=== PATIENT | male | born 1945 | race Caucasian/White ===

== ENCOUNTER → 2018-03-09 09:26 | Outpatient (CLI) | payer MEDICARE, SELFPAY ==
[2018-03-09 12:30] LABS: Anion Gap 6 (5-15); BUN 18 mg/dL (7-18); BUN/Creat Ratio 18.3 RATIO (10-20); Calcium,Total 8.8 mg/dL (8.5-10.1); Chloride 107 mmol/L (98-107); Cholesterol 166 mg/dL (200); Creatinine, Serum 0.98 mg/dL (0.70-1.30); EST Glomerular Filtration Rate 80 mL/min (>60); Est Glom Filt Rate - Afr Amer 96 mL/min (>60); Glucose 101 mg/dL (74-106); High Density Lipoprotein 43 mg/dL; PSA,Total - Annual Screen 1.15 ng/mL (0.00-4.00); Potassium 4.9 mmol/L (3.5-5.1); Sodium Level 141 mmol/L (136-145); Triglycerides 83 mg/dL; Very Low Density Lipoprotein 17 mg/dL (5-40)
== END ==
PROVIDERS: Family Provider Family Medicine; PCP Family Medicine; Visit Provider Family Medicine
DX: I10 Essential (primary) hypertension (principal); E78.00 Pure hypercholesterolemia, unspecified; Z12.5 Encounter for screening for malignant neoplasm of prostate
CPT/HCPCS: 36415; 80048; 80061; 84153; G0103

== ENCOUNTER → 2018-06-20 11:03 | Outpatient (CLI) | payer MEDICARE, SELFPAY ==
[2016-12-06 05:59] VITALS: BMI 25.0
--- NOTE | 2018-06-20 11:09 | RAD_ITS ---
STUDY: X-RAY - LEFT KNEE REASON FOR EXAM: Male, 72 years old. Osteoarthritis TECHNIQUE: 3 view(s) of the knee. COMPARISON: None. FINDINGS: Normal visualized distal femur. Normal visualized proximal tibia and fibula. Normal proximal tibiofibular articulation. There are mild degenerative changes with joint space narrowing of the medial knee compartment. Normal lateral femorotibial compartment. Normal patellofemoral articulation. The soft tissue structures are unremarkable. RAD/Knee 3 Views IMPRESSION: Mild degenerative changes with joint space narrowing of the medial knee compartment. Electronically Signed: Hong Deluca MD at 20:53 EST , Service support ,
--- NOTE | 2018-06-20 11:09 | RAD_ITS ---
STUDY: X-RAY - RIGHT KNEE REASON FOR EXAM: Male, 72 years old. Osteoarthritis TECHNIQUE: 3 view(s) of the knee. COMPARISON: None FINDINGS: Normal visualized distal femur. There is a well-defined 7 mm sclerotic focus of the medial aspect of the proximal tibial metaphysis most likely representing benign process such as bone island. Normal proximal tibiofibular articulation. There are minimal degenerative changes with joint space narrowing of the medial knee compartment. Normal lateral femorotibial compartment. Normal patellofemoral articulation. The soft tissue structures are unremarkable. RAD/Knee 3 Views IMPRESSION: Minimal degenerative changes with joint space narrowing of the medial knee compartment. Small sclerotic focus of the medial proximal tibial metaphysis most likely representing benign process such as bone island. Electronically Signed: Hong Deluca MD at 20:52 EST , Service support ,
== END ==
PROVIDERS: Family Provider Family Medicine; PCP Family Medicine; Referring Provider Family Medicine; Visit Provider Family Medicine
DX: M17.0 Bilateral primary osteoarthritis of knee (principal)
CPT/HCPCS: 73562

== ENCOUNTER → 2018-10-16 14:07 | Outpatient (CLI) | payer MEDICARE, SELFPAY ==
--- NOTE | 2018-10-16 14:10 | RAD_ITS ---
STUDY: X-RAY CHEST REASON FOR EXAM: Male, 73 years old. TECHNIQUE: 2 views COMPARISON: December 06, 2016. FINDINGS: The heart and mediastinum are within normal limits. There is mild tortuosity of the thoracic aorta. Both lung blank and costophrenic angles are clear. No pleural effusion or pneumothorax. The trachea is in the midline. The visualized bony structures are intact. The visualized upper abdomen is unremarkable RAD/Chest PA and Lateral IMPRESSION: Negative chest unchanged since 06 December 2016 Electronically Signed: Chance Mobley, at 16:23 EDT Tel , Service support ,
== END ==
PROVIDERS: Family Provider Family Medicine; PCP Family Medicine; Referring Provider Family Medicine; Visit Provider Family Medicine
DX: J15.9 Unspecified bacterial pneumonia (principal)
CPT/HCPCS: 71046

== ENCOUNTER 2019-05-13 00:20 | Emergency (ER) | payer MEDICARE, SELFPAY ==
[2019-05-13 00:21] VITALS: BP 201/96; PULSE 53; RESP 14; TEMP 36.6; O2SAT 97; BMI 25.9
[2019-05-13 00:25] VITALS: BP 183/89
--- NOTE | 2019-05-13 00:44 | ED.VIS.GI ---
History of Present Illness Chief Complaint: Flank Pain Informant: Patient - Abdominal Pain/Flank Pain Onset: Hours - 2 Context: Sudden Onset Timing: Continuous Quality: Aching Location: Left Flank Current Severity: Moderate Maximum Severity: Moderate Worsened by: Nothing Relieved by: Nothing - Nausea/Vomiting/Emesis GI Symptom: Nausea. Negative for: Vomiting - Diarrhea/Melena/Hematochezia GI Symptom: Negative for: Diarrhea, Melena, Hematochezia Associated Symptoms: Negative for: Dysuria, Frequency, Hematuria, Urgency Narrative: Sudden onset of pain in his left flank after he felt some mild discomfort in his suprapubic area that is now gone. The pain is been constant and not colicky. He has had multiple kidney stone procedures to remove them but is also passed others. He has tried nothing for the pain yet. He denies any syncope or presyncope or other symptoms such as fevers but he has had some nausea. Prior similar symptoms: Yes - Multiple prior kidney stones - Past Medical History (1) Hypertension Status: Chronic (2) Hyperlipidemia Status: Chronic (3) Kidney stones Status: Chronic Past Medical History - Allergies and Home Meds Allergies/Adverse Reactions: Allergies No Known Allergies Allergy (Verified 05/13/19 00:21) Primary Care Physician: Kiran Shaffer MD [STAFF PHYSICIAN] - 3-5 Days Marcel Santos MD [Primary Care Provider] - Surgical History: herniorrhaphy, - - Kidney stone removal Smoking Status: Never smoker Drugs: None Review of Systems General: Denies: Chills, Fever, Sweats Eyes: Denies: Visual changes - bilaterally, Diplopia ENT: Denies: Rhinorrhea, Sore throat Cardiovascular: Denies: Chest pain, Palpitations Respiratory: Denies: Dyspnea, Cough, Dyspnea on exertion Gastrointestinal: Reports: Abdominal pain - Resolved, Nausea. Denies: Vomiting, Diarrhea, Melena, Hematochezia Genitourinary: Denies: Dysuria, Hematuria, Frequency Musculoskeletal: Reports: Back pain. Denies: Extremity Pain Skin: Denies: Rash, Wounds Neurological: Denies: Headache, Weakness, Numbness Physical Exam Vital Signs/Narrative: Vital Signs Temp Pulse Resp BP Pulse Ox 05/13/19 00:25 183/89 H 05/13/19 00:21 97.9 F 53 L 14 201/96 H 97 Inital Vital Signs reviewed: Yes General: Well nourished, Well developed, No Acute Distress - Well-appearing Head: Normocephalic, Atraumatic Eyes: Perrl, EOMI ENT: Moist mucous membranes, No rhinorrhea Neck: Supple, Nontender Cardiovascular: Regular rate, Regular rhythm, No murmurs Respiratory: No distress, CTA bilaterally, Chest nontender Abdomen: Soft, Nontender, Nondistended, Normal bowel sounds. Negative for: Pulsatile mass Back: Nontender, Normal Inspection. Negative for: CVA tenderness Extremities: Nontender, No edema Skin: Normal color, No rash, No Trauma Neurological: Alert, Oriented x3, Cranial nerves II-XII grossly intact, Normal Strength, Normal Sensation, Normal Gait Psychological: Normal affect, Normal Mood Diagnostic/Tx/Re-eval Impressions Abdomen/Pelvis CT 05/13/19 01:04 IMPRESSION: Mild left hydronephrosis due to a 6.5 mm stone within the proximal left ureter, a few centimeters below the AP junction. Multiple bilateral intrarenal cysts as described above. Punctate stones within the left kidney. Questionable left-sided colitis, clinical correlation recommended. No acute appendicitis or bowel obstruction. Electronically Signed: Tana Tejada MD at 1:52 EST , Service support , 05/13/19 01:04 CT Abd [Abdomen/Pelvis without Cont] [CT] Stat Laboratory Results 05/13/19 00:30 Urine Color Yellow Urine Clarity Cloudy Urine pH 5.0 Ur Specific [place] 1.025 Urine Protein 30 H Urine Glucose (UA) Normal Urine Ketones Negative Urine Occult Blood 250 H Urine Nitrite Negative Urine Bilirubin Negative Urine Urobilinogen Normal Ur Leukocyte Esterase 25 H Urine RBC 25-50 SEEN Urine WBC 0-5 SEEN Ur Squamous Epith Cells 0 SEEN Urine Bacteria RARE Urine Mucus 0 SEEN - Medical Decision Making Urinalysis shows no acute infection. He has a 6.5 mm left proximal ureteral stone, which may or may not pass on its own. However, after only an injection of Toradol and some oral Zofran he is feeling much better and is comfortable driving himself home since his pain is well controlled. He will be given a prescription for Percocet, urine strainers to go, and advised to follow-up with his urologist after the weekend if he does not pass the stone. We discussed reasons to return, he is comfortable with that plan. Of note his blood pressure was 200 systolic upon arrival. After treating his pain it is down to 180. He is advised to take his blood pressure medication when he gets home and to follow-up for recheck. ED Disposition - Plan for ED Patient: Disposition: Home or Assisted Living Diagnosis: Ureteral colic, Urolithiasis Instructions: KIDNEY STONE w/ Colic Prescriptions: Oxycodone HCl/Acetaminophen [Percocet 5/325] 1 tab PO Q6H PRN PRN 3 Days #12 tab PRN Reason: Pain Prescription Printed Referrals: Marcel Santos MD [Primary Care Provider] - Kiran Shaffer MD [STAFF PHYSICIAN] - 3-5 Days
[2019-05-13] MEDS: Ondansetron ODT 4 MG Tablet 8 MG PO (00:59)
[2019-05-13] MEDS: Ketorolac 30 MG/ML Syringe IM (01:00)
--- NOTE | 2019-05-13 01:04 | CT_ITS ---
STUDY: CT ABDOMEN AND PELVIS WITHOUT CONTRAST REASON FOR EXAM: Male, 73 years old. LT FLANK PAIN SINCE 830PM -- HX:KIDNEY STONES WITH RETRIVAL,HLD,HTN,HERNIA REPAIR RADIATION DOSAGE (If Supplied By Facility): CTDIvol = ( 9.25 ) mGy, DLP = ( 443.59 ) mGycm TECHNIQUE: Transaxial images were obtained from the dome of the diaphragm to the symphysis pubis without oral contrast, and without intravenous contrast. Sagittal and coronal images were reconstructed. Individualized dose optimization techniques were used for this CT. COMPARISON: 12/06/16. FINDINGS: Mild posterior dependent atelectasis, remainder of the lung bases are clear. Heart is border line enlarged. There are 3 low-attenuation structures within the left liver lobe with Hounsfield units suggestive of cysts in largest measuring 4.6 x 2.6 cm, the largest being seen just below the hemidiaphragm. Slightly over distended gallbladder otherwise normal gallbladder and extrahepatic biliary system. Normal spleen. Normal pancreas. Normal bilateral adrenal glands. Multiple low-attenuation structures within the right kidney, largest seen within the middle pole and measuring 4.3 x 4.0 x 4.7 cm. No hydronephrosis or intrarenal stone. There are multiple left-sided intrarenal cysts, largest measuring 6.6 x 6.7 cm x 6.2 cm. There is mild left-sided hydronephrosis due to a proximal left ureteral stone measuring 6.5 mm and seen approximately 2.4 cm below the UP junction. There are 2 punctate intrarenal stones within the upper pole each measuring approximately 2.3 mm. There is mild hiatal hernia. Normal small intestine. Diffuse mild thickening of the wall throughout the transverse and descending colon suggestive of colitis. The appendix is visualized and appears normal. There is diffuse atherosclerotic calcification of the abdominal aorta, without a demonstrated aneurysm. Normal inferior vena cava. Normal retroperitoneum. Normal urinary bladder. Normal visualized prostate gland. There is a minimal right-sided fat-containing inguinal hernia versus small scrotal lipoma. There is mild anterolisthesis of L4 on L5 with no pars defect. There is spinal stenosis at this level. CT/Abdomen/Pelvis without Cont IMPRESSION: Mild left hydronephrosis due to a 6.5 mm stone within the proximal left ureter, a few centimeters below the AP junction. Multiple bilateral intrarenal cysts as described above. Punctate stones within the left kidney. Questionable left-sided colitis, clinical correlation recommended. No acute appendicitis or bowel obstruction. Electronically Signed: Tana Tejada MD at 1:52 EST , Service support ,
[2019-05-13 01:08] LABS: Mucous, Urine 0 SEEN /hpf (<or=2+); Squamous Epithelial Cells - UA 0 SEEN /hpf (0-5)
[2019-05-13 01:10] LABS: Color, Urine Yellow (Yellow); Glucose, Dipstick Normal (Normal); Ketone-Dipstick Negative (Negative); Leukocyte Esterase-Dipstick 25 /ul (Negative); Nitrite-Dipstick Negative (Negative); Occult Blood-Urine 250 /ul (Negative); Protein-Dipstick 30 mg/dl (Negative); Specific Gravity, Urine 1.025 (1.002-1.030); Urine Bilirubin Dipstick Negative (Negative); Urine Clarity Cloudy (Clear); Urine Urobilinogen Normal (Normal)
[2019-05-13 01:32] LABS: Bacteria RARE /hpf (None Seen); Red Blood Cells-Urine 25-50 SEEN /hpf (0-5); White Blood Cells 0-5 SEEN /hpf (0-5)
[2019-05-13 02:25] VITALS: BP 139/84; PULSE 49; RESP 16; O2SAT 95
== END 2019-05-13 02:30 | disposition home or self-care (01) ==
PROVIDERS: Emergency Provider Emergency Medicine; PCP Family Medicine
DX: N13.2 Hydronephrosis with renal and ureteral calculous obstruction (principal); I10 Essential (primary) hypertension; E78.5 Hyperlipidemia, unspecified; Z79.82 Long term (current) use of aspirin; Z79.899 Other long term (current) drug therapy; Z87.442 Personal history of urinary calculi
CPT/HCPCS: 74176; 81001; 96372; 99283

== ENCOUNTER 2019-05-25 11:09 | Day surgery (SDC) | payer MEDICARE, SELFPAY ==
--- NOTE | 2019-05-25 11:17 | RAD_ITS ---
STUDY: X-RAY - ABDOMEN/PELVIS REASON FOR EXAM: Male, 73 years old. PATIENT HAVING ESWL TODAY. LEFT SIDED KIDNEY STONE. TECHNIQUE: Single AP view of the abdomen / pelvis. COMPARISON: None. FINDINGS: Normal visualized lung bases. There is a moderate amount of colonic fecal material. The visualized liver, spleen and kidneys are grossly normal in size and morphology. There are calcified phleboliths in the pelvis. There is a 5 mm calcification in the left hemipelvis. This may represent the previously seen left ureteral calculus. There are diffuse degenerative changes of the visualized lumbar spine. RAD/Abdomen Single View IMPRESSION: Phleboliths are seen in the pelvis although there is a 5 mm calcification in the medial aspect of the left hemipelvis. This may represent a distal left ureteral calculus. Electronically Signed: Mo Mares, at 11:43 EST , Service support ,
[2019-05-25 11:42] VITALS: BP 162/85; PULSE 55; RESP 15; TEMP 36.7; O2SAT 100; BMI 26.4
[2019-05-25] MEDS: Lactated Ringers 1,000 ML 100 ML IV ×2 (11:50→13:55)
[2019-05-25] MEDS: Cefazolin 2 GM in 0.9% Normal Saline 100 ML IV (13:06)
--- NOTE | 2019-05-25 13:58 | OP.PCM_ITS ---
Report of Operation Date of Procedure: 05/25/19 Pre-Operative Diagnosis: Left ureteral calculi in the distal ureter Post-Operative Diagnosis: The same Surgery/Procedure Performed:: Cystoscopy, placement of left ureteral catheter, left extracorporeal shockwave lithotripsy, no stent. Description of Surgical Findings:: 73-year-old male with a stone in the distal left ureter on KUB, he has not passed a stone presents to the operating room today for treatment of the stone with shockwave lithotripsy.. 73-year-old male was taken back to the operating room after smooth induction of general anesthesia he was placed in dorsolithotomy position. The penis and testicles were prepped in usual sterile fashion. Went into the bladder with a 21 Romanian rigid cystourethroscope. The entire length the urethra is normal prostate was normal, once inside the bladder I cannulated the left ureteral orifice with a Glidewire and a Pollack catheter we could then see the wire and the Pollick catheter go past the stone in the distal ureter once we confirmed this this was the stone we then removed the Pollick catheter and then we treated the stone with shockwave lithotripsy a total of 3000 shockwaves were delivered to the stone at a rate of 90 and then we increase the rate in 120 power ranging from 5 to 9 kV at the end of the treatment cycle the stone it broken up really well. Patient anesthetic was reversed no stent was placed is taken back to PACU in good condition I can see him back in a few weeks with an x-ray. Type of Anesthesia:: General Drains: none - Admit VTE Documentation VTE Present on Admission: No VTE Mechan Device Prophylaxis: SCD's
--- NOTE | 2019-05-25 13:58 | PCM.DC.URO ---
Discharge Diet: Light diet - advance as tolerated Discharge Activity: Return to Normal Activity, May not drive while taking narcotic pain medications. Call your doctor if you observe: Fever of 101 or Higher Allergies/Adverse Reactions: Allergies No Known Allergies Allergy (Verified 05/25/19 11:32) Medications to take at Discharge Aspirin E.C. [Ecotrin] 81 mg PO DAILY@0800 01/22/14 Atenolol [Tenormin (beta arabella)] 50 mg PO DAILY 01/22/14 Atorvastatin Calcium [Lipitor] 10 mg PO QHS 01/22/14 Ciprofloxacin [Cipro] 500 mg PO BID #6 tab 05/25/19 Hydrocodone/Acetaminophen [[place] 5-325 Tablet] 1 each PO Q4H PRN PRN 5 Days #14 tablet 05/25/19 The following prescriptions were given: Ciprofloxacin [Cipro] 500 mg PO BID #6 tab Transmission Status: Pending to [facility] Hydrocodone/Acetaminophen [[place] 5-325 Tablet] 1 each PO Q4H PRN PRN 5 Days #14 tablet PRN Reason: pain] Transmission Status: Sent to [facility] Orders to be completed after discharge: Abdomen Single View [RAD] Time Frame: 05/25/19, Facility: [facility], Location: Radiology, [facility] Primary Care Physician: Marcel Santos MD [Primary Care Provider] - Test Results: Test results from this visit will be discussed in further detail at your follow-up appointment, if applicable. Please Follow Up With: Kiran Shaffer MD When: in 2 weeks, please call to make an appointment.
[2019-05-25 14:02] VITALS: BP 147/87; BP 163/85; PULSE 60; RESP 18; TEMP 36.2; O2SAT 97
[2019-05-25 14:15] VITALS: BP 152/88; BP 163/85; PULSE 55; RESP 16; O2SAT 96
[2019-05-25] MEDS: Ketorolac 15 MG/ML Vial IV (14:18)
[2019-05-25 14:30] VITALS: BP 150/96; BP 163/85; PULSE 58; RESP 16; TEMP 36; O2SAT 97
[2019-05-25 15:36] VITALS: BP 161/87; BP 163/85; PULSE 49; RESP 16; TEMP 35.9; O2SAT 97
== END 2019-05-25 15:45 | disposition home or self-care (01) ==
LOC: SDC 11:11 → AC 11:13
PROVIDERS: PCP Family Medicine; Referring Provider Urology; Visit Provider Urology
PROC: (CPT 50590; principal; 2019-05-25 13:20)
DX: N20.1 Calculus of ureter (principal); I10 Essential (primary) hypertension; E78.00 Pure hypercholesterolemia, unspecified; M19.90 Unspecified osteoarthritis, unspecified site; N40.1 Benign prostatic hyperplasia with lower urinary tract symptoms; Z79.82 Long term (current) use of aspirin; Z79.899 Other long term (current) drug therapy; Z87.891 Personal history of nicotine dependence
CPT/HCPCS: 00873; 50590; 74018; J7120; C1769; J2405

== ENCOUNTER 2019-06-01 09:07 | Emergency (ER) | payer MEDICARE, SELFPAY ==
[2019-06-01 09:09] VITALS: BP 162/87; PULSE 54; RESP 17; TEMP 36.4; O2SAT 98; BMI 26.5
--- NOTE | 2019-06-01 09:24 | EKG12_ITS ---
Test Reason : CP Blood Pressure : / mmHG Vent. Rate : 050 BPM Atrial Rate : 050 BPM P-R Int : 180 ms QRS Dur : 104 ms QT Int : 428 ms P-R-T Axes : 046 -52 -12 degrees QTc Int : 390 ms Sinus bradycardia Possible Left atrial enlargement Incomplete right bundle branch block Left anterior fascicular block Left ventricular hypertrophy Nonspecific ST abnormality Abnormal ECG Confirmed by ZULY DEL CASTILLO, BRENDA ([id number]), dictionary editor JP NIEVES ([id number]) on 06/04/2019 10:53:40 AM Referred By: JOANNA Confirmed By:OSCAR CARUSO MD
--- NOTE | 2019-06-01 09:24 | RAD_ITS ---
STUDY: X-RAY CHEST REASON FOR EXAM: Male, 73 years old. CP, SOB X 6 WKS, INTERMITTENT TECHNIQUE: Single AP portable view of the chest. COMPARISON: 10/16/2018 FINDINGS: EKG leads overlie the chest The lungs are clear and expanded. There is no demonstrated pleural abnormality. Normal size heart. Normal mediastinum and meka. Normal visualized pulmonary arteries. Normal visualized aortic arch and descending thoracic aorta. Normal visualized thoracic spine. Normal visualized ribs, clavicles, and shoulders. There is no demonstrated abnormality of the visualized soft tissue structures of the upper abdomen. RAD/Chest 1 View (Portable) IMPRESSION: Normal x-ray examination of the chest. Electronically Signed: Efra Ricketts MD at 9:49 EST , Service support ,
--- NOTE | 2019-06-01 09:25 | ED.DCSUM_ITS ---
History of Present Illness Chief Complaint: Chest Pain Informant: Patient Onset: Weeks Timing: Intermittent Current Severity: Mild Maximum Severity: Mild Narrative: Patient presents with chief complaint of chest pain and shortness of breath for the past several weeks. He reports mild shortness of breath at rest that gets worse with exertion. He has chronic chest tightness that does not seem to change with exertion. He has been seen by his primary care physician. A chest x-ray was unremarkable and an echocardiogram was normal. He is scheduled for a stress echo to be performed next week. He is then scheduled to follow-up with cardiology at the end of the month. Patient does report a history of hypertension, high cholesterol, and kidney stones. He denies risk factors for DVT or PE. On review of records patient did have an abnormal stress echo here in 2014. He states he followed up at the [facility] and had an dobutamine stress test that was normal. - Past Medical History (1) Hyperlipidemia Status: Chronic (2) Hypertension Status: Chronic (3) Kidney stones Status: Resolved Past Medical History - Allergies and Home Meds Allergies/Adverse Reactions: Allergies No Known Allergies Allergy (Verified 06/01/19 09:08) Primary Care Physician: Marcel Santos MD [Primary Care Provider] - Prior records reviewed: Yes Surgical History: herniorrhaphy, - - Kidney stone removal Smoking Status: Former smoker Review of Systems General: Denies: Chills, Fever Eyes: Denies: Visual changes - bilaterally ENT: Denies: Bilateral ear pain Cardiovascular: Reports: Chest pain Respiratory: Reports: Dyspnea. Denies: Cough Gastrointestinal: Denies: Abdominal pain, Nausea, Vomiting, Diarrhea Genitourinary: Denies: Dysuria Musculoskeletal: Denies: Swelling, Extremity Pain Skin: Denies: Rash Neurological: Denies: Headache, Parasthesia, Numbness Hematologic: Denies: Easy bruising, Easy bleeding Allergy: Denies: Uticaria Physical Exam Vital Signs/Narrative: Vital Signs Temp Pulse Resp BP Pulse Ox 06/01/19 09:09 97.6 F L 54 L 17 162/87 H 98 Inital Vital Signs reviewed: Yes General: Well nourished, Well developed Head: Normocephalic ENT: Moist mucous membranes Neck: Supple Cardiovascular: Bradycardia Respiratory: No distress, CTA bilaterally Abdomen: Soft, Nontender, Nondistended Extremities: Negative for: Edema, Calf Tenderness Skin: Normal color Neurological: Alert, Oriented x3 Psychological: Normal affect Diagnostic/Tx/Re-eval Impressions Chest X-Ray 06/01/19 09:24 IMPRESSION: Normal x-ray examination of the chest. Electronically Signed: Efra Ricketts MD at 9:49 EST , Service support , Chest CTA 06/01/19 10:14 IMPRESSION: No demonstrated PE, or thoracic aortic aneurysm or dissection Chronic interstitial changes with evidence of chronic bronchitis but no superimposed infiltrate or effusion Calcified coronary vessels Degenerative bony changes Hepatic cysts Electronically Signed: Efra Ricketts MD at 11:04 EST , Service support , 06/01/19 09:24 Chest 1 View (Portable) [RAD] Stat 06/01/19 10:14 CTA Chest W/WO Contrast [CT] Stat Laboratory Results 06/01/19 06/01/19 06/01/19 09:40 09:40 09:40 WBC 6.0 RBC 5.62 Hgb 17.4 H Hct 52.2 MCV 92.9 MCH 31.0 MCHC 33.3 RDW Std Deviation 40.6 RDW Coeff of [place] 11.9 Plt Count 294 MPV 9.2 Immature Gran % (Auto) 1.200 H Neut % (Auto) 65.2 Lymph % (Auto) 17.1 L [place] % (Auto) 13.2 H Eos % (Auto) 2.5 Baso % (Auto) 0.8 Absolute Neuts (auto) 3.9 Absolute Lymphs (auto) 1.03 Nucleated RBC % 0 D-Dimer Quant (PE/DVT) 0.76 H* Sodium 141 Potassium 4.5 Chloride 109 H Carbon Dioxide 29.0 Anion Gap 3 L BUN 25 H Creatinine 1.10 Estim Creat Clear Calc 56.75 Est GFR (MDRD) Af Amer 85 Est GFR (MDRD) Non-Af 70 BUN/Creatinine Ratio 22.7 H Glucose 114 H Calcium 9.3 Troponin I < 0.015 - EKG Initial EKG Interpretation: Sinus Bradycardia - Sinus bradycardia 50 bpm. Incomplete right bundle branch block noted. Prior: Unchanged - Medical Decision Making Patient received aspirin on arrival here. Test results are discussed with him. He does have evidence of significant coronary artery calcification on CAT scan. I recommended observation for stress test or heart cath. Because the patient's previous work-up is all been through [facility] and he is scheduled to see cardiology in [place] patient would prefer to be transferred to [facility] facility. I spoke with hospitalist at [place] and patient has been accepted in transfer. ED Disposition - Plan for ED Patient: Disposition: Acute Care Hospital - Other Diagnosis: Chest pain Referrals: Marcel Santos MD [Primary Care Provider] -
[2019-06-01] MEDS: Aspirin 81 MG TAB.CHEW 324 MG PO (09:34)
[2019-06-01 09:43] VITALS: O2SAT 98
[2019-06-01] MEDS: 0.9% Normal Saline 1,000 ML 150 ML IV (09:44)
[2019-06-01 09:51] LABS: Absolute Lymphocyte Count 1.03 X10^3/uL (0.83-4.51); Absolute Neutrophil Count 3.9 X10^3/uL (2.0-7.7); Basophil# 0.05 X10^3/uL; Basophil% 0.8 % (0-1); Eosinophil# 0.15 X10^3/uL; Eosinophils% 2.5 % (0-5); Hematocrit 52.2 % (40-54); Hemoglobin 17.4 g/dL (13.0-16.5); Lymphocyte # 1.03 X10^3/ul (4.0); Lymphocyte % 17.1 % (19-41); Mean Corp Hgb Conc 33.3 g/dL (32-36); Mean Corpuscular Volume 92.9 fL (80-94); Mean Platelet Vol. 9.2 fl (6.2-12.0); Monocyte% 13.2 % (0-10); NRBC Flagged by Analyzer 0 % (0-5); Neutrophil # 3.94 X10^3/uL (2.7-7.7); Neutrophil % 65.2 % (47-70); Platelet Count 294 K/mm3 (150-450); RBC Distribution Width CV 11.9 % (11.6-14.6); RBC Distribution Width SD 40.6 fl (35.1-43.9); Red Blood Count 5.62 M/mm3 (4.6-6.2)
[2019-06-01 10:03] LABS: Anion Gap 3 (5-15); BUN 25 mg/dL (7-18); BUN/Creat Ratio 22.7 RATIO (10-20); Calcium,Total 9.3 mg/dL (8.5-10.1); Chloride 109 mmol/L (98-107); EST Glomerular Filtration Rate 70 mL/min (>60); Est Glom Filt Rate - Afr Amer 85 mL/min (>60); Estimated Creatinine Clearance 56.75 ml/min; Glucose 114 mg/dL (74-106); Potassium 4.5 mmol/L (3.5-5.1); Sodium Level 141 mmol/L (136-145)
[2019-06-01 10:09] LABS: D-Dimer Quantitative (DVT/PE) 0.76 FEU/ug/m (0.27-0.49)
--- NOTE | 2019-06-01 10:14 | CT_ITS ---
STUDY: CTA CHEST REASON FOR EXAM: Male, 73 years old. CHEST PAIN X SEVERAL WEEKS RADIATION DOSAGE (If Supplied By Facility): CTDIvol = ( 15.77 ) mGy, DLP = ( 454.70 ) mGycm TECHNIQUE: The examination was performed with the intravenous administration of 100ML ISOVUE 370. Post-processing of the angiographic images was performed, with multiplanar reformation and 3D reconstruction. Individualized dose optimization techniques were used for this CT. COMPARISON: None. FINDINGS: Normal enhancement of the main pulmonary artery and right and left pulmonary arteries. Normal enhancement of the bilateral peripheral pulmonary arteries. There is no demonstrated pulmonary embolism. There is atherosclerotic calcification of the aortic arch with tortuosity. There is no demonstrated aortic dissection. Normal heart and pericardium. There are calcifications of the coronary arteries. Normal mediastinum. Normal hilar regions. There is peribronchial thickening. The lungs are well expanded. Chronic interstitial changes in both lung blank, no superimposed infiltrate or effusion Normal pleura. Normal chest wall structures. There are degenerative changes of thoracic spine. Limited cuts through the upper abdomen show multiple simple cysts within the liver and likely upper pole of the right kidney CT/CTA Chest W/WO Contrast IMPRESSION: No demonstrated PE, or thoracic aortic aneurysm or dissection Chronic interstitial changes with evidence of chronic bronchitis but no superimposed infiltrate or effusion Calcified coronary vessels Degenerative bony changes Hepatic cysts Electronically Signed: Efra Ricketts MD at 11:04 EST , Service support ,
[2019-06-01 11:19] VITALS: BP 153/91; PULSE 48; RESP 21; O2SAT 98
[2019-06-01 13:00] VITALS: BP 182/82; PULSE 50; RESP 14; O2SAT 99
[2019-06-01 13:11] VITALS: BP 182/82; PULSE 50; RESP 14; O2SAT 99
== END 2019-06-01 13:35 | disposition short-term general hospital (02) ==
PROVIDERS: Emergency Provider Emergency Medicine; PCP Family Medicine
DX: R07.9 Chest pain, unspecified (principal); I45.10 Unspecified right bundle-branch block; R00.1 Bradycardia, unspecified; I10 Essential (primary) hypertension; E78.5 Hyperlipidemia, unspecified; Z79.82 Long term (current) use of aspirin; Z79.899 Other long term (current) drug therapy; Z87.442 Personal history of urinary calculi; Z87.891 Personal history of nicotine dependence
CPT/HCPCS: 71045; 71275; 80048; 84484; 85025; 85379; 93005; 96360; 96361; 99285; J7030; Q9967

== ENCOUNTER → 2019-06-19 10:58 | Outpatient (CLI) | payer MEDICARE, SELFPAY ==
[2019-06-01 09:09] VITALS: BMI 26.5
--- NOTE | 2019-06-19 11:15 | RAD_ITS ---
STUDY: X-RAY - ABDOMEN/PELVIS REASON FOR EXAM: Male, 73 years old. URINARY CALCULUS TECHNIQUE: Single AP view of the abdomen / pelvis. COMPARISON: CT scan 05/13/2019, radiograph 05/25/2019. FINDINGS: Normal visualized lung bases. No definite renal or ureteral stones. Stable appearance of calcifications in the pelvis that are most likely phleboliths. There is an unremarkable bowel gas pattern. There is no demonstrated free abdominal air. The visualized liver, spleen and kidneys are grossly normal in size and morphology. Normal soft tissue structures. Normal visualized osseous structures. RAD/Abdomen Single View IMPRESSION: No definite renal or ureteral stones. Electronically Signed: Eren Shaw MD at 17:06 EST , Service support ,
== END ==
PROVIDERS: PCP Family Medicine; Referring Provider Urology; Visit Provider Urology
DX: N20.9 Urinary calculus, unspecified (principal)
CPT/HCPCS: 74018

== ENCOUNTER → 2019-06-21 16:07 | Outpatient (CLI) | payer MEDICARE, SELFPAY ==
[2019-06-01 09:09] VITALS: BMI 26.5
== END ==
PROVIDERS: PCP Family Medicine; Referring Provider Urology; Visit Provider Urology
DX: R30.0 Dysuria (principal)
CPT/HCPCS: 87077; 87086; 87088; 87186

== ENCOUNTER → 2019-07-05 09:57 | Outpatient (CLI) | payer MEDICARE, SELFPAY ==
--- NOTE | 2019-07-05 10:08 | CR.HP_ITS ---
CR - History & Physical - General Arrival date:: 07/05/19 Arrival time:: 10:00 Date of Referral:: 06/28/19 Date of CR Evaluation:: 07/05/19 Referring Physician: DR. MANJU LEWIS ([facility]) Primary Diagnosis: S/P CABG x 3 - History of Present Cardiac Event Onset Date: Enter Onset Date of cardiac illnesses in Comment field below Coronary Artery Bypass Graft:: Yes - 06/22/2019 Type of Symptoms:: Formerly exercised routinely at [facility], and hiking weekly noticed getting more shortness of breath during this activity and experienced very slight pain. CHest Xray adn echocardiogram were both negative, scheduled stress test, but before the stress test came to the emergency room had a Cardiac C/T and transfered to the [facility]. - Medications Home Medications: Ambulatory Orders Medication Instructions Recorded Aspirin E.C. [Ecotrin] 81 mg PO DAILY@0800 01/22/14 Atenolol [Tenormin (beta arabella)] 50 mg PO DAILY 01/22/14 Atorvastatin Calcium [Lipitor] 10 mg PO QHS 01/22/14 Acetaminophen [Tylenol Extra 500 - 1,000 mg PO Q6H PRN PRN 07/05/19 Strength] Amiodarone HCl [Cordarone] 200 mg PO DAILY 07/05/19 Ferrous Fumarate/Folic Acid 1 each PO 07/05/19 [Hemocyte-F Tablet] Furosemide [Lasix] 20 mg PO DAILY 07/05/19 Ondansetron HCl [Zofran] 4 mg PO PRN PRN 07/05/19 Potassium Chloride [Klor-Con M20] 20 meq PO 07/05/19 Sennosides/Docusate Sodium [Colace 1 each PO 07/05/19 2-in-1 Tablet] Tamsulosin HCl [Flomax] 0.4 mg PO 07/05/19 - Allergies Allergies/Adverse Reactions: Allergies No Known Allergies Allergy (Verified 06/01/19 09:08) - Sleep Disorder Evaluation Hx of Sleep Apnea: Yes Do you snore loudly (louder than talking or can be heard through closed doors)?: Yes - HARLEY on home CPAP. Advanced Directives - Advanced Directives Power of Leaf Stamper: Yes Living Will: Yes Advance Directives Information Provided: No Advance Directives on File: No DNR Order?:: No - MOLST See MOLST form: No Past Medical History - Past Medical Illness Medical History: Past Medical History (Last Updated 07/05/19 @ 10:27 by Bertram Gould, PEYTON, PEOPLE MANAGER, BS) Acne rosacea L71.9 Atherosclerotic heart disease of [place] coronary artery without angina pectoris I25.10 Dyslipidemia E78.5 Dyspnea on exertion R06.09 Former smoker, stopped smoking in distant past Z87.891 Kidney stones N20.0 HARLEY on CPAP G47.33, Z99.89 Hypertension I10 - Past Surgical History Surgical History: Past Surgical History (Last Updated 07/05/19 @ 10:27 by Bertram Gould, PEYTON, PEOPLE MANAGER, BS) H/O hernia repair Z98.890, Z87.19 H/O lithotripsy Z98.890 Hx of tonsillectomy Z90.89 Surgical History: herniorrhaphy, - - Kidney stone removal Social History - Smoking History Smoking Status: Former smoker Hx Tobacco Use: Yes Hx Smoking Exposure: No - Alcohol Use Alcohol Usage: No - Substance Abuse Hx Substance Use: No - Occupation Occupation (List type of work in comments):: Retired - Hobbies, Recreation, Social Activities Hobbies: Hiking, Walking, Exercise, Other - Part of a men's group support system. Attend [facility] meetings Recreational Activities: I am able to engage in most, but not all activities Social Environment - Status Marital Status: - Current Living Arrangements Living Environment:: Spouse - Children How many children do you have?: 3 - all adult children Do any of your children live nearby?: Yes - 1-in [place], 1-son in [facility], 1-son in [facility] - Safety Do you feel safe in your surroundings?: Yes - Assistance Do you need any assistance at home?: NONE Review of Systems - Review of Systems Hints: Right click = Denies ([place]ash). Left click = Reports ([place]) Review of Present Symptoms: Reports: Operative Discomfort - little tingling cessation in chest at incisional site., Wound Healing, Fatigue - still have so me, Appetite - Normal, Sleep - Normal. Denies: Shortness of Breath at Rest, Shortness of Breath with Exertion, Dizziness/Lightheadedness, Appetite - Special Diet, Sexual Changes - Pain Is Patient Pain Free?: Yes Pain Location: none Pain Level: 0/10 Risk Factor Assessment - Chief Complaint Chief Complaint: 73 [address]R OLD MALE OF DR. MANJU LEWIS WHOPRESENTST O CR TODAY FOLLOWING RECENT CABG. - Vital Signs Temperature: 98.5 F Respiratory Rate: 14 Pulse Ox: 96 Blood Pressure: 140/80 Nailbeds:: PINK - Pulse Pulse Rate: 75 Pulse Rhythm: Regular - Hypertension How long have you been treated?: 15 years if not a little more; same with the cholesterol Blood Pressure Sitting - Left Arm: 140/80 - Stress Stress: Recent, Home/Family - has a lot of health issues, and recent illness of myself compounded that concern - Diabetes Nutrition Referral for Diabetes: No - Obesity Height: 5 ft 7 in Weight:: 165 lb Weight in Pounds: 165.0 lbs Weight Source: Standing Scale Body Mass Index (BMI): 25.8 Nutritional Referral for Obesity: No - Physical Inactivity Physical Inactivity: Reg Exercise 30 min/day - 1.0 - 1.4 MILES DAILY 25-28 MINUTES. - Risk Stratification Risk Guidelines: Lowest Risk: Risk Factor for Smoking, Risk Factor for Dyslipidemia, Risk Factor for Diabetes, Risk Factor for Obesity, Risk Factor for Sedentary Lifestyle, Risk Factor for Depression, Highest Risk: Risk Factor for Hypertension - For Smoking Smoking Risk Guidelines: Smoking Low Risk: None or quit greater than 6 months ago. Smoking Moderate Risk: Smoker or quit 6 months or less ago. Smoking High Risk: Smoker - For Dyslipidemia Dyslipidemia Risk Guidelines: Low Risk: Moderate Risk: High Risk: 15-25% fat 25.1-29% fat >/= 30% fat. <7% sat fat 7-9% sat fat >9% sat fat. <150 mg chol 150-299 mg chol >/= 300 mg chol. LDL <100 LDL 100-129 LDL >/= 130. Chol/HDL ratio <5.0 Chol/HDL ratio 5.0-6.0 Chol/HDL ratio >6.0. Triglycerides <100 Triglycerides 100-149 Triglycerides >/= 150 - For Diabetes Mellitus Diabetes Risk Guidelines: Diabetes Low Risk: HgA1c <6.5% and/or FBG <120. Diabetes Moderate Risk: HgA1c 6.6-7.9% and/or FBG 120-180. Diabetes High Risk: HgA1c >/= 8% and/or FBG >180 - For Obesity/Overweight Obesity/Overweight Risk Guidelines: Obesity Low Risk: BMI <25.0. Obesity Moderate Risk: BMI 25-29.9. Obesity High Risk: BMI >/= 30.0 - For Hypertension Hypertension Risk Guidelines: Hypertension Low Risk: Systolic <120 and Diastolic <80. Hypertension Moderate Risk: Systolic 120-139 and Diastolic 80-89. Hypertension High Risk: Systolic >/= 140 and Diastolic >/= 90 - For Sedentary Lifestyle Sedentary Lifestyle Risk Guidelines: Sedentary Lifestyle Low Risk: >/= 1,500 kcal/week. Sedentary Lifestyle Moderate Risk: 700-1,499 kcal/week. Sedentary Lifestyle High Risk: < 700 kcal/week - For Depression Depression Risk Guidelines: Depression Low Risk: Not clinically depressed. Depression Moderate Risk: Mildly depressed. Depression High Risk: Clinically depressed Motivation - Motivation to Participate On a scale of 1 to 10, how prepared are you to commit to attending program?: 10 What do you see as barriers to successfully being able to complete the program?: none What do you see as the benefits of succesfully completing the program? In other words, what do you hope to get out of participating in the program?: getting back to my nromal life, resuming hiking exercise routinely Are there issues you are dealing with that will interfere with completing the program?: none Do you have a spouse or signficant other, family or friends who will help support you to complete the program?: yes
--- NOTE | 2019-07-05 10:09 | PCM.CR.ITP ---
Diagnosis - General Information Admitting Diagnosis: S/P CABG x 3. Personal Learning Style:: Audio/Visual, Written Barriers to Learning: Vision Impairment Stage of change r/t lifestyle modifications:: Action Gave educational material for:: Treating Heart Disease, Emotions & Heart Disease, Stress Management & Relaxation, Sleep Disorders & Heart Disease, How The Heart Works, What it means to have Heart Disease, How Coronary Artery Disease is Diagnosed, Heart Procedures, What Heart Medications Do, Risk Factors & Modifications, Living an Active Life, Nutrition - Education/Goals Individual Counseling: Initial Assessment: Abnormal Cholesterol Levels, High Blood Pressure Cardiac Rehabilitation Goals: 1. Maintain the individual as the primary focus of care. 2. To improve the patient's quality of life. 3. Identification of cardiac risk factors and provide cardiac risk factor management. 4. Enhance the psychosocial status of the patient. 5. Reconditioning enough to allow the patient to resume customary activities. 6. Control symptoms of cardiac disease Scale for measuring improvement of personal goals: Enter appropriate number in Comments. 2 = Unchanged. 3 = Slightly Better. 4 = Moderate Improvement. 5 = Met my Goal Exercise - Initial Assessment - Visit Date of Eval: 07/05/19 Session #:: 0 - INITIAL EVALUATION Mets: Pre-: >7 METS for 30 minutes by discharge - Physician Prescribed Exercise Modalities: Treadmill, Airdyne, NuStep Frequency: 3x/week for 12 weeks [36 sessions] Intensity: 60-80% of age predicted maximum heart rate reserve Current METSs:: 3.0 Target Heart Rate:: 96-125 EKG Type: SINUS BRADYCARDIA - Outcomes & Goals Goals:: Verbalizes understanding of THR, RPE & goal METS by session 6, Documents in home exercise log/reports 30 min aerobic 5 day/wk by DC, Demonstrates accurate pulse taking by DC - Intervention & Plan Exercise Program Goals: Instruct on personal THR & RPE, Instruct on MET level & personal MET goal, Show patient to take own pulse /validate performance until accurate, Instruct on home exercise - Physical Activity Home Exercise Physical Activity - Home Exercise: Safe Exercise, Warm-up, Self-monitoring, Cool-Down, Home Exercise > 30 min Daily, Sitting Time <3 hours/daily - Outcomes & Goals Outcomes/Goals: Demonstrates correct Warm-up/exercise Cool-Down (S3) if = 2.5 METs, Verbalizes symptoms of exercise intolerance by Session 3 (S3), Demonstrate safe equipment use (S3) & follows exercise prescrition (6) - Intervention & Plan Plan/Intervention: Instruct warm-up & cool-down if exercising at > 2 METs, Instruct on symptoms of exercise intolerance & actions to take, Assess intial functional capacity & safety risk Nutrition - Initial Assessment - Program Goals Nutrition Program Goals: LDL <100 optimal. 100 - 129 Near optimal. 130 - 159 Borderline High. 160 - 189 High. Total Cholesterol <200 desirable. 200 - 239 Borderline High. >/= 240 High. HDL < 40 Low >/=60 High. Triglycerides <150 desirable. <199 optimal. VlDL 5 - 40. HgbA1C <7%. BMI <25 Patient has diagnosis of Hyperlipidemia (ICD E78)?: Yes - Visit Date of Assessment:: 07/05/19 - Cholesterol/Lipids Triglycerides (mg/dL): 0 - NO LIPID PROFILE AVAILABLE Determine presence & major risk factors that modify LDL goal: Hypertension or hypertensive medication, Age men > 45 years; women >/= 55 years Outcomes/Goals: Pt IDs own risk factors & lifestyle modifications by Session 10, Verbalizes symptoms of angina & response by session 3., Pt independently manages Intervention/Plan: Instruct on personal lipid levels & lipid goals/NCEP guidelines, Instruct on cholesterol Referral to dietitian:: Yes - Diabetes (Other Core Measures) Diabetes Type: Not Applicable - Weight Mgt (Other Care) Not Applicable: Yes Height: 5 ft 7 in Weight:: 165 lb BMI: 25.8 Diagnosis Overweight/Obesity BMI> 30% ICD-10 E66: No Diagnosis High BMI/Morbid Obesity BMI> 35% ICD-10 Z68: No Intervention/Plan: Instruct on ideal BMI & set weight loss goal w/patient - Healthy Eating Habits Will attend diet classes:: Yes Outcomes/Goals:: Consume diet rich in vegs,fruits,whole grain/high fiber,fish,lean meat, Limit sat/trans fats,cholesterol & added salts & sugars Intervention/Plan:: Assess current eating habits - Education Gave educational materials for:: Healthy eating Medical - Initial Assessment - Visit Date of Eval: 07/05/19 - Medication Compliance Preventative Medication(s):: Aspirin, SUSAN inhibitor, Statin/lipid, Beta arabella H/O mental health issues: depression, anxiety, or addiction?: No Doesn?t believe in the benefits of treatment?: No Believes medications are unnecessary or harmful?: No Has a concern about medication side effects?: No Expresses concern over the cost of medications?: No Outcomes/Goals: Verbalizes medications,desired effect & common side effects @ DC, Pt self-reports following medication regimen, Keeps card in wallet w/medications listed by DC Interventions/plans: Instruct on medication effects & side effects, Review medication list w/patient every two weeks, Instruct importance of taking meds as ordered & assist problem solving - Tobacco Use Tobacco Use: Non-smoker - FORMER SMOKER - Hypertension Hypertension Diagnosis:: Hypertension ICD-10 I10 Resting Blood Pressure:: 140/80 [place] [employer] Hypertension Guidelines: [place] [employer] Hypertension Guidelines. Normal BP Less than 120/80. Elevated BP 120/80. Hypertension Stage 1: BP 130-139/80-89. Hypertesnion Stage 2: BP 140 or higher/90 or higher. Hypertension Crisis: BP higher than 180/120 Outcomes/Goals: Able to verbalize/achieve optimal blood pressure <130/80, Incorporates diet changes & exercise for blood pressure control by DC Interventions/plan: Instruct on optimal blood pressure, hypertension & medications, Instruct on effects of sodium, alcohol, stress, exercise &hypertension - Tobacco Cessation Referral Smoking Cessation Referral:: No Individual Education/Counseling:: No Education Schedule Given:: Yes Psychosocial - Initial Assess - VIsit Date of Eval: 07/05/19 Not Applicable: Yes History of previous Mental disease:: No - Target Goals Target Goals: Assess presence or absence of depression. Using a valid screening tool, maximizes coping skills. Positive support system - Psychosocial Test Tool Used:: [employer] QOL Cardiac, PHQ-9 Questionnaire phq-9 Severity: Severity. 1-4 Minimal Depression. 5-9 Mild Depression. 10-14 Moderate Depression. 15-19 Moderately Sever Depression. 20-27 Severe Depression. Rule: - Referral to Behavioral Health PS - Interventions: Yes Attend Stress Management Classes, No Referral to Behavioral Health if PHQ-9 score >9:, No Referral to [facility], No Referral to Physician if PHQ-9 if score is 5-9: - Outcomes/Goals: See list Psychosocial Outcomes/Goals:: ID's personal stressors & 2 strategies to manage stress by discharge - Intervention/Plan: See List Interventions/Plan:: Assess stressors,coping strategies & signs of derpression on admission, Instruct/assist pt to develop coping & personal stress Mgt strategies, Instruct patient to recognize signs & symptoms of depression, Instruct patient to recog Patient Health Questionnaire Initial Assessment 1. Little interest or pleasure in doing things: Not at all 2. Feeling down, depressed, or hopeless: Not at all 3. Trouble falling or staying asleep, or sleeping too much: More than half the days 4. Feeling tired or having little energy: Several days 5. Poor appetite or overeating: Not at all 6. Feeling bad about yourself -- or that you are a failure or have let yourself or your family down: Not at all 7. Trouble concentrating on things, such as reading the newspaper or watching television: Several days 8. Moving or speaking so slowly that other people could have noticed. Or the opposite - being so fidgety or restless that you have been moving around a lot more than usual: Not at all 9. Thoughts that you would be better off , or of hurting yourself in some way: Not at all How difficult have these problems made it for you to do your work, take care of things at home, or get along with other people?: Not difficult at all Total Score: 4 SPENSER-Q SV Test - Statements CAD is a disease of the arteries in the heart: False Examples of risk factors for heart disease: True Angina is chest pain or discomfort: True The benefits of resistance training include: True Eating more meat and dairy products: False Anti-platelet medications such as aspirin are important: True The only effective way to manage stress: False An exercise warm-up slowly increases heart rate: True Prepared, processed foods usually have high sodium: True Depression is common after a heart attack: True The statin medications lower cholesterol: True To control blood pressure, lower the amount of sodium: True If someone gets chest discomfort during walking: False Transfats are partially hydrogenated vegetable oils: True Sleep apnea that is not treated increases the risk: I Don't Know To control cholesterol, one should become a vegetarian: False Someone knows if he/she is exercising at the right level: True Diabetes cannot be prevented with exercise & health eating: False Stress is a large risk for heart attack: I Don't Know A diet that can help lower blood pressure is rich in: True - Total Score Total Correct Responses: 18 Self-Efficacy Initial Assessment We would like to know how confident you are in doing certain activities. Please select your confidence level for:: Select your confidence level for the following using the scale 1-10 where 1 is not at all confident and 10 is totally confident. Your score is the average of all 6 responses. Fatigue: How confident are you that you can keep the fatigue caused by your disease from interfering with the things you want to do? Select Number: 8 Physical Discomfort or Pain: How confident are you that you can keep the physical discomfort or pain of your disease from interfering with the things you want to do? Select Number: 10 Emotional Distress: How confident are you that you can keep the emotional distress caused by your disease from interfering with the things you want to do? Select Number: 10 Other Symptoms or Health Problems: How confident are you that you can keep other symptoms or health problems from interfering with the things you want to do? Select Number: 8 Different Tasks and Activities: How confident are you that you can do the different tasks and activities needed to manage your health condition so as to reduce your need to see a doctor? Select Number: 10 Medication: How confident are you that you can do things other than just taking medication to reduce how much your illness affects your everyday life? Select Number: 10 Total Score:: 9 Nutrition Survey - Nutrition Survey Instructions Scoring Instructions: Scoring is as follows: Yes = 1 points. No = 0 point. Patient score that is >/=12 is considered to be at potential nutritional risk and could benefit from a referral to a registered dietitian. - Nutrition Survey Initial Have you lost >10 lbs over the past 2 months without trying?: No Are you following a special diet at home for diabetes, low fat, or low salt?: No Are you interested in meeting with a dietitian for help understanding your diet?: Yes Do you eat less than 3 meals a day?: No Do you eat fatty meats (hein, sausage, ribs, etc), fried foods, desserts, large amounts of salad dressings, margarine, butter, or cheese most days?: No Do you have food allergies? [Enter types in comment field]: No Do you eat in restaurants more than 3 times a week?: No Do you season food with salt, seasoning salt, or garlic salt?: Yes Do you used canned, boxed, frozen meals, or soups, seasoning packets?: Yes Total Score:: 3
[2019-07-05 10:44] VITALS: BP 140/80; PULSE 75; RESP 14; TEMP 36.9; O2SAT 96; BMI 25.8
[2019-07-05 10:48] VITALS: BP 140/80; BMI 25.8
== END ==
PROVIDERS: PCP Family Medicine
DX: I25.10 Atherosclerotic heart disease of native coronary artery without angina pectoris (principal); I10 Essential (primary) hypertension; E78.5 Hyperlipidemia, unspecified; Z95.1 Presence of aortocoronary bypass graft

== ENCOUNTER 2019-07-23 11:30 | Outpatient (RCR) | payer MEDICARE, SELFPAY ==
[2019-07-05 10:44] VITALS: BMI 25.8
[2019-07-05 10:48] VITALS: BMI 25.8
== END 2019-07-24 23:59 ==
LOC: CR 11:30
PROVIDERS: PCP Family Medicine
DX: I25.10 Atherosclerotic heart disease of native coronary artery without angina pectoris (principal); I10 Essential (primary) hypertension; E78.5 Hyperlipidemia, unspecified; Z95.1 Presence of aortocoronary bypass graft
CPT/HCPCS: 93798

== ENCOUNTER 2019-07-25 09:41 | Outpatient (RCR) | payer MEDICARE, SELFPAY ==
[2019-07-05 10:44] VITALS: BMI 25.8
[2019-07-05 10:48] VITALS: BMI 25.8
--- NOTE | 2019-07-27 07:19 | PCM.CR.ITP ---
Exercise - Initial Assessment - Visit Date of Eval: 07/27/19 - With obvious neccessary interupption in the delivery of CR, the patient's program is on hold due to the coronovirus. The CR program has been closed for patient safety reasons.
== END 2019-08-23 23:59 ==
LOC: CR 09:41
PROVIDERS: PCP Family Medicine
DX: I25.10 Atherosclerotic heart disease of native coronary artery without angina pectoris (principal); I10 Essential (primary) hypertension; E78.5 Hyperlipidemia, unspecified; Z95.1 Presence of aortocoronary bypass graft
CPT/HCPCS: 93798

== ENCOUNTER 2019-09-21 11:30 | Outpatient (RCR) | payer MEDICARE, SELFPAY ==
[2019-07-05 10:44] VITALS: BMI 25.8
[2019-07-05 10:48] VITALS: BMI 25.8
--- NOTE | 2019-08-24 10:52 | PCM.CR.ITP ---
Diagnosis - General Information Admitting Diagnosis: S/P CABG X3 Personal Learning Style:: Audio/Visual, Demonstration, Group, Individual Preference, Written Stage of change r/t lifestyle modifications:: Action Gave educational material for:: Treating Heart Disease, Emotions & Heart Disease, Stress Management & Relaxation, Sleep Disorders & Heart Disease, How The Heart Works, What it means to have Heart Disease, How Coronary Artery Disease is Diagnosed, Heart Procedures, What Heart Medications Do, Risk Factors & Modifications, Living an Active Life, Nutrition - Education/Goals Cardiac Rehabilitation Goals: 1. Maintain the individual as the primary focus of care. 2. To improve the patient's quality of life. 3. Identification of cardiac risk factors and provide cardiac risk factor management. 4. Enhance the psychosocial status of the patient. 5. Reconditioning enough to allow the patient to resume customary activities. 6. Control symptoms of cardiac disease Scale for measuring improvement of personal goals: Enter appropriate number in Comments. 2 = Unchanged. 3 = Slightly Better. 4 = Moderate Improvement. 5 = Met my Goal - Diagnosis & Disease Process Outcomes/Goals: Pt IDs own risk factors & lifestyle modifications by Session 10, Verbalizes symptoms of angina & response by session 3., Pt independently manages, Other Additional Outcomes/Goals: Plan/Interventions: Assist Pt to ID & engage in lifestyle modification to reduce CVD risk, Instruct on individual risk factors, Review symptoms of angina & emergency actions, Review secondary diagnosis & identify educational needs., Other see comment 30 day Reassessments:: Progressing 30 day Reassessments:: Progressing 30 day Reassessments:: Progressing 30 day Reassessments:: Progressing - Safety Referral to Physical Therapy: No Referral to [facility] Case Management: No Fall Risk Assessed:: Yes Assistive Devices:: None Exercise - 30-day Assessment - Visit Date of Eval: 08/24/19 Session #:: 2 Comments:: Pt was on hold for COVID 19 precaution. Pt is now resuming rehab. - Physician Prescribed Exercise Modalities: Treadmill, Airdyne, NuStep Frequency: 3x/week for 12 weeks [36 sessions] Intensity: 60-80% of age predicted maximum heart rate reserve Current METSs:: 3 Target Heart Rate:: 96-125 Current RPE:: 11-13 Maximum Excercise HR:: 105 Resting Blood Pressure: 120/64 Maximum Exercise Blood Pressure: 180/82 EKG Type: SB - Outcomes & Goals Goals:: Verbalizes understanding of THR, RPE & goal METS by session 6, Documents in home exercise log/reports 30 min aerobic 5 day/wk by DC, Demonstrates accurate pulse taking by DC, Other additional outcome/goals: see below - Intervention & Plan Exercise Program Goals: Instruct on personal THR & RPE, Instruct on MET level & personal MET goal, Show patient to take own pulse /validate performance until accurate, Instruct on home exercise, Other additional plan/int - 30-day Reassessments 30 day Reassessments:: Progressing - Physical Activity Home Exercise Physical Activity - Home Exercise: Safe Exercise, Warm-up, Self-monitoring, Cool-Down, Home Exercise > 30 min Daily, Sitting Time <3 hours/daily - Outcomes & Goals Outcomes/Goals: Demonstrates correct Warm-up/exercise Cool-Down (S3) if = 2.5 METs, Verbalizes symptoms of exercise intolerance by Session 3 (S3), Demonstrate safe equipment use (S3) & follows exercise prescrition (6), Other: See below - Intervention & Plan Plan/Intervention: Instruct warm-up & cool-down if exercising at > 2 METs, Instruct on symptoms of exercise intolerance & actions to take, Instruct & monitor on saf, Assess intial functional capacity & safety risk, Other See below - 30-day Reassessments 30 day Reassessments:: Progressing Nutrition - 30-Day Assessment - Program Goals Nutrition Program Goals: LDL <100 optimal. 100 - 129 Near optimal. 130 - 159 Borderline High. 160 - 189 High. Total Cholesterol <200 desirable. 200 - 239 Borderline High. >/= 240 High. HDL < 40 Low >/=60 High. Triglycerides <150 desirable. <199 optimal. VlDL 5 - 40. HgbA1C <7%. BMI <25 Patient has diagnosis of Hyperlipidemia (ICD E78)?: Yes - Visit Date of Assessment:: 08/24/19 Session #:: 2 - Cholesterol/Lipids Outcomes/Goals: Pt IDs own risk factors & lifestyle modifications by Session 10, Verbalizes symptoms of angina & response by session 3., Pt independently manages, Other Additional Outcomes/Goals: Intervention/Plan: Advocate for lipid panel cholesterol medication if applicable, Instruct on personal lipid levels & lipid goals/NCEP guidelines, Instruct on cholesterol, Other additional plan/int Referral to dietitian:: Yes 30-day Reassessments:: Progressing - Weight Mgt (Other Care) Height: 5 ft 7 in Weight:: 74.843 kg BMI: 25.8 Outcomes/Goals: Pt sets, maintains & shows weight loss goal & trend during rehab, Other additional outcomes/goals Intervention/Plan: Instruct on ideal BMI & set weight loss goal w/patient, Assist pt to ID & incorporate diet changes for weight loss by S9, Refer to Structured Weight Loss program as appropriate, Encourage goal of using 250-300dcal per session for weight loss, Other additional plan/interventions 30 day Reassessments:: Progressing - Healthy Eating Habits Will attend diet classes:: Yes Outcomes/Goals:: Consume diet rich in vegs,fruits,whole grain/high fiber,fish,lean meat, Limit sat/trans fats,cholesterol & added salts & sugars, Other additional outcome/goals: Intervention/Plan:: Assess current eating habits, Other Additional plan/interventions 30-day Reassessments:: Progressing - Education Gave educational materials for:: Signs & symptoms of hypoglycemia, Signs & symptoms of hyperglycemia, Relate diabetes to coronary artery disease, Healthy eating Medical- 30-Day Assessment - Visit Date of Eval: 08/24/19 Session #:: 2 - Medication Compliance Preventative Medication(s):: Aspirin, SUSAN inhibitor, Statin/lipid, Beta arabella H/O mental health issues: depression, anxiety, or addiction?: No Doesn?t believe in the benefits of treatment?: No Believes medications are unnecessary or harmful?: No Has a concern about medication side effects?: No Expresses concern over the cost of medications?: No Outcomes/Goals: Verbalizes medications,desired effect & common side effects @ DC, Pt self-reports following medication regimen, Keeps card in wallet w/medications listed by DC, Other additional outcome/goals: Interventions/plans: Instruct on medication effects & side effects, Review medication list w/patient every two weeks, Instruct importance of taking meds as ordered & assist problem solving, Other additional 30-day Reassessments:: Progressing - Tobacco Use Tobacco Use: Non-smoker - Hypertension Hypertension Diagnosis:: Hypertension ICD-10 I10 Resting Blood Pressure:: 120/64 [place] [employer] Hypertension Guidelines: [place] [employer] Hypertension Guidelines. Normal BP Less than 120/80. Elevated BP 120/80. Hypertension Stage 1: BP 130-139/80-89. Hypertesnion Stage 2: BP 140 or higher/90 or higher. Hypertension Crisis: BP higher than 180/120 Peak Exercise Blood Pressure:: 180/82 Outcomes/Goals: Able to verbalize/achieve optimal blood pressure <130/80, Incorporates diet changes & exercise for blood pressure control by DC, Other additional outcomes/goals Interventions/plan: Instruct on optimal blood pressure, hypertension & medications, Instruct on effects of sodium, alcohol, stress, exercise &hypertension, Other additional plan/interventions 30 day Reassessments:: Progressing - Tobacco Cessation Referral Smoking Cessation Referral:: No Individual Education/Counseling:: No Education Schedule Given:: Yes Psychosocial - 30-Day Assess - VIsit Date of Eval: 08/24/19 Session #:: 2 History of previous Mental disease:: No - Target Goals Target Goals: Assess presence or absence of depression. Using a valid screening tool, maximizes coping skills. Positive support system - Psychosocial Test Tool Used:: [employer] QOL Cardiac, PHQ-9 Questionnaire phq-9 Severity: Severity. 1-4 Minimal Depression. 5-9 Mild Depression. 10-14 Moderate Depression. 15-19 Moderately Sever Depression. 20-27 Severe Depression. Rule: - Referral to Behavioral Health PS - Interventions: Yes Attend Stress Management Classes, No Referral to Behavioral Health if PHQ-9 score >9:, No Referral to [facility], No Referral to Physician if PHQ-9 if score is 5-9: - Outcomes/Goals: See list Psychosocial Outcomes/Goals:: ID's personal stressors & 2 strategies to manage stress by discharge, Other Additional outcome/goals: - Intervention/Plan: See List Interventions/Plan:: Assess stressors,coping strategies & signs of derpression on admission, Instruct/assist pt to develop coping & personal stress Mgt strategies, Refer to Behavioral Health if appropriate, Refer to Physician if appropriate, Instruct patient to recognize signs & symptoms of depression, Instruct patient to recog, Other additional plan/intervention - 30-day Reassessments: 30 day Reassessments:: Progressing Patient Health Questionnaire 30-Day Re-eval Assessment 1. Little interest or pleasure in doing things: Not at all 2. Feeling down, depressed, or hopeless: More than half the days 3. Trouble falling or staying asleep, or sleeping too much: Several days 4. Feeling tired or having little energy: Not at all 5. Poor appetite or overeating: Several days 6. Feeling bad about yourself -- or that you are a failure or have let yourself or your family down: Not at all 7. Trouble concentrating on things, such as reading the newspaper or watching television: Several days 8. Moving or speaking so slowly that other people could have noticed. Or the opposite - being so fidgety or restless that you have been moving around a lot more than usual: Not at all 9. Thoughts that you would be better off , or of hurting yourself in some way: Not at all How difficult have these problems made it for you to do your work, take care of things at home, or get along with other people?: Not difficult at all Total Score: 5 Self-Efficacy 30-Day Re-eval Assessment We would like to know how confident you are in doing certain activities. Please select your confidence level for:: Select your confidence level for the following using the scale 1-10 where 1 is not at all confident and 10 is totally confident. Your score is the average of all 6 responses. Fatigue: How confident are you that you can keep the fatigue caused by your disease from interfering with the things you want to do? Select Number: 8 Physical Discomfort or Pain: How confident are you that you can keep the physical discomfort or pain of your disease from interfering with the things you want to do? Select Number: 10 Emotional Distress: How confident are you that you can keep the emotional distress caused by your disease from interfering with the things you want to do? Select Number: 10 Other Symptoms or Health Problems: How confident are you that you can keep other symptoms or health problems from interfering with the things you want to do? Select Number: 8 Different Tasks and Activities: How confident are you that you can do the different tasks and activities needed to manage your health condition so as to reduce your need to see a doctor? Select Number: 10 Medication: How confident are you that you can do things other than just taking medication to reduce how much your illness affects your everyday life? Select Number: 10 Total Score:: 9
[2019-08-24 11:01] VITALS: BP 120/64; BP 180/82; BMI 25.8
--- NOTE | 2019-09-11 09:48 | PCM.CR.ITP ---
Exercise - 30-day Assessment - Visit Date of Eval: 09/11/19 Session #:: 9 Comments:: Suspension of Cardiac Rehab services resulted from 07/26/2019 through 08/27/2019 as a result of Covid-19 closure of the program under the [facility] [place] [facility]. - Physician Prescribed Exercise Modalities: Treadmill, Rower, Airdyne, NuStep Frequency: 3x/week for 12 weeks [36 sessions] Intensity: 60-80% of age predicted maximum heart rate reserve Current METSs:: 5 Target Heart Rate:: 96-125 Current RPE:: 12 Maximum Excercise HR:: 96 Resting Blood Pressure: 124/68 Maximum Exercise Blood Pressure: 166/72 - Outcomes & Goals Goals:: Verbalizes understanding of THR, RPE & goal METS by session 6, Documents in home exercise log/reports 30 min aerobic 5 day/wk by DC, Demonstrates accurate pulse taking by DC - Intervention & Plan Exercise Program Goals: Instruct on personal THR & RPE, Instruct on MET level & personal MET goal, Show patient to take own pulse /validate performance until accurate, Instruct on home exercise - 30-day Reassessments 30 day Reassessments:: Progressing - Physical Activity Home Exercise Physical Activity - Home Exercise: Safe Exercise, Warm-up, Self-monitoring, Cool-Down, Home Exercise > 30 min Daily, Sitting Time <3 hours/daily - Outcomes & Goals Outcomes/Goals: Demonstrates correct Warm-up/exercise Cool-Down (S3) if = 2.5 METs, Verbalizes symptoms of exercise intolerance by Session 3 (S3), Demonstrate safe equipment use (S3) & follows exercise prescrition (6) - Intervention & Plan Plan/Intervention: Instruct warm-up & cool-down if exercising at > 2 METs, Instruct on symptoms of exercise intolerance & actions to take, Instruct & monitor on saf, Assess intial functional capacity & safety risk - 30-day Reassessments 30 day Reassessments:: Progressing Nutrition - 30-Day Assessment - Program Goals Nutrition Program Goals: LDL <100 optimal. 100 - 129 Near optimal. 130 - 159 Borderline High. 160 - 189 High. Total Cholesterol <200 desirable. 200 - 239 Borderline High. >/= 240 High. HDL < 40 Low >/=60 High. Triglycerides <150 desirable. <199 optimal. VlDL 5 - 40. HgbA1C <7%. BMI <25 Patient has diagnosis of Hyperlipidemia (ICD E78)?: Yes - Visit Date of Assessment:: 09/11/19 Session #:: 9 - Cholesterol/Lipids Determine presence & major risk factors that modify LDL goal: Hypertension or hypertensive medication, Age men > 45 years; women >/= 55 years Outcomes/Goals: Pt IDs own risk factors & lifestyle modifications by Session 10, Verbalizes symptoms of angina & response by session 3., Pt independently manages Intervention/Plan: Instruct on personal lipid levels & lipid goals/NCEP guidelines, Instruct on cholesterol Referral to dietitian:: Yes 30-day Reassessments:: Progressing - Diabetes (Other Core Measures) Diabetes Type: Not Applicable - Weight Mgt (Other Care) Not Applicable: Yes Height: 5 ft 7 in Weight:: 169 lb BMI: 26.4 Diagnosis Overweight/Obesity BMI> 30% ICD-10 E66: No Diagnosis High BMI/Morbid Obesity BMI> 35% ICD-10 Z68: No Outcomes/Goals: Pt sets, maintains & shows weight loss goal & trend during rehab Intervention/Plan: Instruct on ideal BMI & set weight loss goal w/patient 30 day Reassessments:: Progressing - Healthy Eating Habits Will attend diet classes:: Yes Outcomes/Goals:: Consume diet rich in vegs,fruits,whole grain/high fiber,fish,lean meat, Limit sat/trans fats,cholesterol & added salts & sugars Intervention/Plan:: Assess current eating habits 30-day Reassessments:: Progressing - Education Gave educational materials for:: Healthy eating Medical- 30-Day Assessment - Visit Date of Eval: 09/11/19 Session #:: 9 - Medication Compliance Preventative Medication(s):: Aspirin, SUSAN inhibitor, Statin/lipid, Beta arabella H/O mental health issues: depression, anxiety, or addiction?: No Doesn?t believe in the benefits of treatment?: No Believes medications are unnecessary or harmful?: No Has a concern about medication side effects?: No Expresses concern over the cost of medications?: No Outcomes/Goals: Verbalizes medications,desired effect & common side effects @ DC, Pt self-reports following medication regimen, Keeps card in wallet w/medications listed by DC Interventions/plans: Instruct on medication effects & side effects, Review medication list w/patient every two weeks, Instruct importance of taking meds as ordered & assist problem solving 30-day Reassessments:: Progressing - Tobacco Use Tobacco Use: Non-smoker - Hypertension Hypertension Diagnosis:: Hypertension ICD-10 I10 Resting Blood Pressure:: 124/68 [place] [employer] Hypertension Guidelines: [place] [employer] Hypertension Guidelines. Normal BP Less than 120/80. Elevated BP 120/80. Hypertension Stage 1: BP 130-139/80-89. Hypertesnion Stage 2: BP 140 or higher/90 or higher. Hypertension Crisis: BP higher than 180/120 Peak Exercise Blood Pressure:: 166/72 Outcomes/Goals: Able to verbalize/achieve optimal blood pressure <130/80, Incorporates diet changes & exercise for blood pressure control by DC Interventions/plan: Instruct on optimal blood pressure, hypertension & medications, Instruct on effects of sodium, alcohol, stress, exercise &hypertension 30 day Reassessments:: Progressing - Tobacco Cessation Referral Smoking Cessation Referral:: No Individual Education/Counseling:: No Education Schedule Given:: Yes Psychosocial - 30-Day Assess - VIsit Date of Eval: 09/11/19 Session #:: 9 Not Applicable: Yes History of previous Mental disease:: No - Target Goals Target Goals: Assess presence or absence of depression. Using a valid screening tool, maximizes coping skills. Positive support system - Psychosocial Test Tool Used:: [employer] QOL Cardiac, PHQ-9 Questionnaire phq-9 Severity: Severity. 1-4 Minimal Depression. 5-9 Mild Depression. 10-14 Moderate Depression. 15-19 Moderately Sever Depression. 20-27 Severe Depression. Rule: - Referral to Behavioral Health PS - Interventions: Yes Attend Stress Management Classes, No Referral to Behavioral Health if PHQ-9 score >9:, No Referral to [facility], No Referral to Physician if PHQ-9 if score is 5-9: - Outcomes/Goals: See list Psychosocial Outcomes/Goals:: ID's personal stressors & 2 strategies to manage stress by discharge - Intervention/Plan: See List Interventions/Plan:: Assess stressors,coping strategies & signs of derpression on admission, Instruct/assist pt to develop coping & personal stress Mgt strategies, Instruct patient to recognize signs & symptoms of depression, Instruct patient to recog - 30-day Reassessments: 30 day Reassessments:: Progressing Patient Health Questionnaire 30-Day Re-eval Assessment 1. Little interest or pleasure in doing things: Not at all 2. Feeling down, depressed, or hopeless: Not at all 3. Trouble falling or staying asleep, or sleeping too much: Several days 4. Feeling tired or having little energy: Not at all 5. Poor appetite or overeating: Not at all 6. Feeling bad about yourself -- or that you are a failure or have let yourself or your family down: Not at all 7. Trouble concentrating on things, such as reading the newspaper or watching television: Not at all 8. Moving or speaking so slowly that other people could have noticed. Or the opposite - being so fidgety or restless that you have been moving around a lot more than usual: Not at all 9. Thoughts that you would be better off , or of hurting yourself in some way: Not at all How difficult have these problems made it for you to do your work, take care of things at home, or get along with other people?: Not difficult at all Total Score: 1 Self-Efficacy 30-Day Re-eval Assessment We would like to know how confident you are in doing certain activities. Please select your confidence level for:: Select your confidence level for the following using the scale 1-10 where 1 is not at all confident and 10 is totally confident. Your score is the average of all 6 responses. Fatigue: How confident are you that you can keep the fatigue caused by your disease from interfering with the things you want to do? Select Number: 9 Physical Discomfort or Pain: How confident are you that you can keep the physical discomfort or pain of your disease from interfering with the things you want to do? Select Number: 10 Emotional Distress: How confident are you that you can keep the emotional distress caused by your disease from interfering with the things you want to do? Select Number: 10 Other Symptoms or Health Problems: How confident are you that you can keep other symptoms or health problems from interfering with the things you want to do? Select Number: 8 Different Tasks and Activities: How confident are you that you can do the different tasks and activities needed to manage your health condition so as to reduce your need to see a doctor? Select Number: 10 Medication: How confident are you that you can do things other than just taking medication to reduce how much your illness affects your everyday life? Select Number: 10 Total Score:: 9
[2019-09-11 10:08] VITALS: BP 124/68; BP 166/72; BMI 26.4
== END 2019-09-23 23:59 ==
LOC: CR 11:30
PROVIDERS: PCP Family Medicine
DX: I25.10 Atherosclerotic heart disease of native coronary artery without angina pectoris (principal); I10 Essential (primary) hypertension; E78.5 Hyperlipidemia, unspecified; Z95.1 Presence of aortocoronary bypass graft
CPT/HCPCS: 93798

== ENCOUNTER 2019-10-22 11:30 | Outpatient (RCR) | payer MEDICARE, SELFPAY ==
[2019-07-05 10:44] VITALS: BMI 25.8
[2019-09-11 10:08] VITALS: BMI 26.4
[2019-09-24 00:28] VITALS: BP 124/68; BP 166/72
--- NOTE | 2019-10-08 14:16 | PCM.CR.ITP ---
Exercise - 90-day Assessment - Visit Date of Eval: 10/08/19 Session #:: 20 Comments:: Suspension of Cardiac Rehab services resulted from 07/26/2019 through 08/27/2019 as a result of Covid-19 closure of the program under the Dept of [facility] and [place] Gov. [employer]inda's orders. - Physician Prescribed Exercise Modalities: Treadmill, Rower, Airdyne, NuStep Frequency: 3x/week for 12 weeks [36 sessions] Intensity: 60-80% of age predicted maximum heart rate reserve Current METSs:: 6.0 Target Heart Rate:: 96-125 Current RPE:: 14-15 Maximum Excercise HR:: 100 Resting Blood Pressure: 112/70 Maximum Exercise Blood Pressure: 180/82 EKG Type: SINUS BRADYCARDIA TO SINUS RHYTHM WITH A RARE PAC and PVC. - Outcomes & Goals Goals:: Verbalizes understanding of THR, RPE & goal METS by session 6, Documents in home exercise log/reports 30 min aerobic 5 day/wk by DC, Demonstrates accurate pulse taking by DC - Intervention & Plan Exercise Program Goals: Instruct on personal THR & RPE, Instruct on MET level & personal MET goal, Show patient to take own pulse /validate performance until accurate, Instruct on home exercise - 30-day Reassessments 30 day Reassessments:: Progressing - Physical Activity Home Exercise Physical Activity - Home Exercise: Safe Exercise, Warm-up, Self-monitoring, Cool-Down, Home Exercise > 30 min Daily, Sitting Time <3 hours/daily - Outcomes & Goals Outcomes/Goals: Demonstrates correct Warm-up/exercise Cool-Down (S3) if = 2.5 METs, Verbalizes symptoms of exercise intolerance by Session 3 (S3), Demonstrate safe equipment use (S3) & follows exercise prescrition (6) - Intervention & Plan Plan/Intervention: Instruct warm-up & cool-down if exercising at > 2 METs, Instruct on symptoms of exercise intolerance & actions to take, Instruct & monitor on saf, Assess intial functional capacity & safety risk - 30-day Reassessments 30 day Reassessments:: Progressing Nutrition - 90-Day Assessment - Program Goals Nutrition Program Goals: LDL <100 optimal. 100 - 129 Near optimal. 130 - 159 Borderline High. 160 - 189 High. Total Cholesterol <200 desirable. 200 - 239 Borderline High. >/= 240 High. HDL < 40 Low >/=60 High. Triglycerides <150 desirable. <199 optimal. VlDL 5 - 40. HgbA1C <7%. BMI <25 Patient has diagnosis of Hyperlipidemia (ICD E78)?: Yes - Visit Date of Assessment:: 10/08/19 Session #:: 20 - Cholesterol/Lipids Determine presence & major risk factors that modify LDL goal: Hypertension or hypertensive medication, Family history of premature CHD in Male < 55 years: female <65 yearsFa, Age men > 45 years; women >/= 55 years Outcomes/Goals: Pt IDs own risk factors & lifestyle modifications by Session 10, Verbalizes symptoms of angina & response by session 3., Pt independently manages Intervention/Plan: Instruct on personal lipid levels & lipid goals/NCEP guidelines, Instruct on cholesterol Referral to dietitian:: Yes - MEDICAL NUTRITION THERAPY 30-day Reassessments:: Progressing - Diabetes (Other Core Measures) Diabetes Type: Not Applicable - Weight Mgt (Other Care) Not Applicable: Yes Height: 5 ft 7 in Weight:: 168 lb BMI: 26.3 Diagnosis Overweight/Obesity BMI> 30% ICD-10 E66: No Diagnosis High BMI/Morbid Obesity BMI> 35% ICD-10 Z68: No Outcomes/Goals: Pt sets, maintains & shows weight loss goal & trend during rehab Intervention/Plan: Instruct on ideal BMI & set weight loss goal w/patient 30 day Reassessments:: Progressing - Healthy Eating Habits Will attend diet classes:: Yes Outcomes/Goals:: Consume diet rich in vegs,fruits,whole grain/high fiber,fish,lean meat, Limit sat/trans fats,cholesterol & added salts & sugars Intervention/Plan:: Assess current eating habits 30-day Reassessments:: Progressing - Education Gave educational materials for:: Healthy eating Medical- 90-Day Assessment - Visit Date of Eval: 10/08/19 Session #:: 20 - Medication Compliance Preventative Medication(s):: Aspirin, SUSAN inhibitor, Statin/lipid, Beta arabella H/O mental health issues: depression, anxiety, or addiction?: No Doesn?t believe in the benefits of treatment?: No Believes medications are unnecessary or harmful?: No Has a concern about medication side effects?: No Outcomes/Goals: Verbalizes medications,desired effect & common side effects @ DC, Pt self-reports following medication regimen, Keeps card in wallet w/medications listed by DC Interventions/plans: Instruct on medication effects & side effects, Review medication list w/patient every two weeks, Instruct importance of taking meds as ordered & assist problem solving 30-day Reassessments:: Progressing - Tobacco Use Tobacco Use: Non-smoker - Hypertension Hypertension Diagnosis:: Hypertension ICD-10 I10 Resting Blood Pressure:: 112/70 [place] [employer] Hypertension Guidelines: [place] [employer] Hypertension Guidelines. Normal BP Less than 120/80. Elevated BP 120/80. Hypertension Stage 1: BP 130-139/80-89. Hypertesnion Stage 2: BP 140 or higher/90 or higher. Hypertension Crisis: BP higher than 180/120 Peak Exercise Blood Pressure:: 180/82 Outcomes/Goals: Able to verbalize/achieve optimal blood pressure <130/80, Incorporates diet changes & exercise for blood pressure control by DC Interventions/plan: Instruct on optimal blood pressure, hypertension & medications, Instruct on effects of sodium, alcohol, stress, exercise &hypertension 30 day Reassessments:: Progressing - Tobacco Cessation Referral Smoking Cessation Referral:: No Individual Education/Counseling:: No Education Schedule Given:: Yes Psychosocial - 60-Day Assess - VIsit Date of Eval: 10/08/19 Session #:: 20 Not Applicable: Yes History of previous Mental disease:: No - Target Goals Target Goals: Assess presence or absence of depression. Using a valid screening tool, maximizes coping skills. Positive support system - Psychosocial Test Tool Used:: Devin [employer] QOL Cardiac, PHQ-9 Questionnaire phq-9 Severity: Severity. 1-4 Minimal Depression. 5-9 Mild Depression. 10-14 Moderate Depression. 15-19 Moderately Sever Depression. 20-27 Severe Depression. Rule: - Referral to Behavioral Health PS - Interventions: Yes Attend Stress Management Classes, No Referral to Behavioral Health if PHQ-9 score >9:, No Referral to [facility] [place] [facility], No Referral to Physician if PHQ-9 if score is 5-9: - Outcomes/Goals: See list Psychosocial Outcomes/Goals:: ID's personal stressors & 2 strategies to manage stress by discharge - Intervention/Plan: See List Interventions/Plan:: Assess stressors,coping strategies & signs of derpression on admission, Instruct/assist pt to develop coping & personal stress Mgt strategies, Instruct patient to recognize signs & symptoms of depression, Instruct patient to recog - 30-day Reassessments: 30 day Reassessments:: Progressing Patient Health Questionnaire 90-Day Re-eval Assessment 1. Little interest or pleasure in doing things: Not at all 2. Feeling down, depressed, or hopeless: Not at all 3. Trouble falling or staying asleep, or sleeping too much: Not at all 4. Feeling tired or having little energy: Not at all 5. Poor appetite or overeating: Not at all 6. Feeling bad about yourself -- or that you are a failure or have let yourself or your family down: Not at all 7. Trouble concentrating on things, such as reading the newspaper or watching television: Not at all 8. Moving or speaking so slowly that other people could have noticed. Or the opposite - being so fidgety or restless that you have been moving around a lot more than usual: Not at all 9. Thoughts that you would be better off , or of hurting yourself in some way: Not at all Total Score: 0 Self-Efficacy 90-Day Re-eval Assessment We would like to know how confident you are in doing certain activities. Please select your confidence level for:: Select your confidence level for the following using the scale 1-10 where 1 is not at all confident and 10 is totally confident. Your score is the average of all 6 responses. Fatigue: How confident are you that you can keep the fatigue caused by your disease from interfering with the things you want to do? Select Number: 10 Physical Discomfort or Pain: How confident are you that you can keep the physical discomfort or pain of your disease from interfering with the things you want to do? Select Number: 10 Emotional Distress: How confident are you that you can keep the emotional distress caused by your disease from interfering with the things you want to do? Select Number: 10 Other Symptoms or Health Problems: How confident are you that you can keep other symptoms or health problems from interfering with the things you want to do? Select Number: 10 Different Tasks and Activities: How confident are you that you can do the different tasks and activities needed to manage your health condition so as to reduce your need to see a doctor? Select Number: 10 Medication: How confident are you that you can do things other than just taking medication to reduce how much your illness affects your everyday life? Select Number: 10 Total Score:: 10
[2019-10-08 14:22] VITALS: BP 112/70; BP 180/82; BMI 26.3
== END 2019-10-23 23:59 ==
LOC: CR 11:30
PROVIDERS: PCP Family Medicine
DX: I25.10 Atherosclerotic heart disease of native coronary artery without angina pectoris (principal); I10 Essential (primary) hypertension; E78.5 Hyperlipidemia, unspecified; Z95.1 Presence of aortocoronary bypass graft
CPT/HCPCS: 93798

== ENCOUNTER → 2019-11-05 14:57 | Outpatient (CLI) | payer MEDICARE, SELFPAY ==
[2019-07-05 10:44] VITALS: BMI 25.8
[2019-10-08 14:22] VITALS: BMI 26.3
[2019-11-05 15:51] LABS: PSA,Total - Annual Screen 2.45 ng/mL (0.00-4.00)
== END ==
PROVIDERS: PCP Family Medicine; Referring Provider Urology; Visit Provider Urology
DX: Z12.5 Encounter for screening for malignant neoplasm of prostate (principal)
CPT/HCPCS: 36415; 84153; G0103

== ENCOUNTER 2019-11-16 11:30 | Outpatient (RCR) | payer MEDICARE, SELFPAY ==
[2019-07-05 10:44] VITALS: BMI 25.8
[2019-10-08 14:22] VITALS: BMI 26.3
[2019-10-24 00:27] VITALS: BP 112/70; BP 180/82
--- NOTE | 2019-11-08 06:37 | CR.ITP_ITS ---
Exercise - 90-day Assessment - Visit Date of Eval: 11/08/19 Session #:: 32 - Physician Prescribed Exercise Modalities: Treadmill, Airdyne, NuStep Frequency: 3x/week for 12 weeks [36 sessions] Intensity: 60-80% of age predicted maximum heart rate reserve Current METSs:: 6 Target Heart Rate:: 96-125 Current RPE:: 13-15 Maximum Excercise HR:: 107 Resting Blood Pressure: 122/70 Maximum Exercise Blood Pressure: 158/82 EKG Type: sinus rhythm to sinus tachycardia with rare PACs. - Outcomes & Goals Goals:: Verbalizes understanding of THR, RPE & goal METS by session 6, Documents in home exercise log/reports 30 min aerobic 5 day/wk by DC, Demonstrates accurate pulse taking by DC - Intervention & Plan Exercise Program Goals: Instruct on personal THR & RPE, Instruct on MET level & personal MET goal, Show patient to take own pulse /validate performance until accurate, Instruct on home exercise - 30-day Reassessments 30 day Reassessments:: Met - Physical Activity Home Exercise Physical Activity - Home Exercise: Safe Exercise, Warm-up, Self-monitoring, Cool-Down, Home Exercise > 30 min Daily, Sitting Time <3 hours/daily - Outcomes & Goals Outcomes/Goals: Demonstrates correct Warm-up/exercise Cool-Down (S3) if = 2.5 METs, Verbalizes symptoms of exercise intolerance by Session 3 (S3), Demonstrate safe equipment use (S3) & follows exercise prescrition (6) - Intervention & Plan Plan/Intervention: Instruct warm-up & cool-down if exercising at > 2 METs, Instruct on symptoms of exercise intolerance & actions to take, Instruct & monitor on saf, Assess intial functional capacity & safety risk - 30-day Reassessments 30 day Reassessments:: Met Nutrition - 90-Day Assessment - Program Goals Nutrition Program Goals: LDL <100 optimal. 100 - 129 Near optimal. 130 - 159 Borderline High. 160 - 189 High. Total Cholesterol <200 desirable. 200 - 239 Borderline High. >/= 240 High. HDL < 40 Low >/=60 High. Triglycerides <150 desirable. <199 optimal. VlDL 5 - 40. HgbA1C <7%. BMI <25 Patient has diagnosis of Hyperlipidemia (ICD E78)?: Yes - Visit Date of Assessment:: 11/08/19 Session #:: 32 - Cholesterol/Lipids Determine presence & major risk factors that modify LDL goal: Hypertension or hypertensive medication, Age men > 45 years; women >/= 55 years Outcomes/Goals: Pt IDs own risk factors & lifestyle modifications by Session 10, Verbalizes symptoms of angina & response by session 3., Pt independently manages Intervention/Plan: Instruct on personal lipid levels & lipid goals/NCEP guidelines, Instruct on cholesterol Referral to dietitian:: No 30-day Reassessments:: Met - Diabetes (Other Core Measures) Diabetes Type: Not Applicable - Weight Mgt (Other Care) Not Applicable: Yes Height: 5 ft 7 in Weight:: 166 lb BMI: 25.9 Diagnosis Overweight/Obesity BMI> 30% ICD-10 E66: No Diagnosis High BMI/Morbid Obesity BMI> 35% ICD-10 Z68: No Outcomes/Goals: Pt sets, maintains & shows weight loss goal & trend during rehab Intervention/Plan: Instruct on ideal BMI & set weight loss goal w/patient 30 day Reassessments:: Met - Healthy Eating Habits Will attend diet classes:: Yes Outcomes/Goals:: Consume diet rich in vegs,fruits,whole grain/high fiber,fish,lean meat, Limit sat/trans fats,cholesterol & added salts & sugars Intervention/Plan:: Assess current eating habits 30-day Reassessments:: Met - Education Gave educational materials for:: Healthy eating Medical- 90-Day Assessment - Visit Date of Eval: 11/08/19 - Medication Compliance Preventative Medication(s):: Aspirin, SUSAN inhibitor, Statin/lipid, Beta arabella H/O mental health issues: depression, anxiety, or addiction?: No Doesn?t believe in the benefits of treatment?: No Believes medications are unnecessary or harmful?: No Has a concern about medication side effects?: No Expresses concern over the cost of medications?: No Outcomes/Goals: Verbalizes medications,desired effect & common side effects @ DC, Pt self-reports following medication regimen, Keeps card in wallet w/medications listed by DC Interventions/plans: Instruct on medication effects & side effects, Review medication list w/patient every two weeks, Instruct importance of taking meds as ordered & assist problem solving 30-day Reassessments:: Met - Tobacco Use Tobacco Use: Non-smoker - Hypertension Resting Blood Pressure:: 122/70 [place] [employer] Hypertension Guidelines: [place] [employer] Hypertension Guidelines. Normal BP Less than 120/80. Elevated BP 120/80. Hypertension Stage 1: BP 130-139/80-89. Hypertesnion Stage 2: BP 140 or higher/90 or higher. Hypertension Crisis: BP higher than 180/120 Peak Exercise Blood Pressure:: 158/82 Outcomes/Goals: Able to verbalize/achieve optimal blood pressure <130/80, Incorporates diet changes & exercise for blood pressure control by DC Interventions/plan: Instruct on optimal blood pressure, hypertension & medications, Instruct on effects of sodium, alcohol, stress, exercise &hypertension 30 day Reassessments:: Progressing - Tobacco Cessation Referral Smoking Cessation Referral:: No Individual Education/Counseling:: No Education Schedule Given:: Yes Psychosocial - 90-Day Assess - VIsit Date of Eval: 11/08/19 Session #:: 32 Not Applicable: Yes - Target Goals Target Goals: Assess presence or absence of depression. Using a valid screening tool, maximizes coping skills. Positive support system - Psychosocial Test Tool Used:: [facility] QOL Cardiac, PHQ-9 Questionnaire phq-9 Severity: Severity. 1-4 Minimal Depression. 5-9 Mild Depression. 10-14 Moderate Depression. 15-19 Moderately Sever Depression. 20-27 Severe Depression. Rule: - Referral to Behavioral Health PS - Interventions: Yes Attend Stress Management Classes, No Referral to Behavioral Health if PHQ-9 score >9:, No Referral to [facility], No Referral to Physician if PHQ-9 if score is 5-9: - Outcomes/Goals: See list Psychosocial Outcomes/Goals:: ID's personal stressors & 2 strategies to manage stress by discharge - Intervention/Plan: See List Interventions/Plan:: Assess stressors,coping strategies & signs of derpression on admission, Instruct/assist pt to develop coping & personal stress Mgt strategies, Instruct patient to recognize signs & symptoms of depression, Instruct patient to recog - 30-day Reassessments: 30 day Reassessments:: Met Patient Health Questionnaire 90-Day Re-eval Assessment 1. Little interest or pleasure in doing things: Not at all 2. Feeling down, depressed, or hopeless: Not at all 3. Trouble falling or staying asleep, or sleeping too much: Not at all 4. Feeling tired or having little energy: Not at all 5. Poor appetite or overeating: Not at all 6. Feeling bad about yourself -- or that you are a failure or have let yourself or your family down: Not at all 7. Trouble concentrating on things, such as reading the newspaper or watching television: Not at all 8. Moving or speaking so slowly that other people could have noticed. Or the opposite - being so fidgety or restless that you have been moving around a lot more than usual: Not at all 9. Thoughts that you would be better off , or of hurting yourself in some way: Not at all Total Score: 0 Self-Efficacy 90-Day Re-eval Assessment We would like to know how confident you are in doing certain activities. Please select your confidence level for:: Select your confidence level for the following using the scale 1-10 where 1 is not at all confident and 10 is totally confident. Your score is the average of all 6 responses. Fatigue: How confident are you that you can keep the fatigue caused by your disease from interfering with the things you want to do? Select Number: 10 Physical Discomfort or Pain: How confident are you that you can keep the physical discomfort or pain of your disease from interfering with the things you want to do? Select Number: 10 Emotional Distress: How confident are you that you can keep the emotional distress caused by your disease from interfering with the things you want to do? Select Number: 10 Other Symptoms or Health Problems: How confident are you that you can keep other symptoms or health problems from interfering with the things you want to do? Select Number: 10 Different Tasks and Activities: How confident are you that you can do the different tasks and activities needed to manage your health condition so as to reduce your need to see a doctor? Select Number: 10 Medication: How confident are you that you can do things other than just taking medication to reduce how much your illness affects your everyday life? Select Number: 10 Total Score:: 10
[2019-11-08 06:42] VITALS: BP 122/70; BP 158/82; BMI 25.9
== END 2019-11-23 23:59 ==
LOC: CR 11:30
PROVIDERS: PCP Family Medicine
DX: I25.10 Atherosclerotic heart disease of native coronary artery without angina pectoris (principal); I10 Essential (primary) hypertension; E78.5 Hyperlipidemia, unspecified; Z95.1 Presence of aortocoronary bypass graft
CPT/HCPCS: 93798

== ENCOUNTER → 2019-11-26 | Outpatient (CLI) | payer MEDICARE, SELFPAY ==
[2019-07-05 10:44] VITALS: BMI 25.8
[2019-11-08 06:42] VITALS: BMI 25.9
== END | disposition home or self-care (01) ==
LOC: LABSPEC 11:29
PROVIDERS: PCP Family Medicine; Referring Provider Family Medicine; Visit Provider Family Medicine
DX: Z03.818 Encounter for observation for suspected exposure to other biological agents ruled out (principal)
CPT/HCPCS: 87635; 94799; U0003

== ENCOUNTER 2019-11-27 08:56 | Observation (INO) | payer MEDICARE, SELFPAY ==
[2019-07-05 10:44] VITALS: BMI 25.8
[2019-11-08 06:42] VITALS: BMI 25.9
[2019-11-27] VITALS (10 sets, daily range): BP systolic 148–172; BP diastolic 89–100; PULSE 54–62; RESP 14–19; TEMP 36.4–36.9; O2SAT 96–98; BMI 25.2; BMI 25.3
--- NOTE | 2019-11-27 09:11 | EKG12_ITS ---
Test Reason : CP Blood Pressure : / mmHG Vent. Rate : 060 BPM Atrial Rate : 060 BPM P-R Int : 178 ms QRS Dur : 118 ms QT Int : 404 ms P-R-T Axes : 046 -62 044 degrees QTc Int : 404 ms Normal sinus rhythm Left axis deviation Left ventricular hypertrophy with QRS widening Poor R wave progression Abnormal ECG Confirmed by LINDA DEL CASTILLO, VIANEY ([id number]), sound editor JP NIEVES ([id number] on 12/03/2019 1:31:03 PM Referred By: ERIC Confirmed By:VIANEY MCKEON MD
--- NOTE | 2019-11-27 09:23 | EKG12_ITS ---
Test Reason : CP ADMISSION Blood Pressure : / mmHG Vent. Rate : 052 BPM Atrial Rate : 052 BPM P-R Int : 180 ms QRS Dur : 116 ms QT Int : 426 ms P-R-T Axes : 065 -64 064 degrees QTc Int : 396 ms Sinus bradycardia Left axis deviation Left ventricular hypertrophy with QRS widening Abnormal ECG When compared with ECG of 01-JUN-2019 09:16, T wave inversion no longer evident in Inferior leads Confirmed by ESPERANZA DEL CASTILLO, GABRIELA ([id number]), film and video editor JP NIEVES ([id number]) on 11/29/2019 3:54:50 PM Referred By: VASU Confirmed By:GABRIELA MATA MD
[2019-11-27 09:32] LABS: Absolute Lymphocyte Count 1.25 X10^3/uL (0.83-4.51); Absolute Neutrophil Count 3.5 X10^3/uL (2.0-7.7); Basophil# 0.04 X10^3/uL; Basophil% 0.7 % (0-1); Eosinophil# 0.15 X10^3/uL; Eosinophils% 2.6 % (0-5); Hematocrit 53.8 % (40-54); Hemoglobin 17.7 g/dL (13.0-16.5); Lymphocyte # 1.25 X10^3/ul (4.0); Lymphocyte % 21.7 % (19-41); Mean Corp Hgb Conc 32.9 g/dL (32-36); Mean Corpuscular Hgb 30.3 pg (27.0-32.0); Mean Platelet Vol. 9.6 fl (6.2-12.0); Monocyte# 0.75 X10^3/uL; NRBC Flagged by Analyzer 0 % (0-5); Neutrophil # 3.53 X10^3/uL (2.7-7.7); Neutrophil % 61.3 % (47-70); Platelet Count 307 K/mm3 (150-450); RBC Distribution Width CV 12.5 % (11.6-14.6); RBC Distribution Width SD 42.1 fl (35.1-43.9); Red Blood Count 5.85 M/mm3 (4.6-6.2); White Blood Count 5.8 K/mm3 (4.4-11.0)
--- NOTE | 2019-11-27 09:32 | ED.DCSUM_ITS ---
- ER Visit Summary Date of Service: 11/27/19 Chief Complaint: [Chest pain] History of Present Illness: The patient is a 74 M [presents to the emergency department with an episode of chest pain that started this morning as he was waking up. Patient noted discomfort in the left side of his chest that he desc ribed as a tightness. Patient also felt like maybe his heart was racing. Patient feels short of breath with it. He denies any nausea or vomiting. He states the discomfort seemed to radiate to his left shoulder and arm as well as to his back. 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 Patient does describe some increased shortness of breath with activity recently. Patient also states that over last 5 days has had a runny nose as well as sinus congestion, sore throat, and minimal cough that is nonproductive. Patient denies any fevers. He denies any exposures to individuals with COVID-19. He denies recent travel. Patient states that he did take 2 baby aspirin this morning and refused any more aspirin from the squad. Currently his chest pains resolved. Patient states that the discomfort does remind him of the discomfort he had prior to requiring CABG. Patient has history of hypertension and high cholesterol as well.] Physical Examination: [HEENT-PERRLA, EOMI. Cranial nerves II through XII grossly intact. TMs clear. Mucous membranes moist. No adenopathy. Cardiovascular-regular rate and rhythm without murmur or ectopy Lungs-clear to auscultation, chest wall stable without crepitus or subcu emphysema Abdomen-normoactive bowel sounds, soft, nontender, no rebound or rigidity, no peritoneal signs. Extremities-intact ?4, normal range of motion, normal pulses, atraumatic] Test Results: [EKG obtained on arrival shows sinus rhythm with a ventricular rate of 60 bpm with LVH.] CBC with differential obtained was unremarkable. Chemistries unremarkable. Troponin less than 0.015. Chest x-ray showed nothing acute. COVID-19 test ordered and pending. Emergency Department Course and Treatment: [Case was discussed with patient's hearing screen coordinator who recommended admission for further evaluation of suspected unstable angina.] Treatment Plan: [Admit] Disposition: [Admit] Impression: [Chest pain-rule out acute coronary syndrome] This note was generated with [employer] dictation software. It may contain incorrect words, spelling, and punctuation that were not noted in review of the chart prior to signing ED Disposition - Plan for ED Patient: Referrals: Marcel Santos MD [Primary Care Provider] -
--- NOTE | 2019-11-27 09:40 | RAD_ITS ---
STUDY: X-RAY CHEST REASON FOR EXAM: Male, 74 years old. LEFT CHEST PRESSURE THIS AM. RESOLVED SINCE ARRIVAL, COVID TEST YESTERDAY WITH SORE THROAT, FATIGUE, SOB WITH EXERTION -- CABG X3 TECHNIQUE: Single AP portable view of the chest. COMPARISON: Comparison is made with prior study dated 06/01/2019. FINDINGS: EKG electrodes are seen. The lungs are clear and expanded. There is no demonstrated pleural abnormality. Sternal cerclage wires and vascular clips are present from a prior sternotomy and coronary artery bypass graft procedure (CABG). Normal mediastinum and meka. Normal visualized pulmonary arteries. There is atherosclerotic calcification of the aortic arch with tortuosity. Normal visualized thoracic spine. Stable deformity of the proximal shaft of the right humerus. There is no demonstrated abnormality of the visualized soft tissue structures of the upper abdomen. RAD/Chest 1 View (Portable) IMPRESSION: No acute abnormality is seen. Electronically Signed: Mo Mares, at 10:15 EDT , Service support ,
[2019-11-27 09:48] LABS: Anion Gap 2 (5-15); BUN 20 mg/dL (7-18); BUN/Creat Ratio 18.3 RATIO (10-20); Calcium,Total 9.2 mg/dL (8.5-10.1); Chloride 108 mmol/L (98-107); Creatinine, Serum 1.09 mg/dL (0.70-1.30); EST Glomerular Filtration Rate 70 mL/min (>60); Est Glom Filt Rate - Afr Amer 85 mL/min (>60); Estimated Creatinine Clearance 58.39 ml/min; Glucose 131 mg/dL (74-106); Potassium 3.9 mmol/L (3.5-5.1); Sodium Level 140 mmol/L (136-145)
[2019-11-27] MEDS: 0.9% Normal Saline 1,000 ML 150 ML IV (10:07)
--- NOTE | 2019-11-27 11:18 | NURSING ---
CALLING DR DERIK TODD FOR DR REYES [phone]
--- NOTE | 2019-11-27 11:24 | NURSING ---
DR TODD'S PAGER [phone]
--- NOTE | 2019-11-27 11:36 | NURSING ---
DR LEONE FOR DR REYES
--- NOTE | 2019-11-27 11:42 | NURSING ---
PCU OBS JACKSON LEONE
--- NOTE | 2019-11-27 13:24 | PCM.HP.STD ---
<Estella Mccall - Last Filed: 11/27/19 14:07> Problem List (1) Hypertension Status: Chronic (2) Hyperlipidemia Status: Chronic (3) Kidney stones Status: Resolved (4) BPH (benign prostatic hyperplasia) Status: Chronic (5) CAD (coronary artery disease) Status: Chronic History of Present Illness Date of Admission: 11/27/19 Chief Complaint: Chest pain. The patient is a 74 year old M who presents to the emergency room due to chest pain. Patient states last Tuesday he developed a runny nose and sore throat. He denies cough, fever, chills. Patient states he had a virtual visit due to concern for COVID. He was tested 11/26/2019 and results pending however test repeated in ER which was negative. He reports mild shortness of breath, denies increased shortness of breath with exertion. This morning he woke up with chest tightness on the left side of his chest with associated palpitations and increased shortness of breath. Patient recently completed cardiac rehab and states he had no symptoms during rehab. He underwent CABG May 2019 at [facility]. Patient states his symptoms this morning were similar to prior to CABG. He has a past medical history of CAD with CABG at [facility] May 2019, hypertension, hyperlipidemia, BPH, history of kidney stones. Past Medical History Past Medical History (Chronic Problems): Chronic Problems (Last Updated 07/05/19 @ 10:27 by Bertram Gould CRT, CAMERA SYSTEMS ENGINEER, BS) Hypertension (Chronic) Hyperlipidemia (Chronic) BPH (benign prostatic hyperplasia) (Chronic) CAD (coronary artery disease) (Chronic) Medical History: Medical History (Last Updated 07/05/19 @ 10:27 by Bertram Gould CRT, CAMERA SYSTEMS ENGINEER, BS) Acne rosacea L71.9 Atherosclerotic heart disease of redding coronary artery without angina pectoris I25.10 Dyslipidemia E78.5 Dyspnea on exertion R06.09 Former smoker, stopped smoking in distant past Z87.891 Kidney stones N20.0 HARLEY on CPAP G47.33, Z99.89 Hypertension I10 Allergies No Known Allergies Allergy (Verified 06/01/19 09:08) Home Medications: Ambulatory Orders Medication Instructions Recorded Aspirin E.C. [Ecotrin] 162 mg PO DAILY@0800 01/22/14 Atorvastatin Calcium [Lipitor] 40 mg PO QHS 01/22/14 Acetaminophen [Tylenol Extra 500 - 1,000 mg PO Q6H PRN PRN 07/05/19 Strength] Sennosides/Docusate Sodium [Colace 2 ea PO BID 07/05/19 2-in-1 Tablet] Tamsulosin HCl [Flomax] 0.4 mg PO BID 07/05/19 Cholecalciferol (Vitamin D3) 2,000 unit PO DAILY 11/27/19 [Vitamin D3] Cimetidine [Tagamet Hb] 200 mg PO DAILY 11/27/19 Metoprolol Tartrate 11/27/19 Surgical History: Surgical History (Last Updated 07/05/19 @ 10:27 by Bertram Gould, FUR CUTTER, CAMERA SYSTEMS ENGINEER, BS) H/O hernia repair Z98.890, Z87.19 H/O lithotripsy Z98.890 Hx of tonsillectomy Z90.89 Surgical History: herniorrhaphy, tonsillectomy, - - Kidney stone removal, cystoscopy. CABG. Psychiatric History: No pertinent psych hx Lives: Spouse/ Significant Other Smoking Status: Former smoker - Quit in 1970s Alcohol: Occasional Drugs: None - *Family History Maternal History Items: Cancer, - - Kidney stones Paternal History Items: Hypertension Review of Systems Constitutional: Denies: Chills, Fever, Weight Change HEENT: Reports: Nasal Congestion, Sore Throat. Denies: Head Aches, Sinus Congestion, Sinus Drainage Cardiovascular: Reports: Chest Pain, Palpitations. Denies: Edema, Light Headedness, Syncope Respiratory: Reports: Shortness of breath upon exertion. Denies: Cough Gastrointestinal: Denies: Abdominal Pain, Nausea, Vomiting Genitourinary: Denies: Dysuria Musculoskeletal: Denies: Joint Pain, Joint Tenderness Skin: Denies: Rash, Wounds Neurological: Denies: Numbness, Tingling, Focal weakness Psychiatric: Denies: Anxiety, Depression, Homicidal Ideations, Suicidal Ideations Hematologic/ Lymphatic: Denies: Easy Bruising, Easy Bleeding VTE Information - Inpt Only VTE Present on Admission: No VTE Mechan Device Prophylaxis: None VTE Pharm Prophylaxis ordered?: Yes - Physical Exam Vitals/I&O's: Vital Signs Temp Pulse Resp BP Pulse Ox 97.6 F L 57 L 16 172/100 H 98 11/27/19 08:57 11/27/19 12:00 11/27/19 12:00 11/27/19 12:00 11/27/19 12:00 Oxygen Delivery Method Room Air Weight: 166 lb Body Mass Index (BMI) 25.2 General: Alert, Oriented x3, Cooperative HEENT: Atraumatic, PERRLA, EOMI, Normocephalic Neck: Supple, No JVD, Negative Carotid Bruits Lungs: Clear to auscultation, Normal air movement Cardiovascular: Regular rate, No murmurs Abdomen: Bowel Sounds Present, Soft, Non Tender, Non-Distended Extremities: No clubbing, No cyanosis, No edema, Capillary Refill Less than 3 Seconds Skin: No rashes, No breakdown Musculoskeletal: No Tenderness to Palpation of Joints or Extremities Neurological: Cranial nerves II-XII grossly intact, Neuro grossly intact Psych/Mental Status: Normal Affect, Appropriate Laboratory Results 11/27/19 09:00: WBC 5.8, RBC 5.85, Hgb 17.7 H, Hct 53.8, MCV 92.0, MCH 30.3, MCHC 32.9, RDW Std Deviation 42.1, RDW Coeff of [place] 12.5, Plt Count 307, MPV 9.6, Immature Gran % (Auto) 0.700, Neut % (Auto) 61.3, Lymph % (Auto) 21.7, Concho % (Auto) 13.0 H, Eos % (Auto) 2.6, Baso % (Auto) 0.7, Absolute Neuts (auto) 3.5, Absolute Lymphs (auto) 1.25, Nucleated RBC % 0 11/27/19 09:00: Sodium 140, Potassium 3.9, Chloride 108 H, Carbon Dioxide 30.0, Anion Gap 2 L, BUN 20 H, Creatinine 1.09, Estim Creat Clear Calc 58.39, Est GFR (MDRD) Af Amer 85, Est GFR (MDRD) Non-Af 70, BUN/Creatinine Ratio 18.3, Glucose 131 H, Calcium 9.2, Troponin I < 0.015 11/27/19 09:30: COVID-19 (MARYSOL) Not Detected Current Medications Sodium Chloride () 1,000 mls @ 150 mls/hr IV .[id number] NALDO Last Admin: 11/27/19 10:07 Dose: 150 mls/hr Documented by: Assessment/Plan All Active Problems (Last Updated 07/05/19 @ 10:27 by Bertram Gould CRT, CAMERA SYSTEMS ENGINEER, BS) Kidney stones (Resolved) 1. Chest pain-EKG without evidence of acute ischemia. Initial troponin negative. Trend enzymes. Plan for stress test in a.m. 2. CAD with history of CABG-CABG May 2019 at [facility]. Continue aspirin, statin, beta-arabella. 3. Hypertension-elevated on admission. Continue home metoprolol regimen. PRN hydralazine for systolic blood pressure greater than 160. 4. Hyperlipidemia-continue statin. 5. BPH-continue Flomax. DVT prophylaxis-Lovenox subcu This patient was seen by ANALI Mclain under the supervision of Dr. Garay. <Tony Garay F - Last Filed: 11/27/19 16:07> History of Present Illness The patient is a 74 year old M [] Past Medical History Medical History: Medical History (Last Updated 07/05/19 @ 10:27 by Bertram Gould CRT, CAMERA SYSTEMS ENGINEER, BS) Acne rosacea L71.9 Atherosclerotic heart disease of redding coronary artery without angina pectoris I25.10 Dyslipidemia E78.5 Dyspnea on exertion R06.09 Former smoker, stopped smoking in distant past Z87.891 Kidney stones N20.0 HARLEY on CPAP G47.33, Z99.89 Hypertension I10 Allergies No Known Allergies Allergy (Verified 06/01/19 09:08) Surgical History: Surgical History (Last Updated 07/05/19 @ 10:27 by Bertram Gould CRT, CAMERA SYSTEMS ENGINEER, BS) H/O hernia repair Z98.890, Z87.19 H/O lithotripsy Z98.890 Hx of tonsillectomy Z90.89 - Physical Exam Vitals/I&O's: Vital Signs Temp Pulse Resp BP Pulse Ox 98.4 F 62 16 166/100 H 98 11/27/19 14:09 11/27/19 15:23 11/27/19 14:09 11/27/19 14:09 11/27/19 14:09 Oxygen Delivery Method Room Air Weight: 162 lb Body Mass Index (BMI) 25.3 Intake and Output for Last 24 Hours 11/25/19 11/26/19 11/27/19 23:59 23:59 23:59 Intake Total 640 / 640 Balance 640 / 640 Laboratory Results 11/27/19 09:00: WBC 5.8, RBC 5.85, Hgb 17.7 H, Hct 53.8, MCV 92.0, MCH 30.3, MCHC 32.9, RDW Std Deviation 42.1, RDW Coeff of [place] 12.5, Plt Count 307, MPV 9.6, Immature Gran % (Auto) 0.700, Neut % (Auto) 61.3, Lymph % (Auto) 21.7, Concho % (Auto) 13.0 H, Eos % (Auto) 2.6, Baso % (Auto) 0.7, Absolute Neuts (auto) 3.5, Absolute Lymphs (auto) 1.25, Nucleated RBC % 0 11/27/19 09:00: Sodium 140, Potassium 3.9, Chloride 108 H, Carbon Dioxide 30.0, Anion Gap 2 L, BUN 20 H, Creatinine 1.09, Estim Creat Clear Calc 58.39, Est GFR (MDRD) Af Amer 85, Est GFR (MDRD) Non-Af 70, BUN/Creatinine Ratio 18.3, Glucose 131 H, Calcium 9.2, Troponin I < 0.015 11/27/19 09:30: COVID-19 (MRAYSOL) Not Detected 11/27/19 14:12: Troponin I < 0.015 Current Medications Acetaminophen (Tylenol) 650 mg PO Q6H PRN PRN PRN Reason: Pain Score 1-10/Temp > 100.7 F Enoxaparin Sodium (Lovenox) 40 mg SC DAILY NALDO Sodium Chloride () 250 mls @ 15 mls/hr IV .[id number] PRN PRN Reason: Saline Flush Sodium Chloride () 250 mls @ 15 mls/hr IV .[id number] PRN PRN Reason: Additional IVPB Infusion Nitroglycerin (Nitrostat) 0.4 mg SUBLINGUAL Q5M PRN PRN Reason: CARDIAC/CHEST PAIN Ondansetron HCl (Zofran) 4 mg IV Q8H PRN PRN PRN Reason: NAUSEA/VOMITING Sodium Chloride () 10 - 40 ml IV UD PRN PRN Reason: SALINE FLUSH Addendum: Dr. Garay I personally examined the patient and reviewed the chart. I agree with the above. 74-year-old male with a history of CAD status post CABG a couple of months ago presents with chest pain. He says it started this morning at rest but resolved on the way here to the hospital. His initial troponin was unremarkable and his EKG was also normal. 2 troponins are normal. Will obtain a stress test in the morning and if that is normal he can be discharged tomorrow. Of note he was having some runny nose and sore throat, COVID test here in the ER was negative. OBSV E&M: [id number] Initial observation care L2
[2019-11-27] MEDS: Senna/Docusate Sodium 1 Tablet 2 TABLET PO (18:53)
[2019-11-27] MEDS: Tamsulosin HCl 0.4 MG Capsule PO (18:53)
[2019-11-27] MEDS: Metoprolol Tartrate 25 MG Tablet PO (18:53)
[2019-11-27] MEDS: Acetaminophen 325 MG Tablet 650 MG PO (20:05)
[2019-11-27] MEDS: Atorvastatin Calcium 40 MG Tablet PO (22:05)
[2019-11-28 02:00] VITALS: BP 130/64; PULSE 54; RESP 17; TEMP 36.6; O2SAT 96
[2019-11-28 04:35] VITALS: PULSE 76
[2019-11-28 05:35] VITALS: BP 124/73; PULSE 57; RESP 17; TEMP 36.4; O2SAT 97
[2019-11-28] MEDS: Aspirin E.C. 81 MG Tablet 162 MG PO (05:37)
[2019-11-28] MEDS: 0.9% Saline Lock 10 ML Syringe IV (05:37)
[2019-11-28 06:37] LABS: Anion Gap 5 (5-15); BUN 22 mg/dL (7-18); Calcium,Total 8.3 mg/dL (8.5-10.1); Chloride 110 mmol/L (98-107); Creatinine, Serum 0.92 mg/dL (0.70-1.30); EST Glomerular Filtration Rate 86 mL/min (>60); Est Glom Filt Rate - Afr Amer 104 mL/min (>60); Estimated Creatinine Clearance 66.86 ml/min; Glucose 97 mg/dL (74-106); Sodium Level 142 mmol/L (136-145)
[2019-11-28 06:48] VITALS: PULSE 60
[2019-11-28] MEDS: Tamsulosin HCl 0.4 MG Capsule PO (10:55)
[2019-11-28] MEDS: Famotidine 20 MG Tablet PO (10:55)
[2019-11-28 10:56] VITALS: PULSE 66
[2019-11-28] MEDS: Senna/Docusate Sodium 1 Tablet 2 TABLET PO (10:56)
[2019-11-28] MEDS: Metoprolol Tartrate 25 MG Tablet PO (10:56)
[2019-11-28 12:05] VITALS: BP 124/77; PULSE 62; RESP 16; TEMP 36.6; O2SAT 95
[2019-11-28] MEDS: Acetaminophen 325 MG Tablet 650 MG PO (12:10)
--- NOTE | 2019-11-28 12:45 | CASEMGMT ---
RN STONE NOTE: To room to talk w/pt and review LANGLEY form. Pt resting in bed, awake/alert/oriented. LANGLEY form reviewed, questions answered, and form signed by pt. Pt denies having any further questions. Copy of form made/placed on chart and original given to pt. Pt made aware to ask for RN CM if any further questions arise. He voices understanding. Evelia SPRAGUE RN CM
--- NOTE | 2019-11-28 13:30 | STRESSREP ---
Stress Test Report Date: 11/28/2019 Procedure: Pharmacologic stress nuclear imaging study Indications: Chest pain Consent: Per the patient Procedure: The patient underwent pharmacologic (Regadenoson) evaluation with a peak heart rate of 80 beats per minute (54 %predicted maximal heart rate) and a peak blood pressure of 120/82 mmHg. The baseline ECG demonstrated normal sinus rhythm. EKG during lexiscan infusion revealed no significant ischemic changes. EKG post infusion revealed no significant ischemic changes [There were no cardiac dysrhythmias pretest, during pharmacologic infusion, or recovery]. [There was no complaint of chest discomfort during pharmacologic infusion or recovery]. The examination was discontinued secondary to completion of protocol. Impression: 1. Lexiscan stress test test is negative for Lexiscan infusion induced EKG changes of ischemia. 2. Lexiscan stress test test is negative for Lexiscan infusion induced chest pain. 3. Results of the nuclear portion of the test is as below Myocardial perfusion imaging study: Technique: The patient was injected with 11.8 millicuries of technetium 99m Cardiolite and subsequently rest SPECT Cardiolite nuclear imaging was obtained in the horizontal long, vertical long, and short axis views. The patient underwent pharmacologic (Regadenoson) evaluation. Please see above for details. The patient was injected with 33.1 millicuries of technetium 99m Cardiolite and subsequently stress SPECT Cardiolite nuclear imaging was obtained in the horizontal long, vertical long, and short axis views. A gated Cardiolite study at peak stress was obtained. Interpretation: Rest and stress SPECT Cardiolite nuclear imaging status post realignment, normalization, and attenuation correction demonstrate mildly decreased radioisotope uptake in the inferior wall on both the rest and stress images prior to attenuation correction. After attenuation correction there are no significant fixed or reversible defects suggestive of ischemia or infarction. This is suggestive of diaphragmatic attenuation artifact. Gated images reveal no significant regional wall motion abnormalities. The reported LVEF is 65%. Impression: 1. There is no evidence of significant ischemia or infarction. 2. Estimated ejection fraction is 65%. This note was generated with [employer] software. It may contain incorrect words, spelling, and punctuation that were not noted in checking the note before signing.
--- NOTE | 2019-11-28 13:41 | PCM.DC ---
- Discharge Diagnoses Current Active Problems: Current Active and Chronic Problems (Last Updated 07/05/19 @ 10:27 by Bertram Gould, HOME THERAPY TEACHER, INTERFACE CONTROL OFFICER, BS) BPH (benign prostatic hyperplasia) (Chronic) CAD (coronary artery disease) (Chronic) You will use the following diet at home:: Cardiac Discharge Activity: Return to Normal Activity Call your doctor if you observe: Shortness of breath, Dizziness, Fainting spells, Chest pain Allergies/Adverse Reactions: Allergies No Known Allergies Allergy (Verified 06/01/19 09:08) Medications to take at Discharge Aspirin E.C. [Ecotrin] 162 mg PO DAILY@0800 01/22/14 Atorvastatin Calcium [Lipitor] 40 mg PO QHS 01/22/14 Acetaminophen [Tylenol] 500 - 1,000 mg PO Q6H PRN PRN 07/05/19 Sennosides/Docusate Sodium [Colace 2-in-1 Tablet] 1 ea PO BID 07/05/19 Tamsulosin HCl [Flomax] 0.4 mg PO BID 07/05/19 Cholecalciferol (Vitamin D3) [Vitamin D3] 2,000 unit PO DAILY 11/27/19 Cimetidine [Tagamet Hb] 200 mg PO DAILY 11/27/19 Metoprolol Tartrate 25 mg PO BID 11/27/19 Primary Care Physician: Marcel Santos MD [Primary Care Provider] - Please follow up with your Primary Care Physician in: 1 Week Test Results: Test results from this visit will be discussed in further detail at your follow-up appointment, if applicable. Please Follow Up With: Primary Cardiology When: 1 week Proposed Discharge Date: 11/28/19
--- NOTE | 2019-11-28 13:42 | PCM.DC.SUM ---
<Estella cMcall - Last Filed: 11/28/19 13:45> Discharge Date and Diagnosis Date of Admission: 11/27/19 Date of Discharge: 11/28/19 - Primary Discharge Diagnosis Acute Problems: 1. Chest pain, ACS ruled out 2. CAD with history of CABG 3. Hypertension 4. Hyperlipidemia 5. BPH - Secondary Discharge Diagnosis Chronic Problems: Chronic Problems (Last Updated 07/05/19 @ 10:27 by Bertram Gould, GREETER GUEST SERVICES, COUNTER SUPPLY WORKER, BS) Hypertension (Chronic) Hyperlipidemia (Chronic) BPH (benign prostatic hyperplasia) (Chronic) CAD (coronary artery disease) (Chronic) Hospital Course and Treatment Imaging Results: Diagnostic Data Chest X-Ray 11/27/19 09:40 IMPRESSION: No acute abnormality is seen. Electronically Signed: Mo Suzan, at 10:15 EDT , Service support , Operations: None Procedures: Stress test Summary of Care Provided: The patient is a 74 year old M admitted 11/27/2019 due to chest pain. 1. Chest pain, ACS ruled out-EKG without evidence of acute ischemia. Troponin negative. Patient underwent nuclear stress test which was negative for ischemia. Estimated ejection fraction 65%. Follow-up with PCP in 1 week. Follow-up with primary urology physician assistant in 1 to 2 weeks. 2. CAD with history of CABG-CABG May 2019 at [facility]. Continue aspirin, statin, beta-francesca. 3. Hypertension-Continue home metoprolol regimen. 4. Hyperlipidemia-continue statin. 5. BPH-continue Flomax. General: Alert, Oriented x3, Cooperative HEENT: Atraumatic, PERRLA, EOMI, Normocephalic Neck: Supple, No JVD, Negative Carotid Bruits Lungs: Clear to auscultation, Normal air movement Cardiovascular: Regular rate, No murmurs Abdomen: Bowel Sounds Present, Soft, Non Tender, Non-Distended Extremities: No clubbing, No cyanosis, No edema, Capillary Refill Less than 3 Seconds Skin: No rashes, No breakdown Musculoskeletal: No Tenderness to Palpation of Joints or Extremities Neurological: Cranial nerves II-XII grossly intact, Neuro grossly intact Psych/Mental Status: Normal Affect, Appropriate Patient seen and examined prior to discharge. Physical assessment as noted above. Patient is stable for discharge with follow up recommendations as noted above. This patient was seen by ANALI Mclain under the supervision of Dr. Garay. - Physical Exam Vitals/I&O's: Vital Signs Temp Pulse Resp BP Pulse Ox 97.8 F 62 16 124/77 H 95 11/28/19 12:05 11/28/19 12:05 11/28/19 12:05 11/28/19 12:05 11/28/19 12:05 Oxygen Delivery Method Room Air Weight: 162 lb Body Mass Index (BMI) 25.3 Intake and Output for Last 24 Hours 11/26/19 11/27/19 11/28/19 23:59 23:59 23:59 Intake Total 990 / 1310 710 / 710 Balance 990 / 1310 710 / 710 Laboratory Results 11/27/19 14:12: Troponin I < 0.015 11/27/19 17:18: Troponin I < 0.015 11/28/19 05:45: Sodium 142, Potassium 4.0, Chloride 110 H, Carbon Dioxide 27.0, Anion Gap 5, BUN 22 H, Creatinine 0.92, Estim Creat Clear Calc 66.86, Est GFR (MDRD) Af Amer 104, Est GFR (MDRD) Non-Af 86, BUN/Creatinine Ratio 24.0 H, Glucose 97, Calcium 8.3 L Current Medications Acetaminophen (Tylenol) 650 mg PO Q6H PRN PRN PRN Reason: Pain Score 1-10/Temp > 100.7 F Last Admin: 11/28/19 12:10 Dose: 650 mg Documented by: Aspirin (Ecotrin) 162 mg PO DAILY@0800 [facility] Last Admin: 11/28/19 05:37 Dose: 162 mg Documented by: Atorvastatin Calcium (Lipitor) 40 mg PO QHS [facility] Last Admin: 11/27/19 22:05 Dose: 40 mg Documented by: Enoxaparin Sodium (Lovenox) 40 mg SC DAILY [facility] Famotidine (Pepcid) 20 mg PO DAILY [facility] Last Admin: 11/28/19 10:55 Dose: 20 mg Documented by: Sodium Chloride () 250 mls @ 15 mls/hr IV .[id number] PRN PRN Reason: Saline Flush Sodium Chloride () 250 mls @ 15 mls/hr IV .[id number] PRN PRN Reason: Additional IVPB Infusion Metoprolol Tartrate (Lopressor (Beta Francesca)) 25 mg PO BID [facility] Last Admin: 11/28/19 10:56 Dose: 25 mg Documented by: Nitroglycerin (Nitrostat) 0.4 mg SUBLINGUAL Q5M PRN PRN Reason: CARDIAC/CHEST PAIN Ondansetron HCl (Zofran) 4 mg IV Q8H PRN PRN PRN Reason: NAUSEA/VOMITING Senna/Docusate Sodium (Senokot-S, Stephanie-Colace) 2 tablet PO BID [facility] Last Admin: 11/28/19 10:56 Dose: 1 tablet Documented by: Sodium Chloride () 10 - 40 ml IV UD PRN PRN Reason: SALINE FLUSH Last Admin: 11/28/19 05:37 Dose: 10 ml Documented by: Tamsulosin HCl (Flomax) 0.4 mg PO BID@0830,1730 [facility] Last Admin: 11/28/19 10:55 Dose: 0.4 mg Documented by: Discharge Diet: Low fat/ Low Cholesterol Discharge Activity: Return to Normal Activity Call your doctor if you observe: Shortness of breath, Dizziness, Fainting spells, Chest pain Home Medications: Medications to take at Discharge Aspirin E.C. [Ecotrin] 162 mg PO DAILY@0800 01/22/14 Atorvastatin Calcium [Lipitor] 40 mg PO QHS 01/22/14 Acetaminophen [Tylenol] 500 - 1,000 mg PO Q6H PRN PRN 07/05/19 Sennosides/Docusate Sodium [Colace 2-in-1 Tablet] 1 ea PO BID 07/05/19 Tamsulosin HCl [Flomax] 0.4 mg PO BID 07/05/19 Cholecalciferol (Vitamin D3) [Vitamin D3] 2,000 unit PO DAILY 11/27/19 Cimetidine [Tagamet Hb] 200 mg PO DAILY 11/27/19 Metoprolol Tartrate 25 mg PO BID 11/27/19 Primary Care Physician: Marcel Santos MD [Primary Care Provider] - Please follow up with your Primary Care Physician in: 1 Week Please Follow Up With: Primary Cardiology When: 1 week Disposition: Home Minutes spent on discharge:: 35 Patient Condition:: Stable Medical Necessity - Tobacco Use Smoking Status: Former smoker Meaningful Use Info Meaningful Use Diagnoses (Choose all that apply): None applicable <Tony Garay - Last Filed: 11/28/19 15:10> Discharge Date and Diagnosis - Secondary Discharge Diagnosis Chronic Problems: Chronic Problems (Last Updated 07/05/19 @ 10:27 by Bertram Gould, GREETER GUEST SERVICES, COUNTER SUPPLY WORKER, BS) Hypertension (Chronic) Hyperlipidemia (Chronic) BPH (benign prostatic hyperplasia) (Chronic) CAD (coronary artery disease) (Chronic) Hospital Course and Treatment Summary of Care Provided: The patient is a 74 year old M [] - Physical Exam Vitals/I&O's: Vital Signs Temp Pulse Resp BP Pulse Ox 97.8 F 62 16 124/77 H 95 11/28/19 12:05 11/28/19 12:05 11/28/19 12:05 11/28/19 12:05 11/28/19 12:05 Oxygen Delivery Method Room Air Weight: 162 lb Body Mass Index (BMI) 25.3 Intake and Output for Last 24 Hours 11/26/19 11/27/19 11/28/19 23:59 23:59 23:59 Intake Total 990 / 1310 710 / 710 Balance 990 / 1310 710 / 710 Laboratory Results 11/27/19 17:18: Troponin I < 0.015 11/28/19 05:45: Sodium 142, Potassium 4.0, Chloride 110 H, Carbon Dioxide 27.0, Anion Gap 5, BUN 22 H, Creatinine 0.92, Estim Creat Clear Calc 66.86, Est GFR (MDRD) Af Amer 104, Est GFR (MDRD) Non-Af 86, BUN/Creatinine Ratio 24.0 H, Glucose 97, Calcium 8.3 L Addendum: Dr. Garay I personally examined the patient and reviewed the chart. I agree with the above. 74-year-old male with a history of CAD status post CABG a couple of months ago presents with chest pain. He says it started this morning at rest but resolved on the way here to the hospital. His initial troponin was unremarkable and his EKG was also normal. 2 troponins are normal. Will obtain a stress test in the morning and if that is normal he can be discharged tomorrow. Of note he was having some runny nose and sore throat, COVID test here in the ER was negative. 11/28/2019: Stress test today was negative and he remained chest pain-free. He will need to follow-up with his primary urology physician assistant in 1 to 2 weeks but otherwise he is clear for discharge today. OBSV E&M: [id number] Observation care discharge
--- NOTE | 2019-11-28 14:08 | PHA.DC.MR ---
Pharmacy Service has performed discharge medication reconciliation for this patient. The patient's discharge medication list was reviewed for discrepancies and discrepancies were resolved. Home Medications Aspirin E.C. [Ecotrin] 162 mg PO DAILY@0800 01/22/14 Atorvastatin Calcium [Lipitor] 40 mg PO QHS 01/22/14 Acetaminophen [Tylenol] 500 - 1,000 mg PO Q6H PRN PRN 07/05/19 Sennosides/Docusate Sodium [Colace 2-in-1 Tablet] 1 ea PO BID 07/05/19 Tamsulosin HCl [Flomax] 0.4 mg PO BID 07/05/19 Cholecalciferol (Vitamin D3) [Vitamin D3] 2,000 unit PO DAILY 11/27/19 Cimetidine [Tagamet Hb] 200 mg PO DAILY 11/27/19 Metoprolol Tartrate 25 mg PO BID 11/27/19
== END 2019-11-28 13:42 | disposition home or self-care (01) ==
LOC: ED 11:20 → PCU 11:50
PROVIDERS: Admitting Provider Family Medicine; Emergency Provider Emergency Medicine; PCP Family Medicine; Visit Provider Family Medicine
DX: R07.89 Other chest pain (principal); R06.02 Shortness of breath; I10 Essential (primary) hypertension; E78.00 Pure hypercholesterolemia, unspecified; I25.10 Atherosclerotic heart disease of native coronary artery without angina pectoris; E78.5 Hyperlipidemia, unspecified; N40.0 Benign prostatic hyperplasia without lower urinary tract symptoms; L71.9 Rosacea, unspecified; G47.33 Obstructive sleep apnea (adult) (pediatric); Z79.899 Other long term (current) drug therapy; Z79.82 Long term (current) use of aspirin; Z95.1 Presence of aortocoronary bypass graft; Z87.891 Personal history of nicotine dependence
CPT/HCPCS: 36415; 71045; 78452; 80048; 84484; 85025; 87635; 93005; 93017; 96360; 96361; 99218; 99284; 99406; A9500; J7030; A4216; G0378; J2785; U0003

== ENCOUNTER 2020-03-08 17:48 | Emergency (ER) | payer MEDICARE, SELFPAY ==
[2019-11-08 06:42] VITALS: BMI 25.9
[2019-11-27 13:46] VITALS: BMI 25.3
[2020-03-08 17:49] VITALS: BP 163/90; PULSE 74; RESP 23; TEMP 36.9; O2SAT 98; BMI 26.4
--- NOTE | 2020-03-08 18:04 | RAD_ITS ---
STUDY: X-RAY CHEST REASON FOR EXAM: Male, 74 years old. CHEST PAIN THAT STARTED LATE MORNING THIS AM. PAIN RADIATES TO LEFT SHOULDER -- HX MA, CABG TECHNIQUE: Frontal view of the chest COMPARISON: 27 November 2019 FINDINGS: There are sternotomy wires. There is minor atelectasis.. There is an ill-defined right midlung zone opacity. There is no demonstrated pleural abnormality. Normal size heart. Normal mediastinum and meka. Normal visualized pulmonary arteries. Normal visualized aortic arch and descending thoracic aorta. Normal visualized thoracic spine. Normal visualized ribs, clavicles, and shoulders. There is no demonstrated abnormality of the visualized soft tissue structures of the upper abdomen. RAD/Chest 1 View (Portable) IMPRESSION: Minimal right midlung zone opacity, possibly early pneumonia versus atelectasis. Recommend short-term follow-up. Electronically Signed: Barbie Bolden, at 18:50 EST Tel , Service support ,
--- NOTE | 2020-03-08 18:07 | EKG12_ITS ---
Test Reason : CP Blood Pressure : / mmHG Vent. Rate : 067 BPM Atrial Rate : 067 BPM P-R Int : 176 ms QRS Dur : 120 ms QT Int : 398 ms P-R-T Axes : 048 -66 047 degrees QTc Int : 420 ms Normal sinus rhythm Left axis deviation Non-specific intra-ventricular conduction delay Poor R wave progression Abnormal ECG Confirmed by LINDA DEL CASTILLO, VIANEY ([id number]), order editor SERGO BURTON ([id number]) on 03/11/2020 12:48:38 PM Referred By: ABDULKADIR/CARMEN Confirmed By:VIANEY MCKEON MD
--- NOTE | 2020-03-08 18:07 | ED.VIS.CHEST ---
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 Not Worsened By: Exertion - Walked a mile with no worsening of pain, Movement of Arm, Movement of Torso, Eating, Palpation, Breathing Relieved By: Nothing - Tried Tums and nitroglycerin, no effect on his discomfort Associated Symptoms: Negative for: Nausea, Vomiting, Diaphoresis, Dyspnea, Cough, Fever, Lightheadedness, Acid Reflux, Palpitations Narrative: Patient had a bypass earlier this year about 11 months ago, and had chest pain in November for which she was admitted and had a negative nuclear stress test. Since around 7 hours prior to arrival he has had sharp nonpleuritic nonexertional left-sided discomfort. No associated symptoms. No recent illness. No leg swelling or pain. No orthopnea or dyspnea with exertion. He otherwise is feeling well. - Past Medical History (1) BPH (benign prostatic hyperplasia) Status: Chronic (2) CAD (coronary artery disease) Status: Chronic (3) Hyperlipidemia Status: Chronic (4) Hypertension Status: Chronic Past Medical History - Allergies and Home Meds Allergies/Adverse Reactions: Allergies No Known Allergies Allergy (Verified 03/08/20 17:48) Primary Care Physician: Marcel Santos MD [Primary Care Provider] - Surgical History: herniorrhaphy, tonsillectomy, - - Kidney stone removal, cystoscopy. CABG. Smoking Status: Former smoker - Family History Paternal Family History: Reports: Hypertension Maternal Family History: Reports: Cancer, - - Kidney stones Review of Systems General: Denies: Chills, Fever, Sweats Eyes: Denies: Visual changes - bilaterally, Diplopia ENT: Denies: Bilateral ear pain, Rhinorrhea, Sore throat Cardiovascular: Reports: Chest pain. Denies: Palpitations Respiratory: Denies: Dyspnea, Cough, Dyspnea on exertion Gastrointestinal: Denies: Abdominal pain, Nausea, Vomiting, Diarrhea, Melena, Hematochezia Genitourinary: Denies: Dysuria, Hematuria, Frequency Musculoskeletal: Denies: Myalgias, Neck pain, Back pain, Swelling, Extremity Pain Skin: Denies: Rash, Wounds Neurological: Denies: Headache, Weakness, Numbness Physical Exam Vital Signs/Narrative: Vital Signs Temp Pulse Resp BP Pulse Ox 03/08/20 17:49 98.5 F 74 23 H 163/90 H 98 Inital Vital Signs reviewed: Yes General: Well nourished, Well developed, No Acute Distress - Well-appearing, conversive in full sentences Head: Normocephalic, Atraumatic Eyes: Perrl, EOMI ENT: Moist mucous membranes, No rhinorrhea Neck: Supple, Nontender Cardiovascular: Regular rate, Regular rhythm, No murmurs, Normal S1, Normal S2. Negative for: Tachycardia Respiratory: No distress, CTA bilaterally, Chest nontender Abdomen: Soft, Nontender, Nondistended, Normal bowel sounds Back: Nontender, Normal Inspection Extremities: Nontender, No edema. Negative for: Calf Tenderness Skin: Normal color, No rash, No Trauma Neurological: Alert, Oriented x3, Cranial nerves II-XII grossly intact, Normal Strength, Normal Sensation, Normal Gait Psychological: Normal affect, Normal Mood Diagnostic/Tx/Re-eval Impressions Chest X-Ray 03/08/20 18:04 IMPRESSION: Minimal right midlung zone opacity, possibly early pneumonia versus atelectasis. Recommend short-term follow-up. Electronically Signed: Barbie Maureenshawn, at 18:50 EST Tel , Service support , 03/08/20 18:04 Chest 1 View (Portable) [RAD] Stat Laboratory Results 03/08/20 03/08/20 17:50 17:50 WBC 9.0 RBC 5.54 Hgb 16.7 H Hct 52.4 MCV 94.6 H MCH 30.1 MCHC 31.9 L RDW Std Deviation 41.6 RDW Coeff of [place] 11.9 Plt Count 296 MPV 9.4 Immature Gran % (Auto) 0.200 Neut % (Auto) 73.9 H Lymph % (Auto) 11.7 L [place] % (Auto) 12.1 H Eos % (Auto) 1.7 Baso % (Auto) 0.4 Absolute Neuts (auto) 6.6 Absolute Lymphs (auto) 1.05 Nucleated RBC % 0 Sodium 141 Potassium 4.1 Chloride 109 H Carbon Dioxide 31.0 Anion Gap 1 L BUN 21 H Creatinine 0.93 Estim Creat Clear Calc 66.14 Est GFR (MDRD) Af Amer 102 Est GFR (MDRD) Non-Af 84 BUN/Creatinine Ratio 22.5 H Glucose 123 H Calcium 8.9 Troponin I < 0.015 - Rhythm Strip Rhythm Strip: Sinus Rhythm Rate: 67 Ectopy: None - EKG Initial EKG Interpretation: Sinus Rhythm, No Acute Injury Pattern, LAFB Prior: Unchanged Treatment: GI Cocktail - improved RIAN Risk: Age >/= 65, H/O CAD, ASA within 7 days Score: 3 - Medical Decision Making Patient's work-up is negative with a negative EKG and troponin, with 7 hours of continuous discomfort. I do not think this is angina, furthermore his symptoms are atypical, so I think it is safe for him to be discharged home to follow-up. He sees Dr. Delong with [facility], for cardiology. Patient is comfortable with this overall plan, we discussed reasons to return. Of note, his chest x-ray showed atelectasis in the right middle lobe versus pneumonia. Do not think he has pneumonia, his symptoms are nonpleuritic, he has no cough, fevers, malaise, or any other systemic symptoms. If he develops any of these, he is advised to return to the ER. ED Disposition - Plan for ED Patient: Disposition: Home or Assisted Living Diagnosis: Atypical chest pain Instructions: ED Chest Pain Atypical Unkn Cause Referrals: Marcel Santos MD [Primary Care Provider] - 3-5 Days if not improving (and/or Dr. Delong)
[2020-03-08 18:15] LABS: Absolute Lymphocyte Count 1.05 X10^3/uL (0.83-4.51); Absolute Neutrophil Count 6.6 X10^3/uL (2.0-7.7); Basophil# 0.04 X10^3/uL; Basophil% 0.4 % (0-1); Eosinophil# 0.15 X10^3/uL; Eosinophils% 1.7 % (0-5); Hematocrit 52.4 % (40-54); Hemoglobin 16.7 g/dL (13.0-16.5); Lymphocyte # 1.05 X10^3/ul (4.0); Lymphocyte % 11.7 % (19-41); Mean Corp Hgb Conc 31.9 g/dL (32-36); Mean Corpuscular Hgb 30.1 pg (27.0-32.0); Mean Corpuscular Volume 94.6 fL (80-94); Mean Platelet Vol. 9.4 fl (6.2-12.0); Monocyte# 1.09 X10^3/uL; Monocyte% 12.1 % (0-10); NRBC Flagged by Analyzer 0 % (0-5); Neutrophil # 6.64 X10^3/uL (2.7-7.7); Neutrophil % 73.9 % (47-70); Platelet Count 296 K/mm3 (150-450); RBC Distribution Width CV 11.9 % (11.6-14.6); RBC Distribution Width SD 41.6 fl (35.1-43.9); Red Blood Count 5.54 M/mm3 (4.6-6.2)
[2020-03-08] MEDS: Mag Hydrox/Al Hydrox/Simeth 30 ML UDC PO (18:16)
[2020-03-08 18:33] LABS: Anion Gap 1 (5-15); BUN 21 mg/dL (7-18); BUN/Creat Ratio 22.5 RATIO (10-20); Calcium,Total 8.9 mg/dL (8.5-10.1); Chloride 109 mmol/L (98-107); Creatinine, Serum 0.93 mg/dL (0.70-1.30); EST Glomerular Filtration Rate 84 mL/min (>60); Est Glom Filt Rate - Afr Amer 102 mL/min (>60); Estimated Creatinine Clearance 66.14 ml/min; Glucose 123 mg/dL (74-106); Potassium 4.1 mmol/L (3.5-5.1); Sodium Level 141 mmol/L (136-145)
[2020-03-08 18:56] VITALS: BP 131/86; PULSE 68; RESP 20; O2SAT 96
--- NOTE | 2020-03-08 18:59 | ED.RN ---
pt states chest discomfort 06/04 since GI cockktail
[2020-03-08 19:14] VITALS: BP 153/93; PULSE 65; RESP 17
--- OUTSIDE RECORDS SUMMARY | 2020-04-16 05:20 | XMS RPT_ITS | CCD ---
:1945 External Reference #:[id number] Author Organization [facility] Care Team Providers Name Role Phone Bella Santos Primary Care Provider Medications Medication Name Sig Date Prescriber Location Acetaminophen acetaminophen 06-11-2019 Roberto Moseley) [facility] (TYLENOL) 500 mg Samples (90431) tablet Take 2 tablets by mouth every 6 hours. 0 06/11/2019 Active Comment: Take 2 tablets by mouth ever y 6 hours. Aspirin aspirin, enteric coated 06-11-2019 Roberto Moseley) [facility] (ASPIRIN, ENTERIC Samples (78296) COATED) 81 mg EC tablet Take 2 tablets by mouth once daily. 0 06/11/2019 Active Comment: Take 2 tablets by mouth once daily. atorvastatin atorvastatin (LIPITOR) 06-25-2019 Manju Patton [facility] 40 mg tablet Take 1 Beto (03252) tablet by mouth daily at bedtime. 90 tablet 3 06/25/2019 Active Comment: Take 1 tablet by mouth daily at bedtime. Cimetidine cimetidine (TAGAMET) 400 12-06-[address] [facility] mg tablet Take 400 mg by Provider (44 195) mouth once daily. 0 12/06/2019 Discontinued (Changing Therapy/Dosage Form) Comment: Take 400 mg by mouth once da melo. Loratadine loratadine (CLARITIN) 12-06-[address] [facility] 10 mg tablet Take 1 (18727) tablet by mouth once daily. 0 12/06/2019 Active Comment: Take 1 tablet by mouth once daily. Metoprolol metoprolol tartrate, 06-25-2019 Manju Patton [facility] short acting, Beto (25567) (LOPRESSOR) 25 mg tablet Take 1 tablet by mouth every 12 hours. 180 tablet 3 06/25/2019 Active Comment: Take 1 tablet by mouth every 12 hours. Omeprazole omeprazole (PRILOSEC) 20 03-03-[address] [facility] mg capsule Indications: (441 95) Chronic sore throat Take 1 capsule by mouth daily before breakfast. 1/2 hr before meal. 30 capsule 2 03/03/2020 Active omeprazole (PRILOSEC) 20 mg 12-06-2019 Calderon Soto [facility] (57953) capsule Indications: Chronic sore throat , Gastroesophageal reflux disease, esophagitis presence not specified Take 1 capsule by mouth daily before breakfast. 1/2 hr before meal. 30 capsule 2 12/06/2019 Active Comment: Take 1 capsule by mouth bridgette y before breakfast. 1/2 hr before meal. sennosides/docusate sodium sennosides/docusate sodium [facility] Provider [facility] (COLACE 2-IN-1 ORAL) (COLACE 2-IN-1 ORAL) Take (21073) by mouth. 0 Active sennosides/docusate sodium (COLACE 2-IN-1 [facility] (95848) ORAL) Take by mouth. 0 Active sennosides/docusate sodium (COLACE 2-IN-1 [facility] (60456) ORAL) Take by mouth. 0 Active sennosides/docusate sodium (COLACE 2-IN-1 [facility] (97097) ORAL) Take by mouth. 0 Active sennosides/docusate sodium (COLACE 2-IN-1 [facility] (60082) ORAL) Take by mouth. 0 Active sennosides/docusate sodium (COLACE 2-IN-1 [facility] (90405) ORAL) Take by mouth. 0 Active sennosides/docusate sodium (COLACE 2-IN-1 [facility] (14840) ORAL) Take by mouth. 0 Active sennosides/docusate sodium (COLACE 2-IN-1 [facility] (36862) ORAL) Take by mouth. 0 Active sennosides/docusate sodium (COLACE 2-IN-1 [facility] (79911) ORAL) Take by mouth. 0 Active sennosides/docusate sodium (COLACE 2-IN-1 [facility] (66336) ORAL) Take by mouth. 0 Active sennosides/docusate sodium (COLACE 2-IN-1 [facility] (02312) ORAL) Take by mouth. 0 Active sennosides/docusate sodium (COLACE 2-IN-1 [facility] (49360) ORAL) Take by mouth. 0 Active sennosides/docusate sodium (COLACE 2-IN-1 [facility] (36370) ORAL) Take by mouth. 0 Active Comment: Take by mouth. Sulfacetamide / Sulfur sulfacetamide 01-15-2019 Magen ([facility]) [facility] sodium-sulfur 9.8-4.8 Mukul (89198 ) % lotn Indications: Rosacea Apply thin film to affected area 1 times daily. 0 01/15/2019 Active Comment: Apply thin film to affected area 1 times daily. tamsulosin tamsulosin ER (FLOMAX) 12-06-[address] [facility] 0.4 mg Take 1 capsule (84135 ) by mouth twice daily. Dr. Shaffer. 0 12/06/2019 Active tamsulosin ER (FLOMAX) 06-11-2019 - Roberto Mora (Pa-C) [facility] 0.4 mg TAKE 1 CAPSULE BY 12-06-2019 Samples (21399) MOUTH ONCE DAILY. 30 capsule 0 06/11/2019 12/06/2019 Discontinued Comment: Take 1 capsule by mouth twic e daily. Dr. Shaffer. TAKE 1 CAPSULE BY MOUTH ONCE DAILY. traMADol traMADol (ULTRAM) 50 06-11-2019 - Roberto Mora (Pa-C) [facility] [place] mg tablet Indications: 12-06-2019 Samples Roberto (4 1454) Coronary artery B (Pa-C) Samples disease involving nez perce coronary artery of nez perce heart without angina pectoris TAKE 1 TABLET BY MOUTH EVERY 6 HOURS NEEDED FOR PAIN FOR UP TO 7 DAYS. 28 tablet 0 06/11/2019 12/06/2019 Discontinued Comment: TAKE 1 TABLET BY MOUTH EVERY 6 HOURS NEEDED FOR PAIN FOR UP TO 7 DAYS. Problems Active Problems Category Problem Name Status Date Location Coronary atherosclerosis History of coronary Active 0 - [facility] and other heart disease artery bypass grafting (64720) Disorders of lipid Dyslipidemia Active [facility] metabolism (59079) Esophageal disorders Gastroesophageal reflux Active [facility] disease (10134) Essential hypertension Hypertensive disorder Active [facility] (62409) Nonspecific chest pain Pain of intercostal space Active 12-16 - [facility] (37221) Other aftercare Post-discharge follow-up Active [facility] (23202) Other inflammatory Rosacea Active [facility] condition of skin (76119) Other lower respiratory Dyspnea on exertion Active [facility] disease (45574) Other lower respiratory Dyspnea Active [facility] disease (43534) Other nutritional; Disorder of carbohydrate Active 06-22-2019 - [facility] endocrine; and metabolic metabolism (44 195) disorders Other upper respiratory Posterior rhinorrhea Active [facility] infections (82361) Pleurisy; pneumothorax; Atelectasis Active [facility] pulmonary collapse (46750) Residual codes; Obstructive sleep apnea Active [facility] unclassified syndrome (04838) Screening and history of Ex-smoker Active [facility] [place] mental health and (22920) substance abuse codes Unclassified Patient encounter status Active [facility] [place] (64307) Past or Other Problems Category Problem Name Status Date Location Other screening for Pulmonary function Completed 12-27-2014 - [facility] suspected conditions studies abnormal (44 195) (not mental disorders or infectious disease) Other upper Sore throat - Completed 12-06-2019 - [facility] ic respiratory disease chronic (18718) Results Result Name Value Range Unit Interpretation Flag Date Location progress on 2020-03 PROGRESS HNO ID: [id number] Normal 04-03-2020 Nataliia [facility] Service: Radiology ( 72476) Author Type: Clinical Mill Attendant Type: Progress Notes Filed: 04/03/2020 2:06 PM Note Text: RADIOLOGY SERVICE PROGRESS NOTE SERVICE DATE: 04/03/2020 SERVICE TIME: 1:57 PM PATIENT IDENTITY VERIFICATION COMPLETED USING TWO (2) STANDA RD IDENTIFIERS: Name and Date of confirmed by patient arun bally and Name and Date of confirmed by identification band FALL SCREENING: Has the patient had 2 falls in the last year or 1 fall with injury or currently using an Ambulatory Assistive Devic e (Walker, Cane, Wheelchair, Crutches, etc.)? No PATIENT GENDER DATA: .male ALLERGIES: Reviewed and unchanged MEDICATIONS REVIEWED: Not applicable PATIENT RELEVANT IMPLANT DATA REVIEWED: Not Applicable CREATININE: Creatinine Date Value Ref Range Status 10/19/2019 0.91 0.73 - 1.22 mg/dL Final 06/09/2019 0.91 0.70 - 1.40 mg/dL Final 06/07/2019 0.78 0.70 - 1.40 mg/dL Final eGFR-All Other Races Date Value Ref Range Status 10/19/2019 >60 . Final Comment: eGFR (Estimated GFR) Units of measure: mL/min/1.73 meters sq uared eGFR is derived from the reexpressed MDRD Study equation usi ng the following parameters: serum creatinine, age, gender and race. The crea tinine assay has been calibrated to be traceable to IDMS. An eGFR <60 mL/min/1.73m2 for >3 months is consistent with c hronic kidney disease. Refer to KDOQI guidelines for clinical interpretati on. In patients with unstable renal function, e.g. those with ac tetlin kidney injury, the eGFR may not accurately reflect actual GFR. eGFR- Date Value Ref Range Status 10/19/2019 >60 Final P.O.C.T. RESULTS: N/A April 03, [address] PERFORMED: No IV SITE: Ambulatory: A peripheral IV was started in the [facility] antecubital site with a Angio cath: 22 gauge. POST EXAM PIV STATUS: Discontinued PROCEDURE TYPE: NM Stress: 12.7mCi Tk51q-Zvtfder was adminis tered IV for Rest Imaging at 12:45 by MARCY Rothman 31.6 mCi Nk14z-Ytr view was administered IV for Stress Imaging at 13:45 by Brittany RothmanT. PATIENT DISCHARGED TO: Ambulatory patient, left [facility] area. A Diagnostic radioactive procedure has taken place, with no further precautions necessary other than routine body substance prec autions. More information regarding radiation safety can be found using is link: [email or web address] SIGNATURE: Holli Sanchez [facility] PATIENT NAME: Jocelyn Loaiza DATE: April 03, 2020 TIME: 1:57 PM PAGER/CONTACT #: nm cardiac perf stress/exercise on 2020-04-03 NM CARDIAC PERF * * *Final Report* * * Normal 1 06-04-2019 [place] STRESS/EXERCISE DATE OF EXAM: Apr 03 2020 3:02PM [facility] MDN 0004 - NM CARDIAC PERF STRESS/EXERCISE / [id number] ([id number]) PROCEDURE REASON: I25.119-Coronary artery disease involving nez perce coronary artery of nez perce heart * * * * Physician Interpretation * * * * PATIENT: Name: MR. JOCELYN LOAIZA Age: 74 years Gender: M CONCLUSIONS: 1. SPECT Perfusion Study: Normal. 2. There is no scintigraphic evidence for inducible ischemia . 3. No evidence of scarred myocardium. 4. Left ventricle is normal in size. The left ventricle syst olic function is normal. 5. Right ventricle is normal in size. 6. This is a low risk scan. 1 LVEF % 60 Prior Study Comparison Prior nuclear cardiology exam was per formed on 01/28/15. Nuclear Med Report:1-Day Vs-72d-Oeymusslltq Exercise Stress Gated SPECT: Myocardial perfusion imaging was performed at rest 30 to 60 minutes following the IV injection of Tc-99m tetrofosmin. One minute prior to peak exercise, the patient was injected IV with Tc-99m tetro fosmin. Gated post stress tomographic imaging was performed 10 to 20 minut es later. See administered doses below. [facility] Date of service: 04/03/2020 1:09:22 PM Indication: CP - ECG interpretable AND able to exercise with interm/high pre-test probability Interpreting physician: Hank Owen DO Previous Cardiovascular Interventions: CABG (05/2019 x3) Height: 172.72 cm BSA: 1.91 m? Weight: 75.75 kg BMI: 25.4 kg/m? Imaging Protocol Limitation Reason G.I. uptake. Exam Type: Rest Stress Radiopharm: Tc-99m Tetrofosmin Tc-99m Tetrofosmin Dosage(mCi): 12.7 31.6 Atten Correction: not performed not performed Stress Agent: Treadmill Resting Blood Press: 142/80 mmHg Image Quality The overall study imaging quality was deemed to be good. The following technical issues were noted: G.I. uptake. FINDINGS: Left Ventricle Wall Motion: 1 - All segments are normal. 1 1 LVEF: 60 % LEFT VENTRICLE The left ventricle is normal in size. Left ventricular systo lic function is normal. Right Ventricle The right ventricle is normal in size. Stress Test Findings: There is no scintigraphic evidence for inducible ischemia. T here is no evidence of scarring. 20 at 4:08:42 PM Final Stress ECG Report: [facility] Date of service: 04/03/2020 1:09:22 PM Ordering physician: BELLA SANTOS Specialist: Stephy Herrera Or Director: Pamela Farah Stress ECG interpreting physician: Hank Owen DO PATIENT: Name: MR. JOCELYN LOAIZA Age: 74 years Gender: M Height: 172.72 cm BSA: 1.91 m? Weight: 75.75 kg BMI: 25.4 kg/m? STRESS ECG CONCLUSION: Conclusion: Normal STRESS ECG SUMMARY: The patient's resting heart rate was 68 bpm and blood pressu re was 142/80 mmHg. The patient exercised according to the Rizwan protocol. Total exercise time was 9 minutes and 30 seconds. The maximum hear t rate was 130 bpm, which is 89% predicted for age. METs achieved was 8 .7. The double product achieved was 79228. Peak heart rate was 130 b pm and peak blood pressure was 190/82 mmHg. STRESS ECG FINDINGS: Indications: CP - ECG interpretable AND able to exercise wit h low probability Diagnosis: Hyperlipidemia, Hypertension, Coronary Artery Dis ease and Sleep Apnea Medications: Betablocker, Statins and Alpha blockers Medications: ASA Resting ECG: Normal Sinus Rhythm Exercise Protocol: Rizwan Stress Test: +----+ +--------+ +---+---+---+---+----+ Step Speed (MPH) Grade(%) Time (min) HR SYS CLAUDIA RPE METS +----+ +--------+ +---+---+---+---+----+ 1 1.7 10.0 3.0 99 160 80 13 4.2 +----+ +--------+ +---+---+---+---+----+ 2 2.5 12.0 6.0 114 170 82 13 6.1 +----+ +--------+ +---+---+---+---+----+ 3 3.4 14.0 9.0 123 190 82 14 8.3 +----+ +--------+ +---+---+---+---+----+ +-----+ +--------+ +---+---+---+---+----+ Speed (MPH) Grade(%) Time (min) HR SYS CLAUDIA RPE METS +-----+ +--------+ +---+---+---+---+----+ Final 4.2 16.0 9.50 130 190 82 15 8.7 +-----+ +--------+ +---+---+---+---+----+ Recovery: +----+ +---+---+---+ Step Time (min) HR SYS CLAUDIA +----+ +---+---+---+ 1 1.0 110 150 76 +----+ +---+---+---+ 2 3.0 80 124 85 +----+ +---+---+---+ 3 5.0 82 124 76 +----+ +---+---+---+ Resting HR: 68 bpm Peak HR: 130 bpm (89% MPHR) Resting BP: 142 / 80 mmHg Peak BP: 190 / 82 mmHg Total Exercise Time: 9 minutes 30 seconds METS achieved: 8.7 Chronotropic response index (CRI): 1.10 Heart rate recovery (HRR): 20 bpm Rate Pressure Product (RPP): 76429 Toribio Treadmill Score: 9.2 Reason for test termination: End of Protocol. Symptoms during test: No symptoms. Heart rate response: Adequate heart rate response, Normal CR I (>0.8 Not on B Arabella) and Normal HRR (>12 or >[address]/EC) Functional Capacity: Good functional capacity Blood pressure response: Normal BP response ST segment and T wave changes: No ST changes Toribio Treadmill Score: Normal Toribio Treadmill Score (>=5) Arrhythmias: Unifocal PVCs and PACs Final Stress Protection Engineer Report: [facility] Date of service: 04/03/2020 1:09:22 PM Supervising physician: Hank Owen DO PATIENT: Name: MR. JOCELYN LOAIZA Age: 74 years Gender: M The supervising physician was present during the stress proc edure. 20 at 4:08:46 PM Final Anthropometrist: JONO Transcribe Date/Time: Apr 03 2020 1:09P Dictated by : HANK OWEN DO This examination was interpreted and the report reviewed and electronically signed by: HANK OWEN DO on Apr 03 2020 4:08PM EST [id number] No panel information on 2020-04-03 [facility] ([id number]) cnpn on 2020-04-02 CNPN Telephone ([facility]ME) Normal 04-02-2020 [facility] JOCELYN LOAIZA ([id number]) 1945 M () Date Time Provider Department 04/02/20 STEPHY HERRERA (RN) [facility] During your visit today, we recorded the following informati on about you: Stephy Herrera RN, RN 04/02/2020 1:16 PM Signed Spoke with patient regarding reminder for stress test tomorr ow and given instructions. Allergies As of Date: 04/02/2020 (No Known Allergies) Date Reviewed: 12/17/2019 Reviewed by: Theron Delong - Fully Assessed Reason for Visit: Reminder Call [[id number]] Prescriptions as of 04/02/2020 Sig: OMEPRAZOLE 20 MG CAPSULE,BENNY* Take 1 capsule by mouth daily * TAMSULOSIN 0.4 MG CAPSULE Take 1 capsule by mouth twice* LORATADINE 10 MG TABLET Take 1 tablet by mouth once d* ATORVASTATIN 40 MG TABLET Take 1 tablet by mouth daily * METOPROLOL TARTRATE 25 MG TAB* Take 1 tablet by mouth every * COLACE 2-IN-1 ORAL Take by mouth. ACETAMINOPHEN 500 MG TABLET Take 2 tablets by mouth every* ASPIRIN 81 MG TABLET,DELAYED * Take 2 tablets by mouth once * X AMIODARONE 200 MG TABLET Take 1 tablet by mouth once d* Patient not taking: Reported on 07/18/2019 X FUROSEMIDE 20 MG TABLET Take 1 tablet by mouth once d* SULFACETAMIDE SODIUM 9.8 %-HARRIS* Apply thin film to affected a * Problem List As Of Date 04/02/2020 Noted Resolved Dyspnea on exertion [R06.00] Dyslipidemia [E78.5] More... HTN (hypertension) [I10] More... Former smoker, stopped smoking in distant past * HARLEY on CPAP [G47.33, Z99.89] More... Abnormal PFTs (pulmonary function tests) [R94.2]12/27/2014 Rosacea [L71.9] Chest pain [R07.9] 06/01/2019 06/02/2019 More... Chest pain [R07.9] 06/05/2019 06/11/2019 CAD (coronary artery disease) [I25.10] 06/05/2019 S/P CABG x 3 [Z95.1] 06/22/2019 Glucose intolerance [E74.39] 06/22/2019 Chronic sore throat [J31.2] 12/06/2019 More... Intercostal pain [R07.82] 12/17/2019 Encounter Status:Closed by STEPHY HERRERA on 04/02/20 preop/preproc covid on 2020-03-31 COVID 19 Result Negative for Negative for Normal 03-31-20 [facility] HEEL REDUCER COVID19 (SARS COVID19 (SARS Cl [place] (81811) CoV2) by PCR. CoV2) by PCR. Comment: Result Comment: This test wa s developed and its performance characteristics determined by [facility]'s [facility]iran[facility] [place]. This test has been authorized by FDA under an Emergency Us e Authorization (EUA). This test has been validated in accordance with the FDA's Guidance Document Policy for Diagnostics Testing in Laboratories Certified to Perform High Complexity Testing under CLIA prior to Emergency use Authorization for Coronavir us Disease 2019 during the Public Health Emergency issued on June 23, 2019. Performed By: #### POCOVD ## ##[facility] [id number] [place], [place] [phone] COVID 19 Source HEEL REDUCER UPPER RESPIRATORY TRACT Normal 03-31-2020 [facility] (08869) Comment: Performed By: #### POCOVD ## ##[facility] [id number] [place], [place] [phone] cnpn on 2020-03-13 CNPN Telephone (FAMPWS) Normal 03-13-2020 [facility] JOCELYN LOAIZA ([id number]) 1945 [facility] Date Time Provider Department () 03/13/20 [facility] During your visit today, we recorded the following informati on about you: Bella Santos MD 03/13/2020 1:29 PM Signed Please notify patient that Dr Delong recommended that we do a nuclear stress test; order has shawn placed for this MD Mary Xiao Ma 03/13/2020 3:08 PM Signed Patient was notified and and given number to schedule covid test/stress Mary Payne Ma Allergies As of Date: 03/13/2020 (No Known Allergies) Date Reviewed: 12/17/2019 Reviewed by: Theron Delong - Fully Assessed Reason for Visit: Orders [681] Primary Visit Diagnosis:Pre-procedure lab exam [Z01.812] Other Visit Diagnosis:Coronary artery disease involving jared ve coronary artery of nez perce heart with angina pectoris (HCC) [I25.119] Order(s):NM CARDIAC PERF STRESS/EXERCISE [344777 7] Order #: [id number] FUTURE PRE-PROCEDURE AND PRE-OPERATIVE COVID [SQPOCOVD] Order #: [id number] FUTURE Prescriptions as of 03/13/2020 Sig: OMEPRAZOLE 20 MG CAPSULE,BENNY* Take 1 capsule by mouth daily * TAMSULOSIN 0.4 MG CAPSULE Take 1 capsule by mouth twice* LORATADINE 10 MG TABLET Take 1 tablet by mouth once d* ATORVASTATIN 40 MG TABLET Take 1 tablet by mouth daily * METOPROLOL TARTRATE 25 MG TAB* Take 1 tablet by mouth every * COLACE 2-IN-1 ORAL Take by mouth. ACETAMINOPHEN 500 MG TABLET Take 2 tablets by mouth every* ASPIRIN 81 MG TABLET,DELAYED * Take 2 tablets by mouth once * X AMIODARONE 200 MG TABLET Take 1 tablet by mouth once d* Patient not taking: Reported on 07/18/2019 X FUROSEMIDE 20 MG TABLET Take 1 tablet by mouth once d* SULFACETAMIDE SODIUM 9.8 %-HARRIS* Apply thin film to affected a * Problem List As Of Date 03/13/2020 Noted Resolved Dyspnea on exertion [R06.00] Dyslipidemia [E78.5] More... HTN (hypertension) [I10] More... Former smoker, stopped smoking in distant past * HARLEY on CPAP [G47.33, Z99.89] More... Abnormal PFTs (pulmonary function tests) [R94.2]12/27/2014 Rosacea [L71.9] Chest pain [R07.9] 06/01/2019 06/02/2019 More... Chest pain [R07.9] 06/05/2019 06/11/2019 CAD (coronary artery disease) [I25.10] 06/05/2019 S/P CABG x 3 [Z95.1] 06/22/2019 Glucose intolerance [E74.39] 06/22/2019 Chronic sore throat [J31.2] 12/06/2019 More... Intercostal pain [R07.82] 12/17/2019 Encounter Status:Closed by MARY PAYNE MA on 0 xr chest 2v frontal/lat on 2020-03-12 XR CHEST 2V * * *Final Report* * * Normal 03-12 [facility] FRONTAL/LAT DATE OF EXAM: Mar 12 2020 2:31PM Young WOX 5291 - XR CHEST 2V FRONTAL/LAT / (74577) PROCEDURE REASON: multiple diagnoses * * * * Physician Interpretation * * * * EXAMINATION: CHEST RADIOGRAPH (2 VIEW FRONTAL and LATERAL) CLINICAL HISTORY: Chest pain. Atelectasis MQ: [id number]_6 EXAM DATE/TIME: 03/12/2020 2:31 PM COMPARISON: Chest x-ray dated 07/03/2019 RESULT: Lines, tubes, and devices: None. Lungs and pleura: No consolidation. No lung mass. No pleural effusion. No pneumothorax. Cardiomediastinal silhouette: Stable cardiomediastinal silho uette with postsurgical changes from median sternotomy and with mildly tortuous aorta. Bones and soft tissues: Unremarkable. IMPRESSION: No acute radiographic abnormality. Anthropometrist: PSCB Transcribe Date/Time: Mar 12 2020 2:57P Dictated by : ROSA MARIA GAMEZ MD This examination was interpreted and the report reviewed and electronically signed by: ROSA MARIA GAMEZ MD on Mar 12 2020 3:01PM EST [id number] progress on 2020-02 PROGRESS HNO ID: [id number] Normal 03-12-2020 [facility] Author: Bryon Garcia (Rt) Young ([id number]) Service: ? Author Type: Mill Attendant Type: Progress Notes Filed: 03/12/2020 2:32 PM Note Text: Radiology Service Progress Note PATIENT NAME: Jocelyn Loaiza DATE OF SERVICE: March 12, 2020 TIME: 2:24 PM PATIENT IDENTITY VERIFICATION COMPLETED USING TWO (2) IDENTI FIERS: Name and Date of confirmed by patient verbally. FALL SCREENING: Has the patient had 2 falls in the last year or 1 fall with injury or currently using an Ambulatory Assistive Devic e (Walker, Cane, Wheelchair, Crutches, etc.)? No PATIENT GENDER DATA: Male PATIENT RELEVANT IMPLANT DATA REVIEWED: Not Applicable RADIOLOGY DEPARTMENT: General X-ray: Exam(s) Completed: Ches t X-Ray PERIPHERAL IV DATA: Not applicable SIGNED BY: RT Jose March 12, 2020 2:24 PM PROGRESS HNO ID: [id number] Normal 03-12-2020 [facility] Author: Bella Santos [place] ([id number]) Service: ? Author Type: Physician Type: Progress Notes Filed: 03/12/2020 6:59 PM Note Text: Chief Complaint Patient presents with: ED Follow-up HPI Jocelyn Loaiza is a 74 year old male who presents here toda y for [facility] ER f/u. Pt was in the [facility] ER on 03/08/2020 with c/o chest pains. He stated it seemed to be located on left side with radiation to left tom ulder and nowhere else. Continuous, sharp, at rest. Was not worsened w ith exertion. He tried Tums, nitro, with no effect on discomfort . No nausea/vomiting, diaphoresis, dyspnea, cough, fever, lighthe adedness, acid reflux, or palpitations. Pt did have bypass surgery done abo ut 11 months ago. He presented to ER in November for chest pain, which he w as admitted and had a negative nuclear stress test. ER visit on 0 pt had CXR done, which showed minimal right mid lung zone opacity, poss ibly early pneumonia versus atelectasis. ER doc did not feel he had pne umonia, his sx were non pleuritic, no cough, fever, malaise or other sys temic sx. Had lab work done, EKG. His work up while in ER was negative. ER doc felt this was not angina, that his sx were atypical. He was disch arged home. He follows with Cardio, Dr. Delong in [facility]. Pt reports today that he is confused and a little scared sin ce his ER visit. He will have days where he feels perfectly fine. Some days, such as today where he feels a little sob. Last night while laying i n bed he was having pain. When exercising at [facility] he generally wi ll get his heart elevated to 95-100. But when working out the other day his heart was working a little harder in the 120-130's, which is unusual f or him. He also was told that he had an abnormality on his chest x-ray and this is also concerning to him. Pt states today that his chest pain feels like when it did in May, despite normal work up in the [facility]. Rosacea - Uses lotion for rosacea and he is uncertain if thi s lotion may be causing this or not. He's not sure, but just wanted to no te this. Mini-cog not completed due to limited time with pt for an ER f/u. Past medical history, appointments, medications, allergies r yisel. Previous Medical History PAST MEDICAL HISTORY Diagnosis Date - Dyslipidemia - Dyspnea on exertion - Former smoker, stopped smoking in distant past - HTN (hypertension) - Kidney stones - HARLEY on CPAP - Rosacea Previous Surgical History PAST SURGICAL HISTORY Procedure Laterality Date - COLONOSCOP W/ OR W/O [facility] SPEC 02/15/2019 Colonoscopy - COLONOSCOPY 2006 - HERNIA REPAIR HX childhood and 2007 x3 - PAST SURGICAL HISTORY OF lithotripsy, multiple - PAST SURGICAL HISTORY OF laser prostate - TONSILLECTOMY HX Family History FAMILY HISTORY Problem Relation Age of Onset - other (No CAD) Father - Cancer Mother , lung - Cancer Brother thyroid Patient Allergies ALLERGIES No Known Allergies Current Medications Current Outpatient Medications on File Prior to Visit Medication Sig - omeprazole (PRILOSEC) 20 mg capsule Take 1 capsule by mout h daily before breakfast. 1/2 hr before meal. - tamsulosin ER (FLOMAX) 0.4 mg Take 1 capsule by mouth twic e daily. Dr. Shaffer. - loratadine (CLARITIN) 10 mg tablet Take 1 tablet by mouth once daily. - atorvastatin (LIPITOR) 40 mg tablet Take 1 tablet by mouth daily at bedtime. - metoprolol tartrate, short acting, (LOPRESSOR) 25 mg table t Take 1 tablet by mouth every 12 hours. - sennosides/docusate sodium (COLACE 2-IN-1 ORAL) Take by [facility]. - acetaminophen (TYLENOL) 500 mg tablet Take 2 tablets by [facility] every 6 hours. - aspirin, enteric coated (ASPIRIN, ENTERIC COATED) 81 mg EC tablet Take 2 tablets by mouth once daily. - [DISCONTINUED] amiodarone (PACERONE) 200 mg tablet Take 1 tablet by mouth once daily. (Patient not taking: Reported on 07/18/2019 ) - [DISCONTINUED] furosemide (LASIX) 20 mg tablet Take 1 tabl et by mouth once daily. - sulfacetamide sodium-sulfur 9.8-4.8 % lotn Apply thin film to affected area 1 times daily. No current facility-administered medications on file prior t o visit. Social History Social History Tobacco Use - Smoking status: Former Smoker Packs/day: 1.00 Years: 7.00 Pack years: 7.00 Types: Cigarettes Quit date: 12/27/1976 Years since quittin.2 - Smokeless tobacco: Never Used - Tobacco comment: on and off Substance Use Topics - Alcohol use: Yes Frequency: 2-3 times a week Drinks per session: 1 or 2 Binge frequency: Never Comment: occasional - Drug use: No EXAM: BP 162/90 (BP Site: Left Arm, BP Position: Sitting, BP Cuff Size: Regular Adult) Pulse 64 Resp 16 Wt 75.8 kg (167 lb) BMI 25.7 7 kg/m? General Appearance: Well appearing, alert, in no acute distr ess, well-hydrated, well nourished.. Lungs: Lungs clear to auscultation. No wheezing, rhonchi, ra les. Pt notes some sharper pain, 1/10 with deep inhalation in on exam. Heart: RRR without murmur, gallop, or rubs. No ectopy. Health Maintenance List ABDOMINAL AORTIC ANEURYSM SCREENING due on 1945 HEPATITIS C SCREENING due on 1964 BP CONTROLLED (<130/80) due on 1964 SHINGRIX VACCINE(1 of 2) due on 1996 ADVANCE DIRECTIVE DISCUSSION due on 09/08/2011 INFLUENZA(1) due on 12/25/2019 LDL CHOLESTEROL due on 10/18/2020 ANNUAL PCP TEAM CHRONIC DISEASE VISIT due on 12/05/2020 DIABETES SCREEN due on 10/18/2022 COLONOSCOPY due on 02/16/2024 LIPID SCREEN due on 10/18/2024 DTAP,TDAP,TD(2 - Td) due on 02/07/2027 PNEUMOVAX AGE 65 AND OVER WITH 5YR LOOKBACK Completed MENINGOCOCCAL CONJUGATE Completed Data reviewed [facility] ER reports from 03/08/2020 ASSESSMENT/PLAN: 1. Hospital discharge follow-up - ICD9: V67.59, ICD10: Z09 ( primary diagnosis) - Complete chest XR today. 2. Musculoskeletal chest pain - ICD9: 786.59, ICD10: R07.89 - See below 3. Chest pain, unspecified type - ICD9: 786.50, ICD10: R07.9 - Unclear etiology, await chest XR. If normal see Dr. Delong 4. Atelectasis - ICD9: 518.0, ICD10: J98.11 - Chest XR 5. SOB (shortness of breath) - ICD9: 786.05, ICD10: R06.02 - Chest XR today; if normal will send chart to Cardiology to get their input 6. S/P CABG x 3 - ICD9: V45.81, ICD10: Z95.1 - See Cardio No restrictions at this time. Complete Chest XR today. Send note to Dr. Delong I agree with the Chief Complaint, ROS, and Past Histories in dependently gathered by the clinical computer support analyst and the remaining scr ibed note accurately describes my personal service to the patient. Bella Santos MD The documentation for this note was completed by Jocelyn ernst MA acting as scribe for Bella Santos MD. March 12, 2020 2:13 PM. Jocelyn Walker MA cnpn on 2020-03-12 CNPN Telephone (FAMPWS) Normal 03-12-2020 [facility] JOCELYN LOAIZA ([id number]) 1945 [facility] Date Time Provider Department ([id number]) 03/12/20 BELLA SANTOS During your visit today, we recorded the following informati on about you: Bella Santos MD 03/12/2020 5:14 PM Signed Please notify patient that his CXR is no rmal today, so I do not think there is anything in the lungs causing his issues I will forward his chart to Dr Delong to get his input MD Kenzie Xiao Ma 03/12/2020 5:52 PM Signed Pt notified and voiced understanding. Kenzie Prasad Ma Allergies As of Date: 03/12/2020 (No Known Allergies) Date Reviewed: 12/17/2019 Reviewed by: Theron Dleong - Fully Assessed Reason for Visit: Results [95] Prescriptions as of 03/12/2020 Sig: OMEPRAZOLE 20 MG CAPSULE,BENNY* Take 1 capsule by mouth daily * TAMSULOSIN 0.4 MG CAPSULE Take 1 capsule by mouth twice* LORATADINE 10 MG TABLET Take 1 tablet by mouth once d* ATORVASTATIN 40 MG TABLET Take 1 tablet by mouth daily * METOPROLOL TARTRATE 25 MG TAB* Take 1 tablet by mouth every * COLACE 2-IN-1 ORAL Take by mouth. ACETAMINOPHEN 500 MG TABLET Take 2 tablets by mouth every* ASPIRIN 81 MG TABLET,DELAYED * Take 2 tablets by mouth once * X AMIODARONE 200 MG TABLET Take 1 tablet by mouth once d* Patient not taking: Reported on 07/18/2019 X FUROSEMIDE 20 MG TABLET Take 1 tablet by mouth once d* SULFACETAMIDE SODIUM 9.8 %-HARRIS* Apply thin film to affected a * Problem List As Of Date 03/12/2020 Noted Resolved Dyspnea on exertion [R06.00] Dyslipidemia [E78.5] More... HTN (hypertension) [I10] More... Former smoker, stopped smoking in distant past * HARLEY on CPAP [G47.33, Z99.89] More... Abnormal PFTs (pulmonary function tests) [R94.2]12/27/2014 Rosacea [L71.9] Chest pain [R07.9] 06/01/2019 06/02/2019 More... Chest pain [R07.9] 06/05/2019 06/11/2019 CAD (coronary artery disease) [I25.10] 06/05/2019 S/P CABG x 3 [Z95.1] 06/22/2019 Glucose intolerance [E74.39] 06/22/2019 Chronic sore throat [J31.2] 12/06/2019 More... Intercostal pain [R07.82] 12/17/2019 Encounter Status:Closed by KENZIE PRASAD MA on 03/12/20 cnov on 2020-03-12 CNOV Office Visit (FAMPWS) Normal 03-12-[address] [place] [address] JOCELYN Arias ([id number]) 1945 [facility] Date Time Provider Department ([id number]) 03/12/20 1:40 PM BELLA SANTOS During your visit today, we recorded the following informati on about you: Pulse Respiration Blood pressure Weight 64/minute 16/minute 162/90 75.8 kg Bella Santos MD 03/12/2020 6:59 PM Signed Chief Complaint Patient presents with: ED Follow-up HPI Jocelyn Loaiza is a 74 year old male who presen ts here today for [facility] ER f/u. Pt was in the [facility] ER on 03/08/2020 with c/o chest pain s. He stated it seemed to be located on left side with radiation to left shou lder and nowhere else. Continuous, sharp, at rest. Was not worsened with exertion. He tried Tums, nitro, with no effect on discomfort. No nausea/vomiting, diaphoresis, dyspnea, cough, fever, lightheadedness, acid reflux, or palpitations. Pt did have bypass surgery done about 11 months ago. He presented to ER in November for chest pain, which he was admitted and had a negative n uclear stress test. ER visit on 05/08/2019 pt had CXR done, which showed minim al right mid lung zone opacity, possibly early pneumonia versus atelectasis. ER doc did not feel he had pneumonia, his sx were non pleuritic, no cough, fever, malaise or other systemic sx. Had lab work done, EKG. His work up while in ER was negative. ER doc felt this was not angina, that his sx wer e atypical. He was discharged home. He follows with Cardio, Dr. Delong in [facility]. Pt reports today that he is confused and a little scared since his ER visit. He will have days where he feel s perfectly fine. Some days, such as today where he feels a little sob. Last night while laying in bed he was having pain. When exercising at [facility] he generally will get his heart elevated to 95-100. But when working out the [facility] er day his heart was working a little harder in the 120-130's, which is unusual for him. He also was told that h e had an abnormality on his chest x-ray and this is also concer josephine to him. Pt states today that his chest pain feels like when it did in [facility], despite normal work up in the hospital. Rosacea - Uses lotion for rosacea and he is uncertain if t his lotion may be causing this or not. He's not sure, but just wanted to note this. Mini-cog not completed due to limited time with pt for an ER f/u. Past medical history, appointments, medications, allergies r eviewed. Previous Medical History PAST MEDICAL HISTORY Diagnosis Date - Dyslipidemia - Dyspnea on exertion - Former smoker, stopped smoking in distant past - HTN (hypertension) - Kidney stones - HARLEY on CPAP - Rosacea Previous Surgical History PAST SURGICAL HISTORY Procedure Laterality Date - COLONOSCOP W/ OR W/O [facility] SPEC 02/15/2019 Colonoscopy - COLONOSCOPY 2006 - HERNIA REPAIR HX childhood and 2007 x3 - PAST SURGICAL HISTORY OF lithotripsy, multiple - PAST SURGICAL HISTORY OF laser prostate - TONSILLECTOMY HX Family History FAMILY HISTORY Problem Relation Age of Onset - other (No CAD) Father - Cancer Mother , lung - Cancer Brother thyroid Patient Allergies ALLERGIES No Known Allergies Current Medications Current Outpatient Medications on File Prior to Visit Medication Sig - omeprazole (PRILOSEC) 20 mg capsule Take 1 capsule by mout h daily before breakfast. 1/2 hr before meal. - tamsulosin ER (FLOMAX) 0.4 mg Take 1 capsule by mouth twic e daily. Dr. Shaffer. - loratadine (CLARITIN) 10 mg tablet Take 1 tablet by mouth once daily. - atorvastatin (LIPITOR) 40 mg tablet Ta ke 1 tablet by mouth daily at bedtime. - metoprolol tartrate, short acting, (LO PRESSOR) 25 mg tablet Take 1 tablet by mouth every 12 hours. - sennosides/docusate sodium (COLACE 2-IN-1 ORAL) Take by [facility]. - acetaminophen (TYLENOL) 500 mg tablet Take 2 tablets by mouth every 6 hours. - aspirin, enteric coated (ASPIRIN, ENTERIC COATED) 81 mg EC tablet Take 2 tablets by mouth once daily. - [DISCONTINUED] amiodarone (PACERONE) 200 mg tablet Take 1 tablet by mouth once daily. (Patient not taking: Reported on 07/18/2019 ) - [DISCONTINUED] furosemide (LASIX) 20 mg tablet Take 1 tablet by mouth once daily. - sulfacetamide sodium-sulfu r 9.8-4.8 % lotn Apply thin film to affected area 1 times daily. No current facility-administered medications on file prior t o visit. Social History Social History Tobacco Use - Smoking status: Former Smoker Packs/day: 1.00 Years: 7.00 Pack years: 7.00 Types: Cigarettes Quit date: 12/27/1976 Years since quittin.2 - Smokeless tobacco: Never Used - Tobacco comment: on and off Substance Use Topics - Alcohol use: Yes Frequency: 2-3 times a week Drinks per session: 1 or 2 Binge frequency: Never Comment: occasional - Drug use: No EXAM: BP 162/90 (BP Site: Left Arm, BP Position: Sitting, BP Cuff Size: Regular Adult) Pulse 64 Resp 16 Wt 75.8 kg (167 lb) BMI 25.7 7 kg/m? General Appearance: Well thomas earing, alert, in no acute distress, well-hydrated, well nourished.. Lungs: Lungs clear to auscultation. No w heezing, rhonchi, rales. Pt notes some sharper pain, 1/10 with deep inhalation in on exam. Heart: RRR without murmur, gallop, or rubs. No ectopy. Health Maintenance List ABDOMINAL AORTIC ANEURYSM SCREENING due on 1945 HEPATITIS C SCREENING due on 1964 BP CONTROLLED (<130/80) due on 1964 SHINGRIX VACCINE(1 of 2) due on 1996 ADVANCE DIRECTIVE DISCUSSION due on 09/08/2011 INFLUENZA(1) due on 12/25/2019 LDL CHOLESTEROL due on 10/18/2020 ANNUAL PCP TEAM CHRONIC DISEASE VISIT due on 12/05/2020 DIABETES SCREEN due on 10/18/2022 COLONOSCOPY due on 02/16/2024 LIPID SCREEN due on 10/18/2024 DTAP,TDAP,TD(2 - Td) due on 02/07/2027 PNEUMOVAX AGE 65 AND OVER WITH 5YR LOOKBACK Completed MENINGOCOCCAL CONJUGATE Completed Data reviewed [facility] ER reports from 03/08/2020 ASSESSMENT/PLAN: 1. Hospital discharge follow-up - ICD9: V67.59, ICD10: Z09 (primary diagnosis) - Complete chest XR today. 2. Musculoskeletal chest pain - ICD9: 786.59, ICD10: R07.89 - See below 3. Chest pain, unspecified type - ICD9: 786.50, ICD10: R07.9 - Unclear etiology, await chest XR. If normal see Dr. Delong 4. Atelectasis - ICD9: 518.0, ICD10: J98.11 - Chest XR 5. SOB (shortness of breath) - ICD9: 786.05, ICD10: R06.02 - Chest XR today; if normal will send chart to Cardiol ogy to get their input 6. S/P CABG x 3 - ICD9: V45.81, ICD10: Z95.1 - See Cardio No restrictions at this time. Complete Chest XR today. Send note to Dr. Delong I agree with the Chief Complaint, ROS, and Past Histories in dependently gathered by the clinical computer support analyst and the remaining scr ibed note accurately describes my personal service to the patient. Bella Santos MD The documentation for this note was completed by Jocelyn ernst MA acting as scribe for Bella Santos MD. March 12, 2020 2:13 PM. Jocelyn Walker MA Referring Provider: SELF [200] Allergies As of Date: 03/12/2020 (No Known Allergies) Date Reviewed: 12/17/2019 Reviewed by: Theron Delong - Fully Assessed Reason for Visit: ED Follow-up [821] Primary Visit Diagnosis:Hospital discharge follow-up [Z09] Other Visit Diagnoses:Musculoskeletal chest pain [R07.89] Chest pain, unspecified type [R07.9] Atelectasis [J98.11] SOB (shortness of breath) [R06.02] S/P CABG x 3 [Z95.1] Order(s):XR CHEST 2V FRONTAL/LAT [[id number]] Order #: [id number] FUTURE Prescriptions as of 03/12/2020 Sig: OMEPRAZOLE 20 MG CAPSULE,BENNY* Take 1 capsule by mouth daily * TAMSULOSIN 0.4 MG CAPSULE Take 1 capsule by mouth twice* ATORVASTATIN 40 MG TABLET Take 1 tablet by mouth daily * METOPROLOL TARTRATE 25 MG TAB* Take 1 tablet by mouth every * COLACE 2-IN-1 ORAL Take by mouth. ACETAMINOPHEN 500 MG TABLET Take 2 tablets by mouth every* ASPIRIN 81 MG TABLET,DELAYED * Take 2 tablets by mouth once * SULFACETAMIDE SODIUM 9.8 %-HARRIS* Apply thin film to affected a * LORATADINE 10 MG TABLET Take 1 tablet by mouth once d* X AMIODARONE 200 MG TABLET Take 1 tablet by mouth once d* Patient not taking: Reported on 07/18/2019 X FUROSEMIDE 20 MG TABLET Take 1 tablet by mouth once d* Problem List As Of Date 03/12/2020 Noted Resolved Dyspnea on exertion [R06.00] Dyslipidemia [E78.5] More... HTN (hypertension) [I10] More... Former smoker, stopped smoking in distant past * HARLEY on CPAP [G47.33, Z99.89] More... Abnormal PFTs (pulmonary function tests) [R94.2]12/27/2014 Rosacea [L71.9] Chest pain [R07.9] 06/01/2019 06/02/2019 More... Chest pain [R07.9] 06/05/2019 06/11/2019 CAD (coronary artery disease) [I25.10] 06/05/2019 S/P CABG x 3 [Z95.1] 06/22/2019 Glucose intolerance [E74.39] 06/22/2019 Chronic sore throat [J31.2] 12/06/2019 More... Intercostal pain [R07.82] 12/17/2019 Encounter Status:Closed by BELLA SANTOS MD on 03/12/20 No panel information on 2020-03-12 [facility] ([id number]) obsolete on 2020-02 OBSOLETE Refill (INTMWS) Normal 03-03-2020 [facility] JOCELYN LOAIZA ([id number]) 1945 [facility] Date Time Provider Department ([id number]) 03/03/20 CALDERON OLSEN INTMWS During your visit today, we recorded the following informati on about you: Shana Watson LPN 03/03/2020 12:18 PM Signed Patient has been identified by name and date of : Yes Patient phones for refill(s): Pending Prescriptions Disp Refills OMEPRAZOLE 20 MG CAPSULE,DELAYED RELEASE 30 capsule 2 Sig: Take 1 capsule by mouth daily before breakfast. 1/2 hr before meal. EVENS: No Date of last office visit in primary care: 12/06/2019 6 month follow-up: 04/29/2020 Last 2 Encounter Wt Readings: Date: Wt: 12/17/2019 75.3 kg (166 lb) 12/06/2019 73.5 kg (162 lb) Previous labs/tests for medication: Not applicable Please advise. Thank you. Shana Shelton APRN.EMA 03/03/2020 12:23 PM Signed The following approved medic ation requests have been transmitted electronically. Pending Prescriptions Disp Refills OMEPRAZOLE 20 MG CAPSULE,DELAYED RELEASE 30 capsule 2 Sig: Take 1 capsule by mouth daily before breakfast. 1/2 hr before meal. EVENS: No Magen Shelton APRN.CNP Allergies As of Date: 03/03/2020 (No Known Allergies) Date Reviewed: 12/17/2019 Reviewed by: Theron Delong - Fully Assessed Reason for Visit: Refill Request [94] Visit Diagnosis:Chronic sore throat [J31.2] Order(s):omeprazole (PRILOSEC) 20 mg capsuleTake 1 capsule b y mouth daily before breakfast. 1/2 hr before meal.Disp: 30 capsuleRfl: 2 Prescriptions as of 03/03/2020 Sig: OMEPRAZOLE 20 MG CAPSULE,BENNY* Take 1 capsule by mouth daily * TAMSULOSIN 0.4 MG CAPSULE Take 1 capsule by mouth twice* LORATADINE 10 MG TABLET Take 1 tablet by mouth once d* ATORVASTATIN 40 MG TABLET Take 1 tablet by mouth daily * METOPROLOL TARTRATE 25 MG TAB* Take 1 tablet by mouth every * COLACE 2-IN-1 ORAL Take by mouth. ACETAMINOPHEN 500 MG TABLET Take 2 tablets by mouth every* ASPIRIN 81 MG TABLET,DELAYED * Take 2 tablets by mouth once * X AMIODARONE 200 MG TABLET Take 1 tablet by mouth once d* Patient not taking: Reported on 07/18/2019 X FUROSEMIDE 20 MG TABLET Take 1 tablet by mouth once d* SULFACETAMIDE SODIUM 9.8 %-HARRIS* Apply thin film to affected a * Problem List As Of Date 03/03/2020 Noted Resolved Dyspnea on exertion [R06.00] Dyslipidemia [E78.5] More... HTN (hypertension) [I10] More... Former smoker, stopped smoking in distant past * HARLEY on CPAP [G47.33, Z99.89] More... Abnormal PFTs (pulmonary function tests) [R94.2]12/27/2014 Rosacea [L71.9] Chest pain [R07.9] 06/01/2019 06/02/2019 More... Chest pain [R07.9] 06/05/2019 06/11/2019 CAD (coronary artery disease) [I25.10] 06/05/2019 S/P CABG x 3 [Z95.1] 06/22/2019 Glucose intolerance [E74.39] 06/22/2019 Chronic sore throat [J31.2] 12/06/2019 More... Intercostal pain [R07.82] 12/17/2019 Prescriptions ordered this encounter Disp Refills Start End OMEPRAZOLE 20 MG CAPSULE,DELAYED REL* 30 c* 2 03/03/2020 Route: ORAL Sig: Take 1 capsule by mouth daily before breakfast. 1/2 hr before meal. Medications Discontinued During This Encounter Prescriptions - omeprazole (PRILOSEC) 20 mg capsule (Discontinued) Take 1 capsule by mouth daily before breakfast. 1/2 hr befor e meal. Encounter Status:Closed by MAGEN SHELTON CNP on 03/03/20 progress on 2019-11 PROGRESS HNO ID: [id number] Normal 12-17-2019 [facility] Author: Theron Delong Young ([id number]) Service: ? Author Type: Physician Type: Progress Notes Filed: 12/17/2019 4:41 PM Note Text: Theron Delong MD Interventional Cardiology [facility] [place] [id number] [place], [place] [address] [phone] Chief Complaint Patient presents with: Established Patient HISTORY OF PRESENT ILLNESS: Mr. Loaiza is a 74 year old male seen for follow-up status post hospital admission with a [facility] patient had prior histor y of coronary artery disease With bypass surgery consisted of a MOHR to the LAD vein arvind t to the circumflex and a vein graft to the right coronary artery Underwent nuclear stress test with no evidence of ischemia w ith normal left ventricular function Has no further symptoms No angina Cardiac Risk Factors age (male over 45, female over 55), hyperlipidemia, hyperten alexia, family history of CAD PAST MEDICAL HISTORY Diagnosis Date - Dyslipidemia - Dyspnea on exertion - Former smoker, stopped smoking in distant past - HTN (hypertension) - Kidney stones - HARLEY on CPAP - Rosacea PAST SURGICAL HISTORY Procedure Laterality Date - COLONOSCOP W/ OR W/O [facility] SPEC 02/15/2019 Colonoscopy - COLONOSCOPY 2006 - HERNIA REPAIR HX childhood and 2007 x3 - PAST SURGICAL HISTORY OF lithotripsy, multiple - PAST SURGICAL HISTORY OF laser prostate - TONSILLECTOMY HX FAMILY HISTORY Problem Relation Age of Onset - other (No CAD) Father - Cancer Mother , lung - Cancer Brother thyroid Social History Tobacco Use - Smoking status: Former Smoker Packs/day: 1.00 Years: 7.00 Pack years: 7.00 Types: Cigarettes Quit date: 12/27/1976 Years since quittin.0 - Smokeless tobacco: Never Used - Tobacco comment: on and off Substance Use Topics - Alcohol use: Yes Frequency: 2-3 times a week Drinks per session: 1 or 2 Binge frequency: Never Comment: occasional - Drug use: No ALLERGIES No Known Allergies Medications: Current Outpatient Medications Medication Sig Dispense Refill - tamsulosin ER (FLOMAX) 0.4 mg Take 1 capsule by mouth twic e daily. Dr. Shaffer. - loratadine (CLARITIN) 10 mg tablet Take 1 tablet by mouth once daily. - omeprazole (PRILOSEC) 20 mg capsule Take 1 capsule by mout h daily before breakfast. 1/2 hr before meal. 30 capsule 2 - atorvastatin (LIPITOR) 40 mg tablet Take 1 tablet by mouth daily at bedtime. 90 tablet 3 - metoprolol tartrate, short acting, (LOPRESSOR) 25 mg table t Take 1 tablet by mouth every 12 hours. 180 tablet 3 - sennosides/docusate sodium (COLACE 2-IN-1 ORAL) Take by mo uth. - acetaminophen (TYLENOL) 500 mg tablet Take 2 tablets by mo ut every 6 hours. - aspirin, enteric coated (ASPIRIN, ENTERIC COATED) 81 mg EC tablet Take 2 tablets by mouth once daily. - sulfacetamide sodium-sulfur 9.8-4.8 % lotn Apply thin film to affected area 1 times daily. No current facility-administered medications for this visit. Review of Systems Constitutional: Negative for chills, diaphoresis, fever, mal aise/fatigue and weight loss. HENT: Negative for congestion, ear discharge, ear pain, hear ing loss, nosebleeds, sinus pain, sore throat and tinnitus. Eyes: Negative for blurred vision, double vision, photophobi a, pain, discharge and redness. Respiratory: Negative for cough, hemoptysis, sputum producti on, shortness of breath, wheezing and stridor. Cardiovascular: Negative for chest pain, palpitations, ortho pnea, claudication, leg swelling and PND. Gastrointestinal: Negative for abdominal pain, blood in stoo l, constipation, diarrhea, heartburn, melena, nausea and vomiti ng. Genitourinary: Negative for dysuria, flank pain, frequency, hematuria and urgency. Musculoskeletal: Negative for back pain, falls, joint pain, myalgias and neck pain. Skin: Negative for itching and rash. Neurological: Negative for dizziness, tingling, tremors, sen tyson change, speech change, focal weakness, seizures, loss of consciousne ss, weakness and headaches. Endo/Heme/Allergies: Negative for environmental allergies an d polydipsia. Does not bruise/bleed easily. Psychiatric/Behavioral: Negative for depression, hallucinati ons, memory loss, substance abuse and suicidal ideas. The patient is not nervous/anxious and does not have insomnia. Physical Examination: Vitals:BP 138/80 Pulse 64 Ht 5' 7.5 (1.72m) Wt 166 lb (75.3kg) BMI 25.60 kg/(m2). BP w/Orthostatic Vitals Date and Time Orthostatic BP Orthostatic Pulse BP Pulse BP P osition BP Site BP Cuff Size 12/17/19 1550 -- -- 138/80 64 Sitting Right Arm Regular Adul t Last 2 Encounter Wt Readings: Date: Wt: 12/17/2019 75.3 kg (166 lb) 12/06/2019 73.5 kg (162 lb) Physical Exam Constitutional: He is oriented to person, place, and time an d well-developed, well-nourished, and in no distress. No distr ess. HENT: Head: Normocephalic and atraumatic. Right Ear: External ear normal. Left Ear: External ear normal. Nose: Nose normal. Mouth/Throat: Oropharynx is clear and moist. Eyes: Pupils are equal, round, and reactive to light. Conjun ctivae and EOM are normal. Right eye exhibits no discharge. Left eye exhibi ts no discharge. Neck: Normal range of motion. Neck supple. No JVD present. N o tracheal deviation present. No thyromegaly present. Cardiovascular: Normal rate, regular rhythm, S1 normal, S2 n ormal, normal heart sounds and intact distal pulses. Exam reveals no barnes p, no S3, no S4 and no friction rub. No murmur heard. Pulmonary/Chest: Effort normal and breath sounds normal. No stridor. No respiratory distress. He has no wheezes. He has no rales. He exhibits no tenderness. Abdominal: He exhibits no distension and no mass. There is n o abdominal tenderness. There is no rebound and no guarding. Musculoskeletal: Normal range of motion. General: No tenderness, deformity or edema. Lymphadenopathy: He has no cervical adenopathy. Neurological: He is alert and oriented to person, place, and time. Skin: Skin is warm and dry. No rash noted. He is not diaphor etic. No erythema. No pallor. Psychiatric: Mood, memory, affect and judgment normal. Pertinent Labs: CBC: Hemoglobin (g/dL) Date Value 06/09/2019 11.8 Hematocrit (%) Date Value 06/09/2019 36.3 WBC (k/uL) Date Value 06/09/2019 8.69 Platelet Count (k/uL) Date Value 06/09/2019 162 BMP: Glucose (mg/dL) Date Value 10/19/2019 96 Potassium (mmol/L) Date Value 10/19/2019 4.6 Sodium (mmol/L) Date Value 10/19/2019 139 Chloride (mmol/L) Date Value 10/19/2019 102 CO2 (mmol/L) Date Value 10/19/2019 25 Creatinine (mg/dL) Date Value 10/19/2019 0.91 BUN (mg/dL) Date Value 10/19/2019 17 Anion Gap (mmol/L) Date Value 10/19/2019 12 Calcium (mg/dL) Date Value 10/19/2019 9.3 INR: Lipid Profile: Cholesterol, Total Date Value Ref Range Status 10/19/2019 151 <200 mg/dL Final Comment: <200 mg/dL, Desirable 200-239 mg/dL, Borderline high >239 mg/dL, High HDL Cholesterol Date Value Ref Range Status 10/19/2019 39 (L) >39 mg/dL Final Comment: 40-59 mg/dL, Acceptable >59 mg/dL, High: Negative risk factor for coronary heart dis ease <40 mg/dL, Low: Positive risk factor for coronary heart dise ase LDL Cholesterol Date Value Ref Range Status 10/19/2019 93 <100 mg/dL Final Comment: <100 mg/dL, Optimal 100-129 mg/dL, Near optimal/above optimal 130-159 mg/dL, Borderline high 160-189 mg/dL, High >189 mg/dL, Very high Secondary prevention optimal LDL Cholesterol levels are fco mmended to be < 70 mg/dL Triglyceride Date Value Ref Range Status 10/19/2019 97 <150 mg/dL Final Comment: <150 mg/dL, Normal 150-199 mg/dL, Borderline high 200-499 mg/dL, High >499 mg/dL, Very high Hemoglobin A1C: No results found for: HGBA1C TSH: No results found for: TSHREFL Prior Cardiac Testing Stress test Assessment and Plan: 74 years old with prior history of coronary artery disease a nd bypass surgery with recent negative nuclear stress test doing well from the cardiac point we will continue same cardiac medical therapy Follow up in 6 months Follow up plannin months follow up Electronically signed by Theron Delong MD on December 16, 4:27 PM The above note was partially created using a dictation recog [employer] software. A reasonable attempt has been made to correct any errors. cnov on 2019-12-17 CNOV Office Visit (CARDWS) Normal 12-17-19 Young JOCELYN Arias ([id number]) 1945 [facility] Date Time Provider Department ([id number]) 12/17/19 4:00 PM THERON DELONG During your visit today, we recorded the following informati on about you: Pulse Blood pressure Weight Height 64/minute 138/80 75.3 kg 1.715 m Theron Delong MD 12/17/2019 4:41 PM Signed Theron Delong MD Interventional Cardiology [facility] [address], [place] [address] [id number] Chief Complaint Patient presents with: Established Patient HISTORY OF PRESENT ILLNESS: Mr. Loaiza is a 74 year old male seen for follow-up status post hospital admission with a [facility] - [place] patient had prior histor y of coronary artery disease With bypass surgery consiste d of a MOHR to the LAD vein graft to the circumflex and a vein graft to the right coronary artery Underwent nuclear stress test with no evidence of ischemia with normal left ventricular function Has no further symptoms No angina Cardiac Risk Factors age (male over 45, female over 55), hyperlipidemia, hyperten alexia, family history of CAD PAST MEDICAL HISTORY Diagnosis Date - Dyslipidemia - Dyspnea on exertion - Former smoker, stopped smoking in distant past - HTN (hypertension) - Kidney stones - HARLEY on CPAP - Rosacea PAST SURGICAL HISTORY Procedure Laterality Date - COLONOSCOP W/ OR W/O [facility] SPEC 02/15/2019 Colonoscopy - COLONOSCOPY 2006 - HERNIA REPAIR HX childhood and 2007 x3 - PAST SURGICAL HISTORY OF lithotripsy, multiple - PAST SURGICAL HISTORY OF laser prostate - TONSILLECTOMY HX FAMILY HISTORY Problem Relation Age of Onset - other (No CAD) Father - Cancer Mother , lung - Cancer Brother thyroid Social History Tobacco Use - Smoking status: Former Smoker Packs/day: 1.00 Years: 7.00 Pack years: 7.00 Types: Cigarettes Quit date: 12/27/1976 Years since quittin.0 - Smokeless tobacco: Never Used - Tobacco comment: on and off Substance Use Topics - Alcohol use: Yes Frequency: 2-3 times a week Drinks per session: 1 or 2 Binge frequency: Never Comment: occasional - Drug use: No ALLERGIES No Known Allergies Medications: Current Outpatient Medications Medication Sig Dispense Refill - tamsulosin ER (FLOMAX) 0.4 mg Take 1 capsule by mouth twic e daily. Dr. Shaffer. - loratadine (CLARITIN) 10 mg tablet Take 1 tablet by mouth once daily. - omeprazole (PRILOSEC) 20 mg capsule Take 1 capsule by mout h daily before breakfast. 1/2 hr before meal. 30 capsule 2 - atorvastatin (LIPITOR) 40 mg tablet Ta ke 1 tablet by mouth daily at bedtime. 90 tablet 3 - metoprolol tartrate, short acting, (LO PRESSOR) 25 mg tablet Take 1 tablet by mouth every 12 hours. 180 tablet 3 - sennosides/docusate sodium (COLACE 2-IN-1 ORAL) Take by mo [facility]. - acetaminophen (TYLENOL) 500 mg tablet Take 2 tablets by mouth every 6 hours. - aspirin, enteric coated (ASPIRIN, ENTERIC COATED) 81 mg EC tablet Take 2 tablets by mouth once daily. - sulfacetamide sodium-sulfu r 9.8-4.8 % lotn Apply thin film to affected area 1 times daily. No current facility-administered medications for this visit. Review of Systems Constitutional: Negative for chills, diaphoresis, feve r, malaise/fatigue and weight loss. HENT: Negative for congestion, ear discharge, ear pain, hear ing loss, nosebleeds, sinus pain, sore throat and tinnitus. Eyes: Negative for blurred vision, doubl e vision, photophobia, pain, discharge and redness. Respiratory: Negative for cough, hemoptysis, sputum pr oduction, shortness of breath, wheezing and stridor. Cardiovascular: Negative for chest pain, palpitations, orthopnea, claudication, leg swelling and PND. Gastrointestinal: Negative for abdominal pain, blood i n stool, constipation, diarrhea, heartburn, melena, nausea and vomiting. Genitourinary: Negative for dysuria, flank pain, frequency, hematuria and urgency. Musculoskeletal: Negative for back pain, falls, joint pain, myalgias and neck pain. Skin: Negative for itching and rash. Neurological: Negative for d izziness, tingling, tremors, sensory change, speech change, focal weakness, seizures, loss of consciousness, wea kness and headaches. Endo/Heme/Allergies: Negative for enviro nmental allergies and polydipsia. Does not bruise/bleed easily. Psychiatric/Behavioral: Negative for depression, hallucinations, memory loss, substance abuse and suicidal ideas. The patient is not nervous/anxious and does not have insomnia. Physical Examination: Vitals:BP 138/80 Pulse 64 Ht 5' 7.5 (1.72m) Wt 166 lb (75.3kg) BMI 25.60 kg/(m2). BP w/Orthostatic Vitals Date and Time Orthostatic BP Orthostatic Pulse BP Pulse BP Position BP Site BP Cuff Size 12/17/19 1550 -- -- 138/80 64 Sitting Right Arm Regular Adul t Last 2 Encounter Wt Readings: Date: Wt: 12/17/2019 75.3 kg (166 lb) 12/06/2019 73.5 kg (162 lb) Physical Exam Constitutional: He is oriented to person, place, and time and well-developed, well-nourished, and in no distress. No distress. HENT: Head: Normocephalic and atraumatic. Right Ear: External ear normal. Left Ear: External ear normal. Nose: Nose normal. Mouth/Throat: Oropharynx is clear and moist. Eyes: Pupils are equal, round, and react neal to light. Conjunctivae and EOM are normal. Right eye exhibits no discharge. Left eye exhibits n o discharge. Neck: Normal range of motion. Neck supple. No JVD present. N o tracheal deviation present. No thyromegaly present. Cardiovascular: Normal rate, regular rhythm, S1 normal, S2 normal, normal heart sounds and intact distal pulses. Exam reveals no barnes p, no S3, no S4 and no friction rub. No murmur heard. Pulmonary/Chest: Effort normal and breath sounds normal. No stridor. No respiratory distress. He has no wheezes. He has no rales. He exhibits no tenderness. Abdominal: He exhibits no distension and no mass. There is n o abdominal tenderness. There is no rebound and no guarding. Musculoskeletal: Normal range of motion. General: No tenderness, deformity or edema. Lymphadenopathy: He has no cervical adenopathy. Neurological: He is alert and oriented to person, place, and time. Skin: Skin is warm and dry. No rash note d. He is not diaphoretic. No erythema. No pallor. Psychiatric: Mood, memory, affect and judgment normal. Pertinent Labs: CBC: Hemoglobin (g/dL) Date Value 06/09/2019 11.8 Hematocrit (%) Date Value 06/09/2019 36.3 WBC (k/uL) Date Value 06/09/2019 8.69 Platelet Count (k/uL) Date Value 06/09/2019 162 BMP: Glucose (mg/dL) Date Value 10/19/2019 96 Potassium (mmol/L) Date Value 10/19/2019 4.6 Sodium (mmol/L) Date Value 10/19/2019 139 Chloride (mmol/L) Date Value 10/19/2019 102 CO2 (mmol/L) Date Value 10/19/2019 25 Creatinine (mg/dL) Date Value 10/19/2019 0.91 BUN (mg/dL) Date Value 10/19/2019 17 Anion Gap (mmol/L) Date Value 10/19/2019 12 Calcium (mg/dL) Date Value 10/19/2019 9.3 INR: Lipid Profile: Cholesterol, Total Date Value Ref Range Status 10/19/2019 151 <200 mg/dL Final Comment: <200 mg/dL, Desirable 200-239 mg/dL, Borderline high >239 mg/dL, High HDL Cholesterol Date Value Ref Range Status 10/19/2019 39 (L) >39 mg/dL Final Comment: 40-59 mg/dL, Acceptable >59 mg/dL, High: Negative risk factor for coronary heart dis ease <40 mg/dL, Low: Positive risk factor for coronary heart dise ase LDL Cholesterol Date Value Ref Range Status 10/19/2019 93 <100 mg/dL Final Comment: <100 mg/dL, Optimal 100-129 mg/dL, Near optimal/above optimal 130-159 mg/dL, Borderline high 160-189 mg/dL, High >189 mg/dL, Very high Secondary prevention optimal LDL Cholest bubba levels are recommended to be < 70 mg/dL Triglyceride Date Value Ref Range Status 10/19/2019 97 <150 mg/dL Final Comment: <150 mg/dL, Normal 150-199 mg/dL, Borderline high 200-499 mg/dL, High >499 mg/dL, Very high Hemoglobin A1C: No results found for: HGBA1C TSH: No results found for: TSHREFL Prior Cardiac Testing Stress test Assessment and Plan: 74 years old with prior history of coronary briseyda ry disease and bypass surgery with recent negative nuclear stress test doing w ell from the cardiac point we will continue same cardiac medical therapy Follow up in 6 months Follow up plannin months follow up Electronically signed by Theron Delong MD on December 16, 4:27 PM The above note was partially created usi ng a dictation recognition software. A reasonable attempt has been made to correct any errors. Referring Provider: BELLA SANTOS [[id number]] Allergies As of Date: 12/17/2019 (No Known Allergies) Date Reviewed: 12/17/2019 Reviewed by: Theron Delong - Fully Assessed Reason for Visit: Established Patient [175] Primary Visit Diagnosis:Intercostal pain [R07.82] Prescriptions as of 12/17/2019 Sig: TAMSULOSIN 0.4 MG CAPSULE Take 1 capsule by mouth twice* LORATADINE 10 MG TABLET Take 1 tablet by mouth once d* OMEPRAZOLE 20 MG CAPSULE,BENNY* Take 1 capsule by mouth daily * ATORVASTATIN 40 MG TABLET Take 1 tablet by mouth daily * METOPROLOL TARTRATE 25 MG TAB* Take 1 tablet by mouth every * COLACE 2-IN-1 ORAL Take by mouth. ACETAMINOPHEN 500 MG TABLET Take 2 tablets by mouth every* ASPIRIN 81 MG TABLET,DELAYED * Take 2 tablets by mouth once * SULFACETAMIDE SODIUM 9.8 %-HARRIS* Apply thin film to affected a * X AMIODARONE 200 MG TABLET Take 1 tablet by mouth once d* Patient not taking: Reported on 07/18/2019 X FUROSEMIDE 20 MG TABLET Take 1 tablet by mouth once d* Problem List As Of Date 12/17/2019 Noted Resolved Dyspnea on exertion [R06.00] Dyslipidemia [E78.5] More... HTN (hypertension) [I10] More... Former smoker, stopped smoking in distant past * HARLEY on CPAP [G47.33, Z99.89] More... Abnormal PFTs (pulmonary function tests) [R94.2]12/27/2014 Rosacea [L71.9] Chest pain [R07.9] 06/01/2019 06/02/2019 More... Chest pain [R07.9] 06/05/2019 06/11/2019 CAD (coronary artery disease) [I25.10] 06/05/2019 S/P CABG x 3 [Z95.1] 06/22/2019 Glucose intolerance [E74.39] 06/22/2019 Chronic sore throat [J31.2] 12/06/2019 More... Intercostal pain [R07.82] 12/17/2019 Disposition: Return in about 6 months (around 06/18/2020). Follow-up and Disposition History Recorded Letter Text Encounter Status:Closed by THERON DELONG MD on 12/17/19 progress on 2019-11 PROGRESS HNO ID: [id number] Normal 12-06-2019 [facility] Author: Calderon Olsen Young ([id number]) Service: ? Author Type: Physician Type: Progress Notes Filed: 12/07/2019 2:11 PM Note Text: This note was created using Xamplifiedriter. Subjective Jocelyn Loaiza is a 74 year old male was here for hospital follow up. PCP Bella Santos MD He was admitted 11/26-11/27 for chest pain, ACS ruled out. He un derwent a stress test which was negative. His medications were not tania nged. He had known coronary artery disease. He had no further chest pains . Covid test was negative. He had cardiology follow up December 16. Part of his ongoing symptoms were chronic sore throat. He wa s referred to ENT Dr. Johnson, who felt he had GERD or allergies. He was pr escribed cimetidine which helped temporarily, then loratadine. Review of Systems Constitutional: Negative. HENT: Positive for postnasal drip and sore throat. Negative for rhinorrhea, sinus pressure, sneezing, trouble swallowing and voice change. Respiratory: Negative. Cardiovascular: Negative. Gastrointestinal: Negative. ACTIVE PROBLEM LIST Dyspnea On Exertion Dyslipidemia Htn (Hypertension) Former Smoker, Stopped Smoking in Distant Past Harley On Cpap Abnormal Pfts (Pulmonary Function Tests) Rosacea Cad (Coronary Artery Disease) S/P Cabg X 3 Glucose Intolerance Current Outpatient Medications Medication Sig - tamsulosin ER (FLOMAX) 0.4 mg Take 1 capsule by mouth tw e daily. Dr. Shaffer. - cimetidine (TAGAMET) 400 mg tablet Take 400 mg by mouth on ce daily. - atorvastatin (LIPITOR) 40 mg tablet Take 1 tablet by mouth daily at bedtime. - metoprolol tartrate, short acting, (LOPRESSOR) 25 mg table t Take 1 tablet by mouth every 12 hours. - sennosides/docusate sodium (COLACE 2-IN-1 ORAL) Take by mo [facility]. - acetaminophen (TYLENOL) 500 mg tablet Take 2 tablets by mo [facility] every 6 hours. - aspirin, enteric coated (ASPIRIN, ENTERIC COATED) 81 mg EC tablet Take 2 tablets by mouth once daily. - sulfacetamide sodium-sulfur 9.8-4.8 % lotn Apply thin film to affected area 1 times daily. - loratadine (CLARITIN) 10 mg tablet Take 1 tablet by mouth once daily. No current facility-administered medications for this visit. Objective BP 150/90 Pulse 68 Temp 36.2 ?C (97.1 ?F) Resp 16 Wt 73.5 kg (162 lb) SpO2 96% BMI 25.37 kg/m? Physical Exam Constitutional: General: He is not in acute distress. Appearance: He is not ill-appearing. HENT: Nose: No congestion or rhinorrhea. Mouth/Throat: Pharynx: Posterior oropharyngeal erythema present. No oropha ryngeal exudate. Comments: Postnasal drainage noted. Neck: Musculoskeletal: No muscular tenderness. Cardiovascular: Rate and Rhythm: Normal rate and regular rhythm. Pulmonary: Breath sounds: No wheezing or rales. Abdominal: Tenderness: There is no abdominal tenderness. Lymphadenopathy: Cervical: No cervical adenopathy. Neurological: Mental Status: He is alert. Hospital discharge summary reviewed. ENT consult reviewed. Assessment and Plan 1. Gastroesophageal reflux disease, esophagitis presence not specified - ICD9: 530.81, ICD10: K21.9 (primary diagnosis) - Discontinue TAGAMET. - OMEPRAZOLE 20 MG CAPSULE,DELAYED RELEASE 2. Chronic sore throat - ICD9: 472.1, ICD10: J31.2 Return to ENT if not better. - OMEPRAZOLE 20 MG CAPSULE,DELAYED RELEASE 3. Postnasal drip - ICD9: 784.91, ICD10: R09.82 Continue LORATADINE. 4. Coronary artery disease involving nez perce coronary artery of nez perce heart without angina pectoris - ICD9: 414.01, ICD10: I25.10 Stable. 5. Essential hypertension - ICD9: 401.9, ICD10: I10 - suboptimal control - Continue current medication(s) - Follow up with cardiology and PCP. MD cynthia Godinezov on 2019-12-06 CNOV Office Visit (INTMWS) Normal 12-05- 20 Young JOCELYN Arias ([id number]) 1945 [facility] Date Time Provider Department ([id number]) 12/06/19 5:20 PM CALDERON OLSEN INTSTU During your visit today, we recorded the following informati on about you: Temperature Pulse Respiration Blood pressure 97.1 degrees 68/minute 16/minute 150/90 Weight 73.5 kg Calderon Olsen MD 12/07/2019 2:11 PM Signed This note was created using Xamplifiedriter. Subjective Jocelyn Loaiza is a 74 year old male was here for hospital follow up. PCP Bella Santos MD He was admitted 11/26-11/27 for chest pain, ACS ruled out. He underwent a stress test which was negative. His medications were not changed. Ajith schuster had known coronary artery disease. He had no further chest pains. Covi d test was negative. He had cardiology follow up December 16. Part of his ongoing symptoms were chronic sore t hroat. He was referred to ENT Dr. Johnson, who felt he had GERD or allergies. He was pres cribed cimetidine which helped temporarily, then loratadine. Review of Systems Constitutional: Negative. HENT: Positive for postnasal drip and sore throat. Negativ e for rhinorrhea, sinus pressure, sneezing, trouble swallowing and voice wilson e. Respiratory: Negative. Cardiovascular: Negative. Gastrointestinal: Negative. ACTIVE PROBLEM LIST Dyspnea On Exertion Dyslipidemia Htn (Hypertension) Former Smoker, Stopped Smoking in Distant Past Harley On Cpap Abnormal Pfts (Pulmonary Function Tests) Rosacea Cad (Coronary Artery Disease) S/P Cabg X 3 Glucose Intolerance Current Outpatient Medications Medication Sig - tamsulosin ER (FLOMAX) 0.4 mg Take 1 capsule by mouth twic e daily. Dr. Shaffer. - cimetidine (TAGAMET) 400 mg tablet Take 400 mg by mouth on ce daily. - atorvastatin (LIPITOR) 40 mg tablet Ta ke 1 tablet by mouth daily at bedtime. - metoprolol tartrate, short acting, (LO PRESSOR) 25 mg tablet Take 1 tablet by mouth every 12 hours. - sennosides/docusate sodium (COLACE 2-IN-1 ORAL) Take by [facility]. - acetaminophen (TYLENOL) 500 mg tablet Take 2 tablets by mouth every 6 hours. - aspirin, enteric coated (ASPIRIN, ENTERIC COATED) 81 mg EC tablet Take 2 tablets by mouth once daily. - sulfacetamide sodium-sulfu r 9.8-4.8 % lotn Apply thin film to affected area 1 times daily. - loratadine (CLARITIN) 10 mg tablet Take 1 tablet by mouth once daily. No current facility-administered medications for this visit. Objective BP 150/90 Pulse 68 Temp 36.2 ?C (97.1 ?F) Resp 16 Wt 73.5 kg (162 lb) SpO2 96% BMI 25.37 kg/m? Physical Exam Constitutional: General: He is not in acute distress. Appearance: He is not ill-appearing. HENT: Nose: No congestion or rhinorrhea. Mouth/Throat: Pharynx: Posterior oropharyngeal erythema present. No oropharyngeal exudate. Comments: Postnasal drainage noted. Neck: Musculoskeletal: No muscular tenderness. Cardiovascular: Rate and Rhythm: Normal rate and regular rhythm. Pulmonary: Breath sounds: No wheezing or rales. Abdominal: Tenderness: There is no abdominal tenderness. Lymphadenopathy: Cervical: No cervical adenopathy. Neurological: Mental Status: He is alert. Hospital discharge summary reviewed. ENT consult reviewed. Assessment and Plan 1. Gastroesophageal reflux disease, esop hagitis presence not specified - ICD9: 530.81, ICD10: K21.9 (primary diagnosis) - Discontinue TAGAMET. - OMEPRAZOLE 20 MG CAPSULE,DELAYED RELEASE 2. Chronic sore throat - ICD9: 472.1, ICD10: J31.2 Return to ENT if not better. - OMEPRAZOLE 20 MG CAPSULE,DELAYED RELEASE 3. Postnasal drip - ICD9: 784.91, ICD10: R09.82 Continue LORATADINE. 4. Coronary artery disease involving nez perce coronary arter y of nez perce heart without angina pectoris - ICD9: 414.01, ICD10: I25.10 Stable. 5. Essential hypertension - ICD9: 401.9, ICD10: I10 - suboptimal control - Continue current medication(s) - Follow up with cardiology and PCP. MD Calderon Godinez MD 12/06/2019 5:[address] JOHNSON IF THROAT PAIN DOES NOT IMPROVE ON OMEPRAZOLE . STOP TAGAMET. Referring Provider: SELF [[id number]] Allergies As of Date: 12/06/2019 (No Known Allergies) Date Reviewed: 12/06/2019 Reviewed by: Lily Sarabia LPN - Fully Assessed Reason for Visit: Hospital F/U [57] Primary Visit Diagnosis:Gastroesophageal reflux disease, esophagitis presence not specified [K21.9] Other Visit Diagnoses:Chronic sore throat [J31.2] Postnasal drip [R09.82] Coronary artery disease involving nez perce coronary artery of nez perce heart without angina pectoris [I25.10] Essential hypertension [I10] Order(s):omeprazole (PRILOSEC) 20 mg capsuleTake 1 capsule b y mouth daily before breakfast. 1/2 hr before meal.Disp: 30 capsuleRfl: 2 Prescriptions as of 12/06/2019 Sig: TAMSULOSIN 0.4 MG CAPSULE Take 1 capsule by mouth twice* ATORVASTATIN 40 MG TABLET Take 1 tablet by mouth daily * METOPROLOL TARTRATE 25 MG TAB* Take 1 tablet by mouth every * COLACE 2-IN-1 ORAL Take by mouth. ACETAMINOPHEN 500 MG TABLET Take 2 tablets by mouth every* ASPIRIN 81 MG TABLET,DELAYED * Take 2 tablets by mouth once * SULFACETAMIDE SODIUM 9.8 %-HARRIS* Apply thin film to affected a * LORATADINE 10 MG TABLET Take 1 tablet by mouth once d* OMEPRAZOLE 20 MG CAPSULE,BENNY* Take 1 capsule by mouth daily * X AMIODARONE 200 MG TABLET Take 1 tablet by mouth once d* Patient not taking: Reported on 07/18/2019 X FUROSEMIDE 20 MG TABLET Take 1 tablet by mouth once d* Problem List As Of Date 12/06/2019 Noted Resolved Dyspnea on exertion [R06.00] Dyslipidemia [E78.5] More... HTN (hypertension) [I10] More... Former smoker, stopped smoking in distant past * HARLEY on CPAP [G47.33, Z99.89] More... Abnormal PFTs (pulmonary function tests) [R94.2]12/27/2014 Rosacea [L71.9] Chest pain [R07.9] 06/01/2019 06/02/2019 More... Chest pain [R07.9] 06/05/2019 06/11/2019 CAD (coronary artery disease) [I25.10] 06/05/2019 S/P CABG x 3 [Z95.1] 06/22/2019 Glucose intolerance [E74.39] 06/22/2019 Chronic sore throat [J31.2] 12/06/2019 More... Other instructions from your clinician: SEE DR. JOHNSON IF THROAT PAIN DOES NOT IMPROVE ON OMEPRAZOLE . STOP TAGAMET. Prescriptions ordered this encounter Disp Refills Start End OMEPRAZOLE 20 MG CAPSULE,DELAYED REL* 30 c* 2 12/06/2019 Route: ORAL Sig: Take 1 capsule by mouth daily before breakfast. 1/2 hr before meal. Medications Discontinued During This Encounter Prescriptions - tamsulosin ER (FLOMAX) 0.4 mg (Discontinued) Take 0.4 mg by mouth twice daily. - traMADol (ULTRAM) 50 mg tablet (Discontinued) TAKE 1 TABLET BY MOUTH EVERY 6 HOURS NEEDED FOR PAIN FOR UP TO 7 DAYS. - cimetidine (TAGAMET) 400 mg tablet (Discontinued) Take 400 mg by mouth once daily. Disposition: Return if symptoms worsen or fail to improve. Follow-up and Disposition History Recorded Encounter Status:Closed by CALDERON OLSEN MD on 12/07/19 cnpn on 2019-11-30 [facility] Normal 11-30-2019 [facility] JOCELYN LOAIZA ([id number]) 1945 [facility] Date Time Provider Department ([id number]) 11/30/19 BELLA SANTOS FAMBASHIR During your visit today, we recorded the following informati on about you: Diana Beltre MA, MA 11/30/2019 11:04 AM Signed Received ppw for hospital follow up from [facility], for chest pain Patient is seeing cardiology , Called and left message for patient to call back to see if he has a appointment with cardiology does not need a TCM due to s eeing them per Joe Shelton CNP. TYLER Alejandra RN 11/30/2019 4:58 PM Signed Pt called, verified by name and birthdate. Pt states he wants to follow up with cardiology and then will fol low up with PCP if needed. Pt transferred to PSR to schedule cardiology apt Valeri Vides RN Allergies As of Date: 11/30/2019 (No Known Allergies) Date Reviewed: 10/24/2019 Reviewed by: Jocelyn Walker MA - Fully Assessed Reason for Visit: Hospital F/U [57] Prescriptions as of 11/30/2019 Sig: CIMETIDINE 400 MG TABLET Take 400 mg by mouth once kathryn* ATORVASTATIN 40 MG TABLET Take 1 tablet by mouth daily * METOPROLOL TARTRATE 25 MG TAB* Take 1 tablet by mouth every * COLACE 2-IN-1 ORAL Take by mouth. ACETAMINOPHEN 500 MG TABLET Take 2 tablets by mouth every* TAMSULOSIN 0.4 MG CAPSULE Take 1 capsule by mouth once * Patient taking differently: Take 0.4 mg by mouth twice da* ASPIRIN 81 MG TABLET,DELAYED * Take 2 tablets by mouth once * SULFACETAMIDE SODIUM 9.8 %-HARRIS* Apply thin film to affected a * Problem List As Of Date 11/30/2019 Noted Resolved Dyspnea on exertion [R06.00] Dyslipidemia [E78.5] More... HTN (hypertension) [I10] More... Former smoker, stopped smoking in distant past * HARLEY on CPAP [G47.33, Z99.89] More... Abnormal PFTs (pulmonary function tests) [R94.2]12/27/2014 Rosacea [L71.9] Chest pain [R07.9] 06/01/2019 06/02/2019 More... Chest pain [R07.9] 06/05/2019 06/11/2019 CAD (coronary artery disease) [I25.10] 06/05/2019 S/P CABG x 3 [Z95.1] 06/22/2019 Glucose intolerance [E74.39] 06/22/2019 Encounter Status:Closed by VALERI VIDES RN on 11/30/19 cnpn on 2019-11-26 [facility] Normal 11-26-2019 [facility] JOC[facility] LOAIZA ([id number]) 1945 [facility] Date Time Provider Department ([id number]) 11/26/19 BELLA SANTOS During your visit today, we recorded the following informati on about you: Xander Ruiz 11/26/2019 9:13 AM Signed Patient called stating per VV over weekend, he was instructe d to get Covid test. Looks like the provider meant to order the test, but w as not done. TC to the Covid referral line at [phone] an d was instructed to reach out to the provider that patient had VV with. Unable to locate [facility] [place]. Please advise and call patient. Once order entered, patient can call [phone] or [phone] to schedule (per referral line rep). Bella Santos MD 11/26/2019 9:35 AM Signed Would he prefer to get tested in [place]? I can send order to [facility] if he does. MD Kenzie Xiao Ma 11/26/2019 9:46 AM Signed Pt notified that covid test order has been faxed to [facility]. Pt given numbers to call to set up appt for test. ? Kenzie Prasad Ma ? Allergies As of Date: 11/26/2019 (No Known Allergies) Date Reviewed: 10/24/2019 Reviewed by: Jocelyn Walker MA - Fully Assessed Reason for Visit: Covid order [Other] Prescriptions as of 11/26/2019 Sig: CIMETIDINE 400 MG TABLET Take 400 mg by mouth once kathryn* ATORVASTATIN 40 MG TABLET Take 1 tablet by mouth daily * METOPROLOL TARTRATE 25 MG TAB* Take 1 tablet by mouth every * COLACE 2-IN-1 ORAL Take by mouth. ACETAMINOPHEN 500 MG TABLET Take 2 tablets by mouth every* TAMSULOSIN 0.4 MG CAPSULE Take 1 capsule by mouth once * Patient taking differently: Take 0.4 mg by mouth twice da* ASPIRIN 81 MG TABLET,DELAYED * Take 2 tablets by mouth once * SULFACETAMIDE SODIUM 9.8 %-HARRIS* Apply thin film to affected a * Problem List As Of Date 11/26/2019 Noted Resolved Dyspnea on exertion [R06.00] Dyslipidemia [E78.5] More... HTN (hypertension) [I10] More... Former smoker, stopped smoking in distant past * HALREY on CPAP [G47.33, Z99.89] More... Abnormal PFTs (pulmonary function tests) [R94.2]12/27/2014 Rosacea [L71.9] Chest pain [R07.9] 06/01/2019 06/02/2019 More... Chest pain [R07.9] 06/05/2019 06/11/2019 CAD (coronary artery disease) [I25.10] 06/05/2019 S/P CABG x 3 [Z95.1] 06/22/2019 Glucose intolerance [E74.39] 06/22/2019 Encounter Status:Closed by KENZIE PRASAD MA on 11/26/19 [facility] Normal 11-26-2019 [facility] JOCELYN LOAIZA ([id number]) 1945 [facility] Date Time Provider Department ([id number]) 11/26/19 [facility] During your visit today, we recorded the following informati on about you: Kenzie Prasad Ma 11/26/2019 9:56 AM Signed Requesting lab results, specifically asking about kidney res ults. Kenzie Prasad Ma 11/26/2019 9:57 AM Signed Disregard note, this was for pt . Kenzie Prasad Ma Allergies As of Date: 11/26/2019 (No Known Allergies) Date Reviewed: 10/24/2019 Reviewed by: Jocelyn Walker MA - Fully Assessed Reason for Visit: Results [95] Prescriptions as of 11/26/2019 Sig: CIMETIDINE 400 MG TABLET Take 400 mg by mouth once kathryn* ATORVASTATIN 40 MG TABLET Take 1 tablet by mouth daily * METOPROLOL TARTRATE 25 MG TAB* Take 1 tablet by mouth every * COLACE 2-IN-1 ORAL Take by mouth. ACETAMINOPHEN 500 MG TABLET Take 2 tablets by mouth every* TAMSULOSIN 0.4 MG CAPSULE Take 1 capsule by mouth once * Patient taking differently: Take 0.4 mg by mouth twice da* ASPIRIN 81 MG TABLET,DELAYED * Take 2 tablets by mouth once * SULFACETAMIDE SODIUM 9.8 %-HARRIS* Apply thin film to affected a * Problem List As Of Date 11/26/2019 Noted Resolved Dyspnea on exertion [R06.00] Dyslipidemia [E78.5] More... HTN (hypertension) [I10] More... Former smoker, stopped smoking in distant past * HARLEY on CPAP [G47.33, Z99.89] More... Abnormal PFTs (pulmonary function tests) [R94.2]12/27/2014 Rosacea [L71.9] Chest pain [R07.9] 06/01/2019 06/02/2019 More... Chest pain [R07.9] 06/05/2019 06/11/2019 CAD (coronary artery disease) [I25.10] 06/05/2019 S/P CABG x 3 [Z95.1] 06/22/2019 Glucose intolerance [E74.39] 06/22/2019 Encounter Status:Closed by KENZIE PRASAD MA on 11/26/19 progress on 2019-11 PROGRESS HNO ID: [id number] Normal 11-25-2019 [facility] Author: Marcio Neri Young ([id number]) Service: ? Author Type: Physician Type: Progress Notes Filed: 11/25/2019 10:57 AM Note Text: null ( ) Visit Summary for JOCELYN LOAIZA - Gender: Male - Date of : [id number] Date: [id number] - Duration: 13 minutes Patient: JOCELYN LOAIZA Provider: [facility] Patient Contact Information Address [address] [place] [id number] [phone] Visit Topics Covid-19 symptoms: other [Added By: Self - 2019-11-25] Triage Questions Do you have a cough, shortness of breath, difficulty breathi ng, fever, chills, headache, sore throat, muscles aches, acute change i n smell or taste?Answer [sore throat, fatigue, shortness of breath] Hav e you been in contact with anyone confirmed with COVID 19 or suspected of having COVID 19 within the past 14 days?Answer [not that I'm aware of] Do you have any of the following: weak immune system, asthma or chronic lung disease, kidney problems and on dialysis, active cancer, diabetes or heart disease or high blood pressure, HIV or organ transplant? Answer [cor onary artery disease] Do you have any vulnerable family members in the me (, , weak immune system, lung disease, active cancer, e lderly)?Answer [yes] Are you currently working in a healthcare facility? An swer [no] What is the address where you are currently located? This is impo rtant in case of a medical emergency.Answer [[address] [place] [address]] Please enter a number I can contact you in the event we are disconnected. Answer [[phone]] Please list the reason for your visit today Answer [See above] Conversation Transcripts [Notification] You are connected with Gilda Sood Physician.[Notification] JOCELYN LOAIZA is located in [place]. [Notification] JOCELYN LOAIZA has shared health history... Diagnosis Other viral infections of unspecified site Value: B34.8 Code: ICD-10-CM Encounter for screening for other viral diseases Value: Z11. 59 Code: ICD-10-CM Procedures Value: 86273 Code: CPT-4 OFFICE/OUTPATIENT VISIT EST Medications Prescribed cimetidine Frequency : atorvastatin Frequency : metoprolol tartrate Frequency : Flomax Frequency : tamsulosin Frequency : docusate sodium Frequency : Aspirin Low Strength Frequency : Provider Notes Mode of Communication: Computer. Patients information [facility] ed. History: Patient is 74 yo M presenting for a sore throat, mild shortn ess of breath, fatigue, runny nose, nasal congestion. He denies fever, whee zing, diarrhea, body aches, cough, tobacco use, exposure to Covid 19. Patient is retired. Patient does admit to going grocery shopping, [place], he wears his mask, and practices social distancing. Symptoms started 2 days ago. Patient lives with his . currently has no symptoms. Past Medical History: CAD s/p bypass 05/2019, HTN, HLDMedications: Reviewe d Allergies:None Exam: Per patients assisted examGeneral: Appe ars comfortable, in no acute distress. Eyes: normal conjunctiva Nose: No dischargeSinuses: None tenderNeck: No enlarged lymph nodes. Respiratory: Normal respirations, no audible wheezing present. OtherAsses sment: Acute viral illness, Screening viral illness. Diagnosis codePlan: Order placed, patient made aware that the order does not guarantee the madhavi t would be carried out 100 %, i explained that different testing sites still have set guidelines. Symptoms likely viral, hold off on antibiotics a t this time. Patient appears stable, in no acute distress. Symptomatic me asures, and below home care encouraged. Counseled extensively on worseni ng signs of Covid 19, advised to go straight to the ED if present. Benjamin nt was in agreement with plan, and verbalized understanding. Home care : Acetaminophen as needed for pain or fever May also use Neti pot, nasal saline or throat lozenges as needed, adequate fluid hydratio n, tea with honey, vicks to chest, humidifier use. Referral or follow up : As needed for worsening or if no improvement If you received a prescri ption at this visit and you have a question or problem please call [phone] for prescription assistance Please print a copy of this note and send it to your regular doctor, or take it to your next visit so it may be included in your medical record Please see your primary care provider on an annual basis or more frequently if directed The yuko shannon voiced understanding and agreement with plan. Electronically signed by: [facility]( ) progress on 2019-10 PROGRESS HNO ID: [id number] Normal 10-24-2019 [facility] Author: Bella Santos Young ([id number]) Service: ? Author Type: Physician Type: Progress Notes Filed: 10/25/2019 11:11 AM Note Text: Chief Complaint Patient presents with: F/U 3 Month HPI Jocelyn Loaiza is a 74 year old male who presents here toda y for a 3 mo f/u. HTN - Denies checking BP at home but having BP checked at [facility] rehab 3 times per week. Reports that BP is doing good. Currently deb ing Lopressor 25 mg 1 tab po every 12 hours. Reports that Cardiac Rehab is going well, thinks he has one more month. Recently established his care to Dr. Delong at [facility] for his cardiac care. Really liked him. Lipids - Taking Lipitor 40 mg once daily. Active with exerci sing such as hiking and going to cardiac rehab 3 x per week. Could improv e his diet, likes to snack. Thinking about seeing a bakery sales clerk/nutrition to help with ideas. He needs to check his insurance. Dr. Delong suggested he start taking Vitamin B6 to help with his HDL. Reports rash in groin for a while area he'd like to have loo ked at. Nothing really tried other then a solution of vinegar that Maribell Dumont has tried. Reports that its less itch then it was before. Lipoma on his left arm he'd like to have looked at. Past medical history, appointments, medications, allergies r eviewed. Previous Medical History PAST MEDICAL HISTORY Diagnosis Date - Dyslipidemia - Dyspnea on exertion - Former smoker, stopped smoking in distant past - HTN (hypertension) - Kidney stones - HARLYE on CPAP - Rosacea Previous Surgical History PAST SURGICAL HISTORY Procedure Laterality Date - COLONOSCOP W/ OR W/O [facility] SPEC 02/15/2019 Colonoscopy - COLONOSCOPY 2006 - HERNIA REPAIR HX childhood and 2007 x3 - PAST SURGICAL HISTORY OF lithotripsy, multiple - PAST SURGICAL HISTORY OF laser prostate - TONSILLECTOMY HX Family History FAMILY HISTORY Problem Relation Age of Onset - other (No CAD) Father - Cancer Mother , lung - Cancer Brother thyroid Patient Allergies ALLERGIES No Known Allergies Current Medications Current Outpatient Medications on File Prior to Visit Medication Sig - cimetidine (TAGAMET) 400 mg tablet Take 400 mg by mouth on ce daily. - atorvastatin (LIPITOR) 40 mg tablet Take 1 tablet by mouth daily at bedtime. - metoprolol tartrate, short acting, (LOPRESSOR) 25 mg table t Take 1 tablet by mouth every 12 hours. - sennosides/docusate sodium (COLACE 2-IN-1 ORAL) Take by [facility]. - acetaminophen (TYLENOL) 500 mg tablet Take 2 tablets by [facility] every 6 hours. - tamsulosin ER (FLOMAX) 0.4 mg cap Take 1 capsule by mouth once daily. (Patient taking differently: Take 0.4 mg by mouth twice bridgette y. ) - aspirin, enteric coated (ASPIRIN, ENTERIC COATED) 81 mg EC tablet Take 2 tablets by mouth once daily. - sulfacetamide sodium-sulfur 9.8-4.8 % lotn Apply thin film to affected area 1 times daily. No current facility-administered medications on file prior t o visit. Social History Social History Tobacco Use - Smoking status: Former Smoker Packs/day: 1.00 Years: 7.00 Pack years: 7.00 Types: Cigarettes Last attempt to quit: 12/27/1976 Years since quittin.8 - Smokeless tobacco: Never Used - Tobacco comment: on and off Substance Use Topics - Alcohol use: Yes Frequency: 2-3 times a week Drinks per session: 1 or 2 Binge frequency: Never Comment: occasional - Drug use: No EXAM: BP 130/82 (BP Site: Left Arm, BP Position: Sitting, BP Cuff Size: Regular Adult) Pulse 64 Resp 16 Wt 74.8 kg (165 lb) BMI 25.8 4 kg/m? General Appearance: Well appearing, alert, in no acute distr ess, well-hydrated, well nourished. Skin: rash located in groin, mildly erythematous, circular. Lungs: Lungs clear to auscultation. No wheezing, rhonchi, ra les.. Heart: RRR without murmur, gallop, or rubs. No ectopy. Extremities: Lipoma located on proximal anterior left upper extremity, soft, moveable Health Maintenance List HEPATITIS C SCREENING due on 1963 BP CONTROLLED (<130/80) due on 1964 SHINGRIX VACCINE(1 of 2) due on 1996 ADVANCE DIRECTIVE DISCUSSION due on 09/08/2011 INFLUENZA(1) due on 12/25/2019 ANNUAL PCP TEAM CHRONIC DISEASE VISIT due on 07/23/2020 LDL CHOLESTEROL due on 10/18/2020 DIABETES SCREEN due on 10/18/2022 COLORECTAL CANCER SCREENING,SEE MODIFIER due on 02/16/2024 LIPID SCREEN due on 10/18/2024 DTAP,TDAP,TD(2 - Td) due on 02/07/2027 PNEUMOVAX AGE 65 AND OVER WITH 5YR LOOKBACK Completed Data reviewed Appointment on 10/19/2019 Component Date Value - Protein, Total 10/19/2019 6.2* - Albumin 10/19/2019 4.1 - Calcium 10/19/2019 9.3 - Bilirubin, Total 10/19/2019 0.4 - Alkaline Phosphatase 10/19/2019 58 - AST 10/19/2019 24 - Glucose 10/19/2019 96 - BUN 10/19/2019 17 - Creatinine 10/19/2019 0.91 - Sodium 10/19/2019 139 - Potassium 10/19/2019 4.6 - Chloride 10/19/2019 102 - CO2 10/19/2019 25 - Anion Gap 10/19/2019 12 - ALT 10/19/2019 15 - eGFR- 10/19/2019 >60 - eGFR-All Other Races 10/19/2019 >60 - Cholesterol, Total 10/19/2019 151 - Triglyceride 10/19/2019 97 - HDL Cholesterol 10/19/2019 39* - LDL Cholesterol 10/19/2019 93 - Non HDL Cholesterol 10/19/2019 112 - Fasting Time 10/19/2019 12 - VLDL Cholesterol 10/19/2019 19 - TC:HDL Ratio 10/19/2019 3.87 - LDL:HDL Ratio 10/19/2019 2.38 - Vitamin D 25 Hydroxy 10/19/2019 25.7* 6 mo f/u. ASSESSMENT/PLAN: 1. Essential hypertension - ICD9: 401.9, ICD10: I10 (primary diagnosis) - good control - Continue current medication(s) - Recommended regular aerobic exercise. - Recommend home blood pressure monitoring, to bring results in on next visit - Goal of BP <140/90 - COMP METABOLIC PANEL 2. Dyslipidemia - ICD9: 272.4, ICD10: E78.5 - good control - Continue current medication. - LIPID PANEL BASIC 3. S/P CABG x 3 - ICD9: V45.81, ICD10: Z95.1 Continue current medications. Continue rehab/exericsing 4. Lipoma of left upper extremity - ICD9: 214.8, ICD10: D17. 22 Monitor; reassurance 5. Jock itch - ICD9: 110.3, ICD10: B35.6 OTC antifungal cream Follow up in 6 months I agree with the Chief Complaint, ROS, and Past Histories in dependently gathered by the clinical computer support analyst and the remaining scr ibed note accurately describes my personal service to the patient. Bella Santos MD The documentation for this note was completed by Jocelyn ernst MA acting as scribe for Bella Santos MD. October 24, 2019 1:23 PM. Jocelyn Walker MA cnov on 2019-10-24 CNOV Office Visit (FAMPWS) Normal 10-24-19 20 [facility] JOCELYN LOAIZA ([id number]) 1945 [place] Date Time Provider Department ([id number]) 10/24/19 1:20 PM [facility] During your visit today, we recorded the following informati on about you: Pulse Respiration Blood pressure Weight 64/minute 16/minute 130/82 74.8 kg Bella Santos MD 10/25/2019 11:11 AM Signed Chief Complaint Patient presents with: F/U 3 Month HPI Jocelyn Loaiza is a 74 year old male who presen ts here today for a 3 mo f/u. HTN - Denies checking BP at home but having BP checked at cardiac rehab 3 times per week. Reports that BP is doing good. Currently taking Lopressor 25 mg 1 tab po every 12 hours. Reports that Card iac Rehab is going well, thinks he has one more month. Recently established his care to Dr. Delong at [facility] for his cardiac care. Really liked him. Lipids - Taking Lipitor 40 m g once daily. Active with exercising such as hiking and going to cardiac rehab 3 x per week. Could improve his d iet, likes to snack. Thinking about seeing a bakery sales clerk/nutrition to help with ideas. He needs to check his insurance. Dr. Delong suggested he start taking Vitamin B6 to help with his HDL. Reports rash in groin for a while area he'd like to have l ooked at. Nothing really tried other then a so lution of vinegar that Dr. Dumont has tried. Reports that its less itch then it was before. Lipoma on his left arm he'd like to have looked at. Past medical history, appointments, medications, allergies r eviewed. Previous Medical History PAST MEDICAL HISTORY Diagnosis Date - Dyslipidemia - Dyspnea on exertion - Former smoker, stopped smoking in distant past - HTN (hypertension) - Kidney stones - HARLEY on CPAP - Rosacea Previous Surgical History PAST SURGICAL HISTORY Procedure Laterality Date - COLONOSCOP W/ OR W/O [facility] SPEC 02/15/2019 Colonoscopy - COLONOSCOPY 2006 - HERNIA REPAIR HX childhood and 2007 x3 - PAST SURGICAL HISTORY OF lithotripsy, multiple - PAST SURGICAL HISTORY OF laser prostate - TONSILLECTOMY HX Family History FAMILY HISTORY Problem Relation Age of Onset - other (No CAD) Father - Cancer Mother , lung - Cancer Brother thyroid Patient Allergies ALLERGIES No Known Allergies Current Medications Current Outpatient Medications on File Prior to Visit Medication Sig - cimetidine (TAGAMET) 400 mg tablet Take 400 mg by mouth on ce daily. - atorvastatin (LIPITOR) 40 mg tablet Ta ke 1 tablet by mouth daily at bedtime. - metoprolol tartrate, short acting, (LO PRESSOR) 25 mg tablet Take 1 tablet by mouth every 12 hours. - sennosides/docusate sodium (COLACE 2-IN-1 ORAL) Take by [facility]. - acetaminophen (TYLENOL) 500 mg tablet Take 2 tablets by mouth every 6 hours. - tamsulosin ER (FLOMAX) 0.4 mg cap Take 1 capsule by mouth once daily. (Patient taking differently: Take 0.4 mg by mouth twice bridgette y. ) - aspirin, enteric coated (ASPIRIN, ENTERIC COATED) 81 mg EC tablet Take 2 tablets by mouth once daily. - sulfacetamide sodium-sulfu r 9.8-4.8 % lotn Apply thin film to affected area 1 times daily. No current facility-administered medications on file prior t o visit. Social History Social History Tobacco Use - Smoking status: Former Smoker Packs/day: 1.00 Years: 7.00 Pack years: 7.00 Types: Cigarettes Last attempt to quit: 12/27/1976 Years since quittin.8 - Smokeless tobacco: Never Used - Tobacco comment: on and off Substance Use Topics - Alcohol use: Yes Frequency: 2-3 times a week Drinks per session: 1 or 2 Binge frequency: Never Comment: occasional - Drug use: No EXAM: BP 130/82 (BP Site: Left Arm, BP Position: Sitting, BP Cuff Size: Regular Adult) Pulse 64 Resp 16 Wt 74.8 kg (165 lb) BMI 25.8 4 kg/m? General Appearance: Well thomas earing, alert, in no acute distress, well-hydrated, well nourished. Skin: rash located in groin, mildly erythematous, circular. Lungs: Lungs clear to auscultation. No wheezing, rhonchi, ra les.. Heart: RRR without murmur, gallop, or rubs. No ectopy. Extremities: Lipoma located on proximal anterior left upper extremity, soft, moveable Health Maintenance List HEPATITIS C SCREENING due on 1963 BP CONTROLLED (<130/80) due on 1964 SHINGRIX VACCINE(1 of 2) due on 1996 ADVANCE DIRECTIVE DISCUSSION due on 09/08/2011 INFLUENZA(1) due on 12/25/2019 ANNUAL PCP TEAM CHRONIC DISEASE VISIT due on 07/23/2020 LDL CHOLESTEROL due on 10/18/2020 DIABETES SCREEN due on 10/18/2022 COLORECTAL CANCER SCREENING,SEE MODIFIER due on 02/16/2024 LIPID SCREEN due on 10/18/2024 DTAP,TDAP,TD(2 - Td) due on 02/07/2027 PNEUMOVAX AGE 65 AND OVER WITH 5YR LOOKBACK Completed Data reviewed Appointment on 10/19/2019 Component Date Value - Protein, Total 10/19/2019 6.2* - Albumin 10/19/2019 4.1 - Calcium 10/19/2019 9.3 - Bilirubin, Total 10/19/2019 0.4 - Alkaline Phosphatase 10/19/2019 58 - AST 10/19/2019 24 - Glucose 10/19/2019 96 - BUN 10/19/2019 17 - Creatinine 10/19/2019 0.91 - Sodium 10/19/2019 139 - Potassium 10/19/2019 4.6 - Chloride 10/19/2019 102 - CO2 10/19/2019 25 - Anion Gap 10/19/2019 12 - ALT 10/19/2019 15 - eGFR- 10/19/2019 >60 - eGFR-All Other Races 10/19/2019 >60 - Cholesterol, Total 10/19/2019 151 - Triglyceride 10/19/2019 97 - HDL Cholesterol 10/19/2019 39* - LDL Cholesterol 10/19/2019 93 - Non HDL Cholesterol 10/19/2019 112 - Fasting Time 10/19/2019 12 - VLDL Cholesterol 10/19/2019 19 - TC:HDL Ratio 10/19/2019 3.87 - LDL:HDL Ratio 10/19/2019 2.38 - Vitamin D 25 Hydroxy 10/19/2019 25.7* 6 mo f/u. ASSESSMENT/PLAN: 1. Essential hypertension - ICD9: 401.9, ICD10: I10 (primary diagnosis) - good control - Continue current medication(s) - Recommended regular aerobic exercise. - Recommend home blood pressure monitoring, to b ring results in on next visit - Goal of BP <140/90 - COMP METABOLIC PANEL 2. Dyslipidemia - ICD9: 272.4, ICD10: E78.5 - good control - Continue current medication. - LIPID PANEL BASIC 3. S/P CABG x 3 - ICD9: V45.81, ICD10: Z95.1 Continue current medications. Continue rehab/exericsing 4. Lipoma of left upper extremity - ICD9: 214.8, ICD10: D17. 22 Monitor; reassurance 5. Jock itch - ICD9: 110.3, ICD10: B35.6 OTC antifungal cream Follow up in 6 months I agree with the Chief Complaint, ROS, and Past Histories in dependently gathered by the clinical computer support analyst and the remaining scr ibed note accurately describes my personal service to the patient. Bella Santos MD The documentation for this note was completed by Jocelyn ernst MA acting as scribe for Bella Santos MD. October 24, 2019 1:23 PM. Jocelyn Walker MA 10/24/2019 1:40 PM Signed For rash purchase Lotrisone cream over the counter. Referring Provider: SELF [[id number]] Allergies As of Date: 10/24/2019 (No Known Allergies) Date Reviewed: 10/24/2019 Reviewed by: Jocelyn Walker MA - Fully Assessed Reason for Visit: F/U 3 Month [443] Primary Visit Diagnosis:Essential hypertension [I10] Other Visit Diagnoses:Dyslipidemia [E78.5] S/P CABG x 3 [Z95.1] Lipoma of left upper extremity [D17.22] Jock itch [B35.6] Order(s):COMP METABOLIC PANEL [SQCMP] Order #: [id number] KAILA ALEX LIPID PANEL BASIC [SQLIPB] Order #: [id number] FUTURE Prescriptions as of 10/24/2019 Sig: CIMETIDINE 400 MG TABLET Take 400 mg by mouth once kathryn* ATORVASTATIN 40 MG TABLET Take 1 tablet by mouth daily * METOPROLOL TARTRATE 25 MG TAB* Take 1 tablet by mouth every * COLACE 2-IN-1 ORAL Take by mouth. ACETAMINOPHEN 500 MG TABLET Take 2 tablets by mouth every* TAMSULOSIN 0.4 MG CAPSULE Take 1 capsule by mouth once * Patient taking differently: Take 0.4 mg by mouth twice da* ASPIRIN 81 MG TABLET,DELAYED * Take 2 tablets by mouth once * SULFACETAMIDE SODIUM 9.8 %-HARRIS* Apply thin film to affected a * Problem List As Of Date 10/24/2019 Noted Resolved Dyspnea on exertion [R06.00] Dyslipidemia [E78.5] More... HTN (hypertension) [I10] More... Former smoker, stopped smoking in distant past * HARLEY on CPAP [G47.33, Z99.89] More... Abnormal PFTs (pulmonary function tests) [R94.2]12/27/2014 Rosacea [L71.9] Chest pain [R07.9] 06/01/2019 06/02/2019 More... Chest pain [R07.9] 06/05/2019 06/11/2019 CAD (coronary artery disease) [I25.10] 06/05/2019 S/P CABG x 3 [Z95.1] 06/22/2019 Glucose intolerance [E74.39] 06/22/2019 Other instructions from your clinician: For rash purchase Lotrisone cream over the counter. Encounter Status:Closed by BELLA SANTOS MD on 10/25/19 progress on 2019-09 PROGRESS HNO ID: [id number] Normal 10-22-2019 [facility] Author: Theron Carver ([id number]) Service: ? Author Type: Physician Type: Progress Notes Filed: 10/22/2019 10:34 AM Note Text: Theron Delong MD Interventional Cardiology [facility] [address] Chief Complaint Patient presents with: Establish Care: transfer care HISTORY OF PRESENT ILLNESS: Mr. 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 patient had three-vessel bypass surgery MOHR to the LAD vein graft to th e circumflex and vein graft to the right coronary artery he's been doing well since surgery denying any shortness of breath or anginaon her symp toms of congestive heart failure On appropriate medications Lipid profile is optimal excepts HDL is low Patient hemodynamically blood pressure heart rate within nor mal range He doesn't feel that his heart is pounding when he started e xercising its recovered very quickly no palpitation Cardiac Risk Factors age (male over 45, female over 55), hyperlipidemia, history of smoking, hypertension, family history of CAD PAST MEDICAL HISTORY Diagnosis Date - Dyslipidemia - Dyspnea on exertion - Former smoker, stopped smoking in distant past - HTN (hypertension) - Kidney stones - HARLEY on CPAP - Rosacea PAST SURGICAL HISTORY Procedure Laterality Date - COLONOSCOP W/ OR W/O [facility] SPEC 02/15/2019 Colonoscopy - COLONOSCOPY 2006 - HERNIA REPAIR HX childhood and 2007 x3 - PAST SURGICAL HISTORY OF lithotripsy, multiple - PAST SURGICAL HISTORY OF laser prostate - TONSILLECTOMY HX FAMILY HISTORY Problem Relation Age of Onset - other (No CAD) Father - Cancer Mother , lung - Cancer Brother thyroid Social History Tobacco Use - Smoking status: Former Smoker Packs/day: 1.00 Years: 7.00 Pack years: 7.00 Types: Cigarettes Last attempt to quit: 12/27/1976 Years since quittin.8 - Smokeless tobacco: Never Used - Tobacco comment: on and off Substance Use Topics - Alcohol use: Yes Frequency: 2-4 times a month Drinks per session: 1 or 2 Binge frequency: Never Comment: occasional - Drug use: No ALLERGIES No Known Allergies Medications: Current Outpatient Medications Medication Sig Dispense Refill - cimetidine (TAGAMET) 400 mg tablet Take 400 mg by mouth on ce daily. - atorvastatin (LIPITOR) 40 mg tablet Take 1 tablet by mouth daily at bedtime. 90 tablet 3 - metoprolol tartrate, short acting, (LOPRESSOR) 25 mg table t Take 1 tablet by mouth every 12 hours. 180 tablet 3 - sennosides/docusate sodium (COLACE 2-IN-1 ORAL) Take by [facility]. - acetaminophen (TYLENOL) 500 mg tablet Take 2 tablets by [facility] every 6 hours. - tamsulosin ER (FLOMAX) 0.4 mg cap Take 1 capsule by mouth once daily. (Patient taking differently: Take 0.4 mg by mouth twice bridgette y. ) 30 capsule 0 - aspirin, enteric coated (ASPIRIN, ENTERIC COATED) 81 mg EC tablet Take 2 tablets by mouth once daily. - sulfacetamide sodium-sulfur 9.8-4.8 % lotn Apply thin film to affected area 1 times daily. No current facility-administered medications for this visit. Review of Systems Constitutional: Negative for chills, diaphoresis, fever, mal aise/fatigue and weight loss. HENT: Negative for congestion, ear discharge, ear pain, hear ing loss, nosebleeds, sinus pain, sore throat and tinnitus. Eyes: Negative for blurred vision, double vision, photophobi a, pain, discharge and redness. Respiratory: Negative for cough, hemoptysis, sputum producti on, shortness of breath, wheezing and stridor. Cardiovascular: Negative for chest pain, palpitations, ortho pnea, claudication, leg swelling and PND. Gastrointestinal: Negative for abdominal pain, blood in stoo l, constipation, diarrhea, heartburn, melena, nausea and vomiti ng. Genitourinary: Negative for dysuria, flank pain, frequency, hematuria and urgency. Musculoskeletal: Negative for back pain, falls, joint pain, myalgias and neck pain. Skin: Negative for itching and rash. Neurological: Negative for dizziness, tingling, tremors, sen tyson change, speech change, focal weakness, seizures, loss of consciousne ss, weakness and headaches. Endo/Heme/Allergies: Negative for environmental allergies an d polydipsia. Does not bruise/bleed easily. Psychiatric/Behavioral: Negative for depression, hallucinati ons, memory loss, substance abuse and suicidal ideas. The patient is not nervous/anxious and does not have insomnia. Physical Examination: Vitals:BP 130/70 Pulse 60 Resp 16 Wt 167 lb (75.8kg) BP w/Orthostatic Vitals Date and Time Orthostatic BP Orthostatic Pulse BP Pulse BP P osition BP Site BP Cuff Size 10/22/19929 -- -- 130/70 60 -- -- -- Peak Flow Date and Time PF Resp 10/22/19929 -- 16 Last 2 Encounter Wt Readings: Date: Wt: 10/22/2019 75.8 kg (167 lb) 07/18/2019 73.9 kg (163 lb) Physical Exam Constitutional: He is oriented to person, place, and time an d well-developed, well-nourished, and in no distress. No distr ess. HENT: Head: Normocephalic and atraumatic. Right Ear: External ear normal. Left Ear: External ear normal. Nose: Nose normal. Mouth/Throat: Oropharynx is clear and moist. Eyes: Pupils are equal, round, and reactive to light. Conjun ctivae and EOM are normal. Right eye exhibits no discharge. Left eye exhibi ts no discharge. Neck: Normal range of motion. Neck supple. No JVD present. N o tracheal deviation present. No thyromegaly present. Cardiovascular: Normal rate, regular rhythm, S1 normal, S2 n ormal, normal heart sounds and intact distal pulses. Exam reveals no barnes p, no S3, no S4 and no friction rub. No murmur heard. Pulmonary/Chest: Effort normal and breath sounds normal. No stridor. No respiratory distress. He has no wheezes. He has no rales. He exhibits no tenderness. Musculoskeletal: Normal range of motion. General: No tenderness, deformity or edema. Lymphadenopathy: He has no cervical adenopathy. Neurological: He is alert and oriented to person, place, and time. Skin: Skin is warm and dry. He is not diaphoretic. Psychiatric: Mood, memory, affect and judgment normal. Pertinent Labs: CBC: Hemoglobin (g/dL) Date Value 06/09/2019 11.8 Hematocrit (%) Date Value 06/09/2019 36.3 WBC (k/uL) Date Value 06/09/2019 8.69 Platelet Count (k/uL) Date Value 06/09/2019 162 BMP: Glucose (mg/dL) Date Value 10/19/2019 96 Potassium (mmol/L) Date Value 10/19/2019 4.6 Sodium (mmol/L) Date Value 10/19/2019 139 Chloride (mmol/L) Date Value 10/19/2019 102 CO2 (mmol/L) Date Value 10/19/2019 25 Creatinine (mg/dL) Date Value 10/19/2019 0.91 BUN (mg/dL) Date Value 10/19/2019 17 Anion Gap (mmol/L) Date Value 10/19/2019 12 Calcium (mg/dL) Date Value 10/19/2019 9.3 INR: Lipid Profile: Cholesterol, Total Date Value Ref Range Status 10/19/2019 151 <200 mg/dL Final Comment: <200 mg/dL, Desirable 200-239 mg/dL, Borderline high >239 mg/dL, High HDL Cholesterol Date Value Ref Range Status 10/19/2019 39 (L) >39 mg/dL Final Comment: 40-59 mg/dL, Acceptable >59 mg/dL, High: Negative risk factor for coronary heart dis ease <40 mg/dL, Low: Positive risk factor for coronary heart dise ase LDL Cholesterol Date Value Ref Range Status 10/19/2019 93 <100 mg/dL Final Comment: <100 mg/dL, Optimal 100-129 mg/dL, Near optimal/above optimal 130-159 mg/dL, Borderline high 160-189 mg/dL, High >189 mg/dL, Very high Secondary prevention optimal LDL Cholesterol levels are fco mmended to be < 70 mg/dL Triglyceride Date Value Ref Range Status 10/19/2019 97 <150 mg/dL Final Comment: <150 mg/dL, Normal 150-199 mg/dL, Borderline high 200-499 mg/dL, High >499 mg/dL, Very high Hemoglobin A1C: No results found for: HGBA1C TSH: No results found for: TSHREFL Assessment and Plan: 74 years old gentleman severe two-vessel query artery diseas e status post bypass surgery intervention thousand 20 on appropriate medic ation I discussed with him the advantage of Susan inhibitors in edwige tion to his current medicine risk and benefits alternative side effects was discussed extensively Recommending vitamin B6 2 g to elevate his HDL in addition t o exercise Yearly follow-up If he continued having fluttering in his heart which should actually perform at 2 weeks desirable patch monitor to rule out parox ysmal atrial fibrillation Follow up planning: Yearly follow up Electronically signed by Theron Delong MD on October 22, 2019 , 10:30 AM The above note was partially created using a dictation recog nition software. A reasonable attempt has been made to correct any errors. cnpn on 2019-10-22 CNPN Telephone (CARDWS) Normal 10-22-2019 [facility] JOCELYN LOAIZA ([id number]) 1945 M [place] Date Time Provider Department ([id number]) 10/22/19 THERON DELONG During your visit today, we recorded the following informati on about you: Peyton Carmichael Ma 10/22/2019 10:52 AM Signed Health and Wellness form partially completed. Given to Dr. Delong to complete and sign. Once signed, form to be faxed to [facility], [facility] [place] at [phone]. Peyton Carmichael Ma 10/22/2019 12:42 PM Signed Forms signed and faxed as requested. Peyton Carmichael Ma Allergies As of Date: 10/22/2019 (No Known Allergies) Date Reviewed: 10/22/2019 Reviewed by: Theron Delong - Fully Assessed Reason for Visit: Forms [913] Prescriptions as of 10/22/2019 Sig: CIMETIDINE 400 MG TABLET Take 400 mg by mouth once kathryn* ATORVASTATIN 40 MG TABLET Take 1 tablet by mouth daily * METOPROLOL TARTRATE 25 MG TAB* Take 1 tablet by mouth every * COLACE 2-IN-1 ORAL Take by mouth. ACETAMINOPHEN 500 MG TABLET Take 2 tablets by mouth every* TAMSULOSIN 0.4 MG CAPSULE Take 1 capsule by mouth once * Patient taking differently: Take 0.4 mg by mouth twice da* ASPIRIN 81 MG TABLET,DELAYED * Take 2 tablets by mouth once * SULFACETAMIDE SODIUM 9.8 %-AHRRIS* Apply thin film to affected a * Problem List As Of Date 10/22/2019 Noted Resolved Dyspnea on exertion [R06.00] Dyslipidemia [E78.5] More... HTN (hypertension) [I10] More... Former smoker, stopped smoking in distant past * HARLEY on CPAP [G47.33, Z99.89] More... Abnormal PFTs (pulmonary function tests) [R94.2]12/27/2014 Rosacea [L71.9] Chest pain [R07.9] 06/01/2019 06/02/2019 More... Chest pain [R07.9] 06/05/2019 06/11/2019 CAD (coronary artery disease) [I25.10] 06/05/2019 S/P CABG x 3 [Z95.1] 06/22/2019 Glucose intolerance [E74.39] 06/22/2019 Encounter Status:Closed by PEYTON CARMICHAEL MA on 10/22/19 cnov on 2019-10-22 CNOV Office Visit (ATTILA) Normal 10-22-[address] [place] [address] [facility] JOCELYN LOAIZA ([id number]) 1945 [facility] Date Time Provider Department ([id number]) 10/22/19 9:30 AM THERON DELONG During your visit today, we recorded the following informati on about you: Pulse Respiration Blood pressure Weight 60/minute 16/minute 130/70 75.8 kg Theron Delong MD 10/22/2019 10:34 AM Signed Theron Delong MD Interventional Cardiology [facility] [address] Chief Complaint Patient presents with: Establish Care: transfer care HISTORY OF PRESENT ILLNESS: Mr. 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 patient had three-vessel bypass surgery MOHR to the LAD vein graft to the circumflex and vein graft to the right coronary artery he's been doing well since surgery denying any shortness of breath or anginaon her sympto ms of congestive heart failure On appropriate medications Lipid profile is optimal excepts HDL is low Patient hemodynamically blood pressure heart rate within nor mal range He doesn't feel that his heart is pounding when he started e xercising its recovered very quickly no palpitation Cardiac Risk Factors age (male over 45, female over 55), hyperlipidemia, history of smoking, hypertension, family history of CAD PAST MEDICAL HISTORY Diagnosis Date - Dyslipidemia - Dyspnea on exertion - Former smoker, stopped smoking in distant past - HTN (hypertension) - Kidney stones - HARLEY on CPAP - Rosacea PAST SURGICAL HISTORY Procedure Laterality Date - COLONOSCOP W/ OR W/O [facility] SPEC 02/15/2019 Colonoscopy - COLONOSCOPY 2006 - HERNIA REPAIR HX childhood and 2007 x3 - PAST SURGICAL HISTORY OF lithotripsy, multiple - PAST SURGICAL HISTORY OF laser prostate - TONSILLECTOMY HX FAMILY HISTORY Problem Relation Age of Onset - other (No CAD) Father - Cancer Mother , lung - Cancer Brother thyroid Social History Tobacco Use - Smoking status: Former Smoker Packs/day: 1.00 Years: 7.00 Pack years: 7.00 Types: Cigarettes Last attempt to quit: 12/27/1976 Years since quittin.8 - Smokeless tobacco: Never Used - Tobacco comment: on and off Substance Use Topics - Alcohol use: Yes Frequency: 2-4 times a month Drinks per session: 1 or 2 Binge frequency: Never Comment: occasional - Drug use: No ALLERGIES No Known Allergies Medications: Current Outpatient Medications Medication Sig Dispense Refill - cimetidine (TAGAMET) 400 mg tablet Take 400 mg by mouth on ce daily. - atorvastatin (LIPITOR) 40 mg tablet Ta ke 1 tablet by mouth daily at bedtime. 90 tablet 3 - metoprolol tartrate, short acting, (LO PRESSOR) 25 mg tablet Take 1 tablet by mouth every 12 hours. 180 tablet 3 - sennosides/docusate sodium (COLACE 2-IN-1 ORAL) Take by [facility]. - acetaminophen (TYLENOL) 500 mg tablet Take 2 tablets by mouth every 6 hours. - tamsulosin ER (FLOMAX) 0.4 mg cap Take 1 capsule by mouth once daily. (Patient taking differently: Take 0.4 mg by mouth twice bridgette y. ) 30 capsule 0 - aspirin, enteric coated (ASPIRIN, ENTERIC COATED) 81 mg EC tablet Take 2 tablets by mouth once daily. - sulfacetamide sodium-sulfu r 9.8-4.8 % lotn Apply thin film to affected area 1 times daily. No current facility-administered medications for this visit. Review of Systems Constitutional: Negative for chills, diaphoresis, feve r, malaise/fatigue and weight loss. HENT: Negative for congestion, ear discharge, ear pain, hear ing loss, nosebleeds, sinus pain, sore throat and tinnitus. Eyes: Negative for blurred vision, doubl e vision, photophobia, pain, discharge and redness. Respiratory: Negative for cough, hemoptysis, sputum pr oduction, shortness of breath, wheezing and stridor. Cardiovascular: Negative for chest pain, palpitations, orthopnea, claudication, leg swelling and PND. Gastrointestinal: Negative for abdominal pain, blood i n stool, constipation, diarrhea, heartburn, melena, nausea and vomiting. Genitourinary: Negative for dysuria, flank pain, frequency, hematuria and urgency. Musculoskeletal: Negative for back pain, falls, joint pain, myalgias and neck pain. Skin: Negative for itching and rash. Neurological: Negative for d izziness, tingling, tremors, sensory change, speech change, focal weakness, seizures, loss of consciousness, wea kness and headaches. Endo/Heme/Allergies: Negative for enviro nmental allergies and polydipsia. Does not bruise/bleed easily. Psychiatric/Behavioral: Negative for depression, hallucinations, memory loss, substance abuse and suicidal ideas. The patient is not nervous/anxious and does not have insomnia. Physical Examination: Vitals:BP 130/70 Pulse 60 Resp 16 Wt 167 lb (75.8kg) BP w/Orthostatic Vitals Date and Time Orthostatic BP Orthostatic Pulse BP Pulse BP Position BP Site BP Cuff Size 10/22/19929 -- -- 130/70 60 -- -- -- Peak Flow Date and Time PF Resp 10/22/19929 -- 16 Last 2 Encounter Wt Readings: Date: Wt: 10/22/2019 75.8 kg (167 lb) 07/18/2019 73.9 kg (163 lb) Physical Exam Constitutional: He is oriented to person, place, and time and well-developed, well-nourished, and in no distress. No distress. HENT: Head: Normocephalic and atraumatic. Right Ear: External ear normal. Left Ear: External ear normal. Nose: Nose normal. Mouth/Throat: Oropharynx is clear and moist. Eyes: Pupils are equal, round, and react neal to light. Conjunctivae and EOM are normal. Right eye exhibits no discharge. Left eye exhibits n o discharge. Neck: Normal range of motion. Neck supple. No JVD present. N o tracheal deviation present. No thyromegaly present. Cardiovascular: Normal rate, regular rhythm, S1 normal, S2 normal, normal heart sounds and intact distal pulses. Exam reveals no barnes p, no S3, no S4 and no friction rub. No murmur heard. Pulmonary/Chest: Effort normal and breath sounds normal. No stridor. No respiratory distress. He has no wheezes. He has no rales. He exhibits no tenderness. Musculoskeletal: Normal range of motion. General: No tenderness, deformity or edema. Lymphadenopathy: He has no cervical adenopathy. Neurological: He is alert and oriented to person, place, and time. Skin: Skin is warm and dry. He is not diaphoretic. Psychiatric: Mood, memory, affect and judgment normal. Pertinent Labs: CBC: Hemoglobin (g/dL) Date Value 06/09/2019 11.8 Hematocrit (%) Date Value 06/09/2019 36.3 WBC (k/uL) Date Value 06/09/2019 8.69 Platelet Count (k/uL) Date Value 06/09/2019 162 BMP: Glucose (mg/dL) Date Value 10/19/2019 96 Potassium (mmol/L) Date Value 10/19/2019 4.6 Sodium (mmol/L) Date Value 10/19/2019 139 Chloride (mmol/L) Date Value 10/19/2019 102 CO2 (mmol/L) Date Value 10/19/2019 25 Creatinine (mg/dL) Date Value 10/19/2019 0.91 BUN (mg/dL) Date Value 10/19/2019 17 Anion Gap (mmol/L) Date Value 10/19/2019 12 Calcium (mg/dL) Date Value 10/19/2019 9.3 INR: Lipid Profile: Cholesterol, Total Date Value Ref Range Status 10/19/2019 151 <200 mg/dL Final Comment: <200 mg/dL, Desirable 200-239 mg/dL, Borderline high >239 mg/dL, High HDL Cholesterol Date Value Ref Range Status 10/19/2019 39 (L) >39 mg/dL Final Comment: 40-59 mg/dL, Acceptable >59 mg/dL, High: Negative risk factor for coronary heart dis ease <40 mg/dL, Low: Positive risk factor for coronary heart dise ase LDL Cholesterol Date Value Ref Range Status 10/19/2019 93 <100 mg/dL Final Comment: <100 mg/dL, Optimal 100-129 mg/dL, Near optimal/above optimal 130-159 mg/dL, Borderline high 160-189 mg/dL, High >189 mg/dL, Very high Secondary prevention optimal LDL Cholest bubba levels are recommended to be < 70 mg/dL Triglyceride Date Value Ref Range Status 10/19/2019 97 <150 mg/dL Final Comment: <150 mg/dL, Normal 150-199 mg/dL, Borderline high 200-499 mg/dL, High >499 mg/dL, Very high Hemoglobin A1C: No results found for: HGBA1C TSH: No results found for: TSHREFL Assessment and Plan: 74 years old gentleman severe two-vessel query artery diseas e status post bypass surgery intervention thousand 20 on appropriate medic ation I discussed with him the adv antage of Susan inhibitors in addition to his current medicine risk and benefits alternative side effe cts was discussed extensively Recommending vitamin B6 2 g to elevate his HDL in addition t o exercise Yearly follow-up If he continued having flutt ering in his heart which should actually perform at 2 weeks desirable patch monitor to rule out paroxysmal atria l fibrillation Follow up planning: Yearly follow up Electronically signed by Theron Delong MD on October 22, 2019 , 10:30 AM The above note was partially created usi [employer] a dictation recognition software. A reasonable attempt has been made to correct any errors. Referring Provider: BELLA SANTOS [[id number]] Allergies As of Date: 10/22/2019 (No Known Allergies) Date Reviewed: 10/22/2019 Reviewed by: Theron Delong - Fully Assessed Reason for Visit: Establish Care [42] Cmt: transfer care Visit Diagnosis:Coronary artery disease involving coronary b ypass graft of nez perce heart without angina pectoris [I25.810] Prescriptions as of 10/22/2019 Sig: CIMETIDINE 400 MG TABLET Take 400 mg by mouth once kathryn* ATORVASTATIN 40 MG TABLET Take 1 tablet by mouth daily * METOPROLOL TARTRATE 25 MG TAB* Take 1 tablet by mouth every * COLACE 2-IN-1 ORAL Take by mouth. ACETAMINOPHEN 500 MG TABLET Take 2 tablets by mouth every* TAMSULOSIN 0.4 MG CAPSULE Take 1 capsule by mouth once * Patient taking differently: Take 0.4 mg by mouth twice da* ASPIRIN 81 MG TABLET,DELAYED * Take 2 tablets by mouth once * SULFACETAMIDE SODIUM 9.8 %-HARRIS* Apply thin film to affected a * Problem List As Of Date 10/22/2019 Noted Resolved Dyspnea on exertion [R06.00] Dyslipidemia [E78.5] More... HTN (hypertension) [I10] More... Former smoker, stopped smoking in distant past * HARLEY on CPAP [G47.33, Z99.89] More... Abnormal PFTs (pulmonary function tests) [R94.2]12/27/2014 Rosacea [L71.9] Chest pain [R07.9] 06/01/2019 06/02/2019 More... Chest pain [R07.9] 06/05/2019 06/11/2019 CAD (coronary artery disease) [I25.10] 06/05/2019 S/P CABG x 3 [Z95.1] 06/22/2019 Glucose intolerance [E74.39] 06/22/2019 Disposition: Return in about 1 year (around 10/21/2020). Follow-up and Disposition History Recorded Letter Text Encounter Status:Closed by THERON DELONG MD on 10/22/19 vitamin d 25 hydroxy on 2019-10-19 Vitamin D 25 Hydroxy 25.7 31.0-80.0 ng/mL Low 0 [facility] ([id number]) Comment: Result Comment: Classificati on of 25 OH Vitamin D status: Insufficiency/Moderate Defic iency: < or = 30 ng/mL Sufficiency/Optimal Levels: 31 to 80 ng/mL Toxicity: > 100 ng/mL Test performed by chemilumin escent immunoassay. Performed By: #### CMP, LIPB , VITD ####[facility] [id number] [place] [address] [phone] lipid panel, basic on 2019-10-19 Cholesterol [Mass/Vol] 151 <200 mg/dL Normal 020 [facility] ([id number]) Comment: Result Comment: <200 mg/dL, Desirable 200-239 mg/dL, Borderline hi gh >239 mg/dL, High Performed By: #### CMP, LIPB , VITD ####[place] [address] [phone] Cholesterol in HDL [Mass/Vol] 39 >39 mg/dL Low 10-19-2019 [facility] ([id number]) Comment: Result Comment: 40-59 mg/dL, Acceptable >59 mg/dL, High: Negative ri sk factor for coronary heart disease <40 mg/dL, Low: Positive ris k factor for coronary heart disease Performed By: #### CMP, LIPB , VITD ####[place] [address] [phone] Cholesterol in LDL 93 <100 mg/dL Normal 10-19-2019 [facility] [Mass/Vol] [place] ([id number]) Comment: Result Comment: <100 mg/dL, Optimal 100-129 mg/dL, Near optimal/ above optimal 130-159 mg/dL, Borderline hi gh 160-189 mg/dL, High >189 mg/dL, Very high Secondary prevention optimal LDL Cholesterol levels are recommended to be < 70 mg/dL Performed By: #### CMP, LIPB , VITD ####[place] [address] [phone] Fasting Time 12 hrs Normal 10-19-2019 [facility] ([id number]) Comment: Performed By: #### CMP, LIPB , VITD ####[place] [address] [phone] LDL:HDL Ratio 2.38 <2.54 Normal 10-19-2019 [facility] ([id number]) Comment: Result Comment: Reference: 1. National Cholesterol Educ ation Program ATP III Guideline At-A-Glance Quick Desk Reference: National Heart, Lung, and Blood [place]. National Institutes of Health. 2001: NIH Publication No. 01-3305. 2. An International Atherosc lerosis Society position paper: global recommendations for the management of dyslipidemia: executive summary, Atherosclerosis. 2014: 232(2):410-413. Performed By: #### CMP, LIPB , VITD ####[place] [address] [phone] Non HDL Cholesterol 112 <130 mg/dL Normal 10-19-2019 [facility] (11821) Comment: Result Comment: <130 mg/dL, Optimal 130-159 mg/dL, Near optimal/ above optimal 160-189 mg/dL, Borderline hi gh 190-219 mg/dL, High >219 mg/dL, Very high Secondary prevention optimal non HDL Cholesterol levels are recommended to be < 100 mg/dL Performed By: #### CMP, LIPB , VITD ####[address] [place] [address] [phone] TC:HDL Ratio 3.87 <5.10 Normal 10-19-2019 [facility] (78030) Comment: Performed By: #### CMP, LIPB , VITD ####[address] [place] [address] [phone] Triglyceride [Mass/Vol] 97 <150 mg/dL Normal 2019 [facility] (82122) Comment: Result Comment: <150 mg/dL, Normal 150-199 mg/dL, Borderline hi gh 200-499 mg/dL, High >499 mg/dL, Very high Performed By: #### CMP, LIPB , VITD ####[address] [place] [address] [phone] VLDL Cholesterol 19 <30 mg/dL Normal 10-19-2019 [facility] (32951) Comment: Performed By: #### CMP, LIPB , VITD ####[address] [place] [address] [phone] comp metabolic panel on 2019-10-19 Albumin [Mass/Vol] 4.1 3.9-4.9 g/dL Normal 10-19-2019 [facility] (66756) Comment: Performed By: #### CMP, LIPB , VITD ####[place] [address] [address] [place] [address] ALP [Catalytic activity/Vol] 58 38-113 U/L Normal 0 10-19-2019 [facility] (82508) Comment: Performed By: #### CMP, LIPB , VITD ####[place] [address] [address] [place] [address] ALT [Catalytic activity/Vol] 15 10-54 U/L Normal 0 10-19-2019 [facility] (33150) Comment: Performed By: #### CMP, LIPB , VITD ####[place] [address] [address] [place] [address] Anion gap [Moles/Vol] 12 9-18 mmol/L Normal 10-19-19 [facility] (26702) Comment: Performed By: #### CMP, LIPB , VITD ####[place] [address] [address] [address] AST [Catalytic activity/Vol] 24 14-40 U/L Normal 0 10-19-2019 [facility] (34570) Comment: Performed By: #### CMP, LIPB , VITD ####[place] [address] [address] [address] Bilirubin [Mass/Vol] 0.4 0.2-1.3 mg/dL Normal 0 [facility] (95633) Comment: Performed By: #### CMP, LIPB , VITD ####[place] [address] [address] [place] [address] Calcium [Mass/Vol] 9.3 8.5-10.2 mg/dL Normal 10-19-2019 [facility] (53973) Comment: Performed By: #### CMP, LIPB , VITD ####[place] [address] [address] [place] [address] [phone] Chloride [Moles/Vol] 102 97-105 mmol/L Normal 0 [facility] (24930) Comment: Performed By: #### CMP, LIPB , VITD ####[facility] [address] [place] [address] [phone] CO2 [Moles/Vol] 25 22-30 mmol/L Normal 10-19-2019 [facility] (60357) Comment: Performed By: #### CMP, LIPB , VITD ####[facility] [place] [address] Creatinine [Mass/Vol] 0.91 0.73-1.22 mg/dL Normal 10-19-19 20 [facility] (07977) Comment: Performed By: #### CMP, LIPB , VITD ####[place] [address] [address] [address] [phone] eGFR- Amer. >60 Normal 10-19-2019 [facility] (48345) Comment: Performed By: #### CMP, LIPB , VITD ####[place] [address] [address] [place] [address] [phone] GFR/1.73 sq M predicted >60 mL/min/{1.73_m2} Normal 10-19-2019 [facility] among non-blacks [facility] (35881) (S/P/Bld) [Vol rate/Area] Comment: Result Comment: eGFR (Estima ernie GFR) Units of measure: mL/min/1.73 meters squared eGFR is derived from the ree xpressed MDRD Study equation using the following parameters: serum creatinine, age, gender and race. The creatinine assay has been calibrated to be traceable to IDMS. An eGFR <60 mL/min/1.73m2 fo r >3 months is consistent with chronic kidney disease. Refer to KDOQI guidelines for clinical interpretation. In patients with unstable re nal function, e.g. those with acute kidney injury, the eGFR may not accurately reflect actual GFR. Performed By: #### CMP, LIPB , VITD ####[facility] [address] [place] [address] Glucose [Mass/Vol] 96 74-99 mg/dL Normal 10-19-2019 [facility] (21179) Comment: Result Comment: The [place] Diabetes Association (ADA) provides guidance for cutoff values for fasting glucose and random glucose. The ADA defines fasting as no caloric intake for at least 8 hours. Fas ting plasma glucose results between 100 to 125 mg/dL indicate increased risk for diabetes (prediabetes). Fasting plasma glucose resul ts greater than or equal to 126 mg/dL meet the criteria for diagnosis of diabetes. In the absence of unequivocal hyperglycemia, results should be confirmed by repeat testing. In a patient with classic s ymptoms of hyperglycemia or hyperglycemic crisis, random plasma glucose results greater than or equal to 200 mg/dL meet the criteria for diagnosis of diabetes. Reference: Standards of [facility] Care in Diabetes 2016, [place] Diabetes Association. Diabetes Care. 2016.39(Suppl 1). Performed By: #### CMP, LIPB , VITD ####[facility] [address] [place] [address] [phone] Potassium [Moles/Vol] 4.6 3.7-5.1 mmol/L Normal 10-19-19 [facility] (87595) Comment: Performed By: #### CMP, LIPB , VITD ####[facility] [address] [place] [address] [phone] Protein [Mass/Vol] 6.2 6.3-8.0 g/dL Low 10-19-2019 [facility] (24884) Comment: Performed By: #### CMP, LIPB , VITD ####[facility] [address] [address] Sodium [Moles/Vol] 139 136-144 mmol/L Normal 10-19-2019 [facility] (20934) Comment: Performed By: #### CMP, LIPB , VITD ####[facility] [address] [place] [address] [phone] Urea nitrogen [Mass/Vol] 17 9-24 mg/dL Normal 10-18 [facility] (46073) Comment: Performed By: #### CMP, LIPB , VITD ####[facility] [address] [place] [address] [phone] cnpn on 2019-10-18 CNPN Telephone (FAMPWS) Normal 10-18-2019 [facility] JOSSEJOCELYN ([id number]) 1945 M [place] Date Time Provider Department ([id number]) 10/18/19 [facility] your visit today, we recorded the following informati on about you: Bouchra Thompson RN 10/18/2019 9:20 AM Signed Patient has newer diagnosis of CAD and is inquir ing where his Vitamin D level is at? Is coming to lab tomorrow to have other labs drawn and asking PCP to order Vitamin D also. No need to call patient If lab ordered today. Thank you, Bouchra Thompson, TIMOTHY Shelton APRN.SUPERVISOR GRADING 10/18/2019 9:26 AM Signed Lab order for vitamin D filed. Magen Shelton APRN.EMA Walker MA 10/18/2019 9:43 AM Signed Lab ordered, no need to call pt. Jocelyn Walker MA Allergies As of Date: 10/18/2019 (No Known Allergies) Date Reviewed: 08/21/2019 Reviewed by: Manju Lewis DO - Fully Assessed Reason for Visit: Additional Labs [1657] Primary Visit Diagnosis:Essential hypertension [I10] Other Visit Diagnosis:Coronary artery disease involving jared ve coronary artery of nez perce heart without angina pectoris [I25.10] Order(s):VITAMIN D 25 HYDROXY [SQVITD] Order #: [id number] F UTURE Prescriptions as of 10/18/2019 Sig: ATORVASTATIN 40 MG TABLET Take 1 tablet by mouth daily * METOPROLOL TARTRATE 25 MG TAB* Take 1 tablet by mouth every * COLACE 2-IN-1 ORAL Take by mouth. ACETAMINOPHEN 500 MG TABLET Take 2 tablets by mouth every* TAMSULOSIN 0.4 MG CAPSULE Take 1 capsule by mouth once * Patient taking differently: Take 0.4 mg by mouth twice da* ASPIRIN 81 MG TABLET,DELAYED * Take 2 tablets by mouth once * SULFACETAMIDE SODIUM 9.8 %-HARRIS* Apply thin film to affected a * Problem List As Of Date 10/18/2019 Noted Resolved Dyspnea on exertion [R06.00] Dyslipidemia [E78.5] More... HTN (hypertension) [I10] More... Former smoker, stopped smoking in distant past * HARLEY on CPAP [G47.33, Z99.89] More... Abnormal PFTs (pulmonary function tests) [R94.2]12/27/2014 Rosacea [L71.9] Chest pain [R07.9] 06/01/2019 06/02/2019 More... Chest pain [R07.9] 06/05/2019 06/11/2019 CAD (coronary artery disease) [I25.10] 06/05/2019 S/P CABG x 3 [Z95.1] 06/22/2019 Glucose intolerance [E74.39] 06/22/2019 Encounter Status:Closed by JOCELYN WALKER MA on 10/18/19 progress on 2019-07 PROGRESS HNO ID: [id number] Normal 08-21-2019 [facility] Author: Manju Lewis, [place] ([id number]) Service: ? Author Type: Physician Type: Progress Notes Filed: 08/21/2019 2:36 PM Note Text: [facility] PHONE VISIT DATE August 21, 2019 PRIMARY CARE PHYSICIAN: Bella Santos MD [address] [place] [address] HISTORY OF PRESENT ILLNESS: Mr. Loaiza is a 73 year old male. The patient consented to phone follow-up. He was seen for a total of 15 minutes of inclusiv e time with out other apparent persons present. The patient returns for follow-up study history of coronary disease status post coronary bypas s grafting ?3 as well as hypertension and hyperlipidemia. He [facility] but only had 2 sessions due to the [place] outbreak. He has been ambulating at home with hiking. He denies chest discomfort, dyspnea, orthopnea, paroxysmal nocturnal dyspnea, palpitatio ns, near-syncope or syncope. PLAN AND RECOMMENDATIONS: The patient remained stable without symptoms that would sugg est angina or cardiac decompensation. He states he has had some difficulty with gastroesophageal reflux that he will begin treatment for. If the symptoms continue despite adequate treatment, he may need further ronnie luation for underlying ischemia/anginal equivalent. His blood pressures and cholesterol have been favorable. We have made no additions o r changes. Dietary and lifestyle modification were reemphasized to faci litate risk factor reduction. We will look forward to reevaluating him i n 6 months time. Review of Systems Constitutional: Negative for activity change, appetite wilson e, fatigue and unexpected weight change. HENT: Negative for ear pain and trouble swallowing. Eyes: Negative for pain and visual disturbance. Respiratory: Negative for chest tightness and shortness of b reath. Cardiovascular: Negative for chest pain, palpitations and le g swelling. Gastrointestinal: Negative for abdominal pain and blood in s tool. Endocrine: Negative for cold intolerance and heat intoleranc e. Genitourinary: Negative for dysuria, hematuria and scrotal s welling. Musculoskeletal: Negative for arthralgias and myalgias. Skin: Negative for pallor and rash. Allergic/Immunologic: Negative for immunocompromised state. Neurological: Negative for dizziness, syncope and light-head edness. Hematological: Negative for adenopathy. Does not bruise/blee d easily. Psychiatric/Behavioral: Negative for sleep disturbance. The patient is not nervous/anxious. PAST MEDICAL HISTORY Diagnosis Date - Dyslipidemia - Dyspnea on exertion - Former smoker, stopped smoking in distant past - HTN (hypertension) - Kidney stones - HARLEY on CPAP - Rosacea PAST SURGICAL HISTORY Procedure Laterality Date - COLONOSCOP W/ OR W/O [facility] SPEC 02/15/2019 Colonoscopy - COLONOSCOPY 2006 - HERNIA REPAIR HX childhood and 2007 x3 - PAST SURGICAL HISTORY OF lithotripsy, multiple - PAST SURGICAL HISTORY OF laser prostate - TONSILLECTOMY HX Social History Tobacco Use - Smoking status: Former Smoker Packs/day: 1.00 Years: 7.00 Pack years: 7.00 Types: Cigarettes Last attempt to quit: 12/27/1976 Years since quittin.6 - Smokeless tobacco: Never Used - Tobacco comment: on and off Substance Use Topics - Alcohol use: Yes Frequency: 2-4 times a month Drinks per session: 1 or 2 Binge frequency: Never Comment: occasional - Drug use: No FAMILY HISTORY Problem Relation Age of Onset - other (No CAD) Father - Cancer Mother , lung - Cancer Brother thyroid ALLERGIES No Known Allergies CURRENT MEDICATIONS: atorvastatin (LIPITOR) 40 mg tablet Take 1 tablet by mouth d aily at bedtime. metoprolol tartrate, short acting, (LOPRESSOR) 25 mg tablet Take 1 tablet by mouth every 12 hours. sennosides/docusate sodium (COLACE 2-IN-1 ORAL) Take by mout h. acetaminophen (TYLENOL) 500 mg tablet Take 2 tablets by mout h every 6 hours. tamsulosin ER (FLOMAX) 0.4 mg cap Take 1 capsule by mouth on ce daily. aspirin, enteric coated (ASPIRIN, ENTERIC COATED) 81 mg EC t ablet Take 2 tablets by mouth once daily. sulfacetamide sodium-sulfur 9.8-4.8 % lotn Apply thin film t o affected area 1 times daily. Manju Lewis DO, FACC, FACOI Clinical and Preventive Cardiology Department of Medicine and Division of Cardiology, [facility] Staff Purchasing Administrative Assistant, Jorje Samano Department o f Cardiovascular Medicine/Heart and Vascular [place], [facility] and clinic Clinical assistant federal public defender Profressor of Medicine, [facility] of [facility] ? [facility] Please note: This note has been produced using speech [employer] software and may contain errors related to that system including gram kasron, punctuation, spelling, words, gender and phrases that may be inappropriate. progress on 2019-06 PROGRESS HNO ID: [id number] Normal 07-24-2019 [facility] Author: Bella Santos [place] ([id number]) Service: ? Author Type: Physician Type: Progress Notes Filed: 07/24/2019 8:41 AM Note Text: This Team Access Model visit is a virtual encounter. It requ ired patient-provider interaction for the medical decision making as documented below. Chief Complaint Patient presents with: F/U 6 Month: HTN HPI This Team Access Model visit is a virtual encounter. It requ ired patient-provider interaction for the medical decision making as documented below. Patient was offered a virtual/telemedicine appointment in eu of an office visit due to recommendations to reduce patient exposu re to COVID-19. Patient is aware of limitations of performing the visit without a face to face visit in the office setting and agrees. Pt reports that overall he's doing well, has recovered from surgery. Notes some complications dealing with a UTI after surgery, this wa s taken care and he's doing well. Follows with Dr. Shaffer. HTN - Monitors BP at home, last BP was 116/60s. Now BP is be ing monitored at cardiac rehab. Currently taking Lopressor 25 mg 1 tab po every 12 hours. Lipids - Taking Lipitor 40 mg once daily. Active with exerci sing such as hiking. Notes he could work on his his snacking. Does note a sore throat and sniffles, relates this to allerg ies. Reports pain all the time and needing to use Tylenol to help ease hi s pain. Pt went to [facility] on on 06/01/2019 due to chest pain and di scharged on 06/02/2019 due to not being able to perform heart cath. He was cleared for d/c and was then re-admitted into [facility] from 06/05/2019- for CAD requiring CABG x 3, noting this was uneventful. He start ed cardiac rehab yesterday. Getting out hiking on his own for 45-55 min utes on his own. He's avoiding [place] at this present time. Following w carlos enrique [facility] and . Past medical history, appointments, medications, allergies klever morillo. Previous Medical History PAST MEDICAL HISTORY Diagnosis Date - Dyslipidemia - Dyspnea on exertion - Former smoker, stopped smoking in distant past - HTN (hypertension) - Kidney stones - HARLEY on CPAP - Rosacea Previous Surgical History PAST SURGICAL HISTORY Procedure Laterality Date - COLONOSCOP W/ OR W/O [facility] SPEC 02/15/2019 Colonoscopy - COLONOSCOPY 2006 - HERNIA REPAIR HX childhood and 2007 x3 - PAST SURGICAL HISTORY OF lithotripsy, multiple - PAST SURGICAL HISTORY OF laser prostate - TONSILLECTOMY HX Family History FAMILY HISTORY Problem Relation Age of Onset - other (No CAD) Father - Cancer Mother , lung - Cancer Brother thyroid Patient Allergies ALLERGIES No Known Allergies Current Medications Current Outpatient Medications on File Prior to Visit Medication Sig - atorvastatin (LIPITOR) 40 mg tablet Take 1 tablet by mouth daily at bedtime. - metoprolol tartrate, short acting, (LOPRESSOR) 25 mg table t Take 1 tablet by mouth every 12 hours. - sennosides/docusate sodium (COLACE 2-IN-1 ORAL) Take by [facility]. - acetaminophen (TYLENOL) 500 mg tablet Take 2 tablets by [facility] every 6 hours. - tamsulosin ER (FLOMAX) 0.4 mg cap Take 1 capsule by mouth once daily. (Patient taking differently: Take 0.4 mg by mouth twice bridgette y. ) - aspirin, enteric coated (ASPIRIN, ENTERIC COATED) 81 mg EC tablet Take 2 tablets by mouth once daily. - sulfacetamide sodium-sulfur 9.8-4.8 % lotn Apply thin film to affected area 1 times daily. - magnesium oxide (MAG-OX) 400 mg (241.3 mg magnesium) table t Take 1 tablet by mouth twice daily. - MULTIVITAMIN-FERROUS FUMARATE-FOLIC ACID 18 MG-400 MCG TAB LET Take 1 tablet by mouth once daily. - potassium chloride ER (K-DUR, KLOR-CON) 20 mEq tablet Take 1 tablet by mouth once daily. - furosemide (LASIX) 20 mg tablet Take 1 tablet by mouth onc e daily. - ondansetron (ZOFRAN) 4 mg tablet Take 1 tablet by mouth ev giovanni 8 hours as needed for Nausea/Vomiting. (Patient not taking: Reported on 07/18/2019 ) No current facility-administered medications on file prior t o visit. Social History Social History Tobacco Use - Smoking status: Former Smoker Packs/day: 1.00 Years: 7.00 Pack years: 7.00 Types: Cigarettes Last attempt to quit: 12/27/1976 Years since quittin.6 - Smokeless tobacco: Never Used - Tobacco comment: on and off Substance Use Topics - Alcohol use: Yes Frequency: 2-4 times a month Drinks per session: 1 or 2 Binge frequency: Never Comment: occasional - Drug use: No EXAM: There were no vitals taken for this visit. Health Maintenance List BP CONTROLLED (<130/80) due on 1964 HEPATITIS C SCREENING due on 1990 SHINGRIX VACCINE(1 of 2) due on 1996 ADVANCE DIRECTIVE DISCUSSION due on 09/08/2011 ANNUAL PCP TEAM CHRONIC DISEASE VISIT due on 04/27/2020 LDL CHOLESTEROL due on 06/02/2020 DIABETES SCREEN due on 06/09/2022 COLORECTAL CANCER SCREENING,SEE MODIFIER due on 02/16/2024 LIPID SCREEN due on 06/02/2024 DTAP,TDAP,TD(2 - Td) due on 02/07/2027 ADULT PREVNAR-13 Completed PNEUMOVAX AGE 65 AND OVER WITH 5YR LOOKBACK Completed INFLUENZA Completed Data reviewed Epic ASSESSMENT/PLAN: 1. Essential hypertension - ICD9: 401.9, ICD10: I10 (primary diagnosis) - good control - cont checking at home and at cardiac rehab. Update office if any changes. - check labs in 3 mo - COMP METABOLIC PANEL 2. Dyslipidemia - ICD9: 272.4, ICD10: E78.5 - Check in 3 mo - LIPID PANEL BASIC 3. PND (post-nasal drip) - ICD9: 784.91, ICD10: R09.82 - allergy related 4. Sore throat - ICD9: 462, ICD10: J02.9 - Consult [facility] - Due to chronic soreness 5. S/P CABG x 3 - ICD9: V45.81, ICD10: Z95.1 - Stable doing well, continue cardiac rehab. 6. CAD Stable Follow with Cardiology Continue Cardiac Rehab 3 mo f/u with labs I agree with the Chief Complaint, ROS, and Past Histories in dependently gathered by the clinical computer support analyst and the remaining scr ibed note accurately describes my personal service to the patient. Bella Santos MD The documentation for this note was completed by Jocelyn ernst MA acting as scribe for Bella Santos MD. July 24, 2019 8:31 AM. Jocelyn Walker MA tsh on 2019-07-20 TSH Qn 1.810 0.270-4.200 uU/mL Normal 07-20-2019 [facility] ([id number]) Comment: Performed By: #### TSH ####[facility] [address] [place], [place] [phone] progress on 2019-06 PROGRESS HNO ID: [id number] Normal 07-19-2019 [facility] Author: Christiano Tapia ([id number]) Service: ? Author Type: Physician Type: Progress Notes Filed: 07/19/2019 7:07 PM Note Text: see dictated note Christiano Tapia MD cnpn on 2019-07-19 CNPN Telephone (FAMPWS) Normal 07-19-2019 [facility] STONEY LOAIZAEY ([id number]) 1945 [facility] Date Time Provider Department ([id number]) 07/19/19 BELLA SANTOS FAMPWS During your visit today, we recorded the following informati on about you: Michelle Pacehcokatherine JIMÉNEZ 07/19/2019 9:12 AM Signed Patient is to start cardiac rehab on Tuesday at [facility]. He has sore throat. No other symptoms. He states that PCP meggan reyna said it was just allergies. He was supposed to start cardiac rehab 2 weeks ago and he had sore throat at that time and was told to stay home by [facility]. He is just wor ried that he will be turned away again Tuesday . He is wanting to know if PCP brittany an provide him with a letter stating he is not sick , that it is just aller gies. Please return call to patient. Thanks Jocelyn Walker MA 07/19/2019 10:11 AM Signed Please review message below. Jocelyn Santos MD 07/19/2019 11:30 AM Signed Letter done MD Jocelyn Xiao MA 07/19/2019 11:43 AM Signed Called pt who is aware letter is complet ed due to mychart notification. States he can print this at home. If he has problems he will upda te office to come bead picker. Jocelyn Walker MA Allergies As of Date: 07/19/2019 (No Known Allergies) Date Reviewed: 07/18/2019 Reviewed by: Yue Morfin (Rn) TIMOTHY Yanez - Fully Assessed Reason for Visit: cardiac rehab [Other] Prescriptions as of 07/19/2019 Sig: ATORVASTATIN 40 MG TABLET Take 1 tablet by mouth daily * METOPROLOL TARTRATE 25 MG TAB* Take 1 tablet by mouth every * COLACE 2-IN-1 ORAL Take by mouth. ACETAMINOPHEN 500 MG TABLET Take 2 tablets by mouth every* TAMSULOSIN 0.4 MG CAPSULE Take 1 capsule by mouth once * Patient taking differently: Take 0.4 mg by mouth twice da* MAGNESIUM OXIDE 400 MG (241.3* Take 1 tablet by mouth twice * MULTIVITAMIN-FERROUS FUMARATE* Take 1 tablet by mouth once d * ASPIRIN 81 MG TABLET,DELAYED * Take 2 tablets by mouth once * POTASSIUM CHLORIDE ER 20 MEQ * Take 1 tablet by mouth once d * FUROSEMIDE 20 MG TABLET Take 1 tablet by mouth once d* ONDANSETRON HCL 4 MG TABLET Take 1 tablet by mouth every * Patient not taking: Reported on 07/18/2019 SULFACETAMIDE SODIUM 9.8 %-HARRIS* Apply thin film to affected a * Problem List As Of Date 07/19/2019 Noted Resolved Dyspnea on exertion [R06.09] Dyslipidemia [E78.5] More... HTN (hypertension) [I10] More... Former smoker, stopped smoking in distant past * HARLEY on CPAP [G47.33, Z99.89] More... Abnormal PFTs (pulmonary function tests) [R94.2]12/27/2014 Rosacea [L71.9] Chest pain [R07.9] 06/01/2019 06/02/2019 More... Chest pain [R07.9] 06/05/2019 06/11/2019 CAD (coronary artery disease) [I25.10] 06/05/2019 S/P CABG x 3 [Z95.1] 06/22/2019 Glucose intolerance [E74.39] 06/22/2019 Letter Text Encounter Status:Closed by JOCELYN WALKER MA on 07/19/19 progress on 2019-06 PROGRESS HNO ID: [id number] Normal 07-18-2019 [facility] Author: Christiano Carver ([id number]) Service: Electrophysiology Author Type: Physician Type: Progress Notes Filed: 07/19/2019 8:41 AM Note Text: [facility] NOTE DEPARTMENT OF CARDIOLOGY DENZEL NAME: JOCELYN LOAIZA CLINIC NO.: [id number] DATE OF SERVICE: 07/18/2019 Jocelyn Loaiza is a 73-year-old male who I saw in consultat ion at [facility] at the time of his open heart surg giovanni. He had 3-vessel CABG with Dr. Nj Turner and we saw him for post op atrial fibrillation. He had no history of this before. He was treat ed with amiodarone infusion, followed by oral amiodarone, and now is being seen by phone monitor visit to determine what to be done with the amiodarone. PAST MEDICAL HISTORY: See Epic notes. Dyslipidemia, CABG x3, coronary atherosclerosis, hypertension, obstructive sleep apnea, on C PAP, kidney stones, ex-smoker. MEDICATIONS: See Epic notes. Tylenol p.r.n., amiodarone 200 mg daily - has been discontinued, aspirin 160 mg daily, Lipitor 40 mg a t bedtime, Lasix 20 mg daily, Mag-Ox 400 mg twice daily, metoprolol tar trate 25 mg twice daily, multivitamins, potassium chloride 20 mEq daily, Colace as needed, and Flomax 0.4 mg twice daily. ALLERGIES: See Epic notes. No known allergies. PHYSICAL EXAMINATION: Not performed. It was a phone monitori ng visit. He is 5 feet 7 inches, 163 pounds. Blood pressure today was 144/83. Generally, it has been in the 120-130 over 80 range. Pulse i s 54. IMPRESSIONS: 1. Status post coronary artery bypass graft x3 in May 27. 2. Paroxysmal atrial fibrillation, resolved with amiodarone. 3. Hypertension, controlled. 4. Hyperlipidemia, treated. 5. Obstructive sleep apnea on CPAP. 6. Ex-smoker. The patient will continue on his Lopressor 25 mg twice daily. We will discont inue his amiodarone. He is going to start cardiac rehab next week and they will be able to watch his blood pressure and heart rate while exe rcising. He has a followup with Dr. Manju Lewis, louver door assembler at [facility], and he will make further decisions if he requires an y antiarrhythmic if atrial fib recurs. We will be happy to see him back in consultation if Dr. Lewis needs further opinion regarding th is plan. This was all done by telephone conversation with the patient at cell number [phone]. Follow up with cardiac EP at [facility] Gurinder garcia DICTATED BY: Christiano Tapia M.D. Brittany/Pennie JOB# [id number] cc: Archie Griffith D.O. cnptoutreach on CNPTOUTREACH Patient Outreach (FAMPST) Normal 0 07-10-2019 [facility] JOCELYN LOAIZA ([id number]) 1945 [facility] Date Time Provider Department ([id number]) 07/10/19 [facility] During your visit today, we recorded the following informati on about you: Allergies As of Date: 07/10/2019 (No Known Allergies) Date Reviewed: 07/04/2019 Reviewed by: Sari Abraham - Fully Assessed Visit Diagnosis:Medication management [Z79.899] Order(s):TSH BLD [SQTSH] Order #: [id number] FUTURE Prescriptions as of 07/10/2019 Sig: ATORVASTATIN 40 MG TABLET Take 1 tablet by mouth daily * METOPROLOL TARTRATE 25 MG TAB* Take 1 tablet by mouth every * COLACE 2-IN-1 ORAL Take by mouth. ACETAMINOPHEN 500 MG TABLET Take 2 tablets by mouth every* TAMSULOSIN 0.4 MG CAPSULE Take 1 capsule by mouth once * Patient taking differently: Take 0.4 mg by mouth twice da* ASPIRIN 81 MG TABLET,DELAYED * Take 2 tablets by mouth once * X AMIODARONE 200 MG TABLET Take 1 tablet by mouth once d* Patient not taking: Reported on 07/18/2019 X MAGNESIUM OXIDE 400 MG (241.3* Take 1 tablet by mouth twic e * X MULTIVITAMIN-FERROUS FUMARATE* Take 1 tablet by mouth once d* X POTASSIUM CHLORIDE ER 20 MEQ * Take 1 tablet by mouth once d* X FUROSEMIDE 20 MG TABLET Take 1 tablet by mouth once d* X ONDANSETRON HCL 4 MG TABLET Take 1 tablet by mouth every * Patient not taking: Reported on 07/18/2019 SULFACETAMIDE SODIUM 9.8 %-HARRIS* Apply thin film to affected a * Problem List As Of Date 07/10/2019 Noted Resolved Dyspnea on exertion [R06.09] Dyslipidemia [E78.5] More... HTN (hypertension) [I10] More... Former smoker, stopped smoking in distant past * HARLEY on CPAP [G47.33, Z99.89] More... Abnormal PFTs (pulmonary function tests) [R94.2]12/27/2014 Rosacea [L71.9] Chest pain [R07.9] 06/01/2019 06/02/2019 More... Chest pain [R07.9] 06/05/2019 06/11/2019 CAD (coronary artery disease) [I25.10] 06/05/2019 S/P CABG x 3 [Z95.1] 06/22/2019 Glucose intolerance [E74.39] 06/22/2019 Encounter Status:Closed by [employer], [employer] on 07/25/19 progress on 2019-06 PROGRESS HNO ID: [id number] Normal 07-04-2019 [facility] Author: Feliberto Escalante) Deniz Carver ([id number]) Service: ? Author Type: Physician Or Director Type: Progress Notes Filed: 07/04/2019 2:07 PM Note Text: This is a 73 year old male who presents to the clinic for 3 week post op visit s/p CABG x 3 on 06/06/19 Patient denies any complaints at this time Pt denies SOB, CP, Pain, Nausea, Vomiting and fever and chil ls Appetite good BM regular Sleeps well at night in bed Ambulating well at least 1 mile a day BP 144/72 Pulse (!) 58 Temp 36.3 ?C (97.4 ?F) Ht 170.2 cm (5' 7) Wt 76.4 kg (168 lb 6.4 oz) SpO2 97% BMI 26.38 kg/m? O2 stats on RA Pulse regular Sternum stable Incision well healed Heart RRR Lungs CTA, b/l at b/l base Abd + BS normoactive Exr: warm and no edema Bilateral SVG sites well healed CXR Pa and Lat good aeration bilat No b/l pleural effusion n oted No Bilateral atelecatasis noted. No Bilateral pneumothorax. A/P 1. Patient doing well s/p OHS 2. Discussed with patient medications: discontinue lasix, kd ur and magox 3. Discussed with patient pain meds may continue tylenol 4. Activity Discussed with patient to increase and continue ambulation at least bid. 5. Diet Pt encourage to increase p.o. Pt to start on Heart H ealthy diet. 6. Wound: No issues. 7. F/u with Purchasing Administrative Assistant 8. F/u with PCP 9. F/u prn 10. Patient advised to f/u with Dr. Tapia in regards to ami odarone Feliberto Guaman PA-C cnov on 2019-07-04 CNOV Office Visit (CTHORM) Normal 07-04-[address] [place] [address] [facility] JOCELYN LOAIZA ([id number]) 1945 [facility] Date Time Provider Department ([id number]) 07/04/19 1:40 PM FELIBERTO GUAMAN (ROBERTO CARLOS) CTHORM During your visit today, we recorded the following informati on about you: Temperature Pulse Blood pressure Weight 97.4 degrees 58/minute 144/72 76.4 kg Height 1.702 m Feliberto Guaman PA-C 07/04/2019 2:07 PM Signed This is a 73 year old male who presents to the clinic for 3 week post op visit s/p CABG x 3 on 06/06/19 Patient denies any complaints at this time Pt denies SOB, CP, Pain, Nausea, Vomiting and fever and chil ls Appetite good BM regular Sleeps well at night in bed Ambulating well at least 1 mile a day BP 144/72 Pulse (!) 58 Temp 36.3 ?C (97.4 ?F) Ht 170.2 cm (5' 7) Wt 76.4 kg (168 lb 6.4 oz) SpO2 97% BMI 26.38 kg/m ? O2 stats on RA Pulse regular Sternum stable Incision well healed Heart RRR Lungs CTA, b/l at b/l base Abd + BS normoactive Exr: warm and no edema Bilateral SVG sites well healed CXR Pa and Lat good aeration bilat No b/l pleural effusion n oted No Bilateral atelecatasis noted. No Bilateral pneumothorax. A/P 1. Patient doing well s/p OHS 2. Discussed with patient medications: discontinue lasix, kd ur and magox 3. Discussed with patient pain meds may continue tylenol 4. Activity Discussed with patient to increase and continue ambulation at least bid. 5. Diet Pt encourage to increase p.o. Pt to start on Heart H ealthy diet. 6. Wound: No issues. 7. F/u with Purchasing Administrative Assistant 8. F/u with PCP 9. F/u prn 10. Patient advised to f/u with Dr. Tapia in regards to ami odarone Feliberto Guaman PA-C Referring Provider: Rich DOUGHERTY [[id number]] Allergies As of Date: 07/04/2019 (No Known Allergies) Date Reviewed: 07/04/2019 Reviewed by: Sari Abraham - Fully Assessed Reason for Visit: Post Op [174] Cmt: 3 weeks Primary Visit Diagnosis:S/P CABG (coronary artery bypass gra ft) [Z95.1] Prescriptions as of 07/04/2019 Sig: ATORVASTATIN 40 MG TABLET Take 1 tablet by mouth daily * METOPROLOL TARTRATE 25 MG TAB* Take 1 tablet by mouth every * COLACE 2-IN-1 ORAL Take by mouth. ACETAMINOPHEN 500 MG TABLET Take 2 tablets by mouth every* AMIODARONE 200 MG TABLET Take 1 tablet by mouth once d* TAMSULOSIN 0.4 MG CAPSULE Take 1 capsule by mouth once * Patient taking differently: Take 0.4 mg by mouth twice da* ASPIRIN 81 MG TABLET,DELAYED * Take 2 tablets by mouth once * ONDANSETRON HCL 4 MG TABLET Take 1 tablet by mouth every * SULFACETAMIDE SODIUM 9.8 %-HARRIS* Apply thin film to affected a * MAGNESIUM OXIDE 400 MG (241.3* Take 1 tablet by mouth twice * MULTIVITAMIN-FERROUS FUMARATE* Take 1 tablet by mouth once d * POTASSIUM CHLORIDE ER 20 MEQ * Take 1 tablet by mouth once d * FUROSEMIDE 20 MG TABLET Take 1 tablet by mouth once d* Problem List As Of Date 07/04/2019 Noted Resolved Dyspnea on exertion [R06.09] Dyslipidemia [E78.5] More... HTN (hypertension) [I10] More... Former smoker, stopped smoking in distant past * HARLEY on CPAP [G47.33, Z99.89] More... Abnormal PFTs (pulmonary function tests) [R94.2]12/27/2014 Rosacea [L71.9] Chest pain [R07.9] 06/01/2019 06/02/2019 More... Chest pain [R07.9] 06/05/2019 06/11/2019 CAD (coronary artery disease) [I25.10] 06/05/2019 S/P CABG x 3 [Z95.1] 06/22/2019 Glucose intolerance [E74.39] 06/22/2019 Encounter Status:Closed by FELIBERTO GUAMAN on 07/04/19 xr chest 2v frontal/lat on 2019-07-03 XR CHEST 2V * * *Final Report* * * Normal 07-02 [facility] FRONTAL/LAT DATE OF EXAM: Jul 03 2019 11:27AM [facility] WRX [id number] - XR CHEST 2V FRONTAL/LAT / ([id number]) PROCEDURE REASON: multiple diagnoses * * * * Physician Interpretation * * * * EXAMINATION: CHEST RADIOGRAPH (2 VIEW FRONTAL and LATERAL) CLINICAL HISTORY: Coronary artery disease involving nez perce c oronary artery of nez perce heart without angina pectoris S/P CABG x 3 MQ: XC2_6 EXAM DATE/TIME: 07/03/2019 11:27 AM COMPARISON: Chest x-ray on 06/10/2019 RESULT: Lines, tubes, and devices: None. Lungs and pleura: No consolidation. No lung mass. No pleural effusion. No pneumothorax. Cardiomediastinal silhouette: The cardiac silhouette is with in normal limits, with tortuosity of the thoracic aorta. Bones and soft tissues: Status post median sternotomy. IMPRESSION: No acute radiographic abnormality. Anthropometrist: VIK Transcribe Date/Time: Jul 03 2019 11:53A Dictated by : NILAY LOPEZ MD This examination was interpreted and the report reviewed and electronically signed by: NILAY LOPEZ MD on Jul 03 2019 11:53AM EST [id number] progress on 2019-06 PROGRESS HNO ID: [id number] Normal 07-03-2019 [facility] Author: Alexandra (Rt) Cortez [facility] ([id number]) Service: ? Author Type: Mill Attendant Type: Progress Notes Filed: 07/03/2019 11:28 AM Note Text: Radiology Service Progress Note PATIENT NAME: Jocelyn Loaiza DATE OF SERVICE: July 03, 2019 TIME: 11:12 AM PATIENT IDENTITY VERIFICATION COMPLETED USING TWO (2) IDENTI FIERS: Name and Date of confirmed by patient verbally. PATIENT GENDER DATA: Male PATIENT RELEVANT IMPLANT DATA REVIEWED: Not Applicable RADIOLOGY DEPARTMENT: General X-ray: Exam(s) Completed: Ches t X-Ray PERIPHERAL IV DATA: Not applicable SIGNED BY: RT Sohan July 03, 2019 11:12 AM obsolete on 2019-06 OBSOLETE Refill (RICCO) Normal 06-25-2019 [facility] JOCELYN LOAIZA ([id number]) 1945 [facility] Time Provider Department () 06/25/19 MANJU LEWIS During your visit today, we recorded the following informati on about you: Allergies As of Date: 06/25/2019 (No Known Allergies) Date Reviewed: 06/22/2019 Reviewed by: DO Lela Caal Fully Assessed Reason for Visit: Refill Request [94] Order(s):atorvastatin (LIPITOR) 40 mg tabletTake 1 tablet by mouth daily at bedtime.Disp: 90 tabletRfl: 3 metoprolol tartrate, short acting, (LOPRESSOR) 25 mg tabletT kim 1 tablet by mouth every 12 hours.Disp: 180 tabletRfl: 3 Prescriptions as of 06/25/2019 Sig: ATORVASTATIN 40 MG TABLET Take 1 tablet by mouth daily * METOPROLOL TARTRATE 25 MG TAB* Take 1 tablet by mouth every * COLACE 2-IN-1 ORAL Take by mouth. ACETAMINOPHEN 500 MG TABLET Take 2 tablets by mouth every* AMIODARONE 200 MG TABLET Take 1 tablet by mouth once d* TAMSULOSIN 0.4 MG CAPSULE Take 1 capsule by mouth once * MAGNESIUM OXIDE 400 MG (241.3* Take 1 tablet by mouth twice * MULTIVITAMIN-FERROUS FUMARATE* Take 1 tablet by mouth once d * ASPIRIN 81 MG TABLET,DELAYED * Take 2 tablets by mouth once * POTASSIUM CHLORIDE ER 20 MEQ * Take 1 tablet by mouth once d * FUROSEMIDE 20 MG TABLET Take 1 tablet by mouth once d* ONDANSETRON HCL 4 MG TABLET Take 1 tablet by mouth every * SULFACETAMIDE SODIUM 9.8 %-HARRIS* Apply thin film to affected a * Problem List As Of Date 06/25/2019 Noted Resolved Dyspnea on exertion [R06.09] Dyslipidemia [E78.5] More... HTN (hypertension) [I10] More... Former smoker, stopped smoking in distant past * HARLEY on CPAP [G47.33, Z99.89] More... Abnormal PFTs (pulmonary function tests) [R94.2]12/27/2014 Rosacea [L71.9] Chest pain [R07.9] 06/01/2019 06/02/2019 More... Chest pain [R07.9] 06/05/2019 06/11/2019 CAD (coronary artery disease) [I25.10] 06/05/2019 S/P CABG x 3 [Z95.1] 06/22/2019 Glucose intolerance [E74.39] 06/22/2019 Prescriptions ordered this encounter Disp Refills Start End ATORVASTATIN 40 MG TABLET 90 t* 3 06/25/2019 Route: ORAL Sig: Take 1 tablet by mouth daily at bedtime. METOPROLOL TARTRATE 25 MG TABLET 180 * 3 06/25/2019 Route: ORAL Sig: Take 1 tablet by mouth every 12 hours. Medications Discontinued During This Encounter atorvastatin (LIPITOR) 40 mg tablet 30 t* 1 06/11/2019 06/25/19 20 Route: ORAL Sig: Take 1 tablet by mouth daily at bedtime. Disc: Reason for discontinue is not on file. metoprolol tartrate, short acting, (* 60 t* 1 06/11/20192019 Route: ORAL Sig: Take 1 tablet by mouth every 12 hours. Disc: Reason for discontinue is not on file. Encounter Status:Closed by MANJU LEWIS on 06/25/19 progress on 2019-05 PROGRESS HNO ID: [id number] Normal 06-22-2019 [facility] Author: Manju Lewis, DO [facility] ([id number]) Service: ? Author Type: Physician Type: Progress Notes Filed: 06/22/2019 4:54 PM Note Text: [facility] SECTION OF REGIONAL CARDIOLOGY [facility] OUTPATIENT VISIT DATE June 22, 2019 PRIMARY CARE PHYSICIAN: Bella Santos MD [address] [place] [address] HISTORY OF PRESENT ILLNESS: Mr. Loaiza is a 73 year old male. The patient returns for [facility]-up secondary recent diagnosis of coronary disease status post c oronary artery bypass grafting ?3. The anatomy of his bypasses is unknown. He however was known to have a 99% LAD and occluded collateralized left circumflex and RCA. He had preserved left ventricular systolic function . Symptoms of dyspnea were starting to occur leading to the diagnosis. He had postoperative atrial fibrillation for which he is on amiodar one for several weeks. He has additional history of hypertension and hyperlipidemia. He denies chest discomfort, dyspnea, orthopn ea, paroxysmal nocturnal dyspnea, obligations, near-syncope or s yncope. There is some discomfort in the area of his saphenous vein harvest site of the left thigh. It does not appear infected. PLAN AND RECOMMENDATIONS: The patient appears stable without symptoms of angina or car diac decompensation. We have asked him to place warm compresses o n his left file a couple times a day. He is due to be enrolled in cardi ac rehabilitation in the next few weeks which [place]. We will look forward to reevaluating him in 2 months t wen. At that time we would recommend drawing a lipid profile after recove ry. We would recommend stopping his amiodarone per electrophysiology fco mmendeds in the next 2-4 weeks. He is doing extremely well and is exerci sing walking up to a mile a day currently. Generalized dietary and lifest yle modification were emphasized to facilitate risk factor reduc tion. We have made no additions or changes to his medical regimen. Vitals: BP 140/80 (BP Site: Right Arm, BP Position: Sitting, BP Cuff Size: Regular Adult) Pulse 75 Ht 170.2 cm (5' 7.01) Wt 74.8 kg (165 lb 0.1 oz) SpO2 96% BMI 25.84 kg/m? Physical Exam Vitals signs and nursing note reviewed. Constitutional: General: He is not in acute distress. Appearance: He is well-developed. He is not diaphoretic. HENT: Head: Normocephalic and atraumatic. Right Ear: External ear normal. Left Ear: External ear normal. Nose: Nose normal. Eyes: General: No scleral icterus. Right eye: No discharge. Left eye: No discharge. Pupils: Pupils are equal, round, and reactive to light. Neck: Musculoskeletal: Neck supple. Thyroid: No thyromegaly. Vascular: No JVD. Cardiovascular: Rate and Rhythm: Normal rate and regular rhythm. Heart sounds: No murmur. No friction rub. No gallop. Pulmonary: Effort: Pulmonary effort is normal. No respiratory distress. Breath sounds: Normal breath sounds. No wheezing or rales. Abdominal: General: Bowel sounds are normal. Palpations: Abdomen is soft. Musculoskeletal: Normal range of motion. Skin: General: Skin is warm and dry. Coloration: Skin is not pale. Neurological: Mental Status: He is alert and oriented to person, place, an d time. Cranial Nerves: No cranial nerve deficit. Psychiatric: Mood and Affect: Mood is not anxious or depressed. Behavior: Behavior normal. Thought Content: Thought content normal. Judgment: Judgment normal. Review of Systems Constitutional: Negative for activity change, appetite wilson e, fatigue and unexpected weight change. HENT: Negative for ear pain and trouble swallowing. Eyes: Negative for pain and visual disturbance. Respiratory: Negative for chest tightness and shortness of b reath. Cardiovascular: Negative for chest pain, palpitations and le g swelling. Gastrointestinal: Negative for abdominal pain and blood in s tool. Endocrine: Negative for cold intolerance and heat intoleranc e. Genitourinary: Negative for dysuria, hematuria and scrotal s welling. Musculoskeletal: Negative for arthralgias and myalgias. Skin: Negative for pallor and rash. Allergic/Immunologic: Negative for immunocompromised state. Neurological: Negative for dizziness, syncope and light-head edness. Hematological: Negative for adenopathy. Does not bruise/blee d easily. Psychiatric/Behavioral: Negative for sleep disturbance. The patient is not nervous/anxious. PAST MEDICAL HISTORY Diagnosis Date - Dyslipidemia - Dyspnea on exertion - Former smoker, stopped smoking in distant past - HTN (hypertension) - Kidney stones - HARLEY on CPAP - Rosacea PAST SURGICAL HISTORY Procedure Laterality Date - COLONOSCOP W/ OR W/O [facility] SPEC 02/15/2019 Colonoscopy - COLONOSCOPY 2006 - HERNIA REPAIR HX childhood and 2007 x3 - PAST SURGICAL HISTORY OF lithotripsy, multiple - PAST SURGICAL HISTORY OF laser prostate - TONSILLECTOMY HX Social History Tobacco Use - Smoking status: Former Smoker Packs/day: 1.00 Years: 7.00 Pack years: 7.00 Types: Cigarettes Last attempt to quit: 12/27/1976 Years since quittin.5 - Smokeless tobacco: Never Used - Tobacco comment: on and off Substance Use Topics - Alcohol use: Yes Frequency: 2-4 times a month Drinks per session: 1 or 2 Binge frequency: Never Comment: occasional - Drug use: No FAMILY HISTORY Problem Relation Age of Onset - other (No CAD) Father - Cancer Mother , lung - Cancer Brother thyroid ALLERGIES No Known Allergies CURRENT MEDICATIONS: sennosides/docusate sodium (COLACE 2-IN-1 ORAL) Take by mout h. acetaminophen (TYLENOL) 500 mg tablet Take 2 tablets by mout h every 6 hours. amiodarone (PACERONE) 200 mg tablet Take 1 tablet by mouth o nce daily. atorvastatin (LIPITOR) 40 mg tablet Take 1 tablet by mouth d aily at bedtime. tamsulosin ER (FLOMAX) 0.4 mg cap Take 1 capsule by mouth on ce daily. metoprolol tartrate, short acting, (LOPRESSOR) 25 mg tablet Take 1 tablet by mouth every 12 hours. magnesium oxide (MAG-OX) 400 mg (241.3 mg magnesium) tablet Take 1 tablet by mouth twice daily. MULTIVITAMIN-FERROUS FUMARATE-FOLIC ACID 18 MG-400 MCG TABLE T Take 1 tablet by mouth once daily. aspirin, enteric coated (ASPIRIN, ENTERIC COATED) 81 mg EC t ablet Take 2 tablets by mouth once daily. potassium chloride ER (K-DUR, KLOR-CON) 20 mEq tablet Take 1 tablet by mouth once daily. furosemide (LASIX) 20 mg tablet Take 1 tablet by mouth once daily. ondansetron (ZOFRAN) 4 mg tablet Take 1 tablet by mouth ever y 8 hours as needed for Nausea/Vomiting. sulfacetamide sodium-sulfur 9.8-4.8 % lotn Apply thin film t o affected area 1 times daily. Manju Lewis DO, FACC, FACOI Clinical and Preventive Cardiology Department of Medicine and Division of Cardiology, [facility] [place] Staff Purchasing Administrative Assistant, Jorje Samano Department o f Cardiovascular Medicine/Heart and Vascular [place], [facility] Clinical assistant federal public defender Profressor of Medicine, [facility] ? [facility] Please note: This note has been produced using [employer] software and may contain errors related to that system including gram karson, punctuation, spelling, words, gender and phrases that may be inappropriate. cnov on 2019-06-22 CNOV Office Visit (RICCO) Normal 06-22-19 [address] [facility] JOCELYN LOAIZA ([id number]) 1945 M [facility] Date Time Provider Department ([id number]) 06/22/19 1:40 PM AMNJU LEWIS During your visit today, we recorded the following informati on about you: Pulse Blood pressure Weight Height 75/minute 140/80 74.8 kg 1.702 m Jacqueline Yasmin 06/22/2019 1:52 PM Signed Patient presents with: New Cardiac Patient: open heart surgery on 06/06/19 Manju Lewis DO, DO 06/22/2019 4:54 PM Signed [facility] SECTION OF [facility] OUTPATIENT VISIT DATE June 22, 2019 PRIMARY CARE PHYSICIAN: Bella Santos MD [address] [place] [address] HISTORY OF PRESENT ILLNESS: Mr. Loaiza is a 73 year old male. The patient returns for f [facility]ow-up secondary recent diagnosis of coronary disease status post c oronary artery bypass grafting ?3. The anatomy of his bypasses is unknown. He however was known to have a 99% LAD and occluded collateralized le ft circumflex and RCA. He had preserved left ventricular systolic funct ion. Symptoms of dyspnea were starting to occur leading to the diagnosis. He had postopera tive atrial fibrillation for which he is on amiodarone for several weeks . He has additional history of hypertension and hyperlipidemia. He de nies chest discomfort, dyspnea, orthopnea, paroxysmal nocturnal dyspnea , obligations, near-syncope or syncope. There is some d iscomfort in the area of his saphenous vein harvest site of the left thigh. It does not appear infe cted. PLAN AND RECOMMENDATIONS: The patient appears stable without symptoms of angina or car diac decompensation. We have asked him to place warm compresses on his left file a couple times a day. He is due to be enrolled in cardiac rehabilitation in the next few weeks which [place]. W rich will look forward to reevaluating him in 2 months time. At that time we would recommend drawing a lipid profile after recovery. We would recommend s topping his amiodarone per electrophysiology recommendeds in the next 2- 4 weeks. He is doing extremely well and is exercising walking up to a mile a day currently. Generalized dietary and lifestyle modification were em phasized to facilitate risk factor reduction. We have made no additions or changes to his medical regimen. Vitals: BP 140/80 (BP Site: Right Arm, BP Position: Sitting, BP Cuff Size: Regular Adult) Pulse 75 Ht 170.2 cm (5' 7.01) Wt 74 .8 kg (165 lb 0.1 oz) SpO2 96% BMI 25.84 kg/m? Physical Exam Vitals signs and nursing note reviewed. Constitutional: General: He is not in acute distress. Appearance: He is well-developed. He is not diaphoretic. HENT: Head: Normocephalic and atraumatic. Right Ear: External ear normal. Left Ear: External ear normal. Nose: Nose normal. Eyes: General: No scleral icterus. Right eye: No discharge. Left eye: No discharge. Pupils: Pupils are equal, round, and reactive to light. Neck: Musculoskeletal: Neck supple. Thyroid: No thyromegaly. Vascular: No JVD. Cardiovascular: Rate and Rhythm: Normal rate and regular rhythm. Heart sounds: No murmur. No friction rub. No gallop. Pulmonary: Effort: Pulmonary effort is normal. No respiratory distress. Breath sounds: Normal breath sounds. No wheezing or rales. Abdominal: General: Bowel sounds are normal. Palpations: Abdomen is soft. Musculoskeletal: Normal range of motion. Skin: General: Skin is warm and dry. Coloration: Skin is not pale. Neurological: Mental Status: He is alert and oriented to person, place, an d time. Cranial Nerves: No cranial nerve deficit. Psychiatric: Mood and Affect: Mood is not anxious or depressed. Behavior: Behavior normal. Thought Content: Thought content normal. Judgment: Judgment normal. Review of Systems Constitutional: Negative for activity change, appetite wilson e, fatigue and unexpected weight change. HENT: Negative for ear pain and trouble swallowing. Eyes: Negative for pain and visual disturbance. Respiratory: Negative for chest tightness and shortness of b reath. Cardiovascular: Negative for chest pain, palpitations and le g swelling. Gastrointestinal: Negative for abdominal pain and blood in s tool. Endocrine: Negative for cold intolerance and heat intoleranc e. Genitourinary: Negative for dysuria, hematuria and scrotal s welling. Musculoskeletal: Negative for arthralgias and myalgias. Skin: Negative for pallor and rash. Allergic/Immunologic: Negative for immunocompromised state. Neurological: Negative for dizziness, syncope and light-head edness. Hematological: Negative for adenopathy. Does not bruise/blee d easily. Psychiatric/Behavioral: Negative for sleep disturbance. The patient is not nervous/anxious. PAST MEDICAL HISTORY Diagnosis Date - Dyslipidemia - Dyspnea on exertion - Former smoker, stopped smoking in distant past - HTN (hypertension) - Kidney stones - HARLEY on CPAP - Rosacea PAST SURGICAL HISTORY Procedure Laterality Date - COLONOSCOP W/ OR W/O [facility] SPEC 02/15/2019 Colonoscopy - COLONOSCOPY 2006 - HERNIA REPAIR HX childhood and 2007 x3 - PAST SURGICAL HISTORY OF lithotripsy, multiple - PAST SURGICAL HISTORY OF laser prostate - TONSILLECTOMY HX Social History Tobacco Use - Smoking status: Former Smoker Packs/day: 1.00 Years: 7.00 Pack years: 7.00 Types: Cigarettes Last attempt to quit: 12/27/1976 Years since quittin.5 - Smokeless tobacco: Never Used - Tobacco comment: on and off Substance Use Topics - Alcohol use: Yes Frequency: 2-4 times a month Drinks per session: 1 or 2 Binge frequency: Never Comment: occasional - Drug use: No FAMILY HISTORY Problem Relation Age of Onset - other (No CAD) Father - Cancer Mother , lung - Cancer Brother thyroid ALLERGIES No Known Allergies CURRENT MEDICATIONS: sennosides/docusate sodium (COLACE 2-IN-1 ORAL) Take by mout h. acetaminophen (TYLENOL) 500 mg tablet Take 2 tablets b y mouth every 6 hours. amiodarone (PACERONE) 200 mg tablet Take 1 tablet by mouth o nce daily. atorvastatin (LIPITOR) 40 mg tablet Take 1 tablet by m outh daily at bedtime. tamsulosin ER (FLOMAX) 0.4 mg cap Take 1 capsule by mouth on ce daily. metoprolol tartrate, short acting, (LOPRESSOR) 25 mg t ablet Take 1 tablet by mouth every 12 hours. magnesium oxide (MAG-OX) 400 mg (241.3 mg magnesium) t ablet Take 1 tablet by mouth twice daily. MULTIVITAMIN-FERROUS FUMARATE-FOLIC ACID 18 MG-400 MCG TABLET Take 1 tablet by mouth once daily. aspirin, enteric coated (ASPIRIN, ENTERIC COATED) 81 mg EC t ablet Take 2 tablets by mouth once daily. potassium chloride ER (K-DUR, KLOR-CON) 20 mEq tablet Take 1 tablet by mouth once daily. furosemide (LASIX) 20 mg tablet Take 1 tablet by mouth once daily. ondansetron (ZOFRAN) 4 mg ta blet Take 1 tablet by mouth every 8 hours as needed for Nausea/Vomiting. sulfacetamide sodium-sulfur 9.8-4.8 % lotn Apply thin film to affected area 1 times daily. Manju Lewis DO, FACC, FACOI Clinical and Preventive Cardiology Department of Medicine and Division of Cardiology, [facility], [place] Staff Purchasing Administrative Assistant, Niranjan and Sari Samano Depart ment of Cardiovascular Medicine/Heart and Vascular [place], [facility] Clinical assistant federal public defender Profressor of Medicine, [facility] ? [facility] Please note: This note has been produced using speech recognition software and may contain errors related to that system including angel, punctuation, spelling, words, gender and phrases that may be inappropriat e. Referring Provider: MAGEN SHELTON ([facility]) [[id number]] Allergies As of Date: 06/22/2019 (No Known Allergies) Date Reviewed: 06/22/2019 Reviewed by: Manju Lewis DO - Fully Assessed Reason for Visit: New Cardiac Patient [[id number]] Cmt: open heart surgery on 0 Primary Visit Diagnosis:Coronary artery disease involving na tive coronary artery of nez perce heart without angina pectoris [I25.10] Other Visit Diagnoses:Essential hypertension [I10] Dyslipidemia [E78.5] S/P CABG x 3 [Z95.1] Order(s):CONSULT TO CARDIOLOGY [9004] Order #: [id number] : 1 CARDIAC REHAB II OUT ([place], [place]) [[id number]] Order #: [id number] Qty: 1 Prescriptions as of 06/22/2019 Sig: COLACE 2-IN-1 ORAL Take by mouth. ACETAMINOPHEN 500 MG TABLET Take 2 tablets by mouth every* AMIODARONE 200 MG TABLET Take 1 tablet by mouth once d* ATORVASTATIN 40 MG TABLET Take 1 tablet by mouth daily * TAMSULOSIN 0.4 MG CAPSULE Take 1 capsule by mouth once * METOPROLOL TARTRATE 25 MG TAB* Take 1 tablet by mouth every * MAGNESIUM OXIDE 400 MG (241.3* Take 1 tablet by mouth twice * MULTIVITAMIN-FERROUS FUMARATE* Take 1 tablet by mouth once d * ASPIRIN 81 MG TABLET,DELAYED * Take 2 tablets by mouth once * POTASSIUM CHLORIDE ER 20 MEQ * Take 1 tablet by mouth once d * FUROSEMIDE 20 MG TABLET Take 1 tablet by mouth once d* ONDANSETRON HCL 4 MG TABLET Take 1 tablet by mouth every * SULFACETAMIDE SODIUM 9.8 %-HARRIS* Apply thin film to affected a * Problem List As Of Date 06/22/2019 Noted Resolved Dyspnea on exertion [R06.09] Dyslipidemia [E78.5] More... HTN (hypertension) [I10] More... Former smoker, stopped smoking in distant past * HARLEY on CPAP [G47.33, Z99.89] More... Abnormal PFTs (pulmonary function tests) [R94.2]12/27/2014 Rosacea [L71.9] Chest pain [R07.9] 06/01/2019 06/02/2019 More... Chest pain [R07.9] 06/05/2019 06/11/2019 CAD (coronary artery disease) [I25.10] 06/05/2019 S/P CABG x 3 [Z95.1] 06/22/2019 Glucose intolerance [E74.39] 06/22/2019 Visit Notes: >> Jacqueline Hoffman Shell Jun 22, 2019 1:52 PM Status: Signed Patient presents with: New Cardiac Patient: open heart surgery on 06/06/19 Disposition: Return in about 2 months (around 08/21/2019), or if symptoms worsen or fail to improve, for Follow-up. Follow-up and Disposition History Recorded Letter Text Encounter Status:Closed by MANJU LEWIS on 06/22/19 progress on 2019-05 PROGRESS HNO ID: [id number] Normal 06-18-2019 [facility] Author: Kishore (Solange) Nawaf Young ([id number]) Service: ? Author Type: Physician Or Director Type: Progress Notes Filed: 06/19/2019 7:22 PM Note Text: This is a 73 year old male who presents to the clinic for 1 week follow up visit s/p CABG x 3 on 06/06/2019. Minimal sternal pain, L LE pain 3-5/10. Sleeping for 3-4 abbe rs at a time. No respiratory issues, using IS 4-5 times a day, taking walk s outside. Appetite returned to normal, moving bowels and urinating wit hout issue. Pt denies fever, chills, nausea, vomiting, chest pain, SOB, calf redness/pain/swelling, body aches. BP 130/66 (BP Site: Right Arm, BP Position: Sitting, BP Cuff Size: Regular Adult) Pulse (!) 59 Ht 170.2 cm (5' 7) Wt 74.6 kg (16 4 lb 6.4 oz) SpO2 97% BMI 25.75 kg/m? O2 stats on RA Pulse regula r General: Alert and oriented x 3, in no acute distress Sternum: Stable. Incision c/d/i and healing well, no sign of infection or dehiscence. Cardiovascular: RRR w/ systolic ejection murmur. No rub or g allop. Trace L LE pitting edema, No R LE edema Lungs: Bibasilar rales. No rhonchi, or wheeze. Abd: +BS, normoactive. Extremities: Warm, good capillary refill. L LE SVG incision sites c/d/i and healing well, no sign of infection or dehiscence. A/P 1. Discussed with patient medications: continue as prescribe d 2. Discussed with patient pain medications: continue prn 3. Wound: No issues 4. Discussed with patient to continue and increase ambulatio n 5. Pt encourage to increase PO intake and to begin heart hea lthy diet 6. F/u in 2 weeks w/ 2V CXR Kishore Foote PA-C cnov on 2019-06-18 CN[facility] Office Visit (CTHORM) Normal 06-18-[address] [place] [address] [facility] JOCELYN LOAIZA ([id number]) 1945 [facility] Date Time Provider Department ([id number]) 06/18/19 1:00 PM KISHORE FOOTE) CTHORM During your visit today, we recorded the following informati on about you: Pulse Blood pressure Weight Height 59/minute 130/66 74.6 kg 1.702 m Kishore Foote PA-C 06/19/2019 7:22 PM Signed This is a 73 year old male who presents to the clinic for 1 week follow up visit s/p CABG x 3 on 06/06/2019. Minimal sternal pain, L LE pain 3-5/10. Sleeping for 3 -4 hours at a time. No respiratory issues, using IS 4-5 times a day, taking w alks outside. Appetite returned to normal, moving bowels and urinating without issu e. Pt denies fever, chills, nausea, vomiting, chest pain, SOB, calf redness/pain/swelling, body aches. BP 130/66 (BP Site: Right Arm, BP Position: Sitting, BP Cuff Size: Regular Adult) Pulse (!) 59 Ht 170.2 cm (5' 7) Wt 74.6 kg (16 4 lb 6.4 oz) SpO2 97% BMI 25.75 kg/m? O2 stats on RA Pulse regular General: Alert and oriented x 3, in no acute distress Sternum: Stable. Incision c/d/i and healing well, no sign of infection or dehiscence. Cardiovascular: RRR w/ systolic ejection murmur. No rub or gallop. Trace L LE pitting edema, No R LE edema Lungs: Bibasilar rales. No rhonchi, or wheeze. Abd: +BS, normoactive. Extremities: Warm, good capillary refill. L LE SVG incisio n sites c/d/i and healing well, no sign of infection or dehiscence. A/P 1. Discussed with patient medications: continue as prescribe d 2. Discussed with patient pain medications: continue prn 3. Wound: No issues 4. Discussed with patient to continue and increase ambulatio n 5. Pt encourage to increase PO intake and to begin heart hea lthy diet 6. F/u in 2 weeks w/ 2V CXR Kishore Foote PA-C Referring Provider: Rich DOUGHERTY [[id number]] Allergies As of Date: 06/18/2019 (No Known Allergies) Date Reviewed: 06/18/2019 Reviewed by: Holli Herrera Ma - Fully Assessed Reason for Visit: Post-Op Visit [1236] Primary Visit Diagnosis:S/P CABG (coronary artery bypass gra ft) [Z95.1] Prescriptions as of 06/18/2019 Sig: ACETAMINOPHEN 500 MG TABLET Take 2 tablets by mouth every* AMIODARONE 200 MG TABLET Take 1 tablet by mouth once d* ATORVASTATIN 40 MG TABLET Take 1 tablet by mouth daily * TAMSULOSIN 0.4 MG CAPSULE Take 1 capsule by mouth once * METOPROLOL TARTRATE 25 MG TAB* Take 1 tablet by mouth every * MAGNESIUM OXIDE 400 MG (241.3* Take 1 tablet by mouth twice * MULTIVITAMIN-FERROUS FUMARATE* Take 1 tablet by mouth once d * TRAMADOL 50 MG TABLET Take 1 tablet by mouth every * ASPIRIN 81 MG TABLET,DELAYED * Take 2 tablets by mouth once * POTASSIUM CHLORIDE ER 20 MEQ * Take 1 tablet by mouth once d * FUROSEMIDE 20 MG TABLET Take 1 tablet by mouth once d* ONDANSETRON HCL 4 MG TABLET Take 1 tablet by mouth every * SULFACETAMIDE SODIUM 9.8 %-HARRIS* Apply thin film to affected a * Problem List As Of Date 06/18/2019 Noted Resolved Dyspnea on exertion [R06.09] Dyslipidemia [E78.5] More... HTN (hypertension) [I10] More... Former smoker, stopped smoking in distant past * HARLEY on CPAP [G47.33, Z99.89] More... Abnormal PFTs (pulmonary function tests) [R94.2]12/27/2014 Rosacea [L71.9] Chest pain [R07.9] 06/01/2019 06/02/2019 More... Chest pain [R07.9] 06/05/2019 06/11/2019 CAD (coronary artery disease) [I25.10] 06/05/2019 Encounter Status:Closed by IKSHORE FOOTE on 06/19/19 progress on 2019-05 PROGRESS HNO ID: [id number] Normal 06-13-2019 [facility] Author: Bella Santos ([id number]) Service: ? Author Type: Physician Type: Progress Notes Filed: 06/13/2019 2:19 PM Note Text: Noted Bella Santos MD progress on 2019-05 PROGRESS HNO ID: [id number] Normal 06-12-2019 [facility] Author: Angel Burt [facility] ([id number]) Service: ? Author Type: ? Type: Progress Notes Filed: 06/13/2019 2:19 PM Note Text: TRANSITION CARE MANAGEMENT (TCM) INITIAL CONTACT Second Operator Outreach Provider Action/FYI: -HH nurse just left after visiting the pt and states he was doing very well. -Pain is 3-4/10 at graft site and he is using Tylenol/Tramad ol as needed -Only voiced concern is he feels his new meds made he fatigu ed today. Stating he nodded off at breakfast after taking meds. But vo iced how he is aware he is recovering and his body may take time to adju st -All specialty follow up appts made, waiting circulation assistant from PT AND OT Initial contact with patient post discharge, spoke to uyko [place] Patient identified by name and . TRANSITION CARE MANAGEMENT INITIAL OUTREACH DOCUMENTATION: Date of Outreach: 06/12/2019 06/04/2019 Outreach Attempt 1: Contact Made Contact Not Made Date of Discharge 06/11/2019 06/02/2019 Some recent data might be hidden SUMMARY: -Pt discharged from [facility] on 06/11/2019. -Admitted for: CAD/Coronary artery bypass grafting Do you have a hospital follow up appointment with your PCP? Appointment on with . No. Assist patient with follow-up appointment within 1-14 ca lendar days from discharge date. If patient prefers not to schedule foll ow-up appointment at this time, notify PCP. acetaminophen (TYLENOL) 1,000 mg Take 1,000 mg by mouth every 6 hours. ? ? amiodarone (PACERONE) 200 mg Take 200 mg by mouth once daily. ? Qty: 30 tablet Refills: 1 ? tamsulosin ER (FLOMAX) 0.4 mg Take 0.4 mg by mouth once daily. ? Qty: 30 capsule Refills: 0 ? metoprolol tartrate (short acting) (LOPRESSOR) 25 mg Take 25 mg by mouth every 12 hours. ? Qty: 60 tablet Refills: 1 ? magnesium oxide (MAG-OX) 400 mg Take 400 mg by mouth twice daily. ? ? multivitamin-ferrous fumarate-folic acid (CENTRUM) 1 tablet Take 1 tablet by mouth once daily. ? ? traMADol (ULTRAM) 50 mg Take 50 mg by mouth every 6 hours as needed for Pain. Qty: 28 tablet Refills: 0 Associated Diagnoses:Coronary artery disease involving nativ e coronary artery of nez perce heart without angina pectoris ? potassium chloride ER (K-DUR, KLOR-CON) 20 mEq Take 20 mEq by mouth once daily. ? Qty: 20 tablet Refills: 0 ? furosemide (LASIX) 20 mg Take 20 mg by mouth once daily. ? Qty: 20 tablet Refills: 0 ? ondansetron (ZOFRAN) 4 mg Take 4 mg by mouth every 8 hours as needed for Nausea/Vomiti ng. MEDICATIONS: Many patients have questions or concerns about their medicat ions once they are home. Were you prescribed any new medications? Yes If yes, what are those medications? -acetaminophen (TYLENOL) 1,000 mg Take 1,000 mg by mouth every 6 hours. ? ?-amiodarone (PACERONE) 200 mg Take 200 mg by mouth once daily. ? ?-tamsulosin ER (FLOMAX) 0.4 mg Take 0.4 mg by mouth once daily. ? ?-metoprolol tartrate (short acting) (LOPRESSOR) 25 mg Take 25 mg by mouth every 12 hours. ? -magnesium oxide (MAG-OX) 400 mg Take 400 mg by mouth twice daily. ? ? -multivitamin-ferrous fumarate-folic acid (CENTRUM) 1 tablet Take 1 tablet by mouth once daily. ? -?traMADol (ULTRAM) 50 mg Take 50 mg by mouth every 6 hours as needed for Pain. ? -potassium chloride ER (K-DUR, KLOR-CON) 20 mEq Take 20 mEq by mouth once daily. ? -furosemide (LASIX) 20 mg Take 20 mg by mouth once daily. ? -ondansetron (ZOFRAN) 4 mg Take 4 mg by mouth every 8 hours as needed for Nausea/Vomiti ng. Were you told to hold any medications? No Were any of your medications discontinued? Yes, Definity (per d/c summary) Do you have any questions about getting or taking your medic ations? No Your discharge instructions/After visit Summary (AVS) are im portant in guiding you through the recovery process. Is there anything I might help you understand? No Do you have all the necessary equipment and supplies at home ? Yes Medical records from recent hospitalization: [facility] ematoutreach on CNPTOUTREACH Patient Outreach (FAMPWS) Normal 0 06-12-2019 [facility] JOCELYN LOAIZA ([id number]) 1945 M [place] Date Time Provider Department ([id number]) 06/12/19 ANGEL BURT (JESSY) FAMPWS During your visit today, we recorded the following informati on about you: Angel Burt JESSY 06/13/2019 2:19 PM Signed TRANSITION CARE MANAGEMENT (TCM) INITIAL CONTACT Second Operator Outreach Provider Action/FYI: -HH nurse just left after visiting the pt and states ajith schuster was doing very well. -Pain is 3-4/10 at graft site and he is using Tylenol/Tramad ol as needed -Only voiced concern is he feels his new meds ma de he fatigued today. Stating he nodded off at breakfast after taking meds. But voiced how he is aware he is recovering and his body may take time to adjust -All specialty follow up appts made, waiting circulation assistant from PT AND OT Initial contact with patient post discharge, spoke to yuko [place] Patient identified by name and . TRANSITION CARE MANAGEMENT INITIAL OUTREACH DOCUMENTATION: Date of Outreach: 06/12/2019 06/04/2019 Outreach Attempt 1: Contact Made Contact Not Made Date of Discharge 06/11/2019 06/02/2019 Some recent data might be hidden SUMMARY: -Pt discharged from [facility] on 06/11/2019. -Admitted for: CAD/Coronary artery bypass grafting Do you have a hospital follow up appointment with your PCP? Appointment on with . No. Assist patient with follow-up appointment within 1 -14 calendar days from discharge date. If patient prefers not to schedule follow- up appointment at this time, notify PCP. acetaminophen (TYLENOL) 1,000 mg Take 1,000 mg by mouth every 6 hours. ? ? amiodarone (PACERONE) 200 mg Take 200 mg by mouth once daily. ? Qty: 30 tablet Refills: 1 ? tamsulosin ER (FLOMAX) 0.4 mg Take 0.4 mg by mouth once daily. ? Qty: 30 capsule Refills: 0 ? metoprolol tartrate (short acting) (LOPRESSOR) 25 mg Take 25 mg by mouth every 12 hours. ? Qty: 60 tablet Refills: 1 ? magnesium oxide (MAG-OX) 400 mg Take 400 mg by mouth twice daily. ? ? multivitamin-ferrous fumarate-folic acid (CENTRUM) 1 tablet Take 1 tablet by mouth once daily. ? ? traMADol (ULTRAM) 50 mg Take 50 mg by mouth every 6 hours as needed for Pain. Qty: 28 tablet Refills: 0 Associated Diagnoses:Coronary artery disease inv olving nez perce coronary artery of nez perce heart without angina pectoris ? potassium chloride ER (K-DUR, KLOR-CON) 20 mEq Take 20 mEq by mouth once daily. ? Qty: 20 tablet Refills: 0 ? furosemide (LASIX) 20 mg Take 20 mg by mouth once daily. ? Qty: 20 tablet Refills: 0 ? ondansetron (ZOFRAN) 4 mg Take 4 mg by mouth every 8 hours as needed for Nausea/Vomiti ng. MEDICATIONS: Many patients have questions or concerns about their medications once they are home. Were you prescribed any new medications? Yes If yes, what are those medications? -acetaminophen (TYLENOL) 1,000 mg Take 1,000 mg by mouth every 6 hours. ? ?-amiodarone (PACERONE) 200 mg Take 200 mg by mouth once daily. ? ?-tamsulosin ER (FLOMAX) 0.4 mg Take 0.4 mg by mouth once daily. ? ?-metoprolol tartrate (short acting) (LOPRESSOR) 25 mg Take 25 mg by mouth every 12 hours. ? -magnesium oxide (MAG-OX) 400 mg Take 400 mg by mouth twice daily. ? ? -multivitamin-ferrous fumarate-folic acid (CENTRUM) 1 tablet Take 1 tablet by mouth once daily. ? -?traMADol (ULTRAM) 50 mg Take 50 mg by mouth every 6 hours as needed for Pain. ? -potassium chloride ER (K-DUR, KLOR-CON) 20 mEq Take 20 mEq by mouth once daily. ? -furosemide (LASIX) 20 mg Take 20 mg by mouth once daily. ? -ondansetron (ZOFRAN) 4 mg Take 4 mg by mouth every 8 hours as needed for Nausea/Vomiti ng. Were you told to hold any medications? No Were any of your medications discontinued? Yes, Definity (per d/c summary) Do you have any questions about getting or taking your medic ations? No Your discharge instructions/After visit Summary (AVS) are important in guiding you through the recovery pro cess. Is there anything I might help you understand? No Do you have all the necessary equipment and supplies at home ? Yes Medical records from recent hospitalization: [facility] Bella Santos MD 06/13/2019 2:19 PM Signed Noted Bella Santos MD Allergies As of Date: 06/12/2019 (No Known Allergies) Date Reviewed: 06/11/2019 Reviewed by: Keya (Rn) TIMOTHY Mcmillan - Fully Assessed Reason for Visit: Transition Of Care [4074] Cmt: dc 06/11/2019 [facility] Prescriptions as of 06/12/2019 Sig: ACETAMINOPHEN 500 MG TABLET Take 2 tablets by mouth every* AMIODARONE 200 MG TABLET Take 1 tablet by mouth once d* ATORVASTATIN 40 MG TABLET Take 1 tablet by mouth daily * TAMSULOSIN 0.4 MG CAPSULE Take 1 capsule by mouth once * METOPROLOL TARTRATE 25 MG TAB* Take 1 tablet by mouth every * MAGNESIUM OXIDE 400 MG (241.3* Take 1 tablet by mouth twice * MULTIVITAMIN-FERROUS FUMARATE* Take 1 tablet by mouth once d * TRAMADOL 50 MG TABLET Take 1 tablet by mouth every * ASPIRIN 81 MG TABLET,DELAYED * Take 2 tablets by mouth once * POTASSIUM CHLORIDE ER 20 MEQ * Take 1 tablet by mouth once d * FUROSEMIDE 20 MG TABLET Take 1 tablet by mouth once d* ONDANSETRON HCL 4 MG TABLET Take 1 tablet by mouth every * SULFACETAMIDE SODIUM 9.8 %-HARRIS* Apply thin film to affected a * Problem List As Of Date 06/12/2019 Noted Resolved Dyspnea on exertion [R06.09] Dyslipidemia [E78.5] More... HTN (hypertension) [I10] More... Former smoker, stopped smoking in distant past * HARLEY on CPAP [G47.33, Z99.89] More... Abnormal PFTs (pulmonary function tests) [R94.2]12/27/2014 Rosacea [L71.9] Chest pain [R07.9] 06/01/2019 06/02/2019 More... Chest pain [R07.9] 06/05/2019 06/11/2019 CAD (coronary artery disease) [I25.10] 06/05/2019 Encounter Status:Closed by BELLA SANTOS MD on 06/13/19 progress on 2019-05 PROGRESS HNO ID: [id number] Normal 06-11-2019 [facility] Author: Fadia Bangura ([id number]) Service: Electrophysiology Author Type: Physician Type: Progress Notes Filed: 06/11/2019 3:36 PM Note Text: PROGRESS NOTE EP SERVICE SERVICE DATE: 06/11/2019 SERVICE TIME: 3:32 PM Subjective INTERIM HISTORY: feels ok CARDIAC STATUS: in SR Objective PHYSICAL EXAM: Body mass index is 26.94 kg/m?. O2 Therapy: Room Air No data recorded Patient Vitals for the past 24 hrs: BP Temp Temp src Pulse Resp SpO2 Weight 06/11/19 1507 133/72 37 ?C (98.6 ?F) Temporal 65 18 95 % ? 06/11/19 1209 131/67 36.8 ?C (98.2 ?F) Temporal 60 17 96 % ? 06/11/19 0743 129/72 36.7 ?C (98 ?F) Oral 64 18 96 % ? 06/11/19 0552 ? 78 kg (172 lb) 06/11/19 0327 102/53 36.5 ?C (97.7 ?F) Temporal 62 16 95 % ? 06/10/19 2336 129/73 36.6 ?C (97.9 ?F) Temporal 64 19 95 % ? 06/10/19 2334 ? ? ? 68 18 94 % ? 06/10/19 1922 136/70 36.9 ?C (98.4 ?F) Temporal 75 18 96 % ? 06/10/19 1622 117/68 36.7 ?C (98.1 ?F) Oral 70 18 96 % ? Pleasant, comfortable, not in acute distress. Awake, alert, oriented times 3. Moves all extremities. SKIN: No rash or lumps. HEENT: Normocephalic, face symmetrical. NECK: Supple, no JVD, LUNGS: Clear to auscultation bilaterally. CARDIAC: S1 and S2, no S3 or S4, no additional heart sounds or murmurs. ABDOMEN: Soft, nontender, EXTREMITIES: No edema. MEDICATIONS: Current Facility-Administered Medications Medication Dose Route Frequency - dextrose 40 % 15 g 15 g ORAL PRN Or - glucagon 1 mg injection (GLUCAGEN) 1 mg INTRAMUSCULAR PRN Or - dextrose 50% in water 25 mL syringe 12.5 g INTRAVENOUS PRN - albuterol 2.5 mg /3 mL (0.083 %) 2.5 mg (PROVENTIL) 2.5 mg INHALATION q 2 H PRN - aspirin 162 mg chewable tab(s) 162 mg ORAL/FEEDING TUBE DA MELO - ondansetron (PF) 4 mg injection (ZOFRAN) 4 mg INTRAVENOUS q 6 H PRN - heparin 5,000 Units injection 5,000 Units SUBCUTANEOUS q 1 2 H - atorvastatin 80 mg tab(s) (LIPITOR) 80 mg ORAL AT BEDTIME - pantoprazole DR 40 mg tab(s) (PROTONIX) 40 mg ORAL DAILY ( 6 AM) - docusate sodium 100 mg cap(s) (COLACE) 100 mg ORAL BID - aluminum-magnesium hydroxide-simethicone 200-200-20 mg/5 m L 30 mL (MAALOX,MYLANTA,MAG-AL PLUS) 30 mL ORAL q 4 H PRN - magnesium hydroxide 400 mg/5 mL 30-60 mL (MOM) 30-60 mL OR AL q 8 H PRN - magnesium oxide 400 mg tab(s) (MAG-OX) 400 mg ORAL BID - multivitamin-ferrous fumarate-folic acid 1 tablet (CENTRUM ) 1 tablet ORAL DAILY - insulin lispro injection (rapid acting) (HumaLOG) SUBCUTAN EOUS w MEALS - insulin lispro injection (rapid acting) (HumaLOG) SUBCUTAN EOUS AT BEDTIME - acetaminophen 1,000 mg tab(s) (TYLENOL) 1,000 mg ORAL q 6 H - tamsulosin ER 0.4 mg cap(s) (FLOMAX) 0.4 mg ORAL DAILY - metoprolol tartrate (short acting) 25 mg tab(s) (LOPRESSOR ) 25 mg ORAL q 12 H - montelukast 10 mg tab(s) (SINGULAIR) 10 mg ORAL AT BEDTIME - traMADol 50 mg tab(s) (ULTRAM) 50 mg ORAL q 6 H PRN - furosemide 20 mg injection (LASIX) 20 mg INTRAVENOUS DAILY - potassium chloride ER 20 mEq tab(s) (K-DUR, KLOR-CON) 20 m Eq ORAL DAILY - amiodarone 200 mg tab(s) (PACERONE) 200 mg ORAL DAILY DATA: Diagnostic tests reviewed for today's visit: Most recent labs and imaging results. Past 72 Hour Labs: Recent Labs 06/09/19 0634 WBC 8.69 RBC 3.83* HB 11.8* HCT 36.3* MCV 94.8 MCH 30.8 MCHC 32.5 RDWCV 12.9 PLT 162 MPV 10.3 NEUTP 71.7 LYMPHP 12.9 MONOP 12.4 EODINP 2.8 BASOP 0.2 ABSNEUT 6.23 ABSMONO 1.08* ABSEOSIN 0.24 ABSBASO <0.03 GLUC 121* BUN 21 CREAT 0.91 NA 138 K 4.0 CHLOR 101 CO2 27 CA 8.5 MG 2.0 Last Lab Drawn: Triglyceride 144 06/02/2019 HDL Cholesterol 32 06/02/2019 LDL Cholesterol 92 06/02/2019 Cholesterol, Total 153 06/02/2019 Assessment/Plan 1- postop A Fib, the pt was started on Amiodarone he is maintaining SR I told the pt that my recommendation is to stop amiodarone a fter 6-8 weeks and if he has A fib in the future , other options are prefer red 2- I discussed with the pt the risk of stroke that is associ ated with potential recurrences of A Fib, which can still happen his CHADS-VASc score is 3 I would prefer anticoagulation at least for the first few we eks because of the possible A Fib recurrences , the pt understands he would prefer to hold off anticoagulation 3- CAD post CABG Medication and Non-Pharmacologic VTE Prophylaxis/Anticoagula nts Anticoagulant AND Antiplatelet Medications (From admission, onward) Start Dose Route Frequency Ordered Stop 06/11/19 0000 aspirin, enteric coated (ASPIRIN, ENTERIC COAT ED) 81 mg EC tablet 162 mg ORAL DAILY 06/11/19 1204 -- 06/07/19 0900 heparin 5,000 Units injection (Surgical Risk C ategories ) 5,000 Units SUBCUTANEOUS EVERY 12 HOURS 06/06/19 1453 -- 06/06/19 1500 aspirin 162 mg chewable tab(s) 162 mg PO/FT DAILY 06/06/19 1453 -- @LP PLINK([id number])@ VTE Prophylaxis: VTE prophylaxis appropriate SIGNATURE: Fadia Bangura MD PATIENT NAME: Jocelyn Loaiza DATE: June 11, 2019 TIME: 3:32 PM PAGER/CONTACT #: plan of care on PLAN OF CARE HNO ID: [id number] Normal 06-11-19 [facility] Author: Myrna Gonzales (Sat Tutor) ([id number]) Service: Pharmacy Author Type: Mill Attendant Type: Plan of Care Filed: 06/18/2019 10:45 AM Note Text: TECHNOLOGY LAB TEACHER BEDSIDE DELIVERY SURVEY 1. Patient to use [facility] Bedside Delivery - YES Insurance Information as follows: 2. Insurance card on file - YES 3. Credit card for payment - N/A PLAN OF CARE HNO ID: [id number] [place] 06-11-[address] [place] [address] Author: Myrna Gonzales (FetchDog) ([id number]) Service: Pharmacy Author Type: Mill Attendant Type: Plan of Care Filed: 06/18/2019 10:45 AM Note Text: Pharmacy Discharge Medication Service: This patient has elected to receive their discharge prescrip tions through the [facility] Bedside Prescription Delivery program. The prescriptions are currently being processed. A follow-up not e will be entered once the prescriptions have been filled and delivere d to the patient. Please contact me with any questions or updates to the patient's discharge medications. Myrna Gonzales (FetchDog) DCT Contact Info: [id number] PLAN OF CARE HNO ID: [id number] [place] 06-11-[address] [place] [address] Author: Myrna Gonzales (FetchDog) ([id number]) Service: Pharmacy Author Type: Mill Attendant Type: Plan of Care Filed: 06/18/2019 10:46 AM Note Text: PHARMACY BEDSIDE DELIVERY SERVICE Patient Name: Jocelyn Loaiza The marked outpatient medications were filled and delivered Medication List START taking these medications acetaminophen 500 mg tablet Commonly known as: TYLENOL Take 2 tablets by mouth every 6 hours. amiodarone 200 mg tablet Commonly known as: PACERONE Take 1 tablet by mouth once daily. furosemide 20 mg tablet Commonly known as: LASIX Take 1 tablet by mouth once daily. magnesium oxide 400 mg (241.3 mg magnesium) tablet Commonly known as: MAG-OX Take 1 tablet by mouth twice daily. metoprolol tartrate (short acting) 25 mg tablet Commonly known as: LOPRESSOR Take 1 tablet by mouth every 12 hours. multivitamin-ferrous fumarate-folic acid Commonly known as: CENTRUM Take 1 tablet by mouth once daily. ondansetron 4 mg tablet Commonly known as: ZOFRAN Take 1 tablet by mouth every 8 hours as needed for Nausea/Vo miting. potassium chloride ER 20 mEq tablet Commonly known as: K-DUR, KLOR-CON Take 1 tablet by mouth once daily. tamsulosin ER 0.4 mg Cap Commonly known as: FLOMAX Take 1 capsule by mouth once daily. traMADol 50 mg tablet Commonly known as: ULTRAM Take 1 tablet by mouth every 6 hours as needed for Pain for up to 7 days. CHANGE how you take these medications aspirin, enteric coated 81 mg EC tablet Commonly known as: ASPIRIN, ENTERIC COATED Take 2 tablets by mouth once daily. What changed: how much to take atorvastatin 40 mg tablet Commonly known as: LIPITOR Take 1 tablet by mouth daily at bedtime. What changed: ? medication strength ? how much to take ? when to take this CONTINUE taking these medications sulfacetamide sodium-sulfur 9.8-4.8 % Lotn Apply thin film to affected area 1 times daily. You might also be taking other medications not listed above. If you have questions about any of your other medications, talk to the neisha hogan who prescribed them or your Primary Care Provider. STOP taking these medications atenolol 50 mg tablet Commonly known as: TENORMIN nitroglycerin sublingual 0.4 mg SL tablet Commonly known as: NITROSTAT perflutren lipid microspheres 1.1 mg/mL injection (to be pro vided with echo procedure) Commonly known as: CHANEL Gonzales (Sat Tutor) PAGER: [phone] June 11, 2019 10:45 AM nursing prog on NURSING PROG HNO ID: [id number] [place] 06-11-[address] [place] [address] Author: Keya (Rn) TIMOTHY Mcmillan ([id number]) Service: Nursing Author Type: Registered Nurse Type: Nursing Progress Note Filed: 06/11/2019 5:40 PM Note Text: Discharge instructions reviewed with pt and post cardiothora sic discharge instructions reviewed with pt. IV removed. Telemetry removed . Pt had prescriptions filled here at [facility] and had them in hand a t time of discharge.Discharged to home with belongings with family mem bers. case managem on CASE MANAGEM HNO ID: [id number] [place] 06-11-[address] [place] [address] Author: Mirta Newman (Rn)_ TIMOTHY Humphrey ([id number]) Service: Case Management Author Type: Registered Nurse Type: Care Mgt Progress Note Filed: 06/11/2019 2:28 PM Note Text: CARE MANAGEMENT DISCHARGE NOTE SERVICE DATE: 06/11/2019 SERVICE TIME: 2:25pm LOS: 6 days Admission Date: 06/05/2019 DISCHARGE ARRANGEMENT (list agency and phone number) Discharge Arrangement: Home Mcfp Care: PT;Nursing;OT Provider Name: [facility] HANDOFF COMMUNICATION: Handoff to: Primary Care Physician Primary Care Physician Name/Phone: Dr. Bella Burroughs [phone] TRANSPORTATION ARRANGEMENTS: Transportation Arrangements: Car Discharge Information Row Name Admission (Current) from 06/05/[address] [facility] Start of Care 06/13/19 Needs Prior to Discharge: Ready for Discharge IMM Follow Up Copy Given: Yes Copy given to:: Patient Method: In Person Patient is medically cleared for discharge today, referral t o [facility] updated, clinical nurse is aware of disc harge plans for today, family to transport. SIGNATURE: Mirta Humphrey RN PATIENT NAME: Jocelyn Loaiza DATE: June 11, 2019 TIME: 2:26 PM PAGER/CONTACT #: [phone] CASE MANAGEM HNO ID: [id number] [place] 06-11-[address] [place] [address] Author: Albertina COATES ([id number]) Service: Care Management Author Type: ? Type: Care Mgt Progress Note Filed: 06/11/2019 1:46 PM Note Text: CARE MANAGEMENT PROGRESS NOTE SERVICE DATE: 06/11/2019 SERVICE TIME: 11:32am LOS: 6 days IMM Follow Up Copy Given: Yes Copy given to:: Patient Method: In Person SIGNATURE: Albertina COATES PATIENT NAME: Jocelyn Loaiza DATE: June 11, 2019 TIME: 1:45 PM PAGER/CONTACT #: [phone] xr chest 2v frontal/lat on 2019-06-10 XR CHEST 2V * * *Final Report* * * Normal 06-10 [facility] FRONTAL/LAT DATE OF EXAM: Jun 10 2019 8:23AM Hospital FVX [id number] - XR CHEST 2V FRONTAL/LAT / ([id number]) PROCEDURE REASON: Post-operative / post-procedure assessment , asymptomatic * * * * Physician Interpretation * * * * EXAMINATION: CHEST RADIOGRAPH (2 VIEW FRONTAL and LATERAL) CLINICAL HISTORY: Post-operative / post-procedure assessment , asymptomatic MQ: XC2_5 Comparison: 06/09/2019 RESULT: Lines, tubes, and devices: None. Lungs and pleura: There are persistent small bilateral pleur al effusions. There are mild infiltrates/atelectatic changes in both lung bases. Cardiomediastinal silhouette: The patient is status post med fito sternotomy. There is mild cardiomegaly Other: None. IMPRESSION: Postoperative changes of small bilateral pleural effusions a nd atelectatic changes in both lung bases remains stable with p ersistent cardiomegaly. Anthropometrist: VIK Transcribe Date/Time: Jun 10 2019 8:29A Dictated by : ANITA MIKE MD This examination was interpreted and the report reviewed and electronically signed by: ANITA MIKE MD on Jun 10 2019 8:31AM EST [id number] progress on 2019-05 PROGRESS HNO ID: [id number] Normal 06-10-2019 [facility] Author: Feliberto Guaman (Pa) ([id number]) Service: Thoracic Surgery Author Type: Physician Or Director Type: Progress Notes Filed: 06/10/2019 10:37 AM Note Text: Cardiac Surgery PROGRESS NOTE EVALUATION DATE: 06/10/2019 EVALUATION TIME: 10:32 AM PRIMARY SERVICE: Cardiac Surgery Subjective INTERVAL HPI: 73 year old male POD #4 s/p CABG x 3 Patient recovering well. He is eating well, +flatus, no BM b ut feels the urge. He ambulated around pod yesterday and is using IS fr equently. He did not sleep well last PM as he did not have home CPAP. Danial alejo brought CPAP for him today. Pain is well controlled with current reg imen. Urinating well. Remains in NSR. He denies fever, chills,chest pain, sob, n/v, body aches, or calf tenderness ? PERTINENT ROS: As above MEDICATIONS: Current Facility-Administered Medications Medication Dose Route Frequency - dextrose 40 % 15 g 15 g ORAL PRN Or - glucagon 1 mg injection (GLUCAGEN) 1 mg INTRAMUSCULAR PRN Or - dextrose 50% in water 25 mL syringe 12.5 g INTRAVENOUS PRN - albuterol 2.5 mg /3 mL (0.083 %) 2.5 mg (PROVENTIL) 2.5 mg INHALATION q 2 H PRN - aspirin 162 mg chewable tab(s) 162 mg ORAL/FEEDING TUBE DA MELO - ondansetron (PF) 4 mg injection (ZOFRAN) 4 mg INTRAVENOUS q 6 H PRN - oxyCODONE IR 5-10 mg tab(s) (ROXICODONE) 5-10 mg ORAL q 4 H PRN - heparin 5,000 Units injection 5,000 Units SUBCUTANEOUS q 1 2 H - atorvastatin 80 mg tab(s) (LIPITOR) 80 mg ORAL AT BEDTIME - pantoprazole DR 40 mg tab(s) (PROTONIX) 40 mg ORAL DAILY ( 6 AM) - docusate sodium 100 mg cap(s) (COLACE) 100 mg ORAL BID - aluminum-magnesium hydroxide-simethicone 200-200-20 mg/5 m L 30 mL (MAALOX,MYLANTA,MAG-AL PLUS) 30 mL ORAL q 4 H PRN - magnesium hydroxide 400 mg/5 mL 30-60 mL (MOM) 30-60 mL OR AL q 8 H PRN - magnesium oxide 400 mg tab(s) (MAG-OX) 400 mg ORAL BID - multivitamin-ferrous fumarate-folic acid 1 tablet (CENTRUM ) 1 tablet ORAL DAILY - insulin lispro injection (rapid acting) (HumaLOG) SUBCUTAN EOUS w MEALS - insulin lispro injection (rapid acting) (HumaLOG) SUBCUTAN EOUS AT BEDTIME - acetaminophen 1,000 mg tab(s) (TYLENOL) 1,000 mg ORAL q 6 H - tamsulosin ER 0.4 mg cap(s) (FLOMAX) 0.4 mg ORAL DAILY - metoprolol tartrate (short acting) 25 mg tab(s) (LOPRESSOR ) 25 mg ORAL q 12 H - amiodarone 200 mg tab(s) (PACERONE) 200 mg ORAL BID - montelukast 10 mg tab(s) (SINGULAIR) 10 mg ORAL AT BEDTIME Objective PHYSICAL EXAM: BP 127/67 Pulse 72 Temp 36.7 ?C (98 ?F) ( Oral) Resp 18 Ht 170.2 cm (5' 7) Wt 79 kg (174 lb 3.2 oz) S pO2 95% BMI 27.28 kg/m? General: alert, in no acute distress Skin: warm and dry Heart: RRR Lungs: CTA b/l Abdomen: +bs, soft, non-tender Extremities: trace b/l lower extremity edema, SVG site cdi Sternum: stable, incision is covered with aquacell dressing DATA: WBC (k/uL) Date Value 06/09/2019 8.69 RBC (m/uL) Date Value 06/09/2019 3.83 (L) Hemoglobin (g/dL) Date Value 06/09/2019 11.8 (L) Hematocrit (%) Date Value 06/09/2019 36.3 (L) MCV (fL) Date Value 06/09/2019 94.8 MCH (pG) Date Value 06/09/2019 30.8 MCHC (g/dL) Date Value 06/09/2019 32.5 RDW-CV (%) Date Value 06/09/2019 12.9 Platelet Count (k/uL) Date Value 06/09/2019 162 MPV (fL) Date Value 06/09/2019 10.3 Glucose (mg/dL) Date Value 06/09/2019 121 (H) BUN (mg/dL) Date Value 06/09/2019 21 Creatinine (mg/dL) Date Value 06/09/2019 0.91 Sodium (mmol/L) Date Value 06/09/2019 138 Potassium (mmol/L) Date Value 06/09/2019 4.0 Chloride (mmol/L) Date Value 06/09/2019 101 CO2 (mmol/L) Date Value 06/09/2019 27 Protein, Total (g/dL) Date Value 02/27/2019 7.4 Albumin (g/dL) Date Value 02/27/2019 4.2 Calcium (mg/dL) Date Value 06/09/2019 8.5 Alkaline Phosphatase (U/L) Date Value 02/27/2019 52 Bilirubin, Total (mg/dL) Date Value 02/27/2019 0.3 AST (U/L) Date Value 02/27/2019 24 ALT (U/L) Date Value 02/27/2019 20 URINALYSIS pH, Arterial Date Value Ref Range Status 06/06/2019 7.353 7.350 - 7.450 pH units Final Specific [place], Ur Date Value Ref Range Status 06/05/2019 >1.030 (H) 1.005 - 1.030 Corrected Comment: Corrected on 06/05 AT 1845: Previously reported as 1.045 Glucose, Urine Date Value Ref Range Status 06/05/2019 Negative Negative mg/dL Final Bilirubin, Urine Date Value Ref Range Status 06/05/2019 Negative Negative Final Ketones, Urine Date Value Ref Range Status 06/05/2019 Negative Negative Final Hemoglobin/Blood,Ur Date Value Ref Range Status 06/05/2019 Negative Negative Final Protein, Urine Date Value Ref Range Status 06/05/2019 30 (A) Negative mg/dL Final WBC, Urine Date Value Ref Range Status 06/05/2019 Rare (A) Negative /HPF Final Assessment/Plan 73 year old male POD #4 s/p CABG x 3 ?-continue lopressor, statin, asa, and mag-ox ?-continue to increase ambulation, IS use, deep b reathing, and PO intake ? Atrial fibrillation: -amiodarone 200 mg PO bid -in NSR and rate controlled HARLEY: -home CPAP ? Hypertension: stable ? Urinary retention: resolved ?-flomax started ?-stable ? Pulmonary atelectasis: ?-continue IS and deep breathing ?-discontinue lasix ? Acute post -op hyperglycemia: ?-stable on sliding scale ? Acute post-op pain: ?-continue current PO regimen ? DVT ppx: ?-SQ heparin, compression stockings, and asa ? GI ppx: ?-protonix ? ? D/C planning home with HHC likely tomorrow SIGNATURE: Feliberto Gauman PA-C PATIENT NAME: Jocelyn ernst DATE: June 10, 2019 TIME: 10:32 AM nursing prog on NURSING HNO ID: [id number] Normal 06-10-2019 [facility] Author: Cally Harper (Rn) TIMOTHY [facility] Service: ? ([id number]) Author Type: Registered Nurse Type: Nursing Progress Note Filed: 06/10/2019 6:47 PM Note Text: Nursing Progress Note Patient Name: Jocelyn Loaiza Patient Location: [id number] Daily Note:1012 Paged PA. Gave suppository this am, pt gregory restrepo is in the restroom and states, I feel like it is right there, I just can't pass anything and it is uncomfortable. Pt did have a small bm, b ut still states he feels there is more. Encouraging pt to walk. Order ed prune juice. Safety maintained, call light within reach, will cont inue to assess. 1036 Spoke to PA. Will order another suppository if pt needs it later today. Pt continues to walk. Tele and safety maintained. Liam l continue to assess. 1044 Pt walked up to nurses station and states, I can't pee either. Will bladder scan. Safety maintained. 1055 Bladder scanned 443ml. Pt states, I am uncomfortable. Paged PA. Will continue to assess. 1108 PA d/c oxy and ordered tramadol. Ordered a suppository, and will bladder scan again, if over 500mls will straight cath. Will continue to assess. Safety maintained. 1142 Gave milk of mag, prune juice and cherelle alexa. Will cont inue to assess. 1228 Pt is currently sleeping with his cpap on. Will continu e to assess. 1322 Pt had large BM and voided 400ml. Pt is currently in ch air. Denies any pain. Tele and safety maintained, call light within reac h, will continue to assess. [address] floor. Currently resting in bed. Tele SR, VSS. Tele and safety maintained, call light within reach. This note was completed by: Cally Garland RN consult prog on CONSULT PROG HNO ID: [id number] Normal 06-10-19 [facility] Author: Christiano Tapia ([id number]) Service: Electrophysiology Author Type: Physician Type: Consult Progress Note Filed: 06/10/2019 1:54 PM Note Text: 73 y/o male s/p CABG with post op AF now in nsr after AMIODA KARL started. from cardiac standpoint doing well but some issues with teresa l function and nausea. some issues with bladder function but better now no change of Rx. DR BANGURA will follow in AM DR CHRISTIANO TAPIA MD allied health on 14-06-15 [facility] HNO ID: [id number] Normal 020 [facility] Author: José Antonio (Rt) Bryon Rosales ([id number]) Service: Radiology Author Type: Mill Attendant Type: [facility] Filed: 06/10/2019 8:25 AM Note Text: Radiology Service Progress Note PATIENT NAME: Jocelyn Loaiza DATE OF SERVICE: June 10, 2019 TIME: 8:25 AM PATIENT IDENTITY VERIFICATION COMPLETED USING TWO (2) IDENTI FIERS: Name and Date of confirmed by patient verbally. PATIENT GENDER DATA: Male PATIENT RELEVANT IMPLANT DATA REVIEWED: Not Applicable RADIOLOGY DEPARTMENT: General X-ray: Exam(s) Completed: Ches t X-Ray PERIPHERAL IV DATA: Not applicable SIGNED BY: José Antonio Franks June 10, 2019 8:25 AM xr chest 1v frontal port on 2019-06-09 XR CHEST 1V * * *Final Report* * * Normal 06-09 [facility] FRONTAL PORT DATE OF EXAM: Jun 09 2019 10:10AM [facility] ([id number]) FVX 5376 - XR CHEST 1V FRONTAL PORT / PROCEDURE REASON: Post-operative / post-procedure assessment , asymptomatic * * * * Physician Interpretation * * * * EXAMINATION: CHEST RADIOGRAPH (PORTABLE SINGLE VIEW AP) Exam Date/Time: 06/09/2019 10:10 AM CLINICAL HISTORY: Post-operative / post-procedure assessment , asymptomatic MQ: XCPR_5 Comparison: 06/07/2019 RESULT: Lines, tubes, and devices: The previously seen [place]-Gracie cat heter has been removed. Lungs and pleura: There is persistent hypoinflation of the l ungs with improvement of the infiltrates/atelectatic changes involving both lung bases. There are small bilateral pleural effusions. Cardiomediastinal silhouette: There is persistent cardiomega ly. The patient is status post median sternotomy. Other: None. IMPRESSION: Satisfactory postoperative exam. Anthropometrist: VIK Transcribe Date/Time: Jun 09 2019 10:12A Dictated by : ANITA MIKE MD This examination was interpreted and the report reviewed and electronically signed by: ANITA MIKE MD on Jun 09 2019 10:13AM EST [id number] progress on 2019-05 PROGRESS HNO ID: [id number] Normal 06-09-2019 [facility] Author: Feliberto Guaman (Pa) ([id number]) Service: Thoracic Surgery Author Type: Physician Or Director Type: Progress Notes Filed: 06/09/2019 9:30 AM Note Text: Cardiac Surgery PROGRESS NOTE EVALUATION DATE: 06/09/2019 EVALUATION TIME: 9:23 AM PRIMARY SERVICE: Cardiac Surgery Subjective INTERVAL HPI: 73 year old male POD #3 s/p CABG x 3 Patient had an episode of atrial fibrillation last evening, but denies experiencing palpitations or other symptoms. His appetite co ntinues to improve, +flatus, no BM yet. He ambulated 3 times yesterday around pod and once this AM. He is using IS multiple times per hour. Pain i s well controlled with current PO regimen. He slept well last PM. He denies fever, chills,chest pain, sob, n/v, body aches, or calf tenderness PERTINENT ROS: As above MEDICATIONS: Current Facility-Administered Medications Medication Dose Route Frequency - dextrose 40 % 15 g 15 g ORAL PRN Or - glucagon 1 mg injection (GLUCAGEN) 1 mg INTRAMUSCULAR PRN Or - dextrose 50% in water 25 mL syringe 12.5 g INTRAVENOUS PRN - albuterol 2.5 mg /3 mL (0.083 %) 2.5 mg (PROVENTIL) 2.5 mg INHALATION q 2 H PRN - aspirin 162 mg chewable tab(s) 162 mg ORAL/FEEDING TUBE DA MELO - ondansetron (PF) 4 mg injection (ZOFRAN) 4 mg INTRAVENOUS q 6 H PRN - oxyCODONE IR 5-10 mg tab(s) (ROXICODONE) 5-10 mg ORAL q 4 H PRN - heparin 5,000 Units injection 5,000 Units SUBCUTANEOUS q 1 2 H - atorvastatin 80 mg tab(s) (LIPITOR) 80 mg ORAL AT BEDTIME - pantoprazole DR 40 mg tab(s) (PROTONIX) 40 mg ORAL DAILY ( 6 AM) - docusate sodium 100 mg cap(s) (COLACE) 100 mg ORAL BID - aluminum-magnesium hydroxide-simethicone 200-200-20 mg/5 m L 30 mL (MAALOX,MYLANTA,MAG-AL PLUS) 30 mL ORAL q 4 H PRN - magnesium hydroxide 400 mg/5 mL 30-60 mL (MOM) 30-60 mL OR AL q 8 H PRN - bisacodyl 10 mg suppository (DULCOLAX) 10 mg RECTAL PRN - magnesium oxide 400 mg tab(s) (MAG-OX) 400 mg ORAL BID - multivitamin-ferrous fumarate-folic acid 1 tablet (CENTRUM ) 1 tablet ORAL DAILY - insulin lispro injection (rapid acting) (HumaLOG) SUBCUTAN EOUS w MEALS - insulin lispro injection (rapid acting) (HumaLOG) SUBCUTAN EOUS AT BEDTIME - acetaminophen 1,000 mg tab(s) (TYLENOL) 1,000 mg ORAL q 6 H - tamsulosin ER 0.4 mg cap(s) (FLOMAX) 0.4 mg ORAL DAILY - metoprolol tartrate (short acting) 25 mg tab(s) (LOPRESSOR ) 25 mg ORAL q 12 H - magnesium sulfate in water 2 g in sterile water 50 ml 2 g INTRAVENOUS ONCE - amiodarone 200 mg tab(s) (PACERONE) 200 mg ORAL BID Objective PHYSICAL EXAM: BP 93/58 Pulse 76 Temp 36.7 ?C (98 ?F) (T emporal) Resp 18 Ht 170.2 cm (5' 7) Wt 80.2 kg (176 lb 11.2 oz) SpO2 95% BMI 27.68 kg/m? General: alert, in no acute distress Skin: warm and dry Heart: RRR Lungs: CTA b/l Abdomen: +bs, soft, non-tender Extremities: trace b/l lower extremity edema, SVG site cdi Sternum: stable, incision is covered with aquacell dressing ? DATA: WBC (k/uL) Date Value 06/09/2019 8.69 RBC (m/uL) Date Value 06/09/2019 3.83 (L) Hemoglobin (g/dL) Date Value 06/09/2019 11.8 (L) Hematocrit (%) Date Value 06/09/2019 36.3 (L) MCV (fL) Date Value 06/09/2019 94.8 MCH (pG) Date Value 06/09/2019 30.8 MCHC (g/dL) Date Value 06/09/2019 32.5 RDW-CV (%) Date Value 06/09/2019 12.9 Platelet Count (k/uL) Date Value 06/09/2019 162 MPV (fL) Date Value 06/09/2019 10.3 Glucose (mg/dL) Date Value 06/09/2019 121 (H) BUN (mg/dL) Date Value 06/09/2019 21 Creatinine (mg/dL) Date Value 06/09/2019 0.91 Sodium (mmol/L) Date Value 06/09/2019 138 Potassium (mmol/L) Date Value 06/09/2019 4.0 Chloride (mmol/L) Date Value 06/09/2019 101 CO2 (mmol/L) Date Value 06/09/2019 27 Protein, Total (g/dL) Date Value 02/27/2019 7.4 Albumin (g/dL) Date Value 02/27/2019 4.2 Calcium (mg/dL) Date Value 06/09/2019 8.5 Alkaline Phosphatase (U/L) Date Value 02/27/2019 52 Bilirubin, Total (mg/dL) Date Value 02/27/2019 0.3 AST (U/L) Date Value 02/27/2019 24 ALT (U/L) Date Value 02/27/2019 20 URINALYSIS pH, Arterial Date Value Ref Range Status 06/06/2019 7.353 7.350 - 7.450 pH units Final Specific [place], Ur Date Value Ref Range Status 06/05/2019 >1.030 (H) 1.005 - 1.030 Corrected Comment: Corrected on 06/05 AT 1845: Previously reported as 1.045 Glucose, Urine Date Value Ref Range Status 06/05/2019 Negative Negative mg/dL Final Bilirubin, Urine Date Value Ref Range Status 06/05/2019 Negative Negative Final Ketones, Urine Date Value Ref Range Status 06/05/2019 Negative Negative Final Hemoglobin/Blood,Ur Date Value Ref Range Status 06/05/2019 Negative Negative Final Protein, Urine Date Value Ref Range Status 06/05/2019 30 (A) Negative mg/dL Final WBC, Urine Date Value Ref Range Status 06/05/2019 Rare (A) Negative /HPF Final Assessment/Plan 73 year old male POD #3 s/p CABG x 3 -continue lopressor, statin, asa, and mag-ox -continue to increase ambulation, IS use, deep breathing, an d PO intake Atrial fibrillation: -amiodarone 200 mg PO bid -in NSR and rate controlled ? Hypertension: stable ? Urinary retention: resolved -flomax started -stable ? Pulmonary atelectasis: -continue IS and deep breathing -discontinue lasix ? Acute post -op hyperglycemia: -stable on sliding scale ? Acute post-op pain: -continue current PO regimen -chest tubes removed today ? DVT ppx: -SQ heparin, compression stockings, and asa ? GI ppx: -protonix D/C planning home with [facility] likely tomorrow vs Tuesday Procedure Note: EPW removal x2 atrial -betadine swabs applied to skin and suture surrounding wires -suture removed securing wires -x2 atrial EPWs removed without issue, no resistance -VSS per protocol Procedure Note: Chest tube removal x2 -betadine swabs applied to skin and suture surrounding chest tubes --suture removed securing tubes -2 chest tubes removed without issue or complication -CXR pending SIGNATURE: Feliberto Guaman PA-C PATIENT NAME: Jocelyn ernst DATE: June 09, 2019 TIME: 9:23 AM nursing prog on NURSING HNO ID: [id number] Normal 06-09-2019 [facility] Author: Cally Harper (Rn) [facility] Service: ? ([id number]) Author Type: Registered Nurse Type: Nursing Progress Note Filed: 06/09/2019 6:05 PM Note Text: Nursing Progress Note Patient Name: Jocelyn Loaiza [facility] Daily Note:0930 ROBERTO CARLOS removed chest tubes and wires at 0924. Co ntinuing to monitor vital signs. Pt c/o left shoulder pain after removal , declined any pian medication, will re assess in [address] essing dry and intact.Chest xray ordered. pt walked the pod early this am a nd did well. Pt has not yet had a bm but states I feel like it will be s oon. Will continue to assess. Tele is SR. Tele and safety maintained, call light within reach, will continue to assess. 1001 Xray at bedside. Pt states pain has subsided. VSS. tele and safety maintained, call light within reach. Will continue to assess . 1039 Pt remains on bedrest. Removed O2, pulse ox 94% on RA. Dr Turner and PA rounded. Pt states he is passing flatus, will continue to as sess. Pt states he is expecting company around 1130 today. Tele remai ns SR. Tele and safety maintained, call light within reach, will continu e to assess. 1301 Pt up in chair, vss. Tele is SR. Pt denies any pain. Pt has visitors. Tele and safety maintained, call light within reach, will co ntinue to assess. 1759 Pt up walked the pod with walker and stand by assist, o n RA. Pt did well. Pt c/o nose feeling stuffy paged ROBERTO CARLOS see new orders. Also gave Milk of Mag. Pt has not yet had BM. Pt c/o his butt feeling sore , sitting in chair. Redness noted, chair cushion ordered. Tele remains SR , VSS. This note was completed by: Cally Garland RN NURSING HNO ID: [id number] Normal 06-09-2019 [facility] Author: Tasha KarimiRn) [facility] Service: Nursing ([id number]) Author Type: Registered Nurse Type: Nursing Progress Note Filed: 06/09/2019 12:12 AM Note Text: Nursing Progress Note Patient Name: Jocelyn Loaiza [id number] Daily Note: 2331: mahamed Escalante). Pt converted into SNR. Currently on amino gtt 1mg. 2340: paged returned. Feliberto ordered to stop the amino gtt. A nd to restart amiodarone 200 mg PO BID. And to discontinued 12.5 mg metopr olol BID. This note was completed by: Tasha [facility] RN magnesium on 06-09 Magnesium [Mass/Vol] 2.0 1.7-2.6 mg/dL Normal 0 [facility] ([id number]) Comment: Performed By: #### CBC, PT, PTTAC #### [facility] [address] [place] [address] ecg complete on ECG COMPLETE NAME : JOCELYN LOAIZA Normal 05-26 [facility] PID : [id number] ([phone]) : 1945 Gender : Male Race : ORD : [id number] Procedure Date : Jun 09 2019 08:40:36 Edit Date : Jun 16 2019 19:33:31 Diagnosis:Sinus rhythm Left anterior fascicular block Probable left ventricular hypertrophy Diffuse ST elevation, consider pericarditis Abnormal ECG Confirmed by YESSICA MCLAIN MD ([id number]) on 06/16/2019 7:3 3:27 PM Ventricular Rate : 71 BPM Atrial Rate : 71 BPM P-R Interval : 157 ms QRS Duration : 108 ms Q-T Interval : 425 ms QTC Calculation(Bazett) : 462 ms P Sobieski : 24 degrees R Sobieski : -56 degrees T Sobieski : 41 degrees Test Reason : Post-OP Location : 400 : FVEKG PK2B Overread By : YESSICA MCLAIN MD Edited By : YESSICA MCLAIN MD Referred By : , Acquired by : HUGO MORENO consult on CONSULT HNO ID: [id number] Normal 06-09-2019 [facility] Author: Christiano Tapia ([id number]) Service: Electrophysiology Author Type: Physician Type: Consults Filed: 06/09/2019 1:29 PM Note Text: [facility]ARDI[facility]ULAR [facility]ICINE CONSULT NOTE Jocelyn Loaiza [id number] PRIMARY SERVICE: Internal Medicine CONSULTING SERVICE: Cardiovascular Medicine: General Consult s DATE OF ADMISSION: 06/05/2019 DATE OF CONSULT: 06/09/2019 REASON FOR CONSULT: New onset atrial fibrillation HISTORY OF PRESENT ILLNESS Jocelyn Loaiza is a 73 year old male, known to Dr. Browne in 2015 when he had an abnormal stress test treated medically as a nuclea r stress test came back normal. Recent dyspnea on exertion and a cath perf ormed by Dr. Dougherty revealed 3 vessel disease now s/p CABG x 3. EP is cons ulted for post op atrial fibrillation. Never had h/o Afib. HR 154 bpm last evening. Started on a Amiodarone drip and now on PO Amiodarone remain ing in SR. H/O HTN, HPL, HARLEY on CPAP, former smoker. ASSESSMENT AND RECOMMENDATIONS 1. Post op atrial fibrillation new onset: converted after st arting Amiodarone drip: - currently on Amiodarone 200mg BID - keep K > 4.0 and Mag >2.0 (on K and Mag supplements) - Chads vasc score: 3 (age, HTN, vasc dz) - inra op Echo: EF 55% 2. CAD, s/p CABG x 3 Dr. Tapia to see patient. Irene Alexander, DNP, EXPANDED DUTY DENTAL ASSISTANT.[facility]- Pager [phone] 06/09/2019 11:49 AM PAST MEDICAL HISTORY PAST MEDICAL HISTORY Diagnosis Date - Dyslipidemia - Dyspnea on exertion - Former smoker, stopped smoking in distant past - HTN (hypertension) - Kidney stones - HARLEY on CPAP - Rosacea PAST SURGICAL HISTORY Procedure Laterality Date - COLONOSCOP W/ OR W/O [facility] SPEC 02/15/2019 Colonoscopy - COLONOSCOPY 2006 - HERNIA REPAIR HX childhood and 2007 x3 - PAST SURGICAL HISTORY OF lithotripsy, multiple - PAST SURGICAL HISTORY OF laser prostate - TONSILLECTOMY HX FAMILY HISTORY FAMILY HISTORY Problem Relation Age of Onset - other (No CAD) Father - Cancer Mother , lung - Cancer Brother thyroid SOCIAL HISTORY Social History Tobacco Use - Smoking status: Former Smoker Packs/day: 1.00 Years: 7.00 Pack years: 7.00 Types: Cigarettes Last attempt to quit: 12/27/1976 Years since quittin.4 - Smokeless tobacco: Never Used - Tobacco comment: on and off Substance Use Topics - Alcohol use: Yes Frequency: 2-4 times a month Drinks per session: 1 or 2 Binge frequency: Never Comment: occasional - Drug use: No HOME MEDICATIONS atenolol (TENORMIN) 50 mg tablet Take 1 tablet by mouth once daily. aspirin, enteric coated (ASPIRIN, ENTERIC COATED) 81 mg EC t ablet Take 81 mg by mouth once daily. atorvastatin (LIPITOR) 10 mg tablet Take 10 mg by mouth once daily. nitroglycerin sublingual (NITROSTAT) 0.4 mg SL tablet Dissol ve 1 tablet under the tongue as needed for Chest Pain. If no pain relief call 911. perflutren lipid microspheres (DEFINITY) 1.1 mg/mL injection (to be provided with echo procedure) Inject 1.3 mL intravenously as directed. Administration Instructions: If no IV access, insert saline lock prior to administering contrast. Discontinue saline lock post exam. I f patient has central line or IVAD, may access for administration accordin g to line specific nursing protocol. Once exam is complete, flush line and de-access per line specific nursing protocol. Diluted IV Bolus: Dilute 1.3 ml of Definity with 8.7 ml of preservative-free saline. perflutren lipid microspheres (DEFINITY) 1.1 mg/mL injection (to be provided with echo procedure) Inject 1.3 mL intravenously as directed. Administration Instructions: If no IV access, insert saline lock prior to administering contrast. Discontinue saline lock post exam. I f patient has central line or IVAD, may access for administration accordin g to line specific nursing protocol. Once exam is complete, flush line and de-access per line specific nursing protocol. Diluted IV Bolus: Dilute 1.3 ml of Definity with 8.7 ml of preservative-free saline. sulfacetamide sodium-sulfur 9.8-4.8 % lotn Apply thin film t o affected area 1 times daily. INPATIENT MEDICATIONS Current Facility-Administered Medications Medication Dose Route Frequency - dextrose 40 % 15 g 15 g ORAL PRN Or - glucagon 1 mg injection (GLUCAGEN) 1 mg INTRAMUSCULAR PRN Or - dextrose 50% in water 25 mL syringe 12.5 g INTRAVENOUS PRN - albuterol 2.5 mg /3 mL (0.083 %) 2.5 mg (PROVENTIL) 2.5 mg INHALATION q 2 H PRN - aspirin 162 mg chewable tab(s) 162 mg ORAL/FEEDING TUBE DA MELO - ondansetron (PF) 4 mg injection (ZOFRAN) 4 mg INTRAVENOUS q 6 H PRN - oxyCODONE IR 5-10 mg tab(s) (ROXICODONE) 5-10 mg ORAL q 4 H PRN - heparin 5,000 Units injection 5,000 Units SUBCUTANEOUS q 1 2 H - atorvastatin 80 mg tab(s) (LIPITOR) 80 mg ORAL AT BEDTIME - pantoprazole DR 40 mg tab(s) (PROTONIX) 40 mg ORAL DAILY ( 6 AM) - docusate sodium 100 mg cap(s) (COLACE) 100 mg ORAL BID - aluminum-magnesium hydroxide-simethicone 200-200-20 mg/5 m L 30 mL (MAALOX,MYLANTA,MAG-AL PLUS) 30 mL ORAL q 4 H PRN - magnesium hydroxide 400 mg/5 mL 30-60 mL (MOM) 30-60 mL OR AL q 8 H PRN - bisacodyl 10 mg suppository (DULCOLAX) 10 mg RECTAL PRN - magnesium oxide 400 mg tab(s) (MAG-OX) 400 mg ORAL BID - multivitamin-ferrous fumarate-folic acid 1 tablet (CENTRUM ) 1 tablet ORAL DAILY - insulin lispro injection (rapid acting) (HumaLOG) SUBCUTAN EOUS w MEALS - insulin lispro injection (rapid acting) (HumaLOG) SUBCUTAN EOUS AT BEDTIME - acetaminophen 1,000 mg tab(s) (TYLENOL) 1,000 mg ORAL q 6 H - tamsulosin ER 0.4 mg cap(s) (FLOMAX) 0.4 mg ORAL DAILY - metoprolol tartrate (short acting) 25 mg tab(s) (LOPRESSOR ) 25 mg ORAL q 12 H - magnesium sulfate in water 2 g in sterile water 50 ml 2 g INTRAVENOUS ONCE - amiodarone 200 mg tab(s) (PACERONE) 200 mg ORAL BID ALLERGIES ALLERGIES No Known Allergies COMPLETE REVIEW OF SYSTEMS See HPI PHYSICAL EXAM BP 105/69 Pulse 71 Temp 36.9 ?C (98.4 ?F) (Temporal) R marisa 16 Ht 170.2 cm (5' 7) Wt 80.2 kg (176 lb 11.2 oz) SpO2 95% BMI 27.68 kg/m? General Appearance: No distress HEENT: PERRLA Lungs: + rales post bases Heart: Regular rate AND rhythm Abdomen: Soft, Round, Non-tender and Bowel sounds present Skin: Warm and Dry Musculoskeletal: 1+ bilateral LE edema Neurologic/Psychiatric: Oriented to time, place AND person DATA Laboratory: Recent Labs 06/09/19 0634 06/07/19 0440 06/06/19 1930 WBC 8.69 10.49 16.02* HB 11.8* 12.8* 13.8 HCT 36.3* 38.0* 41.3 PLT 162 190 210 Recent Labs 06/09/19 0634 06/07/19 0440 06/06/19 1930 NA 138 141 140 K 4.0 4.2 4.5 CO2 27 22* 21* BUN 21 14 12 CREAT 0.91 0.78 0.74 GLUC 121* 151* 164* MG 2.0 2.0 1.7 Recent Labs 06/06/19 1455 APTT 30.3 INR 1.3 Cholesterol, Total (mg/dL) Date Value 06/02/2019 153 HDL Cholesterol (mg/dL) Date Value 06/02/2019 32 LDL Cholesterol (mg/dL) Date Value 06/02/2019 92 Triglyceride (mg/dL) Date Value 06/02/2019 144 Hemoglobin A1C (%) Date Value 06/02/2019 5.2 73 y/o male s/p CABG with post op AF now in nsr after iv AMI ODARONE followed by po AMIODARONE. no change of Rx. DR CHRISTIANO TAPIA MD cbc and differential on 2019-06-09 Abs Baso <0.03 <0.11 Normal 06-09-2019 [facility] ([id number]) Comment: Performed By: #### CBC, PT, PTTAC #### [place] [address] Abs Merrick 1.08 <0.87 k/uL High 06-09-2019 [facility] ([id number]) Comment: Performed By: #### CBC, PT, PTTAC #### [place] [address] Abs Neut 6.23 1.45-7.50 k/uL Normal 06-09-2019 [facility] ([id number]) Comment: Performed By: #### CBC, PT, PTTAC #### [place] [address] Basophils/100 WBC (Bld) 0.2 % Normal 2019 [facility] (75790) Comment: Performed By: #### CBC, PT, PTTAC #### [place] [id number] DTYPE Auto Diff Normal 06-09-2019 [facility] (04624) Comment: Performed By: #### CBC, PT, PTTAC #### [address] Eosinophils (Bld) [#/Vol] 0.24 <0.46 k/uL Normal 05-26 [facility] ([id number]) Comment: Performed By: #### CBC, PT, PTTAC #### [place] [id number] Eosinophils/100 WBC (Bld) 2.8 % Normal 05-26 [facility] (70207) Comment: Performed By: #### CBC, PT, PTTAC #### [place] [id number] Erythrocyte distribution 12.9 11.5-15.0 % Normal 06-09 [facility] width (RBC) [Ratio] (33341) Comment: Performed By: #### CBC, PT, PTTAC #### [place] [id number] Hematocrit (Bld) [Volume 36.3 39.0-51.0 % Low 06-09 [facility] ([id number]) fraction] Comment: Performed By: #### CBC, PT, PTTAC #### [place] [id number] Hemoglobin (Bld) 11.8 13.0-17.0 g/dL Low 06-09-2019 [facility] [Mass/Vol] (84252) Comment: Performed By: #### CBC, PT, PTTAC #### [place] [id number] Lymphocytes (Bld) [#/Vol] 1.12 1.00-4.00 k/uL Normal 05-26 [facility] (63282) Comment: Performed By: #### CBC, PT, PTTAC #### [place] [address] Lymphocytes/100 WBC (Bld) 12.9 % Normal 05-26 [facility] (94424) Comment: Performed By: #### CBC, PT, PTTAC #### [place] [address] MCH (RBC) [Entitic mass] 30.8 26.0-34.0 pG Normal 06-09 [facility] ([id number]) Comment: Performed By: #### CBC, PT, PTTAC #### [place] [address] MCHC (RBC) [Mass/Vol] 32.5 30.5-36.0 g/dL Normal 06-09-19 [facility] (65331) Comment: Performed By: #### CBC, PT, PTTAC #### [place] [address] MCV (RBC) [Entitic vol] 94.8 80.0-100.0 fL Normal 06-09 [facility] (83154) Comment: Performed By: #### CBC, PT, PTTAC #### [address] [address] Monocytes/100 WBC (Bld) 12.4 % Normal 2019 [facility] (03368) Comment: Performed By: #### CBC, PT, PTTAC #### [place] [address] Neutrophils/100 WBC (Bld) 71.7 % Normal 05-26 [facility] (82310) Comment: Performed By: #### CBC, PT, PTTAC #### [address] [address] Platelet mean volume 10.3 9.0-12.7 fL Normal [facility] (31645) (Bld) [Entitic vol] Comment: Performed By: #### CBC, PT, PTTAC #### [place] [address] Platelets (Bld) [#/Vol] 162 150-400 k/uL Normal 2019 [facility] (78894) Comment: Performed By: #### CBC, PT, PTTAC #### [place] [address] RBC (Bld) [#/Vol] 3.83 4.20-6.00 m/uL Low 06-09-2019 [facility] (58762) Comment: Performed By: #### CBC, PT, PTTAC #### [place] [phone] WBC (Bld) [#/Vol] 8.69 3.70-11.00 k/uL Normal 06-09-2019 [facility] (40705) Comment: Performed By: #### CBC, PT, PTTAC #### [place] [address] basic metabolic panl on 2019-06-09 Anion gap [Moles/Vol] 10 9-18 mmol/L Normal 06-09-19 [facility] (03642) Comment: Performed By: #### CBC, PT, PTTAC #### [place] [address] Calcium [Mass/Vol] 8.5 8.5-10.5 mg/dL Normal 06-09-2019 [facility] (79395) Comment: Performed By: #### CBC, PT, PTTAC #### [place] [address] Chloride [Moles/Vol] 101 98-110 mmol/L Normal 0 [facility] (10411) Comment: Result Comment: Reviewed Performed By: #### CBC, PT, PTTAC #### [place] [address] CO2 [Moles/Vol] 27 23-32 mmol/L Normal 06-09-2019 [facility] (37735) Comment: Performed By: #### CBC, PT, PTTAC #### [place] [address] Creatinine [Mass/Vol] 0.91 0.70-1.40 mg/dL Normal 06-09-19 [facility] (65356) Comment: Performed By: #### CBC, PT, PTTAC #### [place] [address] eGFR- Amer. >60 >60 Normal 06-09-2019 [facility] (71425) Comment: Performed By: #### CBC, PT, PTTAC #### [place] [address] GFR/1.73 sq M >60 >60 mL/min/{1.73_m2} Normal 0 [facility] predicted among (000 00) non-blacks MDRD (S/P/Bld) [Vol rate/Area] Comment: Performed By: #### CBC, PT, PTTAC #### [place] [address] Glucose [Mass/Vol] 121 65-100 mg/dL High 06-09-2019 [facility] (62482) Comment: Performed By: #### CBC, PT, PTTAC #### [place] [address] Potassium [Moles/Vol] 4.0 3.5-5.0 mmol/L Normal 06-09-19 [facility] (86831) Comment: Performed By: #### CBC, PT, PTTAC #### [place] [address] Sodium [Moles/Vol] 138 135-146 mmol/L Normal 06-09-2019 [facility] (97600) Comment: Performed By: #### CBC, PT, PTTAC #### [place] [address] Urea nitrogen [Mass/Vol] 21 10-25 mg/dL Normal 06-09 [facility] (03785) Comment: Performed By: #### CBC, PT, PTTAC #### [facility] [address] [place] [id number] allied health on 14-06-14 [facility] HNO ID: [id number] Normal 020 [facility] Author: Holli KarimiRtBryon Francis ([id number]) Service: Radiology Author Type: Mill Attendant Type: Allied Health Filed: 06/09/2019 10:11 AM Note Text: Radiology Service Progress Note PATIENT NAME: Jocelyn Loaiza DATE OF SERVICE: June 09, 2019 TIME: 10:11 AM PATIENT IDENTITY VERIFICATION COMPLETED USING TWO (2) IDENTI FIERS: Name and Date of confirmed by patient verbally. PATIENT GENDER DATA: Male PATIENT RELEVANT IMPLANT DATA REVIEWED: Not Applicable RADIOLOGY DEPARTMENT: General X-ray: Exam(s) Completed: Ches t X-Ray PERIPHERAL IV DATA: Not applicable SIGNED BY: RT Antolin June 09, 2019 10:11 AM therapy nt on 06-08 THERAPY HNO ID: [id number] Normal 06-08-2019 [facility]: [facility] Therapy () Author Type: Milk Receiver Type: Therapy (PT/OT/Speech/Resp) Filed: 06/08/2019 2:51 PM Note Text: Attestation signed by Francisco J Post) Jesus Manuel at 06/08/2019 4:08 PM I reviewed and agree with the assessment as documented above . SIGNATURE: Francisco J Ken PT DATE: June 08, 2019 TIME: 4:08 PM Physical Therapy Treatment SERVICE DATE: 06/08/2019 SERVICE TIME: 1310 to 1335 ROOM: [place] [address] S/P CABG x 3 Recommended Discharge Disposition: Home PT Anticipated Discharge Needs: Physical Assist at Home;Equipme nt Physical Assist at Home for: Cleaning;Laundry;Transportation ;Shopping Recommended Discharge Equipment: (pt has own WW) PT Recommendations to Nursing: Ambulate with device;In halls ;With assist of 1 person Device: Wheeled Walker PT 6 Clicks Score: 19 Precautions/Activity Restrictions: Bed/Chair Alarm;Cardiac;F all Risk;Lines/Tubes/Drains;Sternal Precaution/Activity Restriction Comments: chest tube intact Isolation Type: None ASSESSMENT : Chest tube intact; pt would benefit from continued skilled t herapy for increased strengthening, transfer skills, progression of amb ulation, endurance and balance. . Patient Disposition at Start of Session: OOB in Chair;Call Abby ell in Reach;Chair Alarm Patient Disposition at End of Session: OOB in Chair;Call Bel l in Reach;Chair Alarm;Nursing Personnel Present Tolerated Full Session Physical Therapy Problem List: Decreased Strength;Decreased Activity Tolerance;Functional Mobility Impairment;Balance Impaired Patient /Caregiver Goals: Go Home Goals for Plan of Care: Able to perform HEP with: Independent Transfer supine to/from sit with: Independent Transfer sit to/from stand with: Independent Ambulate with: Independent Distance: 500 Device: No Device Ambulate up and down steps with: Supervision Number of steps: 7 Device: Rail Progress Toward Goals: Progressing as expected Rehab Potential: Good PLAN: Treatment Frequency (times per week): 3(and PRN visit) Current admission Treatment Interventions: Strengthening;Functional Mobility Training;Balance Training Plan of Care developed with: Patient TREATMENT INTERVENTIONS: Therapy Diagnosis: Reduced mobility-other Interventions Provided: Therapeutic Exercise (22902);Gait Tr сергей (53049) Therapeutic Exercise (70737) Treatment Minutes: 10 1 unit Skilled Intervention(s): Instruction in therapeutic exercise for increased circulation and strength of B LE Verbal and tactile cuing provided for pace and performance; pt performed slowly for maximum benefit Education in performing seated ex 2-3 x daily as indicated Gait Training (63211) Treatment Minutes: 15 1 unit Skilled Intervention(s): Instruction in sit to stand techniq ue with proper hand placement and body positioning at edge of bed/chair, In struction in stand to sit technique with LE's touching chair/bed and reac samy back for surface, Instruction in sequencing, gait pattern, Instructio n in correction of gait deviations and Instruction in use of equi pment, cues for sequence and pattern. Cueing for upright posture and pur sed lip breathing. Instructed pt to increase use of IS. Total Timed Code Treatment Minutes: 25 Total Treatment Time (minutes): 25 SUBJECTIVE: Current Hospital Course: Chart reviewed and no significant m edical updates relevant to therapy were noted Reason for Physical Therapy Consult : Pt had chest pain and is s/p CABG x 3. Relevant Past Medical History: HTN, HLD Patient Report: I 'd glad I can walk that far, it felt goo d Home Environment Patient Lives With: Spouse Assistance Available: PRN Entry To Home: Stairs;With Rail Number Of Stairs Into Home: 7 Number Of Stairs To Bed/Bath: 7; half bath first floor Stairs to Bed/Bath with: Unilateral Rail Tub/Shower Type: Tub shower Laundry: Basement Equipment Owned: Cane;Wheeled Walker;Shower Chair;Test Operator(st air lift, may also have sock aide at home ) Prior Functional Level: Within Functional Limits Prior Functional Level Comments: Per pt, Ind ADLs, IADLs, dr [place], amb Ind. OBJECTIVE: CURRENT FUNCTIONAL STATUS: Current Functional Mobility Assist Level Additional Informat ion Rolling Supine to Sit Sit to Supine Minimal Assistance Scooting Sit to Stand Minimal Assistance Stand to Sit Contact Guard Assistance Bed to Chair Toilet/Commode Gait Stand By Assistance Gait Device: Wheeled Walker Gait Distance (feet): 200 ft Stairs Curb Step Car Transfer General Gait Deviations: Alice decreased;Step length decre ased;Flexed trunk posture(02 sat decreased to 88%, pt placed back on 2 L 02 ) Balance: Static Standing;Dynamic Standing Static Standing Balance: Fair Able to stand unsupported with out UE support and without LOB for 1 - 2 min Dynamic Standing Balance: Fair Stand independently unsupport ed, weight shift, and reach ipsilaterally, LOB when crossing midline -HLM: 7: Walk 25 feet or more Please see discipline specific clinical documentation flowsh eet for complete details for this therapy evaluation/treatment. SIGNATURE: Melodie Anand PTA PATIENT NAME: Jocelyn viveros DATE: June 08, 2019 TIME: 2:48 PM THERAPY HNO ID: [id number] Normal 06-08-2019 [facility] Author: Esperanza (Ot/L) [facility] Service: Occupational Therapy ([id number]) Author Type: Occupational Therapist Type: Therapy (PT/OT/Speech/Resp) Filed: 06/08/2019 1:19 PM Note Text: Occupational Therapy Treatment SERVICE DATE: 06/08/2019 SERVICE TIME: 1217 to 1256 ROOM: [place] [address] Recommended Discharge Disposition: Home OT Anticipated Discharge Needs: Physical Assist at Home;Equipme nt Physical Assist at Home for: Cleaning;Laundry;Transportation ;Shopping Recommended Discharge Equipment: Test Operator;Long Handled Sponge OT Recommendations to Nursing: ADL?s in chair;To Bathroom fo r ADL?s /and or Toileting;OOB for meals;Transfer to Chair;With assist of 1 person Equipment: Wheeled Walker;Commode-Bedside(BSC over toilet fo r increased surface height ) OT 6 Clicks Score: 17 Precautions/Activity Restrictions: Fall Risk;Lines/Tubes/Drains;Cardiac;Sternal Precaution/Activity Restriction Comments: mobilize Isolation Type: None ASSESSMENT: Patient demonstrates progress with sternal precaution recall AND understanding as well as LE dressing and bathing skills this session; however, continues to present with deficits in activity tole estefany, functional mobility AND self care. As these deficits i mpact independence and safety with ADLs AND functional task completion, pt requires continued skilled OT intervention to address these deficits in order t o progress self care skills. Pt would benefit from Home OT services at discharge to aid in return to PLOF. Patient Disposition at Start of Session: Other: See Comment( ambulating with SLIPMAN back into room ) Patient Disposition at End of Session: OOB in Chair;Call Bel l in Reach;Nursing Personnel Present Tolerated Full Session Occupational Therapy Problem List: Safety Deficits;Impaired Self Care;Decreased Activity Tolerance;Functional Mobility Impair ment Patient /Caregiver Goals: Go Home Goals for Plan of Care: Grooming with: Supervision Upper Body Bathing with: Supervision Upper Body Dressing with: Supervision Lower Body Bathing with: Supervision Lower Body Dressing with: Supervision Toilet Hygiene with: Supervision Chair Transfer with: Supervision Toilet Transfer with: Supervision Tolerate (minutes of functional activity): 30 Functional Activity with: Supervision Progress Toward Goals: Progressing as expected Rehab Potential: Excellent PLAN: Treatment Frequency (times per week): 2(+1 prn visit) Current admission Treatment Interventions: Education;Self Care / Home Manageme nt;Energy Conservation Training;Functional Mobility Training Plan of Care developed with: Patient TREATMENT INTERVENTIONS: Therapy Diagnosis: Reduced mobility-other;Decreased activiti es of daily living (ADL) Interventions Provided: Self Mcfp Management (17780) Self Mcfp Management (80994) Treatment Minutes: 39 3 units Skilled Intervention(s): Cues provided for return to chair using FWW for balance duri ng brief functional mobility task in preparation to participate in AD ls seated in chair. CGA for balance and vcs for safe hand use/positioning with stand to sit with CGA to control descent safely. Pt educated on importance of adhering to sternal precautions for safe healing and how sternal precautions impact ADLs with emphasi s on benefits of wearing loose fitting clothing, having assist for Ernie hos e, use of adapted methods and/or AE to prevent deep trunk flexion and sitting to perform for energy conservation for sternal and cardiac prec aution adherence. Pt voiced and demonstrated good understanding dur ing ADL performance. Education and demo provided re: safe UE dressing methods wit h emphasis on benefits of wearing loose, button front clothing as well as method for adjusting clothing around back/shoulders without utilizing i ncreased IR for precaution adherence. Pt voiced good understanding. Education provided re: use of energy conservation strategies for improved safety, Ind AND adherence to cardiac precautions with emphas is on benefits of pacing, taking breaks, sitting to perform tasks, use of s hower chair, PLB technique AND use of long handled sponge. Pt voiced good understanding and reported he has shower chair to use at home. Pt demonstr ated good understanding of PLB method with min vcs for carry over. Provided instruction, cuing and facilitation for lower body dressing with emphasis on benefits of using figure 4 method, adapted figur e 4 with LE supported on bed d/t reduced ROM on LLE graft harvest site a nd/or use of AE for improved Ind, EC and to prevent deep front bending fo r p[recaution adherence. Pt able to don/doff R sock using figure 4 method with Sup and increased time for EC. Pt unable to perform figure 4 with LL E d/t reduced ROM and soreness at LLE graft harvest site. After education and demo, pt able to doff L sock with mail caller with Min A for AE placement and SBA to complete. SBA to don L sock with sock aide. Issued handouts of PLB method, energy conservation, AE and m odified ADL techniques for improved carry over at home. Total Timed Code Treatment Minutes: 39 Total Treatment Time (minutes): 39 SUBJECTIVE: Current Hospital Course: Chart reviewed and no significant m edical updates relevant to therapy were noted Reason for Occupational Therapy Consult: s/p CABG x 3 Relevant Past Medical History: HTN, HLD Patient Report: Pt AND SLIPMAN just returning from ambulating ar ound the unit upon OT's arrival with both reporting pt tolerated this acti vity well. Pt required CGA with FWW t/o task on unit. Home Environment Patient Lives With: Spouse Assistance Available: PRN Entry To Home: Stairs;With Rail Number Of Stairs Into Home: 7 Number Of Stairs To Bed/Bath: 7; half bath first floor Stairs to Bed/Bath with: Unilateral Rail Tub/Shower Type: Tub shower Laundry: Basement Equipment Owned: Cane;Wheeled Walker;Shower Chair;Test Operator(st air lift, may also have sock aide at home ) Prior Functional Level: Within Functional Limits Prior Functional Level Comments: Per pt, Ind ADLs, IADLs, dr [place], amb Ind. OBJECTIVE: Cognition/Communication Deficits Responsiveness: Alert Follows Commands: 3-step Commands CURRENT FUNCTIONAL STATUS: Current Activities of Daily Living Assist Level Feeding Modified Independent Grooming Supervision Bathing Upper Body Stand By Assistance Bathing Lower Body Minimal Assistance Dressing Upper Body Moderate Assistance Dressing Lower Body Minimal Assistance Toileting Total Assistance Instrumental Activities of Daily Living Assist Level Meal/Beverage Prep Light Cleaning Laundry Medication Management with Strategies Functional Mobility Assist Level Rolling Supine to Sit Sit to Supine Scooting Supervision Sit to Stand Minimal Assistance Stand to Sit Contact Guard Assistance Bed to Chair Contact Guard Assistance Toilet/Commode Functional Mobility Contact Guard Assistance Wheeled Walker Functional Mobility Comments: in room to chair, steady, no L OB Balance: Static Sitting;Dynamic Sitting;Static Standing;Hamida hugo Standing Static Sitting Balance: Normal Able to maintain balance agai nst maximal resistance Dynamic Sitting Balance: Good Able to sit unsupported AND we ight shift across midline moderately Static Standing Balance: Fair- Requires Min A or UE support in order to stand without LOB Dynamic Standing Balance: Poor+(CGA) Able to stand with Min A and reach ipsilaterally, unable to weight shift(CGA) Activity Tolerance: Sitting Activity Sitting Activity: in chair/ADLs Sitting Activity Tolerance (in minutes): 20 Please see discipline specific clinical documentation [facility] for complete details for this therapy evaluation/treatment. SIGNATURE: Esperanza Tucker OT/L PATIENT NAME: Jocelyn Loaiza DATE: June 08, 2019 TIME: 1:06 PM THERAPY HNO ID: [id number] Normal 06-08-2019 [facility]: [facility] Service: Physical Therapy ([id number]) Author Type: Milk Receiver Type: Therapy (PT/OT/Speech/Resp) Filed: 06/08/2019 10:52 AM Note Text: Attestation signed by Sharee Puri at 06/08/2019 12:31 PM I reviewed and agree with the documentation corresponding to this therapy visit. SIGNATURE: Sharee Puri PT DATE: June 08, 2019 TIME: 12:31 PM PHYSICAL THERAPY MISSED VISIT SERVICE DATE: 06/08/2019 SERVICE TIME: 1000 to 1000 ROOM: [place] [address] Attempted Treatment. Patient not seen due to (pt returning t o bed; requested p.m. session). SIGNATURE: Melodie Anand [facility] PATIENT NAME: Jocelyn Hollins jackeline DATE: June 08, 2019 TIME: 10:52 AM pt ed on 2019-06-08 PT ED HNO ID: [id number] Normal 06-08-2019 [facility] Author: Krystin Peterson [place] ([id number]) Service: Cardiac Rehab Author Type: Registered Nurse Type: Patient Education Filed: 06/08/2019 2:09 PM Note Text: CARDIAC REHABILITATION PATIENT EDUCATION PROGRESS NOTE Name: Jocelyn Loaiza Date of Service: 06/08/2019 Time of Service: 2:07 PM ASSESSMENT: Risk Factors Identified: Gender Hyperlipidemia Hypertension Smoker: # of packs per day: 1. Total Years of Smokin. Reformed Smoker: Year Quit: n/a. RECOMMENDATIONS: Patient interested in Phase II Outpatient Cardiac Rehab: Yes . Facility Preferred: [facility] DIAGNOSIS: Open Heart Surgery: CABG Open Heart Surgery Teaching Points: -Basic Anatomy and Disease Process -Personal Modifiable Risk Factor Identification -Activity/Physical Exercise Recommendations -When patient should call provider -Outpatient Cardiac Rehabilitation READINESS TO LEARN: Cognitive Ability: Alert and Oriented Motivation to Learn: Interested Family Support: None - Unavailable/disinterested Instruction Provided To: Patient Patient Learns Best By: Individual Instruction, Written Inst ruction - Hand-outs and Verbal Instruction Factors Affecting Learning: None Physical Limitations Affecting Learning: None LEARNING RESPONSE: Method Of Instruction: Individual instruction Patient/Family Response: Verbalizes understanding of: all re commendations Follow-up Plan: No further educational needs identified at t his time. Instructional Aids Used: Anatomical Model/Drawing Cardiac Rehabilitation Brochure Educational Binder [facility] Cardiac Rehab Programs Outpatient Diet/Nutrition Class Invitation Signature: Krystin peterson RN Pager: harjit Date: June 08, 2019 Time: 2:07 PM progress on 2019-05 PROGRESS HNO ID: [id number] Normal 06-08-2019 [facility] Author: Feliberto Guaman (Pa) ([id number]) Service: Thoracic Surgery Author Type: Physician Or Director Type: Progress Notes Filed: 06/08/2019 11:12 AM Note Text: Cardiac Surgery PROGRESS NOTE EVALUATION DATE: 06/08/2019 EVALUATION TIME: 11:01 AM PRIMARY SERVICE: Cardiac Surgery Subjective INTERVAL HPI: 73 year old male POD #2 s/p CABG x 3 Patient underwent CABG x 3 on 04/05/2020. The procedure went well and was without complications. He was transported to the ICU for pos t-op care. No significant events while in the ICU and he was deemed approp riate for transfer to [facility] on POD #1. Patient reports feeling much better today compared to yester day. Pain is well controlled with current PO regimen. He ambulated twice yesterday after transfer. He is eating well, passing flatus, no BM yet . He slept well last PM. He is urinating on his own but he reports some difficulty. He is using IS multiple times an hour. He denies fever, chills,chest pain, sob, n/v, body aches, or calf tenderness PERTINENT ROS: As above MEDICATIONS: Current Facility-Administered Medications Medication Dose Route Frequency - dextrose 40 % 15 g 15 g ORAL PRN Or - glucagon 1 mg injection (GLUCAGEN) 1 mg INTRAMUSCULAR PRN Or - dextrose 50% in water 25 mL syringe 12.5 g INTRAVENOUS PRN - albuterol 2.5 mg /3 mL (0.083 %) 2.5 mg (PROVENTIL) 2.5 mg INHALATION q 2 H PRN - aspirin 162 mg chewable tab(s) 162 mg ORAL/FEEDING TUBE DA MELO - ondansetron (PF) 4 mg injection (ZOFRAN) 4 mg INTRAVENOUS q 6 H PRN - oxyCODONE IR 5-10 mg tab(s) (ROXICODONE) 5-10 mg ORAL q 4 H PRN - heparin 5,000 Units injection 5,000 Units SUBCUTANEOUS q 1 2 H - atorvastatin 80 mg tab(s) (LIPITOR) 80 mg ORAL AT BEDTIME - pantoprazole DR 40 mg tab(s) (PROTONIX) 40 mg ORAL DAILY ( 6 AM) - metoprolol tartrate (short acting) 12.5 mg tab(s) (LOPRESS OR) 12.5 mg ORAL q 12 H - docusate sodium 100 mg cap(s) (COLACE) 100 mg ORAL BID - aluminum-magnesium hydroxide-simethicone 200-200-20 mg/5 m L 30 mL (MAALOX,MYLANTA,MAG-AL PLUS) 30 mL ORAL q 4 H PRN - [START ON 06/09/2019] magnesium hydroxide 400 mg/5 mL 30-60 mL (MOM) 30-60 mL ORAL q 8 H PRN - [START ON 06/09/2019] bisacodyl 10 mg suppository (DULCOLAX ) 10 mg RECTAL PRN - magnesium oxide 400 mg tab(s) (MAG-OX) 400 mg ORAL BID - potassium chloride ER 20 mEq tab(s) (K-DUR, KLOR-CON) 20 m Eq ORAL DAILY - multivitamin-ferrous fumarate-folic acid 1 tablet (CENTRUM ) 1 tablet ORAL DAILY - furosemide 20 mg tab(s) (LASIX) 20 mg ORAL DAILY - insulin lispro injection (rapid acting) (HumaLOG) SUBCUTAN EOUS w MEALS - insulin lispro injection (rapid acting) (HumaLOG) SUBCUTAN EOUS AT BEDTIME - acetaminophen 1,000 mg tab(s) (TYLENOL) 1,000 mg ORAL q 6 H - tamsulosin ER 0.4 mg cap(s) (FLOMAX) 0.4 mg ORAL DAILY Objective PHYSICAL EXAM: BP 108/62 Pulse 75 Temp 36.4 ?C (97.6 ?F) (Temporal) Resp 19 Ht 170.2 cm (5' 7) Wt 79.8 kg (176 lb) SpO2 93% BMI 27.57 kg/m? General: alert, in no acute distress Skin: warm and dry Heart: RRR Lungs: CTA b/l Abdomen: +bs, soft, non-tender Extremities: trace - 1+ b/l lower extremity edema, SVG site cdi Sternum: stable, incision is covered with aquacell dressing DATA: WBC (k/uL) Date Value 06/07/2019 10.49 RBC (m/uL) Date Value 06/07/2019 4.16 (L) Hemoglobin (g/dL) Date Value 06/07/2019 12.8 (L) Hematocrit (%) Date Value 06/07/2019 38.0 (L) MCV (fL) Date Value 06/07/2019 91.3 MCH (pG) Date Value 06/07/2019 30.8 MCHC (g/dL) Date Value 06/07/2019 33.7 RDW-CV (%) Date Value 06/07/2019 12.7 Platelet Count (k/uL) Date Value 06/07/2019 190 MPV (fL) Date Value 06/07/2019 9.8 Glucose (mg/dL) Date Value 06/07/2019 151 (H) BUN (mg/dL) Date Value 06/07/2019 14 Creatinine (mg/dL) Date Value 06/07/2019 0.78 Sodium (mmol/L) Date Value 06/07/2019 141 Potassium (mmol/L) Date Value 06/07/2019 4.2 Chloride (mmol/L) Date Value 06/07/2019 108 CO2 (mmol/L) Date Value 06/07/2019 22 (L) Protein, Total (g/dL) Date Value 02/27/2019 7.4 Albumin (g/dL) Date Value 02/27/2019 4.2 Calcium (mg/dL) Date Value 06/07/2019 8.1 (L) Alkaline Phosphatase (U/L) Date Value 02/27/2019 52 Bilirubin, Total (mg/dL) Date Value 02/27/2019 0.3 AST (U/L) Date Value 02/27/2019 24 ALT (U/L) Date Value 02/27/2019 20 URINALYSIS pH, Arterial Date Value Ref Range Status 06/06/2019 7.353 7.350 - 7.450 pH units Final Specific [place], Ur Date Value Ref Range Status 06/05/2019 >1.030 (H) 1.005 - 1.030 Corrected Comment: Corrected on 06/05 AT 1845: Previously reported as 1.045 Glucose, Urine Date Value Ref Range Status 06/05/2019 Negative Negative mg/dL Final Bilirubin, Urine Date Value Ref Range Status 06/05/2019 Negative Negative Final Ketones, Urine Date Value Ref Range Status 06/05/2019 Negative Negative Final Hemoglobin/Blood,Ur Date Value Ref Range Status 06/05/2019 Negative Negative Final Protein, Urine Date Value Ref Range Status 06/05/2019 30 (A) Negative mg/dL Final WBC, Urine Date Value Ref Range Status 06/05/2019 Rare (A) Negative /HPF Final Assessment/Plan 73 year old male POD #2 s/p CABG x 3 -continue lopressor, statin, asa, and mag-ox -continue to increase ambulation, IS use, deep breathing, an d PO intake Hypertension: stable Urinary retention: -flomax started -stable Pulmonary atelectasis: -continue IS and deep breathing -lasix 20 mg PO daily Acute post -op hyperglycemia: -stable on sliding scale Acute post-op pain: -continue current PO regimen -chest tubes will likely be removed tomorrow DVT ppx: -SQ heparin, compression stockings, and asa GI ppx: -protonix SIGNATURE: Feliberto Guaman PA-C PATIENT NAME: Jocelyn ernst DATE: June 08, 2019 TIME: 11:01 AM nursing prog on NURSING HNO ID: [id number] Normal 06-08-2019 [facility] Author: Teresa (Rn) [facility] Service: ? ([id number]) Author Type: Registered Nurse Type: Nursing Progress Note Filed: 06/08/2019 7:58 PM Note Text: Nursing Progress Note Patient Name: Jocelyn Loaiza Patient Location: [address] Daily Note:09:30 Patient alert/oriented times three. VSS. Te le shows SR. Lungs clear, diminished bases. O 2 sat 98% 2 liters nc. No d istress noted. Midsternal dressing dry/intact. Abd soft nontender. + bs. Chest tube intact. Drains seroussang drainage. Feliberto AZEVEDO aware of f requency urine minimal output on nights. No pedal edema noted 2+ peda l pulses. Teds on. Patient up in chair. 10:00Patient resting quietly in bed. Flomax started. Call li ght within reach. 12:30 Patient ambulated up hallway with PCNA. Gait steady no distress noted.O 2 sat 100% ra. Assessment unchanged. 12:45 OT into assess patient. Assessment unchanged. Voids pe r urinal. 13:00 Patient ambulated with Cardiac rehab. Up in chair. Ass essment unchanged Call light within reach.. 16:25 Patient medicated for incisional pain. Patient assiste d back to bed. Voids yellow urine per urinal. No distress noted. Call light within reach. 17:08 Patient went into afib 113. Feliberto Acrobatic Rigger notified. STAT Ek g . BP 118/64. Patient denies any palpitations or dinariness. Order s given @ this time. Feliberto HEEL REDUCER on uint updated on condition. Tele shows afib 120 17:30 Mag bolus infusing. Ekg completed. 18:35 Dr Dougherty notified afib 120-130' after mag bolus and p. o. Amio and 12.5 p.o. lopressor given earlier. Orders given to give amio darone bolus followed by Amiodarone gtt. Dr Bangura consult placed BP 118/ 74. Patient asymptomatic. Patient resting quietly in bed @ this time.This note was completed by: Teresa Goodwin RN ecg complete on ECG COMPLETE NAME : JOCELYN LOAIZA Normal 05-26 [facility] PID : [id number] ([phone]) : 1945 Gender : Male Race : ORD : [id number] Procedure Date : Jun 08 2019 17:49:32 Edit Date : Jun 17 2019 15:41:01 Diagnosis:Atrial fibrillation with rapid ventricular respons e Left anterior fascicular block Probable left ventricular hypertrophy Minimal ST elevation diffuse leads Borderline prolonged QT interval Abnormal ECG Confirmed by YESSICA MCLAIN MD ([id number]) on 06/17/2019 3:4 1:00 PM Ventricular Rate : 126 BPM Atrial Rate : 175 BPM P-R Interval : 158 ms QRS Duration : 107 ms Q-T Interval : 333 ms QTC Calculation(Bazett) : 483 ms R Sobieski : -65 degrees T Sobieski : 69 degrees Test Reason : Arrhythmia Location : [address] Overread By : YESSICA MCLAIN MD Edited By : YESSICA MCLAIN MD Referred By : , Acquired by : JES SOLORIO case managem on CASE MANAGEM HNO ID: [id number] Normal 06-08-19 [facility] Author: Mirta Newman (Rn)_ [facility] Humphrey ([id number]) Service: Case Management Author Type: Registered Nurse Type: Care Mgt Progress Note Filed: 06/08/2019 9:51 AM Note Text: CARE MANAGEMENT PROGRESS NOTE SERVICE DATE: 06/08/2019 SERVICE TIME: 9:45am LOS: 3 days Needs Prior to Discharge: Home Care Order;To Be Determined Patient transferred to [facility], this TCC met with patient to giuliana maciel discharge planning and home health care choices, in which, neisha main chose, [facility], as well as, [facility]., re ferrals sent, TCC will continue to follow for dc planning as indicated. Addendum: Lead [facility] has accepted, patient updated. SIGNATURE: Mirta Humphrey RN PATIENT NAME: Jocelyn Loaiza DATE: June 08, 2019 TIME: 9:47 AM PAGER/CONTACT #: [phone] xr chest 1v frontal port on 2019-06-07 XR CHEST 1V * * *Final Report* * * Normal 06-07 [facility] FRONTAL PORT DATE OF EXAM: Jun 07 2019 6:58AM Hospital ([id number]) FVX [id number] - XR CHEST 1V FRONTAL PORT / PROCEDURE REASON: Post-operative / post-procedure assessment , asymptomatic * * * * Physician Interpretation * * * * EXAMINATION: CHEST RADIOGRAPH (PORTABLE SINGLE VIEW AP) Exam Date/Time: 06/07/2019 6:58 AM CLINICAL HISTORY: Post-operative / post-procedure assessment , asymptomatic MQ: [id number]_5 Comparison: Chest x-ray 06/06/2019 RESULT: Lines, tubes, and devices: Right-sided Richland-Gracie catheter. T ip appears to be in the inferior right pulmonary artery. Left-sided rossana st tube. Mediastinal drain. Sternotomy wires. Lungs and pleura: No pneumothorax. Hazy opacities in the ezequiel g bases bilaterally, right greater left. No large pleural effusions. Cardiomediastinal silhouette: Cardiomegaly. Other: . IMPRESSION: 1. Right-sided Richland-Gracie catheter. Tip appears to be in the inferior right pulmonary artery. 2. Hazy atelectasis/infiltrates in lung bases bilaterally, r ight greater than left. Anthropometrist: PSCB Transcribe Date/Time: Jun 07 2019 7:07A Dictated by : GT WATSON MD This examination was interpreted and the report reviewed and electronically signed by: GT WATSON MD on Jun 07 2019 7:09AM EST [id number] therapy nt on 06-07 THERAPY NT HNO ID: [id number] Normal 06-07-2019 [facility] Author: Yumiko (Pt) [facility] Service: Physical Therapy ([id number]) Author Type: Physical Therapist Type: Therapy (PT/OT/Speech/Resp) Filed: 06/07/2019 2:38 PM Note Text: Physical Therapy Evaluation SERVICE DATE: 06/07/2019 SERVICE TIME: 1400 to 1423 ROOM: [place] [address] Recommended Discharge Disposition: Home PT Anticipated Discharge Needs: Physical Assist at Home;Equipme nt Physical Assist at Home for: Cleaning;Laundry;Transportation ;Shopping PT Recommendations to Nursing: Ambulate with device;In halls ;With assist of 1 person Device: Wheeled Walker PT 6 Clicks Score: 18 Precautions/Activity Restrictions: Fall Risk;Lines/Tubes/Drains;Cardiac;Sternal Precaution/Activity Restriction Comments: mobilize Isolation Type: None ASSESSMENT : Patient's impairments as related to Physical Therapy include decreased strength, impaired balance and trunk control, and impaired s afety with functional mobility. Pt required close monitoring of vital s igns with activity due to potential fluctuations with activity. Pt req uires skilled PT services to address functional mobility progression and d osing, and balance training for safety to decrease risk of falls in ord er to improve safety and independence with functional mobility. Patient would benefit from home PT to progress strength, end urance, and safe functional mobility. Patient has adequate support and s ocial structure for reasonably safe discharge home at [facility] Patient Disposition at Start of Session: OOB in Chair Patient Disposition at End of Session: Supine in Bed;Call Be ll in Reach Tolerated Full Session Physical Therapy Problem List: Decreased Strength;Decreased Activity Tolerance;Functional Mobility Impairment;Balance Impaired Patient /Caregiver Goals: Go Home Goals for Plan of Care: Able to perform HEP with: Independent Transfer supine to/from sit with: Independent Transfer sit to/from stand with: Independent Ambulate with: Independent Distance: 500 Device: No Device Ambulate up and down steps with: Supervision Number of steps: 7 Device: Rail Progress Toward Goals: Progressing as expected Rehab Potential: Good PLAN: Treatment Frequency (times per week): 3(and PRN visit) Current admission Treatment Interventions: Strengthening;Functional Mobility Training;Balance Training Plan of Care developed with: Patient TREATMENT INTERVENTIONS: Therapy Diagnosis: Reduced mobility-other Interventions Provided: Evaluation;Gait Training (40260) $ Evaluation-Moderate (44492) Billed Units: 1 unit Gait Training (08622) Treatment Minutes: 8 1 unit Skilled Intervention(s): Instruction in sit to stand techniq ue with proper hand placement and body positioning at edge of bed/chair, In struction in stand to sit technique with LE's touching chair/bed and reac samy back for surface, Instruction in sequencing, gait pattern, Instructio n in correction of gait deviations, Instruction in use of equipme nt, cues for sequence and pattern and Vital signs were monitored by PT. P t was on room air at beginning of PT session. With amb, O2 saturation decr eased to 86% with a questionable historian. Pt returned to bed and 2 L of O2 was applied. O2 saturation improved to 94%. RN aware. Education on role of PT, PT POC, and benefits of out of bed activity. Total Timed Code Treatment Minutes: 8 Total Treatment Time (minutes): 23 SUBJECTIVE: Current Hospital Course: Chart reviewed; see below Reason for Physical Therapy Consult : Pt had chest pain and is s/p CABG x 3. Relevant Past Medical History: HTN, HLD Patient Report: I would like to go back to bed. Home Environment Patient Lives With: Spouse Assistance Available: PRN Entry To Home: Stairs;With Rail Number Of Stairs Into Home: 7 Number Of Stairs To Bed/Bath: 7; half bath first floor Stairs to Bed/Bath with: Unilateral Rail Tub/Shower Type: Tub shower Laundry: Basement Equipment Owned: Cane;Wheeled Walker;Shower Chair(Chair lift both sets of stairs) Prior Functional Level: Within Functional Limits Prior Functional Level Comments: Per pt, Ind ADLs, IADLs, dr salinas, amb Ind. OBJECTIVE: CURRENT FUNCTIONAL STATUS: Current Functional Mobility Assist Level Additional Informat ion Rolling Supine to Sit Sit to Supine Minimal Assistance Scooting Sit to Stand Contact Guard Assistance Stand to Sit Contact Guard Assistance Bed to Chair Toilet/Commode Gait Contact Guard Assistance Gait Device: Wheeled Walker Gait Distance (feet): 100 Stairs Curb Step Car Transfer General Gait Deviations: Wide base of support;Step length decreased;Alice decreased(O2 sat 86% on RA. 2 L of O2 appl ied after amb.) Balance: Static Standing;Dynamic Standing Static Standing Balance: Fair Able to stand unsupported with out UE support and without LOB for 1 - 2 min Dynamic Standing Balance: Fair Stand independently unsupport ed, weight shift, and reach ipsilaterally, LOB when crossing midline -HLM: 7: Walk 25 feet or more Please see discipline specific clinical documentation [facility] for complete details for this therapy evaluation/treatment. SIGNATURE: Yumiko Dailey PT PATIENT NAME: Jocelyn Loaiza DATE: June 07, 2019 TIME: 2:36 PM THERAPY NT HNO ID: [id number] Normal 06-07-2019 [place] Author: Crystal ([facility] Service: Occupational Therapy ([id number]) Author Type: Occupational Therapist Type: Therapy (PT/OT/Speech/Resp) Filed: 06/07/2019 8:57 AM Note Text: Occupational Therapy Evaluation SERVICE DATE: 06/07/2019 SERVICE TIME: 0745 to 0808 ROOM: [place] [address] Recommended Discharge Disposition: Home OT Anticipated Discharge Needs: Physical Assist at Home;Equipme nt Physical Assist at Home for: Cleaning;Laundry;Transportation ;Shopping Recommended Discharge Equipment: To Be Determined OT Recommendations to Nursing: ADL?s in chair;With assist of 1 person OT 6 Clicks Score: 15 Precautions/Activity Restrictions: Fall Risk;Lines/Tubes/Drains;Cardiac;Sternal Precaution/Activity Restriction Comments: mobilize Isolation Type: None ASSESSMENT: Pt presents with impaired self care task performance, decrea sed functional mobility, decreased strength/endurance, decreased safety. Patient would benefit from skilled OT services to increase a ctivity tolerance, independence and safety with ADL performance, ins truction of energy conservation techniques, provide cognitive strategies , increase safety, and improve balance during functional mobility tasks . Patient may benefit from Home Occupational Therapy to contin ue to progress functional mobility and ADL skills. Patient has adequate sup port and social structure for reasonably safe [facility]. Patient requires continued monitoring of vital signs due to potential fluctuations with activity, functional mobility, and ADL's. Therapy will instruct/educate the patient regarding safe dosing of activi ty. Patient Disposition at Start of Session: OOB in Chair;Call B ell in Reach;Chair Alarm Patient Disposition at End of Session: Supine in Bed;Call Be ll in Reach;Nursing Personnel Present Tolerated Full Session Occupational Therapy Problem List: Safety Deficits;Impaired Self Care;Decreased Activity Tolerance;Functional Mobility Impair ment Patient /Caregiver Goals: Go Home Goals for Plan of Care: Grooming with: Supervision Upper Body Bathing with: Supervision Upper Body Dressing with: Supervision Lower Body Bathing with: Supervision Lower Body Dressing with: Supervision Toilet Hygiene with: Supervision Chair Transfer with: Supervision Toilet Transfer with: Supervision Tolerate (minutes of functional activity): 30 Functional Activity with: Supervision Rehab Potential: Good PLAN: Treatment Frequency (times per week): 2(+1 prn visit) Current admission Treatment Interventions: Education;Self Care / Home Manageme nt;Energy Conservation Training;Functional Mobility Training Plan of Care developed with: Patient TREATMENT INTERVENTIONS: Therapy Diagnosis: Reduced mobility-other;Decreased activiti es of daily living (ADL) Interventions Provided: Evaluation;Self Mcfp Management (38430) $ Evaluation-Moderate (24296) Billed Units: 1 unit Self Mcfp Management (98091) Treatment Minutes: 8 1 unit Skilled Intervention(s): Education in sternal precautions re lating to ADLs and IADLs with patient verbalizing understanding. Pt re quires min verbal cues to maintain during session and would benefit fro m further review and reinforcement. Min cues required for log roll faustina hnique with max assist required to return to bed. OT provides pt with broderick ndout reviewing sternal precautions and log roll technique to main tain precautions during bed mobility. Pt verbalizes understanding . Vitals monitored and remaining stable throughout session. Pt positioned for comfort with needs in reach. ] Total Timed Code Treatment Minutes: 8 Total Treatment Time (minutes): 23 SUBJECTIVE: Current Hospital Course: Chart reviewed; see below Reason for Occupational Therapy Consult: s/p CABG x 3 Relevant Past Medical History: HTN, HLD Patient Report: Oh, I will have to sit in the back seat. Home Environment Patient Lives With: Spouse Assistance Available: PRN Entry To Home: Stairs;With Rail Number Of Stairs Into Home: 7 Number Of Stairs To Bed/Bath: 7; half bath first floor Stairs to Bed/Bath with: Unilateral Rail Tub/Shower Type: Tub shower Laundry: Basement Equipment Owned: Cane;Wheeled Walker;Shower Chair(Chair lift both sets of stairs) Prior Functional Level: Within Functional Limits Prior Functional Level Comments: Per pt, Ind ADLs, IADLs, dr salinas, amb Ind. OBJECTIVE: Cognition/Communication Deficits Responsiveness: Alert Follows Commands: 3-step Commands CURRENT FUNCTIONAL STATUS: Current Activities of Daily Living Assist Level Feeding Modified Independent Grooming Stand By Assistance Bathing Upper Body Stand By Assistance Bathing Lower Body Maximal Assistance Dressing Upper Body Moderate Assistance Dressing Lower Body Maximal Assistance Toileting Total Assistance Instrumental Activities of Daily Living Assist Level Meal/Beverage Prep Light Cleaning Laundry Medication Management with Strategies Functional Mobility Assist Level Rolling Supine to Sit Sit to Supine Scooting Sit to Stand Minimal Assistance Stand to Sit Minimal Assistance Bed to Chair Minimal Assistance Toilet/Commode Functional Mobility Minimal Assistance Hand Held Assist Please see discipline specific clinical documentation [facility] for complete details for this therapy evaluation/treatment. SIGNATURE: Crystal Mello OTR/L PATIENT NAME: Jocelyn ernst DATE: June 07, 2019 TIME: 8:55 AM progress on 2019-05 PROGRESS HNO ID: [id number] Normal 06-07-2019 [place] [facility] Service: Critical Care ([id number]) Author Type: Anesthesiologist Type: Progress Notes Filed: 06/07/2019 5:29 PM Note Text: SURGICAL INTENSIVE CARE UNIT PROGRESS NOTE Jocelyn Loaiza [id number] Admit Date: 06/05/2019 11:22 AM Combat 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 Medina Surgeon: Dr Turner Operation: CABGx3 ? REASON FOR ICU ADMISSION: Postoperative monitoring and resus citation ? Assessment AND Plan: Jocelyn Loaiza is a 73 year old male with a h/o HARLEY on CPAP , HTN, HLD, who was admitted for CABGx3. Patient initially had symptoms of chest pain and SOB and was found to have CAD on CT scan and was advised to have a heart cath performed which was done at [facility]. 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 He was ad mitted on 06/06 for CABGx3. He was sent to the SICU for monitoring. ? Neurological Assessment: Awake and alert Plan: - DC fentanyl - Oxycodone PRN ? Cardiovascular Assessment: S/p CABGx3 Plan: - Maintain MAPs >75 - Aspirin - Atorvastatin - Off pressors ? Hematological Assessment: No signs of active bleeding Plan: - No indication for transfusion at this time ? Pulmonary Assessment: No issues Plan: - Encourage IS while awake - Bronchopulmonary hygiene when awake ? Gastrointestinal Assessment: No issues Plan: - Continue diet - Zofran as needed - Protonix daily ? Renal / Fluids / Electrolytes Assessment: No issues Plan: - IVF: LR at 75cc/hr - Maintain K>4, Mg>2 - Continue bailey catheter for accurate monitoring in a criti ileana ill patient ? Infectious Diseases Assessment: No signs of active infection Plan: - No abx ? Endocrine Assessment: No history of diabetes Plan: - DC insulin gtt ? Musculoskeletal Assessment: No issues Plan: - OOB as tolerated - PT/OT, progressive mobility ? Prophylaxis - DVT prophylaxis: SCDs, SQH - GI prophylaxis: Protonix - Frequent turns ? Lines / Drains / Vascular Access - PIV - NGT - Arterial line in L radial artery - RIJ - Bailey - Chest tube ? Disposition and Activity - Transfer to [facility] ? Care discussed with Attending Dr. Medina at 11:00 on 06/07/2019 = SUBJECTIVE No complaints, pain controlled, no N/V, ambulating, mentatin g well. MAJOR ISSUES: None VITAL SIGNS Temp: 37.8 ?C (100 ?F) Pulse: 80 BP: 115/60 MAP Non Invasive (Mean Arterial Pressure): 77 CVP: 4 Resp: 2 5 SpO2: 93 % Not applicable FLUID BALANCE: Intake/Output Summary (Last 24 hours) at 06/07/2019 0757 Last data filed at 06/07/2019 0719 Gross per 24 hour Intake 2991.1 ml Output 3614 ml Net -622.9 ml Current Weight: Weight: 76 kg (167 lb 9.6 oz) Admission [facility] ht: Weight: 76 kg (167 lb 9.6 oz) RESPIRATORY Mechanical Ventilation: No. Supplemental Oxygen: No Recent Labs 06/06/19 1427 06/06/19 1336 PH 7.353 7.342* PO2 237* 297* PCO2 42.5 44.2 BE -2 -2 HCO3 23.6 24.0 PHYSICAL EXAM GENERAL: No distress NEURO: CN II-XII grossly normal PULMONARY: No evidence of increased WOB CARDIAC: HDS ABDOMINAL: soft MEDICATIONS: Current Facility-Administered Medications Medication Dose Route Frequency - acetaminophen 650 mg tab(s) (TYLENOL) 650 mg ORAL q 4 H FL N - pantoprazole DR 40 mg tab(s) (PROTONIX) 40 mg ORAL DAILY ( 6 AM) - lactated ringers infusion 75 mL/hr INTRAVENOUS CONTINUOUS - insulin regular human 100 Units in NaCl 0.9% 100 mL iv inf usion - NOMOGRAM 0-20 Units/hr INTRAVENOUS CONTINUOUS - insulin lispro injection (rapid acting) (HumaLOG) SUBCUTAN EOUS TID w MEALS - dextrose 40 % 15 g 15 g ORAL PRN Or - glucagon 1 mg injection (GLUCAGEN) 1 mg INTRAMUSCULAR PRN Or - dextrose 50% in water 25 mL syringe 12.5 g INTRAVENOUS PRN - albuterol 2.5 mg /3 mL (0.083 %) 2.5 mg (PROVENTIL) 2.5 mg INHALATION q 2 H PRN - EPINEPHrine iv infusion 4 mg in D5W 250 mL 0.5-10 mcg/min INTRAVENOUS PRN(NO DISPENSE) - nitroglycerin 50 mg in D5W 250 mL 5-200 mcg/min INTRAVENOU S PRN(NO DISPENSE) - NORepinephrine 16 mg in D5W 250 mL (LEVOPHED) 0.6-20 mcg/m in INTRAVENOUS PRN(NO DISPENSE) - aspirin 162 mg chewable tab(s) 162 mg ORAL/FEEDING TUBE DA MELO - ondansetron (PF) 4 mg injection (ZOFRAN) 4 mg INTRAVENOUS q 6 H PRN - potassium chloride iv piggyback 20 mEq/100 mL 20 mEq INTRA VENOUS PRN(NO DISPENSE) - potassium chloride iv piggyback 20 mEq/100 mL 20 mEq INTRA VENOUS PRN(NO DISPENSE) - potassium chloride iv piggyback 20 mEq/100 mL 20 mEq INTRA VENOUS PRN(NO DISPENSE) - magnesium sulfate in water 2 g in sterile water 50 ml 2 g INTRAVENOUS PRN(NO DISPENSE) - oxyCODONE IR 5-10 mg tab(s) (ROXICODONE) 5-10 mg ORAL q 4 H PRN - fentaNYL 50 mcg/mL 25 mcg injection (SUBLIMAZE) 25 mcg INT RAVENOUS q 15 MIN PRN - heparin 5,000 Units injection 5,000 Units SUBCUTANEOUS q 1 2 H - mupirocin 2 % 0.5 g ointment (BACTROBAN) 0.5 g NASAL BID Diagnostic tests reviewed for today's visit: Most recent labs PATIENT CHECKLIST ? Deep vein thrombosis prophylaxis administered? Yes. ? Stress ulcer prophylaxis? Yes. ? HOB elevated 45 degrees? Yes. ? Central line or arterial line present? Yes. Able to D/C: Y es ? Pain addressed? Yes. ? Plan reviewed with assigned RN? Yes. ? Nutrition: Enteral- Yes. TPN- No. PO- Yes. ? Family updated within last 24 hours? No. ? Discharge needs assessed? No. Allen Velazquez MD General Surgery, PGY-2 Pager: [phone] (Gen Surg Pager) June 07, 2019 7:57 AM [facility] STAFF PHYSICIAN NOTE OF PERSONAL INVOLVEMENT IN CARE I have reviewed the progress note obtained and documented by the resident and I personally participated in the olivares components. I have discussed the case and management of the patient's care. The following [facility] ments revise or confirm relevant olivares components of their note. IMPRESSION/PLAN: Patient seen, examined and discussed with resident. Doing well POD 1 s/p CABG x 3. Pain well controlled, off pre ssors, oxygenating well on NC, tolerating diet, glycemic control, O OB to chair, DVT/GI ppx. OK to transfer to [facility]. CARE COORDINATION: Level II. SIGNATURE: Claudio Medina DO PAGER: [phone] DATE of SERVICE: June 07, 2019 TIME of SERVICE: 5:28 PM nursing prog on NURSING HNO ID: [id number] Normal 06-07-2019 [place] PROG Author: Haleigh (Rn) TIMOTHY Bautista [facility] Service: Nursing (00 000) Author Type: Registered Nurse Type: Nursing Progress Note Filed: 06/07/2019 6:44 PM Note Text: Nursing Progress Note Patient Name: Jocelyn Loaiza Patient [facility]/ Daily Note: 0: pt arrived from SICU, Alert and oriented x3, lungs jose ar diminished on 2L NC, NSR on tele. 500cc nacl bolus infusing. midsternal dressing intact, CT connected to suction, serosang output. Bed alarm on and functioning. Call light within reach This note was completed by: Haleigh Bautista RN NURSING HNO ID: [id number] Normal 06-07-2019 [place] Author: Brendan KarimiRn) TIMOTHY [facility] Service: Nursing (00 000) Author Type: Registered Nurse Type: Nursing Progress Note Filed: 06/07/2019 11:48 AM Note Text: Nursing Progress Note Patient Name: Jocelyn Loaiza [facility] Daily Note: 0700 Bedside report received from previous shift RN. 0800 Assessment completed and charted. VSS. Neuro intact. No vasoactive medications. SR. Dr. Turner at bedside and updated Pt. On plan of care. See flowsheets. 1200 Reassessment completed and charted. This note was completed by: Brendan López RN NURSING HNO ID: [id number] Normal 06-07-2019 [place] Author: Kenzie (Rn) TIMOTHY [facility] Service: ? ([id number]) Author Type: Registered Nurse Type: Nursing Progress Note Filed: 06/07/2019 6:53 AM Note Text: Nursing Progress Note Patient Name: Jocelyn Loaiza [facility] Daily Note: 0130: Received report from TIMOTHY Mena. 0200: Patient assessed, see flowsheet. Dr. Della GALLEGOS rounding on patient. 0230: Gave 500 LR Bolus and 2g Magnesium IV. 0400: Patient reassessed, see flowsheet. 0650: Dr. Velazquez reviewed EKG. 0700: Report given to TIMOTHY Cardona. This note was completed by: Kenzie Haque RN magnesium on 06-07 Magnesium [Mass/Vol] 2.0 1.7-2.6 mg/dL Normal 0 [facility] ([id number]) Comment: Performed By: #### JUNIE, BRIAN, MG1 ####[facility] [place], [place] [id number] [phone] ecg complete on ECG COMPLETE NAME : JOCELYN LOAIZA Normal 05-26 [facility] PID : [id number] ([phone]) : 1945 Gender : Male Race : ORD : [id number] Procedure Date : Jun 07 2019 06:19:23 Edit Date : Jun 07 2019 07:51:06 Diagnosis:Atrial-paced rhythm Left anterior fascicular block Borderline ST elevation, anterior leads Abnormal ECG Confirmed by RENITA FARIAS M.D. ([id number]) on 06/07/2019 7:51 :06 AM Ventricular Rate : 80 BPM Atrial Rate : 80 BPM P-R Interval : 116 ms QRS Duration : 103 ms Q-T Interval : 356 ms QTC Calculation(Bazett) : 411 ms R Sobieski : -56 degrees T Sobieski : 66 degrees Test Reason : POST OP Location : 400 : [email or web address] Overread By : RENITA FARIAS M.D. Edited By : RENITA FARIAS M.D. Referred By : , Acquired by : , cbc on 2019-06-07 Erythrocyte distribution 12.7 11.5-15.0 % Normal 06-07 [facility] width (RBC) [Ratio] (70612) Comment: Performed By: #### BRIAN ZAMAN, MG1 ####[place] [id number] [place], [place] [id number] [phone] Hematocrit (Bld) [Volume 38.0 39.0-51.0 % Low 06-07 [facility] (27422) fraction] Comment: Performed By: #### JUNIE, BMP, MG1 ####[facility] [place], [place] [id number] [phone] Hemoglobin (Bld) 12.8 13.0-17.0 g/dL Low 06-07-2019 [facility] [Mass/Vol] (06434) Comment: Performed By: #### CBC, BMP, MG1 ####[address] [id number] [phone] MCH (RBC) [Entitic mass] 30.8 26.0-34.0 pG Normal 06-07 [facility] (50111) Comment: Performed By: #### CBC, BMP, MG1 ####[address] [id number] [phone] MCHC (RBC) [Mass/Vol] 33.7 30.5-36.0 g/dL Normal 06-07-[address] [place] [address] (23055) Comment: Performed By: #### CBC, BMP, MG1 ####[address] [id number] MCV (RBC) [Entitic vol] 91.3 80.0-100.0 fL Normal 06-07 [facility] (97575) Comment: Performed By: #### CBC, BMP, MG1 ####[address] [id number] [phone] Platelet mean volume (Bld) 9.8 9.0-12.7 fL Normal [facility] (74861) [Entitic vol] Comment: Performed By: #### CBC, BMP, MG1 ####[address] [id number] [phone] Platelets (Bld) [#/Vol] 190 150-400 k/uL Normal 2019 [facility] (05425) Comment: Performed By: #### CBC, BMP, MG1 ####[address] [id number] [phone] RBC (Bld) [#/Vol] 4.16 4.20-6.00 m/uL Low 06-07-2019 [facility] (14151) Comment: Performed By: #### CBC, BMP, MG1 ####[address] [id number] [phone] WBC (Bld) [#/Vol] 10.49 3.70-11.00 k/uL Normal 06-07-2019 [facility] (07824) Comment: Performed By: #### CBC, BMP, MG1 ####[facility] [place], [place] [id number] [phone] case mgt init asses on 2019-06-07 CASE MGT INIT HNO ID: [id number] Normal 020 [facility] ASS Author: Sammie (Rn) TIMOTHY Monzon ([id number]) Service: Care Management Author Type: Registered Nurse Type: Care Mgt Initial Assessment Filed: 06/07/2019 12:33 PM Note Text: CARE MANAGEMENT: ASSESSMENT AND DISCHARGE PLAN SERVICE DATE: June 07, 2019 SERVICE TIME: 12:31 PM PRIMARY CARE PHYSICIAN: Bella Santos MD ADMISSION STATUS: Inpatient Needs Prior to Discharge: OT/PT Evaluation;Home Care Order;F acility or Agency Choices MEDICAL: [employer] MEDICARE 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 Last discharge within 30 days: Yes Is this a planned readmission?: Yes Advance Directive: Current Advance Directive: Health Care Power of Soil Biology Teacher;Melina ing Will In Chart: No Printed Forms Proofreader Attempted to Assist with AD Completion: Yes Action: Education Provided;Other: See Comment(states will ta ke copy to next MD appointment) Health LiteracyHow often do you need to have someone help yo u when you read instructions, pamphlets, or other written material from your doctor or pharmacy? : 1 - Never How confident are you filling out medical forms by yourself? : 1 - Extremely If Patient scores > 3 on either question, the following inte rventions were put into place:: Patient did not score > 3 on either questio n. Baseline Mental Status Prior to this Illness what was the patient's Baseline Mental Status?: Alert AND Oriented Prior to this illness, has anyone described the patient havi ng any of the following behaviors?: Not Applicable Relationship of the informant to the patient:: Spouse Name of Informant: : Misti Functional Status: Independent Does Patient Currently Receive Any Community Services or Beth e Care?: None Equipment Prior to Admission: Other: See Comment(CPAP) SOCIAL: Living Arrangements: Home Financial Resources: RetiredPrimary Contact: Extended Emerge ncy Contact Information Primary Emergency Contact: Misti Loaiza Address: [address] [place] [id number] Relation: Spouse Supportive Patient Contact:: Yes Contact Resources: Family Family Name/Phone: spouse Social Needs Food insecurity Worry: Never true Inability: Never true Resources Needed: No Social Needs Financial resource strain: Not hard at all Social Needs Transportation needs Medical: No Non-medical: No Caregiver AssessmentCaregiver is ready, willing and able to meet the patient's needs as recommended by the inter-professional tea m:: Yes Does the patient have an acute stroke diagnosis, or has the patient had a stroke during this admission?: No Family Name/Phone: spouse Patient's perception of need for this admission: I had hea rt surgery Medication Adherance I am convinced of the importance of my prescription medicati on: 0 - Agree Completely I worry that my prescription medication will do more harm th an good to me : 0 - Disagree Completely I feel financially burdened by my zkj-da-wetoov expenses for my prescription medication:: 0 - Disagree Completely Risk Score: 0 Patient is categorized as: Low risk < 2 Are you interested in bedside delivery of your medications? Yes Is Patient Psychosocially Complex?: No ASSESSMENT AND PLAN: Medical Needs: Medical Needs: Wound Care - active or potential Psychosocial Needs: Psychosocial Needs: None FREEDOM OF CHOICE EXPLAINED: [place] of Choice Given: Yes Level of Care Discussed: Home Care Financial Disclosure Provided: Yes Financial Disclosure Comments: patient Provider List: Home Care Provider list within the patient's requested geographic area shared with the patient/family: Yes within: Other: See Comment(exact match) of zip code: [address] Quality and resource use metrics shared with the patient chantal t are relevant to the patient's goals of care and treatment preferences:: Y es Metrics: Potentially Preventable 30-day Post Discharge Readm ission Rates POTENTIAL TRANSITION PLANS Home Care;Home OT/PT TCC met with patient at bedside, explained role of CM. Alexander nt lives at home with spouse, he states she will be able to assist minim ally during his recovery due to her own health issues but his daughter a nd friends will be available to assist as needed and he will have trans port home. SIGNATURE: Sammie Monzon RN,BSN PATIENT NAME: Jocelyn ernst DATE: June 07, 2019 TIME: 12:31 PM PAGER/CONTACT #: [phone] basic metabolic panl on 2019-06-07 Anion gap [Moles/Vol] 11 9-18 mmol/L Normal 06-07-19 20 [facility] (66077) Comment: Performed By: #### CBC, BMP, MG1 ####[place] [id number] [phone] Calcium [Mass/Vol] 8.1 8.5-10.5 mg/dL Low 06-07-2019 [facility] (73211) Comment: Performed By: #### CBC, BMP, MG1 ####[place] [id number] [phone] Chloride [Moles/Vol] 108 98-110 mmol/L Normal 0 [facility] (40320) Comment: Performed By: #### CBC, BMP, MG1 ####[address] [id number] [phone] CO2 [Moles/Vol] 22 23-32 mmol/L Low 06-07-2019 [facility] (49697) Comment: Performed By: #### CBC, BMP, MG1 ####[address] [id number] [phone] Creatinine [Mass/Vol] 0.78 0.70-1.40 mg/dL Normal 06-07-19 20 [facility] (89570) Comment: Performed By: #### CBC, BMP, MG1 ####[address] [phone] eGFR- Amer. >60 >60 Normal 06-07-2019 [facility] (85497) Comment: Performed By: #### CBC, BMP, MG1 ####[address] [id number] [phone] GFR/1.73 sq M >60 >60 mL/min/{1.73_m2} Normal 0 [facility] predicted among (000 00) non-blacks MDRD (S/P/Bld) [Vol rate/Area] Comment: Performed By: #### CBC, BMP, MG1 ####[address] [id number] [phone] Glucose [Mass/Vol] 151 65-100 mg/dL High 06-07-2019 [facility] (34990) Comment: Performed By: #### CBC, BMP, MG1 ####[address] [id number] [phone] Potassium [Moles/Vol] 4.2 3.5-5.0 mmol/L Normal 06-07-19 [facility] (76904) Comment: Performed By: #### CBC, BMP, MG1 ####[address] [phone] [phone] Sodium [Moles/Vol] 141 135-146 mmol/L Normal 06-07-2019 [facility] (49128) Comment: Performed By: #### CBC, BMP, MG1 ####[address] [address] [id number] [phone] Urea nitrogen [Mass/Vol] 14 10-25 mg/dL Normal 06-07 [facility] ([id number]) Comment: Performed By: #### CBC, BMP, MG1 ####[address] [phone] allied health on 14-06-12 [facility] HNO ID: [id number] Normal 020 [facility] Author: Cherelle (Rt) Bryon Stokes ([id number]) Service: Radiology Author Type: Mill Attendant Type: Allied Health Filed: 06/07/2019 6:58 AM Note Text: Radiology Service Progress Note PATIENT NAME: Jocelyn Loaiza DATE OF SERVICE: June 07, 2019 TIME: 6:58 AM PATIENT IDENTITY VERIFICATION COMPLETED USING TWO (2) IDENTI FIERS: Name and Date of confirmed by patient verbally and Name and Date of confirmed by identification band. PATIENT GENDER DATA: Female. status: : No status: N/A PATIENT RELEVANT IMPLANT DATA REVIEWED: Not Applicable RADIOLOGY DEPARTMENT: General X-ray: Exam(s) Completed: Ches t X-Ray PERIPHERAL IV DATA: Not applicable SIGNED BY: BRYON Forbes June 07, 2019 6:58 AM xr chest 1v frontal port on 2019-06-06 XR CHEST 1V * * *Final Report* * * Normal 06-06 [facility] FRONTAL PORT DATE OF EXAM: Jun 06 2019 3:09PM Hospital ([id number]) FVX [id number] - XR CHEST 1V FRONTAL PORT / PROCEDURE REASON: Post-operative / post-procedure assessment , asymptomatic * * * * Physician Interpretation * * * * EXAMINATION: CHEST RADIOGRAPH (PORTABLE SINGLE VIEW AP) Exam Date/Time: 06/06/2019 3:09 PM CLINICAL HISTORY: Post-operative / post-procedure assessment , asymptomatic MQ: XCPR_5 Comparison: 04/27/2019 RESULT: Lines, tubes, and devices: There is an endotracheal tube, NG tube and a Richland-Gracie catheter with the Richland-Gracie catheter tip in the ri ght descending pulmonary artery. Postoperative large bore chest tubes are present overlying the mediastinum and the periphery of the l eft lung base. Lungs and pleura: There are post operative left basilar atel ectasis otherwise no infiltrate or effusion is seen. Cardiomediastinal silhouette: Stable cardiomediastinal silho uette. Other: . IMPRESSION: Postoperative changes without evidence of an acute cardiopul monary process Anthropometrist: PSCB Transcribe Date/Time: Jun 06 2019 3:23P Dictated by : PEPE FOWLER MD This examination was interpreted and the report reviewed and electronically signed by: PEPE FOWLER MD on Jun 06 2019 3:25PM EST [id number] therapy nt on 06-06 THERAPY NT HNO ID: [id number] Normal 06-06-2019 [facility] Author: Dafne Sutton RRT ([id number]) Service: Respiratory Therapy Author Type: Registered Resp Therapist Type: Therapy (PT/OT/Speech/Resp) Filed: 06/06/2019 4:18 PM Note Text: RESPIRATORY THERAPY PROGRESS NOTE SERVICE DATE: 06/06/2019 SERVICE TIME: 1553 Patient extubated at 1553 to 1L NC per physician order, foll owing successful CPAP/PSV Trial. SpO2 95-95% (appropriate per RT O 2 Protocol), phonation appropriate at time of extubation. No significant events or complications noted. Will continue to monitor the patient an d intervene as needed. SIGNATURE: Dafne Sutton, ONLINE USER EXPERIENCE STRATEGIST PATIENT NAME: Jocelyn Hollins DATE: June 06, 2019 TIME: 4:16 PM PAGER/CONTACT #: Harjit ptt,anticoag therapy on 2019-06-06 aPTT Coag (Bld) [Time] 49.8 23.0-32.4 sec High 020 [facility] ([id number]) Comment: Result Comment: Unfractionat ed Heparin Therapeutic Ranges: Standard Heparin Nomogram: 5 3 to 78 seconds (anti-Xa level of 0.3 to 0.7 U/ml) Low Dose/ACS Nomogram: 49 to 67 seconds (anti-Xa level of 0.2 to 0.5 U/ml) Stroke Treatment Nomogram: 4 9 to 67 seconds (anti-Xa level of 0.2 to 0.5 U/ml) Note: The APTT therapeutic r raza has been determined for the current lot of laboratory APTT reagent in use throughout the [facility]. Performed By: #### PTTAC ### #[facility] [place], [place] [phone] protime on PT Coag (PPP) [Time] 1.3 0.9-1.3 s Normal 0 [facility] ([id number]) Comment: Result Comment: Vitamin K An tagonist (VKA) Therapeutic Range: INR 2 to 3 (Target INR of 2.5) Note: For patients treated w ith VKA drugs, such as warfarin, the [place] [employer] 2012 Guideline recommends a therapeutic INR range of 2 to 3 (target INR of 2.5). This recommendation includes high-risk patients with antiphospholipid syndrome with previous arterial or venous thromboembolism, current-generation mechanical or bioprosthetic aortic heart valve replacement. Note: Patients with electrical and instrument mechanic al aortic valve replacement and additional risk factors for thromboembolic events (atrial fibrillation, previous thromboembolism, LV dysfunction, hypercoagulable conditions) or an older generation mecha nical AVR (i.e., ball in-Cage) or any mechanical MVR should have a INR therapeutic range of 2.5 to 3.5 (target INR of 3). Christelle CHAPA, et al. Chest 2012 , 141:7S-47S Ellen STARR, et al. [facility] 20 , 70: 252-289 Performed By: #### CBC, PT, PTT, BMP, MG1 ####[facility] [place], [place] [phone] PT Coag (PPP) [Time] 13.9 9.7-13.0 sec High 0 [facility] ([id number]) Comment: Performed By: #### CBC, PT, PTT, BMP, MG1 ####[place] [id number] [place], [place] [id number] [phone] operative no on OPERATIVE NO HNO ID: [id number] Normal 06-06-19 20 [facility] Author: Nj Turner ([id number]) Service: Cardiac Surgery Author Type: Physician Type: Operative Report Filed: 06/08/2019 10:01 AM Note Text: [facility] - Operative Report JOCELYN LOAIZA : 1945 AGE: 73. SEX: M PATIENT TYPE: I HOSP SVC: CARD LOCATION: [facility] ATTENDING PHYSICIAN: Nj Turner M.D. CSN NUMBER: [id number] DATE OF SURGERY/PROCEDURE: 06/06/2019 INCISION/PROCEDURE START TIME: 9:21 AM INCISION CLOSE/PROCEDURE END TIME: 2:22 PM PREOPERATIVE DIAGNOSIS: Coronary artery disease. POSTOPERATIVE DIAGNOSIS: Coronary artery disease. SURGEON: Nj Turner M.D. MITOCHONDRIAL DISORDERS COUNSELOR: Feliberto Guaman and Liliya Capone. SURGERY/PROCEDURE: Coronary artery bypass grafting x2 with l eft internal mammary artery to the left anterior descending, saphenous ve nous bypasses to the first obtuse marginal and the posterior descending ar nat. ANESTHESIA: General ANESTHESIOLOGIST: Dr. Bebo Barboza. PERFUSION: Effie Fitzpatrick. HISTORY: This 73-year-old patient was admitted to [facility] yesterday with unstable angina and underwent coronary angiog chantelle that showed severe triple-vessel coronary artery disease for whic h he was advised to undergo urgent coronary artery bypass grafting. T he risks and benefits of this were discussed with him and he consented to proceed with surgery. DESCRIPTION OF PROCEDURE: The patient was prepped and draped in the usual fashion after orotracheal intubation and after right-sided i nternal jugular Richland-Gracie catheter, and a left-sided radial arterial line had been placed. An intraoperative MARK was done that showed he h ad good LV function and no valvular abnormality. After prepping and kizzy ping, a standard sternotomy was performed. His left internal thoraci c artery was dissected as a pedicle conduit and greater saphenous vein wa s obtained from his left leg through endoscopic dissection. Both were e xcellent conduits. He was heparinized. The pericardial sac was opened and ascending aortic and 2 stage right atrial cannulation was ca rried out, and he was put on cardiopulmonary bypass once his ACT became adequate. Aortic cross-clamping was done with a soft padded clamp and cold bl ood cardioplegia was given through the aortic root to bring abou t cardiac standstill. The completely occluded posterior descending artery was grafted first. This vessel was about 1 .5 to 1.75 mm and was grafted to saphenous vein with 7-0 running Prolene s uture. The first obtuse marginal branch was grafted second. This was a large vessel measuring over 2 mm and was grafted to saphenous vein with 7 -0 running Prolene suture. The left internal thoracic artery was prepar ed and anastomosed to the LAD in the middle 3rd, LAD was at least 2 -2.5 mm. This anastomosis was done with 7-0 running Prolene suture. T he 2 venous proximal anastomoses were done on the crossclamp using 6-0 r unning Prolene suture and the cross-clamp was removed. He started spontaneo us myocardial contractions and was weaned off cardiopulmonary bypass uneve ntfully on no inotropic support and atrial pacing. The sternum was closed with interrupted steel wires after one mediastinal and one left p leural chest tube had been placed. The subcutaneous tissue and skin were closed in layers. At the e nd of the procedure, he was atrially paced at a rate of 80. He had a b lood pressure 120/70 and PA pressures of 35/10, and a cardiac ind ex of 3. He made excellent urine output throughout. No blood products we re used and I was present throughout the procedure. Nj Turnre M.D. IG:[id number] /[id number] nursing prog on 202 NURSING HNO ID: [id number] Normal 06-06-2019 [facility] Author: Trina (Rn) [facility] Service: Nursing ( 000) Author Type: Registered Nurse Type: Nursing Progress Note Filed: 06/07/2019 12:27 AM Note Text: Nursing Progress Note Patient Name: Jocelyn Loaiza [facility] [place] [address]: 1450: patient up from OR - SICU team at bedside 1455: bear hugger placed on patient for temp of 34.1 C 1500: patient assessed, see flowsheet 1505: patient given 1 L LR bolus per Dr. Medina 1530: propofol turned off per Dr. Medina, patient awake, follow ing commands 1539: RT at bedside beginning CPAP 1540: patient complaining of pain, PRN fent given 1548: Dr. Medina at bedside to assess readiness for extubation 1553: patient extubated, on 1 L NC 1640: Dr. Medina made aware that pt is jaylen down to the 50's w ith the pacer set at a rate of 40. Per Dr. Medina, ok to turn rate up to 80 1650: patient passed swallow eval 1999: patient assessed, see flowsheet 2130: RT at bedside placing patient on home CPAP 2145: patient stating he feels as though his CPAP is making him take too large of breaths that hurt his incision, SBP 180 at this anabel e - blood pressure and pain stabilized once CPAP was removed, mariam ruiz patient on NC for the evening 0000: patient reassessed, see flowsheet This note was completed by: Trina Madrigal RN NURSING HNO ID: [id number] [place] 06-06-2019 [employer] Author: Wendy KarimiRn) [facility] Service: Nursing (00 [phone]) Author Type: Registered Nurse Type: Nursing Progress Note Filed: 06/06/2019 7:13 AM Note Text: PATIENT EDUCATION TOPIC: PROCEDURE / SURGERY: Pre-op Teachin g: Protocols PATIENT NAME: Jocelyn Loaiza PATIENT LOCATION: [facility] OR POOL/[facility] OR POOL READINESS TO LEARN COGNITIVE ABILITY: Alert and oriented MOTIVATION TO LEARN: Interested FAMILY SUPPORT: Unable to assess - Family not present INSTRUCTION PROVIDED TO: Patient PATIENT LEARNS BEST BY: Individual Instruction FACTORS AFFECTING LEARNING: None PHYSICAL LIMITATIONS AFFECTING LEARNING: None LEARNING RESPONSE DIAGNOSIS: ADULT well PATIENT/FAMILY RESPONSE: Verbalizes understanding of: PRE-OP ERATIVE INSTRUCTIONS-Correct action to take to follow pre-operative instructions METHOD OF INSTRUCTION: Individual instruction FOLLOW-UP PLAN: Patient instructed to call with any further issues INSTRUCTIONAL AIDS USED: NA SUPPLEMENTAL MATERIAL PROVIDED TO PATIENT: None REFERRAL (RECOMMENDATION): None Electronically Signed By: Wendy Rizo RN NURSING HNO ID: [id number] [place] 06-06-2019 [place] Author: Fernanda Way (Rn) TIMOTHY Guzman [facility] Service: ? ([id number]) Author Type: Registered Nurse Type: Nursing Progress Note Filed: 06/06/2019 6:47 AM Note Text: Nursing Progress Note Patient Name: Jocelyn Loaiza Patient Location: [id number] Daily Note: Assumed care of pt at [id number]: Pt alert and rest ing in bed. Pt denies cp or pressure. Right radial dressing dry and intact, no bleeding or hematoma noted. IVF and IV heparin infusing as ordered wi thout any issues. Pt SB in the 40's on telemetry. Pt NPO after midnigh t. Pt denies any needs at this time. Call light in reach, safety maintain ed. Will continue to monitor. 0130- pt resting, no complaints offered. Safety maintained. Will monitor. 0300- pt resting, labs drawn, pt Heparin no change for last ptt, drip continued at 900 units/hr. Will monitor. 0530- pt up to BR, freshened up for morning. 0615- cardiac rehab up on floor to complete pt's walk test, pt tolerated without any issues. Report called to Gabriela in Or for pt's harris rgery this AM. Safety maintained. Pt left unit in bed with family and all h is belongings. This note was completed by: Fernanda Guzman RN magnesium on 06-06 Magnesium [Mass/Vol] 1.7 1.7-2.6 mg/dL Normal 0 [facility] ([id number]) Comment: Performed By: #### CBCDIF, B MP, MG1 ####[address] [id number] [phone] Magnesium [Mass/Vol] 2.1 1.7-2.6 mg/dL Normal 0 [facility] ([id number]) Comment: Performed By: #### CBC, PT, PTT, BMP, MG1 ####[address] [id number] [phone] history physical on 2019-06-06 HISTORY HNO ID: [id number] Normal 06-06-2019 [facility] Author: Claudio Storey [facility] Service: Critical Care ([id number]) Author Type: Anesthesiologist Type: HANDP Filed: 06/06/2019 6:27 PM Note Text: Surgical Intensive Care Unit History and Physical Jocelyn Loaiza [id number] Admit Date: 06/05/2019 11:22 AM Combat 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 Medina Surgeon: Dr Turner Operation: CABGx3 REASON FOR ICU ADMISSION: Postoperative monitoring and resus citation Assessment AND Plan: Jocelyn Loaiza is a 73 year old male with a h/o HARLEY on CPAP , HTN, HLD, who was admitted for CABGx3. Patient initially had symptoms of chest pain and SOB and was found to have CAD on CT scan and was advised to have a heart cath performed which was done at [facility]. 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 He was ad mitted on 06/06 for CABGx3. He was sent to the SICU for monitoring. Neurological Assessment: Arrived sedated and paralyzed from OR to SICU Plan: - Reverse paralysis - Wean to extubate - Wean off propofol - Oxycodone PRN - Fentanyl PRN Cardiovascular Assessment: S/p CABGx3 Plan: - Maintain MAPs >75 - Aspirin - Atorvastatin - Levo gtt to keep MAP goals - Continue Pacer Hematological Assessment: No signs of active bleeding Plan: - No indication for transfusion at this time Pulmonary Assessment: On VENT Plan: - Plan to wean off vent - Encourage IS while awake - Bronchopulmonary hygiene when awake Gastrointestinal Assessment: No issues Plan: - NPO - Zofran as needed - Protonix daily Renal / Fluids / Electrolytes Assessment: No issues Plan: - IVF: LR at 75cc/hr - Maintain K>4, Mg>2 - Continue bailey catheter for accurate monitoring in a criti ileana ill patient Infectious Diseases Assessment: No signs of active infection Plan: - Continue Ancef for 24 hours Endocrine Assessment: No history of diabetes Plan: - On insulin gtt, held given low BG levels Musculoskeletal Assessment: No issues Plan: - OOB as tolerated - PT/OT, progressive mobility Prophylaxis - DVT prophylaxis: SCDs, SQH - GI prophylaxis: Protonix - Frequent turns Lines / Drains / Vascular Access - PIV - NGT - Arterial line in L radial artery - RIJ - Bailey - Chest tube Disposition and Activity - Remains critically ill, and at high risk of rapid decompen sation - Continue care in SICU Care discussed with Attending Dr. Medina at 16:00 on 06/06/2019 ====== History: Jocelyn Loaiza is a 73 year old male with a h/o OS A on CPAP, HTN, HLD, who was admitted for CABGx3. Patient initially had symptoms of chest pain and SOB and was found to have CAD on CT scan and was advised to have a heart cath performed which was done at [facility]. O n heart cath, patient was found to have stenosis of multiple coronaries. Ajith schuster was admitted on 06/06 for CABGx3. He was sent to the SICU for monitoring. PAST MEDICAL HISTORY PAST MEDICAL HISTORY Diagnosis Date - Dyslipidemia - Dyspnea on exertion - Former smoker, stopped smoking in distant past - HTN (hypertension) - Kidney stones - HARLEY on CPAP - Rosacea PAST SURGICAL HISTORY PAST SURGICAL HISTORY Procedure Laterality Date - COLONOSCOP W/ OR W/O [facility] SPEC 02/15/2019 Colonoscopy - COLONOSCOPY 2006 - HERNIA REPAIR HX childhood and 2007 x3 - PAST SURGICAL HISTORY OF lithotripsy, multiple - PAST SURGICAL HISTORY OF laser prostate - TONSILLECTOMY HX FAMILY HISTORY FAMILY HISTORY Problem Relation Age of Onset - other (No CAD) Father - Cancer Mother , lung - Cancer Brother thyroid SOCIAL HISTORY Social History Tobacco Use - Smoking status: Former Smoker Packs/day: 1.00 Years: 7.00 Pack years: 7.00 Types: Cigarettes Last attempt to quit: 12/27/1976 Years since quittin.4 - Smokeless tobacco: Never Used - Tobacco comment: on and off Substance Use Topics - Alcohol use: Yes Frequency: 2-4 times a month Drinks per session: 1 or 2 Binge frequency: Never Comment: occasional - Drug use: No PRIOR TO ADMISSION MEDICATIONS @PTAMED@ ALLERGIES ALLERGIES No Known Allergies Current Weight: Weight: 76 kg (167 lb 9.6 oz) Admission [place] ht: Weight: 76 kg (167 lb 9.6 oz) OBJECTIVE: VITAL SIGNS Temp: (!) 35 ?C (95 ?F) Pulse: 80 BP: 172/90 MAP Non Invasive (Mean Arterial Pressure): 105 CVP: 3 Resp: 13 SpO2: 98 % Pulmonary Artery Mean: 16 RESPIRATORY Mechanical Ventilation: Recent Labs 06/06/19 1427 06/06/19 1336 PH 7.353 7.342* PO2 237* 297* PCO2 42.5 44.2 BE -2 -2 HCO3 23.6 24.0 PHYSICAL EXAM GENERAL: Sedated NEURO: Sedated PULMONARY: On VENT CARDIAC: HDS, ongoing monitoring shows ABDOMINAL: soft, EXTREMITIES: LLE SUSAN wrapped Medications Current Facility-Administered Medications Medication Dose Route Frequency - lactated ringers infusion 75 mL/hr INTRAVENOUS CONTINUOUS - insulin regular human iv bolus 0.5-7 Units 0.5-7 Units INT RAVENOUS ONCE - insulin regular human 100 Units in NaCl 0.9% 100 mL iv inf usion - NOMOGRAM 0-20 Units/hr INTRAVENOUS CONTINUOUS - insulin lispro injection (rapid acting) (HumaLOG) SUBCUTAN EOUS TID w MEALS - dextrose 40 % 15 g 15 g ORAL PRN Or - glucagon 1 mg injection (GLUCAGEN) 1 mg INTRAMUSCULAR PRN Or - dextrose 50% in water 25 mL syringe 12.5 g INTRAVENOUS PRN - albuterol 2.5 mg /3 mL (0.083 %) 2.5 mg (PROVENTIL) 2.5 mg INHALATION q 2 H PRN - EPINEPHrine iv infusion 4 mg in D5W 250 mL 0.5-10 mcg/min INTRAVENOUS PRN(NO DISPENSE) - nitroglycerin 50 mg in D5W 250 mL 5-200 mcg/min INTRAVENOU S PRN(NO DISPENSE) - NORepinephrine 16 mg in D5W 250 mL (LEVOPHED) 0.6-20 mcg/m in INTRAVENOUS PRN(NO DISPENSE) - aspirin 162 mg chewable tab(s) 162 mg ORAL/FEEDING TUBE DA MELO - ceFAZolin iv piggyback 1 g in D5W (iso-osmotic) 50 mL (ANC EF) 1 g INTRAVENOUS q 8 H - ondansetron (PF) 4 mg injection (ZOFRAN) 4 mg INTRAVENOUS q 6 H PRN - potassium chloride iv piggyback 20 mEq/100 mL 20 mEq INTRA VENOUS PRN(NO DISPENSE) - potassium chloride iv piggyback 20 mEq/100 mL 20 mEq INTRA VENOUS PRN(NO DISPENSE) - potassium chloride iv piggyback 20 mEq/100 mL 20 mEq INTRA VENOUS PRN(NO DISPENSE) - magnesium sulfate in water 2 g in sterile water 50 ml 2 g INTRAVENOUS PRN(NO DISPENSE) - oxyCODONE IR 5-10 mg tab(s) (ROXICODONE) 5-10 mg ORAL q 4 H PRN - fentaNYL 50 mcg/mL 25 mcg injection (SUBLIMAZE) 25 mcg INT RAVENOUS q 15 MIN PRN - mupirocin 2 % 0.5 g ointment (BACTROBAN) 0.5 g NASAL BID Patient Lines Assessed A-Line: Site: Left radial, Day #: 0 RECENT LABS Recent Labs 02/12/20 1455 06/06/19 0604 06/06/19 0203 06/05/19 1634 06/05/19 1518 MG -- -- -- 1.8 -- CA -- -- -- 9.5 -- NA -- -- -- 139 -- K -- -- -- 4.2 -- CHLOR -- -- -- 105 -- CO2 -- -- -- 24 -- BUN -- -- -- 19 -- CREAT -- -- -- 0.77 -- GLUC -- -- -- 112* -- WBC 15.85* 7.86 -- -- 7.10 RBC 4.30 5.34 -- -- 5.30 HB 13.1 16.6 -- -- 16.6 HCT 39.4 49.1 -- -- 49.5 PLT 166 281 -- -- 304 INR -- -- -- -- 1.1 APTT -- -- 49.8* -- 36.8* DATA: Diagnostic tests reviewed for today's visit: Most recent labs PATIENT CHECKLIST ? Are restraints necessary? No ? Deep vein thrombosis prophylaxis administered? Yes. ? Central line present on admission to SICU? No ? Stress ulcer prophylaxis? Yes. ? HOB elevated 45 degrees? Yes. ? On sedation? Yes. Able to reduce: Yes ? Pain addressed? Yes. ? Plan reviewed with assigned RN? Yes. ? Nutrition: Enteral- No. TPN- No. PO- No. ? Family updated? No. Allen Velazquez MD General Surgery, PGY-2 Pager: [phone] (Gen Surg Pager) June 06, 2019 3:20 PM [facility] STAFF PHYSICIAN NOTE OF PERSONAL INVOLVEMENT IN CARE I have reviewed the progress note obtained and documented by the resident and I personally participated in the olivares components. I have discussed the case and management of the patient's care. The following [facility] ments revise or confirm relevant olivares components of their note. IMPRESSION/PLAN: Patient seen, examined and discussed with resident. S/P CABG x 3, arrived to ICU intubated. Sedation weaned, pat ient extubated. Hemodynamic monitoring and support as needed, adv ance diet as tolerated, pain control, glycemic control, DVT/GI PPX. Otherwise, as annotated above. CARE COORDINATION: Critical Care: I personally spent 36 gaetano madhavi of critical care time involved in the care of this patient. SIGNATURE: Claudio Medina DO PAGER: [phone] DATE of SERVICE: June 06, 2019 TIME of SERVICE: 6:26 PM confirm blood type on 2019-06-06 ABO/RH(D) O POSITIVE Normal 06-06-2019 [facility] ([id number]) Comment: Performed By: #### CONABO ## ##[place] [phone] cbc on 2019-06-06 Erythrocyte distribution 12.5 11.5-15.0 % Normal 06-06 [facility] width (RBC) [Ratio] ([id number]) Comment: Performed By: #### CBC, PT, PTT, BMP, MG1 ####[place] [id number] [phone] Hematocrit (Bld) [Volume 39.4 39.0-51.0 % Normal 06-06 [facility] fraction] ([id number]) Comment: Performed By: #### CBC, PT, PTT, BMP, MG1 ####[place] [id number] [phone] Hemoglobin (Bld) 13.1 13.0-17.0 g/dL Normal 06-06-2019 [facility] [Mass/Vol] ([id number]) Comment: Performed By: #### CBC, PT, PTT, BMP, MG1 ####[place] [id number] [phone] MCH (RBC) [Entitic mass] 30.5 26.0-34.0 pG Normal 06-06 [facility] ([id number]) Comment: Performed By: #### CBC, PT, PTT, BMP, MG1 ####[place] [phone] MCHC (RBC) [Mass/Vol] 33.2 30.5-36.0 g/dL Normal 06-06-[address] [place] [address] ([id number]) Comment: Performed By: #### CBC, PT, PTT, BMP, MG1 ####[address] [phone] MCV (RBC) [Entitic vol] 91.6 80.0-100.0 fL Normal 06-06 [facility] ([id number]) Comment: Performed By: #### CBC, PT, PTT, BMP, MG1 ####[address] [id number] [phone] Platelet mean volume (Bld) 9.4 9.0-12.7 fL Normal [facility] ([id number]) [Entitic vol] Comment: Performed By: #### CBC, PT, PTT, BMP, MG1 ####[place] [phone] Platelets (Bld) [#/Vol] 166 150-400 k/uL Normal 2019 [facility] ([id number]) Comment: Performed By: #### CBC, PT, PTT, BMP, MG1 ####[place] [phone] RBC (Bld) [#/Vol] 4.30 4.20-6.00 m/uL Normal 06-06-2019 [facility] ([id number]) Comment: Performed By: #### CBC, PT, PTT, BMP, MG1 ####[address] [phone] WBC (Bld) [#/Vol] 15.85 3.70-11.00 k/uL High 06-06-2019 [facility] ([id number]) Comment: Performed By: #### CBC, PT, PTT, BMP, MG1 ####[place] [phone] Erythrocyte distribution 12.6 11.5-15.0 % Normal 06-06 [facility] width (RBC) [Ratio] ([id number]) Comment: Performed By: #### CBC ####[place] [phone] Hematocrit (Bld) [Volume 49.1 39.0-51.0 % Normal 06-06 [facility] fraction] ([id number]) Comment: Performed By: #### CBC ####[place] [phone] Hemoglobin (Bld) 16.6 13.0-17.0 g/dL Normal 06-06-2019 [facility] [Mass/Vol] ([id number]) Comment: Performed By: #### CBC ####[place] [phone] MCH (RBC) [Entitic mass] 31.1 26.0-34.0 pG Normal 06-06 [facility] (64882) Comment: Performed By: #### CBC ####[place] [phone] MCHC (RBC) [Mass/Vol] 33.8 30.5-36.0 g/dL Normal 06-06-19 20 [facility] ([id number]) Comment: Performed By: #### CBC ####F [place] [phone] MCV (RBC) [Entitic vol] 91.9 80.0-100.0 fL Normal 06-06 [facility] (99217) Comment: Performed By: #### CBC ####F [address] [phone] Platelet mean volume 10.0 9.0-12.7 fL Normal 0 [facility] (15077) (Bld) [Entitic vol] Comment: Performed By: #### CBC ####F [address] [phone] Platelets (Bld) [#/Vol] 281 150-400 k/uL Normal 2019 [facility] (65138) Comment: Performed By: #### CBC ####F [address] [phone] RBC (Bld) [#/Vol] 5.34 4.20-6.00 m/uL Normal 06-06-2019 [facility] (16963) Comment: Performed By: #### CBC ####F [place] [phone] WBC (Bld) [#/Vol] 7.86 3.70-11.00 k/uL Normal 06-06-2019 [facility] (53892) Comment: Performed By: #### CBC ####F [place] [phone] cbc and differential on 2019-06-06 Abs Baso <0.03 <0.11 Normal 06-06-2019 [facility] (28711) Comment: Performed By: #### CBCDIF, B MP, MG1 ####[place] [phone] Abs Merrick 1.03 <0.87 k/uL High 06-06-2019 [facility] (55874) Comment: Performed By: #### CBCDIF, B MP, MG1 ####[place] [phone] Abs Neut 13.90 1.45-7.50 k/uL High 06-06-2019 [facility] (96072) Comment: Performed By: #### CBCDIF, B MP, MG1 ####[place] [phone] Basophils/100 WBC (Bld) 0.1 % Normal 2019 [facility] (59735) Comment: Performed By: #### CBCDIF, B MP, MG1 ####[place] [phone] DTYPE Auto Diff Normal 06-06-2019 [facility] (01893) Comment: Performed By: #### CBCDIF, B MP, MG1 ####[place] [phone] Eosinophils (Bld) [#/Vol] <0.03 <0.46 10*3/uL Normal 05-26 [facility] (91813) Comment: Performed By: #### CBCDIF, B MP, MG1 ####[place] [phone] Eosinophils/100 WBC (Bld) 0.1 % Normal 05-26 [facility] (50886) Comment: Performed By: #### CBCDIF, B MP, MG1 ####[place] [phone] Erythrocyte distribution 12.3 11.5-15.0 % Normal 06-06 [facility] width (RBC) [Ratio] (09909) Comment: Performed By: #### CBCDIF, B MP, MG1 ####[place] [phone] Hematocrit (Bld) [Volume 41.3 39.0-51.0 % Normal 06-06 [facility] fraction] (79596) Comment: Performed By: #### CBCDIF, B MP, MG1 ####[place] [phone] Hemoglobin (Bld) 13.8 13.0-17.0 g/dL Normal 06-06-2019 [facility] [Mass/Vol] (10893) Comment: Performed By: #### CBCDIF, B MP, MG1 ####[place] [phone] Lymphocytes (Bld) [#/Vol] 1.06 1.00-4.00 k/uL Normal 05-26 [facility] (24571) Comment: Performed By: #### CBCDIF, B MP, MG1 ####[place] [phone] Lymphocytes/100 WBC (Bld) 6.6 % Normal 05-26 [facility] (69507) Comment: Performed By: #### CBCDIF, B MP, MG1 ####[place] [phone] MCH (RBC) [Entitic mass] 30.9 26.0-34.0 pG Normal 06-06 [facility] (77844) Comment: Performed By: #### CBCDIF, B MP, MG1 ####[place] [phone] MCHC (RBC) [Mass/Vol] 33.4 30.5-36.0 g/dL Normal 06-06-19 [facility] (34895) Comment: Performed By: #### CBCDIF, B MP, MG1 ####[place] [phone] MCV (RBC) [Entitic vol] 92.6 80.0-100.0 fL Normal 06-06 [facility] (66444) Comment: Performed By: #### CBCDIF, B MP, MG1 ####[place] [phone] Monocytes/100 WBC (Bld) 6.4 % Normal 2019 [facility] (34100) Comment: Performed By: #### CBCDIF, B MP, MG1 ####[place] [phone] Neutrophils/100 WBC (Bld) 86.8 % Normal 05-26 [facility] (66439) Comment: Performed By: #### CBCDIF, B MP, MG1 ####[place] [phone] Platelet mean volume (Bld) 9.8 9.0-12.7 fL Normal [facility] (52170) [Entitic vol] Comment: Performed By: #### CBCDIF, B MP, MG1 ####[place] [phone] Platelets (Bld) [#/Vol] 210 150-400 k/uL Normal 2019 [facility] (99189) Comment: Performed By: #### CBCDIF, B MP, MG1 ####[address] [phone] RBC (Bld) [#/Vol] 4.46 4.20-6.00 m/uL Normal 06-06-2019 [facility] (92514) Comment: Performed By: #### CBCDIF, B MP, MG1 ####[address] [phone] WBC (Bld) [#/Vol] 16.02 3.70-11.00 k/uL High 06-06-2019 [facility] (16994) Comment: Performed By: #### CBCDIF, B MP, MG1 ####[address] [phone] basic metabolic panl on 2019-06-06 Anion gap [Moles/Vol] 10 9-18 mmol/L Normal 06-06-19 20 [facility] (66346) Comment: Performed By: #### CBCDIF, B MP, MG1 ####[address] [phone] Calcium [Mass/Vol] 7.9 8.5-10.5 mg/dL Low 06-06-2019 [facility] (40400) Comment: Performed By: #### CBCDIF, B MP, MG1 ####[address] [phone] Chloride [Moles/Vol] 109 98-110 mmol/L Normal 0 [facility] (39770) Comment: Performed By: #### CBCDIF, B MP, MG1 ####[address] [phone] CO2 [Moles/Vol] 21 23-32 mmol/L Low 06-06-2019 [facility] (67860) Comment: Performed By: #### CBCDIF, B MP, MG1 ####[address] [phone] Creatinine [Mass/Vol] 0.74 0.70-1.40 mg/dL Normal 06-06-19 20 [facility] (84075) Comment: Performed By: #### CBCDIF, B MP, MG1 ####[place] [phone] eGFR- Amer. >60 >60 Normal 06-06-2019 [facility] (05027) Comment: Performed By: #### CBCDIF, B MP, MG1 ####[place] [phone] GFR/1.73 sq M >60 >60 mL/min/{1.73_m2} Normal 0 [facility] predicted among (000 00) non-blacks MDRD (S/P/Bld) [Vol rate/Area] Comment: Performed By: #### CBCDIF, B MP, MG1 ####[place] [phone] [phone] Glucose [Mass/Vol] 164 65-100 mg/dL High 06-06-2019 [facility] (84171) Comment: Performed By: #### CBCDIF, B MP, MG1 ####[place] [phone] [phone] Potassium [Moles/Vol] 4.5 3.5-5.0 mmol/L Normal 06-06-19 [facility] (22868) Comment: Performed By: #### CBCDIF, B MP, MG1 ####[place] [phone] Sodium [Moles/Vol] 140 135-146 mmol/L Normal 06-06-2019 [facility] (49583) Comment: Performed By: #### CBCDIF, B MP, MG1 ####[place] [phone] Urea nitrogen [Mass/Vol] 12 10-25 mg/dL Normal 06-06 [facility] (96699) Comment: Performed By: #### CBCDIF, B MP, MG1 ####[place] [phone] Anion gap [Moles/Vol] 9 9-18 mmol/L Normal 06-06-19 20 [facility] (16837) Comment: Performed By: #### CBC, PT, PTT, BMP, MG1 ####[place] [phone] Calcium [Mass/Vol] 7.5 8.5-10.5 mg/dL Low 06-06-2019 [facility] (06283) Comment: Result Comment: Reviewed Performed By: #### CBC, PT, PTT, BMP, MG1 ####[place] [phone] Chloride [Moles/Vol] 110 98-110 mmol/L Normal 0 [facility] (79243) Comment: Performed By: #### CBC, PT, PTT, BMP, MG1 ####[place] [phone] CO2 [Moles/Vol] 22 23-32 mmol/L Low 06-06-2019 [facility] (76453) Comment: Performed By: #### CBC, PT, PTT, BMP, MG1 ####[place] [phone] Creatinine [Mass/Vol] 0.71 0.70-1.40 mg/dL Normal 06-06-19 20 [facility] (68058) Comment: Performed By: #### CBC, PT, PTT, BMP, MG1 ####[place] [phone] eGFR- Amer. >60 >60 Normal 06-06-2019 [facility] (85150) Comment: Performed By: #### CBC, PT, PTT, BMP, MG1 ####[place] [phone] GFR/1.73 sq M >60 >60 mL/min/{1.73_m2} Normal 0 [facility] predicted among (000 00) non-blacks MDRD (S/P/Bld) [Vol rate/Area] Comment: Performed By: #### CBC, PT, PTT, BMP, MG1 ####[address] [phone] Glucose [Mass/Vol] 110 65-100 mg/dL High 06-06-2019 [facility] (81932) Comment: Performed By: #### CBC, PT, PTT, BMP, MG1 ####[address] [phone] Potassium [Moles/Vol] 4.6 3.5-5.0 mmol/L Normal 06-06-19 [facility] (22371) Comment: Performed By: #### CBC, PT, PTT, BMP, MG1 ####[address] [phone] Sodium [Moles/Vol] 141 135-146 mmol/L Normal 06-06-2019 [facility] (18810) Comment: Performed By: #### CBC, PT, PTT, BMP, MG1 ####[address] [phone] Urea nitrogen [Mass/Vol] 12 10-25 mg/dL Normal 06-06 [facility] (71520) Comment: Performed By: #### CBC, PT, PTT, BMP, MG1 ####[address] [phone] aptt on 2019-06-06 aPTT Coag (Bld) [Time] 30.3 23.0-32.4 sec Normal 020 [facility] (10947) Comment: Result Comment: Unfractionat ed Heparin Therapeutic Ranges: Standard Heparin Nomogram: 5 3 to 78 seconds (anti-Xa level of 0.3 to 0.7 U/ml) Low Dose/ACS Nomogram: 49 to 67 seconds (anti-Xa level of 0.2 to 0.5 U/ml) Stroke Treatment Nomogram: 4 9 to 67 seconds (anti-Xa level of 0.2 to 0.5 U/ml) Note: The APTT therapeutic r raza has been determined for the current lot of laboratory APTT reagent in use throughout the [facility]. Performed By: #### CBC, PT, PTT, BMP, MG1 ####[facility] [place], [place] [phone] anes pre-op on 2019 ANES PRE-OP HNO ID: [id number] Normal 0 [facility] Author: Bebo Barboza ([id number]) Service: ? Author Type: Anesthesiologist Type: Anesthesia Preprocedure Evaluation Filed: 06/06/2019 7:40 AM Note Text: ANESTHESIOLOGY DAY OF SURGERY NOTE : 1945 Procedure(s) (LRB): BYPASS GRAFT ARTERY CORONARY ON-PUMP SINGLE CORONARY ARTERIA L GRAFT (N/A) Surgeon(s): Nj Turner Estimated body mass index is 26.25 kg/m? as calculated from the following: Height as of this encounter: 170.2 cm (5' 7). Weight as of this encounter: 76 kg (167 lb 9.6 oz). Most recent hematocrit and potassium results: Hematocrit 49.1 06/06/2019 Potassium 4.2 06/05/2019 Relevant Problems ANESTHESIA (+) HARLEY on CPAP CARDIO (+) CAD (coronary artery disease) (+) Dyspnea on exertion (+) HTN (hypertension) PULMONARY (+) Dyspnea on exertion (+) HARLEY on CPAP I - PHYSICAL EVALUATION AIRWAY Patient intubated: No. Mallampati: III. TM distance: >3 FB. Neck ROM: full. Mouth opening: adequate. DENTAL Dental findings: teeth intact. Additional comments: Chipped left upper. II - ANESTHESIA PLAN ASA Score: 4 Anesthetic plan: general. Monitoring plan: MARK, Invasive hemodynamic monitoring and St andard ASA. Postoperative analgesic plan: parenteral or oral opioids and multimodal analgesia. Anesthetic Risks, Benefits, Alternatives, Personnel Discusse d. Consent obtained from: patient. Patient / Surrogate agrees to blood products: yes NPO Status: adequate. Significant changes in the patient condition since the Histo ry and Physical, not otherwise documented in primary service progre ss note: no. Potential Anesthesia issues that may suggest increased risk of complications or contractions to planned procedure: potentia l difficult intubation. I have interviewed and examined the patient. I have reviewed the medical record and/or the pre-anesthesia evaluation, pertinent labs, and test results. This contains updated information obtained within 48 hours o f Surgery/Procedure. SIGNATURE: Bebo Barboza MD PATIENT NAME: Jocelyn guerin DATE: June 06, 2019 TIME: 7:39 AM CSN: [id number] allied [facility] on 14-06-11 [facility] HNO ID: [id number] Normal [address] [place] [address] Author: Bryon Tompkins (Rt) ([id number]) Service: Radiology Author Type: Mill Attendant Type: [facility] Filed: 06/06/2019 3:23 PM Note Text: Radiology Service Progress Note PATIENT NAME: Jocelyn Loaiza DATE OF SERVICE: June 06, 2019 TIME: 3:23 PM PATIENT IDENTITY VERIFICATION COMPLETED USING TWO (2) IDENTI FIERS: Name and Date of confirmed by identification band and Name and Date of obtained from a relative, guardian or prior caregiver. . PATIENT GENDER DATA: Male PATIENT RELEVANT IMPLANT DATA REVIEWED: Not Applicable RADIOLOGY DEPARTMENT: General X-ray: Exam(s) Completed: Ches t X-Ray PERIPHERAL IV DATA: Not applicable SIGNED BY: RT Turner June 06, 2019 3:23 PM [facility] HNO ID: [id number] Normal [address] [place] [address] Author: Zee Price (Mgr) ([id number]) Service: Cardiac Rehab Author Type: Educator Type: [facility] Filed: 06/06/2019 6:46 AM Note Text: CARDIAC REHABILITATION PATIENT 5 METER WALK TEST NOTE Name: Jocelyn Loaiza Date of Service: 06/06/2019 Time of Service: 06/06/2019 ASSESSMENT: 5 Meter Walk Test 5 Meter Walk Test Completed: Yes Trial 1 # of Seconds: 7.23 Trial 1 Assistive Device: IV Pole Trial 2 # of Seconds: 7.36 Trial 2 Assistive Device: IV Pole Trial 3 # of Seconds: 7.18 Trial 3 Assistive Device: IV Pole Signature: Trent Dunn Ed Pager: [phone] Date: June 06, 2019 Time: 6:45 AM urinalysis on 06-05 Bacteria LM.HPF Rare Negative Critically abnormal 05-26 [facility] (Urine sed) (71302) [#/Area] Comment: Performed By: #### UA ####[place] [phone] Bilirubin, Urine Negative Negative Normal 06-05-2019 [facility] (28637) Comment: Performed By: #### UA ####[place] [phone] Clarity (U) Clear Clear Normal 06-05-2019 [facility] (79913) Comment: Performed By: #### UA ####[phone] Color (U) Yellow Yellow Normal 06-05-2019 [facility] (56998) Comment: Performed By: #### UA ####[phone] Comments SEE COMMENT Normal 06-05-2019 [facility] (26556) Comment: Result Comment: Microscopic Examination Performed Performed By: #### UA ####[place] [phone] Glucose Ql (U) Negative Negative Normal 06-05-2019 [facility] (56199) Comment: Performed By: #### UA ####[phone] Hemoglobin/Blood,Ur Negative Negative Normal 06-05-2019 [facility] (25348) Comment: Performed By: #### UA ####[phone] Ketones Ql (U) Negative Negative Normal 06-05-2019 [facility] (91895) Comment: Performed By: #### UA ####[phone] Leukest Negative Negative Normal 06-05-2019 [facility] (10705) Comment: Performed By: #### UA ####[place] [phone] Nitrite Ql (U) Negative Negative Normal 06-05-2019 [facility] (45040) Comment: Performed By: #### UA ####[place] [phone] pH (Bld) 7.0 5.0-8.0 Normal 06-05-2019 [facility] (79592) Comment: Performed By: #### UA ####[place] [phone] Protein (U) 30 Negative mg/dL Critically abnormal 06-05-19 20 [facility] [Mass/Vol] (73684) Comment: Performed By: #### UA ####[place] [phone] RBC (U) [#/Vol] 5-10 Negative Critically abnormal 05-26 [facility] (64089) Comment: Performed By: #### UA ####[place] [phone] Specific [place], Ur >1.030 1.005-1.030 High 020 [facility] (16192) Comment: Result Comment: Corrected on 06/05 AT 1845: Previously reported as 1.045 Performed By: #### UA ####[place] [phone] Urobilinogen Qn (U) <2.0 <2.0 Normal 06-05-2019 [facility] (95495) Comment: Performed By: #### UA ####[place] [phone] WBC (Bld) [#/Vol] Rare Negative Critically abnormal [facility] (02814) Comment: Performed By: #### UA ####[place] [phone] type and screen on 2019-06-05 ABO/RH(D) O POSITIVE Normal 06-05-2019 [facility] (77400) Comment: Performed By: #### TSCR #### [place] [phone] staph aureus pcr on 2019-06-05 MRSA PCR Negative for MRSA by PCR. Normal 05-26 [facility] (12236) Comment: Performed By: #### SAPCR ### [address] [phone] d [facility] [phone] S aureus Spec Source Nasal Normal 0 [facility] (39252) Comment: Performed By: #### SAPCR ### [address] [phone] d [facility] [phone] Staph aureus PCR Negative for Normal 06-05-2019 [facility] Staphylococcus aureus by ([id number]) PCR. Comment: Performed By: #### SAPCR ### [address] [phone] [address] [place] [phone] ptt,anticoag therapy on 2019-06-05 aPTT Coag (Bld) [Time] 36.8 23.0-32.4 sec High 020 [facility] (45577) Comment: Result Comment: Unfractionat ed Heparin Therapeutic Ranges: Standard Heparin Nomogram: 5 3 to 78 seconds (anti-Xa level of 0.3 to 0.7 U/ml) Low Dose/ACS Nomogram: 49 to 67 seconds (anti-Xa level of 0.2 to 0.5 U/ml) Stroke Treatment Nomogram: 4 9 to 67 seconds (anti-Xa level of 0.2 to 0.5 U/ml) Note: The APTT therapeutic r raza has been determined for the current lot of laboratory APTT reagent in use throughout the [facility]. Performed By: #### CBC, PT, PTTAC #### [address] [address] protime on PT Coag (PPP) [Time] 1.1 0.9-1.3 s Normal 0 [facility] (07414) Comment: Result Comment: Vitamin K An tagonist (VKA) Therapeutic Range: INR 2 to 3 (Target INR of 2.5) Note: For patients treated w ith VKA drugs, such as warfarin, the [place] [employer] 2012 Guideline recommends a therapeutic INR range of 2 to 3 (target INR of 2.5). This recommendation includes high-risk patients with antiphospholipid syndrome with previous arterial or venous thromboembolism, current-generation mechanical or bioprosthetic aortic heart valve replacement. Note: Patients with electrical and instrument mechanic al aortic valve replacement and additional risk factors for thromboembolic events (atrial fibrillation, previous thromboembolism, LV dysfunction, hypercoagulable conditions) or an older generation mecha nical AVR (i.e., ball in-Cage) or any mechanical MVR should have a INR therapeutic range of 2.5 to 3.5 (target INR of 3). Christelle GH, et al. Chest 2012 , 141:7S-47S Ellen RA et al. [facility] 20 , 70: 252-289 Performed By: #### CBC, PT, PTTAC #### [place] [address] PT Coag (PPP) [Time] 11.8 9.7-13.0 sec Normal 0 [facility] (08438) Comment: Performed By: #### CBC, PT, PTTAC #### [place] [address] prealbumin on 06-05 Prealbumin [Mass/Vol] 32 17-36 mg/dL Normal 06-05-19 20 [facility] (61772) Comment: Performed By: #### BMP, MG1 ####[place] [phone] [phone]#### PREALB ####[facility] [address] [place], [place] [phone] operative no on OPERATIVE NO HNO ID: [id number] Normal 06-05-19 20 [facility] Author: Rich Dougherty ([id number]) Service: Cardiovascular Disease Author Type: Physician Type: Operative Report Filed: 06/05/2019 2:20 PM Note Text: ELECTRICAL PROJECT ENGINEER PROCEDURE REPORT SERVICE DATE: 06/05/2019 SERVICE TIME: REUSE TECHNICIAN: Rich Dougherty MD ATTENDING: Rich Dougherty PRIMARY CARE PHYSICIAN: Bella Santos MD REFERRING PROVIDER: [facility] STUDY OF HEALTH and AGING SCALE:2=Well CARDIOVASCULAR INSTABILITY:No PRE-PROCEDURE DIAGNOSIS: 1. Angina, Unstable POST PROCEDURE DIAGNOSIS: 1. 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 Normal carotid arteries PROCEDURE: 1. Left Heart Catheterization 2. LV Gram 3. bilatrela selevtive carotid angiogram MODERATE SEDATION: Moderate Sedation provided by Cardiology Nursing Staff. Moderate sedation consisting of continuous ECG, pulse oximet ry and cardiopulmonary monitoring was performed by the Cardiology N rosario, overseen by supervising physician, for an intra-service time of 1 hr. 0 min. Sedative Medications: Drug: Versed Dose: 1 mg Route: IV Drug: Fentanyl Dose: 50 mcg Route: IV PRIORITY AT TIME OF PROCEDURE: Elective SITE OF ENTRY: Radial:Right Radial CONTRAST: Low Osmolar Omnipaqe (iohexol) Injection 350mgI/ml : 85 mL LEFT HEART CATHETERIZATION AND FINDINGS: The patient was taken to the cardiac production laborer where the entr y site was prepped and draped in a sterile manner. Under local anesthes ic with 2% Lidocaine, the vessel was cannulated with micropuncture tech nique using an arterial needle and Ultrasound was used to visualize and sabra de the entry into the vessal and a 5F sheath was introduced. Selective injections were made in the left and right coronar y arteries and various right, left and oblique views were obtained. The aor tic valve was crossed and hemodynamic measurements were recorded. LV Angio gram was performed. ADDITIONAL PROCEDURES bilateral carotid angiogram 1- Right carotid: Common: normal Internal: normal External: normal HAZEL: normal MCA: normal 2- Left carotid: Common: normal Internal: normal External: normal HAZEL: normal MCA: normal Arch: CORONARY ANGIOGRAPHY: LEFT MAIN TRUNK: No Stenosis LEFT ANTERIOR DESCENDIN% Stenosis Location: Proximal, M id, Diffuse, Calcified DIAGONAL #1: 60% Stenosis Location: Proximal LEFT CIRCUMFLEX: Chronic Total Occlusion Location: Proximal CO-DOMINANT: YES POSTERIOR DESCENDING: Not Visualized RIGHT CORONARY: Chronic Total Occlusion Location: Proximal COLLATERAL CIRCULATION: From LAD to RCA and LCX LV GRAM: LVEF: Normal ( 55% or Greater) WALL MOTION: Normal MITRAL VALVE REGURGITATION: Not Assessed HEMODYNAMICS: LVEDP: 10 LV - AORTA: No Gradient The sheath was removed and hemostatsis was established using manual pressure using wrist band. There was no bleeding at the end of the procedure. The pt was returned to the recovery room in a sta ble condition. ESTIMATED BLOOD LOSS: Less Than Minimal Unless Noted Here. COMPLICATIONS: None SPECIMENS: No specimens obtained unless noted here. CONDITION: Stable RECOMMENDATIONS: Follow protocol of post-op orders. CABG. SIGNATURE: Rich Dougherty MD PATIENT NAME: Jocelyn Loaiza DATE: June 05, 2019 TIME: 2:15 PM nursing prog on NURSING HNO ID: [id number] Normal 06-05-2019 [facility] Author: Trish KarimiRn) [facility] Service: ? ([id number]) Author Type: Registered Nurse Type: Nursing Progress Note Filed: 06/05/2019 8:43 PM Note Text: Nursing Progress Note Patient Name: Jocelyn Loaiza Patient Location: [id number] {shift note Hibiclens bath completed,Heparin infusion stared as ordered. This note was completed by: Trish Min RN NURSING HNO ID: [id number] Normal 06-05-2019 [employer] [facility] PRO Author: Trish KarimiRn) [facility] Service: ? ([id number]) Author Type: Registered Nurse Type: Nursing Progress Note Filed: 06/05/2019 5:18 PM Note Text: Nursing Progress Note Patient Name: Jocelyn Loaiza Patient Location: [id number] {shift note Pt taking dinner well,see NPR.No c/o offerred.R radial site WNL.Call light in reach.Family at bedside. This note was completed by: Trish Min RN NURSING HNO ID: [id number] [place] 06-05-2019 [place] Author: Keya KarimiRn) [facility] Service: Nursing () Author Type: Registered Nurse Type: Nursing Progress Note Filed: 06/05/2019 3:15 PM Note Text: Nursing Progress Note Patient Name: Jocelyn Loaiza Patient Location: [id number] Pt ordering meal. Denies pain. Call pinto ion reach. Report g sage to TIMOTHY Chambers This note was completed by: Keya Gant RN NURSING HNO ID: [id number] [place] 06-05-2019 [place] Author: Keya KarimiRn) [facility] Service: Nursing () Author Type: Registered Nurse Type: Nursing Progress Note Filed: 06/05/2019 3:12 PM Note Text: Admission/Transfer Note PATIENT NAME: Jocelyn Loaiza 1445: Patient admitted from production laborer via bed in stable condi tion. SB noted on bedside monitor. Rt radial TR band in place with reported 100c air, site WNL, radial pulse palpable. See NPR. Call pinto in reach . Actions taken: Patient oriented to room, call light function and prescribed activities. The patient has been instructed on th e plan of care. Report rec'd from TIMOTHY De La Garza. Patient belongings with roberto carlos leach. Pt's daughter at bedside. This note was completed by: Keya Gant RN NURSING HNO ID: [id number] Normal 06-05-2019 [place] [facility] Author: Anne Marie (Rn) TIMOTHY Davila [facility] Service: Nursing ([id number] [phone]) Author Type: Registered Nurse Type: Nursing Progress Note Filed: 06/05/2019 11:59 AM Note Text: [id number] Pre-op completed. IV inserted; current labs on chart. E KG and prep done. Family to bedside. magnesium on 06-05 Magnesium [Mass/Vol] 1.8 1.7-2.6 mg/dL Normal 0 [facility] ([id number]) Comment: Performed By: #### BMP, MG1 ####[facility] [place], [place] [id number] [phone]#### PREALB ####[facility] [address] [place], [place] [phone] history physical on 2019-06-05 HISTORY PHYSICAL HNO ID: [id number] Normal 05-26 [facility] Author: Robina Ashford ([id number]) Service: Cardiovascular Disease Author Type: Physician Or Director Type: HANDP Filed: 06/05/2019 12:31 PM Note Text: UPDATED HANDP PRE-CARDIAC CATHETERIZATION SERVICE DATE: 06/05/2019 SERVICE TIME: 12:28 PM PHYSICAL EXAM MUST BE COMPLETED ON ADMISSION The History and Physical (completed in the past 30 days) has been reviewed and the patient has been examined. The contents accurately r eflect the patient's condition with the following additions or revision s since the HANDP was completed. Examination indicates that patient having unspecified chest pain and his louver door assembler advised to have cardiac cath. Planned Procedure: Left Heart Cath Primary Indication for Procedure: unspecified chest pain High Risk Features: History of Prior CABG: No History of Prior PCI: No Cardiomyopathy: No Anti-ischemic Meds in Past 2 Weeks: Beta blockers and Other anti-ischemic drug therapy Ejection Fraction: None Risk Appropriateness: Angina Class in Past 2 Weeks: Class III - Marked limitation of ordinary physical activity Cardiogenic Shock: NoHeart Failure: None Stress Test Performed: None EKG Assessment: Normal Family History of Premature CAD: None Evaluation for Preop Clearance:no HISTORY OF BLEEDING: No This HANDP can be found in the Electronic Medical Record [facility] ed . SIGNATURE: Robina Ashford PA-C PATIENT NAME: Jocelyn ernst DATE: June 05, 2019 TIME: 12:28 PM PAGER: ecg complete on ECG COMPLETE NAME : JOCELYN LOAIZA 05-26 [facility] PID : [id number] ([phone]) : 1945 Gender : Male Race : ORD : [id number] Procedure Date : Jun 05 2019 11:43:50 Edit Date : Jun 06 2019 09:54:49 Diagnosis:Sinus rhythm Atrial premature complex Probable left atrial enlargement Left anterior fascicular block Abnormal R-wave progression, early transition Left ventricular hypertrophy Abnormal ECG Confirmed by RENITA FARIAS M.D. ([id number]) on 06/06/2019 9:54 :48 AM Ventricular Rate : 52 BPM Atrial Rate : 52 BPM P-R Interval : 170 ms QRS Duration : 100 ms Q-T Interval : 454 ms QTC Calculation(Bazett) : 423 ms P Sobieski : 66 degrees R Sobieski : -49 degrees T Sobieski : 10 degrees Test Reason : Pre OP Location : 400 : FVEKG 26 Overread By : RENITA FARIAS M.D. Edited By : RENITA FARIAS M.D. Referred By : , Acquired by : TEJA, consult on CONSULT HNO ID: [id number] Normal 06-05-2019 [facility] Author: Nj Turner ([id number]) Service: Cardiac Surgery Author Type: Physician Type: Consults Filed: 06/05/2019 5:07 PM Note Text: Cardiac Surgery CONSULT SERVICE DATE: 06/05/2019 SERVICE TIME: 3:01 PM I have reviewed the documentation obtained and documented by the Physician Or Director and have reviewed and updated the problem list as appropriate. I have personally performed a face to face assessment of the patient and have personally participated in the olivares components. I spent 50% of the time counseling and discussing operative options The patient needs cabgx3 and the surgery will be scheduled f or tomorrow. I spent 25 minutes with the patient. REASON FOR CONSULT: CAD REQUESTING PHYSICIAN: Dr. Dougherty PRIMARY CARE PHYSICIAN: Bella Santos MD Subjective CC: SOB Mr. Loaiza is a 73 year old male with pmhx of HTN, HLD,and HARLEY on CPAP who presented to [facility] complaining of worsening dy spnea on exertion over the last several weeks. He ius very active exe rcising regularly, hiking, and lifting weights. Since symptoms start ed he has not been able to participate in his exercise routine. He denies chest pain, radiation of pain, palpitations, n/v, or diaphoresis. Patien t had CT of the chest which did not show any evidence of PE but did show significant coronary artery calcification. Troponin was negative and no EKG changes were evident. Cardiology was consulted and recommended an el ective coronary angiogram that was done today that revealed multive ssel CAD for which cardiac surgery was consulted. CATH: ADDITIONAL PROCEDURES bilateral carotid angiogram ? 1- Right carotid: Common: normal Internal: normal External: normal HAZEL: normal MCA: normal ? 2- Left carotid: Common: normal Internal: normal External: normal HAZEL: normal MCA: normal Arch: ? CORONARY ANGIOGRAPHY: LEFT MAIN TRUNK: No Stenosis ? LEFT ANTERIOR DESCENDIN% Stenosis Location: Proximal, M id, Diffuse, Calcified ? DIAGONAL #1: 60% Stenosis Location: Proximal ? ? LEFT CIRCUMFLEX: Chronic Total Occlusion Location: Proximal CO-DOMINANT: YES POSTERIOR DESCENDING: Not Visualized ? RIGHT CORONARY: Chronic Total Occlusion Location: Proximal ? ? COLLATERAL CIRCULATION: From LAD to RCA and LCX ? LV GRAM: LVEF: Normal ( 55% or Greater) WALL MOTION: Normal MITRAL VALVE REGURGITATION: Not Assessed ? Patient denies problems with anesthesia in the past, PE, DVT , COPD, asthma, bleeding or clotting disorders, seizures, strokes, v ein stripping, gastric ulcers, dysphagia, thyroid or renal disease, DM, or AC use. He is a former 1ppd smoker - quit in 1976 and smoked for 7 y ears He drinks etoh 2-4 times per month He denies a family history of CAD PAST MEDICAL HISTORY Diagnosis Date - Dyslipidemia - Dyspnea on exertion - Former smoker, stopped smoking in distant past - HTN (hypertension) - Kidney stones - HARLEY on CPAP - Rosacea PAST SURGICAL HISTORY Procedure Laterality Date - COLONOSCOP W/ OR W/O [facility] SPEC 02/15/2019 Colonoscopy - COLONOSCOPY 2006 - HERNIA REPAIR HX childhood and 2007 x3 - PAST SURGICAL HISTORY OF lithotripsy, multiple - PAST SURGICAL HISTORY OF laser prostate - TONSILLECTOMY HX FAMILY HISTORY Problem Relation Age of Onset - other (No CAD) Father - Cancer Mother , lung - Cancer Brother thyroid Social History Tobacco Use - Smoking status: Former Smoker Packs/day: 1.00 Years: 7.00 Pack years: 7.00 Types: Cigarettes Last attempt to quit: 12/27/1976 Years since quittin.4 - Smokeless tobacco: Never Used - Tobacco comment: on and off Substance Use Topics - Alcohol use: Yes Frequency: 2-4 times a month Drinks per session: 1 or 2 Binge frequency: Never Comment: occasional - Drug use: No atenolol (TENORMIN) 50 mg tablet, Take 1 tablet by mouth onc e daily., Disp: 90 tablet, Rfl: 2, 06/05/2019 at 0630 aspirin, enteric coated (ASPIRIN, ENTERIC COATED) 81 mg EC t ablet, Take 81 mg by mouth once daily., Disp: , Rfl: , 06/04/2019 at Unknown time atorvastatin (LIPITOR) 10 mg tablet, Take 10 mg by mouth onc e daily., Disp: , Rfl: , 06/04/2019 at Unknown time nitroglycerin sublingual (NITROSTAT) 0.4 mg SL tablet, Disso lve 1 tablet under the tongue as needed for Chest Pain. If no pain relief call 911., Disp: 1 Bottle of 25, Rfl: 0, Unknown at prn perflutren lipid microspheres (DEFINITY) 1.1 mg/mL injection (to be provided with echo procedure), Inject 1.3 mL intravenously a s directed. Administration Instructions: If no IV access, insert saline lock prior to administering contrast. Discontinue saline lock post exam. I f patient has central line or IVAD, may access for administration accordin g to line specific nursing protocol. Once exam is complete, flush line and de-access per line specific nursing protocol. Diluted IV Bolus: Dilute 1.3 ml of Definity with 8.7 ml of preservative-free saline., Disp: 1.3 mL, Rfl: 0, Unknown at Unknown time perflutren lipid microspheres (DEFINITY) 1.1 mg/mL injection (to be provided with echo procedure), Inject 1.3 mL intravenously a s directed. Administration Instructions: If no IV access, insert saline lock prior to administering contrast. Discontinue saline lock post exam. I f patient has central line or IVAD, may access for administration accordin g to line specific nursing protocol. Once exam is complete, flush line and de-access per line specific nursing protocol. Diluted IV Bolus: Dilute 1.3 ml of Definity with 8.7 ml of preservative-free saline., Disp: 1.3 mL, Rfl: 0, Unknown at Unknown time sulfacetamide sodium-sulfur 9.8-4.8 % lotn, Apply thin film to affected area 1 times daily., Disp: , Rfl: , Unknown at prn Current Facility-Administered Medications Medication Dose Route Frequency - NaCl 0.9% 75 mL 75 mL INTRAVENOUS CONTINUOUS - perflutren lipid microspheres 1.1 mg/mL 1.3 mL injection ( DEFINITY) 1.3 mL INTRAVENOUS DIRECTED PRN - heparin iv infusion (LOW DOSE ACS/NOMOGRAM) 25,000 units i n NaCl 0.45% 250 mL PREMIX 0-3,000 Units/hr INTRAVENOUS CONTINUOUS And - heparin RATE CHANGE bolus 1,000-4,000 Units for subtherape utic aptt results 1,000-4,000 Units INTRAVENOUS PRN - heparin nomogram INITIAL BOLUS - LOW DOSE/ACS 4,000 Units INTRAVENOUS ONCE (heparin bolus) ALLERGIES No Known Allergies COMPLETE REVIEW OF SYSTEMS: GENERAL: No weight loss, malaise or fevers RESPIRATORY: Shortness of breath CARDIOVASCULAR: Shortness of breath, See HPI GI: No nausea, vomiting, or diarrhea : No history of dysuria, frequency or incontinence MUSCULOSKELETAL: Negative for joint pain or swelling, back p ain or muscle pain SKIN: Negative for lesions, rash, and itching HEMATOLOGY/LYMPHOLOGY: Negative for prolonged bleeding, brui sing easily or swollen nodes ENDOCRINE: Negative for cold or heat intolerance, polyuria, polydipsia and goiter NEURO: No history of headaches, syncope, paralysis, seizures or tremors Objective PHYSICAL EXAM: GENERAL: Alert, no distress, cooperative SKIN: Skin color, texture, turgor normal. No rashes or lesio ns. NECK: Supple LUNGS: Lungs clear to auscultation, Good diaphragmatic excur alexia CARDIAC: Normal S1 and S2; no rubs, murmurs, or gallops ABDOMEN: Abdomen soft, non-tender, BS normal, No masses or o rganomegaly EXTREMITIES: Extremities normal, no deformities, edema, club marion or skin discoloration. Good capillary refill., No ulcers NEURO: Negative findings: speech normal, mental status intac t PULSES: 2+ radial Patient Vitals for the past 24 hrs: BP Temp Temp src Pulse Resp SpO2 Height Weight 06/05/19 1445 ? 36.6 ?C (97.9 ?F) Oral ? 06/05/19 1443 144/81 ? ? (!) 54 17 98 % ? ? 06/05/19 1152 ? 10 95 % ? ? 06/05/19 1135 156/99 36.2 ?C (97.2 ?F) Tympanic (!) 56 ? ? 1 70.2 cm (5' 7) 76 kg (167 lb 9.6 oz) Body mass index is 26.25 kg/m?. Diagnostic tests reviewed for today's visit: Most recent labs and imaging results. ECHO: MEASUREMENTS: ?Value ?Indexed ? ?Evi l Max aortic dimension ? ? 4.1 cm ?Ao < 3.8 Left atrium diameter ? ? 3.7 cm (M-Mode) Left atrial volume ? ? ? 64 ml (4ch A-L) ? ?33 ml/m? ? Ru <= 34 LV ID (diastole) ? 4.4 cm (2D) ?2.31 cm/m? LV ID (systole) ?3.3 cm (2D) ?1.74 cm/m? IVS, leaflet tips ?1.1 cm (2D) Posterior wall thickness 1.0 cm (2D) Left ventricular mass ? ?164 g (2D) ? 86 g/m? LV stroke volume ? 63 ml (2D biplane) LV end diastolic volume ?95 ml (2D biplane) 49.6 ml/m? 34<=E DVi<75 LV end systolic volume ? 32 ml (2D biplane) 16.8 ml/m? Ejection Fraction ?66 % (2D biplane) ? EF > 52 ? FINDINGS: ? LEFT VENTRICLE The left ventricle is normal in size. Left ventricular systolic function is normal. Grade I left ventricular diastolic dysfunction. Mitral annular lateral E/e': 7.4. Mitral annular septal E/e' : 11.9. Wall Motion: All scored segments are normal. ? ? RIGHT VENTRICLE The right ventricle is normal in size. Right ventricular systolic function is normal. RV systolic t issue Doppler velocity ?is 14.0 cm/s. Tricuspid annular displacement is 2.8 cm. Estimated right ventricular systolic pressure is not reporte d due to an insufficient tricuspid regurgitation signal. Estimated right atrial pressure is 8 mmHg based on IVC assessment. ? LEFT ATRIUM The left atrial cavity is normal in size. ? RIGHT ATRIUM The right atrial cavity is normal in size. Inferior Vena Cava: The inferior vena cava appears normal measuring 1.1 cm. The vessel decreases less than 50 percent with inspiration. MITRAL VALVE The mitral valve leaflets are structurally normal. There is trace (trace - 1+) mitral valve regurgitation. The pressure half time is 72 mse c. The peak mitral E/A ?ratio is 0.76. The average mitral E/e' ratio is 9.6. The mi tral flow deceleration ?time is 248 msec. ? TRICUSPID VALVE The tricuspid valve leaflets are structurally normal. There is trace tricuspid valve regurgitation. ? AORTIC VALVE The aortic valve cusps are structurally normal. There is tra ce aortic valve regurgitation. Tricuspid aortic valve. The peak gradient is 6 mmHg (peak velocity = 126.9 cm/s). ? PULMONIC VALVE The pulmonic valve cusps are structurally normal. There is t race pulmonic valve regurgitation. ? AORTA The visualized aorta is dilated. Measurements - Sinus: 4.0 cm. Sinotubular junction 3.4 cm. M id ascending aorta 4.1 ?cm. Distal ascending aorta 3.8 cm. PULMONARY ARTERIES The pulmonary arteries are unseen or not interrogated. ? PERICARDIUM There is no pericardial effusion. There is an epicardial fat pad. ? CONCLUSIONS: - Exam indication: ZAMORANO - The left ventricle is normal in size. Left ventricular sys tolic function is normal. EF = 66 ? 5% (2D biplane) Grade I left ventricular d iastolic dysfunction. - The right ventricle is normal in size. Right ventricular s ystolic function is normal. - There are no significant valvular abnormalities. - The visualized aorta is dilated with a maximal dimension o f 4.1 cm. - There are no significant valvular abnormalities. - The patient has not had a prior CC echocardiographic exam for comparison. Impression/Recommendations 73 year old male with newly discovered multivessel CAD - sta ble -pre-op education performed with patient and family -pre-op work up initiated -discussed with Dr. Turner, CABG tomorrow SIGNATURE: Feliberto Guaman PA-C PATIENT NAME: Jocelyn ernst DATE: June 05, 2019 TIME: 3:00 PM PAGER/CONTACT #: cbc on 2019-06-05 Erythrocyte distribution 12.3 11.5-15.0 % Normal 06-05 [facility] width (RBC) [Ratio] ([id number]) Comment: Performed By: #### CBC, PT, PTTAC #### [place] [phone] Hematocrit (Bld) [Volume 49.5 39.0-51.0 % Normal 06-05 [facility] fraction] ([id number]) Comment: Performed By: #### CBC, PT, PTTAC #### [place] [phone] Hemoglobin (Bld) 16.6 13.0-17.0 g/dL Normal 06-05-2019 [facility] [Mass/Vol] (33830) Comment: Performed By: #### CBC, PT, PTTAC #### [phone] MCH (RBC) [Entitic mass] 31.3 26.0-34.0 pG Normal 06-05 [facility] ([id number]) Comment: Performed By: #### CBC, PT, PTTAC #### [place] [phone] MCHC (RBC) [Mass/Vol] 33.5 30.5-36.0 g/dL Normal 06-05-[address] [place] [address] (08771) Comment: Performed By: #### CBC, PT, PTTAC #### [place] [phone] MCV (RBC) [Entitic vol] 93.4 80.0-100.0 fL Normal 06-05 [facility] (84240) Comment: Performed By: #### CBC, PT, PTTAC #### [place] [address] Platelet mean volume 10.0 9.0-12.7 fL Normal 0 [facility] (72515) (Bld) [Entitic vol] Comment: Performed By: #### CBC, PT, PTTAC #### [place] [address] Platelets (Bld) [#/Vol] 304 150-400 k/uL Normal 2019 [facility] (30556) Comment: Performed By: #### CBC, PT, PTTAC #### [place] [address] RBC (Bld) [#/Vol] 5.30 4.20-6.00 m/uL Normal 06-05-2019 [facility] (03112) Comment: Performed By: #### CBC, PT, PTTAC #### [place] [phone] WBC (Bld) [#/Vol] 7.10 3.70-11.00 k/uL Normal 06-05-2019 [facility] (29466) Comment: Performed By: #### CBC, PT, PTTAC #### [place] [address] basic metabolic panl on 2019-06-05 Anion gap [Moles/Vol] 10 9-18 mmol/L Normal 06-05-19 20 [facility] (79750) Comment: Performed By: #### BMP, MG1 ####[place] [phone]#### PREALB ####[facility] [address] [place], [place] [phone] Calcium [Mass/Vol] 9.5 8.5-10.5 mg/dL Normal 06-05-2019 [facility] ([id number]) Comment: Performed By: #### BMP, MG1 ####[place] [phone]#### PREALB ####[place] [address] [address] [place] [phone] Chloride [Moles/Vol] 105 98-110 mmol/L Normal 0 [facility] (90330) Comment: Performed By: #### BMP, MG1 ####[phone]#### PREALB ####[place] [address] [address] [place] [phone] CO2 [Moles/Vol] 24 23-32 mmol/L Normal 06-05-2019 [facility] (92912) Comment: Performed By: #### BRIAN, MG1 ####[phone]#### PREALB ####[place] [address] [address] [place] [phone] Creatinine [Mass/Vol] 0.77 0.70-1.40 mg/dL Normal 06-05-19 20 [facility] (13281) Comment: Performed By: #### BRIAN, MG1 ####[phone]#### PREALB ####[place] [address] [address] [place] [phone] eGFR- Amer. >60 >60 Normal 06-05-2019 [facility] ([id number]) Comment: Performed By: #### BMP, MG1 ####[place] [phone] [phone]#### PREALB ####[place] [address] [address] [place] [phone] GFR/1.73 sq M >60 >60 mL/min/{1.73_m2} Normal 0 [facility] predicted among (000 00) non-blacks MDRD (S/P/Bld) [Vol rate/Area] Comment: Performed By: #### BMP, MG1 ####[place] [phone]#### PREALB ####[place] [address] [address] [place] [phone] Glucose [Mass/Vol] 112 65-100 mg/dL High 06-05-2019 [facility] ([id number]) Comment: Performed By: #### BMP, MG1 ####[place] [phone]#### PREALB ####[place] [address] [address] [place] [phone] Potassium [Moles/Vol] 4.2 3.5-5.0 mmol/L Normal 06-05-19 [facility] (21277) Comment: Performed By: #### BMP, MG1 ####[place] [phone]#### PREALB ####[place] [address] [address] [place] [phone] Sodium [Moles/Vol] 139 135-146 mmol/L Normal 06-05-2019 [facility] (70231) Comment: Performed By: #### BMP, MG1 ####[place] [phone]#### PREALB ####[place] [address] [address] [place] [phone] Urea nitrogen [Mass/Vol] 19 10-25 mg/dL Normal 06-05 [facility] (42510) Comment: Performed By: #### BMP, MG1 ####[place] [phone]#### PREALB ####[place] [address] [address] [place] [phone] arterial blood gas (for west use only) on 2019-06-05 Base Excess 1 mmol/L Normal 06-05-2019 [facility] (09563) Comment: Result Comment: -3 to 3 Performed By: #### ABGR #### [address] [phone] CO2 [Moles/Vol] 25 22.0-28.0 mmol/L Normal 06-05-2019 [facility] (02969) Comment: Performed By: #### ABGR #### [address] [phone] Device Room Air Normal 06-05-2019 [facility] (22778) Comment: Performed By: #### ABGR #### [address] [phone] Drawsite Right Brachial Normal 06-05-2019 [facility] (87278) Comment: Performed By: #### ABGR #### [place] [phone] HCO3 (Bld) [Moles/Vol] 24 22-26 mmol/L Normal 020 [facility] (11120) Comment: Performed By: #### ABGR #### [address] [phone] O2 Administered 21.0 Normal 06-05-2019 [facility] (58691) Comment: Performed By: #### ABGR #### [address] [phone] Oxygen (Bld) [Partial 97 90-98 % Normal 06-05-19 [facility] (18326) pressure] Comment: Performed By: #### ABGR #### [address] [phone] Oxygen (Bld) [Partial 93 80-100 mm Hg Normal 06-05-19 20 [facility] (35061) pressure] Comment: Performed By: #### ABGR #### [address] [phone] pCO2 36 35-48 mm Hg Normal 06-05-2019 [facility] (02185) Comment: Performed By: #### ABGR #### [facility] [place], [place] [phone] pH (Bld) 7.44 7.35-7.45 [pH] Normal 06-05-2019 [facility] (50628) Comment: Performed By: #### ABGR #### [facility] [place], [place] [phone] progress on 2019-05 PROGRESS HNO ID: [id number] Normal 06-04-2019 [facility] Author: Jenn Antoine RN ([id number]) Service: ? Author Type: ? Type: Progress Notes Filed: 06/05/2019 2:53 PM Note Text: Patient returned call. TCM questions answered. Patient is sc heduled for heart cath tomorrow @ [facility] and will call back for ap pointment after that. He states they did not prescribe any new medicat ions but in review of [facility] discharge note, patient was prescribed NTG SL. PROGRESS HNO ID: [id number] Normal 06-04-2019 [facility] Author: Angel Burt LPN ([id number]) Service: ? Author Type: ? Type: Progress Notes Filed: 06/05/2019 2:53 PM Note Text: Left message for pt to call office. Triage- if pt returns call, please f2 through questions in T CM note started below and make appt for pt to see PCP/HEEL REDUCER care team. Jemima Burt LPN PROGRESS HNO ID: [id number] Normal 06-04-2019 [facility] Author: Jenn Antoine RN ([id number]) Service: ? Author Type: ? Type: Progress Notes Filed: 06/05/2019 2:53 PM Note Text: TRANSITION CARE MANAGEMENT (TCM) INITIAL CONTACT Second Operator Outreach Provider Action/FYI: Patient scheduled for heart cath on 06/05/19. Patient says ajith e will make TCM appointment after that. Initial contact with patient post discharge, spoke to yuko shannon 06/04/19 @ 04:20 PM. Patient identified by name and . TRANSITION CARE MANAGEMENT INITIAL OUTREACH DOCUMENTATION: No flowsheet data found. SUMMARY: -Pt discharged from [facility] on 06/02/2019. -Admitted for: Chest pain, SOB Do you have a hospital follow up appointment with your PCP? Appointment on with No appointment made. Patient states he is having a heart cat h tomorrow @ [facility] and will call to schedule after that. MEDICATIONS: Many patients have questions or concerns about their medicat ions once they are home. Were you prescribed any new medications? No Were you told to hold any medications? No Were any of your medications discontinued? No Do you have any questions about getting or taking your medic ations? No Your discharge instructions/After visit Summary (AVS) are im portant in guiding you through the recovery process. Is there anything I might help you understand? No Do you have all the necessary equipment and supplies at home ? Ye Medical records from recent hospitalization: [facility] hosp on 2019-06-04 HOSP Patient:Jocelyn Loaiza Normal 2019 [facility] ) Height:5' 7(1.702 m) Weight:167 lb 9.6 oz (76.023 kg) Outpatient Medications as of 06/06/19: nitroglycerin sublingual (NITROSTAT) 0.4 mg SL tablet perflutren lipid microspheres (DEFINITY) 1.1 mg/mL inj ection (to be provided with echo procedure) perflutren lipid microspheres (DEFINITY) 1.1 mg/mL inj ection (to be provided with echo procedure) atenolol (TENORMIN) 50 mg tablet sulfacetamide sodium-sulfur 9.8-4.8 % lotn aspirin, enteric coated (ASPIRIN, ENTERIC COATED) 81 mg EC t ablet atorvastatin (LIPITOR) 10 mg tablet Admission/Clinic Administered Medications as of 06/06/19: NaCl 0.9% 75 mL perflutren lipid microspheres 1.1 mg/mL 1.3 mL injection (DE FINITY) heparin iv infusion (LOW DOSE ACS/NOMOGRAM) 25,0 00 units in NaCl 0.45% 250 mL PREMIX heparin RATE CHANGE bolus 1,000-4,000 Units for subtherape utic aptt results atorvastatin 10 mg tab(s) (LIPITOR) atenolol 50 mg tab(s) (TENORMIN) aspirin, enteric coated 81 mg tab(s) nitroglycerin sublingual 0.4 mg tab(s) (NITROQUICK) mupirocin 2 % 0.5 g ointment (BACTROBAN) Problem List: Dyspnea on exertion [R06.09] Dyslipidemia [E78.5] HTN (hypertension) [I10] Former smoker, stopped smoking in distant past [Z87.891] HARLEY on CPAP [G47.33, Z99.89] Abnormal PFTs (pulmonary function tests) [R94.2] Rosacea [L71.9] Chest pain [R07.9] CAD (coronary artery disease) [I25.10] Allergies: No Known Allergies Date Verified:06/06/19 Lab Values Lab Value Units Date High Low POTA* 4.2 mmol/L 06/05/2019 5.0 3.5 CLAY* 49.1 % 06/06/2019 51.0 39.0 Progress Notes ([facility]): Jenn Antoine RN 06/05/2019 2:53 PM Signed TRANSITION CARE MANAGEMENT (TCM) INITIAL CONTACT Second Operator Outreach Provider Action/FYI: Patient scheduled for heart cath on 06/05/19. Patient says he will make TCM appointment after that. Initial contact with patient post discha ximena, spoke to patient 06/04/19 @ 04:20 PM. Patient identified by name and . TRANSITION CARE MANAGEMENT INITIAL OUTREACH DOCUMENTATION: No flowsheet data found. SUMMARY: -Pt discharged from [facility] on 06/02/2019. -Admitted for: Chest pain, SOB Do you have a hospital follow up appointment with your PCP? Appointment on with No appointment made. Patient states he is having a hea rt cath tomorrow @ [facility] and will call to schedule after that. MEDICATIONS: Many patients have questions or concerns about their medications once they are home. Were you prescribed any new medications? No Were you told to hold any medications? No Were any of your medications discontinued? No Do you have any questions about getting or taking your medic ations? No Your discharge instructions/After visit Summary (AVS) are important in guiding you through the recovery pro cess. Is there anything I might help you understand? No Do you have all the necessary equipment and supplies at home ? Ye Medical records from recent hospitalization: [facility] Previous Version Angel Burt LPN 06/05/2019 2:53 PM Signed Left message for pt to call office. Triage- if pt returns call, please f2 through questions in TCM note started below and make appt for pt to see PCP/HEEL REDUCER care team. JESSY Garcia RN 06/05/2019 2:53 PM Signed Patient returned call. TCM questions answered. Neisha main is scheduled for heart cath tomorrow @ [facility] and will ca ll back for appointment after that. He states they did not prescribe any new medications but in rev iew of [facility] discharge note, patient was prescribed NTG SL. Progress Notes ([facility]): Estella Ragland Pss 05/16/2019 1:35 PM Signed Contacted patient to schedule with Cardiology at [facility] as requested and they were booking out into June. I scheduled him in [facility] at the end of May but he is having a procedure done with Dr Pro ritter to break up kidney stones on 05/25 and wanted to know if he should see Car diology sooner. Please advise and call patient at [phone]. Thank you Estella Ragland Pss Bella Santos MD 05/16/2019 3:13 PM Signed I think he is OK to go ahead and get the procedure done with Dr Shaffer, and see the Purchasing Administrative Assistant after that. MD Kimi Xiao Cma 05/16/2019 3:22 PM Signed TC to patient. Advised of below message and he verbalized un derstanding. Kimi Gold Cma cnptoutreach on CNPTOUTREACH Patient Outreach ([facility]) Normal 0 06-04-2019 [facility] JOCELYN LOAIZA ([id number]) 1945 [facility] Date Time Provider Department ([id number]) 06/04/19 ANGEL BURT (JESSY) [facility]WS During your visit today, we recorded the following informati on about you: Jenn Antoine RN 06/05/2019 2:53 PM Signed TRANSITION CARE MANAGEMENT (TCM) INITIAL CONTACT Second Operator Outreach Provider Action/FYI: Patient scheduled for heart cath on 06/05/19. Patient says he will make TCM appointment after that. Initial contact with patient post dischissa bueno, spoke to patient 06/04/19 @ 04:20 PM. Patient identified by name and . TRANSITION CARE MANAGEMENT INITIAL OUTREACH DOCUMENTATION: No flowsheet data found. SUMMARY: -Pt discharged from [facility] on 06/02/2019. -Admitted for: Chest pain, SOB Do you have a hospital follow up appointment with your PCP? Appointment on with No appointment made. Patient states he is having a hea rt cath tomorrow @ [facility] and will call to schedule after that. MEDICATIONS: Many patients have questions or concerns about their medications once they are home. Were you prescribed any new medications? No Were you told to hold any medications? No Were any of your medications discontinued? No Do you have any questions about getting or taking your medic ations? No Your discharge instructions/After visit Summary (AVS) are important in guiding you through the recovery pro cess. Is there anything I might help you understand? No Do you have all the necessary equipment and supplies at home ? Ye Medical records from recent hospitalization: [facility] Angel Burt LPN 06/05/2019 2:53 PM Signed Left message for pt to call office. Triage- if pt returns call, please f2 through questions in TCM note started below and make appt for pt to see PCP/HEEL REDUCER care team. JESSY Garcia RN 06/05/2019 2:53 PM Signed Patient returned call. TCM questions answered. Neisha main is scheduled for heart cath tomorrow @ [facility] and will call back for appoin tment after that. He states they did not prescribe any new medications b ut in review of [facility] discharge note, patient was prescribed NTG SL. Allergies As of Date: 06/04/2019 (No Known Allergies) Date Reviewed: 06/02/2019 Reviewed by: Bia KarimiRn) TIMOTHY Rehman - Fully Assessed Reason for Visit: Transition Of Care [3912] Cmt: DC 06/02/2019 [facility] Prescriptions as of 06/04/2019 Sig: NITROGLYCERIN 0.4 MG SUBLINGU* Dissolve 1 tablet under the t * PERFLUTREN LIPID MICROSPHERES* Inject 1.3 mL intravenously a * PERFLUTREN LIPID MICROSPHERES* Inject 1.3 mL intravenously a * ATENOLOL 50 MG TABLET Take 1 tablet by mouth once d* SULFACETAMIDE SODIUM 9.8 %-HARRIS* Apply thin film to affected a * ASPIRIN 81 MG TABLET,DELAYED * Take 81 mg by mouth once bridgette * ATORVASTATIN 10 MG TABLET Take 10 mg by mouth once bridgette* Problem List As Of Date 06/04/2019 Noted Resolved Dyspnea on exertion [R06.09] Dyslipidemia [E78.5] More... HTN (hypertension) [I10] More... Former smoker, stopped smoking in distant past * HARLEY on CPAP [G47.33, Z99.89] More... Abnormal PFTs (pulmonary function tests) [R94.2]12/27/2014 Rosacea [L71.9] Chest pain [R07.9] 06/01/2019 06/02/2019 More... Encounter Status:Closed by BELLA SANTOS MD on 06/05/19 troponin t on 06-02 Troponin T.cardiac <0.010 0.000-0.029 ug/L Normal 0 [facility] [Mass/Vol] ([id number]) Comment: Performed By: #### MARY KATE ####M [facility] [address] [place] [address] Troponin T.cardiac <0.010 0.000-0.029 ug/L Normal 0 [facility] [Mass/Vol] ([id number]) Comment: Performed By: #### MARY KATE ####M [facility] [address] [place] [address] nursing prog on NURSING PROG HNO ID: [id number] Normal 06-02-19 20 [facility] ([id number]) Author: Bia (Rn) TIMOTHY Rehman Service: ? Author Type: Registered Nurse Type: Nursing Progress Note Filed: 06/02/2019 12:01 PM Note Text: Nursing Progress Note Topic of Note: Daily Note Jocelyn Josse [id number]: Assumed care of patient. Patient currently denies any chest pain or shortness of breath on room air. Patient remains stable a nd unchanged on telemetry; SB. Troponin negative to date. Patient awaitin g Cardiology consult. 929: No change in patient's assessment. Telemetry continues ; SB with no changes. Dr. Kay on unit. No reported chest pain or shortnes s of breath. 1115: Patient received discharge order. This note was completed by: Bia Rehman RN magnesium on 06-02 Magnesium [Mass/Vol] 1.9 1.7-2.3 mg/dL Normal 0 [facility] ([id number]) Comment: Performed By: #### BMP, MG1, CBC ####[facility] [address] [place] [address] 0 lipid panel, basic on 2019-06-02 Cholesterol [Mass/Vol] 153 <200 mg/dL Normal 020 [facility] ([id number]) Comment: Performed By: #### HBA1C ### #[facility] [address] [phone]#### LIPB ####[facility] [address] [place], [place] [address]t on [place] [address] Cholesterol in HDL [Mass/Vol] 32 >39 mg/dL Low 06-02-2019 [facility] ([id number]) Comment: Performed By: #### HBA1C ### #[facility] [address] [place] [address]- [phone]#### LIPB ####[facility] [address] [facility] on [place] [address] Cholesterol in LDL [Mass/Vol] 92 <100 mg/dL Normal 06-02-2019 [facility] ([id number]) Comment: Performed By: #### HBA1C ### #[facility] [address] [phone]#### LIPB ####[facility] [address] [facility] [address] [place] [address] Fasting Time Unknown Normal 06-02-2019 [facility] ([id number]) Comment: Performed By: #### HBA1C ### #[facility] [address] [phone]#### LIPB ####[facility] [address] [facility] on [phone] LDL:HDL Ratio 2.88 <2.54 High 06-02-2019 [facility] ([id number]) Comment: Result Comment: Reference: 1. National Cholesterol Educ ation Program ATP III Guideline At-A-Glance Quick Desk Reference: National Heart, Lung, and Blood [place]. National Institutes of Health. 2001: NIH Publication No. 01-3305. 2. An International Atherosc lerosis Society position paper: global recommendations for the management of dyslipidemia: executive summary, Atherosclerosis. 2014: 232(2):410-413. Performed By: #### HBA1C ### #[facility] [address] [phone]#### LIPB ####[facility] [address] on [phone] Non HDL Cholesterol 121 <130 mg/dL Normal 06-02-2019 [facility] (39487) Comment: Performed By: #### HBA1C ### #[facility] [address]CB[address] [place] [phone]#### LIPB ####[facility] [address] [phone] TC:HDL Ratio 4.78 <5.10 Normal 06-02-2019 [facility] (70087) Comment: Performed By: #### HBA1C ### #[facility] [address] [phone]#### LIPB ####[facility] [address] [phone] Triglyceride [Mass/Vol] 144 <150 mg/dL Normal 2019 [facility] ([id number]) Comment: Performed By: #### HBA1C ### #[facility] [address] [place] [phone]#### LIPB ####[facility] [address] on [phone] VLDL Cholesterol 29 <30 mg/dL Normal 06-02-2019 [facility] (66063) Comment: Performed By: #### HBA1C ### [address] [phone]#### LIPB ####[address] on [phone] hemoglobin a1c on HbA1c (Bld) [Mass fraction] 5.2 4.3-5.6 % Normal [facility] (04866) Comment: Result Comment: [place] Claudia betes Association guidelines indicate that patients with HgbA1c in the range 5.7-6.4% are at increased risk for development of diabetes, and intervention by lifestyle modification may be beneficial. HgbA1c greater o r equal to 6.5% is considered diagnostic of diabetes. Performed By: #### HBA1C ### [address] [phone]#### LIPB ####[address] on [phone] HbA1c (Bld) [Mass fraction] 103 mg/dL Normal [facility] (70040) Comment: Result Comment: eAG: (Estima ernie average glucose) is a calculated value from HgbA1c and is hvac sales representative of the average blood glucose level in the last 2-3 month period. Performed By: #### HBA1C ### [address] [phone]#### LIPB ####[address] on [phone] consult on CONSULT HNO ID: [id number] Normal 06-02-2019 [facility] Author: Jerome Neumann ([id number]) Service: Cardiovascular Disease Author Type: Physician Type: Consults Filed: 06/02/2019 12:53 PM Note Text: CONSULT: CARDIOLOGY SERVICE PATIENT NAME: Jocelyn Loaiza DATE of SERVICE: 06/02/2019 TIME of SERVICE: 12:51 PM REASON FOR CONSULT: Dyspnea REQUESTING PHYSICIAN: PRIMARY CARE PHYSICIAN: Bella Santos MD Mr. Loaiza is a 73 year old male with history of HTN and HL D has been having exertional dyspnea for the past few days. His work up including ecg and enzymes were negative and he denies chest pain or jaw pa in or left shoulder pain. He had a negative stress test four years ago and he is supposed to get another stress test next week. No prior NH,C VA,CHF.COPD or thyroid problems. Never had cardiac cath. CT chest showed no PE but extensive calcification of coronaries. He is fairly active a nd does exercise three to four times a week.He had a normal echo. ASSESSMENT AND PLAN: New onset exertional dyspnea : Ruled out for NH Extensive calcification of coronaries Hypertension Hyperlipidemia Asymptomatic sinus bradycardia Would plan for left heart cath next week Explained about the procedure and he agrees to get it done a [facility] [place] to discharge him home from cardiac point of view Continue current medications including his beta arabella PAST MEDICAL HISTORY: PAST MEDICAL HISTORY Diagnosis Date - Dyslipidemia - Dyspnea on exertion - Former smoker, stopped smoking in distant past - HTN (hypertension) - Kidney stones - HARLEY on CPAP - Rosacea PAST SURGICAL HISTORY: PAST SURGICAL HISTORY Procedure Laterality Date - COLONOSCOP W/ OR W/O [facility] SPEC 02/15/2019 Colonoscopy - COLONOSCOPY 2006 - HERNIA REPAIR HX childhood and 2007 x3 - PAST SURGICAL HISTORY OF lithotripsy, multiple - PAST SURGICAL HISTORY OF laser prostate - TONSILLECTOMY HX FAMILY HISTORY: FAMILY HISTORY Problem Relation Age of Onset - other (No CAD) Father - Cancer Mother , lung - Cancer Brother thyroid SOCIAL HISTORY: Social History Tobacco Use - Smoking status: Former Smoker Packs/day: 1.00 Years: 7.00 Pack years: 7.00 Types: Cigarettes Last attempt to quit: 12/27/1976 Years since quittin.4 - Smokeless tobacco: Never Used - Tobacco comment: on and off Substance Use Topics - Alcohol use: Yes Frequency: 2-4 times a month Drinks per session: 1 or 2 Binge frequency: Never Comment: occasional - Drug use: No MEDICATIONS: Prior to Admission Medications: atenolol (TENORMIN) 50 mg tablet, Take 1 tablet by mouth onc e daily., Disp: 90 tablet, Rfl: 2, 06/01/2019 at 0800 sulfacetamide sodium-sulfur 9.8-4.8 % lotn, Apply thin film to affected area 1 times daily., Disp: , Rfl: , Taking aspirin, enteric coated (ASPIRIN, ENTERIC COATED) 81 mg EC t ablet, Take 81 mg by mouth once daily., Disp: , Rfl: , 06/01/2019 at Unknown time atorvastatin (LIPITOR) 10 mg tablet, Take 10 mg by mouth onc e daily., Disp: , Rfl: , 05/31/2019 at 2100 perflutren lipid microspheres (DEFINITY) 1.1 mg/mL injection (to be provided with echo procedure), Inject 1.3 mL intravenously a s directed. Administration Instructions: If no IV access, insert saline lock prior to administering contrast. Discontinue saline lock post exam. I f patient has central line or IVAD, may access for administration accordin g to line specific nursing protocol. Once exam is complete, flush line and de-access per line specific nursing protocol. Diluted IV Bolus: Dilute 1.3 ml of Definity with 8.7 ml of preservative-free saline., Disp: 1.3 mL, Rfl: 0 perflutren lipid microspheres (DEFINITY) 1.1 mg/mL injection (to be provided with echo procedure), Inject 1.3 mL intravenously a s directed. Administration Instructions: If no IV access, insert saline lock prior to administering contrast. Discontinue saline lock post exam. I f patient has central line or IVAD, may access for administration accordin g to line specific nursing protocol. Once exam is complete, flush line and de-access per line specific nursing protocol. Diluted IV Bolus: Dilute 1.3 ml of Definity with 8.7 ml of preservative-free saline., Disp: 1.3 mL, Rfl: 0 Current Facility-Administered Medications Medication Dose Route Frequency - atorvastatin 10 mg tab(s) (LIPITOR) 10 mg ORAL AT BEDTIME - atenolol 50 mg tab(s) (TENORMIN) 50 mg ORAL DAILY - aspirin, enteric coated 81 mg tab(s) 81 mg ORAL DAILY ALLERGIES: ALLERGIES No Known Allergies COMPLETE REVIEW OF SYSTEMS: GENERAL: No weight loss, malaise or fevers HEENT: Negative for frequent or significant headaches, No ch anges in hearing or vision, no nose bleeds or other nasal problems NECK: Negative for lumps, goiter, pain and significant neck swelling RESPIRATORY: Exertional dyspnea relieved by rest CARDIOVASCULAR: Negative for chest pain, leg swelling, hyper tension, CHF or palpitations GI: No nausea, vomiting, or diarrhea : No history of dysuria, frequency or incontinence MUSCULOSKELETAL: Negative for joint pain or swelling, back p ain or muscle pain SKIN: Negative for lesions, rash, and itching PSYCH: Negative for sleep disturbance, mood disorder and rec ent psychosocial stressors. HEMATOLOGY/LYMPHOLOGY Negative for prolonged bleeding, bruis ing easily or swollen nodes ENDOCRINE: Negative for cold or heat intolerance, polyuria, polydipsia and goiter NEURO: No history of headaches, syncope, paralysis, seizures or tremors All other reviewed and negative other than HPI. PHYSICAL EXAM: Patient Vitals for the past 24 hrs: BP Temp Temp src Pulse Resp SpO2 Height Weight 06/02/19 0759 154/76 36.9 ?C (98.4 ?F) Oral (!) 53 18 96 % ? ? Body mass index is 26.55 kg/m?. GENERAL: Alert, no distress, cooperative SKIN: Skin color, texture, turgor normal. No rashes or lesio ns. HEAD/SINUSES: No significant findings EYES: PERRLA, EOMI EARS: External ears normal, canals clear NOSE: Nares normal. Septum midline. OROPHARYNX: Lips, mucosa, and tongue normal. Teeth and gums normal. Oropharynx normal. NECK: No jugulovenous distention, No carotid bruits, Carotid pulse normal contour, Supple LUNGS: Lungs clear to auscultation, Good diaphragmatic excur alexia CARDIAC: Normal S1 and S2; no rubs, murmurs, or gallops ABDOMEN: Abdomen soft, non-tender, BS normal, No masses or o rganomegaly EXTREMITIES: Extremities normal, no deformities, edema, club marion or skin discoloration. Good capillary refill., No ulcers NEURO: Gait normal. Reflexes normal and symmetric. Sensation grossly intact, Cranial nerves II-XII intact PULSES: 2+ radial, 2+ carotid DATA: Radiology: Laboratory: Reviewed Other: SIGNATURE: Jerome Neumann MD CELL TEXT : [phone] DATE: June 02, 2019 TIME: 12:45 PM cnco on 2019-06-02 CNCO Letter Text Normal 06-02-2019 [facility] ([id number]) cbc on 2019-06-02 Erythrocyte distribution 12.6 11.5-15.0 % Normal 06-02 [facility] (62924) width (RBC) [Ratio] Comment: Performed By: #### BMP, MG1, CBC ####[facility] [address] [place] [address] 0 Hematocrit (Bld) [Volume 48.5 39.0-51.0 % Normal 06-02 [facility] (28897) fraction] Comment: Performed By: #### BRIAN MG1, CBC ####[facility] [address] [place] [address] 0 Hemoglobin (Bld) 16.1 13.0-17.0 g/dL Normal 06-02-2019 [facility] [Mass/Vol] (04957) Comment: Performed By: #### BRIAN MG1, CBC ####[place] [address] 0 MCH (RBC) [Entitic mass] 30.5 26.0-34.0 pG Normal 06-02 [facility] (85167) Comment: Performed By: #### BRIAN MG1, CBC ####[place] [address] 0 MCHC (RBC) [Mass/Vol] 33.2 30.5-36.0 g/dL Normal 06-02-[address] [place] [address] ([address]70) Comment: Performed By: #### BRIAN MG1, CBC ####[place] [address] 0 MCV (RBC) [Entitic vol] 91.9 80.0-100.0 fL Normal 06-02 [facility] (36215) Comment: Performed By: #### BRIAN MG1, CBC ####[place] [address] 0 Platelet mean volume (Bld) 9.9 9.0-12.7 fL Normal [facility] (23309) [Entitic vol] Comment: Performed By: #### BRIAN MG1, CBC ####[place] [address] 0 Platelets (Bld) [#/Vol] 288 150-400 k/uL Normal 2019 [facility] (91756) Comment: Performed By: #### BRIAN MG1, CBC ####[facility] [address] [place] [address] 0 RBC (Bld) [#/Vol] 5.28 4.20-6.00 m/uL Normal 06-02-2019 M [facility] (17565) Comment: Performed By: #### BMP, MG1, CBC ####[facility] [phone] WBC (Bld) [#/Vol] 7.97 3.70-11.00 k/uL Normal 06-02-2019 [facility] (96433) Comment: Performed By: #### BMP, MG1, CBC ####[facility] [phone] case mgt init asses on 2019-06-02 CASE MGT INIT HNO ID: [id number] Normal 020 [facility] Author: Gail (Rn) TIMOTHY Reynolds ([id number]) Service: Nursing Author Type: Registered Nurse Type: Care Mgt Initial Assessment Filed: 06/02/2019 12:11 PM Note Text: CARE MANAGEMENT: ASSESSMENT AND DISCHARGE PLAN SERVICE DATE: June 02, 2019 SERVICE TIME: 12:09 PM PRIMARY CARE PHYSICIAN: Bella Santos MD, confirmed ADMISSION STATUS: Observation Needs Prior to Discharge: None;Ready for Discharge 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 Last discharge within 30 days: No Advance Directive: Current Advance Directive: None Printed Forms Proofreader Attempted to Assist with AD Completion: Yes Action: Patient Unwilling Health LiteracyHow often do you need to have someone help yo u when you read instructions, pamphlets, or other written material from your doctor or pharmacy? : 1 - Never How confident are you filling out medical forms by yourself? : 1 - Extremely If Patient scores > 3 on either question, the following inte rventions were put into place:: Patient did not score > 3 on either questio n. Prior to Admission: Baseline Mental Status: Alert AND Oriented Prior to this illness, has anyone described the patient havi ng any of the following behaviors? Not Applicable Relationship of the information to the patient:: Self Functional Status: Independent Does Patient Currently Receive Any Community Services or [facility] e Care?: None Equipment Prior to Admission: None SOCIAL: Living Arrangements: Home Financial Resources: RetiredPrimary Contact: Extended Emerge ncy Contact Information Primary Emergency Contact: Misti Loaiza Address: [address] [place] [id number] Relation: Spouse Supportive Patient Contact:: Yes Contact Resources: Family Social Needs Food insecurity Worry: Never true Inability: Never true Resources Needed: No Social Needs Financial resource strain: Not hard at all Social Needs Transportation needs Medical: No Non-medical: No Caregiver AssessmentCaregiver is ready, willing and able to meet the patient's needs as recommended by the inter-professional tea m:: No Caregiver needed Does the patient have an acute stroke diagnosis, or has the patient had a stroke during this admission?: No Family Name/Phone: Misti Loaiza, Patient's perception of need for this admission: Here for wo rkup for chest pain Medication Adherance I am convinced of the importance of my prescription medicati on: 0 - Agree Completely I worry that my prescription medication will do more harm th an good to me : 0 - Diagree Completely I feel financially burdened by my aeq-xv-grodvc expenses for my prescription medication:: 0 - Diagree Completely Risk Score: 0 Patient is categorized as: Low risk < 2 Are you interested in bedside delivery of your medications? No Is Patient Psychosocially Complex?: No ASSESSMENT AND PLAN: Medical Needs: Medical Needs: Two or more chronic diseases Psychosocial Needs: Psychosocial Needs: None FREEDOM OF CHOICE EXPLAINED: [place] of Choice Given: No Reason Not Given: No placements necessary POTENTIAL TRANSITION PLANS Home EMR reviewed. Patient assigned obs bed for chest pain. CM me t with patient at bedside. 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 Anti cipate no skilled needs at DC. CM assigned will follow. SIGNATURE: Gail Reynolds RN PATIENT NAME: Jocelyn Loaiza DATE: June 02, 2019 TIME: 12:09 PM PAGER/CONTACT #: [phone] case managem on CASE MANAGEM HNO ID: [id number] Normal 06-02-19 89 [place] [address] Author: Gail Layton) TIMOTHY Reynolds ([id number]) Service: Nursing Author Type: Registered Nurse Type: Care Mgt Progress Note Filed: 06/02/2019 12:13 PM Note Text: CARE MANAGEMENT DISCHARGE NOTE SERVICE DATE: June 02, 2019 SERVICE TIME: 12:12 PM LOS: 0 days Admission Date: 06/01/2019 DISCHARGE ARRANGEMENT (list agency and phone number) Discharge Arrangement: Home CAREGIVER ASSESSMENT: Caregiver is ready, willing and able to meet the patient's n eeds as recommended by the inter-professional team:: No Caregiver ne eded Does the patient have an acute stroke diagnosis, or has the patient had a stroke during this admission?: No Family Name/Phone: Misti Loaiza, Patient's transition needs and plan for meeting these needs: DC home with self care. HANDOFF COMMUNICATION: Handoff to: Primary Care Physician Primary Care Physician Name/Phone: Bella Santos MD, [phone] Summary of care sent to PCP. TRANSPORTATION ARRANGEMENTS: Transportation Arrangements: Car ADDITIONAL CONTACT RESOURCES: N/A Needs Prior to Discharge: None;Ready for Discharge DC order received for home with no skilled needs. CM met wit h patient at bedside and he is agreeable to DC plan. Daughter to transpor t. Patient will arrange own follow up appt. SIGNATURE: Gail Reynolds RN PATIENT NAME: Jocelyn Loaiza DATE: June 02, 2019 TIME: 12:12 PM PAGER/CONTACT #: [phone] basic metabolic panl on 2019-06-02 Anion gap [Moles/Vol] 16 9-18 mmol/L Normal 06-02-19 20 [facility] ([id number]) Comment: Performed By: #### BRIAN, MG1, CBC ####[facility] [address] [place] [phone] 0 Calcium [Mass/Vol] 9.2 8.5-10.2 mg/dL Normal 06-02-2019 [facility] ([id number]) Comment: Performed By: #### BRIAN MG1, CBC ####[facility] [address] [place] [phone] 0 Chloride [Moles/Vol] 106 97-105 mmol/L High 0 [facility] (54042) Comment: Performed By: #### BRIAN, MG1, CBC ####[facility] [address] [place] [address] 0 CO2 [Moles/Vol] 21 22-30 mmol/L Low 06-02-2019 [facility] ([id number]) Comment: Performed By: #### BRIAN MG1, CBC ####[facility] [address] [place] [address] 0 Creatinine [Mass/Vol] 0.87 0.73-1.22 mg/dL Normal 06-02-19 20 [facility] ([id number]) Comment: Performed By: #### BRIAN MG1, CBC ####[facility] [address] [place] [address] 0 eGFR- Amer. >60 Normal 06-02-2019 [facility] ([id number]) Comment: Performed By: #### BRIAN MG1, CBC ####[facility] [address] [place] [address] 0 GFR/1.73 sq M predicted >60 mL/min/{1.73_m2} Normal 06-02-2019 [facility] among non-blacks MDRD ([id number]) (S/P/Bld) [Vol rate/Area] Comment: Result Comment: eGFR (Estima ernie GFR) Units of measure: mL/min/1.73 meters squared eGFR is derived from the ree xpressed MDRD Study equation using the following parameters: serum creatinine, age, gender and race. The creatinine assay has been calibrated to be traceable to IDMS. An eGFR <60 mL/min/1.73m2 fo r >3 months is consistent with chronic kidney disease. Refer to KDOQI guidelines for clinical interpretation. In patients with unstable re nal function, e.g. those with acute kidney injury, the eGFR may not accurately reflect actual GFR. Performed By: #### BRIAN, MG1, CBC ####[facility] [address] [place] [address] 0 Glucose [Mass/Vol] 97 74-99 mg/dL Normal 06-02-2019 [facility] ([id number]) Comment: Result Comment: The [place] Diabetes [employer] (ADA) provides guidance for cutoff values for fasting glucose and random glucose. The ADA defines fasting as no caloric intake for at least 8 hours. Fas ting plasma glucose results between 100 to 125 mg/dL indicate increased risk for diabetes (prediabetes). Fasting plasma glucose resul ts greater than or equal to 126 mg/dL meet the criteria for diagnosis of diabetes. In the absence of unequivocal hyperglycemia, results should be confirmed by repeat testing. In a patient with classic s ymptoms of hyperglycemia or hyperglycemic crisis, random plasma glucose results greater than or equal to 200 mg/dL meet the criteria for diagnosis of diabetes. Reference: Standards of [facility] Care in Diabetes 2016, [place] [employer]. Diabetes Care. 2016.39(Suppl 1). Performed By: #### BRIAN MG1, CBC ####[facility] [address] [place] [address] 0 Potassium [Moles/Vol] 4.2 3.7-5.1 mmol/L Normal 06-02-19 [facility] ([id number]) Comment: Performed By: #### BRIAN MG1, CBC ####[facility] [address] [place] [address] 0 Sodium [Moles/Vol] 143 136-144 mmol/L Normal 06-02-2019 [facility] ([id number]) Comment: Performed By: #### BMP, MG1, CBC ####[facility] [address] [place] [address] 0 Urea nitrogen [Mass/Vol] 23 9-24 mg/dL Normal 06-02 [facility] ([id number]) Comment: Performed By: #### BMP, MG1, CBC ####[facility] [address] [place] [address] 0 troponin t on 06-01 Troponin T.cardiac <0.010 0.000-0.029 ug/L Normal 0 [facility] [Mass/Vol] ([id number]) Comment: Performed By: #### MARY KATE ####M [facility] [address] [place], [place] [id number] nursing prog on NURSING HNO ID: [id number] Normal 06-01-2019 [facility] Author: Racheal (Rn) TIMOTHY [facility] Service: Nursing (00 000) Author Type: Registered Nurse Type: Nursing Progress Note Filed: 06/02/2019 6:12 AM Note Text: Nursing Progress Note Patient Name: Jocelyn Loaiza Patient Location: [place] [address]/[id number]- Daily Note: 194 lying in semi fowlers position in bed awake watching TV . Denies needs. SB on tele, HR 55. Bed in low position, call light wi thin reach, safety maintained. 2035 lying in semi fowlers position in bed awake watching TV . Denies chest pain. A,Ox3. Lungs clear in all lobes on auscultation. HR re gular, s1 and s2 noted. SB on tele, HR 55. BSPx4 quadrants, abdomen soft, flat, non-tender. Bed in low position, call light within reach, sa fety maintained. 2300 lying supine in bed sleeping. SB on tele, HR 51. Bipap on. Bed in low position, call light within reach, safety maintained. 0100 lying supine in bed sleeping. SB on tele, HR 50. Bipap on. Bed in low position, call light within reach, safety maintained. 0300 lying in supine in bed sleeping. SB on tele, HR 46. Bip ap on. Bed in low position, call light within reach, safety maintained. 0525 lying in supine in bed sleeping. SB on tele, HR 48. Bip ap on. Bed in low position, call light within reach, safety maintained. This note was completed by: Racheal Nolasco RN NURSING [facility] ID: [id number] Normal 06-01-2019 [facility] Author: Patty (Rn) TIMOTHY [facility] Service: Nursing (00 000) Author Type: Registered Nurse Type: Nursing Progress Note Filed: 06/01/2019 6:26 PM Note Text: Nursing Progress Note Patient Name: Jocelyn Loaiza [place] [facility] [id number] Daily Note:1432 - pt admitted to the OBS unit in stable cond ition. Admission and assessment completed and charted; see epic. Pt currently denies CP, pressure and/or dyspnea at this time; will contin ue to monitor. Pt oriented to unit, call light and safety; verbalizes under standing. Call light within reach; safety maintained. 1630 - pt resting in bed; denies CP, pressure and/or dyspnea ; SB on tele, sat's maintained on RA; will continue to monitor. Safety keith ntained. 1830 - pt resting in bed; denies CP, pressure and/or dyspnea ; SB on tele, sat's maintained on RA; will continue to monitor. Safety keith ntained. This note was completed by: Patty Paz RN magnesium on 06-01 Magnesium [Mass/Vol] 1.8 1.7-2.3 mg/dL Normal 0 [facility] ([id number]) Comment: Performed By: #### MG1, CBC, BMP ####[facility] [address] [place] [phone] 0 history physical on 2019-06-01 HISTORY HNO ID: [id number] Normal 06-01-2019 [facility] Service: Hospital Medicine ([id number]) Author Type: Nurse Practitioner Type: HANDP Filed: 06/01/2019 9:03 PM Note Text: Attestation signed by Hank Hidalgo at 06/02/2019 4:17 P M Discussed with provider below and I agree with their h istory exam assessment and plan. Hank Hidalgo MD SERVICE DATE: 06/01/2019 SERVICE TIME: 8:51 PM HOSPITAL MEDICINE HISTORY AND PHYSICAL PCP: Bella Santos MD NIGHT AND WEEKEND COVERAGE: Nights: Please contact pager [phone]. SUBJECTIVE Chief Complaint: Chest pain and shortness of breath HPI: 73 year old gentleman with PMHx significant for HTN, HLD and HARLEY who presented to [facility] for evaluation of in termittent chest pain and shortness of breath over the last 6 weeks. Savanah winston symptoms are worse with exertion and has recently been limiting his regul ar exercise routine which includes hiking, weight lifting and cardio. Re st seems to help his symptoms. He reports he was evaluated by his PCP guerda r the same complaint a few weeks back. He had a chest x-ray and echocar diogram completed which were reportedly normal. 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 Of note, his last stress echo was complet ed in 2014 when he had very similar symptoms. It was abnormal but later followed up with a chemical stress which was negative. He was also evalu ated by pulmonology at the time. PFTs were completed an a cause of h is shortness of breath and chest pain was not determined. This morning savanah winston symptoms felt much worse than usual prompting his ED visit. On exam, he is symptom free. He remained hemodynamically stable in the ED. EKG showed sin us bradycardia, without ST changes. CXR negative. Lab work incl uding Troponin I were unremarkable. A CT Chest was pursued and negative for PE but did show chronic interstitial bronchitis with no superimposed in filtration or effusion and calcified coronary vessels. He was given ASA an d transferred to [facility] for rule out. PAST MEDICAL HISTORY Diagnosis Date - Dyslipidemia - Dyspnea on exertion - Former smoker, stopped smoking in distant past - HTN (hypertension) - Kidney stones - HARLEY on CPAP - Rosacea PAST SURGICAL HISTORY Procedure Laterality Date - COLONOSCOP W/ OR W/O [facility] SPEC 02/15/2019 Colonoscopy - COLONOSCOPY 2006 - HERNIA REPAIR HX childhood and 2007 x3 - PAST SURGICAL HISTORY OF lithotripsy, multiple - PAST SURGICAL HISTORY OF laser prostate - TONSILLECTOMY HX FAMILY HISTORY Problem Relation Age of Onset - other (No CAD) Father - Cancer Mother , lung - Cancer Brother thyroid Social History Tobacco Use - Smoking status: Former Smoker Packs/day: 1.00 Years: 7.00 Pack years: 7.00 Types: Cigarettes Last attempt to quit: 12/27/1976 Years since quittin.4 - Smokeless tobacco: Never Used - Tobacco comment: on and off Substance Use Topics - Alcohol use: Yes Frequency: 2-4 times a month Drinks per session: 1 or 2 Binge frequency: Never Comment: occasional - Drug use: No Medications: Reviewed Allergies: ALLERGIES No Known Allergies Review of Systems: GENERAL: No weight loss, malaise or fevers HEENT: Negative for frequent or significant headaches, No ch anges in hearing or vision, no nose bleeds or other nasal problems NECK: Negative for lumps, goiter, pain and significant neck swelling RESPIRATORY: Shortness of breath CARDIOVASCULAR: Chest pain GI: No nausea, vomiting, or diarrhea : No history of dysuria, frequency or incontinence MUSCULOSKELETAL: Negative for joint pain or swelling, back p ain or muscle pain SKIN: Negative for lesions, rash, and itching PSYCH: Negative for sleep disturbance, mood disorder and rec ent psychosocial stressors HEMATOLOGY/LYMPHOLOGY: Negative for prolonged bleeding, brui sing easily or swollen nodes ENDOCRINE: Negative for cold or heat intolerance, polyuria, polydipsia and goiter NEURO: No history of headaches, syncope, paralysis, seizures or tremors OBJECTIVE: PHYSICAL EXAM BP 167/77 Pulse 49 Temp (Src) 98.1 (Oral) Resp 18 Ht 5' 7 (1.70m) Wt 169 lb 8.5 oz (76.9kg) SpO2 99% BMI 26.55 kg/(m2). O2 Therapy: Room Air Physical Exam Performed: GENERAL: Alert, no distress, cooperative SKIN: Skin color, texture, turgor normal. No rashes or lesio ns. HEAD/SINUSES: No significant findings BACK: Back symmetric, Normal curvature LUNGS: Lungs clear to auscultation, Good diaphragmatic excur alexia CARDIAC: RRR; no rubs, murmurs, or gallops ABDOMEN: Abdomen soft, non-tender, BS normal, No masses or o rganomegaly EXTREMITIES: Extremities normal, no deformities, edema, club marion or skin discoloration. Good capillary refill. NEURO: Grossly normal cognition, motor function, and cranial nerves III-XII PULSES: 2+ radial Lines, Drains, and Airways Line Peripheral 06/01/19 1505 Admission to Hospital Short Left An tecubital 20 Gauge less than 1 day Reviewed lines and needs to be continued: REASONS: Telemetry Diagnostic tests reviewed: Most recent labs and imaging resu lts Assessment AND Plan Active Hospital Problems as of 06/01/2019 Noted - Resolved Chest pain 06/01/2019 - Present Current Assessment AND Plan Concerning 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 AND SOB x6 weeks [employer] CT chest shows calcified coronary vessels Echo 05/07/19 w/ EF 66%, grade I diastolic dysfunction Cycle Troponin x3 with EKGs PRN for ACS rule out Check lipid panel and A1c for risk stratification Maintain continuous telemetry monitoring Cards consult as obtain to obtain stress test over weekend HTN (hypertension) Unknown - Present Current Assessment AND Plan Elevated on admission, resume Atenolol and reassess Dyslipidemia Unknown - Present Current Assessment AND Plan Update lipid panel, continue statin HARLEY on CPAP Unknown - Present Current Assessment AND Plan OK to use home CPAP Medication and Non-Pharmacologic VTE Prophylaxis/Anticoagula nts Anticoagulant AND Antiplatelet Medications (From admission, onward) Start Dose Route Frequency Ordered Stop 06/02/19 0900 aspirin, enteric coated 81 mg tab(s) 81 mg ORAL DAILY 06/01/19 1641 -- 06/01/19 1645 vte non-pharmacologic prophylaxis - none indic ated (wy,oh) VTE Prophylaxis: VTE prophylaxis appropriate Disposition: Home when medically stable Plan of care discussed with: Patient, RN and attending SIGNATURE: Leila Riddle APRN.CNP PATIENT NAME: Jocelyn Loaiza DATE: June 01, 2019 TIME: 8:51 PM PAGER/CONTACT #: [phone] cbc on 2019-06-01 Erythrocyte distribution 12.4 11.5-15.0 % Normal 06-01 [facility] (85801) width (RBC) [Ratio] Comment: Performed By: #### MG1, CBC, BMP ####[facility] [address] [place], [place] [phone] 0 Hematocrit (Bld) [Volume 48.8 39.0-51.0 % Normal 06-01 [facility] (44227) fraction] Comment: Performed By: #### MG1, CBC, BMP ####[place] [address] 0 Hemoglobin (Bld) 16.3 13.0-17.0 g/dL Normal 06-01-2019 [facility] [Mass/Vol] (56083) Comment: Performed By: #### MG1, CBC, BMP ####[place] [address] 0 MCH (RBC) [Entitic mass] 30.4 26.0-34.0 pG Normal 06-01 [facility] (37326) Comment: Performed By: #### MG1, CBC, BMP ####[place] [address] 0 MCHC (RBC) [Mass/Vol] 33.4 30.5-36.0 g/dL Normal 06-01-[address] [place] [address] ([address]) Comment: Performed By: #### MG1, CBC, BMP ####[place] [address] 0 MCV (RBC) [Entitic vol] 91.0 80.0-100.0 fL Normal 06-01 [facility] (76924) Comment: Performed By: #### MG1, CBC, BMP ####[place] [address] 0 Platelet mean volume (Bld) 9.5 9.0-12.7 fL Normal [facility] (91770) [Entitic vol] Comment: Performed By: #### MG1, CBC, BMP ####[place] [address] 0 Platelets (Bld) [#/Vol] 275 150-400 k/uL Normal 2019 [facility] ([id number]) Comment: Performed By: #### MG1, CBC, BMP ####[place] [address] 0 RBC (Bld) [#/Vol] 5.36 4.20-6.00 m/uL Normal 06-01-2019 [facility] (64855) Comment: Performed By: #### MG1, CBC, BMP ####[facility] [address] [place] [address] 0 WBC (Bld) [#/Vol] 7.13 3.70-11.00 k/uL Normal 06-01-2019 [facility] (25503) Comment: Performed By: #### MG1, CBC, BMP ####[facility] [address] [place] [address] 0 basic metabolic panl on 2019-06-01 Anion gap [Moles/Vol] 14 9-18 mmol/L Normal 06-01-19 [facility] (78956) Comment: Performed By: #### MG1, CBC, BMP ####[facility] [address] [place] [address] 0 Calcium [Mass/Vol] 8.7 8.5-10.2 mg/dL Normal 06-01-2019 [facility] (24203) Comment: Performed By: #### MG1, CBC, BMP ####[place] [address] 0 Chloride [Moles/Vol] 104 97-105 mmol/L Normal 0 [facility] (35707) Comment: Performed By: #### MG1, CBC, BMP ####[facility] [address] [place] [address] 0 CO2 [Moles/Vol] 24 22-30 mmol/L Normal 06-01-2019 [facility] (76525) Comment: Performed By: #### MG1, CBC, BMP ####[facility] [address] [place] [address] 0 Creatinine [Mass/Vol] 0.81 0.73-1.22 mg/dL Normal 06-01-19 [facility] (22305) Comment: Performed By: #### MG1, CBC, BMP ####[facility] [address] [place] [address] 0 eGFR- Amer. >60 Normal 06-01-2019 [facility] (14983) Comment: Performed By: #### MG1, CBC, BMP ####[facility] [address] [place] [address] 0 GFR/1.73 sq M predicted >60 mL/min/{1.73_m2} Normal 06-01-2019 [facility] among non-blacks MDRD (40522) (S/P/Bld) [Vol rate/Area] Comment: Result Comment: eGFR (Estima ernie GFR) Units of measure: mL/min/1.73 meters squared eGFR is derived from the ree xpressed MDRD Study equation using the following parameters: serum creatinine, age, gender and race. The creatinine assay has been calibrated to be traceable to IDMS. An eGFR <60 mL/min/1.73m2 fo r >3 months is consistent with chronic kidney disease. Refer to KDOQI guidelines for clinical interpretation. In patients with unstable re nal function, e.g. those with acute kidney injury, the eGFR may not accurately reflect actual GFR. Performed By: #### MG1, CBC, BMP ####[facility] [phone] Glucose [Mass/Vol] 117 74-99 mg/dL High 06-01-2019 [facility] (21790) Comment: Result Comment: The [place] Diabetes Association (ADA) provides guidance for cutoff values for fasting glucose and random glucose. The ADA defines fasting as no caloric intake for at least 8 hours. Fas ting plasma glucose results between 100 to 125 mg/dL indicate increased risk for diabetes (prediabetes). Fasting plasma glucose resul ts greater than or equal to 126 mg/dL meet the criteria for diagnosis of diabetes. In the absence of unequivocal hyperglycemia, results should be confirmed by repeat testing. In a patient with classic s ymptoms of hyperglycemia or hyperglycemic crisis, random plasma glucose results greater than or equal to 200 mg/dL meet the criteria for diagnosis of diabetes. Reference: Standards of [facility] Care in Diabetes 2016, [place] [employer]. Diabetes Care. 2016.39(Suppl 1). Performed By: #### MG1, CBC, BMP ####[facility] [address] [place] [phone] 0 Potassium [Moles/Vol] 4.1 3.7-5.1 mmol/L Normal 06-01-19 [facility] (40442) Comment: Performed By: #### MG1, CBC, BMP ####[facility] [address] [place] [phone] 0 Sodium [Moles/Vol] 142 136-144 mmol/L Normal 06-01-2019 [facility] (16672) Comment: Performed By: #### MG1, CBC, BMP ####[facility] [phone] 0 Urea nitrogen [Mass/Vol] 19 9-24 mg/dL Normal 06-01 [facility] (79608) Comment: Performed By: #### MG1, CBC, BMP ####[facility] [address] [place] [phone] 0 xr chest 2v frontal/lat on 2019-04-27 XR CHEST 2V * * *Final Report* * * Normal 04-27 [facility] FRONTAL/LAT DATE OF EXAM: Apr 27 2019 2:13PM Young WOX 5291 - XR CHEST 2V FRONTAL/LAT / (69015) PROCEDURE REASON: ZAMORANO (dyspnea on exertion) * * * * Physician Interpretation * * * * EXAMINATION: CHEST RADIOGRAPH (2 VIEW FRONTAL and LATERAL) CLINICAL HISTORY: ZAMORANO (dyspnea on exertion) MQ: XC2_5 Comparison: 01/28/2015 RESULT: Lines, tubes, and devices: None. Lungs and pleura: No focal consolidation, pleural effusion o r pneumothorax. Cardiomediastinal silhouette: Stable Other: No acute osseous abnormality. IMPRESSION: No acute radiographic abnormality. Anthropometrist: VIK Transcribe Date/Time: Apr 27 2019 2:21P Dictated by : MARY BOTELLO MD This examination was interpreted and the report reviewed and electronically signed by: MARY BOTELLO MD on Apr 27 2019 2:23PM EST [id number] progress on 2019-04 PROGRESS HNO ID: [id number] Normal 04-27-2019 [facility] Author: Bryon Hay (Rt) Carver ([id number]) Service: ? Author Type: Mill Attendant Type: Progress Notes Filed: 04/27/2019 2:15 PM Note Text: Radiology Service Progress Note PATIENT NAME: Jocelyn Loaiza DATE OF SERVICE: April 27, 2019 TIME: 2:15 PM PATIENT IDENTITY VERIFICATION COMPLETED USING TWO (2) IDENTI FIERS: Name and Date of confirmed by patient verbally. PATIENT GENDER DATA: Male PATIENT RELEVANT IMPLANT DATA REVIEWED: Not Applicable RADIOLOGY DEPARTMENT: General X-ray: Exam(s) Completed: Ches t X-Ray PERIPHERAL IV DATA: Not applicable SIGNED BY: RT Satnam April 27, 2019 2:15 PM PROGRESS HNO ID: [id number] Normal 04-27-2019 [facility] Author: Bryon Hay (Rt) Young ([id number]) Service: ? Author Type: Mill Attendant Type: Progress Notes Filed: 04/27/2019 2:15 PM Note Text: Radiology Service Progress Note PATIENT NAME: Jocelyn Loaiza DATE OF SERVICE: April 27, 2019 TIME: 2:07 PM PATIENT IDENTITY VERIFICATION COMPLETED USING TWO (2) IDENTI FIERS: Name and Date of confirmed by patient verbally. PATIENT GENDER DATA: Female. status: : No status: NO. PATIENT RELEVANT IMPLANT DATA REVIEWED: Not Applicable RADIOLOGY DEPARTMENT: General X-ray: Exam(s) Completed: Ches t X-Ray PERIPHERAL IV DATA: Not applicable SIGNED BY: RT Satnam April 27, 2019 2:07 PM PROGRESS HNO ID: [id number] Normal 04-27-2019 [facility] Author: Magen Carver ([id number]) Service: ? Author Type: Nurse Practitioner Type: Progress Notes Filed: 04/27/2019 2:10 PM Note Text: Chief Complaint Patient presents with: Sore Throat: stuffy no cough , no fever chills , week and broderick lf HPI Jocelyn Loaiza is a 73 year old male who presents here toda for Above Complaints. ENT: Patient complains of sinus pressure. Duration: 1.5 weeks. Fever: No. Headache: No. Sore throat: Yes. Ear pain: No. Nasal drainage: Yes. Cough: No. Shortness of breath: Yes. With exertion. Chest pain: No. Occasional Lightheadedness: Yes Nausea: No. Vomiting: No. Diarrhea: No. Previous treatment: Tylenol occasionally. Nasacort. Had a mild abnormal NM stress testing in 2014. Had an evalua tion by pulmonary, could not get a definitive diagnosis. Past medical history, appointments, medications, allergies r eviewed. Previous Medical History PAST MEDICAL HISTORY Diagnosis Date - Dyslipidemia - Dyspnea on exertion - Former smoker, stopped smoking in distant past - HTN (hypertension) - Kidney stones - HARLEY on CPAP - Rosacea Previous Surgical History PAST SURGICAL HISTORY Procedure Laterality Date - COLONOSCOP W/ OR W/O [facility] SPEC 02/15/2019 Colonoscopy - COLONOSCOPY 2006 - HERNIA REPAIR HX childhood and 2007 x3 - PAST SURGICAL HISTORY OF lithotripsy, multiple - PAST SURGICAL HISTORY OF laser prostate - TONSILLECTOMY HX Family History FAMILY HISTORY Problem Relation Age of Onset - other (No CAD) Father - Cancer Mother , lung - Cancer Brother thyroid Patient Allergies ALLERGIES No Known Allergies Current Medications Current Outpatient Medications on File Prior to Visit Medication Sig - atenolol (TENORMIN) 50 mg tablet Take 1 tablet by mouth on ce daily. - sulfacetamide sodium-sulfur 9.8-4.8 % lotn Apply thin film to affected area 1 times daily. - aspirin, enteric coated (ASPIRIN, ENTERIC COATED) 81 mg EC tablet Take 81 mg by mouth once daily. - atorvastatin (LIPITOR) 10 mg tablet Take 10 mg by mouth on ce daily. No current facility-administered medications on file prior t o visit. Social History Social History Tobacco Use - Smoking status: Former Smoker Packs/day: 1.00 Years: 7.00 Pack years: 7.00 Types: Cigarettes Last attempt to quit: 12/27/1976 Years since quittin.3 - Smokeless tobacco: Never Used - Tobacco comment: on and off Substance Use Topics - Alcohol use: Yes Frequency: 2-4 times a month Drinks per session: 1 or 2 Binge frequency: Never Comment: occasional - Drug use: No REVIEW OF SYSTEMS: as above ? Reviewed relevant PMHx, PSHx, Social Hx, current medications and allergies. EXAM: BP 118/78 Pulse (!) 54 Temp 36.5 ?C (97.7 ?F) Resp 16 Wt 78 kg (172 lb) SpO2 99% BMI 26.94 kg/m? General Appearance: Well appearing, alert, in no acute distr ess, well-hydrated, well nourished.. Head: Normocephalic, no masses, lesions, tenderness or abnor malities. Eyes: Anicteric sclera. Pupils are equally round and reactiv e to light. Extraocular movements are intact. . Ears: External ears normal, canals clear. Nose/Sinuses: Negative except for mucosa swollen, pale, and boggy. Oropharynx: Lips, mucosa, and tongue normal, teeth and gums normal, oropharynx normal. Neck: Supple, no adenopathy; thyroid symmetric, normal siz. Lungs: lungs clear to auscultation. No wheezing, rhonchi, ra les shortness of breath: Upon exertion. Heart: RRR without murmur, gallop, or rubs. No ectopy. Extremities: No deformities, edema. Health Maintenance List HEPATITIS C SCREENING due on 1990 ANNUAL PCP TEAM CHRONIC DISEASE VISIT due on 01/16/2020 BP CONTROLLED (<130/80) due on 01/18/2020 DIABETES SCREEN due on 02/27/2022 COLORECTAL CANCER SCREENING,SEE MODIFIER due on 02/16/2024 LIPID SCREEN due on 02/28/2024 DTAP,TDAP,TD(2 - Td) due on 02/07/2027 ADULT PREVNAR-13 Completed PNEUMOVAX AGE 65 AND OVER WITH 5YR LOOKBACK Completed INFLUENZA Completed ASSESSMENT/PLAN: 1. ZAMORANO (dyspnea on exertion) - ICD9: 786.09, ICD10: R06.09 ( primary diagnosis) - Patient presentation does not appear to be related to pneu monia like diagnosis. No fever or productive cough. Get chest x-ray. Roberto Carlos leach has a history of a questionable stress testing in 2015 with simila r symptoms. Pulmonary performed PFTs, could not get definitive diagnosis . Consider referral back to pulmonary if chest x-ray is normal. - XR CHEST 2V FRONTAL/LAT 2. PND (post-nasal drip) - ICD9: 784.91, ICD10: R09.82 - Can take nasocort daily. Magen Shelton APRN.SUPERVISOR GRADING cnov on 2019-04-27 CNOV Office Visit (FAMPWS) Normal 04-27-19 Young JOCELYN Arias ([id number]) 1945 [facility] Date Time Provider Department ([id number]) 04/27/19 1:40 PM MAGEN SHELTON (EMA) ABNER During your visit today, we recorded the following informati on about you: Temperature Pulse Respiration Blood pressure 97.7 degrees 54/minute 16/minute 118/78 Weight 78 kg Magen Shelton APRN.CNP 04/27/2019 2:10 PM Signed Chief Complaint Patient presents with: Sore Throat: stuffy no cough , no fever chills , week and broderick lf HPI Jocelyn Loaiza is a 73 year old male who presents here toda y for Above Complaints. ENT: Patient complains of sinus pressure. Duration: 1.5 weeks. Fever: No. Headache: No. Sore throat: Yes. Ear pain: No. Nasal drainage: Yes. Cough: No. Shortness of breath: Yes. With exertion. Chest pain: No. Occasional Lightheadedness: Yes Nausea: No. Vomiting: No. Diarrhea: No. Previous treatment: Tylenol occasionally. Nasacort. Had a mild abnormal NM stress testing in 2014. Had an evaluation by pulmonary, could not get a definitive diagnosis. Past medical history, appointments, medications, allergies r eviewed. Previous Medical History PAST MEDICAL HISTORY Diagnosis Date - Dyslipidemia - Dyspnea on exertion - Former smoker, stopped smoking in distant past - HTN (hypertension) - Kidney stones - HARLEY on CPAP - Rosacea Previous Surgical History PAST SURGICAL HISTORY Procedure Laterality Date - COLONOSCOP W/ OR W/O [facility] SPEC 02/15/2019 Colonoscopy - COLONOSCOPY 2006 - HERNIA REPAIR HX childhood and 2007 x3 - PAST SURGICAL HISTORY OF lithotripsy, multiple - PAST SURGICAL HISTORY OF laser prostate - TONSILLECTOMY HX Family History FAMILY HISTORY Problem Relation Age of Onset - other (No CAD) Father - Cancer Mother , lung - Cancer Brother thyroid Patient Allergies ALLERGIES No Known Allergies Current Medications Current Outpatient Medications on File Prior to Visit Medication Sig - atenolol (TENORMIN) 50 mg tablet Take 1 tablet by mouth on ce daily. - sulfacetamide sodium-sulfu r 9.8-4.8 % lotn Apply thin film to affected area 1 times daily. - aspirin, enteric coated (ASPIRIN, ENTE SEGUN COATED) 81 mg EC tablet Take 81 mg by mouth once daily. - atorvastatin (LIPITOR) 10 mg tablet Take 10 mg by mouth on ce daily. No current facility-administered medications on file prior t o visit. Social History Social History Tobacco Use - Smoking status: Former Smoker Packs/day: 1.00 Years: 7.00 Pack years: 7.00 Types: Cigarettes Last attempt to quit: 12/27/1976 Years since quittin.3 - Smokeless tobacco: Never Used - Tobacco comment: on and off Substance Use Topics - Alcohol use: Yes Frequency: 2-4 times a month Drinks per session: 1 or 2 Binge frequency: Never Comment: occasional - Drug use: No REVIEW OF SYSTEMS: as above ? Reviewed relevant PMHx, PSHx, Social Hx, current medicatio ns and allergies. EXAM: BP 118/78 Pulse (!) 54 Temp 36.5 ?C (97.7 ?F) Resp 1 6 Wt 78 kg (172 lb) SpO2 99% BMI 26.94 kg/m? General Appearance: Well thomas earing, alert, in no acute distress, well-hydrated, well nourished.. Head: Normocephalic, no masses, lesions, tenderness or abnor malities. Eyes: Anicteric sclera. Pupils are equally round and reactiv e to light. Extraocular movements are intact. . Ears: External ears normal, canals clear. Nose/Sinuses: Negative except for mucosa swollen, pale, and boggy. Oropharynx: Lips, mucosa, and tongue nor mal, teeth and gums normal, oropharynx normal. Neck: Supple, no adenopathy; thyroid symmetric, normal siz. Lungs: lungs clear to auscultation. No wheezing, rhonc hi, rales shortness of breath: Upon exertion. Heart: RRR without murmur, gallop, or rubs. No ectopy. Extremities: No deformities, edema. Health Maintenance List HEPATITIS C SCREENING due on 1990 ANNUAL PCP TEAM CHRONIC DISEASE VISIT due on 01/16/2020 BP CONTROLLED (<130/80) due on 01/18/2020 DIABETES SCREEN due on 02/27/2022 COLORECTAL CANCER SCREENING,SEE MODIFIER due on 02/16/2024 LIPID SCREEN due on 02/28/2024 DTAP,TDAP,TD(2 - Td) due on 02/07/2027 ADULT PREVNAR-13 Completed PNEUMOVAX AGE 65 AND OVER WITH 5YR LOOKBACK Completed INFLUENZA Completed ASSESSMENT/PLAN: 1. ZAMORANO (dyspnea on exertion) - ICD9: 786 .09, ICD10: R06.09 (primary diagnosis) - Patient presentation does not appear to be related to pneu monia like diagnosis. No fever or productive cough. Get chest x-ray. Roberto Carlos leach has a history of a questionable stress testing in 2014 with simila r symptoms. Pulmonary performed PFTs, could not get definitive diagnosis . Consider referral back to pulmonary if chest x-ray is normal. - XR CHEST 2V FRONTAL/LAT 2. PND (post-nasal drip) - ICD9: 784.91, ICD10: R09.82 - Can take nasocort daily. Magen Shelton APRN.EMA Referring Provider: SELF [[id number]] Allergies As of Date: 04/27/2019 (No Known Allergies) Date Reviewed: 04/27/2019 Reviewed by: Diana Collier) TYLER Beltre - Fully Assessed Reason for Visit: Sore Throat [200] Cmt: stuffy no cough , no fever chills , w [place] and half Reason For Visit History Recorded Primary Visit Diagnosis:ZAMORANO (dyspnea on exertion) [R06.09] Other Visit Diagnosis:PND (post-nasal drip) [R09.82] Order(s):XR CHEST 2V FRONTAL/LAT [[id number]] Order #: [id number] FUTURE Prescriptions as of 04/27/2019 Sig: ATENOLOL 50 MG TABLET Take 1 tablet by mouth once d* SULFACETAMIDE SODIUM 9.8 %-HARRIS* Apply thin film to affected a * ASPIRIN 81 MG TABLET,DELAYED * Take 81 mg by mouth once bridgette * ATORVASTATIN 10 MG TABLET Take 10 mg by mouth once bridgette* Problem List As Of Date 04/27/2019 Noted Resolved Dyspnea on exertion [R06.09] Dyslipidemia [E78.5] HTN (hypertension) [I10] Former smoker, stopped smoking in distant past * HARLEY on CPAP [G47.33, Z99.89] Abnormal PFTs (pulmonary function tests) [R94.2]12/27/2014 Rosacea [L71.9] Disposition: Return if symptoms worsen or fail to improve. Follow-up and Disposition History Recorded Encounter Status:Closed by MAGEN SHELTON CNP on 04/27/19 Vital Signs Vital Sign Description Value / Unit Date Location The following section is limited to 5 en tries per type and includes entries from the following time range: 20191206 - 20191124 3. Body Temperature 97.11 [degF] 12-06-2019 [facility] ([id number]) Body weight 75.75 kg 03-12-2020 [facility] (21472) Body weight 75.3 kg 12-17-2019 [facility] (60486) Body weight 73.48 kg 12-06-2019 [facility] (41657) BP Diastolic 90 mm[Hg] 03-12-2020 [facility] (63863) BP Diastolic 80 mm[Hg] 12-17-2019 [facility] (84092) BP Diastolic 90 mm[Hg] 12-06-2019 [facility] (88763) BP Systolic 162 mm[Hg] 03-12-2020 [facility] (56450) BP Systolic 138 mm[Hg] 12-17-2019 [facility] (38805) BP Systolic 150 mm[Hg] 12-06-2019 [facility] (02038) Height 171.5 cm 12-17-2019 [facility] (18258) Pulse (Heart Rate) 64 /min 03-12-2020 [facility] (32290) Pulse (Heart Rate) 64 /min 12-17-2019 [facility] (43134) Pulse (Heart Rate) 68 /min 12-06-2019 [facility] (50592) Pulse Oximetry 96 % 12-06-2019 [facility] (25226) Respiratory Rate 16 /min 03-12-2020 [facility] (54935) Respiratory Rate 16 /min 12-06-2019 [facility] (46846) Encounters Date Type Reason Provider Location 04-07-2020 - Patient encounter External Provider [facility] 04-07-2020 procedure 03-18-2020 - Patient encounter External Provider [facility] 03-18-2020 procedure 03-17-2020 - Patient encounter External Provider [facility] 03-17-2020 procedure 03-12-2020 - Patient encounter Post-discharge Bella Santos [facility] 03-12-2020 procedure follow-up Lead Comment: Hospital discharge follow-up (Primary Dx); Musculoskeletal chest pain; Chest pain, unspecified type ; Atelectasis; SOB (shortness of breath); S/P CABG x 3 03-05-2020 - Patient encounter [facility] 03-05-2020 procedure External Provider Lead Comment: RE: Medication Question (Not Renewal) 12-17-2019 - Patient encounter Pain of intercostal Khaled [facility] 12-17-2019 procedure space [facility] Comment: Intercostal pain (Primary Dx ) 12-06-2019 - Patient encounter Sore throat - [facility] 12-06-2019 procedure chronic [facility] [place] [facility] Comment: Gastroesophageal reflux dise ase, esophagitis presence not specified (Primary Dx); Chronic sore throat; Postnasal drip; Coronary artery disease invo lving nez perce coronary artery of nez perce heart without angina pectoris; Essential hypertension 04-07-2020 Results Only External Provider External-N [facility] 03-18-2020 Results Only External Provider External-N [facility] 03-17-2020 Results Only External Provider External-N [facility] 03-05-2020 - 03-05-2020 Results Only External Provider External-NonCCF 04-03-2020 - 04-03-2020 Subsequent hospital Stress Lab [facility] visit by physician Hosp Comment: 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 y Medicine 03-13-2020 encounter status Lead Comment: Orders Procedures Procedure Name Date Provider Location EXTERNAL IMAGING 04-07-2020 External Provider [facility] ([id number]) Myocardial spect multiple 04-03-2020 - Bella Santos [facility] studies 04-03-2020 ([id number]) EXTERNAL IMAGING 03-18-2020 [facility] ([id number]) EXTERNAL LAB 03-17-2020 [facility] ([id number]) EXTERNAL CARDIOLOGY 03-05-[address] [facility] ([id number]) EXTERNAL LAB 03-05-[address] [facility] ([id number]) Antibody screen 06-05-2019 [facility] ([id number]) Comment: Performed By: #### TSCR #### [facility] [place], [place] [phone] Colonoscopy 02-15-2019 - 02-15-2019 [facility] (36477) Plan of Treatment Plan Description Date Location DTAP,TDAP,TD (2 - Td) DTAP,TDAP,TD (2 - Td) 02-07-2027 - [facility] 02-07-2027 ([id number]) LIPID SCREEN LIPID SCREEN 10-18-2024 - [facility] 10-18-2024 ([id number]) COLONOSCOPY COLONOSCOPY 02-16-2024 - [facility] 02-16-2024 ([id number]) COLONOSCOPY no information 02-16-2024 - [facility] 02-16-2024 ([id number]) COLORECTAL CANCER COLORECTAL CANCER 02-16-2024 [facility] in SCREENING,SEE MODIFIER SCREENING,SEE MODIFIER ([id number] [phone]) DIABETES SCREEN DIABETES SCREEN 10-18-2022 - [facility] 10-18-2022 ([id number]) ANNUAL PCP TEAM CHRONIC ANNUAL PCP TEAM CHRONIC 03-12-2021 - [facility] DISEASE VISIT DISEASE VISIT 03-12-2021 ([id number]) ANNUAL PCP TEAM CHRONIC ANNUAL PCP TEAM CHRONIC 12-05-2020 - [facility] DISEASE VISIT DISEASE VISIT 12-05-2020 ([id number]) LDL CHOLESTEROL LDL CHOLESTEROL 10-18-2020 - [facility] 10-18-2020 ([id number]) INFLUENZA (#1) INFLUENZA (#1) 2019 - [facility] 12-25-2019 ([id number]) ADVANCE DIRECTIVE ADVANCE DIRECTIVE 09-08-2011 [facility] in DISCUSSION DISCUSSION 09-08-2011 ([id number]) COLOGUARD (FIT-DNA) no information 1996 - [facility] inic 1996 ([id number]) SHINGRIX VACCINE (1 of SHINGRIX VACCINE (1 of 1996 - [facility] 2) 2) 1996 (72992) BP CONTROLLED (<130/80) BP CONTROLLED (<130/80) 1964 - [facility] 1964 (20781) HEPATITIS C SCREENING HEPATITIS C SCREENING 1964 - [facility] 1964 ([id number]) ABDOMINAL AORTIC ABDOMINAL AORTIC 1945 - [facility] ic ANEURYSM SCREENING ANEURYSM SCREENING 1945 ([id number]) NM CARDIAC PERF NM CARDIAC PERF 04-12-2021 [facility] STRESS/EXERCISE STRESS/EXERCISE ([id number]) Radiology Routine 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) 1 Occurrences starting 03/13/2020 until 04/12/2021 Comment: 1 Occurrences starting 03/13 until 04/12/2021 PRE-PROCEDURE & PRE-PROCEDURE & 03-13-2021 [facility] PRE-OPERATIVE COVID PRE-OPERATIVE COVID ([id number]) Microbiology Routine Pre-procedure lab exam 1 Occurrences starting 03/13/2020 until 03/13/2021 Comment: 1 Occurrences starting 03/13 until 03/13/[address] [facility] ([id number]) Immunizations Vaccine Notes Status Date Location Pneumococcal-13 Vac pneumococcal conjugate (completed) 01-27-2016 - [facility] Conjugate vaccine, 13 valent 01-27-2016 ([id number]) Pneumovax pneumococcal (completed) 02-01-2017 - [facility] c polysaccharide vaccine, 02-01-2017 (441 95) 23 valent Tdap (Age 7+) tetanus toxoid, reduced (completed) 02-07-2017 - [facility] diphtheria toxoid, and 02-07-2017 (4419 5) acellular pertussis vaccine, adsorbed Payers Payer Name Policy Number Location [employer] MED[employer]ARE [id number] [facility] ([id number] 195) The following information is from the original human readable contentNo Payer Records FoundNo Payer Records FoundNo Payer Records FoundNo Payer Records FoundNo Payer Records Found Social History Type Social History Date Location Description History of tobacco use Current smoker 12-27-1976 [facility] (80238) History SDOH Social 3 04-23-2019 - [facility] inic [facility] Phone 10-23-2019 ([id number]) History of tobacco use Cigarette Smoker 12-27-1976 [facility] (23836) Cigarettes smoked 03-12-2020 - [facility] ic current (pack per day) - 03-12-2020 (65758) Reported Tobacco use and exposure Never used 03-12-2020 - [facility] 03-12-2020 (69378) Alcohol intake Current drinker of 03-12-2020 - [facility] alcohol (finding) 03-12-2020 ([id number]) History SDOH Alcohol 4 10-23-2019 - [facility] Frequency 10-23-2019 ([id number]) History SDOH Alcohol Std 1 04-23-2019 - [facility] Drinks 04-23-2019 (49545) Tobacco smoking status Former smoker 03-12-2020 - [facility] NHIS 03-12-2020 ([id number]) History SDOH Social 2 04-23-2019 - [facility] Get Together 10-23-2019 (53887) History SDOH Physical 6 10-23-2019 - [facility] Activity DPW 10-23-2019 (21755) History SDOH Physical 5 04-23-2019 - [facility] Activity MPS 10-23-2019 (93686) History SDOH Education 19 04-23-2019 - [facility] 04-23-2019 ([id number]) Sex Assigned At Not on file 1945 - [facility] 1945 (72808) Exposure to SARS-CoV-[address] [facility] (event) (20017) Exposure to SARS-CoV-2 Unable to assess [facility] (event) (32017) The following information is from the original human readable contentNo Social History Records FoundNo Social History Records FoundNo Social History Records FoundNo Social History Records FoundNo Social History Records Found Medical Equipment Equipment Code Equipment Original Equipment Procedure Code Dates (if provided) Text (if provided) Identifier (if (if provided) provided) [place] Thk1.65mm [id number] 06-06-2019 Rectangle Ptfe 4.5x6mm Cardi[facility] - [id number] Reason for Referral Status Reason Specialty Diagnoses / Referred By Referred To Procedures Contact Contact Pending PCP Requested MOLECULAR & Diagnoses 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) Darrius Santos & Review Referral FUNCTIONAL Procedures NM CARDIAC PERF STRESS/EXERCISE MYOCARDIAL IMAGING, MULTIPLE Bella D [facility] [address] [facility] [address] [place], [place] Phone: [phone] Phone: Status Reason Specialty Diagnoses / Referred By Referred To Procedures Contact Contact Authorized PCP Requested MOLECULAR & Diagnoses 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) Darrius Santos & Referral FUNCTIONAL Procedures NM CARDIAC PERF STRESS/EXERCISE MYOCARDIAL IMAGING, MULTIPLE Bella D [facility] [address] [place] [id number] [place] [address] Phone: [phone] Phone: History of Past Illness Problem Noted Date Resolved Date Chest pain 06/05/2019 06/11/2019 Chest pain 06/01/2019 06/02/2019 Last Assessment & Plan: Concerning 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 & SOB x6 weeks [employer] CT chest shows calcified coronary vessel s Echo 05/07/19 w/ EF 66%, grade I diastoli c dysfunction Cycle Troponin x3 with EKGs PRN for ACS rule out Check lipid panel and A1c for risk strat ification Maintain continuous telemetry monitoring Cards consult as obtain to obtain stress test over weekend Problem Noted Date Resolved Date Chest pain 06/05/2019 06/11/2019 Chest pain 06/01/2019 06/02/2019 Last Assessment & Plan: Concerning 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 & SOB x6 weeks [employer] LO[employer] CT chest shows calcified coronary vessel s Echo 05/07/19 w/ EF 66%, grade I diastoli c dysfunction Cycle Troponin x3 with EKGs PRN for ACS rule out Check lipid panel and A1c for risk strat ification Maintain continuous telemetry monitoring Cards consult as obtain to obtain stress test over weekend Problem Noted Date Resolved Date Chest pain 06/05/2019 06/11/2019 Chest pain 06/01/2019 06/02/2019 Last Assessment & Plan: Concerning 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 & SOB x6 weeks [employer] CT chest shows calcified coronary vessel s Echo 05/07/19 w/ EF 66%, grade I diastoli c dysfunction Cycle Troponin x3 with EKGs PRN for ACS rule out Check lipid panel and A1c for risk strat ification Maintain continuous telemetry monitoring Cards consult as obtain to obtain stress test over weekend Problem Noted Date Resolved Date Chest pain 06/05/2019 06/11/2019 Chest pain 06/01/2019 06/02/2019 Last Assessment & Plan: Concerning 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 & SOB x6 weeks [employer] LO[employer] CT chest shows calcified coronary vessel s Echo 05/07/19 w/ EF 66%, grade I diastoli c dysfunction Cycle Troponin x3 with EKGs PRN for ACS rule out Check lipid panel and A1c for risk strat ification Maintain continuous telemetry monitoring Cards consult as obtain to obtain stress test over weekend Problem Noted Date Resolved Date Chest pain 06/05/2019 06/11/2019 Chest pain 06/01/2019 06/02/2019 Last Assessment & Plan: Concerning 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 & SOB x6 weeks [employer] LO[employer] CT chest shows calcified coronary vessel s Echo 05/07/19 w/ EF 66%, grade I diastoli c dysfunction Cycle Troponin x3 with EKGs PRN for ACS rule out Check lipid panel and A1c for risk strat ification Maintain continuous telemetry monitoring Cards consult as obtain to obtain stress test over weekend Problem Noted Date Resolved Date Chest pain 06/05/2019 06/11/2019 Chest pain 06/01/2019 06/02/2019 Last Assessment & Plan: Concerning 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 & SOB x6 weeks [employer] LO[employer] CT chest shows calcified coronary vessel s Echo 05/07/19 w/ EF 66%, grade I diastoli c dysfunction Cycle Troponin x3 with EKGs PRN for ACS rule out Check lipid panel and A1c for risk strat ification Maintain continuous telemetry monitoring Cards consult as obtain to obtain stress test over weekend Problem Noted Date Resolved Date Chest pain 06/05/2019 06/11/2019 Chest pain 06/01/2019 06/02/2019 Last Assessment & Plan: Concerning 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 & SOB x6 weeks [employer] LO[employer] CT chest shows calcified coronary vessel s Echo 05/07/19 w/ EF 66%, grade I diastoli c dysfunction Cycle Troponin x3 with EKGs PRN for ACS rule out Check lipid panel and A1c for risk strat ification Maintain continuous telemetry monitoring Cards consult as obtain to obtain stress test over weekend Assessments Diagnosis Pre-procedure lab exam - Primary Pre-procedural laboratory examination 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) Diagnosis Intercostal pain - Primary Other chest pain Diagnosis Hospital discharge follow-up - Primary Other follow-up examination Musculoskeletal chest pain Other chest pain Chest pain, unspecified type Atelectasis Pulmonary collapse SOB (shortness of breath) Shortness of breath S/P CABG x 3 Postsurgical aortocoronary bypass status Diagnosis Gastroesophageal reflux disease, esophag itis presence not specified - Primary Chronic sore throat Chronic pharyngitis Postnasal drip Coronary artery disease involving nez perce coronary artery of nez perce heart without angina pectoris Essential hypertension Unspecified essential hypertension Diagnosis 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) Advance Directives Documents on File Type Date Recorded Patient Executive Sales Manager Explanati on Advance Directive(s) 02/02/2019 2:43 PM Advance Directive(s) 02/15/2019 7:32 AM Advance Directive(s) 06/02/2019 9:26 AM Advance Directive(s) 06/05/2019 11:20 AM Documents on File Type Date Recorded Patient Executive Sales Manager Explanati on Advance Directive(s) 02/02/2019 2:43 PM Advance Directive(s) 02/15/2019 7:32 AM Advance Directive(s) 06/02/2019 9:26 AM Advance Directive(s) 06/05/2019 11:20 AM Documents on File Type Date Recorded Patient Executive Sales Manager Explanati on Advance Directive(s) 06/05/2019 11:20 AM Advance Directive(s) 06/02/2019 9:26 AM Advance Directive(s) 02/15/2019 7:32 AM Advance Directive(s) 02/02/2019 2:43 PM Documents on File Type Date Recorded Patient Executive Sales Manager Explanati on Advance Directive(s) 06/05/2019 11:20 AM Advance Directive(s) 06/02/2019 9:26 AM Advance Directive(s) 02/15/2019 7:32 AM Advance Directive(s) 02/02/2019 2:43 PM Summary Purpose Family History No Family History Records FoundNo Family History Records FoundNo Family History Records Found History of Present Illness Theron Delong - 12/17/2019 4:27 PM EDT Theron Delong MD Interventional Cardiology [facility] [address], [place] [address] [phone] Chief Complaint Patient presents with: Established Patient HISTORY OF PRESENT ILLNESS: Mr. Loaiza is a 74 year old male seen for follow-up status post hospital admission with a [facility] patient had prior history of coronary artery disease With bypass surgery consisted of a MOHR to the LAD vein graft to the circumflex and a vein graft to the right coronary artery Underwent nuclear stress test with no evidence of ischemia with normal left ventricular function Has no further symptoms No angina Cardiac Risk Factors age (male over 45, female over 55), hyperlipidemia, hypertension, family history of CAD PAST MEDICAL HISTORY Diagnosis Date ? Dyslipidemia ? Dyspnea on exertion ? Former smoker, stopped smoking in distant past ? HTN (hypertension) ? Kidney stones ? HARLEY on CPAP ? Rosacea PAST SURGICAL HISTORY Procedure Laterality Date ? COLONOSCOP W/ OR W/O [facility] SPEC 02/15/2019 Colonoscopy ? COLONOSCOPY 2006 ? HERNIA REPAIR HX childhood and 2007 x3 ? PAST SURGICAL HISTORY OF lithotripsy, multiple ? PAST SURGICAL HISTORY OF laser prostate ? TONSILLECTOMY HX FAMILY HISTORY Problem Relation Age of Onset ? other (No CAD) Father ? Cancer Mother , lung ? Cancer Brother thyroid Social History Tobacco Use ? Smoking status: Former Smoker Packs/day: 1.00 Years: 7.00 Pack years: 7.00 Types: Cigarettes Quit date: 12/27/1976 Years since quittin.0 ? Smokeless tobacco: Never Used ? Tobacco comment: on and off Substance Use Topics ? Alcohol use: Yes Frequency: 2-3 times a week Drinks per session: 1 or 2 Binge frequency: Never Comment: occasional ? Drug use: No ALLERGIES No Known Allergies Medications: Current Outpatient Medications Medication Sig Dispense Refill ? tamsulosin ER (FLOMAX) 0.4 mg Take 1 capsule by mouth twice daily. Dr. Shaffer. ? loratadine (CLARITIN) 10 mg tablet Take 1 tablet by mouth once daily. ? omeprazole (PRILOSEC) 20 mg capsule Take 1 capsule by mouth daily before breakfast. 1/2 hr before meal. 30 capsule 2 ? atorvastatin (LIPITOR) 40 mg tablet Take 1 tablet by mouth daily at bedtime. 90 tablet 3 ? metoprolol tartrate, short acting, (LOPRESSOR) 25 mg tablet Take 1 tablet by mouth every 12 hours.180 tablet 3 ? sennosides/docusate sodium (COLACE 2-IN-1 ORAL) Take by mouth. ? acetaminophen (TYLENOL) 500 mg tablet Take 2 tablets by mouth every 6 hours. ? aspirin, enteric coated (ASPIRIN, ENTERIC COATED) 81 mg EC tablet Take 2 tablets by mouth once daily. ? sulfacetamide sodium-sulfur 9.8-4.8 % lotn Apply thin film to affected area 1 times daily. No current facility-administered medications for this visit. Review of Systems Constitutional: Negative for chills, diaphoresis, fever, malaise/fatigue and weight loss. HENT: Negative for congestion, ear discharge, ear pain, hearing loss, nosebleeds, sinus pain, sore throat and tinnitus. Eyes: Negative for blurred vision, double vision, photophobia, pain, discharge and redness. Respiratory: Negative for cough, hemoptysis, sputum production, shortness of breath, wheezing and stridor. Cardiovascular: Negative for chest pain, palpitations, orthopnea, claudication, leg swelling and PND. Gastrointestinal: Negative for abdominal pain, blood in stool, constipation, diarrhea, heartburn, melena, nausea and vomiting. Genitourinary: Negative for dysuria, flank pain, frequency, hematuria and urgency. Musculoskeletal: Negative for back pain, falls, joint pain, myalgias and neck pain. Skin: Negative for itching and rash. Neurological: Negative for dizziness, tingling, tremors, sensory change, speech change, focal weakness, seizures, loss of consciousness, weakness and headaches. Endo/Heme/Allergies: Negative for environmental allergies and polydipsia. Does not bruise/bleed easily. Psychiatric/Behavioral: Negative for depression, hallucinations, memory loss, substance abuse and suicidal ideas. The patient is not nervous/anxious and does not have insomnia. Physical Examination: Vitals:BP 138/80 Pulse 64 Ht 5' 7.5 (1.72m) Wt 166 lb (75.3kg) BMI 25.60 kg/(m^2). BP w/Orthostatic Vitals Date and Time Orthostatic BP Orthostatic Pulse BP Pulse BP Position BP Site BP Cuff Size 12/17/19 1550 -- -- 138/80 64 Sitting Right Arm Regular Adult Last 2 Encounter Wt Readings: Date: Wt: 12/17/2019 75.3 kg (166 lb) 12/06/2019 73.5 kg (162 lb) Physical Exam Constitutional: He is oriented to person, place, and time and well-developed, well-nourished, and inno distress. No distress. HENT: Head: Normocephalic and atraumatic. Right Ear: External ear normal. Left Ear: External ear normal. Nose: Nose normal. Mouth/Throat: Oropharynx is clear and moist. Eyes: Pupils are equal, round, and reactive to light. Conjunctivae and EOM are normal. Right eye exhibits no discharge. Left eye exhibits no discharge. Neck: Normal range of motion. Neck supple. No JVD present. No tracheal deviation present. No thyromegaly present. Cardiovascular: Normal rate, regular rhythm, S1 normal, S2 normal, normal heart sounds and intact distal pulses. Exam reveals no gallop, no S3, no S4 and no friction rub. No murmur heard. Pulmonary/Chest: Effort normal and breath sounds normal. No stridor. No respiratory distress. He hasno wheezes. He has no rales. He exhibits no tenderness. Abdominal: He exhibits no distension and no mass. There is no abdominal tenderness. There is no rebound and no guarding. Musculoskeletal: Normal range of motion. General: No tenderness, deformity or edema. Lymphadenopathy: He has no cervical adenopathy. Neurological: He is alert and oriented to person, place, and time. Skin: Skin is warm and dry. No rash noted. He is not diaphoretic. No erythema. No pallor. Psychiatric: Mood, memory, affect and judgment normal. Pertinent Labs: CBC: Hemoglobin (g/dL) Date Value 06/09/2019 11.8 Hematocrit (%) Date Value 06/09/2019 36.3 WBC (k/uL) Date Value 06/09/2019 8.69 Platelet Count (k/uL) Date Value 06/09/2019 162 BMP: Glucose (mg/dL) Date Value 10/19/2019 96 Potassium (mmol/L) Date Value 10/19/2019 4.6 Sodium (mmol/L) Date Value 10/19/2019 139 Chloride (mmol/L) Date Value 10/19/2019 102 CO2 (mmol/L) Date Value 10/19/2019 25 Creatinine (mg/dL) Date Value 10/19/2019 0.91 BUN (mg/dL) Date Value 10/19/2019 17 Anion Gap (mmol/L) Date Value 10/19/2019 12 Calcium (mg/dL) Date Value 10/19/2019 9.3 INR: Lipid Profile: Cholesterol, Total Date Value Ref Range Status 10/19/2019 151 <200 mg/dL Final Comment: <200 mg/dL, Desirable 200-239 mg/dL, Borderline high >239 mg/dL, High HDL Cholesterol Date Value Ref Range Status 10/19/2019 39 (L) >39 mg/dL Final Comment: 40-59 mg/dL, Acceptable >59 mg/dL, High: Negative risk factor for coronary heart disease <40 mg/dL, Low: Positive risk factor for coronary heart disease LDL Cholesterol Date Value Ref Range Status 10/19/2019 93 <100 mg/dL Final Comment: <100 mg/dL, Optimal 100-129 mg/dL, Near optimal/above optimal 130-159 mg/dL, Borderline high 160-189 mg/dL, High >189 mg/dL, Very high Secondary prevention optimal LDL Cholesterol levels are recommended to be < 70 mg/dL Triglyceride Date Value Ref Range Status 10/19/2019 97 <150 mg/dL Final Comment: <150 mg/dL, Normal 150-199 mg/dL, Borderline high 200-499 mg/dL, High >499 mg/dL, Very high Hemoglobin A1C: No results found for: HGBA1C TSH: No results found for: TSHREFL Prior Cardiac Testing Stress test Assessment and Plan: 74 years old with prior history of coronary artery disease and bypass surgery with recent negative nuclear stress test doing well from the cardiac point we will continue same cardiac medical therapy Follow up in 6 months Follow up plannin months follow up Electronically signed by Theron Delong MD on December 17, 2019, 4:27 PM The above note was partially created using a dictation recognition software. A reasonable attempt has been made to correct any errors. documented in this encounter Bella Santos - 03/12/2020 1:40 PM EST Chief Complaint Patient presents with: ED Follow-up HPI Jocelyn Loaiza is a 74 year old male who presents here today for [facility] ER f/u. Pt was in the [facility] ER on 03/08/2020 with c/o chest pains. He stated it seemed to be located on left side with radiation to left shoulder and nowhere else. Continuous, sharp, at rest. Was not worsened with exertion. He tried Tums, nitro, with no effect on discomfort. No nausea/vomiting, diaphoresis, dyspnea, cough, fever, lightheadedness, acid reflux, or palpitations. Pt did have bypass surgery done about 11 months ago. He presented to ER in November for chest pain, which he was admitted and had a negative nuclear stress test. ER visit on 05/08/2019 pt had CXR done, which showed minimal right mid lung zone opacity, possibly early pneumonia versus atelectasis. ER doc did not feel he had pneumonia, his sx were non pleuritic, no cough, fever, malaise or other systemic sx. Had lab work done, EKG. His workup while in ER was negative. ER doc felt this was not angina, that his sx were atypical. He was discharged home. He follows with Cardio, Dr. Delong in [facility]. Pt reports today that he is confused and a little scared since his ER visit. He will have days wherehe feels perfectly fine. Some days, such as today where he feels a little sob. Last night while laying in bed he was having pain. When exercising at [facility] he generally will get his heart elevated to 95-100. But when working out the other day his heart was working a little harder in the 120-130's, which is unusual for him. He also was told that he had an abnormality on his chest x-ray and this is also concerning to him. Pt states today that his chest pain feels like when it did in May, despite normal work up in the hospital. Rosacea - Uses lotion for rosacea and he is uncertain if this lotion may be causing this or not. He's not sure, but just wanted to note this. Mini-cog not completed due to limited time with pt for an ER f/u. Past medical history, appointments, medications, allergies reviewed. Previous Medical History PAST MEDICAL HISTORY Diagnosis Date ? Dyslipidemia ? Dyspnea on exertion ? Former smoker, stopped smoking in distant past ? HTN (hypertension) ? Kidney stones ? HARLEY on CPAP ? Rosacea Previous Surgical History PAST SURGICAL HISTORY Procedure Laterality Date ? COLONOSCOP W/ OR W/O [facility] SPEC 02/15/2019 Colonoscopy ? COLONOSCOPY 2006 ? HERNIA REPAIR HX childhood and 2007 x3 ? PAST SURGICAL HISTORY OF lithotripsy, multiple ? PAST SURGICAL HISTORY OF laser prostate ? TONSILLECTOMY HX Family History FAMILY HISTORY Problem Relation Age of Onset ? other (No CAD) Father ? Cancer Mother , lung ? Cancer Brother thyroid Patient Allergies ALLERGIES No Known Allergies Current Medications Current Outpatient Medications on File Prior to Visit Medication Sig ? omeprazole (PRILOSEC) 20 mg capsule Take 1 capsule by mouth daily before breakfast. 1/2 hr before meal. ? tamsulosin ER (FLOMAX) 0.4 mg Take 1 capsule by mouth twice daily. Dr. Shaffer. ? loratadine (CLARITIN) 10 mg tablet Take 1 tablet by mouth once daily. ? atorvastatin (LIPITOR) 40 mg tablet Take 1 tablet by mouth daily at bedtime. ? metoprolol tartrate, short acting, (LOPRESSOR) 25 mg tablet Take 1 tablet by mouth every 12 hours. ? sennosides/docusate sodium (COLACE 2-IN-1 ORAL) Take by mouth. ? acetaminophen (TYLENOL) 500 mg tablet Take 2 tablets by mouth every 6 hours. ? aspirin, enteric coated (ASPIRIN, ENTERIC COATED) 81 mg EC tablet Take 2 tablets by mouth once daily. ? [DISCONTINUED] amiodarone (PACERONE) 200 mg tablet Take 1 tablet by mouth once daily. (Patient nottaking: Reported on 07/18/2019 ) ? [DISCONTINUED] furosemide (LASIX) 20 mg tablet Take 1 tablet by mouth once daily. ? sulfacetamide sodium-sulfur 9.8-4.8 % lotn Apply thin film to affected area 1 times daily. No current facility-administered medications on file prior to visit. Social History Social History Tobacco Use ? Smoking status: Former Smoker Packs/day: 1.00 Years: 7.00 Pack years: 7.00 Types: Cigarettes Quit date: 12/27/1976 Years since quittin.2 ? Smokeless tobacco: Never Used ? Tobacco comment: on and off Substance Use Topics ? Alcohol use: Yes Frequency: 2-3 times a week Drinks per session: 1 or 2 Binge frequency: Never Comment: occasional ? Drug use: No EXAM: BP 162/90 (BP Site: Left Arm, BP Position: Sitting, BP Cuff Size: Regular Adult) Pulse 64 Resp 16 Wt 75.8 kg (167 lb) BMI 25.77 kg/m? General Appearance: Well appearing, alert, in no acute distress, well-hydrated, well nourished.. Lungs: Lungs clear to auscultation. No wheezing, rhonchi, rales. Pt notes some sharper pain, 1/10 with deep inhalation in on exam. Heart: RRR without murmur, gallop, or rubs. No ectopy. Health Maintenance List ABDOMINAL AORTIC ANEURYSM SCREENING due on 1946 HEPATITIS C SCREENING due on 1964 BP CONTROLLED (<130/80) due on 1964 SHINGRIX VACCINE(1 of 2) due on 1996 ADVANCE DIRECTIVE DISCUSSION due on 09/08/2011 INFLUENZA(1) due on 12/25/2019 LDL CHOLESTEROL due on 10/18/2020 ANNUAL PCP TEAM CHRONIC DISEASE VISIT due on 12/05/2020 DIABETES SCREEN due on 10/18/2022 COLONOSCOPY due on 02/16/2024 LIPID SCREEN due on 10/18/2024 DTAP,TDAP,TD(2 - Td) due on 02/07/2027 PNEUMOVAX AGE 65 AND OVER WITH 5YR LOOKBACK Completed MENINGOCOCCAL CONJUGATE Completed Data reviewed [facility] ER reports from 03/08/2020 ASSESSMENT/PLAN: 1. Hospital discharge follow-up - ICD9: V67.59, ICD10: Z09 (primary diagnosis) - Complete chest XR today. 2. Musculoskeletal chest pain - ICD9: 786.59, ICD10: R07.89 - See below 3. Chest pain, unspecified type - ICD9: 786.50, ICD10: R07.9 - Unclear etiology, await chest XR. If normal see Dr. Delong 4. Atelectasis - ICD9: 518.0, ICD10: J98.11 - Chest XR 5. SOB (shortness of breath) - ICD9: 786.05, ICD10: R06.02 - Chest XR today; if normal will send chart to Cardiology to get their input 6. S/P CABG x 3 - ICD9: V45.81, ICD10: Z95.1 - See Cardio No restrictions at this time. Complete Chest XR today. Send note to Dr. Delong I agree with the Chief Complaint, ROS, and Past Histories independently gathered by the clinical computer support analyst and the remaining scribed note accurately describes my personal service to the patient. Bella Santos MD The documentation for this note was completed by Jocelyn Walker MA acting as scribe for Bella Santos MD. March 12, 2020 2:13 PM. Jocelyn Walker MA documented in this encounterCalderon Olsen - 12/06/2019 5:38 PM EDT This note was created using NoteWriter. Subjective Jocelyn Loaiza is a 74 year old male was here for hospital follow up. PCP Bella Santos MD He was admitted 11/26-11/27 for chest pain, ACS ruled out. He underwent a stress test which was negative. His medications were not changed. He had known coronary artery disease. He had no further chest pains. Covid test was negative. He had cardiology follow up December 16. Part of his ongoing symptoms were chronic sore throat. He was referred to ENT Dr. Johnson, who felt he had GERD or allergies. He was prescribed cimetidine which helped temporarily, then loratadine. Review of Systems Constitutional: Negative. HENT: Positive for postnasal drip and sore throat. Negative for rhinorrhea, sinus pressure, sneezing, trouble swallowing and voice change. Respiratory: Negative. Cardiovascular: Negative. Gastrointestinal: Negative. ACTIVE PROBLEM LIST Dyspnea On Exertion Dyslipidemia Htn (Hypertension) Former Smoker, Stopped Smoking in Distant Past Harley On Cpap Abnormal Pfts (Pulmonary Function Tests) Rosacea Cad (Coronary Artery Disease) S/P Cabg X 3 Glucose Intolerance Current Outpatient Medications Medication Sig ? tamsulosin ER (FLOMAX) 0.4 mg Take 1 capsule by mouth twice daily. Dr. Shaffer. ? cimetidine (TAGAMET) 400 mg tablet Take 400 mg by mouth once daily. ? atorvastatin (LIPITOR) 40 mg tablet Take 1 tablet by mouth daily at bedtime. ? metoprolol tartrate, short acting, (LOPRESSOR) 25 mg tablet Take 1 tablet by mouth every 12 hours. ? sennosides/docusate sodium (COLACE 2-IN-1 ORAL) Take by mouth. ? acetaminophen (TYLENOL) 500 mg tablet Take 2 tablets by mouth every 6 hours. ? aspirin, enteric coated (ASPIRIN, ENTERIC COATED) 81 mg EC tablet Take 2 tablets by mouth once daily. ? sulfacetamide sodium-sulfur 9.8-4.8 % lotn Apply thin film to affected area 1 times daily. ? loratadine (CLARITIN) 10 mg tablet Take 1 tablet by mouth once daily. No current facility-administered medications for this visit. Objective BP 150/90 Pulse 68 Temp 36.2 ?C (97.1 ?F) Resp 16 Wt 73.5 kg (162 lb) SpO2 96% BMI 25.37kg/m? Physical Exam Constitutional: General: He is not in acute distress. Appearance: He is not ill-appearing. HENT: Nose: No congestion or rhinorrhea. Mouth/Throat: Pharynx: Posterior oropharyngeal erythema present. No oropharyngeal exudate. Comments: Postnasal drainage noted. Neck: Musculoskeletal: No muscular tenderness. Cardiovascular: Rate and Rhythm: Normal rate and regular rhythm. Pulmonary: Breath sounds: No wheezing or rales. Abdominal: Tenderness: There is no abdominal tenderness. Lymphadenopathy: Cervical: No cervical adenopathy. Neurological: Mental Status: He is alert. Hospital discharge summary reviewed. ENT consult reviewed. Assessment and Plan 1. Gastroesophageal reflux disease, esophagitis presence not specified - ICD9: 530.81, ICD10: K21.9 (primary diagnosis) - Discontinue TAGAMET. - OMEPRAZOLE 20 MG CAPSULE,DELAYED RELEASE 2. Chronic sore throat - ICD9: 472.1, ICD10: J31.2 Return to ENT if not better. - OMEPRAZOLE 20 MG CAPSULE,DELAYED RELEASE 3. Postnasal drip - ICD9: 784.91, ICD10: R09.82 Continue LORATADINE. 4. Coronary artery disease involving nez perce coronary artery of nez perce heart without angina pectoris - ICD9: 414.01, ICD10: I25.10 Stable. 5. Essential hypertension - ICD9: 401.9, ICD10: I10 - suboptimal control - Continue current medication(s) - Follow up with cardiology and PCP. Calderon Olsen MD [facility] ([facility] [place] - 04/03/2020 12:45 PM EST RADIOLOGY SERVICE PROGRESS NOTE SERVICE DATE: 04/03/2020 SERVICE TIME: 1:57 PM PATIENT IDENTITY VERIFICATION COMPLETED USING TWO (2) STANDARD IDENTIFIERS: Name and Date of confirmed by patient verbally and Name and Date of confirmed by identification band FALL SCREENING: Has the patient had 2 falls in the last year or 1 fall with injury or currently using an Ambulatory Assistive Device (Walker, Cane, Wheelchair, Crutches, etc.)? No PATIENT GENDER DATA: .male ALLERGIES: Reviewed and unchanged MEDICATIONS REVIEWED: Not applicable PATIENT RELEVANT IMPLANT DATA REVIEWED: Not Applicable CREATININE: Creatinine Date Value Ref Range Status 10/19/2019 0.91 0.73 - 1.22 mg/dL Final 06/09/2019 0.91 0.70 - 1.40 mg/dL Final 06/07/2019 0.78 0.70 - 1.40 mg/dL Final eGFR-All Other Races Date Value Ref Range Status 10/19/2019 >60 . Final Comment: eGFR (Estimated GFR) Units of measure: mL/min/1.73 meters squared eGFR is derived from the reexpressed MDRD Study equation using the following parameters: serum creatinine, age, gender and race. The creatinine assay has been calibrated to be traceable to IDMS. An eGFR <60 mL/min/1.73m2 for >3 months is consistent with chronic kidney disease. Refer to KDOQI guidelines for clinical interpretation. In patients with unstable renal function, e.g. those with acute kidney injury, the eGFR may not accurately reflect actual GFR. eGFR- Date Value Ref Range Status 10/19/2019 >60 Final P.O.C.T. RESULTS: N/A April 03, [address] PERFORMED: No IV SITE: Ambulatory: A peripheral IV was started in the Right antecubital site with a Angio cath: 22gauge. POST EXAM PIV STATUS: Discontinued PROCEDURE TYPE: NM Stress: 12.7mCi [id number] was administered IV for Rest Imaging at 12:45 by MARCY Rothman 31.6 mCi [id number] was administered IV for Stress Imaging at 13:45 by MARCY Rothman. PATIENT DISCHARGED TO: Ambulatory patient, left NM department area. A Diagnostic radioactive procedure has taken place, with no further precautions necessary other thanroutine body substance precautions. More information regarding radiation safety can be found using this link: [email or web address] SIGNATURE: MARCY Rothman PATIENT NAME: Jocelyn Loaiza DATE: April 03, 2020 TIME: 1:57 PM PAGER/CONTACT #: documented in this encounter Instructions Patient InstructionsKingsleyCalderon jordan - 12/06/2019 5:[address] JOHNSON IF THROAT PAIN DOES NOT IMPROVE ON OMEPRAZOLE. STOP TAGAMET. documented in this encounter Additional Source Comments FOR RECORDS PERTAINING TO PATIENTS WHO ARE OR HAVE BEEN ENROLLED IN A CHEMICAL DEPENDENCY/SUBSTANCE ABUSE PROGRAM, SOME INFORMATION MAY BE OMITTED. This clinical summary was aggregated from multiple sources. Caution should be exercised in using it in the provision of clinical care. This summary normalizes information from multiple sources, and as a consequence, information in this document may materially changethe coding, format and clinical context of patient data. In addition, data may be omittedin some cases. CLINICAL DECISIONS SHOULD BE BASED ON THE PRIMARY CLINICAL RECORDS. [facility] provides no warranty or guarantee of the accuracy or completeness of information in this document. UNRECOGNIZED CONTENT PROVIDED BELOW FOR UNRECOGNIZED SECTION Source Comments In the event this information is protected by the Federal Confidentiality of Alcohol and Drug Abuse Patient Records regulations: The Federal rules restrict any use of the information to criminally investigate or prosecute any alcohol or drug abuse patient.[facility] the event this information is protected by the Federal Confidentiality of Alcohol and Drug Abuse Patient Records regulations: The Federal rules restrict any use of the information to criminally investigate or prosecute any alcohol or drug abuse patient.[facility] the event this information is protected by the Federal Confidentiality of Alcohol and Drug Abuse Patient Records regulations: The Federal rules restrict any use of the information to criminally investigate or prosecute any alcohol or drug abuse patient.[facility] Hospital[facility] the event this information is protected by the Federal Confidentiality of Alcohol and Drug Abuse Patient Records regulations: The Federal rules restrict any use of the information to criminally investigate or prosecute any alcohol or drug abuse patient.[facility] Hospital[facility] the event this information is protected by the Federal Confidentiality of Alcohol and Drug Abuse Patient Records regulations: The Federal rules restrict any use of the information to criminally investigate or prosecute any alcohol or drug abuse patient.[facility] Hospital[facility] the event this information is protected by the Federal Confidentiality of Alcohol and Drug Abuse Patient Records regulations: The Federal rules restrict any use of the information to criminally investigate or prosecute any alcohol or drug abuse patient.[facility] Hospital[facility] the event this information is protected by the Federal Confidentiality of Alcohol and Drug Abuse Patient Records regulations: The Federal rules restrict any use of the information to criminally investigate or prosecute any alcohol or drug abuse patient.[facility] HospitalIn the event this information is protected by the Federal Confidentiality of Alcohol and Drug Abuse Patient Records regulations: The Federal rules restrict any use of the information to criminally investigate or prosecute any alcohol or drug abuse patient.[facility] HospitalIn the event this information is protected by the Federal Confidentiality of Alcohol and Drug Abuse Patient Records regulations: The Federal rules restrict any use of the information to criminally investigate or prosecute any alcohol or drug abuse patient.[facility] HospitalIn the event this information is protected by the Federal Confidentiality of Alcohol and Drug Abuse Patient Records regulations: The Federal rules restrict any use of the information to criminally investigate or prosecute any alcohol or drug abuse patient.[facility] HospitalIn the event this information is protected by the Federal Confidentiality of Alcohol and Drug Abuse Patient Records regulations: The Federal rules restrict any use of the information to criminally investigate or prosecute any alcohol or drug abuse patient.[facility] HospitalIn the event this information is protected by the Federal Confidentiality of Alcohol and Drug Abuse Patient Records regulations: The Federal rules restrict any use of the information to criminally investigate or prosecute any alcohol or drug abuse patient.[facility] HospitalIn the event this information is protected by the Federal Confidentiality of Alcohol and Drug Abuse Patient Records regulations: The Federal rules restrict any use of the information to criminally investigate or prosecute any alcohol or drug abuse patient.[facility] HospitalIn the event this information is protected by the Federal Confidentiality of Alcohol and Drug Abuse Patient Records regulations: The Federal rules restrict any use of the information to criminally investigate or prosecute any alcohol or drug abuse patient.[facility] UNRECOGNIZED CONTENT PROVIDED BELOW FOR UNRECOGNIZED SECTION Reason for Visit Reason Comments Orders Reason Comments Established Patient Reason Comments ED Follow-up Reason Comments Hospital F/U Status Reason Specialty Diagnoses / Referred By Referred To Procedures Contact Contact Authorized PCP Requested MOLECULAR & Diagnoses 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) Darrius Santos & Referral FUNCTIONAL Procedures NM CARDIAC PERF STRESS/EXERCISE MYOCARDIAL IMAGING, MULTIPLE Bella Reyna Functional IMAGING [address] [place], [place] [id number] [place] [address] Phone: [phone] Phone: UNRECOGNIZED CONTENT PROVIDED BELOW FOR UNRECOGNIZED SECTION Miscellaneous Notes Telephone Encounter - Mary Payne Ma - 03/13/2020 3:06 PM ESTPatient was notified and and given number to schedule covid test/stress Mary Payne Ma Telephone Encounter - Bella Santos - 03/13/2020 1:25 PM ESTPlease notify patient that Dr Delong recommended that we do a nuclear stress test; order has shawn placed for this Bella Santos MD documented in this encounterTelephone Encounter - Jocelyn Walker MA - 03/05/2020 8:58 AM EST Notified pt that it has been submitted to [facility] on 03/03 #30 w/2 refills. Jocelyn Walker MA documented in this encounterTelephone Encounter - Mary Payne Ma - 03/13/2020 3:06 PM ESTPatient was notified and and given number to schedule covid test/stress Mary Payne Ma Telephone Encounter - Bella Santos - 03/13/2020 1:25 PM ESTPlease notify patient that Dr Delong recommended that we do a nuclear stress test; order has shawn placed for this Bella Santos MD documented in this encounter UNRECOGNIZED CONTENT PROVIDED BELOW FOR UNRECOGNIZED SECTION No Status Records FoundNo Status Records FoundNo Status Records Found UNRECOGNIZED CONTENT PROVIDED BELOW FOR UNRECOGNIZED SECTION INFORMATION SOURCE DATE CREATED AUTHOR AUTHOR'S ORGANIZATIO N 06/18/2019 [facility] DATE CREATED AUTHOR AUTHOR'S ORGANIZATIO N 04/01/2020 [facility] DATE CREATED AUTHOR AUTHOR'S ORGANIZATIO N 04/03/2020 [facility]
--- OUTSIDE RECORDS SUMMARY | 2020-04-16 05:21 | XMS RPT_ITS | CCD ---
:1945 External Reference #:[id number] Author Organization [facility] Care Team Providers Name Role Phone Belal Santos Primary Care Provider Medications Medication Name Sig Date Prescriber Location Acetaminophen acetaminophen 06-11-2019 Roberto Moseley) [facility] (TYLENOL) 500 mg Samples (34214) tablet Take 2 tablets by mouth every 6 hours. 0 06/11/2019 Active Comment: Take 2 tablets by mouth ever y 6 hours. Aspirin aspirin, enteric coated 06-11-2019 Roberto Moseley) [facility] (ASPIRIN, ENTERIC Samples (00272) COATED) 81 mg EC tablet Take 2 tablets by mouth once daily. 0 06/11/2019 Active Comment: Take 2 tablets by mouth once daily. atorvastatin atorvastatin (LIPITOR) 06-25-2019 Manju [facility] 40 mg tablet Take 1 Beto (34790) tablet by mouth daily at bedtime. 90 tablet 3 06/25/2019 Active Comment: Take 1 tablet by mouth daily at bedtime. Cimetidine cimetidine (TAGAMET) 400 12-06-2019 [facility] Provider [facility] mg tablet Take 400 mg by Provider (44 195) mouth once daily. 0 12/06/2019 Discontinued (Changing Therapy/Dosage Form) Comment: Take 400 mg by mouth once da melo. Loratadine loratadine (CLARITIN) 12-06-2019 Calderon Olsen [facility] 10 mg tablet Take 1 (05128) tablet by mouth once daily. 0 12/06/2019 Active Comment: Take 1 tablet by mouth once daily. Metoprolol metoprolol tartrate, 06-25-2019 Manju Patton [facility] short acting, Beto (65206) (LOPRESSOR) 25 mg tablet Take 1 tablet by mouth every 12 hours. 180 tablet 3 06/25/2019 Active Comment: Take 1 tablet by mouth every 12 hours. Omeprazole omeprazole (PRILOSEC) 20 03-03-2020 Magen harper [facility] mg capsule Indications: (441 95) Chronic sore throat Take 1 capsule by mouth daily before breakfast. 1/2 hr before meal. 30 capsule 2 03/03/2020 Active omeprazole (PRILOSEC) 20 mg 12-06-2019 Calderon Soto [facility] (83711) capsule Indications: Chronic sore throat , Gastroesophageal reflux disease, esophagitis presence not specified Take 1 capsule by mouth daily before breakfast. 1/2 hr before meal. 30 capsule 2 12/06/2019 Active Comment: Take 1 capsule by mouth bridgette y before breakfast. 1/2 hr before meal. sennosides/docusate sodium sennosides/docusate sodium [facility] Provider [facility] (COLACE 2-IN-1 ORAL) (COLACE 2-IN-1 ORAL) Take (46783) by mouth. 0 Active sennosides/docusate sodium (COLACE 2-IN-1 [facility] Pr [facility] (44106) ORAL) Take by mouth. 0 Active sennosides/docusate sodium (COLACE 2-IN-1 [facility] Pr [facility] (01075) ORAL) Take by mouth. 0 Active sennosides/docusate sodium (COLACE 2-IN-1 [facility] Pr [facility] (26173) ORAL) Take by mouth. 0 Active sennosides/docusate sodium (COLACE 2-IN-1 [facility] Pr [facility] (94549) ORAL) Take by mouth. 0 Active sennosides/docusate sodium (COLACE 2-IN-1 [facility] Pr [facility] (26207) ORAL) Take by mouth. 0 Active sennosides/docusate sodium (COLACE 2-IN-1 [facility] Pr [facility] (15665) ORAL) Take by mouth. 0 Active sennosides/docusate sodium (COLACE 2-IN-1 [facility] Pr [facility] (18597) ORAL) Take by mouth. 0 Active sennosides/docusate sodium (COLACE 2-IN-1 [facility] Pr [facility] (18609) ORAL) Take by mouth. 0 Active sennosides/docusate sodium (COLACE 2-IN-1 [facility] Pr [facility] (48983) ORAL) Take by mouth. 0 Active sennosides/docusate sodium (COLACE 2-IN-1 [facility] Pr [facility] (52730) ORAL) Take by mouth. 0 Active sennosides/docusate sodium (COLACE 2-IN-1 [facility] Pr [facility] (58920) ORAL) Take by mouth. 0 Active sennosides/docusate sodium (COLACE 2-IN-1 [facility] Pr [facility] (51023) ORAL) Take by mouth. 0 Active Comment: Take by mouth. Sulfacetamide / Sulfur sulfacetamide 01-15-2019 Magen ([facility]) [facility] sodium-sulfur 9.8-4.8 Mukul (97980 ) % lotn Indications: Rosacea Apply thin film to affected area 1 times daily. 0 01/15/2019 Active Comment: Apply thin film to affected area 1 times daily. tamsulosin tamsulosin ER (FLOMAX) 12-06-2019 Calderon Olsen [facility] 0.4 mg Take 1 capsule (53675 ) by mouth twice daily. Dr. Shaffer. 0 12/06/2019 Active tamsulosin ER (FLOMAX) 06-11-2019 - Roberto Mora (Pa-C) [facility] 0.4 mg TAKE 1 CAPSULE BY 12-06-2019 Samples (47082) MOUTH ONCE DAILY. 30 capsule 0 06/11/2019 12/06/2019 Discontinued Comment: Take 1 capsule by mouth twic e daily. Dr. Shaffer. TAKE 1 CAPSULE BY MOUTH ONCE DAILY. traMADol traMADol (ULTRAM) 50 06-11-2019 - Roberto Mora (Pa-C) [facility] mg tablet Indications: 12-06-2019 Samples Roberto (4 1308) Coronary artery B (Pa-C) Samples disease involving ekuk coronary artery of ekuk heart without angina pectoris TAKE 1 TABLET BY MOUTH EVERY 6 HOURS NEEDED FOR PAIN FOR UP TO 7 DAYS. 28 tablet 0 06/11/2019 12/06/2019 Discontinued Comment: TAKE 1 TABLET BY MOUTH EVERY 6 HOURS NEEDED FOR PAIN FOR UP TO 7 DAYS. Problems Active Problems Category Problem Name Status Date Location Coronary atherosclerosis History of coronary Active 0 - [facility] and other heart disease artery bypass grafting (77618) Disorders of lipid Dyslipidemia Active [facility] metabolism (99465) Esophageal disorders Gastroesophageal reflux Active [facility] disease (20845) Essential hypertension Hypertensive disorder Active [facility] (44784) Nonspecific chest pain Pain of intercostal space Active 12-16 - [facility] (58301) Other aftercare Post-discharge follow-up Active [facility] (08227) Other inflammatory Rosacea Active [facility] condition of skin (24798) Other lower respiratory Dyspnea on exertion Active [facility] disease (69468) Other lower respiratory Dyspnea Active [facility] disease (48850) Other nutritional; Disorder of carbohydrate Active 06-22-2019 - [facility] endocrine; and metabolic metabolism (44 195) disorders Other upper respiratory Posterior rhinorrhea Active [facility] infections (83758) Pleurisy; pneumothorax; Atelectasis Active [facility] pulmonary collapse (54484) Residual codes; Obstructive sleep apnea Active [facility] unclassified syndrome (43105) Screening and history of Ex-smoker Active [facility] mental health and (74172) substance abuse codes Unclassified Patient encounter status Active [facility] (95251) Past or Other Problems Category Problem Name Status Date Location Other screening for Pulmonary function Completed [facility] suspected conditions studies abnormal (44 195) (not mental disorders or infectious disease) Other upper Sore throat - Completed 12-06-2019 - [facility] ic respiratory disease chronic (86249) Results Result Name Value Range Unit Interpretation Flag Date Location progress on 2020-03 PROGRESS HNO ID: [id number] Normal 04-03-2020 Nataliia [facility] Service: Radiology ( 08139) Author Type: Clinical Death Surveys Coder Type: Progress Notes Filed: 04/03/2020 2:06 PM [...] unstable renal function, e.g. those with ac asa'carsarmiut kidney injury, the eGFR may not accurately reflect actual GFR. eGFR- Date Value Ref Range Status 10/19/2019 >60 Final P.O.C.T. RESULTS: N/A April 03, [address] PERFORMED: No IV SITE: Ambulatory: A peripheral IV was started in the [facility] antecubital site with a Angio cath: 22 gauge. POST EXAM PIV STATUS: Discontinued PROCEDURE TYPE: NM Stress: 12.7mCi Jz20t-Aolddag was adminis tered IV for Rest Imaging at 12:45 by MARCY Rothman 31.6 mCi Ok43v-Gyh view was administered IV for Stress Imaging at 13:45 by Brittany RothmanT. PATIENT DISCHARGED TO: Ambulatory patient, left [facility] area. A Diagnostic radioactive procedure has taken place, with no further precautions necessary other than routine body substance prec autions. More information regarding radiation safety can be found using is link: [email or web address] SIGNATURE: Holli Sanchez [facility] PATIENT NAME: Jocelyn Loaiza DATE: April 03, 2020 TIME: 1:57 PM PAGER/CONTACT #: nm cardiac perf stress/exercise on 2020-04-03 NM CARDIAC PERF * * *Final Report* * * Normal 1 06-04-2019 [place] STRESS/EXERCISE DATE OF EXAM: Apr 03 2020 3:02PM [facility] MDN 0004 - NM CARDIAC PERF STRESS/EXERCISE / [id number] (71823) PROCEDURE REASON: I25.119-Coronary artery disease involving ekuk coronary artery of ekuk heart * * * * Physician Interpretation [...] per formed on 01/28/15. Nuclear Med Report:1-Day Kv-83u-Kvanuvymipc Exercise Stress Gated SPECT: Myocardial perfusion imaging was performed at rest 30 to 60 minutes following the IV injection of Tc-99m tetrofosmin. One minute prior to peak exercise, the patient was injected IV with Tc-99m tetro fosmin. Gated post stress tomographic imaging was performed 10 to 20 minut es later. See administered doses below. [facility] Date of service: 04/03/2020 1:09:22 PM [...] 4:08:42 PM Final Stress ECG Report: [facility] Date of service: 04/03/2020 1:09:22 PM Ordering physician: BELLA SANTOS Specialist: Stephy Herrera Dough Raiser: Pamela Farah Stress ECG interpreting physician: Hank [...] 8 .7. The double product achieved was 839[address]. Peak heart rate was 130 b pm [...] (HRR): 20 bpm Rate Pressure Product (RPP): 84869 Toribio Treadmill Score: 9.2 Reason for test [...] Arrhythmias: Unifocal PVCs and PACs Final Stress Supervisor Felling Bucking Report: [facility] Date of service: 04/03/2020 1:09:22 PM Supervising physician: Hank Owen DO PATIENT: Name: MR. JOCELYN LOAIZA Age: 74 years Gender: M The supervising physician was present during the stress proc edure. 20 at 4:08:46 PM Final Emergency Department: JONO Transcribe Date/Time: Apr 03 2020 1:09P Dictated by : HANK OWEN DO This examination was interpreted and the report reviewed and electronically signed by: HANK OWEN DO on Apr 03 2020 4:08PM EST [id number] No panel information on 2020-04-03 [facility] (22155) cnpn on 2020-04-02 CNPN Telephone (CDLBME) Normal 04-02-2020 [facility] JOCELYN LOAIZA ([id number]) 1945 M () Date Time Provider Department [...] Result Negative for Negative for Normal 03-31-20 [facility] SCREENER AND BLENDER COVID19 (SARS COVID19 (SARS Cl [place] (30803) CoV2) by PCR. CoV2) by PCR. Comment: Result Comment: This test wa s developed and its performance characteristics determined by [facility]'s [facility] [place]. This test has been authorized by FDA [...] 23, 2019. Performed By: #### POCOVD ## ##[facility] [address] [place], [place] [phone] COVID 19 Source SCREENER AND BLENDER UPPER RESPIRATORY TRACT Normal 03-31-2020 [facility] (69707) Comment: Performed By: #### POCOVD ## ##[facility] [id number] [place], [place] [phone] cnpn on 2020-03-13 CNPN Telephone (FAMPWS) Normal 03-13-2020 [place] [facility] JOCELYN LOAIZA ([id number]) 1945 [facility] Date Time Provider Department () 03/13/20 [facility]LLA SANTOS [facility] During your visit today, we recorded the [...] disease involving jared ve coronary artery of ekuk heart with angina pectoris (HCC) [I25.119] Order(s):NM CARDIAC PERF STRESS/EXERCISE [547615 7] Order #: [id number] FUTURE PRE-PROCEDURE AND PRE-OPERATIVE COVID [SQPOCOVD] Order #: [id number] FUTURE Prescriptions as of 03/13/2020 Sig: OMEPRAZOLE [...] * *Final Report* * * Normal 03-12 [facility] FRONTAL/LAT DATE OF EXAM: Mar 12 2020 2:31PM [place] WOX 5291 - XR CHEST 2V FRONTAL/LAT / (93904) PROCEDURE REASON: multiple diagnoses * * * [...] tissues: Unremarkable. IMPRESSION: No acute radiographic abnormality. Emergency Department: [facility] Transcribe Date/Time: Mar 12 2020 2:57P Dictated by : ROSA MARIA GAMEZ MD This examination was interpreted and the report reviewed and electronically signed by: ROSA MARIA GAMEZ MD on Mar 12 2020 3:01PM EST [id number] progress on 2020-02 PROGRESS HNO ID: [id number] Normal 03-12-2020 [facility] Author: Bryon Garcia (Rt) [place] ([id number]) Service: ? Author Type: Death Surveys Coder Type: Progress Notes Filed: 03/12/2020 2:32 PM [...] 12, 2020 2:24 PM PROGRESS HNO ID: [id number] Normal 03-12-2020 [facility] Author: Bella Santos [place] ([id number]) Service: ? Author Type: Physician Type: Progress Notes Filed: 03/12/2020 6:59 PM Note Text: Chief Complaint Patient presents with: ED Follow-up HPI Jocelyn Loaiza is a 74 year old male who presents here toda y for [facility] ER f/u. Pt was in the [facility] ER on 03/08/2020 with c/o chest pains. [...] Laterality Date - COLONOSCOP W/ OR W/O [facility] SPEC 02/15/2019 Colonoscopy - COLONOSCOPY 2006 - [...] sennosides/docusate sodium (COLACE 2-IN-1 ORAL) Take by [facility]. - acetaminophen (TYLENOL) 500 mg tablet Take 2 tablets by [facility] every 6 hours. - aspirin, enteric coated [...] LOOKBACK Completed MENINGOCOCCAL CONJUGATE Completed Data reviewed [facility] ER reports from 03/08/2020 ASSESSMENT/PLAN: 1. Hospital [...] Histories in dependently gathered by the clinical sales support administrator and the remaining scr ibed note accurately describes my personal service to the patient. Bella Santos MD The documentation for this note was completed by Jocelyn ernst MA acting as scribe for Bella Santos MD. March 12, 2020 2:13 PM. Jocelyn Walker MA cnpn on 2020-03-12 CNPN Telephone (FAMPWS) Normal 03-12-2020 [place] [facility] JOCELYN LOAIZA ([id number]) 1945 [facility] Date Time Provider Department ([id number]) 03/12/20 BELLA SANTOS During your visit today, [...] Delong - Fully Assessed Reason for Visit: Results [...] 2020-03-12 CNOV Office Visit (FAMPWS) Normal 03-12-[address] [place] [address] JOCELYN Arias ([id number]) 1945 [facility] Date Time Provider Department (30853) 03/12/20 1:40 PM BELLA SANTOS During your visit today, we recorded the following informati on about you: Pulse Respiration Blood pressure Weight 64/minute 16/minute 162/90 75.8 kg Bella Santos MD 03/12/2020 6:59 PM Signed Chief Complaint Patient presents with: ED Follow-up HPI Jocelyn Loaiza is a 74 year old male who presen ts here today for [facility] ER f/u. Pt was in the [facility] ER on 03/08/2020 with c/o chest pain [...] 95-100. But when working out the [facility] er day his heart was working a little harder in the 120-130's, which is unusual for him. He also was told that h e had an abnormality on his chest x-ray and this is also concer josephine to him. Pt states today that his chest pain feels like when it did in [facility], despite normal work up in the hospital. [...] Laterality Date - COLONOSCOP W/ OR W/O [facility] SPEC 02/15/2019 Colonoscopy - COLONOSCOPY 2006 - [...] sennosides/docusate sodium (COLACE 2-IN-1 ORAL) Take by [facility]. - acetaminophen (TYLENOL) 500 mg tablet Take [...] LOOKBACK Completed MENINGOCOCCAL CONJUGATE Completed Data reviewed [facility] ER reports from 03/08/2020 ASSESSMENT/PLAN: 1. Hospital [...] Histories in dependently gathered by the clinical sales support administrator and the remaining scr ibed note accurately [...] x 3 [Z95.1] Order(s):XR CHEST 2V FRONTAL/LAT [[id number]] Order #: [id number] FUTURE Prescriptions as of 03/12/2020 Sig: [...] on 03/12/20 No panel information on 2020-03-12 [facility] (37306) obsolete on 2020-02 OBSOLETE Refill (INTMWS) Normal 03-03-2020 [facility] JOCELYN LOAIZA ([id number]) 1945 [facility] Date Time Provider Department (44780) 03/03/20 CALDERON OLSEN IN[facility] During your visit [...] 03/03/20 progress on 2019-11 PROGRESS HNO ID: [id number] Normal 12-17-2019 [facility] Author: Theron Delong [place] ([id number]) Service: ? Author Type: Physician Type: Progress Notes Filed: 12/17/2019 4:41 PM Note Text: Theron Delong MD Interventional Cardiology [facility] [place] [address] [place], [place] [address] [phone] Chief Complaint Patient presents with: Established Patient HISTORY OF PRESENT ILLNESS: Mr. Loaiza is a 74 year old male seen for follow-up status post hospital admission with a [facility] patient had prior histor y of [...] Laterality Date - COLONOSCOP W/ OR W/O [facility] SPEC 02/15/2019 Colonoscopy - COLONOSCOPY 2006 - [...] was partially created using a dictation recog Mosso software. A reasonable attempt has been made to correct any errors. cnov on 2019-12-17 CNOV Office Visit (CARDWS) Normal 12-17-19 [place] JOCELYN Arias ([id number]) 1945 [facility] Date Time Provider Department ([id number]) 12/17/19 4:00 PM THERON DELONG During your visit today, we recorded the following informati on about you: Pulse Blood pressure Weight Height 64/minute 138/80 75.3 kg 1.715 m Theron Delong MD 12/17/2019 4:41 PM Signed Theron Delong MD Interventional Cardiology [facility] [place] [address] [place], [place] [address] [phone] Chief Complaint Patient presents with: Established Patient HISTORY OF PRESENT ILLNESS: Mr. Loaiza is a 74 year old male seen for follow-up status post hospital [place] [facility] [place] had prior histor y of coronary [...] Laterality Date - COLONOSCOP W/ OR W/O [facility] SPEC 02/15/2019 Colonoscopy - COLONOSCOPY 2006 - [...] sodium (COLACE 2-IN-1 ORAL) Take by [facility]. - acetaminophen (TYLENOL) 500 [...] correct any errors. Referring Provider: BELLA SANTOS [[id number]] Allergies As of Date: 12/17/2019 (No Known [...] 12/17/19 progress on 2019-11 PROGRESS HNO ID: [id number] Normal 12-06-2019 [facility] Author: Cadleron Olsen [place] ([id number]) Service: ? Author Type: Physician Type: Progress Notes Filed: 12/07/2019 2:11 PM Note Text: This note was created using Capevoriter. Subjective Jocelyn Loaiza is a 74 year [...] sodium (COLACE 2-IN-1 ORAL) Take by [facility]. - acetaminophen (TYLENOL) 500 mg tablet Take 2 tablets by [facility] every 6 hours. - [...] Continue LORATADINE. 4. 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 5. Essential hypertension - ICD9: 401.9, ICD10: I10 - suboptimal control - Continue current medication(s) - Follow up with cardiology and PCP. MD cynthia Godinezov on 2019-12-06 CNOV Office Visit (INTMWS) Normal 12-05- 20 [place] JOCELYN Arias ([id number]) 1945 M [place] Date Time Provider Department (99037) 12/06/19 5:20 PM ACLDERON OLSEN INTSTU During your visit today, we recorded the following informati on about you: Temperature Pulse Respiration Blood pressure 97.1 degrees 68/minute 16/minute 150/90 Weight 73.5 kg Calderon Olsen MD 12/07/2019 2:11 PM Signed This note was created using Capevoriter. Subjective Jocelyn Loaiza is a 74 year [...] sennosides/docusate sodium (COLACE 2-IN-1 ORAL) Take by [facility]. - acetaminophen (TYLENOL) 500 mg tablet Take [...] Continue LORATADINE. 4. 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 angina pectoris [I25.10] Essential hypertension [...] OLSEN MD on 12/07/19 cnpn on 2019-11-30 [facility]FAMNeishaWS[facility] Normal 11-30-2019 [place] [facility] JOCELYN LOAIZA ([id number]) 1945 [facility] Date Time Provider Department (75607) 11/30/19 BELLA SANTOS FAMBASHIR During your visit today, we recorded the following informati on about you: Diana Beltre MA, MA 11/30/2019 11:04 AM Signed Received ppw for hospital follow up from [facility], for chest pain Patient is seeing cardiology [...] on 11/30/19 cnpn on 2019-11-26 [facility] Normal 11-26-2019 [place] JOCELYN LOAIZA ([id number]) 1945 M [place] Date Time Provider Department (67126) 11/26/19 BELLA SANTOS During your visit today, we recorded the following informati on about you: Xander Ruiz 11/26/2019 9:13 AM Signed Patient called stating per VV over weekend, he was instructe d to get Covid test. Looks like the provider meant to order the test, but w as not done. TC to the Covid referral line at [phone] an d was instructed to reach out to the provider that patient had VV with. Unable to locate [place]. Please advise and call patient. Once order entered, patient can call or [phone] to schedule (per referral line rep). Bella Santos MD 11/26/2019 9:35 AM Signed Would he prefer to get tested in [place]? I can send order to [facility] if he does. MD Kenzie Xiao Ma 11/26/2019 9:46 AM Signed Pt notified that covid test order has been faxed to [facility]. Pt given numbers to call to set [...] Status:Closed by KENZIE PRASAD MA on 11/26/19 [facility] (FAMPWS) Normal 11-26-2019 [place] [facility] JOCELYN LOAIZA ([id number]) 1945 [facility] Date Time Provider Department ([id number]) 11/26/19 BELLA SANTOS [facility] During your visit today, we recorded the [...] by mouth once * SULFACETAMIDE SODIUM 9.8 %-HARRSI* Apply thin film to affected a * [...] 11/26/19 progress on 2019-11 PROGRESS HNO ID: [id number] Normal 11-25-2019 [facility] Author: Marcio Neri [place] ([id number]) Service: ? Author Type: Physician Type: Progress Notes Filed: 11/25/2019 10:57 AM Note Text: null ( ) Visit Summary for JOCELYN LOAIZA - Gender: Male - Date of : [id number] Date: [id number] - Duration: 13 minutes Patient: JOCELYN LOAIZA Provider: [facility] Patient Contact Information Address [address] [place] [address] [phone] Visit Topics Covid-19 symptoms: other [Added By: [...] in case of a medical emergency.Answer [[address] [facility] [place] [address]] Please enter a number I can contact you in the event we are disconnected. Answer [[phone]] Please list the reason for your visit today Answer [See above] Conversation Transcripts [Notification] You are connected with Gilda Sood Physician.[Notification] JOCELYN LOAIZA is located in [place]. [Notification] JOCELYN LOAIZA has shared health history... Diagnosis Other viral infections of unspecified site Value: B34.8 Code: ICD-10-CM Encounter for screening for other viral diseases Value: Z11. 59 Code: ICD-10-CM Procedures Value: 13618 Code: CPT-4 OFFICE/OUTPATIENT VISIT EST Medications Prescribed cimetidine Frequency : atorvastatin Frequency : metoprolol tartrate Frequency : Flomax Frequency : tamsulosin Frequency : docusate sodium Frequency : Aspirin Low Strength Frequency : Provider Notes Mode of Communication: Computer. Patients information [facility] ed. History: Patient is 74 yo [...] have a question or problem please call for prescription assistance Please print a copy [...] ) progress on 2019-10 PROGRESS HNO ID: [id number] Normal 10-24-2019 [facility] Author: Bella [place] ([id number]) Service: ? Author Type: Physician Type: Progress Notes Filed: 10/25/2019 11:11 AM Note Text: Chief Complaint Patient presents with: F/U 3 Month HPI Jocelyn Loaiza is a 74 year old male who presents here toda y for a 3 mo f/u. HTN - Denies checking BP at home but having BP checked at [facility] 3 times per week. Reports that BP is doing good. Currently deb ing Lopressor 25 mg 1 tab po every 12 hours. Reports that Cardiac Rehab is going well, thinks he has one more month. Recently established his care to Dr. Delong at [facility] for his cardiac care. Really liked him. Lipids - Taking Lipitor 40 mg once daily. Active with exerci sing such as hiking and going to cardiac rehab 3 x per week. Could improv e his diet, likes to snack. Thinking about seeing a aircraft cleaning supervisor/nutrition to help with ideas. He needs to [...] Laterality Date - COLONOSCOP W/ OR W/O [facility] SPEC 02/15/2019 Colonoscopy - COLONOSCOPY 2006 - [...] sennosides/docusate sodium (COLACE 2-IN-1 ORAL) Take by [facility]. - acetaminophen (TYLENOL) 500 mg tablet Take 2 tablets by [facility] every 6 hours. - tamsulosin ER (FLOMAX) [...] Histories in dependently gathered by the clinical sales support administrator and the remaining scr ibed note accurately describes my personal service to the patient. Bella Santos MD The documentation for this note was completed by Jocelyn ernst MA acting as scribe for Bella Santos MD. October 24, 2019 1:23 PM. Jocelyn Walker MA cnov on 2019-10-24 CNOV Office Visit (FAMPWS) Normal 10-24-19 20 [place] [facility] JOCELYN LOAIZA ([id number]) 1945 M [place] Date Time Provider Department ([id number]) 10/24/19 1:20 PM BELLA SANTOS [facility] During your visit today, we recorded the [...] established his care to Dr. Delong at [facility] for his cardiac care. Really liked him. Lipids - Taking Lipitor 40 m g once daily. Active with exercising such as hiking and going to cardiac rehab 3 x per week. Could improve his d iet, likes to snack. Thinking about seeing a aircraft cleaning supervisor/nutrition to help with ideas. He needs to [...] Laterality Date - COLONOSCOP W/ OR W/O [facility] SPEC 02/15/2019 Colonoscopy - COLONOSCOPY 2006 - [...] sennosides/docusate sodium (COLACE 2-IN-1 ORAL) Take by [facility]. - acetaminophen (TYLENOL) 500 mg tablet Take [...] Histories in dependently gathered by the clinical sales support administrator and the remaining scr ibed note accurately [...] [B35.6] Order(s):COMP METABOLIC PANEL [SQCMP] Order #: [id number] KAILA ALEX LIPID PANEL BASIC [SQLIPB] Order #: [id number] FUTURE Prescriptions as of 10/24/2019 Sig: CIMETIDINE [...] 10/25/19 progress on 2019-09 PROGRESS HNO ID: [id number] Normal 10-22-2019 [facility] Author: Theron Carver ([id number]) Service: ? Author Type: Physician Type: Progress Notes Filed: 10/22/2019 10:34 AM Note Text: Theron Delong MD Interventional Cardiology [facility] [address] [place] Chief Complaint Patient presents with: Establish Care: [...] Laterality Date - COLONOSCOP W/ OR W/O [facility] SPEC 02/15/2019 Colonoscopy - COLONOSCOPY 2006 - [...] sennosides/docusate sodium (COLACE 2-IN-1 ORAL) Take by [facility]. - acetaminophen (TYLENOL) 500 mg tablet Take 2 tablets by [facility] every 6 hours. - tamsulosin ER (FLOMAX) [...] on 2019-10-22 CNPN Telephone (CARDWS) Normal 10-22-2019 [place] [facility] JOCELYN LOAIZA ([id number]) 1945 [place] Date Time Provider Department ([id number]) 10/22/19 THERON DELONG During your visit today, we recorded the following informati on about you: Peyton Carmichael Ma 10/22/2019 10:52 AM Signed Health and Wellness form partially completed. Given to Dr. Delong to complete and sign. Once signed, form to be faxed to [facility] Health and Wellness, AT [place] at [phone]. Peyton Carmichael Ma 10/22/2019 12:42 PM Signed [...] 2019-10-22 CNOV Office Visit (ATTILA) Normal 10-22-[address] [place] [address] [facility] JOCELYN LOAIZA ([id number]) 1945 [facility] Date Time Provider Department ([id number]) 10/22/19 9:30 AM THERON DELONG During your [...] Laterality Date - COLONOSCOP W/ OR W/O [facility] SPEC 02/15/2019 Colonoscopy - COLONOSCOPY 2006 - [...] sennosides/docusate sodium (COLACE 2-IN-1 ORAL) Take by [facility]. - acetaminophen (TYLENOL) 500 mg tablet Take [...] The above note was partially created usi [employer] a dictation recognition software. A reasonable attempt has been made to correct any errors. Referring Provider: BELLA SANTOS [[id number]] Allergies As of Date: 10/22/2019 (No Known Allergies) Date Reviewed: 10/22/2019 Reviewed by: Theron Delong - Fully Assessed Reason for Visit: Establish Care [42] Cmt: transfer care Visit Diagnosis:Coronary artery disease involving coronary b ypass graft of ekuk heart without angina pectoris [I25.810] Prescriptions as [...] 25 Hydroxy 25.7 31.0-80.0 ng/mL Low 0 [facility] (13038) Comment: Result Comment: Classificati on of 25 [place] Vitamin D status: Insufficiency/Moderate Defic iency: < or = 30 ng/mL Sufficiency/Optimal Levels: 31 to 80 ng/mL Toxicity: > 100 ng/mL Test performed by chemilumin escent immunoassay. Performed By: #### CMP, LIPB , VITD ####[facility] [address] [place] [address] [phone] lipid panel, basic on 2019-10-19 Cholesterol [Mass/Vol] 151 <200 mg/dL Normal 020 [facility] (42238) Comment: Result Comment: <200 mg/dL, Desirable 200-239 mg/dL, Borderline hi gh >239 mg/dL, High Performed By: #### CMP, LIPB , VITD ####[place] [address] [phone] Cholesterol in HDL [Mass/Vol] 39 >39 mg/dL Low 10-19-2019 [facility] (73744) Comment: Result Comment: 40-59 mg/dL, Acceptable >59 mg/dL, High: Negative ri sk factor for coronary heart disease <40 mg/dL, Low: Positive ris k factor for coronary heart disease Performed By: #### CMP, LIPB , VITD ####[place] [address] [phone] Cholesterol in LDL 93 <100 mg/dL Normal 10-19-2019 [facility] [Mass/Vol] [place] ([address]) Comment: Result Comment: <100 mg/dL, Optimal 100-129 mg/dL, Near optimal/ above optimal 130-159 mg/dL, Borderline hi gh 160-189 mg/dL, High >189 mg/dL, Very high Secondary prevention optimal LDL Cholesterol levels are recommended to be < 70 mg/dL Performed By: #### CMP, LIPB , VITD ####[place] [address] [phone] Fasting Time 12 hrs Normal 10-19-2019 [facility] (38738) Comment: Performed By: #### CMP, LIPB , VITD ####[place] [address] [phone] LDL:HDL Ratio 2.38 <2.54 Normal 10-19-2019 [facility] (05691) Comment: Result Comment: Reference: 1. National Cholesterol Educ ation Program ATP III Guideline At-A-Glance Quick Desk Reference: National Heart, Lung, and Blood Forest. National Institutes of Health. 2001: NIH Publication No. 01-3305. 2. An International Atherosc lerosis Society position paper: global recommendations for the management of dyslipidemia: executive summary, Atherosclerosis. 2014: 232(2):410-413. Performed By: #### CMP, LIPB , VITD ####[place] [address] [phone] Non HDL Cholesterol 112 <130 mg/dL Normal 10-19-2019 [facility] (88033) Comment: Result Comment: <130 mg/dL, Optimal 130-159 mg/dL, Near optimal/ above optimal 160-189 mg/dL, Borderline hi gh 190-219 mg/dL, High >219 mg/dL, Very high Secondary prevention optimal non HDL Cholesterol levels are recommended to be < 100 mg/dL Performed By: #### CMP, LIPB , VITD ####[address] [place] [address] [phone] TC:HDL Ratio 3.87 <5.10 Normal 10-19-2019 [facility] (78405) Comment: Performed By: #### CMP, LIPB , VITD ####[address] [place] [address] [phone] Triglyceride [Mass/Vol] 97 <150 mg/dL Normal 2019 [facility] (95990) Comment: Result Comment: <150 mg/dL, Normal 150-199 mg/dL, Borderline hi gh 200-499 mg/dL, High >499 mg/dL, Very high Performed By: #### CMP, LIPB , VITD ####[address] [place] [address] [phone] VLDL Cholesterol 19 <30 mg/dL Normal 10-19-2019 [facility] (00662) Comment: Performed By: #### CMP, LIPB , VITD ####[address] [place] [address] [phone] comp metabolic panel on 2019-10-19 Albumin [Mass/Vol] 4.1 3.9-4.9 g/dL Normal 10-19-2019 [facility] (20455) Comment: Performed By: #### CMP, LIPB , VITD ####[place] [address] [address] [place] [address] ALP [Catalytic activity/Vol] 58 38-113 U/L Normal 0 10-19-2019 [facility] (59305) Comment: Performed By: #### CMP, LIPB , VITD ####[place] [address] [address] [place] [place] [address] ALT [Catalytic activity/Vol] 15 10-54 U/L Normal 0 10-19-2019 [facility] (86443) Comment: Performed By: #### CMP, LIPB , VITD ####[place] [address] [address] [place] [place] [address] Anion gap [Moles/Vol] 12 9-18 mmol/L Normal 10-19-19 [facility] (92274) Comment: Performed By: #### CMP, LIPB , VITD ####[place] [address] [address] [place] [place] [address] AST [Catalytic activity/Vol] 24 14-40 U/L Normal 0 10-19-2019 [facility] (43973) Comment: Performed By: #### CMP, LIPB , VITD ####[place] [address] [address] [place] [place] [address] Bilirubin [Mass/Vol] 0.4 0.2-1.3 mg/dL Normal 0 [facility] (10993) Comment: Performed By: #### CMP, LIPB , VITD ####[place] [address] [address] [place] [address] Calcium [Mass/Vol] 9.3 8.5-10.2 mg/dL Normal 10-19-2019 [facility] (59208) Comment: Performed By: #### CMP, LIPB , VITD ####[place] [address] [address] [place] [address] [phone] Chloride [Moles/Vol] 102 97-105 mmol/L Normal 0 [facility] (01420) Comment: Performed By: #### CMP, LIPB , VITD ####[facility] [address] [place] [address] [phone] CO2 [Moles/Vol] 25 22-30 mmol/L Normal 10-19-2019 [facility] (29979) Comment: Performed By: #### CMP, LIPB , VITD ####[facility] [place] [address] Creatinine [Mass/Vol] 0.91 0.73-1.22 mg/dL Normal 10-19-19 20 [facility] (09915) Comment: Performed By: #### CMP, LIPB , VITD ####[place] [address] [address] [place] [place] [address] [phone] eGFR- Amer. >60 Normal 10-19-2019 [facility] (54206) Comment: Performed By: #### CMP, LIPB , VITD ####[place] [address] [address] [place] [address] [phone] GFR/1.73 sq M predicted >60 mL/min/{1.73_m2} Normal 10-19-2019 [facility] among non-blacks [facility] (41090) (S/P/Bld) [Vol rate/Area] Comment: Result Comment: eGFR [...] Performed By: #### CMP, LIPB , VITD ####[facility] [address] [place] [address] Glucose [Mass/Vol] 96 74-99 mg/dL Normal 10-19-2019 [facility] (55552) Comment: Result Comment: The [place] Diabetes Association (ADA) provides guidance for cutoff [...] for diagnosis of diabetes. Reference: Standards of [facility] Care in Diabetes 2016, [place] Diabetes Association. Diabetes Care. 2016.39(Suppl 1). Performed By: #### CMP, LIPB , VITD ####[facility] [address] [place] [address] [phone] Potassium [Moles/Vol] 4.6 3.7-5.1 mmol/L Normal 10-19-19 [facility] (03118) Comment: Performed By: #### CMP, LIPB , VITD ####[facility] [address] [place] [address] [phone] Protein [Mass/Vol] 6.2 6.3-8.0 g/dL Low 10-19-2019 [facility] (86594) Comment: Performed By: #### CMP, LIPB , VITD ####[facility] [address] [place] [address] Sodium [Moles/Vol] 139 136-144 mmol/L Normal 10-19-2019 [facility] (41783) Comment: Performed By: #### CMP, LIPB , VITD ####[facility] [address] [place] [address] [phone] Urea nitrogen [Mass/Vol] 17 9-24 mg/dL Normal 10-18 [facility] (02151) Comment: Performed By: #### CMP, LIPB , VITD ####[facility] [address] [place] [address] [phone] cnpn on 2019-10-18 CNPN Telephone (FAMPWS) Normal 10-18-2019 [place] [facility] JOSSEJOCELYN ([id number]) 1945 [place] Date Time Provider Department ([id number]) 10/18/19 BELLA SANTOS [facility] During your visit today, we recorded the [...] today. Thank you, Bouchra Thompson, TIMOTHY Shelton APRN.ELECTRIC METER REPAIRER 10/18/2019 9:26 AM Signed Lab order for [...] disease involving jared ve coronary artery of ekuk heart without angina pectoris [I25.10] Order(s):VITAMIN D 25 HYDROXY [SQVITD] Order #: [id number] F UTURE Prescriptions as of 10/18/2019 Sig: [...] 10/18/19 progress on 2019-07 PROGRESS HNO ID: [id number] Normal 08-21-2019 [facility] Author: Manju Lewis, [place] ([id number]) Service: ? Author Type: Physician Type: Progress Notes Filed: 08/21/2019 2:36 PM Note Text: [facility] SECTION [facility] PHONE VISIT DATE August 21, 2019 PRIMARY CARE PHYSICIAN: Bella Santos MD [address] [place] [address] HISTORY OF PRESENT ILLNESS: Mr. Loaiza is [...] Laterality Date - COLONOSCOP W/ OR W/O [facility] SPEC 02/15/2019 Colonoscopy - COLONOSCOPY 2006 - [...] Department of Medicine and Division of Cardiology, [facility] Staff Extruding Department Supervisor, Jorje Samano Department o f Cardiovascular Medicine/Heart and Vascular Forest, [facility] and clinic Clinical assistant director of public works Profressor of Medicine, [facility] ? [facility] Please note: This note has been produced using speech [employer] software and may contain errors related to that system including gram karson, punctuation, spelling, words, gender and phrases that may be inappropriate. progress on 2019-06 PROGRESS HNO ID: [id number] Normal 07-24-2019 [facility] Author: Bella Santos [place] ([id number]) Service: ? Author Type: Physician Type: Progress [...] ease hi s pain. Pt went to [place] [facility] on on 06/01/2019 due to chest pain and di scharged on 06/02/2019 due to not being able to perform heart cath. He was cleared for d/c and was then re-admitted into [facility] from 06/05/2019- for CAD requiring CABG x [...] Laterality Date - COLONOSCOP W/ OR W/O [facility] SPEC 02/15/2019 Colonoscopy - COLONOSCOPY 2006 - [...] sennosides/docusate sodium (COLACE 2-IN-1 ORAL) Take by [facility]. - acetaminophen (TYLENOL) 500 mg tablet Take 2 tablets by [facility] every 6 hours. - tamsulosin ER (FLOMAX) [...] Histories in dependently gathered by the clinical sales support administrator and the remaining scr ibed note accurately describes my personal service to the patient. Bella Santos MD The documentation for this note was completed by Jocelyn ernst MA acting as scribe for Bella Santos MD. July 24, 2019 8:31 AM. Jocelyn Walker MA tsh on 2019-07-20 TSH Qn 1.810 0.270-4.200 uU/mL Normal 07-20-2019 [facility] (98380) Comment: Performed By: #### TSH ####[facility] [address] [place], [place] [phone] progress on 2019-06 PROGRESS HNO ID: [id number] Normal 07-19-2019 [facility] Author: Christiano Tapia ([id number]) Service: ? Author Type: Physician Type: Progress Notes Filed: 07/19/2019 7:07 PM Note Text: see dictated note Christiano Tapia MD cnpn on 2019-07-19 CNPN Telephone (FAMPWS) Normal 07-19-2019 [place] [facility] STONEY LOAIZAEY ([id number]) 1945 [facility] Date Time Provider Department ([id number]) 07/19/19 BELLA SANTOS FAMPWS During your visit today, we recorded the following informati on about you: Michelle Pachecokatherine JIMÉNEZ 07/19/2019 9:12 AM Signed Patient is to start cardiac rehab on Tuesday at [facility]. He has sore throat. No other symptoms. He states that PCP meggan reyna said it was just allergies. He was supposed to start cardiac rehab 2 weeks ago and he had sore throat at that time and was told to stay home by [facility]. 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 Jocelyn Walker MA Allergies As of [...] 07/19/19 progress on 2019-06 PROGRESS HNO ID: [id number] Normal 07-18-2019 [facility] Author: Christiano Carver ([id number]) Service: Electrophysiology Author Type: Physician Type: Progress Notes Filed: 07/19/2019 8:41 AM Note Text: [facility] NOTE DEPARTMENT OF CARDIOLOGY DENZEL NAME: JOCELYN LOAIZA CLINIC NO.: [id number] DATE OF SERVICE: 07/18/2019 Jocelyn Loaiza is a 73-year-old male who I saw in consultat ion at [facility] at the time of his open heart [...] has a followup with Dr. Manju Lewis, medical manager at [facility], and he will make further decisions if he requires an y antiarrhythmic if atrial fib recurs. We will be happy to see him back in consultation if Dr. Lewis needs further opinion regarding th is plan. This was all done by telephone conversation with the patient at cell number [phone]. Follow up with cardiac EP at [facility] Gurinder garcia DICTATED BY: Christiano Tapia M.D. Brittany/Pennie JOB# [id number] cc: Archie Griffith D.O. cnptoutreach on CNPTOUTREACH Patient Outreach (FAMPST) Normal 0 07-10-2019 [place] [facility] JOCELYN LOAIZA ([id number]) 1945 [facility] Date Time Provider Department ([id number]) 07/10/19 [facility] During your visit today, we recorded the following informati on about you: Allergies As of Date: 07/10/2019 (No Known Allergies) Date Reviewed: 07/04/2019 Reviewed by: Sari Abraham - Fully Assessed Visit Diagnosis:Medication management [Z79.899] Order(s):TSH BLD [SQTSH] Order #: [id number] FUTURE Prescriptions as of 07/10/2019 Sig: ATORVASTATIN [...] Glucose intolerance [E74.39] 06/22/2019 Encounter Status:Closed by [employer], SousaCampUSER on 07/25/19 progress on 2019-06 PROGRESS HNO ID: [id number] Normal 07-04-2019 [facility] Author: Feliberto Escalante) Deniz Carver ([id number]) Service: ? Author Type: Physician Dough Raiser Type: Progress Notes Filed: 07/04/2019 2:07 PM [...] 6. Wound: No issues. 7. F/u with Extruding Department Supervisor 8. F/u with PCP 9. F/u prn 10. Patient advised to f/u with Dr. Tapia in regards to ami odarone Feliberto Guaman PA-C cnov on 2019-07-04 CNOV Office Visit (CTHORM) Normal 07-04-[address] [place] [address] [facility] JOCELYN LOAIZA ([id number]) 1945 [place] Date Time Provider Department ([id number]) 07/04/19 1:40 PM FELIBERTO GUAMAN (ROBERTO CARLOS) [...] 6. Wound: No issues. 7. F/u with Extruding Department Supervisor 8. F/u with PCP 9. F/u prn 10. Patient advised to f/u with Dr. Tapia in regards to ami odarone Feliberto Guaman PA-C Referring Provider: Rich DOUGHERTY [[id number]] Allergies As of Date: 07/04/2019 (No Known [...] * *Final Report* * * Normal 07-02 [facility] FRONTAL/LAT DATE OF EXAM: Jul 03 2019 11:27AM [place] WRX 5291 - XR CHEST 2V FRONTAL/LAT / ([id number]) PROCEDURE REASON: multiple diagnoses * * * * Physician Interpretation * * * * EXAMINATION: CHEST RADIOGRAPH (2 VIEW FRONTAL and LATERAL) CLINICAL HISTORY: Coronary artery disease involving ekuk c oronary artery of ekuk heart without angina pectoris S/P CABG x [...] median sternotomy. IMPRESSION: No acute radiographic abnormality. Emergency Department: VIK Transcribe Date/Time: Jul 03 2019 11:53A Dictated by : NILAY LOPEZ MD This examination was interpreted and the report reviewed and electronically signed by: NILAY LOPEZ MD on Jul 03 2019 11:53AM EST [id number] progress on 2019-06 PROGRESS HNO ID: [id number] Normal 07-03-2019 [facility] Author: Alexandra (Rt) Cortez [facility] ([id number]) Service: ? Author Type: Death Surveys Coder Type: Progress Notes Filed: 07/03/2019 11:28 AM [...] on 2019-06 OBSOLETE Refill (RICCO) Normal 06-25-2019 [facility] JOCELYN LOAIZA ([id number]) 1945 [facility] Time Provider Department () 06/25/19 MANJU LEWIS [...] 06/25/19 progress on 2019-05 PROGRESS HNO ID: [id number] Normal 06-22-2019 [facility] Author: Manju Lewis, DO [place] ([id number]) Service: ? Author Type: Physician Type: Progress Notes Filed: 06/22/2019 4:54 PM Note Text: [facility] SECTION OF REGIONAL CARDIOLOGY [facility] OUTPATIENT VISIT DATE June 22, 2019 PRIMARY CARE PHYSICIAN: Bella Santos MD [address] [place] [address] HISTORY OF PRESENT ILLNESS: Mr. Loaiza is a 73 year old male. The patient returns for [facility] secondary recent diagnosis of coronary disease status [...] which she wishes to do in the [place] area. We will look forward to reevaluating [...] Laterality Date - COLONOSCOP W/ OR W/O [facility] SPEC 02/15/2019 Colonoscopy - COLONOSCOPY 2006 - [...] Department of Medicine and Division of Cardiology, [facility] Staff Extruding Department Supervisor, Jorje Samano Department o f Cardiovascular Medicine/Heart and Vascular Forest, [facility] and [facility] Clinical assistant director of public works Profressor of Medicine, [facility] ? [facility] Please note: This note has been produced using [employer] software and may contain errors related to that system including gram karson, punctuation, spelling, words, gender and phrases that may be inappropriate. cnov on 2019-06-22 CNOV Office Visit (RICCO) Normal 06-22-19 20 [place] [facility] JOCELYN LOAIZA ([id number]) 1945 [place] Date Time Provider Department ([id number]) 06/22/19 1:40 PM MANJU LEWIS During your visit today, we recorded the following informati on about you: Pulse Blood pressure Weight Height 75/minute 140/80 74.8 kg 1.702 m Jacqueline Yasmin 06/22/2019 1:52 PM Signed Patient presents with: New Cardiac Patient: open heart surgery on 06/06/19 Manju Lewis DO, DO 06/22/2019 4:54 PM Signed [facility] SECTION [facility]OLOGY [facility] OUTPATIENT VISIT DATE June 22, 2019 PRIMARY CARE PHYSICIAN: Bella Santos MD [address] [place] [address] HISTORY OF PRESENT ILLNESS: Mr. Loaiza is [...] which she wishes to do in the [place] area. W rich will look forward to [...] Laterality Date - COLONOSCOP W/ OR W/O [facility] SPEC 02/15/2019 Colonoscopy - COLONOSCOPY 2006 - [...] Department of Medicine and Division of Cardiology, [facility] Staff Extruding Department Supervisor, Niranjan and Sari Samano Depart ment of Cardiovascular Medicine/Heart and Vascular Forest, [facility] Clinical assistant director of public works Profressor of Medicine, [facility] ? [facility] Please note: This note has been produced using speech recognition software and may contain errors related to that system including angel, punctuation, spelling, words, gender and phrases that may be inappropriat e. Referring Provider: MAGEN SHELTON ([facility]) [[id number]] Allergies As of Date: 06/22/2019 (No Known Allergies) Date Reviewed: 06/22/2019 Reviewed by: Manju Lewis DO - Fully Assessed Reason for Visit: New Cardiac Patient [3879] Cmt: open heart surgery on 0 Primary Visit Diagnosis:Coronary artery disease involving na tive coronary artery of ekuk heart without angina pectoris [I25.10] Other Visit Diagnoses:Essential hypertension [I10] Dyslipidemia [E78.5] S/P CABG x 3 [Z95.1] Order(s):CONSULT TO CARDIOLOGY [9004] Order #: [id number] : 1 CARDIAC REHAB II OUT ([place], [place]) [[id number]] Order #: [id number] Qty: 1 Prescriptions as of 06/22/2019 Sig: [...] 06/22/19 progress on 2019-05 PROGRESS HNO ID: [id number] Normal 06-18-2019 [facility] Author: Kishore (Solange) Nawaf [place] ([id number]) Service: ? Author Type: Physician Dough Raiser Type: Progress Notes Filed: 06/19/2019 7:22 PM [...] 2019-06-18 CNOV Office Visit (CTHORM) Normal 06-18-[address] [place] [address] [facility] JOCELYN LOAIZA ([id number]) 1945 [facility] Date Time Provider Department ([id number]) 06/18/19 1:00 PM KISHORE FOOTE) CTHORM During [...] Kishore Foote PA-C Referring Provider: Rich DOUGHERTY [[id number]] Allergies As of Date: 06/18/2019 (No Known [...] artery disease) [I25.10] 06/05/2019 Encounter Status:Closed by KISHORE FOOTE on 06/19/19 progress on 2019-05 PROGRESS HNO ID: [id number] Normal 06-13-2019 [facility] Author: Bella Santos ([id number]) Service: ? Author Type: Physician Type: Progress Notes Filed: 06/13/2019 2:19 PM Note Text: Noted Bella Santos MD progress on 2019-05 PROGRESS HNO ID: [id number] Normal 06-12-2019 [facility] Author: Angel Burt [facility] ([id number]) Service: ? Author Type: ? Type: Progress Notes Filed: 06/13/2019 2:19 PM Note Text: TRANSITION CARE MANAGEMENT (TCM) INITIAL CONTACT Director Speech Language Outreach Provider Action/FYI: -HH nurse just left [...] -All specialty follow up appts made, waiting central communications specialist from PT AND OT Initial contact with patient post discharge, spoke to yuko [place] Patient identified by name and . TRANSITION CARE MANAGEMENT INITIAL OUTREACH DOCUMENTATION: Date of Outreach: 06/12/2019 06/04/2019 Outreach Attempt 1: Contact Made Contact Not Made Date of Discharge 06/11/2019 06/02/2019 Some recent data might be hidden SUMMARY: -Pt discharged from [facility] on 06/11/2019. -Admitted for: CAD/Coronary artery bypass [...] disease involving nativ e coronary artery of ekuk heart without angina pectoris ? potassium chloride [...] ? Yes Medical records from recent hospitalization: [facility] ematoutreach on CNPTOUTREACH Patient Outreach (FAMPWS) Normal 0 06-12-2019 [place] [facility] JOCELYN LOAIZA ([id number]) 1945 M [place] Date Time Provider Department ([id number]) 06/12/19 ANGEL BURT (JESSY) FAMPWS During your visit today, we recorded the following informati on about you: Angel Burt JESSY 06/13/2019 2:19 PM Signed TRANSITION CARE MANAGEMENT (TCM) INITIAL CONTACT Director Speech Language Outreach Provider Action/FYI: -HH nurse just left [...] -All specialty follow up appts made, waiting central communications specialist from PT AND OT Initial contact with patient post discharge, spoke to yuko [place] Patient identified by name and . TRANSITION CARE MANAGEMENT INITIAL OUTREACH DOCUMENTATION: Date of Outreach: 06/12/2019 06/04/2019 Outreach Attempt 1: Contact Made Contact Not Made Date of Discharge 06/11/2019 06/02/2019 Some recent data might be hidden SUMMARY: -Pt discharged from [facility] on 06/11/2019. -Admitted for: CAD/Coronary artery bypass [...] 0 Associated Diagnoses:Coronary artery disease inv olving ekuk coronary artery of ekuk heart without angina pectoris ? potassium chloride [...] ? Yes Medical records from recent hospitalization: [facility] Bella Santos MD 06/13/2019 2:19 PM Signed Noted Bella Santos MD Allergies As of Date: 06/12/2019 (No Known Allergies) Date Reviewed: 06/11/2019 Reviewed by: Keya (Rn) TIMOTHY Mcmillan - Fully Assessed Reason for Visit: Transition Of Care [4074] Cmt: dc 06/11/2019 [facility] Prescriptions as of 06/12/2019 Sig: ACETAMINOPHEN 500 [...] 06/13/19 progress on 2019-05 PROGRESS HNO ID: [id number] Normal 06-11-2019 [facility] Author: Fadia Bangura ([id number]) Service: Electrophysiology Author Type: Physician Type: Progress [...] mg PO/FT DAILY 06/06/19 1453 -- @LP PLINK([id number],1)@ VTE Prophylaxis: VTE prophylaxis appropriate SIGNATURE: Fadia Bangura MD PATIENT NAME: Jocelyn Loaiza DATE: June 11, 2019 TIME: 3:32 PM PAGER/CONTACT #: plan of care on PLAN OF CARE HNO ID: [id number] Normal 06-11-19 [facility] Author: Myrna Gonzales (Press Feeder) ([id number]) Service: Pharmacy Author Type: Death Surveys Coder Type: Plan of Care Filed: 06/18/2019 10:45 AM Note Text: FACILITIES MAINTENANCE ASSISTANT BEDSIDE DELIVERY SURVEY 1. Patient to use [facility] Bedside Delivery - YES Insurance Information as follows: 2. Insurance card on file - YES 3. Credit card for payment - N/A PLAN OF CARE HNO ID: [id number] [place] 06-11-[address] [place] [address] Author: Myrna Gonzales (Foodzai) ([id number]) Service: Pharmacy Author Type: Death Surveys Coder Type: Plan of Care Filed: 06/18/2019 10:45 AM Note Text: Pharmacy Discharge Medication Service: This patient has elected to receive their discharge prescrip tions through the [facility] Bedside Prescription Delivery program. The prescriptions are currently being processed. A follow-up not e will be entered once the prescriptions have been filled and delivere d to the patient. Please contact me with any questions or updates to the patient's discharge medications. Myrna Gonzales (Foodzai) DCT Contact Info: [id number] PLAN OF CARE HNO ID: [id number] [place] 06-11-[address] [place] [address] Author: Myrna Gonzales (Foodzai) ([id number]) Service: Pharmacy Author Type: Death Surveys Coder Type: Plan of Care Filed: 06/18/2019 10:46 [...] echo procedure) Commonly known as: CHANEL Gonzales (Press Feeder) PAGER: [phone] June 11, 2019 10:45 AM nursing prog on NURSING PROG HNO ID: [id number] [place] 06-11-[address] [place] [address] Author: Keya (Rn) TIMOTHY Mcmillan ([id number]) Service: Nursing Author Type: Registered Nurse Type: Nursing Progress Note Filed: 06/11/2019 5:40 PM Note Text: Discharge instructions reviewed with pt and post cardiothora sic discharge instructions reviewed with pt. IV removed. Telemetry removed . Pt had prescriptions filled here at [facility] and had them in hand a t time of discharge.Discharged to home with belongings with family mem bers. case managem on CASE MANAGEM HNO ID: [id number] [place] 06-11-[address] [place] [address] Author: Mirta Newman (Rn)_ TIMOTHY Humphrey ([id number]) Service: Case Management Author Type: Registered Nurse Type: Care Mgt Progress Note Filed: 06/11/2019 2:28 PM Note Text: CARE MANAGEMENT DISCHARGE NOTE SERVICE DATE: 06/11/2019 SERVICE TIME: 2:25pm LOS: 6 days Admission Date: 06/05/2019 DISCHARGE ARRANGEMENT (list agency and phone number) Discharge Arrangement: Home Long-Term Care: PT;Nursing;OT Provider Name: [facility] HANDOFF COMMUNICATION: Handoff to: Primary Care Physician Primary Care Physician Name/Phone: Dr. Bella Burroughs [phone] TRANSPORTATION ARRANGEMENTS: Transportation Arrangements: Car Discharge Information Row Name Admission (Current) from 06/05/[address] [facility] Care Agency [facility] Start of Care 06/13/19 Needs Prior to Discharge: Ready for Discharge IMM Follow Up Copy Given: Yes Copy given to:: Patient Method: In Person Patient is medically cleared for discharge today, referral t o [facility] updated, clinical nurse is aware of disc harge plans for today, family to transport. SIGNATURE: Mirta Humphrey RN PATIENT NAME: Jocelyn Loaiza DATE: June 11, 2019 TIME: 2:26 PM PAGER/CONTACT #: [phone] CASE MANAGEM HNO ID: [id number] Normal 06-11-[address] [place] [address] Author: Albertina COATES ([id number]) Service: Care Management Author Type: ? Type: Care Mgt Progress Note Filed: 06/11/2019 1:46 PM Note Text: CARE MANAGEMENT PROGRESS NOTE SERVICE DATE: 06/11/2019 SERVICE TIME: 11:32am LOS: 6 days IMM Follow Up Copy Given: Yes Copy given to:: Patient Method: In Person SIGNATURE: Albertina COATES PATIENT NAME: Jocelyn Loaiza DATE: June 11, 2019 TIME: 1:45 PM PAGER/CONTACT #: [phone] xr chest 2v frontal/lat on 2019-06-10 XR CHEST 2V * * *Final Report* * * Normal 06-10 [facility] FRONTAL/LAT DATE OF EXAM: Jun 10 2019 8:23AM Hospital FVX 5291 - XR CHEST 2V FRONTAL/LAT / ([id number]) PROCEDURE REASON: Post-operative / post-procedure assessment , [...] bases remains stable with p ersistent cardiomegaly. Emergency Department: [facility] Transcribe Date/Time: Jun 10 2019 8:29A Dictated by : ANITA MIKE MD This examination was interpreted and the report reviewed and electronically signed by: ANITA MIKE MD on Jun 10 2019 8:31AM EST [id number] progress on 2019-05 PROGRESS HNO ID: [id number] Normal 06-10-2019 [facility] Author: Feliberto Guaman (Pa) ([id number]) Service: Thoracic Surgery Author Type: Physician Dough Raiser Type: Progress Notes Filed: 06/10/2019 10:37 AM [...] 7.350 - 7.450 pH units Final Specific [place], Ur Date Value Ref Range Status 06/05/2019 [...] home with HHC likely tomorrow SIGNATURE: Feliberto Guaman PA-C PATIENT NAME: Jocelyn ernst DATE: June 10, 2019 TIME: 10:32 AM nursing prog on NURSING HNO ID: [id number] Normal 06-10-2019 [facility] PROG Author: Cally Harper (Rn) TIMOTHY [facility] Service: ? ([id number]) Author Type: Registered Nurse Type: Nursing Progress Note Filed: 06/10/2019 6:47 PM Note Text: Nursing Progress Note Patient Name: Jocelyn Loaiza Patient Location: [address]16/FV-[id number] Daily Note:1012 Paged PA. Gave suppository this [...] consult prog on CONSULT PROG HNO ID: [id number] Normal 06-10-19 [facility] Author: Christiano Tapia ([id number]) Service: Electrophysiology Author Type: Physician Type: Consult [...] health on 14-06-15 [facility] HNO ID: [id number] Normal 020 [facility] Author: José Antonio (Rt) Bryon Rosales ([id number]) Service: Radiology Author Type: Death Surveys Coder Type: Allied Health Filed: 06/10/2019 8:25 AM [...] * *Final Report* * * Normal 06-09 [facility] FRONTAL PORT DATE OF EXAM: Jun 09 2019 10:10AM [facility] ([id number]) FVX 5376 - XR CHEST 1V FRONTAL PORT / PROCEDURE REASON: Post-operative / post-procedure assessment , asymptomatic * * * * Physician Interpretation * * * * EXAMINATION: CHEST RADIOGRAPH (PORTABLE SINGLE VIEW AP) Exam Date/Time: 06/09/2019 10:10 AM CLINICAL HISTORY: Post-operative / post-procedure assessment , asymptomatic MQ: XCPR_5 Comparison: 06/07/2019 RESULT: Lines, tubes, and devices: The previously seen Tignall-Gracie cat heter has been removed. Lungs and pleura: There is persistent hypoinflation of the l ungs with improvement of the infiltrates/atelectatic changes involving both lung bases. There are small bilateral pleural effusions. Cardiomediastinal silhouette: There is persistent cardiomega ly. The patient is status post median sternotomy. Other: None. IMPRESSION: Satisfactory postoperative exam. Emergency Department: [facility] Transcribe Date/Time: Jun 09 2019 10:12A Dictated by : ANITA MIKE MD This examination was interpreted and the report reviewed and electronically signed by: ANITA MIKE MD on Jun 09 2019 10:13AM EST [id number] progress on 2019-05 PROGRESS HNO ID: [id number] Normal 06-09-2019 [facility] Author: Feliberto Guaman (Pa) ([id number]) Service: Thoracic Surgery Author Type: Physician Dough Raiser Type: Progress Notes Filed: 06/09/2019 9:30 AM [...] 7.350 - 7.450 pH units Final Specific [place], Ur Date Value Ref Range Status 06/05/2019 [...] GI ppx: -protonix D/C planning home with [facility] likely tomorrow vs Tuesday Procedure Note: [...] AM nursing prog on NURSING HNO ID: [id number] Normal 06-09-2019 [facility] PROG Author: Cally Harper (Rn) TIMOTHY [facility] Service: ? ([id number]) Author Type: Registered Nurse Type: Nursing Progress Note Filed: 06/09/2019 6:05 PM Note Text: Nursing Progress Note Patient Name: Jocelyn Loaiza [facility]/ Daily Note:0930 ROBERTO CARLOS removed chest tubes [...] by: Cally [facility] RN NURSING HNO ID: [id number] Normal 06-09-2019 [facility] Author: Tasha KarimiRn) TIMOTHY [facility] Service: Nursing ([id number]) Author Type: Registered Nurse Type: Nursing Progress Note Filed: 06/09/2019 12:12 AM Note Text: Nursing Progress Note Patient Name: [facility]iza [facility] Daily Note: 2331: mahamed Escalante). Pt converted into SNR. Currently on amino gtt 1mg. 2340: paged returned. Feliberto ordered to stop the amino gtt. A nd to restart amiodarone 200 mg PO BID. And to discontinued 12.5 mg metopr olol BID. This note was completed by: Tasha [facility] RN magnesium on 06-09 Magnesium [Mass/Vol] 2.0 1.7-2.6 mg/dL Normal 0 [facility] (02152) Comment: Performed By: #### CBC, PT, PTTAC #### [facility] [address] [place] [address] ecg complete on ECG COMPLETE NAME : JOCELYN LOAIZA Normal 05-26 [facility] PID : [id number] (0000 0) : 1945 Gender : Male Race : ORD : [id number] Procedure Date : Jun 09 2019 08:40:36 Edit Date : Jun 16 2019 19:33:31 Diagnosis:Sinus rhythm Left anterior fascicular block Probable left ventricular hypertrophy Diffuse ST elevation, consider pericarditis Abnormal ECG Confirmed by YESSICA MCLAIN MD ([id number]) on 06/16/2019 7:3 3:27 PM Ventricular Rate : 71 BPM Atrial Rate : 71 BPM P-R Interval : 157 ms QRS Duration : 108 ms Q-T Interval : 425 ms QTC Calculation(Bazett) : 462 ms P [place] : 24 degrees R [place] : -56 degrees T [place] : 41 degrees Test Reason : Post-OP Location : 400 : FVEKG PK2B Overread By : YESSICA MCLAIN MD Edited By : YESSICA MCLAIN MD Referred By : , Acquired by : HUGO MORENO consult on CONSULT HNO ID: [id number] Normal 06-09-2019 [facility] Author: Christiano Tapia ([id number]) Service: Electrophysiology Author Type: Physician Type: Consults Filed: 06/09/2019 1:29 PM Note Text: [facility]ARDIOVASCULAR [facility]ICINE CONSULT NOTE Jocelyn Loaiza [id number] PRIMARY SERVICE: Internal Medicine CONSULTING SERVICE: Cardiovascular [...] Tapia to see patient. Irene Alexander, DNP, TRACTOR CRANE OPERATOR.[facility]- Pager [phone] 06/09/2019 11:49 AM PAST MEDICAL HISTORY PAST MEDICAL HISTORY Diagnosis Date - Dyslipidemia - Dyspnea on exertion - Former smoker, stopped smoking in distant past - HTN (hypertension) - Kidney stones - HARLEY on CPAP - Rosacea PAST SURGICAL HISTORY Procedure Laterality Date - COLONOSCOP W/ OR W/O [facility] SPEC 02/15/2019 Colonoscopy - COLONOSCOPY 2006 - [...] 2019-06-09 Abs Baso <0.03 <0.11 Normal 06-09-2019 [facility] (25038) Comment: Performed By: #### CBC, PT, PTTAC #### [place] [address] Abs [place] 1.08 <0.87 k/uL High 06-09-2019 [facility] (53380) Comment: Performed By: #### CBC, PT, PTTAC #### [place] [address] Abs Neut 6.23 1.45-7.50 k/uL Normal 06-09-2019 [facility] (27965) Comment: Performed By: #### CBC, PT, PTTAC #### [place] [address] Basophils/100 WBC (Bld) 0.2 % Normal 2019 [facility] (18853) Comment: Performed By: #### CBC, PT, PTTAC #### [place] [address] DTYPE Auto Diff Normal 06-09-2019 [facility] (68025) Comment: Performed By: #### CBC, PT, PTTAC #### [address] Eosinophils (Bld) [#/Vol] 0.24 <0.46 k/uL Normal 05-26 [facility] (14513) Comment: Performed By: #### CBC, PT, PTTAC #### [place] [address] Eosinophils/100 WBC (Bld) 2.8 % Normal 05-26 [facility] (91097) Comment: Performed By: #### CBC, PT, PTTAC #### [place] [address] Erythrocyte distribution 12.9 11.5-15.0 % Normal 06-09 [facility] width (RBC) [Ratio] (32406) Comment: Performed By: #### CBC, PT, PTTAC #### [place] [address] Hematocrit (Bld) [Volume 36.3 39.0-51.0 % Low 06-09 [facility] (57859) fraction] Comment: Performed By: #### CBC, PT, PTTAC #### [place] [address] Hemoglobin (Bld) 11.8 13.0-17.0 g/dL Low 06-09-2019 [facility] [Mass/Vol] (05323) Comment: Performed By: #### CBC, PT, PTTAC #### [place] [address] Lymphocytes (Bld) [#/Vol] 1.12 1.00-4.00 k/uL Normal 05-26 [facility] (10042) Comment: Performed By: #### CBC, PT, PTTAC #### [place] [address] Lymphocytes/100 WBC (Bld) 12.9 % Normal 05-26 [facility] (65900) Comment: Performed By: #### CBC, PT, PTTAC #### [place] [address] MCH (RBC) [Entitic mass] 30.8 26.0-34.0 pG Normal 06-09 [facility] (49935) Comment: Performed By: #### CBC, PT, PTTAC #### [place] [address] MCHC (RBC) [Mass/Vol] 32.5 30.5-36.0 g/dL Normal 06-09-19 [facility] (18284) Comment: Performed By: #### CBC, PT, PTTAC #### [place] [address] MCV (RBC) [Entitic vol] 94.8 80.0-100.0 fL Normal 06-09 [facility] (72985) Comment: Performed By: #### CBC, PT, PTTAC #### [address] [address] Monocytes/100 WBC (Bld) 12.4 % Normal 2019 [facility] (20094) Comment: Performed By: #### CBC, PT, PTTAC #### [place] [address] Neutrophils/100 WBC (Bld) 71.7 % Normal 05-26 [facility] (54605) Comment: Performed By: #### CBC, PT, PTTAC #### [address] [address] Platelet mean volume 10.3 9.0-12.7 fL Normal [facility] (51760) (Bld) [Entitic vol] Comment: Performed By: #### CBC, PT, PTTAC #### [place] [address] Platelets (Bld) [#/Vol] 162 150-400 k/uL Normal 2019 [facility] (49747) Comment: Performed By: #### CBC, PT, PTTAC #### [place] [address] RBC (Bld) [#/Vol] 3.83 4.20-6.00 m/uL Low 06-09-2019 [facility] (37625) Comment: Performed By: #### CBC, PT, PTTAC #### [place] [phone] WBC (Bld) [#/Vol] 8.69 3.70-11.00 k/uL Normal 06-09-2019 [facility] (33778) Comment: Performed By: #### CBC, PT, PTTAC #### [place] [address] basic metabolic panl on 2019-06-09 Anion gap [Moles/Vol] 10 9-18 mmol/L Normal 06-09-19 [facility] (62646) Comment: Performed By: #### CBC, PT, PTTAC #### [place] [address] Calcium [Mass/Vol] 8.5 8.5-10.5 mg/dL Normal 06-09-2019 [facility] (32960) Comment: Performed By: #### CBC, PT, PTTAC #### [place] [address] Chloride [Moles/Vol] 101 98-110 mmol/L Normal 0 [facility] (39423) Comment: Result Comment: Reviewed Performed By: #### CBC, PT, PTTAC #### [place] [address] CO2 [Moles/Vol] 27 23-32 mmol/L Normal 06-09-2019 [facility] (86369) Comment: Performed By: #### CBC, PT, PTTAC #### [place] [address] Creatinine [Mass/Vol] 0.91 0.70-1.40 mg/dL Normal 06-09-19 [facility] (21511) Comment: Performed By: #### CBC, PT, PTTAC #### [place] [address] eGFR- Amer. >60 >60 Normal 06-09-2019 [facility] (24504) Comment: Performed By: #### CBC, PT, PTTAC #### [place] [address] GFR/1.73 sq M >60 >60 mL/min/{1.73_m2} Normal 0 [facility] predicted among (000 00) non-blacks MDRD (S/P/Bld) [Vol rate/Area] Comment: Performed By: #### CBC, PT, PTTAC #### [place] [address] Glucose [Mass/Vol] 121 65-100 mg/dL High 06-09-2019 [facility] (77139) Comment: Performed By: #### CBC, PT, PTTAC #### [place] [address] Potassium [Moles/Vol] 4.0 3.5-5.0 mmol/L Normal 06-09-19 [facility] (68858) Comment: Performed By: #### CBC, PT, PTTAC #### [place] [address] Sodium [Moles/Vol] 138 135-146 mmol/L Normal 06-09-2019 [facility] (69065) Comment: Performed By: #### CBC, PT, PTTAC #### [place] [address] Urea nitrogen [Mass/Vol] 21 10-25 mg/dL Normal 06-09 [facility] (73684) Comment: Performed By: #### CBC, PT, PTTAC #### [facility] [address] [place] [id number] allied health on 14-06-14 [facility] HNO ID: [id number] Normal 020 [facility] Author: Holli KarimiRtBryon Francis ([id number]) Service: Radiology Author Type: Death Surveys Coder Type: Allied Health Filed: 06/09/2019 10:11 AM [...] therapy nt on 06-08 THERAPY HNO ID: [id number] Normal 06-08-2019 [facility] NT [facility] Service: Physical Therapy () Author Type: Stoper Type: Therapy (PT/OT/Speech/Resp) Filed: 06/08/2019 2:51 PM Note Text: Attestation signed by Francisco J Post) Jesus Manuel at 06/08/2019 4:08 PM I reviewed and agree with the assessment as documented above . SIGNATURE: Francisco J Ken PT DATE: June 08, 2019 TIME: 4:08 PM Physical Therapy Treatment SERVICE DATE: 06/08/2019 SERVICE TIME: 1310 to 1335 ROOM: [place] [address] S/P CABG x 3 Recommended Discharge Disposition: [...] Diagnosis: Reduced mobility-other Interventions Provided: Therapeutic Exercise (13099);Gait Tr сергей (21569) Therapeutic Exercise (93576) Treatment Minutes: 10 1 unit Skilled Intervention(s): Instruction in therapeutic exercise for increased circulation and strength of B LE Verbal and tactile cuing provided for pace and performance; pt performed slowly for maximum benefit Education in performing seated ex 2-3 x daily as indicated Gait Training (96890) Treatment Minutes: 15 1 unit Skilled Intervention(s): [...] shower Laundry: Basement Equipment Owned: Cane;Wheeled Walker;Shower Chair;Oil Laboratory Analyst(st air lift, may also have sock aide [...] 2019 TIME: 2:48 PM THERAPY HNO ID: [id number] Normal 06-08-2019 [facility] Author: Esperanza (Ot/L) [facility] Service: Occupational Therapy ([id number]) Author Type: Occupational Therapist Type: Therapy (PT/OT/Speech/Resp) Filed: 06/08/2019 1:19 PM Note Text: Occupational Therapy Treatment SERVICE DATE: 06/08/2019 SERVICE TIME: 1217 to 1256 ROOM: [place] [address] Recommended Discharge Disposition: Home OT Anticipated Discharge Needs: Physical Assist at Home;Equipme nt Physical Assist at Home for: Cleaning;Laundry;Transportation ;Shopping Recommended Discharge Equipment: Oil Laboratory Analyst;Long Handled Sponge OT Recommendations to Nursing: ADL?s [...] of Session: Other: See Comment( ambulating with TOP INSTALLER back into room ) Patient Disposition at [...] of daily living (ADL) Interventions Provided: Self Long-Term Management (04919) Self Long-Term Management (43465) Treatment Minutes: 39 3 units Skilled Intervention(s): [...] pt able to doff L sock with med dir with Min A for AE placement and [...] History: HTN, HLD Patient Report: Pt AND TOP INSTALLER just returning from ambulating ar ound the [...] shower Laundry: Basement Equipment Owned: Cane;Wheeled Walker;Shower Chair;Oil Laboratory Analyst(st air lift, may also have sock aide [...] 20 Please see discipline specific clinical documentation [facility] for complete details for this therapy evaluation/treatment. SIGNATURE: Esperanza Tucker OT/L PATIENT NAME: Jocelyn Loaiza DATE: June 08, 2019 TIME: 1:06 PM THERAPY HNO ID: [id number] Normal 06-08-2019 [facility] Service: Physical Therapy ([id number]) Author Type: Stoper Type: Therapy (PT/OT/Speech/Resp) Filed: 06/08/2019 10:52 AM Note Text: Attestation signed by Sharee Puri at 06/08/2019 12:31 PM I reviewed and agree with the documentation corresponding to this therapy visit. SIGNATURE: Sharee Puri PT DATE: June 08, 2019 TIME: 12:31 PM PHYSICAL THERAPY MISSED VISIT SERVICE DATE: 06/08/2019 SERVICE TIME: 1000 to 1000 ROOM: [place] [address] Attempted Treatment. Patient not seen due to (pt returning t o bed; requested p.m. session). SIGNATURE: Melodie Anand [facility] PATIENT NAME: Jocelyn Hollins jackeline DATE: June 08, 2019 TIME: 10:52 AM pt ed on 2019-06-08 PT ED HNO ID: [id number] Normal 06-08-2019 [facility] Author: Krystin Peterson RN ([id number]) Service: Cardiac Rehab Author Type: Registered Nurse [...] Outpatient Cardiac Rehab: Yes . Facility Preferred: [facility] DIAGNOSIS: Open Heart Surgery: CABG Open Heart [...] PM progress on 2019-05 PROGRESS HNO ID: [id number] Normal 06-08-2019 [facility] Author: Feliberto Guaman (Pa) ([id number]) Service: Thoracic Surgery Author Type: Physician Dough Raiser Type: Progress Notes Filed: 06/08/2019 11:12 AM [...] was deemed approp riate for transfer to [facility] on POD #1. Patient reports feeling much [...] 7.350 - 7.450 pH units Final Specific [place], Ur Date Value Ref Range Status 06/05/2019 [...] AM nursing prog on NURSING HNO ID: [id number] Normal 06-08-2019 [place] [facility] Author: Tereas (Rn) [facility]OT[facility] Service: ? ([id number]) Author Type: Registered Nurse Type: Nursing Progress Note Filed: 06/08/2019 7:58 PM Note Text: Nursing Progress Note Patient Name: Jocelyn Loaiza [address] Location: [address] Daily Note:09:30 Patient alert/oriented times three. [...] 17:08 Patient went into afib 113. Feliberto Brim Stretching Machine Operator notified. STAT Ek g . BP 118/64. Patient denies any palpitations or dinariness. Order s given @ this time. Feliberto SCREENER AND BLENDER on uint updated on condition. Tele shows [...] COMPLETE NAME : JOCELYN LOAIZA Normal 05-26 [facility] PID : [id number] (0000 0) : 1945 Gender : Male Race : ORD : [id number] Procedure Date : Jun 08 2019 17:49:32 Edit Date : Jun 17 2019 15:41:01 Diagnosis:Atrial fibrillation with rapid ventricular respons e Left anterior fascicular block Probable left ventricular hypertrophy Minimal ST elevation diffuse leads Borderline prolonged QT interval Abnormal ECG Confirmed by YESSICA MCLAIN MD ([id number]) on 06/17/2019 3:4 1:00 PM Ventricular Rate : 126 BPM Atrial Rate : 175 BPM P-R Interval : 158 ms QRS Duration : 107 ms Q-T Interval : 333 ms QTC Calculation(Bazett) : 483 ms R [place] : -65 degrees T [place] : 69 degrees Test Reason : Arrhythmia Location : [address] : [address] Overread By : YESSICA MCLAIN MD Edited By : YESSICA MCLAIN MD Referred By : , Acquired by : JES SOLORIO case managem on CASE MANAGEM HNO ID: [id number] Normal 06-08-19 [facility] Author: Mirta Newman (Rn)_ TIMOTHY Humphrey ([id number]) Service: Case Management Author Type: Registered Nurse Type: Care Mgt Progress Note Filed: 06/08/2019 9:51 AM Note Text: CARE MANAGEMENT PROGRESS NOTE SERVICE DATE: 06/08/2019 SERVICE TIME: 9:45am LOS: 3 days Needs Prior to Discharge: Home Care Order;To Be Determined Patient transferred to [facility], this TCC met with patient to giuliana maciel discharge planning and home health care choices, in which, neisha main chose, #1 [facility], as well as, [facility]., re ferrals sent, TCC will continue to follow for dc planning as indicated. Addendum: [facility] has accepted, patient updated. SIGNATURE: Mirta Humphrey RN PATIENT NAME: Jocelyn Loaiza DATE: June 08, 2019 TIME: 9:47 AM PAGER/CONTACT #: [phone] xr chest 1v frontal port on 2019-06-07 XR CHEST 1V * * *Final Report* * * Normal 06-07 [facility] FRONTAL PORT DATE OF EXAM: Jun 07 2019 6:58AM Hospital ([id number]) FVX 5376 - XR CHEST 1V FRONTAL PORT / PROCEDURE REASON: Post-operative / post-procedure assessment , asymptomatic * * * * Physician Interpretation * * * * EXAMINATION: CHEST RADIOGRAPH (PORTABLE SINGLE VIEW AP) Exam Date/Time: 06/07/2019 6:58 AM CLINICAL HISTORY: Post-operative / post-procedure assessment , asymptomatic MQ: XCPR_5 Comparison: Chest x-ray 06/06/2019 RESULT: Lines, tubes, and devices: Right-sided Tignall-Gracie catheter. T ip appears to be in the inferior right pulmonary artery. Left-sided rossana st tube. Mediastinal drain. Sternotomy wires. Lungs and pleura: No pneumothorax. Hazy opacities in the ezequiel g bases bilaterally, right greater left. No large pleural effusions. Cardiomediastinal silhouette: Cardiomegaly. Other: . IMPRESSION: 1. Right-sided Tignall-Gracie catheter. Tip appears to be in the inferior right pulmonary artery. 2. Hazy atelectasis/infiltrates in lung bases bilaterally, r ight greater than left. Emergency Department: [facility] Transcribe Date/Time: Jun 07 2019 7:07A Dictated by : GT WATSON MD This examination was interpreted and the report reviewed and electronically signed by: GT WATSON MD on Jun 07 2019 7:09AM EST [id number] therapy nt on 06-07 THERAPY NT HNO ID: [id number] Normal 06-07-2019 [place] Author: Yumiko (Pt) [facility] Service: Physical Therapy ([id number]) Author Type: Physical Therapist Type: Therapy (PT/OT/Speech/Resp) Filed: 06/07/2019 2:38 PM Note Text: Physical Therapy Evaluation SERVICE DATE: 06/07/2019 SERVICE TIME: 1400 to 1423 ROOM: [place] [address] Recommended Discharge Disposition: Home PT Anticipated Discharge [...] structure for reasonably safe discharge home at [facility] Patient Disposition at Start of Session: OOB [...] Diagnosis: Reduced mobility-other Interventions Provided: Evaluation;Gait Training (71120) $ Evaluation-Moderate (60724) Billed Units: 1 unit Gait Training (05450) Treatment Minutes: 8 1 unit Skilled Intervention(s): [...] more Please see discipline specific clinical documentation [facility] for complete details for this therapy evaluation/treatment. SIGNATURE: Yumiko Dailey PT PATIENT NAME: Jocelyn Loaiza DATE: June 07, 2019 TIME: 2:36 PM THERAPY NT HNO ID: [id number] Normal 06-07-2019 [place] Author: Cyrstal (Ot) [facility] Service: Occupational Therapy ([id number]) Author Type: Occupational Therapist Type: Therapy (PT/OT/Speech/Resp) Filed: 06/07/2019 8:57 AM Note Text: Occupational Therapy Evaluation SERVICE DATE: 06/07/2019 SERVICE TIME: 0745 to 0808 ROOM: [place] [address] Recommended Discharge Disposition: Home OT Anticipated Discharge [...] structure for reasonably safe discharge home at [facility]. Patient requires continued monitoring of vital signs [...] of daily living (ADL) Interventions Provided: Evaluation;Self Long-Term Management (42573) $ Evaluation-Moderate (02183) Billed Units: 1 unit Self Long-Term Management (07233) Treatment Minutes: 8 1 unit Skilled Intervention(s): [...] Assist Please see discipline specific clinical documentation [facility] for complete details for this therapy evaluation/treatment. SIGNATURE: Crystal Mello OTR/L PATIENT NAME: Jocelyn ernst DATE: June 07, 2019 TIME: 8:55 AM progress on 2019-05 PROGRESS HNO ID: [id number] Normal 06-07-2019 [place] Author: Cl[facility] Service: Critical Care ([id number]) Author Type: Anesthesiologist Type: Progress Notes Filed: 06/07/2019 5:29 PM Note Text: SURGICAL INTENSIVE CARE UNIT PROGRESS NOTE Jocelyn Loaiza [id number] Admit Date: 06/05/2019 11:22 AM Neckties Painter: Dr. Medina Surgeon: Dr Turner Operation: CABGx3 [...] heart cath performed which was done at [facility]. On heart cath, patient was found [...] ? Disposition and Activity - Transfer to [facility] ? Care discussed with Attending Dr. Medina [...] 76 kg (167 lb 9.6 oz) Admission [facility] ht: Weight: 76 kg (167 lb [...] (TYLENOL) 650 mg ORAL q 4 H ME N - pantoprazole DR 40 mg tab(s) [...] Allen Velazquez MD General Surgery, PGY-2 Pager: [phone] (Gen Surg Pager) June 07, 2019 7:57 AM [facility] STAFF PHYSICIAN NOTE OF PERSONAL INVOLVEMENT IN CARE I have reviewed the progress note obtained and documented by the resident and I personally participated in the olivares components. I have discussed the case and management of the patient's care. The following [facility] ments revise or confirm relevant olivares components of their note. IMPRESSION/PLAN: Patient seen, examined and discussed with resident. Doing well POD 1 s/p CABG x 3. Pain well controlled, off pre ssors, oxygenating well on NC, tolerating diet, glycemic control, O OB to chair, DVT/GI ppx. OK to transfer to [facility]. CARE COORDINATION: Level II. SIGNATURE: Claudio Medina DO PAGER: [phone] DATE of SERVICE: June 07, 2019 TIME of SERVICE: 5:28 PM nursing prog on NURSING HNO ID: [id number] Normal 06-07-2019 [place] [facility] Author: Haleigh (Rn) TIMOTHY Bautista [facility] Service: Nursing (00 000) Author Type: Registered Nurse Type: Nursing Progress Note Filed: 06/07/2019 6:44 PM Note Text: Nursing Progress Note Patient Name: Jocelyn Loaiza Patient [facility]/ Daily Note: 0: pt arrived from SICU, Alert and oriented x3, lungs jose ar diminished on 2L NC, NSR on tele. 500cc nacl bolus infusing. midsternal dressing intact, CT connected to suction, serosang output. Bed alarm on and functioning. Call light within reach This note was completed by: Haleigh Bautista RN NURSING HNO ID: [id number] Normal 06-07-2019 [facility] Author: Brendan KarimiRn) TIMOTHY [facility] Service: Nursing (00 000) Author Type: Registered Nurse Type: Nursing Progress Note Filed: 06/07/2019 11:48 AM Note Text: Nursing Progress Note Patient Name: Jocelyn Loaiza [facility] Note: 0700 Bedside report received from previous shift RN. 0800 Assessment completed and charted. VSS. Neuro intact. No vasoactive medications. SR. Dr. Turner at bedside and updated Pt. On plan of care. See flowsheets. 1200 Reassessment completed and charted. This note was completed by: Brendan López RN NURSING HNO ID: [id number] Normal 06-07-2019 [facility] Author: Kenzie (Rn) TIMOTHY [facility] Service: ? ([id number]) Author Type: Registered Nurse Type: Nursing Progress Note Filed: 06/07/2019 6:53 AM Note Text: Nursing Progress Note Patient Name: Jocelyn Loaiza [facility] Daily Note: 0130: Received report from TIMOTHY Mena. 0200: Patient assessed, see flowsheet. Dr. Della GALLEGOS rounding on patient. 0230: Gave 500 LR Bolus and 2g Magnesium IV. 0400: Patient reassessed, see flowsheet. 0650: Dr. Velazquez reviewed EKG. 0700: Report given to TIMOTHY Cardona. This note was completed by: Kenzie Haque RN magnesium on 06-07 Magnesium [Mass/Vol] 2.0 1.7-2.6 mg/dL Normal 0 [facility] (47081) Comment: Performed By: #### JUNIE, BRIAN, MG1 ####[facility] [place], [place] [id number] [phone] ecg complete on ECG COMPLETE NAME : JOCELYN LOAIZA Normal 05-26 [facility] PID : [id number] (0000 0) : 1945 Gender : Male Race : ORD : [id number] Procedure Date : Jun 07 2019 06:19:23 [...] ms QTC Calculation(Bazett) : 411 ms R [place] : -56 degrees T [place] : 66 degrees Test Reason : POST OP [facility] : [id number] Overread By : RENITA FARIAS M.D. Edited By : RENITA FARIAS M.D. Referred By : , Acquired by : , cbc on 2019-06-07 Erythrocyte distribution 12.7 11.5-15.0 % Normal 06-07 [facility] width (RBC) [Ratio] (41543) Comment: Performed By: #### BRIAN ZAMAN, MG1 ####[place] [id number] [place], [place] [id number] [phone] Hematocrit (Bld) [Volume 38.0 39.0-51.0 % Low 06-07 [facility] (67459) fraction] Comment: Performed By: #### JUNIE, BMP, MG1 ####[facility] [place], [place] [id number] [phone] Hemoglobin (Bld) 12.8 13.0-17.0 g/dL Low 06-07-2019 [facility] [Mass/Vol] (74350) Comment: Performed By: #### CBC, BMP, MG1 ####[address] [id number] [phone] MCH (RBC) [Entitic mass] 30.8 26.0-34.0 pG Normal 06-07 [facility] (01452) Comment: Performed By: #### CBC, BMP, MG1 ####[address] [id number] [phone] MCHC (RBC) [Mass/Vol] 33.7 30.5-36.0 g/dL Normal 06-07-[address] [place] [address] (58526) Comment: Performed By: #### CBC, BMP, MG1 ####[address] [id number] MCV (RBC) [Entitic vol] 91.3 80.0-100.0 fL Normal 06-07 [facility] (21769) Comment: Performed By: #### CBC, BMP, MG1 ####[address] [id number] [phone] Platelet mean volume (Bld) 9.8 9.0-12.7 fL Normal [facility] (99082) [Entitic vol] Comment: Performed By: #### CBC, BMP, MG1 ####[address] [id number] [phone] Platelets (Bld) [#/Vol] 190 150-400 k/uL Normal 2019 [facility] (00501) Comment: Performed By: #### CBC, BMP, MG1 ####[address] [id number] [phone] RBC (Bld) [#/Vol] 4.16 4.20-6.00 m/uL Low 06-07-2019 [facility] (21662) Comment: Performed By: #### CBC, BMP, MG1 ####[address] [id number] [phone] WBC (Bld) [#/Vol] 10.49 3.70-11.00 k/uL Normal 06-07-2019 [facility] (83086) Comment: Performed By: #### CBC, BMP, MG1 ####[facility] [place], [place] [phone] [phone] case mgt init asses on 2019-06-07 CASE MGT INIT HNO ID: [id number] Normal 020 [facility] ASS Author: Sammie (Rn) TIMOTHY [facility]zon ([id number]) Service: Care Management Author Type: Registered Nurse Type: Care Mgt Initial Assessment Filed: 06/07/2019 12:33 PM Note Text: CARE MANAGEMENT: ASSESSMENT AND DISCHARGE PLAN SERVICE DATE: June 07, 2019 SERVICE TIME: 12:31 PM PRIMARY CARE PHYSICIAN: Bella Sanots MD ADMISSION STATUS: Inpatient Needs Prior to Discharge: OT/PT Evaluation;Home Care Order;F acility or Agency Choices MEDICAL: [employer] 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 Last discharge within 30 days: Yes Is this a planned readmission?: Yes Advance Directive: Current Advance Directive: Health Care Power of Cistern Room Working Supervisor;Melina ing Will In Chart: No Adventure Guide Attempted to Assist with AD Completion: Yes [...] Information Primary Emergency Contact: Misti Loaiza Address: [address] [place] [address] Relation: Spouse Supportive Patient Contact:: Yes Contact [...] Completely I feel financially burdened by my jit-fs-vfvfnn expenses for my prescription medication:: 0 - Disagree Completely Risk Score: 0 Patient is categorized as: Low risk < 2 Are you interested in bedside delivery of your medications? Yes Is Patient Psychosocially Complex?: No ASSESSMENT AND PLAN: Medical Needs: Medical Needs: Wound Care - active or potential Psychosocial Needs: Psychosocial Needs: None FREEDOM OF CHOICE EXPLAINED: [place] of Choice Given: Yes Level of Care Discussed: Home Care Financial Disclosure Provided: Yes Financial Disclosure Comments: patient Provider List: Home Care Provider list within the patient's requested geographic area shared with the patient/family: Yes within: Other: See Comment(exact match) of zip code: [address] Quality and resource use metrics shared with [...] 07, 2019 TIME: 12:31 PM PAGER/CONTACT #: [phone] basic metabolic panl on 2019-06-07 Anion gap [Moles/Vol] 11 9-18 mmol/L Normal 06-07-19 20 [facility] (84912) Comment: Performed By: #### CBC, BMP, MG1 ####[place] [id number] [phone] Calcium [Mass/Vol] 8.1 8.5-10.5 mg/dL Low 06-07-2019 [facility] (20688) Comment: Performed By: #### CBC, BMP, MG1 ####[place] [id number] [phone] Chloride [Moles/Vol] 108 98-110 mmol/L Normal 0 [facility] (31170) Comment: Performed By: #### CBC, BMP, MG1 ####[address] [id number] [phone] CO2 [Moles/Vol] 22 23-32 mmol/L Low 06-07-2019 [facility] (57526) Comment: Performed By: #### CBC, BMP, MG1 ####[address] [id number] [phone] Creatinine [Mass/Vol] 0.78 0.70-1.40 mg/dL Normal 06-07-19 20 [facility] (28232) Comment: Performed By: #### CBC, BMP, MG1 ####[address] [id number] [phone] eGFR- Amer. >60 >60 Normal 06-07-2019 [facility] (50599) Comment: Performed By: #### CBC, BMP, MG1 ####[address] [id number] [phone] GFR/1.73 sq M >60 >60 mL/min/{1.73_m2} Normal 0 [facility] predicted among (000 00) non-blacks MDRD (S/P/Bld) [Vol rate/Area] Comment: Performed By: #### CBC, BMP, MG1 ####[address] [id number] [phone] Glucose [Mass/Vol] 151 65-100 mg/dL High 06-07-2019 [facility] (88427) Comment: Performed By: #### CBC, BMP, MG1 ####[address] [id number] [phone] Potassium [Moles/Vol] 4.2 3.5-5.0 mmol/L Normal 06-07-19 [facility] (47386) Comment: Performed By: #### CBC, BMP, MG1 ####[address] [id number] [phone] Sodium [Moles/Vol] 141 135-146 mmol/L Normal 06-07-2019 [facility] (80506) Comment: Performed By: #### CBC, BMP, MG1 ####[address] [phone] [phone] Urea nitrogen [Mass/Vol] 14 10-25 mg/dL Normal 06-07 [facility] (43453) Comment: Performed By: #### CBC, BMP, MG1 ####[address] [id number] [phone] allied health on 14-06-12 [facility] HNO ID: [id number] Normal 020 [facility] Author: Cherelle (Rt) Bryon Stokes ([id number]) Service: Radiology Author Type: Death Surveys Coder Type: [facility] Filed: 06/07/2019 6:58 AM [...] * *Final Report* * * Normal 06-06 [facility] FRONTAL PORT DATE OF EXAM: Jun 06 2019 3:09PM Hospital ([id number]) FVX 5376 - XR CHEST 1V FRONTAL [...] an endotracheal tube, NG tube and a Tignall-Gracie catheter with the Tignall-Gracie catheter tip in the ri ght descending [...] evidence of an acute cardiopul monary process Emergency Department: [facility] Transcribe Date/Time: Jun 06 2019 3:23P Dictated by : PEPE FOWLER MD This examination was interpreted and the report reviewed and electronically signed by: PEPE FOWLER MD on Jun 06 2019 3:25PM EST [id number] therapy nt on 06-06 THERAPY NT HNO ID: [id number] Normal 06-06-2019 [facility] Author: Dafne Sutton RRT ([id number]) Service: Respiratory Therapy Author Type: Registered Resp [...] d intervene as needed. SIGNATURE: Dafne Sutton, TRAVEL TRAILER COMPONENTS ASSEMBLER PATIENT NAME: Jocelyn Hollins DATE: June 06, 2019 TIME: 4:16 PM PAGER/CONTACT #: [phone] ptt,anticoag therapy on 2019-06-06 aPTT Coag (Bld) [Time] 49.8 23.0-32.4 sec High 020 [facility] (73202) Comment: Result Comment: Unfractionat ed Heparin Therapeutic [...] laboratory APTT reagent in use throughout the [facility]. Performed By: #### PTTAC ### #[facility] [place], [place] [phone] protime on PT Coag (PPP) [Time] 1.3 0.9-1.3 s Normal 0 [facility] (81926) Comment: Result Comment: Vitamin K An tagonist (VKA) Therapeutic Range: INR 2 to 3 (Target INR of 2.5) Note: For patients treated w ith VKA drugs, such as warfarin, the [place] [employer] 2012 Guideline recommends a therapeutic INR range of 2 to 3 (target INR of 2.5). This recommendation includes high-risk patients with antiphospholipid syndrome with previous arterial or venous thromboembolism, current-generation mechanical or bioprosthetic aortic heart valve replacement. Note: Patients with bridge mechanic al aortic valve replacement and additional risk factors for thromboembolic events (atrial fibrillation, previous thromboembolism, LV dysfunction, hypercoagulable conditions) or an older generation mecha nical AVR (i.e., ball in-Cage) or any mechanical MVR should have a INR therapeutic range of 2.5 to 3.5 (target INR of 3). Christelle CHAPA, et al. Chest 2012 , 141:7S-47S Ellen STARR, et al. [facility] 20 , 70: 252-289 Performed By: #### CBC, PT, PTT, BMP, MG1 ####[facility] [place], [place] [phone] PT Coag (PPP) [Time] 13.9 9.7-13.0 sec High 0 [facility] (59792) Comment: Performed By: #### CBC, PT, PTT, BMP, MG1 ####[place] [address] [place], [place] [phone] [phone] operative no on OPERATIVE NO HNO ID: [id number] Normal 06-06-19 20 [facility] Author: Nj Turner ([id number]) Service: Cardiac Surgery Author Type: Physician Type: Operative Report Filed: 06/08/2019 10:01 AM Note Text: [facility] - Operative Report JOCELYN LOAIZA : 1945 AGE: 73. SEX: M PATIENT TYPE: I HOSP SVC: CARD LOCATION: [facility] ATTENDING PHYSICIAN: Nj Turner M.D. CSN NUMBER: [id number] DATE OF SURGERY/PROCEDURE: 06/06/2019 INCISION/PROCEDURE START TIME: 9:21 AM INCISION CLOSE/PROCEDURE END TIME: 2:22 PM PREOPERATIVE DIAGNOSIS: Coronary artery disease. POSTOPERATIVE DIAGNOSIS: Coronary artery disease. SURGEON: Nj Turner M.D. SHEET METAL SHOP HELPER: Feliberto uGaman and Liliya Capone. SURGERY/PROCEDURE: Coronary artery bypass grafting x2 with l eft internal mammary artery to the left anterior descending, saphenous ve nous bypasses to the first obtuse marginal and the posterior descending ar nat. ANESTHESIA: General ANESTHESIOLOGIST: Dr. Bebo Barboza. PERFUSION: Effie Fitzpatrick. HISTORY: This 73-year-old patient was admitted to [facility] yesterday with unstable angina and underwent coronary [...] intubation and after right-sided i nternal jugular Tignall-Gracie catheter, and a left-sided radial arterial line [...] I was present throughout the procedure. Nj Turner M.D. [id number] nursing prog on 202 NURSING HNO ID: [id number] Normal 06-06-2019 [facility] Author: Trina (Rn) [facility]OTHY [facility] Service: Nursing ( 000) Author Type: Registered Nurse Type: Nursing Progress Note Filed: 06/07/2019 12:27 AM Note Text: Nursing Progress Note Patient Name: Jocelyn Loaiza [facility] [place] [address] 1450: patient up from OR [...] by: Trina Madrigal RN NURSING HNO ID: [id number] [place] 06-06-2019 [facility] Author: Wendy KarimiRn) TIMOTHY [facility] Service: [...] By: Wendy Rizo RN NURSING HNO ID: [id number] [place] 06-06-2019 [facility] Author: Fernanda Way (Rn) TIMOTHY Guzman [facility] Service: ? ([id number]) Author Type: Registered Nurse Type: Nursing Progress Note Filed: 06/06/2019 6:47 AM Note Text: Nursing Progress Note Patient Name: Jocelyn Loaiza Patient Location: [id number] Daily Note: Assumed care of pt at 4ff5252: Pt alert and rest ing in bed. [...] Magnesium [Mass/Vol] 1.7 1.7-2.6 mg/dL Normal 0 [facility] (25470) Comment: Performed By: #### CBCDIF, B MP, MG1 ####[address] [phone] Magnesium [Mass/Vol] 2.1 1.7-2.6 mg/dL Normal 0 [facility] (61660) Comment: Performed By: #### CBC, PT, PTT, BMP, MG1 ####[address] [phone] [phone] history physical on 2019-06-06 HISTORY HNO ID: [id number] Normal 06-06-2019 [place] PHYSICAL Author: Claudio Storey [facility] Service: Critical Care ([id number]) Author Type: Anesthesiologist Type: HANDP Filed: 06/06/2019 6:27 PM Note Text: Surgical Intensive Care Unit History and Physical Jocelyn Loaiza [id number] Admit Date: 06/05/2019 11:22 AM Neckties Painter: Dr. Medina Surgeon: Dr Turner Operation: CABGx3 [...] heart cath performed which was done at [facility]. On heart cath, patient was found [...] heart cath performed which was done at [facility]. O n heart cath, patient was [...] Laterality Date - COLONOSCOP W/ OR W/O [facility] SPEC 02/15/2019 Colonoscopy - COLONOSCOPY 2006 - [...] Allen Velazquez MD General Surgery, PGY-2 Pager: [phone] (Gen Surg Pager) June 06, 2019 3:20 PM [facility] STAFF PHYSICIAN NOTE OF PERSONAL INVOLVEMENT IN CARE I have reviewed the progress note obtained and documented by the resident and I personally participated in the olivares components. I have discussed the case and management of the patient's care. The following [facility] ments revise or confirm relevant olivares components [...] this patient. SIGNATURE: Claudio Medina DO PAGER: [phone] DATE of SERVICE: June 06, 2019 TIME of SERVICE: 6:26 PM confirm blood type on 2019-06-06 ABO/RH(D) O POSITIVE Normal 06-06-2019 [facility] (74369) Comment: Performed By: #### CONABO ## ##[place] [phone] cbc on 2019-06-06 Erythrocyte distribution 12.5 11.5-15.0 % Normal 06-06 [facility] width (RBC) [Ratio] (17951) Comment: Performed By: #### CBC, PT, PTT, BMP, MG1 ####[place] [phone] [phone] Hematocrit (Bld) [Volume 39.4 39.0-51.0 % Normal 06-06 [facility] fraction] (60547) Comment: Performed By: #### CBC, PT, PTT, BMP, MG1 ####[place] [id number] [phone] Hemoglobin (Bld) 13.1 13.0-17.0 g/dL Normal 06-06-2019 [facility] [Mass/Vol] (41551) Comment: Performed By: #### CBC, PT, PTT, BMP, MG1 ####[place] 7456816 [phone] MCH (RBC) [Entitic mass] 30.5 26.0-34.0 pG Normal 06-06 [facility] (14809) Comment: Performed By: #### CBC, PT, PTT, BMP, MG1 ####[place] [place] [phone] MCHC (RBC) [Mass/Vol] 33.2 30.5-36.0 g/dL Normal 06-06-[address] [place] [address] (32200) Comment: Performed By: #### CBC, PT, PTT, BMP, MG1 ####[address] [phone] MCV (RBC) [Entitic vol] 91.6 80.0-100.0 fL Normal 06-06 [facility] (98297) Comment: Performed By: #### CBC, PT, PTT, BMP, MG1 ####[address] [phone] Platelet mean volume (Bld) 9.4 9.0-12.7 fL Normal [facility] (21577) [Entitic vol] Comment: Performed By: #### CBC, PT, PTT, BMP, MG1 ####[place] [phone] Platelets (Bld) [#/Vol] 166 150-400 k/uL Normal 2019 [facility] (88944) Comment: Performed By: #### CBC, PT, PTT, BMP, MG1 ####[place] [phone] RBC (Bld) [#/Vol] 4.30 4.20-6.00 m/uL Normal 06-06-2019 [facility] (42843) Comment: Performed By: #### CBC, PT, PTT, BMP, MG1 ####[address] [phone] WBC (Bld) [#/Vol] 15.85 3.70-11.00 k/uL High 06-06-2019 [facility] (56344) Comment: Performed By: #### CBC, PT, PTT, BMP, MG1 ####[place] [phone] Erythrocyte distribution 12.6 11.5-15.0 % Normal 06-06 [facility] width (RBC) [Ratio] (08246) Comment: Performed By: #### CBC ####F [place] [phone] Hematocrit (Bld) [Volume 49.1 39.0-51.0 % Normal 06-06 [facility] fraction] (88454) Comment: Performed By: #### CBC ####F [place] [phone] Hemoglobin (Bld) 16.6 13.0-17.0 g/dL Normal 06-06-2019 [facility] [Mass/Vol] (90851) Comment: Performed By: #### CBC ####F [place] [phone] MCH (RBC) [Entitic mass] 31.1 26.0-34.0 pG Normal 06-06 [facility] (99577) Comment: Performed By: #### CBC ####F [place] [phone] MCHC (RBC) [Mass/Vol] 33.8 30.5-36.0 g/dL Normal 06-06-19 20 [facility] (29668) Comment: Performed By: #### CBC ####F [place] [phone] MCV (RBC) [Entitic vol] 91.9 80.0-100.0 fL Normal 06-06 [facility] (66621) Comment: Performed By: #### CBC ####F [address] [phone] Platelet mean volume 10.0 9.0-12.7 fL Normal 0 [facility] (85539) (Bld) [Entitic vol] Comment: Performed By: #### CBC ####F [address] [phone] Platelets (Bld) [#/Vol] 281 150-400 k/uL Normal 2019 [facility] (63505) Comment: Performed By: #### CBC ####F [address] [phone] RBC (Bld) [#/Vol] 5.34 4.20-6.00 m/uL Normal 06-06-2019 [facility] (23045) Comment: Performed By: #### CBC ####F [place] [phone] WBC (Bld) [#/Vol] 7.86 3.70-11.00 k/uL Normal 06-06-2019 [facility] (13363) Comment: Performed By: #### CBC ####F [place] [phone] cbc and differential on 2019-06-06 Abs Baso <0.03 <0.11 Normal 06-06-2019 [facility] (07370) Comment: Performed By: #### CBCDIF, B MP, MG1 ####[place] [phone] Abs [place] 1.03 <0.87 k/uL High 06-06-2019 [facility] (94064) Comment: Performed By: #### CBCDIF, B MP, MG1 ####[place] [phone] Abs Neut 13.90 1.45-7.50 k/uL High 06-06-2019 [facility] (10625) Comment: Performed By: #### CBCDIF, B MP, MG1 ####[place] [phone] Basophils/100 WBC (Bld) 0.1 % Normal 2019 [facility] (21028) Comment: Performed By: #### CBCDIF, B MP, MG1 ####[place] [phone] DTYPE Auto Diff Normal 06-06-2019 [facility] (99992) Comment: Performed By: #### CBCDIF, B MP, MG1 ####[place] [phone] Eosinophils (Bld) [#/Vol] <0.03 <0.46 10*3/uL Normal 05-26 [facility] (67564) Comment: Performed By: #### CBCDIF, B MP, MG1 ####[place] [phone] Eosinophils/100 WBC (Bld) 0.1 % Normal 05-26 [facility] (66090) Comment: Performed By: #### CBCDIF, B MP, MG1 ####[place] [phone] [phone] Erythrocyte distribution 12.3 11.5-15.0 % Normal 06-06 [facility] width (RBC) [Ratio] (86671) Comment: Performed By: #### CBCDIF, B MP, MG1 ####[place] [phone] [phone] Hematocrit (Bld) [Volume 41.3 39.0-51.0 % Normal 06-06 [facility] fraction] (80953) Comment: Performed By: #### CBCDIF, B MP, MG1 ####[place] [address] [phone] Hemoglobin (Bld) 13.8 13.0-17.0 g/dL Normal 06-06-2019 [facility] [Mass/Vol] (74383) Comment: Performed By: #### CBCDIF, B MP, MG1 ####[place] [phone] Lymphocytes (Bld) [#/Vol] 1.06 1.00-4.00 k/uL Normal 05-26 [facility] (61298) Comment: Performed By: #### CBCDIF, B MP, MG1 ####[place] [phone] Lymphocytes/100 WBC (Bld) 6.6 % Normal 05-26 [facility] (48817) Comment: Performed By: #### CBCDIF, B MP, MG1 ####[place] [phone] MCH (RBC) [Entitic mass] 30.9 26.0-34.0 pG Normal 06-06 [facility] (74448) Comment: Performed By: #### CBCDIF, B MP, MG1 ####[place] [phone] MCHC (RBC) [Mass/Vol] 33.4 30.5-36.0 g/dL Normal 06-06-19 [facility] (72575) Comment: Performed By: #### CBCDIF, B MP, MG1 ####[place] [phone] MCV (RBC) [Entitic vol] 92.6 80.0-100.0 fL Normal 06-06 [facility] (30992) Comment: Performed By: #### CBCDIF, B MP, MG1 ####[place] [phone] Monocytes/100 WBC (Bld) 6.4 % Normal 2019 [facility] (98723) Comment: Performed By: #### CBCDIF, B MP, MG1 ####[place] [phone] Neutrophils/100 WBC (Bld) 86.8 % Normal 05-26 [facility] (00725) Comment: Performed By: #### CBCDIF, B MP, MG1 ####[place] [phone] Platelet mean volume (Bld) 9.8 9.0-12.7 fL Normal [facility] (04916) [Entitic vol] Comment: Performed By: #### CBCDIF, B MP, MG1 ####[place] [phone] Platelets (Bld) [#/Vol] 210 150-400 k/uL Normal 2019 [facility] (49554) Comment: Performed By: #### CBCDIF, B MP, MG1 ####[address] [phone] RBC (Bld) [#/Vol] 4.46 4.20-6.00 m/uL Normal 06-06-2019 [facility] (84604) Comment: Performed By: #### CBCDIF, B MP, MG1 ####[address] [phone] WBC (Bld) [#/Vol] 16.02 3.70-11.00 k/uL High 06-06-2019 [facility] (63328) Comment: Performed By: #### CBCDIF, B MP, MG1 ####[address] [phone] basic metabolic panl on 2019-06-06 Anion gap [Moles/Vol] 10 9-18 mmol/L Normal 06-06-19 20 [facility] (07936) Comment: Performed By: #### CBCDIF, B MP, MG1 ####[address] [phone] Calcium [Mass/Vol] 7.9 8.5-10.5 mg/dL Low 06-06-2019 [facility] (62092) Comment: Performed By: #### CBCDIF, B MP, MG1 ####[address] [phone] Chloride [Moles/Vol] 109 98-110 mmol/L Normal 0 [facility] (51337) Comment: Performed By: #### CBCDIF, B MP, MG1 ####[address] [phone] CO2 [Moles/Vol] 21 23-32 mmol/L Low 06-06-2019 [facility] (63667) Comment: Performed By: #### CBCDIF, B MP, MG1 ####[address] [phone] Creatinine [Mass/Vol] 0.74 0.70-1.40 mg/dL Normal 06-06-19 20 [facility] (20461) Comment: Performed By: #### CBCDIF, B MP, MG1 ####[place] [phone] [phone] eGFR- Amer. >60 >60 Normal 06-06-2019 [facility] (37637) Comment: Performed By: #### CBCDIF, B MP, MG1 ####[place] [phone] [phone] GFR/1.73 sq M >60 >60 mL/min/{1.73_m2} Normal 0 [facility] predicted among (000 00) non-blacks MDRD (S/P/Bld) [Vol rate/Area] Comment: Performed By: #### CBCDIF, B MP, MG1 ####[place] [phone] Glucose [Mass/Vol] 164 65-100 mg/dL High 06-06-2019 [facility] (70327) Comment: Performed By: #### CBCDIF, B MP, MG1 ####[place] [phone] [phone] Potassium [Moles/Vol] 4.5 3.5-5.0 mmol/L Normal 06-06-19 [facility] (13150) Comment: Performed By: #### CBCDIF, B MP, MG1 ####[place] [phone] Sodium [Moles/Vol] 140 135-146 mmol/L Normal 06-06-2019 [facility] (27660) Comment: Performed By: #### CBCDIF, B MP, MG1 ####[place] [phone] Urea nitrogen [Mass/Vol] 12 10-25 mg/dL Normal 06-06 [facility] (03152) Comment: Performed By: #### CBCDIF, B MP, MG1 ####[place] [phone] Anion gap [Moles/Vol] 9 9-18 mmol/L Normal 06-06-19 20 [facility] (32692) Comment: Performed By: #### CBC, PT, PTT, BMP, MG1 ####[place] [phone] Calcium [Mass/Vol] 7.5 8.5-10.5 mg/dL Low 06-06-2019 [facility] (04749) Comment: Result Comment: Reviewed Performed By: #### CBC, PT, PTT, BMP, MG1 ####[place] [phone] Chloride [Moles/Vol] 110 98-110 mmol/L Normal 0 [facility] (25597) Comment: Performed By: #### CBC, PT, PTT, BMP, MG1 ####[place] [phone] CO2 [Moles/Vol] 22 23-32 mmol/L Low 06-06-2019 [facility] (64204) Comment: Performed By: #### CBC, PT, PTT, BMP, MG1 ####[place] [phone] Creatinine [Mass/Vol] 0.71 0.70-1.40 mg/dL Normal 06-06-19 20 [facility] (81581) Comment: Performed By: #### CBC, PT, PTT, BMP, MG1 ####[place] [phone] eGFR- Amer. >60 >60 Normal 06-06-2019 [facility] (08965) Comment: Performed By: #### CBC, PT, PTT, BMP, MG1 ####[place] [phone] GFR/1.73 sq M >60 >60 mL/min/{1.73_m2} Normal 0 [facility] predicted among (000 00) non-blacks MDRD (S/P/Bld) [Vol rate/Area] Comment: Performed By: #### CBC, PT, PTT, BMP, MG1 ####[address] [phone] Glucose [Mass/Vol] 110 65-100 mg/dL High 06-06-2019 [facility] (06089) Comment: Performed By: #### CBC, PT, PTT, BMP, MG1 ####[address] [phone] Potassium [Moles/Vol] 4.6 3.5-5.0 mmol/L Normal 06-06-19 [facility] (13369) Comment: Performed By: #### CBC, PT, PTT, BMP, MG1 ####[address] [phone] Sodium [Moles/Vol] 141 135-146 mmol/L Normal 06-06-2019 [facility] (54822) Comment: Performed By: #### CBC, PT, PTT, BMP, MG1 ####[address] [phone] Urea nitrogen [Mass/Vol] 12 10-25 mg/dL Normal 06-06 [facility] (14559) Comment: Performed By: #### CBC, PT, PTT, BMP, MG1 ####[address] [phone] aptt on 2019-06-06 aPTT Coag (Bld) [Time] 30.3 23.0-32.4 sec Normal 020 [facility] (17101) Comment: Result Comment: Unfractionat ed Heparin Therapeutic [...] laboratory APTT reagent in use throughout the [facility]. Performed By: #### CBC, PT, PTT, BMP, MG1 ####[facility] [place], [place] [phone] anes pre-op on 2019 ANES PRE-OP HNO ID: [id number] Normal 0 [facility] Author: Bebo Barboza ([id number]) Service: ? Author Type: Anesthesiologist Type: Anesthesia [...] June 06, 2019 TIME: 7:39 AM CSN: [id number] allied health on 14-06-11 [facility] HNO ID: [id number] Normal [address] [place] [address] Author: Bryon Tompkins (Rt) ([id number]) Service: Radiology Author Type: Death Surveys Coder Type: Allied Health Filed: 06/06/2019 3:23 PM [...] RT Turner June 06, 2019 3:23 PM [facility] HNO ID: [id number] Normal [address] [place] [address] Author: Zee Price (Mgr) ([id number]) Service: Cardiac Rehab Author Type: Educator Type: [facility] Filed: 06/06/2019 6:46 AM Note Text: [...] IV Pole Signature: Trent Dunn Ed Pager: [phone] Date: June 06, 2019 Time: 6:45 AM urinalysis on 06-05 Bacteria LM.HPF Rare Negative Critically abnormal 05-26 [facility] (Urine sed) (02578) [#/Area] Comment: Performed By: #### UA ####[place] [phone] Bilirubin, Urine Negative Negative Normal 06-05-2019 [facility] (57895) Comment: Performed By: #### UA ####[place] [phone] Clarity (U) Clear Clear Normal 06-05-2019 [facility] (45543) Comment: Performed By: #### UA ####[phone] Color (U) Yellow Yellow Normal 06-05-2019 [facility] (54270) Comment: Performed By: #### UA ####[phone] Comments SEE COMMENT Normal 06-05-2019 [facility] (59570) Comment: Result Comment: Microscopic Examination Performed Performed By: #### UA ####[place] [phone] Glucose Ql (U) Negative Negative Normal 06-05-2019 [facility] (99490) Comment: Performed By: #### UA ####[phone] Hemoglobin/Blood,Ur Negative Negative Normal 06-05-2019 [facility] (43282) Comment: Performed By: #### UA ####[phone] Ketones Ql (U) Negative Negative Normal 06-05-2019 [facility] (61236) Comment: Performed By: #### UA ####[phone] Leukest Negative Negative Normal 06-05-2019 [facility] (28094) Comment: Performed By: #### UA ####[place] [phone] Nitrite Ql (U) Negative Negative Normal 06-05-2019 [facility] (25367) Comment: Performed By: #### UA ####[place] [phone] pH (Bld) 7.0 5.0-8.0 Normal 06-05-2019 [facility] (23240) Comment: Performed By: #### UA ####[place] [phone] Protein (U) 30 Negative mg/dL Critically abnormal 06-05-19 20 [facility] [Mass/Vol] (28133) Comment: Performed By: #### UA ####[place] [phone] RBC (U) [#/Vol] 5-10 Negative Critically abnormal 05-26 [facility] (59765) Comment: Performed By: #### UA ####[place] [phone] Specific [place], Ur >1.030 1.005-1.030 High 020 [facility] (15474) Comment: Result Comment: Corrected on 06/05 AT 1845: Previously reported as 1.045 Performed By: #### UA ####[place] [phone] Urobilinogen Qn (U) <2.0 <2.0 Normal 06-05-2019 [facility] (33407) Comment: Performed By: #### UA ####[place] [phone] WBC (Bld) [#/Vol] Rare Negative Critically abnormal [facility] (10716) Comment: Performed By: #### UA ####[place] [phone] type and screen on 2019-06-05 ABO/RH(D) O POSITIVE Normal 06-05-2019 [facility] (82579) Comment: Performed By: #### TSCR #### [place] [phone] staph aureus pcr on 2019-06-05 MRSA PCR Negative for MRSA by PCR. Normal 05-26 [facility] (27475) Comment: Performed By: #### SAPCR ### [address] [phone] d [facility] [address] [place] [phone] S aureus Spec Source Nasal Normal 0 [facility] (66641) Comment: Performed By: #### SAPCR ### [address] [phone] d [facility] [address]cb[address] [place] [phone] Staph aureus PCR Negative for Normal 06-05-2019 [facility] Staphylococcus aureus by (68045) PCR. Comment: Performed By: #### SAPCR ### [address] [phone] d [facility] [address] [place] [phone] ptt,anticoag therapy on 2019-06-05 aPTT Coag (Bld) [Time] 36.8 23.0-32.4 sec High 020 [facility] (51417) Comment: Result Comment: Unfractionat ed Heparin Therapeutic [...] laboratory APTT reagent in use throughout the [facility]. Performed By: #### CBC, PT, PTTAC #### [address] [address] protime on PT Coag (PPP) [Time] 1.1 0.9-1.3 s Normal 0 [facility] (11339) Comment: Result Comment: Vitamin K An tagonist (VKA) Therapeutic Range: INR 2 to 3 (Target INR of 2.5) Note: For patients treated w ith VKA drugs, such as warfarin, the [place] [employer] 2012 Guideline recommends a therapeutic INR range of 2 to 3 (target INR of 2.5). This recommendation includes high-risk patients with antiphospholipid syndrome with previous arterial or venous thromboembolism, current-generation mechanical or bioprosthetic aortic heart valve replacement. Note: Patients with bridge mechanic al aortic valve replacement and additional risk factors for thromboembolic events (atrial fibrillation, previous thromboembolism, LV dysfunction, hypercoagulable conditions) or an older generation mecha nical AVR (i.e., ball in-Cage) or any mechanical MVR should have a INR therapeutic range of 2.5 to 3.5 (target INR of 3). Christelle GH, et al. Chest 2012 , 141:7S-47S Ellen RA et al. [facility] 20 , 70: 252-289 Performed By: #### CBC, PT, PTTAC #### [place] [address] PT Coag (PPP) [Time] 11.8 9.7-13.0 sec Normal 0 [facility] (46926) Comment: Performed By: #### CBC, PT, PTTAC #### [place] [address] prealbumin on 06-05 Prealbumin [Mass/Vol] 32 17-36 mg/dL Normal 06-05-19 20 [facility] (85689) Comment: Performed By: #### BMP, MG1 ####[place] [address] [phone]#### PREALB ####[facility] [address] [place], [place] [phone] operative no on OPERATIVE NO HNO ID: [id number] Normal 06-05-19 20 [facility] Author: Rich Dougherty ([id number]) Service: Cardiovascular Disease Author Type: Physician Type: Operative Report Filed: 06/05/2019 2:20 PM Note Text: MARKET REPORTER PROCEDURE REPORT SERVICE DATE: 06/05/2019 SERVICE TIME: SUPERVISOR PRINTING AND STAMPING: Rich Dougherty MD ATTENDING: Rich Dougherty PRIMARY CARE PHYSICIAN: Bella Santos MD REFERRING PROVIDER: BERMUDIAN STUDY OF HEALTH and AGING SCALE:2=Well CARDIOVASCULAR INSTABILITY:No PRE-PROCEDURE DIAGNOSIS: 1. Angina, Unstable POST PROCEDURE DIAGNOSIS: 1. [place] Coronary Artery Disease in the LAD (Severe), RCA ( DRILLER AND BROACHER) and LCX (DRILLER AND BROACHER) 2. Normal carotid arteries PROCEDURE: 1. Left [...] The patient was taken to the cardiac geoscience laboratory technician where the entr y site was prepped [...] PM nursing prog on NURSING HNO ID: [id number] Normal 06-05-2019 [employer] [employer] Author: Trish KarimiRn) [facility] Service: ? ([id number]) Author Type: Registered Nurse Type: Nursing Progress Note Filed: 06/05/2019 8:43 PM Note Text: Nursing Progress Note Patient Name: Jocelyn Loaiza Patient Location: [id number]-JFCM-1H428-0 {shift note Hibiclens bath completed,Heparin infusion stared as ordered. This note was completed by: Trish Min RN NURSING HNO ID: [id number] Normal 06-05-2019 [employer] Author: Trish KarimiRn) [facility] Service: ? ([id number]) Author Type: Registered Nurse Type: Nursing Progress Note Filed: 06/05/2019 5:18 PM Note Text: Nursing Progress Note Patient Name: Jocelyn Loaiza Patient Location: [id number]-NSLK-2Z664-0 {shift note Pt taking dinner well,see NPR.No c/o offerred.R radial site WNL.Call light in reach.Family at bedside. This note was completed by: Trish Min RN NURSING HNO ID: [id number] [place] 06-05-2019 [employer] Author: Keya KarimiRn) [facility] Service: Nursing () Author Type: Registered Nurse Type: Nursing Progress Note Filed: 06/05/2019 3:15 PM Note Text: Nursing Progress Note Patient Name: Jocelyn Loaiza Patient Location: [id number]-[id number]-[id number] Pt ordering meal. Denies pain. Call pinto ion reach. Report g sage to TIMOTHY Chambers This note was completed by: Keya Gant RN NURSING HNO ID: [id number] [place] 06-05-2019 [employer] Author: Keya KarimiRn) [facility] Service: Nursing () Author Type: Registered Nurse Type: Nursing Progress Note Filed: 06/05/2019 3:12 PM Note Text: Admission/Transfer Note PATIENT NAME: Jocelyn Loaiza 1445: Patient admitted from geoscience laboratory technician via bed in stable condi tion. SB [...] by: Keya Gant RN NURSING HNO ID: [id number] Normal 06-05-2019 [place] PROG Author: Anne Marie (Rn) TIMOT[facility]ila [facility] Service: Nursing (00 000) Author Type: Registered Nurse Type: Nursing Progress Note Filed: 06/05/2019 11:59 AM Note Text: 1158 Pre-op completed. IV inserted; current labs on chart. E KG and prep done. Family to bedside. magnesium on 06-05 Magnesium [Mass/Vol] 1.8 1.7-2.6 mg/dL Normal 0 [facility] (52001) Comment: Performed By: #### BMP, MG1 ####[facility] [place], [place] [phone]#### PREALB ####[facility] [address] [place], [place] [phone] history physical on 2019-06-05 HISTORY PHYSICAL HNO ID: [id number] Normal 05-26 [facility] Author: Robina Ashford ([id number]) Service: Cardiovascular Disease Author Type: Physician Dough Raiser Type: HANDP Filed: 06/05/2019 12:31 PM Note [...] patient having unspecified chest pain and his medical manager advised to have cardiac cath. Planned Procedure: [...] be found in the Electronic Medical Record [facility] . SIGNATURE: Robina Ashford PA-C PATIENT NAME: Jocelyn ernst DATE: June 05, 2019 TIME: 12:28 PM PAGER: ecg complete on ECG COMPLETE NAME : JOCELYN LOAIZA 05-26 [facility] PID : [id number] (0000 0) : 1945 Gender : Male Race : ORD : [id number] Procedure Date : Jun 05 2019 11:43:50 [...] ms QTC Calculation(Bazett) : 423 ms P [place] : 66 degrees R [place] : -49 degrees T [place] : 10 degrees Test Reason : Pre OP Location : 400 : FVEKG 26 Overread By : RENITA FARIAS M.D. Edited By : RENITA FARIAS M.D. Referred By : , Acquired by : TEJA, consult on CONSULT HNO ID: [id number] Normal 06-05-2019 [facility] Author: Nj Turner ([id number]) Service: Cardiac Surgery Author Type: Physician Type: Consults Filed: 06/05/2019 5:07 PM Note Text: Cardiac Surgery CONSULT SERVICE DATE: 06/05/2019 SERVICE TIME: 3:01 PM I have reviewed the documentation obtained and documented by the Physician Dough Raiser and have reviewed and updated the problem [...] HARLEY on CPAP who presented to [facility] complaining of worsening dy spnea on [...] Laterality Date - COLONOSCOP W/ OR W/O [facility] SPEC 02/15/2019 Colonoscopy - COLONOSCOPY 2006 - [...] Erythrocyte distribution 12.3 11.5-15.0 % Normal 06-05 [facility] width (RBC) [Ratio] (43823) Comment: Performed By: #### CBC, PT, PTTAC #### [place] [phone] Hematocrit (Bld) [Volume 49.5 39.0-51.0 % Normal 06-05 [facility] fraction] (39261) Comment: Performed By: #### CBC, PT, PTTAC #### [place] [phone] Hemoglobin (Bld) 16.6 13.0-17.0 g/dL Normal 06-05-2019 [facility] [Mass/Vol] (13752) Comment: Performed By: #### CBC, PT, PTTAC #### [phone] MCH (RBC) [Entitic mass] 31.3 26.0-34.0 pG Normal 06-05 [facility] (51715) Comment: Performed By: #### CBC, PT, PTTAC #### [place] [phone] MCHC (RBC) [Mass/Vol] 33.5 30.5-36.0 g/dL Normal 06-05-[address] [place] [address] (07651) Comment: Performed By: #### CBC, PT, PTTAC #### [place] [phone] MCV (RBC) [Entitic vol] 93.4 80.0-100.0 fL Normal 06-05 [facility] (40429) Comment: Performed By: #### CBC, PT, PTTAC #### [place] [address] Platelet mean volume 10.0 9.0-12.7 fL Normal 0 [facility] (44349) (Bld) [Entitic vol] Comment: Performed By: #### CBC, PT, PTTAC #### [place] [address] Platelets (Bld) [#/Vol] 304 150-400 k/uL Normal 2019 [facility] (10889) Comment: Performed By: #### CBC, PT, PTTAC #### [place] [address] RBC (Bld) [#/Vol] 5.30 4.20-6.00 m/uL Normal 06-05-2019 F [facility] (17941) Comment: Performed By: #### CBC, PT, PTTAC #### [place] [phone] WBC (Bld) [#/Vol] 7.10 3.70-11.00 k/uL Normal 06-05-2019 [facility] (85635) Comment: Performed By: #### CBC, PT, PTTAC #### [place] [address] basic metabolic panl on 2019-06-05 Anion gap [Moles/Vol] 10 9-18 mmol/L Normal 06-05-19 20 [facility] (91505) Comment: Performed By: #### BMP, MG1 ####[place] [phone]#### PREALB ####[facility] [address] [place], [place] [phone] Calcium [Mass/Vol] 9.5 8.5-10.5 mg/dL Normal 06-05-2019 [facility] (54658) Comment: Performed By: #### BMP, MG1 ####[place] [phone]#### PREALB ####[place] [address] [place] [address] [place] [phone] Chloride [Moles/Vol] 105 98-110 mmol/L Normal 0 [facility] (05003) Comment: Performed By: #### BMP, MG1 ####[phone]#### PREALB ####[place] [address] [address] [place] [phone] CO2 [Moles/Vol] 24 23-32 mmol/L Normal 06-05-2019 [facility] (95757) Comment: Performed By: #### BRIAN, MG1 ####[phone]#### PREALB ####[place] [address] [address] [place] [phone] Creatinine [Mass/Vol] 0.77 0.70-1.40 mg/dL Normal 06-05-19 20 [facility] ([id number]) Comment: Performed By: #### BRIAN, MG1 ####[phone]#### PREALB ####[place] [address] [address] [place] [phone] eGFR- Amer. >60 >60 Normal 06-05-2019 [facility] ([id number]) Comment: Performed By: #### BMP, MG1 ####[place] [phone]#### PREALB ####[place] [phone] [address] [place] [phone] GFR/1.73 sq M >60 >60 mL/min/{1.73_m2} Normal 0 [facility] predicted among (000 00) non-blacks MDRD (S/P/Bld) [Vol rate/Area] Comment: Performed By: #### BMP, MG1 ####[place] [phone]#### PREALB ####[place] [address] [place] [phone] Glucose [Mass/Vol] 112 65-100 mg/dL High 06-05-2019 [facility] (18325) Comment: Performed By: #### BMP, MG1 ####[place] 420789-88[address]#### PREALB ####[place] [address] [place] [phone] Potassium [Moles/Vol] 4.2 3.5-5.0 mmol/L Normal 06-05-19 [facility] (69002) Comment: Performed By: #### BMP, MG1 ####[place] 420780-9862#### PREALB ####[place] [address] [place] [phone] Sodium [Moles/Vol] 139 135-146 mmol/L Normal 06-05-2019 [facility] (72791) Comment: Performed By: #### BMP, MG1 ####[place] [phone]#### PREALB ####[place] [address] [place] [phone] Urea nitrogen [Mass/Vol] 19 10-25 mg/dL Normal 06-05 [facility] (81067) Comment: Performed By: #### BMP, MG1 ####[place] [phone]#### PREALB ####[place] [address] [place] [phone] arterial blood gas (for west use only) on 2019-06-05 Base Excess 1 mmol/L Normal 06-05-2019 [facility] (48212) Comment: Result Comment: -3 to 3 Performed By: #### ABGR #### [address] [phone] CO2 [Moles/Vol] 25 22.0-28.0 mmol/L Normal 06-05-2019 [facility] (67720) Comment: Performed By: #### ABGR #### [address] [phone] Device Room Air Normal 06-05-2019 [facility] (93134) Comment: Performed By: #### ABGR #### [address] [phone] Drawsite Right Brachial Normal 06-05-2019 [facility] (34544) Comment: Performed By: #### ABGR #### [place] [phone] HCO3 (Bld) [Moles/Vol] 24 22-26 mmol/L Normal 020 [facility] (09220) Comment: Performed By: #### ABGR #### [address] [phone] O2 Administered 21.0 Normal 06-05-2019 [facility] (02895) Comment: Performed By: #### ABGR #### [address] [phone] Oxygen (Bld) [Partial 97 90-98 % Normal 06-05-19 [facility] (60256) pressure] Comment: Performed By: #### ABGR #### [address] [phone] Oxygen (Bld) [Partial 93 80-100 mm Hg Normal 06-05-19 20 [facility] (08646) pressure] Comment: Performed By: #### ABGR #### [address] [phone] pCO2 36 35-48 mm Hg Normal 06-05-2019 [facility] (55299) Comment: Performed By: #### ABGR #### [facility] [place], [place] [phone] pH (Bld) 7.44 7.35-7.45 [pH] Normal 06-05-2019 [facility] (38796) Comment: Performed By: #### ABGR #### [facility] [place], [place] [phone] progress on 2019-05 PROGRESS HNO ID: [id number] Normal 06-04-2019 [facility] Author: Jenn Antoine RN ([id number]) Service: ? Author Type: ? Type: Progress Notes Filed: 06/05/2019 2:53 PM Note Text: Patient returned call. TCM questions answered. Patient is sc heduled for heart cath tomorrow @ [facility] and will call back for ap pointment after that. He states they did not prescribe any new medicat ions but in review of [place] discharge note, patient was prescribed NTG SL. PROGRESS HNO ID: [id number] Normal 06-04-2019 [facility] Author: Angel Burt LPN ([id number]) Service: ? Author Type: ? Type: Progress Notes Filed: 06/05/2019 2:53 PM Note Text: Left message for pt to call office. Triage- if pt returns call, please f2 through questions in T CM note started below and make appt for pt to see PCP/SCREENER AND BLENDER care team. Jemima Burt LPN PROGRESS HNO ID: [id number] Normal 06-04-2019 [facility] Author: Jenn Antoine RN ([id number]) Service: ? Author Type: ? Type: Progress Notes Filed: 06/05/2019 2:53 PM Note Text: TRANSITION CARE MANAGEMENT (TCM) INITIAL CONTACT Director Speech Language Outreach Provider Action/FYI: Patient scheduled for heart cath on 06/05/19. Patient says ajith e will make TCM appointment after that. Initial contact with patient post discharge, spoke to yuko shannon 06/04/19 @ 04:20 PM. Patient identified by name and . TRANSITION CARE MANAGEMENT INITIAL OUTREACH DOCUMENTATION: No flowsheet data found. SUMMARY: -Pt discharged from [place] on 06/02/2019. -Admitted for: Chest pain, SOB Do you have a hospital follow up appointment with your PCP? Appointment on with No appointment made. Patient states he is having a heart cat h tomorrow @ [facility] and will call to schedule after [...] Ye Medical records from recent hospitalization: [facility] hosp on 2019-06-04 HOSP Patient:Jocelyn Loaiza Normal 2019 [facility] ) Height:5' 7(1.702 m) Weight:167 lb [...] 49.1 % 06/06/2019 51.0 39.0 Progress Notes ([facility]): Jenn Antoine RN 06/05/2019 2:53 PM Signed TRANSITION CARE MANAGEMENT (TCM) INITIAL CONTACT Director Speech Language Outreach Provider Action/FYI: Patient scheduled for heart cath on 06/05/19. Patient says he will make TCM appointment after that. Initial contact with patient post discha ximena, spoke to patient 06/04/19 @ 04:20 PM. Patient identified by name and . TRANSITION CARE MANAGEMENT INITIAL OUTREACH DOCUMENTATION: No flowsheet data found. SUMMARY: -Pt discharged from [facility] on 06/02/2019. -Admitted for: Chest pain, SOB Do you have a hospital follow up appointment with your PCP? Appointment on with No appointment made. Patient states he is having a hea rt cath tomorrow @ [facility] and will call to schedule after [...] Ye Medical records from recent hospitalization: [facility] Previous Version Angel Burt LPN 06/05/2019 2:53 PM Signed Left message for pt to call office. Triage- if pt returns call, please f2 through questions in TCM note started below and make appt for pt to see PCP/SCREENER AND BLENDER care team. JESSY Garcia RN 06/05/2019 2:53 PM Signed Patient returned call. TCM questions answered. Neisha main is scheduled for heart cath tomorrow @ [facility] and will ca ll back for appointment after that. He states they did not prescribe any new medications but in rev iew of [facility] discharge note, patient was prescribed NTG SL. Progress Notes ([facility]): Estella Ragland Pss 05/16/2019 1:35 PM Signed Contacted patient to schedule with Cardiology at [facility] as requested and they were booking out into June. I scheduled him in [place] at the end of May but he is having a procedure done with Dr Pro ritter to break up kidney stones on 05/25 and wanted to know if he should see Car diology sooner. Please advise and call patient at [phone]. Thank you Estella Ragland Pss Bella Santos MD 05/16/2019 3:13 PM Signed I think he is OK to go ahead and get the procedure done with Dr Shaffer, and see the Extruding Department Supervisor after that. MD Kimi Xiao Cma 05/16/2019 3:22 PM Signed TC to patient. Advised of below message and he verbalized un derstanding. Kimi Gold Cma cnptoutreach on CNPTOUTREACH Patient Outreach (FAMPWS) Normal 0 06-04-2019 [facility] JOCELYN LOAIZA ([id number]) 1945 [facility] Date Time Provider Department ([id number]) 06/04/19 ANGEL BURT (JESSY) FAMPWS During your visit today, we recorded the following informati on about you: Jenn Antoine RN 06/05/2019 2:53 PM Signed TRANSITION CARE MANAGEMENT (TCM) INITIAL CONTACT Director Speech Language Outreach Provider Action/FYI: Patient scheduled for heart cath on 06/05/19. Patient says he will make TCM appointment after that. Initial contact with patient post dischissa bueno, spoke to patient 06/04/19 @ 04:20 PM. Patient identified by name and . TRANSITION CARE MANAGEMENT INITIAL OUTREACH DOCUMENTATION: No flowsheet data found. SUMMARY: -Pt discharged from [facility] on 06/02/2019. -Admitted for: Chest pain, SOB Do you have a hospital follow up appointment with your PCP? Appointment on with No appointment made. Patient states he is having a hea rt cath tomorrow @ [facility] and will call to schedule after [...] Ye Medical records from recent hospitalization: [facility] Angel Burt LPN 06/05/2019 2:53 PM Signed Left message for pt to call office. Triage- if pt returns call, please f2 through questions in TCM note started below and make appt for pt to see PCP/SCREENER AND BLENDER care team. JESSY Garcia RN 06/05/2019 2:53 PM Signed Patient returned call. TCM questions answered. Neisha main is scheduled for heart cath tomorrow @ [facility] and will call back for appoin tment after that. He states they did not prescribe any new medications b ut in review of [place] discharge note, patient was prescribed NTG SL. Allergies As of Date: 06/04/2019 (No Known Allergies) Date Reviewed: 06/02/2019 Reviewed by: Bia KarimiRn) TIMOTHY Rehman - Fully Assessed Reason for Visit: Transition Of Care [2318] Cmt: DC 06/02/2019 [facility] Prescriptions as of 06/04/2019 Sig: NITROGLYCERIN 0.4 [...] T.cardiac <0.010 0.000-0.029 ug/L Normal [address] [facility] [Mass/Vol] (95809) Comment: Performed By: #### MARY KATE ####[facility] [address] [place] [address] Troponin T.cardiac <0.010 0.000-0.029 ug/L Normal [address] [facility] [Mass/Vol] (98664) Comment: Performed By: #### MARY KATE ####[facility] [address] [place] [address] nursing prog on NURSING PROG HNO ID: [id number] Normal 06-02-[address] [facility] (01376) Author: Bia (Rn) TIMOTHY Rehman Service: ? Author Type: Registered Nurse Type: Nursing Progress Note Filed: 06/02/2019 12:01 PM Note Text: Nursing Progress Note Topic of Note: Daily Note Jocelyn Josse [id number]: Assumed care of patient. Patient currently denies [...] [Mass/Vol] 1.9 1.7-2.3 mg/dL Normal [address] [facility] (92848) Comment: Performed By: #### BMP, MG1, CBC ####[facility] Gqegjw[address]zu[address]66 [place] [address] 0 lipid panel, basic on 2019-06-02 Cholesterol [Mass/Vol] 153 <200 mg/dL Normal [address] [facility] (01594) Comment: Performed By: #### HBA1C ### #[facility] Dhqnbfdcnktz[address] [place] [phone]#### LIPB ####[facility] Vik[address] [place], [place] [address]t on [place] [address] Cholesterol in HDL [Mass/Vol] 32 >39 mg/dL Low 06-02-[address] [facility] (73617) Comment: Performed By: #### HBA1C ### #[facility] Fowzhjvmkyrl[address] Ave[place] [phone]#### LIPB ####[facility] Aqmamvogsc1923 [facility] [place] [address] Cholesterol in LDL [Mass/Vol] 92 <100 mg/dL Normal 06-02-[address] [facility] (43844) Comment: Performed By: #### HBA1C ### #[facility] Utxeevblnvlt3571 [address] [place] [phone]#### LIPB ####[facility] Yrmtrswyrm2202 [facility] on [place] [address] Fasting Time Unknown Normal 06-02-[address] [facility] (41650) Comment: Performed By: #### HBA1C ### #[facility] Jllanxdfswnq9526 [address] [phone]#### LIPB ####[facility] Bvtzwslkix2252 [facility] [phone] LDL:HDL Ratio 2.88 <2.54 High 06-02-2019 [facility] (86377) Comment: Result Comment: Reference: 1. National Cholesterol Educ ation Program ATP III Guideline At-A-Glance Quick Desk Reference: National Heart, Lung, and Blood Forest. National Institutes of Health. 2001: NIH Publication No. 01-3305. 2. An International Atherosc lerosis Society position paper: global recommendations for the management of dyslipidemia: executive summary, Atherosclerosis. 2014: 232(2):410-413. Performed By: #### HBA1C ### #[facility] [address]pwcql[address]qexmp[address] [phone]#### LIPB ####[facility] Afoiucywzs[address] [place] [phone] Non HDL Cholesterol 121 <130 mg/dL Normal 06-02-[address] [facility] (16665) Comment: Performed By: #### HBA1C ### #[facility] Znknsmkdxmhf7075 [address] AveCDaisy [place] [phone]#### LIPB ####[facility] [address]kbwrpfr[address] [place] [phone] TC:HDL Ratio 4.78 <5.10 Normal 06-02-[address] [facility] (22747) Comment: Performed By: #### HBA1C ### #[facility] [address]gqxqaqzzrmj[address] [phone]#### LIPB ####[facility] [address]rm[address] [place] [phone] Triglyceride [Mass/Vol] 144 <150 mg/dL Normal [address] [facility] (64628) Comment: Performed By: #### HBA1C ### #[facility] Blewkzszlkdn8322 [place] Ave[place] [address]- [phone]#### LIPB ####[facility] Umdhlctsdb[address] [place] [phone] VLDL Cholesterol 29 <30 mg/dL Normal 06-02-2019 [facility] (69399) Comment: Performed By: #### HBA1C ### [address] [phone]#### LIPB ####[address] on [phone] hemoglobin a1c on HbA1c (Bld) [Mass fraction] 5.2 4.3-5.6 % Normal [facility] (54059) Comment: Result Comment: [place] Claudia betes Association guidelines indicate that patients with HgbA1c in the range 5.7-6.4% are at increased risk for development of diabetes, and intervention by lifestyle modification may be beneficial. HgbA1c greater o r equal to 6.5% is considered diagnostic of diabetes. Performed By: #### HBA1C ### [address] [phone]#### LIPB ####[address] on [phone] HbA1c (Bld) [Mass fraction] 103 mg/dL Normal [facility] (27235) Comment: Result Comment: eAG: (Estima ernie average glucose) is a calculated value from HgbA1c and is appeals representative of the average blood glucose level in the last 2-3 month period. Performed By: #### HBA1C ### [address] [phone]#### LIPB ####[address] on [phone] consult on CONSULT HNO ID: [id number] Normal 06-02-[address] [facility] Author: Jerome Neumann ([id number]) Service: Cardiovascular Disease Author Type: Physician Type: [...] another stress test next week. No prior NC,C VA,CHF.COPD or thyroid problems. Never had cardiac cath. CT chest showed no PE but extensive calcification of coronaries. He is fairly active a nd does exercise three to four times a week.He had a normal echo. ASSESSMENT AND PLAN: New onset exertional dyspnea : Ruled out for NC Extensive calcification of coronaries Hypertension Hyperlipidemia Asymptomatic sinus bradycardia Would plan for left heart cath next week Explained about the procedure and he agrees to get it done a [facility] OK to discharge him home from cardiac [...] Laterality Date - COLONOSCOP W/ OR W/O [facility] SPEC 02/15/2019 Colonoscopy - COLONOSCOPY 2006 - [...] SIGNATURE: Jerome Neumann MD CELL TEXT : [phone] DATE: June 02, 2019 TIME: 12:45 PM cnco on 2019-06-02 CNCO Letter Text Normal 06-02-[address] [facility] (44950) cbc on 2019-06-02 Erythrocyte distribution 12.6 11.5-15.0 % Normal 06-[address] [facility] (15114) width (RBC) [Ratio] Comment: Performed By: #### BMP, MG1, CBC ####[facility] [address] [place] [address] 0 Hematocrit (Bld) [Volume 48.5 39.0-51.0 % Normal 06-[address] [facility] (91022) fraction] Comment: Performed By: #### BRIAN MG1, CBC ####[facility] [address] [place] [address] 0 Hemoglobin (Bld) 16.1 13.0-17.0 g/dL Normal 06-02-2019 [facility] [Mass/Vol] (99865) Comment: Performed By: #### BRIAN MG1, CBC ####[place] [address] 0 MCH (RBC) [Entitic mass] 30.5 26.0-34.0 pG Normal 06-[address] [facility] (59889) Comment: Performed By: #### BRIAN MG1, CBC ####[place] [address] 0 MCHC (RBC) [Mass/Vol] 33.2 30.5-36.0 g/dL Normal 06-02-[address] [place] [address] (03628) Comment: Performed By: #### BRIAN MG1, CBC ####[place] [address] 0 MCV (RBC) [Entitic vol] 91.9 80.0-100.0 fL Normal 06-[address] [facility] (00574) Comment: Performed By: #### BRIAN MG1, CBC ####[place] [address] 0 Platelet mean volume (Bld) 9.9 9.0-12.7 fL Normal [facility] (98664) [Entitic vol] Comment: Performed By: #### BRIAN MG1, CBC ####[place] [address] 0 Platelets (Bld) [#/Vol] 288 150-400 k/uL Normal [address] [facility] (76841) Comment: Performed By: #### BRIAN MG1, CBC ####[facility] [address] [place] [address] 0 RBC (Bld) [#/Vol] 5.28 4.20-6.00 m/uL Normal 06-02-2019 [facility] (16966) Comment: Performed By: #### BMP, MG1, CBC ####[facility] Gcmwppsgys7823 [phone] WBC (Bld) [#/Vol] 7.97 3.70-11.00 k/uL Normal 06-02-[address] [facility] (46771) Comment: Performed By: #### BMP, MG1, CBC ####[facility] Czjcuiiosm4601 [phone] case mgt init asses on 2019-06-02 CASE MGT INIT HNO ID: [id number] Normal 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 Last discharge within 30 days: No Advance Directive: Current Advance Directive: None Adventure Guide Attempted to Assist with AD Completion: Yes [...] Patient Currently Receive Any Community Services or [facility] e Care?: None Equipment Prior to Admission: None SOCIAL: Living Arrangements: Home Financial Resources: RetiredPrimary Contact: Extended Emerge ncy Contact Information Primary Emergency Contact: Misti Loaiza Address: [address] [place] [address] Relation: Spouse Supportive Patient Contact:: Yes Contact [...] Completely I feel financially burdened by my msu-pr-nalarf expenses for my prescription medication:: 0 - Diagree Completely Risk Score: 0 Patient is categorized as: Low risk < 2 Are you interested in bedside delivery of your medications? No Is Patient Psychosocially Complex?: No ASSESSMENT AND PLAN: Medical Needs: Medical Needs: Two or more chronic diseases Psychosocial Needs: Psychosocial Needs: None FREEDOM OF CHOICE EXPLAINED: [place] of Choice Given: No Reason Not Given: No placements necessary POTENTIAL TRANSITION PLANS Home EMR reviewed. Patient assigned obs bed for chest pain. CM me t with patient at bedside. 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 Anti cipate no skilled needs at DC. CM assigned will follow. SIGNATURE: Gail Reynolds RN PATIENT NAME: Jocelyn Loaiza DATE: June 02, 2019 TIME: 12:09 PM PAGER/CONTACT #: [phone] case managem on CASE MANAGEM HNO ID: [id number] Normal 06-02-[address] [place] [address] Author: Gail Layton) TIMOTHY Reynolds ([id number]) Service: Nursing Author Type: Registered Nurse Type: [...] Primary Care Physician Name/Phone: Bella Santos MD, Summary of care sent to PCP. TRANSPORTATION [...] 02, 2019 TIME: 12:12 PM PAGER/CONTACT #: [phone] basic metabolic panl on 2019-06-02 Anion gap [Moles/Vol] 16 9-18 mmol/L Normal 06-02-[address] [facility] (68888) Comment: Performed By: #### BRIAN, MG1, CBC ####[facility] [address]xtd5339 [place] [phone] 0 Calcium [Mass/Vol] 9.2 8.5-10.2 mg/dL Normal 06-02-[address] [facility] (76496) Comment: Performed By: #### BRIAN MG1, CBC ####[facility] [address]wvyanuyqw1609 [place] [phone] 0 Chloride [Moles/Vol] 106 97-105 mmol/L High [address] [facility] (75352) Comment: Performed By: #### BRIAN, MG1, CBC ####[facility] [address]gzbabhvjm7022 [place] [address] 0 CO2 [Moles/Vol] 21 22-30 mmol/L Low 06-02-2019 [facility] (66833) Comment: Performed By: #### BRIAN MG1, CBC ####[facility] Amaypcorel6555 [place] [address] 0 Creatinine [Mass/Vol] 0.87 0.73-1.22 mg/dL Normal 06-02-[address] [facility] (71751) Comment: Performed By: #### BRIAN MG1, CBC ####[facility] Apskpqlzgg2673 [place] [address] 0 eGFR- Amer. >60 Normal 06-02-[address] [facility] (99289) Comment: Performed By: #### BRIAN MG1, CBC ####[facility] Ojczwyhlbx5613 [place] [address] 0 GFR/1.73 sq M predicted >60 mL/min/{1.73_m2} Normal 06-02-[address] [facility] among non-blacks MDRD (84378) (S/P/Bld) [Vol rate/Area] Comment: Result Comment: eGFR [...] Performed By: #### BRIAN, MG1, CBC ####[facility] [address]fdhatk6391 [place] [address] 0 Glucose [Mass/Vol] 97 74-99 mg/dL Normal 06-02-[address] [facility] (47482) Comment: Result Comment: The [place] Diabetes Association (ADA) provides guidance for cutoff [...] for diagnosis of diabetes. Reference: Standards of [facility] Care in Diabetes 2016, [place] Diabetes Association. Diabetes Care. 2016.39(Suppl 1). Performed By: #### BRIAN MG1, CBC ####[facility] Lbnerynedz6932 [place] [address] 0 Potassium [Moles/Vol] 4.2 3.7-5.1 mmol/L Normal 06-02-[address] [facility] (68893) Comment: Performed By: #### BRIAN MG1, CBC ####[facility] [address] [place] [address] 0 Sodium [Moles/Vol] 143 136-144 mmol/L Normal 06-02-[address] [facility] (22835) Comment: Performed By: #### BMP, MG1, CBC ####[facility] [address] [place] [address] 0 Urea nitrogen [Mass/Vol] 23 9-24 mg/dL Normal 06-[address] [facility] (95077) Comment: Performed By: #### BMP, MG1, CBC ####[facility] [address] [place] [address] 0 troponin t on 06-01 Troponin T.cardiac <0.010 0.000-0.029 ug/L Normal [address] [facility] [Mass/Vol] (99988) Comment: Performed By: #### MARY KATE ####[facility] V[address] [place], [place] [phone] nursing prog on NURSING HNO ID: [id number] Normal 06-01-2019 [facility] PROG Author: Racheal (Rn) TIMOTHY [facility] Service: Nursing (00 000) Author Type: Registered Nurse Type: Nursing Progress Note Filed: 06/02/2019 6:12 AM Note Text: Nursing Progress Note Patient Name: Jocelyn Loaiza Patient Location: [place] [address]/[id number]- Daily Note: 194 lying in semi fowlers [...] was completed by: Racheal Nolasco RN NURSING [facility] ID: [id number] Normal 06-01-2019 [facility] Author: Patty (Rn) TIMOTHY [facility] Service: Nursing (00 000) Author Type: Registered Nurse Type: Nursing Progress Note Filed: 06/01/2019 6:26 PM Note Text: Nursing Progress Note Patient Name: Jocelyn Loaiza Patient Location: [facility]/[id number]- Daily Note:1432 - pt admitted to the [...] [Mass/Vol] 1.8 1.7-2.3 mg/dL Normal [address] [facility] (74281) Comment: Performed By: #### MG1, CBC, BMP ####[facility] [address]ufagxksx1477 [place] [phone] 0 history physical on 2019-06-01 HISTORY HNO ID: [id number] Normal 06-01-2019 [place] [facility]: [facility] Service[facility] ([id number]) Author Type: Nurse Practitioner Type: HANDP Filed: [...] AND WEEKEND COVERAGE: Nights: Please contact pager [phone]. SUBJECTIVE Chief Complaint: Chest pain and shortness of breath HPI: 73 year old gentleman with PMHx significant for HTN, HLD and HARLEY who presented to [facility] for evaluation of in termittent chest pain [...] is scheduled to s ee his primary medical manager at the end of the month and [...] was given ASA an d transferred to [place] for rule out. 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 (04873) width (RBC) [Ratio] Comment: Performed By: #### MG1, CBC, BMP ####[facility] [address] [place], [place] [phone] 0 Hematocrit (Bld) [Volume 48.8 39.0-51.0 % Normal 06-[address] [facility] (18762) fraction] Comment: Performed By: #### MG1, CBC, BMP ####[place] [address] 0 Hemoglobin (Bld) 16.3 13.0-17.0 g/dL Normal 06-01-2019 [facility] [Mass/Vol] (47157) Comment: Performed By: #### MG1, CBC, BMP ####[place] [address] 0 MCH (RBC) [Entitic mass] 30.4 26.0-34.0 pG Normal 06-[address] [facility] (86109) Comment: Performed By: #### MG1, CBC, BMP ####[place] [address] 0 MCHC (RBC) [Mass/Vol] 33.4 30.5-36.0 g/dL Normal 06-01-[address] [place] [address] (19926) Comment: Performed By: #### MG1, CBC, BMP ####[place] [address] 0 MCV (RBC) [Entitic vol] 91.0 80.0-100.0 fL Normal 06-[address] [facility] (68819) Comment: Performed By: #### MG1, CBC, BMP ####[place] [address] 0 Platelet mean volume (Bld) 9.5 9.0-12.7 fL Normal [facility] (18484) [Entitic vol] Comment: Performed By: #### MG1, CBC, BMP ####[place] [address] 0 Platelets (Bld) [#/Vol] 275 150-400 k/uL Normal [address] [facility] (71609) Comment: Performed By: #### MG1, CBC, BMP ####[place] [address] 0 RBC (Bld) [#/Vol] 5.36 4.20-6.00 m/uL Normal 06-01-2019 [facility] (11145) Comment: Performed By: #### MG1, CBC, BMP ####[facility] [address] [place] [address] 0 WBC (Bld) [#/Vol] 7.13 3.70-11.00 k/uL Normal 06-01-[address] [facility] (23275) Comment: Performed By: #### MG1, CBC, BMP ####[facility] [address] [place] [address] 0 basic metabolic panl on 2019-06-01 Anion gap [Moles/Vol] 14 9-18 mmol/L Normal 06-01-[address] [facility] (16044) Comment: Performed By: #### MG1, CBC, BMP ####[facility] [address] [place] [address] 0 Calcium [Mass/Vol] 8.7 8.5-10.2 mg/dL Normal 06-01-[address] [facility] (66594) Comment: Performed By: #### MG1, CBC, BMP ####[place] [address] 0 Chloride [Moles/Vol] 104 97-105 mmol/L Normal [address] [facility] (26363) Comment: Performed By: #### MG1, CBC, BMP ####[facility] [address] [place] [address] 0 CO2 [Moles/Vol] 24 22-30 mmol/L Normal 06-01-2019 [facility] (69048) Comment: Performed By: #### MG1, CBC, BMP ####[facility] [address] [place] [address] 0 Creatinine [Mass/Vol] 0.81 0.73-1.22 mg/dL Normal 06-01-[address] [facility] (27133) Comment: Performed By: #### MG1, CBC, BMP ####[facility] [address] [place] [address] 0 eGFR- Amer. >60 Normal 06-01-[address] [facility] (52052) Comment: Performed By: #### MG1, CBC, BMP ####[facility] [address] [place] [address] 0 GFR/1.73 sq M predicted >60 mL/min/{1.73_m2} Normal 06-01-[address] [facility] among non-blacks MDRD (88581) (S/P/Bld) [Vol rate/Area] Comment: Result Comment: eGFR [...] Performed By: #### MG1, CBC, BMP ####[facility] E[phone] 0 Glucose [Mass/Vol] 117 74-99 mg/dL High 06-01-[address] [facility] (04743) Comment: Result Comment: The [place] Diabetes Association (ADA) provides guidance for cutoff [...] for diagnosis of diabetes. Reference: Standards of [facility] Care in Diabetes 2016, [place] Diabetes Association. Diabetes Care. 2016.39(Suppl 1). Performed By: #### MG1, CBC, BMP ####[facility] [address] [place] [phone] 0 Potassium [Moles/Vol] 4.1 3.7-5.1 mmol/L Normal 06-01-[address] [facility] (54232) Comment: Performed By: #### MG1, CBC, BMP ####[facility] [address] [place] [phone] 0 Sodium [Moles/Vol] 142 136-144 mmol/L Normal 06-01-[address] [facility] (05326) Comment: Performed By: #### MG1, CBC, BMP ####[facility] K[address]hwvet6380 [phone] Urea nitrogen [Mass/Vol] 19 9-24 mg/dL Normal 06-[address] [facility] (64412) Comment: Performed By: #### MG1, CBC, BMP ####[facility] [address] [place] [phone] 0 xr chest 2v frontal/lat on 2019-04-27 XR CHEST 2V * * *Final Report* * * Normal 04-27 [facility] FRONTAL/LAT DATE OF EXAM: Apr 27 2019 2:13PM [place] WOX 5291 - XR CHEST 2V FRONTAL/LAT / (92309) PROCEDURE REASON: ZAMORANO (dyspnea on exertion) * [...] osseous abnormality. IMPRESSION: No acute radiographic abnormality. Emergency Department: [facility] Transcribe Date/Time: Apr 27 2019 2:21P Dictated by : MARY BOTELLO MD This examination was interpreted and the report reviewed and electronically signed by: MARY BOTELLO MD on Apr 27 2019 2:23PM EST [id number] progress on 2019-04 PROGRESS HNO ID: [id number] Normal 04-27-2019 [facility] Author: Bryon Hay (Rt) [facility] ([id number]) Service: ? Author Type: Death Surveys Coder Type: Progress Notes Filed: 04/27/2019 2:15 PM [...] 27, 2019 2:15 PM PROGRESS HNO ID: [id number] Normal 04-27-2019 [facility] Author: Bryon Hay (Rt) [place] ([id number]) Service: ? Author Type: Death Surveys Coder Type: Progress Notes Filed: 04/27/2019 2:15 PM [...] 27, 2019 2:07 PM PROGRESS HNO ID: [id number] Normal 04-27-2019 [facility] Author: Magen [facility] ([id number]) Service: ? Author Type: Nurse Practitioner Type: [...] Laterality Date - COLONOSCOP W/ OR W/O [facility] SPEC 02/15/2019 Colonoscopy - COLONOSCOPY 2006 - [...] - Can take nasocort daily. Magen Shelton APRN.ELECTRIC METER REPAIRER cnov on 2019-04-27 [facility] Office Visit (FAMPWS) Normal 04-27-19 [place] JOCELYN Arias ([id number]) 1945 [facility] Date Time Provider Department (66529) 04/27/19 1:40 PM MAGEN SHELTON (EMA) ABNER [...] Laterality Date - COLONOSCOP W/ OR W/O [facility] SPEC 02/15/2019 Colonoscopy - COLONOSCOPY 2006 - [...] cough , no fever chills , w morongo and half Reason For Visit History Recorded Primary Visit Diagnosis:ZAMORANO (dyspnea on exertion) [R06.09] Other Visit Diagnosis:PND (post-nasal drip) [R09.82] Order(s):XR CHEST 2V FRONTAL/LAT [6080590] Order #: [id number] FUTURE Prescriptions as of 04/27/2019 Sig: [...] Temperature 97.11 [degF] 12-06-2019 [facility] (03810) Body weight 75.75 kg 03-12-2020 [facility] (99230) Body weight 75.3 kg 12-17-2019 [facility] (54386) Body weight 73.48 kg 12-06-2019 [facility] (44583) BP Diastolic 90 mm[Hg] 03-12-2020 [facility] (77249) BP Diastolic 80 mm[Hg] 12-17-2019 [facility] (84755) BP Diastolic 90 mm[Hg] 12-06-2019 [facility] (13886) BP Systolic 162 mm[Hg] 03-12-2020 [facility] (20422) BP Systolic 138 mm[Hg] 12-17-2019 [facility] (06116) BP Systolic 150 mm[Hg] 12-06-2019 [facility] (90063) Height 171.5 cm 12-17-2019 [facility] (04536) Pulse (Heart Rate) 64 /min 03-12-2020 [facility] (51019) Pulse (Heart Rate) 64 /min 12-17-2019 [facility] (66519) Pulse (Heart Rate) 68 /min 12-06-2019 [place] [facility] (46812) Pulse Oximetry 96 % 12-06-2019 [facility] (79160) Respiratory Rate 16 /min 03-12-2020 [facility] (33019) Respiratory Rate 16 /min 12-06-2019 [facility] (60778) Encounters Date Type Reason Provider Location 04-07-2020 - Patient encounter External Provider [facility] 04-07-2020 procedure 03-18-2020 - Patient encounter External Provider [facility] 03-18-2020 procedure 03-17-2020 - Patient encounter External Provider [facility] 03-17-2020 procedure 03-12-2020 - Patient encounter Post-discharge Bella Santos [facility] 03-12-2020 procedure follow-up [place] Comment: Hospital discharge follow-up (Primary Dx); Musculoskeletal chest pain; Chest pain, unspecified type ; Atelectasis; SOB (shortness of breath); S/P CABG x 3 03-05-2020 - Patient encounter [facility] 03-05-2020 procedure External Provider [place] Comment: RE: Medication Question (Not Renewal) 12-17-2019 [...] Postnasal drip; Coronary artery disease invo lving ekuk coronary artery of ekuk heart without angina pectoris; Essential hypertension 04-07-2020 Results Only External Provider External-N [facility] 03-18-2020 Results Only External Provider External-N on[facility] 03-17-2020 Results Only External Provider External-N on[facility] 03-05-2020 - 03-05-2020 Results Only External Provider External-NonCCF 04-03-2020 - 04-03-2020 Subsequent hospital Stress Lab [facility] visit by physician [facility]osp Comment: 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 (HCC) [ I25.119] 04-03-2020 - 04-03-2020 Subsequent hospital Stress Lab 1 [facility] visit by physician [facility]osp Comment: 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 (HCC) [ I25.119] 04-03-2020 - Subsequent Coronary [facility] Molecular 04-03-2020 hospital visit by atherosclerosis [facility] Imagin g physician Comment: 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 (HCC) [ I25.119] 03-13-2020 - Telephone Patient encounter Bella Santos [facility] y Medicine 03-13-2020 encounter status [place] Comment: Orders Procedures Procedure Name Date Provider Location EXTERNAL IMAGING 04-07-2020 External Provider [facility] lluvia (99325) Myocardial spect multiple 04-03-2020 - Bella Santos [facility] studies 04-03-2020 (41756) EXTERNAL IMAGING 03-18-2020 External Provider [place] [facility] (76813) EXTERNAL LAB 03-17-2020 External Provider [place] [facility] (68158) EXTERNAL CARDIOLOGY 03-05-2020 External Provider [facility] (55630) EXTERNAL LAB 03-05-2020 External Provider [facility] (17307) Antibody screen 06-05-2019 [facility] (94280) Comment: Performed By: #### TSCR #### [facility] [place], [place] [phone] Colonoscopy 02-15-2019 - 02-15-[address] [facility] (70569) Plan of Treatment Plan Description Date Location DTAP,TDAP,TD (2 - Td) DTAP,TDAP,TD (2 - Td) 02-07-2027 - [facility] 02-07-2027 (50142) LIPID SCREEN LIPID SCREEN 10-18-2024 - [facility] 10-18-2024 (09941) COLONOSCOPY COLONOSCOPY 02-16-2024 - [facility] 02-16-2024 (44558) COLONOSCOPY no information 02-16-2024 - [facility] 02-16-2024 (54322) COLORECTAL CANCER COLORECTAL CANCER 02-16-2024 [facility] in SCREENING,SEE MODIFIER SCREENING,SEE MODIFIER (0 [phone]) DIABETES SCREEN DIABETES SCREEN 10-18-2022 - [facility] 10-18-2022 (59093) ANNUAL PCP TEAM CHRONIC ANNUAL PCP TEAM CHRONIC 03-12-2021 - [facility] DISEASE VISIT DISEASE VISIT 03-12-2021 (53590) ANNUAL PCP TEAM CHRONIC ANNUAL PCP TEAM CHRONIC 12-05-2020 - [facility] DISEASE VISIT DISEASE VISIT 12-05-2020 (85570) LDL CHOLESTEROL LDL CHOLESTEROL 10-18-2020 - [facility] 10-18-2020 (94230) INFLUENZA (#1) INFLUENZA (#1) 2019 - [facility] 12-25-2019 (98008) ADVANCE DIRECTIVE ADVANCE DIRECTIVE 09-08-2011 [facility] in DISCUSSION DISCUSSION 09-08-2011 (83035) COLOGUARD (FIT-DNA) no information 1996 - [facility] inic 1996 (49548) SHINGRIX VACCINE (1 of SHINGRIX VACCINE (1 of 1996 - [facility] 2) 2) 1996 (33628) BP CONTROLLED (<130/80) BP CONTROLLED (<130/80) 1964 - [facility] 1964 (99352) HEPATITIS C SCREENING HEPATITIS C SCREENING 1964 - [facility] 1964 (83746) ABDOMINAL AORTIC ABDOMINAL AORTIC 1946 - [facility] ic ANEURYSM SCREENING ANEURYSM SCREENING 1945 (78776) NM CARDIAC PERF NM CARDIAC PERF 04-12-2021 [facility] STRESS/EXERCISE STRESS/EXERCISE (53610) Radiology Routine 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) 1 Occurrences starting 03/13/2020 until 04/12/2021 Comment: 1 Occurrences starting 03/13 until 04/12/2021 PRE-PROCEDURE & PRE-PROCEDURE & 03-13-2021 [facility] PRE-OPERATIVE COVID PRE-OPERATIVE COVID (53797) Microbiology Routine Pre-procedure lab exam 1 Occurrences starting 03/13/2020 until 03/13/2021 Comment: 1 Occurrences starting 03/13 until 03/13/2021 no information [facility] (52805) Immunizations Vaccine Notes Status Date Location Pneumococcal-13 Vac pneumococcal conjugate (completed) 01-27-2016 - [facility] Conjugate vaccine, 13 valent 01-27-2016 (42174) Pneumovax pneumococcal (completed) 02-01-2017 - [facility] c polysaccharide vaccine, 02-01-2017 (441 95) 23 valent Tdap (Age 7+) tetanus toxoid, reduced (completed) 02-07-2017 - [facility] diphtheria toxoid, and 02-07-2017 (4419 5) acellular pertussis vaccine, adsorbed Payers Payer Name Policy Number Location [employer] MEDICARE [id number] [facility] (44 195) The following information is from the original human readable contentNo Payer Records FoundNo Payer Records FoundNo Payer Records FoundNo Payer Records FoundNo Payer Records Found Social History Type Social History Date Location Description History of tobacco use Current smoker 12-27-1976 [facility] (01613) History SDOH Social 3 04-23-2019 - [facility] inic Connections Phone 10-23-2019 (63410) History of tobacco use Cigarette Smoker 12-27-[address] [facility] (91471) Cigarettes smoked 03-12-2020 - [facility] ic current (pack per day) - 03-12-2020 (76968) Reported Tobacco use and exposure Never used 03-12-2020 - [facility] 03-12-2020 (89623) Alcohol intake Current drinker of 03-12-2020 - [place] [facility] alcohol (finding) 03-12-2020 (64037) History SDOH Alcohol 4 10-23-2019 - [place] [facility] Frequency 10-23-2019 (89548) History SDOH Alcohol Std 1 04-23-2019 - [facility] Drinks 04-23-2019 (06101) Tobacco smoking status Former smoker 03-12-2020 - [facility] NHIS 03-12-2020 (22830) History SDOH Social 2 04-23-2019 - [facility] inic Connections Get Together 10-23-2019 (18919) History SDOH Physical 6 10-23-2019 - [facility] Activity DPW 10-23-2019 (55004) History SDOH Physical 5 04-23-2019 - [facility] Activity MPS 10-23-2019 (88343) History SDOH Education 19 04-23-2019 - [facility] 04-23-2019 (13727) Sex Assigned At Not on file 1945 - [facility] 1945 (55212) Exposure to SARS-CoV-2 Not sure [facility] (event) (01211) Exposure to SARS-CoV-2 Unable to assess [facility] (event) (59644) The following information is from the original human readable contentNo Social History Records FoundNo Social History Records FoundNo Social History Records FoundNo Social History Records FoundNo Social History Records Found Medical Equipment Equipment Code Equipment Original Equipment Procedure Code Dates (if provided) Text (if provided) Identifier (if (if provided) provided) [place] [id number] [id number] 06-06-2019 Rectangle Ptfe 4.5x6mm Cardiovascular [place] - [id number] Reason for Referral Status Reason Specialty Diagnoses / Referred By Referred To Procedures Contact Contact Pending PCP Requested MOLECULAR & Diagnoses 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) Darrius Santos & Review Referral FUNCTIONAL Procedures NM CARDIAC PERF STRESS/EXERCISE MYOCARDIAL IMAGING, MULTIPLE Bella D Functional IMAGING [address] [facility] [address] [place], [place] Phone: [phone] Phone: Status Reason Specialty Diagnoses / Referred By Referred To Procedures Contact Contact Authorized PCP Requested MOLECULAR & Diagnoses 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) Darrius Santos & Referral FUNCTIONAL Procedures NM CARDIAC PERF STRESS/EXERCISE MYOCARDIAL IMAGING, MULTIPLE Bella D Functional IMAGING [address] [place], [place] [id number] [place] [address] Phone: [phone] Phone: History of Past Illness Problem Noted Date Resolved Date Chest pain 06/05/2019 06/11/2019 Chest pain 06/01/2019 06/02/2019 Last Assessment & Plan: Concerning 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 & SOB x6 weeks 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 CT chest shows calcified coronary vessel s [...] Concerning 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 & SOB x6 weeks 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 CT chest shows calcified coronary vessel s [...] Concerning 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 & SOB x6 weeks 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 CT chest shows calcified coronary vessel s [...] Concerning 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 & SOB x6 weeks 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 CT chest shows calcified coronary vessel s [...] Concerning 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 & SOB x6 weeks 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 CT chest shows calcified coronary vessel s [...] Concerning 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 & SOB x6 weeks 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 CT chest shows calcified coronary vessel s [...] Concerning 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 & SOB x6 weeks 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 CT chest shows calcified coronary vessel s [...] Pre-procedural laboratory examination 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) Diagnosis Intercostal [...] pharyngitis Postnasal drip Coronary artery disease involving ekuk coronary artery of ekuk heart without angina pectoris Essential hypertension Unspecified essential hypertension Diagnosis 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) Advance Directives Documents on File Type Date Recorded 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(s) 02/02/2019 2:43 PM Advance Directive(s) 02/15/2019 7:32 AM Advance Directive(s) 06/02/2019 9:26 AM Advance Directive(s) 06/05/2019 11:20 AM Documents on File Type Date Recorded 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(s) 02/02/2019 2:43 PM Advance Directive(s) 02/15/2019 7:32 AM Advance Directive(s) 06/02/2019 9:26 AM Advance Directive(s) 06/05/2019 11:20 AM Documents on File Type Date Recorded 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(s) 06/05/2019 11:20 AM Advance Directive(s) 06/02/2019 9:26 AM Advance Directive(s) 02/15/2019 7:32 AM Advance Directive(s) 02/02/2019 2:43 PM Documents on File Type Date Recorded 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 Loaiza is a 74 year old male seen for follow-up status post hospital admission with a [facility] patient had prior history of coronary artery [...] Laterality Date ? COLONOSCOP W/ OR W/O [facility] SPEC 02/15/2019 Colonoscopy ? COLONOSCOPY 2006 ? [...] old male who presents here today for [facility] f/u. Pt was in the [facility] ER on 03/08/2020 with c/o chest pains. [...] Laterality Date ? COLONOSCOP W/ OR W/O [facility] SPEC 02/15/2019 Colonoscopy ? COLONOSCOPY 2006 ? [...] LOOKBACK Completed MENINGOCOCCAL CONJUGATE Completed Data reviewed [facility] ER reports from 03/08/2020 ASSESSMENT/PLAN: 1. Hospital [...] Past Histories independently gathered by the clinical sales support administrator and the remaining scribed note accurately describes [...] Continue LORATADINE. 4. 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 5. Essential hypertension - ICD9: 401.9, ICD10: I10 - suboptimal control - Continue current medication(s) - Follow up with cardiology and PCP. Calderon Olsen MD documented in this [facility] ([facility] [place] - 04/03/2020 12:45 PM EST RADIOLOGY SERVICE [...] STATUS: Discontinued PROCEDURE TYPE: NM Stress: 12.7mCi [id number] was administered IV for Rest Imaging at 12:45 by MARCY Rothman 31.6 mCi [id number] was administered IV for Stress Imaging at [...] BE BASED ON THE PRIMARY CLINICAL RECORDS. [facility] provides no warranty or guarantee of the accuracy or completeness of information in this document. UNRECOGNIZED CONTENT PROVIDED BELOW FOR UNRECOGNIZED SECTION Source Comments In the event this information is protected by the Federal Confidentiality of Alcohol and Drug Abuse Patient Records regulations: The Federal rules restrict any use of the information to criminally investigate or prosecute any alcohol or drug abuse patient.[facility] the event this information is protected by the Federal Confidentiality of Alcohol and Drug Abuse Patient Records regulations: The Federal rules restrict any use of the information to criminally investigate or prosecute any alcohol or drug abuse patient.[facility] the event this information is protected by the Federal Confidentiality of Alcohol and Drug Abuse Patient Records regulations: The Federal rules restrict any use of the information to criminally investigate or prosecute any alcohol or drug abuse patient.[facility] the event this information is protected by the Federal Confidentiality of Alcohol and Drug Abuse Patient Records regulations: The Federal rules restrict any use of the information to criminally investigate or prosecute any alcohol or drug abuse patient.[facility] the event this information is protected by the Federal Confidentiality of Alcohol and Drug Abuse Patient Records regulations: The Federal rules restrict any use of the information to criminally investigate or prosecute any alcohol or drug abuse patient.[facility] the event this information is protected by the Federal Confidentiality of Alcohol and Drug Abuse Patient Records regulations: The Federal rules restrict any use of the information to criminally investigate or prosecute any alcohol or drug abuse patient.[facility] the event this information is protected by the Federal Confidentiality of Alcohol and Drug Abuse Patient Records regulations: The Federal rules restrict any use of the information to criminally investigate or prosecute any alcohol or drug abuse patient.[facility] the event this information is protected by the Federal Confidentiality of Alcohol and Drug Abuse Patient Records regulations: The Federal rules restrict any use of the information to criminally investigate or prosecute any alcohol or drug abuse patient.[facility] the event this information is protected by the Federal Confidentiality of Alcohol and Drug Abuse Patient Records regulations: The Federal rules restrict any use of the information to criminally investigate or prosecute any alcohol or drug abuse patient.[facility] the event this information is protected by the Federal Confidentiality of Alcohol and Drug Abuse Patient Records regulations: The Federal rules restrict any use of the information to criminally investigate or prosecute any alcohol or drug abuse patient.[facility]In the event this information is protected by the Federal Confidentiality of Alcohol and Drug Abuse Patient Records regulations: The Federal rules restrict any use of the information to criminally investigate or prosecute any alcohol or drug abuse patient.[facility]In the event this information is protected by the Federal Confidentiality of Alcohol and Drug Abuse Patient Records regulations: The Federal rules restrict any use of the information to criminally investigate or prosecute any alcohol or drug abuse patient.[facility] the event this information is protected by the Federal Confidentiality of Alcohol and Drug Abuse Patient Records regulations: The Federal rules restrict any use of the information to criminally investigate or prosecute any alcohol or drug abuse patient.[facility] HospitalIn the event this information is protected by the Federal Confidentiality of Alcohol and Drug Abuse Patient Records regulations: The Federal rules restrict any use of the information to criminally investigate or prosecute any alcohol or drug abuse patient.[facility] UNRECOGNIZED CONTENT PROVIDED BELOW FOR UNRECOGNIZED SECTION Reason for Visit Reason Comments Orders Reason Comments Established Patient Reason Comments ED Follow-up Reason Comments Hospital F/U Status Reason Specialty Diagnoses / Referred By Referred To Procedures Contact Contact Authorized PCP Requested MOLECULAR & Diagnoses 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) Darrius Santos & Referral FUNCTIONAL Procedures NM CARDIAC PERF STRESS/EXERCISE MYOCARDIAL IMAGING, MULTIPLE Bella Reyna Functional IMAGING [address] [place] [place] [id number] [place] [address] Phone: [phone] Phone: UNRECOGNIZED CONTENT PROVIDED BELOW [...] that it has been submitted to [facility] on 03/03 #30 w/2 refills. Jocelyn Walker MA documented in this encounterTelephone Encounter - Mary Panye Ma - 03/13/2020 3:06 PM ESTPatient was [...] DATE CREATED AUTHOR AUTHOR'S ORGANIZATIO N 06/18/2019 [facility] DATE CREATED AUTHOR AUTHOR'S ORGANIZATIO N 04/01/2020 [facility] DATE CREATED AUTHOR AUTHOR'S ORGANIZATIO N 04/03/[address] [facility]
== END 2020-03-08 19:30 | disposition home or self-care (01) ==
PROVIDERS: Emergency Provider Emergency Medicine; PCP Family Medicine
DX: R07.89 Other chest pain (principal); M25.512 Pain in left shoulder; I25.10 Atherosclerotic heart disease of native coronary artery without angina pectoris; I10 Essential (primary) hypertension; E78.5 Hyperlipidemia, unspecified; N40.0 Benign prostatic hyperplasia without lower urinary tract symptoms; Z79.82 Long term (current) use of aspirin; Z79.899 Other long term (current) drug therapy; Z87.891 Personal history of nicotine dependence; Z95.1 Presence of aortocoronary bypass graft
CPT/HCPCS: 71045; 80048; 84484; 85025; 93005; 99285; A4216

== ENCOUNTER 2021-09-17 15:49 | Emergency (ER) | payer MEDICARE, SELFPAY ==
[2019-11-08 06:42] VITALS: BMI 25.9
[2021-09-17 15:49] VITALS: BP 153/95; PULSE 64; RESP 18; TEMP 36.4; O2SAT 98; BMI 26.8
--- NOTE | 2021-09-17 16:30 | EKG12_ITS ---
Test Reason : SOB Blood Pressure : / mmHG Vent. Rate : 063 BPM Atrial Rate : 063 BPM P-R Int : 184 ms QRS Dur : 112 ms QT Int : 402 ms P-R-T Axes : 047 -65 054 degrees QTc Int : 411 ms Normal sinus rhythm Left axis deviation Abnormal ECG Confirmed by ESPERANZA DEL CASTILLO, GABRIELA ([id number]), make up editor PAYAM PERALES ([id number]) on 09/18/2021 10:20:52 AM Referred By: SOPHIE Confirmed By:GABRIELA MATA MD
--- NOTE | 2021-09-17 16:40 | RAD_ITS ---
STUDY: X-RAY CHEST REASON FOR EXAM: Male, 76 years old. chest pain TECHNIQUE: AP portable COMPARISON: 03/08/2020 FINDINGS: Mild chronic interstitial thickening in the right lower lobe. There is no demonstrated pleural abnormality. Postop change status post median sternotomy and CABG Normal size heart. Normal mediastinum and meka. Normal visualized pulmonary arteries. Tortuous mildly calcified aortic arch and descending thoracic aorta. Normal visualized thoracic spine. Normal visualized ribs, clavicles, and shoulders. There is no demonstrated abnormality of the visualized soft tissue structures of the upper abdomen. No significant change since prior exam RAD/Chest 1 View (Portable) IMPRESSION: ASHD. Mild chronic interstitial thickening in the right lower lobe No acute cardiopulmonary pathology Electronically Signed: Jay Arzate MD at 17:08 EDT ,
[2021-09-17 16:49] VITALS: BP 146/81; PULSE 76; RESP 16; O2SAT 96
[2021-09-17 16:56] LABS: Absolute Lymphocyte Count 1.09 X10^3/uL (0.83-4.51); Absolute Neutrophil Count 7.6 X10^3/uL (2.0-7.7); Basophil# 0.04 X10^3/uL; Basophil% 0.4 % (0-1); Eosinophil# 0.12 X10^3/uL; Eosinophils% 1.2 % (0-5); Hematocrit 48.8 % (40-54); Hemoglobin 16.5 g/dL (13.0-16.5); Lymphocyte # 1.09 X10^3/ul (0.83-4.51); Lymphocyte % 10.5 % (19-41); Mean Corp Hgb Conc 33.8 g/dL (32-36); Mean Corpuscular Volume 91.7 fL (80-94); Mean Platelet Vol. 9.2 fl (6.2-12.0); Monocyte# 1.48 X10^3/uL; Monocyte% 14.2 % (0-10); NRBC Flagged by Analyzer 0 % (0-5); Neutrophil # 7.61 X10^3/uL (2.7-7.7); Neutrophil % 73.2 % (47-70); Platelet Count 267 K/mm3 (150-450); RBC Distribution Width CV 12.1 % (11.6-14.6); RBC Distribution Width SD 40.8 fl (35.1-43.9); Red Blood Count 5.32 M/mm3 (4.6-6.2); White Blood Count 10.4 K/mm3 (4.4-11.0)
[2021-09-17 17:08] LABS: Anion Gap 5 (5-15); BUN 26 mg/dL (7-18); Calcium,Total 9.1 mg/dL (8.5-10.1); Chloride 107 mmol/L (98-107); EST Glomerular Filtration Rate 78 mL/min (>60); Est Glom Filt Rate - Afr Amer 94 mL/min (>60); Estimated Creatinine Clearance 59.67 ml/min; Glucose 104 mg/dL (74-106); Potassium 4.2 mmol/L (3.5-5.1); Sodium Level 140 mmol/L (136-145); Troponin-I HS (w/2H Reflex) 4 pg/mL (3.0-78.0)
[2021-09-17 18:00] VITALS: BP 155/83; PULSE 77; RESP 18; O2SAT 93
--- NOTE | 2021-09-17 18:20 | EKG12_ITS ---
Test Reason : REPEAT CP Blood Pressure : / mmHG Vent. Rate : 062 BPM Atrial Rate : 062 BPM P-R Int : 188 ms QRS Dur : 116 ms QT Int : 398 ms P-R-T Axes : 050 -68 059 degrees QTc Int : 403 ms Normal sinus rhythm Left axis deviation Left ventricular hypertrophy with QRS widening Abnormal ECG Confirmed by ESPERANZA DEL CASTILLO, GABRIELA ([id number]), news videotape editor PAYAM PERALES ([id number]) on 09/18/2021 10:20:36 AM Referred By: GRIS Confirmed By:GABRIELA MATA MD
[2021-09-17 18:49] LABS: Reflex Troponin-HS? (from REC) Y
--- NOTE | 2021-09-17 18:55 | EX.ED.DYSGE1 ---
HPI <ANALI Eduardo - Last Filed: 09/17/21 19:01> History of Present Illness Chief Complaint: Shortness of Breath Narrative Narrative: 76-year-old male with history of CAD, hypertension hyperlipidemia presents to the emergency department with 2 days of right-sided shoulder pain, sore throat. Patient has been changing his hypertension medications secondary to being having a sore throat. Patient states today he had no more sore throat however he does have pain to his right shoulder and right back. Patient did take Tylenol for this pain, states that this brought the pain from a 4 to a 2 on the pain scale. Patient states just because he has history of cardiac bypass 2 years ago, he would like to make sure this is not his heart. Patient states that intermittently he does have shortness of breath. Denies any recent trips, recent surgeries, history of blood clots in legs or lungs. [facility] <ANALI Eduardo - Last Filed: 09/17/21 19:01> [facility] Medical History (Updated 09/17/21 @ 19:01 by ANALI Eduardo) Acne rosacea Atherosclerotic heart disease of [place] coronary artery without angina pectoris Dyslipidemia Dyspnea on exertion Former smoker, stopped smoking in distant past Hypertension Kidney stones HARLEY on CPAP Home Medications aspirin 162 mg PO DAILY@0800 01/22/14 [History Last Taken 05/31/19] atorvastatin 40 mg PO QHS 01/22/14 [History Last Taken 05/31/19] acetaminophen 500 - 1,000 mg PO Q6H PRN PRN 07/05/19 [History Last Taken Unknown] sennosides-docusate sodium 1 ea PO BID 07/05/19 [History Last Taken Unknown] tamsulosin 0.4 mg PO BID 07/05/19 [History Last Taken Unknown] metoprolol tartrate 25 mg PO BID 11/27/19 [History Last Taken 11/27/19] omeprazole 20 mg PO DAILY 03/08/20 [History Last Taken Unknown] azelaic acid 1 applic TOPICAL BID 09/17/21 [History Last Taken Unknown] doxycycline hyclate 20 mg PO BID 09/17/21 [History Last Taken Unknown] losartan 50 mg PO DAILY 09/17/21 [History Last Taken Unknown] Allergy/AdvReac Type Severity Reaction Status Date / Time No Known Allergies Allergy Verified 09/17/21 15:55 Surgical History (Updated 09/17/21 @ 16:13 by Sonja Thakur) H/O hernia repair H/O lithotripsy Hx of tonsillectomy S/P triple vessel bypass Social History Smoking Status: Former smoker ROS <ANALI Eduardo - Last Filed: 09/17/21 19:01> ROS ED ROS Narrative Constitutional: Negative for fever, chills, weight loss, weakness Eyes: Negative for vision loss, vision change, double vision ENT: Negative for any sore throat, ear pain, congestion Cardiovascular: Negative for any chest pain, tightness, palpitations Respiratory: Negative for any cough, sputum production, hemoptysis, dyspnea on exertion, orthopnea. Positive intermittent dyspnea Gastrointestinal: Negative for any abdominal pain, nausea, vomiting, diarrhea, constipation, blood in stool, blood in vomit : Negative for any urinary frequency, dysuria, retention, blood in urine Muscle skeletal: Negative for any muscle joint pain, stiffness, myalgias, arthralgias, neck pain, back pain. Positive right-sided shoulder pain, right-sided back pain Neurological: Negative for any headache, syncope, numbness or tingling, dizziness Skin: Negative for any rashes, lumps, itching, abrasions, lacerations Psychiatric: Negative for any depression, anxiety, stress, suicidal ideation, homicidal ideation Hematologic: Negative for any easy bruising, excessive bruising, easy bleeding Allergies: Negative for any eczema, hives, rash EXAM <ANALI Eduardo - Last Filed: 09/17/21 19:01> Physical Exam Narrative Exam Narrative: Vital signs reviewed. HEET: Head normocephalic atraumatic, TMs clear bilaterally. Posterior pharynx is clear, moist mucous membranes. Nares clear bilaterally. Neck: Supple with no lymphadenopathy or tenderness. No signs of meningismus, negative jolt sign. Cardiac: Regular rate and rhythm no murmurs gallops or rubs, equal peripheral pulses bilaterally. Respiratory: Lungs clear to auscultation bilaterally. No chest tenderness. Abdomen: Soft, nontender, nondistended. No abdominal bruit or pulsatile masses. No hepatosplenomegaly Extremities: No peripheral edema, no signs of gross trauma or deformity. Active full range of motion of all extremities. Neuro: Cranial nerves II through XII intact, no focal neurological deficits. Skin: Clean dry and intact with no rash, purpura, petechiae, vesicles or pustules. Backs/flank: No CVA tenderness, no midline spinal tenderness, no deformity. Psych: Normal mood and affect. No SI, HI or acute psychosis. Const Vital Signs: 09/17/21 15:49 09/17/21 16:26 09/17/21 16:49 Temperature 97.6 F L Temperature Source Temporal Pulse Rate 64 76 Respiratory Rate 18 16 Blood Pressure 153/95 H 146/81 H Blood Pressure Mean 114 102 Pulse Ox 98 96 Oxygen Delivery Method Room Air Room Air Room Air 09/17/21 18:00 09/17/21 19:13 Temperature Temperature Source Pulse Rate 77 73 Respiratory Rate 18 17 Blood Pressure 155/83 H 150/90 H Blood Pressure Mean 107 Pulse Ox 93 95 Oxygen Delivery Method Room Air <Dr. Ezequiel Blas DO - Last Filed: 09/17/21 19:17> Physical Exam Const Vital Signs: 09/17/21 15:49 09/17/21 16:26 09/17/21 16:49 Temperature 97.6 F L Temperature Source Temporal Pulse Rate 64 76 Respiratory Rate 18 16 Blood Pressure 153/95 H 146/81 H Blood Pressure Mean 114 102 Pulse Ox 98 96 Oxygen Delivery Method Room Air Room Air Room Air 09/17/21 18:00 09/17/21 19:13 Temperature Temperature Source Pulse Rate 77 73 Respiratory Rate 18 17 Blood Pressure 155/83 H 150/90 H Blood Pressure Mean 107 Pulse Ox 93 95 Oxygen Delivery Method Room Air [facility] <ANALI Eduardo - Last Filed: 09/17/21 19:01> [facility] Narrative Medical decision making narrative: Patient appears well, patient appears nontoxic, vital signs are stable. Patient presents to the emergency department with complaints of 2 days of right shoulder pain, right back pain, and was concerned because he had intermittent chest tightness, shortness of breath and came to the emergency department. Patient had a full cardiac work-up, patient CBC, chemistries were grossly unremarkable. Patient is high sensitivity troponin was negative. Patient EKG showed normal sinus rhythm, and the patient was stable here. I do not believe the patient is having any acute cardiopulmonary pathology, patient EKG, chest x-ray, troponins were negative. Chest x-ray is read by the ER physician. The pain is relieved with Tylenol, patient struck to continue this. 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 Instructed return for any worsening symptoms. No indication of any ACS, ME. Lab Data Labs: Laboratory Results - last 24 hr 09/17/21 09/17/21 16:35 16:35 WBC 10.4 RBC 5.32 Hgb 16.5 Hct 48.8 MCV 91.7 MCH 31.0 MCHC 33.8 RDW Std Deviation 40.8 RDW Coeff of [place] 12.1 Plt Count 267 MPV 9.2 Immature Gran % (Auto) 0.500 Neut % (Auto) 73.2 H Lymph % (Auto) 10.5 L [place] % (Auto) 14.2 H Eos % (Auto) 1.2 Baso % (Auto) 0.4 Absolute Neuts (auto) 7.6 Absolute Lymphs (auto) 1.09 Nucleated RBC % 0 Sodium 140 Potassium 4.2 Chloride 107 Carbon Dioxide 28.0 Anion Gap 5 BUN 26 H Creatinine 1.00 Estim Creat Clear Calc 59.67 Est GFR (MDRD) Af Amer 94 Est GFR (MDRD) Non-Af 78 BUN/Creatinine Ratio 26.0 H Glucose 104 Calcium 9.1 Troponin I High Sens 4 Radiography Diagnostic Testing: Clinical Impression(s) from Imaging Studies Chest X-Ray 09/17/21 16:40 IMPRESSION: ASHD. Mild chronic interstitial thickening in the right lower lobe No acute cardiopulmonary pathology Electronically Signed: Jay Arzate MD at 17:08 EDT Reading Location ID and State: [facility] / [place] , Service support , EKG Normal sinus rhythm: Attestation: I personally reviewed and interpreted this EKG as follows: Comments: Normal sinus rhythm, rate of 63 bpm, CT interval 184 ms, QRS duration 12 ms, no acute ST elevation, no acute infarct noted. <Dr. Ezequiel Blas, DO - Last Filed: 09/17/21 19:17> [facility] MDM Narrative Medical decision making narrative: This patient was seen with a PA/HAT BLOCK MAKER Individually assessed they patient including history and physical. I have reviewed everything on the chart that is available and agree with the documentation provided by the PA/HAT BLOCK MAKER including discussion about the assessment, treatment plan, discussion, and return precautions. This is a 76-year-old male presenting with right-sided shoulder and chest pain. He does state at times he short of breath. Took Tylenol prior to arrival and his pain improved significantly. CBC and BMP are unremarkable. High-sensitivity troponin after 2 days is only 4. I do not believe to repeat. His heart rate is 64, respiration rate 18, O2 sat 98% and I have a low clinical suspicion for PE. EKG is sinus rhythm without signs of ischemia or dysrhythmia my interpretation. Chest x-ray my interpretation is no acute cardiopulmonary process and the radiologist agree. At this point I feel the patient is stable for discharge home. Return precautions discussed. Impression: 1. Right shoulder pain 2. Chest pain?noncardiac 3. Shortness of breath Lab Data Attestation: I reviewed the patient's lab results. Labs: Laboratory Results - last 24 hr 09/17/21 09/17/21 16:35 16:35 WBC 10.4 RBC 5.32 Hgb 16.5 Hct 48.8 MCV 91.7 MCH 31.0 MCHC 33.8 RDW Std Deviation 40.8 RDW Coeff of [place] 12.1 Plt Count 267 MPV 9.2 Immature Gran % (Auto) 0.500 Neut % (Auto) 73.2 H Lymph % (Auto) 10.5 L [place] % (Auto) 14.2 H Eos % (Auto) 1.2 Baso % (Auto) 0.4 Absolute Neuts (auto) 7.6 Absolute Lymphs (auto) 1.09 Nucleated RBC % 0 Sodium 140 Potassium 4.2 Chloride 107 Carbon Dioxide 28.0 Anion Gap 5 BUN 26 H Creatinine 1.00 Estim Creat Clear Calc 59.67 Est GFR (MDRD) Af Amer 94 Est GFR (MDRD) Non-Af 78 BUN/Creatinine Ratio 26.0 H Glucose 104 Calcium 9.1 Troponin I High Sens 4 Radiography Diagnostic Testing: Clinical Impression(s) from Imaging Studies Chest X-Ray 09/17/21 16:40 IMPRESSION: ASHD. Mild chronic interstitial thickening in the right lower lobe No acute cardiopulmonary pathology Electronically Signed: Jay Arzate MD at 17:08 EDT , Discharge Plan Triage Chief Complaint: Shortness of Breath ED Midlevel Provider: Allen Gould ED Provider: Ezequiel Blas Dx/Rx/DC Orders Clinical Impression: Acute chest wall pain Instructions: ED Chest Pain, Noncardiac, ED Chest Pain, Uncertain Cause Prescriptions: No Action atorvastatin 10 MG tablet 40 mg PO QHS RF: 0 aspirin 81 MG tablet 162 mg PO DAILY@0800 RF: 0 sennosides-docusate sodium 1 EACH tablet 1 ea PO BID RF: 0 acetaminophen 500 MG tablet 500 - 1,000 mg PO Q6H PRN PRN (Reason: Pain Or Fever) RF: 0 tamsulosin 0.4 MG capsule 0.4 mg PO BID RF: 0 metoprolol tartrate 25 MG tablet 25 mg PO BID RF: 0 omeprazole 20 MG capsule 20 mg PO DAILY RF: 0 losartan 50 mg tablet 50 mg PO DAILY RF: 0 doxycycline hyclate 20 mg tablet 20 mg PO BID RF: 0 azelaic acid 15 % gel 1 applic TOPICAL BID RF: 0 Primary Care Provider: Marcel Santos Referrals: Marcel Santos MD [Primary Care Provider] - Activity Restrictions/Additional Instructions: Please continue to take Tylenol, return for any worsening chest pain, shortness of breath. Print Language: Burkinan Disposition Disposition: Home, Self Care Discharge Date/Time: 09/17/21 19:17
[2021-09-17 19:13] VITALS: BP 150/90; PULSE 73; RESP 17; O2SAT 95
== END 2021-09-17 19:17 | disposition home or self-care (01) ==
PROVIDERS: Nurse Practitioner; Emergency Provider Student in an Organized Health Care Education/Training Program; PCP Family Medicine; Visit Provider Student in an Organized Health Care Education/Training Program
DX: R07.89 Other chest pain (principal); M25.511 Pain in right shoulder; R06.02 Shortness of breath; I25.10 Atherosclerotic heart disease of native coronary artery without angina pectoris; J02.9 Acute pharyngitis, unspecified; I10 Essential (primary) hypertension; E78.5 Hyperlipidemia, unspecified; M54.9 Dorsalgia, unspecified; G47.33 Obstructive sleep apnea (adult) (pediatric); Z79.82 Long term (current) use of aspirin; Z79.899 Other long term (current) drug therapy; Z87.891 Personal history of nicotine dependence; Z95.1 Presence of aortocoronary bypass graft
CPT/HCPCS: 71045; 80048; 84484; 85025; 93005; 99284; A4216

== ENCOUNTER 2022-06-15 21:40 | Emergency (ER) | payer MEDICARE, SELFPAY ==
[2019-11-08 06:42] VITALS: BMI 25.9
[2022-06-15 21:40] VITALS: BP 173/83; PULSE 62; RESP 16; TEMP 36.6; O2SAT 98
--- NOTE | 2022-06-15 21:58 | ED.VIS.LOWEX ---
HPI History of Present Illness Chief Complaint: Lower Extremity Injury Narrative Narrative: 76-year-old male past medical history of osteoarthritis of the knee, states he was diagnosed with this by his orthopedic surgeon, Dr. Gallo Toro, few weeks ago. He has been doing physical therapy, but tonight, when he was straightening up around the house, he twisted his right knee, and fell onto the loveseat. He did not hit his head or lose consciousness, but his knee twisted and he felt a pop. He now has diffuse right knee pain and pain with standing and walking/movement of his right knee. He denies other injury. No hitting of his head or loss of consciousness. He was brought here by a friend because he is having more pain diffusely throughout his right knee. [facility] Medical History Acne rosacea Atherosclerotic heart disease of [place] coronary artery without angina pectoris Dyslipidemia Dyspnea on exertion Former smoker, stopped smoking in distant past Hypertension Kidney stones HARLEY on CPAP Home Medications aspirin 81 mg tablet,delayed release 162 mg PO DAILY@0800 heart health 01/22/14 [History Last Taken 05/31/19] atorvastatin 10 mg tablet 40 mg PO QHS cholesterol 01/22/14 [History Last Taken 05/31/19] acetaminophen 500 mg tablet 500 - 1,000 mg PO Q6H PRN PRN Pain Or Fever 07/05/19 [History Last Taken Unknown] sennosides 8.6 mg-docusate sodium 50 mg tablet 1 ea PO BID bowel care 07/05/19 [History Last Taken Unknown] tamsulosin 0.4 mg capsule 0.4 mg PO BID prostate 07/05/19 [History Last Taken Unknown] metoprolol tartrate 25 mg tablet 25 mg PO BID heart 11/27/19 [History Last Taken 11/27/19] omeprazole 20 mg capsule,delayed release 20 mg PO DAILY 03/08/20 [History Last Taken Unknown] azelaic acid 15 % topical gel 1 applic topical BID 09/17/21 [History Last Taken Unknown] doxycycline hyclate 20 mg tablet 20 mg PO BID 09/17/21 [History Last Taken Unknown] losartan 50 mg tablet 50 mg PO DAILY 09/17/21 [History Last Taken Unknown] oxycodone 5 mg tablet 5 mg PO Q6H PRN pain 3 days #12 tabs 06/15/22 [Rx Last Taken Unknown] Allergy/AdvReac Type Severity Reaction Status Date / Time No Known Allergies Allergy Verified 06/15/22 21:42 Surgical History H/O hernia repair H/O lithotripsy Hx of tonsillectomy S/P triple vessel bypass Social History Smoking Status: Former smoker ROS ROS ED ROS Narrative Constitutional: No fever, no chills. HEENT: No sore throat. No neck pain. No loss of vision. No rhinorrhea. Cardiovascular: No chest pain. No palpitations. No pedal edema. Respiratory: No cough, no shortness of breath. Abdominal: No abdominal pain. No nausea. No vomiting. Genitourinary: No dysuria. No hematuria. Musculoskeletal: No myalgias. Right knee pain worse with movement, and after twisting. Neurologic: No headaches. No dizziness. No lightheadedness. Skin: No rash. No change in color. Psychiatric: No depression. No anxiety. EXAM Physical Exam Narrative Exam Narrative: Afebrile. Vital signs noted. HEENT: Normocephalic. Atraumatic. PERRL, EOMI. Neck soft and supple. No point tenderness or step off. Cardiovascular: Regular rate and rhythm. No murmurs, rubs, or gallops appreciated. Respiratory: No tachypnea. Lungs clear to auscultation bilaterally. Gastrointestinal: Abdomen soft, nontender, with normoactive bowel sounds. No rebound or guarding. Neurological: Awake. Alert. Nonfocal, nonlateralizing. Skin: No rash. Normal color. No pallor. Musculoskeletal: No pedal edema. Diffuse tenderness to palpation right knee along the medial and lateral meniscal lines and over collateral ligaments. No overt swelling. Flexion and extension mechanism intact. Able to lift leg off bed partially. Neurovascularly intact distally with palpable dorsalis pedis pulse. EHL intact on right as tested. Const Vital Signs: 06/15/22 21:40 Temperature 97.8 F Temperature Source Temporal Pulse Rate 62 Respiratory Rate 16 Blood Pressure 173/83 H Blood Pressure Mean 113 Pulse Ox 98 Oxygen Delivery Method Room Air MDM MDM MDM Narrative Medical decision making narrative: I do feel that the patient probably has more of a knee sprain versus internal derangement/possible meniscal tear. X-rays were obtained of the right knee and 4 views and interpreted by myself. My interpretation shows no evidence of fracture, but there is a suprapatellar joint effusion. I reviewed the radiology report which confirms my interpretation. He will be placed in a knee immobilizer and given crutches. He will continue acetaminophen as needed for pain. Additionally, he required oxycodone here in the emergency department and a prescription written to take as needed over the next 3 days. He states he only takes them and already takes extra strength Tylenol hence I wrote him for straight oxycodone. He was told of the risk of nausea, vomiting, drowsiness, constipation, and addiction and acknowledges an understanding. He will follow-up with orthopedics, Dr. Gallo Toro in 7 to 10 days. I feel he can be discharged safely home with follow-up. Return instructions to the emergency department were reviewed. Disposition is discharged home in stable condition. Radiography Diagnostic Testing: Clinical Impression(s) from Imaging Studies Knee X-Ray 06/15/22 22:10 IMPRESSION: 1. No acute or healing fracture or malalignment. 2. Small to moderate suprapatellar joint effusion. Electronically Signed: Antwan Andrews MD at 22:28 EST , Discharge Plan Triage Chief Complaint: Lower Extremity Injury ED Provider: Domingo Peña Dx/Rx/DC Orders Clinical Impression: Right knee sprain, Internal derangement of knee Instructions: Opioid Use Risks, ED Meniscal Injury Knee Poss, ED Knee Sprain Prescriptions: New oxycodone 5 mg tablet 5 mg PO Q6H PRN (Reason: pain) 3 Days Qty: 12 0RF No Action atorvastatin 10 MG tablet 40 mg PO QHS aspirin 81 MG tablet 162 mg PO DAILY@0800 sennosides-docusate sodium 1 EACH tablet 1 ea PO BID acetaminophen 500 MG tablet 500 - 1,000 mg PO Q6H PRN PRN (Reason: Pain Or Fever) tamsulosin 0.4 MG capsule 0.4 mg PO BID metoprolol tartrate 25 MG tablet 25 mg PO BID omeprazole 20 MG capsule 20 mg PO DAILY losartan 50 mg tablet 50 mg PO DAILY Label Comments: Take 1 tablet by mouth once daily. doxycycline hyclate 20 mg tablet 20 mg PO BID azelaic acid 15 % gel 1 applic TOPICAL BID Rx Instructions: apply to face Primary Care Provider: Marcel Santos Referrals: Marcel Santos MD [Primary Care Provider] - Gallo Toro MD [Med Staff - Active Staff] - 1 Week if not improving Disposition Disposition: Home, Self Care
--- NOTE | 2022-06-15 22:10 | RAD_ITS ---
EXAM: XR RIGHT KNEE, 3 VIEWS CLINICAL INDICATION: pain, trauma TECHNIQUE: Three views of the right knee. This report was created using [employer] report generation technology. COMPARISON: None. FINDINGS: BONES/JOINTS: Small to moderate suprapatellar joint effusion. Small bone identified at the medial metaphysis of the proximal tibia. No acute or healing fracture or malalignment. No unusual lytic or sclerotic lesions of bone. SOFT TISSUES: Unremarkable. No soft tissue swelling or gas. No radiopaque foreign body. VASCULATURE: Peripheral vascular calcifications are seen posteriorly. RAD/Knee 4 or More Views IMPRESSION: 1. No acute or healing fracture or malalignment. 2. Small to moderate suprapatellar joint effusion. Electronically Signed: Antwan Andrews MD at 22:28 EST ,
[2022-06-15] MEDS: oxyCODONE 5 MG Tablet PO (22:57)
== END 2022-06-15 23:34 | disposition home or self-care (01) ==
PROVIDERS: Emergency Provider Emergency Medicine; PCP Family Medicine; Visit Provider Emergency Medicine
DX: S83.91XA Sprain of unspecified site of right knee, initial encounter (principal); I25.10 Atherosclerotic heart disease of native coronary artery without angina pectoris; E78.5 Hyperlipidemia, unspecified; I10 Essential (primary) hypertension; M25.461 Effusion, right knee; Z87.891 Personal history of nicotine dependence; M23.90 Unspecified internal derangement of unspecified knee; X50.1XXA Overexertion from prolonged static or awkward postures, initial encounter
CPT/HCPCS: 73564; 99283

== ENCOUNTER 2022-07-06 08:30 | Outpatient (RCR) | payer MEDICARE, SELFPAY ==
[2019-11-08 06:42] VITALS: BMI 25.9
--- NOTE | 2022-06-04 12:58 | HP.PTEVAL_ITS ---
Patient's Visit Information LEONOR COYLE is a 76 year old M referred to Physical Therapy by Dr. Gallo Toro MD with a diagnosis of R knee pain, R knee OA. Date of Evaluation: 06/04/22 Physical Therapist: Jaswinder Pan DPT - Visit Plan Frequency: 2x /Week Duration: 4 Weeks Plan: Start with knee extension mobs (PA grade III/IV) progressing towards end range extension. Add in glute medius, quad strengthening both for home and gym exercises. Work in minimal pain ranges. - Subjective Pt. is here today for his initial evaluation with diagnosis of R knee pain and OA. Pt. reports having pain for. Pt. reports minimal pain when he is moving, but his worst pain with at rest, especially with driving. Pt. is still doing his gym routines with decent tolerance. He was having some issues on the stepper/elliptical machine, but has been able to do it since without issues. No N/T noted. Pt. reports pain at medial and lateral knee. He reports not having much pain during exercises, but it is later in the day that he feels it. - Pain R knee Pain Intensity (Out of 10): 1 Pain Intensity Range: 0, 5 - Objective POSTURE: Pt. has slight off loading of RLE, but not much, slight genu varum. Pt. has otherwise pretty good posture in stance. PALPATION: Pt. has some mild tenderness and medial and lateral joint line. Slight tenderness at lateral popliteal fossa. NEURO: normal sensation to light and sharp, normal DTR of BLEs. ROM: Pt. has decent ROM in both knees, slight loss of TKE actively in RLE (AROM 0-3-129deg), PROM 0-0-131deg with mild pain at end range extension (medially). MMT: Pt. has good strength throughout BLEs., He does have a 10# difference in knee extension and 90deg compared to L side, 5# difference in full knee extension. Symmetrical B knee flexion but did have mild increase in symptoms with R knee flexion. Hip: B hip abd 4/5. flexion 5/5, ext 5-/5. GAIT: pt. ambulates with slight lack of TKE during stance phase, slight increase in genu varum on the R side during stance phase. Rest of gait pattern normal. Stairs: fairly normal pattern without increase in symptoms. - Special Tests R Knee [place] - ACL: Negative R Knee Valgus - MCL: Negative R Knee Varus - LCL: Negative R Knee Patellar Apprehension - PFS: Negative R Knee Patellar Grind - PFS: Negative - Balance/Special Test Scores Lower Extremity Functional Score: 40 - Goals Goal 1:: LTG: Pt. to be I with HEP for home and gym. Goal Time Frame: 4-6 Weeks Goal 2:: STG: Pt. to be have full knee extension on R knee with out increase in symptoms. Goal Time Frame: 2-4 Weeks Goal 3:: LTG: pt. to have increased RLE strength to 5/5 throughout knee and hip. Goal Time Frame: 4-6 Weeks Goal 4:: LTG: Pt. to complete all gym exercises without increase in symptoms. Goal Time Frame: 4-6 Weeks Goal 5:: LTG: pt. to be able to hike without increase in R knee pain. Goal Time Frame: 4-6 Weeks - Rehabilitation Potential Physical Therapy Diagnosis: Pt. has signs and symptoms consistent with R knee OA resulting in R medial and lateral knee pain, medial worse than lateral. Pt. has slight loss in end range extension on R side as well as some mild quad and glute medius weakness. Pt. would benefit from PT to address the listed limitations progressing back to all gym and recreational activities without limitations. Rehabilitation Potential: Good - Anticipated Interventions Patient/Client Instruction: Educate patient on: Condition, Plan of Care, Risk Factors, Benefits of Fitness Program For the Purpose of:: To foster healthy habits, To improve decision making, To facilitate caregiver knowledge, To improve self management, To prevent re- injury, To improve ability to perform tasks related to life management Therapeutic Exercise to Include: Strength training, Power training, Endurance training, Postural training, Flexibilty training, Gait and locomotor training, Passive ROM, Active ROM For the Purpose of:: To decrease pain, To increase ROM, To improve nutrient delivery to tissue, To increase oxygenation perfusion, To improve muscle performance and motor function, To improve ability to perform ADL's, To increase tolerance to activity/condition/position, To improve performance and independence with ADL's Manual Therapy Techniques to Include: Mobilization For the Purpose of:: To decrease pain, To increase ROM, To improve nutrient delivery to tissue Thank you for the opportunity to evaluate your patient. For Medicare and Medicare HMO plans, please review the plan of care and approve it. It will need to be FAXED BACK to us at [phone] for Medicare purposes. For Medicare only, by signing this I certify the plan of care. Please let me know if there are questions or concerns regarding this plan of care. Physician Signature: Date:
--- NOTE | 2022-07-06 09:23 | HP.PTREVAL_ITS ---
Dr. Gallo Toro MD, It has been my pleasure to treat LEONOR COYLE over the last 4 visits for R knee pain, R knee OA. Please see the progress note below for an update on the physical therapy plan of care! Subjective: Pt. reports ~2 weeks ago falling while he was doing his laundry. During the this time he felt a pop in his knee when he twisted his R knee. pt. reports 2/10 pain coming in today. Pt. did have an MRI showing a complex medial meniscus tear. He has been off it for a little bit now, but has been feeling a little bit better over the past few days. Objective/Function: ROM: R knee: 0-4-125deg. slight pain limiting end ranges of motion. Normal hip ROM, slight tightness in B HS. MMT: LLE: ankle 5/5 throughout; knee: ext 47.9#, flexion 35.2#. hip: 5-/5 throughout. RLE: ankle 5/5 throughout; knee: ext 31.1#, flexion 23.3#. hip: 5-/5 throughout. gait: pt. has slight increase in symptoms to 2/10 in R medial knee with walking. Slight early off loading during end of stance phase on R side. STAIRS: reciprocal pattern, slight early off during R stance phase with descending. Pt. is overall doing a bit better than a few weeks ago. I talked to him about not over doing it with his hiking, but easing into activities. I gave him some hip strengthening exercises and HS stretching. He does lack TKE on R side, he is to work on this as well. He wants to get back to hiking. He reports hiking [employer]. I want him to stay on the paved trails for now, and slowly ease into trail hiking. Pt. consents. He had been doing the stair stepper at the gym, I suggested mid range biking or more of a standard elliptical, but only if not painful. Pt. consents. Plan Plan: Pt. desires to trial the exercises given to hip today independently and check in with PT in 2-3 weeks if needed. I want him easing into his activities with hiking. pt. consents. Balance/Gait/Functional tests - Balance/Special Test Scores Lower Extremity Functional Score: 40 Goals Goal 1:: LTG: Pt. to be I with HEP for home and gym. Goal Time Frame: 4-6 Weeks Goal Progress: Progressing Goal 2:: STG: Pt. to be have full knee extension on R knee with out increase in symptoms. Goal Time Frame: 2-4 Weeks Goal Progress: Progressing Goal 3:: LTG: pt. to have increased RLE strength to 5/5 throughout knee and hip. Goal Time Frame: 4-6 Weeks Goal Progress: Progressing Goal 4:: LTG: Pt. to complete all gym exercises without increase in symptoms. Goal Time Frame: 4-6 Weeks Goal Progress: Progressing Goal 5:: LTG: pt. to be able to hike without increase in R knee pain. Goal Time Frame: 4-6 Weeks Goal Progress: Progressing Anticipated Interventions Patient/Client Instruction: Educate patient on: Condition, Plan of Care, Risk Factors, Benefits of Fitness Program For the Purpose of:: To foster healthy habits, To improve decision making, To facilitate caregiver knowledge, To improve self management, To prevent re- injury, To improve ability to perform tasks related to life management Therapeutic Exercise to Include: Strength training, Power training, Endurance training, Postural training, Flexibilty training, Gait and locomotor training, Passive ROM, Active ROM For the Purpose of:: To decrease pain, To increase ROM, To improve nutrient delivery to tissue, To increase oxygenation perfusion, To improve muscle performance and motor function, To improve ability to perform ADL's, To increase tolerance to activity/condition/position, To improve performance and independence with ADL's Manual Therapy Techniques to Include: Mobilization For the Purpose of:: To decrease pain, To increase ROM, To improve nutrient delivery to tissue Please do not hesitate to contact me at [phone] by phone or if you have questions or concerns regarding this new plan of care! Sincerely, Jaswinder Pan DPT
--- NOTE | 2022-09-27 10:46 | HP.PTDCSUM_ITS ---
"It has been my pleasure to treat LEONOR COYLE referred by Dr. Gallo Toro MD, with the diagnosis of R knee pain, R knee OA for a total of 4 visit(s). Discharge Date: Please see the following information for a summary of their discharge status. Subjective: Pt. reports ~2 weeks ago falling while he was doing his laundry. During the this time he felt a pop in his knee when he twisted his R knee. pt. reports 2/10 pain coming in today. Pt. did have an MRI showing a complex medial meniscus tear. He has been off it for a little bit now, but has been feeling a little bit better over the past few days. R knee Pain Intensity (Out of 10): 2 Objective/Function: ROM: R knee: 0-4-125deg. slight pain limiting end ranges of motion. Normal hip ROM, slight tightness in B HS. MMT: LLE: ankle 5/5 throughout; knee: ext 47.9#, flexion 35.2#. hip: 5-/5 throughout. RLE: ankle 5/5 throughout; knee: ext 31.1#, flexion 23.3#. hip: 5-/5 throughout. gait: pt. has slight increase in symptoms to 2/10 in R medial knee with walking. Slight early off loading during end of stance phase on R side. STAIRS: reciprocal pattern, slight early off during R stance phase with descending. Pt. is overall doing a bit better than a few weeks ago. I talked to him about not over doing it with his hiking, but easing into activities. I gave him some hip strengthening exercises and HS stretching. He does lack TKE on R side, he is to work on this as well. He wants to get back to hiking. He reports hiking [employer]. I want him to stay on the paved trails for now, and slowly ease into trail hiking. Pt. consents. He had been doing the stair stepper at the gym, I suggested mid range biking or more of a standard elliptical, but only if not painful. Pt. consents. Goal 1:: LTG: Pt. to be I with HEP for home and gym. Goal Progress: Progressing Goal 2:: STG: Pt. to be have full knee extension on R knee with out increase in symptoms. Goal Progress: Progressing Goal 3:: LTG: pt. to have increased RLE strength to 5/5 throughout knee and hip. Goal Progress: Progressing Goal 4:: LTG: Pt. to complete all gym exercises without increase in symptoms. Goal Progress: Progressing Goal 5:: LTG: pt. to be able to hike without increase in R knee pain. Goal Progress: Progressing Plan: Pt. desires to trial the exercises given to hip today independently and check in with PT in 2-3 weeks if needed. I want him easing into his activities with hiking. pt. consents. If there are questions or concerns regarding this patient's physical therapy, please feel free to call me at [phone]. Thank you for the referral of this patient. Sincerely, GUERLINE SilvestreT Balance/Gait/Functional tests - Balance/Special Test Scores Lower Extremity Functional Score: 40"
== END 2022-07-06 19:00 | disposition home or self-care (01) ==
LOC: PT 08:30
PROVIDERS: PCP Family Medicine; Referring Provider Orthopaedic Surgery; Visit Provider Orthopaedic Surgery
DX: M17.11 Unilateral primary osteoarthritis, right knee (principal)
CPT/HCPCS: 97035; 97110; 97140; 97161; 97164

== ENCOUNTER 2022-09-27 09:30 | Outpatient (RCR) | payer MEDICARE, SELFPAY ==
[2019-11-08 06:42] VITALS: BMI 25.9
--- NOTE | 2022-09-27 10:41 | HP.PTEVAL_ITS ---
Patient's Visit Information LEONOR COYLE is a 77 year old M referred to Physical Therapy by Dr. Jay Mendiola DO with a diagnosis of lumbar spinal stenosis, spondylosis, and lumbar spondylolisthesis. Date of Evaluation: 09/27/22 Physical Therapist: Jaswinder Pan DPT - Visit Plan Frequency: 1x/Week Duration: 6 Weeks Plan: Start with neutral spine core stability progressing to dynamic stability. - Subjective Pt. is here today for his initial evaluation with diagnosis of lumbar spinal stenosis, spondylosis, and lumbar spondylolisthesis. Pt. reports having increased symptoms for years, but seems to be getting worse recently. No mech of injury. Pt. reports increased pain with getting up form seated and lying, also pain with lifting. He does work out frequently with some abdominal strengthening including bridging and [place] twists. Pt. reports no increased in symptoms. Pt. denies any radicular symptoms. - Pain Lumbar spine Pain Intensity (Out of 10): 1 Pain Intensity Range: 0, 2 - Objective POSTURE: Pt. has decent posture in stance. Pt. has slight anterior pelvic tilt, patient able to correct with VCing. PALPATION: Pt. has mild tenderness in lumbar spine, but not much. NEURO: pt. has normal sensation in BLEs. Pt. has 2+ bilateral achilles and patellar DTR. Pt. is able to rise on heels and toes without issues. ROM: LUMBAR SPINE: flexion min loss increase NW, ext min loss increase NW, SB min loss bilat mild increase NW, rotation min loss NE. Pt. generally stiff in all motions. Pt. has tight B HS and hip flexors. MMT: Pt. has good strength thoruhgout BLEs, mild weakness 4+/5 in B hip abd and core flexion and extension. GAIT: PT. has normal gait pattern. Decent arm swing, minimal guarding noted. - Special Tests L/S Slump test left side: Negative L/S Slump test right side: Negative L/S Left Straight Leg Raise: Negative L/S Right Straight Leg Raise: Negative Lumbar Standing: Flexion - Mechanical Response: No effect Lumbar Standing: Flexion - Symptoms During Testing: Increases Lumbar Standing: Flexion - Symptoms After Testing: No worse Lumbar Standing: Extension - Mechanical Response: No effect Lumbar Standing: Extension - Symptoms During Testing: Increases Lumbar Standing: Extension - Symptoms After Testing: No worse Lumbar Standing: Right Side Glides - Mechanical Response: No effect Lumbar Standing: Right Side [place] - Symptoms During Testing: Increases Lumbar Standing: Right Side [place] - Symptoms After Testing: No worse Lumbar Standing: Left Side [place] - Mechanical Response: No effect Lumbar Standing: Left Side [place] - Symptoms During Testing: Increases Lumbar Standing: Left Side [place] - Symptoms After Testing: No worse - Balance/Special Test Scores Oswestry Low Back Score: 1 - Goals Goal 1:: LTG: pt. to be I with HEP. Goal Time Frame: 4-6 Weeks Goal 2:: LTG: Pt. to be able to get up and down from supine/sitting positioning without increase in lumbar spine pain. Goal Time Frame: 4-6 Weeks Goal 3:: STG: Pt. to have reduce low back pain to 0/10 at rest. Goal Time Frame: 2-4 Weeks Goal 4:: LTG: Pt. to complete all recreational activities without increase in symptoms. Goal Time Frame: 4-6 Weeks Goal 5:: LTG: pt. to have increased core and hip strength by 1/2 grade. Goal Time Frame: 4-6 Weeks - Rehabilitation Potential Physical Therapy Diagnosis: Pt. has signs and symptoms consistent with lumbar spinal stenosis, spondylosis, and lumbar spondylolisthesis. Pt. has some limited ROM and some limited core strength. He would benefit from PT to address the above limitations, progressing back to all recreational activities without limitations. Rehabilitation Potential: Excellent - Anticipated Interventions Patient/Client Instruction: Educate patient on: Condition, Plan of Care, Risk Factors, Benefits of Fitness Program For the Purpose of:: To improve decision making, To facilitate caregiver knowledge, To improve self management, To prevent re-injury, To improve ability to perform tasks related to life management, To improve tolerance to ADL's Therapeutic Exercise to Include: Strength training, Power training, Postural training, Flexibilty training For the Purpose of:: To decrease pain, To increase ROM, To improve nutrient delivery to tissue, To improve muscle performance and motor function, To improve ability to perform ADL's, To improve health of tissue Thank you for the opportunity to evaluate your patient. For Medicare and Medicare HMO plans, please review the plan of care and approve it. It will need to be FAXED BACK to us at [phone] for Medicare purposes. For Medicare only, by signing this I certify the plan of care. Please let me know if there are questions or concerns regarding this plan of care. Physician Signature: Date:
== END 2022-09-27 19:00 | disposition home or self-care (01) ==
LOC: PT 09:30
PROVIDERS: PCP Family Medicine; Referring Provider Orthopaedic Surgery; Visit Provider Orthopaedic Surgery
DX: M48.061 Spinal stenosis, lumbar region without neurogenic claudication (principal); M47.816 Spondylosis without myelopathy or radiculopathy, lumbar region; M43.16 Spondylolisthesis, lumbar region
CPT/HCPCS: 97110; 97161

== ENCOUNTER 2023-04-23 09:18 | Emergency (ER) | payer MEDICARE, SELFPAY ==
[2019-11-08 06:42] VITALS: BMI 25.9
[2023-04-23 09:19] VITALS: BP 132/71; PULSE 76; RESP 16; TEMP 36.5; O2SAT 93; BMI 25.1
--- NOTE | 2023-04-23 09:58 | RAD_ITS ---
STUDY: X-RAY CHEST REASON FOR EXAM: Male, 77 years old. Palpitations TECHNIQUE: Frontal view of the chest COMPARISON: 09/17/2021 FINDINGS: The lungs are clear. There are no pleural effusions. There is no pneumothorax. The heart is stable in size. Again noted are sternotomy wires. The visualized osseous structures are within normal limits. RAD/Chest 1 View (Portable) IMPRESSION: No acute thoracic pathology. Electronically Signed: Ryan Tee MD at 10:58 EST ,
--- NOTE | 2023-04-23 09:59 | EX.ED.DYSGE1 ---
HPI History of Present Illness Chief Complaint: Palpitations Informant: patient Narrative Narrative: Presents by EMS from home for palpitations after contacting nursing triage through [facility]. He states 2 days ago noted transient palpitations. Yesterday had recurrent symptoms in the evening and has persisted mild lightheaded symptoms. He reports yesterday had a heart rate briefly in the 40s blood pressure was 150s. He states he rested and all came back to normal. He does take metoprolol 25 mg twice daily for blood pressure along with losartan. Reported this morning blood pressures in the 80s when he called nursing line and was told to come by EMS. No cough. No vomiting or diarrhea. No urinary symptoms. History of coronary disease three-vessel bypass in the past followed by Dr. Parikh. He takes 2 baby aspirin's. EMS EKG transmitted was rate controlled A-fib. He has no history of this. He denies stroke history of heart failure or diabetes. As noted he is on blood pressure medicines. Prior similar symptoms: No PFSH PFS Medical History Acne rosacea Atherosclerotic heart disease of [place] coronary artery without angina pectoris Dyslipidemia Dyspnea on exertion Former smoker, stopped smoking in distant past Hypertension Kidney stones HARLEY on CPAP Home Medications aspirin 81 mg tablet,delayed release 162 mg PO DAILY@0800 heart health 01/22/14 [History Last Taken 05/31/19] atorvastatin 10 mg tablet 40 mg PO QHS cholesterol 01/22/14 [History Last Taken 05/31/19] acetaminophen 500 mg tablet 500 - 1,000 mg PO Q6H PRN PRN Pain Or Fever 07/05/19 [History Last Taken Unknown] sennosides 8.6 mg-docusate sodium 50 mg tablet 1 ea PO BID bowel care 07/05/19 [History Last Taken Unknown] tamsulosin 0.4 mg capsule 0.4 mg PO BID prostate 07/05/19 [History Last Taken Unknown] metoprolol tartrate 25 mg tablet 25 mg PO BID heart 11/27/19 [History Last Taken 11/27/19] omeprazole 20 mg capsule,delayed release 20 mg PO DAILY 03/08/20 [History Last Taken Unknown] azelaic acid 15 % topical gel 1 applic topical BID 09/17/21 [History Last Taken Unknown] doxycycline hyclate 20 mg tablet 20 mg PO BID 09/17/21 [History Last Taken Unknown] losartan 50 mg tablet 50 mg PO DAILY 09/17/21 [History Last Taken Unknown] oxycodone 5 mg tablet 5 mg PO Q6H PRN pain 3 days #12 tabs 06/15/22 [Rx Last Taken Unknown] apixaban 5 mg tablet (Eliquis) 5 mg PO BID #60 tabs 04/23/23 [Rx Last Taken Unknown] Allergy/AdvReac Type Severity Reaction Status Date / Time No Known Allergies Allergy Verified 04/23/23 09:21 Surgical History H/O hernia repair H/O lithotripsy Hx of tonsillectomy S/P triple vessel bypass Social History Smoking Status: Former smoker ROS ROS ED Constitutional Constitutional ED: Denies chills, fever(s) or sweats Eyes Eyes: Denies change in vision ENT ENT ED: Denies dysphagia or sore throat Cardiovascular Cardiovascular: Reports palpitations; Denies chest pain, leg edema or racing heartbeat Respiratory/Chest Respiratory/Chest: Denies cough, dyspnea or dyspnea on exertion Gastrointestinal Gastrointestinal: Denies abdominal pain, diarrhea, nausea or vomiting Genitourinary Genitourinary ED: Denies dysuria, hematuria or urinary frequency Musculoskeletal Musculoskeletal: Denies back pain, extremity pain or neck pain Integumentary Denies rash or wounds Neurologic Neurologic: Denies headache(s), paresthesias or weakness EXAM Physical Exam Const Vital Signs: 04/23/23 09:19 04/23/23 09:27 04/23/23 11:34 Temperature 97.7 F L Temperature Source Temporal Pulse Rate 76 69 Respiratory Rate 16 18 Respiratory Effort Normal Non-Labored Blood Pressure 132/71 H 101/75 Blood Pressure Mean 91 83 Pulse Ox 93 98 Positive well nourished and well developed General Appearance ED: well developed and NAD HEENT Reports moist mucous membranes normocephalic and atraumatic Eyes PERRL, EOMs intact bilaterally and conjunctivae normal General Eye ED: Yes normal appearance of both eyes Neck no lymphadenopathy and supple General: Negative for tenderness Chest Wall Chest: Negative for tenderness Resp normal respiratory effort and normal air movement Effort and Inspection: symmetric chest movement; Negative for respiratory distress Cardio regular rate and no murmurs Rhythm: abnormal rhythm Peripheral Pulses: pulses 2+ throughout GI normal to inspection, nondistended, normoactive bowel sounds and non-tender Palpation: Negative for guarding or rebound tenderness present Back/Spine no CVA tenderness and no thoracic nor lumbar tenderness Extremity normal to inspection General Extremety ED: Negative for edema or tenderness General Extremity: Negative for edema Neuro oriented x3 and no sensory deficits noted Sensorium / Orientation: awake and alert Skin no rashes or lesions noted and no wounds MDM MDM MDM Narrative Medical decision making narrative: Interventions / MDM: Differential diagnosis: New onset atrial fibrillation, palpitations Diagnosis considered but do not suspect: N/A My EKG interpretation: Rate controlled A-fib at 77, no ST or T wave changes. Imaging independently reviewed and interpreted by myself: 1 view chest x-ray: No acute process External documents reviewed: N/A Test considered but not ordered:N/A ED course: Patient new onset A-fib rate controlled on metoprolol. Blood pressure stable on arrival. CHADS2 Vascor is a 4. Will check labs chest x-ray. 1130: Heart remains controlled however in A-fib on the monitor. Labs are all stable including thyroid and magnesium levels. Discussed with patient his risk for strokes and with his CHADS2 score. Discussed starting Eliquis however he states he would like to talk to his [employer] prescription clerk prior to starting. He understands the risks of having a stroke in the meantime. I did discuss if he decides to start to avoid NSAIDs and use Tylenol if needed at home for pain or fever symptoms in the future. He will monitor for bleeding issues denies any recent rectal bleeding. Prescription Eliquis was sent to his pharmacy if he decides to start this. Return precautions. All questions were answered. Re-evaluation: stable Disposition discussed with patient/family/significant other: Patient Case discussed with consulting clinician: N/A This note was generated with [employer] dictation software. It may contain incorrect words, spelling, and punctuation that were not noted in checking the note before signing. Lab Data Attestation: I reviewed the patient's lab results. Labs: Laboratory Results - last 24 hr 04/23/23 10:00 WBC 6.8 RBC 5.29 Hgb 16.5 Hct 51.2 MCV 96.8 H MCH 31.2 MCHC 32.2 RDW Std Deviation 42.1 RDW Coeff of [place] 11.8 Plt Count 309 MPV 9.4 Immature Gran % (Auto) 0.600 Neut % (Auto) 59.2 Lymph % (Auto) 21.9 Gregg % (Auto) 16.0 H Eos % (Auto) 1.6 Baso % (Auto) 0.7 Absolute Neuts (auto) 4.0 Absolute Lymphs (auto) 1.48 Nucleated RBC % 0 PT 13.8 INR 1.1 APTT 30.4 Sodium 141 Potassium 4.3 Chloride 108 H Carbon Dioxide 31.0 Anion Gap 2 L BUN 24 H Creatinine 1.09 Estim Creat Clear Calc 53.90 Est GFR (MDRD) Af Amer 84 Est GFR (MDRD) Non-Af 70 BUN/Creatinine Ratio 22.0 H Glucose 69 L Calcium 9.3 Magnesium 2.4 TSH 1.94 Radiography Diagnostic Testing: Clinical Impression(s) from Imaging Studies Chest X-Ray 04/23/23 09:58 IMPRESSION: No acute thoracic pathology. Electronically Signed: Ryan Tee MD at 10:58 EST , Discharge Plan Triage Chief Complaint: Palpitations ED Provider: Philipp Morales Dx/Rx/DC Orders Clinical Impression: Palpitations, New onset a-fib Instructions: AFib Dc Prescriptions: New Eliquis 5 mg tablet 5 mg PO BID Qty: 60 0RF No Action atorvastatin 10 MG tablet 40 mg PO QHS aspirin 81 MG tablet 162 mg PO DAILY@0800 sennosides-docusate sodium 1 EACH tablet 1 ea PO BID acetaminophen 500 MG tablet 500 - 1,000 mg PO Q6H PRN PRN (Reason: Pain Or Fever) tamsulosin 0.4 MG capsule 0.4 mg PO BID metoprolol tartrate 25 MG tablet 25 mg PO BID omeprazole 20 MG capsule 20 mg PO DAILY losartan 50 mg tablet 50 mg PO DAILY Patient Comments: Take 1 tablet by mouth once daily. doxycycline hyclate 20 mg tablet 20 mg PO BID azelaic acid 15 % gel 1 applic TOPICAL BID Rx Instructions: apply to face oxycodone 5 mg tablet 5 mg PO Q6H PRN (Reason: pain) 3 Days Qty: 12 0RF Primary Care Provider: Marcel Santos Referrals: Julio Cesar Mccarthy MD [Non-Staff] - 3-5 Days Marcel Santos MD [Primary Care Provider] - Activity Restrictions/Additional Instructions: You have new atrial fibrillation on EKG that is rate controlled. Your labs including thyroid and magnesium are normal. Your x-ray is negative. You are recommended to start anticoagulants to prevent stroke. Prescription for Eliquis is sent to your pharmacy. You are electing to discuss with your heart doctor prior to starting. You understand the risks of stroke. Call your [employer] prescription clerk office for discussion to start the medications. If you decide to start, avoid NSAIDs, can use Tylenol if needed for pain or fevers. Return if any worsening symptoms. Disposition Disposition: Home, Self Care
--- OUTSIDE RECORDS SUMMARY | 2023-04-23 10:07 | XMS RPT_ITS | CCD ---
Author Name Unknown Address [address] [place] [address] Organization [facility] Care Team Providers Care Test Developer Name Role Phone Bella Mead MD Primary Care Provider BELLA MEAD Attending Unavailable BELLA MEAD Primary Care Unavailable BELLA MEAD Referring Unavailable BELLA MEAD Primary Care Unavailable BELLA MEAD Referring Unavailable BELLA MEAD Primary Care Unavailable BELLA MEAD Referring Unavailable BELLA MEAD Attending Unavailable BELLA MEAD Primary Care Unavailable BELLA MEAD Primary Care Unavailable DRAKE MCCARTHY Attending Unavailable BELLA MEAD Primary Care Unavailable BELLA MEAD Attending Unavailable BELLA MEAD Primary Care Unavailable BELLA MEAD Referring Unavailable BELLA MEAD Attending Unavailable BELLA MEAD Primary Care Unavailable BELLA MEAD Primary Care Unavailable MARLY BETH Referring Unavailable MARLY BETH Attending Unavailable Medications Current Medications Medication Drug Class(es) Dates Sig (Normalized) Sig (Original) nirmatrelvir tablet 300 mg (150 mg x 2) and ritonavir tablet 100 mg in a dose pack (PAXLOVID) (1 source) Start: 10-22-2022 End: 10-27-2022 nirmatrelvir tablet 300 mg (150 mg x 2) and ritonavir tablet 100 mg in a dose pack (PAXLOVID) Indications: COVID Administer TWO pink nirmatrelvir 150 mg tablets and ONE white ritonavir 100 mg tablet for a total of three tablets twice daily. 30 tablet 0 10/22/2022 10/27/2022 Active Completed/Discontinued Medications Medication Drug Class(es) Dates Sig (Normalized) Sig (Original) acetaminophen 500 mg oral tablet (20 sources) Start: 06-11-2019 take 2 tablets by mouth every six hours acetaminophen (TYLENOL) 500 mg tablet Take 2 tablets by mouth every 6 hours. 0 06/11/2019 Active Problems Active Problems Problem Classification Problem Date Documented Date Episodic/Chronic Acquired foot deformities (1 source) Talipes planus; Translations: [Flat foot [pes planus] (acquired), right foot] Episodic Complication of device; implant or graft (20 sources) Arteriosclerosis of coronary artery bypass graft; Translations: [Atherosclerosis of coronary artery bypass graft(s) without angina pectoris] Onset: 06-05-2019 06-30-2020 Chronic Disorders of lipid metabolism (20 sources) Dyslipidemia; Translations: [Hyperlipidemia, unspecified] Onset: 08-31-2021 06-02-2019 Chronic Esophageal disorders (2 sources) Gastroesophageal reflux disease without esophagitis; Translations: [Gastro-esophageal reflux disease without esophagitis] Chronic Essential hypertension (20 sources) Essential hypertension; Translations: [Essential (primary) hypertension] Onset: 01-12-2021 01-12-2021 Chronic Hemorrhoids (1 source) Hemorrhoids; Translations: [Unspecified hemorrhoids] 11-09-2022 Episodic Other connective tissue disease (1 source) Pain of toe of left foot; Translations: [Pain in left toe(s)] Episodic Other connective tissue disease (1 source) Pain of toe of right foot; Translations: [Pain in right toe(s)] Episodic Other inflammatory condition of skin (20 sources) Rosacea; Translations: [Rosacea, unspecified] 01-15-2019 Chronic Other lower respiratory disease (20 sources) Dyspnea on exertion; Translations: [Dyspnea, unspecified] 12-27-2014 Episodic Other non-traumatic joint disorders (1 source) Pain in right knee; Translations: [Pain in joint, lower leg] Episodic Other nutritional; endocrine; and metabolic disorders (20 sources) Disorder of carbohydrate metabolism; Translations: [Other disorders of intestinal carbohydrate absorption] Onset: 06-22-2019 06-22-2019 Chronic Other upper respiratory disease (20 sources) Sore throat - chronic; Translations: [Chronic pharyngitis] Onset: 12-06-2019 12-06-2019 Chronic Residual codes; unclassified (20 sources) Obstructive sleep apnea syndrome; Translations: [Obstructive sleep apnea (adult) (pediatric)] 06-02-2019 Chronic Screening and history of mental health and substance abuse codes (20 sources) Ex-smoker; Translations: [Personal history of nicotine dependence] 12-27-2014 Episodic Viral infection (1 source) Disease caused by 2019-nCoV; Translations: [COVID-19] Episodic Past or Other Problems Problem Classification Problem Date Documented Da te Episodic/Chronic Cardiac dysrhythmias (3 sources) Tachycardia; Translations: [Tachycardia, unspecified] Onset: 04-15-2022 Episodic Diabetes mellitus without complication (4 sources) Increased glucose level; Translations: [Other abnormal glucose] Onset: 05-04-2022 Episodic Mycoses (3 sources) Onychomycosis; Translations: [Tinea unguium] Onset: 06-03-2022 Episodic Nonspecific chest pain (20 sources) Pain of intercostal space; Translations: [Intercostal pain] Onset: 12-17-2019 12-17-2019 Episodic Other screening for suspected conditions (not mental disorders or infectious disease) (20 sources) Pulmonary function studies abnormal; Translations: [Abnormal results of pulmonary function studies] Onset: 12-27-2014 12-27-2014 Episodic Results Test Name Value Interpretation Reference Range Facil ity Vital Signs Date Time Vital Sign Value Performing Clinician Faci lity 11-09-2022 09:30-0400 Body weight 68.4 kg Bella Mead MD Work Phone: [facility] 11-09-2022 09:30-0400 Diastolic blood pressure 78 mm[Hg] Bella Mead MD Work Phone: [facility] 11-09-2022 09:30-0400 Heart rate 56 /min Bella Mead MD Work Phone: [facility] 11-09-2022 09:30-0400 Respiratory rate 16 /min Bella Mead MD Work Phone: [facility] 11-09-2022 09:30-0400 Systolic blood pressure 124 mm[Hg] Bella Mead MD Work Phone: [facility] 05-06-2022 09:22-0500 Body weight 78.93 kg Bella Mead MD Work Phone: [facility] 05-06-2022 09:22-0500 Diastolic blood pressure 82 mm[Hg] Bella Mead MD Work Phone: [facility] 05-06-2022 09:22-0500 Heart rate 60 /min Bella Mead MD Work Phone: [facility] 05-06-2022 09:22-0500 Respiratory rate 16 /min Bella Mead MD Work Phone: [facility] 05-06-2022 09:22-0500 Systolic blood pressure 134 mm[Hg] Bella Mead MD Work Phone: [facility] 04-15-2022 10:50-0500 Body weight 80.11 kg Bella Mead MD Work Phone: [facility] 04-15-2022 10:50-0500 Diastolic blood pressure 78 mm[Hg] Bella Mead MD Work Phone: [facility] 04-15-2022 10:50-0500 Heart rate 82 /min Bella Meda MD Work Phone: [facility] 04-15-2022 10:50-0500 Respiratory rate 16 /min Bella Mead MD Work Phone: [facility] 04-15-2022 10:50-0500 Systolic blood pressure 118 mm[Hg] Bella Mead MD Work Phone: [facility] 03-15-2022 15:19-0500 Body weight 79.83 kg Drake Mccarthy MD Work Phone: [facility] 03-15-2022 15:19-0500 Diastolic blood pressure 80 mm[Hg] Drake Mccarthy MD Work Phone: [facility] 03-15-2022 15:19-0500 Heart rate 60 /min Drake Mccarthy MD Work Phone: [facility] 03-15-2022 15:19-0500 Systolic blood pressure 130 mm[Hg] Drake Mccarthy MD Work Phone: [facility] 11-03-2021 09:22-0400 Body weight 76.93 kg Bella Mead MD Work Phone: [facility] 11-03-2021 09:22-0400 Diastolic blood pressure 80 mm[Hg] Bella Mead MD Work Phone: [facility] 11-03-2021 09:22-0400 Heart rate 70 /min Bella Mead MD Work Phone: [facility] 11-03-2021 09:22-0400 Respiratory rate 16 /min Bella Mead MD Work Phone: [facility] 11-03-2021 09:22-0400 Systolic blood pressure 120 mm[Hg] Bella Mead MD Work Phone: [facility] 08-31-2021 10:02-0400 Body weight 78.93 kg Drake Mccarthy MD Work Phone: [facility] 08-31-2021 10:02-0400 Diastolic blood pressure 82 mm[Hg] Drake Mccarthy MD Work Phone: [facility] 08-31-2021 10:02-0400 Heart rate 56 /min Draek Mccarthy MD Work Phone: [facility] 08-31-2021 10:02-0400 SaO2% (BldA) [Mass fraction] 97 % Drake Mccarthy MD Work Phone: [facility] 08-31-2021 10:02-0400 Systolic blood pressure 164 mm[Hg] Drake Mccarthy MD Work Phone: [facility] Encounters Encounter Date Encounter Type Care Provider Facility Start: 04-11-2023 End: 04-11-2023 ambulatory BELLA MEAD Facility:[facility] Start: 11-09-2022 End: 11-09-2022 ambulatory BELLA MEAD Facility:[facility] Start: 11-09-2022 End: 11-09-2022 Patient encounter procedure Bella Mead MD Work Phone: [facility] Procedures Date Procedure Procedure Detail Performing Clinician Start: 04-15-2022 Ecg routine ecg w/le ast 12 lds i&r only [facility] Provider Start: 11-03-2021 Adult depression screening assessment Bella Mead MD Work Phone: Start: 10-30-2020 Adult depression screening assessment Theron Delong MD Work Phone: Start: 06-22-2019 History of coronary artery bypass grafting Hx of CABG Theron Delong MD Work Phone: Start: 06-05-2019 Antibody screen Plan of Treatment Date Care Activity Detail Author Start: 05-04-2027 LIPID SCREEN LIPID SCREEN [facility] Start: 02-07-2027 Urine microalbumin profile DTAP,TDAP,TD (2 - Td or Tdap) [facility] Start: 10-27-2026 LIPID SCREEN LIPID SCREEN [facility] Start: 05-05-2026 LIPID SCREEN LIPID SCREEN [facility] Start: 11-04-2025 DIABETES SCREEN DIABETES SCREEN [facility] Start: 05-04-2025 DIABETES SCREEN DIABETES SCREEN [facility] Start: 10-27-2024 DIABETES SCREEN DIABETES SCREEN [facility] Start: 05-05-2024 DIABETES SCREEN DIABETES SCREEN [facility] Start: 02-16-2024 Colonoscopy COLONOSCOPY [facility] Start: 02-16-2024 COLORECTAL CANCER SCREENING COLORECTAL CANCER SCREENING [facility] Start: 11-10-2023 ANNUAL PCP TEAM CHRONIC DISEASE VISIT ANNUAL PCP TEAM CHRONIC DISEASE VISIT [facility] Start: 11-10-2023 BP CONTROLLED (<130/80) BP CONTROLLED (<130/80) [facility] Start: 11-05-2023 Hepatitis B surface antibody level LDL CHOLESTEROL [facility] Start: 10-23-2023 ANNUAL PCP TEAM CHRONIC DISEASE VISIT ANNUAL PCP TEAM CHRONIC DISEASE VISIT [facility] Start: 05-12-2023 End: 07-12-2023 CBC W Auto Differential panel - Blood CBC + DIFF Lab Routine Essential hypertension 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 Hx of CABG Expected: 05/12/2023 (Approximate), Expires: 07/12/2023 [facility] Work Phone: Immunizations Immunization Date Immunization Notes Care Provider Fa cility 07-04-2020 COVID-19 vaccine, fu ll dose (MODERNA) Theron Delong MD Work Phone: [facility] 06-06-2020 COVID-19 vaccine, fu ll dose (MODERNA) Theron Delong MD Work Phone: [facility] 02-07-2017 tetanus toxoid, redu zev diphtheria toxoid, and acellular pertussis vaccine, adsorbed Theron Delong MD Work Phone: [facility] 02-01-2017 pneumococcal polysaccharide vaccine, 23 valent Theron Delong MD Work Phone: [facility] Work Phone: 01-27-2016 pneumococcal conjuga te vaccine, 13 valkatie Delong MD Work Phone: [facility] Work Phone: Payers Date Payer Category Payer Medicare A[employer] MEDICARE A ETNA MEDICARE PPO [id number] 2021-Present [phone] [address] [place] [address] PPO [id number] 2021 Medicare AET[employer] MEDICARE A ETNA MEDICARE PPO [id number] 2021-Present [phone] [address] [place] [address] PPO [id number] 2021 Medicare [id number] Social History Date Type Detail Facility Start: 03-15-2022 [facility] Work Phone: End: 12-27-1976 History of tobacco use Current smoker [facility] Work Phone: End: 12-27-1976 History of tobacco use Cigarette Smoker [facility] Work Phone: Start: 07-20-2021 End: 11-09-2022 Alcohol intake Current drinker of alcohol (finding) [facility] Start: 04-30-2021 End: 10-22-2022 History SDOH Alcohol Frequency 3 [facility] Start: 04-30-2021 End: 10-22-2022 History SDOH Alcohol Std Drinks 1 [facility] Start: 04-30-2021 End: 10-22-2022 History SDOH Social Connections Phone 2 [facility] Start: 04-30-2021 End: 10-22-2022 History SDOH Social Connections Get Together 4 [facility] Start: 04-30-2021 End: 10-22-2022 History SDOH Physical Activity DPW 5 [facility] Start: 04-30-2021 End: 10-22-2022 History SDOH Physical Activity MPS 9 [facility] Start: 04-23-2019 Education 19 [facility] Start: 1945 Sex Assigned At Not on file C [facility] Start: 08-09-2021 End: 03-15-2022 Exposure to SARS-CoV-2 (event) Not sure [facility] Start: 03-15-2022 End: 10-22-2022 Cigarettes smoked current (pack per day) - Reported 1 [facility] Start: 03-15-2022 Tobacco use and exposure Smoke less tobacco non-user [facility] Start: 03-15-2022 Tobacco [facility] Start: 10-22-2022 History SDOH Physica l Activity DPW 7 [facility] Start: 05-06-2022 End: 10-22-2022 Social connection and isolation panel [facility] Do you belong to any clubs or organizations such as adventism groups, unions, fraternal or athletic groups, or school groups? Yes [facility] Are you now , , , , never or living with a partner? [facility] How often to you hav e a drink containing alcohol? 2-4 times a month [facility] How many standard dr inks containing alcohol do you have on a typical day? 1 or 2 [facility] How often do you hav e 6 or more drinks on 1 occasion? Never [facility] How hard is it for y ou to pay for the very basics like food, housing, medical care, and heating Not hard at all [facility] Do you feel stress - tense, restless, nervous, or anxious, or unable to sleep at night because your mind is troubled all the time - these days [OSQ] To some extent [facility] (I/We) worried paulhari er (my/our) food would run out before (I/we) got money to buy more. Never true [facility] At any time in the p ast 12 months, were you homeless or living in skilled nursing [including now]? No [facility] Medical Equipment Procedure Code Equipment Code Equipment Original Text Equipment Identifier Dates Startex Thk1.65mm Rectangle Ptfe 4.5x6mm [facility] - [id number] Start: 06-06-2019 Clinical Notes 06-05-2019 to 04-11-2023 Bella Mead MD - 11/09/2022 9:20 AM EDTPatient InstructionsBella Mead MD - 10/22/2022 11:20 AM EDTMlennox Mead MD - 10/22/2022 11:20 AM EDTPatient Instructions Note Date & Type Note Facility 04-11-2023 Note HNO ID: [id number] Author: Drake Mccarthy MD Service: ? Author Type: Physician Type: Progress Notes Filed: 04/11/2023 3:03 PM Note Text: [facility]Y Cardiology ([facility]) [address] [address] OUTPATIENT VISIT DATE 04/11/2023 PRIMARY CARE PHYSICIAN: Bella Mead [address] [place] [address] HISTORY OF PRESENT ILLNESS: Mr. Loaiza is a 77 year old gentleman with a history of coronary artery disease prior coronary bypass grafting (May 2019), hypertension, and dyslipidemia who presents for routine follow-up. Since his last visit, he has been doing well. He has not had symptoms of chest pain or pressure. He still remains very active and exercises 3 to 4 days a week. He has not had symptoms concerning for CHF including PND, orthopnea, or lower extremity edema. He has not had symptoms of palpitations, lightheadedness, dizziness, or syncope. PAST MEDICAL HISTORY Diagnosis Date Dyslipidemia Dyspnea on exertion Former smoker, stopped smoking in distant past HTN (hypertension) Kidney stones HARLEY on CPAP Rosacea PAST SURGICAL HISTORY Procedure Laterality Date COLONOSCOPY 2005 COLONOSCOPY FLX DX W/COLLJ SPEC WHEN PFRMD 02/15/2019 Colonoscopy HERNIA REPAIR HX childhood and 2007 x3 PAST SURGICAL HISTORY OF lithotripsy, multiple PAST SURGICAL HISTORY OF laser prostate TONSILLECTOMY HX SOCIAL HISTORY Social History Tobacco Use Smoking status: Former Packs/day: 1.00 Years: 7.00 Additional pack years: 0.00 Total pack years: 7.00 Types: Cigarettes Quit date: 12/27/1976 Years since quittin.3 Smokeless tobacco: Never Tobacco comments: on and off Vaping Use Vaping Use: Never used Substance Use Topics Alcohol use: Yes Comment: occasional Drug use: No FAMILY HISTORY Problem Relation Age of Onset other (No CAD) Father Cancer Mother , lung Cancer Brother thyroid ALLERGIES: ALLERGIES No Known Allergies MEDICATIONS: losartan (COZAAR) 50 mg tablet Take 1 tablet by mouth once daily. hydrocortisone (ANUSOL-HC) 2.5 % rectal cream by RECTAL route twice daily. metoprolol tartrate, short acting, (LOPRESSOR) 50 mg tablet Take 1 tablet by mouth q 12 HR. rosuvastatin (CRESTOR) 40 mg tablet Take 1 tablet by mouth daily at bedtime. doxycycline 20 mg tablet Take 1 tablet by mouth twice daily. Cholecalciferol, Vitamin D3, 50 mcg (2,000 unit) cap Take by mouth. Azelaic Acid (FINACEA) 15 % gel Apply 1 application to affected area twice daily. Use a pea-sized amount for the face. omeprazole (PRILOSEC) 20 mg capsule Take 1 capsule by mouth daily before breakfast. 1/2 hr before meal. tamsulosin ER (FLOMAX) 0.4 mg Take 1 capsule by mouth twice daily. Dr. Shaffer. sennosides/docusate sodium (COLACE 2-IN-1 ORAL) Take by mouth. acetaminophen (TYLENOL) 500 mg tablet Take 2 tablets by mouth every 6 hours. aspirin, enteric coated (ASPIRIN, ENTERIC COATED) 81 mg EC tablet Take 2 tablets by mouth once daily. [DISCONTINUED] amiodarone (PACERONE) 200 mg tablet Take 1 tablet by mouth once daily. (Patient not taking: Reported on 07/18/2019 ) [DISCONTINUED] furosemide (LASIX) 20 mg tablet Take 1 tablet by mouth once daily. REVIEW OF SYSTEMS: Review of Systems Constitutional: Negative for chills, fever, malaise/fatigue and weight loss. HENT: Negative for hearing loss and sore throat. Eyes: Negative for blurred vision and double vision. Respiratory: Negative. Cardiovascular: Negative. Genitourinary: Negative for dysuria, frequency, hematuria and urgency. Musculoskeletal: Negative. Skin: Negative. Neurological: Negative for dizziness, seizures, loss of consciousness, weakness and headaches. Endo/Heme/Allergies: Negative for environmental allergies. Does not bruise/bleed easily. Psychiatric/Behavioral: Negative for depression. PHYSICAL EXAMINATION: BP 125/65 Pulse 59 Wt 155 lb (70.3kg) SpO2 97% General: Very pleasant gentleman sitting comfortable no apparent distress. He is alert and oriented x3 HEENT: Carotid upstrokes are brisk bilaterally without bruits no JVD appreciated. Pulmonary: Lungs are clear no rales, wheezes, rhonchi Cardiovascular: Normal S1, S2 with regular rate and rhythm. No murmurs, rubs, or gallops Extremities: Warm, well-perfused, no lower extremity edema. 2+ distal pulses CARDIOVASCULAR MEDICINE TESTING: Cardiac Catheterization [place] 06/05/2019: POST PROCEDURE DIAGNOSIS: [place] Coronary Artery Disease in the LAD (Severe) 99% proximal, RCA (RESEARCH NEUROPSYCHOLOGIST) and LCX (RESEARCH NEUROPSYCHOLOGIST) Normal carotid arteries Echocardiogram 06/05/2019 CONCLUSIONS: - Technically difficult exam due to suboptimal positioning and post cath. - Exam indication: Shortness of Breath - The left ventricle is normal in size. Left ventricular systoli (more content not included)... [facility] 11-09-2022 Note HNO ID: [id number] Author: Bella Mead MD Service: ? Author Type: Physician Type: Progress Notes Filed: 11/09/2022 11:46 AM Note Text: Chief Complaint Patient presents with: F/U 6 Month HPI Leonor Loaiza is a 77 year old male who presents here today for 6 month follow up. Pt seen for an acute virtual visit 10/22 due to Covid + home test. Pt received Paxlovid treatment. Pt at this time does feel better. Does note a sore throat today, but states it feels like the one he gets every summer as well as nasal congestion. Pt reports that he does get allergies. GI/Uro - Denies any stomach or bowel issues. Uses Stool Softener daily which helps keep BM's regular. Does have a hemorrhoid currently, minimal blood and itching. States it's external and popped out yesterday. Asking what he should use or do since he takes other medications. Following with Urology, Dr. Shaffer. Taking Flomax 0.4 mg BID. Family hx of thyroid cancer, leukemia, and prostate cancer. GERD: Stable without use of medication. Previously given Prilosec 20 mg. HTN AND Tachycardia: Taking Losartan 100 mg daily and Lopressor 50 mg BID. Checking BP at home, stating this has improved considerably. Average over the past month was 123/77, past 6 months 129/75. Denies any chest pain or sob. Reports intermittent episodes of lightheadedness. States this feels like a low blood sugar type symptom, will feel hungry when this occurs. Lipid/CAD/Glucose: Has lost 20 lbs since June, with a Program called [employer]. He's counting calories. The Program is nutritional based. Exercises by working out 3 days a week at they gym, some home exercises and hiking. Taking Crestor 40 mg daily, tolerating well. Pt follows with Cardio. HARLEY: Uses nightly Bipap, does well with this. Most days feels he's rested. Receives DME supplies through [employer]. Derm - Taking Doxycycline 20 mg bid and Gel for rosacea. Pt reports that lately he's been having increased irritability and feeling sad, noting its been the same over a period of time. Unsure if this is really depression or just everything going on with his and her ongoing health problems. Pt at this time would like to hold off on medication, but if it gets worse he will update office. Still going out and doing things such as hiking and exercising. HM - Has Adv Dir/Living Will. Discussed Shingrix vaccine, pt wants to check with insurance. Unable to receive Covid vaccine, recently Dx with Covid. Past medical history, appointments, medications, allergies reviewed. Previous Medical History PAST MEDICAL HISTORY Diagnosis Date Dyslipidemia Dyspnea on exertion Former smoker, stopped smoking in distant past HTN (hypertension) Kidney stones HARLEY on CPAP Rosacea Previous Surgical History PAST SURGICAL HISTORY Procedure Laterality Date COLONOSCOPY 2006 COLONOSCOPY FLX DX W/COLLJ SPEC WHEN PFRMD 02/15/2019 Colonoscopy HERNIA REPAIR HX childhood and 2007 x3 PAST SURGICAL HISTORY OF lithotripsy, multiple PAST SURGICAL HISTORY OF laser prostate TONSILLECTOMY HX Family History FAMILY HISTORY Problem Relation Age of Onset other (No CAD) Father Cancer Mother , lung Cancer Brother thyroid Patient Allergies ALLERGIES No Known Allergies Current Medications Current Outpatient Medications on File Prior to Visit Medication Sig metoprolol tartrate, short acting, (LOPRESSOR) 50 mg tablet Take 1 tablet by mouth q 12 HR. rosuvastatin (CRESTOR) 40 mg tablet Take 1 tablet by mouth daily at bedtime. losartan (COZAAR) 100 mg tablet Take 1 tablet by mouth once daily. doxycycline 20 mg tablet Take 1 tablet by mouth twice daily. Cholecalciferol, Vitamin D3, 50 mcg (2,000 unit) cap Take by mouth. Azelaic Acid (FINACEA) 15 % gel Apply 1 application to affected area twice daily. Use a pea-sized amount for the face. omeprazole (PRILOSEC) 20 mg capsule Take 1 capsule by mouth daily before breakfast. 1/2 hr before meal. tamsulosin ER (FLOMAX) 0.4 mg Take 1 capsule by mouth twice daily. Dr. Shaffer. sennosides/docusate sodium (COLACE 2-IN-1 ORAL) Take by mouth. acetaminophen (TYLENOL) 500 mg tablet Take 2 tablets by mouth every 6 hours. aspirin, enteric coated (ASPIRIN, ENTERIC COATED) 81 mg EC tablet Take 2 tablets by mouth once daily. [DISCONTINUED] amiodarone (PACERONE) 200 mg tablet Take 1 tablet by mouth once daily. (Patient not taking: Reported on 07/18/2019 ) [DISCONTINUED] furosemide (LASIX) 20 mg tablet Take 1 tablet by mouth once daily. No current facility-administered medications on file prior to visit. Social History Social History Tobacco Use Smoking status: Former Packs/day: 1.00 Years: 7.00 Total pack years: 7.00 Types: Cigarettes Quit date: 12/27/1976 Years since quittin.8 Smokeless tobacco: Never Tobacco comments: on and off Vaping Use Vaping Use: Never used Substance Use Topics Alcohol use: Yes (more content not included)... [facility] 11-09-2022 History of Present illness Narrative Chief Complaint Patient presents with: F/U 6 Month HPI Leonor Loaiza is a 77 year old male who presents here today for 6 month follow up. Pt seen for an acute virtual visit 10/22 due to Covid + home test. Pt received Paxlovid treatment. Pt at this time does feel better. Does note a sore throat today, but states it feels like the one he gets every summer as well as nasal congestion. Pt reports that he does get allergies. GI/Uro - Denies any stomach or bowel issues. Uses Stool Softener daily which helps keep BM's regular. Does have a hemorrhoid currently, minimal blood and itching. States it's external and popped out yesterday. Asking what he should use or do since he takes other medications. Following with Urology, Dr. Shaffer. Taking Flomax 0.4 mg BID. Family hx of thyroid cancer, leukemia, and prostate cancer. GERD: Stable without use of medication. Previously given Prilosec 20 mg. HTN & Tachycardia: Taking Losartan 100 mg daily and Lopressor 50 mg BID. Checking BP at home, stating this has improved considerably. Average over the past month was 123/77, past 6 months 129/75. Denies any chest pain or sob. Reports intermittent episodes of lightheadedness. States this feels like a low blood sugar type symptom, will feel hungry when this occurs. Lipid/CAD/Glucose: Has lost 20 lbs since June, with a Program called [employer]. He's counting calories. The Program is nutritional based. Exercises by working out 3 days a week at they gym, some home exercises and hiking. Taking Crestor 40 mg daily, tolerating well. Pt follows with Cardio. HARLEY: Uses nightly Bipap, does well with this. Most days feels he's rested. Receives DME supplies through [employer]. Derm - Taking Doxycycline 20 mg bid and Gel for rosacea. Pt reports that lately he's been having increased irritability and feeling sad, noting its been the same over a period of time. Unsure if this is really depression or just everything going on with his and her ongoing health problems. Pt at this time would like to hold off on medication, but if it gets worse he will update office. Still going out and doing things such as hiking and exercising. HM - Has Adv Dir/Living Will. Discussed Shingrix vaccine, pt wants to check with insurance. Unable to receive Covid vaccine, recently Dx with Covid. Past medical history, appointments, medications, allergies reviewed. Previous Medical History PAST MEDICAL HISTORY Diagnosis Date Dyslipidemia Dyspnea on exertion Former smoker, stopped smoking in distant past HTN (hypertension) Kidney stones HARLEY on CPAP Rosacea Previous Surgical History PAST SURGICAL HISTORY Procedure Laterality Date COLONOSCOPY 2006 COLONOSCOPY FLX DX W/COLLJ SPEC WHEN PFRMD 02/15/2019 Colonoscopy HERNIA REPAIR HX childhood and 2007 x3 PAST SURGICAL HISTORY OF lithotripsy, multiple PAST SURGICAL HISTORY OF laser prostate TONSILLECTOMY HX Family History FAMILY HISTORY Problem Relation Age of Onset other (No CAD) Father Cancer Mother , lung Cancer Brother thyroid Patient Allergies ALLERGIES No Known Allergies Current Medications Current Outpatient Medications on File Prior to Visit Medication Sig metoprolol tartrate, short acting, (LOPRESSOR) 50 mg tablet Take 1 tablet by mouth q 12 HR. rosuvastatin (CRESTOR) 40 mg tablet Take 1 tablet by mouth daily at bedtime. losartan (COZAAR) 100 mg tablet Take 1 tablet by mouth once daily. doxycycline 20 mg tablet Take 1 tablet by mouth twice daily. Cholecalciferol, Vitamin D3, 50 mcg (2,000 unit) cap Take by mouth. Azelaic Acid (FINACEA) 15 % gel Apply 1 application to affected area twice daily. Use a pea-sized amount for the face. omeprazole (PRILOSEC) 20 mg capsule Take 1 capsule by mouth daily before breakfast. 1/2 hr before meal. tamsulosin ER (FLOMAX) 0.4 mg Take 1 capsule by mouth twice daily. Dr. Shaffer. sennosides/docusate sodium (COLACE 2-IN-1 ORAL) Take by mouth. acetaminophen (TYLENOL) 500 mg tablet Take 2 tablets by mouth every 6 hours. aspirin, enteric coated (ASPIRIN, ENTERIC COATED) 81 mg EC tablet Take 2 tablets by mouth once daily. [DISCONTINUED] amiodarone (PACERONE) 200 mg tablet Take 1 tablet by mouth once daily. (Patient not taking: Reported on 07/18/2019 ) [DISCONTINUED] furosemide (LASIX) 20 mg tablet Take 1 tablet by mouth once daily. No current facility-administered medications on file prior to visit. Social History Social History Tobacco Use Smoking status: Former Packs/day: 1.00 Years: 7.00 Total pack years: 7.00 Types: Cigarettes Quit date: 12/27/1976 Years since quittin.8 Smokeless tobacco: Never Tobacco comments: on and off Vaping Use Vaping Use: Never used Substance Use Topics Alcohol use: Yes Comment: occasional Drug use: No EXAM: BP 124/78 (BP Site: Left Arm, BP Position: Sitting, BP Cuff Size: Regular Adult) Pulse (!) 56 Resp 16 Wt 68.4 kg (150 lb 12.8 oz) BMI 23.27 kg/m General Appearance: Well appearing, alert, in no acute distress, well-hydrated, well nourished.. Lungs: Lungs clear to auscultation. No wheezing, rhonchi, rales.. Heart: RRR without murmur, gallop, or rubs. No ectopy. Rectal: Deferred exam, pt discussed external hemorrhoid. Health Maintenance List BP CONTROLLED (<130/80) Never done SHINGRIX VACCINE(1 of 2) Never done COVID-19 VACCINE(5 - Moderna series) due on 01/24/2022 ADVANCE DIRECTIVE DISCUSSION Never done HEPATITIS C SCREENING due on 05/06/2023 INFLUENZA(1) due on 12/24/2022 LDL CHOLESTEROL due on 05/04/2023 ANNUAL PCP TEAM CHRONIC DISEASE VISIT due on 10/23/2023 DIABETES SCREEN due on 05/04/2025 DTAP,TDAP,TD(2 - Td or Tdap) due on 02/07/2027 DEPRESSION ASSESSMENT Completed PNEUMOCOCCAL: 65+ Completed COLORECTAL CANCER SCREENING Discontinued Data reviewed Appointment on 11/04/2022 Component Date Value Protein, Total 11/04/2022 6.6 Albumin 11/04/2022 4.3 Calcium, Total 11/04/2022 9.0 Bilirubin, Total 11/04/2022 0.4 Alkaline Phosphatase 11/04/2022 45 AST 11/04/2022 27 ALT 11/04/2022 26 Glucose 11/04/2022 93 BUN 11/04/2022 17 Creatinine 11/04/2022 0.95 Sodium 11/04/2022 139 Potassium 11/04/2022 4.1 Chloride 11/04/2022 105 CO2 11/04/2022 26 Anion Gap 11/04/2022 8 (L) Estimated Glomerular Stefan* 11/04/2022 83 Cholesterol, Total 11/04/2022 146 Triglyceride 11/04/2022 102 HDL Cholesterol 11/04/2022 41 Non HDL Cholesterol 11/04/2022 105 Fasting Time 11/04/2022 10 VLDL Cholesterol 11/04/2022 20 TC:HDL Ratio 11/04/2022 3.56 LDL Cholesterol 11/04/2022 85 LDL:HDL Ratio 11/04/2022 2.07 Hemoglobin A1C 11/04/2022 5.5 Estimated Average Glucose 11/04/2022 111 ASSESSMENT/PLAN: 1. Essential hypertension - ICD9: 401.9, ICD10: I10 (primary diagnosis) - Controlled - Continue current medications - If continuing to get lightheaded episodes, may cut back on medication. - Recommend home blood pressure monitoring, to bring results to next visit - Encouraged sodium restriction, DASH or Mediterranean diet - Recommend regular aerobic exercise 2. Other hyperlipidemia - ICD9: 272.4, ICD10: E78.49 - Stable on current regimen - Cont watching diet/exercise 3. Elevated glucose - ICD9: 790.29, ICD10: R73.09 - Stable w/out medication - Cont watching diet/exercise 4. 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 5. Hx of CABG - ICD9: V45.81, ICD10: Z95.1 - Stable - Continue current medication regimen. 6. GERD without esophagitis - ICD9: 530.81, ICD10: K21.9 - Stable without use of medication 7. HARLEY on CPAP - ICD9: 327.23, V46.8, ICD10: G47.33 - Stable with use of Bipap 8. Hemorrhoids, unspecified hemorrhoid type - ICD9: 455.6, ICD10: K64.9 - Rx for Anusol 6 mo f/u with labs. I agree with the Chief Complaint, ROS, and Past Histories independently gathered by the clinical senior support engineer and the remaining scribed note accurately describes my personal service to the patient. Medical Decision Making: Problems: Moderate: 2+ stable chronic illnesses Data: Unique test result(s) reviewed: 3+ Unique test(s) ordered: 3+ Risk: Moderate: Drug management Medical Decision Making Level: 4 - Moderate Bella Mead MD The documentation for this note was completed by Jocelyn Kee Ma acting as scribe for Bella Mead MD. November 09, 2022 9:32 AM. Jocelyn Kee Ma documented in this encounter [facility] 10-22-2022 Note HNO ID: [id number] Author: Bella Mead MD Service: ? Author Type: Physician Type: Progress Notes Filed: 10/22/2022 11:38 AM Note Text: Nirmatrelvir/Ritonavir (Paxlovid) Eligibility and Patient Discussion [facility] Formulary Restriction Criteria: Adult outpatients 18 years and older with ALL of the following: [x] Patient has symptoms for 5 days or less [x] Not requiring hospitalization at any time for management of COVID-19 [x] Not requiring supplemental oxygen or a change in baseline supplemental oxygen [x] Not utilized for pre-exposure or post-exposure prophylaxis for prevention of COVID-19 [x] Patient does not have severe renal impairment (eGFR < 30 mL/min) or severe hepatic impairment (Child-Reddy Class C) [x] Meeting at least one of the criteria for high risk of progression to severe COVID-19: [x] Age over 65 years [] Cancer [] Chronic kidney disease [] Chronic liver disease [] Chronic lung diseases, including cystic fibrosis [] Dementia or other neurological conditions [] Diabetes (type 1 or type 2) [] Disabilities, including Down syndrome and neurodevelopmental disorders [x] Heart conditions [] HIV infection [] Immunocompromised state [] Mental health conditions [] Medical related technological dependence (tracheostomy, gastrostomy, or positive pressure ventilation (not related to COVID) [] Overweight and obesity (BMI greater or equal to 25 for adults) [] Physical inactivity [] [] Sickle cell disease or thalassemia [] Smoking, current or former [] Solid organ or blood stem cell transplant [] Stroke or cerebrovascular disease [] Substance use disorders [] Tuberculosis [] People from racial and ethnic minority groups Criteria above are met: Yes Date of Symptom Onset: 10/19/22 Patient received COVID vaccine: Yes Drug-Drug interactions reviewed: Yes. Drug interactions were identified and the following actions were taken hold crestor and flomax. I have discussed the use of the investigational therapeutic, nirmatrelvir/ritonavir, for the treatment of mild to moderate COVID-19 and its use under Emergency Use Authorization with the patient. The patient was informed that nirmatrelvir/ritonavir is not an FDA approved drug and that it is authorized for use under this Emergency Use Authorization. The patient was also informed of the significant known benefits and potential risks of nirmatrelvir/ritonavir, and the extent to which such potential risks and benefits are unknown. The patient was informed that there is mandatory reporting of all medication errors and serious adverse events potentially related to nirmatrelvir/ritonavir treatment within 7 calendar days from the onset of the event and that events up to 28 days after completion of therapy need to be reported. The discussion included alternatives to receiving nirmatrelvir/ritonavir, including clinical trials, and potential the risks and benefits of those alternatives. The patient was provided electronically with the Fact Sheet for Patients, Parents and Caregivers . The patient was also instructed that in addition to the treatment with nirmatrelvir/ritonavir, he/she should continue to self-isolate and use infection control measures (e.g., wear mask, isolate, social distance, avoid sharing personal items, clean and disinfect high touch surfaces, and frequent handwashing) according to CDC guidelines. The patient stated understanding and gave verbal consent to proceeding with nirmatrelvir/ritonavir treatment. Bella Mead MD October 22, 2022 11:37 AM [facility] 10-22-2022 Note HNO ID: [id number] Author: Bella Mead MD Service: ? Author Type: Physician Type: Progress Notes Filed: 10/22/2022 11:43 AM Note Text: Chief Complaint Patient presents with: Covid Positive HPI:This Team Access Model visit is a virtual encounter. It required patient-provider interaction for the medical decision making as documented below.Patient was offered a virtual/telemedicine appointment in lieu of an office visit due to recommendations to reduce patient exposure to COVID-19. Patient is aware of limitations of performing the visit without a face to face visit in the office setting and agrees. I have communicated my name and active licensure. The patient's identity and physical location were verified at the time of this visit. Either the patient or their legal mill representative has been informed of the risks and benefits of -- and alternatives to -- treatment through a remote evaluation and consents to proceed with the evaluation remotely. Pt completing a virtual visit today due to positive home covid test on 10/21/22. Pt was out of town on 10/15/22-10/18/22 in [place] at his niece's wedding. He believes this is where he contracted this. Symptoms started on 10/19/22 in the afternoon. Pt currently has symptoms of stuffy runny nose, cough, body aches, skin feels very sensitive and low grade fever. Highest temp he's had is 99.1. He's taken Tylenol and Delsum for the cough. Pt wondering if he qualifies for Paxlovid. Past medical history, appointments, medications, allergies reviewed. Previous Medical History PAST MEDICAL HISTORY Diagnosis Date Dyslipidemia Dyspnea on exertion Former smoker, stopped smoking in distant past HTN (hypertension) Kidney stones HARLEY on CPAP Rosacea Previous Surgical History PAST SURGICAL HISTORY Procedure Laterality Date COLONOSCOPY 2005 COLONOSCOPY FLX DX W/COLLJ SPEC WHEN PFRMD 02/15/2019 Colonoscopy HERNIA REPAIR HX childhood and 2007 x3 PAST SURGICAL HISTORY OF lithotripsy, multiple PAST SURGICAL HISTORY OF laser prostate TONSILLECTOMY HX Family History FAMILY HISTORY Problem Relation Age of Onset other (No CAD) Father Cancer Mother , lung Cancer Brother thyroid Patient Allergies ALLERGIES No Known Allergies Current Medications Current Outpatient Medications on File Prior to Visit Medication Sig metoprolol tartrate, short acting, (LOPRESSOR) 50 mg tablet Take 1 tablet by mouth q 12 HR. rosuvastatin (CRESTOR) 40 mg tablet Take 1 tablet by mouth daily at bedtime. losartan (COZAAR) 100 mg tablet Take 1 tablet by mouth once daily. doxycycline 20 mg tablet Take 1 tablet by mouth twice daily. Cholecalciferol, Vitamin D3, 50 mcg (2,000 unit) cap Take by mouth. Azelaic Acid (FINACEA) 15 % gel Apply 1 application to affected area twice daily. Use a pea-sized amount for the face. omeprazole (PRILOSEC) 20 mg capsule Take 1 capsule by mouth daily before breakfast. 1/2 hr before meal. tamsulosin ER (FLOMAX) 0.4 mg Take 1 capsule by mouth twice daily. Dr. Shaffer. sennosides/docusate sodium (COLACE 2-IN-1 ORAL) Take by mouth. acetaminophen (TYLENOL) 500 mg tablet Take 2 tablets by mouth every 6 hours. aspirin, enteric coated (ASPIRIN, ENTERIC COATED) 81 mg EC tablet Take 2 tablets by mouth once daily. [DISCONTINUED] amiodarone (PACERONE) 200 mg tablet Take 1 tablet by mouth once daily. (Patient not taking: Reported on 07/18/2019 ) [DISCONTINUED] furosemide (LASIX) 20 mg tablet Take 1 tablet by mouth once daily. No current facility-administered medications on file prior to visit. Social History Social History Tobacco Use Smoking status: Former Packs/day: 1.00 Years: 7.00 Pack years: 7.00 Types: Cigarettes Quit date: 12/27/1976 Years since quittin.8 Smokeless tobacco: Never Tobacco comments: on and off Vaping Use Vaping Use: Never used Substance Use Topics Alcohol use: Yes Comment: occasional Drug use: No EXAM: There were no vitals taken for this visit. NAD, mild congestion Health Maintenance List BP CONTROLLED (<130/80) Never done SHINGRIX VACCINE(1 of 2) Never done COVID-19 VACCINE(5 - Booster for Moderna series) due on 01/24/2022 ADVANCE DIRECTIVE DISCUSSION Never done HEPATITIS C SCREENING due on 05/06/2023 INFLUENZA(Season Ended) due on 12/24/2022 LDL CHOLESTEROL due on 05/04/2023 ANNUAL PCP TEAM CHRONIC DISEASE VISIT due on 05/06/2023 DIABETES SCREEN due on 05/04/2025 DTAP,TDAP,TD(2 - Td or Tdap) due on 02/07/2027 DEPRESSION ASSESSMENT Completed PNEUMOCOCCAL: 65+ Completed Data reviewed None ASSESSMENT/PLAN: 1. COVID - ICD9: 079.89, ICD10: U07.1 Symptomatic treatment Use Paxlovid Call if questions Reviewed isolation guidelines - NIRMATRELVIR 300 MG (150 MG X2)-RITONAVIR 100 MG TABLET,DOSE PACK Follow up prn Bella Mead MD [facility] 10-22-2022 Instructions Bella Mead MD - 10/22/2022 11:23 AM EDT Images from the original note were not included. FACT SHEET FOR PATIENTS, PARENTS, AND CAREGIVERS EMERGENCY USE AUTHORIZATION (EUA) OF PAXLOVID FOR CORONAVIRUS DISEASE 2019 (COVID-19) You are being given this Fact Sheet because your healthcare provider believes it is necessary to provide you with PAXLOVID for the treatment of qgum-pb-jewhjwiv coronavirus disease (COVID-19) caused by the SARS-CoV-2 virus. This Fact Sheet contains information to help you understand the risks and benefits of taking the PAXLOVID you have received or may receive. The [place].S. Food and Drug Administration (FDA) has issued an Emergency Use Authorization (EUA) to make PAXLOVID available during the COVID-19 pandemic (for more details about an EUA please see What is an Emergency Use Authorization? at the end of this document). PAXLOVID is not an FDA-approved medicine in the [place]. Read this Fact Sheet for information about PAXLOVID. Talk to your healthcare provider about your options or if you have any questions. It is your choice to take PAXLOVID. What is COVID-19? COVID-19 is caused by a virus called a coronavirus. You can get COVID-19 through close contact with another person who has the virus. COVID-19 illnesses have ranged from very zarl-cy-vasugh, including illness resulting in . While information so far suggests that most COVID-19 illness is mild, serious illness can happen and may cause some of your other medical conditions to become worse. Older people and people of all ages with severe, long lasting (chronic) medical conditions like heart disease, lung disease, and diabetes, for example seem to be at higher risk of being hospitalized for COVID-19. What is PAXLOVID? PAXLOVID is an investigational medicine used to treat adults and children [12 years of age and older weighing at least 88 pounds (40 kg)] with a current diagnosis of bzfu-gl-xncpzmxu COVID-19 and who are at high risk for progression to severe COVID-19, including hospitalization or . PAXLOVID is investigational because it is still being studied. There is limited information about the safety and effectiveness of using PAXLOVID to treat people with uxss-re-mohilqnr COVID-19. The FDA has authorized the emergency use of PAXLOVID for the treatment of okqz-kg-hxtufoyv COVID-19 in adults and children [12 years of age and older weighing at least 88 pounds (40 kg)] with a current diagnosis of iaqi-jh-ssitmnww COVID-19 and who are at high risk for progression to severe COVID-19, including hospitalization or , under an EUA. 1 Revised: 10 July 2021 What should I tell my healthcare provider before I take PAXLOVID? Tell your healthcare provider if you: Have any allergies Have liver or kidney disease Are or plan to become Are a child Have any serious illnesses Some medicines may interact with PAXLOVID and may cause serious side effects. Tell your healthcare provider about all the merdicines you take, including prescription and vvhb-vqj-iytgjue medicines, vitamins, and herbal supplements. Your healthcare provider can tell you if it is safe to take PAXLOVID with other medicines. You can ask your healthcare provider or pharmacist for a list of medicines that interact with PAXLOVID Do not start taking a new medicine without telling your healthcare provider. Tell your healthcare provider if you are taking combined hormonal contraceptive. PAXLOVID may affect how your control pills work. Females who are able to become should use another effective alternative form of contraception or an additional barrier method of contraception. Talk to your healthcare provider if you have any questions about contraceptive methods that might be right for you. How do I take PAXLOVID? PAXLOVID consists of 2 medicines: nirmatrelvir tablets and ritonavir tablets. The 2 medicines are taken together 2 times each day for 5 days Nirmatrelvir is an oval, pink tablet. Ritonavir is a white or off-white tablet. PAXLOVID is available in 2 Dose Packs (see Figures A and B below). Your healthcare provider will prescribe the PAXLOVID Dose Pack that is right for you. If you have kidney disease, your healthcare provider may prescribe a lower dose (see Figure B). Talk to your healthcare provider to make sure you receive the correct Dose Pack. Do not remove your PAXLOVID tablets from the blister card before you are ready to take your dose. Take your first dose of PAXLOVID in the Morning or Evening, depending on when you order picker your prescription, or as recommended by your healthcare provider. Swallow the tablets whole. Do not chew, break, or crush the tablets. Take PAXLOVID with or without food. Do not stop taking PAXLOVID without talking to your healthcare provider, even if you feel better. If you miss a dose of PAXLOVID within 8 hours of the time it is usually taken, take it as soon as you remember. If you miss a dose by more than 8 hours, skip the missed dose and take the next dose at your regular time. Do not take 2 doses of PAXLOVID at the same time. If you take too much PAXLOVID, call your healthcare provider or go to the nearest hospital emergency room right away. If you are taking a ritonavir-or cobicistat-containing medicine to treat hepatitis C or Human Immunodeficiency Virus (HIV), you should continue to take your medicine as prescribed by your healthcare provider. Talk to your healthcare provider if you do not feel better or if you feel worse after 5 days. Who should generally not take PAXLOVID? Do not take PAXLOVID if: You are allergic to nirmatrelvir, ritonavir, or any of the ingredients in PAXLOVID You are taking any of the following medicines: alfuzosin flecainide primidone amiodarone filbanserin propafenone apalutamide ivabradine quinidine carbamazepine lomitapide ranolazine colchicine lovastatin ranolazine dihydroergotamine lumacaftor/ivacaftor rifampin dronedarone lurasidone Pepe s Wort (hypericum perforatium) eletriptan methylergonovine simvastatin eplerenone midazolam (oral) sildenafil (Revatio ) for pulmonary arterial hypertension ergotamine naloxegol silodosin finerenone phenobarbital triazolam flecainide phenytoin ubrogepant pimozide voclosporin Taking PAXLOVID with these medicines may cause serious or life-threatening side effects or affect how PAXLOVID works. These are not the only medicines that may cause serious side effects if taken with PAXLOVID. PAXLOVID may increase or decrease the levels of multiple other medicines. It is very important to tell your healthcare provider about all of the medicines you are taking because additional laboratory tests or changes in the dose of your other medicines may be necessary while you are taking PAXLOVID. Your healthcare provider may also tell you about specific symptoms to watch out for that may indicate that you need to stop or decrease the dose of some of your other medicines. What are the important possible side effects of PAXLOVID? Possible side effects of PAXLOVID are: Allergic Reactions. Allergic reactions, including severe allergic reactions (known as anaphylaxis ), can happen in people taking PAXLOVID, even after only 1 dose. Stop taking PAXLOVID and call your healthcare provider right away if you get any of the following symptoms of an allergic reaction: hives trouble swallowing or breathing swelling of the mouth, lips, or face throat tightness hoarseness skin rash Liver Problems. Tell your healthcare provider right away if you have any of these signs and symptoms of liver problems: loss of appetite, yellowing of your skin and the whites of eyes (jaundice), dark-colored urine, pale colored stools and itchy skin, stomach area (abdominal) pain. Resistance to HIV Medicines. If you have untreated HIV infection, PAXLOVID may lead to some HIV medicines not working as well in the future. Other possible side effects include: altered sense of taste diarrhea high blood pressure muscle aches abdominal pain nausea feeling generally unwell These are not all the possible side effects of PAXLOVID. Not many people have taken PAXLOVID. Serious and unexpected side effects may happen. PAXLOVID is still being studied, so it is possible that all of the risks are not known at this time. What other treatment choices are there? Veklury (remdesivir) is FDA-approved for the treatment of yhlg-ov-rxllsnxj COVID-19 in certain adults and children. Talk with your doctor to see if Veklury is appropriate for you. Like PAXLOVID, FDA may also allow for the emergency use of other medicines to treat people with COVID-19. Go to https://www.fda.gov/emergency-pre mqdlsuxud-thi-liitzfun/mcm-legal- bmoceqwdpx-szb-elazpa-framework/e jzoycrub-qay-goqwbrmikrupq for information on the emergency use of other medicines that are authorized by FDA to treat people with COVID-19. Your healthcare provider may talk with you about clinical trials for which you may be eligible. It is your choice to be treated or not to be treated with PAXLOVID. Should you decide not to receive it or for your child not to receive it, it will not change your standard medical care. What if I am or ? There is canoe builder treating women or mothers with PAXLOVID. For a mother and unborn baby, the benefit of taking PAXLOVID may be greater than the risk from the treatment. If you are , discuss your options and specific situation with your healthcare provider. It is recommended that you use effective barrier contraception or do not have sexual activity while taking PAXLOVID. If you are , discuss your options and specific situation with your healthcare provider. How do I report side effects or problems with the appearance or packaging of PAXLOVID? Contact your healthcare provider if you have any side effects that bother you or do not go away. Report side effects or problems with the appearance or packaging of PAXLOVID (see Figures A and B above for examples of PAXLOVID Dose Packs) to [employer] at www.fda.gov/medwatch or call 1-579-YJL0424 or you can report side effects to [employer] at the contact information provided below. Website Fax number Telephone number Volley How should I store PAXLOVID? Store PAXLOVID tablets at room temperature, between 68?F to 77?F (20?C to 25?C). How can I learn more about COVID-19? Ask your healthcare provider. Visit https://www.cdc.gov/COVID19 Contact your local or state public health department. What is an Emergency Use Authorization (EUA)? The [place] FDA has made PAXLOVID available under an emergency access mechanism called an Emergency Use Authorization (EUA). The EUA is supported by a Quarrying Manager of Health and Human Service (HHS) declaration that circumstances exist to justify the emergency use of drugs and biological products during the COVID-19 pandemic. PAXLOVID for the treatment of tkhg-bf-dlleniqf COVID-19 in adults and children [12 years of age and older weighing at least 88 pounds (40 kg)] who are at high risk for progression to severe COVID-19, including hospitalization or , has not undergone the same type of review as an FDA-approved product. In issuing an EUA under the COVID-19 public health emergency, the FDA has determined, among other things, that based on the total amount of scientific evidence available including data from adequate and well-controlled clinical trials, if available, it is reasonable to believe that the product may be effective for diagnosing, treating, or preventing COVID-19, or a serious or life-threatening disease or condition caused by COVID-19; that the known and potential benefits of the product, when used to diagnose, treat, or prevent such disease or condition, outweigh the known and potential risks of such product; and that there are no adequate, approved, and available alternatives. All of these criteria must be met to allow for the product to be used in the treatment of patients during the COVID-19 pandemic. The EUA for PAXLOVID is in effect for the duration of the COVID-19 declaration justifying emergency use of this product, unless terminated or revoked (after which the products may no longer be used under the EUA). Additional Information For general questions, visit the website or call the telephone number provided below. Website Telephone number [email or web address] (9-932-P80-PACK) You can also go to www.[employer] book or call for more information. [employer] Distributed by [employer] [place] [address] [id number] Revised: 05/2022 documented in this encounter [facility] 10-22-2022 History of Present illness Narrative Chief Complaint Patient presents with: Covid Positive HPI:This Team Access Model visit is a virtual encounter. It required patient-provider interaction for the medical decision making as documented below.Patient was offered a virtual/telemedicine appointment in lieu of an office visit due to recommendations to reduce patient exposure to COVID-19. Patient is aware of limitations of performing the visit without a face to face visit in the office setting and agrees. I have communicated my name and active licensure. The patient's identity and physical location were verified at the time of this visit. Either the patient or their legal mill representative has been informed of the risks and benefits of -- and alternatives to -- treatment through a remote evaluation and consents to proceed with the evaluation remotely. Pt completing a virtual visit today due to positive home covid test on 10/21/22. Pt was out of town on 10/15/22-10/18/22 in [place] at his niece's wedding. He believes this is where he contracted this. Symptoms started on 10/19/22 in the afternoon. Pt currently has symptoms of stuffy runny nose, cough, body aches, skin feels very sensitive and low grade fever. Highest temp he's had is 99.1. He's taken Tylenol and Delsum for the cough. Pt wondering if he qualifies for Paxlovid. Past medical history, appointments, medications, allergies reviewed. Previous Medical History PAST MEDICAL HISTORY Diagnosis Date Dyslipidemia Dyspnea on exertion Former smoker, stopped smoking in distant past HTN (hypertension) Kidney stones HARLEY on CPAP Rosacea Previous Surgical History PAST SURGICAL HISTORY Procedure Laterality Date COLONOSCOPY 2005 COLONOSCOPY FLX DX W/COLLJ SPEC WHEN PFRMD 02/15/2019 Colonoscopy HERNIA REPAIR HX childhood and 2007 x3 PAST SURGICAL HISTORY OF lithotripsy, multiple PAST SURGICAL HISTORY OF laser prostate TONSILLECTOMY HX Family History FAMILY HISTORY Problem Relation Age of Onset other (No CAD) Father Cancer Mother , lung Cancer Brother thyroid Patient Allergies ALLERGIES No Known Allergies Current Medications Current Outpatient Medications on File Prior to Visit Medication Sig metoprolol tartrate, short acting, (LOPRESSOR) 50 mg tablet Take 1 tablet by mouth q 12 HR. rosuvastatin (CRESTOR) 40 mg tablet Take 1 tablet by mouth daily at bedtime. losartan (COZAAR) 100 mg tablet Take 1 tablet by mouth once daily. doxycycline 20 mg tablet Take 1 tablet by mouth twice daily. Cholecalciferol, Vitamin D3, 50 mcg (2,000 unit) cap Take by mouth. Azelaic Acid (FINACEA) 15 % gel Apply 1 application to affected area twice daily. Use a pea-sized amount for the face. omeprazole (PRILOSEC) 20 mg capsule Take 1 capsule by mouth daily before breakfast. 1/2 hr before meal. tamsulosin ER (FLOMAX) 0.4 mg Take 1 capsule by mouth twice daily. Dr. Shaffer. sennosides/docusate sodium (COLACE 2-IN-1 ORAL) Take by mouth. acetaminophen (TYLENOL) 500 mg tablet Take 2 tablets by mouth every 6 hours. aspirin, enteric coated (ASPIRIN, ENTERIC COATED) 81 mg EC tablet Take 2 tablets by mouth once daily. [DISCONTINUED] amiodarone (PACERONE) 200 mg tablet Take 1 tablet by mouth once daily. (Patient not taking: Reported on 07/18/2019 ) [DISCONTINUED] furosemide (LASIX) 20 mg tablet Take 1 tablet by mouth once daily. No current facility-administered medications on file prior to visit. Social History Social History Tobacco Use Smoking status: Former Packs/day: 1.00 Years: 7.00 Pack years: 7.00 Types: Cigarettes Quit date: 12/27/1976 Years since quittin.8 Smokeless tobacco: Never Tobacco comments: on and off Vaping Use Vaping Use: Never used Substance Use Topics Alcohol use: Yes Comment: occasional Drug use: No EXAM: There were no vitals taken for this visit. NAD, mild congestion Health Maintenance List BP CONTROLLED (<130/80) Never done SHINGRIX VACCINE(1 of 2) Never done COVID-19 VACCINE(5 - Booster for Moderna series) due on 01/24/2022 ADVANCE DIRECTIVE DISCUSSION Never done HEPATITIS C SCREENING due on 05/06/2023 INFLUENZA(Season Ended) due on 12/24/2022 LDL CHOLESTEROL due on 05/04/2023 ANNUAL PCP TEAM CHRONIC DISEASE VISIT due on 05/06/2023 DIABETES SCREEN due on 05/04/2025 DTAP,TDAP,TD(2 - Td or Tdap) due on 02/07/2027 DEPRESSION ASSESSMENT Completed PNEUMOCOCCAL: 65+ Completed Data reviewed None ASSESSMENT/PLAN: 1. COVID - ICD9: 079.89, ICD10: U07.1 Symptomatic treatment Use Paxlovid Call if questions Reviewed isolation guidelines - NIRMATRELVIR 300 MG (150 MG X2)-RITONAVIR 100 MG TABLET,DOSE PACK Follow up prn Bella Mead MD Nirmatrelvir/Ritonavir (Paxlovid) Eligibility and Patient Discussion [facility] Formulary Restriction Criteria: Adult outpatients 18 years and older with ALL of the following: [x] Patient has symptoms for 5 days or less [x] Not requiring hospitalization at any time for management of COVID-19 [x] Not requiring supplemental oxygen or a change in baseline supplemental oxygen [x] Not utilized for pre-exposure or post-exposure prophylaxis for prevention of COVID-19 [x] Patient does not have severe renal impairment (eGFR < 30 mL/min) or severe hepatic impairment (Child-Reddy Class C) [x] Meeting at least one of the criteria for high risk of progression to severe COVID-19: [x] Age over 65 years [] Cancer [] Chronic kidney disease [] Chronic liver disease [] Chronic lung diseases, including cystic fibrosis [] Dementia or other neurological conditions [] Diabetes (type 1 or type 2) [] Disabilities, including Down syndrome and neurodevelopmental disorders [x] Heart conditions [] HIV infection [] Immunocompromised state [] Mental health conditions [] Medical related technological dependence (tracheostomy, gastrostomy, or positive pressure ventilation (not related to COVID) [] Overweight and obesity (BMI greater or equal to 25 for adults) [] Physical inactivity [] [] Sickle cell disease or thalassemia [] Smoking, current or former [] Solid organ or blood stem cell transplant [] Stroke or cerebrovascular disease [] Substance use disorders [] Tuberculosis [] People from racial and ethnic minority groups Criteria above are met: Yes Date of Symptom Onset: 10/19/22 Patient received COVID vaccine: Yes Drug-Drug interactions reviewed: Yes. Drug interactions were identified and the following actions were taken hold crestor and flomax. I have discussed the use of the investigational therapeutic, nirmatrelvir/ritonavir, for the treatment of mild to moderate COVID-19 and its use under Emergency Use Authorization with the patient. The patient was informed that nirmatrelvir/ritonavir is not an FDA approved drug and that it is authorized for use under this Emergency Use Authorization. The patient was also informed of the significant known benefits and potential risks of nirmatrelvir/ritonavir, and the extent to which such potential risks and benefits are unknown. The patient was informed that there is mandatory reporting of all medication errors and serious adverse events potentially related to nirmatrelvir/ritonavir treatment within 7 calendar days from the onset of the event and that events up to 28 days after completion of therapy need to be reported. The discussion included alternatives to receiving nirmatrelvir/ritonavir, including clinical trials, and potential the risks and benefits of those alternatives. The patient was provided electronically with the Fact Sheet for Patients, Parents and Caregivers . The patient was also instructed that in addition to the treatment with nirmatrelvir/ritonavir, he/she should continue to self-isolate and use infection control measures (e.g., wear mask, isolate, social distance, avoid sharing personal items, clean and disinfect high touch surfaces, and frequent handwashing) according to CDC guidelines. The patient stated understanding and gave verbal consent to proceeding with nirmatrelvir/ritonavir treatment. Bella Mead MD October 22, 2022 11:37 AM documented in this encounter [facility] 10-22-2022 Miscellaneous Notes Called home phone and spoke with pt who was agreeable to appt. Pt scheduled, reviewed chart. Jocelyn Kee Ma Call to pt received identifiable VM. LM on VM notifying pt we received his [employer] message and have offered a same day VV at 11:20 am with PCP, spot held. Pt made aware that [employer] message sent to him. Asked pt to call office and speak with FM Triage Nurse or respond back via Rerecipehart if this appt time works for him. Jocelyn Kee Ma Offered pt VV with PCP at 11:20 to discuss Paxlovid. Wait pt response. Jocelyn Kee Ma documented in this encounter [facility] 08-23-2022 Miscellaneous Notes The following approved medication requests have been transmitted electronically. Requested Prescriptions Pending Prescriptions Disp Refills metoprolol tartrate, short acting, (LOPRESSOR) 50 mg tablet 180 tablet 3 Sig: Take 1 tablet by mouth q 12 HR. Magen Gilman APRN.EMA Patient phones requesting refills as follows: Requested Prescriptions Pending Prescriptions Disp Refills metoprolol tartrate, short acting, (LOPRESSOR) 50 mg tablet 180 tablet 3 Sig: Take 1 tablet by mouth q 12 HR. MEGGAN-05/06/22 Labs-05/04/22 NOV-11/09/22 med filled 08/25/21 Please review and advise. Kimi Oscar LPN documented in this encounter [facility] 06-03-2022 Note HNO ID: [id number] Author: Ailin Gunn LPN Service: ? Author Type: LICENSED NURSE Type: Progress Notes Filed: 06/06/2022 12:19 PM Note Text: Per Dr. Beth, Leonor was provided with powerstep original inserts, size 11, and instructed/educated in its application, wear, and care. All questions were answered, and patient was able to demonstrate competence with the necessary skills to utilize the above equipment. Ailin Gunn LPN [facility] 06-03-2022 Note HNO ID: [id number] Author: Marly Beth Service: ? Author Type: Physician Type: Progress Notes Filed: 06/06/2022 12:19 PM Note Text: Initial Podiatric Office Visit: Chief Complaint: This 76 year old male who presents with chief complaint:painful toenails HPI Patient presents to clinic for evaluation of b/l feet. He has thick mycotic toenails that cause him pain with cutting. He is here to discuss options for the nails He also has arthrihtis of knee. He feels that his flatfoot makes his knee pain more severe. He wonders if there are treatment options for the flatfoot PAIN EVALUATION 05/31/2022 1700 Pain Level: 3 Pain Location: Toe Description: Burning Duration Amount of Time: 5 Duration Units: Minutes Frequency: Intermittent Intervention/Comfort measure: Reposition Comments: No pain now but that's what I need to talk about Hemoglobin A1C (%) Date Value 05/04/2022 5.6 05/05/2021 5.8 06/02/2019 5.2 PCP: Bella Mead MD PAST MEDICAL HISTORY Diagnosis Date Dyslipidemia Dyspnea on exertion Former smoker, stopped smoking in distant past HTN (hypertension) Kidney stones HARLEY on CPAP Rosacea Current Outpatient Medications Medication Sig rosuvastatin (CRESTOR) 40 mg tablet Take 1 tablet by mouth daily at bedtime. losartan (COZAAR) 100 mg tablet Take 1 tablet by mouth once daily. doxycycline 20 mg tablet Take 1 tablet by mouth twice daily. Cholecalciferol, Vitamin D3, 50 mcg (2,000 unit) cap Take by mouth. metoprolol tartrate, short acting, (LOPRESSOR) 50 mg tablet Take 1 tablet by mouth q 12 HR. Azelaic Acid (FINACEA) 15 % gel Apply 1 application to affected area twice daily. Use a pea-sized amount for the face. omeprazole (PRILOSEC) 20 mg capsule Take 1 capsule by mouth daily before breakfast. 1/2 hr before meal. sennosides/docusate sodium (COLACE 2-IN-1 ORAL) Take by mouth. acetaminophen (TYLENOL) 500 mg tablet Take 2 tablets by mouth every 6 hours. aspirin, enteric coated (ASPIRIN, ENTERIC COATED) 81 mg EC tablet Take 2 tablets by mouth once daily. tamsulosin ER (FLOMAX) 0.4 mg Take 1 capsule by mouth twice daily. Dr. Shaffer. No current facility-administered medications for this visit. ALLERGIES No Known Allergies PAST SURGICAL HISTORY Procedure Laterality Date COLONOSCOPY 2006 COLONOSCOPY FLX DX W/COLLJ SPEC WHEN PFRMD 02/15/2019 Colonoscopy HERNIA REPAIR HX childhood and 2006 x3 PAST SURGICAL HISTORY OF lithotripsy, multiple PAST SURGICAL HISTORY OF laser prostate TONSILLECTOMY HX FAMILY HISTORY Problem Relation Age of Onset other (No CAD) Father Cancer Mother , lung Cancer Brother thyroid Social History Tobacco Use Smoking status: Former Packs/day: 1.00 Years: 7.00 Pack years: 7.00 Types: Cigarettes Quit date: 12/27/1976 Years since quittin.4 Smokeless tobacco: Never Tobacco comments: on and off Vaping Use Vaping Use: Never used Substance Use Topics Alcohol use: Yes Comment: occasional Drug use: No REVIEW OF SYSTEMS GENERAL: Negative for Malaise, significant weight loss, fever RESPIRATORY: Negative for cough, wheezing and shortness of breath CARDIOVASCULAR: Negative for chest pain, leg swelling and palpitations GI: Negative for abdominal discomfort, blood in stools or black stools and change in bowel habits : Negative for dysuria, frequency and incontinence MUSCULOSKELETAL: Negative for joint pain or swelling, back pain, and muscle pain. SKIN: Negative for lesions, rash, and itching. HEMATOLOGY/LYMPHOLOGY Negative for prolonged bleeding, bruising easily, and swollen nodes. ENDOCRINE: Negative for cold or heat intolerance, polyuria, polydipsia and goiter. NEURO: negative Physical Exam: Constitutional: Pt is a well developed 76 year old male who is alert, oriented and cooperative Eyes: Following during examination. No redness or drainage. Respiratory: RR normal and nonlabored. Even breathing. No evidence of distress or shortness of breath. Psychology: Patient is engaged during conversation. Normal affect and mood. Does not appear depressed or anxious during encounter. Vascular: Dorsalis pedis and posterior tibial pulses palpable as b/l Capillary Fill time < 5 seconds to digits 1-5 b/l Skin temperature warm to war, proximal to distal b/l Hair growth present to digits Neurological: intact light touch/epicritic sensation b/l intact protective sensation no significant neurological deficits Dermatological: Nails 1-5 b/l appear thick, discolored, painful. Webspaces clean and dry 1-4 b/l. Skin appears well hydrated and supple. good color, texture, turgor. No open lesions present. No callosities present. Musculoskeletal/Orthopaedic: Patient has no pain to palpation of b/l feet Foot type is pronated structurally AJ ROM is full with knee extended and flexed 1st MPJ is full when loaded and no pain or crepitus are (more content not included)... [facility] 06-03-2022 Note HNO ID: [id number] Author: Ailin Gunn LPN Service: ? Author Type: LICENSED NURSE Type: Progress Notes Filed: 06/06/2022 12:19 PM Note Text: AMB ROOMING INTAKE FLOWSHEET DATA Pain Pain Level: 3 Pain Location: Toe Description: Burning Duration Amount of Time: 5 Duration Units: Minutes Frequency: Intermittent Intervention/Comfort measure: Reposition Comments: No pain now but that's what I need to talk about Patient presents with: Left Foot - New, Pain, Nail Fungus Right Foot - New, Pain, Nail Fungus Patient present to office complaining for nail fungus and flat feet. Patient states he has been having knee pain and was wondering if that could be related to him flat feet. Ailin Gunn LPN [facility] 06-03-2022 History of Present illness Narrative Per Dr. Beth, Leonor was provided with powerstep original inserts, size 11, and instructed/educated in its application, wear, and care. All questions were answered, and patient was able to demonstrate competence with the necessary skills to utilize the above equipment. Ailin Gunn LPN Images from the original note were not included. Initial Podiatric Office Visit: Chief Complaint: This 76 year old male who presents with chief complaint:painful toenails HPI Patient presents to clinic for evaluation of b/l feet. He has thick mycotic toenails that cause him pain with cutting. He is here to discuss options for the nails He also has arthrihtis of knee. He feels that his flatfoot makes his knee pain more severe. He wonders if there are treatment options for the flatfoot PAIN EVALUATION 05/31/2022 1700 Pain Level: 3 Pain Location: Toe Description: Burning Duration Amount of Time: 5 Duration Units: Minutes Frequency: Intermittent Intervention/Comfort measure: Reposition Comments: No pain now but that's what I need to talk about Hemoglobin A1C (%) Date Value 05/04/2022 5.6 05/05/2021 5.8 06/02/2019 5.2 PCP: Bella Mead MD PAST MEDICAL HISTORY Diagnosis Date Dyslipidemia Dyspnea on exertion Former smoker, stopped smoking in distant past HTN (hypertension) Kidney stones HARLEY on CPAP Rosacea Current Outpatient Medications Medication Sig rosuvastatin (CRESTOR) 40 mg tablet Take 1 tablet by mouth daily at bedtime. losartan (COZAAR) 100 mg tablet Take 1 tablet by mouth once daily. doxycycline 20 mg tablet Take 1 tablet by mouth twice daily. Cholecalciferol, Vitamin D3, 50 mcg (2,000 unit) cap Take by mouth. metoprolol tartrate, short acting, (LOPRESSOR) 50 mg tablet Take 1 tablet by mouth q 12 HR. Azelaic Acid (FINACEA) 15 % gel Apply 1 application to affected area twice daily. Use a pea-sized amount for the face. omeprazole (PRILOSEC) 20 mg capsule Take 1 capsule by mouth daily before breakfast. 1/2 hr before meal. sennosides/docusate sodium (COLACE 2-IN-1 ORAL) Take by mouth. acetaminophen (TYLENOL) 500 mg tablet Take 2 tablets by mouth every 6 hours. aspirin, enteric coated (ASPIRIN, ENTERIC COATED) 81 mg EC tablet Take 2 tablets by mouth once daily. tamsulosin ER (FLOMAX) 0.4 mg Take 1 capsule by mouth twice daily. Dr. Shaffer. No current facility-administered medications for this visit. ALLERGIES No Known Allergies PAST SURGICAL HISTORY Procedure Laterality Date COLONOSCOPY 2006 COLONOSCOPY FLX DX W/COLLJ SPEC WHEN PFRMD 02/15/2019 Colonoscopy HERNIA REPAIR HX childhood and 2007 x3 PAST SURGICAL HISTORY OF lithotripsy, multiple PAST SURGICAL HISTORY OF laser prostate TONSILLECTOMY HX FAMILY HISTORY Problem Relation Age of Onset other (No CAD) Father Cancer Mother , lung Cancer Brother thyroid Social History Tobacco Use Smoking status: Former Packs/day: 1.00 Years: 7.00 Pack years: 7.00 Types: Cigarettes Quit date: 12/27/1976 Years since quittin.4 Smokeless tobacco: Never Tobacco comments: on and off Vaping Use Vaping Use: Never used Substance Use Topics Alcohol use: Yes Comment: occasional Drug use: No REVIEW OF SYSTEMS GENERAL: Negative for Malaise, significant weight loss, fever RESPIRATORY: Negative for cough, wheezing and shortness of breath CARDIOVASCULAR: Negative for chest pain, leg swelling and palpitations GI: Negative for abdominal discomfort, blood in stools or black stools and change in bowel habits : Negative for dysuria, frequency and incontinence MUSCULOSKELETAL: Negative for joint pain or swelling, back pain, and muscle pain. SKIN: Negative for lesions, rash, and itching. HEMATOLOGY/LYMPHOLOGY Negative for prolonged bleeding, bruising easily, and swollen nodes. ENDOCRINE: Negative for cold or heat intolerance, polyuria, polydipsia and goiter. NEURO: negative Physical Exam: Constitutional: Pt is a well developed 76 year old male who is alert, oriented and cooperative Eyes: Following during examination. No redness or drainage. Respiratory: RR normal and nonlabored. Even breathing. No evidence of distress or shortness of breath. Psychology: Patient is engaged during conversation. Normal affect and mood. Does not appear depressed or anxious during encounter. Vascular: Dorsalis pedis and posterior tibial pulses palpable as b/l Capillary Fill time < 5 seconds to digits 1-5 b/l Skin temperature warm to war, proximal to distal b/l Hair growth present to digits Neurological: intact light touch/epicritic sensation b/l intact protective sensation no significant neurological deficits Dermatological: Nails 1-5 b/l appear thick, discolored, painful. Webspaces clean and dry 1-4 b/l. Skin appears well hydrated and supple. good color, texture, turgor. No open lesions present. No callosities present. Musculoskeletal/Orthopaedic: Patient has no pain to palpation of b/l feet Foot type is pronated structurally AJ ROM is full with knee extended and flexed 1st MPJ is full when loaded and no pain or crepitus are noted with ROM. MTJ, STJ are full and free of pain and crepitus. +5/5 muscle strength dorsiflexion, plantarflexion, inversion, eversion b/l Radiographs: n/a ASSESSMENT: (M79.675) Pain in toe of left foot (primary encounter diagnosis) (B35.1) Onychomycosis (M79.674) Pain in toe of right foot (M21.41, M21.42) Pes planus of both feet PLAN: 1. History and physical examination performed. 2. Discussed discoloration of toenails. Discussed etiology of dystrophic toenials not limited to fungus, mold vs trauma. Discussed topical medication vs oral medication vs removal. 3. Toenails 1-5 b/l debrided in length and thickness 4. Discussed flatfoot. This certainly can lead to pian in knees. Discussed ovr the counter inserts vs custom orthotics. Patient will try powerstep inserts. Marly Beth DPM Podiatry [address] [facility] [id number] Dept: [phone] Dept AMB ROOMING INTAKE FLOWSHEET DATA Pain Pain Level: 3 Pain Location: Toe Description: Burning Duration Amount of Time: 5 Duration Units: Minutes Frequency: Intermittent Intervention/Comfort measure: Reposition Comments: No pain now but that's what I need to talk about Patient presents with: Left Foot - New, Pain, Nail Fungus Right Foot - New, Pain, Nail Fungus Patient present to office complaining for nail fungus and flat feet. Patient states he has been having knee pain and was wondering if that could be related to him flat feet. Ailin Gunn LPN documented in this encounter [facility] 06-03-2022 Instructions Marly Beth - 06/03/2022 12:03 PM EST Powerstep Original Full length. Can purchase at [employer] here in [place], [employer] in [place] or [place]. Also can find in [place] in [facility]. Powersteps can also be purchased online, starting around $25.00 If you have a metatarsal or dancer pad for your feet apply the pad directly to the insole so you can interchange between your shoes. Find a shoe with a removable insole and take this out and replace with your powerstep insole. Always bring powersteps with you when shopping for shoes so that you can make sure that everything fits well together documented in this encounter [facility] 05-24-2022 Miscellaneous Notes Patient's request for medication is as follows: Requested Prescriptions Pending Prescriptions Disp Refills rosuvastatin (CRESTOR) 40 mg tablet 90 tablet 3 Sig: Take 1 tablet by mouth daily at bedtime. Last seen 03/15/2022. Follow up scheduled for 10/25/2022. Prescription(s) as above. Please process accordingly. Estella Garcia LPN documented in this encounter [facility] 05-17-2022 Miscellaneous Notes Pt sent [employer] message notifying him that Ortho referral has been placed. Notified pt to contact office to schedule an appt. Jocelyn Kee Ma I would suggest an Ortho consult; order filed Bella Mead MD See pt message. Pt seen on 05/06/22 with evaluation done. Jocelyn Kee Ma documented in this encounter [facility] 05-12-2022 Miscellaneous Notes Returned patient's call. He had received a phone call earlier to reschedule his appointment that was in May. Transferred patient to schedulers to reschedule appointment. Patient called. Verified name and date of . Patient returning call to [facility] and would like to get surgery scheduled. Mobile number is preferred contact number. Chela Gomez LPN documented in this encounter [facility] 05-06-2022 Note HNO ID: [id number] Author: Bella Mead MD Service: ? Author Type: Physician Type: Progress Notes Filed: 05/06/2022 5:52 PM Note Text: Chief Complaint Patient presents with: F/U 6 Month HPI Leonor Loaiza is a 76 year old male who presents here today for 6 month follow up. Family hx of thyroid cancer, leukemia, and prostate cancer. Notes ongoing stress in his life due to his and her medical issues. She's currently working with Hospice. She now has expressive aphasia. No bowel, Gi, or urinary issues. Does taking Flomax 0.4 mg twice daily. Sleeps 5-6 hours uninterrupted. Notes weaker stream at times. Follows with Dr. Shaffer. GERD: Sx controlled with Prilosec 20 mg daily. Tachycardia AND HTN: Taking Losartan 50 mg daily and Lopressor 50 mg BID. No chest pains, dizziness, or SOB. Denies any tachycardia symptoms since previous OV. Follows with Cardio, Dr. Mccarthy. Pt checking BP at home with BP average of 135/81 over the past month. BP ranging from 130-150's/70-90's. Pt concerned about his BP trending on the higher side. Lipid:/CAD/Glucose - Taking Crestor 40 mg daily, tolerating well. Tries to watch diet, mostly. Exercising at [place] [employer] 3 days a week and hiking. Takes Aspirin 81 mg daily. Pt is reporting burning type sensation in his toes with pressure applied or his sheets. Pt feels this is mainly in his left foot. Derm: Follows with Dermatology. Has been treated with short term Doxycycline in the past, but uses Metronidazole gel. HARLEY - Uses nightly Bipap. Feels this causes him sinus issues. When he goes to bed his sinuses are okay, but when he wakes up he's congested. Discussed using Flonase. Pt also noting that his right knee has continued to bother him. Even when driving or watching TV if bent the right way. At times his pain is a 5-6/10. Had a recent massage which has seemed to help it, but wanted to make mention of this today. HM - Declines Hep C. Declines Flu shot. Will get bivalent Moderna vaccine. Has Adv Dir/Living Will. Declines depression. Past medical history, appointments, medications, allergies reviewed. Previous Medical History PAST MEDICAL HISTORY Diagnosis Date Dyslipidemia Dyspnea on exertion Former smoker, stopped smoking in distant past HTN (hypertension) Kidney stones HARLEY on CPAP Rosacea Previous Surgical History PAST SURGICAL HISTORY Procedure Laterality Date COLONOSCOPY 2005 COLONOSCOPY FLX DX W/COLLJ SPEC WHEN PFRMD 02/15/2019 Colonoscopy HERNIA REPAIR HX childhood and 2007 x3 PAST SURGICAL HISTORY OF lithotripsy, multiple PAST SURGICAL HISTORY OF laser prostate TONSILLECTOMY HX Family History FAMILY HISTORY Problem Relation Age of Onset other (No CAD) Father Cancer Mother , lung Cancer Brother thyroid Patient Allergies ALLERGIES No Known Allergies Current Medications Current Outpatient Medications on File Prior to Visit Medication Sig doxycycline 20 mg tablet Take 1 tablet by mouth twice daily. Cholecalciferol, Vitamin D3, 50 mcg (2,000 unit) cap Take by mouth. rosuvastatin (CRESTOR) 40 mg tablet Take 1 tablet by mouth daily at bedtime. losartan (COZAAR) 50 mg tablet Take 1 tablet by mouth once daily. metoprolol tartrate, short acting, (LOPRESSOR) 50 mg tablet Take 1 tablet by mouth q 12 HR. Azelaic Acid (FINACEA) 15 % gel Apply 1 application to affected area twice daily. Use a pea-sized amount for the face. omeprazole (PRILOSEC) 20 mg capsule Take 1 capsule by mouth daily before breakfast. 1/2 hr before meal. tamsulosin ER (FLOMAX) 0.4 mg Take 1 capsule by mouth twice daily. Dr. Shaffer. sennosides/docusate sodium (COLACE 2-IN-1 ORAL) Take by mouth. acetaminophen (TYLENOL) 500 mg tablet Take 2 tablets by mouth every 6 hours. aspirin, enteric coated (ASPIRIN, ENTERIC COATED) 81 mg EC tablet Take 2 tablets by mouth once daily. [DISCONTINUED] amiodarone (PACERONE) 200 mg tablet Take 1 tablet by mouth once daily. (Patient not taking: Reported on 07/18/2019 ) [DISCONTINUED] furosemide (LASIX) 20 mg tablet Take 1 tablet by mouth once daily. No current facility-administered medications on file prior to visit. Social History Social History Tobacco Use Smoking status: Former Packs/day: 1.00 Years: 7.00 Pack years: 7.00 Types: Cigarettes Quit date: 12/27/1976 Years since quittin.3 Smokeless tobacco: Never Tobacco comments: on and off Vaping Use Vaping Use: Never used Substance Use Topics Alcohol use: Yes Comment: occasional Drug use: No EXAM: BP 134/82 (BP Site: Left Arm, BP Position: Sitting, BP Cuff Size: Regular Adult) Pulse 60 Resp 16 Wt 78.9 kg (174 lb) BMI 26.85 kg/m? General Appearance: Well appearing, alert, in no acute distress, well-hydrated, well nourished.. Lungs: Lungs clear to auscultation. No wheezing, rhonchi, rales.. Heart: RRR without murmur, gallop, or rubs. No ectopy. Extremities: (more content not included)... [facility] 05-06-2022 History of Present illness Narrative Chief Complaint Patient presents with: F/U 6 Month HPI Leonor Loaiza is a 76 year old male who presents here today for 6 month follow up. Family hx of thyroid cancer, leukemia, and prostate cancer. Notes ongoing stress in his life due to his and her medical issues. She's currently working with Hospice. She now has expressive aphasia. No bowel, Gi, or urinary issues. Does taking Flomax 0.4 mg twice daily. Sleeps 5-6 hours uninterrupted. Notes weaker stream at times. Follows with Dr. Shaffer. GERD: Sx controlled with Prilosec 20 mg daily. Tachycardia & HTN: Taking Losartan 50 mg daily and Lopressor 50 mg BID. No chest pains, dizziness, or SOB. Denies any tachycardia symptoms since previous OV. Follows with Cardio, Dr. Mccarthy. Pt checking BP at home with BP average of 135/81 over the past month. BP ranging from 130-150's/70-90's. Pt concerned about his BP trending on the higher side. Lipid:/CAD/Glucose - Taking Crestor 40 mg daily, tolerating well. Tries to watch diet, mostly. Exercising at [place] 3 days a week and hiking. Takes Aspirin 81 mg daily. Pt is reporting burning type sensation in his toes with pressure applied or his sheets. Pt feels this is mainly in his left foot. Derm: Follows with Dermatology. Has been treated with short term Doxycycline in the past, but uses Metronidazole gel. HARLEY - Uses nightly Bipap. Feels this causes him sinus issues. When he goes to bed his sinuses are okay, but when he wakes up he's congested. Discussed using Flonase. Pt also noting that his right knee has continued to bother him. Even when driving or watching TV if bent the right way. At times his pain is a 5-6/10. Had a recent massage which has seemed to help it, but wanted to make mention of this today. HM - Declines Hep C. Declines Flu shot. Will get bivalent Moderna vaccine. Has Adv Dir/Living Will. Declines depression. Past medical history, appointments, medications, allergies reviewed. Previous Medical History PAST MEDICAL HISTORY Diagnosis Date Dyslipidemia Dyspnea on exertion Former smoker, stopped smoking in distant past HTN (hypertension) Kidney stones HARLEY on CPAP Rosacea Previous Surgical History PAST SURGICAL HISTORY Procedure Laterality Date COLONOSCOPY 2006 COLONOSCOPY FLX DX W/COLLJ SPEC WHEN PFRMD 02/15/2019 Colonoscopy HERNIA REPAIR HX childhood and 2007 x3 PAST SURGICAL HISTORY OF lithotripsy, multiple PAST SURGICAL HISTORY OF laser prostate TONSILLECTOMY HX Family History FAMILY HISTORY Problem Relation Age of Onset other (No CAD) Father Cancer Mother , lung Cancer Brother thyroid Patient Allergies ALLERGIES No Known Allergies Current Medications Current Outpatient Medications on File Prior to Visit Medication Sig doxycycline 20 mg tablet Take 1 tablet by mouth twice daily. Cholecalciferol, Vitamin D3, 50 mcg (2,000 unit) cap Take by mouth. rosuvastatin (CRESTOR) 40 mg tablet Take 1 tablet by mouth daily at bedtime. losartan (COZAAR) 50 mg tablet Take 1 tablet by mouth once daily. metoprolol tartrate, short acting, (LOPRESSOR) 50 mg tablet Take 1 tablet by mouth q 12 HR. Azelaic Acid (FINACEA) 15 % gel Apply 1 application to affected area twice daily. Use a pea-sized amount for the face. omeprazole (PRILOSEC) 20 mg capsule Take 1 capsule by mouth daily before breakfast. 1/2 hr before meal. tamsulosin ER (FLOMAX) 0.4 mg Take 1 capsule by mouth twice daily. Dr. Shaffer. sennosides/docusate sodium (COLACE 2-IN-1 ORAL) Take by mouth. acetaminophen (TYLENOL) 500 mg tablet Take 2 tablets by mouth every 6 hours. aspirin, enteric coated (ASPIRIN, ENTERIC COATED) 81 mg EC tablet Take 2 tablets by mouth once daily. [DISCONTINUED] amiodarone (PACERONE) 200 mg tablet Take 1 tablet by mouth once daily. (Patient not taking: Reported on 07/18/2019 ) [DISCONTINUED] furosemide (LASIX) 20 mg tablet Take 1 tablet by mouth once daily. No current facility-administered medications on file prior to visit. Social History Social History Tobacco Use Smoking status: Former Packs/day: 1.00 Years: 7.00 Pack years: 7.00 Types: Cigarettes Quit date: 12/27/1976 Years since quittin.3 Smokeless tobacco: Never Tobacco comments: on and off Vaping Use Vaping Use: Never used Substance Use Topics Alcohol use: Yes Comment: occasional Drug use: No EXAM: BP 134/82 (BP Site: Left Arm, BP Position: Sitting, BP Cuff Size: Regular Adult) Pulse 60 Resp 16 Wt 78.9 kg (174 lb) BMI 26.85 kg/m General Appearance: Well appearing, alert, in no acute distress, well-hydrated, well nourished.. Lungs: Lungs clear to auscultation. No wheezing, rhonchi, rales.. Heart: RRR without murmur, gallop, or rubs. No ectopy. Extremities: Right knee examined, nothing felt on exam. Pt notes some tenderness to palpitate. Foot: Left foot examined. Toenail fungus on exam. Left hallux nail thickened. Health Maintenance List HEPATITIS C SCREENING Never done - Declined SHINGRIX VACCINE(1 of 2) Never done INFLUENZA(1) due on 12/24/2021 - Declined COVID-19 VACCINE(5 - Booster for Moderna series) due on 01/24/2022 ADVANCE DIRECTIVE DISCUSSION Never done - has Adv Dir, just not scanned in DEPRESSION ASSESSMENT Never done - Declines LDL CHOLESTEROL due on 10/27/2022 ANNUAL PCP TEAM CHRONIC DISEASE VISIT due on 04/15/2023 BP CONTROLLED (<130/80) due on 04/15/2023 COLORECTAL CANCER SCREENING due on 02/16/2024 DIABETES SCREEN due on 10/27/2024 LIPID SCREEN due on 10/27/2026 DTAP,TDAP,TD(2 - Td or Tdap) due on 02/07/2027 PNEUMOCOCCAL: 65+ Completed Data reviewed Appointment on 05/04/2022 Component Date Value Cholesterol, Total 05/04/2022 132 Triglyceride 05/04/2022 87 HDL Cholesterol 05/04/2022 40 Non HDL Cholesterol 05/04/2022 92 Fasting Time 05/04/2022 13 VLDL Cholesterol 05/04/2022 17 TC:HDL Ratio 05/04/2022 3.30 LDL Cholesterol 05/04/2022 75 LDL:HDL Ratio 05/04/2022 1.88 Protein, Total 05/04/2022 7.2 Albumin 05/04/2022 4.3 Calcium, Total 05/04/2022 9.1 Bilirubin, Total 05/04/2022 0.4 Alkaline Phosphatase 05/04/2022 58 AST 05/04/2022 28 ALT 05/04/2022 27 Glucose 05/04/2022 100 (A) BUN 05/04/2022 20 Creatinine 05/04/2022 0.98 Sodium 05/04/2022 140 Potassium 05/04/2022 4.7 Chloride 05/04/2022 106 (A) CO2 05/04/2022 24 Anion Gap 05/04/2022 10 Estimated Glomerular Stefan* 05/04/2022 80 Hemoglobin A1C 05/04/2022 5.6 Estimated Average Glucose 05/04/2022 114 WBC 05/04/2022 5.88 RBC 05/04/2022 5.57 Hemoglobin 05/04/2022 16.9 Hematocrit 05/04/2022 53.2 (A) MCV 05/04/2022 95.5 MCH 05/04/2022 30.3 MCHC 05/04/2022 31.8 RDW-CV 05/04/2022 12.4 Platelet Count 05/04/2022 335 MPV 05/04/2022 9.8 Absolute nRBC 05/04/2022 <0.01 ASSESSMENT/PLAN: 1. Essential hypertension - ICD9: 401.9, ICD10: I10 (primary diagnosis) - suboptimal control - Increase losartan(Cozaar) to 100 mg daily from 50 mg. - Recommended regular aerobic exercise. - Recommend home blood pressure monitoring, to bring results in on next visit - Goal of BP <130/80 2. Tachycardia - ICD9: 785.0, ICD10: R00.0 - Stable, no issues 3. 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 - ICD9: 414.05, ICD10: I25.810 - Cont f/u with Cardiology - Continue current medication regimen. 4. Other hyperlipidemia - ICD9: 272.4, ICD10: E78.49 - Stable, cont to monitor - Watch diet/exercise - Continue current medication regimen. 5. Elevated glucose - ICD9: 790.29, ICD10: R73.09 - Stable, continue to monitor - Watch diet and exercise 6. Hx of CABG - ICD9: V45.81, ICD10: Z95.1 - Continue current medication regimen. - Cont f/u with Cardio 7. GERD without esophagitis - ICD9: 530.81, ICD10: K21.9 - Continue current medication regimen. 8. HARLEY on CPAP - ICD9: 327.23, V46.8, ICD10: G47.33, Z99.89 - Cont use of CPAP 9. Onychomycosis - ICD9: 110.1, ICD10: B35.1 - Consult for pt to schedule. - CONSULT TO PODIATRY 6 mo f/u with labs. I agree with the Chief Complaint, ROS, and Past Histories independently gathered by the clinical senior support engineer and the remaining scribed note accurately describes my personal service to the patient. Medical Decision Making: Problems: Low: Acute, uncomplicated illness or injury Moderate: 2+ stable chronic illnesses Data: Unique test result(s) reviewed: 3+ Risk: Moderate: Drug management Medical Decision Making Level: 4 - Moderate Bella Mead MD The documentation for this note was completed by Jocelyn Kee Ma acting as scribe for Bella Mead MD. May 06, 2022 9:33 AM. Jocelyn Kee Ma documented in this encounter [facility] 04-15-2022 Note HNO ID: [id number] Author: Bella Mead MD Service: ? Author Type: Physician Type: Progress Notes Filed: 04/15/2022 11:46 AM Note Text: Chief Complaint Patient presents with: Palpitations: Increased heart rate HPI Leonor Loaiza is a 76 year old male who presents here today for a same day visit. Pt scheduled for a same day visit. Pt spoke with triage and reported increased heart rate in the 80's and 90's x 1 day. Pt's normal is 60 - 70's. Also states this monitor picked up irregularity. Feels like his HR is fast and is having palpitation. He denies any chest pain, discomfort, difficulty breathing, pain down left arm or neck pain. Symptoms started after having anxiety over doing a reading in [place] last night. He has felt more stressed recently also. Pt follows with Cardiology, Dr. Mccarthy and was last seen on 03/15/22. Most recent EKG on 03/15/22. Pt had cardiac testing in 2019, 2020 and EKG in 2021. Pt on current regimen of Losartan 50 mg once daily, Lopressor 50 mg 1 tab po bid. Past medical history, appointments, medications, allergies reviewed. Previous Medical History PAST MEDICAL HISTORY Diagnosis Date Dyslipidemia Dyspnea on exertion Former smoker, stopped smoking in distant past HTN (hypertension) Kidney stones HARLEY on CPAP Rosacea Previous Surgical History PAST SURGICAL HISTORY Procedure Laterality Date COLONOSCOPY 2006 COLONOSCOPY FLX DX W/COLLJ SPEC WHEN PFRMD 02/15/2019 Colonoscopy HERNIA REPAIR HX childhood and 2007 x3 PAST SURGICAL HISTORY OF lithotripsy, multiple PAST SURGICAL HISTORY OF laser prostate TONSILLECTOMY HX Family History FAMILY HISTORY Problem Relation Age of Onset other (No CAD) Father Cancer Mother , lung Cancer Brother thyroid Patient Allergies ALLERGIES No Known Allergies Current Medications Current Outpatient Medications on File Prior to Visit Medication Sig Cholecalciferol, Vitamin D3, 50 mcg (2,000 unit) cap Take by mouth. rosuvastatin (CRESTOR) 40 mg tablet Take 1 tablet by mouth daily at bedtime. losartan (COZAAR) 50 mg tablet Take 1 tablet by mouth once daily. metoprolol tartrate, short acting, (LOPRESSOR) 50 mg tablet Take 1 tablet by mouth q 12 HR. Azelaic Acid (FINACEA) 15 % gel Apply 1 application to affected area twice daily. Use a pea-sized amount for the face. omeprazole (PRILOSEC) 20 mg capsule Take 1 capsule by mouth daily before breakfast. 1/2 hr before meal. tamsulosin ER (FLOMAX) 0.4 mg Take 1 capsule by mouth twice daily. Dr. Shaffer. sennosides/docusate sodium (COLACE 2-IN-1 ORAL) Take by mouth. acetaminophen (TYLENOL) 500 mg tablet Take 2 tablets by mouth every 6 hours. aspirin, enteric coated (ASPIRIN, ENTERIC COATED) 81 mg EC tablet Take 2 tablets by mouth once daily. [DISCONTINUED] amiodarone (PACERONE) 200 mg tablet Take 1 tablet by mouth once daily. (Patient not taking: Reported on 07/18/2019 ) [DISCONTINUED] furosemide (LASIX) 20 mg tablet Take 1 tablet by mouth once daily. No current facility-administered medications on file prior to visit. Social History Social History Tobacco Use Smoking status: Former Packs/day: 1.00 Years: 7.00 Pack years: 7.00 Types: Cigarettes Quit date: 12/27/1976 Years since quittin.3 Smokeless tobacco: Never Tobacco comments: on and off Vaping Use Vaping Use: Never used Substance Use Topics Alcohol use: Yes Comment: occasional Drug use: No EXAM: BP 118/78 (BP Site: Right Arm, BP Position: Sitting, BP Cuff Size: Regular Adult) Pulse 82 Resp 16 Wt 80.1 kg (176 lb 9.6 oz) BMI 27.25 kg/m? General Appearance: Well appearing, alert, in no acute distress, well-hydrated, well nourished.. Lungs: Lungs clear to auscultation. No wheezing, rhonchi, rales.. Heart: RRR without murmur, gallop, or rubs. No ectopy. Health Maintenance List HEPATITIS C SCREENING Never done BP CONTROLLED (<130/80) Never done SHINGRIX VACCINE(1 of 2) Never done ADVANCE DIRECTIVE DISCUSSION Never done DEPRESSION ASSESSMENT Never done INFLUENZA(1) due on 12/24/2021 COVID-19 VACCINE(5 - Booster for Moderna series) due on 01/24/2022 LDL CHOLESTEROL due on 10/27/2022 ANNUAL PCP TEAM CHRONIC DISEASE VISIT due on 11/03/2022 COLORECTAL CANCER SCREENING due on 02/16/2024 DIABETES SCREEN due on 10/27/2024 LIPID SCREEN due on 10/27/2026 DTAP,TDAP,TD(2 - Td or Tdap) due on 02/07/2027 PNEUMOCOCCAL: 65+ Completed Data reviewed EKG: NSR; no acute changes; no changes from previous EKG ASSESSMENT/PLAN: 1. Tachycardia - ICD9: 785.0, ICD10: R00.0 (primary diagnosis) Related to anxiety; reassurance; monitor - ECG COMPLETE 2. Primary hypertension - ICD9: 401.9, ICD10: I10 Continue current medications. 3. Hx of CABG - ICD9: V45.81, ICD10: Z95.1 Follow up prn Medical Decision Making: Problems: Moderate: 1+ chronic illnesses with change Data: Unique test(s) ordered: 1 Ris (more content not included)... [facility] 04-15-2022 History of Present illness Narrative Chief Complaint Patient presents with: Palpitations: Increased heart rate HPI Leonor Loaiza is a 76 year old male who presents here today for a same day visit. Pt scheduled for a same day visit. Pt spoke with triage and reported increased heart rate in the 80's and 90's x 1 day. Pt's normal is 60 - 70's. Also states this monitor picked up irregularity. Feels like his HR is fast and is having palpitation. He denies any chest pain, discomfort, difficulty breathing, pain down left arm or neck pain. Symptoms started after having anxiety over doing a reading in [place] last night. He has felt more stressed recently also. Pt follows with Cardiology, Dr. Mccarthy and was last seen on 03/15/22. Most recent EKG on 03/15/22. Pt had cardiac testing in 2019, 2020 and EKG in 2021. Pt on current regimen of Losartan 50 mg once daily, Lopressor 50 mg 1 tab po bid. Past medical history, appointments, medications, allergies reviewed. Previous Medical History PAST MEDICAL HISTORY Diagnosis Date Dyslipidemia Dyspnea on exertion Former smoker, stopped smoking in distant past HTN (hypertension) Kidney stones HARLEY on CPAP Rosacea Previous Surgical History PAST SURGICAL HISTORY Procedure Laterality Date COLONOSCOPY 2005 COLONOSCOPY FLX DX W/COLLJ SPEC WHEN PFRMD 02/15/2019 Colonoscopy HERNIA REPAIR HX childhood and 2007 x3 PAST SURGICAL HISTORY OF lithotripsy, multiple PAST SURGICAL HISTORY OF laser prostate TONSILLECTOMY HX Family History FAMILY HISTORY Problem Relation Age of Onset other (No CAD) Father Cancer Mother , lung Cancer Brother thyroid Patient Allergies ALLERGIES No Known Allergies Current Medications Current Outpatient Medications on File Prior to Visit Medication Sig Cholecalciferol, Vitamin D3, 50 mcg (2,000 unit) cap Take by mouth. rosuvastatin (CRESTOR) 40 mg tablet Take 1 tablet by mouth daily at bedtime. losartan (COZAAR) 50 mg tablet Take 1 tablet by mouth once daily. metoprolol tartrate, short acting, (LOPRESSOR) 50 mg tablet Take 1 tablet by mouth q 12 HR. Azelaic Acid (FINACEA) 15 % gel Apply 1 application to affected area twice daily. Use a pea-sized amount for the face. omeprazole (PRILOSEC) 20 mg capsule Take 1 capsule by mouth daily before breakfast. 1/2 hr before meal. tamsulosin ER (FLOMAX) 0.4 mg Take 1 capsule by mouth twice daily. Dr. Shaffer. sennosides/docusate sodium (COLACE 2-IN-1 ORAL) Take by mouth. acetaminophen (TYLENOL) 500 mg tablet Take 2 tablets by mouth every 6 hours. aspirin, enteric coated (ASPIRIN, ENTERIC COATED) 81 mg EC tablet Take 2 tablets by mouth once daily. [DISCONTINUED] amiodarone (PACERONE) 200 mg tablet Take 1 tablet by mouth once daily. (Patient not taking: Reported on 07/18/2019 ) [DISCONTINUED] furosemide (LASIX) 20 mg tablet Take 1 tablet by mouth once daily. No current facility-administered medications on file prior to visit. Social History Social History Tobacco Use Smoking status: Former Packs/day: 1.00 Years: 7.00 Pack years: 7.00 Types: Cigarettes Quit date: 12/27/1976 Years since quittin.3 Smokeless tobacco: Never Tobacco comments: on and off Vaping Use Vaping Use: Never used Substance Use Topics Alcohol use: Yes Comment: occasional Drug use: No EXAM: BP 118/78 (BP Site: Right Arm, BP Position: Sitting, BP Cuff Size: Regular Adult) Pulse 82 Resp 16 Wt 80.1 kg (176 lb 9.6 oz) BMI 27.25 kg/m General Appearance: Well appearing, alert, in no acute distress, well-hydrated, well nourished.. Lungs: Lungs clear to auscultation. No wheezing, rhonchi, rales.. Heart: RRR without murmur, gallop, or rubs. No ectopy. Health Maintenance List HEPATITIS C SCREENING Never done BP CONTROLLED (<130/80) Never done SHINGRIX VACCINE(1 of 2) Never done ADVANCE DIRECTIVE DISCUSSION Never done DEPRESSION ASSESSMENT Never done INFLUENZA(1) due on 12/24/2021 COVID-19 VACCINE(5 - Booster for Moderna series) due on 01/24/2022 LDL CHOLESTEROL due on 10/27/2022 ANNUAL PCP TEAM CHRONIC DISEASE VISIT due on 11/03/2022 COLORECTAL CANCER SCREENING due on 02/16/2024 DIABETES SCREEN due on 10/27/2024 LIPID SCREEN due on 10/27/2026 DTAP,TDAP,TD(2 - Td or Tdap) due on 02/07/2027 PNEUMOCOCCAL: 65+ Completed Data reviewed EKG: NSR; no acute changes; no changes from previous EKG ASSESSMENT/PLAN: 1. Tachycardia - ICD9: 785.0, ICD10: R00.0 (primary diagnosis) Related to anxiety; reassurance; monitor - ECG COMPLETE 2. Primary hypertension - ICD9: 401.9, ICD10: I10 Continue current medications. 3. Hx of CABG - ICD9: V45.81, ICD10: Z95.1 Follow up prn Medical Decision Making: Problems: Moderate: 1+ chronic illnesses with change Data: Unique test(s) ordered: 1 Risk: Low: Low risk from testing/treatment Medical Decision Making Level: 3 - Low Bella Mead MD documented in this encounter [facility] 04-15-2022 Miscellaneous Notes OK for appt today Bella Mead MD Pt called in and reports a rapid heart rate 80's and 90's x 1 day. Normal for him is 60's to 70's. Pt denies chest pain, chest discomfort, difficulty breathing, pain down left arm, neck pain. Pt scheduled for apt today. Bouchra Cabrera LPN documented in this encounter [facility] 03-15-2022 History of Present illness Narrative Images from the original note were not included. [facility] SE[facility]IONAL CARDIOLOGY Cardiology ([facility] ) [address] [id number] OUTPATIENT VISIT DATE 03/15/2022 PRIMARY CARE PHYSICIAN: Bella Mead [address] [place] [address] HISTORY OF PRESENT ILLNESS: Mr. Loaiza is a 76 year old gentleman with a history of coronary artery disease prior coronary bypass grafting (May 2019), hypertension, and dyslipidemia who presents for routine follow-up. He has been under increased stress. His has been in the halfway for the past 1 year due to history of CVA symptom control diabetes. He continues to exercise 3 to 4 days a week. He walks on a treadmill and tries to maintain a heart rate between 100-120 bpm. He has not had symptoms of chest pain or pressure. He has not had symptoms concerning for CHF including PND, orthopnea, or lower extremity edema. He reports 1 episode of increased heart rates and palpitations. He was started on metoprolol. He has not had recurrent symptoms since starting beta-arabella therapy. PAST MEDICAL HISTORY Diagnosis Date Dyslipidemia Dyspnea on exertion Former smoker, stopped smoking in distant past HTN (hypertension) Kidney stones HARLEY on CPAP Rosacea PAST SURGICAL HISTORY Procedure Laterality Date COLONOSCOPY 2005 COLONOSCOPY FLX DX W/COLLJ SPEC WHEN PFRMD 02/15/2019 Colonoscopy HERNIA REPAIR HX childhood and 2007 x3 PAST SURGICAL HISTORY OF lithotripsy, multiple PAST SURGICAL HISTORY OF laser prostate TONSILLECTOMY HX SOCIAL HISTORY Social History Tobacco Use Smoking status: Former Packs/day: 1.00 Years: 7.00 Pack years: 7.00 Types: Cigarettes Quit date: 12/27/1976 Years since quittin.2 Smokeless tobacco: Never Tobacco comments: on and off Vaping Use Vaping Use: Never used Substance Use Topics Alcohol use: Yes Comment: occasional Drug use: No FAMILY HISTORY Problem Relation Age of Onset other (No CAD) Father Cancer Mother , lung Cancer Brother thyroid ALLERGIES: ALLERGIES No Known Allergies MEDICATIONS: Cholecalciferol, Vitamin D3, 50 mcg (2,000 unit) cap Take by mouth. rosuvastatin (CRESTOR) 40 mg tablet Take 1 tablet by mouth daily at bedtime. losartan (COZAAR) 50 mg tablet Take 1 tablet by mouth once daily. metoprolol tartrate, short acting, (LOPRESSOR) 50 mg tablet Take 1 tablet by mouth q 12 HR. Azelaic Acid (FINACEA) 15 % gel Apply 1 application to affected area twice daily. Use a pea-sized amount for the face. omeprazole (PRILOSEC) 20 mg capsule Take 1 capsule by mouth daily before breakfast. 1/2 hr before meal. tamsulosin ER (FLOMAX) 0.4 mg Take 1 capsule by mouth twice daily. Dr. Shaffer. sennosides/docusate sodium (COLACE 2-IN-1 ORAL) Take by mouth. acetaminophen (TYLENOL) 500 mg tablet Take 2 tablets by mouth every 6 hours. aspirin, enteric coated (ASPIRIN, ENTERIC COATED) 81 mg EC tablet Take 2 tablets by mouth once daily. [DISCONTINUED] amiodarone (PACERONE) 200 mg tablet Take 1 tablet by mouth once daily. (Patient not taking: Reported on 07/18/2019 ) [DISCONTINUED] furosemide (LASIX) 20 mg tablet Take 1 tablet by mouth once daily. REVIEW OF SYSTEMS: Review of Systems Constitutional: Negative for chills, fever, malaise/fatigue and weight loss. HENT: Negative for hearing loss and sore throat. Eyes: Negative for blurred vision and double vision. Respiratory: Negative. Cardiovascular: Negative. Genitourinary: Negative for dysuria, frequency, hematuria and urgency. Musculoskeletal: Negative. Skin: Negative. Neurological: Negative for dizziness, seizures, loss of consciousness, weakness and headaches. Endo/Heme/Allergies: Negative for environmental allergies. Does not bruise/bleed easily. Psychiatric/Behavioral: Negative for depression. PHYSICAL EXAMINATION: BP 130/80 Pulse 60 Wt 176 lb (79.8kg) General: Very pleasant gentleman sitting comfortable no apparent distress. He is alert and oriented x3 HEENT: Carotid upstrokes are brisk bilaterally without bruits no JVD appreciated. Pulmonary: Lungs are clear no rales, wheezes, rhonchi Cardiovascular: Normal S1, S2 with regular rate and rhythm. No murmurs, rubs, or gallops Extremities: Warm, well-perfused, no lower extremity edema. 2+ distal pulses CARDIOVASCULAR MEDICINE TESTING: Cardiac Catheterization [place] 06/05/2019: POST PROCEDURE DIAGNOSIS: [place] Coronary Artery Disease in the LAD (Severe) 99% proximal, RCA (RESEARCH NEUROPSYCHOLOGIST) and LCX (RESEARCH NEUROPSYCHOLOGIST) Normal carotid arteries Echocardiogram 06/05/2019 CONCLUSIONS: - Technically difficult exam due to suboptimal positioning and post cath. - Exam indication: Shortness of Breath - The left ventricle is normal in size. Left ventricular systolic function is normal. EF = 63 5% (2D biplane) - The right ventricle is normal in size. Right ventricular systolic function is normal. - The visualized aorta is dilated with a maximal dimension of 4.1 cm. - Exam was compared with the prior OUTSIDE echocardiographic exam performed on 05/2019 IMPRESSION: Mr. Loaiza is a 76 year old gentleman with a history of coronary artery disease prior coronary bypass grafting (MOHR-LAD, SVG-OM, SVG-PDA May 2019), hypertension, dyslipidemia who presents to the office for routine follow-up PLAN AND RECOMMENDATIONS: 1. Screening for ischemic heart disease - ICD9: V81.0, ICD10: Z13.6 (primary diagnosis) - ECG COMPLETE 2. 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 - ICD9: 414.05, ICD10: I25.810 Patient doing well without symptoms concerning for angina and good functional capacity. Continue current medical therapy and risk factor modification 3. Primary hypertension - ICD9: 401.9, ICD10: I10 Well-controlled on current regimen. 4. Other hyperlipidemia - ICD9: 272.4, ICD10: E78.49 Maintained on Crestor 40 mg daily. Blood work from October 2021 was reviewed. LDL cholesterol 68 mg/dL 5. HARLEY on CPAP - ICD9: 327.23, V46.8, ICD10: G47.33, Z99.89 6. Dyspnea on exertion - ICD9: 786.09, ICD10: R06.09 Drake Mccarthy MD documented in this encounter [facility] 11-09-2021 Miscellaneous Notes I sent the remaining balances on the 08/31/21 prescriptions to [facility]. Pt has an upcoming OV 03/15/22. Beulah Villagran RN documented in this encounter [facility] 11-03-2021 History of Present illness Narrative Chief Complaint Patient presents with: 6 Month Exam HPI Leonor Loaiza is a 76 year old male who presents here today for a 6 month follow up. He does have an advanced directive. He has had 3 Covid vaccine. Denies any stomach, bowel or urinary issues. Takes Senna prn. On current regimen of Flomax 0.4 mg bid. Follows with Urology, Dr. Shaffer at [facility]. Brother has prostate cancer, going through radiation therapy. Family hx of thyroid cancer, leukemia, and prostate cancer. GERD: doing well, has not been taking Prilosec 20 mg daily. Tinnitus: Both ears. HTN: Elevated BP with multiple messages in changing his regimen. Pt wrote into the office on 09/17/21 and called into the office with chest pain. Pt went to [facility] ED, no issues found with his heart. Notes sob at that time. Pt follows with Dr. Mccarthy in Cardio, seen on 08/31/21. Pt on current regimen of Losartan 50 mg once daily and Lopressor 50 mg 1 tab po bid. Pt has taken Lisinopril in the past but this was d/c by Cardio and Losartan was added due to worsening dry throat. The throat issues have improved with medication changes. He does check BP at home with average of 130/79. Stress: Denies feeling depressed or hopeless. He states he has been having a lot of stress or anxiety in his life at this time. He does not do any counseling but has a lot of support from his friends. He denies any panic attacks. He states he is managing it ok on his own. He states i'm living a lot in my head . Denies any SI/HI. He states his is still in [facility], unsure if she will be able to come home. States she is very inconsistent, she is doing therapy and he helps assist. She needs a lot of assistance ambulating. He is also in process of trying to down size and sell their home. He states those are his major stressors. Lipids/CAD: Tries to watch diet but admits he has not been very successful lately. He does exercise at [facility] 3 days per week and goes hiking. On current regimen of Crestor 40 mg once daily. Derm: Follows with Dermatology. Has been treated with short term Doxycycline in the past, but uses Metronidazole gel. Shoulder: left; no pain but feels and hears a crunching, popping noise when driving off and on x 1-2 months. Denies any pain with working out, using weights and exercise machines. Past medical history, appointments, medications, allergies reviewed. Previous Medical History PAST MEDICAL HISTORY Diagnosis Date Dyslipidemia Dyspnea on exertion Former smoker, stopped smoking in distant past HTN (hypertension) Kidney stones HARLEY on CPAP Rosacea Previous Surgical History PAST SURGICAL HISTORY Procedure Laterality Date COLONOSCOPY 2005 COLONOSCOPY FLX DX W/COLLJ SPEC WHEN PFRMD 02/15/2019 Colonoscopy HERNIA REPAIR HX childhood and 2007 x3 PAST SURGICAL HISTORY OF lithotripsy, multiple PAST SURGICAL HISTORY OF laser prostate TONSILLECTOMY HX Family History FAMILY HISTORY Problem Relation Age of Onset other (No CAD) Father Cancer Mother , lung Cancer Brother thyroid Patient Allergies ALLERGIES No Known Allergies Current Medications Current Outpatient Medications on File Prior to Visit Medication Sig losartan (COZAAR) 50 mg tablet Take 1 tablet by mouth once daily. rosuvastatin (CRESTOR) 40 mg tablet Take 1 tablet by mouth daily at bedtime. metoprolol tartrate, short acting, (LOPRESSOR) 50 mg tablet Take 1 tablet by mouth q 12 HR. Azelaic Acid (FINACEA) 15 % gel Apply 1 application to affected area twice daily. Use a pea-sized amount for the face. doxycycline (VIBRA-TABS) 100 mg tablet Take 1 tablet by mouth twice daily. (Patient taking differently: Take 20 mg by mouth twice daily. ) omeprazole (PRILOSEC) 20 mg capsule Take 1 capsule by mouth daily before breakfast. 1/2 hr before meal. tamsulosin ER (FLOMAX) 0.4 mg Take 1 capsule by mouth twice daily. Dr. Shaffer. sennosides/docusate sodium (COLACE 2-IN-1 ORAL) Take by mouth. acetaminophen (TYLENOL) 500 mg tablet Take 2 tablets by mouth every 6 hours. aspirin, enteric coated (ASPIRIN, ENTERIC COATED) 81 mg EC tablet Take 2 tablets by mouth once daily. [DISCONTINUED] amiodarone (PACERONE) 200 mg tablet Take 1 tablet by mouth once daily. (Patient not taking: Reported on 07/18/2019 ) [DISCONTINUED] furosemide (LASIX) 20 mg tablet Take 1 tablet by mouth once daily. No current facility-administered medications on file prior to visit. Social History Social History Tobacco Use Smoking status: Former Smoker Packs/day: 1.00 Years: 7.00 Pack years: 7.00 Types: Cigarettes Quit date: 12/27/1976 Years since quittin.8 Smokeless tobacco: Never Used Tobacco comment: on and off Vaping Use Vaping Use: Never used Substance Use Topics Alcohol use: Yes Comment: occasional Drug use: No EXAM: BP 120/80 Pulse 70 Resp 16 Wt 76.9 kg (169 lb 9.6 oz) BMI 26.17 kg/m General Appearance: Well appearing, alert, in no acute distress, well-hydrated, well nourished.. Lungs: Lungs clear to auscultation. No wheezing, rhonchi, rales.. Heart: RRR without murmur, gallop, or rubs. No ectopy. Extremities: randy shoulders, no pain on palpation, some decreased ROM Health Maintenance List BP CONTROLLED (<130/80) Never done SHINGRIX VACCINE(1 of 2) Never done ADVANCE DIRECTIVE DISCUSSION Never done COVID-19 VACCINE(4 - Booster for Moderna series) due on 06/26/2021 HEPATITIS C SCREENING due on 03/02/2022 DEPRESSION SCREENING due on 10/30/2021 INFLUENZA(Season Ended) due on 12/24/2021 LDL CHOLESTEROL due on 05/05/2022 ANNUAL PCP TEAM CHRONIC DISEASE VISIT due on 05/05/2022 COLORECTAL CANCER SCREENING due on 02/16/2024 DIABETES SCREEN due on 05/05/2024 LIPID SCREEN due on 05/05/2026 DTAP,TDAP,TD(2 - Td or Tdap) due on 02/07/2027 PNEUMOCOCCAL: 65+ Completed Data reviewed Results Only on 10/27/2021 Component Date Value ALT 10/27/2021 27 AST 10/27/2021 29 Glucose 10/27/2021 103 (A) BUN 10/27/2021 26 (A) Creatinine 10/27/2021 0.92 Sodium 10/27/2021 139 Potassium 10/27/2021 4.5 Chloride 10/27/2021 104 CO2 10/27/2021 24 Anion Gap 10/27/2021 11 Calcium, Total 10/27/2021 9.3 Estimated Glomerular Stefan* 10/27/2021 87 Cholesterol, Total 10/27/2021 130 Triglyceride 10/27/2021 88 HDL Cholesterol 10/27/2021 44 Non HDL Cholesterol 10/27/2021 86 Fasting Time 10/27/2021 12 VLDL Cholesterol 10/27/2021 18 TC:HDL Ratio 10/27/2021 2.95 LDL Cholesterol 10/27/2021 68 LDL:HDL Ratio 10/27/2021 1.55 PSA 10/27/2021 1.77 PSA, Percent Free 10/27/2021 31 ASSESSMENT/PLAN: 1. Primary hypertension - ICD9: 401.9, ICD10: I10 (primary diagnosis) - good control - Continue current medication(s) - Recommended regular aerobic exercise. - Recommend home blood pressure monitoring, to bring results in on next visit - Goal of BP <130/80 2. 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 - ICD9: 414.05, ICD10: I25.810 Continue current medications. Continue with Cardio 3. Other hyperlipidemia - ICD9: 272.4, ICD10: E78.49 Continue current medications. 4. Shoulder crepitation Monitor; symptomatic treatment Follow up in 6 months with fasting labs prior. I agree with the Chief Complaint, ROS, and Past Histories independently gathered by the clinical senior support engineer and the remaining scribed note accurately describes my personal service to the patient. Medical Decision Making: Problems: Moderate: 2+ stable chronic illnesses Data: Unique test result(s) reviewed: 3+ Unique test(s) ordered: 3+ Risk: Moderate: Drug management Medical Decision Making Level: 4 - Moderate Bella Mead MD The documentation for this note was completed by Kenzie Prasad Ma acting as scribe for Bella Mead MD. November 03, 2021 9:15 AM. Kenzie Prasad Ma documented in this encounter [facility] 09-17-2021 Miscellaneous Notes Noted and agree with advice given Bella Mead MD Patient call in for chest pain since yesterday morning. Patient's blood pressure also has been elevated. States that tylenol helps for a little bit but pain comes back. Nurse Triage assessment completed with protocol recommending for disposition of Go to ED now. Care advice reviewed with patient, patient stated understanding. Patient advised to seek evaluation in ED. Reason for Disposition [1] Chest pain lasts > 5 minutes AND [2] occurred in past 3 days (72 hours) (Exception: feels exactly the same as previously diagnosed heartburn and has accompanying sour taste in mouth) Answer Assessment - Initial Assessment Questions 1. LOCATION: Right shoulder, back and chest. 2. RADIATION: Radiates to back and right shoulder 3. ONSET: Yesterday morning. 4. PATTERN Constant; Shortness of breath with exertiion 5. DURATION: Constant pain 6. SEVERITY: Rates pain 4 out of 10. 7. CARDIAC RISK FACTORS: High blood pressure, high cholesterol, May 2019 triple by pass 8. PULMONARY RISK FACTORS: Denies 9. CAUSE: Unsure 10. OTHER SYMPTOMS: Some shortness of breath Protocols used: CHEST [id number] documented in this encounter [facility] 09-17-2021 Miscellaneous Notes See Nurse Triage note documented in this encounter [facility] 09-16-2021 Miscellaneous Notes Please see pt message and advise. Jocelyn Kee Ma documented in this encounter [facility] 08-31-2021 Instructions Drake Mccarthy MD - 08/31/2021 10:27 AM EDT We are changing the Lisinopril to Losartan 50 mg once per day We are changing the Lipitor to Crestor 40 mg once per day Repeat fasting blood work in 3-4 months documented in this encounter [facility] 08-31-2021 History of Present illness Narrative Images from the original note were not included. [facility] SECTION OF REGIONAL CARDIOLOGY Cardiology ([facility]) [address] [id number] OUTPATIENT VISIT DATE 08/31/2021 PRIMARY CARE PHYSICIAN: Bella Mead [address] [place] [address] HISTORY OF PRESENT ILLNESS: Mr. Loaiza is a 75 year old gentleman with a history of coronary artery disease prior coronary bypass grafting (May 2019), hypertension, and dyslipidemia who presents for routine follow-up. Since his last visit, he continues to do well. He exercises 3 to 4 days a week. He has had no decline in his functional capacity. He denies symptoms of chest pain or pressure either at rest or with exertion. He has been under increased stress. His had a stroke late last year and is currently going through rehabilitation. He has been taking his blood pressure at home and almost a daily basis. He had a record of his readings. During questioning, he admitted having increasing sore dry throat since starting lisinopril. He has had no symptoms concerning for CHF including PND, orthopnea, or lower extremity edema. Denies of any feelings of palpitations, lightheadedness, dizziness, or syncope PAST MEDICAL HISTORY Diagnosis Date Dyslipidemia Dyspnea on exertion Former smoker, stopped smoking in distant past HTN (hypertension) Kidney stones HARLEY on CPAP Rosacea PAST SURGICAL HISTORY Procedure Laterality Date COLONOSCOPY 2006 COLONOSCOPY FLX DX W/COLLJ SPEC WHEN PFRMD 02/15/2019 Colonoscopy HERNIA REPAIR HX childhood and 2007 x3 PAST SURGICAL HISTORY OF lithotripsy, multiple PAST SURGICAL HISTORY OF laser prostate TONSILLECTOMY HX SOCIAL HISTORY Social History Tobacco Use Smoking status: Former Smoker Packs/day: 1.00 Years: 7.00 Pack years: 7.00 Types: Cigarettes Quit date: 12/27/1976 Years since quittin.7 Smokeless tobacco: Never Used Tobacco comment: on and off Vaping Use Vaping Use: Never used Substance Use Topics Alcohol use: Yes Comment: occasional Drug use: No FAMILY HISTORY Problem Relation Age of Onset other (No CAD) Father Cancer Mother , lung Cancer Brother thyroid ALLERGIES: ALLERGIES No Known Allergies MEDICATIONS: metoprolol tartrate, short acting, (LOPRESSOR) 50 mg tablet Take 1 tablet by mouth q 12 HR. Azelaic Acid (FINACEA) 15 % gel Apply 1 application to affected area twice daily. Use a pea-sized amount for the face. doxycycline (VIBRA-TABS) 100 mg tablet Take 1 tablet by mouth twice daily. omeprazole (PRILOSEC) 20 mg capsule Take 1 capsule by mouth daily before breakfast. 1/2 hr before meal. tamsulosin ER (FLOMAX) 0.4 mg Take 1 capsule by mouth twice daily. Dr. Shaffer. sennosides/docusate sodium (COLACE 2-IN-1 ORAL) Take by mouth. acetaminophen (TYLENOL) 500 mg tablet Take 2 tablets by mouth every 6 hours. aspirin, enteric coated (ASPIRIN, ENTERIC COATED) 81 mg EC tablet Take 2 tablets by mouth once daily. losartan (COZAAR) 50 mg tablet Take 1 tablet by mouth once daily. rosuvastatin (CRESTOR) 40 mg tablet Take 1 tablet by mouth daily at bedtime. [DISCONTINUED] amiodarone (PACERONE) 200 mg tablet Take 1 tablet by mouth once daily. [DISCONTINUED] furosemide (LASIX) 20 mg tablet Take 1 tablet by mouth once daily. REVIEW OF SYSTEMS: Review of Systems Constitutional: Negative for chills, fever, malaise/fatigue and weight loss. HENT: Negative for hearing loss and sore throat. Eyes: Negative for blurred vision and double vision. Respiratory: Negative. Cardiovascular: Negative. Genitourinary: Negative for dysuria, frequency, hematuria and urgency. Musculoskeletal: Negative. Skin: Negative. Neurological: Negative for dizziness, seizures, loss of consciousness, weakness and headaches. Endo/Heme/Allergies: Negative for environmental allergies. Does not bruise/bleed easily. Psychiatric/Behavioral: Negative for depression. PHYSICAL EXAMINATION: BP 164/82 Pulse 56 Wt 174 lb (78.9kg) SpO2 97% General: Very pleasant gentleman sitting comfortable no apparent distress. He is alert and oriented x3 HEENT: Carotid upstrokes are brisk bilaterally without bruits no JVD appreciated. Pulmonary: Lungs are clear no rales, wheezes, rhonchi Cardiovascular: Normal S1, S2 with regular rate and rhythm. No murmurs, rubs, or gallops Extremities: Warm, well-perfused, no lower extremity edema. 2+ distal pulses CARDIOVASCULAR MEDICINE TESTING: Cardiac Catheterization [place] 06/05/2019: POST PROCEDURE DIAGNOSIS: 1. [place] Coronary Artery Disease in the LAD (Severe) 99% proximal, RCA (RESEARCH NEUROPSYCHOLOGIST) and LCX (RESEARCH NEUROPSYCHOLOGIST) 2. Normal carotid arteries Echocardiogram 06/05/2019 CONCLUSIONS: - Technically difficult exam due to suboptimal positioning and post cath. - Exam indication: Shortness of Breath - The left ventricle is normal in size. Left ventricular systolic function is normal. EF = 63 5% (2D biplane) - The right ventricle is normal in size. Right ventricular systolic function is normal. - The visualized aorta is dilated with a maximal dimension of 4.1 cm. - Exam was compared with the prior OUTSIDE echocardiographic exam performed on 05/2019 IMPRESSION: Mr. Loaiza is a 75 year old gentleman with a history of coronary artery disease prior coronary bypass grafting (MOHR-LAD, SVG-OM, SVG-PDA May 2019), hypertension, dyslipidemia who presents to the office for routine follow-up PLAN AND RECOMMENDATIONS: 1. 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 - ICD9: 414.05, ICD10: I25.810 (primary diagnosis) Patient doing well without symptoms concerning for angina. Continue current medical therapy and risk factor modification 2. Primary hypertension - ICD9: 401.9, ICD10: I10 Patient complaining of worsening dry throat since starting lisinopril. May be related to the SUSAN inhibitor. I have stopped lisinopril and started losartan 50 mg daily Home blood pressure readings demonstrate adequate control of his hypertension. - LOSARTAN 50 MG TABLET - BASIC METABOLIC PNL 3. Dyslipidemia - ICD9: 272.4, ICD10: E78.5 Most recent fasting lipid panel April 2021. LDL cholesterol 100 mg/dL. I stopped lisinopril and started Crestor 40 mg daily. Potential side effects were reviewed. Repeat fasting lipid panel in 3 to 4 months - ROSUVASTATIN 40 MG TABLET - ALT/SGPT - AST/SGOT BLD - LIPID PANEL BASIC 4. HARLEY on CPAP - ICD9: 327.23, V46.8, ICD10: G47.33, Z99.89 5. Dyspnea on exertion - ICD9: 786.09, ICD10: R06.00 Drake Mccarthy MD documented in this encounter [facility] 08-25-2021 Miscellaneous Notes See update from pt and refill request. Metoprolol 50 mg previous Rx came from Cardio. Jocelyn Kee Ma documented in this encounter [facility] 08-20-2021 Miscellaneous Notes Call to pt, pt states BP was elevated but under better control with maintenance from Bella Mead MD. Was wanting to f/u with however in regards to this. Able to schedule with 08/31/21 at 1000. Patient called and was upset that his appt with Dr. Delong had been canceled for August and September. He states he is having blood pressure concerns and does not want to wait until end of December to see Cheyanne Gonzalez. Please call patient and advise. 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 CT chest shows calcified coronary vessels Echo 05/07/19 w/ EF 66%, grade I diastolic dysfunction Cycle Troponin x3 with EKGs PRN for ACS rule out Check lipid panel and A1c for risk stratification Maintain continuous telemetry monitoring Cards consult as obtain to obtain stress test over weekend documented as of this encounter (statuses as of 08/25/2021) [facility] History of Past illness Narrative* Problem Noted Date Resolved Date Chest pain 06/05/2019 06/11/2019 Chest pain 06/01/2019 06/02/2019 Last Assessment & Plan: Concerning 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 & 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 CT chest shows calcified coronary vessels Echo 05/07/19 w/ EF 66%, grade I diastolic dysfunction Cycle Troponin x3 with EKGs PRN for ACS rule out Check lipid panel and A1c for risk stratification Maintain continuous telemetry monitoring Cards consult as obtain to obtain stress test over weekend documented as of this encounter (statuses as of 08/31/2021) [facility] History of Past illness Narrative* Problem Noted Date Resolved Date Chest pain 06/05/2019 06/11/2019 Chest pain 06/01/2019 06/02/2019 Last Assessment & Plan: Concerning 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 & 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 CT chest shows calcified coronary vessels Echo 05/07/19 w/ EF 66%, grade I diastolic dysfunction Cycle Troponin x3 with EKGs PRN for ACS rule out Check lipid panel and A1c for risk stratification Maintain continuous telemetry monitoring Cards consult as obtain to obtain stress test over weekend documented as of this encounter (statuses as of 09/17/2021) [facility] History of Past illness Narrative* Problem Noted Date Resolved Date Chest pain 06/05/2019 06/11/2019 Chest pain 06/01/2019 06/02/2019 Last Assessment & Plan: Concerning 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 & 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 CT chest shows calcified coronary vessels Echo 05/07/19 w/ EF 66%, grade I diastolic dysfunction Cycle Troponin x3 with EKGs PRN for ACS rule out Check lipid panel and A1c for risk stratification Maintain continuous telemetry monitoring Cards consult as obtain to obtain stress test over weekend documented as of this encounter (statuses as of 09/17/2021) [facility] History of Past illness Narrative* Problem Noted Date Resolved Date Chest pain 06/05/2019 06/11/2019 Chest pain 06/01/2019 06/02/2019 Last Assessment & Plan: Concerning 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 & 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 CT chest shows calcified coronary vessels Echo 05/07/19 w/ EF 66%, grade I diastolic dysfunction Cycle Troponin x3 with EKGs PRN for ACS rule out Check lipid panel and A1c for risk stratification Maintain continuous telemetry monitoring Cards consult as obtain to obtain stress test over weekend documented as of this encounter (statuses as of 11/03/2021) [facility] History of Past illness Narrative* Problem Noted Date Resolved Date Chest pain 06/05/2019 06/11/2019 Chest pain 06/01/2019 06/02/2019 Last Assessment & Plan: Concerning 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 & 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 CT chest shows calcified coronary vessels Echo 05/07/19 w/ EF 66%, grade I diastolic dysfunction Cycle Troponin x3 with EKGs PRN for ACS rule out Check lipid panel and A1c for risk stratification Maintain continuous telemetry monitoring Cards consult as obtain to obtain stress test over weekend documented as of this encounter (statuses as of 11/09/2021) [facility] History of Past illness Narrative* Problem Noted Date Resolved Date Chest pain 06/05/2019 06/11/2019 Chest pain 06/01/2019 06/02/2019 Last Assessment & Plan: Concerning 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 & 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 CT chest shows calcified coronary vessels Echo 05/07/19 w/ EF 66%, grade I diastolic dysfunction Cycle Troponin x3 with EKGs PRN for ACS rule out Check lipid panel and A1c for risk stratification Maintain continuous telemetry monitoring Cards consult as obtain to obtain stress test over weekend documented as of this encounter (statuses as of 03/15/2022) [facility] History of Past illness Narrative* Problem Noted Date Resolved Date Chest pain 06/05/2019 06/11/2019 Chest pain 06/01/2019 06/02/2019 Last Assessment & Plan: Concerning 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 & 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 CT chest shows calcified coronary vessels Echo 05/07/19 w/ EF 66%, grade I diastolic dysfunction Cycle Troponin x3 with EKGs PRN for ACS rule out Check lipid panel and A1c for risk stratification Maintain continuous telemetry monitoring Cards consult as obtain to obtain stress test over weekend documented as of this encounter (statuses as of 04/16/2022) [facility] History of Past illness Narrative* Problem Noted Date Resolved Date Chest pain 06/05/2019 06/11/2019 Chest pain 06/01/2019 06/02/2019 Last Assessment & Plan: Concerning 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 & 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 CT chest shows calcified coronary vessels Echo 05/07/19 w/ EF 66%, grade I diastolic dysfunction Cycle Troponin x3 with EKGs PRN for ACS rule out Check lipid panel and A1c for risk stratification Maintain continuous telemetry monitoring Cards consult as obtain to obtain stress test over weekend documented as of this encounter (statuses as of 04/16/2022) [facility] History of Past illness Narrative* Problem Noted Date Resolved Date Chest pain 06/05/2019 06/11/2019 Chest pain 06/01/2019 06/02/2019 Last Assessment & Plan: Concerning 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 & 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 CT chest shows calcified coronary vessels Echo 05/07/19 w/ EF 66%, grade I diastolic dysfunction Cycle Troponin x3 with EKGs PRN for ACS rule out Check lipid panel and A1c for risk stratification Maintain continuous telemetry monitoring Cards consult as obtain to obtain stress test over weekend documented as of this encounter (statuses as of 05/06/2022) [facility] History of Past illness Narrative* Problem Noted Date Resolved Date Chest pain 06/05/2019 06/11/2019 Chest pain 06/01/2019 06/02/2019 Last Assessment & Plan: Concerning 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 & 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 CT chest shows calcified coronary vessels Echo 05/07/19 w/ EF 66%, grade I diastolic dysfunction Cycle Troponin x3 with EKGs PRN for ACS rule out Check lipid panel and A1c for risk stratification Maintain continuous telemetry monitoring Cards consult as obtain to obtain stress test over weekend documented as of this encounter (statuses as of 05/19/2022) [facility] History of Past illness Narrative* Problem Noted Date Resolved Date Chest pain 06/05/2019 06/11/2019 Chest pain 06/01/2019 06/02/2019 Last Assessment & Plan: Concerning 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 & 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 CT chest shows calcified coronary vessels Echo 05/07/19 w/ EF 66%, grade I diastolic dysfunction Cycle Troponin x3 with EKGs PRN for ACS rule out Check lipid panel and A1c for risk stratification Maintain continuous telemetry monitoring Cards consult as obtain to obtain stress test over weekend documented as of this encounter (statuses as of 05/24/2022) [facility] History of Past illness Narrative* Problem Noted Date Resolved Date Chest pain 06/05/2019 06/11/2019 Chest pain 06/01/2019 06/02/2019 Last Assessment & Plan: Concerning 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 & 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 CT chest shows calcified coronary vessels Echo 05/07/19 w/ EF 66%, grade I diastolic dysfunction Cycle Troponin x3 with EKGs PRN for ACS rule out Check lipid panel and A1c for risk stratification Maintain continuous telemetry monitoring Cards consult as obtain to obtain stress test over weekend documented as of this encounter (statuses as of 06/02/2022) [facility] History of Past illness Narrative* Problem Noted Date Resolved Date Chest pain 06/05/2019 06/11/2019 Chest pain 06/01/2019 06/02/2019 Last Assessment & Plan: Concerning 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 & 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 CT chest shows calcified coronary vessels Echo 05/07/19 w/ EF 66%, grade I diastolic dysfunction Cycle Troponin x3 with EKGs PRN for ACS rule out Check lipid panel and A1c for risk stratification Maintain continuous telemetry monitoring Cards consult as obtain to obtain stress test over weekend documented as of this encounter (statuses as of 06/06/2022) [facility] History of Past illness Narrative* Problem Noted Date Resolved Date Chest pain 06/05/2019 06/11/2019 Chest pain 06/01/2019 06/02/2019 Last Assessment & Plan: Concerning 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 & 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 CT chest shows calcified coronary vessels Echo 05/07/19 w/ EF 66%, grade I diastolic dysfunction Cycle Troponin x3 with EKGs PRN for ACS rule out Check lipid panel and A1c for risk stratification Maintain continuous telemetry monitoring Cards consult as obtain to obtain stress test over weekend documented as of this encounter (statuses as of 08/23/2022) [facility] History of Past illness Narrative* Problem Noted Date Resolved Date Chest pain 06/05/2019 06/11/2019 Chest pain 06/01/2019 06/02/2019 Last Assessment & Plan: Concerning 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 & 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 CT chest shows calcified coronary vessels Echo 05/07/19 w/ EF 66%, grade I diastolic dysfunction Cycle Troponin x3 with EKGs PRN for ACS rule out Check lipid panel and A1c for risk stratification Maintain continuous telemetry monitoring Cards consult as obtain to obtain stress test over weekend documented as of this encounter (statuses as of 10/22/2022) [facility] History of Past illness Narrative* Problem Noted Date Resolved Date Chest pain 06/05/2019 06/11/2019 Chest pain 06/01/2019 06/02/2019 Last Assessment & Plan: Concerning 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 & 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 CT chest shows calcified coronary vessels Echo 05/07/19 w/ EF 66%, grade I diastolic dysfunction Cycle Troponin x3 with EKGs PRN for ACS rule out Check lipid panel and A1c for risk stratification Maintain continuous telemetry monitoring Cards consult as obtain to obtain stress test over weekend documented as of this encounter (statuses as of 10/22/2022) [facility] History of Past illness Narrative* Problem Noted Date Diagnosed Date Resolved Date Chest pain 06/05/2019 06/11/2019 Chest pain 06/01/2019 06/02/2019 Last Assessment & Plan: Concerning 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 & 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 CT chest shows calcified coronary vessels Echo 05/07/19 w/ EF 66%, grade I diastolic dysfunction Cycle Troponin x3 with EKGs PRN for ACS rule out Check lipid panel and A1c for risk stratification Maintain continuous telemetry monitoring Cards consult as obtain to obtain stress test over weekend documented as of this encounter (statuses as of 11/09/2022) [facility] 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- Primary Primary hypertension Unspecified essential hypertension Dyslipidemia Other and unspecified hyperlipidemia HARLEY on CPAP Obstructive sleep apnea (adult) (pediatric) Dyspnea on exertion Other dyspnea and respiratory abnormality [facility] Primary hypertension- Primary Unspecified essential hypertension 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 Other hyperlipidemia Elevated glucose Other abnormal glucose [facility] Diagnosis Dyslipidemia Other and unspecified hyperlipidemia Primary hypertension Unspecified essential hypertension [facility] Diagnosis Screening for ischemic heart disease- Primary 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 Primary hypertension Unspecified essential hypertension Other hyperlipidemia HARLEY on CPAP Obstructive sleep apnea (adult) (pediatric) Dyspnea on exertion Other dyspnea and respiratory abnormality [facility] Diagnosis Tachycardia- Primary Tachycardia, unspecified Primary hypertension Unspecified essential hypertension Hx of CABG Postsurgical aortocoronary bypass status [facility] Diagnosis Essential hypertension- Primary Unspecified essential hypertension Tachycardia Tachycardia, unspecified 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 Other hyperlipidemia Elevated glucose Other abnormal glucose Hx of CABG Postsurgical aortocoronary bypass status GERD without esophagitis Esophageal reflux HARLEY on CPAP Obstructive sleep apnea (adult) (pediatric) Onychomycosis Dermatophytosis of nail [facility] Diagnosis Right knee pain, unspecified chronicity- Primary [facility] Diagnosis Dyslipidemia Other and unspecified hyperlipidemia [facility] Diagnosis Pain in toe of left foot- Primary Pain in limb Onychomycosis Dermatophytosis of nail Pain in toe of right foot Pain in limb Pes planus of both feet [facility] COVID- Primary [facility] Diagnosis Essential hypertension- Primary Unspecified essential hypertension Other hyperlipidemia Elevated glucose Other abnormal glucose 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 GERD without esophagitis Esophageal reflux HARLEY on CPAP Obstructive sleep apnea (adult) (pediatric) Hemorrhoids, unspecified hemorrhoid type documented in this encounter [facility] for referral (narrative)* Outpatient Procedure (Routine) - Closed Specialty Diagnoses / Procedures Referred By [facility] Referred To Contact [facility] [place] Diagnoses Screening for ischemic heart disease Procedures ECG COMPLETE ECG ROUTINE ECG W/LEAST 12 LDS W/I&R Drake Mccarthy MD [address] [place] [address] [facility] [address] [address] Referral ID Status Reason Start Date Expiration Date V isits Requested Visits Authorized [id number] Closed Auto-Generate d Referral 03/10/2022 03/10/2023 1 1 [facility] for referral (narrative)* Outpatient Procedure (Routine) - Closed Specialty Diagnoses / Procedures Referred By [facility] Referred To Contact [facility] Diagnoses Tachycardia Procedures ECG COMPLETE ECG ROUTINE ECG W/LEAST 12 LDS W/I&R Bella Mead MD [address] [place] [id number] [address] Referral ID Status Reason Start Date Expiration Date V isits Requested Visits Authorized [id number] Closed Auto-Generate d Referral 04/15/2022 04/15/2023 1 1 [facility] Summary Purpose Family History No Family History Records FoundNo Family History Records FoundNo Family History Records Found Advance Directives No Advanced Directives Records FoundDocuments on File Type Date Recorded Patient Dip Filler Expl anation Advance Directive(s) 06/05/2019 11:20 AM Advance Directive(s) 06/02/2019 9:26 AM Advance Directive(s) 02/15/2019 7:32 AM Advance Directive(s) 02/02/2019 2:43 PM Hospital Course Note HNO ID: [id number] Author: Trent Granda Service: Cardiac Surgery Author Type: Physician Regional Business Development Manager Type: Discharge Summary Filed: 06/11/2019 12:11 PM Note Text: Attestation signed by Nj Turner at 06/11/2019 2:37 PM Attending Note I have personally performed a face to face assessment of the patient and have reviewed the ROBERTO CARLOS/VICENTE note. Signature: Nj Turner MD Date: 06/11/2019 Time: 2:37 PM DISCHARGE SUMMARY PATIENT NAME: Leonor Loaiza ADMISSION DATE: 06/05/2019 DISCHARGE DATE: 06/11/2019 Attending Physician: Nj Turner Code Status: Not on file Highest Readmission Risk Score: 12 The 30 day readmissions risk score is derived from an internally validated risk model which evaluates patient level characteristics, utilization history, medication orders and lab results up until the day of discharg (more content not included)... Note HNO ID: [id number] Author: Navjot Turner Service: Cardiac Surgery Author Type: Physician Type: Brief Op Note Filed: 06/06/2019 2:00 PM Note Text: BRIEF OPERATIVE / PROCEDURE NOTE LOG ID: [id number] SURGERY/PROCEDURE DATE: 06/06/2019 INCISION/PROCEDURE START TIME: 9:21 AM INCISION CLOSE/PROCEDURE END TIME: SURGEON(S)/PROCEDURALIST(S) AND FILING CLERK(S): Surgeon(s) and Role: * Nj Turner - Primary Physician Regional Business Development Manager: Feliberto Kuhn (Pa); Marly Mora ([place]) Jesus Alberto SURGERY/PROCEDURE(S): [id number] ANESTHESIA: General FINDINGS: none ESTIMATED BLOOD LOSS: 200mls SPECIMENS: None COMPLICATIONS: None PRE-OP/PRE-PROCEDURE DIAGNOSIS: cad POST-OP/POST-PROCEDURE DIAGNOSIS: cad SIGNATURE: Nj Turner MD PATIENT NAME: Leonor Loaiza DATE: June 06, 2019 TIME: 2:00 PM PAGER/CONTACT #: Note HNO ID: [id number] Author: Bethany Taylor) [place] Service: Hospital Medicine Author Type: Nurse Practitioner Type: Discharge Summary Filed: 06/02/2019 11:38 AM Note Text: Attestation signed by Carlos Hidalgo at 06/02/2019 4:17 PM Discussed with provider below and I agree with her discharge documentation. Carlos Hidalgo MD DISCHARGE SUMMARY PATIENT NAME: Leonor Loaiza Code Status: Not on file Highest Readmission Risk Score: 4 The 30 day readmissions risk score is derived from an internally validated risk model which evaluates patient level characteristics, utilization history, medication orders and lab results up until the day of discharge. Patients with a score of 40 or above are considered highest risk for readmission. Specific patient level drivers will be listed at the bottom of the summary. Admission Informat (more content not included)... Procedure Findings Note HNO ID: [id number] Author: Navjot Turner Service: Cardiac Surgery Author Type: Physician Type: Brief Op Note Filed: 06/06/2019 2:00 PM Note Text: BRIEF OPERATIVE / PROCEDURE NOTE LOG ID: [id number] SURGERY/PROCEDURE DATE: 06/06/2019 INCISION/PROCEDURE START TIME: 9:21 AM INCISION CLOSE/PROCEDURE END TIME: SURGEON(S)/PROCEDURALIST(S) AND FILING CLERK(S): Surgeon(s) and Role: * Nj Turenr - Primary Physician Regional Business Development Manager: Feliberto Moseley ([place])) Regan Moseley) Jesus Alberto SURGERY/PROCEDURE(S): [id number] ANESTHESIA: General FINDINGS: none ESTIMATED BLOOD LOSS: 200mls SPECIMENS: None COMPLICATIONS: None PRE-OP/PRE-PROCEDURE DIAGNOSIS: cad POST-OP/POST-PROCEDURE DIAGNOSIS: cad SIGNATURE: Nj Turner MD PATIENT NAME: Leonor Loaiza DATE: June 06, 2019 TIME: 2:00 PM PAGER/CONTACT #: Reason for Referral Specialty Diagnoses / Procedures Referred By Haily shannon Referred To Contact Podiatry Diagnoses 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 Onychomycosis Procedures CONSULT TO PODIATRY OFFICE/OUTPATIENT [facility] 60-74 MINUTES Bella Mead MD [address] [place] [address] Referral ID Status Reason Start Date Expiration Date Visits Requested Visits Authorized [id number] Pending Review PCP Requested Referral 05/06/2022 05/06/2023 1 1 Specialty Diagnoses / Procedures Referred By Haily t Referred To Contact Orthopedics Diagnoses Right knee pain, unspecified chronicity Procedures CONSULT TO ORTHOPAEDICS OFFICE/OUTPATIENT [facility] 60-[place] [address] [place] [id number] Referral ID Status Reason Start Date Expiration Date Visits Requested Visits Authorized [id number] Pending Review PCP Requested Referral 05/17/2022 05/17/2023 1 1 Additional Source Comments (unrecognized sect ion and content) No Status Records FoundNo Status Records FoundNo Status Records Found INFORMATION SOURCE (unrecogn ized section and content) DATE CREATED AUTHOR AUTHOR'S ALVERTO ATION 04/03/2020 [facility] DATE CREATED AUTHOR AUTHOR'S ORGANOSVALDO ATION 04/12/2023 [facility] Source Comments (unrecognize d section and content) In the event this informatio n is protected by the Federal Confidentiality of Alcohol and Drug Abuse Patient Records regulations: The Federal rules restrict any use of the information to criminally investigate or prosecute any alcohol or drug abuse patient.[facility] Center[facility] the event this information is protected by the Federal Confidentiality of Alcohol and Drug Abuse Patient Records regulations: The Federal rules restrict any use of the information to criminally investigate or prosecute any alcohol or drug abuse patient.[facility] CenterIn the event this information is protected by the Federal Confidentiality of Alcohol and Drug Abuse Patient Records regulations: The Federal rules restrict any use of the information to criminally investigate or prosecute any alcohol or drug abuse patient.[facility] CenterIn the event this information is protected by the Federal Confidentiality of Alcohol and Drug Abuse Patient Records regulations: The Federal rules restrict any use of the information to criminally investigate or prosecute any alcohol or drug abuse patient.[facility] CenterIn the event this information is protected by the Federal Confidentiality of Alcohol and Drug Abuse Patient Records regulations: The Federal rules restrict any use of the information to criminally investigate or prosecute any alcohol or drug abuse patient.[facility] CenterIn the event this information is protected by the Federal Confidentiality of Alcohol and Drug Abuse Patient Records regulations: The Federal rules restrict any use of the information to criminally investigate or prosecute any alcohol or drug abuse patient.[facility] CenterIn the event this information is protected by the Federal Confidentiality of Alcohol and Drug Abuse Patient Records regulations: The Federal rules restrict any use of the information to criminally investigate or prosecute any alcohol or drug abuse patient.[facility] CenterIn the event this information is protected by the Federal Confidentiality of Alcohol and Drug Abuse Patient Records regulations: The Federal rules restrict any use of the information to criminally investigate or prosecute any alcohol or drug abuse patient.[facility] CenterIn the event this information is protected by the Federal Confidentiality of Alcohol and Drug Abuse Patient Records regulations: The Federal rules restrict any use of the information to criminally investigate or prosecute any alcohol or drug abuse patient.[facility] CenterIn the event this information is protected by the Federal Confidentiality of Alcohol and Drug Abuse Patient Records regulations: The Federal rules restrict any use of the information to criminally investigate or prosecute any alcohol or drug abuse patient.[facility] CenterIn the event this information is protected by the Federal Confidentiality of Alcohol and Drug Abuse Patient Records regulations: The Federal rules restrict any use of the information to criminally investigate or prosecute any alcohol or drug abuse patient.[facility] CenterIn the event this information is protected by the Federal Confidentiality of Alcohol and Drug Abuse Patient Records regulations: The Federal rules restrict any use of the information to criminally investigate or prosecute any alcohol or drug abuse patient.[facility] CenterIn the event this information is protected by the Federal Confidentiality of Alcohol and Drug Abuse Patient Records regulations: The Federal rules restrict any use of the information to criminally investigate or prosecute any alcohol or drug abuse patient.[facility] CenterIn the event this information is protected by the Federal Confidentiality of Alcohol and Drug Abuse Patient Records regulations: The Federal rules restrict any use of the information to criminally investigate or prosecute any alcohol or drug abuse patient.[facility] CenterIn the event this information is protected by the Federal Confidentiality of Alcohol and Drug Abuse Patient Records regulations: The Federal rules restrict any use of the information to criminally investigate or prosecute any alcohol or drug abuse patient.[facility] CenterIn the event this information is protected by the Federal Confidentiality of Alcohol and Drug Abuse Patient Records regulations: The Federal rules restrict any use of the information to criminally investigate or prosecute any alcohol or drug abuse patient.[facility] CenterIn the event this information is protected by the Federal Confidentiality of Alcohol and Drug Abuse Patient Records regulations: The Federal rules restrict any use of the information to criminally investigate or prosecute any alcohol or drug abuse patient.[facility] CenterIn the event this information is protected by the Federal Confidentiality of Alcohol and Drug Abuse Patient Records regulations: The Federal rules restrict any use of the information to criminally investigate or prosecute any alcohol or drug abuse patient.[facility] CenterIn the event this information is protected by the Federal Confidentiality of Alcohol and Drug Abuse Patient Records regulations: The Federal rules restrict any use of the information to criminally investigate or prosecute any alcohol or drug abuse patient.[facility] CenterIn the event this information is protected by the Federal Confidentiality of Alcohol and Drug Abuse Patient Records regulations: The Federal rules restrict any use of the information to criminally investigate or prosecute any alcohol or drug abuse patient.[facility] Reason for Visit (unrecogniz ed section and content) Reason Comments Follow Up Hypertension Reason Comments Chest Pain Reason Comments 6 Month Exam Reason Comments Established Patient Follow-Up Reason Comments Future Appointment apt today Reason Comments Palpitations Increased heart rate Reason Comments F/U 6 Month Reason Onset Date Comments Refill Request 05/24/2022 Reason Comments New Pain Nail Fungus Specialty Diagnoses / Procedures Referred By Haily shannon Referred To Contact Podiatry Diagnoses 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 Onychomycosis Procedures CONSULT TO PODIATRY OFFICE/OUTPATIENT NEW [facility]IGH MDM 60-74 MINUTES Bella Mead MD [address] [place] [address] Referral ID Status Reason Start Date Expiration Date Visits Requested Visits Authorized [id number] Pending Review PCP Requested Referral 05/06/2022 05/06/2023 1 1 Reason Onset Date Comments Refill Request 08/23/2022 Reason Comments Covid Positive Reason Comments F/U 6 Month Care Teams (unrecognized sec tion and content) Test Developer Relationship Specialty Start Date End Date Bella Mead MD [address] [place] [address] PCP - General Family Practice 01/15/19 Test Developer Relationship Specialty Start Date End Date Bella Mead MD [address] [place] [address] PCP - General Family Practice 01/15/19 Test Developer Relationship Specialty Start Date End Date Bella Mead MD [address] [facility] [place] [address] PCP - General Family Practice 01/15/19 Test Developer Relationship Specialty Start Date End Date Bella Mead MD [address] [facility] [place] [address] PCP - General Family Practice 01/15/19 Test Developer Relationship Specialty Start Date End Date Bella Mead MD [address] [facility] [place] [address] PCP - General Family Practice 01/15/19 Test Developer Relationship Specialty Start Date End Date Bella Mead MD [address] [facility] [place] [address] PCP - General Family Practice 01/15/19 Test Developer Relationship Specialty Start Date End Date Bella Mead MD [address] [facility] [place] [address] PCP - General Family Medicine 01/15/19 Test Developer Relationship Specialty Start Date End Date Bella Mead MD [address] [facility] [place] [address] PCP - General Family Medicine 01/15/19 Test Developer Relationship Specialty Start Date End Date Bella Mead MD [address] [facility] [place] [address] PCP - General Family Medicine 01/15/19 Test Developer Relationship Specialty Start Date End Date Bella Mead MD [address] [facility] [place] [address] PCP - General Family Medicine 01/15/19 Test Developer Relationship Specialty Start Date End Date Bella Mead MD [address] [facility] [place] [address] PCP - General Family Medicine 01/15/19 Test Developer Relationship Specialty Start Date End Date Bella Mead MD [address] [facility] [place] [address] PCP - General Family Medicine 01/15/19 Test Developer Relationship Specialty Start Date End Date Bella Mead MD [address] [facility] [place] [address] PCP - General Family Medicine 01/15/19 Test Developer Relationship Specialty Start Date End Date Bella Mead MD [address] [facility] [place] [address] PCP - General Family Medicine 01/15/19 Test Developer Relationship Specialty Start Date End Date Bella Mead MD [address] [facility] [place] [address] PCP - General Family Medicine 01/15/19 Test Developer Relationship Specialty Start Date End Date Bella Mead MD [address] [facility] [place] [address] PCP - General Family Medicine 01/15/19 FOR RECORDS PERTAINING TO PATIENTS WHO ARE OR HAVE BEEN ENROLLED IN A CHEMICAL DEPENDENCY/SUBSTANCEABUSE PROGRAM, SOME INFORMATION MAY BE OMITTED. This clinical summary was aggregated from multiple sources. Caution should be exercised in using it in the provision of clinical care. This summary normalizes information from multiple sources, and as a consequence, information in this document may materially change the coding, format and clinical context of patient data. In addition, data may be omitted in some cases. CLINICAL DECISIONS SHOULD BE BASED ON THE PRIMARY CLINICAL RECORDS. [employer]. provides no warranty or guarantee of the accuracy or completeness of information in this document.
[2023-04-23 10:12] LABS: Absolute Lymphocyte Count 1.48 X10^3/uL (0.83-4.51); Basophil# 0.05 X10^3/uL; Basophil% 0.7 % (0-1); Eosinophil# 0.11 X10^3/uL; Eosinophils% 1.6 % (0-5); Hematocrit 51.2 % (40-54); Hemoglobin 16.5 g/dL (13.0-16.5); Lymphocyte # 1.48 X10^3/ul (0.83-4.51); Lymphocyte % 21.9 % (19-41); Mean Corp Hgb Conc 32.2 g/dL (32-36); Mean Corpuscular Hgb 31.2 pg (27.0-32.0); Mean Corpuscular Volume 96.8 fL (80-94); Mean Platelet Vol. 9.4 fl (6.2-12.0); Monocyte# 1.08 X10^3/uL; NRBC Flagged by Analyzer 0 % (0-5); Neutrophil # 3.99 X10^3/uL (2.7-7.7); Neutrophil % 59.2 % (47-70); Platelet Count 309 K/mm3 (150-450); RBC Distribution Width CV 11.8 % (11.6-14.6); RBC Distribution Width SD 42.1 fl (35.1-43.9); Red Blood Count 5.29 M/mm3 (4.6-6.2); White Blood Count 6.8 K/mm3 (4.4-11.0)
[2023-04-23 10:42] LABS: Anion Gap 2 (5-15); BUN 24 mg/dL (7-18); Calcium,Total 9.3 mg/dL (8.5-10.1); Chloride 108 mmol/L (98-107); Creatinine, Serum 1.09 mg/dL (0.70-1.30); EST Glomerular Filtration Rate 70 mL/min (>60); Est Glom Filt Rate - Afr Amer 84 mL/min (>60); Glucose 69 mg/dL (74-106); Magnesium 2.4 mg/dL (1.6-2.6); Potassium 4.3 mmol/L (3.5-5.1); Sodium Level 141 mmol/L (136-145); Thyroid Stim Hormone (TSH) 1.94 uIU/mL (0.358-3.74)
[2023-04-23 10:44] LABS: International Normalized Ratio 1.1; Prothrombin Time (Protime)PT. 13.8 SECONDS (11.7-14.9)
[2023-04-23 10:45] LABS: Partial Thromboplast Time 30.4 Seconds (24.1-36.2)
[2023-04-23 11:34] VITALS: BP 101/75; PULSE 69; RESP 18; O2SAT 98
== END 2023-04-23 11:39 | disposition home or self-care (01) ==
PROVIDERS: Emergency Provider Emergency Medicine; PCP Family Medicine; Visit Provider Emergency Medicine
DX: I48.91 Unspecified atrial fibrillation (principal); I25.10 Atherosclerotic heart disease of native coronary artery without angina pectoris; E78.5 Hyperlipidemia, unspecified; Z79.82 Long term (current) use of aspirin; Z79.01 Long term (current) use of anticoagulants; Z87.891 Personal history of nicotine dependence; Z95.1 Presence of aortocoronary bypass graft; I10 Essential (primary) hypertension
CPT/HCPCS: 71045; 80048; 83735; 84443; 85025; 85610; 85730; 93005; 99284; A4216

== ENCOUNTER 2023-05-05 10:32 | Observation (INO) | payer MEDICARE, SELFPAY ==
[2019-11-08 06:42] VITALS: BMI 25.9
[2023-05-05] VITALS (14 sets, daily range): BP systolic 127–177; BP diastolic 63–87; PULSE 48–70; RESP 13–21; TEMP 36–36.7; O2SAT 94–99; BMI 24.0; BMI 23.2
--- NOTE | 2023-05-05 11:06 | EKG12_ITS ---
Test Reason : CHEST PAIN Blood Pressure : / mmHG Vent. Rate : 047 BPM Atrial Rate : 047 BPM P-R Int : 176 ms QRS Dur : 122 ms QT Int : 440 ms P-R-T Axes : 078 -68 018 degrees QTc Int : 389 ms Sinus bradycardia Possible Left atrial enlargement Left anterior fascicular block Left ventricular hypertrophy with QRS widening ( R in aVL , Calderon product ) Nonspecific ST abnormality Abnormal ECG Confirmed by ESPERANZA DEL CASTILLO, GABRIELA ([id number]), writer editor SERGO BURTON ([id number]) on 05/06/2023 7:18:58 AM Referred By: Confirmed By:GABRIELA MATA MD
--- NOTE | 2023-05-05 11:06 | RAD_ITS ---
STUDY: X-RAY CHEST REASON FOR EXAM: Male, 77 years old. Chest pain TECHNIQUE: Single AP portable view of the chest. COMPARISON: Comparison is made with prior study April 23, 2023. FINDINGS: EKG electrodes are seen. Hyperinflation. There is no demonstrated pleural abnormality. Sternal cerclage wires and vascular clips are present from a prior sternotomy and coronary artery bypass graft procedure (CABG). Normal mediastinum and meka. Normal visualized pulmonary arteries. There is atherosclerotic calcification of the aortic arch with tortuosity. Normal visualized thoracic spine. Normal visualized ribs, clavicles, and shoulders. There is no demonstrated abnormality of the visualized soft tissue structures of the upper abdomen. RAD/Chest 1 View (Portable) IMPRESSION: Hyperinflation. The lungs are clear. Electronically Signed: Mo Mares MD at 12:07 [facility] ,
--- NOTE | 2023-05-05 11:07 | EDS_ITS ---
HPI History of Present Illness Chief Complaint: Chest Pain Detail of Chief Complaint: Tightness pressure with radiation to the left arm and shortness of breath Informant: patient Onset/Context/Timing Onset: Weeks (Episode occurred 1 week ago.) Activity at onset: sudden and exertion Timing: Intermittent and Lasts (He is depending on the amount of exertion) Quality: Positive for Pressure and Tightness Location: Substernal and Left Chest Current Severity: Mild Worsened By: Exertion; Not Worsened By Movement of Arm, Movement of Torso, Eating, Palpation, Breathing or Coughing Relieved By: Rest Associated Symptoms: Positive for Diaphoresis and Dyspnea; Negative for Nausea, Vomiting, Cough, Fever, Lightheadedness, Acid Reflux or Palpitations Narrative Narrative: Is a 77-year-old male with history of hypertension, 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 He is presently on Eliquis. He took 2 aspirin this morning. Patient presents because of a chest pressure tightness mid to left side of his chest with radiation to his left scapular area associated with shortness of peg th and diaphoresis. No episode is occurred at rest. Every episode is occurred with activity/exertion. Yesterday he was on the elliptical and developed pain after 15 minutes. He states normally is able to ride elliptical with 30 minutes without difficulty. He did become warm and flushed and may have been diaphoretic and did complain of increased shortness of breath. Today he presents after minimal activity with chest tightness/pressure with shortness of breath. Patient denies history of VTE. He denies leg pain, swelling or discoloration. Patient denies PND or orthopnea. Patient has no contradict indication to anticoagulation. Prior Similar Symptoms: No Recent Illness/Hospitalization: Yes (Atrial fibrillation) CVD Risk Factors: Positive for Hypertension, Hypercholesterolemia and Smoking (Quit 1976); Negative for Diabetes or Family History 1' </=55 PE Risk Factors: Negative for Recent Travel/Surgery, Recent Immobilization, Prior DVT or PE, Cancer or OCP + Smoking + >/=35 TAD Risk Factors: Positive for Hypertension; Negative for Marfan's Syndrome or Family History [facility] Medical History Acne rosacea Atherosclerotic heart disease of [place] coronary artery without angina pectoris Dyslipidemia Dyspnea on exertion Former smoker, stopped smoking in distant past Hypertension Kidney stones HARLEY on CPAP Home Medications aspirin 81 mg tablet,delayed release 162 mg PO DAILY@0800 heart health 01/22/14 [History Last Taken 05/31/19] atorvastatin 10 mg tablet 40 mg PO QHS cholesterol 01/22/14 [History Last Taken 05/31/19] acetaminophen 500 mg tablet 500 - 1,000 mg PO Q6H PRN PRN Pain Or Fever 07/05/19 [History Last Taken Unknown] sennosides 8.6 mg-docusate sodium 50 mg tablet 1 ea PO BID bowel care 07/05/19 [History Last Taken Unknown] tamsulosin 0.4 mg capsule 0.4 mg PO BID prostate 07/05/19 [History Last Taken Unknown] metoprolol tartrate 25 mg tablet 25 mg PO BID heart 11/27/19 [History Last Taken 11/27/19] omeprazole 20 mg capsule,delayed release 20 mg PO DAILY 03/08/20 [History Last Taken Unknown] azelaic acid 15 % topical gel 1 applic topical BID 09/17/21 [History Last Taken Unknown] doxycycline hyclate 20 mg tablet 20 mg PO BID 09/17/21 [History Last Taken Unknown] losartan 50 mg tablet 50 mg PO DAILY 09/17/21 [History Last Taken Unknown] oxycodone 5 mg tablet 5 mg PO Q6H PRN pain 3 days #12 tabs 06/15/22 [Rx Last Taken Unknown] apixaban 5 mg tablet (Eliquis) 5 mg PO BID #60 tabs 04/23/23 [Rx Last Taken Unknown] Allergy/AdvReac Type Severity Reaction Status Date / Time No Known Allergies Allergy Verified 05/05/23 10:33 Surgical History H/O hernia repair H/O lithotripsy Hx of tonsillectomy S/P triple vessel bypass Social History Smoking Status: Former smoker ROS ROS ED Constitutional Constitutional ED: Denies chills, fever(s), subjective or sweats Eyes Eyes: Reports none ENT ENT ED: Denies ear pain or rhinorrhea Cardiovascular Cardiovascular: Reports as per HPI; Denies orthopnea or paroxysmal nocturnal dyspnea Respiratory/Chest Respiratory/Chest: Reports dyspnea and dyspnea on exertion; Denies cough, orthopnea or paroxysmal nocturnal dyspnea Gastrointestinal Gastrointestinal: Denies abdominal pain, nausea or vomiting Genitourinary Genitourinary ED: Denies dysuria, hematuria or urinary frequency Musculoskeletal Musculoskeletal: Denies arthralgias, back pain or myalgias Integumentary Denies rash Neurologic Neurologic: Denies headache(s) or paresthesias Endocrine Endocrinology: Denies cold intolerance or heat intolerance Hematologic/Lymphatic Hematologic/Lymphatic: Denies easy bleeding or easy bruising EXAM Physical Exam Const Vital Signs: 05/05/23 10:34 05/05/23 11:28 05/05/23 11:28 Temperature 96.8 F L Temperature Source Temporal Pulse Rate 49 L 52 L Respiratory Rate 16 13 Respiratory Effort Blood Pressure 151/79 H Blood Pressure Mean 103 Pulse Ox 98 98 Oxygen Delivery Method Room Air Room Air Room Air 05/05/23 11:28 05/05/23 12:00 05/05/23 13:00 Temperature Temperature Source Pulse Rate 55 L 59 L Respiratory Rate 21 H 19 H Respiratory Effort Normal Blood Pressure 137/81 H 142/79 H Blood Pressure Mean 99 100 Pulse Ox 98 98 Oxygen Delivery Method Room Air Room Air 05/05/23 14:00 Temperature Temperature Source Pulse Rate 48 L Respiratory Rate 18 Respiratory Effort Blood Pressure 143/87 H Blood Pressure Mean 105 Pulse Ox 97 Oxygen Delivery Method Room Air Positive well nourished and well developed General Appearance ED: well developed and NAD HEENT Reports TM's clear and moist mucous membranes HEENT Narrative: Ears are normal. Nares patent. Posterior pharynx is normal. normocephalic and atraumatic Tympanic Membrane ED: Yes TM's clear Eyes PERRL and EOMs intact bilaterally General Eye ED: Negative for pale conjunctiva or scleral icterus Neck no lymphadenopathy, supple and no JVD Chest Wall inspection of chest normal and palpation of chest normal Resp normal respiratory effort and clear to auscultation bilaterally Cardio regular rate, regular rhythm, S1 normal heart sound, S2 normal heart sound and no murmurs Peripheral Pulses: pulses 2+ throughout GI normal to inspection, nondistended, normoactive bowel sounds, soft to palpation, non-tender and non-distended; Negative for hepatosplenomegaly Back/Spine no CVA tenderness Extremity normal to inspection Extremity Narrative: There is no asymmetry, swelling, discoloration, leg vein distention, palpable cords or tenderness along the distribution of the deep venous system. 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 Since patient is still experiencing chest pressure/tightness nitroglycerin was ordered. He took aspirin this morning x 2 as well as Eliquis. Is on the Eliquis because of the newly diagnosed atrial fibrillation. Chest x-ray was obtained to assess mediastinum and lung parenchyma. CBC to assess H&H. BMP to assess renal function. Troponin levels to determine if he had a cardiac ischemic event that was significant since he has had 10 intermittent episodes over the past week. History & Record Review Discussion w/independent historian: Patient Additional record(s) reviewed:: Prior outpatient record (Had a echo without contrast performed May [address] Jay Casillas. Patient had a transthoracic echo performed. The left ventricle was normal in size. Estimated ejection fraction is 55?5%. 2D plain grade 1 left ventricular diastolic dysfunction. Right ventricle is normal in ) Lab Data Attestation: I reviewed the patient's lab results. Lab results narrative: BC is normal. Basic metabolic panel is normal. First troponin is normal. Patient had an outpatient echo. Labs: Laboratory Results - last 24 hr 05/05/23 05/05/23 11:15 13:30 WBC 6.1 RBC 5.32 Hgb 16.0 Hct 50.3 MCV 94.5 H MCH 30.1 MCHC 31.8 L RDW Std Deviation 40.8 RDW Coeff of [place] 11.9 Plt Count 349 MPV 9.0 Immature Gran % (Auto) 0.700 Neut % (Auto) 67.0 Lymph % (Auto) 16.0 L [place] % (Auto) 13.5 H Eos % (Auto) 1.8 Baso % (Auto) 1.0 Absolute Neuts (auto) 4.1 Absolute Lymphs (auto) 0.98 Nucleated RBC % 0 Sodium 140 Potassium 4.5 Chloride 107 Carbon Dioxide 30.0 Anion Gap 3 L BUN 18 Creatinine 0.95 Estim Creat Clear Calc 61.85 Est GFR (MDRD) Af Amer 99 Est GFR (MDRD) Non-Af 82 BUN/Creatinine Ratio 19.0 Glucose 100 Calcium 9.5 Troponin I High Sens 8 9 Radiography Diagnostic Testing: Clinical Impression(s) from Imaging Studies Chest X-Ray 05/05/23 11:06 IMPRESSION: Hyperinflation. The lungs are clear. Electronically Signed: Mo Mares MD at 12:07 EST , Management Discussion w/another healthcare provider: Hospitalist and Brick Tester (To Dr. Archie Sanders regarding patient's history, presentation and concern for coronary disease, classic exertional angina. Agrees with admission to hospitalist and he will see in consultation.) Discharge Plan Triage Chief Complaint: Chest Pain ED Provider: Km Cosme Dx/Rx/DC Orders Clinical Impression: Exertional angina, Hypertension, CAD (coronary artery disease), Hyperlipidemia, Bradycardia Prescriptions: No Action atorvastatin 10 MG tablet 40 mg PO QHS aspirin 81 MG tablet 162 mg PO DAILY@0800 sennosides-docusate sodium 1 EACH tablet 1 ea PO BID acetaminophen 500 MG tablet 500 - 1,000 mg PO Q6H PRN PRN (Reason: Pain Or Fever) tamsulosin 0.4 MG capsule 0.4 mg PO BID metoprolol tartrate 25 MG tablet 25 mg PO BID omeprazole 20 MG capsule 20 mg PO DAILY losartan 50 mg tablet 50 mg PO DAILY Patient Comments: Take 1 tablet by mouth once daily. doxycycline hyclate 20 mg tablet 20 mg PO BID azelaic acid 15 % gel 1 applic TOPICAL BID Rx Instructions: apply to face oxycodone 5 mg tablet 5 mg PO Q6H PRN (Reason: pain) 3 Days Qty: 12 0RF Eliquis 5 mg tablet 5 mg PO BID Qty: 60 0RF Primary Care Provider: Marcel Santos Referrals: Marcel Santos MD [Primary Care Provider] - Disposition Disposition: Acute Care Hospital [facility]
[2023-05-05 11:38] LABS: Absolute Lymphocyte Count 0.98 X10^3/uL (0.83-4.51); Absolute Neutrophil Count 4.1 X10^3/uL (2.0-7.7); Basophil# 0.06 X10^3/uL; Eosinophil# 0.11 X10^3/uL; Eosinophils% 1.8 % (0-5); Hematocrit 50.3 % (40-54); Lymphocyte # 0.98 X10^3/ul (0.83-4.51); Mean Corp Hgb Conc 31.8 g/dL (32-36); Mean Corpuscular Hgb 30.1 pg (27.0-32.0); Mean Corpuscular Volume 94.5 fL (80-94); Monocyte# 0.83 X10^3/uL; Monocyte% 13.5 % (0-10); NRBC Flagged by Analyzer 0 % (0-5); Neutrophil # 4.11 X10^3/uL (2.7-7.7); Platelet Count 349 K/mm3 (150-450); RBC Distribution Width CV 11.9 % (11.6-14.6); RBC Distribution Width SD 40.8 fl (35.1-43.9); Red Blood Count 5.32 M/mm3 (4.6-6.2); White Blood Count 6.1 K/mm3 (4.4-11.0)
[2023-05-05 11:53] LABS: Anion Gap 3 (5-15); BUN 18 mg/dL (7-18); Calcium,Total 9.5 mg/dL (8.5-10.1); Chloride 107 mmol/L (98-107); Creatinine, Serum 0.95 mg/dL (0.70-1.30); EST Glomerular Filtration Rate 82 mL/min (>60); Est Glom Filt Rate - Afr Amer 99 mL/min (>60); Estimated Creatinine Clearance 61.85 ml/min; Glucose 100 mg/dL (74-106); Potassium 4.5 mmol/L (3.5-5.1); Sodium Level 140 mmol/L (136-145); Troponin-I HS (w/2H Reflex) 8 pg/mL (3.0-78.0)
[2023-05-05 13:24] LABS: Reflex Troponin-HS? (from REC) Y
[2023-05-05 13:56] LABS: Troponin-I HS 9 pg/mL (3.0-78.0)
--- NOTE | 2023-05-05 14:36 | HP.PCM.HOS_ITS ---
HPI - General General Date of Admission: 05/05/23 Date of Service: 05/05/23 Chief Complaint: Chest pain/tightness/dyspnea. HPI Narrative The patient is a 77 y/o M w/ PMHx: Anxiety and Depression, Rosacea, CAD s/p CABG x 3, HTN, HLD, Former tobacco use, Chronic bradycardia, BPH, HARLEY on CPAP, GERD who presents to the [facility] ED on 05/05/23 with history of chest tightness and pressure-like sensation with radiation to the left upper extremity with associated dyspnea with an episode occurring approximate 1 week prior coming on suddenly when he was exerting himself and unfortunately has been intermittent since then with primarily again left chest and substernal discomfort with also diaphoresis with history of recent admission 2 weeks prior secondary to new onset atrial fibrillation started on Eliquis at that time prompting eventual ED evaluation. Patient notes that yesterday he was on elliptical and the discomfort developed shortly after he started at approximately 10 to 15 minutes although normally he rides for 30 minutes and prior to this onset had not been an issue. Today however he had onset after minimal activity which was different prompting again evaluation. Patient in the ED does report that when he is been having his episodes his pain has been more aching in sensation and rated at 1-2 out of 10 in severity. He is currently chest pain-free in the ED seated. Workup in the ED included T96.8, heart initially 49 vacillating in the 50s and most recently 48, BP initially 151/79 with most recent repeat 143/87, respirator y rate 18, 97% room air, CBC with a WBC 6.1, hemoglobin 16, platelet 249 without marked shift, unremarkable BMP, troponin initial 8 with repeat delta 9, chest x- ray with hyperinflation with no acute cardiopulmonary findings, EKG with sinus rhythm with nonspecific changes with no acute evidence of ischemia. ED discussed case with Cardiology Dr. Sanders. From discussion with ED physician he had recent outpatient ECHO with noted preserved EF, trivial valvular disease, diastolic dysfunction. [facility] Medical History (Updated 05/05/23 @ 16:[address] Sammie Clarke MD) Acne rosacea Atherosclerotic heart disease of [place] coronary artery without angina pectoris BPH (benign prostatic hyperplasia) Bradycardia Former smoker, stopped smoking in distant past Hyperlipidemia Hypertension Kidney stones HARLEY on CPAP Home Medications aspirin 81 mg tablet,delayed release 162 mg PO DAILY@0800 [facility] 01/22/14 [History Last Taken 05/31/19] acetaminophen 500 mg tablet 500 - 1,000 mg PO Q6H PRN PRN Pain Or Fever 07/05/19 [History Last Taken Unknown] tamsulosin 0.4 mg capsule 0.4 mg PO BID prostate 07/05/19 [History Last Taken Unknown] doxycycline hyclate 20 mg tablet 20 mg PO BID 09/17/21 [History Last Taken Unknown] losartan 50 mg tablet 50 mg PO DAILY 09/17/21 [History Last Taken Unknown] oxycodone 5 mg tablet 5 mg PO Q6H PRN pain 3 days #12 tabs 06/15/22 [Rx Last Taken Unknown] apixaban 5 mg tablet (Eliquis) 5 mg PO BID #60 tabs 04/23/23 [Rx Last Taken Unknown] coQ10 (ubiquinol) 100 mg capsule (CoQmax Ubiquinol) 100 mg PO DAILY 05/05/23 [History Last Taken Unknown] docusate sodium 100 mg capsule (Col-Rite) 100 mg PO DAILY 05/05/23 [History Last Taken Unknown] glucosamine HCl 1,500 mg tablet 3,000 mg PO DAILY 05/05/23 [History Last Taken Unknown] ivermectin 1 %-metronidazole 1 %-niacinamide 4 % topical gel (Aveidaoxia) 1 ea topical DAILY 05/05/23 [History Last Taken Unknown] magnesium 200 mg tablet 400 mg PO DAILY 05/05/23 [History Last Taken Unknown] metoprolol tartrate 50 mg tablet (Lopressor) 50 mg PO BID 05/05/23 [History Last Taken Unknown] rosuvastatin 40 mg tablet (Crestor) 40 mg PO QHS 05/05/23 [History Last Taken Unknown] sertraline 50 mg tablet 50 mg PO DAILY 05/05/23 [History Last Taken Unknown] Allergy/AdvReac Type Severity Reaction Status Date / Time No Known Allergies Allergy Verified 05/05/23 10:33 Family History Father Hypertension Mother Cancer Kidney stones Surgical History H/O hernia repair H/O lithotripsy Hx of tonsillectomy S/P triple vessel bypass Social History household members: spouse Smoking Status: Former smoker how long ago did patient quit smoking: Quit in the 1970s. alcohol intake: current alcohol intake frequency: holidays/special occasions only substance use type: does not use ROS ROS Narrative Admission Review of Systems: CONSTITUTIONAL: No weight loss, fever, chills, + weakness or fatigue. HEENT: Eyes: No visual loss, blurred vision, double vision or yellow sclerae. Ears, Nose, Throat: No hearing loss, sneezing, congestion, runny nose or sore throat. SKIN: No rash or itching, lesions, wounds except + Hx rosacea. CARDIOVASCULAR: + Chest pain. No palpitations, edema, orthopnea, syncopal events. RESPIRATORY: + Shortness of breath. No cough or sputum, wheezing, hemoptysis. GASTROINTESTINAL: No anorexia, nausea, vomiting or diarrhea, abdominal pain, melena, BRBPR. GENITOURINARY: No dysuria, frequency, urgency or retention. NEUROLOGICAL: No headache, dizziness, syncope, paralysis, ataxia, numbness or tingling in the extremities, focal weakness, change in bowel or bladder control, seizure. MUSCULOSKELETAL: No muscle, back pain, joint pain or stiffness. HEMATOLOGIC: No anemia, bleeding or bruising. LYMPHATICS: No enlarged nodes. No history of splenectomy. PSYCHIATRIC: + History anxiety and depression. ENDOCRINOLOGIC: No reports of sweating, cold or heat intolerance. No polyuria or polydipsia. ALLERGIES: No history of asthma, hives, eczema or rhinitis. Vital Signs Vital Signs Vital Signs: 05/05/23 10:34 05/05/23 11:28 05/05/23 11:28 Temperature 96.8 F L Temperature Source Temporal Pulse Rate 49 L 52 L Respiratory Rate 16 13 Respiratory Effort Blood Pressure 151/79 H Blood Pressure Mean 103 Pulse Ox 98 98 Oxygen Delivery Method Room Air Room Air Room Air 05/05/23 11:28 05/05/23 12:00 05/05/23 13:00 Temperature Temperature Source Pulse Rate 55 L 59 L Respiratory Rate 21 H 19 H Respiratory Effort Normal Blood Pressure 137/81 H 142/79 H Blood Pressure Mean 99 100 Pulse Ox 98 98 Oxygen Delivery Method Room Air Room Air 05/05/23 14:00 Temperature Temperature Source Pulse Rate 48 L Respiratory Rate 18 Respiratory Effort Blood Pressure 143/87 H Blood Pressure Mean 105 Pulse Ox 97 Oxygen Delivery Method Room Air Weight Weight: 153 lb 9.6 oz Body Mass Index (BMI) 24.0 Physical Exam Narrative Physical Examination: General: Awake, alert, oriented x 3 and cooperative, seated upright in the ED bed in no apparent distress, denies any current chest discomfort or dyspnea. Skin: Normal color, normal turgor, no icterus, no cyanosis. HEENT: AT/NC, EOMI, PERRLA, mildly dry MM, no carotid bruits or JVD noted. Lungs: CTA bilaterally, moderate effort, mild decrease BL bases, no rales, ronchi or wheezing. Heart: Bradycardic with regular rhythm; no gallop, rub audible, no reproducible discomfort with palpation of the left chest. Abdomen: Soft, NTTP, ND, mildly hyperactive BS, no HSM. Extremities: No cyanosis, clubbing, or edema. Neurological: Patient awake, alert, oriented as noted, cognitive function intact; pupils equally reactive to light and accommodation, cranial nerves II- XII grossly normal, moving all 4 extremities, no focal deficits, strength mildly to moderately global decreased secondary to acute presentation complaints. Psychiatric: Affect appears fatigued otherwise normal, no acute evidence of depressive or anxiety feelings with underlying history. Results Lab / Micro Data 05/05/23 11:15 05/05/23 11:15 Labs: Laboratory Results - last 24 hr 05/05/23 11:15: WBC 6.1, RBC 5.32, Hgb 16.0, Hct 50.3, MCV 94.5 H, MCH 30.1, MCHC 31.8 L, RDW Std Deviation 40.8, RDW Coeff of [place] 11.9, Plt Count 349, MPV 9.0, Immature Gran % (Auto) 0.700, Neut % (Auto) 67.0, Lymph % (Auto) 16.0 L, [place] % (Auto) 13.5 H, Eos % (Auto) 1.8, Baso % (Auto) 1.0, Absolute Neuts (auto) 4.1, Absolute Lymphs (auto) 0.98, Nucleated RBC % 0, Sodium 140, Potassium 4.5, Chloride 107, Carbon Dioxide 30.0, Anion Gap 3 L, BUN 18, Creatinine 0.95, Estim Creat Clear Calc 61.85, Est GFR (MDRD) Af Amer 99, Est GFR (MDRD) Non-Af 82, BUN/Creatinine Ratio 19.0, Glucose 100, Calcium 9.5, Troponin I High Sens 8 05/05/23 13:30: Troponin I High Sens 9 Imagaing Radiology Impression Chest X-Ray 05/05/23 11:06 IMPRESSION: Hyperinflation. The lungs are clear. Electronically Signed: Mo Mares MD at 12:07 EST , Assessment & Plan Assessment/Plan (1) Exertional angina: PLAN: Plan The patient is a 77 y/o M w/ PMHx: Anxiety and Depression, Rosacea, CAD s/p CABG x 3, HTN, HLD, Former tobacco use, Chronic bradycardia, BPH, HARLEY on CPAP, GERD who presents to the [facility] ED on 05/05/23 with history of chest tightness and pressure-like sensation with radiation to the left upper extremity with associated dyspnea with an episode occurring approximate 1 week prior coming on suddenly when he was exerting himself and unfortunately has been intermittent since then with primarily again left chest and substernal discomfort with also diaphoresis with history of recent admission 2 weeks prior secondary to new onset atrial fibrillation started on Eliquis at that time prompting eventual ED evaluation. #1. Chest Pain/tightness, exertional dyspnea, anginal equivalent concern: EKG in ED EKG with sinus rhythm with nonspecific changes with no acute evidence of ischemia, CXR w/ hyperinflation with no acute cardiopulmonary findings otherwise, initial trop 8 with repeat delta 9. Will admit to PCU, place on a monitored bed to assure no acute myocardial infarction with serial cardiac enzymes and EKGs. FLP in AM. Magnesium level requested. Will continue cardiology consultation initiated in the ED. Will hold Eliquis at next dose due in case of intervention needs at that time may consider transition to Lovenox versus heparin drip pending cardiology input. ASA, NG, morphine. #2. PAF: Recent admission 2 weeks prior to current presentation for new onset atrial fibrillation, will continue patient home metoprolol, most recent dose of Eliquis this morning, will hold at next dose due pending cardiology evaluation in case of intervention needs and at that time certainly could consider transition to heparin drip versus therapeutic Lovenox. #3. CAD: Status post CABG x 3 05/2019, will continue aspirin, statin, metoprolol, losartan home regimen. #4. Hypertension: Continue home regimen including losartan, metoprolol with hold parameters as needed given bradycardia but currently baseline stable, PRN hydralazine. #5. Hyperlipidemia: Continue home statin regimen. AM FLP. #6. BPH: We will can patient on Flomax regimen. #7. GERD: We will continue patient on PPI. #8. Chronic rosacea: We will continue patient home low-dose doxycycline, uses azelaic acid application also. Follow-up with dermatology as previously arranged. #9. HARLEY: CPAP nightly. #10. Anxiety and depression: We will continue patient home sertraline regimen. #11. DVT prophylaxis: Patient with most recent Eliquis dosing this a.m., will hold pending cardiology evaluation and if appropriate transition to heparin drip versus Lovenox at next dose due. #12. CODE status: Patient REINALDO is his daughter Sammie and living will is currently in place. Discussed CODE status at length including difference between FULL code, DNR-CCA and DNR-CC status. Following discussions about the differences in these status, requested Full Code status. Advanced Care Planning Face to Face Time: 16 minutes. Charges/Coding Visit Charges Inpatient E&M: 83249 Init Hosp L3 Procedures Hospitalists Procedures: 14377 Advncd Care Plan 30 Min
--- NOTE | 2023-05-05 15:36 | NURSING ---
PCU OBS WHITE ANGINA EXERTIONAL CORNONARY DISEASE, BRADYCARDIA
--- NOTE | 2023-05-05 16:39 | EKG12_ITS ---
Test Reason : ADM EKG Blood Pressure : / mmHG Vent. Rate : 051 BPM Atrial Rate : 051 BPM P-R Int : 166 ms QRS Dur : 110 ms QT Int : 434 ms P-R-T Axes : 066 -64 026 degrees QTc Int : 400 ms Sinus bradycardia Possible Left atrial enlargement Left axis deviation Incomplete right bundle branch block Left ventricular hypertrophy ( R in aVL , Lund product ) Abnormal ECG Confirmed by ESPERANZA DEL CASTILLO, GABRIELA ([id number]), editorial specialist PAYAM PERALES ([id number]) on 05/06/2023 9:46:35 AM Referred By: KASIA Confirmed By:GABRIELA MATA MD
[2023-05-05 17:14] LABS: Magnesium 2.4 mg/dL (1.6-2.6)
--- OUTSIDE RECORDS SUMMARY | 2023-05-05 17:37 | XMS RPT_ITS | CCD ---
Author Name Unknown Address [address] [place] [address] Organization [facility] Care Team Providers Care Product Planner Name Role Phone Bella Mead MD Primary Care Provider BELLA MEAD Attending Unavailable BELLA MEAD Primary Care Unavailable BELLA MEAD Referring Unavailable BELLA MEAD Primary Care Unavailable BELLA MEAD Attending Unavailable BELLA MEAD Primary Care Unavailable MARLY BETH Attending Unavailable MARLY BETH Referring Unavailable BELLA MEAD Primary Care Unavailable BELLA MEAD Attending Unavailable BELLA MEAD Referring Unavailable BELLA MEAD Primary Care Unavailable BELLA MEAD Primary Care Unavailable BELLA MEAD Referring Unavailable DRAKE MCCARTHY Referring Unavailable BELLA MEAD Primary Care Unavailable BELLA MEAD Primary Care Unavailable BELLA MEAD Attending Unavailable BELLA MEAD Primary Care Unavailable DRAKE MCCARTHY Attending Unavailable BELLA MEAD Primary Care Unavailable Medications Current Medications Medication Drug Class(es) [...] foot [pes planus] (acquired), right foot] Episodic Cardiac dysrhythmias (1 source) Paroxysmal atrial fibrillation; Translations: [Paroxysmal atrial fibrillation (HCC)] Onset: 05-02-2023 Chronic Cardiac dysrhythmias (2 sources) Tachycardia; Translations: [Tachycardia, unspecified] Episodic Complication of device; implant or graft [...] Classification Problem Date Documented Da te Episodic/Chronic Diabetes mellitus without complication (4 sources) Increased glucose level; Translations: [Other abnormal glucose] Onset: 11-04-2022 Episodic Mycoses (3 sources) Onychomycosis; Translations: [Tinea [...] Date Time Vital Sign Value Performing Clinician Rianna burrows 11-09-2022 09:30-0400 Body weight 68.4 kg Bella Mead MD Work Phone: [facility] 11-09-2022 09:30-0400 Diastolic blood pressure 78 mm[Hg] Bella Mead MD Work Phone: [facility] 11-09-2022 09:30-0400 Heart rate 56 /min Bella Mead MD Work Phone: [facility] 11-09-2022 09:30-0400 Respiratory rate 16 /min Bella Mead MD Work Phone: [facility] 11-09-2022 09:30-0400 Systolic blood pressure 124 mm[Hg] Bella Mead MD Work Phone: [facility] 05-06-2022 09:22-0500 Body weight 78.93 kg Bella Mead MD Work Phone: [facility] 05-06-2022 09:22-0500 Diastolic blood pressure 82 mm[Hg] Bella Mead MD Work Phone: [facility] 05-06-2022 09:22-0500 Heart rate 60 /min Bella Mead MD Work Phone: [facility] 05-06-2022 09:22-0500 Respiratory rate 16 /min Bella Mead MD Work Phone: [facility] 05-06-2022 09:22-0500 Systolic blood pressure 134 mm[Hg] Bella Mead MD Work Phone: [facility] 04-15-2022 10:50-0500 Body weight 80.11 kg Bella Mead MD Work Phone: [facility] 04-15-2022 10:50-0500 Diastolic blood pressure 78 mm[Hg] Bella Mead MD Work Phone: [facility] 04-15-2022 10:50-0500 Heart rate 82 /min Bella Mead MD Work Phone: [facility] 04-15-2022 10:50-0500 Respiratory rate 16 /min Bella Mead MD Work Phone: [facility] 04-15-2022 10:50-0500 Systolic blood pressure 118 mm[Hg] Bella Mead MD Work Phone: [facility] 03-15-2022 15:19-0500 Body weight 79.83 kg Drake Mccarthy MD Work Phone: [facility] 03-15-2022 15:19-0500 Diastolic blood pressure 80 mm[Hg] Drake Mccarthy MD Work Phone: [facility] 03-15-2022 15:19-0500 Heart rate 60 /min Drake Mccarthy MD Work Phone: [facility] 03-15-2022 15:19-0500 Systolic blood pressure 130 mm[Hg] Drake Mccarthy MD Work Phone: [facility] 11-03-2021 09:22-0400 Body weight 76.93 kg Bella Mead MD Work Phone: [facility] 11-03-2021 09:22-0400 Diastolic blood pressure 80 mm[Hg] Bella Mead MD Work Phone: [facility] 11-03-2021 09:22-0400 Heart rate 70 /min Bella Mead MD Work Phone: [facility] 11-03-2021 09:22-0400 Respiratory rate 16 /min Bella Mead MD Work Phone: [facility] 11-03-2021 09:22-0400 Systolic blood pressure 120 mm[Hg] Bella Mead MD Work Phone: [facility] 08-31-2021 10:02-0400 Body weight 78.93 kg Drake Mccarthy MD Work Phone: [facility] 08-31-2021 10:02-0400 Diastolic blood pressure 82 mm[Hg] Drake Mccarthy MD Work Phone: [facility] 08-31-2021 10:02-0400 Heart rate 56 /min Drake Mccarthy MD Work Phone: [facility] 08-31-2021 10:02-0400 SaO2% (BldA) [Mass fraction] 97 % Drake Mccarthy MD Work Phone: [facility] 08-31-2021 10:02-0400 Systolic blood pressure 164 mm[Hg] Drake Mccarthy MD Work Phone: [facility] Encounters Encounter Date Encounter Type Care Provider Facility Start: 05-02-2023 End: 05-02-2023 ambulatory BELLA MEAD Facility:[facility] Start: 04-29-2023 End: 04-29-2023 ambulatory BELLA MEAD Facility:[facility] Start: 04-11-2023 End: 04-11-2023 ambulatory DRAKE MCCARTHY Facility:[facility] Start: 11-09-2022 End: 11-09-2022 ambulatory BELLA MEAD Facility:[facility] Start: 11-09-2022 End: 11-09-2022 Patient encounter procedure Bella Mead MD Work Phone: [facility] Procedures Date Procedure Procedure Detail Performing Clinician [...] Author Start: 05-04-2027 LIPID SCREEN LIPID SCREEN [facility] Start: 02-07-2027 Urine microalbumin profile DTAP,TDAP,TD (2 - Td or Tdap) [facility] Start: 10-27-2026 LIPID SCREEN LIPID SCREEN [facility] Start: 05-05-2026 LIPID SCREEN LIPID SCREEN [facility] Start: 11-04-2025 DIABETES SCREEN DIABETES SCREEN [facility] Start: 05-04-2025 DIABETES SCREEN DIABETES SCREEN [facility] Start: 10-27-2024 DIABETES SCREEN DIABETES SCREEN [facility] Start: 05-05-2024 DIABETES SCREEN DIABETES SCREEN [facility] Start: 02-16-2024 Colonoscopy COLONOSCOPY [facility] Start: 02-16-2024 COLORECTAL CANCER SCREENING COLORECTAL CANCER SCREENING [facility] Start: 11-10-2023 ANNUAL PCP TEAM CHRONIC DISEASE VISIT ANNUAL PCP TEAM CHRONIC DISEASE VISIT [facility] Start: 11-10-2023 BP CONTROLLED (<130/80) BP CONTROLLED (<130/80) 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 Expected: 05/12/2023 (Approximate), Expires: 07/12/2023 [facility] Work Phone: Immunizations Immunization Date Immunization Notes Care Provider Jimmie rodriguez 07-04-2020 COVID-19 vaccine, fu ll dose (MODERNA) Theron Delong MD Work Phone: [facility] 06-06-2020 COVID-19 vaccine, fu ll dose (MODERNA) Theron Delong MD Work Phone: [facility] 02-07-2017 tetanus toxoid, redu zev diphtheria toxoid, and acellular pertussis vaccine, adsorbed Theron Delong MD Work Phone: [facility] 02-01-2017 pneumococcal polysaccharide vaccine, 23 valent Theron Delong MD Work Phone: [facility] Work Phone: 01-27-2016 pneumococcal conjuga te vaccine, 13 valent Theron Delong MD Work Phone: [facility] Work Phone: Payers Date Payer Category Payer Medicare AETNA MEDICARE A ETNA MEDICARE PPO [id number] 2021-Present [phone] [address] [place] [address] PPO [id number] 2021 Medicare AETNA MEDICARE A ETNA MEDICARE PPO [id number] 2021-Present [phone] [address] [place] [address] [facility] [id number] 2021 Medicare [id number] Social History Date Type Detail Facility Start: 03-15-2022 Tobacco smoking stat [facility] Ex-smoker [facility] Work Phone: End: 12-27-1976 History of tobacco use Current smoker [facility] Work Phone: End: 12-27-1976 History of tobacco use Cigarette Smoker [facility] Work Phone: Start: 07-20-2021 End: 11-09-2022 Alcohol intake Current drinker of alcohol (finding) [facility] Start: 04-30-2021 End: 10-22-2022 History SDOH Alcohol Frequency 3 [facility] Start: 04-30-2021 End: 10-22-2022 History SDOH Alcohol Std Drinks 1 [facility] Start: 04-30-2021 End: 10-22-2022 History SDOH Social Connections Phone 2 [facility] Start: 04-30-2021 End: 10-22-2022 History SDOH Social Connections Get Together 4 [facility] Start: 04-30-2021 End: 10-22-2022 History SDOH Physical Activity DPW 5 [facility] Start: 04-30-2021 End: 10-22-2022 History SDOH Physical Activity MPS 9 [facility] Start: 04-23-2019 Education 19 [facility] Start: 1945 Sex Assigned At Not on file [facility] Start: 08-09-2021 End: 03-15-2022 Exposure to SARS-CoV-2 (event) Not sure [facility] Start: 03-15-2022 End: 10-22-2022 Cigarettes smoked current (pack per day) - Reported 1 [facility] Start: 03-15-2022 Tobacco use and exposure Smoke less tobacco non-user [facility] Start: 03-15-2022 Tobacco Comment on and off [facility] Start: 10-22-2022 History SDOH Physica l Activity DPW 7 [facility] Start: 05-06-2022 End: 10-22-2022 Social connection and isolation panel [facility] Do you belong to any clubs or organizations such as jehovah's witness groups, unions, fraternal or athletic groups, or school groups? Yes [facility] Are you now , , , , never or living with a partner? [facility] How often to you hav e a drink containing alcohol? 2-4 times a month [facility] How many standard dr inks containing alcohol do you have on a typical day? 1 or 2 [facility] How often do you hav e 6 or more drinks on 1 occasion? Never [facility] How hard is it for y ou to pay for the very basics like food, housing, medical care, and heating Not hard at all [facility] Do you feel stress - tense, restless, nervous, or anxious, or unable to sleep at night because your mind is troubled all the time - these days [OSQ] To some extent [facility] (I/We) worried wheth er (my/our) food would run out before (I/we) got money to buy more. Never true [facility] At any time in the p ast 12 months, were you homeless or living in custodial [including now]? No [facility] Medical Equipment Procedure Code Equipment Code Equipment Original Text Equipment Identifier Dates [place] Thk1.65mm Rectangle Ptfe 4.5x6mm [facility] [place] - [id number] Start: 06-06-2019 Clinical Notes 06-05-2019 to 05-02-2023 Bella Mead MD - 11/09/2022 9:20 AM EDTPatient InstructionsMark Maribell Mead MD - 10/22/2022 11:20 AM EDTMark Maribell Mead MD - 10/22/2022 11:20 AM EDTPatient Instructions Note Date & Type Note Facility 05-02-2023 Note HNO ID: [id number] Author: JACKSON WHITE RN Service: ? Author Type: Registered Nurse Type: Progress Notes Filed: 05/02/2023 10:17 Note Text: EKG complete. Jackson White RN [facility] 04-29-2023 Note HNO ID: [id number] Author: BELLA MEAD MD Service: ? Author Type: Physician Type: Progress Notes Filed: 04/29/2023 10:39 Note Text: Chief Complaint Patient presents with: ED Follow-up: [facility] [place]-new onset A-fib HPI Leonor Loaiza is a 77 year old male who presents here today for ER Follow Up. Does have an advanced directive. Declined Flu vaccine. Did get covid vaccine in Dec, that is updated. HM: Depression screening: admits to feeling down and depressed, does not feel helpless. Feels he needs to be treated now, has never been on medication before. No SI/HI. He feels this situation has increased the depression. Has a lot of stress with and his children at this time. Pt was at [facility] [place] ER on 04/23/23 for palpitations. He had an episode of palpitations in the past but it only lasted over night and resolved but this episodes was bothersome enough that it prompted him to go to ER for evaluation. Pt stated he was sitting watching TV and stood up and sx started. He was not doing any strenuous activity or exercise. Dx with new onset A-fib and started on Eliquis 5 mg BID. He stated he stopped taking Zetia due to reading that it is not recommended when on blood thinner and he felt that it caused the palpitations. Dr. Mccarthy wanted to try and control his cholesterol better. Follows with Cardio, Dr. Mccarthy, has follow up this month. He ordered EKG and Echo that pt is doing Tuesday. Pt has not noticed any further issues with palpitations or a-fib. No chest pains or dizziness. He does have some SOB but only with exertion which he has had for some time, but becoming worse. Checking BP at home, has been good as well as HR which has been good. Past medical history, appointments, medications, allergies reviewed. [...] on File Prior to Visit Medication Sig ezetimibe (ZETIA) 10 mg tablet Take 1 tablet by mouth once daily. losartan (COZAAR) 50 [...] Comment: occasional Drug use: No EXAM: BP 128/78 Pulse (!) 59 Resp 16 Wt 70 kg (154 lb 6.4 oz) BMI 23.83 kg/m? General Appearance: Well appearing, alert, in no acute distress, well-hydrated, well nourished.. Lungs: Lungs clear to auscultation. No wheezing, rhonchi, rales.. Heart: RRR without murmur, gallop, or rubs. No ectopy. Health Maintenance List Shingrix Vaccine(1 of 2) Never done RSV Vaccine(1 - 1-dose 60+ series) Never done Influenza Vaccine(1) due on 12/24/2022 Covid-19 Vaccine(2022- season) due on 03/11/2023 Advance Directive Discussion due on (more content not included)... [facility] 04-11-2023 Note HNO ID: [id number] Author: Drake Mccarthy MD Service: ? Author Type: Physician Type: Progress Notes Filed: 04/11/2023 3:03 PM Note Text: [facility] Cardiology ([place] ) [address] [facility] [id number] OUTPATIENT VISIT DATE 04/11/2023 PRIMARY CARE PHYSICIAN: Bella Mead [address] [place] [address] HISTORY OF PRESENT ILLNESS: Mr. 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 - Exam indication: Shortness of Breath - The left ventricle is normal in size. Left ventricular systoli (more content not included)... [facility] 11-09-2022 Note HNO ID: [id number] Author: Bella Mead MD Service: ? Author [...] lbs since June, with a Program called [employer]. He's counting calories. The Program is nutritional based. Exercises by working out 3 days a week at they gym, some home exercises and hiking. Taking Crestor 40 mg daily, tolerating well. Pt follows with Cardio. HARLEY: Uses nightly Bipap, does well with this. Most days feels he's rested. Receives DME supplies through [employer]. Derm - Taking Doxycycline 20 mg bid [...] Alcohol use: Yes (more content not included)... [facility] 11-09-2022 History of Present illness Narrative [...] lbs since June, with a Program called [employer]. He's counting calories. The Program is nutritional based. Exercises by working out 3 days a week at they gym, some home exercises and hiking. Taking Crestor 40 mg daily, tolerating well. Pt follows with Cardio. HARLEY: Uses nightly Bipap, does well with this. Most days feels he's rested. Receives DME supplies through [employer]. Derm - Taking Doxycycline 20 mg bid [...] to receive Covid vaccine, recently Dx with [employer]. Past medical history, appointments, medications, allergies reviewed. [...] Anion Gap 11/04/2022 8 (L) Estimated Glomerular Steafn* 11/04/2022 83 Cholesterol, Total 11/04/2022 146 Triglyceride [...] 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 - ICD9: 414.05, [...] Past Histories independently gathered by the clinical network support manager and the remaining scribed note accurately describes [...] Jocelyn Kee Ma documented in this encounter [facility] 10-22-2022 Note HNO ID: [id number] Author: Bella Mead MD Service: ? Author [...] visit. Either the patient or their legal sales and merchandising representative has been informed of the risks [...] PACK Follow up prn Bella Mead MD [facility] 10-22-2022 Note HNO ID: [id number] Author: Bella Mead MD Service: ? Author Type: Physician Type: Progress Notes Filed: 10/22/2022 11:38 AM Note Text: Nirmatrelvir/Ritonavir (Paxlovid) Eligibility and Patient Discussion [facility] Formulary Restriction Criteria: Adult outpatients [...] Mead MD October 22, 2022 11:37 AM [facility] 10-22-2022 Instructions Bella Mead MD - 10/22/2022 11:23 AM EDT Images from the original note were not included. FACT SHEET FOR PATIENTS, PARENTS, AND CAREGIVERS EMERGENCY USE AUTHORIZATION (EUA) OF PAXLOVID FOR CORONAVIRUS DISEASE 2019 (COVID-19) You are being given this Fact Sheet because your healthcare provider believes it is necessary to provide you with PAXLOVID for the treatment of iahr-jo-dafkpsdp coronavirus disease (COVID-19) caused by the SARS-CoV-2 [...] virus. COVID-19 illnesses have ranged from very hxtn-ja-ttvfyl, including illness resulting in . While information [...] (40 kg)] with a current diagnosis of ryvb-pk-njmwepus COVID-19 and who are at high risk for progression to severe COVID-19, including hospitalization or . PAXLOVID is investigational because it is still being studied. There is limited information about the safety and effectiveness of using PAXLOVID to treat people with ekdk-pp-lyqexrxc COVID-19. The FDA has authorized the emergency use of PAXLOVID for the treatment of agml-vn-ytncrflw COVID-19 in adults and children [12 years of age and older weighing at least 88 pounds (40 kg)] with a current diagnosis of obds-zu-peeqwwsn COVID-19 and who are at high risk [...] the merdicines you take, including prescription and lubz-qfo-matpvip medicines, vitamins, and herbal supplements. Your healthcare [...] Morning or Evening, depending on when you supervisor opening and picking your prescription, or as recommended by your [...] (remdesivir) is FDA-approved for the treatment of xeru-am-uaraulhm COVID-19 in certain adults and children. Talk with your doctor to see if Veklury is appropriate for you. Like PAXLOVID, FDA may also allow for the emergency use of other medicines to treat people with COVID-19. Go to https://www.fda.gov/emergency-pre fqczciweb-ecm-gopaghgf/mcm-legal- ljtphdrbdu-vpe-uibftt-framework/e tusyvwcq-uhc-plbhpeeytgnlx for information on the emergency use of [...] if I am or ? There is immunochemist treating women or mothers with PAXLOVID. For [...] for examples of PAXLOVID Dose Packs) to [employer] at www.fda.gov/medwatch or call 6-595-TPX5664 or you can report side effects to [facility]. at the contact information provided below. Website Fax number Telephone number [employer] How should I store PAXLOVID? Store PAXLOVID [...] (EUA). The EUA is supported by a Membership Administrator of Health and Human Service (HHS) declaration that circumstances exist to justify the emergency use of drugs and biological products during the COVID-19 pandemic. PAXLOVID for the treatment of ypug-bq-gnmijjrg COVID-19 in adults and children [12 years [...] telephone number provided below. Website Telephone number www.[employer] (2-129-T89-PACK) You can also go to www.[employer] or call for more information. Pfizer Distributed by [facility] [place] [address] [id number] Revised: 05/2022 documented in this encounter [facility] 10-22-2022 History of Present illness [...] visit. Either the patient or their legal sales and merchandising representative has been informed of the risks [...] MD Nirmatrelvir/Ritonavir (Paxlovid) Eligibility and Patient Discussion [facility] Formulary Restriction Criteria: Adult outpatients [...] 2022 11:37 AM documented in this encounter [facility] 10-22-2022 Miscellaneous Notes Called home phone and spoke with pt who was agreeable to appt. Pt scheduled, reviewed chart. Jocelyn Kee Ma Call to pt received identifiable VM. LM on VM notifying pt we received his [employer] message and have offered a same day VV at 11:20 am with PCP, spot held. Pt made aware that [employer] message sent to him. Asked pt to call office and speak with FM Triage Nurse or respond back via [employer] if this appt time works for him. Jocelyn Kee Ma Offered pt VV with PCP at 11:20 to discuss Paxlovid. Wait pt response. Jocelyn Kee Ma documented in this encounter [facility] 08-23-2022 Miscellaneous Notes The following approved medication requests have been transmitted electronically. Requested Prescriptions Pending Prescriptions Disp Refills metoprolol tartrate, short acting, (LOPRESSOR) 50 mg tablet 180 tablet 3 Sig: Take 1 tablet by mouth q 12 HR. Magen Gilman APRN.FILLER SHREDDER Patient phones requesting refills as follows: Requested Prescriptions Pending Prescriptions Disp Refills metoprolol tartrate, short acting, (LOPRESSOR) 50 mg tablet 180 tablet 3 Sig: Take 1 tablet by mouth q 12 HR. MEGGAN-05/06/22 Labs-05/04/22 NOV-11/09/22 med filled 08/25/21 Please review and advise. Kimi Oscar LPN documented in this encounter [facility] 06-03-2022 Note HNO ID: [id number] Author: Ailin Gunn LPN Service: ? Author Type: LICENSED NURSE Type: Progress Notes Filed: 06/06/2022 12:19 PM Note Text: Per Leonor Lundy was provided with Ripstonetep original inserts, size 11, and instructed/educated in its application, wear, and care. All questions were answered, and patient was able to demonstrate competence with the necessary skills to utilize the above equipment. Ailin Gunn LPN [facility] 06-03-2022 Note HNO ID: [id number] Author: Marly Beth Service: ? Author Type: [...] or crepitus are (more content not included)... [facility] 06-03-2022 Note HNO ID: [id number] Author: Ailin Gunn LPN Service: ? Author [...] to him flat feet. Ailin Gunn LPN [facility] 06-03-2022 History of Present illness Narrative Per Dr. Beth Leonor was provided with powerstep original inserts, [...] Beth DPM Podiatry [address] [facility] [address] Dept: [phone] Dept AMB ROOMING INTAKE FLOWSHEET DATA Pain [...] Ailin Gunn LPN documented in this encounter [facility] 06-03-2022 Instructions Marly Beth - 06/03/2022 12:03 PM EST Powerstep Original Full length. Can purchase at [employer] here in [place], [employer] in [place] or [place]. Also can find in [place] in [facility]. Powersteps can also be purchased online, starting [...] fits well together documented in this encounter [facility] 05-24-2022 Miscellaneous Notes Patient's request for medication is as follows: Requested Prescriptions Pending Prescriptions Disp Refills rosuvastatin (CRESTOR) 40 mg tablet 90 tablet 3 Sig: Take 1 tablet by mouth daily at bedtime. Last seen 03/15/2022. Follow up scheduled for 10/25/2022. Prescription(s) as above. Please process accordingly. Estella Garcia LPN documented in this encounter [facility] 05-17-2022 Miscellaneous Notes Pt sent [employer] message notifying him that Ortho referral has been placed. Notified pt to contact office to schedule an appt. Jocelyn Kee Ma I would suggest an Ortho consult; order filed Bella Mead MD See pt message. Pt seen on 05/06/22 with evaluation done. Jocelyn Kee Ma documented in this encounter [facility] 05-12-2022 Miscellaneous Notes Returned patient's call. He had received a phone call earlier to reschedule his appointment that was in May. Transferred patient to schedulers to reschedule appointment. Patient called. Verified name and date of . Patient returning call to [facility] and would like to get surgery scheduled. Mobile number is preferred contact number. Chela Gomez LPN documented in this encounter [facility] 05-06-2022 Note HNO ID: [id number] Author: Bella Mead MD Service: ? Author [...] No ectopy. Extremities: (more content not included)... [facility] 05-06-2022 History of Present illness Narrative [...] 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 - ICD9: 414.05, [...] Past Histories independently gathered by the clinical network support manager and the remaining scribed note accurately describes [...] Jocelyn Kee Ma documented in this encounter [facility] 04-15-2022 History of Present illness Narrative Chief Complaint Patient presents with: Palpitations: Increased heart rate JEN Loaiza is a 76 year old male [...] having anxiety over doing a reading in [place] last night. He has felt more stressed [...] Bella Mead MD documented in this encounter [facility] 04-15-2022 Miscellaneous Notes OK for appt today Bella Mead MD Pt called in and reports a rapid heart rate 80's and 90's x 1 day. Normal for him is 60's to 70's. Pt denies chest pain, chest discomfort, difficulty breathing, pain down left arm, neck pain. Pt scheduled for apt today. Bouchra Cabrera LPN documented in this encounter [facility] 03-15-2022 History of Present illness Narrative Images from the original note were not included. [facility] SE[facility]IOLOGY [facility]iology ([place] ) [address] [facility] [id number] OUTPATIENT VISIT DATE 03/15/2022 PRIMARY CARE PHYSICIAN: Bella Mead [address] [place] [address] HISTORY OF PRESENT ILLNESS: Mr. Loaiza is a 76 year old gentleman with a history of coronary artery disease prior coronary bypass grafting (May 2019), hypertension, and dyslipidemia who presents for routine follow-up. He has been under increased stress. 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 Pt has an upcoming OV 03/15/22. Beulah Villagran RN documented in this encounter [facility] 11-03-2021 History of Present illness [...] bid. Follows with Urology, Dr. Shaffer at [facility]. Brother has prostate cancer, going through radiation therapy. Family hx of thyroid cancer, leukemia, and prostate cancer. GERD: doing well, has not been taking Prilosec 20 mg daily. Tinnitus: Both ears. HTN: Elevated BP with multiple messages in changing his regimen. Pt wrote into the office on 09/17/21 and called into the office with chest pain. Pt went to [facility] ED, no issues found with his heart. [...] SI/HI. He states his is still in [employer] [facility], unsure if she will be able to [...] 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 - ICD9: 414.05, ICD10: I25.810 Continue current medications. Continue with Cardio 3. Other hyperlipidemia - ICD9: 272.4, ICD10: E78.49 Continue current medications. 4. Shoulder crepitation Monitor; symptomatic treatment Follow up in 6 months with fasting labs prior. I agree with the Chief Complaint, ROS, and Past Histories independently gathered by the clinical network support manager and the remaining scribed note accurately describes [...] Kenzie Prasad Ma documented in this encounter [facility] 09-17-2021 Miscellaneous Notes Noted and [...] Some shortness of breath Protocols used: CHEST [id number] documented in this encounter [facility] 09-17-2021 Miscellaneous Notes See Nurse Triage note documented in this encounter [facility] 09-16-2021 Miscellaneous Notes Please see pt message and advise. Jocelyn Kee Ma documented in this encounter [facility] 08-31-2021 Instructions Drake Mccarthy MD - 08/31/2021 10:27 AM EDT We are changing the Lisinopril to Losartan 50 mg once per day We are changing the Lipitor to Crestor 40 mg once per day Repeat fasting blood work in 3-4 months documented in this encounter [facility] 08-31-2021 History of Present illness Narrative Images from the original note were not included. [facility] SE[facility] REGIONAL CARDIOLOGY Cardiology ([address]) [address] [facility] [id number] OUTPATIENT VISIT DATE 08/31/2021 PRIMARY CARE PHYSICIAN: Bella Mead [address] [place] [address] HISTORY OF PRESENT ILLNESS: Mr. Loaiza is [...] distal pulses CARDIOVASCULAR MEDICINE TESTING: Cardiac Catheterization [place] 06/05/2019: POST PROCEDURE DIAGNOSIS: 1. 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 Normal carotid arteries Echocardiogram 06/05/2019 CONCLUSIONS: [...] 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 - ICD9: 414.05, [...] Drake Mccarthy MD documented in this encounter [facility] 08-25-2021 Miscellaneous Notes See update from pt and refill request. Metoprolol 50 mg previous Rx came from Cardio. Jocelyn Kee Ma documented in this encounter [facility] 08-20-2021 Miscellaneous Notes Call to pt, pt states BP was elevated but under better control with maintenance from Bella Mead MD. Was wanting to f/u with Dr.Sleik however in regards to this. Able to schedule with 08/31/21 at 1000. Patient called and was upset that his appt with Dr. Delong had been canceled for August and September. He states he is having blood pressure concerns and does not want to wait until end of December to see Cheyanne Gonzalez. Please call patient and advise. 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 CT chest shows calcified coronary vessels Echo 05/07/19 w/ EF 66%, grade I diastolic dysfunction Cycle Troponin x3 with EKGs PRN for ACS rule out Check lipid panel and A1c for risk stratification Maintain continuous telemetry monitoring Cards consult as obtain to obtain stress test over weekend documented as of this encounter (statuses as of 08/25/2021) [facility] History of Past illness Narrative* Problem Noted Date Resolved Date Chest pain 06/05/2019 06/11/2019 Chest pain 06/01/2019 06/02/2019 Last Assessment & Plan: Concerning 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 & SOB x6 weeks 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 CT chest shows calcified coronary vessels Echo 05/07/19 w/ EF 66%, grade I diastolic dysfunction Cycle Troponin x3 with EKGs PRN for ACS rule out Check lipid panel and A1c for risk stratification Maintain continuous telemetry monitoring Cards consult as obtain to obtain stress test over weekend documented as of this encounter (statuses as of 08/31/2021) [facility] History of Past illness Narrative* Problem Noted Date Resolved Date Chest pain 06/05/2019 06/11/2019 Chest pain 06/01/2019 06/02/2019 Last Assessment & Plan: Concerning 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 & SOB x6 weeks 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 SECURITY ARCHITECT CT chest shows calcified coronary vessels Echo 05/07/19 w/ EF 66%, grade I diastolic dysfunction Cycle Troponin x3 with EKGs PRN for ACS rule out Check lipid panel and A1c for risk stratification Maintain continuous telemetry monitoring Cards consult as obtain to obtain stress test over weekend documented as of this encounter (statuses as of 09/17/2021) [facility] History of Past illness Narrative* Problem Noted Date Resolved Date Chest pain 06/05/2019 06/11/2019 Chest pain 06/01/2019 06/02/2019 Last Assessment & Plan: Concerning 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 & SOB x6 weeks CLOUD SECURITY ARCHITECT CT chest shows calcified coronary vessels Echo 05/07/19 w/ EF 66%, grade I diastolic dysfunction Cycle Troponin x3 with EKGs PRN for ACS rule out Check lipid panel and A1c for risk stratification Maintain continuous telemetry monitoring Cards consult as obtain to obtain stress test over weekend documented as of this encounter (statuses as of 09/17/2021) [facility] History of Past illness Narrative* Problem Noted Date Resolved Date Chest pain 06/05/2019 06/11/2019 Chest pain 06/01/2019 06/02/2019 Last Assessment & Plan: Concerning 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 & SOB x6 weeks CLOUD SECURITY ARCHITECT CT chest shows calcified coronary vessels Echo 05/07/19 w/ EF 66%, grade I diastolic dysfunction Cycle Troponin x3 with EKGs PRN for ACS rule out Check lipid panel and A1c for risk stratification Maintain continuous telemetry monitoring Cards consult as obtain to obtain stress test over weekend documented as of this encounter (statuses as of 11/03/2021) [facility] History of Past illness Narrative* Problem Noted Date Resolved Date Chest pain 06/05/2019 06/11/2019 Chest pain 06/01/2019 06/02/2019 Last Assessment & Plan: Concerning 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 & SOB x6 weeks CLOUD SECURITY ARCHITECT CT chest shows calcified coronary vessels Echo 05/07/19 w/ EF 66%, grade I diastolic dysfunction Cycle Troponin x3 with EKGs PRN for ACS rule out Check lipid panel and A1c for risk stratification Maintain continuous telemetry monitoring Cards consult as obtain to obtain stress test over weekend documented as of this encounter (statuses as of 11/09/2021) [facility] History of Past illness Narrative* Problem Noted Date Resolved Date Chest pain 06/05/2019 06/11/2019 Chest pain 06/01/2019 06/02/2019 Last Assessment & Plan: Concerning 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 & SOB x6 weeks CLOUD SECURITY ARCHITECT CT chest shows calcified coronary vessels Echo 05/07/19 w/ EF 66%, grade I diastolic dysfunction Cycle Troponin x3 with EKGs PRN for ACS rule out Check lipid panel and A1c for risk stratification Maintain continuous telemetry monitoring Cards consult as obtain to obtain stress test over weekend documented as of this encounter (statuses as of 03/15/2022) [facility] of Past illness Narrative* Problem Noted Date Resolved Date Chest pain 06/05/2019 06/11/2019 Chest pain 06/01/2019 06/02/2019 Last Assessment & Plan: Concerning 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 & SOB x6 weeks CLOUD SECURITY ARCHITECT CT chest shows calcified coronary vessels Echo 05/07/19 w/ EF 66%, grade I diastolic dysfunction Cycle Troponin x3 with EKGs PRN for ACS rule out Check lipid panel and A1c for risk stratification Maintain continuous telemetry monitoring Cards consult as obtain to obtain stress test over weekend documented as of this encounter (statuses as of 04/16/2022) [facility] of Past illness Narrative* Problem Noted Date Resolved Date Chest pain 06/05/2019 06/11/2019 Chest pain 06/01/2019 06/02/2019 Last Assessment & Plan: Concerning 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 & SOB x6 weeks CLOUD SECURITY ARCHITECT CT chest shows calcified coronary vessels Echo 05/07/19 w/ EF 66%, grade I diastolic dysfunction Cycle Troponin x3 with EKGs PRN for ACS rule out Check lipid panel and A1c for risk stratification Maintain continuous telemetry monitoring Cards consult as obtain to obtain stress test over weekend documented as of this encounter (statuses as of 04/16/2022) [facility] of Past illness Narrative* Problem Noted Date Resolved Date Chest pain 06/05/2019 06/11/2019 Chest pain 06/01/2019 06/02/2019 Last Assessment & Plan: Concerning 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 & SOB x6 weeks CLOUD SECURITY ARCHITECT CT chest shows calcified coronary vessels Echo 05/07/19 w/ EF 66%, grade I diastolic dysfunction Cycle Troponin x3 with EKGs PRN for ACS rule out Check lipid panel and A1c for risk stratification Maintain continuous telemetry monitoring Cards consult as obtain to obtain stress test over weekend documented as of this encounter (statuses as of 05/06/2022) [facility] of Past illness Narrative* Problem Noted Date Resolved Date Chest pain 06/05/2019 06/11/2019 Chest pain 06/01/2019 06/02/2019 Last Assessment & Plan: Concerning 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 & SOB x6 weeks CLOUD SECURITY ARCHITECT CT chest shows calcified coronary vessels Echo 05/07/19 w/ EF 66%, grade I diastolic dysfunction Cycle Troponin x3 with EKGs PRN for ACS rule out Check lipid panel and A1c for risk stratification Maintain continuous telemetry monitoring Cards consult as obtain to obtain stress test over weekend documented as of this encounter (statuses as of 05/19/2022) [facility] of Past illness Narrative* Problem Noted Date Resolved Date Chest pain 06/05/2019 06/11/2019 Chest pain 06/01/2019 06/02/2019 Last Assessment & Plan: Concerning 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 & SOB x6 weeks CLOUD SECURITY ARCHITECT CT chest shows calcified coronary vessels Echo 05/07/19 w/ EF 66%, grade I diastolic dysfunction Cycle Troponin x3 with EKGs PRN for ACS rule out Check lipid panel and A1c for risk stratification Maintain continuous telemetry monitoring Cards consult as obtain to obtain stress test over weekend documented as of this encounter (statuses as of 05/24/2022) [facility] of Past illness Narrative* Problem Noted Date Resolved Date Chest pain 06/05/2019 06/11/2019 Chest pain 06/01/2019 06/02/2019 Last Assessment & Plan: Concerning 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 & SOB x6 weeks CLOUD SECURITY ARCHITECT CT chest shows calcified coronary vessels Echo 05/07/19 w/ EF 66%, grade I diastolic dysfunction Cycle Troponin x3 with EKGs PRN for ACS rule out Check lipid panel and A1c for risk stratification Maintain continuous telemetry monitoring Cards consult as obtain to obtain stress test over weekend documented as of this encounter (statuses as of 06/02/2022) [facility] of Past illness Narrative* Problem Noted Date Resolved Date Chest pain 06/05/2019 06/11/2019 Chest pain 06/01/2019 06/02/2019 Last Assessment & Plan: Concerning 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 & SOB x6 weeks CLOUD SECURITY ARCHITECT CT chest shows calcified coronary vessels Echo 05/07/19 w/ EF 66%, grade I diastolic dysfunction Cycle Troponin x3 with EKGs PRN for ACS rule out Check lipid panel and A1c for risk stratification Maintain continuous telemetry monitoring Cards consult as obtain to obtain stress test over weekend documented as of this encounter (statuses as of 06/06/2022) [facility] of Past illness Narrative* Problem Noted Date Resolved Date Chest pain 06/05/2019 06/11/2019 Chest pain 06/01/2019 06/02/2019 Last Assessment & Plan: Concerning 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 & SOB x6 weeks CLOUD SECURITY ARCHITECT CT chest shows calcified coronary vessels Echo 05/07/19 w/ EF 66%, grade I diastolic dysfunction Cycle Troponin x3 with EKGs PRN for ACS rule out Check lipid panel and A1c for risk stratification Maintain continuous telemetry monitoring Cards consult as obtain to obtain stress test over weekend documented as of this encounter (statuses as of 08/23/2022) [facility] of Past [facility] Narrative* Problem Noted Date Resolved Date Chest pain 06/05/2019 06/11/2019 Chest pain 06/01/2019 06/02/2019 Last Assessment & Plan: Concerning 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 & SOB x6 weeks CLOUD SECURITY ARCHITECT CT chest shows calcified coronary vessels Echo 05/07/19 w/ EF 66%, grade I diastolic dysfunction Cycle Troponin x3 with EKGs PRN for ACS rule out Check lipid panel and A1c for risk stratification Maintain continuous telemetry monitoring Cards consult as obtain to obtain stress test over weekend documented as of this encounter (statuses as of 10/22/2022) [facility] Narrative* Problem Noted Date Resolved Date Chest pain 06/05/2019 06/11/2019 Chest pain 06/01/2019 06/02/2019 Last Assessment & Plan: Concerning 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 & SOB x6 weeks CLOUD SECURITY ARCHITECT CT chest shows calcified coronary vessels Echo 05/07/19 w/ EF 66%, grade I diastolic dysfunction Cycle Troponin x3 with EKGs PRN for ACS rule out Check lipid panel and A1c for risk stratification Maintain continuous telemetry monitoring Cards consult as obtain to obtain stress test over weekend documented as of this encounter (statuses as of 10/22/2022) [facility] Narrative* Problem Noted Date Diagnosed Date Resolved Date Chest pain 06/05/2019 06/11/2019 Chest pain 06/01/2019 06/02/2019 Last Assessment & Plan: Concerning 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 & SOB x6 weeks CLOUD SECURITY ARCHITECT CT chest shows calcified coronary vessels Echo 05/07/19 w/ EF 66%, grade I diastolic dysfunction Cycle Troponin x3 with EKGs PRN for ACS rule out Check lipid panel and A1c for risk stratification Maintain continuous telemetry monitoring Cards consult as obtain to obtain stress test over weekend documented as of this encounter (statuses as of 11/09/2022) [facility] Coronary 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- Primary Primary hypertension Unspecified essential hypertension Dyslipidemia Other and unspecified hyperlipidemia HARLEY on CPAP Obstructive sleep apnea (adult) (pediatric) Dyspnea on exertion Other dyspnea and respiratory abnormality [facility] Primary hypertension- Primary Unspecified essential hypertension Coronary 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 Other hyperlipidemia Elevated glucose Other abnormal glucose [facility] Dyslipidemia Other and unspecified hyperlipidemia Primary hypertension Unspecified essential hypertension [facility] Diagnosis Screening for ischemic heart disease- Primary Coronary 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 Primary hypertension Unspecified essential hypertension Other hyperlipidemia HARLEY on CPAP Obstructive sleep apnea (adult) (pediatric) Dyspnea on exertion Other dyspnea and respiratory abnormality [facility] Diagnosis Tachycardia- Primary Tachycardia, unspecified Primary hypertension Unspecified essential hypertension Hx of CABG Postsurgical aortocoronary bypass status [facility] Diagnosis Essential hypertension- Primary Unspecified essential hypertension Tachycardia Tachycardia, unspecified Coronary 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 Other hyperlipidemia Elevated glucose Other abnormal glucose Hx of CABG Postsurgical aortocoronary bypass status GERD without esophagitis Esophageal reflux HARLEY on CPAP Obstructive sleep apnea (adult) (pediatric) Onychomycosis Dermatophytosis of nail [facility] Diagnosis Right knee pain, unspecified chronicity- Primary [facility] Diagnosis Dyslipidemia Other and unspecified hyperlipidemia [facility] Diagnosis Pain in toe of left foot- Primary Pain in limb Onychomycosis Dermatophytosis of nail Pain in toe of right foot Pain in limb Pes planus of both feet [facility] Diagnosis COVID- Primary [facility] Diagnosis Essential hypertension- Primary Unspecified essential hypertension Other hyperlipidemia Elevated glucose Other abnormal glucose Coronary 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 Hx of CABG Postsurgical aortocoronary bypass status GERD without esophagitis Esophageal reflux HARLEY on CPAP Obstructive sleep apnea (adult) (pediatric) Hemorrhoids, unspecified hemorrhoid type [facility] Outpatient Procedure (Routine) - Closed Specialty Diagnoses / Procedures Referred By Haily shannon Referred To Contact [facility] Diagnoses Screening for ischemic heart disease Procedures ECG COMPLETE ECG ROUTINE ECG W/LEAST 12 LDS W/I&R Drake Mccarthy MD [address] [place] [address] [facility] [address] [place] [address] Referral ID Status Reason Start Date Expiration Date V isits Requested Visits Authorized [id number] Closed Auto-Generate d Referral 03/10/2022 03/10/2023 [facility] Procedure (Routine) - Closed Specialty Diagnoses / Procedures Referred By Haily shannon [facility] Diagnoses Tachycardia Procedures ECG COMPLETE ECG ROUTINE ECG W/LEAST 12 LDS W/I&R Bella Mead MD [address] [place] [address] [facility] [address] [place] [address] Referral ID Status Reason Start Date Expiration Date V isits Requested Visits Authorized [id number] Closed Auto-Generate d Referral 04/15/2022 04/15/2023 1 1 [facility] Summary Purpose Family History No Family History Records FoundNo Family History Records FoundNo Family History Records Found Advance Directives No Advanced Directives Records FoundDocuments on File Type Date Recorded 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 Signature: Nj Turner MD Date: 06/11/2019 [...] (more content not included)... Note HNO ID: [id number] Author: Navjot Turner Service: Cardiac Surgery Author Type: Physician Type: Brief Op Note Filed: 06/06/2019 2:00 PM Note Text: BRIEF OPERATIVE / PROCEDURE NOTE LOG ID: [id number] SURGERY/PROCEDURE DATE: 06/06/2019 INCISION/PROCEDURE START TIME: 9:21 AM INCISION CLOSE/PROCEDURE END TIME: SURGEON(S)/PROCEDURALIST(S) AND SAT TUTOR(S): Surgeon(s) and Role: * Nj Turner - Primary Physician [employer]: Feliberto Guaman (Pa); Martínez Moseley) Regan Mora (Art-C) Jesus Alberto SURGERY/PROCEDURE(S): cabgx3 ANESTHESIA: General FINDINGS: none ESTIMATED BLOOD LOSS: 200mls SPECIMENS: None COMPLICATIONS: None PRE-OP/PRE-PROCEDURE DIAGNOSIS: cad POST-OP/POST-PROCEDURE DIAGNOSIS: cad SIGNATURE: Nj Turner MD PATIENT NAME: Leonor Loaiza DATE: June 06, 2019 TIME: 2:00 PM PAGER/CONTACT #: Note HNO ID: [id number] Author: Bethany Taylor) [place] Service: Hospital Medicine Author Type: Nurse Practitioner [...] not included)... Procedure Findings Note HNO ID: [id number] Author: Navjot Turner Service: Cardiac Surgery Author Type: Physician Type: Brief Op Note Filed: 06/06/2019 2:00 PM Note Text: BRIEF OPERATIVE / PROCEDURE NOTE LOG ID: [id number] SURGERY/PROCEDURE DATE: 06/06/2019 INCISION/PROCEDURE START TIME: 9:21 AM INCISION CLOSE/PROCEDURE END TIME: SURGEON(S)/PROCEDURALIST(S) AND SAT TUTOR(S): Surgeon(s) and Role: * Nj Turner - Primary Physician [employer]: Feliberto Soliz (Pa) (Solange) Regan Mora (Solange) Jesus Alberto SURGERY/PROCEDURE(S): cabgx3 ANESTHESIA: [...] 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 Onychomycosis Procedures CONSULT TO PODIATRY OFFICE/OUTPATIENT [facility] 60-74 MINUTES Bella Mead MD [address] [place] [address] Referral ID Status Reason Start Date Expiration Date Visits Requested Visits Authorized [id number] Pending Review PCP Requested Referral 05/06/2022 05/06/2023 1 1 Specialty Diagnoses / Procedures Referred By Haily shannon Referred To Contact Orthopedics Diagnoses Right knee pain, unspecified chronicity Procedures CONSULT TO ORTHOPAEDICS OFFICE/OUTPATIENT NEW HIGH MDM 60-74 MINUTES Bella Mead MD [address] [place] [address] Referral ID Status Reason Start Date Expiration Date Visits Requested Visits Authorized [id number] Pending Review PCP Requested Referral 05/17/2022 05/17/2023 1 1 Additional Source Comments (unrecognized sect ion and content) No Status Records FoundNo Status Records FoundNo Status Records Found INFORMATION SOURCE (unrecogn ized section and content) DATE CREATED AUTHOR AUTHOR'S ORGANIZ ATION 04/03/2020 [facility] DATE CREATED AUTHOR AUTHOR'S ORGANIZ ATION 05/02/2023 [facility] Source Comments (unrecognize d section and content) In the event this informatio n is protected by the Federal Confidentiality of Alcohol and Drug Abuse Patient Records regulations: The Federal rules restrict any use of the information to criminally investigate or prosecute any alcohol or drug abuse patient.[facility] the event this information is protected by the Federal Confidentiality of Alcohol and Drug Abuse Patient Records regulations: The Federal rules restrict any use of the information to criminally investigate or prosecute any alcohol or drug abuse patient.[facility] Center[facility] the event this information is protected by the Federal Confidentiality of Alcohol and Drug Abuse Patient Records regulations: The Federal rules restrict any use of the information to criminally investigate or prosecute any alcohol or drug abuse patient.[facility] CenterIn the event this information is protected by the Federal Confidentiality of Alcohol and Drug Abuse Patient Records regulations: The Federal rules restrict any use of the information to criminally investigate or prosecute any alcohol or drug abuse patient.[facility] CenterIn the event this information is protected by the Federal Confidentiality of Alcohol and Drug Abuse Patient Records regulations: The Federal rules restrict any use of the information to criminally investigate or prosecute any alcohol or drug abuse patient.[facility] CenterIn the event this information is protected by the Federal Confidentiality of Alcohol and Drug Abuse Patient Records regulations: The Federal rules restrict any use of the information to criminally investigate or prosecute any alcohol or drug abuse patient.[facility] CenterIn the event this information is protected by the Federal Confidentiality of Alcohol and Drug Abuse Patient Records regulations: The Federal rules restrict any use of the information to criminally investigate or prosecute any alcohol or drug abuse patient.[facility] CenterIn the event this information is protected by the Federal Confidentiality of Alcohol and Drug Abuse Patient Records regulations: The Federal rules restrict any use of the information to criminally investigate or prosecute any alcohol or drug abuse patient.[facility] CenterIn the event this information is protected by the Federal Confidentiality of Alcohol and Drug Abuse Patient Records regulations: The Federal rules restrict any use of the information to criminally investigate or prosecute any alcohol or drug abuse patient.[facility] CenterIn the event this information is protected by the Federal Confidentiality of Alcohol and Drug Abuse Patient Records regulations: The Federal rules restrict any use of the information to criminally investigate or prosecute any alcohol or drug abuse patient.[facility] CenterIn the event this information is protected by the Federal Confidentiality of Alcohol and Drug Abuse Patient Records regulations: The Federal rules restrict any use of the information to criminally investigate or prosecute any alcohol or drug abuse patient.[facility] CenterIn the event this information is protected by the Federal Confidentiality of Alcohol and Drug Abuse Patient Records regulations: The Federal rules restrict any use of the information to criminally investigate or prosecute any alcohol or drug abuse patient.[facility] CenterIn the event this information is protected by the Federal Confidentiality of Alcohol and Drug Abuse Patient Records regulations: The Federal rules restrict any use of the information to criminally investigate or prosecute any alcohol or drug abuse patient.[facility] CenterIn the event this information is protected by the Federal Confidentiality of Alcohol and Drug Abuse Patient Records regulations: The Federal rules restrict any use of the information to criminally investigate or prosecute any alcohol or drug abuse patient.[facility] CenterIn the event this information is protected by the Federal Confidentiality of Alcohol and Drug Abuse Patient Records regulations: The Federal rules restrict any use of the information to criminally investigate or prosecute any alcohol or drug abuse patient.[facility] CenterIn the event this information is protected by the Federal Confidentiality of Alcohol and Drug Abuse Patient Records regulations: The Federal rules restrict any use of the information to criminally investigate or prosecute any alcohol or drug abuse patient.[facility] CenterIn the event this information is protected by the Federal Confidentiality of Alcohol and Drug Abuse Patient Records regulations: The Federal rules restrict any use of the information to criminally investigate or prosecute any alcohol or drug abuse patient.[facility] CenterIn the event this information is protected by the Federal Confidentiality of Alcohol and Drug Abuse Patient Records regulations: The Federal rules restrict any use of the information to criminally investigate or prosecute any alcohol or drug abuse patient.[facility] CenterIn the event this information is protected by the Federal Confidentiality of Alcohol and Drug Abuse Patient Records regulations: The Federal rules restrict any use of the information to criminally investigate or prosecute any alcohol or drug abuse patient.[facility] CenterIn the event this information is protected by the Federal Confidentiality of Alcohol and Drug Abuse Patient Records regulations: The Federal rules restrict any use of the information to criminally investigate or prosecute any alcohol or drug abuse patient.[facility] Reason for Visit (unrecogniz ed [...] 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 Onychomycosis Procedures CONSULT TO PODIATRY OFFICE/OUTPATIENT NEW HIGH MDM 60-74 MINUTES Bella Mead MD [address] [place] [address] Referral ID Status Reason Start Date Expiration Date Visits Requested Visits Authorized [id number] Pending Review PCP Requested Referral 05/06/2022 05/06/2023 1 1 Reason Onset Date Comments Refill Request 08/23/2022 Reason Comments Covid Positive Reason Comments F/U 6 Month Care Teams (unrecognized sec tion and content) Product Planner Relationship Specialty Start Date End Date Bella Mead MD [address] [facility] [place] [address] PCP - General Family Practice 01/15/19 Product Planner Relationship Specialty Start Date End Date Bella Mead MD [address] [facility] [place] [address] PCP - General Family Practice 01/15/19 Product Planner Relationship Specialty [place] [address] [place] [address] [place] [address] PCP - General Family Practice 01/15/19 Product Planner Relationship Specialty Start Date End Date Bella Mead MD [address] [facility] [place] [address] PCP - General Family Practice 01/15/19 Product Planner Relationship Specialty Start Date End Date Bella Mead MD [address] [facility] [place] [address] PCP - General Family Practice 01/15/19 Product Planner Relationship Specialty Start Date End Date Bella Mead MD [address] [place] [address] PCP - General Family Practice 01/15/19 Product Planner Relationship Specialty Start Date End Date Bella Mead MD [facility] [facility] [place] [address] PCP - General Family Medicine 01/15/19 Product Planner Relationship Specialty Start Date End Date Bella Mead MD [address] [facility] [place] [address] PCP - General Family Medicine 01/15/19 Product Planner Relationship Specialty Start Date End Date Bella Mead MD [address] [facility] [place] [address] PCP - General Family Medicine 01/15/19 Product Planner Relationship Specialty Start Date End Date Bella Mead MD [address] [facility] [place] [address] PCP - General Family Medicine 01/15/19 Product Planner Relationship Specialty Start Date End Date Bella Mead MD [address] [facility] [place] [address] PCP - General Family Medicine 01/15/19 Product Planner Relationship Specialty Start Date End Date Bella Mead MD [address] [facility] [place] [address] PCP - General Family Medicine 01/15/19 Product Planner Relationship Specialty Start Date End Date Bella Mead MD [address] [facility] [place] [address] PCP - General Family Medicine 01/15/19 Product Planner Relationship Specialty Start Date End Date Bella Mead MD [address] [facility] [place] [address] PCP - General Family Medicine 01/15/19 Product Planner Relationship Specialty Start Date End Date Bella Mead MD [address] [facility] [place] [address] PCP - General Family Medicine 01/15/19 Product Planner Relationship Specialty Start Date End Date Bella Mead MD [address] [facility] [place] [address] PCP - General Family Medicine 01/15/19 FOR [...] BE BASED ON THE PRIMARY CLINICAL RECORDS. [facility] [employer] [facility]. provides no warranty or guarantee of the accuracy or completeness of information in this document.
--- OUTSIDE RECORDS SUMMARY | 2023-05-05 17:39 | XMS RPT_ITS | CCD ---
Author Name Unknown Address [address] [place] [address] Organization [facility] Care Team Providers Care Peritoneal Dialysis Registered Nurse Name Role Phone Bella Mead MD Primary [...] Mead MD Work Phone: [facility] 11-09-2022 09:30-0400 Diastolic blood pressure 78 mm[Hg] Bella Mead MD Work Phone: [facility] 11-09-2022 09:30-0400 Heart rate 56 /min Bella Mead MD Work Phone: [facility] 11-09-2022 09:30-0400 Respiratory rate 16 /min Bella Mead MD Work Phone: [facility] 11-09-2022 09:30-0400 Systolic blood pressure 124 mm[Hg] Bella Mead MD Work Phone: [facility] 05-06-2022 09:22-0500 Body weight 78.93 kg Bella Mead MD Work Phone: [facility] 05-06-2022 09:22-0500 Diastolic blood pressure 82 mm[Hg] Bella Mead MD Work Phone: [facility] 05-06-2022 09:22-0500 Heart rate 60 /min Bella Mead MD Work Phone: [facility] 05-06-2022 09:22-0500 Respiratory rate 16 /min Bella Mead MD Work Phone: [facility] 05-06-2022 09:22-0500 Systolic blood pressure 134 mm[Hg] Bella Mead MD Work Phone: [facility] 04-15-2022 10:50-0500 Body weight 80.11 kg Bella Mead MD Work Phone: [facility] 04-15-2022 10:50-0500 Diastolic blood pressure 78 mm[Hg] Bella Mead MD Work Phone: [facility] 04-15-2022 10:50-0500 Heart rate 82 /min Bella Mead MD Work Phone: [facility] 04-15-2022 10:50-0500 Respiratory rate 16 /min Bella Mead MD Work Phone: [facility] 04-15-2022 10:50-0500 Systolic blood pressure 118 mm[Hg] Bella Mead MD Work Phone: [facility] 03-15-2022 15:19-0500 Body weight 79.83 kg Drake Mccarthy MD Work Phone: [facility] 03-15-2022 15:19-0500 Diastolic blood pressure 80 mm[Hg] Drake Mccarthy MD Work Phone: [facility] 03-15-2022 15:19-0500 Heart rate 60 /min Drake Mccarthy MD Work Phone: [facility] 03-15-2022 15:19-0500 Systolic blood pressure 130 mm[Hg] Drake Mccarthy MD Work Phone: [facility] 11-03-2021 09:22-0400 Body weight 76.93 kg Bella Mead MD Work Phone: [facility] 11-03-2021 09:22-0400 Diastolic blood pressure 80 mm[Hg] Bella Mead MD Work Phone: [facility] 11-03-2021 09:22-0400 Heart rate 70 /min Bella Mead MD Work Phone: [facility] 11-03-2021 09:22-0400 Respiratory rate 16 /min Bella Mead MD Work Phone: [facility] 11-03-2021 09:22-0400 Systolic blood pressure 120 mm[Hg] Bella Mead MD Work Phone: [facility] 08-31-2021 10:02-0400 Body weight 78.93 kg Drake Mccarthy MD Work Phone: [facility] 08-31-2021 10:02-0400 Diastolic blood pressure 82 mm[Hg] Drake Mccarthy MD Work Phone: [facility] 08-31-2021 10:02-0400 Heart rate 56 /min Drake Mccarthy MD Work Phone: [facility] 08-31-2021 10:02-0400 SaO2% (BldA) [Mass fraction] 97 % Drake Mccarthy MD Work Phone: [facility] 08-31-2021 10:02-0400 Systolic blood pressure 164 mm[Hg] Drake Mccarthy MD Work Phone: [facility] Encounters Encounter Date Encounter Type Care Provider Facility Start: 05-02-2023 End: 05-02-2023 ambulatory BELLA MEAD Facility:[facility] Start: 04-29-2023 End: 04-29-2023 ambulatory BELLA MEAD Facility:[facility] Start: 04-11-2023 End: 04-11-2023 ambulatory DRAKE MCCARTHY Facility:[facility] Start: 11-09-2022 End: 11-09-2022 ambulatory BELLA MEAD Facility:[facility] Start: 11-09-2022 End: 11-09-2022 Patient encounter procedure Bella Mead MD Work Phone: [facility] [place] Procedures Date Procedure Procedure Detail Performing Clinician [...] LIPID SCREEN LIPID SCREEN [facility] Start: 02-07-2027 Urine microalbumin profile DTAP,TDAP,TD (2 - Td or Tdap) [facility] Start: 10-27-2026 LIPID SCREEN LIPID SCREEN [facility] Start: 05-05-2026 LIPID SCREEN LIPID SCREEN [facility] Start: 11-04-2025 DIABETES SCREEN DIABETES SCREEN [facility] Start: 05-04-2025 DIABETES SCREEN DIABETES SCREEN [facility] Start: 10-27-2024 DIABETES SCREEN DIABETES SCREEN [facility] Start: 05-05-2024 DIABETES SCREEN DIABETES SCREEN [facility] Start: 02-16-2024 Colonoscopy COLONOSCOPY [facility] Start: 02-16-2024 COLORECTAL CANCER SCREENING COLORECTAL CANCER SCREENING [facility] Start: 11-10-2023 ANNUAL PCP TEAM CHRONIC DISEASE VISIT ANNUAL PCP TEAM CHRONIC DISEASE VISIT [facility] Start: 11-10-2023 BP CONTROLLED (<130/80) BP CONTROLLED (<130/80) [facility] Start: 11-05-2023 Hepatitis B surface antibody level LDL CHOLESTEROL [facility] Start: 10-23-2023 ANNUAL PCP TEAM CHRONIC DISEASE VISIT ANNUAL PCP TEAM CHRONIC DISEASE VISIT [facility] Start: 05-12-2023 End: 07-12-2023 CBC W Auto Differential panel - Blood CBC + DIFF Lab Routine Essential hypertension Coronary artery disease involving coronary 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 Hx of CABG Expected: 05/12/2023 (Approximate), Expires: 07/12/2023 [facility] Work Phone: Immunizations Immunization Date Immunization Notes Care Provider Jimmie rodriguez 07-04-2020 COVID-19 vaccine, fu ll dose (MODERNA) Theron Delong MD Work Phone: [facility] 06-06-2020 COVID-19 vaccine, fu ll dose (MODERNA) Theron Delong MD Work Phone: [facility] 02-07-2017 tetanus toxoid, redu zev diphtheria toxoid, and acellular pertussis vaccine, adsorbed Theron Delong MD Work Phone: [facility] 02-01-2017 pneumococcal polysaccharide vaccine, 23 valent Theron Delong MD Work Phone: [facility] Work Phone: 01-27-2016 pneumococcal conjuga te vaccine, 13 valent Theron Delong MD Work Phone: [facility] Work Phone: Payers Date Payer Category Payer Medicare AETNA MEDICARE A ETNA MEDICARE PPO [id number] 2021-Present [phone] [address] [place] [address] PPO [id number] 2021 Medicare AETNA MEDICARE A ETNA MEDICARE PPO [id number] 2021-Present [phone] [address] [place] [address] [facility] [id number] 2021 Medicare [id number] Social History Date Type Detail Facility Start: 03-15-2022 Tobacco smoking stat [facility] Ex-smoker [facility] Work Phone: End: 12-27-1976 History of tobacco use Current smoker [facility] Work Phone: End: 12-27-1976 History of tobacco use Cigarette Smoker [facility] Work Phone: Start: 07-20-2021 End: 11-09-2022 Alcohol intake Current drinker of alcohol (finding) [facility] Start: 04-30-2021 End: 10-22-2022 History SDOH Alcohol Frequency 3 [facility] Start: 04-30-2021 End: 10-22-2022 History SDOH Alcohol Std Drinks 1 [facility] Start: 04-30-2021 End: 10-22-2022 History SDOH Social Connections Phone 2 [facility] Start: 04-30-2021 End: 10-22-2022 History SDOH Social Connections Get Together 4 [facility] Start: 04-30-2021 End: 10-22-2022 History SDOH Physical Activity DPW 5 [facility] Start: 04-30-2021 End: 10-22-2022 History SDOH Physical Activity MPS 9 [facility] Start: 04-23-2019 Education 19 [facility] Start: 1945 Sex Assigned At Not on file [facility] Start: 08-09-2021 End: 03-15-2022 Exposure to SARS-CoV-2 (event) Not sure [facility] Start: 03-15-2022 End: 10-22-2022 Cigarettes smoked current (pack per day) - Reported 1 [facility] Start: 03-15-2022 Tobacco use and exposure Smoke less tobacco non-user [facility] Start: 03-15-2022 Tobacco Comment on and off [facility] Start: 10-22-2022 History SDOH Physica l Activity DPW 7 [facility] Start: 05-06-2022 End: 10-22-2022 Social connection and isolation panel [facility] Do you belong to any clubs or organizations such as rastafarian groups, unions, fraternal or athletic groups, or school groups? Yes [facility] Are you now , , , , never or living with a partner? [facility] How often to you hav e a drink containing alcohol? 2-4 times a month [facility] How many standard dr inks containing alcohol do you have on a typical day? 1 or 2 [facility] How often do you hav e 6 or more drinks on 1 occasion? Never [facility] How hard is it for y ou to pay for the very basics like food, housing, medical care, and heating Not hard at all [facility] Do you feel stress - tense, restless, nervous, or anxious, or unable to sleep at night because your mind is troubled all the time - these days [OSQ] To some extent [facility] (I/We) worried wheth er (my/our) food would run out before (I/we) got money to buy more. Never true [facility] At any time in the p ast 12 months, were you homeless or living in retirement [including now]? No [facility] Medical Equipment Procedure Code Equipment Code Equipment Original Text Equipment Identifier Dates [place] Thk1.65mm Rectangle Ptfe 4.5x6mm Cardi[facility] [place] - [id number] Start: 06-06-2019 Clinical Notes 06-05-2019 to 05-02-2023 Bella Mead MD - 11/09/2022 9:20 AM EDTPatient InstructionsMark Maribell Mead MD - 10/22/2022 11:20 AM EDTMark Maribell Mead MD - 10/22/2022 11:20 AM EDTPatient Instructions Note Date & Type Note Facility 05-02-2023 Note HNO ID: [id number] Author: JACKSON WHITE RN Service: ? Author Type: Registered Nurse Type: Progress Notes Filed: 05/02/2023 10:17 Note Text: EKG complete. Jackson White RN [facility] 04-29-2023 Note HNO ID: [id number] Author: BELLA MEAD MD Service: ? Author Type: Physician Type: Progress Notes Filed: 04/29/2023 10:39 Note Text: Chief Complaint Patient presents with: ED Follow-up: [facility]-new onset A-fib HPI Leonor Loaiza is a [...] children at this time. Pt was at [facility] ER on 04/23/23 for palpitations. He had [...] Discussion due on (more content not included)... [facility] 04-11-2023 Note HNO ID: [id number] Author: Drake Mccarthy MD Service: ? Author Type: Physician Type: Progress Notes Filed: 04/11/2023 3:03 PM Note Text: [facility] SECTION OF REGIONAL CARDIOLOGY Cardiology ([place] ) [address] [facility] [id number] OUTPATIENT VISIT DATE 04/11/2023 PRIMARY CARE PHYSICIAN: Bella Mead [address] [place] [address] HISTORY OF PRESENT ILLNESS: Mr. Loaiza is [...] distal pulses CARDIOVASCULAR MEDICINE TESTING: Cardiac Catheterization [facility] 06/05/2019: POST PROCEDURE DIAGNOSIS: [place] Coronary Artery Disease in the LAD (Severe) 99% proximal, RCA (CLINICAL TRIALS MANAGER) and LCX (CLINICAL TRIALS MANAGER) Normal carotid arteries Echocardiogram 06/05/2019 CONCLUSIONS: - Technically difficult exam due to suboptimal positioning and post cath. - Exam indication: Shortness of Breath - The left ventricle is normal in size. Left ventricular systoli (more content not included)... [facility] 11-09-2022 Note HNO ID: [id number] Author: Bella Mead MD Service: ? Author [...] lbs since June, with a Program called [employer]. He's counting calories. The Program is nutritional based. Exercises by working out 3 days a week at they gym, some home exercises and hiking. Taking Crestor 40 mg daily, tolerating well. Pt follows with Cardio. [place]: Uses nightly Bipap, does well with this. Most days feels he's rested. Receives DME supplies through [employer]. Derm - Taking Doxycycline 20 mg bid [...] Alcohol use: Yes (more content not included)... [facility] 11-09-2022 History of Present illness Narrative [...] lbs since June, with a Program called [employer]. He's counting calories. The Program is nutritional based. Exercises by working out 3 days a week at they gym, some home exercises and hiking. Taking Crestor 40 mg daily, tolerating well. Pt follows with Cardio. HARLEY: Uses nightly Bip[employer], does well with this. Most days feels he's rested. Receives DME supplies through [employer]. Derm - Taking Doxycycline 20 mg bid [...] to receive Covid vaccine, recently Dx with [employer]. Past medical history, appointments, medications, allergies reviewed. [...] artery disease involving coronary 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 - ICD9: 414.05, [...] Past Histories independently gathered by the clinical health support specialist and the remaining scribed note accurately describes [...] documented in this encounter [facility] 10-22-2022 Note HNO ID: [id number] Author: Bella Mead MD Service: ? Author [...] visit. Either the patient or their legal apparel trimmings sales representative has been informed of the risks and benefits of -- and alternatives to -- treatment through a remote evaluation and consents to proceed with the evaluation remotely. Pt completing a virtual visit today due to positive home covid test on 10/21/22. Pt was out of town on 10/15/22-10/18/22 in [place] at his niece's wedding. He believes this [...] PACK Follow up prn Bella Mead MD [facility] 10-22-2022 Note HNO ID: [id number] Author: Bella Mead MD Service: ? Author Type: Physician Type: Progress Notes Filed: 10/22/2022 11:38 AM Note Text: Nirmatrelvir/Ritonavir (Paxlovid) Eligibility and Patient Discussion [facility] Formulary Restriction Criteria: Adult outpatients 18 years [...] Mead MD October 22, 2022 11:37 AM [facility] 10-22-2022 Instructions Bella Mead MD - 10/22/2022 11:23 AM EDT Images from the original note were not included. FACT SHEET FOR PATIENTS, PARENTS, AND CAREGIVERS EMERGENCY USE AUTHORIZATION (EUA) OF PAXLOVID FOR CORONAVIRUS DISEASE 2019 (COVID-19) You are being given this Fact Sheet because your healthcare provider believes it is necessary to provide you with PAXLOVID for the treatment of yrez-xe-iitvprub coronavirus disease (COVID-19) caused by the SARS-CoV-2 [...] virus. COVID-19 illnesses have ranged from very sala-ay-dkwbkc, including illness resulting in . While information [...] (40 kg)] with a current diagnosis of elci-as-ygxcaddu COVID-19 and who are at high risk for progression to severe COVID-19, including hospitalization or . PAXLOVID is investigational because it is still being studied. There is limited information about the safety and effectiveness of using PAXLOVID to treat people with crzd-ft-nigbgjum COVID-19. The FDA has authorized the emergency use of PAXLOVID for the treatment of cbij-dm-tzustkvh COVID-19 in adults and children [12 years of age and older weighing at least 88 pounds (40 kg)] with a current diagnosis of uxef-rr-aoeodxrf COVID-19 and who are at high risk [...] the merdicines you take, including prescription and vmqv-nft-xndbdvm medicines, vitamins, and herbal supplements. Your healthcare [...] Morning or Evening, depending on when you pick and shovel man your prescription, or as recommended by your [...] (remdesivir) is FDA-approved for the treatment of lzwf-ls-xzdjxamc COVID-19 in certain adults and children. Talk with your doctor to see if Veklury is appropriate for you. Like PAXLOVID, FDA may also allow for the emergency use of other medicines to treat people with COVID-19. Go to https://www.fda.gov/emergency-pre semuvjdez-qth-obwqiohr/mcm-legal- svotdbeyhi-ttc-tzqdwo-framework/e jwbhsidx-emw-moyadngdvxhwi for information on the emergency use of [...] if I am or ? There is casino cage manager treating women or mothers with PAXLOVID. For [...] for examples of PAXLOVID Dose Packs) to [employer] at www.fda.gov/medwatch or call 3-952-TBW6324 or you can report side effects to [facility]. at the contact information provided below. Website Fax number Telephone number [employer] How should I store PAXLOVID? Store PAXLOVID [...] (EUA). The EUA is supported by a Mechanical [employer] of Health and Human Service (HHS) declaration that circumstances exist to justify the emergency use of drugs and biological products during the COVID-19 pandemic. PAXLOVID for the treatment of tltu-la-cggkmjyn COVID-19 in adults and children [12 years [...] telephone number provided below. Website Telephone number www.[employer] (6-717-J56-PACK) You can also go to www.[employer] BATTERY or call for more information. Pfizer Distributed by [employer] Division of [facility] [place] [address] [id number] Revised: 05/2022 documented in this encounter [facility] 10-22-2022 History of Present illness Narrative Chief [...] visit. Either the patient or their legal apparel trimmings sales representative has been informed of the risks and benefits of -- and alternatives to -- treatment through a remote evaluation and consents to proceed with the evaluation remotely. Pt completing a virtual visit today due to positive home covid test on 10/21/22. Pt was out of town on 10/15/22-10/18/22 in [place] at his niece's wedding. He believes this [...] Eligibility and Patient Discussion [facility] Formulary Restriction Criteria: Adult outpatients 18 years [...] documented in this encounter [facility] 10-22-2022 Miscellaneous Notes Called home phone and spoke with pt who was agreeable to appt. Pt scheduled, reviewed chart. Jocelyn Kee Ma Call to pt received identifiable VM. LM on VM notifying pt we received his [employer] message and have offered a same day VV at 11:20 am with PCP, spot held. Pt made aware that [employer] message sent to him. Asked pt to call office and speak with FM Triage Nurse or respond back via [employer] if this appt time works for him. Jocelyn Kee Ma Offered pt VV with PCP at 11:20 to discuss Paxlovid. Wait pt response. Jocelyn Kee Ma documented in this encounter [facility] 08-23-2022 Miscellaneous Notes The following approved medication requests have been transmitted electronically. Requested Prescriptions Pending Prescriptions Disp Refills metoprolol tartrate, short acting, (LOPRESSOR) 50 mg tablet 180 tablet 3 Sig: Take 1 tablet by mouth q 12 HR. Magen Gilman APRN.SHIPPING RECEIVING MANAGER Patient phones requesting refills as follows: Requested Prescriptions Pending Prescriptions Disp Refills metoprolol tartrate, short acting, (LOPRESSOR) 50 mg tablet 180 tablet 3 Sig: Take 1 tablet by mouth q 12 HR. MEGGAN-05/06/22 Labs-05/04/22 NOV-11/09/22 med filled 08/25/21 Please review and advise. Kimi Oscar LPN documented in this encounter [facility] 06-03-2022 Note HNO ID: [id number] Author: Ailin Gunn LPN Service: ? Author Type: LICENSED NURSE Type: Progress Notes Filed: 06/06/2022 12:19 PM Note Text: Per Leonor Lundy was provided with HelloBookstep original inserts, size 11, and instructed/educated in its application, wear, and care. All questions were answered, and patient was able to demonstrate competence with the necessary skills to utilize the above equipment. Ailin Gunn LPN [facility] 06-03-2022 Note HNO ID: [id number] Author: Marly Beth Service: ? Author Type: [...] or crepitus are (more content not included)... [facility] 06-03-2022 Note HNO ID: [id number] Author: Ailin Gunn LPN Service: ? Author [...] to him flat feet. Ailin Gunn LPN [facility] 06-03-2022 History of Present illness Narrative [...] Beth DPM Podiatry [address] [facility] [address] Dept: [phone] Dept AMB ROOMING INTAKE FLOWSHEET DATA Pain [...] documented in this encounter [facility] 06-03-2022 Instructions Marly Beth - 06/03/2022 12:03 PM EST Powerstep Original Full length. Can purchase at [employer] here in [place], [employer] in [place] or [place]. Also can find in [place] in [facility]. Powersteps can also be purchased online, [...] documented in this encounter [facility] 05-24-2022 Miscellaneous Notes Patient's request for medication is as follows: Requested Prescriptions Pending Prescriptions Disp Refills rosuvastatin (CRESTOR) 40 mg tablet 90 tablet 3 Sig: Take 1 tablet by mouth daily at bedtime. Last seen 03/15/2022. Follow up scheduled for 10/25/2022. Prescription(s) as above. Please process accordingly. Estella Garcia LPN documented in this encounter [facility] 05-17-2022 Miscellaneous Notes Pt sent [employer] message notifying him that Ortho referral has been placed. Notified pt to contact office to schedule an appt. Jocelyn Kee Ma I would suggest an Ortho consult; order filed Bella Mead MD See pt message. Pt seen on 05/06/22 with evaluation done. Jocelyn Kee Ma documented in this encounter [facility] 05-12-2022 Miscellaneous Notes Returned patient's call. He had received a phone call earlier to reschedule his appointment that was in May. Transferred patient to schedulers to reschedule appointment. Patient called. Verified name and date of . Patient returning call to [facility] and would like to get surgery scheduled. Mobile number is preferred contact number. Chela Gomez LPN documented in this encounter [facility] 05-06-2022 Note HNO ID: [id number] Author: Bella Mead MD Service: ? Author [...] No ectopy. Extremities: (more content not included)... [facility] 05-06-2022 History of Present illness Narrative [...] artery disease involving coronary 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 - ICD9: 414.05, [...] Past Histories independently gathered by the clinical health support specialist and the remaining scribed note accurately describes [...] documented in this encounter [facility] 04-15-2022 History of Present illness Narrative Chief [...] having anxiety over doing a reading in [employer] last night. He has felt more stressed [...] documented in this encounter [facility] 04-15-2022 Miscellaneous Notes OK for appt today Bella Mead MD Pt called in and reports a rapid heart rate 80's and 90's x 1 day. Normal for him is 60's to 70's. Pt denies chest pain, chest discomfort, difficulty breathing, pain down left arm, neck pain. Pt scheduled for apt today. Bouchra Cabrera LPN documented in this encounter [facility] 03-15-2022 History of Present illness Narrative Images from the original note were not included. [facility] SECTION OF REGIONAL CARDIOLOGY Cardiology ([place] ) [address] [facility] [facility] [id number] OUTPATIENT VISIT DATE 03/15/2022 PRIMARY CARE PHYSICIAN: Bella Mead [address] [place] [address] HISTORY OF PRESENT ILLNESS: Mr. Loaiza is a 76 year old gentleman with a history of coronary artery disease prior coronary bypass grafting (May 2019), hypertension, and dyslipidemia who presents for routine follow-up. He has been under increased stress. His has been in the fdc for the past 1 year due to [...] distal pulses CARDIOVASCULAR MEDICINE TESTING: Cardiac Catheterization [facility] 06/05/2019: POST PROCEDURE DIAGNOSIS: [place] Coronary Artery Disease in the LAD (Severe) 99% proximal, RCA (CLINICAL TRIALS MANAGER) and LCX (CLINICAL TRIALS MANAGER) Normal carotid arteries Echocardiogram 06/05/2019 CONCLUSIONS: - [...] artery disease involving coronary 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 - ICD9: 414.05, [...] documented in this encounter [facility] 11-09-2021 Miscellaneous Notes I sent the remaining balances on the 08/31/21 prescriptions to [facility]. Pt has an upcoming OV 03/15/22. Beulah Villagran RN documented in this encounter [facility] 11-03-2021 History of Present illness Narrative Chief [...] bid. Follows with Urology, Dr. Shaffer at [facility]. Brother has prostate cancer, going through radiation therapy. Family hx of thyroid cancer, leukemia, and prostate cancer. GERD: doing well, has not been taking Prilosec 20 mg daily. Tinnitus: Both ears. HTN: Elevated BP with multiple messages in changing his regimen. Pt wrote into the office on 09/17/21 and called into the office with chest pain. Pt went to [facility] ED, no issues found with his [...] SI/HI. He states his is still in [facility], unsure if she will be able to [...] artery disease involving coronary 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 - ICD9: 414.05, ICD10: I25.810 Continue current medications. Continue with Cardio 3. Other hyperlipidemia - ICD9: 272.4, ICD10: E78.49 Continue current medications. 4. Shoulder crepitation Monitor; symptomatic treatment Follow up in 6 months with fasting labs prior. I agree with the Chief Complaint, ROS, and Past Histories independently gathered by the clinical health support specialist and the remaining scribed note accurately describes [...] documented in this encounter [facility] 09-17-2021 Miscellaneous Notes Noted and agree with [...] Some shortness of breath Protocols used: CHEST [id number] documented in this encounter [facility] 09-17-2021 Miscellaneous Notes See Nurse Triage note documented in this encounter [facility] 09-16-2021 Miscellaneous Notes Please see pt message and advise. Jocelyn Kee Ma documented in this encounter [facility] 08-31-2021 Instructions Drake Mccarthy MD - 08/31/2021 10:27 AM EDT We are changing the Lisinopril to Losartan 50 mg once per day We are changing the Lipitor to Crestor 40 mg once per day Repeat fasting blood work in 3-4 months documented in this encounter [facility] 08-31-2021 History of Present illness Narrative Images from the original note were not included. [facility] SECTION OF REGIONAL CARDIOLOGY Cardiology ([address]) [address] [facility] [id number] OUTPATIENT VISIT DATE 08/31/2021 PRIMARY CARE PHYSICIAN: Bella Mead [address] [place] [address] HISTORY OF PRESENT ILLNESS: Mr. Loaiza is [...] distal pulses CARDIOVASCULAR MEDICINE TESTING: Cardiac Catheterization [place] 06/05/2019: POST PROCEDURE DIAGNOSIS: 1. [place] Coronary Artery Disease in the LAD (Severe) 99% proximal, RCA (CLINICAL TRIALS MANAGER) and LCX (CLINICAL TRIALS MANAGER) 2. Normal carotid arteries Echocardiogram 06/05/2019 CONCLUSIONS: [...] artery disease involving coronary 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 - ICD9: 414.05, [...] documented in this encounter [facility] 08-25-2021 Miscellaneous Notes See update from pt and refill request. Metoprolol 50 mg previous Rx came from Cardio. 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 shows calcified coronary vessels Echo 05/07/19 w/ EF 66%, grade I diastolic dysfunction Cycle Troponin x3 with EKGs PRN for ACS rule out Check lipid panel and A1c for risk stratification Maintain continuous telemetry monitoring Cards consult as obtain to obtain stress test over weekend documented as of this encounter (statuses as of 08/25/2021) [facility] of Past [facility] Narrative* Problem Noted Date Resolved Date Chest pain 06/05/2019 06/11/2019 Chest pain 06/01/2019 06/02/2019 Last Assessment & Plan: 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 CT chest shows calcified coronary vessels Echo 05/07/19 w/ EF 66%, grade I diastolic dysfunction Cycle Troponin x3 with EKGs PRN for ACS rule out Check lipid panel and A1c for risk stratification Maintain continuous telemetry monitoring Cards consult as obtain to obtain stress test over weekend documented as of this encounter (statuses as of 08/31/2021) [facility] of Past [facility] Narrative* Problem Noted Date Resolved Date Chest pain 06/05/2019 06/11/2019 Chest pain 06/01/2019 06/02/2019 Last Assessment & Plan: 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 CT chest shows calcified coronary vessels Echo 05/07/19 w/ EF 66%, grade I diastolic dysfunction Cycle Troponin x3 with EKGs PRN for ACS rule out Check lipid panel and A1c for risk stratification Maintain continuous telemetry monitoring Cards consult as obtain to obtain stress test over weekend documented as of this encounter (statuses as of 09/17/2021) [facility] Narrative* Problem Noted Date Resolved Date Chest pain 06/05/2019 06/11/2019 Chest pain 06/01/2019 06/02/2019 Last Assessment & Plan: 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 CT chest shows calcified coronary vessels Echo 05/07/19 w/ EF 66%, grade I diastolic dysfunction Cycle Troponin x3 with EKGs PRN for ACS rule out Check lipid panel and A1c for risk stratification Maintain continuous telemetry monitoring Cards consult as obtain to obtain stress test over weekend documented as of this encounter (statuses as of 09/17/2021) [facility] Narrative* Problem Noted Date Resolved Date Chest pain 06/05/2019 06/11/2019 Chest pain 06/01/2019 06/02/2019 Last Assessment & Plan: 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 CT chest shows calcified coronary vessels Echo 05/07/19 w/ EF 66%, grade I diastolic dysfunction Cycle Troponin x3 with EKGs PRN for ACS rule out Check lipid panel and A1c for risk stratification Maintain continuous telemetry monitoring Cards consult as obtain to obtain stress test over weekend documented as of this encounter (statuses as of 11/03/2021) [facility] Narrative* Problem Noted Date Resolved Date Chest pain 06/05/2019 06/11/2019 Chest pain 06/01/2019 06/02/2019 Last Assessment & Plan: 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 CT chest shows calcified coronary vessels Echo 05/07/19 w/ EF 66%, grade I diastolic dysfunction Cycle Troponin x3 with EKGs PRN for ACS rule out Check lipid panel and A1c for risk stratification Maintain continuous telemetry monitoring Cards consult as obtain to obtain stress test over weekend documented as of this encounter (statuses as of 11/09/2021) [facility] of [facility] Narrative* Problem Noted Date Resolved Date Chest pain 06/05/2019 06/11/2019 Chest pain 06/01/2019 06/02/2019 Last Assessment & Plan: 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 CT chest shows calcified coronary vessels Echo 05/07/19 w/ EF 66%, grade I diastolic dysfunction Cycle Troponin x3 with EKGs PRN for ACS rule out Check lipid panel and A1c for risk stratification Maintain continuous telemetry monitoring Cards consult as obtain to obtain stress test over weekend documented as of this encounter (statuses as of 03/15/2022) [facility] of [facility] Narrative* Problem Noted Date Resolved Date Chest pain 06/05/2019 06/11/2019 Chest pain 06/01/2019 06/02/2019 Last Assessment & Plan: 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 CT chest shows calcified coronary vessels Echo 05/07/19 w/ EF 66%, grade I diastolic dysfunction Cycle Troponin x3 with EKGs PRN for ACS rule out Check lipid panel and A1c for risk stratification Maintain continuous telemetry monitoring Cards consult as obtain to obtain stress test over weekend documented as of this encounter (statuses as of 04/16/2022) [facility] Narrative* Problem Noted Date Resolved Date Chest pain 06/05/2019 06/11/2019 Chest pain 06/01/2019 06/02/2019 Last Assessment & Plan: 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 CT chest shows calcified coronary vessels Echo 05/07/19 w/ EF 66%, grade I diastolic dysfunction Cycle Troponin x3 with EKGs PRN for ACS rule out Check lipid panel and A1c for risk stratification Maintain continuous telemetry monitoring Cards consult as obtain to obtain stress test over weekend documented as of this encounter (statuses as of 04/16/2022) [facility] of Past [facility] Narrative* Problem Noted Date Resolved Date Chest pain 06/05/2019 06/11/2019 Chest pain 06/01/2019 06/02/2019 Last Assessment & Plan: 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 CT chest shows calcified coronary vessels Echo 05/07/19 w/ EF 66%, grade I diastolic dysfunction Cycle Troponin x3 with EKGs PRN for ACS rule out Check lipid panel and A1c for risk stratification Maintain continuous telemetry monitoring Cards consult as obtain to obtain stress test over weekend documented as of this encounter (statuses as of 05/06/2022) [facility] Narrative* Problem Noted Date Resolved Date Chest pain 06/05/2019 06/11/2019 Chest pain 06/01/2019 06/02/2019 Last Assessment & Plan: 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 CT chest shows calcified coronary vessels Echo 05/07/19 w/ EF 66%, grade I diastolic dysfunction Cycle Troponin x3 with EKGs PRN for ACS rule out Check lipid panel and A1c for risk stratification Maintain continuous telemetry monitoring Cards consult as obtain to obtain stress test over weekend documented as of this encounter (statuses as of 05/19/2022) [facility] Narrative* Problem Noted Date Resolved Date Chest pain 06/05/2019 06/11/2019 Chest pain 06/01/2019 06/02/2019 Last Assessment & Plan: 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 CT chest shows calcified coronary vessels Echo 05/07/19 w/ EF 66%, grade I diastolic dysfunction Cycle Troponin x3 with EKGs PRN for ACS rule out Check lipid panel and A1c for risk stratification Maintain continuous telemetry monitoring Cards consult as obtain to obtain stress test over weekend documented as of this encounter (statuses as of 05/24/2022) [facility] Narrative* Problem Noted Date Resolved Date Chest pain 06/05/2019 06/11/2019 Chest pain 06/01/2019 06/02/2019 Last Assessment & Plan: 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 CT chest shows calcified coronary vessels Echo 05/07/19 w/ EF 66%, grade I diastolic dysfunction Cycle Troponin x3 with EKGs PRN for ACS rule out Check lipid panel and A1c for risk stratification Maintain continuous telemetry monitoring Cards consult as obtain to obtain stress test over weekend documented as of this encounter (statuses as of 06/02/2022) [facility] Narrative* Problem Noted Date Resolved Date Chest pain 06/05/2019 06/11/2019 Chest pain 06/01/2019 06/02/2019 Last Assessment & Plan: 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 CT chest shows calcified coronary vessels Echo 05/07/19 w/ EF 66%, grade I diastolic dysfunction Cycle Troponin x3 with EKGs PRN for ACS rule out Check lipid panel and A1c for risk stratification Maintain continuous telemetry monitoring Cards consult as obtain to obtain stress test over weekend documented as of this encounter (statuses as of 06/06/2022) [facility] of [facility] Narrative* Problem Noted Date Resolved Date Chest pain 06/05/2019 06/11/2019 Chest pain 06/01/2019 06/02/2019 Last Assessment & Plan: 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 CT chest shows calcified coronary vessels Echo 05/07/19 w/ EF 66%, grade I diastolic dysfunction Cycle Troponin x3 with EKGs PRN for ACS rule out Check lipid panel and A1c for risk stratification Maintain continuous telemetry monitoring Cards consult as obtain to obtain stress test over weekend documented as of this encounter (statuses as of 08/23/2022) [facility] of [facility] Narrative* Problem Noted Date Resolved Date Chest pain 06/05/2019 06/11/2019 Chest pain 06/01/2019 06/02/2019 Last Assessment & Plan: 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 CT chest shows calcified coronary vessels Echo 05/07/19 w/ EF 66%, grade I diastolic dysfunction Cycle Troponin x3 with EKGs PRN for ACS rule out Check lipid panel and A1c for risk stratification Maintain continuous telemetry monitoring Cards consult as obtain to obtain stress test over weekend documented as of this encounter (statuses as of 10/22/2022) [facility] of Past [facility] Narrative* Problem Noted Date Resolved Date Chest pain 06/05/2019 06/11/2019 Chest pain 06/01/2019 06/02/2019 Last Assessment & Plan: 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 CT chest shows calcified coronary vessels Echo 05/07/19 w/ EF 66%, grade I diastolic dysfunction Cycle Troponin x3 with EKGs PRN for ACS rule out Check lipid panel and A1c for risk stratification Maintain continuous telemetry monitoring Cards consult as obtain to obtain stress test over weekend documented as of this encounter (statuses as of 10/22/2022) [facility] of Past [facility] Narrative* Problem Noted Date Diagnosed Date Resolved Date Chest pain 06/05/2019 06/11/2019 Chest pain 06/01/2019 06/02/2019 Last Assessment & Plan: 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 CT chest shows calcified coronary vessels Echo 05/07/19 w/ EF 66%, grade I diastolic dysfunction Cycle Troponin x3 with EKGs PRN for ACS rule out Check lipid panel and A1c for risk stratification Maintain continuous telemetry monitoring Cards consult as obtain to obtain stress test over weekend documented as of this encounter (statuses as of 11/09/2022) [facility] Coronary artery disease involving coronary 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- Primary Primary hypertension Unspecified essential hypertension Dyslipidemia Other and unspecified hyperlipidemia HARLEY on CPAP Obstructive sleep apnea (adult) (pediatric) Dyspnea on exertion Other dyspnea and respiratory abnormality [facility] Primary hypertension- Primary Unspecified essential hypertension Coronary artery disease involving coronary 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 Other hyperlipidemia Elevated glucose Other abnormal glucose [facility] Dyslipidemia Other and unspecified hyperlipidemia Primary hypertension Unspecified essential hypertension [facility] Screening for ischemic heart disease- Primary Coronary artery disease involving coronary 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 Primary hypertension Unspecified essential hypertension Other hyperlipidemia HARLEY on CPAP Obstructive sleep apnea (adult) (pediatric) Dyspnea on exertion Other dyspnea and respiratory abnormality [facility] Diagnosis Tachycardia- Primary Tachycardia, unspecified Primary hypertension Unspecified essential hypertension Hx of CABG Postsurgical aortocoronary bypass status [facility] Diagnosis Essential hypertension- Primary Unspecified essential hypertension Tachycardia Tachycardia, unspecified Coronary artery disease involving coronary 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 Other hyperlipidemia Elevated glucose Other abnormal glucose Hx of CABG Postsurgical aortocoronary bypass status GERD without esophagitis Esophageal reflux HARLEY on CPAP Obstructive sleep apnea (adult) (pediatric) Onychomycosis Dermatophytosis of nail [facility] Diagnosis Right knee pain, unspecified chronicity- Primary [facility] Diagnosis Dyslipidemia Other and unspecified hyperlipidemia [facility] Diagnosis Pain in toe of left foot- Primary Pain in limb Onychomycosis Dermatophytosis of nail Pain in toe of right foot Pain in limb Pes planus of both feet [facility] COVID- Primary [facility] Diagnosis Essential hypertension- Primary Unspecified essential hypertension Other hyperlipidemia Elevated glucose Other abnormal glucose Coronary artery disease involving coronary 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 Hx of CABG Postsurgical aortocoronary bypass status GERD without esophagitis Esophageal reflux HARLEY on CPAP Obstructive sleep apnea (adult) (pediatric) Hemorrhoids, unspecified hemorrhoid type [facility] Outpatient Procedure (Routine) - Closed Specialty Diagnoses / Procedures Referred By Haily shannon Referred To Contact [facility] Diagnoses Screening for ischemic heart disease Procedures ECG COMPLETE ECG ROUTINE ECG W/LEAST 12 LDS W/I&R Drake Mccarthy MD [address] [place] [address] [facility] [place] [address] [place] [address] Referral ID Status Reason Start Date Expiration Date V isits Requested Visits Authorized [id number] Closed Auto-Generate d Referral 03/10/2022 03/10/2023 1 1 [facility] Outpatient Procedure (Routine) - Closed Specialty Diagnoses / Procedures Referred By Haily shannon Referred To Contact [facility] Diagnoses Tachycardia Procedures ECG COMPLETE ECG ROUTINE ECG W/LEAST 12 LDS W/I&R Bella Mead MD [address] [place] [address] [facility] [place] [address] [place] [address] Referral ID Status Reason Start Date Expiration Date V isits Requested Visits Authorized [id number] Closed Auto-Generate d Referral 04/15/2022 04/15/2023 1 1 [facility] Summary Purpose Family History No Family History Records FoundNo Family History Records FoundNo Family History Records Found Advance Directives No Advanced Directives Records FoundDocuments on File Type Date Recorded 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 Note HNO ID: [id number] Author: Navjot Turner Service: Cardiac Surgery Author Type: Physician Type: Brief Op Note Filed: 06/06/2019 2:00 PM Note Text: BRIEF OPERATIVE / PROCEDURE NOTE LOG ID: [id number] SURGERY/PROCEDURE DATE: 06/06/2019 INCISION/PROCEDURE START TIME: 9:21 AM INCISION CLOSE/PROCEDURE END TIME: SURGEON(S)/PROCEDURALIST(S) AND AUDIO VISUAL DESIGN ENGINEER(S): Surgeon(s) and Role: * Nj Turner - Primary Physician Contact Lens Lathe Operator: Feliberto Guaman (Pa); Martínez Moseley) Regan Mora (Art-C) Jesus Alberto SURGERY/PROCEDURE(S): [id number] ANESTHESIA: General FINDINGS: none ESTIMATED BLOOD LOSS: 200mls SPECIMENS: None COMPLICATIONS: None PRE-OP/PRE-PROCEDURE DIAGNOSIS: cad POST-OP/POST-PROCEDURE DIAGNOSIS: cad SIGNATURE: Nj Turner MD PATIENT NAME: Leonor Loaiza DATE: June 06, 2019 TIME: 2:00 PM PAGER/CONTACT #: Note HNO ID: [id number] Author: Bethany Taylor) [place] Service: Hospital Medicine Author Type: Nurse Practitioner [...] not included)... Procedure Findings Note HNO ID: [id number] Author: Navjot Turner Service: Cardiac Surgery Author Type: Physician Type: Brief Op Note Filed: 06/06/2019 2:00 PM Note Text: BRIEF OPERATIVE / PROCEDURE NOTE LOG ID: [id number] SURGERY/PROCEDURE DATE: 06/06/2019 INCISION/PROCEDURE START TIME: 9:21 AM INCISION CLOSE/PROCEDURE END TIME: SURGEON(S)/PROCEDURALIST(S) AND AUDIO VISUAL DESIGN ENGINEER(S): Surgeon(s) and Role: * Nj Turner - Primary Physician Contact Lens Lathe Operator: Feliberto Soliz (Pa) ([place]) Regan Mora ([place]) [...] artery disease involving coronary 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 Onychomycosis Procedures CONSULT TO PODIATRY OFFICE/OUTPATIENT [facility] 60-74 MINUTES Bella Mead MD [address] [place] [address] Referral ID Status Reason Start Date Expiration Date Visits Requested Visits Authorized [id number] Pending Review PCP Requested Referral 05/06/2022 05/06/2023 1 1 Specialty Diagnoses / Procedures Referred By Haily shannon Referred To Contact Orthopedics Diagnoses Right knee pain, unspecified chronicity Procedures CONSULT TO ORTHOPAEDICS OFFICE/OUTPATIENT NEW HIGH MDM 60-74 MINUTES Bella Mead MD [address] [place] [address] Referral ID Status Reason Start Date Expiration Date Visits Requested Visits Authorized [id number] Pending Review PCP Requested Referral 05/17/2022 05/17/2023 1 1 Additional Source Comments (unrecognized sect ion and content) No Status Records FoundNo Status Records FoundNo Status Records Found INFORMATION SOURCE (unrecogn ized section and content) DATE CREATED AUTHOR AUTHOR'S ORGANIZ ATION 04/03/2020 [facility] DATE CREATED AUTHOR AUTHOR'S ORGANIZ ATION 05/02/2023 [facility] Source Comments (unrecognize d section and content) In the event this informatio n is protected by the Federal Confidentiality of Alcohol and Drug Abuse Patient Records regulations: The Federal rules restrict any use of the information to criminally investigate or prosecute any alcohol or drug abuse patient.[facility] event this information is protected by the Federal Confidentiality of Alcohol and Drug Abuse Patient Records regulations: The Federal rules restrict any use of the information to criminally investigate or prosecute any alcohol or drug abuse patient.[facility] the event this information is protected by the Federal Confidentiality of Alcohol and Drug Abuse Patient Records regulations: The Federal rules restrict any use of the information to criminally investigate or prosecute any alcohol or drug abuse patient.[facility] the event this information is protected by the Federal Confidentiality of Alcohol and Drug Abuse Patient Records regulations: The Federal rules restrict any use of the information to criminally investigate or prosecute any alcohol or drug abuse patient.[facility] the event this information is protected by the Federal Confidentiality of Alcohol and Drug Abuse Patient Records regulations: The Federal rules restrict any use of the information to criminally investigate or prosecute any alcohol or drug abuse patient.[facility] the event this information is protected by the Federal Confidentiality of Alcohol and Drug Abuse Patient Records regulations: The Federal rules restrict any use of the information to criminally investigate or prosecute any alcohol or drug abuse patient.[facility] the event this information is protected by the Federal Confidentiality of Alcohol and Drug Abuse Patient Records regulations: The Federal rules restrict any use of the information to criminally investigate or prosecute any alcohol or drug abuse patient.[facility] the event this information is protected by the Federal Confidentiality of Alcohol and Drug Abuse Patient Records regulations: The Federal rules restrict any use of the information to criminally investigate or prosecute any alcohol or drug abuse patient.[facility] the event this information is protected by the Federal Confidentiality of Alcohol and Drug Abuse Patient Records regulations: The Federal rules restrict any use of the information to criminally investigate or prosecute any alcohol or drug abuse patient.[facility] the event this information is protected by the Federal Confidentiality of Alcohol and Drug Abuse Patient Records regulations: The Federal rules restrict any use of the information to criminally investigate or prosecute any alcohol or drug abuse patient.[facility] SystemIn the event this information is protected by the Federal Confidentiality of Alcohol and Drug Abuse Patient Records regulations: The Federal rules restrict any use of the information to criminally investigate or prosecute any alcohol or drug abuse patient.[facility] SystemIn the event this information is protected by the Federal Confidentiality of Alcohol and Drug Abuse Patient Records regulations: The Federal rules restrict any use of the information to criminally investigate or prosecute any alcohol or drug abuse patient.[facility] SystemIn the event this information is protected by the Federal Confidentiality of Alcohol and Drug Abuse Patient Records regulations: The Federal rules restrict any use of the information to criminally investigate or prosecute any alcohol or drug abuse patient.[facility] SystemIn the event this information is protected by the Federal Confidentiality of Alcohol and Drug Abuse Patient Records regulations: The Federal rules restrict any use of the information to criminally investigate or prosecute any alcohol or drug abuse patient.[facility] SystemIn the event this information is protected by the Federal Confidentiality of Alcohol and Drug Abuse Patient Records regulations: The Federal rules restrict any use of the information to criminally investigate or prosecute any alcohol or drug abuse patient.[facility] SystemIn the event this information is protected by the Federal Confidentiality of Alcohol and Drug Abuse Patient Records regulations: The Federal rules restrict any use of the information to criminally investigate or prosecute any alcohol or drug abuse patient.[facility] SystemIn the event this information is protected by the Federal Confidentiality of Alcohol and Drug Abuse Patient Records regulations: The Federal rules restrict any use of the information to criminally investigate or prosecute any alcohol or drug abuse patient.[facility] SystemIn the event this information is protected by the Federal Confidentiality of Alcohol and Drug Abuse Patient Records regulations: The Federal rules restrict any use of the information to criminally investigate or prosecute any alcohol or drug abuse patient.[facility] SystemIn the event this information is protected by the Federal Confidentiality of Alcohol and Drug Abuse Patient Records regulations: The Federal rules restrict any use of the information to criminally investigate or prosecute any alcohol or drug abuse patient.[facility] SystemIn the event this information is protected by the Federal Confidentiality of Alcohol and Drug Abuse Patient Records regulations: The Federal rules restrict any use of the information to criminally investigate or prosecute any alcohol or drug abuse patient.[facility] Reason for Visit (unrecogniz ed section and [...] artery disease involving coronary 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 Onychomycosis Procedures CONSULT TO PODIATRY OFFICE/OUTPATIENT NEW HIGH MDM 60-74 MINUTES Bella Mead MD [address] [place] [address] Referral ID Status Reason Start Date Expiration Date Visits Requested Visits Authorized [id number] Pending Review PCP Requested Referral 05/06/2022 05/06/2023 1 1 Reason Onset Date Comments Refill Request 08/23/2022 Reason Comments Covid Positive Reason Comments F/U 6 Month Care Teams (unrecognized sec tion and content) Peritoneal Dialysis Registered Nurse Relationship Specialty Start Date End Date Bella Mead MD [address] [facility] [place] [address] PCP - General Family Practice 01/15/19 Peritoneal Dialysis Registered Nurse Relationship Specialty Start Date End Date Bella Mead MD [address] [facility] [place] [address] PCP - General Family Practice 01/15/19 Peritoneal Dialysis Registered Nurse Relationship Specialty [place] [address] [place] [address] [place] [address] PCP - General Family Practice 01/15/19 Peritoneal Dialysis Registered Nurse Relationship Specialty Start Date End Date Bella Mead MD [address] [facility] [place] [address] PCP - General Family Practice 01/15/19 Peritoneal Dialysis Registered Nurse Relationship Specialty Start Date End Date Bella Mead MD [address] [facility] [place] [address] PCP - General Family Practice 01/15/19 Peritoneal Dialysis Registered Nurse Relationship Specialty Start Date End Date Bella Mead MD [address] [facility] [place] [address] PCP - General Family Practice 01/15/19 Peritoneal Dialysis Registered Nurse Relationship Specialty Start Date End Date Bella Mead MD [facility] [facility] [place] [address] PCP - General Family Medicine 01/15/19 Peritoneal Dialysis Registered Nurse Relationship Specialty Start Date End Date Bella Mead MD [address] [facility] [place] [address] PCP - General Family Medicine 01/15/19 Peritoneal Dialysis Registered Nurse Relationship Specialty Start Date End Date Bella Mead MD [address] [facility] [place] [address] PCP - General Family Medicine 01/15/19 Peritoneal Dialysis Registered Nurse Relationship Specialty Start Date End Date Bella Mead MD [address] [facility] [place] [address] PCP - General Family Medicine 01/15/19 Peritoneal Dialysis Registered Nurse Relationship Specialty Start Date End Date Bella Mead MD [address] [facility] [place] [address] PCP - General Family Medicine 01/15/19 Peritoneal Dialysis Registered Nurse Relationship Specialty Start Date End Date Bella Mead MD [address] [facility] [place] [address] PCP - General Family Medicine 01/15/19 Peritoneal Dialysis Registered Nurse Relationship Specialty Start Date End Date Bella Mead MD [address] [facility] [place] [address] PCP - General Family Medicine 01/15/19 Peritoneal Dialysis Registered Nurse Relationship Specialty Start Date End Date Bella Mead MD [address] [facility] [place] [address] PCP - General Family Medicine 01/15/19 Peritoneal Dialysis Registered Nurse Relationship Specialty Start Date End Date Bella Mead MD [address] [facility] [place] [address] PCP - General Family Medicine 01/15/19 Peritoneal Dialysis Registered Nurse Relationship Specialty Start Date End Date Bella Mead MD [address] [facility] [place] [address] PCP - General Family Medicine 01/15/19 FOR [...] BE BASED ON THE PRIMARY CLINICAL RECORDS. [facility] [employer] [facility]. provides no warranty or guarantee of the accuracy or completeness of information in this document.
--- NOTE | 2023-05-05 19:15 | PCM.CONS.C ---
Assessment & Plan Assessment/Plan (1) Exertional angina: PLAN: He does have evidence of exertional angina. At this time his cardiac enzymes are normal and I would recommend that we pursue left heart catheterization. The risk benefits alternatives have been explained to him he understands and agrees to proceed. My understanding is that he had a recent echocardiogram. We will request these records. (2) CAD (coronary artery disease): PLAN: He does have coronary artery disease as noted above. He is status post coronary bypass surgery. Unfortunately we do not have indication with the bypass surgery vessels are. Will try and obtain this by a.m. (3) Hypertension: PLAN: He has a history of hypertension his blood pressure is under good control at this time we will continue current medication with the beta-arabella and the losartan. (4) Hyperlipidemia: PLAN: He does have a history of hyperlipidemia and will continue with high intensity statin. (5) Afib: PLAN: He does have a history of paroxysmal atrial fibrillation. His own history. He had been on Eliquis. This will be temporarily held until his procedure is undertaken. Thank you for allowing me to participate in the care of your patient. Please don't hesitate to call if any issues arise. HPI Consult Data Date of Consult: 05/06/23 HPI Narrative HPI Narrative: LEONOR COYLE, is a 77 M who presents to the emergency room with complaints of chest discomfort described as a heaviness occurring during exercise most recently during his using the elliptical. He says that this radiated to the left side of his chest. It went away with rest. He presented to the emergency room was evaluated cardiac enzymes were normal and EKG did not demonstrate any acute changes. His past medical history is significant for coronary bypass surgery 3 to 4 years ago at the [facility] system. He also says that he was recently diagnosed with atrial fibrillation and was placed on Eliquis. He follows up with the physicians at the [facility] and was scheduled to have a family physician appointment on Tuesday as well as a outbound sales specialist appointment in a few weeks. He prefers to stay here for disc current visit. He is currently pain-free and has been compliant with his medications. He denies any neck arm or jaw discomfort otherwise. [facility] Medical History (Updated 05/05/23 @ 19:[address] Archie Sanders MD) Acne rosacea Atherosclerotic heart disease of [place] coronary artery without angina pectoris BPH (benign prostatic hyperplasia) Bradycardia Former smoker, stopped smoking in distant past Hyperlipidemia Hypertension Kidney stones HARLEY on CPAP Home Medications aspirin 81 mg tablet,delayed release 162 mg PO DAILY@0800 [facility] 01/22/14 [History Last Taken 05/31/19] acetaminophen 500 mg tablet 500 - 1,000 mg PO Q6H PRN PRN Pain Or Fever 07/05/19 [History Last Taken Unknown] tamsulosin 0.4 mg capsule 0.4 mg PO BID prostate 07/05/19 [History Last Taken Unknown] doxycycline hyclate 20 mg tablet 20 mg PO BID 09/17/21 [History Last Taken Unknown] losartan 50 mg tablet 50 mg PO DAILY 09/17/21 [History Last Taken Unknown] oxycodone 5 mg tablet 5 mg PO Q6H PRN pain 3 days #12 tabs 06/15/22 [Rx Last Taken Unknown] apixaban 5 mg tablet (Eliquis) 5 mg PO BID #60 tabs 04/23/23 [Rx Last Taken Unknown] coQ10 (ubiquinol) 100 mg capsule (CoQmax Ubiquinol) 100 mg PO DAILY 05/05/23 [History Last Taken Unknown] docusate sodium 100 mg capsule (Col-Rite) 100 mg PO DAILY 05/05/23 [History Last Taken Unknown] glucosamine HCl 1,500 mg tablet 3,000 mg PO DAILY 05/05/23 [History Last Taken Unknown] ivermectin 1 %-metronidazole 1 %-niacinamide 4 % topical gel (Aveidaoxia) 1 ea topical DAILY 05/05/23 [History Last Taken Unknown] magnesium 200 mg tablet 400 mg PO DAILY 05/05/23 [History Last Taken Unknown] metoprolol tartrate 50 mg tablet (Lopressor) 50 mg PO BID 05/05/23 [History Last Taken Unknown] rosuvastatin 40 mg tablet (Crestor) 40 mg PO QHS 05/05/23 [History Last Taken Unknown] sertraline 50 mg tablet 50 mg PO DAILY 05/05/23 [History Last Taken Unknown] Allergy/AdvReac Type Severity Reaction Status Date / Time No Known Allergies Allergy Verified 05/05/23 10:33 Family History Father Hypertension Mother Cancer Kidney stones Surgical History H/O hernia repair H/O lithotripsy Hx of tonsillectomy S/P triple vessel bypass Social History household members: spouse Smoking Status: Former smoker how long ago did patient quit smoking: Quit in the 1970s. alcohol intake: current alcohol intake frequency: holidays/special occasions only substance use type: does not use ROS Constitutional Constitutional: Denies fever(s) or weight loss Eyes Eyes: Reports systems reviewed and no addt'l complaints, except as documented ENT HEENT: Reports systems reviewed and no addt'l complaints, except as documented Cardiovascular Cardiovascular: Reports chest pain at rest and chest pain with activity; Denies dyspnea at rest, dyspnea on exertion, edema, palpitations or paroxysmal nocturnal dyspnea Respiratory/Chest Respiratory/Chest: Denies dyspnea on exertion, productive cough, shortness of breath at rest or shortness of breath with exertion Gastrointestinal Gastrointestinal: Denies change in bowel habits, nausea, vomiting or weight changes Genitourinary Genitourinary: Denies difficulty urinating Musculoskeletal Musculoskeletal: Denies joint stiffness or muscle weakness Integumentary Integumentary: Denies lesions Neurologic Neurologic: Denies dizziness or syncope Psychiatric Psychiatric: Denies anxiety Endocrine Endocrinology: Denies excessive sweating or fatigue Hematologic/Lymphatic Hematologic/Lymphatic: Denies anemia Allergic/Immunologic Allergic/Immunologic: Denies seasonal rhinorrhea Physical Exam Const alert, oriented x3 and no apparent distress General Appearance: cooperative HEENT hearing grossly normal bilaterally Head and Scalp: atraumatic Eyes EOMs intact bilaterally Neck General: normal visual inspection Chest inspection of chest normal and palpation of chest normal Resp normal respiratory effort Auscultation: clear to auscultation bilaterally Cardio regular rate, regular rhythm, S1 normal heart sound and S2 normal heart sound Jugular Venous Distention: JVD GI normal to inspection, nondistended, normoactive bowel sounds Extremity normal capillary refill and no pedal edema Peripheral Pulses: Yes pulses 2+ throughout and femoral pulses present Skin no rashes or lesions noted Neuro oriented x3 and CN's II-XII intact bilaterally Psych Appearance: grossly normal and appropriate Risk Stratification Risk Stratification Applicable: Yes Age >/= 65: Yes >/= 3 CAD Risk Factors (HTN, HLD, DM, family hx of CAD, or current smoker): Yes Aspirin Use in the Past 7 Days: Yes Severe Angina (>/= episodes in 24 hours): Yes EKG ST Changes >/= 0.5mm: No Positive Cardiac Marker: No RIAN Risk Stratification Score: 4 RIAN % Risk: 20% Risk Objective Data Vital Signs: Vital Signs Temp Pulse Resp BP Pulse Ox O2 Del Method 96.8 F L 59 L 16 148/82 H 97 Room Air 05/05/23 10:34 05/05/23 19:00 05/05/23 19:00 05/05/23 19:00 05/05/23 19:00 05/05/23 19:00 Oxygen Delivery Method Room Air Weight: 153 lb 9.6 oz Body Mass Index (BMI) 24.0 Lab / Micro Data 05/06/23 05:20 05/06/23 05:20 Labs: Laboratory Results - last 24 hr 05/05/23 11:15: WBC 6.1, RBC 5.32, Hgb 16.0, Hct 50.3, MCV 94.5 H, MCH 30.1, MCHC 31.8 L, RDW Std Deviation 40.8, RDW Coeff of [place] 11.9, Plt Count 349, MPV 9.0, Immature Gran % (Auto) 0.700, Neut % (Auto) 67.0, Lymph % (Auto) 16.0 L, [place] % (Auto) 13.5 H, Eos % (Auto) 1.8, Baso % (Auto) 1.0, Absolute Neuts (auto) 4.1, Absolute Lymphs (auto) 0.98, Nucleated RBC % 0, Sodium 140, Potassium 4.5, Chloride 107, Carbon Dioxide 30.0, Anion Gap 3 L, BUN 18, Creatinine 0.95, Estim Creat Clear Calc 61.85, Est GFR (MDRD) Af Amer 99, Est GFR (MDRD) Non-Af 82, BUN/Creatinine Ratio 19.0, Glucose 100, Calcium 9.5, Troponin I High Sens 8 05/05/23 13:30: Magnesium 2.4, Troponin I High Sens 9 Cardiology Labs/Tests 05/05/23 11:15: WBC 6.1, RBC 5.32, Hgb 16.0, Hct 50.3, MCV 94.5 H, MCH 30.1, MCHC 31.8 L, Plt Count 349, MPV 9.0, Immature Gran % (Auto) 0.700, Neut % (Auto) 67.0, Lymph % (Auto) 16.0 L, [place] % (Auto) 13.5 H, Eos % (Auto) 1.8, Baso % (Auto) 1.0, Absolute Neuts (auto) 4.1, Nucleated RBC % 0, Sodium 140, Potassium 4.5, Chloride 107, Carbon Dioxide 30.0, Anion Gap 3 L, BUN 18, Creatinine 0.95, Est GFR (MDRD) Af Amer 99, Est GFR (MDRD) Non-Af 82, BUN/Creatinine Ratio 19.0, Glucose 100, Calcium 9.5 05/05/23 13:30: Magnesium 2.4 Rhythm: EKG: ECHO: Stress Test: Cardiac Cath: PCI: CT Surgery: Holter monitor: EPS: PPM: CXR: Chest CT Scan: Radiography Diagnostic Testing: Radiology Impression Chest X-Ray 05/05/23 11:06 IMPRESSION: Hyperinflation. The lungs are clear. Electronically Signed: Mo Mares MD at 12:07 EST ,
[2023-05-05] MEDS: Atorvastatin Calcium 80 MG Tablet PO (22:31)
[2023-05-05] MEDS: Tamsulosin HCl 0.4 MG Capsule 0.400000000000000022 MG PO (22:31)
[2023-05-05] MEDS: Metoprolol Tartrate 50 MG Tablet PO (22:31)
[2023-05-05] MEDS: 0.9% Normal Saline (1000mL) 1,000 ML 100 ML IV (22:37)
[2023-05-05 22:56] LABS: Troponin-I HS 9 pg/mL (3.0-78.0)
[2023-05-05] MEDS: CLARIFY ORDER 1 EACH NOTE (23:23)
[2023-05-06] VITALS (12 sets, daily range): BP systolic 112–144; BP diastolic 68–96; PULSE 49–69; RESP 14–18; TEMP 36.2–36.6; O2SAT 96–99; BMI 23.2
[2023-05-06 06:11] LABS: Absolute Neutrophil Count 4.5 X10^3/uL (2.0-7.7); Basophil# 0.05 X10^3/uL; Basophil% 0.7 % (0-1); Eosinophil# 0.17 X10^3/uL; Eosinophils% 2.5 % (0-5); Hematocrit 46.1 % (40-54); Hemoglobin 14.7 g/dL (13.0-16.5); Lymphocyte % 16.3 % (19-41); Mean Corp Hgb Conc 31.9 g/dL (32-36); Mean Corpuscular Hgb 30.1 pg (27.0-32.0); Mean Corpuscular Volume 94.3 fL (80-94); Mean Platelet Vol. 9.2 fl (6.2-12.0); Monocyte# 0.91 X10^3/uL; Monocyte% 13.5 % (0-10); NRBC Flagged by Analyzer 0 % (0-5); Neutrophil # 4.46 X10^3/uL (2.7-7.7); Neutrophil % 66.4 % (47-70); Platelet Count 338 K/mm3 (150-450); RBC Distribution Width SD 41.1 fl (35.1-43.9); Red Blood Count 4.89 M/mm3 (4.6-6.2); White Blood Count 6.7 K/mm3 (4.4-11.0)
[2023-05-06 06:51] LABS: ALB/GLOB Ratio 0.9 RATIO (0.9-2.4); AST(SGOT) 23 U/L (15-37); Alanine Aminotransfer ALT/SGPT 35 U/L (16-61); Albumin, Serum 3.1 g/dL (3.2-5.0); Alkaline Phosphatase 45 U/L (45-117); Anion Gap 4 (5-15); BUN 20 mg/dL (7-18); BUN/Creat Ratio 25.5 RATIO (10-20); Calcium,Total 8.6 mg/dL (8.5-10.1); Chloride 111 mmol/L (98-107); Cholesterol 101 mg/dL (200); Creatinine, Serum 0.78 mg/dL (0.70-1.30); EST Glomerular Filtration Rate 102 mL/min (>60); Est Glom Filt Rate - Afr Amer 123 mL/min (>60); Estimated Creatinine Clearance 73.44 ml/min; Globulin 3.3 g/dL (2.2-4.2); Glucose 104 mg/dL (74-106); High Density Lipoprotein 48 mg/dL; Potassium 4.3 mmol/L (3.5-5.1); Protein, Total 6.4 g/dL (6.4-8.2); Sodium Level 142 mmol/L (136-145); Triglycerides 66 mg/dL; Very Low Density Lipoprotein 13 mg/dL (5-40)
--- NOTE | 2023-05-06 09:37 | PN.HOSP_ITS ---
Reason for Visit Reason for Visit: Diagnoses Other forms of angina pectoris (05/05/23) Subjective Subjective Patient is a 77-year-old gentleman with past medical history seen for coronary artery disease with previous CABG who presented with chest pain. An assessment of unstable angina made admitted to monitored bed with consultation placed to c ardiology Objective Data Objective Data Vital Signs: Vital Signs Temp Pulse Resp BP Pulse Ox O2 Del Method 97.8 F 49 L 16 144/77 H 99 Room Air 05/06/23 07:40 05/06/23 07:40 05/06/23 07:40 05/06/23 07:40 05/06/23 07:40 05/06/23 07:40 Oxygen Delivery Method Room Air Weight: 67.3 kg Body Mass Index (BMI) 23.2 Intake & Output: Intake and Output for Last 24 Hours 05/04/23 05/05/23 05/06/23 23:59 23:59 23:59 Intake Total 1240 / 1240 Balance 1240 / 1240 Lab / Micro Data 05/06/23 05:20 05/06/23 05:20 Labs: Laboratory Results - last 24 hr 05/05/23 11:15: WBC 6.1, RBC 5.32, Hgb 16.0, Hct 50.3, MCV 94.5 H, MCH 30.1, MCHC 31.8 L, RDW Std Deviation 40.8, RDW Coeff of [place] 11.9, Plt Count 349, MPV 9.0, Immature Gran % (Auto) 0.700, Neut % (Auto) 67.0, Lymph % (Auto) 16.0 L, [place] % (Auto) 13.5 H, Eos % (Auto) 1.8, Baso % (Auto) 1.0, Absolute Neuts (auto) 4.1, Absolute Lymphs (auto) 0.98, Nucleated RBC % 0, Sodium 140, Potassium 4.5, Chloride 107, Carbon Dioxide 30.0, Anion Gap 3 L, BUN 18, Creatinine 0.95, Estim Creat Clear Calc 61.85, Est GFR (MDRD) Af Amer 99, Est GFR (MDRD) Non-Af 82, BUN/Creatinine Ratio 19.0, Glucose 100, Calcium 9.5, Troponin I High Sens 8 05/05/23 13:30: Magnesium 2.4, Troponin I High Sens 9 05/05/23 21:35: Troponin I High Sens 9 05/06/23 05:20: WBC 6.7, RBC 4.89, Hgb 14.7, Hct 46.1, MCV 94.3 H, MCH 30.1, MCHC 31.9 L, RDW Std Deviation 41.1, RDW Coeff of [place] 12.0, Plt Count 338, MPV 9.2, Immature Gran % (Auto) 0.600, Neut % (Auto) 66.4, Lymph % (Auto) 16.3 L, [place] % (Auto) 13.5 H, Eos % (Auto) 2.5, Baso % (Auto) 0.7, Absolute Neuts (auto) 4.5, Absolute Lymphs (auto) 1.10, Nucleated RBC % 0, Sodium 142, Potassium 4.3, Chloride 111 H, Carbon Dioxide 27.0, Anion Gap 4 L, BUN 20 H, Creatinine 0.78, Estim Creat Clear Calc 73.44, Est GFR (MDRD) Af Amer 123, Est GFR (MDRD) Non-Af 102, BUN/Creatinine Ratio 25.5 H, Glucose 104, Calcium 8.6, Total Bilirubin 0.30, AST 23, ALT 35, Alkaline Phosphatase 45, Total Protein 6.4, Albumin 3.1 L, Globulin 3.3, Albumin/Globulin Ratio 0.9, Triglycerides 66, Cholesterol 101, LDL Cholesterol 40, VLDL Cholesterol 13, HDL Cholesterol 48 Radiography Diagnostic Testing: Radiology Impression Chest X-Ray 05/05/23 11:06 IMPRESSION: Hyperinflation. The lungs are clear. Electronically Signed: Mo Mares MD at 12:07 EST , Physical Exam Narrative GENERAL: cooperative HEENT: Atraumatic; normocephalic EYES; Anicteric, Normal Conjunctiva NECK; supple, normal thyroid, RESPIRATORY: Diminished to auscultation CARDIOVASCULAR: Regular S1 S2, GI: soft, normoactive bowel sounds, : No Renal angle tenderness; EXTREMITIES: No edema, no clubbing, MUSCULOSKELETAL: no muscle wasting NEURO: Awake; no lateralizing signs. SKIN: No Rash PSYCH; Flat affect Assessment & Plan Assessment/Plan (1) Exertional angina: PLAN: Plan Patient is a 77-year-old gentleman with past medical history seen for coronary artery disease with previous CABG who presented with chest pain. An assessment of unstable angina made admitted to monitored bed with consultation placed to cardiology . Unstable angina ? In a patient with known significant coronary artery disease admitted to monitored bed treatment initiated per protocol consultation placed cardiology plans for patient to undergo diagnostic cardiac cath with intervention if warranted 2. Coronary artery disease ? With previous CABG patient is on guideline directed medical therapy 3. Paroxysmal atrial fibrillation ? Patient is on rate controlling agent with metoprolol on apixaban for systemic anticoagulation being held in anticipation of patient left heart cath 4. Rosacea ? Patient is on doxycycline plan is to hold during patient hospital stay 5. Hypertension - Blood pressure controlled, home medications continued with dose adjustment as needed 6. Dyslipidemia ? Patient is on rosuvastatin did contain 7. BPH with lower urinary obstructive symptoms - Patient treated with tamsulosin 8. GERD ? On PPI 9. Obstructive sleep apnea ? Patient is on CPAP at night 10. Depression with anxiety ? Patient is on sertraline 11. DVT prophylaxis ? Patient was on systemic anticoagulation with apixaban Charges/Coding Visit Charges Inpatient E&M: 16007 Subs Hosp L3
--- NOTE | 2023-05-06 10:09 | CASEMGMT ---
Insurance review for hospitals In-network with?[employer] M[employer] insurance if transfer is recommended is as follows:?[facility], [place], [facility], [facility], [facility], [facility] ([facility]), [facility], [facility], and . Asmita Sanabria, Discharge Planning Asst.
[2023-05-06] MEDS: Metoprolol Tartrate 50 MG Tablet PO (10:47)
[2023-05-06] MEDS: Tamsulosin HCl 0.4 MG Capsule 0.400000000000000022 MG PO (10:47)
[2023-05-06] MEDS: Docusate Sodium 100 MG Capsule PO (10:47)
[2023-05-06] MEDS: Aspirin E.C. 81 MG Tablet 162 MG PO (10:47)
[2023-05-06] MEDS: Losartan Potassium 50 MG Tablet PO (10:47)
[2023-05-06] MEDS: Sertraline 50 MG Tablet PO (10:48)
[2023-05-06] MEDS: Magnesium Chloride 64 MG Delay Rel.Tablet 128 MG PO (10:48)
[2023-05-06] MEDS: 0.9% Normal Saline (1000mL) 1,000 ML 15 ML IV (10:50)
--- NOTE | 2023-05-06 12:43 | NURSING ---
Report called to [place] in Oncology Specialist. 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
--- NOTE | 2023-05-06 14:20 | PN.CARD_ITS ---
Subjective Subjective Patient seen and evaluated. Underwent cardiac catheter patient today Objective Data Vital Signs: Vital Signs Temp Pulse Resp BP Pulse Ox O2 Del Method 97.2 F L 57 L 18 141/86 H 99 Room Air 05/06/23 10:45 05/06/23 10:47 05/06/23 10:45 05/06/23 10:45 05/06/23 10:45 05/06/23 10:45 Oxygen Delivery Method Room Air Weight: 148 lb 5.938 oz Body Mass Index (BMI) 23.2 Intake & Output: Intake and Output for Last 24 Hours 05/04/23 05/05/23 05/06/23 23:59 23:59 23:59 Intake Total 1300 / 1300 Balance 1300 / 1300 Lab / Micro Data 05/06/23 05:20 05/06/23 05:20 Labs: Laboratory Results - last 24 hr 05/05/23 13:30: Magnesium 2.4 05/05/23 21:35: Troponin I High Sens 9 05/06/23 05:20: WBC 6.7, RBC 4.89, Hgb 14.7, Hct 46.1, MCV 94.3 H, MCH 30.1, MCHC 31.9 L, RDW Std Deviation 41.1, RDW Coeff of [place] 12.0, Plt Count 338, MPV 9.2, Immature Gran % (Auto) 0.600, Neut % (Auto) 66.4, Lymph % (Auto) 16.3 L, [place] % (Auto) 13.5 H, Eos % (Auto) 2.5, Baso % (Auto) 0.7, Absolute Neuts (auto) 4.5, Absolute Lymphs (auto) 1.10, Nucleated RBC % 0, Sodium 142, Potassium 4.3, Chloride 111 H, Carbon Dioxide 27.0, Anion Gap 4 L, BUN 20 H, Creatinine 0.78, Estim Creat Clear Calc 73.44, Est GFR (MDRD) Af Amer 123, Est GFR (MDRD) Non-Af 102, BUN/Creatinine Ratio 25.5 H, Glucose 104, Calcium 8.6, Total Bilirubin 0.30, AST 23, ALT 35, Alkaline Phosphatase 45, Total Protein 6.4, Albumin 3.1 L, Globulin 3.3, Albumin/Globulin Ratio 0.9, Triglycerides 66, Cholesterol 101, LDL Cholesterol 40, VLDL Cholesterol 13, HDL Cholesterol 48 Cardiology Labs/Tests 05/05/23 13:30: Magnesium 2.4 05/06/23 05:20: WBC 6.7, RBC 4.89, Hgb 14.7, Hct 46.1, MCV 94.3 H, MCH 30.1, MCHC 31.9 L, Plt Count 338, MPV 9.2, Immature Gran % (Auto) 0.600, Neut % (Auto) 66.4, Lymph % (Auto) 16.3 L, [place] % (Auto) 13.5 H, Eos % (Auto) 2.5, Baso % (Auto) 0.7, Absolute Neuts (auto) 4.5, Nucleated RBC % 0, Sodium 142, Potassium 4.3, Chloride 111 H, Carbon Dioxide 27.0, Anion Gap 4 L, BUN 20 H, Creatinine 0.78, Est GFR (MDRD) Af Amer 123, Est GFR (MDRD) Non-Af 102, BUN/Creatinine Ratio 25.5 H, Glucose 104, Calcium 8.6, Total Bilirubin 0.30, Triglycerides 66, Cholesterol 101, LDL Cholesterol 40, VLDL Cholesterol 13, HDL Cholesterol 48 Rhythm: EKG: ECHO: Stress Test: Cardiac Cath: PCI: CT Surgery: Holter monitor: EPS: PPM: CXR: Chest CT Scan: Physical Exam Const alert, oriented x3 and no apparent distress General Appearance: cooperative HEENT hearing grossly normal bilaterally Head and Scalp: atraumatic Eyes EOMs intact bilaterally Neck General: normal visual inspection Chest inspection of chest normal and palpation of chest normal Resp normal respiratory effort Auscultation: clear to auscultation bilaterally Cardio regular rate, regular rhythm, S1 normal heart sound and S2 normal heart sound Jugular Venous Distention: JVD GI normal to inspection, nondistended, normoactive bowel sounds Extremity normal capillary refill and no pedal edema Peripheral Pulses: Yes pulses 2+ throughout and femoral pulses present Skin no rashes or lesions noted Neuro oriented x3 and CN's II-XII intact bilaterally Psych Appearance: grossly normal and appropriate Assessment & Plan Assessment/Plan (1) Exertional angina: PLAN: He does have evidence of exertional angina. His cardiac catheterization demonstrated normal left main coronary artery. Left anterior descending artery which is totally occluded. Left circumflex artery which is totally occluded. Right coronary artery which is occluded with normal collaterals. The saphenous vein graft to obtuse marginal branch is patent and feeds collaterals to the distal right coronary artery and the MOHR to the LAD is patent. His ejection fraction is preserved. I would recommend medical therapy. (2) CAD (coronary artery disease): PLAN: He does have coronary artery disease as noted above. He is status post coronary bypass surgery. See above results. (3) Hypertension: PLAN: He has a history of hypertension his blood pressure is under good control at this time we will continue current medication with the beta-arabella and the losartan. (4) Hyperlipidemia: PLAN: He does have a history of hyperlipidemia and will continue with high intensity statin. (5) Afib: PLAN: He does have a history of paroxysmal atrial fibrillation. His own his tory. He had been on Eliquis. This will be temporarily held until his procedure is undertaken. Thank you for allowing me to participate in the care of your patient. Please don't hesitate to call if any issues arise.
--- NOTE | 2023-05-06 14:48 | DS.PCM_ITS ---
Providers Date of Admission: 05/05/23 Date of Discharge: 05/06/23 Primary Care Physician: Dr. Marcel Santos MD Consultations 05/05/23 21:12 Consult: Cardiology Routine Consulting Provider: Archie Sanders Reason for Consult: Chest Pain EMERGENT Consult: No MD Notified: Yes Date Notified: 05/05/23 Time Notified: 16:35 Method of Notification: ED Physician Initiated Reason For Visit: CHEST PAIN Diagnosis Discharge Diagnosis (1) Exertional angina: Status: Acute Code(s): I20.89 - Other forms of angina pectoris (2) CAD (coronary artery disease): Status: Chronic Code(s): I25.10 - Atherosclerotic heart disease of [place] coronary artery without angina pectoris (3) Hypertension: Status: Chronic Code(s): I10 - Essential (primary) hypertension (4) Hyperlipidemia: Status: Acute Code(s): E78.5 - Hyperlipidemia, unspecified (5) Afib: Status: Acute Code(s): I48.91 - Unspecified atrial fibrillation Plan Patient is a 77-year-old gentleman with past medical history seen for coronary artery disease with previous CABG who presented with chest pain. An assessment of unstable angina made admitted to monitored bed with consultation placed to cardiology 1.. Unstable angina ? In a patient with known significant coronary artery disease admitted to monitored bed treatment initiated per protocol consultation placed cardiology plans for patient to undergo diagnostic cardiac cath with intervention if warranted - cardiac catheterization demonstrated normal left main coronary artery. Left anterior descending artery which is totally occluded. Left circumflex artery which is totally occluded. Right coronary artery which is occluded with normal collaterals. The saphenous vein graft to obtuse marginal branch is patent and feeds collaterals to the distal right coronary artery and the MOHR to the LAD is patent. His ejection fraction is preserved. Case was discussed with Dr. Sanders with cardiology recommended optimization of medical therapy with addition of Ranexa to patient's treatment regimen 2. Coronary artery disease ? With previous CABG patient is on guideline directed medical therapy 3. Paroxysmal atrial fibrillation ? Patient is on rate controlling agent with metoprolol on apixaban for systemic anticoagulation being held in anticipation of patient left heart cath 4. Rosacea ? Patient is on doxycycline plan is to hold during patient hospital stay 5. Hypertension - Blood pressure controlled, home medications continued with dose adjustment as needed 6. Dyslipidemia ? Patient is on rosuvastatin did contain 7. BPH with lower urinary obstructive symptoms - Patient treated with tamsulosin 8. GERD ? On PPI 9. Obstructive sleep apnea ? Patient is on CPAP at night 10. Depression with anxiety ? Patient is on sertraline 11. DVT prophylaxis ? Patient was on systemic anticoagulation with apixaban Medications at Discharge Home Medications aspirin 81 mg tablet,delayed release 162 mg PO DAILY@0800 [facility] 01/22/14 acetaminophen 500 mg tablet 500 - 1,000 mg PO Q6H PRN PRN Pain Or Fever 07/05/19 tamsulosin 0.4 mg capsule 0.4 mg PO BID prostate 07/05/19 doxycycline hyclate 20 mg tablet 20 mg PO BID 09/17/21 losartan 50 mg tablet 50 mg PO DAILY 09/17/21 oxycodone 5 mg tablet 5 mg PO Q6H PRN pain 3 days #12 tabs 06/15/22 apixaban 5 mg tablet (Eliquis) 5 mg PO BID #60 tabs 04/23/23 coQ10 (ubiquinol) 100 mg capsule (CoQmax Ubiquinol) 100 mg PO DAILY 05/05/23 docusate sodium 100 mg capsule (Col-Rite) 100 mg PO DAILY 05/05/23 glucosamine HCl 1,500 mg tablet 3,000 mg PO DAILY 05/05/23 ivermectin 1 %-metronidazole 1 %-niacinamide 4 % topical gel (Aveidaoxia) 1 ea topical DAILY 05/05/23 magnesium 200 mg tablet 400 mg PO DAILY 05/05/23 metoprolol tartrate 50 mg tablet (Lopressor) 50 mg PO BID 05/05/23 rosuvastatin 40 mg tablet (Crestor) 40 mg PO QHS 05/05/23 sertraline 50 mg tablet 50 mg PO DAILY 05/05/23 ranolazine 500 mg tablet,extended release,12 hr 500 mg PO BID 90 days #180 tabs 05/06/23 Hospital Course Summary of Care Provided Minutes Spent on Discharge: 35 Physical Exam Narrative GENERAL: cooperative HEENT: Atraumatic; normocephalic EYES; Anicteric, Normal Conjunctiva NECK; supple, normal thyroid, RESPIRATORY: Diminished to auscultation CARDIOVASCULAR: Regular S1 S2, GI: soft, normoactive bowel sounds, : No Renal angle tenderness; EXTREMITIES: No edema, no clubbing, MUSCULOSKELETAL: no muscle wasting NEURO: Awake; no lateralizing signs. SKIN: No Rash PSYCH; Flat affect Weight / BMI Weight Weight: 67.3 kg Body Mass Index (BMI) 23.2 ABG / Lab / Microbiology Data 05/06/23 05:20 05/06/23 05:20 Laboratory: Laboratory Results - last 24 hr 05/05/23 13:30: Magnesium 2.4 05/05/23 21:35: Troponin I High Sens 9 05/06/23 05:20: WBC 6.7, RBC 4.89, Hgb 14.7, Hct 46.1, MCV 94.3 H, MCH 30.1, MCHC 31.9 L, RDW Std Deviation 41.1, RDW Coeff of [place] 12.0, Plt Count 338, MPV 9.2, Immature Gran % (Auto) 0.600, Neut % (Auto) 66.4, Lymph % (Auto) 16.3 L, [place] % (Auto) 13.5 H, Eos % (Auto) 2.5, Baso % (Auto) 0.7, Absolute Neuts (auto) 4.5, Absolute Lymphs (auto) 1.10, Nucleated RBC % 0, Sodium 142, Potassium 4.3, Chloride 111 H, Carbon Dioxide 27.0, Anion Gap 4 L, BUN 20 H, Creatinine 0.78, Estim Creat Clear Calc 73.44, Est GFR (MDRD) Af Amer 123, Est GFR (MDRD) Non-Af 102, BUN/Creatinine Ratio 25.5 H, Glucose 104, Calcium 8.6, Total Bilirubin 0.30, AST 23, ALT 35, Alkaline Phosphatase 45, Total Protein 6.4, Albumin 3.1 L, Globulin 3.3, Albumin/Globulin Ratio 0.9, Triglycerides 66, Cholesterol 101, LDL Cholesterol 40, VLDL Cholesterol 13, HDL Cholesterol 48 D/C Instructions Discharge Diet: Low fat / Low cholesterol Discharge Activity: Return to Normal Activity Call your doctor if you observe: Fever of 101 or Higher, Shortness of breath, Fainting spells and Chest pain Meaningful Use Info Meaningful Use Diagnoses (Choose all that apply): None applicable Discharge Plan Admission Admit Date/Time: 05/05/23 15:12 Attending Provider: [facility] Primary Care Provider: Marcel Santos Consulting Providers: Archie Sanders; Sammie Clarke Discharge Orders/Prescriptions Prescriptions: New ranolazine 500 mg Tablet Extended Release 12 Hr 500 mg PO BID 90 Days Qty: 180 0RF Continued aspirin 81 MG tablet 162 mg PO DAILY@0800 acetaminophen 500 MG tablet 500 - 1,000 mg PO Q6H PRN PRN (Reason: Pain Or Fever) tamsulosin 0.4 MG capsule 0.4 mg PO BID losartan 50 mg tablet 50 mg PO DAILY Patient Comments: Take 1 tablet by mouth once daily. doxycycline hyclate 20 mg tablet 20 mg PO BID oxycodone 5 mg tablet 5 mg PO Q6H PRN (Reason: pain) 3 Days Qty: 12 0RF Eliquis 5 mg tablet 5 mg PO BID Qty: 60 0RF metoprolol tartrate [Lopressor] 50 mg tablet 50 mg PO BID Aveidaoxia 1-1-4 % gel 1 ea topical DAILY rosuvastatin [Crestor] 40 mg tablet 40 mg PO QHS docusate sodium [Col-Rite] 100 mg capsule 100 mg PO DAILY sertraline 50 mg tablet 50 mg PO DAILY Patient Comments: Take 1 tablet by mouth once daily. magnesium 200 mg tablet 400 mg PO DAILY glucosamine HCl 1,500 mg tablet 3,000 mg PO DAILY Rx Instructions: administer with a meal coQ10 (ubiquinol) [CoQmax Ubiquinol] 100 mg capsule 100 mg PO DAILY Referrals / Follow Up: Marcel Santos MD [Primary Care Provider] - Within 2 Weeks Disposition Disposition (needs filled in before D/C Order can be placed): Home, Self Care Charges/Coding Visit Charges Inpatient E&M: 13629 Disch Hosp >30min
--- NOTE | 2023-05-06 15:03 | PHA.DC.MC.R ---
Pharmacy [facility] has performed discharge medication reconciliation and counseling for this patient. The patient's discharge medication list was reviewed for discrepancies and discrepancies were resolved. The patient was counseled on the following discharge medications and changes in medications for homegoing were reviewed. The Reason for Use, instructions for use, and potential side effects were reviewed for all new medications. The patient's questions regarding all of their medications were answered. 1. Ranolazine 500 mg PO BID The patient was able to verbally demonstrate an understanding of their discharge medications. Medications at Discharge Home Medications aspirin 81 mg tablet,delayed release 162 mg PO DAILY@0800 [facility] 01/22/14 acetaminophen 500 mg tablet 500 - 1,000 mg PO Q6H PRN PRN Pain Or Fever 07/05/19 tamsulosin 0.4 mg capsule 0.4 mg PO BID prostate 07/05/19 doxycycline hyclate 20 mg tablet 20 mg PO BID infection 09/17/21 losartan 50 mg tablet 50 mg PO DAILY blood pressure 09/17/21 oxycodone 5 mg tablet 5 mg PO Q6H PRN pain 3 days #12 tabs 06/15/22 apixaban 5 mg tablet (Eliquis) 5 mg PO BID blood thinner #60 tabs 04/23/23 coQ10 (ubiquinol) 100 mg capsule (CoQmax Ubiquinol) 100 mg PO DAILY supplement 05/05/23 docusate sodium 100 mg capsule (Col-Rite) 100 mg PO DAILY stool softner 05/05/23 glucosamine HCl 1,500 mg tablet 3,000 mg PO DAILY supplement 05/05/23 ivermectin 1 %-metronidazole 1 %-niacinamide 4 % topical gel (Aveidaoxia) 1 ea topical DAILY 05/05/23 magnesium 200 mg tablet 400 mg PO DAILY supplement 05/05/23 metoprolol tartrate 50 mg tablet (Lopressor) 50 mg PO BID blood pressure 05/05/23 rosuvastatin 40 mg tablet (Crestor) 40 mg PO QHS cholesterol 05/05/23 sertraline 50 mg tablet 50 mg PO DAILY mental health 05/05/23 ranolazine 500 mg tablet,extended release,12 hr 500 mg PO BID 90 days #180 tabs 05/06/23
[2023-05-06] MEDS: Ranolazine 500 MG Tablet PO (15:14)
--- NOTE | 2023-05-06 16:13 | CASEMGMT ---
TIMOTHY RITTER NOTE: Pt being discharged home. Ranexa has been e-scribed to [facility] retail pharmacy. Call to the pharmacy for wheat check. Pt's cost is $30. TIMOTHY RITTER to room. Introduced self and role. Pt states the Ranexa is affordable. He states he lives alone in a 4-story home and denies difficulty w/the stairs. He states they do have 2 stair/chair lifts, if needed. He is but his has been a long-term resident at [facility] for the past 2 years. Pt states he is independent w/ADL's, IADL's, and manages his own medications. He denies having any discharge planning needs. His son will be taking him home today. Evelia SPRAGUE RN, CM
--- NOTE | 2023-05-06 18:04 | CL.D_ITS ---
Patient Name: LEONOR COYLE Study Date: 05/06/2023 Performing: Archie Sanders MD Ht: 67 inches 170.18 cm : 1945 Wt: 148.6 lbs 67.3 kg Age: 77 Gender: male BSA: 1.78 PROCEDURE(S) PERFORMED DC04-([id number])LHC/COR/CABG CLINICAL PROFILE AND INDICATIONS Indications: Worsening Angina Heart Failure: None Stress/Imaging Stress/Image Study Performed: No CAD Presentations: Stable angina. CONCLUSIONS Patent MOHR to the LAD and saphenous vein graft to obtuse marginal branch. Collateral filling of the right coronary artery. RECOMMENDATIONS Medical therapy. Some of the chest pain could be from the thoracic branches of the MOHR. DESCRIPTION OF PROCEDURE The patient arrived to the procedure lab. The risks and benefits of the procedure as well as a full description of our services here and current unavailability of surgical backup were fully explained to the patient and/or their significant other prior to the catheterization. The Timeout was completed, verifying the correct patient and procedure. The patient's procedural site was prepped and draped in the usual fashion. Local anesthetic was given subcutaneously to left radial region with Lidocaine 2%. Using a modified Seldinger technique, arterial access was obtained via the left radial artery, a 6Fr sheath was inserted. Left internal mammary artery graft to the LAD selective angiography was performed in multiple views using a 5 Fr. IM catheter. Left Coronary Artery selective angiography was performed in multiple views using a 5 Fr. JL4 catheter. Right Coronary Artery selective angiography was then performed in multiple views using a 5 Fr. 3DRC (Ru) catheter. Saphenous Vein graft to the OM 1 sequential to PDA selective angiography was performed in multiple views using a 5 Fr. 3DRC (Ru) catheter. Saphenous Vein graft to the OM 1 sequential graft to PDA selective angiography was performed in multiple views using a 5 Fr. AL 1 catheter. Saphenous Vein graft to the RCA selective angiography was performed in multiple views using a 5 Fr. MPA 2 catheter.The arterial sheath was pulled and a TR Band was applied for hemostasis w/ 10ml air CORONARY ANGIOGRAPHY DOMINANCE: Right Dominant LEFT HEART ASSESSMENT Left Ventricular Ejection Fraction: Not assessed Normal Left Ventricular systolic function LEFT MAIN: Mild calcification, Moderate luminal irregularities up to 50% LEFT ANTERIOR DESCENDING ARTERY: This vessel is noted to be totally occluded in the proximal to mid segment. CIRCUMFLEX ARTERY: Small first obtuse marginal branch is mild to moderately diseased. After this the left circumflex artery is totally occluded. RIGHT CORONARY ARTERY: Dominant but small right coronary artery which is totally occluded in the proximal segment with the distal segment filling via homocollaterals GRAFTS: MOHR graft to the Mid LAD This vessel is patent but there are numerous thoracic side branches of the MOHR which have not been clipped off Saphenous Vein graft to the 2nd OM This vessel is patent with the distal obtuse marginal branch filling and then the vessel retrogradely fills the distal circumflex artery and gives up a proximal collaterals to the right coronary artery as well as distal collaterals to the posterior descending artery. Saphenous Vein graft to the RPDA is totally occluded COMPLICATIONS No Complications PROCEDURE MEDICATIONS Fentanyl 50 mcg IV Versed 1 mg IV Oxygen: 2 L/min via nasal cannula Atropine 1mg/10ml 1 amp @ 05/06/2023 13:33:05 Heparin given IA 05/06/2023 13:27:08 Verapamil 2.5mg, Ntg 200mcgs, 2000 units of Heparin given IA 05/06/2023 13:27:08 IV Bolus: .9 NaCl 400ml total 05/06/2023 13:32:46 SUMMARY OF HEMODYNAMIC DATA Time AIR REST ECG 13:16:29 ECG 13:17:05 AO 66/40 (49) SA 13:32:03 AO 85/47 (58) 13:34:36 AO 108/62 (81) 13:49:15 AO 127/64 (94) 14:00:01 Signed By Archie Sanders MD On 05/06/2023 18:03:13 Archie Sanders MD
== END 2023-05-06 14:47 | disposition home or self-care (01) ==
LOC: ED 15:06 → PCU 17:32
PROVIDERS: Admitting Provider Family Medicine; Emergency Provider Emergency Medicine; PCP Family Medicine; Visit Provider Internal Medicine
DX: I25.118 Atherosclerotic heart disease of native coronary artery with other forms of angina pectoris (principal); I48.0 Paroxysmal atrial fibrillation; I10 Essential (primary) hypertension; N40.1 Benign prostatic hyperplasia with lower urinary tract symptoms; Z87.891 Personal history of nicotine dependence; Z79.82 Long term (current) use of aspirin; E78.00 Pure hypercholesterolemia, unspecified; F41.9 Anxiety disorder, unspecified; Z79.899 Other long term (current) drug therapy; G47.33 Obstructive sleep apnea (adult) (pediatric); Z79.01 Long term (current) use of anticoagulants; K21.9 Gastro-esophageal reflux disease without esophagitis; F32.A Depression, unspecified; L71.9 Rosacea, unspecified; N13.8 Other obstructive and reflux uropathy
CPT/HCPCS: 36415; 71045; 80048; 80053; 80061; 83735; 84484; 85025; 93005; 93455; 94668; 96360; 96361; 99152; 99153; 99221; 99285; C1894; J7030; Q9967; A4216; C1769; G0378

== ENCOUNTER 2023-06-02 16:29 | Emergency (ER) | payer MEDICARE, SELFPAY ==
[2019-11-08 06:42] VITALS: BMI 25.9
[2023-06-02 16:31] VITALS: BP 125/94; PULSE 88; RESP 16; TEMP 35.9; O2SAT 90; BMI 23.8
--- NOTE | 2023-06-02 16:48 | EDS_ITS ---
HPI History of Present Illness Chief Complaint: Palpitations Narrative Narrative: 77-year-old male presenting with palpitations, shortness of breath, lightheadedness. He states that he had cardiac cath by Dr. Salas for the last month and states he had some occlusions which did not require stenting. History of CABG. He is on Eliquis for history of A-fib. He is on metoprolol tartrate 50 mg p.o. twice daily initially however he was having some lightheadedness and palpitations so his primary care physician (Dr. Santos) decreased his medications to 25 mg p.o. twice daily and subsequently says he still had the same symptoms decreased to 12.5 mg p.o. twice daily which started yesterday. Patient has been on ranolazine which she states did help his chest discomfort after few days. 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 He called today but has not heard phone call back. Patient states he worked out today but thinks he might of worked out too hard. He did 30 minutes on the elliptical and ended about 40 minutes of weightlifting. He states he would typically work out almost this long but he took this time between sets he says. He denies any chest pain. He states he feels very tired. No fevers or chills. No cough. [facility] Medical History Acne rosacea Atherosclerotic heart disease of [place] coronary artery without angina pectoris BPH (benign prostatic hyperplasia) Bradycardia Former smoker, stopped smoking in distant past Hyperlipidemia Hypertension Kidney stones HARLEY on CPAP Home Medications aspirin 81 mg tablet,delayed release 162 mg PO DAILY@0800 [facility] 01/22/14 [History Last Taken 05/31/19] acetaminophen 500 mg tablet 500 - 1,000 mg PO Q6H PRN PRN Pain Or Fever 07/05/19 [History Last Taken Unknown] tamsulosin 0.4 mg capsule 0.4 mg PO BID prostate 07/05/19 [History Last Taken Unknown] doxycycline hyclate 20 mg tablet 20 mg PO BID infection 09/17/21 [History Last Taken Unknown] losartan 50 mg tablet 50 mg PO DAILY blood pressure 09/17/21 [History Last Taken Unknown] oxycodone 5 mg tablet 5 mg PO Q6H PRN pain 3 days #12 tabs 06/15/22 [Rx Last Taken Unknown] apixaban 5 mg tablet (Eliquis) 5 mg PO BID blood thinner #60 tabs 04/23/23 [Rx Last Taken Unknown] coQ10 (ubiquinol) 100 mg capsule (CoQmax Ubiquinol) 100 mg PO DAILY supplement 05/05/23 [History Last Taken Unknown] docusate sodium 100 mg capsule (Col-Rite) 100 mg PO DAILY stool softner 05/05/23 [History Last Taken Unknown] glucosamine HCl 1,500 mg tablet 3,000 mg PO DAILY supplement 05/05/23 [History Last Taken Unknown] ivermectin 1 %-metronidazole 1 %-niacinamide 4 % topical gel (Aveidaoxia) 1 ea topical DAILY 05/05/23 [History Last Taken Unknown] magnesium 200 mg tablet 400 mg PO DAILY supplement 05/05/23 [History Last Taken Unknown] metoprolol tartrate 50 mg tablet (Lopressor) 50 mg PO BID blood pressure 05/05/23 [History Last Taken Unknown] rosuvastatin 40 mg tablet (Crestor) 40 mg PO QHS cholesterol 05/05/23 [History Last Taken Unknown] sertraline 50 mg tablet 50 mg PO DAILY mental health 05/05/23 [History Last Taken Unknown] ranolazine 500 mg tablet,extended release,12 hr 500 mg PO BID 90 days #180 tabs 05/06/23 [Rx Last Taken Unknown] Allergy/AdvReac Type Severity Reaction Status Date / Time No Known Allergies Allergy Verified 06/02/23 16:30 Family History Father Hypertension Mother Cancer Kidney stones Surgical History H/O hernia repair H/O lithotripsy Hx of tonsillectomy S/P triple vessel bypass Social History household members: spouse Smoking Status: Former smoker how long ago did patient quit smoking: Quit in the 1970s. alcohol intake: current alcohol intake frequency: holidays/special occasions only substance use type: does not use ROS ROS ED ROS Narrative Lightheadedness Constitutional Constitutional ED: Denies chills, fever(s) or sweats Eyes Eyes: Denies blurry vision or change in vision ENT ENT ED: Denies ear pain or sore throat Cardiovascular Cardiovascular: Reports palpitations and racing heartbeat; Denies chest pain Respiratory/Chest Respiratory/Chest: Reports dyspnea; Denies cough or sputum Gastrointestinal Gastrointestinal: Denies abdominal pain, constipation, diarrhea, nausea or vomiting Genitourinary Genitourinary ED: Denies dysuria, hematuria or urinary frequency Musculoskeletal Musculoskeletal: Denies arthralgias, myalgias or neck pain Integumentary Denies abscess, Abrasions or rash Neurologic Neurologic: Denies headache(s), paresthesias or weakness Psychiatric Psychiatric: Denies anxiety, depression, suicidal ideation or suicidal thoughts Endocrine Endocrinology: Denies polydipsia or polyuria EXAM Physical Exam Const Vital Signs: 06/02/23 16:31 06/02/23 16:29 06/02/23 16:47 Temperature 96.7 F L Temperature Source Temporal Pulse Rate 88 Respiratory Rate 16 Respiratory Effort Normal Non-Labored Blood Pressure 125/94 H Blood Pressure Mean 104 Pulse Ox 90 Oxygen Delivery Method Room Air Room Air 06/02/23 18:29 06/02/23 19:00 Temperature Temperature Source Pulse Rate Respiratory Rate 18 18 Respiratory Effort Blood Pressure Blood Pressure Mean Pulse Ox Oxygen Delivery Method Positive well nourished General Appearance ED: NAD; Negative for pallor HEENT Reports moist mucous membranes Eyes PERRL and EOMs intact bilaterally Chest Wall inspection of chest normal Resp normal respiratory effort and clear to auscultation bilaterally Auscultation: Negative for rales, rhonchi or wheezes Cardio regular rate and regular rhythm GI normal to inspection, nondistended, normoactive bowel sounds Back/Spine no CVA tenderness Neuro oriented x3 and CN's II-XII intact bilaterally Sensorium / Orientation: alert Motor Exam: strength 5/5 throughout Psych mental status grossly normal Skin no rashes or lesions noted General Skin Exam: Negative for jaundice or pallor MDM MDM MDM Narrative Medical decision making narrative: 78-year-old male presenting with palpitations and generalized weakness. Differential includes ACS, pneumonia, A-fib, a flutter, dehydration, anemia, electrolyte abnormalities. Considered PE but patient is anticoagulated on Eliquis. CBC obtained to assess white blood cell count, hemoglobin, platelets and insulinoma limits. BMP to assess renal function, electrolytes is also within normal limits. High-sensitivity troponin is 6. EKG on my interpretation shows a normal sinus rhythm with a ventricular rate of 67 bpm without sign ischemic change. Chest x-ray my interpretation shows no acute process. Patient feeling well on examination. Repeat evaluation patient is heart rate is still in the 70s. He feels well and is well-appearing. Discussed his workup with him and I feel he stable for discharge home at this time. Impression: 1. Palpitations Lab Data Attestation: I reviewed the patient's lab results. Labs: Laboratory Results - last 24 hr 06/02/23 16:58 WBC 6.5 RBC 5.12 Hgb 15.6 Hct 47.4 MCV 92.6 MCH 30.5 MCHC 32.9 RDW Std Deviation 42.5 RDW Coeff of [place] 12.5 Plt Count 237 MPV 9.2 Immature Gran % (Auto) 0.500 Neut % (Auto) 62.9 Lymph % (Auto) 21.6 [place] % (Auto) 12.2 H Eos % (Auto) 2.0 Baso % (Auto) 0.8 Absolute Neuts (auto) 4.1 Absolute Lymphs (auto) 1.40 Nucleated RBC % 0 Sodium 139 Potassium 4.3 Chloride 106 Carbon Dioxide 27.0 Anion Gap 6 BUN 25 H Creatinine 1.00 Estim Creat Clear Calc 58.76 Est GFR (MDRD) Af Amer 93 Est GFR (MDRD) Non-Af 77 BUN/Creatinine Ratio 25.0 H Glucose 104 Calcium 9.0 Troponin I High Sens 6 B-Natriuretic Peptide 33.6 Radiography Diagnostic Testing: Clinical Impression(s) from Imaging Studies Chest X-Ray 06/02/23 16:58 IMPRESSION: No definite acute or significant abnormality seen. Electronically Signed: Eren Shaw MD at 17:11 EST , Discharge Plan Triage Chief Complaint: Palpitations ED Provider: Ezequiel Blas Dx/Rx/DC Orders Instructions: ED Palpitations Prescriptions: No Action aspirin 81 MG tablet 162 mg PO DAILY@0800 acetaminophen 500 MG tablet 500 - 1,000 mg PO Q6H PRN PRN (Reason: Pain Or Fever) tamsulosin 0.4 MG capsule 0.4 mg PO BID losartan 50 mg tablet 50 mg PO DAILY Patient Comments: Take 1 tablet by mouth once daily. doxycycline hyclate 20 mg tablet 20 mg PO BID oxycodone 5 mg tablet 5 mg PO Q6H PRN (Reason: pain) 3 Days Qty: 12 0RF Eliquis 5 mg tablet 5 mg PO BID Qty: 60 0RF metoprolol tartrate [Lopressor] 50 mg tablet 50 mg PO BID Aveidaoxia 1-1-4 % gel 1 ea topical DAILY rosuvastatin [Crestor] 40 mg tablet 40 mg PO QHS docusate sodium [Col-Rite] 100 mg capsule 100 mg PO DAILY sertraline 50 mg tablet 50 mg PO DAILY Patient Comments: Take 1 tablet by mouth once daily. magnesium 200 mg tablet 400 mg PO DAILY glucosamine HCl 1,500 mg tablet 3,000 mg PO DAILY Rx Instructions: administer with a meal coQ10 (ubiquinol) [CoQmax Ubiquinol] 100 mg capsule 100 mg PO DAILY ranolazine 500 mg Tablet Extended Release 12 Hr 500 mg PO BID 90 Days Qty: 180 0RF Primary Care Provider: Marcel Santos Referrals: Julio Cesar Mccarthy MD [Non-Staff] - As soon as possible Marcel Santos MD [Primary Care Provider] - Disposition Disposition: Home, Self Care
--- NOTE | 2023-06-02 16:58 | RAD_ITS ---
STUDY: X-RAY CHEST REASON FOR EXAM: Male, 77 years old. chest pain TECHNIQUE: Single AP portable view of the chest. COMPARISON: 05/05/2023 FINDINGS: The lungs are clear and expanded. There is no demonstrated pleural abnormality. Normal size heart. Previous CABG. Normal mediastinum and meka. Normal visualized pulmonary arteries. There is atherosclerotic tortuosity of the aortic arch and descending thoracic aorta. Normal visualized thoracic spine. Normal visualized ribs, clavicles, and shoulders. There is no demonstrated abnormality of the visualized soft tissue structures of the upper abdomen. RAD/Chest 1 View (Portable) IMPRESSION: No definite acute or significant abnormality seen. Electronically Signed: Eren Shaw MD at 17:11 EST ,
[2023-06-02 17:07] LABS: Absolute Neutrophil Count 4.1 X10^3/uL (2.0-7.7); Basophil# 0.05 X10^3/uL; Basophil% 0.8 % (0-1); Eosinophil# 0.13 X10^3/uL; Hematocrit 47.4 % (40-54); Hemoglobin 15.6 g/dL (13.0-16.5); Lymphocyte % 21.6 % (19-41); Mean Corp Hgb Conc 32.9 g/dL (32-36); Mean Corpuscular Hgb 30.5 pg (27.0-32.0); Mean Corpuscular Volume 92.6 fL (80-94); Mean Platelet Vol. 9.2 fl (6.2-12.0); Monocyte# 0.79 X10^3/uL; Monocyte% 12.2 % (0-10); NRBC Flagged by Analyzer 0 % (0-5); Neutrophil # 4.08 X10^3/uL (2.7-7.7); Neutrophil % 62.9 % (47-70); Platelet Count 237 K/mm3 (150-450); RBC Distribution Width CV 12.5 % (11.6-14.6); RBC Distribution Width SD 42.5 fl (35.1-43.9); Red Blood Count 5.12 M/mm3 (4.6-6.2); White Blood Count 6.5 K/mm3 (4.4-11.0)
[2023-06-02 17:21] LABS: BNP,B-Type NATRIURETIC PEPTIDE 33.6 pg/mL (0-100)
[2023-06-02 17:24] LABS: Anion Gap 6 (5-15); BUN 25 mg/dL (7-18); Chloride 106 mmol/L (98-107); EST Glomerular Filtration Rate 77 mL/min (>60); Est Glom Filt Rate - Afr Amer 93 mL/min (>60); Estimated Creatinine Clearance 58.76 ml/min; Glucose 104 mg/dL (74-106); Potassium 4.3 mmol/L (3.5-5.1); Sodium Level 139 mmol/L (136-145); Troponin-I HS 6 pg/mL (3.0-78.0)
[2023-06-02 18:29] VITALS: RESP 18
[2023-06-02 19:00] VITALS: RESP 18
[2023-06-02 19:44] VITALS: BP 149/90; PULSE 69; RESP 15; O2SAT 96
== END 2023-06-02 19:47 | disposition home or self-care (01) ==
PROVIDERS: Emergency Provider Student in an Organized Health Care Education/Training Program; PCP Family Medicine; Visit Provider Student in an Organized Health Care Education/Training Program
DX: R00.2 Palpitations (principal); I48.91 Unspecified atrial fibrillation; R53.1 Weakness; R06.02 Shortness of breath; Z79.01 Long term (current) use of anticoagulants; Z79.82 Long term (current) use of aspirin; Z79.899 Other long term (current) drug therapy; Z87.891 Personal history of nicotine dependence; Z95.1 Presence of aortocoronary bypass graft
CPT/HCPCS: 71045; 80048; 83880; 84484; 85025; 93005; 99284; A4216

== ENCOUNTER → 2024-01-19 | Outpatient (CLI) | payer MEDICARE, SELFPAY ==
[2019-11-08 06:42] VITALS: BMI 25.9
[2024-01-19 14:58] LABS: PSA,Total - Annual Screen 1.97 ng/mL (0.00-4.00)
== END | disposition home or self-care (01) ==
LOC: LAB 14:10
PROVIDERS: PCP Family Medicine; Referring Provider Urology; Visit Provider Urology
DX: Z12.5 Encounter for screening for malignant neoplasm of prostate (principal)
CPT/HCPCS: 36415; 84153; G0103

== ENCOUNTER 2024-03-21 20:15 | Observation (INO) | payer MEDICARE, SELFPAY ==
[2019-11-08 06:42] VITALS: BMI 25.9
[2024-03-21 20:16] VITALS: BP 165/83; PULSE 64; RESP 16; TEMP 36.8; O2SAT 97; BMI 26.2
[2024-03-21 20:43] VITALS: O2SAT 96
--- NOTE | 2024-03-21 20:43 | RAD_ITS ---
EXAM: XR CHEST, 2 VIEWS CLINICAL INDICATION: chest pain TECHNIQUE: Frontal and lateral views of the chest. COMPARISON: 06/02/2023 FINDINGS: LUNGS AND PLEURAL SPACES: Right lower lobe pulmonary opacity may be atelectasis, scarring, or pneumonia similar to the prior examination. No pneumothorax. No effusion. HEART: No significant abnormality. Cardiac silhouette not enlarged. MEDIASTINUM: Central airways and mediastinal contour are unremarkable. BONES/JOINTS: Median sternotomy. No acute fracture. SOFT TISSUES: No significant abnormality. VASCULATURE: Atherosclerosis. RAD/Chest PA and Lateral IMPRESSION: Right lower lobe pulmonary opacity may be atelectasis, scarring, or pneumonia similar to the prior examination. Electronically Signed: Daryn Gomez DO at 21:07 EST ,
[2024-03-21 20:50] LABS: Absolute Lymphocyte Count 1.49 X10^3/uL (0.83-4.51); Absolute Neutrophil Count 4.3 X10^3/uL (2.0-7.7); Basophil# 0.06 X10^3/uL; Basophil% 0.9 % (0-1); Eosinophils% 2.9 % (0-5); Hematocrit 50.6 % (40-54); Hemoglobin 17.3 g/dL (13.0-16.5); Lymphocyte # 1.49 X10^3/ul (0.83-4.51); Lymphocyte % 21.4 % (19-41); Mean Corp Hgb Conc 34.2 g/dL (32-36); Mean Corpuscular Hgb 31.6 pg (27.0-32.0); Mean Corpuscular Volume 92.3 fL (80-94); Mean Platelet Vol. 9.3 fl (6.2-12.0); Monocyte# 0.86 X10^3/uL; Monocyte% 12.4 % (0-10); NRBC Flagged by Analyzer 0 % (0-5); Neutrophil # 4.29 X10^3/uL (2.7-7.7); Neutrophil % 61.5 % (47-70); Platelet Count 274 K/mm3 (150-450); RBC Distribution Width CV 12.2 % (11.6-14.6); RBC Distribution Width SD 41.4 fl (35.1-43.9); Red Blood Count 5.48 M/mm3 (4.6-6.2)
--- NOTE | 2024-03-21 20:56 | EDS_ITS ---
HPI History of Present Illness Chief Complaint: Chest Pain Informant: patient and family Narrative Narrative: Waxing waning left-sided chest pain for 3 days. Intermittent pain into his shoulder. Exertional dyspnea. No cough. History of three-vessel CABG in 2019 followed by [facility] Dr. Parikh. He follows up every 6 months. He states he had a heart catheter a couple years ago no intervention he was placed on Ranexa. 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 He is on Eliquis for history of paroxysmal A-fib. He is on baby aspirin daily. Took his medications today. 3 days ago he is able to do the elliptical for 15 minutes no symptoms today he states with the elliptical he went 5 minutes before having to stop. Symptoms are worse with activities. Remote tobacco stopped in 1976. He reports similar symptoms with his NH in the past. Prior Similar Symptoms: Yes, With Prior NH and With Prior Angina CVD Risk Factors: Positive for Hypertension and Hypercholesterolemia; Negative for Diabetes or Smoking [facility] Medical History Bradycardia BPH (benign prostatic hyperplasia) Atherosclerotic heart disease of [place] coronary artery without angina pectoris Acne rosacea HARLEY on CPAP Kidney stones Hypertension Former smoker, stopped smoking in distant past Hyperlipidemia Home Medications ?Medication ?Instructions ?Recorded ?Last Taken ?Type aspirin 81 mg tablet,delayed 162 mg PO DAILY@0800 [facility] 01/22/14 05/31/19 History release acetaminophen 500 mg tablet 500 - 1,000 mg PO Q6H PRN PRN Pain 07/05/19 Unknown History Or Fever tamsulosin 0.4 mg capsule 0.4 mg PO BID prostate 07/05/19 Unknown History doxycycline hyclate 20 mg tablet 20 mg PO BID infection 09/17/21 Unknown History losartan 50 mg tablet 50 mg PO DAILY blood pressure 09/17/21 Unknown History apixaban 5 mg tablet (Eliquis) 5 mg PO BID blood thinner #60 tabs 04/23/23 Unknown Rx coQ10 (ubiquinol) 100 mg capsule 100 mg PO DAILY supplement 05/05/23 Unknown History (CoQmax Ubiquinol) docusate sodium 100 mg capsule 100 mg PO DAILY stool softner 05/05/23 Unknown History (Col-Rite) glucosamine HCl 1,500 mg tablet 3,000 mg PO DAILY supplement 05/05/23 Unknown History ivermectin 1 %-metronidazole 1 1 ea topical DAILY 05/05/23 Unknown History %-niacinamide 4 % topical gel (Aveidaoxia) magnesium 200 mg tablet 400 mg PO DAILY supplement 05/05/23 Unknown History metoprolol tartrate 50 mg tablet 12.5 mg PO BID blood pressure 05/05/23 Unknown History (Lopressor) rosuvastatin 40 mg tablet (Crestor) 40 mg PO QHS cholesterol 05/05/23 Unknown History ranolazine 500 mg tablet,extended 500 mg PO BID 90 days #180 tabs 05/06/23 Unknown Rx release,12 hr cholecalciferol (vitamin D3) 50 50 mcg PO DAILY 03/21/24 Unknown History mcg (2,000 unit) capsule (Vitamin D3) metoprolol tartrate 25 mg tablet 25 mg PO BID 03/21/24 Unknown History tumeric curcumin complex 03/21/24 Unknown History Allergy/AdvReac Type Severity Reaction Status Date / Time No Known Allergies Allergy Verified 03/21/24 20:17 Family History Father Hypertension Mother Cancer Kidney stones Surgical History S/P triple vessel bypass Hx of tonsillectomy H/O lithotripsy H/O hernia repair Social History household members: spouse Smoking Status: Former smoker how long ago did patient quit smoking: Quit in the 1970s. alcohol intake: current alcohol intake frequency: holidays/special occasions only substance use type: does not use ROS ROS ED Constitutional Constitutional ED: Denies chills, fever(s) or sweats Eyes Eyes: Denies change in vision ENT ENT ED: Denies dysphagia or sore throat Cardiovascular Cardiovascular: Reports chest pain; Denies leg edema, palpitations or racing heartbeat Respiratory/Chest Respiratory/Chest: Reports dyspnea; Denies cough or dyspnea on exertion Gastrointestinal Gastrointestinal: Denies abdominal pain, diarrhea, nausea or vomiting Genitourinary Genitourinary ED: Denies dysuria, hematuria or urinary frequency Musculoskeletal Musculoskeletal: Denies back pain, extremity pain or neck pain Integumentary Denies rash or wounds Neurologic Neurologic: Denies headache(s), paresthesias or weakness EXAM Physical Exam Const Vital Signs: 03/21/24 20:16 03/21/24 20:43 03/21/24 21:09 Temperature 98.2 F Temperature Source Oral Pulse Rate 64 65 Respiratory Rate 16 18 Blood Pressure 165/83 H 157/89 H Blood Pressure Mean 110 111 Pulse Ox 97 96 96 Oxygen Delivery Method Room Air Room Air Room Air 03/21/24 22:08 03/21/24 22:09 Temperature 98.2 F Temperature Source Pulse Rate 76 66 Respiratory Rate 18 18 Blood Pressure 151/89 H Blood Pressure Mean 109 Pulse Ox 97 97 Oxygen Delivery Method Room Air Positive well nourished and well developed General Appearance ED: well developed and NAD HEENT Reports moist mucous membranes normocephalic and atraumatic Eyes EOMs intact bilaterally and conjunctivae normal General Eye ED: Yes normal appearance of both eyes Neck no lymphadenopathy and supple General: Negative for tenderness Chest Wall Chest Narrative: Midline chest scar. Chest: Negative for tenderness Resp normal respiratory effort and normal air movement Resp Narrative: Symmetric breath sounds Effort and Inspection: symmetric chest movement; Negative for respiratory distress Cardio regular rate, regular rhythm and no murmurs Peripheral Pulses: pulses 2+ throughout GI normal to inspection, nondistended, normoactive bowel sounds and non-tender Palpation: Negative for guarding or rebound tenderness present Back/Spine no CVA tenderness and no thoracic nor lumbar tenderness Extremity normal to inspection General Extremety ED: Negative for edema or tenderness General Extremity: Negative for edema Neuro oriented x3 and no sensory deficits noted Sensorium / Orientation: awake and alert Skin no rashes or lesions noted and no wounds Heart Score History: Moderately Suspicious ECG: Normal Age: >/= 65 years Risk Factors: >/= 3 Risk Factors or History of CAD Score: 5 MDM MDM MDM Narrative Medical decision making narrative: Interventions / MDM: Differential diagnosis: Chest pain, history of coronary disease Diagnosis considered but do not suspect: Pulmonary embolus however chronic anticoagulation medications with compliance. No clinical pneumonia. Pneumothorax however chest x-ray negative. My EKG interpretation: Sinus rate of 63, no ST or T wave changes. Imaging independently reviewed and interpreted by myself: 2 view chest x-ray r ight lower lobe atelectasis. Possible infiltrate per radiology. External documents reviewed: Cardiac cath April 2023: Patent MOHR to LAD and saphenous graft to the obtuse. Collaterals right coronary. 50% proximal LAD lesion. Test considered but not ordered:N/A ED course: Patient with exertion no dyspnea with chest pain symptoms. History of coronary disease with three-vessel bypass. Reported had to stop with his exercise today due to symptoms. Will check EKG, cardiac workup. He is on chronic anticoagulation with compliance or for lower suspicion for PE. Chest x-ray questionable infiltrate atelectasis clinically no cough or concerns for infiltrate. Initial troponin was 8. Patient reports similar symptoms to his NH with exertional dyspnea. Review of records he had a cardiac cath April 2023. He reports he was only able to do 5 minutes of elliptical today before being symptomatic. I will discuss with hospitalist service for admission. I discussed with Dr. Hilton for admission. Re-evaluation: stable Disposition discussed with patient/family/significant other: Patient Case discussed with consulting clinician: Hospitalist This note was generated with [employer] dictation software. It may contain incorrect words, spelling, and punctuation that were not noted in checking the note before signing. Lab Data Attestation: I reviewed the patient's lab results. Labs: Laboratory Results - last 24 hr 03/21/24 20:28 WBC 7.0 RBC 5.48 Hgb 17.3 H Hct 50.6 MCV 92.3 MCH 31.6 MCHC 34.2 RDW Std Deviation 41.4 RDW Coeff of [place] 12.2 Plt Count 274 MPV 9.3 Immature Gran % (Auto) 0.900 Neut % (Auto) 61.5 Lymph % (Auto) 21.4 [place] % (Auto) 12.4 H Eos % (Auto) 2.9 Baso % (Auto) 0.9 Absolute Neuts (auto) 4.3 Absolute Lymphs (auto) 1.49 Nucleated RBC % 0 PT 13.9 INR 1.1 APTT 29.1 Sodium 140 Potassium 4.1 Chloride 106 Carbon Dioxide 28.0 Anion Gap 6 BUN 27 H Creatinine 0.97 Estim Creat Clear Calc 59.63 Est GFR (MDRD) Af Amer 96 Est GFR (MDRD) Non-Af 80 BUN/Creatinine Ratio 27.8 H Glucose 106 Calcium 9.1 Troponin I High Sens 8 Radiography Diagnostic Testing: Clinical Impression(s) from Imaging Studies Chest X-Ray 03/21/24 20:43 IMPRESSION: Right lower lobe pulmonary opacity may be atelectasis, scarring, or pneumonia similar to the prior examination. Electronically Signed: Daryn Gomez DO at 21:07 EST , Discharge Plan Triage Chief Complaint: Chest Pain ED Provider: Philipp Morales Dx/Rx/DC Orders Primary Care Provider: Marcel Santos
[2024-03-21 21:01] LABS: International Normalized Ratio 1.1; Prothrombin Time (Protime)PT. 13.9 SECONDS (11.7-14.9)
[2024-03-21 21:02] LABS: Partial Thromboplast Time 29.1 Seconds (24.1-36.2)
[2024-03-21] MEDS: Aspirin 81 MG TAB.CHEW 162 MG PO (21:08)
[2024-03-21 21:09] VITALS: BP 157/89; PULSE 65; RESP 18; O2SAT 96
[2024-03-21 21:09] LABS: Anion Gap 6 (5-15); BUN 27 mg/dL (7-18); BUN/Creat Ratio 27.8 RATIO (10-20); Calcium,Total 9.1 mg/dL (8.5-10.1); Chloride 106 mmol/L (98-107); Creatinine, Serum 0.97 mg/dL (0.70-1.30); EST Glomerular Filtration Rate 80 mL/min (>60); Est Glom Filt Rate - Afr Amer 96 mL/min (>60); Estimated Creatinine Clearance 59.63 ml/min; Glucose 106 mg/dL (74-106); Potassium 4.1 mmol/L (3.5-5.1); Sodium Level 140 mmol/L (136-145); Troponin-I HS (w/2H Reflex) 8 pg/mL (3.0-78.0)
--- NOTE | 2024-03-21 22:05 | PCM.HP.STD ---
HPI - General General Date of Admission: 03/21/24 Date of Service: 03/21/24 Chief Complaint: Chest pain HPI Narrative LEONOR COYLE, is a 78 M who presented to [facility] ED on 03/21/2024 with chest pain. Patient has history of CAD s/p CABG in 2019, follows with cardiology through the [facility]. Notably was admitted here in April 2023 with exertional chest pain. Left heart cath was done and showed patent CABG vessels with normal ejection fraction. Ranexa was added to his medication regimen at that time. He subsequently had worsened bradycardia with some degree of hypotension so Ranexa was discontinued by his [facility] outpatient receptionist and his Lopressor dose was lowered. Since then patient has been doing well. As recently as 2 days ago he use the elliptical for 15 minutes without any issues. However today when using elliptical he had exertional chest pain after only 5 minutes, so he came in for further evaluation. In the ED he was hypertensive to the 150s to 160s systolic but otherwise hemodynamically stable on room air. EKG showed normal sinus rhythm with known left axis deviation and LVH, no ischemic changes noted. Troponin trend 9 > 12. Labs were otherwise unremarkable. Given his presentation and history, hospitalist was contacted for admission. I saw the patient at bedside in the ED. Patient was sitting up comfortably in bed, conversing normally, in no acute distress. Denied any chest pain currently. Denied any shortness of breath. Patient did report having a sore throat for few days last week but no other significant infectious symptoms. He denies any lower extremity swelling. Has a remote smoking history, quit in the 70s. No other acute concerns at this time. Will be admitted for further management. [facility] Medical History Bradycardia BPH (benign prostatic hyperplasia) Atherosclerotic heart disease of ione coronary artery without angina pectoris Acne rosacea HARLEY on CPAP Kidney stones Hypertension Former smoker, stopped smoking in distant past Hyperlipidemia Home Medications ?Medication ?Instructions ?Recorded ?Last Taken ?Type aspirin 81 mg tablet,delayed 162 mg PO DAILY@0800 [facility] 01/22/14 03/22/24 History release acetaminophen 500 mg tablet 500 - 1,000 mg PO Q6H PRN PRN Pain 07/05/19 Unknown History Or Fever tamsulosin 0.4 mg capsule 0.4 mg PO BID prostate 07/05/19 03/22/24 History doxycycline hyclate 20 mg tablet 20 mg PO BID infection 09/17/21 03/22/24 History losartan 50 mg tablet 50 mg PO DAILY blood pressure 09/17/21 03/22/24 History apixaban 5 mg tablet (Eliquis) 5 mg PO BID blood thinner #60 tabs 04/23/23 03/22/24 Rx coQ10 (ubiquinol) 100 mg capsule 100 mg PO DAILY supplement 05/05/23 03/22/24 History (CoQmax Ubiquinol) docusate sodium 100 mg capsule 100 mg PO DAILY stool softner 05/05/23 03/22/24 History (Col-Rite) glucosamine HCl 1,500 mg tablet 3,000 mg PO DAILY supplement 05/05/23 03/22/24 History ivermectin 1 %-metronidazole 1 1 ea topical DAILY 05/05/23 03/22/24 History %-niacinamide 4 % topical gel (Aveidaoxia) magnesium 200 mg tablet 400 mg PO DAILY supplement 05/05/23 03/22/24 History metoprolol tartrate 50 mg tablet 12.5 mg PO BID blood pressure 05/05/23 Unknown History (Lopressor) rosuvastatin 40 mg tablet (Crestor) 40 mg PO QHS cholesterol 05/05/23 03/21/24 History ranolazine 500 mg tablet,extended 500 mg PO BID 90 days #180 tabs 05/06/23 03/22/24 Rx release,12 hr cholecalciferol (vitamin D3) 50 50 mcg PO DAILY 03/21/24 03/22/24 History mcg (2,000 unit) capsule (Vitamin D3) metoprolol tartrate 25 mg tablet 25 mg PO BID 03/21/24 03/22/24 History tumeric curcumin complex 03/21/24 Unknown History Allergy/AdvReac Type Severity Reaction Status Date / Time No Known Allergies Allergy Verified 03/21/24 20:17 Family History Father Hypertension Mother Cancer Kidney stones Surgical History S/P triple vessel bypass Hx of tonsillectomy H/O lithotripsy H/O hernia repair Social History household members: spouse Smoking Status: Former smoker how long ago did patient quit smoking: Quit in the 1970s. alcohol intake: current alcohol intake frequency: holidays/special occasions only substance use type: does not use ROS Constitutional Constitutional: Denies chills, fatigue, fever(s) or weakness Eyes Eyes: Denies change in vision Cardiovascular Cardiovascular: Denies chest pain or palpitations Respiratory/Chest Respiratory/Chest: Denies shortness of breath at rest Gastrointestinal Gastrointestinal: Denies abdominal pain Neurologic Neurologic: Denies dizziness or headache(s) Vital Signs Vital Signs Vital Signs: 03/21/24 20:16 03/21/24 20:43 03/21/24 21:09 Temperature 98.2 F Temperature Source Oral Pulse Rate 64 65 Respiratory Rate 16 18 Blood Pressure 165/83 H 157/89 H Blood Pressure Mean 110 111 Pulse Ox 97 96 96 Oxygen Delivery Method Room Air Room Air Room Air Weight Weight: 75.807 kg Body Mass Index (BMI) 26.2 Physical Exam Const alert, oriented x3, no apparent distress and average body habitus Constitutional Narrative: Pleasant elderly male, sitting up comfortably in bed, conversing normally, in no acute distress. General Appearance: cooperative and comfortable HEENT normocephalic, head/scalp atraumatic, hearing grossly normal bilaterally, nasal mucous membranes and turbinates normal and moist oral mucous membranes Eyes PERRL, EOMs intact bilaterally and conjunctivae normal Neck full ROM Chest inspection of chest normal Resp normal respiratory effort, normal air movement, no use of accessory muscles and clear to auscultation bilaterally Cardio regular rate, regular rhythm, no murmurs and peripheral pulses 2+ throughout GI normal to inspection, nondistended, normoactive bowel sounds, soft to palpation, non-tender and non-distended Back/Spine normal ROM Extremity normal to inspection, full ROM and no pedal edema Skin no rashes or lesions noted Psych mental status grossly normal Results Lab / Micro Data 03/21/24 20:28 03/21/24 20:28 Labs: Laboratory Results - last 24 hr 03/21/24 20:28: WBC 7.0, RBC 5.48, Hgb 17.3 H, Hct 50.6, MCV 92.3, MCH 31.6, MCHC 34.2, RDW Std Deviation 41.4, RDW Coeff of Namrata 12.2, Plt Count 274, MPV 9.3, Immature Gran % (Auto) 0.900, Neut % (Auto) 61.5, Lymph % (Auto) 21.4, [place] % (Auto) 12.4 H, Eos % (Auto) 2.9, Baso % (Auto) 0.9, Absolute Neuts (auto) 4.3, Absolute Lymphs (auto) 1.49, Nucleated RBC % 0, PT 13.9, INR 1.1, APTT 29.1, Sodium 140, Potassium 4.1, Chloride 106, Carbon Dioxide 28.0, Anion Gap 6, BUN 27 H, Creatinine 0.97, Estim Creat Clear Calc 59.63, Est GFR (MDRD) Af Amer 96, Est GFR (MDRD) Non-Af 80, BUN/Creatinine Ratio 27.8 H, Glucose 106, Calcium 9.1, Troponin I High Sens 8 Imaging Radiology Impression Chest X-Ray 03/21/24 20:43 IMPRESSION: Right lower lobe pulmonary opacity may be atelectasis, scarring, or pneumonia similar to the prior examination. Electronically Signed: Daryn Gomez, at 21:07 EST , Assessment & Plan Assessment/Plan (1) Chest pain: PLAN: Plan Patient is a 78-year-old male who presented [facility] ED on 03/21/2024 with chest pain. 1. Chest pain ? Admit under observation status to PCU. History of CAD s/p CABG x 3 in 2019. Last left heart cath in April 2023 showed patent CABG vessels, normal ejection fraction, no other concerning findings and plan was for medical therapy. EKG normal and troponins negative x 2 here. Mildly hypertensive but otherwise hemodynamically stable. Nuclear stress test ordered. Unfortunately per staff the stress test will be done until morning of 03/23 due to the holiday. Will keep n.p.o. at midnight on 03/23. Continue home aspirin, losartan, Lopressor and statin. Lipid panel, A1c and TSH ordered. 2. History of CAD s/p CABG, hypertension, hyperlipidemia ? History as noted above. Notably was started on Ranexa after cath in April but had worsened bradycardia with hypotension and resultant lightheadedness and dizziness with this so Ranexa was discontinued. Mildly hypertensive on admit. Continue home medications as noted above. 3. Paroxysmal A-fib ? In normal sinus rhythm on admit. Continue home Eliquis and Lopressor. 4. BPH with obstructive symptoms ? Continue home tamsulosin. DVT prophylaxis: Lovenox CODE STATUS: Full code, verified Expected disposition: Home, 1 to 2 days Total clinical time spent by myself addressing the patient's medical issues, reviewing all the data, and collaborating with patient's care team: 55 minutes. Charges/Coding Visit Charges Inpatient E&M: 83512 Init Hosp L2
[2024-03-21 22:08] VITALS: BP 151/89; PULSE 76; RESP 18; TEMP 36.8; O2SAT 97
[2024-03-21 22:09] VITALS: PULSE 66; RESP 18; O2SAT 97
[2024-03-21 22:47] LABS: Reflex Troponin-HS? (from REC) Y
[2024-03-21 23:01] LABS: Hemoglobin A1c 5.5 % (3.8-5.6)
[2024-03-21 23:29] LABS: Troponin-I HS 9 pg/mL (3.0-78.0)
[2024-03-21 23:32] VITALS: BMI 25.5
[2024-03-22] VITALS: BP 167/99; PULSE 66; RESP 18; TEMP 36.4; O2SAT 100
[2024-03-22 02:33] LABS: Troponin-I HS 12 pg/mL (3.0-78.0)
[2024-03-22 06:00] VITALS: BP 125/75; PULSE 58; RESP 16; TEMP 36.8; O2SAT 96
[2024-03-22 07:24] LABS: Hematocrit 46.9 % (40-54); Mean Corp Hgb Conc 34.1 g/dL (32-36); Mean Corpuscular Hgb 31.4 pg (27.0-32.0); Mean Corpuscular Volume 92.1 fL (80-94); Mean Platelet Vol. 9.3 fl (6.2-12.0); Platelet Count 248 K/mm3 (150-450); RBC Distribution Width CV 12.3 % (11.6-14.6); RBC Distribution Width SD 42.1 fl (35.1-43.9); Red Blood Count 5.09 M/mm3 (4.6-6.2); White Blood Count 6.8 K/mm3 (4.4-11.0)
[2024-03-22 07:47] LABS: Anion Gap 5 (5-15); BUN 25 mg/dL (7-18); BUN/Creat Ratio 28.6 RATIO (10-20); Calcium,Total 8.7 mg/dL (8.5-10.1); Chloride 111 mmol/L (98-107); Cholesterol 117 mg/dL (200); Creatinine, Serum 0.88 mg/dL (0.70-1.30); EST Glomerular Filtration Rate 90 mL/min (>60); Est Glom Filt Rate - Afr Amer 109 mL/min (>60); Estimated Creatinine Clearance 65.72 ml/min; Glucose 92 mg/dL (74-106); High Density Lipoprotein 46 mg/dL; Potassium 4.1 mmol/L (3.5-5.1); Sodium Level 139 mmol/L (136-145); Triglycerides 102 mg/dL; Very Low Density Lipoprotein 20 mg/dL (5-40)
[2024-03-22 08:31] VITALS: PULSE 63
[2024-03-22] MEDS: Tamsulosin HCl 0.4 MG Capsule PO (08:31)
[2024-03-22] MEDS: Aspirin E.C. 81 MG Tablet 162 MG PO (08:31)
[2024-03-22] MEDS: Docusate Sodium 100 MG Capsule PO (08:31)
[2024-03-22] MEDS: Metoprolol Tartrate 25 MG Tablet PO (08:31)
[2024-03-22] MEDS: APIXABAN 5 MG TABLET PO (08:32)
[2024-03-22] MEDS: Cholecalciferol (VIT D3) 25 MCG TABLET (1,000 UNITS) 50 MCG PO (08:33)
[2024-03-22] MEDS: Magnesium Chloride 64 MG Delay Rel.Tablet 128 MG PO (08:34)
[2024-03-22 12:00] VITALS: BP 153/80; PULSE 58; RESP 16; TEMP 36.5; O2SAT 97
[2024-03-22 13:00] VITALS: BP 138/84; PULSE 70; O2SAT 95
[2024-03-22 15:15] VITALS: BP 129/81; PULSE 65; RESP 16; TEMP 36.6; O2SAT 96
--- NOTE | 2024-03-22 15:19 | DCINST_ITS ---
Discharge Instructions Diet Discharge Diet: Low fat / Low cholesterol DC O2, CPAP, BIPAP needs Additional Home O2 Discharge instructions: No Dressing / Incision Discharge Activity: Return to Normal Activity Dressing / Incision Call your doctor if you observe: Fever of 101 or Higher, Shortness of breath, Dizziness, Fainting spells, Swelling in the ankles, Chest pain and Increased palpitations (irregular heartbeat) Follow Up Care Test Results: Test results from this visit will be discussed in further detail at your follow- up appointment, if applicable. Discharge Plan Admission Admit Date/Time: 03/21/24 22:08 Attending Provider: Tony Garay Primary Care Provider: Marcel Santos Consulting Providers: Darrell Hilton Discharge Orders/Prescriptions Prescriptions: Continued aspirin 81 MG tablet 162 mg PO DAILY@0800 acetaminophen 500 MG tablet 500 - 1,000 mg PO Q6H PRN PRN (Reason: Pain Or Fever) tamsulosin 0.4 MG capsule 0.4 mg PO BID losartan 50 mg tablet 50 mg PO DAILY Patient Comments: Take 1 tablet by mouth once daily. doxycycline hyclate 20 mg tablet 20 mg PO BID Eliquis 5 mg tablet 5 mg PO BID Qty: 60 0RF metoprolol tartrate [Lopressor] 50 mg tablet 12.5 mg PO BID Patient Comments: pt has been taking 25mg BID last few days [id number] [Aveidaoxia] 1-1-4 % gel 1 ea topical DAILY rosuvastatin [Crestor] 40 mg tablet 40 mg PO QHS docusate sodium [Col-Rite] 100 mg capsule 100 mg PO DAILY magnesium 200 mg tablet 400 mg PO DAILY glucosamine HCl 1,500 mg tablet 3,000 mg PO DAILY Rx Instructions: administer with a meal coQ10 (ubiquinol) [CoQmax Ubiquinol] 100 mg capsule 100 mg PO DAILY ranolazine 500 mg Tablet Extended Release 12 Hr 500 mg PO BID 90 Days Qty: 180 0RF cholecalciferol (vitamin D3) [Vitamin D3] 50 mcg (2,000 unit) capsule 50 mcg PO DAILY tumeric curcumin complex Patient Comments: 500mg daily metoprolol tartrate 25 mg tablet 25 mg PO BID Referrals / Follow Up: Marcel Santos MD [Primary Care Provider] - Within 1 Week Disposition Disposition (needs filled in before D/C Order can be placed): Home, Self Care
--- NOTE | 2024-03-22 15:24 | PCM.DC.SUM ---
Providers Date of Admission: 03/21/24 Primary Care Physician: Dr. Marcel Santos MD Reason For Visit: CHEST PAIN Diagnosis Discharge Diagnosis (1) Chest pain: Status: Inactive Code(s): R07.9 - Chest pain, unspecified Medications at Discharge Home Medications aspirin 81 mg tablet,delayed release 162 mg PO DAILY@0800 [facility] 01/22/14 acetaminophen 500 mg tablet 500 - 1,000 mg PO Q6H PRN PRN Pain Or Fever 07/05/19 tamsulosin 0.4 mg capsule 0.4 mg PO BID prostate 07/05/19 doxycycline hyclate 20 mg tablet 20 mg PO BID infection 09/17/21 losartan 50 mg tablet 50 mg PO DAILY blood pressure 09/17/21 apixaban 5 mg tablet (Eliquis) 5 mg PO BID blood thinner #60 tabs 04/23/23 coQ10 (ubiquinol) 100 mg capsule (CoQmax Ubiquinol) 100 mg PO DAILY supplement 05/05/23 docusate sodium 100 mg capsule (Col-Rite) 100 mg PO DAILY stool softner 05/05/23 glucosamine HCl 1,500 mg tablet 3,000 mg PO DAILY supplement 05/05/23 ivermectin 1 %-metronidazole 1 %-niacinamide 4 % topical gel (Aveidaoxia) 1 ea topical DAILY 05/05/23 magnesium 200 mg tablet 400 mg PO DAILY supplement 05/05/23 metoprolol tartrate 50 mg tablet (Lopressor) 12.5 mg PO BID blood pressure 05/05/23 rosuvastatin 40 mg tablet (Crestor) 40 mg PO QHS cholesterol 05/05/23 ranolazine 500 mg tablet,extended release,12 hr 500 mg PO BID heart 90 days #180 tabs 05/06/23 cholecalciferol (vitamin D3) 50 mcg (2,000 unit) capsule (Vitamin D3) 50 mcg PO DAILY vitamin 03/21/24 metoprolol tartrate 25 mg tablet 25 mg PO BID blood pressure 03/21/24 tumeric curcumin complex 03/21/24 Hospital Course Operations None Procedures None Summary of Care Provided Minutes Spent on Discharge: 33 Hospital Course: Per HPI: LEONOR COYLE, is a 78 M who presented to [facility] ED on 03/21/2024 with chest pain. Patient has history of CAD s/p CABG in 2019, follows with cardiology through the [facility]. Notably was admitted here in April 2023 with exertional chest pain. Left heart cath was done and showed patent CABG vessels with normal ejection fraction. Ranexa was added to his medication regimen at that time. 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 Since then patient has been doing well. As recently as 2 days ago he use the elliptical for 15 minutes without any issues. However today when using elliptical he had exertional chest pain after only 5 minutes, so he came in for further evaluation. In the ED he was hypertensive to the 150s to 160s systolic but otherwise hemodynamically stable on room air. EKG showed normal sinus rhythm with known left axis deviation and LVH, no ischemic changes noted. Troponin trend 9 > 12. Labs were otherwise unremarkable. Given his presentation and history, hospitalist was contacted for admission. I saw the patient at bedside in the ED. Patient was sitting up comfortably in bed, conversing normally, in no acute distress. Denied any chest pain currently. Denied any shortness of breath. Patient did report having a sore throat for few days last week but no other significant infectious symptoms. He denies any lower extremity swelling. Has a remote smoking history, quit in the 70s. No other acute concerns at this time. Will be admitted for further management. Hospital Course: 1. Chest pain rule out?78-year-old male presented to the hospital with exertional chest pain after only 5 minutes on an elliptical. He had used an elliptical prior to this for 15 minutes without any issues. He checked his blood pressure and it was elevated so he presented to the hospital. Today he states that he has no more chest pain and that he feels back to his normal. His troponin has been negative since admission and he had cardiac catheterization within the last year that was essentially unremarkable. He is on multiple medications as he has had a previous triple bypass in the past. I discussed with him that being is giving he would not be getting stress test today that he would have to wait until tomorrow versus going home and obtaining 1 as an outpatient since his symptoms had resolved. I discussed with him the risks and benefits of either issue and he expressed understanding of those risks and benefits and he elected to go home today and follow-up as an outpatient with his PCP. I did discuss with him that the stress test would happen sooner if he stayed in the hospital as it would happen tomorrow however he would like to go home as he is feeling better and his EKG was nonischemic and his troponins were normal. No medication changes were made. 2. Coronary artery disease status post CABG, essential hypertension, hyperlipidemia, paroxysmal A-fib all chronic medical conditions which complicate his care. His home medications were continued where appropriate Physical Exam Narrative General: Alert, Oriented x3, Cooperative, No apparent distress HEENT: Atraumatic, PERRLA, EOMI, Normocephalic Oral: Moist Mucosa Neck: Supple, No JVD Lungs: Clear to auscultation, Normal air movement, No rhonchi, No wheeze, No rales Cardiovascular: Regular rate, Regular Rhythm, Normal S1, Normal S2, No murmurs Abdomen: Soft, Non Tender, Non-Distended, No Hepato-splenomegaly Extremities: No edema, Capillary Refill Less than 3 Seconds Skin: No rashes, No breakdown Musculoskeletal: No Tenderness to Palpation of Joints or Extremities Neurological: No focal neurological deficits, Motor Exam 5/5 strength throughout, Sensory exam intact to light touch and pain Psych/Mental Status: Normal Affect, Appropriate Weight / BMI Weight Weight: 163 lb 2.273 oz Body Mass Index (BMI) 25.5 ABG / Lab / Microbiology Data 03/22/24 06:05 03/22/24 06:05 Laboratory: Laboratory Results - last 24 hr 03/21/24 20:28: WBC 7.0, RBC 5.48, Hgb 17.3 H, Hct 50.6, MCV 92.3, MCH 31.6, MCHC 34.2, RDW Std Deviation 41.4, RDW Coeff of [place]rata 12.2, Plt Count 274, MPV 9.3, Immature Gran % (Auto) 0.900, Neut % (Auto) 61.5, Lymph % (Auto) 21.4, Rhea % (Auto) 12.4 H, Eos % (Auto) 2.9, Baso % (Auto) 0.9, Absolute Neuts (auto) 4.3, Absolute Lymphs (auto) 1.49, Nucleated RBC % 0, PT 13.9, INR 1.1, APTT 29.1, Sodium 140, Potassium 4.1, Chloride 106, Carbon Dioxide 28.0, Anion Gap 6, BUN 27 H, Creatinine 0.97, Estim Creat Clear Calc 59.63, Est GFR (MDRD) Af Amer 96, Est GFR (MDRD) Non-Af 80, BUN/Creatinine Ratio 27.8 H, Glucose 106, Calcium 9.1, Troponin I High Sens 8 03/21/24 22:38: Hemoglobin A1c 5.5, Troponin I High Sens 9, TSH 2.950 03/22/24 02:08: Troponin I High Sens 12 03/22/24 06:05: WBC 6.8, RBC 5.09, Hgb 16.0, Hct 46.9, MCV 92.1, MCH 31.4, MCHC 34.1, RDW Std Deviation 42.1, RDW Coeff of [place] 12.3, Plt Count 248, MPV 9.3, Sodium 139, Potassium 4.1, Chloride 111 H, Carbon Dioxide 24.0, Anion Gap 5, BUN 25 H, Creatinine 0.88, Estim Creat Clear Calc 65.72, Est GFR (MDRD) Af Amer 109, Est GFR (MDRD) Non-Af 90, BUN/Creatinine Ratio 28.6 H, Glucose 92, Calcium 8.7, Triglycerides 102, Cholesterol 117, LDL Cholesterol 51, VLDL Cholesterol 20, HDL Cholesterol 46 Radiography Diagnostic Testing: Radiology Impression Chest X-Ray 03/21/24 20:43 IMPRESSION: Right lower lobe pulmonary opacity may be atelectasis, scarring, or pneumonia similar to the prior examination. Electronically Signed: Daryn Gomez, DO at 21:07 EST Reading Location ID and State: [facility] / [place] Tel , Service support , D/C Instructions Discharge Diet: Low fat / Low cholesterol Call your doctor if you observe: Fever of 101 or Higher, Shortness of breath, Dizziness, Fainting spells, Swelling in the ankles, Chest pain and Increased palpitations (irregular heartbeat) DC O2, CPAP, BIPAP Needs Additional Home O2 Discharge instructions: No DC home with Oxygen: No Meaningful Use Info Meaningful Use Meaningful Use Diagnoses (Choose all that apply): None applicable Ischemic Stroke Statin Dosing Therapy Reference: STATIN DOSE THERAPY REFERENCE: * Patients > 75 years receive moderate or high dose statin therapy. * Patients 75 years or YOUNGER should receive HIGH intensity statin dose unless contraindicated. You will be required to document reason for non-treatment if statin daily dose does not meet guidelines. HIGH DOSE STATIN THERAPY DAILY Atorvastatin > than or = to 40 mg Rosuvastatin > than or = to 20 mg Amlodipine + Atorvastatin > than or = to 2.5/40 mg Ezetimibe + Simvastatin 10/80 mg Simvastatin 80mg Discharge Plan Admission Admit Date/Time: 03/21/24 22:08 Attending Provider: Tony Garay Primary Care Provider: Marcel Santos Consulting Providers: Darrell Hilton Discharge Orders/Prescriptions Prescriptions: Continued aspirin 81 MG tablet 162 mg PO DAILY@0800 acetaminophen 500 MG tablet 500 - 1,000 mg PO Q6H PRN PRN (Reason: Pain Or Fever) tamsulosin 0.4 MG capsule 0.4 mg PO BID losartan 50 mg tablet 50 mg PO DAILY Patient Comments: Take 1 tablet by mouth once daily. doxycycline hyclate 20 mg tablet 20 mg PO BID Eliquis 5 mg tablet 5 mg PO BID Qty: 60 0RF metoprolol tartrate [Lopressor] 50 mg tablet 12.5 mg PO BID Patient Comments: pt has been taking 25mg BID last few days [id number]-[id number] [Aveidaoxia] 1-1-4 % gel 1 ea topical DAILY rosuvastatin [Crestor] 40 mg tablet 40 mg PO QHS docusate sodium [Col-Rite] 100 mg capsule 100 mg PO DAILY magnesium 200 mg tablet 400 mg PO DAILY glucosamine HCl 1,500 mg tablet 3,000 mg PO DAILY Rx Instructions: administer with a meal coQ10 (ubiquinol) [CoQmax Ubiquinol] 100 mg capsule 100 mg PO DAILY ranolazine 500 mg Tablet Extended Release 12 Hr 500 mg PO BID 90 Days Qty: 180 0RF cholecalciferol (vitamin D3) [Vitamin D3] 50 mcg (2,000 unit) capsule 50 mcg PO DAILY tumeric curcumin complex Patient Comments: 500mg daily metoprolol tartrate 25 mg tablet 25 mg PO BID Referrals / Follow Up: Marcel Santos MD [Primary Care Provider] - Within 1 Week Disposition Disposition (needs filled in before D/C Order can be placed): Home, Self Care Charges/Coding Visit Charges Inpatient E&M: 43596 Disch Hosp >30min
== END 2024-03-22 15:24 | disposition home or self-care (01) ==
LOC: ED 22:20 → PCU 23:13
PROVIDERS: Admitting Provider Hospitalist; Emergency Provider Emergency Medicine; PCP Family Medicine; Visit Provider Family Medicine
DX: R07.89 Other chest pain (principal); I48.0 Paroxysmal atrial fibrillation; Z79.01 Long term (current) use of anticoagulants; Z79.82 Long term (current) use of aspirin; I25.10 Atherosclerotic heart disease of native coronary artery without angina pectoris; I10 Essential (primary) hypertension; E78.00 Pure hypercholesterolemia, unspecified; Z87.891 Personal history of nicotine dependence; Z95.1 Presence of aortocoronary bypass graft; R06.09 Other forms of dyspnea; N40.0 Benign prostatic hyperplasia without lower urinary tract symptoms; G47.33 Obstructive sleep apnea (adult) (pediatric); Z79.899 Other long term (current) drug therapy
CPT/HCPCS: 36415; 71046; 80048; 80061; 83036; 84443; 84484; 85025; 85027; 85610; 85730; 93005; 99221; 99284; A4216; G0378

== ENCOUNTER → 2024-10-31 | Outpatient (CLI) | payer MEDICARE, SELFPAY ==
[2019-11-08 06:42] VITALS: BMI 25.9
--- NOTE | 2024-10-31 12:49 | CT_ITS ---
PROCEDURE: CT ABD/PELVIS W/WO CONTRAST 10/31/2024 REASON FOR EXAM: GROSS HEMATURIA TECHNIQUE: CT ABD/PELVIS W/WO CONTRAST Coronal and Sagittal reconstruction series were provided. CONTRAST: Isovue-300 VOLUME: 100 mL One or more dose reduction techniques were used (e.g., Automated exposure control, adjustment of the mA and/or kV according to patient size, use of iterative reconstruction technique. RADIATION DOSE SUMMARY: CTDlvol: 68.90 mGy DLP: 2050.29 mGycm COMPARISON: CT abdomen and pelvis without contrast, 05/13/2019. FINDINGS: Lung bases: The lung bases are clear. There are no pleural effusions. The heart size is normal. There is no pericardial effusion. There is calcific vascular disease of the thoracic aorta and coronary arteries. Liver: There is a 4.3 cm in diameter cyst in the left hepatic lobe. There are multiple smaller cysts in both hepatic lobes. Gallbladder: Normal. Spleen: Normal. There is a benign splenule inferior to the spleen. Pancreas: Normal. Adrenals: Normal. Kidneys: There are multiple cortical cysts on both kidneys the largest on the left measuring 9.5 cm in diameter in the largest on the right measuring 6.0 cm in diameter. There are 2 x 2 mm stones in an upper pole calyx of the left kidney, max HU 220. There is a 2 mm stone in an interpolar calyx of the left kidney. There is no ureterolithiasis or hydronephrosis. Bladder: Normal. Reproductive Organs: The prostate gland is normal in size. The seminal vesicles are normal. There is no free fluid in the pelvis. There is no pelvic or inguinal lymphadenopathy. There is a right inguinal hernia containing normal fat measuring 3.4 cm in diameter. Bowel: There is a small hiatal hernia. There is stool throughout the colon. Appendix: Normal. Lymph nodes: There is no significant mesenteric, retroperitoneal or pelvic lymphadenopathy. Vasculature: There is calcific vascular disease of the abdominal aorta. The inferior vena cava and portal venous system are normal. Peritoneum / Retroperitoneum: There are no abnormal intra or retroperitoneal masses or fluid collections. Bones: There is multilevel degenerative disc disease of the lumbar spine most severe at the L3-4 and L4-5 levels. There is mild levoscoliosis of the lumbar spine. CT/CT Abd/Pelvis W/WO Contrast IMPRESSION: 1. Left nephrolithiasis without obstruction. 2. The bladder appears unremarkable. 3. There is a small hiatal hernia. 4. Right inguinal hernia containing fat. 5. Other findings as noted. Reading Location: [id number]
== END | disposition home or self-care (01) ==
PROVIDERS: PCP Family Medicine; Referring Provider Urology; Visit Provider Urology
DX: R31.0 Gross hematuria (principal)
CPT/HCPCS: 74178; Q9967

== ENCOUNTER 2024-11-15 11:30 | Outpatient (RCR) | payer MEDICARE, SELFPAY ==
[2019-11-08 06:42] VITALS: BMI 25.9
--- NOTE | 2024-10-23 15:46 | HP.PTEVAL ---
Patient's Visit Information Visit Information Visit Information: LEONOR COYLE is a 79 year old M referred to Physical Therapy by Dr. Marcel Santos MD with a diagnosis of LOW BACK PAIN. Date of Evaluation: 10/22/24 Physical Therapist: Carolyn Vásquez PT, Cert MDT Visit Plan Frequency: 2x /Week Duration: 4-6 Weeks Plan: POSTURE CORRECTION/STRENGTHENING, INSTRUCTION IN APPROPRIATE BODY MECHANICS AND ACTIVITY MODIFICATIONS. DLS PROGRAM WITH NEUTRAL SPINE. ADELFO LE ROM, STRETCHING AND STRENGTHENING. HEP INSTRUCTION. 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 LIKES TO [employer]. Present symptoms: INTERMITTENT L LOW BACK PAIN AND L LE THIGH NUMBNESS AND TINGLING. DENIES R SIDE SX'S. Present since: ABOUT 2 - 3 MONTHS AGO Pain Scale: WORST 8/10, LEAST 0/10 Currently: 1-2/10 Is it getting better, worse or staying the same: STAYING THE SAME THE LAST WEEK OR SO Commenced as a result of: BENDING Symptoms at onset: PAIN IN L LOW BACK Worse: BENDING OVER WITH A TWIST, BENDING AND REACHING, NOT NECESSARILY LIFTING, USUALLY OK IF SQUAT. ACHY IN THE MORNING. Better: SOMETIMES STANDING UP AND BENDING OVER FORWARD, SOMETIMES BENDING BACKWARDS, SOMETIMES TAKING A FEW STEPS, TYLONOL. Disturbed sleep: MAYBE ONCE OR TWICE IN THE LAST SEVERAL MONTHS. ITS ACHY IN THE MORNING. Previous history/Previous treatment: TINGLING OFF AND ON IN L LEG FOR YEARS. NO PRIOR PROFESSIONAL BACK TREATMENTS. Treatment this episode: [facility]. Coughing/sneezing/straining: NEGATIVE FOR INCREASED PAIN. Gait: H/O KNEE PROBLEMS. REPORTS PT IN THE PAST AND THEY BUCKLE SOMETIMES. STATES IT CAN HAPPEN ON STEPS BUT HASN'T FOR A FEW MONTHS. Bowel or Bladder Dysfunction: NO. BUT STATES HE DID HAVE BLOOD IN HIS URINE LAST WEEK SO SAW THE UROLOGIST TODAY AND HE IS DOING A FULL WORK UP. Accidents: NO Unexplained weight loss: NO Imaging: X-RAYS AT [facility] THEN DR. SANTOS ORDERED MRI. 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 ROOT INVOLVEMENT (SUMMARIZED FROM INFO PROVIDED BY PATIENT). PMH/Recent major surgery: Afib Bradycardia BPH (benign prostatic hyperplasia) Atherosclerotic heart disease of [place] coronary artery without angina pectoris Acne rosacea HARLEY on CPAP Kidney stones Hypertension Former smoker, stopped smoking in distant past Hyperlipidemia S/P triple vessel bypass Hx of tonsillectomy H/O lithotripsy H/O hernia repair Objective Objective: Sitting/Standing Posture: R ILIAC CREST HIGHER THAN L. NO RELEVANT LATERAL LUMBAR SHIFT. VERY SLOUCHED IN SITTING. Other Observations: INDEP GAIT AND TRANSFERS. Sensory deficit: ADELFO LE LIGHT TOUCH SENSATION GROSSLY INTACT AND SYMMETRICAL ROM deficit: ADELFO HIP FLEXOR, HS AND CALF TIGHTNESS. Motor deficit: ADELFO LE'S GROSSLY 5/5 EXCEPT HIPS 4/5 Reflexes: UNABLE TO ELICIT ADELFO LE DTR'S. Lumbar mvmt loss: flex - MOD - NE ext - MOD - NE R SG - MOD - P L BACK ON RETURN - NW L SG - MOD - NE Core strength: FAIR Palpation: NO ACUTE TENDERNESS BUT INCREASED MUSCLE TONE ADELFO PARASPINALS TREATMENT: NEUROMUSCULAR REEDUCATION - RETRAINING OF MVMT AND POSTURE FOR SITTING, LYING AND STANDING ACTIVITIES. Balance/Special Test Scores Oswestry Low Back Score: 2 Goals Goal 1:: DECREASE C/O L LB AND L LE SX'S BY AT LEAST 75% Goal Time Frame: 4-6 Weeks Goal 2:: RESTORE PAINFREE LUMBAR ROM WITH ALL ADL'S Goal Time Frame: 4-6 Weeks Goal 3:: PATIENT WILL BE INDEP WITH APPROPRIATE CORE AND LE STRETCHING AND STRENGTHENING PROGRAM TO MINIMIZE RISK OF REOCCURRENCE. Goal Time Frame: 4-6 Weeks Rehabilitation Potential Physical Therapy Diagnosis: CORE AND LE STIFFNESS AND WEAKNESS Rehabilitation Potential: Good Anticipated Interventions Patient/Client Instruction: Educate patient on: Condition, Plan of Care and Risk Factors For the Purpose of:: To improve self management Therapeutic Exercise to Include: Strength training, Body mechanics, Postural training, Flexibilty training, Neuromotor development and Dynamic Lumbar Stabilization For the Purpose of:: To decrease pain, To improve nutrient delivery to tissue, To improve muscle performance and motor function, To increase tolerance to activity/condition/position, To improve ability of physical actions for home/community/work/leisure, To increase flexibility/ROM and To improve self management Text: Thank you for the opportunity to evaluate your patient. For Medicare and Medicare HMO plans, please review the plan of care and approve it. It will need to be FAXED BACK to us at [phone] for Medicare purposes. For Medicare only, by signing this I certify the plan of care. Please let me know if there are questions or concerns regarding this plan of care. Physician Signature: Date:
--- NOTE | 2024-11-15 12:48 | HP.PTDCSUM ---
Discharge Summary D/C summary: It has been my pleasure to treat LEONOR COYLE referred by Dr. Mracel Santos MD, with the diagnosis of LOW BACK PAIN for a total of 9 visit(s). Discharge Date: 11/15/24 Please see the following information for a summary of their discharge status. Subjective Subjective: I FEEL LIKE THE THERAPY IS HELPING. PATIENT REPORTS HIS PAIN IS VERY INTERMITTENT AND IF HE MOVES IT USUALLY WORKS IT OUT. HE REPORTS HE IS HAVING LESS EPISODES OF PAIN SINCE STARTING PT. FOLLOW UP PENDING WITH DR. SANTOS IN NOV 2024 AFTER RETURN FROM BEING OUT OF TOWN. PATIENT REPORTS HE IS GOING OUT OF TOWN FROM 11/27/24 TO 12/09/24 Pain Left Back: Pain Intensity (Out of 10): 0 Overall Improvement % Improvement: 50 Objective Objective/Function: PATIENT WAS SEEN TODAY FOR RE-ASSESSMENT OF PROGRESS TOWARD THE SET PT GOALS AND THE NEED FOR FURTHER PHYSICAL THERAPY VS READINESS FOR DISCHARGE. THIS PATIENT IS REPORTING LESS FREQUENT EPISODES OF PAIN BUT OSWESTRY SCORE IS WORSE AND L LOW BACK PAIN IS EASILY PRODUCE WITH TESTING TODAY AND REMAINS WORSE A RESULT. NO CHANGE IN LE TESTING OR NEW LE SIGNS. PHYSICAIN RE-ASSESSMENT IS RECOMMENDED. PATIENT AGREEABLE. UPON EXAM TODAY: Strength: Abdulaziz LE's grossly 5/5. Other: patient is able to walk on toes and walk on heels without UE assist. Dural Signs: Negative Abdulaziz LE's. Lumbar mvmt loss: flex - MIN MOD - NE ext - MOD - NE R SG - MOD - P L BACK ON RETURN - NW L SG - MOD TO ADRY - P L BACK - REMAINS WORSE A RESULT. EVENTUALLY ABOLISHED IN SITTING BEFORE DEPARTURE. REINFORCEMENT OF PRIOR INSTRUCTIONS GIVEN FOR HEALTHY BACK AND POSTURE HABITS. PATIENT DEMONSTRATES/COMMUNICATES A GOOD UNDERSTANDING. Goals Goal 1:: DECREASE C/O L LB AND L LE SX'S BY AT LEAST 75% Goal Progress: Questionable Goal 2:: RESTORE PAINFREE LUMBAR ROM WITH ALL ADL'S Goal Progress: Not Met Goal 3:: PATIENT WILL BE INDEP WITH APPROPRIATE CORE AND LE STRETCHING AND STRENGTHENING PROGRAM TO MINIMIZE RISK OF REOCCURRENCE. Goal Progress: Partially Met Plan Plan: D/C TO HOME INSTRUCTIONS GIVEN, EX PROGRAM AND FOLLOW UP WITH DR. SANTOS. PATIENT AGREEABLE. D/C Information d/c sentence: If there are questions or concerns regarding this patient's physical therapy, please feel free to call me at [phone]. Thank you for the referral of this patient. Sincerely, Carolyn Vásquez, PT, Cert MDT Balance/Gait/Functional tests Balance/Special Test Scores Oswestry Low Back Score: 5 Improvement % Improvement: 50
== END 2024-11-15 19:00 | disposition home or self-care (01) ==
LOC: PT 11:30
PROVIDERS: PCP Family Medicine; Referring Provider Family Medicine; Visit Provider Family Medicine
DX: M54.50 Low back pain, unspecified (principal)
CPT/HCPCS: 97110; 97112; 97162; 97530

== ENCOUNTER 2024-12-21 21:59 | Emergency (ER) | payer MEDICARE, SELFPAY ==
[2019-11-08 06:42] VITALS: BMI 25.9
[2024-12-21 22:00] VITALS: BP 196/86; PULSE 69; RESP 15; TEMP 36.3; O2SAT 96; BMI 27.1
[2024-12-21 22:13] LABS: Mucous, Urine 0 SEEN /hpf (<or=2+); Squamous Epithelial Cells - UA 0 SEEN /hpf (0-5)
[2024-12-21 22:18] LABS: Color, Urine Straw (Yellow); Glucose, Dipstick Normal (Normal); Ketone-Dipstick Negative (Negative); Leukocyte Esterase-Dipstick 25 /ul (Negative); Nitrite-Dipstick Negative (Negative); Occult Blood-Urine 25 /ul (Negative); Protein-Dipstick 30 mg/dl (Negative); Specific Gravity, Urine 1.010 (1.002-1.030); Urine Bilirubin Dipstick Negative (Negative)
[2024-12-21 23:18] LABS: Red Blood Cells-Urine 0-5 SEEN /hpf (0-5)
[2024-12-22] VITALS: BP 144/74; PULSE 66; RESP 18; O2SAT 99
--- NOTE | 2024-12-22 00:39 | EDS_ITS ---
HPI History of Present Illness Chief Complaint: Complaint Narrative Narrative: Chief complaint and HPI: Dysuria and urinary retention. 79-year-old male with past medical history of BPH, atrial fibrillation on Eliquis, HTN, HLD, urolithiasis presents for evaluation of dysuria urinary retention. Patient states he has known hematuria. States he followed up with Dr. Shaffer for the hematuria in which he had a CT abdomen pelvis performed and cystoscopy. States the cystoscopy was unremarkable. States his CT abdomen pelvis showed a left kidney stone but no urolithiasis. States since this morning he has been having dysuria and states that he feels that he is not able to fully urinate. States he is still urinating. He denies any fever, chills, dominique pain, nausea, vomiting, back pain. Denies any penile or testicular pain. Review of systems: See HPI Medications: As listed on the chart Allergies: As listed on the chart PFSH: Per chart Vital signs: As listed on the chart. Reviewed. Physical exam: Gen: A&O x3, NAD Head: Normocephalic, atraumatic Eyes: No sclera icterus, conjunctiva clear ENT: Moist mucous membranes Neck: Trachea midline, No JVD CV: RRR, no murmurs, no peripheral edema Resp: Lungs CTA BL, no w/r/c GI: Abd soft, not distended, non-tender, no r/r/g : No CVA tenderness. Circumcised penis. No penile tenderness or discharge. No penile or testicular swelling. Normal lie and position of the testicles. No testicular tenderness, masses, or skin changes. Cremasteric reflexes intact and equal bilaterally. No rashes. No palpable hernias. Musc: Full ROM, no deformity Skin: Warm, dry Neuro: Alert, oriented, grossly intact, sensation intact Psych: Cooperative, appropriate mood and affect [facility] Medical History Bradycardia BPH (benign prostatic hyperplasia) Atherosclerotic heart disease of [place] coronary artery without angina pectoris Acne rosacea HARLEY on CPAP Kidney stones Hypertension Former smoker, stopped smoking in distant past Hyperlipidemia Home Medications ?Medication ?Instructions ?Recorded ?Last Taken ?Type aspirin 81 mg tablet,delayed 162 mg PO DAILY@0800 hear t health 01/22/14 03/22/24 History release acetaminophen 500 mg tablet 500 - 1,000 mg PO Q6H PRN PRN Pain 07/05/19 Unknown History Or Fever tamsulosin 0.4 mg capsule 0.4 mg PO BID prostate 07/0403/22/24 History doxycycline hyclate 20 mg tablet 20 mg PO BID infectio n 09/17/21 03/22/24 History losartan 50 mg tablet 50 mg PO DAILY blood pressur e 09/17/21 03/22/24 History apixaban 5 mg tablet (Eliquis) 5 mg PO BID blood thinn er #60 tabs 04/23/23 03/22/24 Rx coQ10 (ubiquinol) 100 mg capsule 100 mg PO DAILY suppl ement 05/05/23 03/22/24 History (CoQmax Ubiquinol) docusate sodium 100 mg capsule 100 mg PO DAILY stool s oftner 05/05/23 03/22/24 History (Col-Rite) glucosamine HCl 1,500 mg tablet 3,000 mg PO DAILY supp lement 05/05/23 03/22/24 History ivermectin 1 %-metronidazole 1 1 ea topical DAILY 04/2503/22/24 History %-niacinamide 4 % topical gel (Aveidaoxia) magnesium 200 mg tablet 400 mg PO DAILY supplement 0 05/05/23 03/22/24 History metoprolol tartrate 50 mg tablet 12.5 mg PO BID blood pressure 05/05/23 Unknown History (Lopressor) rosuvastatin 40 mg tablet (Crestor) 40 mg PO QHS raymundo sterol 05/05/23 03/21/24 History ranolazine 500 mg tablet,extended 500 mg PO BID heart 90 days #180 05/06/23 03/22/24 Rx release,12 hr tabs cholecalciferol (vitamin D3) 50 50 mcg PO DAILY vitami n 03/21/24 03/22/24 History mcg (2,000 unit) capsule (Vitamin D3) metoprolol tartrate 25 mg tablet 25 mg PO BID blood pr essure 03/21/24 03/22/24 History tumeric curcumin complex 03/21/24 Unknown History Allergy/AdvReac Type Severity Reaction Status Date / Time No Known Allergies Allergy Verified 12/21/24 22:00 Family History Father Hypertension Mother Cancer Kidney stones Surgical History S/P triple vessel bypass Hx of tonsillectomy H/O lithotripsy H/O hernia repair Social History household members: spouse Smoking Status: Former smoker how long ago did patient quit smoking: Quit in the 1970s. alcohol intake: current alcohol intake frequency: holidays/special occasions o nly substance use type: does not use EXAM Physical Exam Const Vital Signs: 12/21/24 22:00 12/22/24 00:00 Temperature 97.4 F L Temperature Source Temporal Pulse Rate 69 66 Respiratory Rate 15 18 Blood Pressure 196/86 H 144/74 H Blood Pressure Mean 122 97 Pulse Ox 96 99 Oxygen Delivery Method Room Air Room Air MDM MDM MDM Narrative Medical decision making narrative: 79-year-old male with past medical history of BPH, atrial fibrillation on Eliquis, HTN, HLD, urolithiasis presents for evaluation of dysuria urinary retention. Patient states he has known hematuria. States he followed up with Dr. Shaffer for the hematuria in which he had a CT abdomen pelvis performed and cystoscopy. On chart review, I reviewed the CT abdomen pelvis that showed a left kidney stone but no urolithiasis. I was unable to find the cystoscopy results. Differential diagnosis includes but is not limited to UTI, urinary retention, hematuria. Low suspicion for urolithiasis given he denies any abdominal pain or back pain. Per triage protocol, UA was obtained. Patient is urinary tract infection. Urine culture sent. Will obtain basic labs and bladder scan to make sure that patient is not retaining or having any kidney dysfunction. Bladder scan 201. Patient not retaining urine. CBC without leukocytosis. BMP without THIERNO. Patient's symptoms are secondary to UTI. Given that he does have cystoscopy will cover him broadly with Levaquin. First dose given here. Follow-up with urology. He confirmed understand the plan. Patient stable to discharge home. Impression: 1. UTI 2. Hematuria with history of hematuria Lab Data Labs: Laboratory Results - last 24 hr 12/21/24 12/22/24 22:00 00:42 WBC 10.9 RBC 5.31 Hgb 16.7 H Hct 49.3 MCV 92.8 MCH 31.5 MCHC 33.9 RDW Std Deviation 42.0 RDW Coeff of [place] 12.2 Plt Count 225 MPV 9.2 Immature Gran % (Auto) 0.300 Neut % (Auto) 76.2 H Lymph % (Auto) 9.3 L [place] % (Auto) 12.6 H Eos % (Auto) 1.0 Baso % (Auto) 0.6 Absolute Neuts (auto) 8.3 H Absolute Lymphs (auto) 1.01 Nucleated RBC % 0 Sodium 138 Potassium 4.3 Chloride 102 Carbon Dioxide 25.5 Anion Gap 10 BUN 23 H Creatinine 0.95 Estim Creat Clear Calc 59.92 Est GFR (MDRD) Non-Af 82 BUN/Creatinine Ratio 23.8 H Glucose 99 Calcium 8.9 Urine Color Straw Urine Clarity Clear Urine pH 7.0 Ur Specific [place] 1.010 Urine Protein 30 H Urine Glucose (UA) Normal Urine Ketones Negative Urine Occult Blood 25 H Urine Nitrite Negative Urine Bilirubin Negative Urine Urobilinogen Normal Ur Leukocyte Esterase 25 H Urine RBC 0-5 SEEN Urine WBC 5-10 SEEN Ur Squamous Epith Cells 0 SEEN Amorphous Sediment 1+ Urine Bacteria 2+ Urine Mucus 0 SEEN Discharge Plan Triage Chief Complaint: Complaint ED Provider: Eitan Peraza Dx/Rx/DC Orders Prescriptions: No Action aspirin 81 MG tablet 162 mg PO DAILY@0800 acetaminophen 500 MG tablet 500 - 1,000 mg PO Q6H PRN PRN (Reason: Pain Or Fever) tamsulosin 0.4 MG capsule 0.4 mg PO BID losartan 50 mg tablet 50 mg PO DAILY Patient Comments: Take 1 tablet by mouth once daily. doxycycline hyclate 20 mg tablet 20 mg PO BID Eliquis 5 mg tablet 5 mg PO BID Qty: 60 0RF metoprolol tartrate [Lopressor] 50 mg tablet 12.5 mg PO BID Patient Comments: pt has been taking 25mg BID last few days [id number] [Aveidaoxia] 1-1-4 % gel 1 ea topical DAILY rosuvastatin [Crestor] 40 mg tablet 40 mg PO QHS docusate sodium [Col-Rite] 100 mg capsule 100 mg PO DAILY magnesium 200 mg tablet 400 mg PO DAILY glucosamine HCl 1,500 mg tablet 3,000 mg PO DAILY Rx Instructions: administer with a meal coQ10 (ubiquinol) [CoQmax Ubiquinol] 100 mg capsule 100 mg PO DAILY ranolazine 500 mg Tablet Extended Release 12 Hr 500 mg PO BID 90 Days Qty: 180 0RF cholecalciferol (vitamin D3) [Vitamin D3] 50 mcg (2,000 unit) capsule 50 mcg PO DAILY tumeric curcumin complex Patient Comments: 500mg daily metoprolol tartrate 25 mg tablet 25 mg PO BID Primary Care Provider: Marcel Santos Referrals: Marcel Santos MD [Primary Care Provider] - Print Language: [place]ian
[2024-12-22 00:49] LABS: Hematocrit 49.3 % (40-54); Hemoglobin 16.7 g/dL (13.0-16.5); Immature Granulocytes Count 0.030 X10^3/uL (0.0-0.0); Mean Corp Hgb Conc 33.9 g/dL (32-36); Mean Corpuscular Volume 92.8 fL (80-94); Mean Platelet Vol. 9.2 fl (6.2-12.0); NRBC Flagged by Analyzer 0 % (0-5); Platelet Count 225 K/mm3 (150-450); RBC Distribution Width CV 12.2 % (11.6-14.6); RBC Distribution Width SD 42.0 fl (35.1-43.9); Red Blood Count 5.31 M/mm3 (4.6-6.2); White Blood Count 10.9 K/mm3 (4.4-11.0)
[2024-12-22 01:20] LABS: Anion Gap 10 (5-15); BUN 23 mg/dL (4-19); BUN/Creat Ratio 23.8 RATIO (10-20); Calcium,Total 8.9 mg/dL (7.6-11.0); Carbon Dioxide 25.5 mmol/L (21.0-32.0); Chloride 102 mmol/L (98-108); Estimated Creatinine Clearance 59.92 ml/min (50-250); Glucose 99 mg/dL (70-99); Potassium 4.3 mmol/L (3.3-5.1)
--- OUTSIDE RECORDS SUMMARY | 2024-12-22 01:47 | XMS RPT_ITS | CCD ---
Author Organization [facility]ini[facility] Care Team Providers Care Offal Separator Name Role Phone Bella Santos MD Primary Care Provider Dr. Bella Santos Primary Care Provider Dr. Km Cosme Emergency Provider Dr. Sammie Clarke Attending Provider Dr. Sammie Clarke Admit Provider Dr. Sammie Clarke Other Provider Dr. Archie Sanders Attending Provider Dr. Archie Sanders Other Provider Dr. Drake House Other Provider Unavailable Dr. Drake House Attending Provider Unavailable Bella Santos MD Primary Care Provider Bella Santos MD Primary Care Provider Tannhof REAL ESTATE LOAN OFFICER.MUSEUM INFORMATICS SPECIALIST, Yazmin Unavailable Mukul REAL ESTATE LOAN OFFICER.MUSEUM INFORMATICS SPECIALIST, Magen Unavailable Tannhof REAL ESTATE LOAN OFFICER.MUSEUM INFORMATICS SPECIALIST, Yazmin Unavailable Unavail able Tannhof REAL ESTATE LOAN OFFICER.MUSEUM INFORMATICS SPECIALIST, Yazmin Unavailable Dr. Bella Santos MD Primary Care Provider Edmund DEL CASTILLO, Dr. Kiran Clark Attending Provider [phone] Edmund DEL CASTILLO, Dr. Kiran Clark Referring Provider Dr. Bella Santos MD Attending Provider Dr. Bella Santos MD Referring Provider Dr. Bella Santos MD Attending Provider Dr. Bella Santos MD Referring Provider [phone] Tony Garay Attending Unavailable Mostmaciel Darrell Consulting Unavailable Mosteller, Darrell Admitting Unavailable Elderbrock, Bella Primary Care Unavailable Tony Garay Consulting Unavailable ElderbrockBella Attending Unavailable Elderbrock, Bella Referring Unavailable Elderbrock, Bella Primary Care Unavailable Elderbrock, Bella Primary Care Unavailable EdmundKiran Attending Unavailable EdmundKiran Referring Unavailable Tony Garay Attending Unavailable Mostmaciel, Darrell Admitting Unavailable Mosteller, Darrell Consulting Unavailable Elderbrock, Bella Primary Care Unavailable Vinay Beavers Attending Unavailable Mostmaciel, Darrell Referring Unavailable Elderbrock, Bella Primary Care Unavailable Elderbrock, Bella Primary Care Unavailable EdmundKiran Attending Unavailable Edmund, Kiran Clark Referring Unavailable Darrell Hilton Attending Unavailable ELDERBROCK, BELLA D Referring Unavailable ELDERBROCK, BELLA D Primary Care Unavailable TESTRAKE, MARLY Attending Unavailable ELDERBROCK, BELLA D Referring Unavailable ELDERBROCK, BELLA D Primary Care Unavailable TESTRAKE, MARLY Attending Unavailable TESTRAKE, MARLY Referring Unavailable ELDERBROCK, BELLA D Primary Care Unavailable TESTRAKE, MARLY Attending Unavailable TESTRAKE, MARLY Referring Unavailable ELDERBROCK, BELLA D Primary Care Unavailable ELDERBROCK, BELLA D Referring Unavailable ELDERBROCK, BELLA D Primary Care Unavailable TESTRAKE, MARLY Attending Unavailable TESTRAKE MARLY Referring Unavailable ELDERBROCK, BELLA D Primary Care Unavailable ELDERBROCK, BELLA D Attending Unavailable ELDERBROCK, BELLA D Referring Unavailable ELDERBROCK, BELLA D Primary Care Unavailable TESTRAKEMARLY Attending Unavailable TESTRAKEMARLY Referring Unavailable ELDERBROCK, BELLA D Primary Care Unavailable ELDERBROCK, BELLA D Attending Unavailable ELDERBROCK, BELLA D Primary Care Unavailable TESTRAKE, MARLY Attending Unavailable TESTRAKE, MARLY Referring Unavailable ELDERBROCK, BELLA D Primary Care Unavailable ELDERBROCK, BELLA D Referring Unavailable ELDERBROCK, BELLA D Primary Care Unavailable ELDERBROCK, BELLA D Attending Unavailable ELDERBROCK, BELLA D Primary Care Unavailable DRAKE AGARWAL Attending Unavailable DRAKE AGARWAL Referring Unavailable ELDERBROCK, BELLA D Primary Care Unavailable ELDERBROCK, BELLA D Attending Unavailable ELDERBROCK, BELLA D Primary Care Unavailable DRAKE AGARWAL Attending Unavailable DRAKE AGARWAL Referring Unavailable BELLA SANTOS Primary Care Unavailable Medications Current Medications Medication Drug Class(es) Dates Sig (Normalized) Sig (Original) acetaminophen 500 mg oral tablet (20 sources) Start: 07-05-2019 take 500-1000 mg by mouth every six hours as needed for pain Acetaminophen 500 MG tablet Active 500 - 1000 mg PO EVERY 6 HOURS NEEDED as needed for Pain Or Fever July 05, 2019 12:00am Start: 06-11-2019 take 2 tablets by [facility] every six hours acetaminophen (TYLENOL) 500 mg tablet Take 2 tablets by mouth every 6 hours. 06/11/2019 Active Comment on above: Take 2 tablets by [facility] every 6 hours. amiodarone hydrochloride 200 mg oral tablet (1 source) Antiarrhythmic Start: 06-12-19 End: 05-07-19 take 1 tablet by mouth once daily amiodarone (PACERONE) 200 mg tablet Take 1 tablet by mouth once daily. 30 tablet 1 06/12/2019 05/07/2024 Discontinued apixaban 5 mg oral tablet (20 sources) Factor Xa Inhibitor Start: 04-23-20 End: 04-16-20 24 take 1 tablet by mouth twice daily ELIQUIS 5 mg tab(s) Indications: New onset a-fib (HCC) Take 1 tablet by mouth two times a day. 180 tablet 3 04/17/2024 Active Comment on above: Take 1 tablet by [facility] two times a day. aspirin 81 mg delayed release oral tablet (20 sources) Platelet Aggregation Inhibitor, Nonsteroidal Anti-inflammatory Drug Start: 01-23-20 14 take 2 tablets by mouth once daily aspirin, enteric coated (ASPIRIN, ENTERIC COATED) 81 mg EC tablet Take 2 tablets by mouth once daily. 06/11/2019 Active Start: 01-22-2014 take 162 mg by mouth once bridgette y Aspirin Active 162 MG PO DAILY@0800 January 21, 2014 11:00pm Comment on above: Take 2 tablets by [facility] once daily. cholecalciferol 0.05 mg oral capsule (20 sources) Vitamin D Start: 03-21-20 24 take 1 capsule by mouth once daily Cholecalciferol (Vitamin D3) (Vitamin D3) 50 mcg (2,000 unit) capsule Active 50 ug PO DAILY March 21, 2024 1:00am vitamin Start: 11-27-2019 End: 10-08-2024 take 1 capsule by mouth once daily Cholecalciferol, Vitamin D3, 50 mcg (2,000 unit) cap Indications: Nerve pain Take 1 capsule by mouth once daily. 90 capsule 3 10/09/2024 Active Comment on above: Take by mouth. docusate sodium 100 mg oral capsule (20 sources) Start: 05-05-2023 take 1 capsule by mouth once daily Docusate Sodium (Col-Rite) 100 mg capsule Active 100 mg PO DAILY May 05, 2023 1:00am stool softner Docusate Sodium 100 mg tab Take by mouth. Active Comment on above: Take by mouth. doxycycline hyclate 20 mg oral tablet (20 sources) Tetracycline-cla ss Drug Start: 09-17-2021 take 1 tablet by mouth twice daily doxycycline 20 mg tablet Take 1 tablet by mouth twice daily. 02/01/2022 Active Start: 05-28-2021 End: 11-24-2021 take 1 tablet by mouth twice daily doxycycline (VIBRA-TABS) 100 mg tablet Take 1 tablet by mouth twice daily. 180 tablet 1 05/28/2021 11/24/2021 Active Start: 03-02-2021 End: 03-12-2021 take 1 tablet by mouth twice daily doxycycline (VIBRA-TABS) 100 mg tablet Indications: Rosacea Take 1 tablet by mouth twice daily for 10 days. 20 tablet 03/02/2021 03/12/2021 Comment on above: Take 1 tablet by antonio th twice daily. glucosamine hydrochloride 1500 mg oral tablet (4 sources) Start: 05-05-2023 take 2 tablets by mouth once daily Glucosamine Hcl 1,500 mg tablet Active 3000 mg PO DAILY May 05, 2023 1:00am supplement administer with a meal Start: 05-05-2023 take 3000 mg by mout h once daily Glucosamine Hcl Active 3000 MG PO DAILY May 05, 2023 12:00am administer with a meal glucosamine HCl/chondroitin harris (GLUCOSAMINE-CHONDROITIN ORAL) (9 sources) take 1 tablet by mouth twice daily glucosamine HCl/chondroitin harris (GLUCOSAMINE-CHONDROITIN ORAL) Take 1 tablet by mouth two times a day. Active Atarmxzlwz-Oavwxqaratku-Iejk in (Aveidaoxia) 1-1-4 % gel (4 sources) Start: 024 Uxodtametg-Wwwvvmvejutm-Mdei in (Aveidaoxia) 1-1-4 % gel Active 1 NMA TOPICAL DAILY May 05, 2023 1:00am Start: 05-05-2023 Ivermectin-Met ronidazol-Niacin (Aveidaoxia) 1-1-4 % gel Active 1 EACH TOPICAL DAILY May 05, 2023 12:00am losartan potassium 50 mg oral tablet (20 sources) Angiotensin 2 Receptor Arabella Start: 05-06-2022 take 1 tablet by mouth once daily losartan (COZAAR) 100 mg tablet Indications: Essential hypertension Take 1 tablet by mouth once daily. 90 tablet 3 05/06/2022 Active Start: 08-31-2021 End: 10-11-2025 take 1 tablet by mouth once daily losartan (COZAAR) 50 mg tablet Indications: Essential hypertension Take 1 tablet by mouth once daily. 90 tablet 3 10/16/2024 10/11/2025 Active Comment on above: Take 1 tablet by antonio once daily. Magnesium (15 sources) Start: 05-05-2023 take 2 tablets by mouth once daily Magnesium 200 mg tablet Active 400 mg PO DAILY May 05, 2023 1:00am supplement Start: 05-05-2023 take 400 mg by mouth once daily Magnesium Active 400 MG PO DAILY May 05, 2023 12:00am End: 11-29-2023 take 400 mg by mouth once daily MAGNESIUM ORAL Take 400 mg by mouth once daily. 0 11/29/2023 Discontinued (Duplicate Entry) take 400 mg by mouth once daily MAGNESIUM ORAL Take 400 mg by mouth once daily. 0 Active Comment on above: Take 400 mg by mouth once daily. magnesium oxide 400 mg oral capsule (20 sources) Start: 08-16-2023 End: 10-08-2024 take 1 capsule by mouth once daily magnesium oxide 400 mg magnesium cap Indications: Nerve pain Take 1 capsule by mouth once daily. 90 capsule 3 10/09/2024 Active metoprolol tartrate 25 mg oral tablet (20 sources) beta-Adrenergic Arabella Start: 03-29-2024 End: 05-07-2025 take 1 tablet by mouth once daily metoprolol tartrate, short acting, (LOPRESSOR) 25 mg tablet Indications: 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 , Paroxysmal atrial fibrillation (HCC) Take 1 tablet by mouth once daily. 90 tablet 3 05/07/2024 05/09/2024 Discontinued Start: 03-21-2024 End: 10-28-2024 take 1 tablet by mouth twice daily metoprolol tartrate, short acting, (LOPRESSOR) 25 mg tablet Indications: 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 , Paroxysmal atrial fibrillation (HCC) Take 1 tablet by mouth two times a day. 180 tablet 3 10/29/2024 Active Start: 11-29-2023 End: 03-29-2024 take 0.5 tablet by mouth twice daily metoprolol tartrate, short acting, (LOPRESSOR) 25 mg tablet Indications: Paroxysmal atrial fibrillation (HCC) , 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 Take 0.5 tablets by mouth two times a day. 11/29/2023 03/29/2024 Discontinued Start: 05-09-2023 End: 11-29-2023 take 1 tablet by mouth twice daily metoprolol tartrate, short acting, (LOPRESSOR) 25 mg tablet Indications: 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 , Paroxysmal atrial fibrillation (HCC) Take 1 tablet by mouth two times a day. 180 tablet 3 05/09/2023 11/29/2023 Discontinued Start: 05-05-2023 Metoprolol Tar trate (Lopressor) 50 mg tablet Active 12.5 mg PO TWICE A DAY May 05, 2023 1:00am blood pressure Start: 05-05-2023 take 1 tablet by antonio th twice daily Metoprolol Tartrate (Lopressor) 50 mg tablet Active 50 MG PO TWICE A DAY May 05, 2023 12:00am Start: 08-25-2021 End: 08-23-2022 take 1 tablet by mouth every twelve hours metoprolol tartrate, short acting, (LOPRESSOR) 50 mg tablet Take 1 tablet by mouth q 12 HR. 180 tablet 3 08/23/2022 Active Start: 11-27-2019 End: 05-05-2023 take 1 tablet by mouth twice daily Metoprolol Tartrate 25 MG tablet Discontinued 25 mg PO TWICE A DAY November 27, 2019 12:00am May 05, 2023 3:53pm heart Start: 06-25-2019 End: 08-25-2021 metoprolol tartrate, short a cting, (LOPRESSOR) 25 mg tablet TAKE 1 TABLET EVERY 12 HOURS 180 tablet 3 06/30/2020 06/29/2021 Discontinued Comment on above: Take 1 tablet by antonio th q 12 HR. Take 1 tablet by antonio th two times a day. nirmatrelvir tablet 300 mg (150 mg x 2) and ritonavir tablet 100 mg in a dose pack (PAXLOVID) (1 source) Start: 3 End: 3 nirmatrelvir tablet 300 mg (150 mg x 2) and ritonavir tablet 100 mg in a dose pack (PAXLOVID) Indications: COVID Administer TWO pink nirmatrelvir 150 mg tablets and ONE white ritonavir 100 mg tablet for a total of three tablets twice daily. 30 tablet 0 10/22/2022 10/27/2022 Active Comment on above: Administer TWO pink nirmatrelvir 150 mg tablets and ONE white ritonavir 100 mg tablet for a total of three tablets twice daily. 12 hr ranolazine 500 mg extended release oral tablet (20 sources) Anti-anginal Start: 4 End: 5 take 1 tablet by mouth once daily ranolazine ER (RANEXA) 500 mg 12 hr tablet Take 1 tablet by mouth once daily. 03/29/2024 05/07/2024 Discontinued Start: 05-06-2023 End: 11-29-2023 take 1 tablet by mouth twice daily Ranolazine 500 mg Tablet Extended Release 12 Hr Active 500 mg PO TWICE A DAY 180 90 0 May 06, 2023 1:00am heart Comment on above: 500 mg two times a d ay. Take 1 tablet by antonio th two times a day. rosuvastatin calcium 40 mg oral tablet (20 sources) HMG-CoA Reductase Inhibitor Start: 2 End: 6 take 1 tablet by mouth once daily at bedtime rosuvastatin (CRESTOR) 40 mg tablet Indications: Dyslipidemia Take 1 tablet by mouth daily at bedtime. 90 tablet 3 08/20/2024 08/20/2025 Active Comment on above: Take 1 tablet by antonio th daily at bedtime. tamsulosin hydrochloride 0.4 mg oral capsule (20 sources) alpha-Adrenergic Arabella Start: 0 take 1 capsule by mouth twice daily tamsulosin ER (FLOMAX) 0.4 mg Take 1 capsule by mouth twice daily. Dr. Shaffer. 12/06/2019 Active Comment on above: Take 1 capsule by [facility] twice daily. Dr. Shaffer. tumeric curcumin complex (2 sources) Start: 4 tumeric curcumin complex Active March 21, 2024 1:00am Turmeric extract (20 sources) TURMERIC ORAL Ta ke by mouth once daily. Active TURMERIC ORAL Ta ke by mouth once daily. 0 Active Comment on above: Take by mouth once d aily. ubiquinol 100 mg oral capsule (4 sources) Start: 05-05-2023 take 1 capsule by mouth once daily Coq10 (Ubiquinol) (Coqmax Ubiquinol) 100 mg capsule Active 100 mg PO DAILY May 05, 2023 1:00am supplement Completed/Discontinued Medications Medication Drug Class(es) Dates Sig (Normalized) Sig (Original) acetaminophen 325 mg / HYDROcodone bitartrate 5 mg oral tablet (7 sources) Opioid Agonist Start: 05-25-2019 End: 05-30-2019 Hydrocodone-Acetami nophen 1 EACH tablet Discontinued 1 NMA PO EVERY 4 HOURS NEEDED as needed for pain] 14 5 0 May 25, 2019 May 29, 2019 1:00am May 30, 2019 1:08am Personal history of urinary calculi Start: 05-25-2019 End: 05-30-2019 Hydrocodone-Acetaminophen Di scontinued 1 EACH PO EVERY 4 HOURS NEEDED 14 5 May 25, 2019 May 30, 2019 12:08am acetaminophen 325 mg / oxyCODONE hydrochloride 5 mg oral tablet (7 sources) Opioid Agonist Start: 05-13-2019 End: 05-16-2019 Oxycodone-Acetaminophen 1 TABLET tablet Discontinued 1 {tbl} PO EVERY 6 HOURS NEEDED as needed for Pain 12 3 0 May 13, 2019 May 15, 2019 1:00am May 16, 2019 1:07am Calculus of kidney Calculus of kidney Start: 05-13-2019 End: 05-16-2019 take 1 tablet by mouth every six hours as needed Oxycodone-Acetaminophen Discontinued 1 TABLET PO EVERY 6 HOURS NEEDED 12 3 May 13, 2019 May 16, 2019 12:07am atorvastatin 40 mg oral tablet (13 sources) HMG-CoA Reductase Inhibitor Start: 06-25-2019 End: 08-31-2021 atorvastatin (LIPITOR) 40 mg tablet TAKE 1 TABLET DAILY AT BEDTIME 90 tablet 3 06/30/2020 07/27/2021 Discontinued Start: 01-22-2014 End: 05-05-2023 take 4 tablets by mouth at bedtime Atorvastatin 10 MG tablet Discontinued 40 mg PO AT BEDTIME January 22, 2014 12:00am May 05, 2023 4:00pm cholesterol Start: 01-22-2014 End: 05-05-2023 take 40 mg by mouth at bedtime Atorvastatin Discontinu ed 40 MG PO AT BEDTIME January 21, 2014 11:00pm May 05, 2023 3:00pm Comment on above: Take 1 tablet by antonio th daily at bedtime. azelaic acid 0.15 mg/mg topical gel (20 sources) Start: 09-17-2021 End: 05-05-2023 Azelaic Acid 15 % gel Discontinued 1 NMA TOPICAL TWICE A DAY September 17, 2021 12:00am May 05, 2023 4:00pm apply to face Start: 05-28-2021 End: 05-05-2023 Azelaic Acid Discontinued 1 APPLIC TOPICAL TWICE A DAY September 16, 2021 11:00pm May 05, 2023 3:00pm apply to face Comment on above: Apply 1 application to affected area twice daily. Use a pea-sized amount for the face. docusate sodium 50 mg / sennosides, residential 8.6 mg oral tablet (7 sources) Start: 07-05-2019 End: 05-05-2023 Sennosides-Docusate Sodium 1 EACH tablet Discontinued 1 NMA PO TWICE A DAY July 05, 2019 12:00am May 05, 2023 4:00pm bowel care Start: 07-05-2019 End: 05-05-2023 Sennosides-Docusate Sodium D iscontinued 1 EACH PO TWICE A DAY July 04, 2019 11:00pm May 05, 2023 3:00pm FLUoxetine 20 mg oral capsule (3 sources) Serotonin Reuptake Inhibitor Start: 08-16-2023 End: 11-29-2023 take 1 capsule by mouth once daily FLUoxetine (PROZAC) 20 mg capsule Indications: Anxiety and depression Take 1 capsule by mouth once daily. 30 capsule 5 08/16/2023 11/29/2023 Discontinued (Discontinued by Patient) hydrocortisone 25 mg/ml topical cream (10 sources) Corticosteroid Start: 11-09-2022 End: 08-16-2023 hydrocortisone (ANUSOL-HC) 2.5 % rectal cream by RECTAL route twice daily. 28 g 2 11/09/2022 08/16/2023 Discontinued Comment on above: by RECTAL route twic e daily. lisinopril 10 mg oral tablet (3 sources) Angiotensin Converting Enzyme Inhibitor Start: 08-03-2021 End: 01-30-2022 take 1 tablet by mouth once daily lisinopril (ZESTRIL, PRINIVIL) 10 mg tablet Take 1 tablet by mouth once daily. 30 tablet 5 08/03/2021 08/31/2021 Discontinued (Side Effects) Comment on above: Take 1 tablet by antonio once daily. loratadine 10 mg oral tablet (1 source) Start: 12-06-2019 End: 05-01-2020 take 1 tablet by mouth once daily loratadine (CLARITIN) 10 mg tablet Take 1 tablet by mouth once daily. 12/06/2019 05/01/2020 Discontinued meloxicam 15 mg oral tablet (1 source) Nonsteroidal Anti-inflammatory Drug Start: 11-04-2020 End: 01-06-2021 take 1 tablet by mouth once daily at mealtime meloxicam (MOBIC) 15 mg tablet Indications: Acute pain of right knee Take 1 tablet by mouth once daily. Take with food. 15 tablet 1 11/04/2020 01/06/2021 Discontinued metroNIDAZOLE 0.01 mg/mg topical gel (2 sources) Nitroimidazole Antimicrobial Start: 04-29-2020 End: 05-28-2021 metroNIDAZOLE 1 % gel Indications: Rosacea Apply 1 application to affected area once daily. Location: Face 60 g 1 04/29/2020 05/28/2021 Discontinued (Lack of Efficacy) omeprazole 20 mg delayed release oral capsule (20 sources) Proton Pump Inhibitor Start: 03-03-2020 End: 05-12-2023 take 1 capsule by mouth once daily Omeprazole 20 MG capsule Discontinued 20 mg PO DAILY March 08, 2020 1:00am May 05, 2023 4:01pm Comment on above: Take 1 capsule by [facility] daily before breakfast. 1/2 hr before meal. oxyCODONE hydrochloride 5 mg oral tablet (7 sources) Opioid Agonist Start: 06-15-2022 End: 03-21-2024 take 1 tablet by mouth every six hours as needed for pain Oxycodone 5 mg tablet Discontinued 5 mg PO EVERY 6 HOURS as needed for pain 12 3 0 June 15, 2022 March 21, 2024 11:07pm Sprain of right knee Internal derangement of knee Sprain of unspecified site of right knee, initial encounter Unspecified internal derangement of unspecified knee sennosides/docusate sodium (COLACE 2-IN-1 ORAL) (20 sources) End: 03-29-2024 sennosides/docusate sodium (COLACE 2-IN-1 ORAL) Take by mouth. 03/29/2024 Discontinued (Duplicate Entry) sennosides/docus ate sodium (COLACE 2-IN-1 ORAL) Take by mouth. Active sennosides/docus ate sodium (COLACE 2-IN-1 ORAL) Take by mouth. 0 Active Comment on above: Take by mouth. sertraline 50 mg oral tablet (13 sources) Serotonin Reuptake Inhibitor Start: End: take 3 tablets by mouth once daily sertraline (ZOLOFT) 50 mg tablet Indications: Depression, unspecified depression type Take 3 tablets by mouth once daily. 90 tablet 5 06/13/2023 08/16/2023 Discontinued Start: 05-17-2023 End: 06-13-2023 take 1 tablet by mouth once daily sertraline (ZOLOFT) 100 mg tablet Indications: Depression, unspecified depression type Take 1 tablet by mouth once daily. 30 tablet 5 05/17/2023 06/13/2023 Discontinued Start: 05-05-2023 End: 03-21-2024 take 1 tablet by mouth once daily Sertraline 50 mg tablet Discontinued 50 mg PO DAILY May 05, 2023 1:00am March 21, 2024 11:08pm mental health Comment on above: [facility] once daily. sulfacetamide sodium 98 mg/ml / sulfur 48 mg/ml topical lotion (1 source) Sulfonamide Antibacterial Start: 01-15-2019 End: 04-29-2020 sulfacetamide sodium-sulfur 9.8-4.8 % lotn Indications: Rosacea Apply thin film to affected area 1 times daily. 01/15/2019 04/29/2020 Discontinued Problems Active Problems Problem Classification Problem Date Documented Date Episodic/Chronic Acquired foot deformities (1 source) Talipes planus; Translations: [Flat foot [pes planus] (acquired), right foot] Episodic Anxiety disorders (3 sources) Mixed anxiety and depressive disorder; Translations: [Anxiety disorder, unspecified] 08-16-2023 Chronic Calculus of urinary tract (20 sources) Ureteric colic; Translations: [Unspecified renal colic] 05-14-2019 Episodic Cardiac dysrhythmias (20 sources) Atrial fibrillation; Translations: [Unspecified atrial fibrillation] Onset: 05-06-2023 04-23-2023 Chronic Cardiac dysrhythmias (12 sources) Tachycardia; Translations: [Tachycardia, unspecified] Episodic Complication of device; implant or graft (20 sources) Arteriosclerosis of coronary artery bypass graft; Translations: [Atherosclerosis of coronary artery bypass graft(s) without angina pectoris] Onset: 06-05-2019 06-30-2020 Chronic Conditions associated with dizziness or vertigo (1 source) Lightheadedness; Translations: [Dizziness and giddiness] 06-03-2023 Episodic Coronary atherosclerosis and other heart disease (15 sources) Coronary arteriosclerosis; Translations: [Atherosclerotic heart disease of [place] coronary artery without angina pectoris] 11-27-2019 Chronic Disorders of lipid metabolism (20 sources) Dyslipidemia; Translations: [Hyperlipidemia, unspecified] Onset: 06-02-2019 06-02-2019 Chronic Esophageal disorders (4 sources) Gastroesophageal reflux disease without esophagitis; Translations: [Gastro-esophageal reflux disease without esophagitis] Chronic Essential hypertension (20 sources) Essential hypertension; Translations: [Essential (primary) hypertension] Onset: 01-12-2021 01-12-2021 Chronic Genitourinary symptoms and ill-defined conditions (2 sources) Gross hematuria; Translations: [Pepe hematuria] Onset: 11-06-2024 12-13-2024 Episodic Hemorrhoids (1 source) Hemorrhoids; Translations: [Unspecified hemorrhoids] 11-09-2022 Episodic Hyperplasia of prostate (10 sources) Benign prostatic hyperplasia; Translations: [Benign prostatic hyperplasia without lower urinary tract symptoms] 11-27-2019 Chronic Immunizations and screening for infectious disease (1 source) Patient encounter status; Translations: [Encounter for immunization] 06-11-2024 Episodic Joint disorders and dislocations; trauma-related (7 sources) Derangement of knee; Translations: [Unspecified internal derangement of unspecified knee] 06-15-2022 Chronic Mood disorders (1 source) Depressive disorder; Translations: [Depression, unspecified depression type] 06-13-2023 Chronic Mycoses (2 sources) Onychomycosis; Translations: [Tinea unguium] Episodic Other aftercare (4 sources) Long-term current use of anticoagulant; Translations: [terminal makeup operator (current) use of anticoagulants] 05-05-2023 Episodic Other aftercare (2 sources) terminal makeup operator (current) use of anticoagulants; Translations: [Long-term (current) use of anticoagulants] 05-06-2023 Episodic Other aftercare (1 source) Post-discharge follow-up; Translations: [Encounter for follow-up examination after completed treatment for conditions other than malignant neoplasm] 03-29-2024 Episodic Other aftercare (1 source) Removal of sutures done; Translations: [Encounter for removal of sutures] 06-11-2024 Episodic Other congenital anomalies (1 source) Porokeratosis; Translations: [Other specified congenital malformations of skin] 09-04-2024 Chronic Other congenital anomalies (1 source) Other specified congenital malformations of skin; Translations: [Porokeratosis] Onset: 09-04-2024 Chronic Other connective tissue disease (1 source) Pain of toe of left foot; Translations: [Pain in left toe(s)] Episodic Other connective tissue disease (1 source) Pain of toe of right foot; Translations: [Pain in right toe(s)] Episodic Other connective tissue disease (3 sources) Neuralgia; Translations: [Neuralgia and neuritis, unspecified] 08-16-2023 Episodic Other inflammatory condition of skin (20 sources) Rosacea; Translations: [Rosacea, unspecified] 01-15-2019 Chronic Other lower respiratory disease (20 sources) Dyspnea on exertion; Translations: [Dyspnea, unspecified] 12-27-2014 Episodic Other nervous system disorders (1 source) Other chronic pain; Translations: [Chronic left-sided low back pain without sciatica] Onset: 10-18-2024 Chronic Other nervous system disorders (1 source) Paresthesia of lower extremity; Translations: [Anesthesia of skin] 10-15-2024 Episodic Other non-traumatic joint disorders (1 source) Pain in right knee; Translations: [Pain in joint, lower leg] Episodic Other non-traumatic joint disorders (1 source) Pain in left knee; Translations: [Pain in joint, lower leg] 03-02-2021 Episodic Other nutritional; endocrine; and metabolic disorders (20 sources) Disorder of carbohydrate metabolism; Translations: [Other disorders of intestinal carbohydrate absorption] Onset: 06-22-2019 06-22-2019 Chronic Other upper respiratory disease (20 sources) Sore throat - chronic; Translations: [Chronic pharyngitis] Onset: 12-06-2019 12-06-2019 Chronic Other upper respiratory disease (1 source) Congestion of nasal sinus; Translations: [Nasal congestion] 03-29-2024 Episodic Pleurisy; pneumothorax; pulmonary collapse (1 source) Atelectasis; Translations: [Atelectasis] 03-12-2020 Episodic Residual codes; unclassified (20 sources) Obstructive sleep apnea syndrome; Translations: [Obstructive sleep apnea (adult) (pediatric)] 06-02-2019 Chronic Residual codes; unclassified (1 source) Obstructive sleep apnea (adult) (pediatric); Translations: [HARLEY on CPAP] Onset: 06-02-2019 Chronic Residual codes; unclassified (1 source) Transition of care; Translations: [Other specified health status] 03-29-2024 Episodic Screening and history of mental health and substance abuse codes (20 sources) Ex-smoker; Translations: [Personal history of nicotine dependence] Onset: 12-13-2024 12-27-2014 Episodic Spondylosis; intervertebral disc disorders; other back problems (6 sources) Acute low back pain; Translations: [Acute left-sided low back pain without sciatica] 01-06-2021 Episodic Sprains and strains (7 sources) Sprain of knee; Translations: [Sprain of unspecified site of right knee, initial encounter] 06-15-2022 Episodic Unclassified (1 source) Chronic left-sided low back pain without sciatica; Translations: [Chronic left-sided low back pain without sciatica] Onset: 10-18-2024 Past or Other Problems Problem Classification Problem Date Documented Da te Episodic/Chronic Coronary atherosclerosis and other heart disease (1 source) Presence of aortocoronary bypass graft; Translations: [Hx of CABG] Onset: 01-12-2021 Episodic Diabetes mellitus without complication (8 sources) Increased glucose level; Translations: [Other abnormal glucose] Onset: 06-11-2024 Episodic Nonspecific chest pain (20 sources) Pain of intercostal space; Translations: [Intercostal pain] Onset: 06-01-2019 Resolved: 06-11-2019 12-17-2019 Episodic Other screening for suspected conditions (not mental disorders or infectious disease) (20 sources) Pulmonary function studies abnormal; Translations: [Abnormal results of pulmonary function studies] Onset: 12-27-2014 12-27-2014 Episodic Viral infection (10 sources) Disease caused by 2019-nCoV; Translations: [COVID-19] Onset: 06-19-2024 Episodic Results Test Name Value Interpretation Reference Range Facility [facility] 12-13-2024 CNOV Office Visit (FAMPWS ) JOCELYN LOAIZA ([id number]) 1945 M Date Time Provider Department 12/13/24 9:40 AM [facility] During your visit today, we recorded the following information about you: Pulse Respiration Blood pressure Weight 72/minute 16/minute 122/74 77.1 kg Kenzie Prasad MA 12/13/2024 9:46 AM Signed Providers taking Dr. Santos's Patients when he retires in Feb. Dr. Holli Bosch Please call in to establish care with one of the providers list above. Will be due for follow up in 6 Months. Bella Santos MD 12/13/2024 6:03 PM Signed Chief Complaint Patient presents with: 6 Month Exam HPI Recording using [employer] software for draft documentation of the visit was discussed with the patient/authorized personal financial representative; all questions welcomed and answered. Patient/authorized personal financial representative agreed to proceed Jocelyn Loaiza is a 79-year-old male with a history of HTN, CAD, hematuria, AFib, and degenerative disc disease, presenting for follow-up. BP has been well controlled. Hiking without cardiac symptoms. Jocelyn reports a single episode of hematuria, which has not recurred. A recent CT scan showed no abnormalities in the kidneys or prostate. He is under the care of Dr. Shaffer, who has recommended a cystoscopy as part of the standard protocol for hematuria evaluation. Jocleyn expresses reluctance to undergo the procedure, questioning its necessity given the absence of recurrent symptoms. He also reports ongoing issues with lumbar degenerative disc disease. He has been participating in physical therapy and using the [facility] thomas, which provides home exercises. He notes improvement in his back pain over the past week and continues to engage in gym activities. He denies needing any medication refills at this time. Recent lab results show an A1c of 5.6%, a cholesterol level of 131 mg/dL, and a normal CBC. Current medications include Crestor 40 mg for hypercholesterolemia, losartan 50 mg for hypertension, Eliquis for AFib, and Lopressor 25 mg BID. Past medical history, appointments, medications, allergies reviewed. [...] Medication Sig metoprolol tartrate, short acting, (LOPRESSOR) 25 mg tablet Take 1 tablet by mouth two times a day. losartan (COZAAR) 50 mg tablet Take 1 tablet by mouth once daily. magnesium oxide 400 mg magnesium cap Take 1 capsule by mouth once daily. Cholecalciferol, Vitamin D3, 50 mcg (2,000 unit) cap Take 1 capsule by mouth once daily. glucosamine HCl/chondroitin harris (GLUCOSAMINE-CHONDROIT IN ORAL) Take 1 tablet by mouth two times a day. rosuvastatin (CRESTOR) 40 mg tablet Take 1 tablet by mouth daily at bedtime. ELIQUIS 5 mg tab(s) Take 1 tablet by mouth two times a day. Docusate Sodium 100 mg tab Take by mouth. TURMERIC ORAL Take by mouth once daily. doxycycline 20 mg tablet Take 1 tablet by mouth twice daily. tamsulosin ER (FLOMAX) 0.4 mg Take 1 capsule by mouth twice daily. Dr. Shaffer. acetaminophen (TYLENOL) 500 mg tablet Take 2 tablets by mouth every 6 hours. aspirin, enteric coated (ASPIRIN, ENTERIC COATED) 81 mg EC tablet Take 2 tablets by mouth once daily. [DISCONTINUED] furosemide (LASIX) 20 mg tablet Take 1 tablet by mouth once daily. (Patient not taking: Reported on 10/15/2024) No current facility-administered medications on file prior to visit. Social History SOCIAL HISTORY[1] EXAM: BP 122/74 Pulse 72 Resp 16 Wt 77.1 kg (169 lb 15.6 oz) BMI 26.23 kg/m? General Appearance: Well appearing, alert, in no acute distress, well-hydrated, well nourished.. Lungs: Lungs clear to auscultation. No wheezing, rhonchi, rales.. Heart: RRR without murmur, gallop, or rubs. No ectopy. Health Maintenance List Shingrix Vaccine(1 of 2) Never done RSV Vaccine(1 - 1-dose 75+ series) Never done Advance Directive Discussion due on 04/25/2024 Medicare Advantage Annual Wellness Visit Never done Depression Screening due on 11/28/2024 Anxiety Screening due on 11/28/2024 Hepatitis C Screeni (more content not included)... Normal [facility] CBC W Auto Differential pane l (Bld)on 12-11-2024 Basophils (Bld) [#/Vol] 0.07 10*3/uL Normal <0.11 [facility] Comment on above: Order Comment: Speci men Type: BLOOD SPECIMEN Ordering Facility: [facility] Address: [address] [place], [place] [address] Performed By: #### 5 7021-8 #### [facility] CLIA [id number] [address] [place] [address] [place] Basophils/100 WBC (Bld) 1.2 % Normal [facility] Comment on above: Order Comment: Speci men Type: BLOOD SPECIMEN Ordering Facility: [facility] Address: [address] [place] [address] Performed By: #### 5 7021-8 #### [facility] CLIA [id number] [address] [place] [address] [place] Differential cell count method Nom (Bld) Auto Normal [facility] Comment on above: Order Comment: Speci men Type: BLOOD SPECIMEN Ordering Facility: [facility] Address: [address] [place] [address] Performed By: #### 5 7021-8 #### [facility] CLIA [id number] [address] [place] [address] [place] Eosinophils (Bld) [#/Vol] 0.19 10*3/uL Normal <0.46 [facility] Comment on above: Order Comment: Speci men Type: BLOOD SPECIMEN Ordering Facility: [facility] Address: [address] [place] [address] Performed By: #### 5 7021-8 #### [facility] CLIA [id number] [address] [place] [address] [place] Eosinophils/100 WBC (Bld) 3.2 % Normal [facility] Comment on above: Order Comment: Speci men Type: BLOOD SPECIMEN Ordering Facility: [facility] Address: [address] [place] [address] Performed By: #### 5 7021-8 #### [facility] CLIA [id number] [address] [place] [address] [place] Erythrocyte distribution width (RBC) [Ratio] 12.4 % Normal 11.5-15.0 [facility] Comment on above: Order Comment: Speci men Type: BLOOD SPECIMEN Ordering Facility: [facility] Address: [address] [place] [address] Performed By: #### 5 7021-8 #### [facility] CLIA [id number] [address] [place] [address] [place] Hematocrit (Bld) [Volume fraction] 50.8 % Normal 39.0-51.0 [facility] Comment on above: Order Comment: Speci men Type: BLOOD SPECIMEN Ordering Facility: [facility] Address: [address] [place] [address] Performed By: #### 5 7021-8 #### [facility] CLIA [id number] [address] [place] [address] [place] Hemoglobin (Bld) [Mass/Vol] 16.9 g/dL Normal 13.0-17.0 [facility] Comment on above: Order Comment: Speci men Type: BLOOD SPECIMEN Ordering Facility: [facility] Address: [address] [place] [address] Performed By: #### 5 7021-8 #### [facility] CLIA [id number] [address] [place] [address] [place] Immature granulocytes (Bld) [#/Vol] 10*3/uL Normal <0.10 [facility] Comment on above: Order Comment: Speci men Type: BLOOD SPECIMEN Ordering Facility: [facility] Address: [address] [place] [address] Performed By: #### 5 7021-8 #### [facility] CLIA [id number] [address] [place] [address] [place] Immature granulocytes/100 WBC (Bld) 0.3 % Normal [facility] Comment on above: Order Comment: Speci men Type: BLOOD SPECIMEN Ordering Facility: [facility] Address: [address] [place] [address] Performed By: #### 5 7021-8 #### [facility] CLIA [id number] [address] [place] [address] [place] Lymphocytes (Bld) [#/Vol] 1.67 10*3/uL Normal 1.00-4.00 [facility] Comment on above: Order Comment: Speci men Type: BLOOD SPECIMEN Ordering Facility: [facility] Address: [address] [place] [address] Performed By: #### 5 7021-8 #### [facility] CLIA [id number] [address] [place] [address] [place] Lymphocytes/100 WBC (Bld) 28.3 % Normal [facility] Comment on above: Order Comment: Speci men Type: BLOOD SPECIMEN Ordering Facility: [facility] Address: [address] [place] [address] Performed By: #### 5 7021-8 #### [facility] CLIA [id number] [address] [place] [address] [place] MCH (RBC) [Entitic mass] 31.2 pg Normal 26.0-34.0 [facility] Comment on above: Order Comment: Speci men Type: BLOOD SPECIMEN Ordering Facility: [facility] Address: [address] [place] [address] Performed By: #### 5 7021-8 #### [facility] CLIA [id number] [address] [place] [address] [place] MCHC (RBC) [Mass/Vol] 33.3 g/dL Normal 30.5-36.0 [facility] Comment on above: Order Comment: Speci men Type: BLOOD SPECIMEN Ordering Facility: [facility] Address: [address] [place] [address] Performed By: #### 5 7021-8 #### [facility] CLIA [id number] [address] [place] [address] [place] MCV (RBC) [Entitic vol] 93.9 fL Normal 80.0-100.0 [facility] Comment on above: Order Comment: Speci men Type: BLOOD SPECIMEN Ordering Facility: [facility] Address: [address] [place] [address] Performed By: #### 5 7021-8 #### [facility] CLIA [id number] [address] [place] [address] [place] Monocytes (Bld) [#/Vol] 0.78 10*3/uL Normal <0.87 [facility] Comment on above: Order Comment: Speci men Type: BLOOD SPECIMEN Ordering Facility: [facility] Address: [address] [place] [address] Performed By: #### 5 7021-8 #### [facility] CLIA [id number] [address] [place] [address] [place] Monocytes/100 WBC (Bld) 13.2 % Normal [facility] Comment on above: Order Comment: Speci men Type: BLOOD SPECIMEN Ordering Facility: [facility] Address: [address] [place] [address] Performed By: #### 5 7021-8 #### [facility] CLIA [id number] [address] [place] [address] [place] Neutrophils (Bld) [#/Vol] 3.17 10*3/uL Normal 1.45-7.50 [facility] Comment on above: Order Comment: Speci men Type: BLOOD SPECIMEN Ordering Facility: [facility] Address: [address] [place] [address] Performed By: #### 5 7021-8 #### [facility] CLIA [id number] [address] [place] [address] [place] Neutrophils/100 WBC (Bld) 53.8 % Normal [facility] Comment on above: Order Comment: Speci men Type: BLOOD SPECIMEN Ordering Facility: [facility] Address: [address] [place] [address] Performed By: #### 5 7021-8 #### [facility] CLIA [id number] [address] [place] [address] [place] Nucleated RBC (Bld) [#/Vol] 10*3/uL Normal <0.01 [facility] Comment on above: Order Comment: Speci men Type: BLOOD SPECIMEN Ordering Facility: [facility] Address: [address] [place] [address] Performed By: #### 5 7021-8 #### [facility] CLIA [id number] [address] [place] [address] [place] Nucleated RBC/100 WBC (Bld) [Ratio] 0.0 /100 WBC Normal [facility] Comment on above: Order Comment: Speci men Type: BLOOD SPECIMEN Ordering Facility: [facility] Address: [address] [place] [address] Performed By: #### 5 7021-8 #### [facility] CLIA [id number] [address] [place] [address] [place] Platelet mean volume (Bld) [Entitic vol] 9.7 fL Normal 9.0-12.7 [facility] Comment on above: Order Comment: Speci men Type: BLOOD SPECIMEN Ordering Facility: [facility] Address: [address] [place] [address] Performed By: #### 5 7021-8 #### [facility] CLIA [id number] [address] [place] [address] [place] Platelets (Bld) [#/Vol] 227 10*3/uL Normal 150-400 [facility] Comment on above: Order Comment: Speci men Type: BLOOD SPECIMEN Ordering Facility: [facility] Address: [address] [place] [address] Performed By: #### 5 7021-8 #### [facility] CLIA [id number] [address] [place] [address] [place] RBC (Bld) [#/Vol] 5.41 10*6/uL Normal 4.20-6.00 [facility] Comment on above: Order Comment: Speci men Type: BLOOD SPECIMEN Ordering Facility: [facility] Address: [address] [place] [address] Performed By: #### 5 7021-8 #### [facility] CLIA [id number] [address] [place] [address] [place] WBC (Bld) [#/Vol] 5.90 10*3/uL Normal 3.70-11.00 [facility] Comment on above: Order Comment: Speci men Type: BLOOD SPECIMEN Ordering Facility: [facility] Address: [address] [place] [address] Result Comment: Resu lts checked and verified.No clot detected. Performed By: #### 5 7021-8 #### [facility] CLIA [id number] [address] [place] [address] [place] Comprehensive metabolic 2000 panelon 12-11-2024 Albumin [Mass/Vol] 4.2 g/dL Normal 3.9-4.9 [facility] Comment on above: Order Comment: Speci men Type: BLOOD SPECIMEN Ordering Facility: [facility] Address: [address] [place] [address] Performed By: #### 2 4323-8, 13466-6 #### [facility] CLIA [id number] [address] [place] [address] [place] ALP [Catalytic activity/Vol] 49 U/L Normal 38-113 [facility] Comment on above: Order Comment: Speci men Type: BLOOD SPECIMEN Ordering Facility: [facility] Address: [address] [place] [address] Performed By: #### 2 4323-8, 13915-3 #### [facility] CLIA [id number] [address] [place] [address] [place] ALT [Catalytic activity/Vol] 17 U/L Normal 10-54 [facility] Comment on above: Order Comment: Speci men Type: BLOOD SPECIMEN Ordering Facility: [facility] Address: [address] [place] [address] Performed By: #### 2 4323-8, 28596-0 #### [facility] CLIA [id number] [address] [place] [address] [place] Anion gap [Moles/Vol] 11 mmol/L Normal 8-15 [facility] Comment on above: Order Comment: Speci men Type: BLOOD SPECIMEN Ordering Facility: [facility] Address: [address] [place] [address] Performed By: #### 2 4323-8, 60016-4 #### [facility] CLIA [id number] [address] [place] [address] [place] AST [Catalytic activity/Vol] 22 U/L Normal 14-40 [facility] Comment on above: Order Comment: Speci men Type: BLOOD SPECIMEN Ordering Facility: [facility] Address: [address] [place] [address] Performed By: #### 2 4323-8, 57055-3 #### [facility] CLIA [id number] [address] [place] [address] [place] Bilirubin [Mass/Vol] 0.5 mg/dL Normal 0.2-1.3 [facility] Comment on above: Order Comment: Speci men Type: BLOOD SPECIMEN Ordering Facility: [facility] Address: [address] [place] [address] Performed By: #### 2 4323-8, 69602-8 #### [facility] CLIA [id number] [address] [place] [address] [place] Calcium [Mass/Vol] 9.2 mg/dL Normal 8.5-10.2 [facility] Comment on above: Order Comment: Speci men Type: BLOOD SPECIMEN Ordering Facility: [facility] Address: [address] [place] [address] Performed By: #### 2 4323-8, 42590-4 #### [facility] CLIA [id number] [address] [place], [place] [address] [place] Chloride [Moles/Vol] 106 mmol/L Normal 98-107 [facility] Comment on above: Order Comment: Speci men Type: BLOOD SPECIMEN Ordering Facility: [facility] Address: [address] [place] [address] Performed By: #### 2 4323-8, 44076-6 #### [facility] CLIA [id number] [address] [place] [address] [place] CO2 [Moles/Vol] 24 mmol/L Normal 22-30 [facility] Comment on above: Order Comment: Speci men Type: BLOOD SPECIMEN Ordering Facility: [facility] Address: [address] [place] [address] Performed By: #### 2 4323-8, 56645-6 #### [facility] CLIA [id number] [address] [place] [address] [place] Creatinine [Mass/Vol] 0.89 mg/dL Normal 0.73-1.22 [facility] Comment on above: Order Comment: Speci men Type: BLOOD SPECIMEN Ordering Facility: [facility] Address: [address] [place] [address] Performed By: #### 2 4323-8, 77966-3 #### [facility] CLIA [id number] [address] [place] [address] [place] eGFRcr SerPlBld CKD-EPI 2020 88 mL/min/1.73m??? Normal >=60 [facility] Comment on above: Order Comment: Speci men Type: BLOOD SPECIMEN Ordering Facility: [facility] Address: [address] [place] [address] Result Comment: Sameera mated Glomerular Filtration Rate (eGFR) is calculated using the 2020 CKD-EPI creatinine equation. This equation utilizes serum creatinine, sex, and age as parameters. The creatinine assay has traceable calibration to isotope dilution-mass spectrometry. Refer to KDIGO guidelines for clinical interpretation. In patients with unstable renal function, e.g. those with acute kidney injury, the eGFR may not accurately reflect actual GFR. Performed By: #### 2 4323-8, 73907-0 #### [facility] CLIA [id number] [address] [address] [place] Glucose [Mass/Vol] 90 mg/dL Normal 74-99 [facility] Comment on above: Order Comment: Silverio austin Type: BLOOD SPECIMEN Ordering Facility: [facility] Address: [address] [place] [address] Result Comment: The [place] [employer] (ADA) provides guidance for cutoff values for fasting glucose and random glucose. The ADA defines fasting as no caloric intake for at least 8 hours. Fasting plasma glucose results between 100 to 125 mg/dL indicate increased risk for diabetes (prediabetes). Fasting plasma glucose results greater than or equal to 126 mg/dL meet the criteria for diagnosis of diabetes. In the absence of unequivocal hyperglycemia, results should be confirmed by repeat testing. In a patient with classic symptoms of hyperglycemia or hyperglycemic crisis, random plasma glucose results greater than or equal to 200 mg/dL meet the criteria for diagnosis of diabetes. Reference: Standards of Medical Care in Diabetes 2016, [place] [employer]. Diabetes Care. 2016.39(Suppl 1). Performed By: #### 2 4323-8, #### [facility] CLIA [id number] [address] [place], [place] [address] [place] Potassium [Moles/Vol] 4.5 mmol/L Normal 3.7-5.1 [facility] Comment on above: Order Comment: Silverio [place]in Type: BLOOD SPECIMEN Ordering Facility: [facility] Address: [address] [place] [address] Performed By: #### 2 4323-8, #### [facility] CLIA [id number] [address] [place] [address] [place] Protein [Mass/Vol] 6.9 g/dL Normal 6.3-8.0 [facility] Comment on above: Order Comment: Speci men Type: BLOOD SPECIMEN Ordering Facility: [facility] Address: [address] [place] [address] Performed By: #### 2 4323-8, 38592-8 #### [facility] CLIA [id number] [address] [place] [address] [place] Sodium [Moles/Vol] 141 mmol/L Normal 136-144 [facility] Comment on above: Order Comment: Speci men Type: BLOOD SPECIMEN Ordering Facility: [facility] Address: [address] [place] [address] Performed By: #### 2 4323-8, 91815-4 #### [facility] CLIA [id number] [address] [place] [address] [place] Urea nitrogen [Mass/Vol] 21 mg/dL Normal 9-24 [facility] Comment on above: Order Comment: Speci men Type: BLOOD SPECIMEN Ordering Facility: [facility] Address: [address] [place] [address] Performed By: #### 2 4323-8, 50231-5 #### [facility] CLIA [id number] [address] [place] [address] [place] HbA1c (Bld)on 12-11-2024 Average glucose Estimated from glycated hemoglobin (Bld) [Mass/Vol] 114 mg/dL Normal [facility] Comment on above: Order Comment: Speci men Type: BLOOD SPECIMENOrdering Facility: [facility] Address: [address] [place] [address] Result Comment: eAG: (Estimated average glucose) is a calculated value from HgbA1c and is personal financial representative of the average blood glucose level in the last 2-3 month period. Performed By: #### 5 5454-3 ####[facility] [id number] [place] [address] [place] HbA1c (Bld) [Mass fraction] 5.6 % Normal 4.3-5.6 [facility] Comment on above: Order Comment: Silverio austin Type: BLOOD SPECIMENOrdering Facility: [facility] Address: [address] [place] [address] Result Comment: Amer ican Diabetes Association guidelines indicate that patients with HgbA1c in the range 5.7-6.4% are at increased risk for development of diabetes, and intervention by lifestyle modification may be beneficial. HgbA1c greater or equal to 6.5% is considered diagnostic of diabetes. Performed By: #### 5 5454-3 ####[facility] [id number] [place] [address] [place] Lipid 1996 panelon 5 Cholesterol [Mass/Vol] 131 mg/dL Normal <200 [facility] Comment on above: Order Comment: Silverio austin Type: BLOOD SPECIMEN Ordering Facility: [facility] Address: [address] [place] [address] Result Comment: <200 mg/dL, Desirable 200-239 mg/dL, Borderline high >239 mg/dL, High Performed By: #### 2 4323-8, 57120-2 #### [facility] CLIA [id number] [address] [place] [address] [place] Cholesterol in HDL [Mass/Vol] 43 mg/dL Normal >39 [facility] Comment on above: Order Comment: Silverio austin Type: BLOOD SPECIMEN Ordering Facility: [facility] Address: [address] [place] [address] Result Comment: 40-5 9 mg/dL, Acceptable >59 mg/dL, High: Negative risk factor for coronary heart disease <40 mg/dL, Low: Positive risk factor for coronary heart disease Performed By: #### 2 4323-8, 32871-7 #### [facility] CLIA [id number] [address] [place] [address] OF [facility] Cholesterol in LDL [Mass/Vol] 73 mg/dL Normal <100 [facility] Comment on above: Order Comment: Silverio norman Type: BLOOD SPECIMEN Ordering Facility: [facility] Address: [address] [place] [address] Result Comment: <100 mg/dL, Optimal 100-129 mg/dL, Near optimal/above optimal 130-159 mg/dL, Borderline high 160-189 mg/dL, High >189 mg/dL, Very high Secondary prevention optimal LDL Cholesterol levels are recommended to be <70 mg/dL LDL cholesterol is calculated using the Aguirre-NIH equation. Performed By: #### 2 4323-8, 15984-5 #### [facility] CLIA [id number] [address] [place] [address] [place] Cholesterol in LDL/Cholesterol in HDL [Mass ratio] 1.70 {ratio} Normal <2.54 [facility] Comment on above: Order Comment: Silverio austin Type: BLOOD SPECIMEN Ordering Facility: [facility] Address: [address] [place] [address] Result Comment: Refe rence: 1. National Cholesterol Education Program ATP III Guideline At-A-Glance Quick Desk Reference: National Heart, Lung, and Blood [place]. National Institutes of Health. 2001: NIH Publication No. 01-3305. 2. An International Atherosclerosis Society position paper: global recommendations for the management of dyslipidemia: executive summary, Atherosclerosis. 2014: 232(2):410-413. Performed By: #### 2 4323-8, #### [facility] CLIA [id number] [address] [place] [address] [place] Cholesterol in VLDL [Mass/Vol] 12 mg/dL Normal <30 [facility] Comment on above: Order Comment: Silverio austin Type: BLOOD SPECIMEN Ordering Facility: [facility] Address: [address] [place] [address] Performed By: #### 2 4323-8, #### [facility] CLIA [id number] [address] [place] [address] [place] Cholesterol non HDL [Mass/Vol] 88 mg/dL Normal <130 [facility] Comment on above: Order Comment: Silverio men Type: BLOOD SPECIMEN Ordering Facility: [facility] Address: [address] [place] [address] Result Comment: <130 mg/dL, Optimal 130-159 mg/dL, Near optimal/above optimal 160-189 mg/dL, Borderline high 190-219 mg/dL, High >219 mg/dL, Very high Secondary prevention optimal non HDL Cholesterol levels are recommended to be <100 mg/dL Performed By: #### 2 4323-8, 62700-0 #### [facility] CLIA [id number] [address] [place] [address] [place] Cholesterol.total/Chol esterol in HDL [Mass ratio] 3.05 {ratio} Normal <5.10 [facility] Comment on above: Order Comment: Speci men Type: BLOOD SPECIMEN Ordering Facility: [facility] Address: [address] [place] [address] Performed By: #### 2 4323-8, 70530-2 #### [facility] CLIA [id number] [address] [place] [address] STATES OF [facility] FASTING TIME 12 hrs Normal [facility] Comment on above: Order Comment: Speci men Type: BLOOD SPECIMEN Ordering Facility: [facility] Address: [address] [place] [address] Performed By: #### 2 4323-8, 34332-3 #### [facility] CLIA [id number] [address] [place] [address] [place] Triglyceride [Mass/Vol] 77 mg/dL Normal <150 [facility] Comment on above: Order Comment: Speci men Type: BLOOD SPECIMEN Ordering Facility: [facility] Address: [address] [place] [address] Result Comment: <150 mg/dL, Normal 150-199 mg/dL, Borderline high 200-499 mg/dL, High >499 mg/dL, Very high Performed By: #### 2 4323-8, 90126-5 #### [facility] CLIA [id number] [address] [place] [address] [place] PT D/C Summary (1)on 025 PT D/C Summary (1) [facility] Physical Therapy [facility] [address] [place] [address] / REHABILITATION SERVICES DISCHARGE SUMMARY MR#: [id number] Acct: [id number] Name: JOCELYN LOAIZA Rep #: [id number] : 1945 79 From: Carolyn Vásquez PT, Cert. MDT Referring Dr.: Dr. Bella Santos MD Status: REG RCR Insurance: [employer] [facility] SELF PAY INSURANCE Discharge Summary D/C summary: It has been my pleasure to treat JOCELYN LOAIZA referred by Dr. Bella Santos MD, with the diagnosis of LOW BACK PAIN for a total of 9 visit(s). Discharge Date: 11/15/24 Please see the following information for a summary of their discharge status. Subjective Subjective: I FEEL LIKE THE THERAPY IS HELPING. PATIENT REPORTS HIS PAIN IS VERY INTERMITTENT AND IF HE MOVES IT USUALLY WORKS IT OUT. HE REPORTS HE IS HAVING LESS EPISODES OF PAIN SINCE STARTING PT. FOLLOW UP PENDING WITH DR. SANTOS IN NOV 2024 AFTER RETURN FROM BEING OUT OF TOWN. PATIENT REPORTS HE IS GOING OUT OF TOWN FROM 11/27/24 TO 12/09/24 Pain Left Back: Pain Intensity (Out of 10): 0 Overall Improvement % Improvement: 50 Objective Objective/Function: PATIENT WAS SEEN TODAY FOR RE-ASSESSMENT OF PROGRESS TOWARD THE SET PT GOALS AND THE NEED FOR FURTHER PHYSICAL THERAPY VS READINESS FOR DISCHARGE. THIS PATIENT IS REPORTING LESS FREQUENT EPISODES OF PAIN BUT OSWESTRY SCORE IS WORSE AND L LOW BACK PAIN IS EASILY PRODUCE WITH TESTING TODAY AND REMAINS WORSE A RESULT. NO CHANGE IN LE TESTING OR NEW LE SIGNS. PHYSICAIN RE- ASSESSMENT IS RECOMMENDED. PATIENT AGREEABLE. UPON EXAM TODAY: Strength: Abdulaziz LE's grossly 5/5. Other: patient is able to walk on toes and walk on heels without UE assist. Dural Signs: Negative Abdulaziz LE's. Lumbar mvmt loss: flex - MIN MOD - NE ext - MOD - NE R SG - MOD - P L BACK ON RETURN - NW L SG - MOD TO ADRY - P L BACK - REMAINS WORSE A RESULT. EVENTUALLY ABOLISHED IN SITTING BEFORE DEPARTURE. REINFORCEMENT OF PRIOR INSTRUCTIONS GIVEN FOR HEALTHY BACK AND POSTURE HABITS. PATIENT DEMONSTRATES/COMMUNICA LITO A GOOD UNDERSTANDING. Goals Goal 1:: DECREASE C/O L LB AND L LE SX'S BY AT LEAST 75% Goal Progress: Questionable Goal 2:: RESTORE PAINFREE LUMBAR ROM WITH ALL ADL'S Goal Progress: Not Met Goal 3:: PATIENT WILL BE INDEP WITH APPROPRIATE CORE AND LE STRETCHING AND STRENGTHENING PROGRAM TO MINIMIZE RISK OF REOCCURRENCE. Goal Progress: Partially Met Plan Plan: D/C TO HOME INSTRUCTIONS GIVEN, EX PROGRAM AND FOLLOW UP WITH DR. SANTOS. PATIENT AGREEABLE. D/C Information d/c sentence: If there are questions or concerns regarding this patient's physical therapy, please feel free to call me at [phone]. Thank you for the referral of this patient. Sincerely, Carolyn Vásquez, PT, Cert MDT Balance/Gait/Functiona l tests Balance/Special Test Scores Oswestry Low Back Score: 5 Improvement % Improvement: 50 11/15/24 1248 CC: Dr. Bella Santos MD JAIR Signed Normal [facility] CT Abd/Pelvis W/WO Contrasto n 10-31-2024 CT Abd/Pelvis W/WO Contrast [facility] Imaging Services [address] [place] [address] [id number] [address] Abd/Pelvis W/WO Contrast MR#: [id number] Acct: [id number] Name: JOCELYN LOAIZA Rep #: [id number] : 1945 M 79 From: Yeyo White MD PCP: Dr. Bella Santos MD Status: REG CLI Study: CT Abd/Pelvis W/WO Contrast Date of Exam: 01/17 Exam# [id number] Ordering Dr: Kiran Shaffer MD PROCEDURE: CT ABD/PELVIS W/WO CONTRAST 10/31/2024 REASON FOR EXAM: GROSS HEMATURIA TECHNIQUE: CT ABD/PELVIS W/WO CONTRAST Coronal and Sagittal reconstruction series were provided. CONTRAST: Isovue-300 VOLUME: 100 mL One or more dose reduction techniques were used (e.g., Automated exposure control, adjustment of the mA and/or kV according to patient size, use of iterative reconstruction technique. RADIATION DOSE SUMMARY: CTDlvol: 68.90 mGy DLP: 2050.29 mGycm COMPARISON: CT abdomen and pelvis without contrast, 05/13/2019. FINDINGS: Lung bases: The lung bases are clear. There are no pleural effusions. The heart size is normal. There is no pericardial effusion. There is calcific vascular disease of the thoracic aorta and coronary arteries. Liver: There is a 4.3 cm in diameter cyst in the left hepatic lobe. There are multiple smaller cysts in both hepatic lobes. Gallbladder: Normal. Spleen: Normal. There is a benign splenule inferior to the spleen. Pancreas: Normal. Adrenals: Normal. Kidneys: There are multiple cortical cysts on both kidneys the largest on the left measuring 9.5 cm in diameter in the largest on the right measuring 6.0 cm in diameter. There are 2 x 2 mm stones in an upper pole calyx of the left kidney, max HU 220. There is a 2 mm stone in an interpolar calyx of the left kidney. There is no ureterolithiasis or hydronephrosis. Bladder: Normal. Reproductive Organs: The prostate gland is normal in size. The seminal vesicles are normal. There is no free fluid in the pelvis. There is no pelvic or inguinal lymphadenopathy. There is a right inguinal hernia containing normal fat measuring 3.4 cm in diameter. Bowel: There is a small hiatal hernia. There is stool throughout the colon. Appendix: Normal. Lymph nodes: There is no significant mesenteric, retroperitoneal or pelvic lymphadenopathy. Vasculature: There is calcific vascular disease of the abdominal aorta. The inferior vena cava and portal venous system are normal. Peritoneum / Retroperitoneum: There are no abnormal intra or retroperitoneal masses or fluid collections. Bones: There is multilevel degenerative disc disease of the lumbar spine most severe at the L3-4 and L4-5 levels. There is mild levoscoliosis of the lumbar spine. CT/CT Abd/Pelvis W/WO Contrast IMPRESSION: 1. Left nephrolithiasis without obstruction. 2. The bladder appears unremarkable. 3. There is a small hiatal hernia. 4. Right inguinal hernia containing fat. 5. Other findings as noted. Reading Location: [id number] CC: Dr. Kiran Shaffer MD; Dr. 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 - Tell the wraparound facilitator you have tried in-office salicylic acid, Compound W, and the compounded cream without full resolution. other options discussed include scheduling a laser excision Marly Child 10/25/2024 1:04 PM Signed Subjective Jocelyn Loaiza is a 79-year-old male presenting for follow-up of a wart on the right foot. Wart on Right Foot: - Persistent wart on the plantar aspect of the right foot. - Previous treatments include topical salicylic acid, Compound W, and a prescribed wart cream. - Jocelyn believes the wart is improving but is uncertain. - Noticed a scab on the wart since the last visit. - Denies pain associated with the wart. - Has a dermatology appointment scheduled for December 11. Musculoskeletal: (-) right foot pain Skin: (+) right foot scab PAST MEDICAL HISTORY Diagnosis Date Dyslipidemia Dyspnea on exertion Former smoker, stopped smoking in distant past HTN (hypertension) Kidney stones HARLEY on CPAP Rosacea Current Outpatient Medications Medication Sig Dispense Refill losartan (COZAAR) 50 mg tablet Take 1 tablet by mouth once daily. 90 tablet 3 magnesium oxide 400 mg magnesium cap Take 1 capsule by mouth once daily. 90 capsule 3 Cholecalciferol, Vitamin D3, 50 mcg (2,000 unit) cap Take 1 capsule by mouth once daily. 90 capsule 3 glucosamine HCl/chondroitin harirs (GLUCOSAMINE-CHONDROIT IN ORAL) Take 1 tablet by mouth two times a day. rosuvastatin (CRESTOR) 40 mg tablet Take 1 tablet by mouth daily at bedtime. 90 tablet 3 metoprolol tartrate, short acting, (LOPRESSOR) 25 mg tablet Take 1 tablet by mouth two times a day. 180 tablet 3 ELIQUIS 5 mg tab(s) Take 1 tablet by mouth two times a day. 180 tablet 3 Docusate Sodium 100 mg tab Take by mouth. TURMERIC ORAL Take by mouth once daily. doxycycline 20 mg tablet Take 1 tablet by mouth twice daily. tamsulosin ER (FLOMAX) 0.4 mg Take 1 capsule by mouth twice daily. Dr. Shaffer. acetaminophen (TYLENOL) 500 mg tablet Take 2 tablets by mouth every 6 hours. aspirin, enteric coated (ASPIRIN, ENTERIC COATED) 81 mg EC tablet Take 2 tablets by mouth once daily. No current facility-administered medications for this visit. Family History Problem Relation Age of Onset other (No CAD) Father Cancer Mother , lung Cancer Brother thyroid Objective There were no vitals taken for this visit. - Cardiovascular: Dorsalis pedis and posterior tibial pulses palpable on the right foot; capillary refill time <5 seconds; skin temperature warm. - Skin: Hyperkeratotic lesion with diverging skin lines on the plantar aspect of the second metatarsal head, measuring approximately 5mm x 5mm. Assessment AND Plan 1. Plantar wart (B07.0) - Persistent hyperkeratotic lesion on the plantar aspect of the second metatarsal head, measuring approximately 5mm x 5mm, with diverging skin lines; consistent with a plantar wart. - Previous treatments include topical salicylic acid, Compound W, and a compounded wart cream; minimal improvement observed. - Discussed potential next steps: referral to dermatology for further evaluation and management, or considering laser excision. - Patient has a dermatology appointment scheduled for December 11; advised to continue current topical treatments until then. - Educated patient on the laser excision procedure, including the need for operating room setting, post-operative care with topical antibiotics, and expected healing time of approximately three weeks. - Patient understands and agrees with the plan to consult dermatology before considering surgical options. Recording using [employer]den[employer] software for draft documentation of the visit was discussed with the patient/authorized personal financial representative; all questions welcomed and answered. Patient/authorized personal financial representative agreed to proceed Marly Child DPM Referring Provider: [facility] CHILD [[id number]] Allergies As of Date: 10/25/2024 (No Known Allergies) Date Reviewed: 10/25/2024 Reviewed by: Ailin Gunn LPN - Fully Assessed Reason for Visit: Follow Up [171] Cmt: 1 month follow up wart right foot Primary Visit Diagnosis:Plantar wart [B07.0] Prescriptions as of 10/25/2024 - losartan (COZAAR) 50 mg tablet Take 1 tablet by mouth once daily. - magnesium oxide 400 (more content not included)... Normal [facility] Inital Evaluation (1) - PTon 10-23-2024 Inital Evaluation (1) - PT [facility] Physical Therapy [address] [place] [address] / REHABILITATION SERVICES INITIAL EVALUATION MR#: [id number] Acct: [id number] Name: JOCELYN LOAIZA Rep #: [id number] : 1945 79 From: Carolyn Vásquez PT, Cert. MDT Referring Dr.: Dr. Bella Santos MD Status: REG [facility] Insurance: [facility] SELF PAY INSURANCE Patient's Visit Information Visit Information Visit Information: JOCELYN LOAIZA is a 79 year old M referred to Physical Therapy by Dr. Bella Santos MD with a diagnosis of LOW BACK PAIN. Date of Evaluation: 10/22/24 Physical Therapist: Carolyn Vásquez PT, Cert MDT Visit Plan Frequency: 2x /Week Duration: 4-6 Weeks Plan: POSTURE CORRECTION/STRENGTHENI NG, INSTRUCTION IN APPROPRIATE BODY MECHANICS AND ACTIVITY MODIFICATIONS. DLS PROGRAM WITH NEUTRAL SPINE. ABDULAZIZ LE ROM, STRETCHING AND STRENGTHENING. HEP INSTRUCTION. 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 Present symptoms: INTERMITTENT L LOW BACK PAIN AND L LE THIGH NUMBNESS AND TINGLING. DENIES R SIDE SX'S. Present since: ABOUT 2 - 3 MONTHS AGO Pain Scale: WORST 8/10, LEAST 0/10 Currently: 1-2/10 Is it getting better, worse or staying the same: STAYING THE SAME THE LAST WEEK OR SO Commenced as a result of: BENDING Symptoms at onset: PAIN IN L LOW BACK Worse: BENDING OVER WITH A TWIST, BENDING AND REACHING, NOT NECESSARILY LIFTING, USUALLY OK IF SQUAT. ACHY IN THE MORNING. Better: SOMETIMES STANDING UP AND BENDING OVER FORWARD, SOMETIMES BENDING BACKWARDS, SOMETIMES TAKING A FEW STEPS, TYLONOL. Disturbed sleep: MAYBE ONCE OR TWICE IN THE LAST SEVERAL MONTHS. ITS ACHY IN THE MORNING. Previous history/Previous treatment: TINGLING OFF AND ON IN L LEG FOR YEARS. NO PRIOR PROFESSIONAL BACK TREATMENTS. Treatment this episode: CHIROPRACTIC. Coughing/sneezing/stra ining: NEGATIVE FOR INCREASED PAIN. Gait: H/O KNEE PROBLEMS. REPORTS PT IN THE PAST AND THEY BUCKLE SOMETIMES. STATES IT CAN HAPPEN ON STEPS BUT HASN'T FOR A FEW MONTHS. Bowel or Bladder Dysfunction: NO. BUT STATES HE DID HAVE BLOOD IN HIS URINE LAST WEEK SO SAW THE UROLOGIST TODAY AND HE IS DOING A FULL WORK UP. Accidents: NO Unexplained weight loss: NO Imaging: X-RAYS AT [facility] THEN DR. SANTOS ORDERED MRI. 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 ROOT INVOLVEMENT (SUMMARIZED FROM INFO PROVIDED BY PATIENT). PMH/Recent major surgery: Afib Bradycardia BPH (benign prostatic hyperplasia) Atherosclerotic heart disease of [place] coronary artery without angina pectoris Acne rosacea HARLEY on CPAP Kidney stones Hypertension Former smoker, stopped smoking in distant past Hyperlipidemia S/P triple vessel bypass Hx of tonsillectomy H/O lithotripsy H/O hernia repair Objective Objective: Sitting/Standing Posture: R ILIAC CREST HIGHER THAN L. NO RELEVANT LATERAL LUMBAR SHIFT. VERY SLOUCHED IN SITTING. Other Observations: INDEP GAIT AND TRANSFERS. Sensory deficit: ABDULAZIZ LE LIGHT TOUCH SENSATION GROSSLY INTACT AND SYMMETRICAL ROM deficit: ABDULAZIZ HIP FLEXOR, HS AND CALF TIGHTNESS. Motor deficit: ABDULAZIZ LE'S GROSSLY 5/5 EXCEPT HIPS 4/5 Reflexes: UNABLE TO ELICIT ABDULAZIZ LE DTR'S. Lumbar mvmt loss: flex - MOD - NE ext - MOD - NE R SG - MOD - P L BACK ON RETURN - NW L SG - MOD - NE Core strength: FAIR Palpation: NO ACUTE TENDERNESS BUT INCREASED MUSCLE TONE ABDULAZIZ PARASPINALS TREATMENT: NEUROMUSCULAR REEDUCATION - RETRAINING OF MVMT AND POSTURE FOR SITTING, LYING AND STANDING ACTIVITIES. Balance/Special Test Scores Oswestry Low Back Score: 2 Goals Goal 1:: DECREASE C/O L LB AND L LE SX'S BY AT LEAST 75% Goal Time Frame: 4-6 Weeks Goal 2:: RESTORE PAINFREE LUMBAR ROM WITH ALL ADL'S Goal Time Frame: 4-6 Weeks Goal 3:: PATIENT WILL BE INDEP WITH APPROPRIATE CORE AND LE STRETCHING AND STRENGTHENING PROGRAM TO MINIMIZE RISK OF REOCCURRENCE. Goal Time Frame: 4-6 Weeks Rehabilitation Potential Physical Therapy Diagnosis: CORE AND LE STIFFNESS AND WEAKNESS Rehabilitation Potential: Good Anticipated Interventions Patient/Client Instruction: Educate patient on: Condition, Plan of Care and Risk Factors For the Purpose of:: To improve self management Therapeutic Exercise to Include: Strength training, Body mechanics, Postural training, Flexibilty training, Neuromotor development and Dynamic Lumbar Stabilization For the Purpose of:: To decrease pain, To improve nutrient delivery to tissue, To improve muscle performance and motor function, To increase tolerance to activity/condition/pos ition, To improve ability of physical actions for home/community/work/le isure, To increase flexibility/ROM and To improve self management Text: Thank you for the opportunity to evaluate your (more content not included)... Normal [facility] MR Lumbar spine [facility] n 10-18-2024 IMPRESSION: Multilevel degenerative changes are present throughout the lumbar spine with lateral recess stenosis most pronounced bilaterally at L4-L5 resulting in crowding of the descending L5 nerve roots as well as mild to moderate central stenosis at this level. Degenerative foraminal stenosis is most pronounced and moderate to advanced on the right at L3-L4 as well as moderate on the left at L4-L5. Anatomic Lumbar Variant: None. L4-5 is considered the level of the iliac crest and assume there are 5 lumbar-type vertebrae. Mica Paster: VIK Transcribe Date/Time: Oct 18 2024 6:38P Dictated by : FREDDIE STANTON MD This examination was interpreted and the report reviewed and electronically signed by: FREDDIE STANTON MD on Oct 18 2024 6:54PM [facility] DIVISION OF RADIOLOGY * * *Final Report* * * DATE OF EXAM: Oct 18 2024 3:45PM [facility] 0303 - MRI LUMBAR SPINE WO IVCON / PROCEDURE REASON: multiple diagnoses * * * * Physician Interpretation * * * * EXAMINATION: MRI LUMBAR SPINE WO IVCON CLINICAL HISTORY: Chronic left-sided low back pain without sciatica Chronic left-sided low back pain without sciatica TECHNIQUE: Routine lumbosacral spine MRI protocol without gadolinium. MQ: [id number]_3 COMPARISON: Lumbar spine radiographs 01/06/2021, external facility lumbar spine radiographs 09/27/2024 RESULT: Counting reference: Lumbosacral junction. For the purposes of this report, L4-5 is considered the level of the iliac crest and assume there are 5 lumbar-type vertebrae. Anatomic variant: None. Localizer images: Numerous cystic lesions of various sizes are present in the kidneys bilaterally, incompletely characterized on this examination. Mild degenerative anterolisthesis of L3 on L4 and L4 on L5. Alignment: Mild dextrocurvature is present centered at L4 and levocurvature at L2-L3. Bone marrow signal/fracture: Mild scattered degenerative marrow signal changes surrounding the L3-L4 disc space. No evidence of prior fracture. Conus: The conus is within normal limits of signal intensity and morphology. Paraspinal soft tissues: Paraspinal soft tissues are within normal limits. Lower thoracic spine: Visualized lower thoracic canal and foramina are patent. L1-L2: Mild degenerative disc and facet disease with no substantial canal or foraminal stenosis. L2-L3: Mild degenerative disc and facet disease with no substantial canal or foraminal stenosis. L3-L4: Moderate to advanced degenerative disc disease eccentric to the right with small posterior broad-based disc bulge and posterior endplate osteophytic ridging as well as moderate bilateral degenerative facet disease and ligamentum flavum thickening resulting in mild narrowing of the lateral recesses, mild central stenosis, as well as mild left and moderate to advanced right foraminal stenosis. L4-L5: Moderate degenerative disc disease with small posterior broad-based disc bulge and tiny superimposed posterior central disc extrusion as well as moderate right and advanced left degenerative facet hypertrophy and ligamentum flavum thickening resulting in moderate left greater than right lateral recess stenosis with crowding of the bilateral descending L5 nerve roots, mild to moderate central stenosis, as well as moderate left and [id number] right foraminal stenosis. L5-S1: Mild degenerative disc disease as well as mild to moderate bilateral degenerative facet disease with no substantial canal or foraminal stenosis. Sacrum and iliac wings: Likely bone island in the left iliac bone. Degenerative changes are partially imaged in the bilateral sacroiliac joints. DIVISION OF RADIOLOGY Provider, Cristela Scott [facility] - 10/18/2024 * * *Final Report* * * DATE OF EXAM: Oct 18 2024 3:45PM [facility] 0303 - MRI LUMBAR SPINE WO IVCON / PROCEDURE REASON: multiple diagnoses * * * * Physician Interpretation * * * * EXAMINATION: MRI LUMBAR SPINE WO IVCON CLINICAL HISTORY: Chronic left-sided low back pain without sciatica Chronic left-sided low back pain without sciatica TECHNIQUE: Routine lumbosacral spine MRI protocol without gadolinium. MQ: [id number]_3 COMPARISON: Lumbar spine radiographs 01/06/2021, external facility lumbar spine radiographs 09/27/2024 RESULT: Counting reference: Lumbosacral junction. For the purposes of this report, L4-5 is considered the level of the iliac crest and assume there are 5 lumbar-type vertebrae. Anatomic variant: None. Localizer images: Numerous cystic lesions of various sizes are present in the kidneys bilaterally, incompletely characterized on this examination. Mild degenerative anterolisthesis of L3 on L4 and L4 on L5. Alignment: Mild dextrocurvature is present centered at L4 and levocurvature at L2-L3. Bone marrow signal/fracture: Mild scattered degenerative marrow signal changes surrounding the L3-L4 disc space. No evidence of prior fracture. Conus: The conus is within normal limits of signal intensity and morphology. Paraspinal soft tissues: Paraspinal soft tissues are within normal limits. Lower thoracic spine: Visualized lower thoracic canal and foramina are patent. L1-L2: Mild degenerative disc and facet disease with no substantial canal or foraminal stenosis. L2-L3: Mild degenerative disc and facet disease with no substantial canal or foraminal stenosis. L3-L4: Moderate to advanced degenerative disc disease eccentric to the right with small posterior broad-based disc bulge and posterior endplate osteophytic ridging as well as moderate bilateral degenerative facet disease and ligamentum flavum thickening resulting in mild narrowing of the lateral recesses, mild central stenosis, as well as mild left and moderate to advanced right foraminal stenosis. L4-L5: Moderate degenerative disc disease with small posterior broad-based disc bulge and tiny superimposed posterior central disc extrusion as well as moderate right and advanced left degenerative facet hypertrophy and ligamentum flavum thickening resulting in moderate left greater than right lateral recess stenosis with crowding of the bilateral descending L5 nerve roots, mild to moderate central stenosis, as well as moderate left and [id number]-vk-ttllnurp right foraminal stenosis. L5-S1: Mild degenerative disc disease as well as mild to moderate bilateral degenerative facet disease with no substantial canal or foraminal stenosis. Sacrum and iliac wings: Likely bone island in the left iliac bone. Degenerative changes are partially imaged in the bilateral sacroiliac joints. IMPRESSION IMPRESSION: Multilevel degenerative changes are present throughout the lumbar spine with lateral recess stenosis most pronounced bilaterally at L4-L5 resulting in crowding of the descending L5 nerve roots as well as mild to moderate central stenosis at this level. Degenerative foraminal stenosis is most pronounced and moderate to advanced on the right at L3-L4 as well as moderate on the left at L4-L5. Anatomic Lumbar Variant: None. L4-5 is considered the level of the iliac crest and assume there are 5 lumbar-type vertebrae. Mica Paster: [facility] Transcribe Date/Time: Oct 18 2024 6:38P Dictated by : FREDDIE STANTON MD This examination was interpreted and the report reviewed and electronically signed by: FREDDIE STANTON MD on Oct 18 2024 6:54PM EST [facility] Radiology Study observation (narrative) [facility] MR Lumbar spine WO contrastO rdered By: [facility] Provider on 10-18-2024 [facility] MRI LUMBAR SPINE WO IVCONon 10-18-2024 MRI LUMBAR SPINE WO IVCON * * *Final Report* * * DATE OF EXAM: Oct 18 2024 3:45PM [facility] 0303 - MRI LUMBAR SPINE WO IVCON / PROCEDURE REASON: multiple diagnoses * * * * Physician Interpretation * * * * EXAMINATION: MRI LUMBAR SPINE WO IVCON CLINICAL HISTORY: Chronic left-sided low back pain without sciatica Chronic left-sided low back pain without sciatica TECHNIQUE: Routine lumbosacral spine MRI protocol without gadolinium. MQ: [id number]_3 COMPARISON: Lumbar spine radiographs 01/06/2021, external facility lumbar spine radiographs 09/27/2024 RESULT: Counting reference: Lumbosacral junction. For the purposes of this report, L4-5 is considered the level of the iliac crest and assume there are 5 lumbar-type vertebrae. Anatomic variant: None. Localizer images: Numerous cystic lesions of various sizes are present in the kidneys bilaterally, incompletely characterized on this examination. Mild degenerative anterolisthesis of L3 on L4 and L4 on L5. Alignment: Mild dextrocurvature is present centered at L4 and levocurvature at L2-L3. Bone marrow signal/fracture: Mild scattered degenerative marrow signal changes surrounding the L3-L4 disc space. No evidence of prior fracture. Conus: The conus is within normal limits of signal intensity and morphology. Paraspinal soft tissues: Paraspinal soft tissues are within normal limits. Lower thoracic spine: Visualized lower thoracic canal and foramina are patent. L1-L2: Mild degenerative disc and facet disease with no substantial canal or foraminal stenosis. L2-L3: Mild degenerative disc and facet disease with no substantial canal or foraminal stenosis. L3-L4: Moderate to advanced degenerative disc disease eccentric to the right with small posterior broad-based disc bulge and posterior endplate osteophytic ridging as well as moderate bilateral degenerative facet disease and ligamentum flavum thickening resulting in mild narrowing of the lateral recesses, mild central stenosis, as well as mild left and moderate to advanced right foraminal stenosis. L4-L5: Moderate degenerative disc disease with small posterior broad-based disc bulge and tiny superimposed posterior central disc extrusion as well as moderate right and advanced left degenerative facet hypertrophy and ligamentum flavum thickening resulting in moderate left greater than right lateral recess stenosis with crowding of the bilateral descending L5 nerve roots, mild to moderate central stenosis, as well as moderate left and [id number]-fc-cwhpqysc right foraminal stenosis. L5-S1: Mild degenerative disc disease as well as mild to moderate bilateral degenerative facet disease with no substantial canal or foraminal stenosis. Sacrum and iliac wings: Likely bone island in the left iliac bone. Degenerative changes are partially imaged in the bilateral sacroiliac joints. IMPRESSION: Multilevel degenerative changes are present throughout the lumbar spine with lateral recess stenosis most pronounced bilaterally at L4-L5 resulting in crowding of the descending L5 nerve roots as well as mild to moderate central stenosis at this level. Degenerative foraminal stenosis is most pronounced and moderate to advanced on the right at L3-L4 as well as moderate on the left at L4-L5. Anatomic Lumbar Variant: None. L4-5 is considered the level of the iliac crest and assume there are 5 lumbar-type vertebrae. Mica Paster: [facility] Transcribe Date/Time: Oct 18 2024 6:38P Dictated by : FREDDIE STANTON MD This examination was interpreted and the report reviewed and electronically signed by: FREDDIE STANTON MD on Oct 18 2024 6:54PM EST [id number] Normal [facility] CNOVon 10-15-2024 CNOV Office Visit (FAMPWS ) JOCELYN LOAIZA ([id number]) 1945 M Date Time Provider Department 10/15/24 7:00 PM [facility] During your visit today, we recorded the following information about you: Pulse Respiration Blood pressure Weight 74/minute 16/minute 140/74 77.6 kg Bella Santos MD 10/15/2024 7:19 PM Signed Chief Complaint Patient presents with: Back Pain HPI Jocelyn Loaiza is a 79 year old male who presents here today for back pain. Pt has been following with Chiropractor for his lower back and had xray done showing disc deterioration. He brought in disc for provider to look at, this was sent to Radiology to have uploaded. Pt wants to get MRI done. If he bends over he gets sharp pains, most the time its just an ache. He states this has been ongoing x 1 month. No injury. Has used heat and ice. Back Pain: - Gradual onset of back pain, described as a dull ache, with episodes of sharp pain. - Pain intensity varies from 2/10 to 7-8/10, depending on movement. - Aggravated by bending or moving the wrong way; sharp pain is transient. - No specific event or trauma initiated the pain. - Nocturnal pain is absent, but Jocelyn reports morning soreness. - Pain localized to the left side of the spine and upper buttock. - No pain radiating down the legs, but Jocelyn reports tingling in the left leg. - No difficulty with ambulation. - Chiropractic treatments have provided Jocelyn some relief. - Using ice and Tylenol PRN for pain management. - Engaging in exercises and stretches, including foam rolling for the IT band and hips. - Interested in obtaining an MRI for further evaluation. Past medical history, appointments, medications, allergies reviewed. [...] on File Prior to Visit Medication Sig magnesium oxide 400 mg magnesium cap Take 1 capsule by mouth once daily. Cholecalciferol, Vitamin D3, 50 mcg (2,000 unit) cap Take 1 capsule by mouth once daily. glucosamine HCl/chondroitin harris (GLUCOSAMINE-CHONDROIT IN ORAL) Take 1 tablet by mouth two times a day. rosuvastatin (CRESTOR) 40 mg tablet Take 1 tablet by mouth daily at bedtime. metoprolol tartrate, short acting, (LOPRESSOR) 25 mg tablet Take 1 tablet by mouth two times a day. ELIQUIS 5 mg tab(s) Take 1 tablet by mouth two times a day. losartan (COZAAR) 50 mg tablet Take 1 tablet by mouth once daily. Docusate Sodium 100 mg tab Take by mouth. TURMERIC ORAL Take by mouth once daily. doxycycline 20 mg tablet Take 1 tablet by mouth twice daily. tamsulosin ER (FLOMAX) 0.4 mg Take 1 capsule by mouth twice daily. Dr. Shaffer. acetaminophen (TYLENOL) 500 mg tablet Take 2 tablets by mouth every 6 hours. aspirin, enteric coated (ASPIRIN, ENTERIC COATED) 81 mg EC tablet Take 2 tablets by mouth once daily. [DISCONTINUED] furosemide (LASIX) 20 mg tablet Take 1 tablet by mouth once daily. No current facility-administered medications on file prior to visit. Social History Social History Tobacco Use Smoking status: Former Current packs/day: 0.00 Average packs/day: 1 pack/day for 7.0 years (7.0 ttl pk-yrs) Types: Cigarettes Start date: 12/27/1969 Quit date: 12/27/1976 Years since quittin.8 Smokeless tobacco: Never Tobacco comments: on and off Vaping Use Vaping status: Never Used Substance Use Topics Alcohol use: Yes Comment: occasional Drug use: No EXAM: BP 140/74 Pulse 74 Resp 16 Wt 77.6 kg (171 lb 1.2 oz) SpO2 98% BMI 26.40 kg/m? General Appearance: Well appearing, alert, in no acute distress, well-hydrated, well nourished.. Back:indicates pain left lower lumbar area, fair ROM in all directions Health Maintenance List Shingrix Vaccine(1 of 2) Never done RSV Vaccine(1 - 1-dose 75+ series) Never done Advance Directive Discussion due on 04/25/2024 Medicare Advantage Annual Wellness Visit Never done Hepatitis C Screening due on 06/11/2025 Depression Screening due on 11/28/2024 Anxiety Screening due on 11/28/2024 Covid-19 Vaccine( season) due on 12/09/2024 Influenza Vaccine(Season Ended) due on 12/24/2024 (more content not included)... Normal [facility] CNOVon 10-04-2024 CNOV Office Visit (PODIWS ) JOCELYN LOAIZA ([id number]) 1945 M Date Time Provider Department 10/04/24 10:15 AM [facility] During your visit today, we recorded the following information about you: Keya Washington MA 10/04/2024 12:48 PM Signed Patient presents with: Right Foot - Follow Up: 1 month follow up wart right foot AMB ROOMING INTAKE FLOWSHEET DATA Patient denies any pain today. Feels the wart is about the same size after his treatment. Marly Child 10/04/2024 10:51 AM Signed - Leave today?s acid treatment on the wart for 10 hours before removing the dressing. - After 10 hours, resume applying the Floro-Wart compound twice daily as you have been doing. - Keep the wart covered with tape (duct tape or similar) between treatments to help the medicine stay in place. - Return for a follow-up in about 3 to 4 weeks to check on progress and decide if further treatment or removal is needed. Marly Child 10/04/2024 12:48 PM Signed Subjective Jocelyn Loaiza is a 79-year-old male presenting for follow-up of a plantar wart. Plantar Wart: - Wart located on the plantar aspect of the right foot, first noted on 08/14. - Initial size: 5 mm x 6 mm; measured 6 mm x 4 mm on 09/04. - Currently measures 5 mm x 4 mm. - Using Floro-Wart compound BID since 09/13; minimal improvement noted. - Covers wart with tape; reports occasional slippage. - Denies significant pain or discomfort, but notes rare discomfort when stepping on it the wrong way. - Concerns about potential impact of blood thinners on healing if excision is needed. Musculoskeletal: (-) pain PAST MEDICAL HISTORY Diagnosis Date Dyslipidemia Dyspnea on exertion Former smoker, stopped smoking in distant past HTN (hypertension) Kidney stones HARLEY on CPAP Rosacea Current Outpatient Medications Medication Sig Dispense Refill rosuvastatin (CRESTOR) 40 mg tablet Take 1 tablet by mouth daily at bedtime. 90 tablet 3 Cholecalciferol, Vitamin D3, 50 mcg (2,000 unit) cap Take 1 capsule by mouth once daily. 90 capsule 3 metoprolol tartrate, short acting, (LOPRESSOR) 25 mg tablet Take 1 tablet by mouth two times a day. 180 tablet 3 ELIQUIS 5 mg tab(s) Take 1 tablet by mouth two times a day. 180 tablet 3 losartan (COZAAR) 50 mg tablet Take 1 tablet by mouth once daily. 90 tablet 1 magnesium oxide 400 mg magnesium cap Take 1 capsule by mouth once daily. 90 capsule 3 Docusate Sodium 100 mg tab Take by mouth. TURMERIC ORAL Take by mouth once daily. doxycycline 20 mg tablet Take 1 tablet by mouth twice daily. tamsulosin ER (FLOMAX) 0.4 mg Take 1 capsule by mouth twice daily. Dr. Shaffer. acetaminophen (TYLENOL) 500 mg tablet Take 2 tablets by mouth every 6 hours. aspirin, enteric coated (ASPIRIN, ENTERIC COATED) 81 mg EC tablet Take 2 tablets by mouth once daily. glucosamine HCl/chondroitin harris (GLUCOSAMINE-CHONDROIT IN ORAL) Take 1 tablet by mouth two times a day. No current facility-administered medications for this visit. Family History Problem Relation Age of Onset other (No CAD) Father Cancer Mother , lung Cancer Brother thyroid Objective There were no vitals taken for this visit. - Cardiovascular: Dorsalis pedis and posterior tibial pulses palpable on the right foot; capillary refill time <5 seconds; skin temperature warm proximally to distally. - Skin: Hyperkeratotic lesion measuring 4mm x 5mm on the plantar aspect of the right foot with mild maceration noted. Assessment AND Plan 1. Plantar wart (B07.0) - Lesion on the plantar aspect of the right foot, measuring 5mm x 4mm today, with mild maceration noted. - Previous measurements were 6mm x 4mm in August and 5mm x 6mm in July. - Skin lines are beginning to return, indicating healing progress. - Filed down the lesion with 15 blade and applied topical acid during the visit. - Continue using Floro-Wart compound twice daily. - Discussed alternative treatment options, including laser excision, which would require approximately 3 weeks of offloading pressure post-procedure. Patient prefers to continue with conservative care for now. - Scheduled follow-up in 3-4 weeks to reassess progress. Recording using [employer] software for draft documentation of the visit was discussed with the patient/authorized personal financial representative; all questions welcomed and answered. Patient/authorized personal financial representative agreed to proceed Marly Cihld DPM Referring Provider: MARLY CHILD [[id number]] Allergies As of Date: 10/04/2024 (No Known Allergies) Date Reviewed: 10/04/2024 Reviewed by: Keya Washington MA - Fully Assessed Reason for Visit: Follow Up [171] Cmt: 1 month follow up wart right foot Primary Visit Diagnosis:Plantar wart [B07.0] Prescriptions as of 10/04/2024 - glucosamine HCl/chondroitin harris (GLUCOSAMINE-CHONDROIT IN ORAL) Take 1 tab (more content not included)... Normal [facility] CNOVon 09-04-2024 CNOV Office Visit (PODIWS ) JOCELYN LOAIZA ([id number]) 1945 M Date Time Provider Department 09/04/24 10:30 AM [facility] PODIWS During your visit today, we recorded the following information about you: Yumiko Donaldson, RN 09/05/2024 12:33 PM Signed Patient presents with: Right Foot - Established Patient, Follow Up, Wart Patient presents for follow up of right foot plantar wart. Patient is using compound W at home. Denies any pain. MEGGAN 08/14/24 Marly Child 09/04/2024 11:01 AM Signed You have been prescribed Floro wart gel (a compounded topical medication) which will be mailed to you. Apply the Floro wart gel once every day using a cotton swab directly on each wart. After application, place a light film of Vaseline around the wart and cover it with tape or a bandage. Continue using your Compound W treatment until you receive the new gel. The wart on your right foot was filed down and acid was applied today; the same treatment approach was used on two additional small callused lesions. Leave the gel on for 10 hours each day as instructed. Please return for a follow-up appointment in about one month to assess your progress. Marly Child 09/05/2024 12:33 PM Signed Subjective Jocelyn is a 78-year-old male presenting for follow-up of a plantar wart. Plantar Wart: - Wart on the plantar aspect of the second metatarsal, initially measured 5 mm x 6 mm on 08/14. - Currently using Compound W for treatment. - Denies pain associated with the wart. - Jocelyn is on anticoagulant therapy. Skin: (-) pain from right plantar lesion Objective There were no vitals taken for this visit. - Cardiovascular: Dorsalis pedis and posterior tibial pulses palpable on the right foot; capillary refill time <5 seconds. - Skin: - Right Foot: - Plantar aspect of the second metatarsal: Verruca measuring 6mm x 4mm with diverging skin lines. - Right heel and fifth metatarsal base: Porokeratotic lesions noted. 1. Plantar wart (B07.0) - Lesion on the plantar aspect of the second metatarsal measures 6mm x 4mm, similar to previous measurement on August 14. - Discussed treatment options including continued use of Compound W, referral to dermatology, or surgical removal via laser excision. - Prescribed Floro wart gel; apply daily with a cotton swab, cover surrounding area with Vaseline, and secure with a bandage. - Debrided the lesion with 15 blade and applied topical acid. - Follow-up in one month to assess progress. - if no improvement, could consider laser excision 2. Porokeratosis (Q82.8) - Identified porokeratotic lesions on the right heel and right fifth metatarsal base. - Debrided lesions with 15 blade and applied topical acid. - Advised continued use of Compound W until the prescribed Floro wart gel is received. Attestation Recording using [employer] software for draft documentation of the visit was discussed with the patient/authorized personal financial representative; all questions welcomed and answered. Patient/authorized personal financial representative agreed to proceed Marly Child DPM Referring Provider: MARLY CHILD [[id number]] Allergies As of Date: 09/04/2024 (No Known Allergies) Date Reviewed: 09/04/2024 Reviewed by: Yumiko Donaldson RN - Fully Assessed Reason for Visit: Established Patient [175] Follow Up [171] Wart [927] Primary Visit Diagnosis:Plantar wart [B07.0] Other Visit Diagnosis:Porokeratosi s [Q82.8] Prescriptions as of 09/05/2024 - rosuvastatin (CRESTOR) 40 mg tablet Take 1 tablet by mouth daily at bedtime. - Cholecalciferol, Vitamin D3, 50 mcg (2,000 unit) cap Take 1 capsule by mouth once daily. - metoprolol tartrate, short acting, (LOPRESSOR) 25 mg tablet Take 1 tablet by mouth two times a day. - ELIQUIS 5 mg tab(s) Take 1 tablet by mouth two times a day. - losartan (COZAAR) 50 mg tablet Take 1 tablet by mouth once daily. - magnesium oxide 400 mg magnesium cap Take 1 capsule by mouth once daily. - Docusate Sodium 100 mg tab Take by mouth. - TURMERIC ORAL Take by mouth once daily. - doxycycline 20 mg tablet Take 1 tablet by mouth twice daily. - tamsulosin ER (FLOMAX) 0.4 mg Take 1 capsule by mouth twice daily. Dr. Shaffer. - acetaminophen (TYLENOL) 500 mg tablet Take 2 tablets by mouth every 6 hours. - aspirin, enteric coated (ASPIRIN, ENTERIC COATED) 81 mg EC tablet Take 2 tablets by mouth once daily. - furosemide (LASIX) 20 mg tablet (Discontinued) Take 1 tablet by mouth once daily. Meds Comments as of 06/11/2024: PRN Nitro. Glucosamine Chondroitin 1103 mg bid and CoQ10 100 mg once daily. Ivermectin/Niacinimide 1%4% cream for rosacea Problem List As Of Date 09/04/2024 Noted Resolved Dyspnea on exertion [R06.09] Dyslipidemia [E78.5] Primary hypertension [I10] Former smoker, stopped smoking in distant past * HARLEY on CPAP [G47.33] Abnormal PFTs ( (more content not included)... Normal [facility] CNOVon 08-14-2024 CNOV Office Visit (PODIWS ) JOCELYN LOAIZA ([id number]) 1945 M Date Time Provider Department 08/14/24 10:30 AM [facility] PODIWS During your visit today, we recorded the following information about you: Ailin Gunn LPN 08/14/2024 12:08 PM Signed AMB ROOMING INTAKE FLOWSHEET DATA Patient presents with: Right Foot - Established Patient, Follow Up, Wart JESSY Nova Matthew 08/14/2024 12:08 PM Signed FOLLOW UP PODIATRIC OFFICE VISIT Chief Complaint: This 78 year old who presents for follow up:wart of right foot Patient presents to clinic for follow-up right foot Using compound w Does report some discomfort with increased pressure PAIN EVALUATION No data found in the last 1 encounters. Hemoglobin A1C Date Value Ref Range Status 06/11/2024 5.4 4.3 - 5.6 % Final Comment: [place] [employer] guidelines indicate that patients with HgbA1c in the range 5.7-6.4% are at increased risk for development of diabetes, and intervention by lifestyle modification may be beneficial. HgbA1c greater or equal to 6.5% is considered diagnostic of diabetes. PCP: Bella Santos MD PAST MEDICAL HISTORY Diagnosis Date Dyslipidemia Dyspnea on exertion Former smoker, stopped smoking in distant past HTN (hypertension) Kidney stones HARLEY on CPAP Rosacea Current Outpatient Medications Medication Sig Cholecalciferol, Vitamin D3, 50 mcg (2,000 unit) cap Take 1 capsule by mouth once daily. metoprolol tartrate, short acting, (LOPRESSOR) 25 mg tablet Take 1 tablet by mouth two times a day. ELIQUIS 5 mg tab(s) Take 1 tablet by mouth two times a day. losartan (COZAAR) 50 mg tablet Take 1 tablet by mouth once daily. rosuvastatin (CRESTOR) 40 mg tablet Take 1 tablet by mouth daily at bedtime. magnesium oxide 400 mg magnesium cap Take 1 capsule by mouth once daily. Docusate Sodium 100 mg tab Take by mouth. TURMERIC ORAL Take by mouth once daily. doxycycline 20 mg tablet Take 1 tablet by mouth twice daily. tamsulosin ER (FLOMAX) 0.4 mg Take 1 capsule by mouth twice daily. Dr. Shaffer. acetaminophen (TYLENOL) 500 mg tablet Take 2 tablets by mouth every 6 hours. aspirin, enteric coated (ASPIRIN, ENTERIC COATED) 81 mg EC tablet Take 2 tablets by mouth once daily. No current facility-administered medications for this visit. ALLERGIES No Known Allergies PAST SURGICAL HISTORY Procedure Laterality Date COLONOSCOPY 2006 COLONOSCOPY FLX DX W/COLLJ SPEC WHEN PFRMD 02/15/2019 Colonoscopy HERNIA REPAIR HX childhood and 2006 x3 PAST SURGICAL HISTORY OF lithotripsy, multiple PAST SURGICAL HISTORY OF laser prostate TONSILLECTOMY HX Physical Exam: OBJECTIVE: Constitutional: Pt is a well developed 78 year old male who is alert, oriented, cooperative and in no apparent distress. Eyes: Following during examination. No redness or drainage. Respiratory: RR normal and nonlabored. Even breathing. No evidence of distress. Psychology: Patient is engaged during conversation. Normal affect and mood. Does not appear depressed or anxious. NVSI unchanged from previous visit. Dermatological: 5 mm x 6 mm verruca to right foot Iatrogenic abrasion of right foot due to adhesive bandage Musculoskeletal/Orthop aedic: Patient has no pain to palpation of right foot ASSESSMENT: (B07.0) Plantar wart (primary encounter diagnosis) PLAN: Discussed wart of right foot Wart does show reduction in size compared to last visit. Discussed options not limited to continued compound w vs rx cream vs laser excision Patient has opted to continue with compound w. Wart was debrided today with 15 blade. Tca applied under occlusion Discussed iatragenic lesion. Advised against strong adhesive bandage Follow-up in 3 weeks KASANDRA Mcdonough Matthew 08/14/2024 11:19 AM Signed Trichloroacetic acid (TCA) has been applied to the plantar warts. Rinse off in 12 hours and keep clean and dry. May bathe and shower normally starting the day after treatment The area is expected to burn and blister in about 1-3 days, if painful soak in plain, cool water. If blistered, you may drain the blister with a clean, STERILIZED needle and apply OTC antibiotic ointment and band aid to area. Repeat 2-3 times daily as needed. Tylenol or Aleve as needed for pain, provided you have no allergies to either of these. Keep scheduled follow up appointment to have wart(s) re-evaluated and/or additional treatments. Referring Provider: MARLY CHILD [[id number]] Allergies As of Date: 08/14/2024 (No Known Allergies) Date Reviewed: 08/14/2024 Reviewed by: Ailin Gunn LPN - Fully Assessed Reason for Visit: Established Patient [175] Follow Up [171] Wart [927] Primary Visit Diagnosis:Plantar wart [B07.0] Prescriptions as of 08/14/2024 - Cholecalciferol, Vitamin D3, 50 mcg (2,000 unit) cap Take (more content not included)... Normal [facility] CNOVon 07-12-2024 CNOV Office Visit (PODIWS ) JOCELYN LOAIZA ([id number]) 1945 M Date Time Provider Department 07/12/24 11:30 AM [facility] During your visit today, we recorded the following information about you: Yumiko Donaldson, TIMOTHY 07/12/2024 11:48 AM Signed Patient presents with: Right Foot - Established Patient, Follow Up, Wart Left Foot - Established Patient, Itching Patient presents for 3 week follow up right foot plantar wart. States he has been using Compound W at home on it. Also states that he has had itching between his 3rd and 4th and 4th and 5th toes for the last few months, denies any rash or ulcers. MEGGAN 06/19/24 Marly Child 07/12/2024 11:48 AM Signed FOLLOW UP PODIATRIC OFFICE VISIT Chief Complaint: This 78 year old who presents for follow up:wart of right foot. Patient presents to clinic for follow-up wart of right foot. Has been applying compound w to the wart. Here for evaluation Denies any pain to his right foot. Does report some occasional discomfort with stepping. PAIN EVALUATION No data found in the last 1 encounters. Hemoglobin A1C Date Value Ref Range Status 06/11/2024 5.4 4.3 - 5.6 % Final Comment: [place] [employer] guidelines indicate that patients with HgbA1c in the range 5.7-6.4% are at increased risk for development of diabetes, and intervention by lifestyle modification may be beneficial. HgbA1c greater or equal to 6.5% is considered diagnostic of diabetes. PCP: Bella Santos MD PAST MEDICAL HISTORY Diagnosis Date Dyslipidemia Dyspnea on exertion Former smoker, stopped smoking in distant past HTN (hypertension) Kidney stones HARLEY on CPAP Rosacea Current Outpatient Medications Medication Sig Cholecalciferol, Vitamin D3, 50 mcg (2,000 unit) cap Take 1 capsule by mouth once daily. metoprolol tartrate, short acting, (LOPRESSOR) 25 mg tablet Take 1 tablet by mouth two times a day. ELIQUIS 5 mg tab(s) Take 1 tablet by mouth two times a day. losartan (COZAAR) 50 mg tablet Take 1 tablet by mouth once daily. rosuvastatin (CRESTOR) 40 mg tablet Take 1 tablet by mouth daily at bedtime. magnesium oxide 400 mg magnesium cap Take 1 capsule by mouth once daily. Docusate Sodium 100 mg tab Take by mouth. TURMERIC ORAL Take by mouth once daily. doxycycline 20 mg tablet Take 1 tablet by mouth twice daily. tamsulosin ER (FLOMAX) 0.4 mg Take 1 capsule by mouth twice daily. Dr. Shaffer. acetaminophen (TYLENOL) 500 mg tablet Take 2 tablets by mouth every 6 hours. aspirin, enteric coated (ASPIRIN, ENTERIC COATED) 81 mg EC tablet Take 2 tablets by mouth once daily. No current facility-administered medications for this visit. ALLERGIES No Known Allergies PAST SURGICAL HISTORY Procedure Laterality Date COLONOSCOPY 2005 COLONOSCOPY FLX DX W/COLLJ SPEC WHEN PFRMD 02/15/2019 Colonoscopy HERNIA REPAIR HX childhood and 2007 x3 PAST SURGICAL HISTORY OF lithotripsy, multiple PAST SURGICAL HISTORY OF laser prostate TONSILLECTOMY HX Physical Exam: OBJECTIVE: Constitutional: Pt is a well developed 78 year old male who is alert, oriented, cooperative and in no apparent distress. Eyes: Following during examination. No redness or drainage. Respiratory: RR normal and nonlabored. Even breathing. No evidence of distress. Psychology: Patient is engaged during conversation. Normal affect and mood. Does not appear depressed or anxious. NVSI unchanged from previous visit. Dermatological: 8 mm x 7 mm verruca to right foot No other open wounds noted Musculoskeletal/Orthop aedic: Patient has pain to palpation of right foot at site of wart ASSESSMENT: (B07.0) Plantar wart (primary encounter diagnosis) PLAN: 1. Patient elects to proceed with additional chemical treatment of verruca at this time. Aware of risks, benefits of treatment. 2. Hyperkeratosis overlying lesions was debrided with 15 blade. Treatment number 2 applied, using TCA . 3. We discussed home instructions. Continue with compound w 4. RTC: 4 weeks. If lesion fails to improve, could consider laser Patient was instructed to call immediately if questions, concerns, pain arise prior to next appt. Discussed complaint of itching. No open wounds. Recommend trying powder between toes KASANDRA Mcdonough Matthew 07/12/2024 11:37 AM Signed Trichloroacetic acid (TCA) has been applied to the plantar warts. Rinse off in 12 hours and keep clean and dry. May bathe and shower normally starting the day after treatment The area is expected to burn and blister in about 1-3 days, if painful soak in plain, cool water. If blistered, you may drain the blister with a clean, STERILIZED needle and apply OTC antibiotic ointment and band aid to area. Repeat 2-3 times daily as needed. Tylenol or Aleve as needed for pain, provided you have no allergies to either of these. (more content not included)... Normal [facility] CNOVon 06-19-2024 CNOV Office Visit (PODIWS ) JOCELYN LOAIZA ([id number]) 1945 M Date Time Provider Department 06/19/24 3:30 PM [facility] CHILD PODIWS During your visit today, we recorded the following information about you: Keya Washington MA 06/19/2024 3:58 PM Signed Patient presents with: Right Foot - New: Plantar wart AMB ROOMING INTAKE FLOWSHEET DATA Pain Pain Level: 2 Pain Location: Foot-Right Description: Sharp Duration Amount of Time: 1 Duration Units: Minutes Frequency: Intermittent Intervention/Comfort measure: Reposition, Positioning Comments: Pain is sharp, but momentary when I step down on the ball of my foot. Patient states he has had a wart on the ball of his foot for several months. He has tried OTC wart removals and did not work. Taking no med's for the pain.Mateusz Matthew 06/19/2024 3:58 PM Signed Consultation requested by Dr. Santos for an opinion regarding wart. My final recommendations will be communicated back to the requesting physician by way of shared Medical record or letter to requesting physician via US mail. Initial Podiatric Office Visit: Chief Complaint: This 78 year old male who presents with chief complaint:painful wart to right foot HPI Patient presents to clinic for evaluation of right foot Complains of wart to the right foot Has been present for a couple of months Hurts with pressure Tried over the counter medication but no improvement. PAIN EVALUATION 06/12/2024 1530 Pain Level: 2 Pain Location: Foot-Right Description: Sharp Duration Amount of Time: 1 Duration Units: Minutes Frequency: Intermittent Intervention/Comfort measure: Reposition;Positioning Comments: Pain is sharp, but momentary when I step down on the ball of my foot. Hemoglobin A1C (%) Date Value 06/11/2024 5.4 11/24/2023 5.2 05/05/2023 5.4 11/04/2022 5.5 05/04/2022 5.6 05/05/2021 5.8 06/02/2019 5.2 PCP: Bella Santos MD PAST MEDICAL HISTORY Diagnosis Date Dyslipidemia Dyspnea on exertion Former smoker, stopped smoking in distant past HTN (hypertension) Kidney stones HARLEY on CPAP Rosacea Current Outpatient Medications Medication Sig metoprolol tartrate, short acting, (LOPRESSOR) 25 mg tablet Take 1 tablet by mouth two times a day. ELIQUIS 5 mg tab(s) Take 1 tablet by mouth two times a day. losartan (COZAAR) 50 mg tablet Take 1 tablet by mouth once daily. rosuvastatin (CRESTOR) 40 mg tablet Take 1 tablet by mouth daily at bedtime. Cholecalciferol, Vitamin D3, 50 mcg (2,000 unit) cap Take 1 capsule by mouth once daily. magnesium oxide 400 mg magnesium cap Take 1 capsule by mouth once daily. Docusate Sodium 100 mg tab Take by mouth. TURMERIC ORAL Take by mouth once daily. doxycycline 20 mg tablet Take 1 tablet by mouth twice daily. tamsulosin ER (FLOMAX) 0.4 mg Take 1 capsule by mouth twice daily. Dr. Shaffer. acetaminophen (TYLENOL) 500 mg tablet Take 2 tablets by mouth every 6 hours. aspirin, enteric coated (ASPIRIN, ENTERIC COATED) 81 mg EC tablet Take 2 tablets by mouth once daily. No current facility-administered [...] Social History Tobacco Use Smoking status: Former Current packs/day: 0.00 Average packs/day: 1 pack/day for 7.0 years (7.0 ttl pk-yrs) Types: Cigarettes Start date: 12/27/1969 Quit date: 12/27/1976 Years since quittin.5 Smokeless tobacco: Never Tobacco comments: on and off Vaping Use Vaping status: Never Used Substance Use Topics Alcohol use: Yes Comment: [...] Exam: Constitutional: Pt is a well developed 78 year old male who is alert, oriented and cooperative Eyes: Following during examination. No re (more content not included)... Normal [facility] CBC W Auto Differential pane l (Bld)on 06-11-2024 Basophils (Bld) [#/Vol] 0.06 10*3/uL Normal <0.11 [facility] Comment on above: Order Comment: Speci men Type: BLOOD SPECIMENOrdering Facility: [facility] Address: [address] [place] [address] Performed By: #### 5 7021-8 ####[facility] LABCLIA [id number] [place] [address] [place] Basophils/100 WBC (Bld) 1.1 % Normal [facility] Comment on above: Order Comment: Speci men Type: BLOOD SPECIMENOrdering Facility: [facility] Address: [address] [place] [address] Performed By: #### 5 7021-8 ####[facility] LABCLIA [id number] [place] [address] [place] Differential cell count method Nom (Bld) Auto Normal [facility] Comment on above: Order Comment: Speci men Type: BLOOD SPECIMENOrdering Facility: [facility] Address: [address] [place] [address] Performed By: #### 5 7021-8 ####[facility] LABCLIA [id number] [place] [address] [place] Eosinophils (Bld) [#/Vol] 0.18 10*3/uL Normal <0.46 [facility] Comment on above: Order Comment: Speci men Type: BLOOD SPECIMENOrdering Facility: [facility] Address: [address] [place] [address] Performed By: #### 5 7021-8 ####[facility] LABCLIA [id number] [place] [address] [place] Eosinophils/100 WBC (Bld) 3.2 % Normal [facility] Comment on above: Order Comment: Speci men Type: BLOOD SPECIMENOrdering Facility: [facility] Address: [address] [place] [address] Performed By: #### 5 7021-8 ####[facility] LABCLIA [id number] [place] [address] [place] Erythrocyte distribution width (RBC) [Ratio] 12.1 % Normal 11.5-15.0 [facility] Comment on above: Order Comment: Speci men Type: BLOOD SPECIMENOrdering Facility: [facility] Address: [address] [place] [address] Performed By: #### 5 7021-8 ####[facility] LABCLIA [id number] [place] [address] [place] Hematocrit (Bld) [Volume fraction] 52.6 % High 39.0-51.0 [facility] Comment on above: Order Comment: Speci men Type: BLOOD SPECIMENOrdering Facility: [facility] Address: [address] [place] [address] Performed By: #### 5 7021-8 ####[facility] LABCLIA [id number] [place] [address] [place] Hemoglobin (Bld) [Mass/Vol] 17.1 g/dL High 13.0-17.0 [facility] Comment on above: Order Comment: Speci men Type: BLOOD SPECIMENOrdering Facility: [facility] Address: [address] [place] [address] Performed By: #### 5 7021-8 ####[facility] LABCLIA [id number] [place] [address] [place] Immature granulocytes (Bld) [#/Vol] 0.03 10*3/uL Normal <0.10 [facility] Comment on above: Order Comment: Speci men Type: BLOOD SPECIMENOrdering Facility: [facility] Address: [address] [place] [address] Performed By: #### 5 7021-8 ####[facility] LABCLIA [id number] [place] [address] [place] Immature granulocytes/100 WBC (Bld) 0.5 % Normal [facility] Comment on above: Order Comment: Speci men Type: BLOOD SPECIMENOrdering Facility: [facility] Address: [address] [place] [address] Performed By: #### 5 7021-8 ####[facility] LABCLIA [id number] [place] [address] [place] Lymphocytes (Bld) [#/Vol] 1.51 10*3/uL Normal 1.00-4.00 [facility] Comment on above: Order Comment: Speci men Type: BLOOD SPECIMENOrdering Facility: [facility] Address: [address] [place] [address] Performed By: #### 5 7021-8 ####[facility] LABCLIA [id number] [place] [address] [place] Lymphocytes/100 WBC (Bld) 27.1 % Normal [facility] Comment on above: Order Comment: Speci men Type: BLOOD SPECIMENOrdering Facility: [facility] Address: [address] [place] [address] Performed By: #### 5 7021-8 ####[facility] LABCLIA [id number] [place] [address] [place] MCH (RBC) [Entitic mass] 30.8 pg Normal 26.0-34.0 [facility] Comment on above: Order Comment: Speci men Type: BLOOD SPECIMENOrdering Facility: [facility] Address: [address] [place] [address] Performed By: #### 5 7021-8 ####[facility] LABIA [id number] [place] [address] [place] MCHC (RBC) [Mass/Vol] 32.5 g/dL Normal 30.5-36.0 [facility] Comment on above: Order Comment: Speci men Type: BLOOD SPECIMENOrdering Facility: [facility] Address: [address] [place] [address] Performed By: #### 5 7021-8 ####[facility] LABCLIA [id number] [place] [address] [place] MCV (RBC) [Entitic vol] 94.8 fL Normal 80.0-100.0 [facility] Comment on above: Order Comment: Speci men Type: BLOOD SPECIMENOrdering Facility: [facility] Address: [address] [place] [address] Performed By: #### 5 7021-8 ####[facility] LABCLIA [id number] [place] [address] [place] Monocytes (Bld) [#/Vol] 0.69 10*3/uL Normal <0.87 [facility] Comment on above: Order Comment: Speci men Type: BLOOD SPECIMENOrdering Facility: [facility] Address: [address] [place] [address] Performed By: #### 5 7021-8 ####[facility] LABCLIA [id number] [place] [address] [place] Monocytes/100 WBC (Bld) 12.4 % Normal [facility] Comment on above: Order Comment: Speci men Type: BLOOD SPECIMENOrdering Facility: [facility] Address: [address] [place] [address] Performed By: #### 5 7021-8 ####[facility] LABCLIA [id number] [place] [address] [place] Neutrophils (Bld) [#/Vol] 3.10 10*3/uL Normal 1.45-7.50 [facility] Comment on above: Order Comment: Speci men Type: BLOOD SPECIMENOrdering Facility: [facility] Address: [address] [place] [address] Performed By: #### 5 7021-8 ####[facility] LABCLIA [id number] [place] [address] [place] Neutrophils/100 WBC (Bld) 55.7 % Normal [facility] Comment on above: Order Comment: Speci men Type: BLOOD SPECIMENOrdering Facility: [facility] Address: [address] [place] [address] Performed By: #### 5 7021-8 ####[facility] LABCLIA [id number] [place] [address] [place] Nucleated RBC (Bld) [#/Vol] 10*3/uL Normal <0.01 [facility] Comment on above: Order Comment: Speci men Type: BLOOD SPECIMENOrdering Facility: [facility] Address: [address] [place] [address] Performed By: #### 5 7021-8 ####[facility] LABCLIA [id number] [place] [address] [place] Nucleated RBC/100 WBC (Bld) [Ratio] 0.0 /100 WBC Normal [facility] Comment on above: Order Comment: Speci men Type: BLOOD SPECIMENOrdering Facility: [facility] Address: [address] [place] [address] Performed By: #### 5 7021-8 ####[facility] LABCLIA [id number] [place] [address] [place] Platelet mean volume (Bld) [Entitic vol] 9.5 fL Normal 9.0-12.7 [facility] Comment on above: Order Comment: Speci men Type: BLOOD SPECIMENOrdering Facility: [facility] Address: [address] [place] [address] Performed By: #### 5 7021-8 ####[facility] LABCLIA [id number] [place] [address] [place] Platelets (Bld) [#/Vol] 268 10*3/uL Normal 150-400 [facility] Comment on above: Order Comment: Speci men Type: BLOOD SPECIMENOrdering Facility: [facility] Address: [address] [place] [address] Performed By: #### 5 7021-8 ####[facility] LABCLIA [id number] [place] [address] [place] RBC (Bld) [#/Vol] 5.55 10*6/uL Normal 4.20-6.00 [facility] Comment on above: Order Comment: Speci men Type: BLOOD SPECIMENOrdering Facility: [facility] Address: [address] [place] [address] Performed By: #### 5 7021-8 ####[facility] LABCLIA [id number] [place] [id number] [place] WBC (Bld) [#/Vol] 5.57 10*3/uL Normal 3.70-11.00 [facility] Comment on above: Order Comment: Speci men Type: BLOOD SPECIMENOrdering Facility: [facility] Address: [address] [place] [address] Performed By: #### 5 7021-8 ####[facility] LABCLIA [id number] [place] [id number] [place] CNOVon 06-11-2024 CNOV Office Visit (FAMPWS ) JOCELYN LOAIZA ([id number]) 1945 M Date Time Provider Department 06/11/24 6:40 PM [facility] your visit today, we recorded the following information about you: Pulse Respiration Blood pressure Weight 64/minute 16/minute 138/80 77.8 kg Bella Santos MD 06/11/2024 8:24 PM Signed Chief Complaint Patient presents with: F/U 6 Month HPI Jocelyn Loaiza is a 78 year old male who presents here today for his pre scheduled 6 month follow up and suture removal.. Pt tripped and fell while in [place] on 05/31, laceration above right eye, received 6 stitches and requesting removal today while in office. Denies any injury related to his fall. No LOC or concussion symptoms. Did not have CT done. No bowel, GI, or urinary issues. Has Anusol rectal cream prn and Docusate to use as needed. Taking Flomax 0.4 mg daily. Following with Urologist Dr. Shaffer. GERD sx have been controlled without medications. HTN AND A-fib: Checking BP at home, reports BP hasn't been the greatest this past week with readings of 150/80's. Notes over the weekend it was better. Denies any chest pains, dizziness, or SOB. Taking Losartan 50 mg daily and Lopressor 25 mg 1 pill BID. Follows with Cardio Dr. Agarwal. Taking Eliquis 5 mg 1 pill BID. Depression/LIANNA: Stable, no longer on any medications. Was on Prozac and Zoloft in past but didn't have much difference with medications. Doing some grief counseling with Hospice. Lipid: Hx of elevated glucose, but not on any medications at this time. Is taking Crestor 40 mg daily and ASA 81 mg daily. Tries to watch diet, reports he needs to do better with this. Exercising and enjoys hiking. Rosacea: Taking Doxycyline 20 mg 1 pill BID. Still has lesion on bottom of right foot; not improved with OTC treatment. HM - Declines Hep C screening. Has Adv Dir/Living Will. Agreeable to Covid vaccine. Past medical history, appointments, medications, allergies reviewed. [...] Medication Sig metoprolol tartrate, short acting, (LOPRESSOR) 25 mg tablet Take 1 tablet by mouth two times a day. ELIQUIS 5 mg tab(s) Take 1 tablet by mouth two times a day. losartan (COZAAR) 50 mg tablet Take 1 tablet by mouth once daily. rosuvastatin (CRESTOR) 40 mg tablet Take 1 tablet by mouth daily at bedtime. Cholecalciferol, Vitamin D3, 50 mcg (2,000 unit) cap Take 1 capsule by mouth once daily. magnesium oxide 400 mg magnesium cap Take 1 capsule by mouth once daily. Docusate Sodium 100 mg tab Take by mouth. TURMERIC ORAL Take by mouth once daily. doxycycline 20 mg tablet Take 1 tablet by mouth twice daily. tamsulosin ER (FLOMAX) 0.4 mg Take 1 capsule by mouth twice daily. Dr. Shaffer. acetaminophen (TYLENOL) 500 mg tablet Take 2 tablets by mouth every 6 hours. aspirin, enteric coated (ASPIRIN, ENTERIC COATED) 81 mg EC tablet Take 2 tablets by mouth once daily. [DISCONTINUED] furosemide (LASIX) 20 mg tablet Take 1 tablet by mouth once daily. No current facility-administered medications on file prior to visit. Social History Social History Tobacco Use Smoking status: Former Current packs/day: 0.00 Average packs/day: 1 pack/day for 7.0 years (7.0 ttl pk-yrs) Types: Cigarettes Start date: 12/27/1969 Quit date: 12/27/1976 Years since quittin.4 Smokeless tobacco: Never Tobacco comments: on and off Vaping Use Vaping status: Never Used Substance Use Topics Alcohol use: Yes Comment: occasional Drug use: No EXAM: BP 138/80 Pulse 64 Resp 16 Wt 77.8 kg (171 lb 8.3 oz) BMI 26.47 kg/m? General Appearance: Well appearing, alert, in no acute distress, well-hydrated, well nourished.. Skin: 6 sutures removed from right eyebrow without difficulty. Plantar wart at ball of right foot. Lungs: Lungs clear to auscultation. No wheezing, rhonchi, rales.. Heart: RRR without murmur, gallop, or rubs. No ectopy. Health Maintenance List Hepatitis C Screening Never done Covid-19 Vaccine( season) due on 12/25/2023 Advance Directive Discussion due on (more content not included)... Normal [facility] Comprehensive metabolic 2000 panelon 06-11-2024 Albumin [Mass/Vol] 4.4 g/dL Normal 3.9-4.9 [facility] Comment on above: Order Comment: Speci men Type: BLOOD SPECIMENOrdering Facility: [facility] Address: [address] [place] [address] Performed By: #### 2 4323-8 ####[facility] LABORATORYCLIA [id number] [place] [address] [place]#### 83692-6 ####[facility]ORATORYCLIA [id number] [place] [address] [place] [facility] LABCLIA [id number] [place] [address] [place] ALP [Catalytic activity/Vol] 57 U/L Normal 38-113 [facility] Comment on above: Order Comment: Speci men Type: BLOOD SPECIMENOrdering Facility: [facility] Address: [address] [place] [address] Performed By: #### 2 4323-8 ####[facility]ATORYCLIA [id number] [place] [address] [place]#### 80281-5 ####[facility]ATORYCLIA [id number] [address] STATES OF [facility] LABCLIA [id number] [place] [address] [place] ALT With P-5'-P [Catalytic activity/Vol] 29 U/L Normal 10-54 [facility] Comment on above: Order Comment: Speci men Type: BLOOD SPECIMENOrdering Facility: [facility] Address: [address] [place] [address] Performed By: #### 2 4323-8 ####[facility]ATORYCLIA [id number] [place] [address] [place]#### 02702-2 ####[facility]ORYCLIA [id number] [place] [address] [place] [facility]CL[facility] [id number] [place] [address] [place] Anion gap [Moles/Vol] 13 mmol/L Normal 8-15 [facility] Comment on above: Order Comment: Speci men Type: BLOOD SPECIMENOrdering Facility: [facility] Address: [address] [place] [address] Performed By: #### 2 4323-8 ####[facility]ATORYCLIA [id number] [place] [address] [place]#### 89896-7 ####[facility]ATORYCLIA [id number] [place] [address] [place] [facility] LABCLIA [id number] [address] [address] [place] AST With P-5'-P [Catalytic activity/Vol] 28 U/L Normal 14-40 [facility] Comment on above: Order Comment: Speci men Type: BLOOD SPECIMENOrdering Facility: [facility] Address: [address] [place] [address] Performed By: #### 2 4323-8 ####[facility]ATORYCLIA [id number] [place] [address] [place]#### 64699-6 ####[facility]ORYCLIA [id number] [place], [place] [address] [place] [address] STATES OF [facility] LABCLIA [id number] [place] [address] [place] Bilirubin [Mass/Vol] 0.5 mg/dL Normal 0.2-1.3 [facility] Comment on above: Order Comment: Speci men Type: BLOOD SPECIMENOrdering Facility: [facility] Address: [address] [place], [place] [address] Performed By: #### 2 4323-8 ####[facility]ATORYCLIA [id number] [place] [address] [place]#### 00012-6 ####[facility]ATORYCLIA [id number] [place] [address] [place] [facility] LABCLIA [id number] [place] [id number] [place] Calcium [Mass/Vol] 9.4 mg/dL Normal 8.5-10.2 [facility] Comment on above: Order Comment: Speci men Type: BLOOD SPECIMENOrdering Facility: [facility] Address: [address] [place] [id number] Performed By: #### 2 4323-8 ####[facility]ATORYCLIA [id number] [place] [address] [place]#### 37501-3 ####[facility]ORYCLIA [id number] [place] [address] [place] [facility] LABCLIA [id number] [place] [address] [place] Chloride [Moles/Vol] 103 mmol/L Normal 98-107 [facility] Comment on above: Order Comment: Speci men Type: BLOOD SPECIMENOrdering Facility: [facility] Address: [facility] [place] [address] Performed By: #### 2 4323-8 ####[facility]ATORYCLIA [id number] [place] [address] [place]#### 10506-6 ####[facility]ATORYCLIA [id number] [place], [place] [address] [place] [address] STATES OF [facility] LABCLIA [id number] [place] [address] [place] CO2 [Moles/Vol] 24 mmol/L Normal 22-30 [facility] Comment on above: Order Comment: Speci men Type: BLOOD SPECIMENOrdering Facility: [facility] Address: [address] [place] [address] Performed By: #### 2 4323-8 ####[facility]ATORYCLIA [id number] [place] [address] [place]#### 11889-8 ####[facility]ORYCLIA [id number] [place] [address] [place] [facility] LABCLIA [id number] [place] [address] [place] Creatinine [Mass/Vol] 0.94 mg/dL Normal 0.73-1.22 [facility] Comment on above: Order Comment: Speci men Type: BLOOD SPECIMENOrdering Facility: [facility] Address: [address] [place] [address] Performed By: #### 2 4323-8 ####[facility] LABORATORYCLIA [id number] [address] OF [place]#### 47444-1 ####[facility]ORATORYCLIA [id number] [address] LABCLIA [id number] [address] Creatinine and Glomerular filtration rate.predicted panel (S/P/Bld) 83 mL/min/1.73m??? Normal >=60 [facility] Comment on above: Order Comment: Silverio men Type: BLOOD SPECIMENOrdering Facility: [facility] Address: [address] [place] [address] Result Comment: Sameera mated Glomerular Filtration Rate (eGFR) is calculated using the 2020 CKD-EPI creatinine equation. This equation utilizes serum creatinine, sex, and age as parameters. The creatinine assay has traceable calibration to isotope dilution-mass spectrometry. Refer to KDIGO guidelines for clinical interpretation. In patients with unstable renal function, e.g. those with acute kidney injury, the eGFR may not accurately reflect actual GFR. Performed By: #### 2 4323-8 ####[facility]ORATORYCLIA [id number] [address] OF [place]#### 99044-6 ####[facility] LABORATORYCLIA [id number] [address] LABCLIA [id number] [place] [address] [place] Glucose [Mass/Vol] 91 mg/dL Normal 74-99 [facility] Comment on above: Order Comment: Silverio austin Type: BLOOD SPECIMENOrdering Facility: [facility] Address: [address] [place] [address] Result Comment: The [place] Diabetes Association (ADA) provides guidance for cutoff values for fasting glucose and random glucose. The ADA defines fasting as no caloric intake for at least 8 hours. Fasting plasma glucose results between 100 to 125 mg/dL indicate increased risk for diabetes (prediabetes). Fasting plasma glucose results greater than or equal to 126 mg/dL meet the criteria for diagnosis of diabetes. In the absence of unequivocal hyperglycemia, results should be confirmed by repeat testing. In a patient with classic symptoms of hyperglycemia or hyperglycemic crisis, random plasma glucose results greater than or equal to 200 mg/dL meet the criteria for diagnosis of diabetes. Reference: Standards of Medical Care in Diabetes 2016, [place] Diabetes Association. Diabetes Care. 2016.39(Suppl 1). Performed By: #### 2 4323-8 ####[facility]ATORYCLIA [id number] [place] [address] [place]#### 82231-1 ####[facility] LABORATORYCLIA [id number] [address] LABCLIA [id number] [place] [address] [place] Potassium [Moles/Vol] 5.6 mmol/L High 3.7-5.1 [facility] Comment on above: Order Comment: Speci men Type: BLOOD SPECIMENOrdering Facility: [facility] Address: [address] [place] [address] Performed By: #### 2 4323-8 ####[facility]ATORYCLIA [id number] [place] [address] [place]#### 90848-4 ####[facility]ORYCLIA [id number] [address] LABCLIA [id number] [place] [address] [place] Protein [Mass/Vol] 7.2 g/dL Normal 6.3-8.0 [facility] Comment on above: Order Comment: Speci men Type: BLOOD SPECIMENOrdering Facility: [facility] Address: [address] [place] [address] Performed By: #### 2 4323-8 ####[facility]ATORYCLIA [id number] [place] [address] [place]#### 13777-3 ####[facility]ATORYCLIA [id number] [place] [address] [place] [facility] LABCLIA [id number] [place] [address] [place] Sodium [Moles/Vol] 140 mmol/L Normal 136-144 [facility] Comment on above: Order Comment: Speci men Type: BLOOD SPECIMENOrdering Facility: [facility] Address: [address] [place] [address] Performed By: #### 2 4323-8 ####[facility]ATORYCLIA [id number] [place] [address] [place]#### 35115-3 ####[facility]ATORYCLIA [id number] [place], [place] [address] [place] [address] STATES OF [facility] LABCLIA [id number] [place] [address] [place] Urea nitrogen [Mass/Vol] 19 mg/dL Normal 9-24 [facility] Comment on above: Order Comment: Speci men Type: BLOOD SPECIMENOrdering Facility: [facility] Address: [address] [place] [address] Performed By: #### 2 4323-8 ####[facility]ATORYCLIA [id number] [place] [address] [place]#### 30371-2 ####[facility]ATORYCLIA [id number] [place], [place] [address] [place] [address] STATES OF [facility] LABCLIA [id number] [place] [address] [place] HbA1c (Bld)on 06-11-2024 Average glucose Estimated from glycated hemoglobin (Bld) [Mass/Vol] 108 mg/dL Normal [facility] Comment on above: Order Comment: Speci men Type: BLOOD SPECIMEN Ordering [facility]: [facility] Address: [address] [place] [address] Result Comment: eAG: (Estimated average glucose) is a calculated value from HgbA1c and is personal financial representative of the average blood glucose level in the last 2-3 month period. Performed By: #### 2 4323-8, 68733-1 #### [facility] CLIA [id number] [address] [place], [place] [address] [place] [address] [place] HbA1c (Bld) [Mass fraction] 5.4 % Normal 4.3-5.6 [facility] Comment on above: Order Comment: Speci men Type: BLOOD SPECIMEN [facility]ing [facility]: [facility] Address: [address] [place] [address] Result Comment: [place] Diabetes Association guidelines indicate that patients with HgbA1c in the range 5.7-6.4% are at increased risk for development of diabetes, and intervention by lifestyle modification may be beneficial. HgbA1c greater or equal to 6.5% is considered diagnostic of diabetes. Performed By: #### 2 4323-8, 22773-5 #### [facility] CLIA [id number] [address] [place] [address] [place] Lipid 1996 panelon 5 Cholesterol [Mass/Vol] 151 mg/dL Normal <200 [facility] Comment on above: Order Comment: Speci men Type: BLOOD SPECIMENOrdering Facility: [facility] Address: [address] [place] [address] Result Comment: <200 mg/dL, Desirable 200-239 mg/dL, Borderline high >239 mg/dL, High Performed By: #### 2 4323-8 ####[facility]ORATORYCLIA [id number] [place] [address] [place]#### 59005-3 ####[facility]ATORYCLIA [id number] [place] [address] [place] [facility] LABCLIA [id number] [place] [address] [place] Cholesterol in HDL [Mass/Vol] 43 mg/dL Normal >39 [facility] Comment on above: Order Comment: Speci men Type: BLOOD SPECIMENOrdering Facility: [facility] Address: [address] [place] [address] Result Comment: 40-5 9 mg/dL, Acceptable >59 mg/dL, High: Negative risk factor for coronary heart disease <40 mg/dL, Low: Positive risk factor for coronary heart disease Performed By: #### 2 4323-8 ####[facility]ATORYCLIA [id number] [address] [place]#### 63715-7 ####[facility]ORATORYCLIA [id number] [address] LABCLIA [id number] [address] STATES [facility] Cholesterol in LDL [Mass/Vol] 88 mg/dL Normal <100 [facility] Comment on above: Order Comment: Speci men Type: BLOOD SPECIMENOrdering Facility: [facility] Address: [address] [place] [address] Result Comment: <100 mg/dL, Optimal 100-129 mg/dL, Near optimal/above optimal 130-159 mg/dL, Borderline high 160-189 mg/dL, High >189 mg/dL, Very high Secondary prevention optimal LDL Cholesterol levels are recommended to be < 70 mg/dL Performed By: #### 2 4323-8 ####[facility]ATORYCLIA [id number] [address] [place]#### 82497-1 ####[facility]ORATORYCLIA [id number] [address] LABCLIA [id number] [address] [place] Cholesterol in LDL/Cholesterol in HDL [Mass ratio] 2.05 {ratio} Normal <2.54 [facility] Comment on above: Order Comment: Speci men Type: BLOOD SPECIMENOrdering Facility: [facility] Address: [address] [place] [address] Result Comment: Refe mervatce: 1. National Cholesterol Education Program ATP III Guideline At-A-Glance Quick Desk Reference: National Heart, Lung, and Blood [place]. National Institutes of Health. 2001: NIH Publication No. 01-3305. 2. An International Atherosclerosis Society position paper: global recommendations for the management of dyslipidemia: executive summary, Atherosclerosis. 2014: 232(2):410-413. Performed By: #### 2 4323-8 ####[facility]ATORYCLIA [id number] [address]#### 11044-6 ####[facility] LABORATORYCLIA [id number] [address] LABCLIA [id number] [address] [place] Cholesterol in VLDL [Mass/Vol] 20 mg/dL Normal <30 [facility] Comment on above: Order Comment: Speci men Type: BLOOD SPECIMENOrdering Facility: [facility] Address: [address] [place] [address] Performed By: #### 2 4323-8 ####[facility] LABORATORYCLIA [id number] [address]#### 85518-0 ####[facility]ATORYCLIA [id number] [address] LABCLIA [id number] [address] STATES [facility] Cholesterol non HDL [Mass/Vol] 108 mg/dL Normal <130 [facility] Comment on above: Order Comment: Speci men Type: BLOOD SPECIMENOrdering Facility: [facility] Address: [address] [place] [address] Result Comment: <130 mg/dL, Optimal 130-159 mg/dL, Near optimal/above optimal 160-189 mg/dL, Borderline high 190-219 mg/dL, High >219 mg/dL, Very high Secondary prevention optimal non HDL Cholesterol levels are recommended to be <100 mg/dL Performed By: #### 2 4323-8 ####[facility]ORATORYCLIA [id number] [place] [address] [place]#### 21807-5 ####[facility]ATORYCLIA [id number] [place] [address] [place] [facility] LABCLIA [id number] [place] [address] [place] Cholesterol.total/Chol esterol in HDL [Mass ratio] 3.51 {ratio} Normal <5.10 [facility] Comment on above: Order Comment: Speci men Type: BLOOD SPECIMENOrdering Facility: [facility] Address: [address] [place] [address] Performed By: #### 2 4323-8 ####[facility]ATORYCLIA [id number] [place] [address] [place]#### 35245-8 ####[facility]ORATORYCLIA [id number] [place] [address] [place] [facility] LABCLIA [id number] [place] [address] [place] FASTING TIME 12 hrs Normal [facility] Comment on above: Order Comment: Speci men Type: BLOOD SPECIMENOrdering Facility: [facility] Address: [address] [place] [address] Performed By: #### 2 4323-8 ####[facility]ATORYCLIA [id number] [place] [address] [place]#### 74841-1 ####[facility]ORYCLIA [id number] [place] [address] [place] [facility] LABCLIA [id number] [place] [address] [place] Triglyceride [Mass/Vol] 99 mg/dL Normal <150 [facility] Comment on above: Order Comment: Speci men Type: BLOOD SPECIMENOrdering Facility: [facility] Address: [address] [place] [address] Result Comment: <150 mg/dL, Normal 150-199 mg/dL, Borderline high 200-499 mg/dL, High >499 mg/dL, Very high Performed By: #### 2 4323-8 ####[facility]ORATORYCLIA [id number] [address] OF [facility]#### 40620-0 ####[facility]ORATORYCLIA [id number] [place] [id number] [facility] LABCLIA [id number] [place] [id number] [facility] CNOVon 05-07-2024 CNOV Office Visit (ATTILA ) JOCELYN LOAIZA ([id number]) 1945 M Date Time Provider Department 05/07/24 8:20 AM DRAKE AGARWAL During your visit today, we recorded the following information about you: Pulse Respiration Blood pressure Weight 66/minute 12/minute 122/62 77.1 kg Height 1.715 m Drake Agarwal MD 05/07/2024 8:41 AM Signed [facility] Cardiology ([address]) [address] [facility] [id number] OUTPATIENT VISIT DATE 05/07/2024 PRIMARY CARE PHYSICIAN: Bella Santos [address] [place] [address] HISTORY OF PRESENT ILLNESS: Mr. Loaiza is a 78 year old gentleman with a history of coronary artery disease prior coronary bypass grafting (May 2019), paroxysmal atrial fibrillation, hypertension, and dyslipidemia who presents for routine follow-up. Unfortunately, his in February. Stress and ended up in the emergency room the day before Thanksgiving. He ruled out for an acute coronary syndrome. They discussed possibly forming a stress test. Patient had declined. Since then, he has been doing well. He has occasional episodes of chest pain. Although, they are not reproducible with exertion. He hiked 2.3 miles yesterday and had no difficulties completing his hike. He denied chest pain, chest pressure, or shortness of breath. He has not had palpitations, lightheadedness, dizziness, or syncope. PAST MEDICAL [...] Social History Tobacco Use Smoking status: Former Current packs/day: 0.00 Average packs/day: 1 pack/day for 7.0 years (7.0 ttl pk-yrs) Types: Cigarettes Start date: 12/27/1969 Quit date: 12/27/1976 Years since quittin.3 Smokeless tobacco: Never Tobacco comments: on and off Vaping Use Vaping status: Never Used Substance Use Topics Alcohol use: Yes Comment: occasional Drug use: No FAMILY HISTORY Problem Relation Age of Onset other (No CAD) Father Cancer Mother , lung Cancer Brother thyroid ALLERGIES: ALLERGIES No Known Allergies MEDICATIONS: metoprolol tartrate, short acting, (LOPRESSOR) 25 mg tablet Take 1 tablet by mouth once daily. ELIQUIS 5 mg tab(s) Take 1 tablet by mouth two times a day. losartan (COZAAR) 50 mg tablet Take 1 tablet by mouth once daily. rosuvastatin (CRESTOR) 40 mg tablet Take 1 tablet by mouth daily at bedtime. ranolazine ER (RANEXA) 500 mg 12 hr tablet Take 1 tablet by mouth once daily. Cholecalciferol, Vitamin D3, 50 mcg (2,000 unit) cap Take 1 capsule by mouth once daily. magnesium oxide 400 mg magnesium cap Take 1 capsule by mouth once daily. Docusate Sodium 100 mg tab Take by mouth. TURMERIC ORAL Take by mouth once daily. doxycycline 20 mg tablet Take 1 tablet by mouth twice daily. tamsulosin ER (FLOMAX) 0.4 mg Take 1 capsule by mouth twice daily. Dr. Shaffer. acetaminophen (TYLENOL) 500 mg tablet Take 2 [...] for environmental allergies. Does not bruise/bleed easily. Psychiatric/Behavioral : Negative for depression. PHYSICAL EXAMINATION: BP 122/62 Pulse 66 Resp 12 Ht 5' 7.5 (1.72m) Wt 170 lb (77.1kg) SpO2 97% BMI 26.22 kg/(m2). General: Very pleasant gentleman sitting comfortable no apparent distress. He is alert and oriented x3 HEENT: Carotid upstrokes are brisk bilaterally without bruits no JVD appreciated. Pulmonary: Lungs are clear no rales, wheezes, rhonchi Cardiovascular: Normal S1, S2 with (more content not included)... Normal [facility] CNOVon 03-29-2024 CNOV Office Visit (FAMPWS ) JOCELYN LOAIZA ([id number]) 1945 M Date Time Provider Department 03/29/24 10:00 AM BELLA SANTOS FAMPWS During your visit today, we recorded the following information about you: Pulse Respiration Blood pressure Weight 60/minute 16/minute 132/80 75.3 kg Bella Santos MD 03/29/2024 10:38 AM Signed Transitional Care Management TCM Eligibility Documentation The following information was gathered during patient outreach 03/23/2024 Date of Outreach: Outreach Attempt 1: Contact Made Date of Discharge 03/22/2024 Provider Documentation Jocelyn Loaiza is a 78 year old male here today for a follow up from recent hospitalization. I have reviewed the patient's hospital course including discharge summary, discharge medications , and follow up needs with the patient and any family members present at today's visit. HPI Pt here today for a 7 day TCM. Pt admitted to [facility] on 03/21/24 for chest pains. Discharged home 03/22/24. He was not given any new medications, no medications were discontinued. Pt follows with Physiotherapist'S Assistant Dr. Agarwal whom he stated he has not followed up with regarding recent episode of chest pain, wanted to follow up with PCP first. Pt notes that the ED wanted to do a stress test, but didn't have anyone available the day he was admitted. Pt states since being d/c home he's had very minor angina pain, not like when he presented to the ED. Has been feeling better. Did do a hike over the weekend and worked out. May still be feeling a little short of breath during those times and some slight angina, but not terribly. Also notes that when he went to the ED his BP was very high. This week his BP has been averaging 139/82. Pt currently taking Losartan 50 mg once daily and Lopressor 25 mg once daily. Pt states that he started the Ranexa 500 mg once daily. States that Dr. Agarwal's and him have discussed if he started having the angina again to start this regimen. Pt also notes that his on 03/09/24, which he feels stress may of contributed to some of this. Unrelated issues today. Has a really stuffy nose for the past couple weeks. When he blows his nose, blood is coming out in the mucous. When nose gets real stuffy he uses saline nasal spray and Flonase. Below copied from [employer]: Chief Complaint: Chest Pain Informant: patient and family Narrative Narrative: Waxing waning left-sided chest pain for 3 days. Intermittent pain into his shoulder. Exertional dyspnea. No cough. History of three-vessel CABG in 2019 followed by [facility] Dr. Parikh. He follows up every 6 months. He states he had a heart catheter a couple years ago no intervention he was placed on Ranexa. He follow-up with his quality assurance director states due to blood pressure metoprolol was decreased and Ranexa was stopped a year ago. He is on Eliquis for history of paroxysmal A-fib. He is on baby aspirin daily. Took his medications today. 3 days ago he is able to do the elliptical for 15 minutes no symptoms today he states with the elliptical he went 5 minutes before having to stop. Symptoms are worse with activities. Remote tobacco stopped in 1976. He reports similar symptoms with his IN in the past. Medical decision making narrative: Interventions / MDM: Differential diagnosis: Chest pain, history of coronary disease Diagnosis considered but do not suspect: Pulmonary embolus however chronic anticoagulation medications with compliance. No clinical pneumonia. Pneumothorax however chest x-ray negative. My EKG interpretation: Sinus rate of 63, no ST or T wave changes. Imaging independently reviewed and interpreted by myself: 2 view chest x-ray right lower lobe atelectasis. Possible infiltrate per radiology. External documents reviewed: Cardiac cath April 2023: Patent MOHR to LAD and saphenous graft to the obtuse. Collaterals right coronary. 50% proximal LAD lesion. Test considered but not ordered:N/A ED course: Patient with exertion no dyspnea with chest pain symptoms. History of coronary disease with three-vessel bypass. Reported had to stop with his exercise today due to symptoms. Will check EKG, cardiac workup. He is on chronic anticoagulation with compliance or for lower suspicion for PE. Chest x-ray questionable infiltrate atelectasis clinically no cough or concerns for infiltrate. Initial troponin was 8. Patient reports similar symptoms to his IN with exertional dyspnea. Review of records he had a cardiac cath April 2023. He reports he was only able to do 5 minutes of elliptical today before being symptomatic. I will discuss with hospitalist service for admission. I discussed with Dr. Hilton for admission. Minutes Spent on Discharge: 33 Hospital Course: Per HPI: JOCELYN LOAIZA, is a 78 M who presented to [facility] ED on (more content not included)... Normal [facility] Basic Metabolic Profile (BMP )on 03-22-2024 BUN/CRE 28.6 RATIO High 10-20 [facility] Comment on above: Performed By: #### L 100.0500, L500.2500, L500.4100 ####[facility] [address] [place], [address] CA,Total 8.7 mg/dL Normal 8.5-10.1 [facility] Comment on above: Performed By: #### L 100.0500, L500.2500, L500.4100 ####[facility] [address] [place], [address] Chloride [Moles/Vol] 111 mmol/L High 98-107 [facility] Comment on above: Performed By: #### L 100.0500, L500.2500, L500.4100 ####[facility] [address] [place], [address] CO2 [Moles/Vol] 24.0 mmol/L Normal 21.0-32.0 [facility] Comment on above: Performed By: #### L 100.0500, L500.2500, L500.4100 ####[facility] [address] [place], [address] Creatinine [Mass/Vol] 0.88 mg/dL Normal 0.70-1.30 [facility] Comment on above: Result Comment: The validity of the calculated GFR GFRAA in patients over 70 years has not been determined. Clinical correlation is essential. Performed By: #### L 100.0500, L500.2500, L500.4100 ####[facility] [address] [place], [address] ECRCL 65.72 ml/min Normal [facility] Comment on above: Performed By: #### L 100.0500, L500.2500, L500.4100 ####[facility] [address] [place], [address] EST GFR - AA 109 mL/min Normal >60 [facility] Comment on above: Result Comment: Afri can Burmese GFR Calc Performed By: #### L 100.0500, L500.2500, L500.4100 ####[facility] [address] [place], [address] GAP 5 Normal 5-15 [facility] Comment on above: Performed By: #### L 100.0500, L500.2500, L500.4100 ####[facility] [address] [place], [address] GFR/1.73 sq M.predicted among non-blacks MDRD (S/P/Bld) [Vol rate/Area] 90 mL/min/{1.73_m2} Normal >60 [facility] Comment on above: Result Comment: Non- GFR Calc Performed By: #### L 100.0500, L500.2500, L500.4100 ####[facility] [address] [place], [address] Glucose [Mass/Vol] 92 mg/dL Normal 74-[address] [facility] Comment on above: Performed By: #### L 100.0500, L500.2500, L500.4100 ####[facility] [address] [place], [address] Potassium [Moles/Vol] 4.1 mmol/L Normal 3.5-5.1 [facility] Comment on above: Result Comment: Slig ht Hemolysis, Result may be falsely increased. Performed By: #### L 100.0500, L500.2500, L500.4100 ####[facility] [address] [place], [address] Sodium [Moles/Vol] 139 mmol/L Normal 136-[address] [facility] Comment on above: Performed By: #### L 100.0500, L500.2500, L500.4100 ####[facility] [address] [place], [address] Urea nitrogen [Mass/Vol] 25 mg/dL High 7-18 [facility] Comment on above: Performed By: #### L 100.0500, L500.2500, L500.4100 ####[facility] [address] [place], [address] CBC-Complete Blood Cnt No Di ffon 03-22-2024 Erythrocyte distribution width (RBC) [Ratio] 12.3 % Normal 11.6-14.6 [facility] Comment on above: Performed By: #### L 100.0500, L500.2500, L500.4100 #### [facility] [address] [place], [address] Hematocrit (Bld) [Volume fraction] 46.9 % Normal 40-54 [facility] Comment on above: Performed By: #### L 100.0500, L500.2500, L500.4100 #### [facility] [address] [place], [address] Hemoglobin (Bld) [Mass/Vol] 16.0 g/dL Normal 13.0-16.5 [facility] Comment on above: Performed By: #### L 100.0500, L500.2500, L500.4100 #### [facility] [address] [place], [address] MCH (RBC) [Entitic mass] 31.4 pg Normal 27.0-32.0 [facility] Comment on above: Performed By: #### L 100.0500, L500.2500, L500.4100 #### [facility] [address] [place], [address] MCHC (RBC) [Mass/Vol] 34.1 g/dL Normal 32-36 [facility] Comment on above: Performed By: #### L 100.0500, L500.2500, L500.4100 #### [facility] [address] [place], [address] MCV (RBC) [Entitic vol] 92.1 fL Normal 80-94 [facility] Comment on above: Performed By: #### L 100.0500, L500.2500, L500.4100 #### [facility] [address] [place], [address] Platelet mean volume (Bld) [Entitic vol] 9.3 fL Normal 6.2-12.0 [facility] Comment on above: Performed By: #### L 100.0500, L500.2500, L500.4100 #### [facility] [address] [place], [address] Platelets (Bld) [#/Vol] 248 10*3/uL Normal 150-450 [facility] Comment on above: Performed By: #### L 100.0500, L500.2500, L500.4100 #### [facility] [address] [place], [address] RBC (Bld) [#/Vol] 5.09 10*6/uL Normal 4.6-6.2 [facility] Comment on above: Performed By: #### L 100.0500, L500.2500, L500.4100 #### [facility] [address] [place], [address] RDW SD 42.1 fl Normal 35.1-43.9 [facility] Comment on above: Performed By: #### L 100.0500, L500.2500, L500.4100 #### [facility] [address] [place], [address] WBC (Bld) [#/Vol] 6.8 10*3/uL Normal 4.4-11.[address] [facility] Comment on above: Performed By: #### L 100.0500, L500.2500, L500.4100 #### [facility] [address] [place], [address] Discharge Instructionon 02-24 Discharge Instruction [facility] Medical Records Department [address] [place] [address] Instructions for Home/Discharge Instructions 03/22/24 1519 MR#: [id number] Acct: [id number] Name: JOCELYN LOAIZA Rep #: [id number] : 1945 78 From: Tony Garay MD PCP: Dr. Bella Santos MD Status:ADM PALOMO Discharge Instructions Diet Discharge Diet: Low fat / Low cholesterol DC O2, CPAP, BIPAP needs Additional Home O2 Discharge instructions: No Dressing / Incision Discharge Activity: Return to Normal Activity Dressing / Incision Call your doctor if you observe: Fever of 101 or Higher, Shortness of breath, Dizziness, Fainting spells, Swelling in the ankles, Chest pain and Increased palpitations (irregular heartbeat) Follow Up Care Test Results: Test results from this visit will be discussed in further detail at your follow-up appointment, if applicable. Discharge Plan Admission Admit Date/Time: 03/21/24 22:08 Attending Provider: Tony Garay Primary Care Provider: Bella Santos Consulting Providers: Darrell Hilton Discharge Orders/Prescriptions Prescriptions: Continued aspirin 81 MG tablet 162 mg PO DAILY@0800 acetaminophen 500 MG tablet 500 - 1,000 mg PO Q6H PRN PRN (Reason: Pain Or Fever) tamsulosin 0.4 MG capsule 0.4 mg PO BID losartan 50 mg tablet 50 mg PO DAILY Patient Comments: Take 1 tablet by mouth once daily. doxycycline hyclate 20 mg tablet 20 mg PO BID Eliquis 5 mg tablet 5 mg PO BID Qty: 60 0RF metoprolol tartrate [Lopressor] 50 mg tablet 12.5 mg PO BID Patient Comments: pt has been taking 25mg BID last few days ivermectin-metronidazo l-niacin [Aveidaoxia] 1-1-4 % gel 1 ea topical DAILY rosuvastatin [Crestor] 40 mg tablet 40 mg PO QHS docusate sodium [Col-Rite] 100 mg capsule 100 mg PO DAILY magnesium 200 mg tablet 400 mg PO DAILY glucosamine HCl 1,500 mg tablet 3,000 mg PO DAILY Rx Instructions: administer with a meal coQ10 (ubiquinol) [CoQmax Ubiquinol] 100 mg capsule 100 mg PO DAILY ranolazine 500 mg Tablet Extended Release 12 Hr 500 mg PO BID 90 Days Qty: 180 0RF cholecalciferol (vitamin D3) [Vitamin D3] 50 mcg (2,000 unit) capsule 50 mcg PO DAILY tumeric curcumin complex Patient Comments: 500mg daily metoprolol tartrate 25 mg tablet 25 mg PO BID Referrals / Follow Up: Bella Santos MD [Primary Care Provider] - Within 1 Week Disposition Disposition (needs filled in before D/C Order can be placed): Home, Self Care 03/22/24 1524 Tony Garay MD CC: Dr. Darrell Hilton, DO; Dr. Bella Santos MD Signed Normal [facility] L501.4020on 03-22-2024 TROPONIN-I HS 12 pg/mL Normal 3.0-78.0 [facility] Comment on above: Order Comment: 'TROP ' Serial specimen #1, #2 or #3: 3 Result Comment: Plea se Note: New Test Units and Gender Specific Reference Ranges. For more information see Policy Stat Procedure [place] High Sensitivity Troponin (TNIH) and attachments. Performed By: #### L 501.4020 #### [facility] [address] [facility] [place], [address] Lipid Profileon 03-22-2024 Cholesterol [Mass/Vol] 117 mg/dL Normal 200 [facility] Comment on above: Result Comment: <200 mg/dL Desirable 200-240 mg/dL Borderline >240 mg/dL High Risk Performed By: #### L 100.0500, L500.2500, L500.4100 ####[facility] [address] [place], [address] Cholesterol in HDL [Mass/Vol] 46 mg/dL Normal [facility] Comment on above: Result Comment: The drugs N-Acetylcysteine and Metamizole may falsely depress this assay. Reference Range HDL <40 mg/dL Low HDL Cholesterol HDL >or= 60 mg/dL High HDL Cholesterol Performed By: #### L 100.0500, L500.2500, L500.4100 ####[facility] [address] [place], [address] Cholesterol in LDL [Mass/Vol] 51 mg/dL Normal 0-130 [facility] Comment on above: Performed By: #### L 100.0500, L500.2500, L500.4100 ####[facility] [address] [place], [address] Cholesterol in VLDL [Mass/Vol] 20 mg/dL Normal 5-40 [facility] Comment on above: Performed By: #### L 100.0500, L500.2500, L500.4100 ####[facility] [address] [place], [address] Triglyceride [Mass/Vol] 102 mg/dL Normal [facility] Comment on above: Result Comment: The drugs N-Acetylcysteine and Metamizole may falsely depress this assay. Serum Triglycerides Reference Interval Normal <150 mg/dL Borderline high 150 - 199 mg/dL High 200 - 499 mg/dL Very High > or = 500 mg/dL Performed By: #### L 100.0500, L500.2500, L500.4100 ####[facility] [address] [place], [address] Basic Metabolic Profile (BMP )on 03-21-2024 BUN/CRE 27.8 RATIO High 10-20 [facility] Comment on above: Order Comment: 1Y Performed By: #### L 100.0100, L300.3900, L300.4310, L500.2500, L501.5425 ####[facility] [address] [place], [address] CA,Total 9.1 mg/dL Normal 8.5-10.1 [facility] Comment on above: Order Comment: 1Y Performed By: #### L 100.0100, L300.3900, L300.4310, L500.2500, L501.5425 ####[facility] [address] [place], [address] Chloride [Moles/Vol] 106 mmol/L Normal 98-107 [facility] Comment on above: Order Comment: 1Y Performed By: #### L 100.0100, L300.3900, L300.4310, L500.2500, L501.5425 ####[facility] [address] [place], [address] CO2 [Moles/Vol] 28.0 mmol/L Normal 21.0-32.0 [facility] Comment on above: Order Comment: 1Y Performed By: #### L 100.0100, L300.3900, L300.4310, L500.2500, L501.5425 ####[facility] [address] [place], [address] Creatinine [Mass/Vol] 0.97 mg/dL Normal 0.70-1.30 [facility] Comment on above: Order Comment: 1Y Result Comment: The validity of the calculated GFR GFRAA in patients over 70 years has not been determined. Clinical correlation is essential. Performed By: #### L 100.0100, L300.3900, L300.4310, L500.2500, L501.5425 ####[facility] [address] [place], [address] ECRCL 59.63 ml/min Normal [facility] Comment on above: Order Comment: 1Y Performed By: #### L 100.0100, L300.3900, L300.4310, L500.2500, L501.5425 ####[facility] [address] [place], [address] EST GFR - AA 96 mL/min Normal >60 [facility] Comment on above: Order Comment: 1Y Result Comment: Afri can Burmese GFR Calc Performed By: #### L 100.0100, L300.3900, L300.4310, L500.2500, L501.5425 ####[facility] [address] [place], [address] GAP 6 Normal 5-15 [facility] Comment on above: Order Comment: 1Y Performed By: #### L 100.0100, L300.3900, L300.4310, L500.2500, L501.5425 ####[facility] [address] [place], [address] GFR/1.73 sq M.predicted among non-blacks MDRD (S/P/Bld) [Vol rate/Area] 80 mL/min/{1.73_m2} Normal >60 [facility] Comment on above: Order Comment: 1Y Result Comment: Non- GFR Calc Performed By: #### L 100.0100, L300.3900, L300.4310, L500.2500, L501.5425 ####[facility] [address] [place], [address] Glucose [Mass/Vol] 106 mg/dL Normal 74-[address] [facility] Comment on above: Order Comment: 1Y Result Comment: Fast ing Glucose result from 100 to 125 mg/dL suggests IMPAIRED HOMEOSTASIS per A.D.A. criteria. Performed By: #### L 100.0100, L300.3900, L300.4310, L500.2500, L501.5425 ####[facility] [address] [place], [address] Potassium [Moles/Vol] 4.1 mmol/L Normal 3.5-5.1 [facility] Comment on above: Order Comment: 1Y Result Comment: Slig ht Hemolysis, Result may be falsely increased. Performed By: #### L 100.0100, L300.3900, L300.4310, L500.2500, L501.5425 ####[facility] [address] [place], [address] Sodium [Moles/Vol] 140 mmol/L Normal 136-[address] [facility] Comment on above: Order Comment: 1Y Performed By: #### L 100.0100, L300.3900, L300.4310, L500.2500, L501.5425 ####[facility] [address] [place], [address] Urea nitrogen [Mass/Vol] 27 mg/dL High 7-18 [facility] Comment on above: Order Comment: 1Y Performed By: #### L 100.0100, L300.3900, L300.4310, L500.2500, L501.5425 ####[facility] [address] [place], [address] CBC W/Diff, Automatedon 11-2 Absolute Lymph 1.49 X10 3/uL Normal 0.83-4.51 [facility] Comment on above: Performed By: #### L 100.0100, L300.3900, L300.4310, L500.2500, L501.5425 ####[facility] [address] [place], [address] Absolute Neut 4.3 X10 3/uL Normal 2.0-7.7 [facility] Comment on above: Performed By: #### L 100.0100, L300.3900, L300.4310, L500.2500, L501.5425 ####[facility] [address] [place], [address] Basophils/100 WBC (Bld) 0.9 % Normal 0-1 [facility] Comment on above: Performed By: #### L 100.0100, L300.3900, L300.4310, L500.2500, L501.5425 ####[facility] [address] [place], [address] Eosinophils/100 WBC (Bld) 2.9 % Normal 0-5 [facility] Comment on above: Performed By: #### L 100.0100, L300.3900, L300.4310, L500.2500, L501.5425 ####[facility] [address] [place], [address] Erythrocyte distribution width (RBC) [Ratio] 12.2 % Normal 11.6-14.6 [facility] Comment on above: Performed By: #### L 100.0100, L300.3900, L300.4310, L500.2500, L501.5425 ####[facility] [address] [place], [address] Hematocrit (Bld) [Volume fraction] 50.6 % Normal 40-54 [facility] Comment on above: Performed By: #### L 100.0100, L300.3900, L300.4310, L500.2500, L501.5425 ####[facility] [address] [place], [address] Hemoglobin (Bld) [Mass/Vol] 17.3 g/dL High 13.0-16.5 [facility] Comment on above: Performed By: #### L 100.0100, L300.3900, L300.4310, L500.2500, L501.5425 ####[facility] [address] [place], [address] IG% 0.900 Normal 0.0-0.9 [facility] Comment on above: Result Comment: IG% - Immature Granulocytes (promyelocytes, myelocytes and metamyelocytes) > 1% indicates that a LEFT SHIFT is Present. Performed By: #### L 100.0100, L300.3900, L300.4310, L500.2500, L501.5425 ####[facility] [address] [place], [address] Lymphocytes/100 WBC (Bld) 21.4 % Normal 19-41 [facility] Comment on above: Performed By: #### L 100.0100, L300.3900, L300.4310, L500.2500, L501.5425 ####[facility] [address] [place], [address] MCH (RBC) [Entitic mass] 31.6 pg Normal 27.0-32.0 [facility] Comment on above: Performed By: #### L 100.0100, L300.3900, L300.4310, L500.2500, L501.5425 ####[facility] [address] [place], [address] MCHC (RBC) [Mass/Vol] 34.2 g/dL Normal 32-36 [facility] Comment on above: Performed By: #### L 100.0100, L300.3900, L300.4310, L500.2500, L501.5425 ####[facility] [address] [place], [address] MCV (RBC) [Entitic vol] 92.3 fL Normal 80-94 [facility] Comment on above: Performed By: #### L 100.0100, L300.3900, L300.4310, L500.2500, L501.5425 ####[facility] [address] [place], [address] Monocytes/100 WBC (Bld) 12.4 % High 0-10 [facility] Comment on above: Performed By: #### L 100.0100, L300.3900, L300.4310, L500.2500, L501.5425 ####[facility] [address] [place], [address] Neutrophils/100 WBC (Bld) 61.5 % Normal 47-70 [facility] Comment on above: Performed By: #### L 100.0100, L300.3900, L300.4310, L500.2500, L501.5425 ####[facility] [address] [place], [address] Nucleated RBC (Bld) [#/Vol] 0 10*3/uL Normal 0-5 [facility] Comment on above: Performed By: #### L 100.0100, L300.3900, L300.4310, L500.2500, L501.5425 ####[facility] [address] [place], [address] Platelet mean volume (Bld) [Entitic vol] 9.3 fL Normal 6.2-12.0 [facility] Comment on above: Performed By: #### L 100.0100, L300.3900, L300.4310, L500.2500, L501.5425 ####[facility] [address] [place], [address] Platelets (Bld) [#/Vol] 274 10*3/uL Normal 150-450 [facility] Comment on above: Performed By: #### L 100.0100, L300.3900, L300.4310, L500.2500, L501.5425 ####[facility] [address] [place], [address] RBC (Bld) [#/Vol] 5.48 10*6/uL Normal 4.6-6.2 [facility] Comment on above: Performed By: #### L 100.0100, L300.3900, L300.4310, L500.2500, L501.5425 ####[facility] [address] [place], [address] RDW SD 41.4 fl Normal 35.1-43.9 [facility] Comment on above: Performed By: #### L 100.0100, L300.3900, L300.4310, L500.2500, L501.5425 ####[facility] [address] [place], [address] WBC (Bld) [#/Vol] 7.0 10*3/uL Normal 4.4-11.[address] [facility] Comment on above: Performed By: #### L 100.0100, L300.3900, L300.4310, L500.2500, L501.5425 ####[facility] [address] [place], [address] Chest PA and Lateralon 03-21 Chest PA and Lateral [facility] [facility] [address] [place] [address] Chest PA and Lateral MR#: [id number] Acct: [id number] Name: JOCELYN LOAIZA Rep #: [id number] : 1945 M 78 From: Daryn cesar DO PCP: Dr. Bella Santos MD Status: REG ER Study: Chest PA and Lateral Date of Exam: 03/21/24 Exam# [id number] Ordering Dr: Philipp Morales DO [id number] EXAM: XR CHEST, 2 VIEWS CLINICAL INDICATION: chest pain TECHNIQUE: Frontal and lateral views of the chest. COMPARISON: 06/02/2023 FINDINGS: LUNGS AND PLEURAL SPACES: Right lower lobe pulmonary opacity may be atelectasis, scarring, or pneumonia similar to the prior examination. No pneumothorax. No effusion. HEART: No significant abnormality. Cardiac silhouette not enlarged. MEDIASTINUM: Central airways and mediastinal contour are unremarkable. BONES/JOINTS: Median sternotomy. No acute fracture. SOFT TISSUES: No significant abnormality. VASCULATURE: Atherosclerosis. RAD/Chest PA and Lateral IMPRESSION: Right lower lobe pulmonary opacity may be atelectasis, scarring, or pneumonia similar to the prior examination. Electronically Signed: Daryn Gomez DO at 21:07 EST , CC: Dr. Bella Santos MD; Dr. Philipp Morales DO Mica Paster: Signed Normal [facility] Emergency Department Summary on 03-21-2024 Emergency Department Summary [facility] Medical Records Department [address] [place] [address] Emergency Department Summary 03/21/24 MR#: [id number] Acct: [id number] Name: JOCELYN LOAIZA Rep #: [id number] : 1945 78 From: Philipp Siddiqui PCP: Dr. Bella Santos MD Status:ADM PALOMO Location: [address] History of Present Illness Chief Complaint: Chest Pain Informant: patient and family Narrative Narrative: Waxing waning left-sided chest pain for 3 days. Intermittent pain into his shoulder. Exertional dyspnea. No cough. History of three-vessel CABG in 2019 followed by [facility] [address]. Parikh. He follows up every 6 months. He states he had a heart catheter a couple years ago no intervention he was placed on Ranexa. He follow-up with his quality assurance director states due to blood pressure metoprolol was decreased and Ranexa was stopped a year ago. He is on Eliquis for history of paroxysmal A-fib. He is on baby aspirin daily. Took his medications today. 3 days ago he is able to do the elliptical for 15 minutes no symptoms today he states with the elliptical he went 5 minutes before having to stop. Symptoms are worse with activities. Remote tobacco stopped in 1976. He reports similar symptoms with his IN in the past. Prior Similar Symptoms: Yes, With Prior IN and With Prior Angina CVD Risk Factors: Positive for Hypertension and Hypercholesterolemia; Negative for Diabetes or Smoking [facility] Medical History Bradycardia BPH (benign prostatic hyperplasia) Atherosclerotic heart disease of [place] coronary artery without angina pectoris Acne rosacea HARLEY on CPAP Kidney stones Hypertension Former smoker, stopped smoking in distant past Hyperlipidemia Home Medications ???Medication ???Instructions ???Recorded ???Last Taken ???Type aspirin 81 mg tablet,delayed 162 mg PO DAILY@0800 heart EntraTympanic 01/22/14 05/31/19 History release acetaminophen 500 mg tablet 500 - 1,000 mg PO Q6H PRN PRN Pain 07/05/19 Unknown History Or Fever tamsulosin 0.4 mg capsule 0.4 mg PO BID prostate 07/05/19 Unknown History doxycycline hyclate 20 mg tablet 20 mg PO BID infection 09/17/21 Unknown History losartan 50 mg tablet 50 mg PO DAILY blood pressure 09/17/21 Unknown History apixaban 5 mg tablet (Eliquis) 5 mg PO BID blood thinner #60 tabs 04/23/23 Unknown Rx coQ10 (ubiquinol) 100 mg capsule 100 mg PO DAILY supplement 05/05/23 Unknown History (CoQmax Ubiquinol) docusate sodium 100 mg capsule 100 mg PO DAILY stool softner 05/05/23 Unknown History (Col-Rite) glucosamine HCl 1,500 mg tablet 3,000 mg PO DAILY supplement 05/05/23 Unknown History ivermectin 1 %-metronidazole 1 1 ea topical DAILY 05/05/23 Unknown History %-niacinamide 4 % topical gel (Aveidaoxia) magnesium 200 mg tablet 400 mg PO DAILY supplement 05/05/23 Unknown History metoprolol tartrate 50 mg tablet 12.5 mg PO BID blood pressure 05/05/23 Unknown History (Lopressor) rosuvastatin 40 mg tablet (Crestor) 40 mg PO QHS cholesterol 05/05/23 Unknown History ranolazine 500 mg tablet,extended 500 mg PO BID 90 days #180 tabs 05/06/23 Unknown Rx release,12 hr cholecalciferol (vitamin D3) 50 50 mcg PO DAILY 03/21/24 Unknown History mcg (2,000 unit) capsule (Vitamin D3) metoprolol tartrate 25 mg tablet 25 mg PO BID 03/21/24 Unknown History tumeric curcumin complex 03/21/24 Unknown History Allergy/AdvReac Type Severity Reaction Status Date / Time No Known Allergies Allergy Verified 03/21/24 20:17 Family History Father Hypertension Mother Cancer Kidney stones Surgical History S/P triple vessel bypass Hx of tonsillectomy H/O lithotripsy H/O hernia repair Social History household members: spouse Smoking Status: Former smoker how long ago did patient quit smoking: Quit in the 1970s. alcohol intake: current alcohol intake frequency: holidays/special occasions only substance use type: does not use ROS ROS ED Constitutional Constitutional ED: Denies chills, fever(s) or sweats Eyes Eyes: Denies change in vision ENT ENT ED: Denies dysphagia or sore throat Cardiovascular Cardiovascular: Reports chest pain; Denies leg edema, palpitations or racing heartbeat Respiratory/Chest Respiratory/Chest: Reports dyspnea; Denies cough or dyspnea on exertion Gastrointestinal Gastrointestinal: Denies abdominal pain, diarrhea, nausea or vomiting Genitourinary Genitourinary ED: Denies dysuria, hematuria or urinary frequency Musculoskeletal Musculoskeletal: Denies back pain, extremity pain or neck pain Integumentary Denies rash or wounds Neurologic Neurologic: Denies headache(s), paresthesias or wea (more content not included)... Normal [facility] H AND P Exam - Hospitaliston 03-21-2024 H&P Exam - Hospitalist [facility] Medical Records Department [address] [place] [address] H P Exam - Hospitalist 03/21/245 MR#: [id number] Acct: [id number] Name: JOCELYN LOAIZA Rep #: [id number] : 1945 78 From: Darrell Hilton DO PCP: Dr. Bella Santos MD Status:ADM PALOMO Location: [place] [address] HPI - General General Date of Admission: 03/21/24 Date of Service: 03/21/24 Chief Complaint: Chest pain HPI Narrative JOCELYN LOAIZA, is a 78 M who presented to [facility] ED on 03/21/2024 with chest pain. Patient has history of CAD s/p CABG in 2019, follows with cardiology through the [facility]. Notably was admitted here in April 2023 with exertional chest pain. Left heart cath was done and showed patent CABG vessels with normal ejection fraction. Ranexa was added to his medication regimen at that time. He subsequently had worsened bradycardia with some degree of hypotension so Ranexa was discontinued by his [facility] quality assurance director and his Lopressor dose was lowered. Since then patient has been doing well. As recently as 2 days ago he use the elliptical for 15 minutes without any issues. However today when using elliptical he had exertional chest pain after only 5 minutes, so he came in for further evaluation. In the ED he was hypertensive to the 150s to 160s systolic but otherwise hemodynamically stable on room air. EKG showed normal sinus rhythm with known left axis deviation and LVH, no ischemic changes noted. Troponin trend 9 > 12. Labs were otherwise unremarkable. Given his presentation and history, hospitalist was contacted for admission. I saw the patient at bedside in the ED. Patient was sitting up comfortably in bed, conversing normally, in no acute distress. Denied any chest pain currently. Denied any shortness of breath. Patient did report having a sore throat for few days last week but no other significant infectious symptoms. He denies any lower extremity swelling. Has a remote smoking history, quit in the 70s. No other acute concerns at this time. Will be admitted for further management. [facility] Medical History Bradycardia BPH (benign prostatic hyperplasia) Atherosclerotic heart disease of [place] coronary artery without angina pectoris Acne rosacea HARLEY on CPAP Kidney stones Hypertension Former smoker, stopped smoking in distant past Hyperlipidemia Home Medications ???Medication ???Instructions ???Recorded ???Last Taken ???Type aspirin 81 mg tablet,delayed 162 mg PO DAILY@0800 [facility] 01/22/14 03/22/24 History release acetaminophen 500 mg tablet 500 - 1,000 mg PO Q6H PRN PRN Pain 07/05/19 Unknown History Or Fever tamsulosin 0.4 mg capsule 0.4 mg PO BID prostate 07/05/19 03/22/24 History doxycycline hyclate 20 mg tablet 20 mg PO BID infection 09/17/21 03/22/24 History losartan 50 mg tablet 50 mg PO DAILY blood pressure 09/17/21 03/22/24 History apixaban 5 mg tablet (Eliquis) 5 mg PO BID blood thinner #60 tabs 04/23/23 03/22/24 Rx coQ10 (ubiquinol) 100 mg capsule 100 mg PO DAILY supplement 05/05/23 03/22/24 History (CoQmax Ubiquinol) docusate sodium 100 mg capsule 100 mg PO DAILY stool softner 05/05/23 03/22/24 History (Col-Rite) glucosamine HCl 1,500 mg tablet 3,000 mg PO DAILY supplement 05/05/23 03/22/24 History ivermectin 1 %-metronidazole 1 1 ea topical DAILY 05/05/23 03/22/24 History %-niacinamide 4 % topical gel (Aveidaoxia) magnesium 200 mg tablet 400 mg PO DAILY supplement 05/05/23 03/22/24 History metoprolol tartrate 50 mg tablet 12.5 mg PO BID blood pressure 05/05/23 Unknown History (Lopressor) rosuvastatin 40 mg tablet (Crestor) 40 mg PO QHS cholesterol 05/05/23 03/21/24 History ranolazine 500 mg tablet,extended 500 mg PO BID 90 days #180 tabs 05/06/23 03/22/24 Rx release,12 hr cholecalciferol (vitamin D3) 50 50 mcg PO DAILY 03/21/24 03/22/24 History mcg (2,000 unit) capsule (Vitamin D3) metoprolol tartrate 25 mg tablet 25 mg PO BID 03/21/24 03/22/24 History tumeric curcumin complex 03/21/24 Unknown History Allergy/AdvReac Type Severity Reaction Status Date / Time No Known Allergies Allergy Verified 03/21/24 20:17 Family History Father Hypertension Mother Cancer Kidney stones Surgical History S/P triple vessel bypass Hx of tonsillectomy H/O lithotripsy H/O hernia repair Social History household members: spouse Smoking Status: Former smoker how long ago did patient quit smoking: Quit in the 1970s. alcohol intake: current alcohol intake frequency: holidays/special occasions only substance use type: does not use ROS Constitutional Constitutional: Denies (more content not included)... Normal [facility] Hemoglobin A1con 03-21-2024 HbA1c (Bld) [Mass fraction] 5.5 % Normal 3.8-5.6 [facility] Comment on above: Result Comment: Norm al < 5.7 % Prediabetic 5.7 - 6.4 % Diabetic >or= 6.5 % Please note range changes. Performed By: #### L 501.6373, L501.9998 ####[facility] [address] [place], [address] L501.4020on 03-21-2024 TROPONIN-I HS 9 pg/mL Normal 3.0-78.0 [facility] Comment on above: Result Comment: Plea se Note: New Test Units and Gender Specific Reference Ranges. For more information see Policy Stat Procedure [place] High Sensitivity Troponin (TNIH) and attachments. Performed By: #### L 501.4020 ####[facility] [address] [place], [address] L501.5425on 03-21-2024 TROPONIN-I HS 8 pg/mL Normal 3.0-78.0 [facility] Comment on above: Order Comment: 1Y Result Comment: Plea se Note: New Test Units and Gender Specific Reference Ranges. For more information see Policy Stat Procedure [place] High Sensitivity Troponin (TNIH) and attachments. Performed By: #### L 100.0100, L300.3900, L300.4310, L500.2500, L501.5425 ####[facility] [address] [place], [address] Partial Thromboplast Timeon 03-21-2024 aPTT Coag (Bld) [Time] 29.1 s Normal 24.1-36.2 [facility] Comment on above: Performed By: #### L 100.0100, L300.3900, L300.4310, L500.2500, L501.5425 ####[facility] [address] [place], [address] Prothrombin Time w/INRon INR Coag (PPP) [Relative time] 1.1 {INR} Normal [facility] Comment on above: Performed By: #### L 100.0100, L300.3900, L300.4310, L500.2500, L501.5425 ####[facility] [address] [place], [address] PT Coag (PPP) [Time] 13.9 s Normal 11.7-14.9 [facility] Comment on above: Performed By: #### L 100.0100, L300.3900, L300.4310, L500.2500, L501.5425 ####[facility] [address] [place], [address] Thyroid Stim Hormone (TSH)on 03-21-2024 TSH 2.950 uIU/mL Normal 0.358-3.740 [facility] Comment on above: Performed By: #### L 501.9520, L501.9985 ####[facility] [address] [place], [address] PSA,Total - Annual Screenon 01-19-2024 PSA,TOT SCREEN 1.97 ng/mL Normal 0.00-4.00 [facility] Comment on above: Result Comment: This test was performed using the TPSA assay method for the Ibotta chemistry system. Values obtained with different assay methods cannot be used interchangably. When changing PSA assays in the course of monitoring a patient, additional sequential testing should be carried out to confirm baseline values. Performed By: #### L 501.9910 ####[facility] [address] [place], [place], [id number] Absolute lymphocyte countOrd ered By: Ezequiel Blas on 06-02-2023 Lymphocytes Auto (Unsp spec) [#/Vol] 1.40 10*3/uL 0.83-4.51 [facility] Automated lymphocyte count a s percentage of total leukocytesOrdered By: Ezequiel Blas on 06-02-2023 Lymphocytes/100 WBC Auto (Unsp spec) 21.6 % 19-41 [facility] Basophil percentageOrdered B y: Ezequiel Blas on 06-02-2023 Basophils/100 WBC (Bld) 0.8 % 0-1 [facility] Chloride [Moles/Vol] 106 mmol/L 98-107 [facility] Eosinophils/100 WBC (Bld) 2.0 % 0-5 [facility] Glucose [Mass/Vol] 104 mg/dL 74-[address] [facility] Comment on above: Fasting Glucose resu lt from 100 to 125 mg/dL suggests IMPAIRED HOMEOSTASIS per A.D.A. criteria. Hemoglobin (Bld) [Mass/Vol] 15.6 g/dL 13.0-16.5 [facility] Monocytes/100 WBC (Bld) 12.2 % 0-10 [facility] Neutrophils (Bld) [#/Vol] 4.1 10*3/uL 2.0-7.7 [facility] Neutrophils/100 WBC (Bld) 62.9 % 47-70 [facility] Potassium [Moles/Vol] 4.3 mmol/L 3.5-5.1 [facility] Sodium [Moles/Vol] 139 mmol/L 136-[address] [facility] WBC (Bld) [#/Vol] 6.5 10*3/uL 4.4-11.[address] [facility] Determination of erythrocyte mean corpuscular volume (MCV)Ordered By: Ezequiel Blas on 06-02-2023 MCV (RBC) [Entitic vol] 92.6 fL 80-94 [facility] Erythrocyte distribution wid th ratioOrdered By: Ezequiel Blas on 06-02-2023 Erythrocyte distribution width (RBC) [Ratio] 12.5 % 11.6-14.6 [facility] Erythrocyte distribution wid th standard deviationOrdered By: Ezequiel Blas on 06-02-2023 Erythrocyte distribution width (RBC) [Entitic vol] 42.5 fL 35.1-43.9 [facility] Hematocrit Auto (Bld) [Volum e fraction]Ordered By: Ezequiel Blas on 06-02-2023 Hematocrit (Bld) [Volume fraction] 47.4 % 40-54 [facility] Immature granulocytes/100 WB C Auto (Bld)Ordered By: Ezequiel Blas on 06-02-2023 Immature granulocytes/100 WBC (Bld) 0.500 % 0.0-0.9 [facility] Comment on above: IG% - Immature Granu locytes (promyelocytes, myelocytes and metamyelocytes) > 1% indicates that a LEFT SHIFT is Present. Laboratory - Chemistry and C hemistry - challengeOrdered By: Ezequiel Blas on 06-02-2023 CO2 [Moles/Vol] 27.0 mmol/L 21.0-32.0 [facility] Natriuretic peptide B (Bld) [Mass/Vol] 33.6 pg/mL 0-100 [facility] Urea nitrogen/Creatinine [Mass ratio] 25.0 mg/mg 10-20 [facility] Laboratory - Hematology and Cell countsOrdered By: Ezequiel Blas on 06-02-2023 MCH (RBC) [Entitic mass] 30.5 pg 27.0-32.0 [facility] MCHC (RBC) [Mass/Vol] 32.9 g/dL 32-36 [facility] Nucleated RBC/100 WBC (Bld) [Ratio] 0 % 0-5 [facility] Platelet mean volume (Bld) [Entitic vol] 9.2 fL 6.2-12.0 [facility] Platelets (Bld) [#/Vol] 237 10*3/uL 150-450 [facility] No Panel InformationOrdered By: Ezequiel Blas on 06-02-2023 Estimated Creatinine Clearance Calc 58.76 ml/min [facility] Estimated GFR (MDRD) Amer 93 mL/min >60 [facility] Comment on above: GFR Calc Estimated GFR (MDRD) Non-Af Amer 77 mL/min >60 [facility] Comment on above: Non- GFR Calc Troponin I High Sensitivity 6 pg/mL 3.0-78.0 [facility] Comment on above: Please Note: New Lito t Units and Gender Specific Reference Ranges. For more information see Policy Stat Procedure [place] High Sensitivity Troponin (TNIH) and attachments. RBC Auto (Bld) [#/Vol]Ordere d By: Ezequiel Blas on 06-02-2023 RBC (Bld) [#/Vol] 5.12 10*6/uL 4.6-6.2 [facility] Serum or plasma calcium sherry urement (mass/volume)Ordered By: Ezequiel Blas on 06-02-2023 Calcium [Mass/Vol] 9.0 mg/dL 8.5-10.[address] [facility] Serum or plasma creatinine m easurement (mass/volume)Ordered By: Ezequiel Blas on 06-02-2023 Creatinine [Mass/Vol] 1.00 mg/dL 0.70-1.30 [facility] Comment on above: The validity of the calculated GFR & GFRAA in patients over 70 years has not been determined. Clinical correlation is essential. Serum or plasma urea nitroge n measurement (mass/volume)Ordered By: Ezequiel Blas on 06-02-2023 Urea nitrogen [Mass/Vol] 25 mg/dL 7-18 [facility] Thin prep Papanicolaou smear with manual screeningOrdered By: Ezequiel Blas on 06-02-2023 Thin prep Papanicolaou smear with manual screening 6 5-15 [facility] Absolute lymphocyte countOrd ered By: Sammie Tricia on 05-06-2023 Lymphocytes Auto (Unsp spec) [#/Vol] 1.10 10*3/uL 0.83-4.51 [facility] Basophil percentageOrdered B y: Sammie Tricia on 05-06-2023 Basophils/100 WBC (Bld) 0.7 % 0-1 [facility] Bilirubin [Mass/Vol] 0.30 mg/dL 0.20-1.00 [facility] Comment on above: For patients on eltr ombopag therapy, use of Dimension [place] TBIL is not recommended. Chloride [Moles/Vol] 111 mmol/L 98-107 [facility] Cholesterol [Mass/Vol] 101 mg/dL <200 [facility] Comment on above: <200 mg/dL Desirable 200-240 mg/dL Borderline >240 mg/dL High Risk Eosinophils/100 WBC (Bld) 2.5 % 0-5 [facility] Glucose [Mass/Vol] 104 mg/dL 74-[address] [facility] Comment on above: Fasting Glucose resu lt from 100 to 125 mg/dL suggests IMPAIRED HOMEOSTASIS per A.D.A. criteria. Neutrophils (Bld) [#/Vol] 4.5 10*3/uL 2.0-7.7 [facility] Neutrophils/100 WBC (Bld) 66.4 % 47-70 [facility] Potassium [Moles/Vol] 4.3 mmol/L 3.5-5.1 [facility] Protein [Mass/Vol] 6.4 g/dL 6.4-8.[address] [facility] Sodium [Moles/Vol] 142 mmol/L 136-[address] [facility] Triglyceride [Mass/Vol] 66 mg/dL <199 [facility] Comment on above: The drugs N-Acetylcy steine and Metamizole may falsely depress this assay.Serum Triglycerides Reference Interval Normal <150 mg/dL Borderline high 150 - 199 mg/dL High 200 - 499 mg/dL Very High > or = 500 mg/dL WBC (Bld) [#/Vol] 6.7 10*3/uL 4.4-11.[address] [facility] Blood erythrocytes count (nu mber/volume)Ordered By: Sammie Clarke on 05-06-2023 RBC (Bld) [#/Vol] 4.89 10*6/uL 4.6-6.2 [facility] Blood hemoglobin measurement (mass/volume)Ordered By: Sammie Clarke on 05-06-2023 Hemoglobin (Bld) [Mass/Vol] 14.7 g/dL 13.0-16.5 [facility] Blood lymphocytes/100 leukoc ytesOrdered By: Sammie Clarke on 05-06-2023 Lymphocytes/100 WBC (Bld) 16.3 % 19-41 [facility] Blood monocytes/100 leukocyt esOrdered By: [facility] Tricia on 05-06-2023 Monocytes/100 WBC (Bld) 13.5 % 0-10 [facility] Blood platelet mean volumeOr dered By: Sammie Tricia on 05-06-2023 Platelet mean volume (Bld) [Entitic vol] 9.2 fL 6.2-12.0 [facility] Determination of erythrocyte mean corpuscular volume (MCV)Ordered By: Sammie Clarke on 05-06-2023 MCV (RBC) [Entitic vol] 94.3 fL 80-94 [facility] Hematocrit Auto (Bld) [Volum e fraction]Ordered By: Sammie Tricia on 05-06-2023 Hematocrit (Bld) [Volume fraction] 46.1 % 40-54 [facility] Laboratory - Chemistry and C hemistry - challengeOrdered By: [facility] Tricia on 05-06-2023 ALP [Catalytic activity/Vol] 45 U/L 45-117 [facility] ALT [Catalytic activity/Vol] 35 U/L 16-61 [facility] CO2 [Moles/Vol] 27.0 mmol/L 21.0-32.0 [facility] Globulin (S) [Mass/Vol] 3.3 g/dL 2.2-4.2 [facility] Urea nitrogen/Creatinine [Mass ratio] 25.5 mg/mg 10-20 [facility] Laboratory - Hematology and Cell countsOrdered By: Sammie Clarke on 05-06-2023 Erythrocyte distribution width (RBC) [Entitic vol] 41.1 fL 35.1-43.9 [facility] Erythrocyte distribution width (RBC) [Ratio] 12.0 % 11.6-14.6 [facility] Immature granulocytes/100 WBC (Bld) 0.600 % 0.0-0.9 [facility] Comment on above: IG% - Immature Granu locytes (promyelocytes, myelocytes and metamyelocytes) > 1% indicates that a LEFT SHIFT is Present. MCH (RBC) [Entitic mass] 30.1 pg 27.0-32.0 [facility] Nucleated RBC/100 WBC (Bld) [Ratio] 0 % 0-5 [facility] MCHC Auto (RBC) [Mass/Vol]Or dered By: Sammie Clarke on 05-06-2023 MCHC (RBC) [Mass/Vol] 31.9 g/dL 32-36 [facility] No Panel InformationOrdered By: Sammie Clarke on 05-06-2023 Estimated Creatinine Clearance Calc 73.44 ml/min [facility] Estimated GFR (MDRD) Amer 123 mL/min >60 [facility] Comment on above: GFR Calc Estimated GFR (MDRD) Non-Af Amer 102 mL/min >60 [facility] Comment on above: Non- GFR Calc Platelets bldOrdered By: Lex Clarke on 05-06-2023 Platelets (Bld) [#/Vol] 338 10*3/uL 150-450 [facility] Serum or plasma albumin sherry urement (mass/volume)Ordered By: Sammie Clarke on 05-06-2023 Albumin [Mass/Vol] 3.1 g/dL 3.2-5.[address] [facility] Serum or plasma albumin/glob ulin mass ratioOrdered By: Sammie Clarke on 05-06-2023 Albumin/Globulin [Mass ratio] 0.9 {ratio} 0.9-2.4 [facility] Serum or plasma calcium sherry urement (mass/volume)Ordered By: Sammie Clarke on 05-06-2023 Calcium [Mass/Vol] 8.6 mg/dL 8.5-10.[address] [facility] Serum or plasma cholesterol in HDL measurement (mass/volume)Ordered By: Sammie Clarke on 05-06-2023 Cholesterol in HDL [Mass/Vol] 48 mg/dL >40 [facility] Comment on above: The drugs N-Acetylcy steine and Metamizole may falsely depress this assay. Reference Range HDL <40 mg/dL Low HDL Cholesterol HDL >or= 60 mg/dL High HDL Cholesterol Serum or plasma cholesterol in VLDL measurement (mass/volume)Ordered By: Sammie Clarke on 05-06-2023 Cholesterol in VLDL [Mass/Vol] 13 mg/dL 5-40 [facility] Serum or plasma creatinine m easurement (mass/volume)Ordered By: Sammie Clarke on 05-06-2023 Creatinine [Mass/Vol] 0.78 mg/dL 0.70-1.30 [facility] Comment on above: The validity of the calculated GFR & GFRAA in patients over 70 years has not been determined. Clinical correlation is essential. Serum or plasma low density lipoprotein (LDL) cholesterol measurement (mass/volume)Ordered By: Sammie Clarke on 05-06-2023 Cholesterol in LDL [Mass/Vol] 40 mg/dL 0-130 [facility] Serum or plasma urea nitroge n measurement (mass/volume)Ordered By: Sammie Clarke on 05-06-2023 Urea nitrogen [Mass/Vol] 20 mg/dL 7-18 [facility] Thin prep Papanicolaou smear with manual screeningOrdered By: [facility] Tricia on 05-06-2023 Thin prep Papanicolaou smear with manual screening 23 U/L 15-37 [facility] Thin prep Papanicolaou smear with manual screening 4 5-15 [facility] Laboratory - Chemistry and C hemistry - challengeOrdered By: Sammie Clarke on 05-05-2023 Magnesium [Mass/Vol] 2.4 mg/dL 1.6-2.6 [facility] No Panel InformationOrdered By: Sammie Tricia on 05-05-2023 Troponin I High Sensitivity 9 pg/mL 3.0-78.0 [facility] Comment on above: Please Note: New Lito t Units and Gender Specific Reference Ranges. For more information see Policy Stat Procedure [place] High Sensitivity Troponin (TNIH) and attachments. Absolute lymphocyte countOrd ered By: Philipp Morales on 04-23-2023 Lymphocytes Auto (Unsp spec) [#/Vol] 1.48 10*3/uL 0.83-4.51 [facility] Basophil percentageOrdered B y: Philipp Morales on 04-23-2023 Basophils/100 WBC (Bld) 0.7 % 0-1 [facility] Chloride [Moles/Vol] 108 mmol/L 98-107 [facility] Eosinophils/100 WBC (Bld) 1.6 % 0-5 [facility] Glucose [Mass/Vol] 69 mg/dL 74-[address] [facility] Neutrophils (Bld) [#/Vol] 4.0 10*3/uL 2.0-7.7 [facility] Neutrophils/100 WBC (Bld) 59.2 % 47-70 [facility] Potassium [Moles/Vol] 4.3 mmol/L 3.5-5.1 [facility] Sodium [Moles/Vol] 141 mmol/L 136-[address] [facility] WBC (Bld) [#/Vol] 6.8 10*3/uL 4.4-11.[address] [facility] Blood erythrocytes count (nu mber/volume)Ordered By: Philipp Morales on 04-23-2023 RBC (Bld) [#/Vol] 5.29 10*6/uL 4.6-6.2 [facility] Blood hemoglobin measurement (mass/volume)Ordered By: Philipp Morales on 04-23-2023 Hemoglobin (Bld) [Mass/Vol] 16.5 g/dL 13.0-16.5 [facility] Blood lymphocytes/100 leukoc ytesOrdered By: Philipp Morales on 04-23-2023 Lymphocytes/100 WBC (Bld) 21.9 % 19-41 [facility] Blood monocytes/100 leukocyt esOrdered By: Philipp Morales on 04-23-2023 Monocytes/100 WBC (Bld) 16.0 % 0-10 [facility] Blood platelet mean volumeOr dered By: Philipp Morales on 04-23-2023 Platelet mean volume (Bld) [Entitic vol] 9.4 fL 6.2-12.0 [facility] Determination of erythrocyte mean corpuscular volume (MCV)Ordered By: Philipp Morales on 04-23-2023 MCV (RBC) [Entitic vol] 96.8 fL 80-94 [facility] Hematocrit Auto (Bld) [Volum e fraction]Ordered By: Philipp Morales on 04-23-2023 Hematocrit (Bld) [Volume fraction] 51.2 % 40-54 [facility] INR in Blood by Coagulation assayOrdered By: Philipp Morales on 04-23-2023 INR Coag (Bld) [Relative time] 1.1 {INR} [facility] Laboratory - Chemistry and C hemistry - challengeOrdered By: Philipp Morales on 04-23-2023 CO2 [Moles/Vol] 31.0 mmol/L 21.0-32.0 [facility] Magnesium [Mass/Vol] 2.4 mg/dL 1.6-2.6 [facility] Urea nitrogen/Creatinine [Mass ratio] 22.0 mg/mg 10-20 [facility] Laboratory - CoagulationOrde red By: Philipp Morales on 04-23-2023 aPTT Coag (Bld) [Time] 30.4 s 24.1-36.2 [facility] PT Coag (PPP) [Time] 13.8 s 11.7-14.9 [facility] Laboratory - Hematology and Cell countsOrdered By: Philipp Morales on 04-23-2023 Erythrocyte distribution width (RBC) [Entitic vol] 42.1 fL 35.1-43.9 [facility] Erythrocyte distribution width (RBC) [Ratio] 11.8 % 11.6-14.6 [facility] Immature granulocytes/100 WBC (Bld) 0.600 % 0.0-0.9 [facility] Comment on above: IG% - Immature Granu locytes (promyelocytes, myelocytes and metamyelocytes) > 1% indicates that a LEFT SHIFT is Present. MCH (RBC) [Entitic mass] 31.2 pg 27.0-32.0 [facility] Nucleated RBC/100 WBC (Bld) [Ratio] 0 % 0-5 [facility] MCHC Auto (RBC) [Mass/Vol]Or dered By: Philipp Morales on 04-23-2023 MCHC (RBC) [Mass/Vol] 32.2 g/dL 32-36 [facility] No Panel InformationOrdered By: Philipp Morales on 04-23-2023 Estimated Creatinine Clearance Calc 53.90 ml/min [facility] Estimated GFR (MDRD) Amer 84 mL/min >60 [facility] Comment on above: GFR Calc Estimated GFR (MDRD) Non-Af Amer 70 mL/min >60 [facility] Comment on above: Non- GFR Calc Thyroid Stimulating Hormone (TSH) 1.94 uIU/mL 0.358-3.74 [facility] Platelets bldOrdered By: Keven peres Carmen on 04-23-2023 Platelets (Bld) [#/Vol] 309 10*3/uL 150-450 [facility] Serum or plasma calcium sherry urement (mass/volume)Ordered By: Philipp Morales on 04-23-2023 Calcium [Mass/Vol] 9.3 mg/dL 8.5-10.[address] [facility] Serum or plasma creatinine m easurement (mass/volume)Ordered By: Philipp Morales on 04-23-2023 Creatinine [Mass/Vol] 1.09 mg/dL 0.70-1.30 [facility] Comment on above: The validity of the calculated GFR & GFRAA in patients over 70 years has not been determined. Clinical correlation is essential. Serum or plasma urea nitroge n measurement (mass/volume)Ordered By: Philipp Morales on 04-23-2023 Urea nitrogen [Mass/Vol] 24 mg/dL 7-18 [facility] Thin prep Papanicolaou smear with manual screeningOrdered By: Philipp Morales on 04-23-2023 Thin prep Papanicolaou smear with manual screening 2 5-15 [facility] XR Knee - left 4 Viewson IMPRESSION: Small amount of left joint fluid. Degenerative changes as detailed in report. Mica Paster: PSCB Transcribe Date/Time: Mar 02 2021 1:57P Dictated by : THONG LUTHER MD This examination was interpreted and the report reviewed and electronically signed by: THONG LUTHER MD on Mar 02 2021 2:00PM [facility] DIVISION OF RADIOLOGY * * *Final Report* * * DATE OF EXAM: Mar 02 2021 1:38PM WOX 5202 - XR KNEE 4V AP/PA BOTH+LAT/JORGE LT / PROCEDURE REASON: Acute pain of left knee * * * * Physician Interpretation * * * * EXAMINATION: XR KNEE 4V AP/PA BOTH+LAT/JORGE LT HISTORY: Left knee pain for a few weeks where is would give out and then a week ago felt ok. not bothering him now. pain was lateral side of left knee. No injury. Acute pain of left knee. TECHNIQUE: XR KNEE 4V AP/PA BOTH+LAT/JORGE LT Laterality: LEFT Number of different views (projections): 4 M: XB_1 COMPARISON: There are no prior relevant examinations available for comparison within the [facility] Imaging Archives. RESULT: Standing frontal radiographs of the bilateral knees with bilateral PA flexion views, sunrise views and a lateral view of the left knee show no acute osseous or articular process. There is pancompartmental degenerative change present with periarticular osteophytosis and narrowing of the left lateral tibiofemoral joint compartment. There is mild intercondylar and patellar spurring with lateral subluxation of the left patella with narrowing of the lateral patellofemoral joint space. Mild subluxation is noted on the right. There is a small amount of left suprapatellar joint fluid. The soft tissues are unremarkable. DIVISION OF RADIOLOGY Provider, [facility] - 03/02/2021 * * *Final Report* * * DATE OF EXAM: Mar 02 2021 1:38PM WOX 5202 - XR KNEE 4V AP/PA BOTH+LAT/JORGE LT / PROCEDURE REASON: Acute pain of left knee * * * * Physician Interpretation * * * * EXAMINATION: XR KNEE 4V AP/PA BOTH+LAT/JORGE LT HISTORY: Left knee pain for a few weeks where is would give out and then a week ago felt ok. not bothering him now. pain was lateral side of left knee. No injury. Acute pain of left knee. TECHNIQUE: XR KNEE 4V AP/PA BOTH+LAT/JORGE LT Laterality: LEFT Number of different views (projections): 4 M: XB_1 COMPARISON: There are no prior relevant examinations available for comparison within the [facility]. RESULT: Standing frontal radiographs of the bilateral knees with bilateral PA flexion views, sunrise views and a lateral view of the left knee show no acute osseous or articular process. There is pancompartmental degenerative change present with periarticular osteophytosis and narrowing of the left lateral tibiofemoral joint compartment. There is mild intercondylar and patellar spurring with lateral subluxation of the left patella with narrowing of the lateral patellofemoral joint space. Mild subluxation is noted on the right. There is a small amount of left suprapatellar joint fluid. The soft tissues are unremarkable. IMPRESSION IMPRESSION: Small amount of left joint fluid. Degenerative changes as detailed in report. Mica Paster: PSCB Transcribe Date/Time: Mar 02 2021 1:57P Dictated by : THONG LUTHER MD This examination was interpreted and the report reviewed and electronically signed by: THONG LUTHER MD on Mar 02 2021 2:00PM EST [facility] Radiology Study observation (narrative) [facility] XR Knee - left 4 ViewsOrdere d By: [facility] Provider on 03-02-2021 [facility] XR Lumbar spine 3 Viewson IMPRESSION: Mild levoscoliosis with associated degenerative changes, as described. [facility] Transcribe Date/Time: Jan 06 2021 2:03P Dictated by : MAUREEN ELDER MD This examination was interpreted and the report reviewed and electronically signed by: MAUREEN ELDER MD on Jan 06 2021 2:04PM EST DIVISION OF RADIOLOGY * * *Final Report* * * DATE OF EXAM: Jan 06 2021 1:49PM WOX 5228 - XR LUMBAR 3V AP/LAT/L5-S1 / PROCEDURE REASON: Acute left-sided low back pain without sciatica * * * * Physician Interpretation * * * * History: Acute left-sided low back pain FINDINGS: AP, lateral, and cone-down lateral views of the lumbar spine have been obtained. AP view demonstrates slight leftward curvature of the lumbar spine. There is grade I anterolisthesis of L4 on L5 with associated narrowing of the interspace. To a lesser degree there is narrowing of the L3/4 interspace. Vertebral heights are maintained. There is facet joint arthropathy at the lower 3 lumbar levels. Atherosclerotic changes of the abdominal aorta are noted. DIVISION OF RADIOLOGY Provider, [facility] [place] - 01/06/2021 * * *Final Report* * * DATE OF EXAM: Jan 06 2021 1:49PM WOX 5228 - XR LUMBAR 3V AP/LAT/L5-S1 / PROCEDURE REASON: Acute left-sided low back pain without sciatica * * * * Physician Interpretation * * * * History: Acute left-sided low back pain FINDINGS: AP, lateral, and cone-down lateral views of the lumbar spine have been obtained. AP view demonstrates slight leftward curvature of the lumbar spine. There is grade I anterolisthesis of L4 on L5 with associated narrowing of the interspace. To a lesser degree there is narrowing of the L3/4 interspace. Vertebral heights are maintained. There is facet joint arthropathy at the lower 3 lumbar levels. Atherosclerotic changes of the abdominal aorta are noted. IMPRESSION IMPRESSION: Mild levoscoliosis with associated degenerative changes, as described. Mica Paster: VIK Transcribe Date/Time: Jan 06 2021 2:03P Dictated by : MAUREEN ELDER MD This examination was interpreted and the report reviewed and electronically signed by: MAUREEN ELDER MD on Jan 06 2021 2:04PM EST [facility] Radiology Study observation (narrative) [facility] XR Lumbar spine 3 ViewsOrder ed By: [facility] Provider on 01-06-2021 [facility] NM CARDIAC PERF STRESS/EXERC ISEon 04-03-2020 NM CARDIAC PERF STRESS/EXERCISE * * *Final Report* * * DATE OF EXAM: Apr 03 2020 3:02PM LIZETH 0004 - NM CARDIAC PERF STRESS/EXERCISE / PROCEDURE REASON: I25.119-Coronary artery disease involving tling[place] coronary artery of tling[place] heart * * * * Physician Interpretation * * * * PATIENT: Name: MR. JOCELYN LOAIZA Age: 74 years Gender: M CONCLUSIONS: 1. SPECT Perfusion Study: Normal. 2. There is no scintigraphic evidence for inducible ischemia. 3. No evidence of scarred myocardium. 4. Left ventricle is normal in size. The left ventricle systolic function is normal. 5. Right ventricle is normal in size. 6. This is a low risk scan. 1 LVEF % 60 Prior Study Comparison Prior nuclear cardiology exam was performed on 01/28/15. Nuclear Med Report:1-Day Hi-45a-Ureekfhojjs Exercise Stress Gated SPECT: Myocardial perfusion imaging was performed at rest 30 to 60 minutes following the IV injection of Tc-99m tetrofosmin. One minute prior to peak exercise, the patient was injected IV with Tc-99m tetrofosmin. Gated post stress tomographic imaging was performed 10 to 20 minutes later. See administered doses below. [facility] Date of service: 04/03/2020 1:09:22 PM [...] size. Left ventricular systolic function is normal. Right Ventricle The right ventricle is normal in size. Stress Test Findings: There is no scintigraphic evidence for inducible ischemia. There is no evidence of scarring. Final ------ Stress ECG Report: [facility] Date of service: 04/03/2020 1:09:22 PM Ordering physician: BELLA SANTOS Specialist: Stephy Herrera Retail Loan Originator: Pamela Farah Stress ECG interpreting physician: Hank Owen DO PATIENT: Name: MR. JOCELYN LOAIZA Age: 74 years Gender: M Height: 172.72 cm BSA: 1.91 m? Weight: 75.75 kg BMI: 25.4 kg/m? STRESS ECG CONCLUSION: Conclusion: Normal STRESS ECG SUMMARY: The patient's resting heart rate was 68 bpm and blood pressure was 142/80 mmHg. The patient exercised according to the Rizwan protocol. Total exercise time was 9 minutes and 30 seconds. The maximum heart rate was 130 bpm, which is 89% predicted for age. METs achieved was 8.7. The double product achieved was [address]. Peak heart rate was 130 bpm and peak blood pressure was 190/82 mmHg. STRESS ECG FINDINGS: Indications: CP - ECG interpretable AND able to exercise with low probability Diagnosis: Hyperlipidemia, Hypertension, Coronary Artery Disease and Sleep Apnea Medications: Betablocker, Statins and Alpha blockers Medications: ASA Resting ECG: Normal Sinus Rhythm Exercise Protocol: Rizwan Stress Test: +----+ +---- ----+ +---+-- -+---+---+----+ Step Speed (MPH) Grade(%) Time (min) HR SYS CLAUDIA RPE METS +----+ +---- ----+ +---+-- -+---+---+----+ 1 1.7 10.0 3.0 99 160 80 13 4.2 +----+ +---- ----+ +---+-- -+---+---+----+ 2 2.5 12.0 6.0 114 170 82 13 6.1 +----+ +---- ----+ +---+-- -+---+---+----+ 3 3.4 14.0 9.0 123 190 82 14 8.3 +----+ +---- ----+ +---+-- -+---+---+----+ +-----+ +--- -----+ +---+- --+---+---+----+ Speed (MPH) Grade(%) Time (min) HR SYS CLAUDIA RPE METS +-----+ +--- -----+ +---+- --+---+---+----+ Final 4.2 16.0 9.50 130 190 82 15 8.7 +-----+ +--- -----+ +---+- --+---+---+----+ Recovery: +----+ +---+- --+---+ Step Time (min) HR SYS CLAUDIA +----+ +---+- --+---+ 1 1.0 110 150 76 +----+ +---+- --+---+ 2 3.0 80 124 85 +----+ +---+- --+---+ 3 5.0 82 124 76 +----+ +---+- --+---+ Resting HR: 68 bpm Peak HR: 130 bpm (89% MPHR) Resting BP: 142 / 80 mmHg Peak BP: 190 / 82 mmHg Total Exercise Time: 9 minutes 30 seconds METS achieved: 8.7 Chronotropic response index (CRI): 1.10 Heart rate recovery (HRR): 20 bpm Rate Pressure Product (RPP): 88669 Toribio Treadmill Score: 9.2 Reason for test termination: End of Protocol. Symptoms during test: No symptoms. Heart rate response: Adequate heart rate response, Normal CRI (>0.8 Not on B Arabella) and Normal HRR (>12 or >[address]/EC) Functional Capacity: Good functional capacity Blood pressure response: Normal BP response ST segment and T wave changes: No ST changes Toribio Treadmill Score: Normal Toribio Treadmill Score (>=5) Arrhythmias: Unifocal PVCs and PACs Final ------ Stress Data Center Project Manager Report: [facility] Date of service: 04/03/2020 1:09:22 PM Supervising physician: Hank Owen DO PATIENT: Name: MR. JOCELYN LOAIZA Age: 74 years Gender: M The supervising physician was present during the stress procedure. Final Mica Paster: JONO Transcribe Date/Time: Apr 03 2020 1:09P Dictated by : HANK OWEN DO This examination was interpreted and the report reviewed and electronically signed by: HANK OWEN DO on Apr 03 2020 4:08PM EST [id number] Normal [facility] PROGRESSon 04-03-2020 PROGRESS HNO ID: [id number] Author: Holli KarimiLee'S Summit HospitalABHI Rocha Service: Radiology Author Type: Clinical Optimization Engineer Type: Progress Notes Filed: 04/03/2020 2:06 PM [...] Right antecubital site with a Angio cath: 22 gauge. POST EXAM PIV STATUS: Discontinued PROCEDURE TYPE: NM Stress: 12.7mCi [id number] was administered IV for Rest Imaging at 12:45 by MARCY Rothman 31.6 mCi [id number] was administered IV for Stress Imaging at 13:45 by MARCY Rothman. PATIENT DISCHARGED TO: Ambulatory patient, left CT department area. A Diagnostic radioactive procedure has taken place, with no further precautions necessary other than routine body substance precautions. More information regarding radiation safety can be found using this link: [email or web address] [email or web address] [email or web address] SIGNATURE: MARCY Rothman PATIENT NAME: Jocelyn Loaiza DATE: April 03, 2020 TIME: 1:57 PM [email or web address] JOCELYN LOAIZA ([id number]) 1945 M Date Time Provider Department 04/02/20 STEPHY HERRERA (RN) WILLIAM During your visit today, we recorded the following information about you: Stephy Herrera RN, RN 04/02/2020 1:16 PM Signed Spoke with patient regarding reminder for stress test tomorrow and given instructions. Allergies As of Date: 04/02/2020 (No Known Allergies) Date Reviewed: 12/17/2019 Reviewed by: Theron Delong - Fully Assessed Reason for Visit: Reminder Call [[id number]] Prescriptions as of 04/02/2020 Sig: OMEPRAZOLE 20 MG CAPSULE,BENNY* Take 1 capsule by mouth daily* TAMSULOSIN 0.4 MG CAPSULE Take 1 capsule [...] 9.8 %-HARRIS* Apply thin film to affected a* Problem List As Of Date 04/02/2020 Noted [...] Encounter Status:Closed by STEPHY HERRERA on 04/02/20 [facility] XR Chest PA and Lateralon IMPRESSION: No acute radiographic abnormality. Mica Paster: PSCB Transcribe Date/Time: Mar 12 2020 2:57P Dictated by : ROSA MARIA GAMEZ MD This examination was interpreted and the report reviewed and electronically signed by: ROSA MARIA GAMEZ MD on Mar 12 2020 3:01PM [facility] DIVISION OF RADIOLOGY * * *Final Report* * * DATE OF EXAM: Mar 12 2020 2:31PM WOX 5291 - XR CHEST 2V FRONTAL/LAT / PROCEDURE REASON: multiple diagnoses * * * * Physician Interpretation * * * * EXAMINATION: CHEST RADIOGRAPH (2 VIEW FRONTAL & LATERAL) CLINICAL HISTORY: Chest pain. Atelectasis MQ: XC2_6 EXAM DATE/TIME: 03/12/2020 2:31 PM COMPARISON: Chest x-ray dated 07/03/2019 RESULT: Lines, tubes, and devices: None. Lungs and pleura: No consolidation. No lung mass. No pleural effusion. No pneumothorax. Cardiomediastinal silhouette: Stable cardiomediastinal silhouette with postsurgical changes from median sternotomy and with mildly tortuous aorta. Bones and soft tissues: Unremarkable. DIVISION OF RADIOLOGY Provider, [facility] - 03/12/2020 * * *Final Report* * * DATE OF EXAM: Mar 12 2020 2:31PM WOX 5291 - XR CHEST 2V FRONTAL/LAT / PROCEDURE REASON: multiple diagnoses * * * * Physician Interpretation * * * * EXAMINATION: CHEST RADIOGRAPH (2 VIEW FRONTAL & LATERAL) CLINICAL HISTORY: Chest pain. Atelectasis MQ: XC2_6 EXAM DATE/TIME: 03/12/2020 2:31 PM COMPARISON: Chest x-ray dated 07/03/2019 RESULT: Lines, tubes, and devices: None. Lungs and pleura: No consolidation. No lung mass. No pleural effusion. No pneumothorax. Cardiomediastinal silhouette: Stable cardiomediastinal silhouette with postsurgical changes from median sternotomy and with mildly tortuous aorta. Bones and soft tissues: Unremarkable. IMPRESSION IMPRESSION: No acute radiographic abnormality. Mica Paster: PSCB Transcribe Date/Time: Mar 12 2020 2:57P Dictated by : ROSA MARIA GAMEZ MD This examination was interpreted and the report reviewed and electronically signed by: ROSA MARIA GAMEZ MD on Mar 12 2020 3:01PM EST [facility] Radiology Study observation (narrative) [facility] XR Chest PA and LateralOrder ed By: [facility] Provider on 03-12-2020 [facility] CASE MANAGEMon 06-11-2019 CASE MANAGEM HNO ID: [id number] Author: Mirta Newman (Rn)_ TIMOTHY Humphrey Service: Case Management Author Type: Registered Nurse Type: Care Mgt Progress Note Filed: 06/11/2019 2:28 PM Note Text: CARE MANAGEMENT DISCHARGE NOTE SERVICE DATE: 06/11/2019 SERVICE TIME: 2:25pm LOS: 6 days Admission Date: 06/05/2019 DISCHARGE ARRANGEMENT (list agency and phone number) Discharge Arrangement: Home Shelter Care: PT;Nursing;OT Provider Name: [facility] HANDOFF COMMUNICATION: Handoff to: Primary Care Physician Primary Care Physician Name/Phone: Dr. Bella Burroughs [phone] TRANSPORTATION ARRANGEMENTS: Transportation Arrangements: Car Discharge Information Row Name Admission (Current) from 06/05/[address] Home Health Care Agency [facility] Start of Care 06/13/19 Needs Prior to Discharge: Ready for Discharge IMM Follow Up Copy Given: Yes Copy given to:: Patient Method: In Person Patient is medically cleared for discharge today, referral to [facility] updated, clinical nurse is aware of discharge plans for today, family to transport. SIGNATURE: Mirta Humphrey RN PATIENT NAME: Jocelyn Loaiza DATE: June 11, 2019 TIME: 2:26 PM PAGER/CONTACT #: [phone] [facility] CASE MANAGEM HNO ID: [id number] Author: Albertina COATES Service: Care Management Author Type: ? Type: Care Mgt Progress Note Filed: 06/11/2019 1:46 PM Note Text: CARE MANAGEMENT PROGRESS NOTE SERVICE DATE: 06/11/2019 SERVICE TIME: 11:32am LOS: 6 days IMM Follow Up Copy Given: Yes Copy given to:: Patient Method: In Person SIGNATURE: Albertina COATES PATIENT NAME: Jocelyn Loaiza DATE: June 11, 2019 TIME: 1:45 PM PAGER/CONTACT #: [phone] [facility] NURSING PROGon 06-11-2019 NURSING PROG HNO ID: [id number] Author: Keya KarimiRn) TIMOTHY Mcmillan Service: Nursing Author Type: Registered Nurse Type: Nursing Progress Note Filed: 06/11/2019 5:40 PM Note Text: Discharge instructions reviewed with pt and post cardiothorasic discharge instructions reviewed with pt. IV removed. Telemetry removed. Pt had prescriptions filled here at [facility] and had them in hand at time of discharge.Discharged to home with belongings with family members. [facility] PLAN OF CAREon 06-11-2019 PLAN OF CARE HNO ID: [id number] Author: Myrna Gonzales ([employer]) Service: Pharmacy Author Type: Optimization Engineer Type: Plan of Care Filed: 06/18/2019 10:45 AM Note Text: Pharmacy Discharge Medication Service: This patient has elected to receive their discharge prescriptions through the [facility] Bedside Prescription Delivery program. The prescriptions are currently being processed. A follow-up note will be entered once the prescriptions have been filled and delivered to the patient. Please contact me with any questions or updates to the patient's discharge medications. 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 Patient to use [facility] Bedside Delivery - YES Insurance Information as follows: 2. Insurance card on file - YES 3. Credit card for payment - N/A [facility] PLAN OF CARE HNO ID: [id number] Author: Myrna Gonzales (Room Attendants) Service: Pharmacy Author Type: Optimization Engineer Type: Plan of Care Filed: 06/18/2019 10:46 [...] every 8 hours as needed for Nausea/Vomiting. potassium chloride ER 20 mEq tablet Commonly [...] of your other medications, talk to the person who prescribed them or your Primary Care Provider. STOP taking these medications atenolol 50 mg tablet Commonly known as: TENORMIN nitroglycerin sublingual 0.4 mg SL tablet Commonly known as: NITROSTAT perflutren lipid microspheres 1.1 mg/mL injection (to be provided with echo procedure) Commonly known as: CHANEL Gonzales (Allied Fiber) PAGER: [phone] June 11, 2019 10:45 AM Normal [facility] PROGRESSon 06-11-2019 PROGRESS HNO ID: [id number] Author: Fadia Bangura Service: Electrophysiology Author Type: Physician Type: Progress [...] mg chewable tab(s) 162 mg ORAL/FEEDING TUBE DAILY - ondansetron (PF) 4 mg injection (ZOFRAN) 4 mg INTRAVENOUS q 6 H PRN - heparin 5,000 Units injection 5,000 Units SUBCUTANEOUS q 12 H - atorvastatin 80 mg tab(s) (LIPITOR) 80 mg ORAL AT BEDTIME - pantoprazole DR 40 mg tab(s) (PROTONIX) 40 mg ORAL DAILY (6 AM) - docusate sodium 100 mg cap(s) (COLACE) 100 mg ORAL BID - aluminum-magnesium hydroxide-simethicone 200-200-20 mg/5 mL 30 mL (MAALOX,MYLANTA,MAG-AL PLUS) 30 mL ORAL q 4 H PRN - magnesium hydroxide 400 mg/5 mL 30-60 mL (MOM) 30-60 mL ORAL q 8 H PRN - magnesium oxide 400 mg tab(s) (MAG-OX) 400 mg ORAL BID - multivitamin-ferrous fumarate-folic acid 1 tablet (CENTRUM) 1 tablet ORAL DAILY - insulin lispro injection (rapid acting) (HumaLOG) SUBCUTANEOUS w MEALS - insulin lispro injection (rapid acting) (HumaLOG) SUBCUTANEOUS AT BEDTIME - acetaminophen 1,000 mg tab(s) (TYLENOL) 1,000 mg ORAL q 6 H - tamsulosin ER 0.4 mg cap(s) (FLOMAX) 0.4 mg ORAL DAILY - metoprolol tartrate (short acting) 25 mg tab(s) (LOPRESSOR) 25 mg ORAL q 12 H - montelukast 10 mg tab(s) (SINGULAIR) 10 mg ORAL AT BEDTIME - traMADol 50 mg tab(s) (ULTRAM) 50 mg ORAL q 6 H PRN - furosemide 20 mg injection (LASIX) 20 mg INTRAVENOUS DAILY - potassium chloride ER 20 mEq tab(s) (K-DUR, KLOR-CON) 20 mEq ORAL DAILY - amiodarone 200 mg tab(s) [...] that my recommendation is to stop amiodarone after 6-8 weeks and if he has A fib in the future , other options are preferred 2- I discussed with the pt the risk of stroke that is associated with potential recurrences of A Fib, which can still happen his CHADS-VASc score is 3 I would prefer anticoagulation at least for the first few weeks because of the possible A Fib recurrences , the pt understands he would prefer to hold off anticoagulation 3- CAD post CABG Medication and Non-Pharmacologic VTE Prophylaxis/Anticoagul ants Anticoagulant AND Antiplatelet Medications (From admission, onward) Start Dose Route Frequency Ordered Stop 06/11/19 0000 aspirin, enteric coated (ASPIRIN, ENTERIC COATED) 81 mg EC tablet 162 mg ORAL DAILY 06/11/19 1204 -- 06/07/19 0900 heparin 5,000 Units injection (Surgical Risk Categories ) 5,000 Units SUBCUTANEOUS EVERY 12 HOURS 06/06/19 1453 -- 06/06/19 1500 aspirin 162 mg chewable tab(s) 162 mg PO/FT DAILY 06/06/19 1453 -- @KYLIE CARDOZA([id number])@ VTE Prophylaxis: VTE prophylaxis appropriate SIGNATURE: Fadia Bangura MD PATIENT NAME: Jocelyn Loaiza DATE: June 11, 2019 TIME: 3:32 PM PAGER/CONTACT #: [facility] ALLIED HEALTHon 06-10-2019 ALLIED HEALTH HNO ID: [id number] Author: Bryon Johnson (Rt) Service: Radiology Author Type: Optimization Engineer Type: Allied Health Filed: 06/10/2019 8:25 AM Note Text: Radiology Service Progress Note PATIENT NAME: Jocelyn Loaiza DATE OF SERVICE: June 10, 2019 TIME: 8:25 AM PATIENT IDENTITY VERIFICATION COMPLETED USING TWO (2) IDENTIFIERS: Name and Date of confirmed by patient verbally. PATIENT GENDER DATA: Male PATIENT RELEVANT IMPLANT DATA REVIEWED: Not Applicable RADIOLOGY DEPARTMENT: General X-ray: Exam(s) Completed: Chest X-Ray PERIPHERAL IV DATA: Not applicable SIGNED BY: José Antonio Franks June 10, 2019 8:25 AM [facility] CONSULT PROGon 06-10-2019 CONSULT PROG HNO ID: [id number] Author: Christiano Tapia Service: Electrophysiology Author Type: Physician Type: Consult Progress Note Filed: 06/10/2019 1:54 PM Note Text: 73 y/o male s/p CABG with post op AF now in nsr after AMIODARONE started. from cardiac standpoint doing well but some issues with bowel function and nausea. some issues with bladder function but better now no change of Rx. DR BANGURA will follow in AM DR CHRISTIANO TAPIA MD [facility] NURSING PROGon 06-10-2019 NURSING PROG HNO ID: [id number] Author: Cally Harper (Rn) TIMOTHY Garland Service: ? Author Type: Registered Nurse Type: Nursing Progress Note Filed: 06/10/2019 6:47 PM Note Text: Nursing Progress Note Patient Name: Jocelyn Loaiza Patient Location: / __ Daily Note:1012 Paged PA. Gave suppository this am, pt currently is in the restroom and states, I feel like it is right there, I just can't pass anything and it is uncomfortable. Pt did have a small bm, but still states he feels there is more. Encouraging pt to walk. Ordered prune juice. Safety maintained, call light within reach, will continue to assess. 1036 Spoke to PA. Will order another suppository if pt needs it later today. Pt continues to walk. Tele and safety maintained. Will continue to assess. 1044 Pt walked up [...] mag, prune juice and cherelle alexa. Will continue to assess. 1228 Pt is currently sleeping with his cpap on. Will continue to assess. 1322 Pt had large BM and voided 400ml. Pt is currently in chair. Denies any pain. Tele and safety maintained, call light within reach, will continue to assess. 1844 Pt amb[address] floor. Currently resting in bed. Tele SR, VSS. Tele and safety maintained, call light within reach. This note was completed by: Cally Garland RN [facility] PROGRESSon 06-10-2019 PROGRESS HNO ID: [id number] Author: Feliberto Escalante) Deniz Service: Thoracic Surgery Author Type: Physician Retail Loan Originator Type: Progress Notes Filed: 06/10/2019 10:37 AM Note Text: Cardiac Surgery PROGRESS NOTE EVALUATION DATE: 06/10/2019 EVALUATION TIME: 10:32 AM PRIMARY SERVICE: Cardiac Surgery Subjective INTERVAL HPI: 73 year old male POD #4 s/p CABG x 3 Patient recovering well. He is eating well, +flatus, no BM but feels the urge. He ambulated around pod yesterday and is using IS frequently. He did not sleep well last PM as he did not have home CPAP. Family brought CPAP for him today. Pain is well controlled with current regimen. Urinating well. Remains in NSR. He denies [...] mg chewable tab(s) 162 mg ORAL/FEEDING TUBE DAILY - ondansetron (PF) 4 mg injection (ZOFRAN) 4 mg INTRAVENOUS q 6 H PRN - oxyCODONE IR 5-10 mg tab(s) (ROXICODONE) 5-10 mg ORAL q 4 H PRN - heparin 5,000 Units injection 5,000 Units SUBCUTANEOUS q 12 H - atorvastatin 80 mg tab(s) (LIPITOR) 80 mg ORAL AT BEDTIME - pantoprazole DR 40 mg tab(s) (PROTONIX) 40 mg ORAL DAILY (6 AM) - docusate sodium 100 mg cap(s) (COLACE) 100 mg ORAL BID - aluminum-magnesium hydroxide-simethicone 200-200-20 mg/5 mL 30 mL (MAALOX,MYLANTA,MAG-AL PLUS) 30 mL ORAL q 4 H PRN - magnesium hydroxide 400 mg/5 mL 30-60 mL (MOM) 30-60 mL ORAL q 8 H PRN - magnesium oxide 400 mg tab(s) (MAG-OX) 400 mg ORAL BID - multivitamin-ferrous fumarate-folic acid 1 tablet (CENTRUM) 1 tablet ORAL DAILY - insulin lispro injection (rapid acting) (HumaLOG) SUBCUTANEOUS w MEALS - insulin lispro injection (rapid acting) (HumaLOG) SUBCUTANEOUS AT BEDTIME - acetaminophen 1,000 mg tab(s) (TYLENOL) 1,000 mg ORAL q 6 H - tamsulosin ER 0.4 mg cap(s) (FLOMAX) 0.4 mg ORAL DAILY - metoprolol tartrate (short acting) 25 mg tab(s) (LOPRESSOR) 25 mg ORAL q 12 H - amiodarone 200 mg tab(s) (PACERONE) 200 mg ORAL BID - montelukast 10 mg tab(s) (SINGULAIR) 10 mg ORAL AT BEDTIME Objective PHYSICAL EXAM: BP 127/67 Pulse 72 Temp 36.7 ?C (98 ?F) (Oral) Resp 18 Ht 170.2 cm (5' 7) Wt 79 kg (174 lb 3.2 oz) SpO2 95% BMI 27.28 kg/m? General: alert, in [...] 7.350 - 7.450 pH units Final Specific [place], Ur Date Value Ref Range Status 06/05/2019 [...] ?-continue to increase ambulation, IS use, deep breathing, and PO intake ? Atrial fibrillation: -amiodarone 200 mg PO bid -in NSR and rate controlled HARLEY: -home CPAP ? Hypertension: stable ? Urinary retention: resolved ?-flomax started ?-stable ? Pulmonary atelectasis: ?-continue IS and deep breathing ?-discontin ue lasix ? Acute post -op hyperglycemia: ?-stable on sliding scale ? Acute post-op pain: ?-continue current PO regimen ? DVT ppx: ?-SQ heparin, compression stockings, and asa ? GI ppx: ?-protonix ? ? D/C planning home with [facility] likely tomorrow SIGNATURE: Feliberto Guaman PA-C PATIENT NAME: Jocelyn Loaiza DATE: June 10, 2019 TIME: 10:32 AM [facility] XR CHEST 2V FRONTAL/LATon XR CHEST 2V FRONTAL/LAT * * *Final Report* * * DATE OF EXAM: Jun 10 2019 8:23AM FVX [id number] - XR CHEST 2V FRONTAL/LAT / PROCEDURE REASON: Post-operative / post-procedure assessment, asymptomatic * * * * Physician Interpretation * * * * EXAMINATION: CHEST RADIOGRAPH (2 VIEW FRONTAL and LATERAL) CLINICAL HISTORY: Post-operative / post-procedure assessment, asymptomatic MQ: XC2_5 Comparison: 06/09/2019 RESULT: Lines, tubes, and devices: None. Lungs and pleura: There are persistent small bilateral pleural effusions. There are mild infiltrates/atelectati c changes in both lung bases. Cardiomediastinal silhouette: The patient is status post median sternotomy. There is mild cardiomegaly Other: None. IMPRESSION: Postoperative changes of small bilateral pleural effusions and atelectatic changes in both lung bases remains stable with persistent cardiomegaly. Mica Paster: PSCB Transcribe Date/Time: Jun 10 2019 8:29A Dictated by : ANITA MIKE MD This examination was interpreted and the report reviewed and electronically signed by: ANITA MIKE MD on Jun 10 2019 8:31AM EST [id number] [facility] ALLIED HEALTHon 06-09-2019 ALLIED HEALTH HNO ID: [id number] Author: Bryon Dangelo (Rt) Service: Radiology Author Type: Optimization Engineer Type: Allied Health Filed: 06/09/2019 10:11 AM Note Text: Radiology Service Progress Note PATIENT NAME: Jocelyn Loaiza DATE OF SERVICE: June 09, 2019 TIME: 10:11 AM PATIENT IDENTITY VERIFICATION COMPLETED USING TWO (2) IDENTIFIERS: Name and Date of confirmed by patient verbally. PATIENT GENDER DATA: Male PATIENT RELEVANT IMPLANT DATA REVIEWED: Not Applicable RADIOLOGY DEPARTMENT: General X-ray: Exam(s) Completed: Chest X-Ray PERIPHERAL IV DATA: Not applicable SIGNED BY: RT Antolin June 09, 2019 10:11 AM [facility] Basic Metabolic Panlon 06-09 Anion gap [Moles/Vol] 10 mmol/L Normal 9-18 [facility] Comment on above: Performed By: #### C BC, PT, PTTAC #### [place] [phone] Calcium [Mass/Vol] 8.5 mg/dL Normal 8.5-10.5 [facility] Comment on above: Performed By: #### C BC, PT, PTTAC #### [place] [address] Chloride [Moles/Vol] 101 mmol/L Normal 98-110 [facility] Comment on above: Result Comment: Revi ewed Performed By: #### C BC, PT, PTTAC #### [place] [id number] CO2 [Moles/Vol] 27 mmol/L Normal 23-32 [facility] Comment on above: Performed By: #### C BC, PT, PTTAC #### [address] Creatinine [Mass/Vol] 0.91 mg/dL Normal 0.70-1.40 [facility] Comment on above: Performed By: #### C BC, PT, PTTAC #### [place] [phone] eGFR- Amer. >60 Normal >60 [facility] Comment on above: Performed By: #### C BC, PT, PTTAC #### [place] [phone] GFR/1.73 sq M predicted among non-blacks MDRD (S/P/Bld) [Vol rate/Area] mL/min/{1.73_m2} Normal >60 [facility] Comment on above: Performed By: #### C BC, PT, PTTAC #### [place] [phone] Glucose [Mass/Vol] 121 mg/dL High 65-100 [facility] Comment on above: Performed By: #### C BC, PT, PTTAC #### [place] [phone] Potassium [Moles/Vol] 4.0 mmol/L Normal 3.5-5.0 [facility] Comment on above: Performed By: #### C BC, PT, PTTAC #### [place] [phone] Sodium [Moles/Vol] 138 mmol/L Normal 135-146 [facility] Comment on above: Performed By: #### C BC, PT, PTTAC #### [place] [phone] Urea nitrogen [Mass/Vol] 21 mg/dL Normal 10-25 [facility] Comment on above: Performed By: #### C BC, PT, PTTAC #### [place] [phone] CBC and Differentialon 06-09 Abs Baso <0.03 Normal <0.11 [facility] Comment on above: Performed By: #### C BC, PT, PTTAC #### [place] [phone] Abs Mccreary 1.08 k/uL High <0.87 [facility] Comment on above: Performed By: #### C BC, PT, PTTAC #### [place] [phone] Abs Neut 6.23 k/uL Normal 1.45-7.50 [facility] Comment on above: Performed By: #### C BC, PT, PTTAC #### [place] [phone] Basophils/100 WBC (Bld) 0.2 % Normal [facility] Comment on above: Performed By: #### C BC, PT, PTTAC #### [place] [phone] DTYPE Auto Diff Normal [facility] Comment on above: Performed By: #### C BC, PT, PTTAC #### [place] [address] Eosinophils (Bld) [#/Vol] 0.24 10*3/uL Normal <0.46 [facility] Comment on above: Performed By: #### C BC, PT, PTTAC #### [place] [address] Eosinophils/100 WBC (Bld) 2.8 % Normal [facility] Comment on above: Performed By: #### C BC, PT, PTTAC #### [place] [phone] Erythrocyte distribution width (RBC) [Ratio] 12.9 % Normal 11.5-15.0 [facility] Comment on above: Performed By: #### C BC, PT, PTTAC #### [place] [phone] Hematocrit (Bld) [Volume fraction] 36.3 % Low 39.0-51.0 [facility] Comment on above: Performed By: #### C BC, PT, PTTAC #### [place] [address] Hemoglobin (Bld) [Mass/Vol] 11.8 g/dL Low 13.0-17.0 [facility] Comment on above: Performed By: #### C BC, PT, PTTAC #### [place] [address] Lymphocytes (Bld) [#/Vol] 1.12 10*3/uL Normal 1.00-4.00 [facility] Comment on above: Performed By: #### C BC, PT, PTTAC #### [place] [address] Lymphocytes/100 WBC (Bld) 12.9 % Normal [facility] Comment on above: Performed By: #### C BC, PT, PTTAC #### [place] [address] MCH (RBC) [Entitic mass] 30.8 pG Normal 26.0-34.0 [facility] Comment on above: Performed By: #### C BC, PT, PTTAC #### [place] [phone] MCHC (RBC) [Mass/Vol] 32.5 g/dL Normal 30.5-36.0 [facility] Comment on above: Performed By: #### C BC, PT, PTTAC #### [place] [phone] MCV (RBC) [Entitic vol] 94.8 fL Normal 80.0-100.0 [facility] Comment on above: Performed By: #### C BC, PT, PTTAC #### [place] [phone] Monocytes/100 WBC (Bld) 12.4 % Normal [facility] Comment on above: Performed By: #### C BC, PT, PTTAC #### [place] [phone] Neutrophils/100 WBC (Bld) 71.7 % Normal [facility] Comment on above: Performed By: #### C BC, PT, PTTAC #### [place] [phone] Platelet mean volume (Bld) [Entitic vol] 10.3 fL Normal 9.0-12.7 [facility] Comment on above: Performed By: #### C BC, PT, PTTAC #### [place] [phone] Platelets (Bld) [#/Vol] 162 10*3/uL Normal 150-400 [facility] Comment on above: Performed By: #### C BC, PT, PTTAC #### [place] [phone] RBC (Bld) [#/Vol] 3.83 10*6/uL Low 4.20-6.00 [facility] Comment on above: Performed By: #### C BC, PT, PTTAC #### [place] [id number] WBC (Bld) [#/Vol] 8.69 10*3/uL Normal 3.70-11.00 [facility] Comment on above: Performed By: #### C BC, PT, PTTAC #### [facility] [address] [place] [address] CONSULTon 06-09-2019 CONSULT HNO ID: [id number] Author: Christiano Tapia Service: Electrophysiology Author Type: Physician Type: Consults Filed: 06/09/2019 1:29 PM Note Text: [facility]ARD[facility]IC[facility] CONSULT NOTE Jocelyn Loaiza [id number] PRIMARY SERVICE: Internal Medicine CONSULTING SERVICE: Cardiovascular Medicine: General Consults DATE OF ADMISSION: 06/05/2019 DATE OF CONSULT: 06/09/2019 REASON FOR CONSULT: New onset atrial fibrillation HISTORY OF PRESENT ILLNESS Jocelyn Loaiza is a 73 year old male, known to Dr. Browne in 2014 when he had an abnormal stress test treated medically as a nuclear stress test came back normal. Recent dyspnea on exertion and a cath performed by Dr. Galarza revealed 3 vessel disease now s/p CABG x 3. EP is consulted for post op atrial fibrillation. Never had h/o Afib. HR 154 bpm last evening. Started on a Amiodarone drip and now on PO Amiodarone remaining in SR. H/O HTN, HPL, HARLEY on CPAP, former smoker. ASSESSMENT AND RECOMMENDATIONS 1. Post op atrial fibrillation new onset: converted after starting Amiodarone drip: - currently on Amiodarone 200mg BID - keep K > 4.0 and Mag >2.0 (on K and Mag supplements) - Chads vasc score: 3 (age, HTN, vasc dz) - inra op Echo: EF 55% 2. CAD, s/p CABG x 3 Dr. Tapia to see patient. Irene Alexander, ANNA, REAL ESTATE LOAN OFFICER.MUSEUM INFORMATICS SPECIALIST- Pager [phone] 06/09/2019 11:49 AM PAST MEDICAL HISTORY PAST [...] nitroglycerin sublingual (NITROSTAT) 0.4 mg SL tablet Dissolve 1 tablet under the tongue as needed for Chest Pain. If no pain relief call 911. perflutren lipid microspheres (DEFINITY) 1.1 mg/mL injection (to be provided with echo procedure) Inject 1.3 mL intravenously as directed. Administration Instructions: If no IV access, insert saline lock prior to administering contrast. Discontinue saline lock post exam. If patient has central line or IVAD, may access for administration according to line specific nursing protocol. Once exam [...] administering contrast. Discontinue saline lock post exam. If patient has central line or IVAD, may access for administration according to line specific nursing protocol. Once exam is complete, flush line and de-access per line specific nursing protocol. Diluted IV Bolus: Dilute 1.3 ml of Definity with 8.7 ml of preservative-free saline. sulfacetamide sodium-sulfur 9.8-4.8 % lotn Apply thin film to affected area 1 times daily. INPATIENT MEDICATIONS [...] mg chewable tab(s) 162 mg ORAL/FEEDING TUBE DAILY - ondansetron (PF) 4 mg injection (ZOFRAN) 4 mg INTRAVENOUS q 6 H PRN - oxyCODONE IR 5-10 mg tab(s) (ROXICODONE) 5-10 mg ORAL q 4 H PRN - heparin 5,000 Units injection 5,000 Units SUBCUTANEOUS q 12 H - atorvastatin 80 mg tab(s) (LIPITOR) 80 mg ORAL AT BEDTIME - pantoprazole DR 40 mg tab(s) (PROTONIX) 40 mg ORAL DAILY (6 AM) - docusate sodium 100 mg cap(s) (COLACE) 100 mg ORAL BID - aluminum-magnesium hydroxide-simethicone 200-200-20 mg/5 mL 30 mL (MAALOX,MYLANTA,MAG-AL PLUS) 30 mL ORAL q 4 H PRN - magnesium hydroxide 400 mg/5 mL 30-60 mL (MOM) 30-60 mL ORAL q 8 H PRN - bisacodyl 10 mg suppository (DULCOLAX) 10 mg RECTAL PRN - magnesium oxide 400 mg tab(s) (MAG-OX) 400 mg ORAL BID - multivitamin-ferrous fumarate-folic acid 1 tablet (CENTRUM) 1 tablet ORAL DAILY - insulin lispro injection (rapid acting) (HumaLOG) SUBCUTANEOUS w MEALS - insulin lispro injection (rapid acting) (HumaLOG) SUBCUTANEOUS AT BEDTIME - acetaminophen 1,000 mg tab(s) (TYLENOL) 1,000 mg ORAL q 6 H - tamsulosin ER 0.4 mg cap(s) (FLOMAX) 0.4 mg ORAL DAILY - metoprolol tartrate (short acting) 25 mg tab(s) (LOPRESSOR) 25 mg ORAL q 12 H - magnesium sulfate in water 2 g in sterile water 50 ml 2 g INTRAVENOUS ONCE - amiodarone 200 mg tab(s) (PACERONE) 200 mg ORAL BID ALLERGIES ALLERGIES No Known Allergies COMPLETE REVIEW OF SYSTEMS See HPI PHYSICAL EXAM BP 105/69 Pulse 71 Temp 36.9 ?C (98.4 ?F) (Temporal) Resp 16 Ht 170.2 cm (5' 7) Wt 80.2 kg (176 lb 11.2 oz) SpO2 95% BMI 27.68 kg/m? General Appearance: No distress HEENT: PERRLA Lungs: + rales post bases Heart: Regular rate AND rhythm Abdomen: Soft, Round, Non-tender and Bowel sounds present Skin: Warm and Dry Musculoskeletal: 1+ bilateral LE edema Neurologic/Psychiatric : Oriented to time, place AND person DATA [...] op AF now in nsr after iv AMIODARONE followed by po AMIODARONE. no change of Rx. DR CHRISTIANO TAPIA MD [facility] ECG COMPLETEon 06-09-2019 ECG COMPLETE NAME : STONEY LOAIZA PID : [id number] : 1945 Gender : Male Race : ORD : [id number] Procedure Date : Jun 09 2019 08:40:36 Edit Date : Jun 16 2019 19:33:31 Diagnosis:Sinus rhythm Left anterior fascicular block Probable left ventricular hypertrophy Diffuse ST elevation, consider pericarditis Abnormal ECG Confirmed by YESSICA MCLAIN MD ([id number]) on 06/16/2019 7:33:27 PM Ventricular Rate : 71 BPM Atrial Rate : 71 BPM P-R Interval : 157 ms QRS Duration : 108 ms Q-T Interval : 425 ms QTC Calculation(Bazett) : 462 ms P [place] : 24 degrees R [place] : -56 degrees T [place] : 41 degrees Test Reason : Post-OP Location : [address] : [address] Overread By : YESSICA MCLAIN MD Edited By : YESSICA MCLAIN MD Referred By : , Acquired by : HUGO MORENO [facility] Magnesiumon 06-09-2019 Magnesium [Mass/Vol] 2.0 mg/dL Normal 1.7-2.6 [facility] Comment on above: Performed By: #### C BC, PT, PTTAC #### [facility] [address] [place] [address] NURSING PROGon 06-09-2019 NURSING PROG HNO ID: [id number] Author: Cally Harper (Rn) TIMOTHY Garland Service: ? Author Type: Registered Nurse Type: Nursing Progress Note Filed: 06/09/2019 6:05 PM Note Text: Nursing Progress Note Patient Name: Jocelyn Loaiza Patient Location: [address]/ __ Daily Note:0930 PA removed chest tubes and wires at 0924. Continuing to monitor vital signs. Pt c/o left shoulder pain after removal, declined any pian medication, will re assess in 20 minutes. Chest tube dressing dry and intact.Chest xray ordered. pt walked the pod early this am and did well. Pt has not yet had a bm but states I feel like it will be soon. Will continue to assess. Tele is SR. Tele and safety maintained, call light within reach, will continue to assess. 1001 Xray at bedside. Pt states pain has subsided. VSS. tele and safety maintained, call light within reach. Will continue to assess. 1039 Pt remains on bedrest. Removed O2, pulse ox 94% on RA. Dr uTrner and PA rounded. Pt states he is passing flatus, will continue to assess. Pt states he is expecting company around 1130 today. Tele remains SR. Tele and safety maintained, call light within reach, will continue to assess. 1301 Pt up in chair, vss. Tele is SR. Pt denies any pain. Pt has visitors. Tele and safety maintained, call light within reach, will continue to assess. 1759 Pt up walked the pod with walker and stand by assist, on RA. Pt did well. Pt c/o nose feeling stuffy paged PA see new orders. Also gave Milk of Mag. Pt has not yet had BM. Pt c/o his butt feeling sore, sitting in chair. Redness noted, chair cushion ordered. Tele remains SR, VSS. This note was completed by: Cally Garland RN [facility] NURSING PROG HNO ID: [id number] Author: Tasha (Rn) TIMOTHY Griffin Service: Nursing Author Type: Registered Nurse Type: Nursing Progress Note Filed: 06/09/2019 12:12 AM Note Text: Nursing Progress Note Patient Name: Jocelyn Loaiza Patient Location: [place] [address] __ Daily Note: 2331: mahamed Dao (Roberto Carlos). Pt converted into SNR. Currently on amino gtt 1mg. 2340: pageantolin hayes. Feliberto ordered to stop the amino gtt. And to restart amiodarone 200 mg PO BID. And to discontinued 12.5 mg metoprolol BID. This note was completed by: Tasha Griffin RN [facility] PROGRESSon 06-09-2019 PROGRESS HNO ID: [id number] Author: Feliberto Guaman (Pa) Service: Thoracic Surgery Author Type: Physician Retail Loan Originator Type: Progress Notes Filed: 06/09/2019 9:30 AM Note Text: Cardiac Surgery PROGRESS NOTE EVALUATION DATE: 06/09/2019 EVALUATION TIME: 9:23 AM PRIMARY SERVICE: Cardiac Surgery Subjective INTERVAL HPI: 73 year old male POD #3 s/p CABG x 3 Patient had an episode of atrial fibrillation last evening, but denies experiencing palpitations or other symptoms. His appetite continues to improve, +flatus, no BM yet. He ambulated 3 times yesterday around pod and once this AM. He is using IS multiple times per hour. Pain is well controlled with current PO [...] mg chewable tab(s) 162 mg ORAL/FEEDING TUBE DAILY - ondansetron (PF) 4 mg injection (ZOFRAN) 4 mg INTRAVENOUS q 6 H PRN - oxyCODONE IR 5-10 mg tab(s) (ROXICODONE) 5-10 mg ORAL q 4 H PRN - heparin 5,000 Units injection 5,000 Units SUBCUTANEOUS q 12 H - atorvastatin 80 mg tab(s) (LIPITOR) 80 mg ORAL AT BEDTIME - pantoprazole DR 40 mg tab(s) (PROTONIX) 40 mg ORAL DAILY (6 AM) - docusate sodium 100 mg cap(s) (COLACE) 100 mg ORAL BID - aluminum-magnesium hydroxide-simethicone 200-200-20 mg/5 mL 30 mL (MAALOX,MYLANTA,MAG-AL PLUS) 30 mL ORAL q 4 H PRN - magnesium hydroxide 400 mg/5 mL 30-60 mL (MOM) 30-60 mL ORAL q 8 H PRN - bisacodyl 10 mg suppository (DULCOLAX) 10 mg RECTAL PRN - magnesium oxide 400 mg tab(s) (MAG-OX) 400 mg ORAL BID - multivitamin-ferrous fumarate-folic acid 1 tablet (CENTRUM) 1 tablet ORAL DAILY - insulin lispro injection (rapid acting) (HumaLOG) SUBCUTANEOUS w MEALS - insulin lispro injection (rapid acting) (HumaLOG) SUBCUTANEOUS AT BEDTIME - acetaminophen 1,000 mg tab(s) (TYLENOL) 1,000 mg ORAL q 6 H - tamsulosin ER 0.4 mg cap(s) (FLOMAX) 0.4 mg ORAL DAILY - metoprolol tartrate (short acting) 25 mg tab(s) (LOPRESSOR) 25 mg ORAL q 12 H - magnesium sulfate in water 2 g in sterile water 50 ml 2 g INTRAVENOUS ONCE - amiodarone 200 mg tab(s) (PACERONE) 200 mg ORAL BID Objective PHYSICAL EXAM: BP 93/58 Pulse 76 Temp 36.7 ?C (98 ?F) (Temporal) Resp 18 Ht 170.2 cm (5' 7) [...] 7.350 - 7.450 pH units Final Specific [place], Ur Date Value Ref Range Status 06/05/2019 [...] to increase ambulation, IS use, deep breathing, and PO intake Atrial fibrillation: -amiodarone 200 mg [...] GI ppx: -protonix D/C planning home with [facility] likely tomorrow vs Tuesday Procedure Note: EPW [...] SIGNATURE: Feliberto Guaman PA-C PATIENT NAME: Jocelyn Loaiza DATE: June 09, 2019 TIME: 9:23 AM [facility] XR CHEST 1V FRONTAL PORTon 0 06-09-2019 XR CHEST 1V FRONTAL PORT * * *Final Report* * * DATE OF EXAM: Jun 09 2019 10:10AM FVX [id number] - XR CHEST 1V FRONTAL PORT / PROCEDURE REASON: Post-operative / post-procedure assessment, asymptomatic * * * * Physician Interpretation * * * * EXAMINATION: CHEST RADIOGRAPH (PORTABLE SINGLE VIEW AP) Exam Date/Time: 06/09/2019 10:10 AM CLINICAL HISTORY: Post-operative / post-procedure assessment, asymptomatic MQ: XCPR_5 Comparison: 06/07/2019 RESULT: Lines, tubes, and devices: The previously seen [place]ac[place] catheter has been removed. Lungs and pleura: There is persistent hypoinflation of the lungs with improvement of the infiltrates/atelectati c changes involving both lung bases. There are small bilateral pleural effusions. Cardiomediastinal silhouette: There is persistent cardiomegaly. The patient is status post median sternotomy. Other: None. IMPRESSION: Satisfactory postoperative exam. Mica Paster: PSCB Transcribe Date/Time: Jun 09 2019 10:12A Dictated by : ANITA MIKE MD This examination was interpreted and the report reviewed and electronically signed by: ANITA MIKE MD on Jun 09 2019 10:13AM EST [id number] [facility] CASE MANAGEMon 06-08-2019 CASE MANAGEM HNO ID: [id number] Author: Mirta KarimiRn)_ TIMOTHY Humphrey Service: Case Management Author Type: Registered Nurse Type: Care Mgt Progress Note Filed: 06/08/2019 9:51 AM Note Text: CARE MANAGEMENT PROGRESS NOTE SERVICE DATE: 06/08/2019 SERVICE TIME: 9:45am LOS: 3 days Needs Prior to Discharge: Home Care Order;To Be Determined Patient transferred to [facility], this TCC met with patient to discuss discharge planning and home health care choices, in which, [facility], as well as, [facility] and [facility]., referrals sent, TCC will continue to follow for dc planning as indicated. Addendum: [facility] has accepted, patient updated. SIGNATURE: Mirta Humphrey RN PATIENT NAME: Jocelyn Loaiza DATE: June 08, 2019 TIME: 9:47 AM PAGER/CONTACT #: [phone] [facility] ECG COMPLETEon 06-08-2019 ECG COMPLETE NAME : STONEY LOAIZA PID : [id number] : 1945 Gender : Male Race : ORD : [id number] Procedure Date : Jun 08 2019 17:49:32 Edit Date : Jun 17 2019 15:41:01 Diagnosis:Atrial fibrillation with rapid ventricular response Left anterior fascicular block Probable left ventricular hypertrophy Minimal ST elevation diffuse leads Borderline prolonged QT interval Abnormal ECG Confirmed by YESSICA MCLAIN MD ([id number]) on 06/17/2019 3:41:00 PM Ventricular Rate : 126 BPM Atrial Rate : 175 BPM P-R Interval : 158 ms QRS Duration : 107 ms Q-T Interval : 333 ms QTC Calculation(Bazett) : 483 ms R [place] : -65 degrees T [place] : 69 degrees Test Reason : Arrhythmia Location : [address] : [address] Overread By : YESSICA MCLAIN MD Edited By : YESSICA MCLAIN MD Referred By : , Acquired by : JES SOLORIO [facility] NURSING PROGon 06-08-2019 NURSING PROG HNO ID: [id number] Author: Teresa (Rn) TIMOTHY Goodwin Service: ? Author Type: Registered Nurse Type: Nursing Progress Note Filed: 06/08/2019 7:58 PM Note Text: Nursing Progress Note Patient Name: Jocelyn Loaiza Patient Location: [id number] __ Daily Note:09:30 Patient alert/oriented times three. VSS. Tele shows SR. Lungs clear, diminished bases. O 2 sat 98% 2 liters nc. No distress noted. Midsternal dressing dry/intact. Abd soft nontender. + bs. Chest tube intact. Drains seroussang drainage. Feliberto AZEVEDO aware of frequency urine minimal output on nights. No pedal edema noted 2+ pedal pulses. Teds on. Patient up in chair. 10:00Patient resting quietly in bed. Flomax started. Call light within reach. 12:30 Patient ambulated up hallway with PCNA. Gait steady no distress noted.O 2 sat 100% ra. Assessment unchanged. 12:45 OT into assess patient. Assessment unchanged. Voids per urinal. 13:00 Patient ambulated with Cardiac rehab. Up in chair. Assessment unchanged Call light within reach.. 16:25 Patient medicated for incisional pain. Patient assisted back to bed. Voids yellow urine per urinal. No distress noted. Call light within reach. 17:08 Patient went into afib 113. Feliberto Signal Integrity Engineer notified. STAT Ekg . BP 118/64. Patient denies any palpitations or dinariness. Orders given @ this time. Feliberto TARGET MAN on uint updated on condition. Tele shows afib 120 17:30 Mag bolus infusing. Ekg completed. 18:35 Dr Galarza notified afib 120-130' after mag bolus and p.o. Amio and 12.5 p.o. lopressor given earlier. Orders given to give amiodarone bolus followed by Amiodarone gtt. Dr Bangura consult placed BP 118/74. Patient asymptomatic. Patient resting quietly in bed @ this time.This note was completed by: Teresa Goodwin RN [facility] PROGRESSon 06-08-2019 PROGRESS HNO ID: [id number] Author: Feliberto (Beth Guaman Service: Thoracic Surgery Author Type: Physician Retail Loan Originator Type: Progress Notes Filed: 06/08/2019 11:12 AM Note Text: Cardiac Surgery PROGRESS NOTE EVALUATION DATE: 06/08/2019 EVALUATION TIME: 11:01 AM PRIMARY SERVICE: Cardiac Surgery Subjective INTERVAL HPI: 73 year old male POD #2 s/p CABG x 3 Patient underwent CABG x 3 on 04/05/2020. The procedure went well and was without complications. He was transported to the ICU for post-op care. No significant events while in the ICU and he was deemed appropriate for transfer to [facility] on POD #1. Patient reports feeling much better today compared to yesterday. Pain is well controlled with current PO regimen. He ambulated twice yesterday after transfer. He is eating well, passing flatus, no BM yet. He slept well last PM. He is [...] mg chewable tab(s) 162 mg ORAL/FEEDING TUBE DAILY - ondansetron (PF) 4 mg injection (ZOFRAN) 4 mg INTRAVENOUS q 6 H PRN - oxyCODONE IR 5-10 mg tab(s) (ROXICODONE) 5-10 mg ORAL q 4 H PRN - heparin 5,000 Units injection 5,000 Units SUBCUTANEOUS q 12 H - atorvastatin 80 mg tab(s) (LIPITOR) 80 mg ORAL AT BEDTIME - pantoprazole DR 40 mg tab(s) (PROTONIX) 40 mg ORAL DAILY (6 AM) - metoprolol tartrate (short acting) 12.5 mg tab(s) (LOPRESSOR) 12.5 mg ORAL q 12 H - docusate sodium 100 mg cap(s) (COLACE) 100 mg ORAL BID - aluminum-magnesium hydroxide-simethicone 200-200-20 mg/5 mL 30 mL (MAALOX,MYLANTA,MAG-AL PLUS) 30 mL ORAL q 4 H PRN - [START ON 06/09/2019] magnesium hydroxide 400 mg/5 mL 30-60 mL (MOM) 30-60 mL ORAL q 8 H PRN - [START ON 06/09/2019] bisacodyl 10 mg suppository (DULCOLAX) 10 mg RECTAL PRN - magnesium oxide 400 mg tab(s) (MAG-OX) 400 mg ORAL BID - potassium chloride ER 20 mEq tab(s) (K-DUR, KLOR-CON) 20 mEq ORAL DAILY - multivitamin-ferrous fumarate-folic acid 1 tablet (CENTRUM) 1 tablet ORAL DAILY - furosemide 20 mg tab(s) (LASIX) 20 mg ORAL DAILY - insulin lispro injection (rapid acting) (HumaLOG) SUBCUTANEOUS w MEALS - insulin lispro injection (rapid acting) (HumaLOG) SUBCUTANEOUS AT BEDTIME - acetaminophen 1,000 mg tab(s) [...] 7.350 - 7.450 pH units Final Specific [place], Ur Date Value Ref Range Status 06/05/2019 [...] to increase ambulation, IS use, deep breathing, and PO intake Hypertension: stable Urinary retention: -flomax started -stable Pulmonary atelectasis: -continue IS and deep breathing -lasix 20 mg PO daily Acute post -op hyperglycemia: -stable on sliding scale Acute post-op pain: -continue current PO regimen -chest tubes will likely be removed tomorrow DVT ppx: -SQ heparin, compression stockings, and asa GI ppx: -protonix SIGNATURE: Feliberto Guaman PA-C PATIENT NAME: Jocelyn Loaiza DATE: June 08, 2019 TIME: 11:01 AM [facility] PT EDon 06-08-2019 PT ED HNO ID: [id number] Author: Krystin Layton) TIMOTHY Peterson Service: Cardiac Rehab Author Type: Registered Nurse [...] interested in Phase II Outpatient Cardiac Rehab: Yes. Facility Preferred: [facility] DIAGNOSIS: Open Heart Surgery: CABG Open Heart Surgery Teaching Points: -Basic Anatomy and Disease Process -Personal Modifiable Risk Factor Identification -Activity/Physical Exercise Recommendations -When patient should call provider -Outpatient Cardiac Rehabilitation READINESS TO LEARN: Cognitive Ability: Alert and Oriented Motivation to Learn: Interested Family Support: None - Unavailable/disinteres ernie Instruction Provided To: Patient Patient Learns Best By: Individual Instruction, Written Instruction - Hand-outs and Verbal Instruction Factors Affecting Learning: None Physical Limitations Affecting Learning: None LEARNING RESPONSE: Method Of Instruction: Individual instruction Patient/Family Response: Verbalizes understanding of: all recommendations Follow-up Plan: No further educational needs identified at this time. Instructional Aids Used: Anatomical Model/Drawing Cardiac Rehabilitation Brochure Educational Binder [facility] Cardiac Rehab Programs Outpatient Diet/Nutrition Class Invitation Signature: Krystin peterson RN Pager: [email or web address] Date: June 08, 2019 Time: 2:07 PM [facility] THERAPY NTon 06-08-2019 THERAPY NT HNO ID: [id number] Author: Melodie Anand Service: Physical Therapy Author Type: Change Management Coordinator Type: Therapy (PT/OT/Speech/Resp) Filed: 06/08/2019 2:51 PM Note Text: Attestation signed by Francisco J KarimiPtDonna Ken at 06/08/2019 4:08 PM I reviewed and agree with the assessment as documented above. SIGNATURE: Francisco J Ken, PT DATE: June 08, 2019 TIME: 4:08 PM Physical Therapy Treatment SERVICE DATE: 06/08/2019 SERVICE TIME: 1310 to 1335 ROOM: [place] [address] S/P CABG x 3 Recommended Discharge Disposition: Home PT Anticipated Discharge Needs: Physical Assist at Home;Equipment Physical Assist at Home for: Cleaning;Laundry;Trans portation;Shopping Recommended Discharge Equipment: (pt has own WW) PT Recommendations to Nursing: Ambulate with device;In halls;With assist of 1 person Device: Wheeled Walker PT 6 Clicks Score: 19 Precautions/Activity Restrictions: Bed/Chair Alarm;Cardiac;Fall Risk;Lines/Tubes/Drain s;Sternal Precaution/Activity Restriction Comments: chest tube intact Isolation Type: None ASSESSMENT : Chest tube intact; pt would benefit from continued skilled therapy for increased strengthening, transfer skills, progression of ambulation, endurance and balance. . Patient Disposition at Start of Session: OOB in Chair;Call Martinez in Reach;Chair Alarm Patient Disposition at End of Session: OOB in Chair;Call Martinez in Reach;Chair Alarm;Nursing Personnel Present Tolerated Full [...] 3(and PRN visit) Current admission Treatment Interventions: Strengthening;Function al Mobility Training;Balance Training Plan of Care developed with: Patient TREATMENT INTERVENTIONS: Therapy Diagnosis: Reduced mobility-other Interventions Provided: Therapeutic Exercise (48926);Gait Training (63726) Therapeutic Exercise (85875) Treatment Minutes: 10 1 unit Skilled Intervention(s): Instruction in therapeutic exercise for increased circulation and strength of B LE Verbal and tactile cuing provided for pace and performance; pt performed slowly for maximum benefit Education in performing seated ex 2-3 x daily as indicated Gait Training (22286) Treatment Minutes: 15 1 unit Skilled Intervention(s): Instruction in sit to stand technique with proper hand placement and body positioning at edge of bed/chair, Instruction in stand to sit technique with LE's touching chair/bed and reaching back for surface, Instruction in sequencing, gait pattern, Instruction in correction of gait deviations and Instruction in use of equipment, cues for sequence and pattern. Cueing for upright posture and pursed lip breathing. Instructed pt to increase use of IS. Total Timed Code Treatment Minutes: 25 Total Treatment Time (minutes): 25 SUBJECTIVE: Current Hospital Course: Chart reviewed and no significant medical updates relevant to therapy were noted Reason for Physical Therapy Consult : Pt had chest pain and is s/p CABG x 3. Relevant Past Medical History: HTN, HLD Patient Report: I 'd glad I can walk that far, it felt good Home Environment Patient Lives With: Spouse Assistance Available: PRN Entry To Home: Stairs;With Rail Number Of Stairs Into Home: 7 Number Of Stairs To Bed/Bath: 7; half bath first floor Stairs to Bed/Bath with: Unilateral Rail Tub/Shower Type: Tub shower Laundry: Basement Equipment Owned: Cane;Wheeled Walker;Shower Chair;Certified Rehabilitation Counselor(stair lift, may also have sock aide at home ) Prior Functional Level: Within Functional Limits Prior Functional Level Comments: Per pt, Ind ADLs, IADLs, drives, amb Ind. OBJECTIVE: CURRENT FUNCTIONAL STATUS: Current Functional Mobility Assist Level Additional Information Rolling Supine to Sit Sit to Supine Minimal Assistance Scooting Sit to Stand Minimal Assistance Stand to Sit Contact Guard Assistance Bed to Chair Toilet/Commode Gait Stand By Assistance Gait Device: Wheeled Walker Gait Distance (feet): 200 ft Stairs Curb Step Car Transfer General Gait Deviations: Alice decreased;Step length decreased;Flexed trunk posture(02 sat decreased to 88%, pt placed back on 2 L 02 ) Balance: Static Standing;Dynamic Standing Static Standing Balance: Fair Able to stand unsupported without UE support and without LOB for 1 - 2 min Dynamic Standing Balance: Fair Stand independently unsupported, weight shift, and reach ipsilaterally, LOB when crossing midline JH-HLM: 7: Walk 25 feet or more Please see discipline specific clinical documentation flowsheet for complete details for this therapy evaluation/treatment. SIGNATURE: Melodie Anand PTA PATIENT NAME: Jocelyn Loaiza DATE: June 08, 2019 TIME: 2:48 PM [facility] THERAPY NT HNO ID: [id number] Author: Esperanza (Ot/L) Sinito Service: Occupational Therapy Author Type: Occupational Therapist Type: Therapy (PT/OT/Speech/Resp) Filed: 06/08/2019 1:19 PM Note Text: Occupational Therapy Treatment SERVICE DATE: 06/08/2019 SERVICE TIME: 1217 to 1256 ROOM: [place] [address] Recommended Discharge Disposition: Home OT Anticipated Discharge Needs: Physical Assist at Home;Equipment Physical Assist at Home for: Cleaning;Laundry;Trans portation;Shopping Recommended Discharge Equipment: Certified Rehabilitation Counselor;Long Handled Sponge OT Recommendations to Nursing: ADL?s in chair;To Bathroom for ADL?s /and or Toileting;OOB for meals;Transfer to Chair;With assist of 1 person Equipment: Wheeled Walker;Commode-Bedside (BSC over toilet for increased surface height ) OT 6 Clicks Score: 17 Precautions/Activity Restrictions: Fall Risk;Lines/Tubes/Drain s;Cardiac;Sternal Precaution/Activity Restriction Comments: mobilize Isolation Type: None ASSESSMENT: Patient demonstrates progress with sternal precaution recall AND understanding as well as LE dressing and bathing skills this session; however, continues to present with deficits in activity tolerance, functional mobility AND self care. As these deficits impact independence and safety with ADLs AND functional task completion, pt requires continued skilled OT intervention to address these deficits in order to progress self care skills. Pt would benefit from Home OT services at discharge to aid in return to PLOF. Patient Disposition at Start of Session: Other: See Comment(ambulating with EMPLOYMENT LEGAL ASSISTANT back into room ) Patient Disposition at End of Session: OOB in Chair;Call Martinez in Reach;Nursing Personnel Present Tolerated Full Session Occupational Therapy Problem List: Safety Deficits;Impaired Self Care;Decreased Activity Tolerance;Functional Mobility Impairment Patient /Caregiver Goals: Go Home Goals for [...] admission Treatment Interventions: Education;Self Care / Home Management;Energy Conservation Training;Functional Mobility Training Plan of Care developed with: Patient TREATMENT INTERVENTIONS: Therapy Diagnosis: Reduced mobility-other;Decreas ed activities of daily living (ADL) Interventions Provided: Self Shelter Management (83806) Self Shelter Management (78201) Treatment Minutes: 39 3 units Skilled Intervention(s): Cues provided for return to chair using FWW for balance during brief functional mobility task in preparation to participate in ADls seated in chair. CGA for balance and vcs for safe hand use/positioning with stand to sit with CGA to control descent safely. Pt educated on importance of adhering to sternal precautions for safe healing and how sternal precautions impact ADLs with emphasis on benefits of wearing loose fitting clothing, having assist for Ernie hose, use of adapted methods and/or AE to prevent deep trunk flexion and sitting to perform for energy conservation for sternal and cardiac precaution adherence. Pt voiced and demonstrated good understanding during ADL performance. Education and demo provided re: safe UE dressing methods with emphasis on benefits of wearing loose, button front clothing as well as method for adjusting clothing around back/shoulders without utilizing increased IR for precaution adherence. Pt voiced good understanding. Education provided re: use of energy conservation strategies for improved safety, Ind AND adherence to cardiac precautions with emphasis on benefits of pacing, taking breaks, sitting to perform tasks, use of shower chair, PLB technique AND use of long handled sponge. Pt voiced good understanding and reported he has shower chair to use at home. Pt demonstrated good understanding of PLB method with min vcs for carry over. Provided instruction, cuing and facilitation for lower body dressing with emphasis on benefits of using figure 4 method, adapted figure 4 with LE supported on bed d/t reduced ROM on LLE graft harvest site and/or use of AE for improved Ind, EC and to prevent deep front bending for p[recaution adherence. Pt able to don/doff R sock using figure 4 method with Sup and increased time for EC. Pt unable to perform figure 4 with LLE d/t reduced ROM and soreness at LLE graft harvest site. After education and demo, pt able to doff L sock with sod farmer with Min A for AE placement and SBA to complete. SBA to don L sock with sock aide. Issued handouts of PLB method, energy conservation, AE and modified ADL techniques for improved carry over at home. Total Timed Code Treatment Minutes: 39 Total Treatment Time (minutes): 39 SUBJECTIVE: Current Hospital Course: Chart reviewed and no significant medical updates relevant to therapy were noted Reason for Occupational Therapy Consult: s/p CABG x 3 Relevant Past Medical History: HTN, HLD Patient Report: Pt AND EMPLOYMENT LEGAL ASSISTANT just returning from ambulating around the unit upon OT's arrival with both reporting pt tolerated this activity well. Pt required CGA with FWW t/o task on unit. Home Environment Patient Lives With: Spouse Assistance Available: PRN Entry To Home: Stairs;With Rail Number Of Stairs Into Home: 7 Number Of Stairs To Bed/Bath: 7; half bath first floor Stairs to Bed/Bath with: Unilateral Rail Tub/Shower Type: Tub shower Laundry: Basement Equipment Owned: Cane;Wheeled Walker;Shower Chair;Certified Rehabilitation Counselor(stair lift, may also have sock aide at home ) Prior Functional Level: Within Functional Limits Prior Functional Level Comments: Per pt, Ind ADLs, IADLs, drives, amb Ind. OBJECTIVE: Cognition/Communicatio n Deficits Responsiveness: Alert Follows Commands: 3-step Commands [...] Comments: in room to chair, steady, no LOB Balance: Static Sitting;Dynamic Sitting;Static Standing;Dynamic Standing Static Sitting Balance: Normal Able to maintain balance against maximal resistance Dynamic Sitting Balance: Good Able to sit unsupported AND weight shift across midline moderately Static Standing Balance: Fair- Requires Min A or UE support in order to stand without LOB Dynamic Standing Balance: Poor+(CGA) Able to stand with Min A and reach ipsilaterally, unable to weight shift(CGA) Activity Tolerance: Sitting Activity Sitting Activity: in chair/ADLs Sitting Activity Tolerance (in minutes): 20 Please see discipline specific clinical documentation flowsheet for complete details for this therapy evaluation/treatment. SIGNATURE: Esperanza Tucker OT/Edith PATIENT NAME: Jocelyn Loaiza DATE: June 08, 2019 TIME: 1:06 PM [facility] THERAPY NT HNO ID: [id number] Author: Melodie Anand Service: Physical Therapy Author Type: Change Management Coordinator Type: Therapy (PT/OT/Speech/Resp) Filed: 06/08/2019 10:52 AM Note Text: Attestation signed by Sharee Puri at 06/08/2019 12:31 PM I reviewed and agree with the documentation corresponding to this therapy visit. SIGNATURE: Sharee Puri PT DATE: June 08, 2019 TIME: 12:31 PM PHYSICAL THERAPY MISSED VISIT SERVICE DATE: 06/08/2019 SERVICE TIME: 1000 to 1000 ROOM: [place] [address] Attempted Treatment. Patient not seen due to (pt returning to bed; requested p.m. session). SIGNATURE: Melodie Anand PTA PATIENT NAME: Jocelyn Loaiza DATE: June 08, 2019 TIME: 10:52 AM [facility] ALLIED HEALTHon 06-07-2019 ALLIED HEALTH HNO ID: [id number] Author: Bryon Forbes (Rt) Service: Radiology Author Type: Optimization Engineer Type: Allied Health Filed: 06/07/2019 6:58 AM Note Text: Radiology Service Progress Note PATIENT NAME: Jocelyn Loaiza DATE OF SERVICE: June 07, 2019 TIME: 6:58 AM PATIENT IDENTITY VERIFICATION COMPLETED USING TWO (2) IDENTIFIERS: Name and Date of confirmed by patient verbally and Name and Date of confirmed by identification band. PATIENT GENDER DATA: Female. status: : No status: N/A PATIENT RELEVANT IMPLANT DATA REVIEWED: Not Applicable RADIOLOGY DEPARTMENT: General X-ray: Exam(s) Completed: Chest X-Ray PERIPHERAL IV DATA: Not applicable SIGNED BY: BRYON Forbes June 07, 2019 6:58 AM [facility] Basic Metabolic Panlon 06-07 Anion gap [Moles/Vol] 11 mmol/L Normal 9-18 [place] [facility] Comment on above: Performed By: #### C BRIAN CATES, MG1 ####[place] [id number] [place], [place] [phone] Calcium [Mass/Vol] 8.1 mg/dL Low 8.5-10.5 [facility] Comment on above: Performed By: #### C BRIAN CATES, MG1 ####[facility] [place], [place] [phone] Chloride [Moles/Vol] 108 mmol/L Normal 98-110 [facility] Comment on above: Performed By: #### C BRIAN CATES, MG1 ####[address] [phone] CO2 [Moles/Vol] 22 mmol/L Low 23-32 [facility] Comment on above: Performed By: #### C BC BMP, MG1 ####[place] [phone] Creatinine [Mass/Vol] 0.78 mg/dL Normal 0.70-1.40 [facility] Comment on above: Performed By: #### C BC BMP, MG1 ####[place] [phone] eGFR- Amer. >60 Normal >60 [facility] Comment on above: Performed By: #### C BC BMP, MG1 ####[place] [phone] GFR/1.73 sq M predicted among non-blacks MDRD (S/P/Bld) [Vol rate/Area] mL/min/{1.73_m2} Normal >60 [facility] Comment on above: Performed By: #### C BC BMP, MG1 ####[place] [phone] Glucose [Mass/Vol] 151 mg/dL High 65-100 [facility] Comment on above: Performed By: #### Brittany BC BMP, MG1 ####[place] [phone] Potassium [Moles/Vol] 4.2 mmol/L Normal 3.5-5.0 [facility] Comment on above: Performed By: #### C BC BMP, MG1 ####[place] [phone] Sodium [Moles/Vol] 141 mmol/L Normal 135-146 [facility] Comment on above: Performed By: #### C BC, BMP, MG1 ####[place] [phone] Urea nitrogen [Mass/Vol] 14 mg/dL Normal 10-25 [facility] Comment on above: Performed By: #### C BC, BMP, MG1 ####[facility] [place], [place] [phone] CASE MGT INIT [place] 2019 CASE MGT INIT BR[place]Y HNO ID: [id number] Author: Sammie (Rn) TIMOTHY Monzon Service: Care Management Author Type: Registered Nurse Type: Care Mgt Initial Assessment Filed: 06/07/2019 12:33 PM Note Text: CARE MANAGEMENT: ASSESSMENT AND DISCHARGE PLAN SERVICE DATE: June 07, 2019 SERVICE TIME: 12:31 PM PRIMARY CARE PHYSICIAN: Bella Santos MD ADMISSION STATUS: Inpatient Needs Prior to Discharge: OT/PT Evaluation;Home Care Order;Facility or Agency Choices MEDICAL: [employer] MEDICARE 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 Last discharge within 30 days: Yes Is this a planned readmission?: Yes Advance Directive: Current Advance Directive: Health Care Power of Power Wheelchair Mechanic;Living Will In Chart: No Film Sound Engineer Attempted to Assist with AD Completion: Yes Action: Education Provided;Other: See Comment(states will take copy to next MD appointment) Health LiteracyHow often do you need to have someone help you when you read instructions, pamphlets, or other written material from your doctor or pharmacy? : 1 - Never How confident are you filling out medical forms by yourself?: 1 - Extremely If Patient scores > 3 on either question, the following interventions were put into place:: Patient did not score > 3 on either question. Baseline Mental Status Prior to this Illness what was the patient's Baseline Mental Status?: Alert AND Oriented Prior to this illness, has anyone described the patient having any of the following behaviors?: Not Applicable Relationship of the informant to the patient:: Spouse Name of Informant: : Bharat Functional Status: Independent Does Patient Currently Receive Any Community Services or Home Care?: None Equipment Prior to Admission: Other: See Comment(CPAP) SOCIAL: Living Arrangements: Home Financial Resources: RetiredPrimary Contact: Extended Emergency Contact Information Primary Emergency Contact: Bharat Loaiza Address: [address] [place] [address] Relation: Spouse Supportive Patient Contact:: Yes Contact Resources: Family Family Name/Phone: spouse Social Needs Food insecurity Worry: Never true Inability: Never true Resources Needed: No Social Needs Financial resource strain: Not hard at all Social Needs Transportation needs Medical: No Non-medical: No Caregiver AssessmentCaregiver is ready, willing and able to meet the patient's needs as recommended by the inter-professional team:: Yes Does the patient have an acute stroke diagnosis, or has the patient had a stroke during this admission?: No Family Name/Phone: spouse Patient's perception of need for this admission: I had heart surgery Medication Adherance I am convinced of the importance of my prescription medication: 0 - Agree Completely I worry that my prescription medication will do more harm than good to me : 0 - Disagree Completely I feel financially burdened by my [id number]-aszrps expenses for my prescription medication:: 0 - Disagree Completely Risk Score: 0 Patient is categorized as: Low risk < 2 Are you interested in bedside delivery of your medications? Yes Is Patient Psychosocially Complex?: No ASSESSMENT AND PLAN: Medical Needs: Medical Needs: Wound Care - active or potential Psychosocial Needs: Psychosocial Needs: None FREEDOM OF CHOICE EXPLAINED: Ellis of Choice Given: Yes Level of Care Discussed: Home Care Financial Disclosure Provided: Yes Financial Disclosure Comments: patient Provider List: Home Care Provider list within the patient's requested geographic area shared with the patient/family: Yes within: Other: See Comment(exact match) of zip code: [address] Quality and resource use metrics shared with the patient that are relevant to the patient's goals of care and treatment preferences:: Yes Metrics: Potentially Preventable 30-day Post Discharge Readmission Rates POTENTIAL TRANSITION PLANS Home Care;Home OT/PT TCC met with patient at bedside, explained role of CM. Patient lives at home with spouse, he states she will be able to assist minimally during his recovery due to her own health issues but his daughter and friends will be available to assist as needed and he will have transport home. SIGNATURE: Sammie Monzon RN,BSN PATIENT NAME: Jocelyn Loaiza DATE: June 07, 2019 TIME: 12:31 PM PAGER/CONTACT #: [phone] Normal [facility] CBCon 06-07-2019 Erythrocyte distribution width (RBC) [Ratio] 12.7 % Normal 11.5-15.0 [facility] Comment on above: Performed By: #### C BC BMP, MG1 ####[place] [phone] Hematocrit (Bld) [Volume fraction] 38.0 % Low 39.0-51.0 [facility] Comment on above: Performed By: #### C BC, BMP, MG1 ####[place] [phone] Hemoglobin (Bld) [Mass/Vol] 12.8 g/dL Low 13.0-17.0 [facility] Comment on above: Performed By: #### C BC, BMP, MG1 ####[place] [phone] MCH (RBC) [Entitic mass] 30.8 pG Normal 26.0-34.0 [facility] Comment on above: Performed By: #### C BC, BMP, MG1 ####[place] [phone] MCHC (RBC) [Mass/Vol] 33.7 g/dL Normal 30.5-36.0 [facility] Comment on above: Performed By: #### C BC, BMP, MG1 ####[place] [phone] MCV (RBC) [Entitic vol] 91.3 fL Normal 80.0-100.0 [facility] Comment on above: Performed By: #### C BC, BMP, MG1 ####[place] [phone] Platelet mean volume (Bld) [Entitic vol] 9.8 fL Normal 9.0-12.7 [facility] Comment on above: Performed By: #### C BC, BMP, MG1 ####[place] [phone] Platelets (Bld) [#/Vol] 190 10*3/uL Normal 150-400 [facility] Comment on above: Performed By: #### C BRIAN CATES, MG1 ####[id number] [place], [place] [phone] RBC (Bld) [#/Vol] 4.16 10*6/uL Low 4.20-6.00 [facility] Comment on above: Performed By: #### C BRIAN CATES, MG1 ####[id number] [place], [place] [phone] WBC (Bld) [#/Vol] 10.49 10*3/uL Normal 3.70-11.00 [facility] Comment on above: Performed By: #### C BRIAN CATES, MG1 ####[facility] [place], [place] [phone] ECG COMPLETEon 06-07-2019 ECG COMPLETE NAME : STONEY LOAIZA PID : [id number] : 1945 Gender : Male Race : ORD : [id number] Procedure Date : Jun 07 2019 06:19:23 Edit Date : Jun 07 2019 07:51:06 Diagnosis:Atrial-paced rhythm Left anterior fascicular block Borderline ST elevation, anterior leads Abnormal ECG Confirmed by RENITA FARIAS M.D. ([id number]) on 06/07/2019 7:51:06 AM Ventricular Rate : 80 BPM Atrial Rate : 80 BPM P-R Interval : 116 ms QRS Duration : 103 ms Q-T Interval : 356 ms QTC Calculation(Bazett) : 411 ms R [place] : -56 degrees T [place] : 66 degrees Test Reason : POST OP Location : 400 : FVEKG [id number] Overread By : RENITA FARIAS M.D. Edited By : RENITA FARIAS M.D. Referred By : , Acquired by : , Normal [facility] Magnesiumon 06-07-2019 Magnesium [Mass/Vol] 2.0 mg/dL Normal 1.7-2.6 [facility] Comment on above: Performed By: #### C BRIAN CATES, MG1 ####[facility] [place], [place] [phone] NURSING PROGon 06-07-2019 NURSING PROG HNO ID: [id number] Author: Haleigh KarimiRnDonna Bautista RN Service: Nursing Author Type: Registered Nurse Type: Nursing Progress Note Filed: 06/07/2019 6:44 PM Note Text: Nursing Progress Note Patient Name: Jocelyn Loaiza Patient Location: / __ Daily Note: 1830: pt arrived from SICU, Alert and oriented x3, lungs clear diminished on 2L NC, NSR on tele. 500cc nacl bolus infusing. midsternal dressing intact, CT connected to suction, serosang output. Bed alarm on and functioning. Call light within reach This note was completed by: Haleigh Bautista RN [facility] NURSING PROG HNO ID: [id number] Author: Brendan KarimiRn) TIMOTHY López Service: Nursing Author Type: Registered Nurse Type: Nursing Progress Note Filed: 06/07/2019 11:48 AM Note Text: Nursing Progress Note Patient Name: Jocelyn Loaiza Patient Location: SICU/ICU __ Daily Note: 0700 Bedside report received from previous shift RN. 0800 Assessment completed and charted. VSS. Neuro intact. No vasoactive medications. SR. Dr. Turner at bedside and updated Pt. On plan of care. See flowsheets. 1200 Reassessment completed and charted. This note was completed by: Brendan López RN [facility] NURSING PROG HNO ID: [id number] Author: Kenzie KarimiRn) Garland RN Service: ? Author Type: Registered Nurse Type: Nursing Progress Note Filed: 06/07/2019 6:53 AM Note Text: Nursing Progress Note Patient Name: Jocelyn Loaiza Patient [facility] [place] [address] __ Daily Note: 0130: Received report from TIMOTHY Mena. 0200: Patient assessed, see flowsheet. Dr. Hull HS rounding on patient. 0230: Gave 500 LR Bolus and 2g Magnesium IV. 0400: Patient reassessed, see flowsheet. 0650: Dr. Velazquez reviewed EKG. 0700: Report given to TIMOTHY Cardona. This note was completed by: Kenzie Haque RN [facility] PROGRESSon 06-07-2019 PROGRESS HNO ID: [id number] Author: Claudio Storey Service: Critical Care Author Type: Anesthesiologist Type: Progress Notes Filed: 06/07/2019 5:29 PM Note Text: SURGICAL INTENSIVE CARE UNIT PROGRESS NOTE Jocelyn Loaiza [id number] Admit Date: 06/05/2019 11:22 AM Bit Tripoler: Dr. Meidna Surgeon: Dr Turner Operation: CABGx3 ? REASON FOR ICU ADMISSION: Postoperative monitoring and resuscitation ? Assessment AND Plan: Jocelyn Loaiza is a 73 year old male with a h/o HARLEY on CPAP, HTN, HLD, who was admitted for CABGx3. Patient initially had symptoms of chest pain and SOB and was found to have CAD on CT scan and was advised to have a heart cath performed which was done at [facility]. 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 He was admitted on 06/06 for CABGx3. He [...] bailey catheter for accurate monitoring in a critically ill patient ? Infectious Diseases Assessment: No [...] ? Disposition and Activity - Transfer to [facility] ? Care discussed with Attending Dr. Medina at 11:00 on 06/07/2019 ========= = SUBJECTIVE No complaints, pain controlled, no N/V, ambulating, mentating well. MAJOR ISSUES: None VITAL SIGNS Temp: 37.8 ?C (100 ?F) Pulse: 80 BP: 115/60 MAP Non Invasive (Mean Arterial Pressure): 77 CVP: 4 Resp: 25 SpO2: 93 % Not applicable FLUID BALANCE: Intake/Output Summary (Last 24 hours) at 06/07/2019 0757 Last data filed at 06/07/2019 0719 Gross per 24 hour Intake 2991.1 ml Output 3614 ml Net -622.9 ml Current Weight: Weight: 76 kg (167 lb 9.6 oz) Admission Weight: Weight: 76 kg (167 lb 9.6 [...] (TYLENOL) 650 mg ORAL q 4 H PRN - pantoprazole DR 40 mg tab(s) (PROTONIX) 40 mg ORAL DAILY (6 AM) - lactated ringers infusion 75 mL/hr INTRAVENOUS CONTINUOUS - insulin regular human 100 Units in NaCl 0.9% 100 mL iv infusion - NOMOGRAM 0-20 Units/hr INTRAVENOUS CONTINUOUS - insulin lispro injection (rapid acting) (HumaLOG) SUBCUTANEOUS TID w MEALS - dextrose 40 % [...] mg in D5W 250 mL 5-200 mcg/min INTRAVENOUS PRN(NO DISPENSE) - NORepinephrine 16 mg in D5W 250 mL (LEVOPHED) 0.6-20 mcg/min INTRAVENOUS PRN(NO DISPENSE) - aspirin 162 mg chewable tab(s) 162 mg ORAL/FEEDING TUBE DAILY - ondansetron (PF) 4 mg injection (ZOFRAN) 4 mg INTRAVENOUS q 6 H PRN - potassium chloride iv piggyback 20 mEq/100 mL 20 mEq INTRAVENOUS PRN(NO DISPENSE) - potassium chloride iv piggyback 20 mEq/100 mL 20 mEq INTRAVENOUS PRN(NO DISPENSE) - potassium chloride iv piggyback 20 mEq/100 mL 20 mEq INTRAVENOUS PRN(NO DISPENSE) - magnesium sulfate in water 2 g in sterile water 50 ml 2 g INTRAVENOUS PRN(NO DISPENSE) - oxyCODONE IR 5-10 mg tab(s) (ROXICODONE) 5-10 mg ORAL q 4 H PRN - fentaNYL 50 mcg/mL 25 mcg injection (SUBLIMAZE) 25 mcg INTRAVENOUS q 15 MIN PRN - heparin 5,000 Units injection 5,000 Units SUBCUTANEOUS q 12 H - mupirocin 2 % 0.5 g ointment (BACTROBAN) 0.5 g NASAL BID Diagnostic tests reviewed for today's visit: Most recent labs PATIENT CHECKLIST ? Deep vein thrombosis prophylaxis administered? Yes. ? Stress ulcer prophylaxis? Yes. ? HOB elevated 45 degrees? Yes. ? Central line or arterial line present? Yes. Able to D/C: Yes ? Pain addressed? Yes. ? Plan reviewed with assigned RN? Yes. ? Nutrition: Enteral- Yes. TPN- No. PO- Yes. ? Family updated within last 24 hours? No. ? Discharge needs assessed? No. Allen Velazquez MD General Surgery, PGY-2 Pager: [phone] (Gen Surg Pager) June 07, 2019 7:57 AM [facility] STAFF PHYSICIAN NOTE OF PERSONAL INVOLVEMENT IN CARE I have reviewed the progress note obtained and documented by the resident and I personally participated in the olivares components. I have discussed the case and management of the patient's care. The following comments revise or confirm relevant olivares components of their note. IMPRESSION/PLAN: Patient seen, examined and discussed with resident. Doing well POD 1 s/p CABG x 3. Pain well controlled, off pressors, oxygenating well on NC, tolerating diet, glycemic control, OOB to chair, DVT/GI ppx. OK to transfer to [facility]. CARE COORDINATION: Level II. SIGNATURE: Claudio Medina DO PAGER: [phone] DATE of SERVICE: June 07, 2019 TIME of SERVICE: 5:28 PM Normal [facility] THERAPY NTon 06-07-2019 THERAPY NT HNO ID: [id number] Author: Yumiko (Pt) Asim Service: Physical Therapy Author Type: Physical Therapist Type: Therapy (PT/OT/Speech/Resp) Filed: 06/07/2019 2:38 PM Note Text: Physical Therapy Evaluation SERVICE DATE: 06/07/2019 SERVICE TIME: 1400 to 1423 ROOM: [place] [address] Recommended Discharge Disposition: Home PT Anticipated Discharge Needs: Physical Assist at Home;Equipment Physical Assist at Home for: Cleaning;Laundry;Trans portation;Shopping PT Recommendations to Nursing: Ambulate with device;In halls;With assist of 1 person Device: Wheeled Walker PT 6 Clicks Score: 18 Precautions/Activity Restrictions: Fall Risk;Lines/Tubes/Drain s;Cardiac;Sternal Precaution/Activity Restriction Comments: mobilize Isolation Type: None ASSESSMENT : Patient's impairments as related to Physical Therapy include decreased strength, impaired balance and trunk control, and impaired safety with functional mobility. Pt required close monitoring of vital signs with activity due to potential fluctuations with activity. Pt requires skilled PT services to address functional mobility progression and dosing, and balance training for safety to decrease risk of falls in order to improve safety and independence with functional mobility. Patient would benefit from home PT to progress strength, endurance, and safe functional mobility. Patient has adequate support and social structure for reasonably safe discharge home at current level. Patient Disposition at Start of Session: OOB in Chair Patient Disposition at End of Session: Supine in Bed;Call Martinez in Reach Tolerated Full Session Physical Therapy [...] 3(and PRN visit) Current admission Treatment Interventions: Strengthening;Function al Mobility Training;Balance Training Plan of Care developed with: Patient TREATMENT INTERVENTIONS: Therapy Diagnosis: Reduced mobility-other Interventions Provided: Evaluation;Gait Training (58722) $ Evaluation-Moderate (50387) Billed Units: 1 unit Gait Training (17324) Treatment Minutes: 8 1 unit Skilled Intervention(s): Instruction in sit to stand technique with proper hand placement and body positioning at edge of bed/chair, Instruction in stand to sit technique with LE's touching chair/bed and reaching back for surface, Instruction in sequencing, gait pattern, Instruction in correction of gait deviations, Instruction in use of equipment, cues for sequence and pattern and Vital signs were monitored by PT. Pt was on room air at beginning of PT session. With amb, O2 saturation decreased to 86% with a questionable historian. Pt [...] Level Comments: Per pt, Ind ADLs, IADLs, drives, amb Ind. OBJECTIVE: CURRENT FUNCTIONAL STATUS: Current Functional Mobility Assist Level Additional Information Rolling Supine to Sit Sit to Supine Minimal Assistance Scooting Sit to Stand Contact Guard Assistance Stand to Sit Contact Guard Assistance Bed to Chair Toilet/Commode Gait Contact Guard Assistance Gait Device: Wheeled Walker Gait Distance (feet): 100 Stairs Curb Step Car Transfer General Gait Deviations: Wide base of support;Step length decreased;Alice decreased(O2 sat 86% on RA. 2 L of O2 applied after amb.) Balance: Static Standing;Dynamic Standing Static Standing Balance: Fair Able to stand unsupported without UE support and without LOB for 1 - 2 min Dynamic Standing Balance: Fair Stand independently unsupported, weight shift, and reach ipsilaterally, LOB when crossing midline JH-HLM: 7: Walk 25 feet or more Please see discipline specific clinical documentation flowsheet for complete details for this therapy evaluation/treatment. SIGNATURE: Yumiko Dailey PT PATIENT NAME: Jocelyn Loaiza DATE: June 07, 2019 TIME: 2:36 PM Normal [facility] THERAPY NT HNO ID: [id number] Author: Crystal Mello Service: Occupational Therapy Author Type: Occupational Therapist Type: Therapy (PT/OT/Speech/Resp) Filed: 06/07/2019 8:57 AM Note Text: Occupational Therapy Evaluation SERVICE DATE: 06/07/2019 SERVICE TIME: 744 to 807 ROOM: [place] [address] Recommended Discharge Disposition: Home OT Anticipated Discharge Needs: Physical Assist at Home;Equipment Physical Assist at Home for: Cleaning;Laundry;Trans portation;Shopping Recommended Discharge Equipment: To Be Determined OT Recommendations to Nursing: ADL?s in chair;With assist of 1 person OT 6 Clicks Score: 15 Precautions/Activity Restrictions: Fall Risk;Lines/Tubes/Drain s;Cardiac;Sternal Precaution/Activity Restriction Comments: mobilize Isolation Type: None ASSESSMENT: Pt presents with impaired self care task performance, decreased functional mobility, decreased strength/endurance, decreased safety. Patient would benefit from skilled OT services to increase activity tolerance, independence and safety with ADL performance, instruction of energy conservation techniques, provide cognitive strategies, increase safety, and improve balance during functional mobility tasks. Patient may benefit from Home Occupational Therapy to continue to progress functional mobility and ADL skills. Patient has adequate support and social structure for reasonably safe discharge home at current level. Patient requires continued monitoring of vital signs due to potential fluctuations with activity, functional mobility, and ADL's. Therapy will instruct/educate the patient regarding safe dosing of activity. Patient Disposition at Start of Session: OOB in Chair;Call Martinez in Reach;Chair Alarm Patient Disposition at End of Session: Supine in Bed;Call Martinez in Reach;Nursing Personnel Present Tolerated Full Session Occupational Therapy Problem List: Safety Deficits;Impaired Self Care;Decreased Activity Tolerance;Functional Mobility Impairment Patient /Caregiver Goals: Go Home Goals for [...] admission Treatment Interventions: Education;Self Care / Home Management;Energy Conservation Training;Functional Mobility Training Plan of Care developed with: Patient TREATMENT INTERVENTIONS: Therapy Diagnosis: Reduced mobility-other;Decreas ed activities of daily living (ADL) Interventions Provided: Evaluation;Self Shelter Management (77688) $ Evaluation-Moderate (66700) Billed Units: 1 unit Self Shelter Management (14504) Treatment Minutes: 8 1 unit Skilled Intervention(s): Education in sternal precautions relating to ADLs and IADLs with patient verbalizing understanding. Pt requires min verbal cues to maintain during session and would benefit from further review and reinforcement. Min cues required for log roll technique with max assist required to return to bed. OT provides pt with handout reviewing sternal precautions and log roll technique to maintain precautions during bed mobility. Pt verbalizes understanding. Vitals monitored and remaining stable throughout session. [...] Level Comments: Per pt, Ind ADLs, IADLs, drives, amb Ind. OBJECTIVE: Cognition/Communicatio n Deficits Responsiveness: Alert Follows Commands: 3-step Commands [...] Assist Please see discipline specific clinical documentation flowsheet for complete details for this therapy evaluation/treatment. SIGNATURE: NANCY Warren/Edith PATIENT NAME: Jocelyn Loaiza DATE: June 07, 2019 TIME: 8:55 AM Normal [facility] XR CHEST 1V FRONTAL PORTon 0 06-07-2019 XR CHEST 1V FRONTAL PORT * * *Final Report* * * DATE OF EXAM: Jun 07 2019 6:58AM FVX 5376 - XR CHEST 1V FRONTAL PORT / PROCEDURE REASON: Post-operative / post-procedure assessment, asymptomatic * * * * Physician Interpretation * * * * EXAMINATION: CHEST RADIOGRAPH (PORTABLE SINGLE VIEW AP) Exam Date/Time: 06/07/2019 6:58 AM CLINICAL HISTORY: Post-operative / post-procedure assessment, asymptomatic MQ: XCPR_5 Comparison: Chest x-ray 06/06/2019 RESULT: Lines, tubes, and devices: Right-sided [place]-Gracie catheter. Tip appears to be in the inferior right pulmonary artery. Left-sided chest tube. Mediastinal drain. Sternotomy wires. Lungs and pleura: No pneumothorax. Hazy opacities in the lung bases bilaterally, right greater left. No large pleural effusions. Cardiomediastinal silhouette: Cardiomegaly. Other: . IMPRESSION: 1. Right-sided [place]-Gracie catheter. Tip appears to be in the inferior right pulmonary artery. 2. Hazy atelectasis/infiltrate s in lung bases bilaterally, right greater than left. Mica Paster: PSCB Transcribe Date/Time: Jun 07 2019 7:07A Dictated by : GT WATSON MD This examination was interpreted and the report reviewed and electronically signed by: GT WATSON MD on Jun 07 2019 7:09AM EST [id number] [facility] HNO ID: [id number] Author: Bryon Tompkins (Rt) Service: Radiology Author Type: Optimization Engineer Type: Allied Health Filed: 06/06/2019 3:23 PM Note Text: Radiology Service Progress Note PATIENT NAME: Jocelyn Loaiza DATE OF SERVICE: June 06, 2019 TIME: 3:23 PM PATIENT IDENTITY VERIFICATION COMPLETED USING TWO (2) IDENTIFIERS: Name and Date of confirmed by identification band and Name and Date of obtained from a relative, guardian or prior caregiver.. PATIENT GENDER DATA: Male PATIENT RELEVANT IMPLANT DATA REVIEWED: Not Applicable RADIOLOGY DEPARTMENT: General X-ray: Exam(s) Completed: Chest X-Ray PERIPHERAL IV DATA: Not applicable SIGNED BY: RT Turner June 06, 2019 3:23 PM [facility] HNO ID: [id number] Author: Zee Price (Mgr) Service: Cardiac Rehab Author Type: Educator Type: Allied Health Filed: 06/06/2019 6:46 AM Note Text: [...] Assistive Device: IV Pole Signature: Trent Dunn Pager: [phone] Date: June 06, 2019 Time: 6:45 AM [facility] ANES PRE-OPon 06-06-2019 ANES PRE-OP HNO ID: [id number] Author: Bebo Barboza Service: ? Author Type: Anesthesiologist Type: Anesthesia Preprocedure Evaluation Filed: 06/06/2019 7:40 AM Note Text: ANESTHESIOLOGY DAY OF SURGERY NOTE : 1945 Procedure(s) (LRB): BYPASS GRAFT ARTERY CORONARY ON-PUMP SINGLE CORONARY ARTERIAL GRAFT (N/A) Surgeon(s): Nj Turner Estimated body [...] Monitoring plan: MARK, Invasive hemodynamic monitoring and Standard ASA. Postoperative analgesic plan: parenteral or oral opioids and multimodal analgesia. Anesthetic Risks, Benefits, Alternatives, Personnel Discussed. Consent obtained from: patient. Patient / Surrogate agrees to blood products: yes NPO Status: adequate. Significant changes in the patient condition since the History and Physical, not otherwise documented in primary service progress note: no. Potential Anesthesia issues that may suggest increased risk of complications or contractions to planned procedure: potential difficult intubation. I have interviewed and examined the patient. I have reviewed the medical record and/or the pre-anesthesia evaluation, pertinent labs, and test results. This contains updated information obtained within 48 hours of Surgery/Procedure. SIGNATURE: Bebo Barboza MD PATIENT NAME: Jocelyn Loaiza DATE: June 06, 2019 TIME: 7:39 AM CSN: [id number] [facility] APTTon 06-06-2019 aPTT Coag (Bld) [Time] 30.3 s Normal 23.0-32.4 [facility] Comment on above: Result Comment: Unfr actionated Heparin Therapeutic Ranges: Standard Heparin Nomogram: 53 to 78 seconds (anti-Xa level of 0.3 to 0.7 U/ml) Low Dose/ACS Nomogram: 49 to 67 seconds (anti-Xa level of 0.2 to 0.5 U/ml) Stroke Treatment Nomogram: 49 to 67 seconds (anti-Xa level of 0.2 to 0.5 U/ml) Note: The APTT therapeutic range has been determined for the current lot of laboratory APTT reagent in use throughout the [facility]. Performed By: #### C BC, PT, PTT, BMP, MG1 ####[address] [phone] Basic Metabolic Panlon 06-06 Anion gap [Moles/Vol] 10 mmol/L Normal 9-18 [facility] Comment on above: Performed By: #### C BCDIF, BMP, MG1 ####[address] [phone] Calcium [Mass/Vol] 7.9 mg/dL Low 8.5-10.5 [facility] Comment on above: Performed By: #### C BCDIF, BMP, MG1 ####[address] [phone] Chloride [Moles/Vol] 109 mmol/L Normal 98-110 [facility] Comment on above: Performed By: #### C BCDIF, BMP, MG1 ####[address] [phone] CO2 [Moles/Vol] 21 mmol/L Low 23-32 [facility] Comment on above: Performed By: #### C BCDIF, BMP, MG1 ####[place] [phone] Creatinine [Mass/Vol] 0.74 mg/dL Normal 0.70-1.40 [facility] Comment on above: Performed By: #### C BCDIF, BMP, MG1 ####[place] [phone] eGFR- Amer. >60 Normal >60 [facility] Comment on above: Performed By: #### C BCDIF, BMP, MG1 ####[place] [phone] GFR/1.73 sq M predicted among non-blacks MDRD (S/P/Bld) [Vol rate/Area] mL/min/{1.73_m2} Normal >60 [facility] Comment on above: Performed By: #### C BCDIF, BMP, MG1 ####[place] [phone] Glucose [Mass/Vol] 164 mg/dL High 65-100 [facility] Comment on above: Performed By: #### C BCDIF, BMP, MG1 ####[place] [phone] Potassium [Moles/Vol] 4.5 mmol/L Normal 3.5-5.0 [facility] Comment on above: Performed By: #### C BCDIF, BMP, MG1 ####[place] [phone] Sodium [Moles/Vol] 140 mmol/L Normal 135-146 [facility] Comment on above: Performed By: #### C BCDIF, BMP, MG1 ####[place] [phone] Urea nitrogen [Mass/Vol] 12 mg/dL Normal 10-25 [facility] Comment on above: Performed By: #### C BCDIF, BMP, MG1 ####[place] [phone] Anion gap [Moles/Vol] 9 mmol/L Normal 9-18 [facility] Comment on above: Performed By: #### C BC, PT, PTT, BMP, MG1 ####[place] [phone] Calcium [Mass/Vol] 7.5 mg/dL Low 8.5-10.5 [facility] Comment on above: Result Comment: Revi ewed Performed By: #### C BC, PT, PTT, BMP, MG1 ####[place] [phone] Chloride [Moles/Vol] 110 mmol/L Normal 98-110 [facility] Comment on above: Performed By: #### C BC, PT, PTT, BMP, MG1 ####[place] [phone] CO2 [Moles/Vol] 22 mmol/L Low 23-32 [facility] Comment on above: Performed By: #### C BC, PT, PTT, BMP, MG1 ####[place] [phone] Creatinine [Mass/Vol] 0.71 mg/dL Normal 0.70-1.40 [facility] Comment on above: Performed By: #### C BC, PT, PTT, BMP, MG1 ####[place] [phone] eGFR- Amer. >60 Normal >60 [facility] Comment on above: Performed By: #### C BC, PT, PTT, BMP, MG1 ####[place] [phone] GFR/1.73 sq M predicted among non-blacks MDRD (S/P/Bld) [Vol rate/Area] mL/min/{1.73_m2} Normal >60 [facility] Comment on above: Performed By: #### C BC, PT, PTT, BMP, MG1 ####[place] [phone] Glucose [Mass/Vol] 110 mg/dL High 65-100 [facility] Comment on above: Performed By: #### C BC, PT, PTT, BMP, MG1 ####[place] [phone] Potassium [Moles/Vol] 4.6 mmol/L Normal 3.5-5.0 [facility] Comment on above: Performed By: #### C BC, PT, PTT, BMP, MG1 ####[place] [phone] Sodium [Moles/Vol] 141 mmol/L Normal 135-146 [facility] Comment on above: Performed By: #### C BC, PT, PTT, BMP, MG1 ####[place] [phone] Urea nitrogen [Mass/Vol] 12 mg/dL Normal 10-25 [facility] Comment on above: Performed By: #### C BC, PT, PTT, BMP, MG1 ####[place] [phone] CBCon 06-06-2019 Erythrocyte distribution width (RBC) [Ratio] 12.5 % Normal 11.5-15.0 [facility] Comment on above: Performed By: #### C BC, PT, PTT, BMP, MG1 ####[place] [phone] Hematocrit (Bld) [Volume fraction] 39.4 % Normal 39.0-51.0 [facility] Comment on above: Performed By: #### C BC, PT, PTT, BMP, MG1 ####[place] [phone] Hemoglobin (Bld) [Mass/Vol] 13.1 g/dL Normal 13.0-17.0 [facility] Comment on above: Performed By: #### C BC, PT, PTT, BMP, MG1 ####[place] [phone] MCH (RBC) [Entitic mass] 30.5 pG Normal 26.0-34.0 [facility] Comment on above: Performed By: #### C BC, PT, PTT, BMP, MG1 ####[place] [phone] MCHC (RBC) [Mass/Vol] 33.2 g/dL Normal 30.5-36.0 [facility] Comment on above: Performed By: #### C BC, PT, PTT, BMP, MG1 ####[place] [phone] MCV (RBC) [Entitic vol] 91.6 fL Normal 80.0-100.0 [facility] Comment on above: Performed By: #### C BC, PT, PTT, BMP, MG1 ####[place] [phone] Platelet mean volume (Bld) [Entitic vol] 9.4 fL Normal 9.0-12.7 [facility] Comment on above: Performed By: #### C BC, PT, PTT, BMP, MG1 ####[place] [phone] Platelets (Bld) [#/Vol] 166 10*3/uL Normal 150-400 [facility] Comment on above: Performed By: #### C BC, PT, PTT, BMP, MG1 ####[place] [phone] RBC (Bld) [#/Vol] 4.30 10*6/uL Normal 4.20-6.00 [facility] Comment on above: Performed By: #### C BC, PT, PTT, BMP, MG1 ####[place] [phone] WBC (Bld) [#/Vol] 15.85 10*3/uL High 3.70-11.00 [facility] Comment on above: Performed By: #### C BC, PT, PTT, BMP, MG1 ####[place] [phone] Erythrocyte distribution width (RBC) [Ratio] 12.6 % Normal 11.5-15.0 [facility] Comment on above: Performed By: #### C BC ####[place] [phone] Hematocrit (Bld) [Volume fraction] 49.1 % Normal 39.0-51.0 [facility] Comment on above: Performed By: #### C BC ####[place] [phone] Hemoglobin (Bld) [Mass/Vol] 16.6 g/dL Normal 13.0-17.0 [facility] Comment on above: Performed By: #### C BC ####[place] [phone] MCH (RBC) [Entitic mass] 31.1 pG Normal 26.0-34.0 [facility] Comment on above: Performed By: #### C BC ####[place] [phone] MCHC (RBC) [Mass/Vol] 33.8 g/dL Normal 30.5-36.0 [facility] Comment on above: Performed By: #### C BC ####[place] [phone] MCV (RBC) [Entitic vol] 91.9 fL Normal 80.0-100.0 [facility] Comment on above: Performed By: #### C BC ####[place] [phone] Platelet mean volume (Bld) [Entitic vol] 10.0 fL Normal 9.0-12.7 [facility] Comment on above: Performed By: #### C BC ####[place] [phone] Platelets (Bld) [#/Vol] 281 10*3/uL Normal 150-400 [facility] Comment on above: Performed By: #### C BC ####[place] [phone] RBC (Bld) [#/Vol] 5.34 10*6/uL Normal 4.20-6.00 [facility] Comment on above: Performed By: #### C BC ####[phone] WBC (Bld) [#/Vol] 7.86 10*3/uL Normal 3.70-11.00 [facility] Comment on above: Performed By: #### C BC ####[place] [phone] CBC and Differentialon 06-06 Abs Baso <0.03 Normal <0.11 [facility] Comment on above: Performed By: #### C BCDIF, BMP, MG1 ####[phone] Abs Mccreary 1.03 k/uL High <0.87 [facility] Comment on above: Performed By: #### C BCDIF, BMP, MG1 ####[place] [phone] Abs Neut 13.90 k/uL High 1.45-7.50 [facility] Comment on above: Performed By: #### C BCDIF, BMP, MG1 ####[place] [phone] Basophils/100 WBC (Bld) 0.1 % Normal [facility] Comment on above: Performed By: #### C BCDIF, BMP, MG1 ####[place] [phone] DTYPE Auto Diff Normal [facility] Comment on above: Performed By: #### C BCDIF, BMP, MG1 ####[place] [phone] Eosinophils (Bld) [#/Vol] 10*3/uL Normal <0.46 [facility] Comment on above: Performed By: #### C BCDIF, BMP, MG1 ####[place] [phone] Eosinophils/100 WBC (Bld) 0.1 % Normal [facility] Comment on above: Performed By: #### C BCDIF, BMP, MG1 ####[place] [phone] Erythrocyte distribution width (RBC) [Ratio] 12.3 % Normal 11.5-15.0 [facility] Comment on above: Performed By: #### C BCDIF, BMP, MG1 ####[place] [phone] Hematocrit (Bld) [Volume fraction] 41.3 % Normal 39.0-51.0 [facility] Comment on above: Performed By: #### C BCDIF, BMP, MG1 ####[place] [phone] Hemoglobin (Bld) [Mass/Vol] 13.8 g/dL Normal 13.0-17.0 [facility] Comment on above: Performed By: #### C BCDIF, BMP, MG1 ####[place] [phone] Lymphocytes (Bld) [#/Vol] 1.06 10*3/uL Normal 1.00-4.00 [facility] Comment on above: Performed By: #### C BCDIF, BMP, MG1 ####[place] [phone] Lymphocytes/100 WBC (Bld) 6.6 % Normal [facility] Comment on above: Performed By: #### C BCDIF, BMP, MG1 ####[place] [phone] MCH (RBC) [Entitic mass] 30.9 pG Normal 26.0-34.0 [facility] Comment on above: Performed By: #### C BCDIF BMP, MG1 ####[place] [phone] MCHC (RBC) [Mass/Vol] 33.4 g/dL Normal 30.5-36.0 [facility] Comment on above: Performed By: #### C BCDIF BMP, MG1 ####[place] [phone] MCV (RBC) [Entitic vol] 92.6 fL Normal 80.0-100.0 [facility] Comment on above: Performed By: #### C BCDIF BMP, MG1 ####[place] [phone] Monocytes/100 WBC (Bld) 6.4 % Normal [facility] Comment on above: Performed By: #### C BCDIF BMP, MG1 ####[place] [phone] Neutrophils/100 WBC (Bld) 86.8 % Normal [facility] Comment on above: Performed By: #### C BCDIF, BMP, MG1 ####[place] [phone] Platelet mean volume (Bld) [Entitic vol] 9.8 fL Normal 9.0-12.7 [facility] Comment on above: Performed By: #### C BCDIF, BMP, MG1 ####[place] [phone] Platelets (Bld) [#/Vol] 210 10*3/uL Normal 150-400 [facility] Comment on above: Performed By: #### C BCDIF, BMP, MG1 ####[address] [phone] RBC (Bld) [#/Vol] 4.46 10*6/uL Normal 4.20-6.00 [facility] Comment on above: Performed By: #### C BCDIF, BMP, MG1 ####[facility] [place], [place] [phone] WBC (Bld) [#/Vol] 16.02 10*3/uL High 3.70-11.00 [facility] Comment on above: Performed By: #### C BCDIF, BMP, MG1 ####[facility] [place], [place] [phone] Confirm Blood Typeon 020 ABO/RH(D) Positive Normal [facility] Comment on above: Performed By: #### C ONABO ####[facility] [place], [place] [phone] HISTORY PHYSICALon 0 HISTORY PHYSICAL HNO ID: [id number] Author: Claudio Storey Service: Critical Care Author Type: Anesthesiologist Type: HANDP Filed: 06/06/2019 6:27 PM Note Text: Surgical Intensive Care Unit History and Physical Jocelyn Loaiza [id number] Admit Date: 06/05/2019 11:22 AM Bit Tripoler: Dr. Medina Surgeon: Dr Turner Operation: CABGx3 REASON FOR ICU ADMISSION: Postoperative monitoring and resuscitation Assessment AND Plan: Jocelyn Loazia is a 73 year old male with a h/o HARLEY on CPAP, HTN, HLD, who was admitted for CABGx3. Patient initially had symptoms of chest pain and SOB and was found to have CAD on CT scan and was advised to have a heart cath performed which was done at [facility]. 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 He was admitted on 06/06 for CABGx3. He [...] bailey catheter for accurate monitoring in a critically ill patient Infectious Diseases Assessment: No signs [...] ill, and at high risk of rapid decompensation - Continue care in SICU Care discussed with Attending Dr. Medina at 16:00 on 06/06/2019 ========= ====== History: Jocelyn Loaiza is a 73 year old male with a h/o HARLEY on CPAP, HTN, HLD, who was admitted for CABGx3. Patient initially had symptoms of chest pain and SOB and was found to have CAD on CT scan and was advised to have a heart cath performed which was done at [facility]. 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 He was admitted on 06/06 for CABGx3. He was sent to the SICU for monitoring. PAST MEDICAL HISTORY PAST MEDICAL HISTORY Diagnosis Date - Dyslipidemia - Dyspnea on exertion - Former smoker, stopped smoking in distant past - HTN (hypertension) - Kidney stones - HARLEY on CPAP - Rosacea PAST SURGICAL HISTORY PAST SURGICAL HISTORY Procedure Laterality Date - COLONOSCOP W/ OR W/O [facility] SPEC 02/15/2019 Colonoscopy - COLONOSCOPY 2006 [...] 76 kg (167 lb 9.6 oz) Admission Weight: Weight: 76 kg (167 lb 9.6 [...] human iv bolus 0.5-7 Units 0.5-7 Units INTRAVENOUS ONCE - insulin regular human 100 Units in NaCl 0.9% 100 mL iv infusion - NOMOGRAM 0-20 Units/hr INTRAVENOUS CONTINUOUS - insulin lispro injection (rapid acting) (HumaLOG) SUBCUTANEOUS TID w MEALS - dextrose 40 % [...] mg in D5W 250 mL 5-200 mcg/min INTRAVENOUS PRN(NO DISPENSE) - NORepinephrine 16 mg in D5W 250 mL (LEVOPHED) 0.6-20 mcg/min INTRAVENOUS PRN(NO DISPENSE) - aspirin 162 mg chewable tab(s) 162 mg ORAL/FEEDING TUBE DAILY - ceFAZolin iv piggyback 1 g in D5W (iso-osmotic) 50 mL (ANCEF) 1 g INTRAVENOUS q 8 H - ondansetron (PF) 4 mg injection (ZOFRAN) 4 mg INTRAVENOUS q 6 H PRN - potassium chloride iv piggyback 20 mEq/100 mL 20 mEq INTRAVENOUS PRN(NO DISPENSE) - potassium chloride iv piggyback 20 mEq/100 mL 20 mEq INTRAVENOUS PRN(NO DISPENSE) - potassium chloride iv piggyback 20 mEq/100 mL 20 mEq INTRAVENOUS PRN(NO DISPENSE) - magnesium sulfate in water 2 g in sterile water 50 ml 2 g INTRAVENOUS PRN(NO DISPENSE) - oxyCODONE IR 5-10 mg tab(s) (ROXICODONE) 5-10 mg ORAL q 4 H PRN - fentaNYL 50 mcg/mL 25 mcg injection (SUBLIMAZE) 25 mcg INTRAVENOUS q 15 MIN PRN - mupirocin 2 % 0.5 g ointment (BACTROBAN) 0.5 g NASAL BID Patient Lines Assessed A-Line: Site: Left radial, Day #: 0 RECENT LABS Recent Labs 06/06/19 1455 06/06/19 0604 06/06/19 0203 06/05/19 1634 [...] Allen Velazquez MD General Surgery, PGY-2 Pager: [phone] (Gen Surg Pager) June 06, 2019 3:20 PM [facility] STAFF PHYSICIAN NOTE OF PERSONAL INVOLVEMENT IN CARE I have reviewed the progress note obtained and documented by the resident and I personally participated in the olivares components. I have discussed the case and management of the patient's care. The following comments revise or confirm relevant olivares components of their note. IMPRESSION/PLAN: Patient seen, examined and discussed with resident. S/P CABG x 3, arrived to ICU intubated. Sedation weaned, patient extubated. Hemodynamic monitoring and support as needed, advance diet as tolerated, pain control, glycemic control, DVT/GI PPX. Otherwise, as annotated above. CARE COORDINATION: Critical Care: I personally spent 36 minutes of critical care time involved in the care of this patient. SIGNATURE: Claudio Medina DO PAGER: [phone] DATE of SERVICE: June 06, 2019 TIME of SERVICE: 6:26 PM Normal [facility] Magnesiumon 06-06-2019 Magnesium [Mass/Vol] 1.7 mg/dL Normal 1.7-2.6 [facility] Comment on above: Performed By: #### C BCDIF, BMP, MG1 ####[address] [phone] Magnesium [Mass/Vol] 2.1 mg/dL Normal 1.7-2.6 [facility] Comment on above: Performed By: #### C BC, PT, PTT, BMP, MG1 ####[address] [phone] NURSING PROGon 06-06-2019 NURSING PROG HNO ID: [id number] Author: Trina KarimiRn) TIMOTHY Madrigal Service: Nursing Author Type: Registered Nurse Type: Nursing Progress Note Filed: 06/07/2019 12:27 AM Note Text: Nursing Progress Note Patient Name: Jocelyn Loaiza Patient Location: [address] __ Daily Note: 1450: patient up from [place] - SICU team at bedside 1455: bear hugger placed on patient for temp of 34.1 C 1500: patient assessed, see flowsheet 1505: patient given 1 L LR bolus per Dr. Medina 1530: propofol turned off per Dr. Medina, patient awake, following commands 1539: RT at bedside beginning CPAP 1540: patient complaining of pain, PRN fent given 1548: Dr. Medina at bedside to assess readiness for extubation 1553: patient extubated, on 1 L NC 1640: Dr. Medina made aware that pt is jaylen down to the 50's with the pacer set at a rate of 40. Per Dr. Medina, ok to turn rate up to 80 1650: patient passed swallow eval 2000: patient assessed, see flowsheet 2130: RT at bedside placing patient on home CPAP 2145: patient stating he feels as though his CPAP is making him take too large of breaths that hurt his incision, SBP 180 at this time - blood pressure and pain stabilized once CPAP was removed, will keep patient on NC for the evening 0000: patient reassessed, see flowsheet This note was completed by: Trina Madrigal RN [facility] NURSING PROG HNO ID: [id number] Author: Wendy KarimiRn) TIMOTHY Rizo Service: Nursing Author Type: Registered Nurse Type: Nursing Progress Note Filed: 06/06/2019 7:13 AM Note Text: PATIENT EDUCATION TOPIC: PROCEDURE / SURGERY: Pre-op Teaching: Protocols PATIENT NAME: Jocelyn Loaiza PATIENT LOCATION: [facility] OR POOL/[facility] OR POOL READINESS TO LEARN COGNITIVE ABILITY: Alert and oriented MOTIVATION TO LEARN: Interested FAMILY SUPPORT: Unable to assess - Family not present INSTRUCTION PROVIDED TO: Patient PATIENT LEARNS BEST BY: Individual Instruction FACTORS AFFECTING LEARNING: None PHYSICAL LIMITATIONS AFFECTING LEARNING: None LEARNING RESPONSE DIAGNOSIS: ADULT well PATIENT/FAMILY RESPONSE: Verbalizes understanding of: PRE-OPERATIVE INSTRUCTIONS-Correct action to take to follow pre-operative instructions METHOD OF INSTRUCTION: Individual instruction FOLLOW-UP PLAN: Patient instructed to call with any further issues INSTRUCTIONAL AIDS USED: NA SUPPLEMENTAL MATERIAL PROVIDED TO PATIENT: None REFERRAL (RECOMMENDATION): None Electronically Signed By: Wendy Rizo RN [facility] NURSING PROG HNO ID: [id number] Author: Fernanda Way (Rn) TIMOTHY Guzman Service: ? Author Type: Registered Nurse Type: Nursing Progress Note Filed: 06/06/2019 6:47 AM Note Text: Nursing Progress Note Patient Name: Jocelyn Loaiza Patient Location: [id number][id number] __ Daily Note: Assumed care of pt at [id number]: Pt alert and resting in bed. Pt denies cp or pressure. Right radial dressing dry and intact, no bleeding or hematoma noted. IVF and IV heparin infusing as ordered without any issues. Pt SB in the 40's on telemetry. Pt NPO after midnight. Pt denies any needs at this time. Call light in reach, safety maintained. Will continue to monitor. 0130- pt resting, [...] called to [facility] [place] for pt's surgery this AM. Safety maintained. Pt left unit in bed with family and all his belongings. This note was completed by: Fernanda Guzman RN Normal [facility] OPERATIVE NOon 06-06-2019 OPERATIVE NO HNO ID: [id number] Author: Nj Turner Service: Cardiac Surgery Author Type: Physician Type: Operative Report Filed: 06/08/2019 10:01 AM Note Text: [facility] - Operative Report JOCELYN LOAIZA : 1945 AGE: 73. SEX: M PATIENT TYPE: I HOSP SVC: CARD LOCATION: [facility] ATTENDING PHYSICIAN: Nj Turner M.D. CSN NUMBER: [id number] DATE OF SURGERY/PROCEDURE: 06/06/2019 INCISION/PROCEDURE START TIME: 9:21 AM INCISION CLOSE/PROCEDURE END TIME: 2:22 PM PREOPERATIVE DIAGNOSIS: Coronary artery disease. POSTOPERATIVE DIAGNOSIS: Coronary artery disease. SURGEON: Nj Turner M.D. FENCE MAKING MACHINE OPERATOR: Feliberto Guaman and Liliya Capone. SURGERY/PROCEDURE: Coronary artery bypass grafting x2 with left internal mammary artery to the left anterior descending, saphenous venous bypasses to the first obtuse marginal and the posterior descending artery. ANESTHESIA: General ANESTHESIOLOGIST: Dr. Bebo Barboza. PERFUSION: Effie Fitzpatrick. HISTORY: This 73-year-old patient was admitted to [facility] yesterday with unstable angina and underwent coronary angiography that showed severe triple-vessel coronary artery disease for which he was advised to undergo urgent coronary artery bypass grafting. The risks and benefits of this were discussed with him and he consented to proceed with surgery. DESCRIPTION OF PROCEDURE: The patient was prepped and draped in the usual fashion after orotracheal intubation and after right-sided internal jugular [place]-Gracie catheter, and a left-sided radial arterial line had been placed. An intraoperative MARK was done that showed he had good LV function and no valvular abnormality. After prepping and draping, a standard sternotomy was performed. His left internal thoracic artery was dissected as a pedicle conduit and greater saphenous vein was obtained from his left leg through endoscopic dissection. Both were excellent conduits. He was heparinized. The pericardial sac was opened and ascending aortic and 2 stage right atrial cannulation was carried out, and he was put on cardiopulmonary bypass once his ACT became adequate. Aortic cross-clamping was done with a soft padded clamp and cold blood cardioplegia was given through the aortic root to bring about cardiac standstill. The completely occluded posterior descending artery was grafted first. This vessel was about 1.5 to 1.75 mm and was grafted to saphenous vein with 7-0 running Prolene suture. The first obtuse marginal branch was grafted second. This was a large vessel measuring over 2 mm and was grafted to saphenous vein with 7-0 running Prolene suture. The left internal thoracic artery was prepared and anastomosed to the LAD in the middle 3rd, LAD was at least 2-2.5 mm. This anastomosis was done with 7-0 running Prolene suture. The 2 venous proximal anastomoses were done on the crossclamp using 6-0 running Prolene suture and the cross-clamp was removed. He started spontaneous myocardial contractions and was weaned off cardiopulmonary bypass uneventfully on no inotropic support and atrial pacing. The sternum was closed with interrupted steel wires after one mediastinal and one left pleural chest tube had been placed. The subcutaneous tissue and skin were closed in layers. At the end of the procedure, he was atrially paced at a rate of 80. He had a blood pressure 120/70 and PA pressures of 35/10, and a cardiac index of 3. He made excellent urine output throughout. No blood products were used and I was present throughout the procedure. Nj Turner M.D. IG:[id number] /[id number] Normal [facility] PTT,Anticoag Therapyon 06-06 aPTT Coag (Bld) [Time] 49.8 s High 23.0-32.4 [facility] Comment on above: Result Comment: Unfr actionated Heparin Therapeutic Ranges: Standard Heparin Nomogram: 53 to 78 seconds (anti-Xa level of 0.3 to 0.7 U/ml) Low Dose/ACS Nomogram: 49 to 67 seconds (anti-Xa level of 0.2 to 0.5 U/ml) Stroke Treatment Nomogram: 49 to 67 seconds (anti-Xa level of 0.2 to 0.5 U/ml) Note: The APTT therapeutic range has been determined for the current lot of laboratory APTT reagent in use throughout the [facility]. Performed By: #### P TTAC ####[facility] [place], [place] [phone] Protimeon 06-06-2019 PT Coag (PPP) [Time] 1.3 s Normal 0.9-1.3 [facility] Comment on above: Result Comment: Amelia min K Antagonist (VKA) Therapeutic Range: INR 2 to 3 (Target INR of 2.5) Note: For patients treated with VKA drugs, such as warfarin, the [employer] 2012 Guideline recommends a therapeutic INR range of 2 to 3 (target INR of 2.5). This recommendation includes high-risk patients with antiphospholipid syndrome with previous arterial or venous thromboembolism, current-generation mechanical or bioprosthetic aortic heart valve replacement. Note: Patients with mechanical aortic valve replacement and additional risk factors for thromboembolic events (atrial fibrillation, previous thromboembolism, LV dysfunction, hypercoagulable conditions) or an older generation mechanical AVR (i.e., ball in-Cage) or any mechanical MVR should have a INR therapeutic range of 2.5 to 3.5 (target INR of 3). Christelle GH, et al. Chest 2012, 141:7S-47S Ellen RA, et al. JAC 2017, 70: 252-289 Performed By: #### C BC, PT, PTT, BMP, MG1 ####[facility] [place], [place] [phone] PT Coag (PPP) [Time] 13.9 s High 9.7-13.0 [facility] Comment on above: Performed By: #### C BC, PT, PTT, BMP, MG1 ####[facility] [place], [place] [phone] THERAPY NTon 06-06-2019 THERAPY NT HNO ID: [id number] Author: Dafne (Starch And Prosize MixerDonna Sutton RRT Service: Respiratory Therapy Author Type: Registered Resp Therapist Type: Therapy (PT/OT/Speech/Resp) Filed: 06/06/2019 4:18 PM Note Text: RESPIRATORY THERAPY PROGRESS NOTE SERVICE DATE: 06/06/2019 SERVICE TIME: 1553 Patient extubated at 1553 to 1L NC per physician order, following successful CPAP/PSV Trial. SpO2 95-95% (appropriate per RT O2 Protocol), phonation appropriate at time of extubation. No significant events or complications noted. Will continue to monitor the patient and intervene as needed. SIGNATURE: Dafne Sutton RRT PATIENT NAME: Jocelyn Loaiza DATE: June 06, 2019 TIME: 4:16 PM PAGER/CONTACT #: Harjit [facility] XR CHEST 1V FRONTAL PORTon 0 06-06-2019 XR CHEST 1V FRONTAL PORT * * *Final Report* * * DATE OF EXAM: Jun 06 2019 3:09PM FVX [id number] - XR CHEST 1V FRONTAL PORT / PROCEDURE REASON: Post-operative / post-procedure assessment, asymptomatic * * * * Physician Interpretation * * * * EXAMINATION: CHEST RADIOGRAPH (PORTABLE SINGLE VIEW AP) Exam Date/Time: 06/06/2019 3:09 PM CLINICAL HISTORY: Post-operative / post-procedure assessment, asymptomatic MQ: XCPR_5 Comparison: 04/27/2019 RESULT: Lines, tubes, and devices: There is an endotracheal tube, NG tube and a [place] catheter with the [place]Gracie catheter tip in the right descending pulmonary artery. Postoperative large bore chest tubes are present overlying the mediastinum and the periphery of the left lung base. Lungs and pleura: There are post operative left basilar atelectasis otherwise no infiltrate or effusion is seen. Cardiomediastinal silhouette: Stable cardiomediastinal silhouette. Other: . IMPRESSION: Postoperative changes without evidence of an acute cardiopulmonary process Mica Paster: [facility] Transcribe Date/Time: Jun 06 2019 3:23P Dictated by : PEPE FOWLER MD This examination was interpreted and the report reviewed and electronically signed by: PEPE FOWLER MD on Jun 06 2019 3:25PM EST [id number] [facility] Arterial Blood Gas (FOR WEST USE ONLY)on 06-05-2019 Base Excess 1 mmol/L Normal [facility] Comment on above: Result Comment: -3 t o 3 Performed By: #### A BGR ####[facility] [place], [place] [phone] CO2 [Moles/Vol] 25 mmol/L Normal 22.0-28.0 [facility] Comment on above: Performed By: #### A BGR ####[place] [phone] Device Room Air [facility] Comment on above: Performed By: #### A BGR ####[place] [phone] Drawsite Right Brachial Normal [facility] Comment on above: Performed By: #### A BGR ####[place] [phone] HCO3 (Bld) [Moles/Vol] 24 mmol/L Normal 22-26 [facility] Comment on above: Performed By: #### A BGR ####[place] [phone] O2 Administered 21.0 [facility] Comment on above: Performed By: #### A BGR ####[place] [phone] Oxygen (Bld) [Partial pressure] 93 mm Hg Normal 80-100 [facility] Comment on above: Performed By: #### A BGR ####[place] [phone] Oxygen (Bld) [Partial pressure] 97 % Normal 90-98 [facility] Comment on above: Performed By: #### A BGR ####[place] [phone] pCO2 36 mm Hg Normal 35-48 [facility] Comment on above: Performed By: #### A BGR ####[place] [phone] pH (Bld) 7.44 [pH] Normal 7.35-7.45 [facility] Comment on above: Performed By: #### A BGR ####[place] [phone] Basic Metabolic Panlon 06-05 Anion gap [Moles/Vol] 10 mmol/L Normal 9-18 [facility] Comment on above: Performed By: #### B MP, MG1 ####[place] [phone]#### PREALB ####[place] [address] [place] [phone] Calcium [Mass/Vol] 9.5 mg/dL Normal 8.5-10.5 [facility] Comment on above: Performed By: #### B DELROY, MG1 ####[place] [phone]#### PREALB ####[place] [address] [place] [phone] Chloride [Moles/Vol] 105 mmol/L Normal 98-110 [facility] Comment on above: Performed By: #### B DELROY, MG1 ####[address]#### PREALB ####[place] [address] [place] [phone] CO2 [Moles/Vol] 24 mmol/L Normal 23-32 [facility] Comment on above: Performed By: #### Abby POTTS, MG1 ####[address]#### PREALB ####[place] [address] [phone] Creatinine [Mass/Vol] 0.77 mg/dL Normal 0.70-1.40 [facility] Comment on above: Performed By: #### B MP, MG1 ####[place] [phone]#### PREALB ####[place] [address] [address] [place] [phone] eGFR- Amer. >60 Normal >60 [facility] Comment on above: Performed By: #### B MP, MG1 ####[place] [phone]#### PREALB ####[place] [address] [place] [phone] GFR/1.73 sq M predicted among non-blacks MDRD (S/P/Bld) [Vol rate/Area] mL/min/{1.73_m2} Normal >60 [facility] Comment on above: Performed By: #### Abby POTTS, MG1 ####[place] [phone]#### PREALB ####[place] [address] [place] [address] [phone] Glucose [Mass/Vol] 112 mg/dL High 65-100 [facility] Comment on above: Performed By: #### Abby POTTS, MG1 ####[place] [phone]#### PREALB ####[place] [address] [place] [address] [phone] Potassium [Moles/Vol] 4.2 mmol/L Normal 3.5-5.0 [facility] Comment on above: Performed By: #### Abby POTTS, MG1 ####[place] [phone]#### PREALB ####[place] [address] [address] [place] [phone] Sodium [Moles/Vol] 139 mmol/L Normal 135-146 [facility] Comment on above: Performed By: #### Abby POTTS, MG1 ####[place] [phone]#### PREALB ####[facility] [place] [phone] Urea nitrogen [Mass/Vol] 19 mg/dL Normal 10-25 [facility] Comment on above: Performed By: #### B MP, MG1 ####[place] [phone]#### PREALB ####[facility] [address] [place], [place] [phone] CBCon 06-05-2019 Erythrocyte distribution width (RBC) [Ratio] 12.3 % Normal 11.5-15.0 [facility] Comment on above: Performed By: #### C BC, PT, PTTAC #### [place] [phone] Hematocrit (Bld) [Volume fraction] 49.5 % Normal 39.0-51.0 [facility] Comment on above: Performed By: #### C BC, PT, PTTAC #### [place] [phone] Hemoglobin (Bld) [Mass/Vol] 16.6 g/dL Normal 13.0-17.0 [facility] Comment on above: Performed By: #### C BC, PT, PTTAC #### [phone] MCH (RBC) [Entitic mass] 31.3 pG Normal 26.0-34.0 [facility] Comment on above: Performed By: #### C BC, PT, PTTAC #### [phone] MCHC (RBC) [Mass/Vol] 33.5 g/dL Normal 30.5-36.0 [facility] Comment on above: Performed By: #### C BC, PT, PTTAC #### [place] [phone] MCV (RBC) [Entitic vol] 93.4 fL Normal 80.0-100.0 [facility] Comment on above: Performed By: #### C BC, PT, PTTAC #### [place] [phone] Platelet mean volume (Bld) [Entitic vol] 10.0 fL Normal 9.0-12.7 [facility] Comment on above: Performed By: #### C BC, PT, PTTAC #### [place] [phone] Platelets (Bld) [#/Vol] 304 10*3/uL Normal 150-400 [facility] Comment on above: Performed By: #### C BC, PT, PTTAC #### [place] [address] RBC (Bld) [#/Vol] 5.30 10*6/uL Normal 4.20-6.00 [facility] Comment on above: Performed By: #### C BC, PT, PTTAC #### [place] [phone] WBC (Bld) [#/Vol] 7.10 10*3/uL Normal 3.70-11.00 [facility] Comment on above: Performed By: #### C BC, PT, PTTAC #### [place] [address] CONSULTon 06-05-2019 CONSULT HNO ID: [id number] Author: Nj Turner Service: Cardiac Surgery Author Type: Physician Type: Consults Filed: 06/05/2019 5:07 PM Note Text: Cardiac Surgery CONSULT SERVICE DATE: 06/05/2019 SERVICE TIME: 3:01 PM I have reviewed the documentation obtained and documented by the Physician Retail Loan Originator and have reviewed and updated the problem list as appropriate. I have personally performed a face to face assessment of the patient and have personally participated in the olivares components. I spent 50% of the time counseling and discussing operative options The patient needs cabgx3 and the surgery will be scheduled for tomorrow. I spent 25 minutes with the patient. REASON FOR CONSULT: CAD REQUESTING PHYSICIAN: Dr. Galarza PRIMARY CARE PHYSICIAN: Bella Santos MD Subjective CC: SOB Mr. Loaiza is a 73 year old male with pmhx of HTN, HLD,and HARLEY on CPAP who presented to [facility] complaining of worsening dyspnea on exertion over the last several weeks. He ius very active exercising regularly, hiking, and lifting weights. Since symptoms started he has not been able to participate in his exercise routine. He denies chest pain, radiation of pain, palpitations, n/v, or diaphoresis. Patient had CT of the chest which did not show any evidence of PE but did show significant coronary artery calcification. Troponin was negative and no EKG changes were evident. Cardiology was consulted and recommended an elective coronary angiogram that was done today that revealed multivessel CAD for which cardiac surgery was consulted. CATH: ADDITIONAL PROCEDURES bilateral carotid angiogram ? 1- Right carotid: Common: normal Internal: normal External: normal HAZEL: normal MCA: normal ? 2- Left carotid: Common: normal Internal: normal External: normal HAZEL: normal MCA: normal Arch: ? CORONARY ANGIOGRAPHY: LEFT MAIN TRUNK: No Stenosis ? LEFT ANTERIOR DESCENDIN% Stenosis Location: Proximal, Mid, Diffuse, Calcified ? DIAGONAL #1: 60% Stenosis [...] problems with anesthesia in the past, PE, DVT, COPD, asthma, bleeding or clotting disorders, seizures, strokes, vein stripping, gastric ulcers, dysphagia, thyroid or renal disease, DM, or AC use. He is a former 1ppd smoker - quit in 1976 and smoked for 7 years He drinks etoh 2-4 times per month He denies a family history of CAD PAST MEDICAL HISTORY Diagnosis Date - Dyslipidemia - Dyspnea on exertion - Former smoker, stopped smoking in distant past - HTN (hypertension) - Kidney stones - HARLEY on CPAP - Rosacea PAST SURGICAL HISTORY Procedure Laterality Date - COLONOSCOP W/ OR W/O [facility] SPEC 02/15/2019 Colonoscopy - COLONOSCOPY 2006 [...] mg tablet, Take 1 tablet by mouth once daily., Disp: 90 tablet, Rfl: 2, 06/05/2019 at 0630 aspirin, enteric coated (ASPIRIN, ENTERIC COATED) 81 mg EC tablet, Take 81 mg by mouth once daily., Disp: , Rfl: , 06/04/2019 at Unknown time atorvastatin (LIPITOR) 10 mg tablet, Take 10 mg by mouth once daily., Disp: , Rfl: , 06/04/2019 at Unknown time nitroglycerin sublingual (NITROSTAT) 0.4 mg SL tablet, Dissolve 1 tablet under the tongue as needed for Chest Pain. If no pain relief call 911., Disp: 1 Bottle of 25, Rfl: 0, Unknown at prn perflutren lipid microspheres (DEFINITY) 1.1 mg/mL injection (to be provided with echo procedure), Inject 1.3 mL intravenously as directed. Administration Instructions: If no IV access, insert saline lock prior to administering contrast. Discontinue saline lock post exam. If patient has central line or IVAD, may access for administration according to line specific nursing protocol. Once exam is complete, flush line and de-access per line specific nursing protocol. Diluted IV Bolus: Dilute 1.3 ml of Definity with 8.7 ml of preservative-free saline., Disp: 1.3 mL, Rfl: 0, Unknown at Unknown time perflutren lipid microspheres (DEFINITY) 1.1 mg/mL injection (to be provided with echo procedure), Inject 1.3 mL intravenously as directed. Administration Instructions: If no IV access, insert saline lock prior to administering contrast. Discontinue saline lock post exam. If patient has central line or IVAD, may access for administration according to line specific nursing protocol. Once exam [...] lipid microspheres 1.1 mg/mL 1.3 mL injection (DEFINITY) 1.3 mL INTRAVENOUS DIRECTED PRN - heparin iv infusion (LOW DOSE ACS/NOMOGRAM) 25,000 units in NaCl 0.45% 250 mL PREMIX 0-3,000 Units/hr INTRAVENOUS CONTINUOUS And - heparin RATE CHANGE bolus 1,000-4,000 Units for subtherapeutic aptt results 1,000-4,000 Units INTRAVENOUS PRN - [...] Negative for joint pain or swelling, back pain or muscle pain SKIN: Negative for lesions, rash, and itching HEMATOLOGY/LYMPHOLOGY: Negative for prolonged bleeding, bruising easily or swollen nodes ENDOCRINE: Negative for cold or heat intolerance, polyuria, polydipsia and goiter NEURO: No history of headaches, syncope, paralysis, seizures or tremors Objective PHYSICAL EXAM: GENERAL: Alert, no distress, cooperative SKIN: Skin color, texture, turgor normal. No rashes or lesions. NECK: Supple LUNGS: Lungs clear to auscultation, Good diaphragmatic excursion CARDIAC: Normal S1 and S2; no rubs, murmurs, or gallops ABDOMEN: Abdomen soft, non-tender, BS normal, No masses or organomegaly EXTREMITIES: Extremities normal, no deformities, edema, clubbing or skin discoloration. Good capillary refill., No ulcers NEURO: Negative findings: speech normal, mental status intact PULSES: 2+ radial Patient Vitals for the past 24 hrs: BP Temp Temp src Pulse Resp SpO2 Height Weight 06/05/19 1445 ? 36.6 ?C (97.9 ?F) Oral ? 06/05/19 1443 144/81 ? ? (!) 54 17 98 % ? ? 06/05/19 1152 ? 10 95 % ? ? 06/05/19 1135 156/99 36.2 ?C (97.2 ?F) Tympanic (!) 56 ? ? 170.2 cm (5' 7) 76 kg (167 lb 9.6 oz) Body mass index is 26.25 kg/m?. Diagnostic tests reviewed for today's visit: Most recent labs and imaging results. ECHO: MEASUREMENTS: ?Value ?Indexed ? ?Normal Max aortic dimension ? ? 4.1 cm [...] volume ?95 ml (2D biplane) 49.6 ml/m? 34<=EDVi<75 LV end systolic volume ? 32 ml (2D biplane) 16.8 ml/m? Ejection Fraction ?66 % (2D biplane) ? EF > 52 ? FINDINGS: ? LEFT VENTRICLE The left ventricle is normal in size. Left ventricular systolic function is normal. Grade I left ventricular diastolic dysfunction. Mitral annular lateral E/e': 7.4. Mitral annular septal E/e': 11.9. Wall Motion: All scored segments are normal. ? ? RIGHT VENTRICLE The right ventricle is normal in size. Right ventricular systolic function is normal. RV systolic tissue Doppler velocity ?is 14.0 cm/s. Tricuspid annular displacement is 2.8 cm. Estimated right ventricular systolic pressure is not reported due to an insufficient tricuspid regurgitation signal. [...] regurgitation. The pressure half time is 72 msec. The peak mitral E/A ?ratio is 0.76. The average mitral E/e' ratio is 9.6. The mitral flow deceleration ?time is 248 msec. ? TRICUSPID VALVE The tricuspid valve leaflets are structurally normal. There is trace tricuspid valve regurgitation. ? AORTIC VALVE The aortic valve cusps are structurally normal. There is trace aortic valve regurgitation. Tricuspid aortic valve. The peak gradient is 6 mmHg (peak velocity = 126.9 cm/s). ? PULMONIC VALVE The pulmonic valve cusps are structurally normal. There is trace pulmonic valve regurgitation. ? AORTA The visualized aorta is dilated. Measurements - Sinus: 4.0 cm. Sinotubular junction 3.4 cm. Mid ascending aorta 4.1 ?cm. Distal ascending aorta 3.8 cm. PULMONARY ARTERIES The pulmonary arteries are unseen or not interrogated. ? PERICARDIUM There is no pericardial effusion. There is an epicardial fat pad. ? CONCLUSIONS: - Exam indication: ZAMORANO - The left ventricle is normal in size. Left ventricular systolic function is normal. EF = 66 ? 5% (2D biplane) Grade I left ventricular diastolic dysfunction. - The right ventricle is normal in size. Right ventricular systolic function is normal. - There are no significant valvular abnormalities. - The visualized aorta is dilated with a maximal dimension of 4.1 cm. - There are no significant valvular abnormalities. - The patient has not had a prior CC echocardiographic exam for comparison. Impression/Recommendat ions 73 year old male with newly discovered multivessel CAD - stable -pre-op education performed with patient and family -pre-op work up initiated -discussed with Dr. Turner, CABG tomorrow SIGNATURE: Feliberto Guaman PA-C PATIENT NAME: Jocelyn Loaiza DATE: June 05, 2019 TIME: 3:00 PM PAGER/CONTACT #: Normal [facility] ECG COMPLETEon 06-05-2019 ECG COMPLETE NAME : STONEY LOAIZA PID : [id number] : 1945 Gender : Male Race : ORD : [id number] Procedure Date : Jun 05 2019 11:43:50 Edit Date : Jun 06 2019 09:54:49 Diagnosis:Sinus rhythm Atrial premature complex Probable left atrial enlargement Left anterior fascicular block Abnormal R-wave progression, early transition Left ventricular hypertrophy Abnormal ECG Confirmed by RENITA FARIAS M.D. ([id number]) on 06/06/2019 9:54:48 AM Ventricular Rate : 52 BPM Atrial Rate : 52 BPM P-R Interval : 170 ms QRS Duration : 100 ms Q-T Interval : 454 ms QTC Calculation(Bazett) : 423 ms P [place] : 66 degrees R [place] : -49 degrees T [place] : 10 degrees Test Reason : Pre OP Location : 400 : FVEKG 26 Overread By : RENITA FARIAS M.D. Edited By : RENITA FARIAS M.D. Referred By : , Acquired by : Jaime LEZAMA [facility] HISTORY PHYSICALon 0 HISTORY PHYSICAL HNO ID: [id number] Author: Robina Ashford Service: Cardiovascular Disease Author Type: Physician Retail Loan Originator Type: HANDP Filed: 06/05/2019 12:31 PM Note Text: UPDATED HANDP PRE-CARDIAC CATHETERIZATION SERVICE DATE: 06/05/2019 SERVICE TIME: 12:28 PM PHYSICAL EXAM MUST BE COMPLETED ON ADMISSION The History and Physical (completed in the past 30 days) has been reviewed and the patient has been examined. The contents accurately reflect the patient's condition with the following additions or revisions since the HANDP was completed. Examination indicates that patient having unspecified chest pain and his quality assurance director advised to have cardiac cath. Planned Procedure: [...] be found in the Electronic Medical Record dated . SIGNATURE: Robina Ashford PA-C PATIENT NAME: Jocelyn Loaiza DATE: June 05, 2019 TIME: 12:28 PM PAGER: Normal [facility] Magnesiumon 06-05-2019 Magnesium [Mass/Vol] 1.8 mg/dL Normal 1.7-2.6 [facility] Comment on above: Performed By: #### B MP, MG1 ####[facility] [place], [place] [phone]#### PREALB ####[facility] [address] [place], [place] [phone] NURSING PROGon 06-05-2019 NURSING PROG HNO ID: [id number] Author: Trish KarimiRn) Pako RN Service: ? Author Type: Registered Nurse Type: Nursing Progress Note Filed: 06/05/2019 8:43 PM Note Text: Nursing Progress Note Patient Name: Jocelyn Loaiza [id number][id number] __ {shift note Hibiclens bath completed,Heparin infusion stared as ordered. This note was completed by: Trish Min RN [facility] NURSING PROG HNO ID: [id number] Author: Trish KarimiRn) Pako RN Service: ? Author Type: Registered Nurse Type: Nursing Progress Note Filed: 06/05/2019 5:18 PM Note Text: Nursing Progress Note Patient Name: Jocelyn Loaiza Patient Location: [id number]/[facility] -[id number] __ {shift note Pt taking dinner well,see NPR.No c/o offerred.R radial site WNL.Call light in reach.Family at bedside. This note was completed by: Trish Min RN [facility] NURSING PRO HNO ID: [id number] Author: Keya KarimiRnDonna Gant RN Service: Nursing Author Type: Registered Nurse Type: Nursing Progress Note Filed: 06/05/2019 3:15 PM Note Text: Nursing Progress Note Patient Name: Jocelyn Loaiza [id number] __ Pt ordering meal. Denies pain. Call martinez ion reach. 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 SB noted on bedside monitor. Rt radial TR band in place with reported 100c air, site WNL, radial pulse palpable. See NPR. Call martinez in reach. Actions taken: Patient oriented to room, call light function and prescribed activities. The patient has been instructed on the plan of care. Report rec'd from TIMOTHY De La Garza. Patient belongings with patient. Pt's daughter at bedside. This note was completed by: Keya Gant RN [facility] [id number] Author: Anne Marie KarimiRnDonna Davila RN Service: Nursing Author Type: Registered Nurse Type: Nursing Progress Note Filed: 06/05/2019 11:59 AM Note Text: 1158 Pre-op completed. IV inserted; current labs on chart. EKG and prep done. Family to bedside. [facility] OPERATIVE NOon 06-05-2019 OPERATIVE NO HNO ID: [id number] Author: Rich Galarza Service: Cardiovascular Disease Author Type: Physician Type: Operative Report Filed: 06/05/2019 2:20 PM Note Text: CLINICAL LABORATORY SCIENTIST PROCEDURE REPORT SERVICE DATE: 06/05/2019 SERVICE TIME: EDUCATION SALES CONSULTANT: Rich Galarza MD ATTENDING: Rich Galarza PRIMARY CARE PHYSICIAN: Bella Santos MD REFERRING PROVIDER: [place]RA[place]I STUDY OF HEALTH and AGING SCALE:2=Well CARDIOVASCULAR INSTABILITY:No PRE-PROCEDURE DIAGNOSIS: 1. Angina, Unstable POST PROCEDURE DIAGNOSIS: 1. [place] Coronary Artery Disease in the LAD (Severe), RCA (UI SOFTWARE DEVELOPER) and LCX (UI SOFTWARE DEVELOPER) 2. Normal carotid arteries PROCEDURE: 1. Left Heart Catheterization 2. LV Gram 3. bilatrela selevtive carotid angiogram MODERATE SEDATION: Moderate Sedation provided by Cardiology Nursing Staff. Moderate sedation consisting of continuous ECG, pulse oximetry and cardiopulmonary monitoring was performed by the Cardiology Nurse, overseen by supervising physician, for an intra-service time of 1 hr. 0 min. Sedative Medications: Drug: Versed Dose: 1 mg Route: IV Drug: Fentanyl Dose: 50 mcg Route: IV PRIORITY AT TIME OF PROCEDURE: Elective SITE OF ENTRY: Radial:Right Radial CONTRAST: Low Osmolar Omnipaqe (iohexol) Injection 350mgI/ml: 85 mL LEFT HEART CATHETERIZATION AND FINDINGS: The patient was taken to the cardiac laborer electroplating where the entry site was prepped and draped in a sterile manner. Under local anesthesic with 2% Lidocaine, the vessel was cannulated with micropuncture technique using an arterial needle and Ultrasound was used to visualize and guide the entry into the vessal and a 5F sheath was introduced. Selective injections were made in the left and right coronary arteries and various right, left and oblique views were obtained. The aortic valve was crossed and hemodynamic measurements were recorded. LV Angiogram was performed. ADDITIONAL PROCEDURES bilateral carotid angiogram 1- Right carotid: Common: normal Internal: normal External: normal HAZEL: normal MCA: normal 2- Left carotid: Common: normal Internal: normal External: normal HAZEL: normal MCA: normal Arch: CORONARY ANGIOGRAPHY: LEFT MAIN TRUNK: No Stenosis LEFT ANTERIOR DESCENDIN% Stenosis Location: Proximal, Mid, Diffuse, Calcified DIAGONAL #1: 60% Stenosis Location: [...] returned to the recovery room in a stable condition. ESTIMATED BLOOD LOSS: Less Than Minimal Unless Noted Here. COMPLICATIONS: None SPECIMENS: No specimens obtained unless noted here. CONDITION: Stable RECOMMENDATIONS: Follow protocol of post-op orders. CABG. SIGNATURE: Rich Galarza MD PATIENT NAME: Jocelyn Loaiza DATE: June 05, 2019 TIME: 2:15 PM [facility] PTT,Anticoag Therapyon 06-05 aPTT Coag (Bld) [Time] 36.8 s High 23.0-32.4 [facility] Comment on above: Result Comment: Unfr actionated Heparin Therapeutic Ranges: Standard Heparin Nomogram: 53 to 78 seconds (anti-Xa level of 0.3 to 0.7 U/ml) Low Dose/ACS Nomogram: 49 to 67 seconds (anti-Xa level of 0.2 to 0.5 U/ml) Stroke Treatment Nomogram: 49 to 67 seconds (anti-Xa level of 0.2 to 0.5 U/ml) Note: The APTT therapeutic range has been determined for the current lot of laboratory APTT reagent in use throughout the [facility]. Performed By: #### C BC, PT, PTTAC #### [facility] [address] [place] [address] Prealbuminon 06-05-2019 Prealbumin [Mass/Vol] 32 mg/dL Normal 17-36 [facility] Comment on above: Performed By: #### B MP, MG1 ####[facility] [place], [place] [phone]#### PREALB ####[facility] [place], [place] [phone] Protimeon 06-05-2019 PT Coag (PPP) [Time] 1.1 s Normal 0.9-1.3 [facility] Comment on above: Result Comment: Amelia min K Antagonist (VKA) Therapeutic Range: INR 2 to 3 (Target INR of 2.5) Note: For patients treated with VKA drugs, such as warfarin, the [place] [employer] 2012 Guideline recommends a therapeutic INR range of 2 to 3 (target INR of 2.5). This recommendation includes high-risk patients with antiphospholipid syndrome with previous arterial or venous thromboembolism, current-generation mechanical or bioprosthetic aortic heart valve replacement. Note: Patients with mechanical aortic valve replacement and additional risk factors for thromboembolic events (atrial fibrillation, previous thromboembolism, LV dysfunction, hypercoagulable conditions) or an older generation mechanical AVR (i.e., ball in-Cage) or any mechanical MVR should have a INR therapeutic range of 2.5 to 3.5 (target INR of 3). Christelle GH, et al. Chest 2012, 141:7S-47S Ellen RA, et al. [facility] 2017, 70: 252-289 Performed By: #### C BC, PT, PTTAC #### [place] [address] PT Coag (PPP) [Time] 11.8 s Normal 9.7-13.0 [facility] Comment on above: Performed By: #### C BC, PT, PTTAC #### [place] [phone] Staph aureus PCRon 0 MRSA PCR Negative [facility] Comment on above: Performed By: #### S APCR ####[phone] [address] [place], [place] [phone] S aureus Spec Source Nasal Normal [facility] Comment on above: Performed By: #### S APCR ####[phone] [place], [place] [phone] Staph aureus PCR Negative Normal [facility] Comment on above: Performed By: #### S APCR ####[place] [phone] [place] [address] [address] [place], [place] [phone] Type and Screenon 06-05-2019 ABO/RH(D) Positive Normal [facility] Comment on above: Performed By: #### T SCR ####[place] [phone] Urinalysison 06-05-2019 Bacteria LM.HPF (Urine sed) [#/Area] Rare Critically abnormal Negative [facility] Comment on above: Performed By: #### U A ####[phone] Bilirubin, Urine Negative Normal [facility] Comment on above: Performed By: #### U A ####[place] [phone] Clarity (U) Clear Normal Clear [facility] Comment on above: Performed By: #### U A ####[place] [phone] Color (U) Yellow Normal Yellow [facility] Comment on above: Performed By: #### U A ####[place] [phone] Comments SEE COMMENT Normal [facility] Comment on above: Result Comment: Micr oscopic Examination Performed Performed By: #### U A ####[place] [phone] Glucose Ql (U) Negative Normal Negative [facility] Comment on above: Performed By: #### U A ####[place] [phone] Hemoglobin/Blood,Ur Negative Normal Negative [facility] Comment on above: Performed By: #### U A ####[phone] Ketones Ql (U) Negative Normal Negative [facility] Comment on above: Performed By: #### U A ####[place] [phone] Leukest Negative Normal Negative [facility] Comment on above: Performed By: #### U A ####[place] [phone] Nitrite Ql (U) Negative Normal Negative [facility] Comment on above: Performed By: #### U A ####[place] [phone] pH (Bld) 7.0 Normal 5.0-8.0 [facility] Comment on above: Performed By: #### U A ####[phone] Protein (U) [Mass/Vol] 30 mg/dL Criticall y abnormal Negative [facility] Comment on above: Performed By: #### U A ####[place] [phone] RBC (U) [#/Vol] 5-10 Critically abnormal [facility] Comment on above: Performed By: #### U A ####[place] [phone] Specific [place], Ur >1.030 High 1.005-1.030 [facility] Comment on above: Result Comment: Prashant ected on 06/05 AT 1845: Previously reported as 1.045 Performed By: #### U A ####[phone] Urobilinogen Qn (U) <2.0 Normal <2.0 [facility] Comment on above: Performed By: #### U A ####[place] [phone] WBC (Bld) [#/Vol] Rare Critically abnormal [facility] Comment on above: Performed By: #### U A ####[place] [phone] HOSPon 06-04-2019 HOSP Patient:Mer Loaiza MRN: Height:5' 7(1.702 m) Weight:167 lb 9.6 oz (76.023 kg) Outpatient Medications as of 06/06/19: nitroglycerin sublingual (NITROSTAT) 0.4 mg SL tablet perflutren lipid microspheres (DEFINITY) 1.1 mg/mL injection (to be provided with echo procedure) perflutren lipid microspheres (DEFINITY) 1.1 mg/mL injection (to be provided with echo procedure) atenolol (TENORMIN) 50 mg tablet sulfacetamide sodium-sulfur 9.8-4.8 % lotn aspirin, enteric coated (ASPIRIN, ENTERIC COATED) 81 mg EC tablet atorvastatin (LIPITOR) 10 mg tablet Admission/Clinic Administered Medications as of 06/06/19: NaCl 0.9% 75 mL perflutren lipid microspheres 1.1 mg/mL 1.3 mL injection (DEFINITY) heparin iv infusion (LOW DOSE ACS/NOMOGRAM) 25,000 units in NaCl 0.45% 250 mL PREMIX heparin RATE CHANGE bolus 1,000-4,000 Units for subtherapeutic aptt results atorvastatin 10 mg tab(s) (LIPITOR) [...] 49.1 % 06/06/2019 51.0 39.0 Progress Notes ([facility]): Jenn Antoine RN 06/05/2019 2:53 PM Signed TRANSITION CARE MANAGEMENT (TCM) INITIAL CONTACT Fish Grader Outreach Provider Action/FYI: Patient scheduled for heart cath on 06/05/19. Patient says he will make TCM appointment after that. Initial contact with patient post discharge, spoke to patient 06/04/19 @ 04:20 PM. Patient identified by name and . TRANSITION CARE MANAGEMENT INITIAL OUTREACH DOCUMENTATION: No flowsheet data found. SUMMARY: -Pt discharged from [facility] on 06/02/2019. -Admitted for: Chest pain, SOB Do you have a hospital follow up appointment with your PCP? Appointment on with No appointment made. Patient states he is having a heart cath tomorrow @ [facility] and will call to schedule after that. MEDICATIONS: Many patients have questions or concerns about their medications once they are home. Were you prescribed any new medications? No Were you told to hold any medications? No Were any of your medications discontinued? No Do you have any questions about getting or taking your medications? No Your discharge instructions/After visit Summary (AVS) are important in guiding you through the recovery process. Is there anything I might help you understand? No Do you have all the necessary equipment and supplies at home? Ye Medical records from recent hospitalization: [facility] Previous Version Debora Evasn LPN 06/05/2019 2:53 PM Signed Left message for pt to call office. Triage- if pt returns call, please f2 through questions in TCM note started below and make appt for pt to see PCP/[facility] care team. JESSY Garcia RN 06/05/2019 2:53 PM Signed Patient returned call. TCM questions answered. Patient is scheduled for heart cath tomorrow @ [facility] and will call back for appointment after that. He states they did not prescribe any new medications but in review of [facility] discharge note, patient was prescribed NTG SL. Progress Notes ([facility]): Estella Ragland Pss 05/16/2019 1:35 PM Signed Contacted patient to schedule with Cardiology at [facility] as requested and they were booking out into June. I scheduled him in [facility] at the end of May but he is having a procedure done with Dr Shaffer to break up kidney stones on 05/25 and wanted to know if he should see Cardiology sooner. Please advise and call patient at [phone]. Thank you Estella Santos MD 05/16/2019 3:13 PM Signed I think he is OK to go ahead and get the procedure done with Dr Shaffer, and see the Physiotherapist'S Assistant after that. MD Kimi Xiao Cma 05/16/2019 3:22 PM Signed TC to patient. Advised of below message and he verbalized understanding. Kimi Alla [facility] Normal [facility] Basic Metabolic Panlon 06-02 Anion gap [Moles/Vol] 16 mmol/L Normal 9-18 [facility] Comment on above: Performed By: #### B MP, MG1, CBC ####[facility] [address] [place] [address] Calcium [Mass/Vol] 9.2 mg/dL Normal 8.5-10.2 [facility] Comment on above: Performed By: #### B MP, MG1, CBC ####[facility] [address] [place] [address] Chloride [Moles/Vol] 106 mmol/L High 97-105 [facility] Comment on above: Performed By: #### B MP, MG1, CBC ####[facility] [address] [place] [address] CO2 [Moles/Vol] 21 mmol/L Low 22-30 [facility] Comment on above: Performed By: #### B MP, MG1, CBC ####[facility] [address] [place] [address] Creatinine [Mass/Vol] 0.87 mg/dL Normal 0.73-1.22 [facility] Comment on above: Performed By: #### B MP, MG1, CBC ####[facility] Ffpkcgzyuz6604 [address] eGFR- Amer. >60 Normal [facility] Comment on above: Performed By: #### B MP, MG1, CBC ####[facility] Lxjferottg6832 [address] GFR/1.73 sq M predicted among non-blacks MDRD (S/P/Bld) [Vol rate/Area] mL/min/{1.73_m2} Normal [facility] Comment on above: Result Comment: eGFR (Estimated GFR) Units of measure: [...] accurately reflect actual GFR. Performed By: #### B MP, MG1, CBC ####[facility] Xlc[address]ukx4961 [address] Glucose [Mass/Vol] 97 mg/dL Normal 74-99 [facility] Comment on above: Result Comment: The [place] Diabetes Association (ADA) provides guidance for cutoff values for fasting glucose and random glucose. The ADA defines fasting as no caloric intake for at least 8 hours. Fasting plasma glucose results between 100 to 125 mg/dL indicate increased risk for diabetes (prediabetes). Fasting plasma glucose results greater than or equal to 126 mg/dL meet the criteria for diagnosis of diabetes. In the absence of unequivocal hyperglycemia, results should be confirmed by repeat testing. In a patient with classic symptoms of hyperglycemia or hyperglycemic crisis, random plasma glucose results greater than or equal to 200 mg/dL meet the criteria for diagnosis of diabetes. Reference: Standards of Medical Care in Diabetes 2016, [place] [employer] Association. Diabetes Care. 2016.39(Suppl 1). Performed By: #### B MP, MG1, CBC ####[facility] [address] [place] [phone] Potassium [Moles/Vol] 4.2 mmol/L Normal 3.7-5.1 [facility] Comment on above: Performed By: #### B MP, MG1, CBC ####[facility] [address] [place] [phone] Sodium [Moles/Vol] 143 mmol/L Normal 136-144 [facility] Comment on above: Performed By: #### B MP, MG1, CBC ####[facility] [address] [place] [phone] Urea nitrogen [Mass/Vol] 23 mg/dL Normal 9-24 [facility] Comment on above: Performed By: #### B MP, MG1, CBC ####[facility] [address] [place] [phone] CASE MANAGEMon 06-02-2019 CASE MANAGEM HNO ID: [id number] Author: Gail Reynolds RN Service: Nursing Author Type: Registered Nurse Type: [...] patient's needs as recommended by the inter-professional team:: No Caregiver needed Does the patient have an acute stroke diagnosis, or has the patient had a stroke during this admission?: No Family Name/Phone: Bharat Loaiza, Patient's transition needs and plan for meeting these needs: DC home with self care. HANDOFF COMMUNICATION: Handoff to: Primary Care Physician Primary Care Physician Name/Phone: Bella Santos MD, Summary of care sent to PCP. TRANSPORTATION ARRANGEMENTS: Transportation Arrangements: Car ADDITIONAL CONTACT RESOURCES: N/A Needs Prior to Discharge: None;Ready for Discharge DC order received for home with no skilled needs. CM met with patient at bedside and he is agreeable to DC plan. Daughter to transport. Patient will arrange own follow up appt. 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 Last discharge within 30 days: No Advance Directive: Current Advance Directive: None Film Sound Engineer Attempted to Assist with AD Completion: Yes Action: Patient Unwilling Health LiteracyHow often do you need to have someone help you when you read instructions, pamphlets, or other written material from your doctor or pharmacy? : 1 - Never How confident are you filling out medical forms by yourself?: 1 - Extremely If Patient scores > 3 on either question, the following interventions were put into place:: Patient did not score > 3 on either question. Prior to Admission: Baseline Mental Status: Alert AND Oriented Prior to this illness, has anyone described the patient having any of the following behaviors? Not Applicable Relationship of the information to the patient:: Self Functional Status: Independent Does Patient Currently Receive Any Community Services or Home Care?: None Equipment Prior to Admission: None SOCIAL: Living Arrangements: Home Financial Resources: RetiredPrimary Contact: Extended Emergency Contact Information Primary Emergency Contact: Bharat Loaiza Address: [address] [place] [address] Relation: Spouse Supportive Patient Contact:: Yes Contact Resources: Family Social Needs Food insecurity Worry: Never true Inability: Never true Resources Needed: No Social Needs Financial resource strain: Not hard at all Social Needs Transportation needs Medical: No Non-medical: No Caregiver AssessmentCaregiver is ready, willing and able to meet the patient's needs as recommended by the inter-professional team:: No Caregiver needed Does the patient have an acute stroke diagnosis, or has the patient had a stroke during this admission?: No Family Name/Phone: Bharat Josse, Patient's perception of need for this admission: Here for workup for chest pain Medication Adherance I am convinced of the importance of my prescription medication: 0 - Agree Completely I worry that my prescription medication will do more harm than good to me : 0 - Diagree Completely I feel financially burdened by my mwl-uh-advqym expenses for my prescription medication:: 0 - Diagree Completely Risk Score: 0 Patient is categorized as: Low risk < 2 Are you interested in bedside delivery of your medications? No Is Patient Psychosocially Complex?: No ASSESSMENT AND PLAN: Medical Needs: Medical Needs: Two or more chronic diseases Psychosocial Needs: Psychosocial Needs: None FREEDOM OF CHOICE EXPLAINED: [place] of Choice Given: No Reason Not Given: No placements necessary POTENTIAL TRANSITION PLANS Home EMR reviewed. Patient assigned obs bed for chest pain. CM met with patient at bedside. 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 Anticipate no skilled needs at [place]. CM assigned will follow. SIGNATURE: Gail Reynolds RN PATIENT NAME: Jocelyn Loaiza DATE: June 02, 2019 TIME: 12:09 PM PAGER/CONTACT #: [phone] Normal [facility] CBCon 06-02-2019 Erythrocyte distribution width (RBC) [Ratio] 12.6 % Normal 11.5-15.0 [facility] Comment on above: Performed By: #### B DELROY MG1, CBC ####[facility] Fkdotdotxl2616 [address] Hematocrit (Bld) [Volume fraction] 48.5 % Normal 39.0-51.0 [facility] Comment on above: Performed By: #### B DELROY MG1, CBC ####[facility] Ihhauummfc8132 [address] Hemoglobin (Bld) [Mass/Vol] 16.1 g/dL Normal 13.0-17.0 [facility] Comment on above: Performed By: #### B DELROY MG1, CBC ####[facility] Etcdpecmzp6719 [phone] MCH (RBC) [Entitic mass] 30.5 pG Normal 26.0-34.0 [facility] Comment on above: Performed By: #### B DELROY MG1, CBC ####[facility] Ytxszzuyfs4484 [address] MCHC (RBC) [Mass/Vol] 33.2 g/dL Normal 30.5-36.0 [facility] Comment on above: Performed By: #### B DELROY MG1, CBC ####[facility] Wcmjqcpevq5705 [phone] MCV (RBC) [Entitic vol] 91.9 fL Normal 80.0-100.0 [facility] Comment on above: Performed By: #### B MP, MG1, CBC ####[facility] [address]49 [place] [phone] Platelet mean volume (Bld) [Entitic vol] 9.9 fL Normal 9.0-12.7 [facility] Comment on above: Performed By: #### B MP, MG1, CBC ####[facility] [address]hi7772 [place] [phone] Platelets (Bld) [#/Vol] 288 10*3/uL Normal 150-400 [facility] Comment on above: Performed By: #### B MP, MG1, CBC ####[facility] [address]24[address] [place] [phone] RBC (Bld) [#/Vol] 5.28 10*6/uL Normal 4.20-6.00 [facility] [place] Comment on above: Performed By: #### B MP, MG1, CBC ####[facility] Tcbppumulk0640 [address] WBC (Bld) [#/Vol] 7.97 10*3/uL Normal 3.70-11.00 [facility] [place] Comment on above: Performed By: #### B MP, MG1, CBC ####[facility] Fvmbpjebra9280 [address] CNCOon 06-02-2019 CNCO Letter Text Normal [facility] CONSULTon 06-02-2019 CONSULT HNO ID: [id number] Author: Jerome Neumann Service: Cardiovascular Disease Author Type: Physician Type: Consults Filed: 06/02/2019 12:53 PM Note Text: CONSULT: CARDIOLOGY SERVICE PATIENT NAME: Jocelyn Loaiza DATE of SERVICE: 06/02/2019 TIME of SERVICE: 12:51 PM REASON FOR CONSULT: Dyspnea REQUESTING PHYSICIAN: PRIMARY CARE PHYSICIAN: Bella Santos MD Mr. Loaiza is a 73 year old male with history of HTN and HLD has been having exertional dyspnea for the past few days. His work up including ecg and enzymes were negative and he denies chest pain or jaw pain or left shoulder pain. He had a negative stress test four years ago and he is supposed to get another stress test next week. No prior IN,CVA,CHF.COPD or thyroid problems. Never had cardiac cath. CT chest showed no PE but extensive calcification of coronaries. He is fairly active and does exercise three to four times a week.He had a normal echo. ASSESSMENT AND PLAN: New onset exertional dyspnea : Ruled out for IN Extensive calcification of coronaries Hypertension Hyperlipidemia Asymptomatic sinus bradycardia Would plan for left heart cath next week Explained about the procedure and he agrees to get it done at [facility] OK to discharge him home from cardiac [...] Laterality Date - COLONOSCOP W/ OR W/O [facility] SPEC 02/15/2019 Colonoscopy - COLONOSCOPY 2006 [...] mg tablet, Take 1 tablet by mouth once daily., Disp: 90 tablet, Rfl: 2, 06/01/2019 at 0800 sulfacetamide sodium-sulfur 9.8-4.8 % lotn, Apply thin film to affected area 1 times daily., Disp: , Rfl: , Taking aspirin, enteric coated (ASPIRIN, ENTERIC COATED) 81 mg EC tablet, Take 81 mg by mouth once daily., Disp: , Rfl: , 06/01/2019 at Unknown time atorvastatin (LIPITOR) 10 mg tablet, Take 10 mg by mouth once daily., Disp: , Rfl: , 05/31/2019 at 2100 perflutren lipid microspheres (DEFINITY) 1.1 mg/mL injection (to be provided with echo procedure), Inject 1.3 mL intravenously as directed. Administration Instructions: If no IV access, insert saline lock prior to administering contrast. Discontinue saline lock post exam. If patient has central line or IVAD, may access for administration according to line specific nursing protocol. Once exam is complete, flush line and de-access per line specific nursing protocol. Diluted IV Bolus: Dilute 1.3 ml of Definity with 8.7 ml of preservative-free saline., Disp: 1.3 mL, Rfl: 0 perflutren lipid microspheres (DEFINITY) 1.1 mg/mL injection (to be provided with echo procedure), Inject 1.3 mL intravenously as directed. Administration Instructions: If no IV access, insert saline lock prior to administering contrast. Discontinue saline lock post exam. If patient has central line or IVAD, may access for administration according to line specific nursing protocol. Once exam [...] Negative for frequent or significant headaches, No changes in hearing or vision, no nose bleeds or other nasal problems NECK: Negative for lumps, goiter, pain and significant neck swelling RESPIRATORY: Exertional dyspnea relieved by rest CARDIOVASCULAR: Negative for chest pain, leg swelling, hypertension, CHF or palpitations GI: No nausea, vomiting, or diarrhea : No history of dysuria, frequency or incontinence MUSCULOSKELETAL: Negative for joint pain or swelling, back pain or muscle pain SKIN: Negative for lesions, rash, and itching PSYCH: Negative for sleep disturbance, mood disorder and recent psychosocial stressors. HEMATOLOGY/LYMPHOLOGY Negative for prolonged bleeding, bruising easily or swollen nodes ENDOCRINE: Negative for [...] color, texture, turgor normal. No rashes or lesions. HEAD/SINUSES: No significant findings EYES: PERRLA, EOMI EARS: External ears normal, canals clear NOSE: Nares normal. Septum midline. OROPHARYNX: Lips, mucosa, and tongue normal. Teeth and gums normal. Oropharynx normal. NECK: No jugulovenous distention, No carotid bruits, Carotid pulse normal contour, Supple LUNGS: Lungs clear to auscultation, Good diaphragmatic excursion CARDIAC: Normal S1 and S2; no rubs, murmurs, or gallops ABDOMEN: Abdomen soft, non-tender, BS normal, No masses or organomegaly EXTREMITIES: Extremities normal, no deformities, edema, clubbing or skin discoloration. Good capillary refill., No ulcers NEURO: Gait normal. Reflexes normal and symmetric. Sensation grossly intact, Cranial nerves II-XII intact PULSES: 2+ radial, 2+ carotid DATA: Radiology: Laboratory: Reviewed Other: SIGNATURE: Jerome Neumann MD CELL TEXT : [phone] DATE: June 02, 2019 TIME: 12:45 PM Normal [facility] Hemoglobin A1con 06-02-2019 HbA1c (Bld) [Mass fraction] 5.2 % Normal 4.3-5.6 [facility] Comment on above: Result Comment: Amer ican Diabetes Association guidelines indicate that patients with HgbA1c in the range 5.7-6.4% are at increased risk for development of diabetes, and intervention by lifestyle modification may be beneficial. HgbA1c greater or equal to 6.5% is considered diagnostic of diabetes. Performed By: #### H BA1C ####[facility] [address] [place], [place] [phone]#### LIPB ####[facility] [address] [place] [phone] HbA1c (Bld) [Mass fraction] 103 mg/dL Normal [facility] Comment on above: Result Comment: eAG: (Estimated average glucose) is a calculated value from HgbA1c and is personal financial representative of the average blood glucose level in the last 2-3 month period. Performed By: #### H BA1C ####[place] [phone]#### LIPB ####[facility] [address] [place] [address] Lipid Panel, [facility] 020 Cholesterol [Mass/Vol] 153 mg/dL Normal <200 [facility] Comment on above: Performed By: #### H BA1C ####[place] [phone]#### LIPB ####[place] [address] Cholesterol in HDL [Mass/Vol] 32 mg/dL Low >39 [facility] Comment on above: Performed By: #### H BA1C ####[place] [address]#### LIPB ####[place] [address] Cholesterol in LDL [Mass/Vol] 92 mg/dL Normal <100 [facility] Comment on above: Performed By: #### H BA1C ####[place] [phone]#### LIPB ####[place] [address] Fasting Time Unknown Normal [facility] Comment on above: Performed By: #### H BA1C ####[place] [phone]#### LIPB ####[place] [address] LDL:HDL Ratio 2.88 High <2.54 [facility] Comment on above: Result Comment: Refe papa: 1. National Cholesterol Education Program ATP III Guideline At-A-Glance Quick Desk Reference: National Heart, Lung, and Blood [place]. National Institutes of Health. 2001: NIH Publication No. 01-3305. 2. An International Atherosclerosis Society position paper: global recommendations for the management of dyslipidemia: executive summary, Atherosclerosis. 2014: 232(2):410-413. Performed By: #### H BA1C ####[place] [address]#### LIPB ####[place] [address] Non HDL Cholesterol 121 mg/dL Normal <130 [facility] [place] Comment on above: Performed By: #### H BA1C ####[place] [address]#### LIPB ####[place] [address] TC:HDL Ratio 4.78 Normal <5.10 [facility] Comment on above: Performed By: #### H BA1C ####[place] [address]#### LIPB ####[place] [address] Triglyceride [Mass/Vol] 144 mg/dL Normal <150 [facility] Comment on above: Performed By: #### H BA1C ####[place] [address]#### LIPB ####[place] [address] VLDL Cholesterol 29 mg/dL Normal <30 [facility] Comment on above: Performed By: #### H BA1C ####[place] [address]#### LIPB ####[place] [address] Magnesiumon 06-02-2019 Magnesium [Mass/Vol] 1.9 mg/dL Normal 1.7-2.3 [facility] Comment on above: Performed By: #### B MP, MG1, CBC ####[facility] [address] NURSING PROGon 06-02-2019 NURSING PROG HNO ID: [id number] Author: Bia (Rn) TIMOTHY Rehman Service: ? Author Type: Registered Nurse Type: Nursing Progress Note Filed: 06/02/2019 12:01 PM Note Text: Nursing Progress Note Topic of Note: Daily Note Jocelyn Loaiza [id number]: Assumed care of patient. Patient currently denies any chest pain or shortness of breath on room air. Patient remains stable and unchanged on telemetry; SB. Troponin negative to date. Patient awaiting Cardiology consult. 0930: No change in patient's assessment. Telemetry continues; SB with no changes. Dr. Kay on unit. No reported chest pain or shortness of breath. 1115: Patient received discharge order. This note was completed by: Bia Rehman RN Normal [facility] Troponin Ton 06-02-2019 Troponin T.cardiac [Mass/Vol] ug/L Normal 0.000-0.029 [facility] Comment on above: Performed By: #### T NT ####[facility] [address] [place] [address] Troponin T.cardiac [Mass/Vol] ug/L Normal 0.000-0.029 [facility] Comment on above: Performed By: #### T NT ####[facility] [address] [place] [address] Basic Metabolic Panlon 06-01 Anion gap [Moles/Vol] 14 mmol/L Normal 9-18 [facility] Comment on above: Performed By: #### M G1, CBC, BMP ####[facility] [address] Calcium [Mass/Vol] 8.7 mg/dL Normal 8.5-10.2 [facility] Comment on above: Performed By: #### M G1, CBC, BMP ####[facility] [address] Chloride [Moles/Vol] 104 mmol/L Normal 97-105 [facility] Comment on above: Performed By: #### M G1, CBC, BMP ####[facility] [address] [place] [address] CO2 [Moles/Vol] 24 mmol/L Normal 22-30 [facility] Comment on above: Performed By: #### M G1, CBC, BMP ####[facility] [address] [place] [address] Creatinine [Mass/Vol] 0.81 mg/dL Normal 0.73-1.22 [facility] Comment on above: Performed By: #### M G1, CBC, BMP ####[facility] [address] [place] [address] eGFR- Amer. >60 Normal [facility] Comment on above: Performed By: #### M G1, CBC, BMP ####[facility] [address] [place] [phone] GFR/1.73 sq M predicted among non-blacks MDRD (S/P/Bld) [Vol rate/Area] mL/min/{1.73_m2} Normal [facility] Comment on above: Result Comment: eGFR (Estimated GFR) Units of measure: [...] accurately reflect actual GFR. Performed By: #### M G1, CBC, BMP ####[facility] [address] [place] [id number] Glucose [Mass/Vol] 117 mg/dL High 74-99 [facility] Comment on above: Result Comment: The [place] Diabetes Association (ADA) provides guidance for cutoff values for fasting glucose and random glucose. The ADA defines fasting as no caloric intake for at least 8 hours. Fasting plasma glucose results between 100 to 125 mg/dL indicate increased risk for diabetes (prediabetes). Fasting plasma glucose results greater than or equal to 126 mg/dL meet the criteria for diagnosis of diabetes. In the absence of unequivocal hyperglycemia, results should be confirmed by repeat testing. In a patient with classic symptoms of hyperglycemia or hyperglycemic crisis, random plasma glucose results greater than or equal to 200 mg/dL meet the criteria for diagnosis of diabetes. Reference: Standards of Medical Care in Diabetes 2016, [place] Diabetes Association. Diabetes Care. 2016.39(Suppl 1). Performed By: #### M G1, CBC, BMP ####[facility] [address] [place] [address] Potassium [Moles/Vol] 4.1 mmol/L Normal 3.7-5.1 [facility] Comment on above: Performed By: #### M G1, CBC, BMP ####[place] [address] Sodium [Moles/Vol] 142 mmol/L Normal 136-144 [facility] Comment on above: Performed By: #### M G1, CBC, BMP ####[place] [address] Urea nitrogen [Mass/Vol] 19 mg/dL Normal 9-24 [facility] Comment on above: Performed By: #### M , CBC, BMP ####[place] [address] CBCon 06-01-2019 Erythrocyte distribution width (RBC) [Ratio] 12.4 % Normal 11.5-15.0 [facility] Comment on above: Performed By: #### M , CBC, BMP ####[place] [address] Hematocrit (Bld) [Volume fraction] 48.8 % Normal 39.0-51.0 [facility] Comment on above: Performed By: #### M G1, CBC, BMP ####[facility] [address] [place] [address] Hemoglobin (Bld) [Mass/Vol] 16.3 g/dL Normal 13.0-17.0 [facility] Comment on above: Performed By: #### M G1, CBC, BMP ####[place] [address] MCH (RBC) [Entitic mass] 30.4 pG Normal 26.0-34.0 [facility] Comment on above: Performed By: #### M G1, CBC, BMP ####[facility] [address] [place], [place] [phone] MCHC (RBC) [Mass/Vol] 33.4 g/dL Normal 30.5-36.0 [facility] Comment on above: Performed By: #### M G1, CBC, BMP ####[facility] [address] [place], [place] [phone] MCV (RBC) [Entitic vol] 91.0 fL Normal 80.0-100.0 [facility] Comment on above: Performed By: #### M G1, CBC, BMP ####[facility] [address] [place], [place] [phone] Platelet mean volume (Bld) [Entitic vol] 9.5 fL Normal 9.0-12.7 [facility] Comment on above: Performed By: #### M G1, CBC, BMP ####[facility] [address] [place], [place] [phone] Platelets (Bld) [#/Vol] 275 10*3/uL Normal 150-400 [facility] Comment on above: Performed By: #### M G1, CBC, BMP ####[facility] [address] [place], [place] [phone] RBC (Bld) [#/Vol] 5.36 10*6/uL Normal 4.20-6.00 [facility] [place] Comment on above: Performed By: #### M G1, CBC, BMP ####[facility] [address] [place], [place] [phone] WBC (Bld) [#/Vol] 7.13 10*3/uL Normal 3.70-11.00 [facility] [place] Comment on above: Performed By: #### M G1, CBC, BMP ####[facility] [address] [place], [place] [phone] HISTORY PHYSICALon 0 HISTORY PHYSICAL HNO ID: [id number] Author: Leila Taylor) Proofer Apprentice Service: Hospital Medicine Author Type: Nurse Practitioner Type: HANDP Filed: 06/01/2019 9:03 PM Note Text: Attestation signed by Hank Hidalgo at 06/02/2019 4:17 PM Discussed with provider below and I agree with their history exam assessment and plan. Hank Hidalgo MD SERVICE DATE: 06/01/2019 SERVICE TIME: 8:51 PM HOSPITAL MEDICINE HISTORY AND PHYSICAL PCP: Bella Santos MD NIGHT AND WEEKEND COVERAGE: Nights: Please contact pager [phone]. SUBJECTIVE Chief Complaint: Chest pain and shortness of breath HPI: 73 year old gentleman with PMHx significant for HTN, HLD and HARLEY who presented to [facility] for evaluation of intermittent chest pain and shortness of breath over the last 6 weeks. His symptoms are worse with exertion and has recently been limiting his regular exercise routine which includes hiking, weight lifting and cardio. Rest seems to help his symptoms. He reports he was evaluated by his PCP for the same complaint a few weeks back. He had a chest x-ray and echocardiogram completed which were reportedly normal. He is scheduled to see his primary quality assurance director at the end of the month and has a stress echo scheduled this upcoming . Of note, his last stress echo was completed in 2014 when he had very similar symptoms. It was abnormal but later followed up with a chemical stress which was negative. He was also evaluated by pulmonology at the time. PFTs were completed an a cause of his shortness of breath and chest pain was not determined. This morning his symptoms felt much worse than usual prompting his ED visit. On exam, he is symptom free. He remained hemodynamically stable in the ED. EKG showed sinus bradycardia, without ST changes. CXR negative. Lab work including Troponin I were unremarkable. A CT Chest was pursued and negative for PE but did show chronic interstitial bronchitis with no superimposed infiltration or effusion and calcified coronary vessels. He was given ASA and transferred to [facility] for rule out. PAST MEDICAL HISTORY Diagnosis Date - Dyslipidemia - Dyspnea on exertion - Former smoker, stopped smoking in distant past - HTN (hypertension) - Kidney stones - HARLEY on CPAP - Rosacea PAST SURGICAL HISTORY Procedure Laterality Date - COLONOSCOP W/ OR W/O [facility] SPEC 02/15/2019 Colonoscopy - COLONOSCOPY 2006 [...] Negative for frequent or significant headaches, No changes in hearing or vision, no nose bleeds or other nasal problems NECK: Negative for lumps, goiter, pain and significant neck swelling RESPIRATORY: Shortness of breath CARDIOVASCULAR: Chest pain GI: No nausea, vomiting, or diarrhea : No history of dysuria, frequency or incontinence MUSCULOSKELETAL: Negative for joint pain or swelling, back pain or muscle pain SKIN: Negative for lesions, rash, and itching PSYCH: Negative for sleep disturbance, mood disorder and recent psychosocial stressors HEMATOLOGY/LYMPHOLOGY: Negative for prolonged bleeding, bruising easily or swollen nodes ENDOCRINE: Negative for [...] color, texture, turgor normal. No rashes or lesions. HEAD/SINUSES: No significant findings BACK: Back symmetric, Normal curvature LUNGS: Lungs clear to auscultation, Good diaphragmatic excursion CARDIAC: RRR; no rubs, murmurs, or gallops ABDOMEN: Abdomen soft, non-tender, BS normal, No masses or organomegaly EXTREMITIES: Extremities normal, no deformities, edema, clubbing or skin discoloration. Good capillary refill. NEURO: Grossly normal cognition, motor function, and cranial nerves III-XII PULSES: 2+ radial Lines, Drains, and Airways Line Peripheral 06/01/19 1505 Admission to Hospital Short Left Antecubital 20 Gauge less than 1 day Reviewed lines and needs to be continued: REASONS: Telemetry Diagnostic tests reviewed: Most recent labs and imaging results Assessment AND Plan Active Hospital Problems as of 06/01/2019 Noted - Resolved Chest pain 06/01/2019 - Present Current Assessment AND Plan Concerning 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 AND SOB x6 weeks [employer] INS[employer]OR CT chest shows calcified coronary vessels Echo [...] use home CPAP Medication and Non-Pharmacologic VTE Prophylaxis/Anticoagul ants Anticoagulant AND Antiplatelet Medications (From admission, onward) Start Dose Route Frequency Ordered Stop 06/02/19 0900 aspirin, enteric coated 81 mg tab(s) 81 mg ORAL DAILY 06/01/19 1641 -- 06/01/19 1645 vte non-pharmacologic prophylaxis - none indicated (sc,oh) VTE Prophylaxis: VTE prophylaxis appropriate Disposition: Home when medically stable Plan of care discussed with: Patient, RN and attending SIGNATURE: Leila Riddle APRN.CNP PATIENT NAME: Jocelyn Loaiza DATE: June 01, 2019 TIME: 8:51 PM PAGER/CONTACT #: [phone] Normal [facility] Magnesiumon 06-01-2019 Magnesium [Mass/Vol] 1.8 mg/dL Normal 1.7-2.3 [facility] Comment on above: Performed By: #### M G1, CBC, BMP ####[facility] [address] [place] [phone] NURSING PROGon 06-01-2019 NURSING PROG HNO ID: [id number] Author: Racheal KarimiRn) TIMOTHY Nolasco Service: Nursing Author Type: Registered Nurse Type: Nursing Progress Note Filed: 06/02/2019 6:12 AM Note Text: Nursing Progress Note Patient Name: Jocelyn Loaiza Patient Location: [place] [address] [address] __ Daily Note: 1940 lying in semi fowlers position in bed awake watching TV. Denies needs. SB on tele, HR 55. Bed in low position, call light within reach, safety maintained. 2035 lying in semi fowlers position in bed awake watching TV. Denies chest pain. A,Ox3. Lungs clear in all lobes on auscultation. HR regular, s1 and s2 noted. SB on tele, HR 55. BSPx4 quadrants, abdomen soft, flat, non-tender. Bed in low position, call light within reach, safety maintained. 2300 lying supine in bed sleeping. SB on tele, HR 51. Bipap on. Bed in low position, call light within reach, safety maintained. 0100 lying supine in bed sleeping. SB on tele, HR 50. Bipap on. Bed in low position, call light within reach, safety maintained. 0300 lying in supine in bed sleeping. SB on tele, HR 46. Bipap on. Bed in low position, call light within reach, safety maintained. 0525 lying in supine in bed sleeping. SB on tele, HR 48. Bipap on. Bed in low position, call light within reach, safety maintained. This note was completed by: Racheal Nolasco RN [facility] NURSING PROG HNO ID: [id number] Author: Patty KarimiRnDonna Paz RN Service: Nursing Author Type: Registered Nurse Type: Nursing Progress Note Filed: 06/01/2019 6:26 PM Note Text: Nursing Progress Note Patient Name: Jocelyn MATIASN: [id number] Patient Location: [facility]1/[facility]-0321- 2 __ Daily Note:1432 - pt admitted to the OBS unit in stable condition. Admission and assessment completed and charted; see epic. Pt currently denies CP, pressure and/or dyspnea at this time; will continue to monitor. Pt oriented to unit, call light and safety; verbalizes understanding. Call light within reach; safety maintained. 1630 - pt resting in bed; denies CP, pressure and/or dyspnea; SB on tele, sat's maintained on RA; will continue to monitor. Safety maintained. 1830 - pt resting in bed; denies CP, pressure and/or dyspnea; SB on tele, sat's maintained on RA; will continue to monitor. Safety maintained. This note was completed by: Patty Paz RN Normal [facility] Troponin Ton 06-01-2019 Troponin T.cardiac [Mass/Vol] ug/L Normal 0.000-0.029 [facility] Comment on above: Performed By: #### T NT ####[facility] [address] [place], [place] [phone] Vital Signs Date Time Vital Sign Value Performing Clinician Rianna burrows 12-17-2024 14:01-0400 Body height 171.5 cm Drake Agarwal MD Work Phone: [facility] 12-17-2024 14:01-0400 Body mass index (BMI) [Ratio] 26.39 kg/m2 Drake Agarwal MD Work Phone: [facility] 12-17-2024 14:01-0400 Body weight 77.56 kg Drake Agarwal MD Work Phone: [facility] 12-17-2024 14:01-0400 Diastolic blood pressure 70 mm[Hg] Drake Agarwal MD Work Phone: [facility] 12-17-2024 14:01-0400 Heart rate 66 /min Drake Agarwal MD Work Phone: [facility] 12-17-2024 14:01-0400 Respiratory rate 12 /min Drake Agarwal MD Work Phone: [facility] 12-17-2024 14:01-0400 SaO2% (BldA) [Mass fraction] 94 % Drake Agarwal MD Work Phone: [facility] 12-17-2024 14:01-0400 Systolic blood pressure 126 mm[Hg] Drake Agarwal MD Work Phone: [facility] 12-13-2024 09:42-0400 Body mass index (BMI) [Ratio] 26.23 kg/m2 Bella Santos MD Work Phone: [facility] 12-13-2024 09:42-0400 Body weight 77.1 kg Bella Santos MD Work Phone: [facility] 12-13-2024 09:42-0400 Diastolic blood pressure 74 mm[Hg] Bella Santos MD Work Phone: [facility] 12-13-2024 09:42-0400 Heart rate 72 /min Bella Santos MD Work Phone: [facility] 12-13-2024 09:42-0400 Respiratory rate 16 /min Bella Santos MD Work Phone: [facility] 12-13-2024 09:42-0400 Systolic blood pressure 122 mm[Hg] Bella Santos MD Work Phone: [facility] 10-15-2024 18:59-0400 Body mass index (BMI) [Ratio] 26.4 kg/m2 Bella Santos MD Work Phone: [facility] 10-15-2024 18:59-0400 Body weight 77.6 kg Bella Santos MD Work Phone: [facility] 10-15-2024 18:59-0400 Diastolic blood pressure 74 mm[Hg] Bella Santos MD Work Phone: [facility] 10-15-2024 18:59-0400 Heart rate 74 /min Bella Santos MD Work Phone: [facility] 10-15-2024 18:59-0400 Respiratory rate 16 /min Bella Santos MD Work Phone: [facility] 10-15-2024 18:59-0400 SaO2% (BldA) [Mass fraction] 98 % Bella Santos MD Work Phone: [facility] 10-15-2024 18:59-0400 Systolic blood pressure 140 mm[Hg] Bella Santos MD Work Phone: [facility] 06-11-2024 18:47-0500 Diastolic blood pressure 80 mm[Hg] Bella Santos MD Work Phone: [facility] 06-11-2024 18:47-0500 Systolic blood pressure 138 mm[Hg] Bella Santos MD Work Phone: [facility] 06-11-2024 18:45-0500 Body mass index (BMI) [Ratio] 26.47 kg/m2 Bella Santos MD Work Phone: [facility] 06-11-2024 18:45-0500 Body weight 77.8 kg Bella Santos MD Work Phone: [facility] 06-11-2024 18:45-0500 Heart rate 64 /min Bella Santos MD Work Phone: [facility] 06-11-2024 18:45-0500 Respiratory rate 16 /min Bella Santos MD Work Phone: [facility] 05-07-2024 08:23-0500 Body height 171.5 cm Drake Agarwal MD Work Phone: [facility] 05-07-2024 08:23-0500 Body mass index (BMI) [Ratio] 26.23 kg/m2 Drake Agarwal MD Work Phone: [facility] 05-07-2024 08:23-0500 Body weight 77.11 kg Drake Agarwal MD Work Phone: [facility] 05-07-2024 08:23-0500 Diastolic blood pressure 62 mm[Hg] Drake Agarwal MD Work Phone: [facility] 05-07-2024 08:23-0500 Heart rate 66 /min Drake Agarwal MD Work Phone: [facility] 05-07-2024 08:23-0500 Respiratory rate 12 /min Drake Agarwal MD Work Phone: [facility] 05-07-2024 08:23-0500 SaO2% (BldA) [Mass fraction] 97 % Drake Agarwal MD Work Phone: [facility] 05-07-2024 08:23-0500 Systolic blood pressure 122 mm[Hg] Drake Agarwal MD Work Phone: [facility] 03-29-2024 09:59-0500 Diastolic blood pressure 80 mm[Hg] Bella Santos MD Work Phone: [facility] 03-29-2024 09:59-0500 Systolic blood pressure 132 mm[Hg] Bella Santos MD Work Phone: [facility] 03-29-2024 09:57-0500 Body mass index (BMI) [Ratio] 25.62 kg/m2 Bella Santos MD Work Phone: [facility] 03-29-2024 09:57-0500 Body weight 75.3 kg Bella Santos MD Work Phone: [facility] 03-29-2024 09:57-0500 Heart rate 60 /min Bella Santos MD Work Phone: [facility] 03-29-2024 09:57-0500 Respiratory rate 16 /min Bella Santos MD Work Phone: [facility] 11-29-2023 10:42-0400 Body mass index (BMI) [Ratio] 24.73 kg/m2 Bella Santos MD Work Phone: [facility] 11-29-2023 10:42-0400 Body weight 72.7 kg Bella Santos MD Work Phone: [facility] 11-29-2023 10:42-0400 Diastolic blood pressure 74 mm[Hg] Bella Santos MD Work Phone: [facility] 11-29-2023 10:42-0400 Heart rate 64 /min Bella Santos MD Work Phone: [facility] 11-29-2023 10:42-0400 Respiratory rate 16 /min Bella Santos MD Work Phone: [facility] 11-29-2023 10:42-0400 Systolic blood pressure 126 mm[Hg] Bella Santos MD Work Phone: [facility] 10-24-2023 16:19-0400 Body height 171.5 cm Drake Agarwal MD Work Phone: [facility] 10-24-2023 16:19-0400 Body mass index (BMI) [Ratio] 24.47 kg/m2 Drake Agarwal MD Work Phone: [facility] 10-24-2023 16:19-0400 Body weight 71.94 kg Drake Agarwal MD Work Phone: [facility] 10-24-2023 16:19-0400 Diastolic blood pressure 79 mm[Hg] Drake Agarwal MD Work Phone: [facility] 10-24-2023 16:19-0400 Heart rate 59 /min Drake Agarwal MD Work Phone: [facility] 10-24-2023 16:19-0400 Systolic blood pressure 150 mm[Hg] Drake Agarwal MD Work Phone: [facility] 08-16-2023 09:46-0400 Body mass index (BMI) [Ratio] 24.13 kg/m2 Bella Santos MD Work Phone: [facility] 08-16-2023 09:46-0400 Body weight 70.94 kg Bella Santos MD Work Phone: [facility] 08-16-2023 09:46-0400 Diastolic blood pressure 80 mm[Hg] Bella Santos MD Work Phone: [facility] 08-16-2023 09:46-0400 Heart rate 64 /min Bella Santos MD Work Phone: [facility] 08-16-2023 09:46-0400 Respiratory rate 16 /min Bella Santos MD Work Phone: [facility] 08-16-2023 09:46-0400 Systolic blood pressure 122 mm[Hg] Bella Santos MD Work Phone: [facility] 06-03-2023 13:03-0500 Body weight 69.22 kg Magen Mukul [employer] LOAN OFFICER.MUSEUM INFORMATICS SPECIALIST Work Phone: [facility] 06-03-2023 13:03-0500 Diastolic blood pressure 74 mm[Hg] Magen Mukul [employer] E[employer] LOAN OFFICER.MUSEUM INFORMATICS SPECIALIST Work Phone: [facility] 06-03-2023 13:03-0500 Heart rate 62 /min Magen Mukul [employer] ESTATE LOAN OFFICER.MUSEUM INFORMATICS SPECIALIST Work Phone: [facility] 06-03-2023 13:03-0500 SaO2% (BldA) [Mass fraction] 98 % Magen Mukul REAL ESTATE LOAN OFFICER.MUSEUM INFORMATICS SPECIALIST Work Phone: [facility] 06-03-2023 13:03-0500 Systolic blood pressure 130 mm[Hg] Magen Mukul REAL ESTATE LOAN OFFICER.MUSEUM INFORMATICS SPECIALIST Work Phone: [facility] 06-02-2023 19:44-0500 Diastolic blood pressure 90 mm[Hg] Dr. Bella Santos Work Phone: [facility] 06-02-2023 19:44-0500 Heart rate 69 /min Dr. Bella Santos Work Phone: [facility] 06-02-2023 19:44-0500 Respiratory rate 15 /min Dr. Bella Santos Work Phone: [facility] 06-02-2023 19:44-0500 SaO2% (BldA) [Mass fraction] 96 % Dr. Bella Santos Work Phone: [facility] 06-02-2023 19:44-0500 Systolic blood pressure 149 mm[Hg] Dr. Bella Santos Work Phone: 9(577)094-707586 [place] [address] 06-02-2023 16:31-0500 Body height 170.[address] Bella Santos Work Phone: 7(357)397-206686 [place] [address] 06-02-2023 16:31-0500 Body mass index (BMI) [Ratio] 23.8 kg/m2 Dr. Bella Santos Work Phone: 4(528)184-914886 [place] [address] 06-02-2023 16:31-0500 Body temperature 96.7 [degF] Dr. Bella Santos Work Phone: 4(265)538-112586 [place] [address] 06-02-2023 16:31-0500 Body weight 68.[address] Bella Santos Work Phone: 0(796)000-139786 [place] [address] 05-06-2023 17:25-0500 Diastolic blood pressure 73 mm[Hg] Dr. Bella Santos Work Phone: 5(715)298-669686 [place] [address] 05-06-2023 17:25-0500 Heart rate 54 /min Dr. Bella Santos Work Phone: 4(168)011-167586 [place] [address] 05-06-2023 17:25-0500 Respiratory rate 16 /min Dr. Bella Santos Work Phone: 4(339)883-748686 [place] [address] 05-06-2023 17:25-0500 SaO2% (BldA) [Mass fraction] 97 % Dr. Bella Santos Work Phone: 7(670)472-992186 [place] [address] 05-06-2023 17:25-0500 Systolic blood pressure 112 mm[Hg] Dr. Bella Santos Work Phone: 3(822)126-776586 [place] [address] 05-06-2023 15:00-0500 Body temperature 97.7 [degF] Dr. Bella Santos Work Phone: 6(750)215-686086 [place] [address] 05-06-2023 03:05-0500 Body mass index (BMI) [Ratio] 23.2 kg/m2 Dr. Bella Santos Work Phone: 9(423)347-300586 [place] [address] 05-06-2023 03:05-0500 Body weight 67.[address] Bella Santos Work Phone: [facility] 05-05-2023 20:53-0500 Body height 170.[address] Bella Santos Work Phone: [facility] 04-23-2023 11:34-0500 Diastolic blood pressure 75 mm[Hg] [facility] 04-23-2023 11:34-0500 Heart rate 69 /min [facility] 04-23-2023 11:34-0500 Respiratory rate 18 /min [facility] 04-23-2023 11:34-0500 SaO2% (BldA) [Mass fraction] 98 % [facility] 04-23-2023 11:34-0500 Systolic blood pressure 101 mm[Hg] [facility] 04-23-2023 09:19-0500 Body height 170.18 cm [facility] 04-23-2023 09:19-0500 Body mass index (BMI) [Ratio] 25.1 kg/m2 [facility] 04-23-2023 09:19-0500 Body temperature 97.7 [degF] [facility] 04-23-2023 09:19-0500 Body weight 72.8 kg [facility] 11-09-2022 09:30-0400 Body weight 68.4 kg Bella Santos MD Work Phone: [facility] 11-09-2022 09:30-0400 Diastolic blood pressure 78 mm[Hg] Bella Santos MD Work Phone: [facility] 11-09-2022 09:30-0400 Heart rate 56 /min Bella Santos MD Work Phone: [facility] 11-09-2022 09:30-0400 Respiratory rate 16 /min Bella Santos MD Work Phone: [facility] 11-09-2022 09:30-0400 Systolic blood pressure 124 mm[Hg] Bella Santos MD Work Phone: [facility] 06-15-2022 21:40-0500 Body height 170.18 cm [facility] 06-15-2022 21:40-0500 Body temperature 97.8 [degF] [facility] 06-15-2022 21:40-0500 Diastolic blood pressure 83 mm[Hg] [facility] 06-15-2022 21:40-0500 Heart rate 62 /min [facility] 06-15-2022 21:40-0500 Respiratory rate 16 /min [facility] 06-15-2022 21:40-0500 SaO2% (BldA) [Mass fraction] 98 % [facility] 06-15-2022 21:40-0500 Systolic blood pressure 173 mm[Hg] [facility] 05-06-2022 09:22-0500 Body weight 78.93 kg Bella Santos MD Work Phone: [facility] 05-06-2022 09:22-0500 Diastolic blood pressure 82 mm[Hg] Bella Santos MD Work Phone: [facility] 05-06-2022 09:22-0500 Heart rate 60 /min Bella Santos MD Work Phone: [facility] 05-06-2022 09:22-0500 Respiratory rate 16 /min Bella Santos MD Work Phone: [facility] 05-06-2022 09:22-0500 Systolic blood pressure 134 mm[Hg] Bella Santos MD Work Phone: [facility] 04-15-2022 10:50-0500 Body weight 80.11 kg Bella Santos MD Work Phone: [facility] 04-15-2022 10:50-0500 Diastolic blood pressure 78 mm[Hg] Bella Santos MD Work Phone: [facility] 04-15-2022 10:50-0500 Heart rate 82 /min Bella Santos MD Work Phone: [facility] 04-15-2022 10:50-0500 Respiratory rate 16 /min Bella Santos MD Work Phone: [facility] 04-15-2022 10:50-0500 Systolic blood pressure 118 mm[Hg] Bella Santos MD Work Phone: [facility] 03-15-2022 15:19-0500 Body weight 79.83 kg Drake Agarwal MD Work Phone: [facility] 03-15-2022 15:19-0500 Diastolic blood pressure 80 mm[Hg] Drake Agarwal MD Work Phone: [facility] 03-15-2022 15:19-0500 Heart rate 60 /min Drake Agarwal MD Work Phone: [facility] 03-15-2022 15:19-0500 Systolic blood pressure 130 mm[Hg] Drake Agarwal MD Work Phone: [facility] 11-03-2021 09:22-0400 Body weight 76.93 kg Bella Santos MD Work Phone: [facility] 11-03-2021 09:22-0400 Diastolic blood pressure 80 mm[Hg] Belal Santos MD Work Phone: [facility] 11-03-2021 09:22-0400 Heart rate 70 /min Bella Santos MD Work Phone: [facility] 11-03-2021 09:22-0400 Respiratory rate 16 /min Bella Santos MD Work Phone: [facility] 11-03-2021 09:22-0400 Systolic blood pressure 120 mm[Hg] Bella Santos MD Work Phone: [facility] 08-31-2021 10:02-0400 Body weight 78.93 kg Drake Agarwal MD Work Phone: [facility] 08-31-2021 10:02-0400 Diastolic blood pressure 82 mm[Hg] Drake Agarwal MD Work Phone: [facility] 08-31-2021 10:02-0400 Heart rate 56 /min Drake Agarwal MD Work Phone: [facility] 08-31-2021 10:02-0400 SaO2% (BldA) [Mass fraction] 97 % Drake Agarwal MD Work Phone: [facility] 08-31-2021 10:02040 Systolic blood pressure 164 mm[Hg] Drake Agarwal MD Work Phone: [facility] Encounters Encounter Date Encounter Type Care Provider Facility Start: 12-17-2024 End: 12-17-2024 Anticoagulant drug monitoring Drake Agarwal MD Work Phone: Cardiology Comment on above: 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 (Primary Dx); Paroxysmal atrial fibrillation (HCC); Primary hypertension; Other hyperlipidemia Start: 12-17-2024 End: 12-17-2024 ambulatory DRAKE AGARWAL Facility:[facility] Start: 12-13-2024 End: 12-13-2024 Office outpatient visit 25 minutes Bella Santos MD Work Phone: [facility] [place] Comment on above: 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 Bella Santos MD Work Phone: -Physical Therapy Start: 11-15-2024 End: 11-15-[address] Bella Santos MD -Physical Therapy Work Phone: Start: 10-31-[address] Bella Santos MD -Physical Therapy Work Phone: Start: 10-31-2024 End: 10-31-[address] Bella Santos MD Work Phone: -Cat Scan [facility] Start: 10-31-2024 End: 10-31-[address] Kiran Shaffer MD -Cat Scan [facility] Work Phone: Start: 10-31-2024 End: 10-31-2024 ambulatory Bella Santos Facility:[facility] Start: 10-28-2024 End: 10-29-2024 Refill Drake Agarwal MD Work Phone: Cardiology Comment on above: Refill Request Start: 10-25-2024 End: 10-25-2024 Patient encounter procedure Marly Bangmaikol Work Phone: Podiatry Comment on above: Plantar wart (Primar y Dx) Start: 10-25-2024 End: 10-25-2024 ambulatory MARLY MATEUSZ Facility:[facility] Start: 10-18-2024 ambulatory BELLA SANTOS Facil ity:[facility] Start: 10-18-2024 End: 10-18-2024 Subsequent hospital visit by physician [facility] (I-Stat/1.5t) Work Phone: Radiology Comment on above: Chronic left-sided l ow back pain without sciatica [M54.50, G89.29] Start: 10-16-2024 End: 10-16-2024 Refill Bella Santos MD Work Phone: [facility] Comment on above: Refill Request Start: 10-15-2024 End: 10-15-2024 Office outpatient visit 15 minutes Bella Santos MD Work Phone: [facility] Comment on above: Chronic left-sided l ow back pain without sciatica (Primary Dx); Numbness and tingling of left lower extremity Start: 10-15-2024 End: 10-15-2024 ambulatory BELLA SANTOS Facility:[facility] Start: 10-08-2024 End: 10-09-2024 ambulatory Bella Santos MD Work Phone: [facility] Comment on above: Back Start: 10-04-2024 End: 10-04-2024 Patient encounter procedure Marly Child Work Phone: Podiatry Comment on above: Plantar wart (Primar y Dx) Start: 10-04-2024 End: 10-04-2024 ambulatory [facility] Facility:[facility] Start: 09-04-2024 End: 09-04-2024 ambulatory [facility] Facility:[facility] Start: 09-04-2024 End: 09-04-2024 Patient encounter procedure Marly Child Work Phone: Podiatry Comment on above: Plantar wart (Primar y Dx); Porokeratosis Start: 08-14-2024 End: 08-14-2024 ambulatory [facility] Facility:[facility] Start: 08-14-2024 End: 08-14-2024 Patient encounter procedure Marly Chlid Work Phone: Podiatry Comment on above: Plantar wart (Primar y Dx) Start: 07-12-2024 End: 07-12-2024 ambulatory MARLY TESTPIOCHE Facility:[facility] Start: 07-12-2024 End: 07-12-2024 Patient encounter procedure Marly Child Work Phone: Podiatry Comment on above: Plantar wart (Primar y Dx) Start: 07-02-2024 End: 07-03-2024 ambulatory Bella Santos MD Work Phone: [facility] Comment on above: Vitamin D Start: 06-19-2024 End: 06-19-2024 ambulatory [facility] Facility:[facility] Start: 06-19-2024 End: 06-19-2024 Patient encounter procedure Marly Child Work Phone: Podiatry Comment on above: Plantar wart Start: 06-11-2024 End: 06-11-2024 ambulatory BELLA SANTOS Facility:[facility] Start: 06-11-2024 End: 06-11-2024 Patient encounter procedure Bella Santos MD Work Phone: 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; Paroxysmal atrial fibrillation (HCC); Hx of CABG; Benign prostatic hyperplasia without lower urinary tract symptoms; Visit for suture removal; Encounter for immunization; Plantar wart Start: 06-11-2024 End: 06-11-2024 ambulatory BELLA SANTOS Facility:[facility] Start: 05-31-2024 End: 05-31-2024 ambulatory Bella Santos MD Work Phone: [facility] [place] Comment on above: Stitches Start: 05-09-2024 End: 05-11-2024 ambulatory Bella Santos MD Work Phone: [facility] [place] Comment on above: Metropolol Start: 05-08-2024 End: 05-09-2024 ambulatory Drake Agarwal MD Work Phone: Cardiology Comment on above: Metropolol Start: 05-07-2024 End: 05-07-2024 ambulatory DRAKE AGARWAL Facility:[facility] Start: 05-07-2024 End: 05-07-2024 Patient encounter procedure Drake Agarwal MD Work Phone: Cardiology Comment on above: 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 (Primary Dx); Paroxysmal atrial fibrillation (HCC); Primary hypertension; Other hyperlipidemia Start: 04-16-2024 End: 04-17-2024 Refill Bella Santos MD Work Phone: [facility] [place] Comment on above: Refill Request Start: 04-10-2024 End: 04-10-2024 ambulatory Bella Santos MD Work Phone: [facility] [place] Comment on above: Rosuvastatin Start: 03-29-2024 End: 03-29-2024 ambulatory BELLA SANTOS Facility:[facility] Start: 03-29-2024 End: 03-29-2024 Patient encounter procedure Bella Santos MD Work Phone: [facility] [place] Comment on above: Transition of care ( Primary Dx); Hospital discharge follow-up; Chest pain, unspecified type; 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; Essential hypertension; Paroxysmal atrial fibrillation (HCC); Sinus congestion Start: 03-23-2024 End: 03-23-2024 Patient Outreach Kenzie Prasad MA [facility] Comment on above: Transition Of Care Losartan Start: 03-22-2024 End: 03-22-2024 ambulatory Vinay Beavers [facility] Start: 03-21-2024 End: 03-22-2024 ambulatory Tony Garay Facility:[facility] Start: 01-19-2024 End: 01-19-2024 ambulatory Bella Santos Facility:[facility] Start: 11-29-2023 End: 11-29-2023 Patient encounter procedure [facility] Comment on above: Essential hypertensi on (Primary Dx); Paroxysmal atrial fibrillation (HCC); Dyslipidemia; Elevated glucose; GERD without esophagitis; Anxiety and depression; Benign prostatic hyperplasia without lower urinary tract symptoms; Hx of CABG; Rosacea; 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 Comment on above: Heart monitor Start: 06-23-2023 Telephone encounter Mgaen harper APRN.[employer] Work Phone: [facility] Comment on above: Results Start: 06-13-2023 ambulatory Bella adames MD Work Phone: [facility] Comment on above: Medication Start: 06-03-2023 Telephone encounter Drake Agarwal MD Work Phone: Cardiology Comment on above: Patient Update Start: 06-03-2023 End: 06-03-2023 Office outpatient visit 15 minutes Magen Gilman APRN.[employer] Work Phone: [facility] Comment on above: Palpitations (Primar y Dx); Paroxysmal atrial fibrillation (HCC); Lightheadedness Start: 06-02-2023 End: 06-02-2023 Emergency department patient visit Dr. Bella Santos Work Phone: [facility]-Emergency Department Work Phone: Start: 06-02-2023 Telephone encounter Drake Agarwal MD Work Phone: Cardiology Comment on above: Medication Problem ( Heart palpitations) Start: 05-30-2023 ambulatory Bella adames MD Work Phone: [facility] Comment on above: Heart rate Start: 05-06-2023 Non-patient / Non-visit Dr. Tyler Santos Work Phone: [facility] Start: 05-06-2023 Non-patient / Non-visit Dr. Tyler Santos Work Phone: [facility] Work Phone: Start: 05-05-2023 Non-patient / Non-visit Dr. Tyler Santos Work Phone: [facility] Start: 05-05-2023 End: 05-06-2023 Evaluation and management of inpatient Dr. Bella Santos Work Phone: [facility]-Progressive Care Unit Work Phone: Start: 05-05-2023 End: 05-06-[address] Bella Santos Work Phone: [facility] Work Phone: Start: 05-05-2023 Non-patient / Non-visit Dr. Tyler Santos Work Phone: [facility] Work Phone: Start: 04-23-2023 End: 04-23-2023 Emergency department patient visit [facility] Work Phone: Start: 11-09-2022 End: 11-09-2022 Patient encounter procedure Bella Santos MD Work Phone: 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 Comment on above: COVID COVID (Primary Dx) Start: 10-22-2022 End: 10-22-2022 Telemedicine consultation with patient Bella Santos MD Work Phone: [facility] Start: 09-27-2022 [facility] Start: 08-23-2022 Refill Bella adames MD Work Phone: [facility] Comment on above: Refill Request Start: 07-06-2022 End: 07-06-2022 ambulatory [facility] Work Phone: Start: 07-06-2022 End: 07-06-2022 [facility] Start: 06-15-2022 End: 06-15-2022 Emergency department patient visit [facility]Emergency Department Start: 06-11-2022 Registered Recurring [facility] Therapy Start: 06-03-2022 End: 06-03-2022 Patient encounter procedure Marly Child Work Phone: Podiatry Comment on above: Pain in toe of left foot (Primary Dx); Onychomycosis; Pain in toe of right foot; Pes planus of both feet Start: 05-24-2022 Refill Drake lozano MD Work Phone: Cardiology Comment on above: Refill Request Start: 05-17-2022 ambulatory Bella adames MD Work Phone: [facility] [place] Comment on above: Knee Start: 05-12-2022 Telephone encounter Marly Mann Work Phone: Podiatry Comment on above: Appointment Start: 05-06-2022 End: 05-06-2022 Patient encounter procedure Bella Santos MD Work Phone: 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 Comment on above: Future Appointment ( apt today) Start: 04-15-2022 End: 04-15-2022 Patient encounter procedure Bella Santos MD Work Phone: 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; Primary hypertension; Other hyperlipidemia; HARLEY on CPAP; Dyspnea on exertion Start: 11-09-2021 ambulatory Drake lozano MD Work Phone: Cardiology Comment on above: Medications Start: 11-03-2021 End: 11-03-2021 Patient encounter procedure Bella Santos MD Work Phone: [facility] [place] Comment on above: Primary hypertension (Primary Dx); 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; Other hyperlipidemia; Elevated glucose Start: 09-17-2021 ambulatory Bella adames MD Work Phone: [facility] [place] Comment on above: BP Chest Pain Start: 09-16-2021 ambulatory Bella adames MD Work Phone: [facility] [place] Comment on above: Losartan Start: 08-31-2021 End: 08-31-2021 Patient encounter procedure Drake Agarwal MD Work Phone: Cardiology Comment on above: 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 Comment on above: Blood pressure Start: 08-20-2021 Telephone encounter Theron Delong MD Work Phone: Cardiology Comment on above: Appointment Start: 03-02-2021 End: 03-02-2021 Subsequent hospital visit by physician [facility] [employer] Work Phone: Radiology Comment on above: Acute pain of left k nee [M25.562] Start: 01-06-2021 End: 01-06-2021 Subsequent hospital visit by physician [facility] [employer] Work Phone: Radiology Comment on above: Acute left-sided low back pain without sciatica [M54.5] Start: 03-12-2020 End: 03-12-2020 Subsequent hospital visit by physician [facility] [employer] Work Phone: Radiology Comment on above: Chest pain, unspecif ied type [R07.9] Procedures Date Procedure Procedure Detail Performing Clinician Start: 12-13-2024 Adult depression scr eening assessment Bella Santos MD Work Phone: Start: 10-31-2024 Computed tomography of abdomen and pelvis with contrast Dr. Bella Santos MD Work Phone: Start: 10-18-2024 Mri spinal canal lum bar w/o contrast material Bella Santos MD Work Phone: Start: 06-11-2024 PFIZER-BIONTECH COVI D-19 VACCINE AGE 12+ YR (COMIRNATY) Bella Santos MD Work Phone: Start: 11-29-2023 Adult depression scr eening assessment Bella Santos MD Work Phone: Start: 06-02-2023 Plain chest X-ray Dr. Trent Santos Work Phone: Start: 05-05-2023 Plain chest X-ray Dr. Trent Santos Work Phone: Start: 04-23-2023 Plain chest X-ray Start: 06-15-2022 Radiologic examinati on of knee Start: 04-15-2022 Ecg routine ecg w/le ast 12 lds i&r only [facility] Provider Start: 11-03-2021 Adult depression scr eening assessment Bella Santos MD Work Phone: Start: 03-02-2021 Radiologic exam knee complete 4/more views Bella Santos MD Work Phone: Start: 01-06-2021 Radex spine lumbosac ral 2/3 views Angelica De Anda APRN.CNP Work Phone: Start: 10-30-2020 Adult depression scr eening assessment Theron Delong MD Work Phone: Start: 03-12-2020 Radiologic exam ches t 2 views Bella Santos MD Work Phone: Start: 06-22-2019 History of coronary artery bypass grafting Hx of CABG Theron Delong MD Work Phone: Start: 06-05-2019 Antibody screen Comment on above: Performed By: #### T SCR ####[id number] [place], [place] [id number] Start: 02-15-2019 Filiberto snider MD Work Phone: History of coronary artery bypass grafting Hx of CABG Bella Santos MD Work Phone: History of coronary artery bypass grafting Hx of CABG Bella Santos MD Work Phone: History of coronary artery bypass grafting Hx of CABG Bella Santos MD Work Phone: History of coronary artery bypass grafting Hx of CABG Bella Santos MD Work Phone: History of coronary artery bypass grafting Hx of CABG Bella Satnos MD Work Phone: History of coronary artery bypass grafting Hx of CABG Bella Santos MD Work Phone: History of coronary artery bypass grafting Hx of CABG Bella Santos MD Work Phone: Plan of Treatment Date Care Activity Detail Author Start: 12-12-2027 Diabetes Screening Diabetes ScreenSt. [facility] Start: 06-11-2027 [facility]: 05-[facility]2027 LIPID SCREEN LIPID SCREEN [facility] Start: 02-07-2027 Urine microalbumin profile [facility] Start: 11-23-2026 [facility] Start: 10-27-2026 LIPID SCREEN LIPID SCREEN [facility] Start: 05-05-2026 [facility] Start: 05-05-2026 LIPID SCREEN LIPID SCREEN [facility] Start: 12-13-2025 Annual PCP Team Manager Urology lluvia Disease Visit Annual PCP Team Chronic Disease Visit [facility] Start: 12-13-2025 Anxiety Screening Anxiety Screening [facility] Start: 12-13-2025 Depression Screening Depression Scre ening [facility] Start: 12-11-2025 Hepatitis B surface antibody level LDL Cholesterol [facility] Start: 11-04-2025 DIABETES SCREEN DIABETES SCREEN [facility] Start: 10-15-2025 Annual PCP Team Manager Urology lluvia Disease Visit Annual PCP Team Chronic Disease Visit [facility] Start: 09-09-2025 End: 09-09-2025 Patient encounter procedure 09/09/2025 2:20 PM EDT Office Visit Cardiology [address] [place] [address] Drake Agarwal MD [address] [place], [place] [id number] 6 month follow up Cardiology Comment on above: 6 month follow up Start: 06-15-2025 End: 09-14-2025 CBC panel - Blood by Automated count COMPLETE BLOOD COUNT Lab Routine Expected: 06/15/2025 (Approximate), Expires: 09/14/2025 [facility] Comment on above: Expected: 06/15/2025 (Approximate), Expires: 09/14/2025 Start: 06-15-2025 End: 09-14-2025 Comprehensive metabolic 2000 panel - Serum or Plasma COMPREHENSIVE METABOLIC PANEL Lab Routine Dyslipidemia Elevated glucose Expected: 06/15/2025 (Approximate), Expires: 09/14/2025 [facility] Work Phone: Comment on above: Expected: 06/15/2025 (Approximate), Expires: 09/14/2025 Start: 06-15-2025 End: 09-14-2025 Hemoglobin A1c in Blood HEMOGLOBIN A1C Lab Routine Elevated glucose Expected: 06/15/2025 (Approximate), Expires: 09/14/2025 [facility] Comment on above: Expected: 06/15/2025 (Approximate), Expires: 09/14/2025 Start: 06-15-2025 End: 09-14-2025 Lipid 1996 panel - Serum or Plasma LIPID PANEL, FASTING Lab Routine Dyslipidemia Elevated glucose Expected: 06/15/2025 (Approximate), Expires: 09/14/2025 [facility] Comment on above: Expected: 06/15/2025 (Approximate), Expires: 09/14/2025 Start: 06-11-2025 Annual PCP Team Manager Urology lluvia Disease Visit Annual PCP Team Chronic Disease Visit [facility] Start: 06-11-2025 Hepatitis B surface antibody level LDL Cholesterol [facility] Start: 06-11-2025 Hepatitis C screening Hepatitis C [facility] Comment on above: Postponed from 09/07 (Declined at this time) Start: 05-07-2025 BP Controlled (<130/80) BP Controlle d (<130/80) [facility] Start: 05-04-2025 DIABETES SCREEN DIABETES SCREEN [facility] Start: 03-29-2025 Annual PCP Team Manager Urology lluvia Disease Visit Annual PCP Team Chronic Disease Visit [facility] Start: 12-24-2024 Influenza vaccination C [facility] Start: 12-17-2024 End: 12-17-2024 Anticoagulant drug monitoring 12/17/2024 2:00 PM EDT Anticoagulation Visit Cardiology [address] [place], [place] [id number] Drake Agarwal MD [address] [place] [address] 6 month follow up Cardiology Comment on above: 6 month follow up Start: 12-13-2024 End: 12-13-2024 Patient encounter procedure 12/13/2024 9:40 AM EDT Office Visit [facility] [place] [address] [place], [place] [phone] Bella Santos MD [address] [place], [place] [id number] 6 mo f/u Family [facility] Comment on above: 6 mo f/u Start: 12-09-2024 End: 03-10-2025 CBC W Auto Differential panel - Blood COMPLETE BLOOD COUNT AND DIFFERENTIAL Lab Routine Essential hypertension Expected: 12/09/2024 (Approximate), Expires: 03/10/2025 [facility] Comment on above: Expected: 12/09/2024 (Approximate), Expires: 03/10/2025 Start: 12-09-2024 End: 03-10-2025 Comprehensive metabolic 2000 panel - Serum or Plasma COMPREHENSIVE METABOLIC PANEL Lab Routine Essential hypertension Elevated glucose Dyslipidemia Expected: 12/09/2024 (Approximate), Expires: 03/10/2025 [facility] Work Phone: Comment on above: Expected: 12/09/2024 (Approximate), Expires: 03/10/2025 Start: 12-09-2024 Covid-19 Vaccine ( season) Covid-19 Vaccine () [facility] Start: 12-09-2024 End: 03-10-2025 Hemoglobin A1c in Blood HEMOGLOBIN A1C Lab Routine Elevated glucose Expected: 12/09/2024 (Approximate), Expires: 03/10/2025 [facility] Comment on above: Expected: 12/09/2024 (Approximate), Expires: 03/10/2025 Start: 12-09-2024 End: 03-10-2025 Lipid 1996 panel - Serum or Plasma LIPID PANEL BASIC Lab Routine Essential hypertension Elevated glucose Dyslipidemia Expected: 12/09/2024 (Approximate), Expires: 03/10/2025 [facility] Comment on above: Expected: 12/09/2024 (Approximate), Expires: 03/10/2025 Start: 11-28-2024 Annual PCP Team Manager Urology lluvia Disease Visit Annual PCP Team Chronic Disease Visit [facility] Start: 11-28-2024 Anxiety Screening Anxiety Screening [facility] Start: 11-28-2024 BP Controlled (<130/80) BP Controlle d (<130/80) [facility] Start: 11-28-2024 Depression Screening Depression Scre ening [facility] Start: 11-23-2024 Hepatitis B surface antibody level LDL Cholesterol [facility] Start: 10-27-2024 DIABETES SCREEN DIABETES SCREEN [facility] Start: 10-25-2024 End: 10-25-2024 Patient encounter procedure 10/25/2024 10:45 AM EDT Office Visit Podiatry [address] [place], [place] [id number] Marly Child [address] [place] [address] 1 month follow up R foot wart Podiatry Comment on above: 1 month follow up R foot wart Start: 10-22-2024 Influenza vaccination Influenza Vacc ine (#1) [facility] Comment on above: Postponed from 12/24 (Declined at this time) Start: 10-18-2024 End: 10-18-2024 Patient encounter procedure 10/18/2024 3:30 PM EDT Appointment Radiology [address] [place] [id number] Chronic left-sided low back pain without sciatica [M54.50, G89.29] Radiology Comment on above: Chronic left-sided l ow back pain without sciatica [M54.50, G89.29] Start: 10-15-2024 End: 10-15-2024 Patient encounter procedure 10/15/2024 7:[address]T Office Visit [facility] [address] [place] [address] Bella Santos MD [address] [place], [place] [address] back pain (wanting to have MRI) [facility] [place] Comment on above: back pain (wanting t o have MRI) Start: 10-04-2024 End: 10-04-2024 Patient encounter procedure 10/04/2024 10:15 AM EDT Office Visit Podiatry [address] [place] [address] Marly Child [address] [place] [address] 1 month follow up R foot wart Podiatry Comment on above: 1 month follow up R foot wart Start: 09-04-2024 End: 09-04-2024 Patient encounter procedure 09/04/2024 10:30 AM EDT Office Visit Podiatry [address] [place] [address] Marly Child [address] [place] [address] 3 week follow up wart R foot Podiatry Comment on above: 3 week follow up war t R foot Start: 08-15-2024 Annual PCP Team Manager Urology lluvia Disease Visit Annual PCP Team Chronic Disease Visit [facility] Start: 08-15-2024 RSV Vaccine (1 - 1-d ose 60+ series) RSV Vaccine (1 - 1-dose 60+ series) [facility] Comment on above: Postponed from 09/07 (Declined at this time) Start: 08-15-2024 RSV Vaccine (1 - 1-d ose 75+ series) RSV Vaccine (1 - 1-dose 75+ series) [facility] Comment on above: Postponed from 09/07 (Declined at this time) Start: 08-15-2024 Shingrix Vaccine (1 of 2) Ortiz grix Vaccine (1 of 2) [facility] Comment on above: Postponed from 09/07 (Declined at this time) Start: 08-14-2024 End: 08-14-2024 Patient encounter procedure 08/14/2024 10:30 AM EDT Office Visit Podiatry [address] [place] [address] Marly Child [address] [place] [address] 4 week follow up plantar wart R foot Podiatry Comment on above: 4 week follow up giovany ntar wart R foot Start: 07-12-2024 End: 07-12-2024 Patient encounter procedure 07/12/2024 11:30 AM EDT Office Visit Podiatry [address] [place] [address] Marly Child [address] [phone] 3 week follow up plantar wart R foot Podiatry Comment on above: 3 week follow up giovany ntar wart R foot Start: 06-19-2024 End: 06-19-2024 Patient encounter procedure 06/19/2024 3:30 PM EST Office Visit Podiatry [address] [place] [address] Marly Child [address] [phone] Plantar wart [B07.0] Podiatry Comment on above: Plantar wart [B07.0] Start: 06-14-2024 End: 06-14-2024 Patient encounter procedure 06/14/2024 3:00 PM EST Office Visit [facility] [place] [address], [place] [address] Bella Santos MD [address] [place] [address] 6 mo follow up Family [facility] Comment on above: 6 mo follow up Start: 06-12-2024 End: 06-12-2024 Patient encounter procedure 06/12/2024 10:40 AM EST Office Visit [facility] [address] [place] [address] Bella Santos MD [address] [place] [place] [address] 6 mo f/u Family [facility] Comment on above: 6 mo f/u Start: 06-11-2024 End: 06-11-2024 Patient encounter procedure 06/11/2024 6:40 PM EST Office Visit [facility] [address] [place] [address] Bella Santos MD [address] [place] [place] [address] suture removal & 6 mo follow up Family [facility] Comment on above: suture removal & 6 m o follow up Start: 06-03-2024 Annual PCP Team Manager Urology lluvia Disease Visit Annual PCP Team Chronic Disease Visit [facility] Start: 05-31-2024 End: 08-30-2024 CBC W Auto Differential panel - Blood COMPLETE BLOOD COUNT AND DIFFERENTIAL Lab Routine Essential hypertension Paroxysmal atrial fibrillation (HCC) Expected: 05/31/2024 (Approximate), Expires: 08/30/2024 [facility] Comment on above: Expected: 05/31/2024 (Approximate), Expires: 08/30/2024 Start: 05-31-2024 End: 08-30-2024 Comprehensive metabolic 2000 panel - Serum or Plasma COMPREHENSIVE METABOLIC PANEL Lab Routine Essential hypertension Dyslipidemia Elevated glucose Expected: 05/31/2024 (Approximate), Expires: 08/30/2024 [facility] Work Phone: Comment on above: Expected: 05/31/2024 (Approximate), Expires: 08/30/2024 Start: 05-31-2024 End: 08-30-2024 Hemoglobin A1c in Blood HEMOGLOBIN A1C Lab Routine Elevated glucose Expected: 05/31/2024 (Approximate), Expires: 08/30/2024 [facility] Comment on above: Expected: 05/31/2024 (Approximate), Expires: 08/30/2024 Start: 05-31-2024 End: 08-30-2024 Lipid 1996 panel - Serum or Plasma LIPID PANEL BASIC Lab Routine Essential hypertension Dyslipidemia Elevated glucose Hx of CABG Expected: 05/31/2024 (Approximate), Expires: 08/30/2024 [facility] Comment on above: Expected: 05/31/2024 (Approximate), Expires: 08/30/2024 Start: 05-12-2024 Annual PCP Team Manager Urology lluvia Disease Visit Annual PCP Team Chronic Disease Visit [facility] Start: 05-12-2024 BP Controlled (<130/80) BP Controlle d (<130/80) [facility] Start: 05-12-2024 Hepatitis C screening Hepatitis C Ma aaron [facility] Comment on above: Postponed from 09/07 (Declined at this time) Start: 05-07-2024 End: 05-07-2024 Patient encounter procedure 05/07/2024 8:20 AM EST Office Visit Cardiology [address] [phone] Drake Agarwal MD [address] [place] [address] 6 month check Cardiology Comment on above: 6 month check Start: 05-05-2024 DIABETES SCREEN DIABETES SCREEN [facility] Start: 05-05-2024 Hepatitis B surface antibody level LDL Cholesterol [facility] Start: 04-25-2024 Advance Directive Discussion Advance Directive Discussion [facility] Start: 04-25-2024 Medicare Advantage A nnual Wellness Visit Medicare Advantage Annual Wellness Visit [facility] Start: 03-29-2024 End: 03-29-2024 Patient encounter procedure 03/29/2024 10:00 AM EST Office Visit [facility] [place] [address], [place] [phone] Bella Santos MD [address] [place], [place] [phone] follow up [facility] heart issue [facility] [place] Comment on above: follow up [facility] heart issue Start: 02-16-2024 Colonoscopy COLONOSCOPY [facility] Start: 02-16-2024 COLORECTAL CANCER SCREENING COLORECTAL CANCER SCREENING [facility] Start: 12-25-2023 Covid-19 Vaccine () Covid-19 Vaccine () [facility] Start: 12-25-2023 Influenza vaccination C [facility] Start: 11-29-2023 End: 11-29-2023 Patient encounter procedure 11/29/2023 10:40 AM EDT Office Visit [facility] [place] [address] [facility] [place], [place] [phone] Bella Santos MD [address] [place] [place] [address] 3 mo f/u [facility] [place] Comment on above: 3 mo f/u Start: 11-22-2023 End: 11-22-2023 Patient encounter procedure 11/22/2023 9:40 AM EDT Office Visit [facility] [place] [address] [facility] [place] [address] Bella Santos MD [address] [facility] [place] [address] 3 mo f/u [facility] [place] Comment on above: 3 mo f/u Start: 11-15-2023 End: 02-14-2024 Comprehensive metabolic 2000 panel - Serum or Plasma COMPREHENSIVE METABOLIC PANEL Lab Routine Essential hypertension Elevated glucose Dyslipidemia Expected: 11/15/2023 (Approximate), Expires: 02/14/2024 [facility] Work Phone: Comment on above: Expected: 11/15/2023 (Approximate), Expires: 02/14/2024 Start: 11-15-2023 End: 02-14-2024 Hemoglobin A1c in Blood HEMOGLOBIN A1C Lab Routine Elevated glucose Expected: 11/15/2023 (Approximate), Expires: 02/14/2024 [facility] Comment on above: Expected: 11/15/2023 (Approximate), Expires: 02/14/2024 Start: 11-15-2023 End: 02-14-2024 Lipid 1996 panel - Serum or Plasma LIPID PANEL BASIC Lab Routine Essential hypertension Elevated glucose Dyslipidemia 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 Expected: 11/15/2023 (Approximate), Expires: 02/14/2024 [facility] Comment on above: Expected: 11/15/2023 (Approximate), Expires: 02/14/2024 Start: 11-10-2023 ANNUAL PCP TEAM MANAGER OF TRAINING [place] DISEASE VISIT ANNUAL PCP TEAM CHRONIC DISEASE VISIT [facility] Start: 11-10-2023 BP CONTROLLED (<130/80) BP CONTROLLE D (<130/80) [facility] Start: 11-05-2023 Hepatitis B surface antibody level LDL CHOLESTEROL [facility] Start: 10-24-2023 End: 10-24-2023 Patient encounter procedure 10/24/2023 4:20 PM EDT Office Visit Cardiology [address] [place] [phone] Drake Agarwal MD [address] [facility] [address] [place], [place] [phone] 6 month follow up Cardiology Comment on above: 6 month follow up Start: 10-23-2023 ANNUAL PCP TEAM MANAGER OF TRAINING [place] DISEASE VISIT ANNUAL PCP TEAM CHRONIC DISEASE VISIT [facility] Start: 10-23-2023 Influenza vaccination Influenza Vacc ine (#1) [facility] Comment on above: Postponed from 12/24 (Declined at this time) Start: 06-02-2023 [facility] Start: 06-02-2023 [facility] Start: 05-16-2023 Covid-19 Vaccine ( season) Covid-19 Vaccine ( season) [facility] Start: 05-12-2023 End: 07-12-2023 CBC W Auto Differential panel - Blood CBC + DIFF Lab Routine Essential hypertension 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 Expected: 05/12/2023 (Approximate), Expires: 07/12/2023 [facility] Work Phone: Comment on above: Expected: 05/12/2023 (Approximate), Expires: 07/12/2023 Start: 05-12-2023 End: 07-12-2023 Comprehensive metabolic 2000 panel - Serum or Plasma COMP METABOLIC PANEL Lab Routine Essential hypertension 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 Other hyperlipidemia Elevated glucose Expected: 05/12/2023 (Approximate), Expires: 07/12/2023 [facility] Work Phone: Comment on above: Expected: 05/12/2023 (Approximate), Expires: 07/12/2023 Start: 05-12-2023 End: 07-12-2023 Hemoglobin A1c in Blood HGB A1C Lab Routine Elevated glucose Expected: 05/12/2023 (Approximate), Expires: 07/12/2023 [facility] Work Phone: Comment on above: Expected: 05/12/2023 (Approximate), Expires: 07/12/2023 Start: 05-12-2023 End: 07-12-2023 Lipid 1996 panel - Serum or Plasma LIPID PANEL BASIC Lab Routine Essential hypertension 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 Other hyperlipidemia Expected: 05/12/2023 (Approximate), Expires: 07/12/2023 [facility] Work Phone: Comment on above: Expected: 05/12/2023 (Approximate), Expires: 07/12/2023 Start: 05-06-2023 Patient discharge [facility] Start: 05-06-2023 Notification of physician [facility] Start: 05-06-2023 Patient education [facility] Start: 05-06-2023 Provision of activit y privileges [facility] Start: 05-06-2023 Pulse taking [facility] Start: 05-06-2023 Taking patient vital signs [facility] Start: 05-06-2023 Wound care [facility] Start: 05-06-2023 [facility] Start: 05-06-2023 ANNUAL PCP TEAM MANAGER OF TRAINING [place] DISEASE VISIT ANNUAL PCP TEAM CHRONIC DISEASE VISIT [facility] Start: 05-06-2023 HEPATITIS C SCREENING HEPATITIS C [facility] Comment on above: Postponed from 09/07 (Declined at this time) Start: 05-06-2023 Catheterization of vein [facility] Start: 05-06-2023 Medication not administered [facility] Start: 05-06-2023 Notification of physician [facility] Start: 05-06-2023 [facility] Start: 05-05-2023 Assessment of risk o f venous thromboembolism [facility] Start: 05-05-2023 Chart related administrative procedure [facility] Start: 05-05-2023 Continuous positive airway pressure ventilation treatment [facility] Start: 05-05-2023 Inhalation therapy procedure [facility] Start: 05-05-2023 Insertion of cathete r into peripheral vein [facility] Start: 05-05-2023 Introduction of urin rohini catheter [facility] Start: 05-05-2023 Measuring intake and output [facility] Start: 05-05-2023 Oxygen therapy [facility] Start: 05-05-2023 Providing care accor ding to standard [facility] Start: 05-05-2023 Provision of activit y privileges [facility] Start: 05-05-2023 Referral to quality assurance director [facility] Start: 05-05-2023 Tobacco use cessatio n education [facility] Start: 05-05-2023 [facility] Start: 05-05-2023 Following clinical pathway protocol [facility] Start: 05-05-2023 Catheterization of vein [facility] Start: 05-05-2023 Medication not administered [facility] Start: 05-05-2023 Notification of physician [facility] Start: 05-05-2023 [facility] Start: 05-05-2023 Admission procedure [facility] Start: 05-04-2023 Hepatitis B surface antibody level LDL CHOLESTEROL [facility] Start: 04-25-2023 Advance Directive Discussion Advance Directive Discussion [facility] Start: 04-25-2023 Behavioral Health Screening Behavioral Health Screening [facility] Start: 04-25-2023 Depression Assessment Depression Ass essment [facility] Start: 04-23-2023 [facility] Start: 04-15-2023 ANNUAL PCP TEAM MANAGER OF TRAINING [place] DISEASE VISIT ANNUAL PCP TEAM CHRONIC DISEASE VISIT [facility] Start: 04-15-2023 BP CONTROLLED (<130/80) BP CONTROLLE D (<130/80) [facility] Start: 03-11-2023 Covid-19 Vaccine ( season) Covid-19 Vaccine ( season) [facility] Start: 12-24-2022 Influenza vaccination C [facility] Start: 11-03-2022 Adult depression screening assessment DEPRESSION SCREENING [facility] Start: 11-03-2022 ANNUAL PCP TEAM MANAGER OF TRAINING [place] DISEASE VISIT ANNUAL PCP TEAM CHRONIC DISEASE VISIT [facility] Start: 11-03-2022 End: 01-03-2023 Comprehensive metabolic 2000 panel - Serum or Plasma COMP METABOLIC PANEL Lab Routine Other hyperlipidemia Elevated glucose Essential hypertension Expected: 11/03/2022 (Approximate), Expires: 01/03/2023 [facility] Work Phone: Comment on above: Expected: 11/03/2022 (Approximate), Expires: 01/03/2023 Start: 11-03-2022 End: 01-03-2023 Hemoglobin A1c in Blood HGB A1C Lab Routine Elevated glucose Expected: 11/03/2022 (Approximate), Expires: 01/03/2023 [facility] Work Phone: Comment on above: Expected: 11/03/2022 (Approximate), Expires: 01/03/2023 Start: 11-03-2022 End: 01-03-2023 Lipid 1996 panel - Serum or Plasma LIPID PANEL BASIC Lab Routine Other hyperlipidemia Essential hypertension Expected: 11/03/2022 (Approximate), Expires: 01/03/2023 [facility] Work Phone: Comment on above: Expected: 11/03/2022 (Approximate), Expires: 01/03/2023 Start: 10-27-2022 Hepatitis B surface antibody level LDL CHOLESTEROL [facility] Start: 10-22-2022 Influenza vaccination INFLUENZA (#1) [facility] Comment on above: Postponed from 12/24 (Declined at this time) Start: 07-20-2022 BP CONTROLLED (<130/80) BP CONTROLLE D (<130/80) [facility] Start: 05-06-2022 End: 07-06-2022 CBC panel - Blood by Automated count CBC Lab Routine Primary hypertension 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 Expected: 05/06/2022 (Approximate), Expires: 07/06/2022 [facility] Work Phone: Comment on above: Expected: 05/06/2022 (Approximate), Expires: 07/06/2022 Start: 05-06-2022 End: 07-06-2022 Comprehensive metabolic 2000 panel - Serum or Plasma COMP METABOLIC PANEL Lab Routine Primary hypertension 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 Other hyperlipidemia Elevated glucose Expected: 05/06/2022 (Approximate), Expires: 07/06/2022 [facility] Work Phone: Comment on above: Expected: 05/06/2022 (Approximate), Expires: 07/06/2022 Start: 05-06-2022 End: 07-06-2022 Hemoglobin A1c in Blood HGB A1C Lab Routine Elevated glucose Expected: 05/06/2022, Expires: 07/06/2022 [facility] Work Phone: Comment on above: Expected: 05/06/2022 , Expires: 07/06/2022 Start: 05-06-2022 End: 07-06-2022 Lipid 1996 panel - Serum or Plasma LIPID PANEL BASIC Lab Routine Primary hypertension 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 Other hyperlipidemia Expected: 05/06/2022 (Approximate), Expires: 07/06/2022 [facility] Work Phone: Comment on above: Expected: 05/06/2022 (Approximate), Expires: 07/06/2022 Start: 05-05-2022 ANNUAL PCP TEAM MANAGER OF TRAINING [place] DISEASE VISIT ANNUAL PCP TEAM CHRONIC DISEASE VISIT [facility] Start: 05-05-2022 Hepatitis B surface antibody level LDL CHOLESTEROL [facility] Start: 04-25-2022 ADVANCE DIRECTIVE DISCUSSION ADVANCE DIRECTIVE DISCUSSION [facility] Start: 03-02-2022 HEPATITIS C SCREENING HEPATITIS C [facility] Comment on above: Postponed from 09/07 (Declined at this time) Start: 01-24-2022 COVID-19 VACCINE (5 - Booster for Moderna series) COVID-19 VACCINE (5 - Booster for Moderna series) [facility] Start: 01-24-2022 COVID-19 VACCINE (5 - Moderna series) COVID-19 VACCINE (5 - Moderna series) [facility] Start: 12-24-2021 Influenza vaccination C [facility] Start: 10-30-2021 Adult depression screening assessment DEPRESSION SCREENING [facility] Start: 2021 RSV Vaccine (1 - 1-d ose 75+ series) RSV Vaccine (1 - 1-dose 75+ series) [facility] Start: 08-31-2021 End: 10-31-2021 Alanine aminotransferase [Enzymatic activity/volume] in Serum or Plasma ALT/SGPT Lab Routine Dyslipidemia Expected: 08/31/2021, Expires: 10/31/2021 [facility] Work Phone: Comment on above: Expected: 08/31/2021 , Expires: 10/31/2021 Start: 08-31-2021 End: 10-31-2021 Aspartate aminotransferase [Enzymatic activity/volume] in Serum or Plasma AST/SGOT BLD Lab Routine Dyslipidemia Expected: 08/31/2021, Expires: 10/31/2021 [facility] Work Phone: Comment on above: Expected: 08/31/2021 , Expires: 10/31/2021 Start: 08-31-2021 End: 10-31-2021 Basic metabolic 2000 panel - Serum or Plasma BASIC METABOLIC PNL Lab Routine Primary hypertension Expected: 08/31/2021, Expires: 10/31/2021 [facility] Work Phone: Comment on above: Expected: 08/31/2021 , Expires: 10/31/2021 Start: 08-31-2021 End: 10-31-2021 LIPID PANEL BASIC LIPID PANEL BASIC Lab Routine Dyslipidemia Expected: 08/31/2021, Expires: 10/31/2021 [facility] Work Phone: Comment on above: Expected: 08/31/2021 , Expires: 10/31/2021 Start: 06-26-2021 COVID-19 VACCINE (4 - Booster for Moderna series) COVID-19 VACCINE (4 - Booster for Moderna series) [facility] Start: 04-25-2021 ADVANCE DIRECTIVE DISCUSSION ADVANCE DIRECTIVE DISCUSSION [facility] Start: 04-25-2021 DEPRESSION ASSESSMENT DEPRESSION ASS ESSMENT [facility] Start: 2006 RSV Vaccine (1 - 1-d ose 60+ series) RSV Vaccine (1 - 1-dose 60+ series) [facility] Start: 1996 SHINGRIX VACCINE (1 of 2) ORTIZ GRIX VACCINE (1 of 2) [facility] Start: 09-08-1991 COLOGUARD (FIT-DNA) COLOGUARD (FIT-D NA) [facility] Start: 09-08-[address] COLONOGRAPHY [facility] Start: 09-08-1991 FECAL OCCULT BLOOD FECAL OCCULT BLOO D [facility] Start: 09-08-1991 SIGMOIDOSCOPY SIGMOIDOSCOPY [facility] Start: 1963 BP CONTROLLED (<130/80) BP CONTROLLE D (<130/80) [facility] Start: 1963 HEPATITIS C SCREENING HEPATITIS C [facility] Start: 1964 Hepatitis C screening Hepatitis C [facility] Start: 1945 ABDOMINAL AORTIC ANE URYSM SCREENING ABDOMINAL AORTIC ANEURYSM SCREENING [facility] End: 03-10-2023 ECG COMPLETE ECG COMPLETE ECG Routine Screening for ischemic heart disease 1 Occurrences starting 03/10/2022 until 03/10/2023 [facility] Work Phone: Comment on above: 1 Occurrences starti ng 03/10/2022 until 03/10/2023 End: 04-15-2023 ECG COMPLETE ECG COMPLETE ECG Routine Tachycardia 1 Occurrences starting 04/15/2022 until 04/15/2023 [facility] Work Phone: Comment on above: 1 Occurrences starti ng 04/15/2022 until 04/15/2023 ECG COMPLETE ECG COMPLETE ECG 04/15/2022 11:24 AM EST [facility] End: 11-14-2025 MR Lumbar spine WO contrast MRI LUMBAR SPINE WO IVCON Radiology Routine Chronic left-sided low back pain without sciatica 1 Occurrences starting 10/15/2024 until 11/14/2025 [facility] Work Phone: Comment on above: 1 Occurrences starti ng 10/15/2024 until 11/14/2025 OUTSIDE VENDOR CARDI AC OUTPATIENT EXTENDED RHYTHM RECORDING (WITHOUT TELEMETRY) OUTSIDE VENDOR CARDIAC OUTPATIENT EXTENDED RHYTHM RECORDING (WITHOUT TELEMETRY) Holter Routine Palpitations Lightheadedness Ordered: 06/03/2023 [facility] Work Phone: Comment on above: Ordered: 06/03/2023 Patient Education [facility] Work Phone: Patient referral [facility] Work Phone: [facility] Immunizations Immunization Date Immunization Notes Care Provider [facility] 06-11-2024 COVID-19 vaccine, ag e 12+ yr ([facility]) Bella Santos MD Work Phone: [facility] 01-14-2023 COVID-19 original vaccine, booster dose, monovalent (MODERNA) Bella Santos MD Work Phone: [facility] 01-14-2023 COVID-19 vaccine, ag e 12+ yr, season (MODERNA) Bella Santos MD Work Phone: [facility] 07-04-2020 COVID-19 vaccine, fu ll dose (MODERNA) Theron Delong MD Work Phone: [facility] 06-06-2020 COVID-19 vaccine, fu ll dose (MODERNA) Theron Delong MD Work Phone: [facility] 01-15-2019 influenza virus vacc ine, unspecified formulation Bella Santos MD Work Phone: [facility] 02-07-2017 tetanus toxoid, redu zev diphtheria toxoid, and acellular pertussis vaccine, adsorbed Theron Delong MD Work Phone: [facility] 02-01-2017 pneumococcal polysaccharide vaccine, 23 valkatie Delong MD Work Phone: [facility] Work Phone: 01-27-2016 pneumococcal conjuga te vaccine, 13 bhavya Delong MD Work Phone: [facility] Work Phone: Payers Date Payer Category Payer Self-pay [id number] 2021 Medicare AETNA MEDICARE A ETNA MEDICARE PPO [id number] 2021-Present [phone] [address] [place] [address] [facility] [id number] 2021 Medicare (Managed Care) AETNA CO DICARE [id number] 2018 Medicare [id number] 2013 Private Health Insurance 101 [id number] Unknown [id number] Unknown [id number] Unknown [id number] Unknown [id number] Unknown [id number] Unknown [id number] Unknown [id number] Social History Date Type Detail Facility Start: 03-15-2022 End: 03-29-2024 Tobacco smoking status NHIS Ex-smoker [facility] Work Phone: Start: 12-27-1969 End: 12-27-1976 History of tobacco use Current smoker [facility] Work Phone: Start: 12-27-1969 End: 12-27-1976 History of tobacco use Cigarette Smoker [facility] Work Phone: Start: 07-20-2021 End: 12-17-2024 Alcohol intake Current drinker of alcohol (finding) [facility] Start: 04-30-2021 End: 10-22-2022 History SDOH Alcohol Frequency 3 [facility] Start: 04-30-2021 End: 10-22-2022 History SDOH Alcohol Std Drinks 1 [facility] Start: 04-30-2021 End: 10-22-2022 History SDOH Social Connections Phone 2 [facility] Start: 04-30-2021 End: 10-22-2022 History SDOH Social Connections Get Together 4 [facility] Start: 04-30-2021 End: 10-22-2022 History SDOH Physical Activity DPW 5 [facility] Start: 04-30-2021 End: 10-22-2022 History SDOH Physical Activity MPS 9 [facility] Start: 04-23-2019 Education 19 [facility] Start: 1945 Sex Assigned At Not on file [facility] Start: 02-11-2020 End: 03-15-2022 Exposure to SARS-CoV-2 (event) Not sure [facility] Start: 03-15-2022 End: 10-22-2022 Cigarettes smoked current (pack per day) - Reported 1 [facility] Start: 03-15-2022 End: 03-29-2024 Tobacco use and exposure Smokeless tobacco non-user [facility] Start: 03-15-2022 Tobacco Comment on and off [facility] Start: 06-15-2022 End: 06-02-2023 Tobacco smoking status NHIS Unknown if ever smoked [facility] Start: 11-27-2019 Occasional [facility] Start: 11-27-2019 None [facility] Start: 11-27-2019 Spouse/ Significant Other [facility] Start: 05-22-2019 Non-smoker [facility] Start: 1945 Sex Assigned At Male [facility] Start: 10-22-2022 History SDOH Physical Activity DPW 7 [facility] Start: 10-22-2022 End: 12-10-2024 Social connection and isolation panel [facility] Do you belong to any clubs or organizations such as anabaptist groups, [employer], [employer] or athletic groups, or school groups? Yes [facility] Are you now , , , , never or living with a partner? [facility] How often to you hav e a drink containing alcohol? 2-4 times a month [facility] How many standard dr inks containing alcohol do you have on a typical day? 1 or 2 [facility] How often do you hav e 6 or more drinks on 1 occasion? Never [facility] Start: 03-26-2012 How hard is it for you to pay for the very basics like food, housing, medical care, and heating Not hard at all [facility] Do you feel stress - tense, restless, nervous, or anxious, or unable to sleep at night because your mind is troubled all the time - these days [OSQ] To some extent [facility] (I/We) worried wheth er (my/our) food would run out before (I/we) got money to buy more. Never true [facility] At any time in the p ast 12 months, were you homeless or living in halfway [including now]? No [facility] How often to you hav e a drink containing alcohol? 4 or more times a week [facility] Do you feel stress - tense, restless, nervous, or anxious, or unable to sleep at night because your mind is troubled all the time - these days [OSQ] Not at all [facility] How often to you hav e a drink containing alcohol? 2-3 time sa week [facility] Are you now , , , , never or living with a partner? [facility] Medical Equipment Procedure Code Equipment Code Equipment Original Text Equipment Identifier Dates Parnell Thk1.65mm Rectangle Ptfe 4.5x6mm Cardiovascular [facility] - [id number] Start: 06-06-2019 Functional Status Date Assessment Result Facility 05-06-2023 Functional status Bedrest [facility] Work Phone: 06-11-2019 Are you deaf, or do you have serious difficulty hearing No 06/11/2019 5:41 PM Keya Hwang RN No [facility] 06-11-2019 Are you blind, or do you have serious difficulty seeing, even when wearing glasses No 06/11/2019 5:41 PM Keya Hwang, TIMOTHY No [facility] 06-11-2019 Do you have serious difficulty walking or climbing stairs No 06/11/2019 5:41 PM Keya Hwang, TIMOTHY No [facility] 06-11-2019 Do you have difficul ty dressing or bathing No 06/11/2019 5:41 PM Keya Hwang, TIMOTHY No [facility] 06-11-2019 Because of a physica l, mental, or emotional condition, do you have difficulty doing errands alone such as visiting a physician's office or shopping No 06/11/2019 5:41 PM Keya Hwang RN No [facility] Mental Status Date Assessment Result Facility 06-02-2023 Cognitive function Voice/Name [facility] Work Phone: 05-06-2023 Cognitive function Voice/Name [facility] Work Phone: 04-23-2023 Cognitive function Awake;Alert;A ppropriate; Follows Commands [facility] Work Phone: 06-11-2019 Because of a physica l, mental, or emotional condition, do you have serious difficulty concentrating, remembering, or making decisions No 06/11/2019 5:41 PM Keya Hwang RN No [facility] Clinical Notes 06-05-2019 to 12-17-2024 Drake Agarwal MD - 12/17/2024 2:00 PM Bella Harmon MD - 12/13/2024 9:54 AM EDTPatient Instructions Note Date & Type Note Facility 12-17-2024 History of Present illness Narrative Images from the original note were not included. [facility] CARDIOLOGY Cardiology ([facility]) [address] [facility] [id number] OUTPATIENT VISIT DATE 12/17/2024 PRIMARY CARE PHYSICIAN: Bella Santos [address] [place] [address] HISTORY OF PRESENT ILLNESS: Mr. Loaiza is a 79 year old gentleman with a history of coronary artery disease prior coronary bypass grafting (May 2019), paroxysmal atrial fibrillation, hypertension, and dyslipidemia who presents for routine follow-up. Unfortunately, his in February. Stress and ended up in the emergency room the day before . He ruled out for an acute coronary syndrome. They discussed possibly forming a stress test. Patient had declined. Since then, he has been doing well. He has occasional episodes of chest pain. Although, they are not reproducible with exertion. He hiked 2.3 miles yesterday and had no difficulties completing his hike. He denied chest pain, chest pressure, or shortness of breath. He has not had palpitations, lightheadedness, dizziness, or syncope. PAST MEDICAL [...] Social History Tobacco Use Smoking status: Former Current packs/day: 0.00 Average packs/day: 1 pack/day for 7.0 years (7.0 ttl pk-yrs) Types: Cigarettes Start date: 12/27/1969 Quit date: 12/27/1976 Years since quittin.0 Smokeless tobacco: Never Tobacco comments: on and off Vaping Use Vaping status: Never Used Substance Use Topics Alcohol use: Yes Comment: occasional Drug use: Yes Types: Marijuana Comment: Occassionally FAMILY HISTORY Problem Relation Age of Onset other (No CAD) Father Cancer Mother , lung Cancer Brother thyroid ALLERGIES: ALLERGIES No Known Allergies MEDICATIONS: metoprolol tartrate, short acting, (LOPRESSOR) 25 mg tablet Take 1 tablet by mouth two times a day. losartan (COZAAR) 50 mg tablet Take 1 tablet by mouth once daily. magnesium oxide 400 mg magnesium cap Take 1 capsule by mouth once daily. Cholecalciferol, Vitamin D3, 50 mcg (2,000 unit) cap Take 1 capsule by mouth once daily. glucosamine HCl/chondroitin harris (GLUCOSAMINE-CHONDROITIN ORAL) Take 1 tablet by mouth two times a day. rosuvastatin (CRESTOR) 40 mg tablet Take 1 tablet by mouth daily at bedtime. ELIQUIS 5 mg tab(s) Take 1 tablet by mouth two times a day. Docusate Sodium 100 mg tab Take by mouth. TURMERIC ORAL Take by mouth once daily. doxycycline 20 mg tablet Take 1 tablet by mouth twice daily. tamsulosin ER (FLOMAX) 0.4 mg Take 1 capsule by mouth twice daily. Dr. Shaffer. acetaminophen (TYLENOL) 500 mg tablet Take 2 tablets by mouth every 6 hours. aspirin, enteric coated (ASPIRIN, ENTERIC COATED) 81 mg EC tablet Take 2 tablets by mouth once daily. [DISCONTINUED] furosemide (LASIX) 20 mg tablet Take 1 tablet by mouth once daily. (Patient not taking: Reported on 10/15/2024) REVIEW OF SYSTEMS: Review of Systems Constitutional: [...] Psychiatric/Behavioral: Negative for depression. PHYSICAL EXAMINATION: BP 126/70 Pulse 66 Resp 12 Ht 5' 7.5 (1.72m) Wt 171 lb (77.6kg) SpO2 94% BMI 26.37 kg/(m^2). General: Very pleasant gentleman sitting comfortable no apparent distress. He is alert and oriented x3 HEENT: Carotid upstrokes are brisk bilaterally without bruits no JVD appreciated. Pulmonary: Lungs are clear no rales, wheezes, rhonchi Cardiovascular: Normal S1, S2 with regular rate and rhythm. No murmurs, rubs, or gallops Extremities: Warm, well-perfused, no lower extremity edema. 2+ distal pulses CARDIOVASCULAR MEDICINE TESTING: Cardiac Catheterization [facility] 06/05/2019: POST PROCEDURE DIAGNOSIS: [place] Coronary Artery Disease in the LAD (Severe) 99% proximal, RCA (UI SOFTWARE DEVELOPER) and LCX (UI SOFTWARE DEVELOPER) Normal carotid arteries Echocardiogram 05/02/2023 - Exam indication: Ascending aortic aneurysm - The left ventricle is normal in size. Left ventricular systolic function is normal. EF = 55 5% (2D biplane) Grade I left ventricular diastolic dysfunction. - The right ventricle is normal in size. Right ventricular systolic function is normal. - The visualized aorta is dilated with a maximal dimension of 4.3 cm. - There is mild aortic insufficiency present. - There is mild pulmonic insufficiency present. - Exam was compared with the prior CC echocardiographic exam performed on 06/05/2019, there has been very little change. Echocardiogram 06/05/2019 CONCLUSIONS: - Technically difficult exam [...] prior OUTSIDE echocardiographic exam performed on 05/2019 [facility] / - 06/17/2023: Patient had a min HR of 45 bpm, max HR of 169 bpm, and avg HR of 62 bpm. Predominant underlying rhythm was Sinus Rhythm. 2 Supraventricular Tachycardia runs occurred, the run with the fastest interval lasting 10 beats with a max rate of 169 bpm (avg 135 bpm); the run with the fastest interval was also the longest. Isolated SVEs were rare (<1.0%), SVE Couplets were rare (<1.0%), and SVE Triplets were rare (<1.0%). Isolated VEs were rare (<1.0%), and no VE Couplets or VE Triplets were present. IMPRESSION: Mr. Loaiza is a 79 year old gentleman with a history of coronary artery disease prior coronary bypass grafting (MOHR-LAD, SVG-OM, SVG-PDA May 2019). Catheterization April 2023 [facility] demonstrating patent MOHR-LAD, SVG-OM. He is also treated for paroxysmal atrial fibrillation, hypertension, and dyslipidemia. He presents to the office for routine follow-up. PLAN AND RECOMMENDATIONS: 1. 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 - ICD9: 414.05, ICD10: I25.810 (primary diagnosis) Patient with atypical chest pain symptoms. Unlikely secondary to obstructive coronary disease. Have recommended continuing medical therapy and risk factor modification. If there is escalation of symptoms may consider repeat stress test - METOPROLOL TARTRATE 25 MG TABLET 2. Paroxysmal atrial fibrillation (HCC) - ICD9: 427.31, ICD10: I48.0 Maintaining sinus rhythm. He is on Eliquis for stroke risk reduction - METOPROLOL TARTRATE 25 MG TABLET 3. Primary hypertension - ICD9: 401.9, ICD10: I10 Adequate controlled on current regimen 4. Other hyperlipidemia - ICD9: 272.4, ICD10: E78.49 Maintained on statin 40 mg daily. Blood work from November 2023 was reviewed. LDL cholesterol 64 mg/dL Drake Agarwal MD documented in this encounter [facility] 12-17-2024 Note HNO ID: [id number] Author: DRAKE AGARWAL MD Service: ? Author Type: Physician Type: Progress Notes Filed: 12/18/2024 12:45 Note Text: [facility] CARDIOLOGY Cardiology ([facility]) [address] [facility] [id number] OUTPATIENT VISIT DATE 12/17/2024 PRIMARY CARE PHYSICIAN: Bella Santos [address] [place] [address] HISTORY OF PRESENT ILLNESS: Mr. Loaiza is a 79 year old gentleman with a history of coronary artery disease prior coronary bypass grafting (May 2019), paroxysmal atrial fibrillation, hypertension, and dyslipidemia who presents for routine follow-up. Unfortunately, his in February. Stress and ended up in the emergency room the day before [facility]. He ruled out for an acute coronary syndrome. They discussed possibly forming a stress test. Patient had declined. Since then, he has been doing well. He has occasional episodes of chest pain. Although, they are not reproducible with exertion. He hiked 2.3 miles yesterday and had no difficulties completing his hike. He denied chest pain, chest pressure, or shortness of breath. He has not had palpitations, lightheadedness, dizziness, or syncope. PAST MEDICAL [...] Social History Tobacco Use Smoking status: Former Current packs/day: 0.00 Average packs/day: 1 pack/day for 7.0 years (7.0 ttl pk-yrs) Types: Cigarettes Start date: 12/27/1969 Quit date: 12/27/1976 Years since quittin.0 Smokeless tobacco: Never Tobacco comments: on and off Vaping Use Vaping status: Never Used Substance Use Topics Alcohol use: Yes Comment: occasional Drug use: Yes Types: Marijuana Comment: Occassionally FAMILY HISTORY Problem Relation Age of Onset other (No CAD) Father Cancer Mother , lung Cancer Brother thyroid ALLERGIES: ALLERGIES No Known Allergies MEDICATIONS: metoprolol tartrate, short acting, (LOPRESSOR) 25 mg tablet Take 1 tablet by mouth two times a day. losartan (COZAAR) 50 mg tablet Take 1 tablet by mouth once daily. magnesium oxide 400 mg magnesium cap Take 1 capsule by mouth once daily. Cholecalciferol, Vitamin D3, 50 mcg (2,000 unit) cap Take 1 capsule by mouth once daily. glucosamine HCl/chondroitin harris (GLUCOSAMINE-CHONDROITIN ORAL) Take 1 tablet by mouth two times a day. rosuvastatin (CRESTOR) 40 mg tablet Take 1 tablet by mouth daily at bedtime. ELIQUIS 5 mg tab(s) Take 1 tablet by mouth two times a day. Docusate Sodium 100 mg tab Take by mouth. TURMERIC ORAL Take by mouth once daily. doxycycline 20 mg tablet Take 1 tablet by mouth twice daily. tamsulosin ER (FLOMAX) 0.4 mg Take 1 capsule by mouth twice daily. Dr. Shaffer. acetaminophen (TYLENOL) 500 mg tablet Take 2 tablets by mouth every 6 hours. aspirin, enteric coated (ASPIRIN, ENTERIC COATED) 81 mg EC tablet Take 2 tablets by mouth once daily. [DISCONTINUED] furosemide (LASIX) 20 mg tablet Take 1 tablet by mouth once daily. (Patient not taking: Reported on 10/15/2024) REVIEW OF SYSTEMS: Review of Systems Constitutional: [...] Psychiatric/Behavioral: Negative for depression. PHYSICAL EXAMINATION: BP 126/70 Pulse 66 Resp 12 Ht 5' 7.5 (1.72m) Wt 171 lb (77.6kg) SpO2 94% BMI 26.37 kg/(m2). General: Very pleasant gentleman sitting comfortable no apparent distress. He is alert and oriented x3 HEENT: Carotid upstrokes are brisk bilaterally without bruits no JVD appreciated. Pulmonary: Lungs are clear no rales, wheezes, rhonchi Cardiovascular: Normal S1, S2 with regular rate and rhythm. No murmurs, rubs, or gallops Extremities: Warm, well-perfused, no lower extremity edema. 2+ distal pulses CARDIOVASCULAR MEDICINE TESTING: Cardiac Catheterization [facility] 06/05/2019: POST PROCEDURE DIAGNOSIS: [place] Coronary Artery Disease in the LAD (Severe) 99% proximal, RCA (C (more content not included)... [facility] 12-13-2024 Note HNO ID: [id number] Author: BELLA SANTOS MD Service: ? Author Type: Physician Type: Progress Notes Filed: 12/13/2024 18:03 Note Text: Chief Complaint Patient presents with: 6 Month Exam HPI Recording using [employer] software for draft documentation of the visit was discussed with the patient/authorized personal financial representative; all questions welcomed and answered. Patient/authorized personal financial representative agreed to proceed Jocelyn Loaiza is a 79-year-old male with a history of HTN, CAD, hematuria, AFib, and degenerative disc disease, presenting for follow-up. BP has been well controlled. Hiking without cardiac symptoms. Jocelyn reports a single episode of hematuria, which has not recurred. A recent CT scan showed no abnormalities in the kidneys or prostate. He is under the care of Dr. Shaffer, who has recommended a cystoscopy as part of the standard protocol for hematuria evaluation. Jocelyn expresses reluctance to undergo the procedure, questioning its necessity given the absence of recurrent symptoms. He also reports ongoing issues with lumbar degenerative disc disease. He has been participating in physical therapy and using the [facility] thomas, which provides home exercises. He notes improvement in his back pain over the past week and continues to engage in gym activities. He denies needing any medication refills at this time. Recent lab results show an A1c of 5.6%, a cholesterol level of 131 mg/dL, and a normal CBC. Current medications include Crestor 40 mg for hypercholesterolemia, losartan 50 mg for hypertension, Eliquis for AFib, and Lopressor 25 mg BID. Past medical history, appointments, medications, allergies reviewed. [...] Medication Sig metoprolol tartrate, short acting, (LOPRESSOR) 25 mg tablet Take 1 tablet by mouth two times a day. losartan (COZAAR) 50 mg tablet Take 1 tablet by mouth once daily. magnesium oxide 400 mg magnesium cap Take 1 capsule by mouth once daily. Cholecalciferol, Vitamin D3, 50 mcg (2,000 unit) cap Take 1 capsule by mouth once daily. glucosamine HCl/chondroitin harris (GLUCOSAMINE-CHONDROITIN ORAL) Take 1 tablet by mouth two times a day. rosuvastatin (CRESTOR) 40 mg tablet Take 1 tablet by mouth daily at bedtime. ELIQUIS 5 mg tab(s) Take 1 tablet by mouth two times a day. Docusate Sodium 100 mg tab Take by mouth. TURMERIC ORAL Take by mouth once daily. doxycycline 20 mg tablet Take 1 tablet by mouth twice daily. tamsulosin ER (FLOMAX) 0.4 mg Take 1 capsule by mouth twice daily. Dr. Shaffer. acetaminophen (TYLENOL) 500 mg tablet Take 2 tablets by mouth every 6 hours. aspirin, enteric coated (ASPIRIN, ENTERIC COATED) 81 mg EC tablet Take 2 tablets by mouth once daily. [DISCONTINUED] furosemide (LASIX) 20 mg tablet Take 1 tablet by mouth once daily. (Patient not taking: Reported on 10/15/2024) No current facility-administered medications on file prior to visit. Social History SOCIAL HISTORY[1] EXAM: BP 122/74 Pulse 72 Resp 16 Wt 77.1 kg (169 lb 15.6 oz) BMI 26.23 kg/m? General Appearance: Well appearing, alert, in no acute distress, well-hydrated, well nourished.. Lungs: Lungs clear to auscultation. No wheezing, rhonchi, rales.. Heart: RRR without murmur, gallop, or rubs. No ectopy. Health Maintenance List Shingrix Vaccine(1 of 2) Never done RSV Vaccine(1 - 1-dose 75+ series) Never done Advance Directive Discussion due on 04/25/2024 Medicare Advantage Annual Wellness Visit Never done Depression Screening due on 11/28/2024 Anxiety Screening due on 11/28/2024 Hepatitis C Screening due on 06/11/2025 Influenza Vaccine(1) due on 12/24/2024 Annual PCP Team Chronic Disease Visit due on 10/15/2025 LDL Cholesterol due on 12/11/2025 DTaP,Tdap,Td Vaccine(2 - Td or Tdap) due on 02/07/2027 Diabetes Screening due on 12/12/2027 Pneumococcal Vaccine: 50+ Completed Colorectal Cancer Screening Discontinued Data reviewed Appointment on 12/11/2024 Component Date Value Protein, Total 12/11/2024 6.9 Albumin 12/11/2024 4.2 Calcium, Total 12/11/2024 9.2 Bilirubin, Total 12/11/2024 0.5 Alkaline Phosphatase 12/11/2024 49 AST (more content not included)... [facility] 12-13-2024 History of Present illness Narrative Chief Complaint Patient presents with: 6 Month Exam HPI Recording using IdenIve software for draft documentation of the visit was discussed with the patient/authorized personal financial representative; all questions welcomed and answered. Patient/authorized personal financial representative agreed to proceed Jocelyn Loaiza is a 79-year-old male with a history of HTN, CAD, hematuria, AFib, and degenerative disc disease, presenting for follow-up. BP has been well controlled. Hiking without cardiac symptoms. Jocelyn reports a single episode of hematuria, which has not recurred. A recent CT scan showed no abnormalities in the kidneys or prostate. He is under the care of Dr. Shaffer, who has recommended a cystoscopy as part of the standard protocol for hematuria evaluation. Jocelyn expresses reluctance to undergo the procedure, questioning its necessity given the absence of recurrent symptoms. He also reports ongoing issues with lumbar degenerative disc disease. He has been participating in physical therapy and using the [facility], which provides home exercises. He notes improvement in his back pain over the past week and continues to engage in gym activities. He denies needing any medication refills at this time. Recent lab results show an A1c of 5.6%, a cholesterol level of 131 mg/dL, and a normal CBC. Current medications include Crestor 40 mg for hypercholesterolemia, losartan 50 mg for hypertension, Eliquis for AFib, and Lopressor 25 mg BID. Past medical history, appointments, medications, allergies reviewed. [...] Medication Sig metoprolol tartrate, short acting, (LOPRESSOR) 25 mg tablet Take 1 tablet by mouth two times a day. losartan (COZAAR) 50 mg tablet Take 1 tablet by mouth once daily. magnesium oxide 400 mg magnesium cap Take 1 capsule by mouth once daily. Cholecalciferol, Vitamin D3, 50 mcg (2,000 unit) cap Take 1 capsule by mouth once daily. glucosamine HCl/chondroitin harris (GLUCOSAMINE-CHONDROITIN ORAL) Take 1 tablet by mouth two times a day. rosuvastatin (CRESTOR) 40 mg tablet Take 1 tablet by mouth daily at bedtime. ELIQUIS 5 mg tab(s) Take 1 tablet by mouth two times a day. Docusate Sodium 100 mg tab Take by mouth. TURMERIC ORAL Take by mouth once daily. doxycycline 20 mg tablet Take 1 tablet by mouth twice daily. tamsulosin ER (FLOMAX) 0.4 mg Take 1 capsule by mouth twice daily. Dr. Shaffer. acetaminophen (TYLENOL) 500 mg tablet Take 2 tablets by mouth every 6 hours. aspirin, enteric coated (ASPIRIN, ENTERIC COATED) 81 mg EC tablet Take 2 tablets by mouth once daily. [DISCONTINUED] furosemide (LASIX) 20 mg tablet Take 1 tablet by mouth once daily. (Patient not taking: Reported on 10/15/2024) No current facility-administered medications on file prior to visit. Social History SOCIAL HISTORY[1] EXAM: BP 122/74 Pulse 72 Resp 16 Wt 77.1 kg (169 lb 15.6 oz) BMI 26.23 kg/m General Appearance: Well appearing, alert, in no acute distress, well-hydrated, well nourished.. Lungs: Lungs clear to auscultation. No wheezing, rhonchi, rales.. Heart: RRR without murmur, gallop, or rubs. No ectopy. Health Maintenance List Shingrix Vaccine(1 of 2) Never done RSV Vaccine(1 - 1-dose 75+ series) Never done Advance Directive Discussion due on 04/25/2024 Medicare Advantage Annual Wellness Visit Never done Depression Screening due on 11/28/2024 Anxiety Screening due on 11/28/2024 Hepatitis C Screening due on 06/11/2025 Influenza Vaccine(1) due on 12/24/2024 Annual PCP Team Chronic Disease Visit due on 10/15/2025 LDL Cholesterol due on 12/11/2025 DTaP,Tdap,Td Vaccine(2 - Td or Tdap) due on 02/07/2027 Diabetes Screening due on 12/12/2027 Pneumococcal Vaccine: 50+ Completed Colorectal Cancer Screening Discontinued Data reviewed Appointment on 12/11/2024 Component Date Value Protein, Total 12/11/2024 6.9 Albumin 12/11/2024 4.2 Calcium, Total 12/11/2024 9.2 Bilirubin, Total 12/11/2024 0.5 Alkaline Phosphatase 12/11/2024 49 AST 12/11/2024 22 ALT 12/11/2024 17 Glucose 12/11/2024 90 BUN 12/11/2024 21 Creatinine 12/11/2024 0.89 Sodium 12/11/2024 141 Potassium 12/11/2024 4.5 Chloride 12/11/2024 106 CO2 12/11/2024 24 Anion Gap 12/11/2024 11 Estimated Glomerular Stefan* 12/11/2024 88 Cholesterol, Total 12/11/2024 131 Triglyceride 12/11/2024 77 HDL Cholesterol 12/11/2024 43 LDL Cholesterol, Calcula* 12/11/2024 73 Non HDL Cholesterol 12/11/2024 88 VLDL Cholesterol 12/11/2024 12 TC:HDL Ratio 12/11/2024 3.05 LDL:HDL Ratio 12/11/2024 1.70 Fasting Time 12/11/2024 12 WBC 12/11/2024 5.90 RBC 12/11/2024 5.41 Hemoglobin 12/11/2024 16.9 Hematocrit 12/11/2024 50.8 MCV 12/11/2024 93.9 MCH 12/11/2024 31.2 MCHC 12/11/2024 33.3 RDW-CV 12/11/2024 12.4 Platelet Count 12/11/2024 227 MPV 12/11/2024 9.7 Neutrophils % 12/11/2024 53.8 Abs Neut 12/11/2024 3.17 Lymphocytes % 12/11/2024 28.3 Abs Lymph 12/11/2024 1.67 Monocytes % 12/11/2024 13.2 Abs Mccreary 12/11/2024 0.78 Eosinophils % 12/11/2024 3.2 Abs Eosin 12/11/2024 0.19 Basophils % 12/11/2024 1.2 Abs Baso 12/11/2024 0.07 Immature Granulocytes % 12/11/2024 0.3 Abs Immature Gran 12/11/2024 <0.03 NRBC 12/11/2024 0.0 Absolute nRBC 12/11/2024 <0.01 Diff Type 12/11/2024 Auto Hemoglobin A1C 12/11/2024 5.6 Estimated Average Glucose 12/11/2024 114 1. 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 (I25.810) 2. Hx of CABG (Z95.1) History of coronary artery disease with prior CABG; currently stable and asymptomatic. - Continue current management. 3. Dyslipidemia (E78.5) Cholesterol well controlled on Crestor 40 mg daily; most recent cholesterol 131 mg/dL. - Continue Crestor 40 mg daily. 4. Paroxysmal atrial fibrillation (HCC) (I48.0) Atrial fibrillation managed with Eliquis and Lopressor 25 mg BID. - Continue Eliquis and Lopressor 25 mg BID. 5. Elevated glucose (R73.09) Most recent HbA1c 5.6%. - Continue current management. 6. Intervertebral disc disorders with radiculopathy, lumbar region (M51.16) Lumbar radiculopathy with improvement in symptoms over the past week; currently participating in home exercise program via [facility] and attending gym. - Continue home exercise program and physical therapy. 7. Essential (primary) hypertension (I10) Blood pressure well controlled at 122/74 mmHg; managed with losartan 50 mg daily and Lopressor 25 mg BID. - Continue losartan 50 mg daily and Lopressor 25 mg BID. 8. Gross hematuria (R31.0) Single episode of gross hematuria; CT scan unremarkable for kidneys and prostate. Urology recommends cystoscopy as standard protocol to further evaluate unexplained hematuria. - Advised patient to proceed with cystoscopy as recommended by urology. 9. Screening for depression (Z13.31) 10. Encounter for screening examination for other mental health and behavioral disorders (Z13.39) 11. HARLEY on CPAP (G47.33) Follow up in 6 months Medical Decision Making: Problems: Moderate: 2+ stable chronic illnesses Data: Unique test result(s) reviewed: 3+ Unique test(s) ordered: 3+ Risk: Moderate: Drug management Medical Decision Making Level: 4 - Moderate Bella Santos MD [1] Social History Tobacco Use Smoking status: Former Current packs/day: 0.00 Average packs/day: 1 pack/day for 7.0 years (7.0 ttl pk-yrs) Types: Cigarettes Start date: 12/27/1969 Quit date: 12/27/1976 Years since quittin.9 Smokeless tobacco: Never Tobacco comments: on and off Vaping Use Vaping status: Never Used Substance Use Topics Alcohol use: Yes Comment: occasional Drug use: No documented in this encounter [facility] 12-13-2024 Instructions Kenzie Prasad MA - 12/13/2024 9:46 AM EDT Providers taking Dr. Santos's Patients when he retires in Feb. Dr. Holli Bosch Please call in to establish care with one of the providers list above. Will be due for follow up in 6 Months. documented in this encounter [facility] 11-15-2024 Discharge summary Note Date/Time November 15, 2024 7:00pm [facility] Physical [facility] [facility] [place] [address] / REHABILITATION SERVICES DISCHARGE SUMMARY MR#: [id number] Acct: [id number] Name: JOCELYN LOAIZA Rep #: [id number] : 1945 79 From: Carolyn Vásquez PT, Cert. MDT Referring Dr.: Dr. Bella Santos MD Status: REG RCR Insurance: [employer] SELF PAY INSURANCE Discharge Summary D/C summary: It has been my pleasure to treat JOCELYN LOAIZA referred by Dr. Bella Santos MD, with the diagnosis of LOW BACK PAIN for a total of 9 visit(s). Discharge Date: 11/15/24 Please see the following information for a summary of their discharge status. Subjective Subjective: I FEEL LIKE THE THERAPY IS HELPING. PATIENT REPORTS HIS PAIN IS VERY INTERMITTENT AND IF HE MOVES IT USUALLY WORKS IT OUT. HE REPORTS HE IS HAVING LESS EPISODES OF PAIN SINCE STARTING PT. FOLLOW UP PENDING WITH DR. SANTOS IN NOV 2024 AFTER RETURN FROM BEING OUT OF TOWN. PATIENT REPORTS HE IS GOING OUT OF TOWN FROM 11/27/24 TO 12/09/24 Pain Left Back: Pain Intensity (Out of 10): 0 Overall Improvement % Improvement: 50 Objective Objective/Function: PATIENT WAS SEEN TODAY FOR RE-ASSESSMENT OF PROGRESS TOWARD THE SET PT GOALS AND THE NEED FOR FURTHER PHYSICAL THERAPY VS READINESS FOR DISCHARGE. THIS PATIENT IS REPORTING LESS FREQUENT EPISODES OF PAIN BUT OSWESTRY SCORE IS WORSE AND L LOW BACK PAIN IS EASILY PRODUCE WITH TESTING TODAYAND REMAINS WORSE A RESULT. NO CHANGE IN LE TESTING OR NEW LE SIGNS. PHYSICAIN RE-ASSESSMENT IS RECOMMENDED. PATIENT AGREEABLE. UPON EXAM TODAY: Strength: Abdulaziz LE's grossly 5/5. Other: patient is able to walk on toes and walk on heels without UE assist. Dural Signs: Negative Abdulaziz LE's. Lumbar mvmt loss: flex - MIN MOD - NE ext - MOD - NE R SG - MOD - P L BACK ON RETURN - NW L SG - MOD TO ADRY - P L BACK - REMAINS WORSE A RESULT. EVENTUALLY ABOLISHED IN SITTING BEFORE DEPARTURE. REINFORCEMENT OF PRIOR INSTRUCTIONS GIVEN FOR HEALTHY BACK AND POSTURE HABITS. PATIENT DEMONSTRATES/COMMUNICATES A GOOD UNDERSTANDING. Goals Goal 1:: DECREASE C/O L LB AND L LE SX'S BY AT LEAST 75% Goal Progress: Questionable Goal 2:: RESTORE PAINFREE LUMBAR ROM WITH ALL ADL'S Goal Progress: Not Met Goal 3:: PATIENT WILL BE INDEP WITH APPROPRIATE CORE AND LE STRETCHING AND STRENGTHENING PROGRAM TO MINIMIZE RISK OF REOCCURRENCE. Goal Progress: Partially Met Plan Plan: D/C TO HOME INSTRUCTIONS GIVEN, EX PROGRAM AND FOLLOW UP WITH DR. SANTOS. PATIENT AGREEABLE. D/C Information d/c sentence: If there are questions or concerns regarding this patient's physical therapy, please feel free to call me at [phone]. Thank you for the referral of thispatient. Sincerely, Carolyn Vásquez PT, Cert T Balance/Gait/Functional tests Balance/Special Test Scores Oswestry Low Back Score: 5 Improvement % Improvement: 50 <Electronically signed by Cert. MIGDALIA Benjamin PT> 11/15/24 1248 CC: Dr. Bella Santos MD ~ JAIR Signed [facility] Work Phone: 1(715) 384-642207-24-2025 Discharge summary [facility] [address] [facility] [place] [address] / REHABILITATION SERVICES DISCHARGE SUMMARY MR#: [id number] Acct: [id number] Name: JOCELYN LOAIZA Rep #: [id number] 3 : 1945 79 From: Cert. MIGDALIA Benjamin PT Referring Dr.: Dr. Bella Santos MD Status: REG R Insurance: [facility] SELF PAY INSURANCE Discharge Summary D/C summary: It has been my pleasure to treat JOCELYN LOAIZA referred by Dr. Bella Santos MD, with the diagnosis of LOW BACK PAIN for a total of 9 visit(s). Discharge Date: 11/15/24 Please see the following information for a summary of their discharge status. Subjective Subjective: I FEEL LIKE THE THERAPY IS HELPING. PATIENT REPORTS HIS PAIN IS VERY INTERMITTENT AND IF HE MOVES IT USUALLY WORKS IT OUT. HE REPORTS HE IS HAVING LESS EPISODES OF PAIN SINCE STARTING PT. FOLLOW UP PENDING WITH DR. SANTOS IN NOV 2024 AFTER RETURN FROM BEING OUT OF TOWN. PATIENT REPORTS HE IS GOING OUT OF TOWN FROM 11/27/24 TO 12/09/24 Pain Left Back: Pain Intensity (Out of 10): 0 Overall Improvement % Improvement: 50 Objective Objective/Function: PATIENT WAS SEEN TODAY FOR RE-ASSESSMENT OF PROGRESS TOWARD THE SET PT GOALS AND THE NEED FOR FURTHER PHYSICAL THERAPY VS READINESS FOR DISCHARGE. THIS PATIENT IS REPORTING LESS FREQUENT EPISODES OF PAIN BUT OSWESTRY SCORE IS WORSE AND L LOW BACK PAIN IS EASILY PRODUCE WITH TESTING TODAYAND REMAINS WORSE A RESULT. NO CHANGE IN LE TESTING OR NEW LE SIGNS. PHYSICAIN RE-ASSESSMENT IS RECOMMENDED. PATIENT AGREEABLE. UPON EXAM TODAY: Strength: Abdulaziz LE's grossly 5/5. Other: patient is able to walk on toes and walk on heels without UE assist. Dural Signs: Negative Abdulaziz LE's. Lumbar mvmt loss: flex - MIN MOD - NE ext - MOD - NE R SG - MOD - P L BACK ON RETURN - NW L SG - MOD TO ADRY - P L BACK - REMAINS WORSE A RESULT. EVENTUALLY ABOLISHED IN SITTING BEFORE DEPARTURE. REINFORCEMENT OF PRIOR INSTRUCTIONS GIVEN FOR HEALTHY BACK AND POSTURE HABITS. PATIENT DEMONSTRATES/COMMUNICATES A GOOD UNDERSTANDING. Goals Goal 1:: DECREASE C/O L LB AND L LE SX'S BY AT LEAST 75% Goal Progress: Questionable Goal 2:: RESTORE PAINFREE LUMBAR ROM WITH ALL ADL'S Goal Progress: Not Met Goal 3:: PATIENT WILL BE INDEP WITH APPROPRIATE CORE AND LE STRETCHING AND STRENGTHENING PROGRAM TOMINIMIZE RISK OF REOCCURRENCE. Goal Progress: Partially Met Plan Plan: D/C TO HOME INSTRUCTIONS GIVEN, EX PROGRAM AND FOLLOW UP WITH DR. SANTOS. PATIENT AGREEABLE. D/C Information d/c sentence: If there are questions or concerns regarding this patient's physical therapy, please feel free to call me at [phone]. Thank you for the referral of thispatient. Sincerely, Carolyn Vásquez, PT, Cert MDT Balance/Gait/Functional tests Balance/Special Test Scores Oswestry Low Back Score: 5 Improvement % Improvement: 50 11/15/24 1248 CC: Dr. Bella Santos MD ~ JAIR Signed [facility]07-10-2025 Radiology Diagnostic study note [facility] Imaging Services [address] [place] [address] CT Abd/Pelvis W/WO Contrast MR#: [id number] Acct: [id number] Name: JOCELYN LOAIZA Rep #: [id number] : 1945 M 79 From: Gm White MD PCP: Dr. Bella Santos MD Status: RE G CLI Study:CT Abd/Pelvis W/WO Contrast Date of Exa m: 10/31/24 Exam# [id number] Ordering Dr: Cheyanne Shaffer MD PROCEDURE: CT ABD/PELVIS W/WO CONTRAST 10/31/2024 REASON FOR EXAM: GROSS HEMATURIA TECHNIQUE: CT ABD/PELVIS W/WO CONTRAST Coronal and Sagittal reconstruction series were provided. CONTRAST: Isovue-300 VOLUME: 100 mL One or more dose reduction techniques were used (e.g., Automated exposure control, adjustment of the mA and/or kV according to patient size, use of iterative reconstruction technique. RADIATION DOSE SUMMARY: CTDlvol: 68.90 mGy DLP: 2050.29 mGycm COMPARISON: CT abdomen and pelvis without contrast, 05/13/2019. FINDINGS: Lung bases: The lung bases are clear. There are no pleural effusions. The heart size is normal. There is no pericardial effusion. There is calcific vascular disease of the thoracic aorta and coronaryarteries. Liver: There is a 4.3 cm in diameter cyst in the left hepatic lobe. There are multiple smaller cysts in both hepatic lobes. Gallbladder: Normal. Spleen: Normal. There is a benign splenule inferior to the spleen. Pancreas: Normal. Adrenals: Normal. Kidneys: There are multiple cortical cysts on both kidneys the largest on the left measuring 9.5 cmin diameter in the largest on the right measuring 6.0 cm in diameter. There are 2 x 2 mm stones in an upper pole calyx of the left kidney, max HU 220. There is a 2 mm stone in an interpolar calyx of the left kidney. There is no ureterolithiasis or hydronephrosis. Bladder: Normal. Reproductive Organs: The prostate gland is normal in size. The seminal vesiclesare normal. There isno free fluid in the pelvis. There is no pelvic or inguinal lymphadenopathy. There is a right inguinal hernia containingnormal fat measuring 3.4 cm in diameter. Bowel: There is a small hiatal hernia. There is stool throughout the colon. Appendix: Normal. Lymph nodes: There is no significant mesenteric, retroperitoneal or pelvic lymphadenopathy. Vasculature: There is calcific vascular disease of the abdominal aorta. The inferior vena cava and portal venous system are normal. Peritoneum / Retroperitoneum: There are no abnormal intra or retroperitoneal masses or fluid collections. Bones: There is multilevel degenerative disc disease of the lumbar spine most severe at the L3-4 and L4-5 levels. There is mild levoscoliosis of the lumbar spine. CT/CT Abd/Pelvis W/WO Contrast IMPRESSION: 1. Left nephrolithiasis without obstruction. 2. The bladder appears unremarkable. 3. There is a small hiatal hernia. 4. Right inguinal hernia containing fat. 5. Other findings as noted. Reading Location: [id number] CC: Dr. Kiran Shaffer MD; Dr. Bella Santos MD ~ Mica Paster: Signed [facility] Work Phone: 1(209) 988-270607-07-2025 Telephone encounter Note* Telephone Encounter - Blessing Lezama RN - 10/29/2024 11:40 AM EDT Patient requesting refills as follows: Patient changing pharmacies. Requested Prescriptions Pending Prescriptions Disp Refills metoprolol tartrate, short acting, (LOPRESSOR) 25 mg tablet 180 tablet 3 Sig: Take 1 tablet by mouth two times a day. Please review and advise. Blessing Lezama RN [facility]07-07-2025 Miscellaneous Notes* Telephone Encounter - Blessing Lezama RN - 10/29/2024 11:40 AM EDT Patient requesting refills as follows: Patient changing pharmacies. Requested Prescriptions Pending Prescriptions Disp Refills metoprolol tartrate, short acting, (LOPRESSOR) 25 mg tablet 180 tablet 3 Sig: Take 1 tablet by mouth two times a day. Please review and advise. Blessing Lezama RN [facility] NoteHNO ID: [id number] Author: MARLY CHILD, ? Service: ? Author Type: Physician Type: Progress Notes Filed: 10/25/2024 13:04 Note Text: Jose L Loaiza is a 79-year-old male presenting for follow-up of a wart on the right foot. Wart on Right Foot: - Persistent wart on the plantar aspect of the right foot. - Previous treatments include topical salicylic acid, Compound W, and a prescribed wart cream. - Jocelyn believes the wart is improving but is uncertain. - Noticed a scab on the wart since the last visit. - Denies pain associated with the wart. - Has a dermatology appointment scheduled for December 11. Musculoskeletal: (-) right foot pain Skin: (+) right foot scab PAST MEDICAL HISTORY Diagnosis Date Dyslipidemia Dyspnea on exertion Former smoker, stopped smoking in distant past HTN (hypertension) Kidney stones HARLEY on CPAP Rosacea Current Outpatient Medications Medication Sig Dispense Refill losartan (COZAAR) 50 mg tablet Take 1 tablet by mouth once daily. 90 tablet 3 magnesium oxide 400 mg magnesium cap Take 1 capsule by mouth once daily. 90 capsule 3 Cholecalciferol, Vitamin D3, 50 mcg (2,000 unit) cap Take 1 capsule by mouth once daily. 90 capsule 3 glucosamine HCl/chondroitin harris (GLUCOSAMINE-CHONDROITIN ORAL) Take 1 tablet by mouth two times a day. rosuvastatin (CRESTOR) 40 mg tablet Take 1 tablet by mouth daily at bedtime. 90 tablet 3 metoprolol tartrate, short acting, (LOPRESSOR) 25 mg tablet Take 1 tablet by mouth two times a day. 180 tablet 3 ELIQUIS 5 mg tab(s) Take 1 tablet by mouth two times a day. 180 tablet 3 Docusate Sodium 100 mg tab Take by mouth. TURMERIC ORAL Take by mouth once daily. doxycycline 20 mg tablet Take 1 tablet by mouth twice daily. tamsulosin ER (FLOMAX) 0.4 mg Take 1 capsule by mouth twice daily. Dr. Shaffer. acetaminophen (TYLENOL) 500 mg tablet Take 2 tablets by mouth every 6 hours. aspirin, enteric coated (ASPIRIN, ENTERIC COATED) 81 mg EC tablet Take 2 tablets by mouth once daily. No current facility-administered medications for this visit. Family History Problem Relation Age of Onset other (No CAD) Father Cancer Mother , lung Cancer Brother thyroid Objective There were no vitals taken for this visit. - Cardiovascular: Dorsalis pedis and posterior tibial pulses palpable on the right foot; capillary refill time <5 seconds; skin temperature warm. - Skin: Hyperkeratotic lesion with diverging skin lines on the plantar aspect of the second metatarsal head, measuring approximately 5mm x 5mm. Assessment AND Plan 1. Plantar wart (B07.0) - Persistent hyperkeratotic lesion on the plantar aspect of the second metatarsal head, measuring approximately 5mm x 5mm, with diverging skin lines; consistent with a plantar wart. - Previous treatments include topical salicylic acid, Compound W, and a compounded wart cream; minimal improvement observed. - Discussed potential next steps: referral to dermatology for further evaluation and management, or considering laser excision. - Patient has a dermatology appointment scheduled for December 11; advised to continue current topical treatments until then. - Educated patient on the laser excision procedure, including the need for operating room setting, post-operative care with topical antibiotics, and expected healing time of approximately three weeks. - Patient understands and agrees with the plan to consult dermatology before considering surgical options. Recording using [employer] software for draft documentation of the visit was discussed with the patient/authorized personal financial representative; all questions welcomed and answered. Patient/authorized personal financial representative agreed to proceed Marly Child [facility]07-03-2025 History of Present illness Narrative* Marly Child - 10/25/2024 1:04 PM EDT Subjective Jocelyn Loaiza is a 79-year-old male presenting for follow-up of a wart on the right foot. Wart on Right Foot: - Persistent wart on the plantar aspect of the right foot. - Previous treatments include topical salicylic acid, Compound W, and a prescribed wart cream. - Jocelyn believes the wart is improving but is uncertain. - Noticed a scab on the wart since the last visit. - Denies pain associated with the wart. - Has a dermatology appointment scheduled for December 11. Musculoskeletal: (-) right foot pain Skin: (+) right foot scab PAST MEDICAL HISTORY Diagnosis Date Dyslipidemia Dyspnea on exertion Former smoker, stopped smoking in distant past HTN (hypertension) Kidney stones HARLEY on CPAP Rosacea Current Outpatient Medications Medication Sig Dispense Refill losartan (COZAAR) 50 mg tablet Take 1 tablet by mouth once daily. 90 tablet 3 magnesium oxide 400 mg magnesium cap Take 1 capsule by mouth once daily. 90 capsule 3 Cholecalciferol, Vitamin D3, 50 mcg (2,000 unit) cap Take 1 capsule by mouth once daily. 90 capsule3 glucosamine HCl/chondroitin harris (GLUCOSAMINE-CHONDROITIN ORAL) Take 1 tablet by mouth two times a day. rosuvastatin (CRESTOR) 40 mg tablet Take 1 tablet by mouth daily at bedtime. 90 tablet 3 metoprolol tartrate, short acting, (LOPRESSOR) 25 mg tablet Take 1 tablet by mouth two times a day.180 tablet 3 ELIQUIS 5 mg tab(s) Take 1 tablet by mouth two times a day. 180 tablet 3 Docusate Sodium 100 mg tab Take by mouth. TURMERIC ORAL Take by mouth once daily. doxycycline 20 mg tablet Take 1 tablet by mouth twice daily. tamsulosin ER (FLOMAX) 0.4 mg Take 1 capsule by mouth twice daily. Dr. Shaffer. acetaminophen (TYLENOL) 500 mg tablet Take 2 tablets by mouth every 6 hours. aspirin, enteric coated (ASPIRIN, ENTERIC COATED) 81 mg EC tablet Take 2 tablets by mouth once daily. No current facility-administered medications for this visit. Family History Problem Relation Age of Onset other (No CAD) Father Cancer Mother , lung Cancer Brother thyroid Objective There were no vitals taken for this visit. - Cardiovascular: Dorsalis pedis and posterior tibial pulses palpable on the right foot; capillary refill time <5 seconds; skin temperature warm. - Skin: Hyperkeratotic lesion with diverging skin lines on the plantar aspect of the second metatarsal head, measuring approximately 5mm x 5mm. Assessment & Plan 1. Plantar wart (B07.0) - Persistent hyperkeratotic lesion on the plantar aspect of the second metatarsal head, measuring approximately 5mm x 5mm, with diverging skin lines; consistent with a plantar wart. - Previous treatments include topical salicylic acid, Compound W, and a compounded wart cream; minimal improvement observed. - Discussed potential next steps: referral to dermatology for further evaluation and management, orconsidering laser excision. - Patient has a dermatology appointment scheduled for December 11; advised to continue current topical treatments until then. - Educated patient on the laser excision procedure, including the need for operating room setting, post-operative care with topical antibiotics, and expected healing time of approximately three weeks. - Patient understands and agrees with the plan to consult dermatology before considering surgical options. Recording using [employer] software for draft documentation of the visit was discussed with the patient/authorized personal financial representative; all questions welcomed and answered. Patient/authorized personal financial representative agreed to proceed Marly Child DPM * Ailin Gunn LPN - 10/25/2024 10:50 AM EDT AMB ROOMING INTAKE FLOWSHEET DATA Patient presents with: Right Foot - Follow Up: 1 month follow up wart right foot Ailin Gunn LPN [facility] Instructions* Patient Instructions* Marly Child - 10/25/2024 11:26 AM EDT - Continue applying Compounded cream to your wart - Keep your dermatology appointment on December 11 for further evaluation. - Tell the wraparound facilitator you have tried in-office salicylic acid, Compound W, and the compounded cream without full resolution. other options discussed include scheduling a laser excision documented in this encounterM[facility]07-03-2025 NoteHNO ID: [id number] Author: AILIN GUNN LPN Service: ? Author Type: LICENSED NURSE Type: Progress Notes Filed: 10/25/2024 13:04 Note Text: AMB ROOMING INTAKE FLOWSHEET DATA Patient presents with: Right Foot - Follow Up: 1 month follow up wart right foot [facility] History of Present illness Narrative* Holli Brock, RT(R) - 10/18/2024 3:30 PM EDT Radiology Service Progress Note PATIENT NAME: Jocelyn Loaiza DATE OF SERVICE: October 18, 2024 TIME: 3:22 PM PATIENT IDENTITY VERIFICATION COMPLETED USING TWO (2) IDENTIFIERS: Name and Date of confirmedby patient verbally. FALL SCREENING: Has the patient had 2 falls in the last year or 1 fall with injury or currently using an Ambulatory Assistive Device (Walker, Cane, Wheelchair, Crutches, etc.)? No PATIENT GENDER DATA: Assigned male at PATIENT RELEVANT IMPLANT DATA REVIEWED: Yes PATIENT PRESENTS WITH AN IMPLANTABLE OR ATTACHED GRADALL OPERATOR: No RADIOLOGY DEPARTMENT: MR; Exam(s) Completed: Spine: Lumbar spine. Aromatherapy Administered: No PERIPHERAL IV DATA: Not applicable SIGNED BY: RT Brittney(R) October 18, 2024 3:22 PM documented in this encounterM[facility]06-26-2025 NoteHNO ID: [id number] Author: HOLLI BROCK RT(R) Service: ? Author Type: Technologist Type: Progress Notes Filed: 10/18/2024 15:26 Note Text: Radiology Service Progress Note PATIENT NAME: Jocelyn Loaiza DATE OF SERVICE: October 18, 2024 TIME: 3:22 PM PATIENT IDENTITY VERIFICATION COMPLETED USING TWO (2) IDENTIFIERS: Name and Date of confirmed by patient verbally. FALL SCREENING: Has the patient had 2 falls in the last year or 1 fall with injury or currently using an Ambulatory Assistive Device (Walker, Cane, Wheelchair, Crutches, etc.)? No PATIENT GENDER DATA: Assigned male at PATIENT RELEVANT IMPLANT DATA REVIEWED: Yes PATIENT PRESENTS WITH AN IMPLANTABLE OR ATTACHED GRADALL OPERATOR: No RADIOLOGY DEPARTMENT: MR; Exam(s) Completed: Spine: Lumbar spine. Aromatherapy Administered: No PERIPHERAL IV DATA: Not applicable SIGNED BY: RT Brittney(R) October 18, 2024 3:22 [facility]06-24-2025 Telephone encounter Note* Telephone Encounter - Bella Santos MD - 10/16/2024 11:40 AM EDT OK to refill as ordered Bella Santos MD [facility]06-24[facility] Miscellaneous Notes* Telephone Encounter - Bella Santos MD - 10/16/2024 11:40 AM EDT OK to refill as ordered Bella Santos MD documented in this encounterM[facility]06-23-[facility] History of Present illness Narrative* Bella Santos MD - 10/15/2024 7:00 PM EDT Chief Complaint Patient presents with: Back Pain HPI Jocelyn Loaiza is a 79 year old male who presents here today for back pain. Pt has been following with Chiropractor for his lower back and had xray done showing disc deterioration. He brought in disc for provider to look at, this was sent to Radiology to have uploaded. Pt wants to get MRI done. If he bends over he gets sharp pains, most the time its just an ache. He statesthis has been ongoing x 1 month. No injury. Has used heat and ice. Back Pain: - Gradual onset of back pain, described as a dull ache, with episodes of sharp pain. - Pain intensity varies from 2/10 to 7-8/10, depending on movement. - Aggravated by bending or moving the wrong way; sharp pain is transient. - No specific event or trauma initiated the pain. - Nocturnal pain is absent, but Jocelyn reports morning soreness. - Pain localized to the left side of the spine and upper buttock. - No pain radiating down the legs, but Jocelyn reports tingling in the left leg. - No difficulty with ambulation. - Chiropractic treatments have provided Jocelyn some relief. - Using ice and Tylenol PRN for pain management. - Engaging in exercises and stretches, including foam rolling for the IT band and hips. - Interested in obtaining an MRI for further evaluation. Past medical history, appointments, medications, allergies reviewed. [...] on File Prior to Visit Medication Sig magnesium oxide 400 mg magnesium cap Take 1 capsule by mouth once daily. Cholecalciferol, Vitamin D3, 50 mcg (2,000 unit) cap Take 1 capsule by mouth once daily. glucosamine HCl/chondroitin harris (GLUCOSAMINE-CHONDROITIN ORAL) Take 1 tablet by mouth two times a day. rosuvastatin (CRESTOR) 40 mg tablet Take 1 tablet by mouth daily at bedtime. metoprolol tartrate, short acting, (LOPRESSOR) 25 mg tablet Take 1 tablet by mouth two times a day. ELIQUIS 5 mg tab(s) Take 1 tablet by mouth two times a day. losartan (COZAAR) 50 mg tablet Take 1 tablet by mouth once daily. Docusate Sodium 100 mg tab Take by mouth. TURMERIC ORAL Take by mouth once daily. doxycycline 20 mg tablet Take 1 tablet by mouth twice daily. tamsulosin ER (FLOMAX) 0.4 mg Take 1 capsule by mouth twice daily. Dr. Shaffer. acetaminophen (TYLENOL) 500 mg tablet Take 2 tablets by mouth every 6 hours. aspirin, enteric coated (ASPIRIN, ENTERIC COATED) 81 mg EC tablet Take 2 tablets by mouth once daily. [DISCONTINUED] furosemide (LASIX) 20 mg tablet Take 1 tablet by mouth once daily. No current facility-administered medications on file prior to visit. Social History Social History Tobacco Use Smoking status: Former Current packs/day: 0.00 Average packs/day: 1 pack/day for 7.0 years (7.0 ttl pk-yrs) Types: Cigarettes Start date: 12/27/1969 Quit date: 12/27/1976 Years since quittin.8 Smokeless tobacco: Never Tobacco comments: on and off Vaping Use Vaping status: Never Used Substance Use Topics Alcohol use: Yes Comment: occasional Drug use: No EXAM: BP 140/74 Pulse 74 Resp 16 Wt 77.6 kg (171 lb 1.2 oz) SpO2 98% BMI 26.40 kg/m General Appearance: Well appearing, alert, in no acute distress, well-hydrated, well nourished.. Back:indicates pain left lower lumbar area, fair ROM in all directions Health Maintenance List Shingrix Vaccine(1 of 2) Never done RSV Vaccine(1 - 1-dose 75+ series) Never done Advance Directive Discussion due on 04/25/2024 Medicare Advantage Annual Wellness Visit Never done Hepatitis C Screening due on 06/11/2025 Depression Screening due on 11/28/2024 Anxiety Screening due on 11/28/2024 Covid-19 Vaccine( season) due on 12/09/2024 Influenza Vaccine(Season Ended) due on 12/24/2024 LDL Cholesterol due on 06/11/2025 Annual PCP Team Chronic Disease Visit due on 06/11/2025 DTaP,Tdap,Td Vaccine(2 - Td or Tdap) due on 02/07/2027 Diabetes Screening due on 06/11/2027 Pneumococcal Vaccine: 50+ Completed Colorectal Cancer Screening Discontinued Data reviewed none 1. Chronic left-sided low back pain without sciatica (M54.50) 2. Numbness and tingling of left lower extremity (R20.0) - Chronic low back pain with associated numbness and tingling in the left lower extremity; no radicular pain. - Physical exam reveals tenderness on the left side of the spine and upper gluteal region; no pain on flexion, extension, or lateral bending. - Recent chiropractic X-rays indicate degenerative disc disease. - Ordered MRI to further evaluate the extent of degenerative changes; insurance pre-authorization may be required. - Initiated referral to [facility] for physical therapy to develop a tailored exercise program. - Continue use of Tylenol and ice as needed for pain management. - Follow-up after MRI and initial physical therapy sessions to assess progress and adjust treatmentplan as necessary. Recording using [employer] software for draft documentation of the visit was discussed with the patient/authorized personal financial representative; all questions welcomed and answered. Patient/authorized personal financial representative agreed to proceed I agree with the Chief Complaint, ROS, and Past Histories independently gathered by the clinical customer support technician and the remaining scribed note accurately describes my personal service to the patient. Medical Decision Making: Problems: Low: Acute, uncomplicated illness or injury Data: Unique test result(s) reviewed: 1 Risk: Low: Low risk from testing/treatment Medical Decision Making Level: 3 - Low The documentation for this note was completed by Kenzie Prasad MA acting as scribe for Bella Santos MD. October 15, 2024 7:00 PM. Kenzie Prasad MA documented in this encounterM[facility]06-23-2025 NoteHNO ID: [id number] Author: BELLA SANTOS MD Service: ? Author Type: Physician Type: Progress Notes Filed: 10/15/2024 19:19 Note Text: Chief Complaint Patient presents with: Back Pain HPI Jocelyn Loaiza is a 79 year old male who presents here today for back pain. Pt has been following with Chiropractor for his lower back and had xray done showing disc deterioration. He brought in disc for provider to look at, this was sent to Radiology to have uploaded. Pt wants to get MRI done. If he bends over he gets sharp pains, most the time its just an ache. He states this has been ongoing x 1 month. No injury. Has used heat and ice. Back Pain: - Gradual onset of back pain, described as a dull ache, with episodes of sharp pain. - Pain intensity varies from 2/10 to 7-8/10, depending on movement. - Aggravated by bending or moving the wrong way; sharp pain is transient. - No specific event or trauma initiated the pain. - Nocturnal pain is absent, but Jocelyn reports morning soreness. - Pain localized to the left side of the spine and upper buttock. - No pain radiating down the legs, but Jocelyn reports tingling in the left leg. - No difficulty with ambulation. - Chiropractic treatments have provided Jocelyn some relief. - Using ice and Tylenol PRN for pain management. - Engaging in exercises and stretches, including foam rolling for the IT band and hips. - Interested in obtaining an MRI for further evaluation. Past medical history, appointments, medications, allergies reviewed. [...] on File Prior to Visit Medication Sig magnesium oxide 400 mg magnesium cap Take 1 capsule by mouth once daily. Cholecalciferol, Vitamin D3, 50 mcg (2,000 unit) cap Take 1 capsule by mouth once daily. glucosamine HCl/chondroitin harris (GLUCOSAMINE-CHONDROITIN ORAL) Take 1 tablet by mouth two times a day. rosuvastatin (CRESTOR) 40 mg tablet Take 1 tablet by mouth daily at bedtime. metoprolol tartrate, short acting, (LOPRESSOR) 25 mg tablet Take 1 tablet by mouth two times a day. ELIQUIS 5 mg tab(s) Take 1 tablet by mouth two times a day. losartan (COZAAR) 50 mg tablet Take 1 tablet by mouth once daily. Docusate Sodium 100 mg tab Take by mouth. TURMERIC ORAL Take by mouth once daily. doxycycline 20 mg tablet Take 1 tablet by mouth twice daily. tamsulosin ER (FLOMAX) 0.4 mg Take 1 capsule by mouth twice daily. Dr. Shaffer. acetaminophen (TYLENOL) 500 mg tablet Take 2 tablets by mouth every 6 hours. aspirin, enteric coated (ASPIRIN, ENTERIC COATED) 81 mg EC tablet Take 2 tablets by mouth once daily. [DISCONTINUED] furosemide (LASIX) 20 mg tablet Take 1 tablet by mouth once daily. No current facility-administered medications on file prior to visit. Social History Social History Tobacco Use Smoking status: Former Current packs/day: 0.00 Average packs/day: 1 pack/day for 7.0 years (7.0 ttl pk-yrs) Types: Cigarettes Start date: 12/27/1969 Quit date: 12/27/1976 Years since quittin.8 Smokeless tobacco: Never Tobacco comments: on and off Vaping Use Vaping status: Never Used Substance Use Topics Alcohol use: Yes Comment: occasional Drug use: No EXAM: BP 140/74 Pulse 74 Resp 16 Wt 77.6 kg (171 lb 1.2 oz) SpO2 98% BMI 26.40 kg/m? General Appearance: Well appearing, alert, in no acute distress, well-hydrated, well nourished.. Back:indicates pain left lower lumbar area, fair ROM in all directions Health Maintenance List Shingrix Vaccine(1 of 2) Never done RSV Vaccine(1 - 1-dose 75+ series) Never done Advance Directive Discussion due on 04/25/2024 Medicare Advantage Annual Wellness Visit Never done Hepatitis C Screening due on 06/11/2025 Depression Screening due on 11/28/2024 Anxiety Screening due on 11/28/2024 Covid-19 Vaccine( season) due on 12/09/2024 Influenza Vaccine(Season Ended) due on 12/24/2024 LDL Cholesterol due on 06/11/2025 Annual PCP Team Chronic Disease Visit due on 06/11/2025 DTaP,Tdap,Td Vaccine(2 - Td or Tdap) due on 02/07/2027 Diabetes Screening due on 06/11/2027 Pneumococcal Vaccine: 50+ Completed Colorectal Cancer Screening Discontinued Data (more content not included)...[facility]06-17-2025 Telephone encounter Note* Telephone Encounter - Jocelyn Kee MA - 10/09/2024 8:35 AM EDT Advised pt via [employer] to drop off CD at [employer] with his information attached and it would be directed to our office. Pt also notified that prescriptions that have been requested have been sent into the Pharmacy. Jocelyn Kee MA [facility]06-17-2025 Miscellaneous Notes* Telephone Encounter - Jocelyn Kee MA - 10/09/2024 8:35 AM EDT Advised pt via [employer] to drop off CD at [employer] [employer] [place] with his information attached and it would be directed to our office. Pt also notified that prescriptions that have been requested have been sent into the Pharmacy. Jocelyn Kee MA * Telephone Encounter - Bella Santos MD - 10/09/2024 8:26 AM EDT OK to refill as ordered Bella Santos MD * Telephone Encounter - Kenzie Prasad MA - 10/08/2024 2:43 PM EDT See [employer] message. Kenzie Prasad MA documented in [facility]06-[facility]-2025 Telephone encounter Note * Telephone Encounter - Bella Santos MD - 10/09/2024 8:26 AM EDT OK to refill as ordered Bella Santos MD [facility]06-16-20[facility] Telephone encounter Note* Telephone Encounter - Kenzie Prasad MA - 10/08/2024 2:43 PM EDT See [employer] message. Kenzie Prasad MA [facility]06-12-2025 NoteHNO ID: [id number] Author: MARLY CHILD, ? Service: ? Author Type: Physician Type: Progress Notes Filed: 10/04/2024 12:48 Note Text: Jose L Loaiza is a 79-year-old male presenting for follow-up of a plantar wart. Plantar Wart: - Wart located on the plantar aspect of the right foot, first noted on 08/14. - Initial size: 5 mm x 6 mm; measured 6 mm x 4 mm on 09/04. - Currently measures 5 mm x 4 mm. - Using Floro-Wart compound BID since 09/13; minimal improvement noted. - Covers wart with tape; reports occasional slippage. - Denies significant pain or discomfort, but notes rare discomfort when stepping on it the wrong way. - Concerns about potential impact of blood thinners on healing if excision is needed. Musculoskeletal: (-) pain PAST MEDICAL HISTORY Diagnosis Date Dyslipidemia Dyspnea on exertion Former smoker, stopped smoking in distant past HTN (hypertension) Kidney stones HARLEY on CPAP Rosacea Current Outpatient Medications Medication Sig Dispense Refill rosuvastatin (CRESTOR) 40 mg tablet Take 1 tablet by mouth daily at bedtime. 90 tablet 3 Cholecalciferol, Vitamin D3, 50 mcg (2,000 unit) cap Take 1 capsule by mouth once daily. 90 capsule 3 metoprolol tartrate, short acting, (LOPRESSOR) 25 mg tablet Take 1 tablet by mouth two times a day. 180 tablet 3 ELIQUIS 5 mg tab(s) Take 1 tablet by mouth two times a day. 180 tablet 3 losartan (COZAAR) 50 mg tablet Take 1 tablet by mouth once daily. 90 tablet 1 magnesium oxide 400 mg magnesium cap Take 1 capsule by mouth once daily. 90 capsule 3 Docusate Sodium 100 mg tab Take by mouth. TURMERIC ORAL Take by mouth once daily. doxycycline 20 mg tablet Take 1 tablet by mouth twice daily. tamsulosin ER (FLOMAX) 0.4 mg Take 1 capsule by mouth twice daily. Dr. Shaffer. acetaminophen (TYLENOL) 500 mg tablet Take 2 tablets by mouth every 6 hours. aspirin, enteric coated (ASPIRIN, ENTERIC COATED) 81 mg EC tablet Take 2 tablets by mouth once daily. glucosamine HCl/chondroitin harris (GLUCOSAMINE-CHONDROITIN ORAL) Take 1 tablet by mouth two times a day. No current facility-administered medications for this visit. Family History Problem Relation Age of Onset other (No CAD) Father Cancer Mother , lung Cancer Brother thyroid Objective There were no vitals taken for this visit. - Cardiovascular: Dorsalis pedis and posterior tibial pulses palpable on the right foot; capillary refill time <5 seconds; skin temperature warm proximally to distally. - Skin: Hyperkeratotic lesion measuring 4mm x 5mm on the plantar aspect of the right foot with mild maceration noted. Assessment AND Plan 1. Plantar wart (B07.0) - Lesion on the plantar aspect of the right foot, measuring 5mm x 4mm today, with mild maceration noted. - Previous measurements were 6mm x 4mm in August and 5mm x 6mm in July. - Skin lines are beginning to return, indicating healing progress. - Filed down the lesion with 15 blade and applied topical acid during the visit. - Continue using Floro-Wart compound twice daily. - Discussed alternative treatment options, including laser excision, which would require approximately 3 weeks of offloading pressure post-procedure. Patient prefers to continue with conservative care for now. - Scheduled follow-up in 3-4 weeks to reassess progress. Recording using [employer] software for draft documentation of the visit was discussed with the patient/authorized personal financial representative; all questions welcomed and answered. Patient/authorized personal financial representative agreed to proceed Marly Child, [facility]06-12-2025 History of Present illness Narrative* Marly Child - 10/04/2024 12:47 PM EDT Subjective Jocelyn Loaiza is a 79-year-old male presenting for follow-up of a plantar wart. Plantar Wart: - Wart located on the plantar aspect of the right foot, first noted on 08/14. - Initial size: 5 mm x 6 mm; measured 6 mm x 4 mm on 09/04. - Currently measures 5 mm x 4 mm. - Using Floro-Wart compound BID since 09/13; minimal improvement noted. - Covers wart with tape; reports occasional slippage. - Denies significant pain or discomfort, but notes rare discomfort when stepping on it the wrong way. - Concerns about potential impact of blood thinners on healing if excision is needed. Musculoskeletal: (-) pain PAST MEDICAL HISTORY Diagnosis Date Dyslipidemia Dyspnea on exertion Former smoker, stopped smoking in distant past HTN (hypertension) Kidney stones HARLEY on CPAP Rosacea Current Outpatient Medications Medication Sig Dispense Refill rosuvastatin (CRESTOR) 40 mg tablet Take 1 tablet by mouth daily at bedtime. 90 tablet 3 Cholecalciferol, Vitamin D3, 50 mcg (2,000 unit) cap Take 1 capsule by mouth once daily. 90 capsule3 metoprolol tartrate, short acting, (LOPRESSOR) 25 mg tablet Take 1 tablet by mouth two times a day.180 tablet 3 ELIQUIS 5 mg tab(s) Take 1 tablet by mouth two times a day. 180 tablet 3 losartan (COZAAR) 50 mg tablet Take 1 tablet by mouth once daily. 90 tablet 1 magnesium oxide 400 mg magnesium cap Take 1 capsule by mouth once daily. 90 capsule 3 Docusate Sodium 100 mg tab Take by mouth. TURMERIC ORAL Take by mouth once daily. doxycycline 20 mg tablet Take 1 tablet by mouth twice daily. tamsulosin ER (FLOMAX) 0.4 mg Take 1 capsule by mouth twice daily. Dr. Shaffer. acetaminophen (TYLENOL) 500 mg tablet Take 2 tablets by mouth every 6 hours. aspirin, enteric coated (ASPIRIN, ENTERIC COATED) 81 mg EC tablet Take 2 tablets by mouth once daily. glucosamine HCl/chondroitin harris (GLUCOSAMINE-CHONDROITIN ORAL) Take 1 tablet by mouth two times a day. No current facility-administered medications for this visit. Family History Problem Relation Age of Onset other (No CAD) Father Cancer Mother , lung Cancer Brother thyroid Objective There were no vitals taken for this visit. - Cardiovascular: Dorsalis pedis and posterior tibial pulses palpable on the right foot; capillary refill time <5 seconds; skin temperature warm proximally to distally. - Skin: Hyperkeratotic lesion measuring 4mm x 5mm on the plantar aspect of the right foot with mildmaceration noted. Assessment & Plan 1. Plantar wart (B07.0) - Lesion on the plantar aspect of the right foot, measuring 5mm x 4mm today, with mild maceration noted. - Previous measurements were 6mm x 4mm in August and 5mm x 6mm in July. - Skin lines are beginning to return, indicating healing progress. - Filed down the lesion with 15 blade and applied topical acid during the visit. - Continue using Floro-Wart compound twice daily. - Discussed alternative treatment options, including laser excision, which would require approximately 3 weeks of offloading pressure post-procedure. Patient prefers to continue with conservative care for now. - Scheduled follow-up in 3-4 weeks to reassess progress. Recording using [employer] software for draft documentation of the visit was discussed with the patient/authorized personal financial representative; all questions welcomed and answered. Patient/authorized personal financial representative agreed to proceed Malry Child DPM * Keya Washington MA - 10/04/2024 10:29 AM EDT Patient presents with: Right Foot - Follow Up: 1 month follow up wart right foot AMB ROOMING INTAKE FLOWSHEET DATA Patient denies any pain today. Feels the wart is about the same size after his treatment. [facility] Instructions* Patient Instructions* Marly Child - 10/04/2024 10:51 AM EDT - Leave today s acid treatment on the wart for 10 hours before removing the dressing. - After 10 hours, resume applying the Floro-Wart compound twice daily as you have been doing. - Keep the wart covered with tape (duct tape or similar) between treatments to help the medicine stay in place. - Return for a follow-up in about 3 to 4 weeks to check on progress and decide if further treatmentor removal is needed. documented in this encounterM[facility]06-[facility]25 NoteHNO ID: [id number] Author: KEYA WASHINGTON MA Service: ? Author Type: Fish Grader Type: Progress Notes Filed: 10/04/2024 12:48 Note Text: Patient presents with: Right Foot - Follow Up: 1 month follow up wart right foot AMB ROOMING INTAKE FLOWSHEET DATA Patient denies any pain today. Feels the wart is about the same size after his treatment.[facility]05-14-2025 NoteHNO ID: [id number] Author: MARLY CHILD, ? Service: ? Author Type: Physician Type: Progress Notes Filed: 09/05/2024 12:33 Note Text: Jose L Banks is a 78-year-old male presenting for follow-up of a plantar wart. Plantar Wart: - Wart on the plantar aspect of the second metatarsal, initially measured 5 mm x 6 mm on 08/14. - Currently using Compound W for treatment. - Denies pain associated with the wart. - Jocelyn is on anticoagulant therapy. Skin: (-) pain from right plantar lesion Objective There were no vitals taken for this visit. - Cardiovascular: Dorsalis pedis and posterior tibial pulses palpable on the right foot; capillary refill time <5 seconds. - Skin: - Right Foot: - Plantar aspect of the second metatarsal: Verruca measuring 6mm x 4mm with diverging skin lines. - Right heel and fifth metatarsal base: Porokeratotic lesions noted. 1. Plantar wart (B07.0) - Lesion on the plantar aspect of the second metatarsal measures 6mm x 4mm, similar to previous measurement on August 14. - Discussed treatment options including continued use of Compound W, referral to dermatology, or surgical removal via laser excision. - Prescribed Floro wart gel; apply daily with a cotton swab, cover surrounding area with Vaseline, and secure with a bandage. - Debrided the lesion with 15 blade and applied topical acid. - Follow-up in one month to assess progress. - if no improvement, could consider laser excision 2. Porokeratosis (Q82.8) - Identified porokeratotic lesions on the right heel and right fifth metatarsal base. - Debrided lesions with 15 blade and applied topical acid. - Advised continued use of Compound W until the prescribed Floro wart gel is received. Attestation Recording using [employer] software for draft documentation of the visit was discussed with the patient/authorized personal financial representative; all questions welcomed and answered. Patient/authorized personal financial representative agreed to proceed Marly Child [facility]05-14-2025 History of Present illness Narrative* Marly Child - 09/05/2024 12:32 PM EDT Subjective Jocelyn is a 78-year-old male presenting for follow-up of a plantar wart. Plantar Wart: - Wart on the plantar aspect of the second metatarsal, initially measured 5 mm x 6 mm on 08/14. - Currently using Compound W for treatment. - Denies pain associated with the wart. - Jocelyn is on anticoagulant therapy. Skin: (-) pain from right plantar lesion Objective There were no vitals taken for this visit. - Cardiovascular: Dorsalis pedis and posterior tibial pulses palpable on the right foot; capillary refill time <5 seconds. - Skin: - Right Foot: - Plantar aspect of the second metatarsal: Verruca measuring 6mm x 4mm with diverging skin lines. - Right heel and fifth metatarsal base: Porokeratotic lesions noted. 1. Plantar wart (B07.0) - Lesion on the plantar aspect of the second metatarsal measures 6mm x 4mm, similar to previous measurement on August 14. - Discussed treatment options including continued use of Compound W, referral to dermatology, or surgical removal via laser excision. - Prescribed Floro wart gel; apply daily with a cotton swab, cover surrounding area with Vaseline, and secure with a bandage. - Debrided the lesion with 15 blade and applied topical acid. - Follow-up in one month to assess progress. - if no improvement, could consider laser excision 2. Porokeratosis (Q82.8) - Identified porokeratotic lesions on the right heel and right fifth metatarsal base. - Debrided lesions with 15 blade and applied topical acid. - Advised continued use of Compound W until the prescribed Floro wart gel is received. Attestation Recording using [employer] software for draft documentation of the visit was discussed with the patient/authorized personal financial representative; all questions welcomed and answered. Patient/authorized personal financial representative agreed to proceed Marly Child DPM * Yumiko Donaldson RN - 09/04/2024 10:33 AM EDT Patient presents with: Right Foot - Established Patient, Follow Up, Wart Patient presents for follow up of right foot plantar wart. Patient is using compound W at home. Denies any pain. MEGGAN 08/14/24 documented in [facility] Instructions* Patient Instructions* Marly Child - 09/04/2024 11:01 AM EDT You have been prescribed Floro wart gel (a compounded topical medication) which will be mailed to you. Apply the Floro wart gel once every day using a cotton swab directly on each wart. After application, place a light film of Vaseline around the wart and cover it with tape or a bandage. Continue using your Compound W treatment until you receive the new gel. The wart on your right foot was filed down and acid was applied today; the same treatment approach was used on two additional small callused lesions. Leave the gel on for 10 hours each day as instructed. Please return for a follow-up appointment in about one month to assess your progress. documented in this encounterM[facility]05-[facility]25 NoteHNO ID: [id number] Author: YUMIKO DONALDSON RN Service: ? Author Type: Registered Nurse Type: Progress Notes Filed: 09/05/2024 12:33 Note Text: Patient presents with: Right Foot - Established Patient, Follow Up, Wart Patient presents for follow up of right foot plantar wart. Patient is using compound W at home. Denies any pain. MEGGAN 08/14/24[facility]04-22-[facility]25 Instructions* Patient Instructions* Marly Child - 08/14/2024 11:19 AM EDT Trichloroacetic acid (TCA) has been applied to the plantar warts. Rinse off in 12 hours and keep clean and dry. May bathe and shower normally starting the day after treatment The area is expected to burn and blister in about 1-3 days, if painful soak in plain, cool water. If blistered, you may drain the blister with a clean, STERILIZED needle and apply OTC antibiotic ointment and band aid to area. Repeat 2-3 times daily as needed. Tylenol or Aleve as needed for pain, provided you have no allergies to either of these. Keep scheduled follow up appointment to have wart(s) re-evaluated and/or additional treatments. documented in this encounterM[facility]04-[facility]-2025 NoteHNO ID: [id number] Author: MARLY CHILD, ? Service: ? Author Type: Physician Type: Progress Notes Filed: 08/14/2024 12:08 Note Text: FOLLOW UP PODIATRIC OFFICE VISIT Chief Complaint: This 78 year old who presents for follow up:wart of right foot Patient presents to clinic for follow-up right foot Using compound w Does report some discomfort with increased pressure PAIN EVALUATION No data found in the last 1 encounters. Hemoglobin A1C Date Value Ref Range Status 06/11/2024 5.4 4.3 - 5.6 % Final Comment: [place] [employer] guidelines indicate that patients with HgbA1c in the range 5.7-6.4% are at increased risk for development of diabetes, and intervention by lifestyle modification may be beneficial. HgbA1c greater or equal to 6.5% is considered diagnostic of diabetes. PCP: Bella Santos MD PAST MEDICAL HISTORY Diagnosis Date Dyslipidemia Dyspnea on exertion Former smoker, stopped smoking in distant past HTN (hypertension) Kidney stones HARLEY on CPAP Rosacea Current Outpatient Medications Medication Sig Cholecalciferol, Vitamin D3, 50 mcg (2,000 unit) cap Take 1 capsule by mouth once daily. metoprolol tartrate, short acting, (LOPRESSOR) 25 mg tablet Take 1 tablet by mouth two times a day. ELIQUIS 5 mg tab(s) Take 1 tablet by mouth two times a day. losartan (COZAAR) 50 mg tablet Take 1 tablet by mouth once daily. rosuvastatin (CRESTOR) 40 mg tablet Take 1 tablet by mouth daily at bedtime. magnesium oxide 400 mg magnesium cap Take 1 capsule by mouth once daily. Docusate Sodium 100 mg tab Take by mouth. TURMERIC ORAL Take by mouth once daily. doxycycline 20 mg tablet Take 1 tablet by mouth twice daily. tamsulosin ER (FLOMAX) 0.4 mg Take 1 capsule by mouth twice daily. Dr. Shaffer. acetaminophen (TYLENOL) 500 mg tablet Take 2 tablets by mouth every 6 hours. aspirin, enteric coated (ASPIRIN, ENTERIC COATED) 81 mg EC tablet Take 2 tablets by mouth once daily. No current facility-administered medications for this visit. ALLERGIES No Known Allergies PAST SURGICAL HISTORY Procedure Laterality Date COLONOSCOPY 2006 COLONOSCOPY FLX DX W/COLLJ SPEC WHEN PFRMD 02/15/2019 Colonoscopy HERNIA REPAIR HX childhood and 2007 x3 PAST SURGICAL HISTORY OF lithotripsy, multiple PAST SURGICAL HISTORY OF laser prostate TONSILLECTOMY HX Physical Exam: OBJECTIVE: Constitutional: Pt is a well developed 78 year old male who is alert, oriented, cooperative and in no apparent distress. Eyes: Following during examination. No redness or drainage. Respiratory: RR normal and nonlabored. Even breathing. No evidence of distress. Psychology: Patient is engaged during conversation. Normal affect and mood. Does not appear depressed or anxious. NVSI unchanged from previous visit. Dermatological: 5 mm x 6 mm verruca to right foot Iatrogenic abrasion of right foot due to adhesive bandage Musculoskeletal/Orthopaedic: Patient has no pain to palpation of right foot ASSESSMENT: (B07.0) Plantar wart (primary encounter diagnosis) PLAN: Discussed wart of right foot Wart does show reduction in size compared to last visit. Discussed options not limited to continued compound w vs rx cream vs laser excision Patient has opted to continue with compound w. Wart was debrided today with 15 blade. Tca applied under occlusion Discussed iatragenic lesion. Advised against strong adhesive bandage Follow-up in 3 weeks Marly Child [place] [id number] History of Present illness Narrative* Marly Child - 08/14/2024 11:11 AM EDT FOLLOW UP PODIATRIC OFFICE VISIT Chief Complaint: This 78 year old who presents for follow up:wart of right foot Patient presents to clinic for follow-up right foot Using compound w Does report some discomfort with increased pressure PAIN EVALUATION No data found in the last 1 encounters. Hemoglobin A1C Date Value Ref Range Status 06/11/2024 5.4 4.3 - 5.6 % Final Comment: [place] [employer] guidelines indicate that patients with HgbA1c in the range 5.7-6.4% are at increased risk for development of diabetes, and intervention by lifestyle modification may be beneficial. HgbA1c greater or equal to 6.5% is considered diagnostic of diabetes. PCP: Bella Santos MD PAST MEDICAL HISTORY Diagnosis Date Dyslipidemia Dyspnea on exertion Former smoker, stopped smoking in distant past HTN (hypertension) Kidney stones HARLEY on CPAP Rosacea Current Outpatient Medications Medication Sig Cholecalciferol, Vitamin D3, 50 mcg (2,000 unit) cap Take 1 capsule by mouth once daily. metoprolol tartrate, short acting, (LOPRESSOR) 25 mg tablet Take 1 tablet by mouth two times a day. ELIQUIS 5 mg tab(s) Take 1 tablet by mouth two times a day. losartan (COZAAR) 50 mg tablet Take 1 tablet by mouth once daily. rosuvastatin (CRESTOR) 40 mg tablet Take 1 tablet by mouth daily at bedtime. magnesium oxide 400 mg magnesium cap Take 1 capsule by mouth once daily. Docusate Sodium 100 mg tab Take by mouth. TURMERIC ORAL Take by mouth once daily. doxycycline 20 mg tablet Take 1 tablet by mouth twice daily. tamsulosin ER (FLOMAX) 0.4 mg Take 1 capsule by mouth twice daily. Dr. Shaffer. acetaminophen (TYLENOL) 500 mg tablet Take 2 tablets by mouth every 6 hours. aspirin, enteric coated (ASPIRIN, ENTERIC COATED) 81 mg EC tablet Take 2 tablets by mouth once daily. No current facility-administered medications for this visit. ALLERGIES No Known Allergies PAST SURGICAL HISTORY Procedure Laterality Date COLONOSCOPY 2005 COLONOSCOPY FLX DX W/COLLJ SPEC WHEN PFRMD 02/15/2019 Colonoscopy HERNIA REPAIR HX childhood and 2007 x3 PAST SURGICAL HISTORY OF lithotripsy, multiple PAST SURGICAL HISTORY OF laser prostate TONSILLECTOMY HX Physical Exam: OBJECTIVE: Constitutional: Pt is a well developed 78 year old male who is alert, oriented, cooperative and in no apparent distress. Eyes: Following during examination. No redness or drainage. Respiratory: RR normal and nonlabored. Even breathing. No evidence of distress. Psychology: Patient is engaged during conversation. Normal affect and mood. Does not appear depressed or anxious. NVSI unchanged from previous visit. Dermatological: 5 mm x 6 mm verruca to right foot Iatrogenic abrasion of right foot due to adhesive bandage Musculoskeletal/Orthopaedic: Patient has no pain to palpation of right foot ASSESSMENT: (B07.0) Plantar wart (primary encounter diagnosis) PLAN: Discussed wart of right foot Wart does show reduction in size compared to last visit. Discussed options not limited to continued compound w vs rx cream vs laser excision Patient has opted to continue with compound w. Wart was debrided today with 15 blade. Tca applied under occlusion Discussed iatragenic lesion. Advised against strong adhesive bandage Follow-up in 3 weeks Marly Child DPM * Ailin Gunn LPN - 08/14/2024 10:38 AM EDT AMB ROOMING INTAKE FLOWSHEET DATA Patient presents with: Right Foot - Established Patient, Follow Up, Wart Ailin Gunn LPN documented in [facility]04-[facility]25 NoteHNO ID: [id number] Author: AILIN GUNN LPN Service: ? Author Type: LICENSED NURSE Type: Progress Notes Filed: 08/14/2024 12:08 Note Text: AMB ROOMING INTAKE FLOWSHEET DATA Patient presents with: Right Foot - Established Patient, Follow Up, Wart [facility] Instructions* Patient Instructions* Marly Child - 07/12/2024 11:37 AM EDT Trichloroacetic acid (TCA) has been applied to the plantar warts. Rinse off in 12 hours and keep clean and dry. May bathe and shower normally starting the day after treatment The area is expected to burn and blister in about 1-3 days, if painful soak in plain, cool water. If blistered, you may drain the blister with a clean, STERILIZED needle and apply OTC antibiotic ointment and band aid to area. Repeat 2-3 times daily as needed. Tylenol or Aleve as needed for pain, provided you have no allergies to either of these. Keep scheduled follow up appointment to have wart(s) re-evaluated and/or additional treatments. documented in this [facility]03-[facility]25 NoteHNO ID: [id number] Author: MARLY CHILD, ? Service: ? Author Type: Physician Type: Progress Notes Filed: 07/12/2024 11:48 Note Text: FOLLOW UP PODIATRIC OFFICE VISIT Chief Complaint: This 78 year old who presents for follow up:wart of right foot. Patient presents to clinic for follow-up wart of right foot. Has been applying compound w to the wart. Here for evaluation Denies any pain to his right foot. Does report some occasional discomfort with stepping. PAIN EVALUATION No data found in the last 1 encounters. Hemoglobin A1C Date Value Ref Range Status 06/11/2024 5.4 4.3 - 5.6 % Final Comment: [place] [employer] guidelines indicate that patients with HgbA1c in the range 5.7-6.4% are at increased risk for development of diabetes, and intervention by lifestyle modification may be beneficial. HgbA1c greater or equal to 6.5% is considered diagnostic of diabetes. PCP: Bella Santos MD PAST MEDICAL HISTORY Diagnosis Date Dyslipidemia Dyspnea on exertion Former smoker, stopped smoking in distant past HTN (hypertension) Kidney stones HARLEY on CPAP Rosacea Current Outpatient Medications Medication Sig Cholecalciferol, Vitamin D3, 50 mcg (2,000 unit) cap Take 1 capsule by mouth once daily. metoprolol tartrate, short acting, (LOPRESSOR) 25 mg tablet Take 1 tablet by mouth two times a day. ELIQUIS 5 mg tab(s) Take 1 tablet by mouth two times a day. losartan (COZAAR) 50 mg tablet Take 1 tablet by mouth once daily. rosuvastatin (CRESTOR) 40 mg tablet Take 1 tablet by mouth daily at bedtime. magnesium oxide 400 mg magnesium cap Take 1 capsule by mouth once daily. Docusate Sodium 100 mg tab Take by mouth. TURMERIC ORAL Take by mouth once daily. doxycycline 20 mg tablet Take 1 tablet by mouth twice daily. tamsulosin ER (FLOMAX) 0.4 mg Take 1 capsule by mouth twice daily. Dr. Shaffer. acetaminophen (TYLENOL) 500 mg tablet Take 2 tablets by mouth every 6 hours. aspirin, enteric coated (ASPIRIN, ENTERIC COATED) 81 mg EC tablet Take 2 tablets by mouth once daily. No current facility-administered medications for this visit. ALLERGIES No Known Allergies PAST SURGICAL HISTORY Procedure Laterality Date COLONOSCOPY 2006 COLONOSCOPY FLX DX W/COLLJ SPEC WHEN PFRMD 02/15/2019 Colonoscopy HERNIA REPAIR HX childhood and 2006 x3 PAST SURGICAL HISTORY OF lithotripsy, multiple PAST SURGICAL HISTORY OF laser prostate TONSILLECTOMY HX Physical Exam: OBJECTIVE: Constitutional: Pt is a well developed 78 year old male who is alert, oriented, cooperative and in no apparent distress. Eyes: Following during examination. No redness or drainage. Respiratory: RR normal and nonlabored. Even breathing. No evidence of distress. Psychology: Patient is engaged during conversation. Normal affect and mood. Does not appear depressed or anxious. NVSI unchanged from previous visit. Dermatological: 8 mm x 7 mm verruca to right foot No other open wounds noted Musculoskeletal/Orthopaedic: Patient has pain to palpation of right foot at site of wart ASSESSMENT: (B07.0) Plantar wart (primary encounter diagnosis) PLAN: 1. Patient elects to proceed with additional chemical treatment of verruca at this time. Aware of risks, benefits of treatment. 2. Hyperkeratosis overlying lesions was debrided with 15 blade. Treatment number 2 applied, using TCA . 3. We discussed home instructions. Continue with compound w 4. RTC: 4 weeks. If lesion fails to improve, could consider laser Patient was instructed to call immediately if questions, concerns, pain arise prior to next appt. Discussed complaint of itching. No open wounds. Recommend trying powder between toes Marly Child [facility]03-20-2025 History of Present illness Narrative* Marly Child - 07/12/2024 11:30 AM EDT FOLLOW UP PODIATRIC OFFICE VISIT Chief Complaint: This 78 year old who presents for follow up:wart of right foot. Patient presents to clinic for follow-up wart of right foot. Has been applying compound w to the wart. Here for evaluation Denies any pain to his right foot. Does report some occasional discomfort with stepping. PAIN EVALUATION No data found in the last 1 encounters. Hemoglobin A1C Date Value Ref Range Status 06/11/2024 5.4 4.3 - 5.6 % Final Comment: [place] [employer] guidelines indicate that patients with HgbA1c in the range 5.7-6.4% are at increased risk for development of diabetes, and intervention by lifestyle modification may be beneficial. HgbA1c greater or equal to 6.5% is considered diagnostic of diabetes. PCP: Bella Santos MD PAST MEDICAL HISTORY Diagnosis Date Dyslipidemia Dyspnea on exertion Former smoker, stopped smoking in distant past HTN (hypertension) Kidney stones HARLEY on CPAP Rosacea Current Outpatient Medications Medication Sig Cholecalciferol, Vitamin D3, 50 mcg (2,000 unit) cap Take 1 capsule by mouth once daily. metoprolol tartrate, short acting, (LOPRESSOR) 25 mg tablet Take 1 tablet by mouth two times a day. ELIQUIS 5 mg tab(s) Take 1 tablet by mouth two times a day. losartan (COZAAR) 50 mg tablet Take 1 tablet by mouth once daily. rosuvastatin (CRESTOR) 40 mg tablet Take 1 tablet by mouth daily at bedtime. magnesium oxide 400 mg magnesium cap Take 1 capsule by mouth once daily. Docusate Sodium 100 mg tab Take by mouth. TURMERIC ORAL Take by mouth once daily. doxycycline 20 mg tablet Take 1 tablet by mouth twice daily. tamsulosin ER (FLOMAX) 0.4 mg Take 1 capsule by mouth twice daily. Dr. Shaffer. acetaminophen (TYLENOL) 500 mg tablet Take 2 tablets by mouth every 6 hours. aspirin, enteric coated (ASPIRIN, ENTERIC COATED) 81 mg EC tablet Take 2 tablets by mouth once daily. No current facility-administered medications for this visit. ALLERGIES No Known Allergies PAST SURGICAL HISTORY Procedure Laterality Date COLONOSCOPY 2006 COLONOSCOPY FLX DX W/COLLJ SPEC WHEN PFRMD 02/15/2019 Colonoscopy HERNIA REPAIR HX childhood and 2007 x3 PAST SURGICAL HISTORY OF lithotripsy, multiple PAST SURGICAL HISTORY OF laser prostate TONSILLECTOMY HX Physical Exam: OBJECTIVE: Constitutional: Pt is a well developed 78 year old male who is alert, oriented, cooperative and in no apparent distress. Eyes: Following during examination. No redness or drainage. Respiratory: RR normal and nonlabored. Even breathing. No evidence of distress. Psychology: Patient is engaged during conversation. Normal affect and mood. Does not appear depressed or anxious. NVSI unchanged from previous visit. Dermatological: 8 mm x 7 mm verruca to right foot No other open wounds noted Musculoskeletal/Orthopaedic: Patient has pain to palpation of right foot at site of wart ASSESSMENT: (B07.0) Plantar wart (primary encounter diagnosis) PLAN: 1. Patient elects to proceed with additional chemical treatment of verruca at this time. Aware of risks, benefits of treatment. 2. Hyperkeratosis overlying lesions was debrided with 15 blade. Treatment number 2 applied, using TCA . 3. We discussed home instructions. Continue with compound w 4. RTC: 4 weeks. If lesion fails to improve, could consider laser Patient was instructed to call immediately if questions, concerns, pain arise prior to next appt. Discussed complaint of itching. No open wounds. Recommend trying powder between toes Marly Child DPM * Yumiko Donaldson RN - 07/12/2024 11:20 AM EDT Patient presents with: Right Foot - Established Patient, Follow Up, Wart Left Foot - Established Patient, Itching Patient presents for 3 week follow up right foot plantar wart. States he has been using Compound W at home on it. Also states that he has had itching between his 3rd and 4th and 4th and 5th toes for the last few months, denies any rash or ulcers. MEGGAN 06/19/24 documented in this [facility]03-[facility]25 NoteHNO ID: [id number] Author: YUMIKO DONALDSON RN Service: ? Author Type: Registered Nurse Type: Progress Notes Filed: 07/12/2024 11:48 Note Text: Patient presents with: Right Foot - Established Patient, Follow Up, Wart Left Foot - Established Patient, Itching Patient presents for 3 week follow up right foot plantar wart. States he has been using Compound W at home on it. Also states that he has had itching between his 3rd and 4th and 4th and 5th toes for the last few months, denies any rash or ulcers. MEGGAN 06/19/24[facility]03-[facility] Telephone encounter Note* Telephone Encounter - Ina Delgado LPN - 07/03/2024 6:41 AM EDT Prescription Refill Information The patient has been identified by name and date of : Yes Caregiver verified no other encounters exist for this prescription request: Yes Caregiver confirmed with patient/requestor that no other refills are due, in the near future, with this provider at this time: Yes The last office visit in the department: 06/11/2024 Does the patient have a future office visit with this provider/department: Yes Requested Prescriptions Pending Prescriptions Disp Refills Cholecalciferol, Vitamin D3, 50 mcg (2,000 unit) cap 90 capsule 3 Sig: Take 1 capsule by mouth once daily. Ina Delgado LPN July 03, 2024 6:42 AM [facility]03[facility] Miscellaneous Notes* Telephone Encounter - Ina Delgado LPN - 07/03/2024 6:41 AM EDT Prescription Refill Information The patient has been identified by name and date of : Yes Caregiver verified no other encounters exist for this prescription request: Yes Caregiver confirmed with patient/requestor that no other refills are due, in the near future, with this provider at this time: Yes The last office visit in the department: 06/11/2024 Does the patient have a future office visit with this provider/department: Yes Requested Prescriptions Pending Prescriptions Disp Refills Cholecalciferol, Vitamin D3, 50 mcg (2,000 unit) cap 90 capsule 3 Sig: Take 1 capsule by mouth once daily. Ina Delgado LPN July 03, 2024 6:42 AM documented in [facility] Instructions* Patient Instructions* Marly Child - 06/19/2024 3:55 PM EST Trichloroacetic acid (TCA) has been applied to the plantar warts. Rinse off in 12 hours and keep clean and dry. May bathe and shower normally starting the day after treatment The area is expected to burn and blister in about 1-3 days, if painful soak in plain, cool water. If blistered, you may drain the blister with a clean, STERILIZED needle and apply OTC antibiotic ointment and band aid to area. Repeat 2-3 times daily as needed. Tylenol or Aleve as needed for pain, provided you have no allergies to either of these. Keep scheduled follow up appointment to have wart(s) re-evaluated and/or additional treatments. Would recommend compound w to wart daily. Use file once weekly to reduce any callus to area around wart Can apply padding to shoe insert to eliminate pressure Color area of wart with magic marker Step on insert Place donut hole pad around color transfer documented in this encounterM[facility]25 History of Present illness Narrative* Marly Child - 06/19/2024 3:41 PM EST Images from the original note were not included. Consultation requested by Dr. Santos for an opinion regarding wart. My final recommendations will be communicated back to the requesting physician by way of shared Medical record or letter to requesting physician via US mail. Initial Podiatric Office Visit: Chief Complaint: This 78 year old male who presents with chief complaint:painful wart to right foot HPI Patient presents to clinic for evaluation of right foot Complains of wart to the right foot Has been present for a couple of months Hurts with pressure Tried over the counter medication but no improvement. PAIN EVALUATION 06/12/2024 1530 Pain Level: 2 Pain Location: Foot-Right Description: Sharp Duration Amount of Time: 1 Duration Units: Minutes Frequency: Intermittent Intervention/Comfort measure: Reposition;Positioning Comments: Pain is sharp, but momentary when I step down on the ball of my foot. Hemoglobin A1C (%) Date Value 06/11/2024 5.4 11/24/2023 5.2 05/05/2023 5.4 11/04/2022 5.5 05/04/2022 5.6 05/05/2021 5.8 06/02/2019 5.2 PCP: Bella Santos MD PAST MEDICAL HISTORY Diagnosis Date Dyslipidemia Dyspnea on exertion Former smoker, stopped smoking in distant past HTN (hypertension) Kidney stones HARLEY on CPAP Rosacea Current Outpatient Medications Medication Sig metoprolol tartrate, short acting, (LOPRESSOR) 25 mg tablet Take 1 tablet by mouth two times a day. ELIQUIS 5 mg tab(s) Take 1 tablet by mouth two times a day. losartan (COZAAR) 50 mg tablet Take 1 tablet by mouth once daily. rosuvastatin (CRESTOR) 40 mg tablet Take 1 tablet by mouth daily at bedtime. Cholecalciferol, Vitamin D3, 50 mcg (2,000 unit) cap Take 1 capsule by mouth once daily. magnesium oxide 400 mg magnesium cap Take 1 capsule by mouth once daily. Docusate Sodium 100 mg tab Take by mouth. TURMERIC ORAL Take by mouth once daily. doxycycline 20 mg tablet Take 1 tablet by mouth twice daily. tamsulosin ER (FLOMAX) 0.4 mg Take 1 capsule by mouth twice daily. Dr. Shaffer. acetaminophen (TYLENOL) 500 mg tablet Take 2 tablets by mouth every 6 hours. aspirin, enteric coated (ASPIRIN, ENTERIC COATED) 81 mg EC tablet Take 2 tablets by mouth once daily. No current facility-administered [...] Social History Tobacco Use Smoking status: Former Current packs/day: 0.00 Average packs/day: 1 pack/day for 7.0 years (7.0 ttl pk-yrs) Types: Cigarettes Start date: 12/27/1969 Quit date: 12/27/1976 Years since quittin.5 Smokeless tobacco: Never Tobacco comments: on and off Vaping Use Vaping status: Never Used Substance Use Topics Alcohol use: Yes Comment: [...] Exam: Constitutional: Pt is a well developed 78 year old male who is alert, oriented [...] digits 1-5 b/l Skin temperature warm to warm proximal to distal b/l Hair growth present to digits Neurological: intact light touch/epicritic sensation b/l intact protective sensation no significant neurological deficits Dermatological: Nails 1-5 b/l appear normal. Webspaces clean and dry 1-4 b/l. Skin appears well hydrated and supple. good color, texture, turgor. No open lesions present. 1 cm x 1 cm verruca to right forefoot. Very small callus to right heel and right lateral arch Musculoskeletal/Orthopaedic: Patient has pain to palpation of right foot verruca Radiographs: n/a ASSESSMENT: (B07.0) Plantar wart PLAN: Initial Podiatric Office Visit- the etiology of the patient's complaint along with treatment options were explained to the patient. They chose the following treatment: 1. Discussed with the patient the options for treatment. We discussed the nature of verrucas, that they can be resistant to treatment and that recurrence can occur. Discussed the risk of scarring andpain with treatment. 2. Patient elects to proceed with debridement and TCA application. We discussed the risks, benefits, and alternatives. Hyperkeratosis overlying lesions was debrided with 15 blade. Treatment number 1 applied today under occlusion. Home instructions were given. Can apply compound w to wart daily. 3. RTC: 3 weeks to check progress. 4. Small callus to heel reduced with 15 blade to assure no wart. There is only one wart to foot as discussed above Patient was instructed to call immediately if questions, concerns, pain arise prior to next appt. Marly Child DPM Podiatry [address] [facility] [address] Dept: [phone] Dept * Keya Washington MA - 06/19/2024 3:30 PM EST Patient presents with: Right Foot - New: Plantar wart AMB ROOMING INTAKE FLOWSHEET DATA Pain Pain Level: 2 Pain Location: Foot-Right Description: Sharp Duration Amount of Time: 1 Duration Units: Minutes Frequency: Intermittent Intervention/Comfort measure: Reposition, Positioning Comments: Pain is sharp, but momentary when I step down on the ball of my foot. Patient states he has had a wart on the ball of his foot for several months. He has tried OTC wart removals and did not work. Taking no med's for the pain., documented in this encounterM[facility]02-25-2025 NoteHNO ID: [id number] Author: MARLY CHILD, ? Service: ? Author Type: Physician Type: Progress Notes Filed: 06/19/2024 15:58 Note Text: Consultation requested by Dr. Santos for an opinion regarding wart. My final recommendations will be communicated back to the requesting physician by way of shared Medical record or letter to requesting physician via US mail. Initial Podiatric Office Visit: Chief Complaint: This 78 year old male who presents with chief complaint:painful wart to right foot HPI Patient presents to clinic for evaluation of right foot Complains of wart to the right foot Has been present for a couple of months Hurts with pressure Tried over the counter medication but no improvement. PAIN EVALUATION 06/12/2024 1530 Pain Level: 2 Pain Location: Foot-Right Description: Sharp Duration Amount of Time: 1 Duration Units: Minutes Frequency: Intermittent Intervention/Comfort measure: Reposition;Positioning Comments: Pain is sharp, but momentary when I step down on the ball of my foot. Hemoglobin A1C (%) Date Value 06/11/2024 5.4 11/24/2023 5.2 05/05/2023 5.4 11/04/2022 5.5 05/04/2022 5.6 05/05/2021 5.8 06/02/2019 5.2 PCP: Bella Santos MD PAST MEDICAL HISTORY Diagnosis Date Dyslipidemia Dyspnea on exertion Former smoker, stopped smoking in distant past HTN (hypertension) Kidney stones HARLEY on CPAP Rosacea Current Outpatient Medications Medication Sig metoprolol tartrate, short acting, (LOPRESSOR) 25 mg tablet Take 1 tablet by mouth two times a day. ELIQUIS 5 mg tab(s) Take 1 tablet by mouth two times a day. losartan (COZAAR) 50 mg tablet Take 1 tablet by mouth once daily. rosuvastatin (CRESTOR) 40 mg tablet Take 1 tablet by mouth daily at bedtime. Cholecalciferol, Vitamin D3, 50 mcg (2,000 unit) cap Take 1 capsule by mouth once daily. magnesium oxide 400 mg magnesium cap Take 1 capsule by mouth once daily. Docusate Sodium 100 mg tab Take by mouth. TURMERIC ORAL Take by mouth once daily. doxycycline 20 mg tablet Take 1 tablet by mouth twice daily. tamsulosin ER (FLOMAX) 0.4 mg Take 1 capsule by mouth twice daily. Dr. Shaffer. acetaminophen (TYLENOL) 500 mg tablet Take 2 tablets by mouth every 6 hours. aspirin, enteric coated (ASPIRIN, ENTERIC COATED) 81 mg EC tablet Take 2 tablets by mouth once daily. No current facility-administered [...] Social History Tobacco Use Smoking status: Former Current packs/day: 0.00 Average packs/day: 1 pack/day for 7.0 years (7.0 ttl pk-yrs) Types: Cigarettes Start date: 12/27/1969 Quit date: 12/27/1976 Years since quittin.5 Smokeless tobacco: Never Tobacco comments: on and off Vaping Use Vaping status: Never Used Substance Use Topics Alcohol use: Yes Comment: [...] Exam: Constitutional: Pt is a well developed 78 year old male who is alert, oriented [...] digits 1-5 b/l Skin temperature warm to warm proximal to distal b/l Hair growth present to digits Neurological: intact light touch/epicritic sensation b/l intact protective sensation no significant neurological deficits Dermatological: Nails 1-5 b/l appear normal. Webspaces clean and dry 1-4 b/l. Skin appears well hydrated and supple. good color, texture, turgor. No open lesions present. 1 cm (more content not included)...[facility]02-25-2025 NoteHNO ID: [id number] Author: KEYA WASHINGTON MA Service: ? Author Type: Fish Grader Type: Progress Notes Filed: 06/19/2024 15:58 Note Text: Patient presents with: Right Foot - New: Plantar wart AMB ROOMING INTAKE FLOWSHEET DATA Pain Pain Level: 2 Pain Location: Foot-Right Description: Sharp Duration Amount of Time: 1 Duration Units: Minutes Frequency: Intermittent Intervention/Comfort measure: Reposition, Positioning Comments: Pain is sharp, but momentary when I step down on the ball of my foot. Patient states he has had a wart on the ball of his foot for several months. He has tried OTC wart removals and did not work. Taking no med's for the pain., [facility]02-17-2025 History of Present illness Narrative* Bella Santos MD - 06/11/2024 6:40 PM EST Chief Complaint Patient presents with: F/U 6 Month HPI Jocelyn Loaiza is a 78 year old male who presents here today for his pre scheduled 6 month follow up and suture removal.. Pt tripped and fell while in [facility] on 05/31, laceration above right eye, received 6 stitches and requesting removal today while in office. Denies any injury related to his fall. No LOC or concussion symptoms. Did not have CT done. No bowel, GI, or urinary issues. Has Anusol rectal cream prn and Docusate to use as needed. Taking Flomax 0.4 mg daily. Following with Urologist Dr. Shaffer. GERD sx have been controlled without medications. HTN & A-fib: Checking BP at home, reports BP hasn't been the greatest this past week with readings of 150/80's. Notes over the weekend it was better. Denies any chest pains, dizziness, or SOB. Taking Losartan 50 mg daily and Lopressor 25 mg 1 pill BID. Follows with Cardio Dr. Agarwal. Taking Eliquis 5 mg 1 pill BID. Depression/LIANNA: Stable, no longer on any medications. Was on Prozac and Zoloft in past but didn't have much difference with medications. Doing some grief counseling with Hospice. Lipid: Hx of elevated glucose, but not on any medications at this time. Is taking Crestor 40 mg daily and ASA 81 mg daily. Tries to watch diet, reports he needs to do better with this. Exercising andenjoys hiking. Rosacea: Taking Doxycyline 20 mg 1 pill BID. Still has lesion on bottom of right foot; not improved with OTC treatment. HM - Declines Hep C screening. Has Adv Dir/Living Will. Agreeable to Covid vaccine. Past medical history, appointments, medications, allergies reviewed. [...] Medication Sig metoprolol tartrate, short acting, (LOPRESSOR) 25 mg tablet Take 1 tablet by mouth two times a day. ELIQUIS 5 mg tab(s) Take 1 tablet by mouth two times a day. losartan (COZAAR) 50 mg tablet Take 1 tablet by mouth once daily. rosuvastatin (CRESTOR) 40 mg tablet Take 1 tablet by mouth daily at bedtime. Cholecalciferol, Vitamin D3, 50 mcg (2,000 unit) cap Take 1 capsule by mouth once daily. magnesium oxide 400 mg magnesium cap Take 1 capsule by mouth once daily. Docusate Sodium 100 mg tab Take by mouth. TURMERIC ORAL Take by mouth once daily. doxycycline 20 mg tablet Take 1 tablet by mouth twice daily. tamsulosin ER (FLOMAX) 0.4 mg Take 1 capsule by mouth twice daily. Dr. Shaffer. acetaminophen (TYLENOL) 500 mg tablet Take 2 tablets by mouth every 6 hours. aspirin, enteric coated (ASPIRIN, ENTERIC COATED) 81 mg EC tablet Take 2 tablets by mouth once daily. [DISCONTINUED] furosemide (LASIX) 20 mg tablet Take 1 tablet by mouth once daily. No current facility-administered medications on file prior to visit. Social History Social History Tobacco Use Smoking status: Former Current packs/day: 0.00 Average packs/day: 1 pack/day for 7.0 years (7.0 ttl pk-yrs) Types: Cigarettes Start date: 12/27/1969 Quit date: 12/27/1976 Years since quittin.4 Smokeless tobacco: Never Tobacco comments: on and off Vaping Use Vaping status: Never Used Substance Use Topics Alcohol use: Yes Comment: occasional Drug use: No EXAM: BP 138/80 Pulse 64 Resp 16 Wt 77.8 kg (171 lb 8.3 oz) BMI 26.47 kg/m General Appearance: Well appearing, alert, in no acute distress, well-hydrated, well nourished.. Skin: 6 sutures removed from right eyebrow without difficulty. Plantar wart at ball of right foot. Lungs: Lungs clear to auscultation. No wheezing, rhonchi, rales.. Heart: RRR without murmur, gallop, or rubs. No ectopy. Health Maintenance List Hepatitis C Screening Never done Covid-19 Vaccine( season) due on 12/25/2023 Advance Directive Discussion due on 04/25/2024 RSV Vaccine(1 - 1-dose 75+ series) due on 08/15/2024 Shingrix Vaccine(1 of 2) due on 08/15/2024 Influenza Vaccine(1) due on 10/22/2024 LDL Cholesterol due on 11/23/2024 Depression Screening due on 11/28/2024 Anxiety Screening due on 11/28/2024 Annual PCP Team Chronic Disease Visit due on 03/29/2025 BP Controlled (<130/80) due on 05/07/2025 DTaP,Tdap,Td Vaccine(2 - Td or Tdap) due on 02/07/2027 Diabetes Screening due on 06/11/2027 Pneumococcal Vaccine: 50+ Completed Colorectal Cancer Screening Discontinued Data reviewed Appointment on 06/11/2024 Component Date Value Hemoglobin A1C 06/11/2024 5.4 Estimated Average Glucose 06/11/2024 108 WBC 06/11/2024 5.57 RBC 06/11/2024 5.55 Hemoglobin 06/11/2024 17.1 (H) Hematocrit 06/11/2024 52.6 (H) MCV 06/11/2024 94.8 MCH 06/11/2024 30.8 MCHC 06/11/2024 32.5 RDW-CV 06/11/2024 12.1 Platelet Count 06/11/2024 268 MPV 06/11/2024 9.5 Neutrophils % 06/11/2024 55.7 Abs Neut 06/11/2024 3.10 Lymphocytes % 06/11/2024 27.1 Abs Lymph 06/11/2024 1.51 Monocytes % 06/11/2024 12.4 Abs Mccreary 06/11/2024 0.69 Eosinophils % 06/11/2024 3.2 Abs Eosin 06/11/2024 0.18 Basophils % 06/11/2024 1.1 Abs Baso 06/11/2024 0.06 Immature Granulocytes % 06/11/2024 0.5 Abs Immature Gran 06/11/2024 0.03 NRBC 06/11/2024 0.0 Absolute nRBC 06/11/2024 <0.01 Diff Type 06/11/2024 Auto ASSESSMENT/PLAN: 1. Essential hypertension - ICD9: 401.9, ICD10: I10 (primary diagnosis) - Controlled - Continue current medications - Recommend home blood pressure monitoring, to bring results to next visit - Encouraged sodium restriction, DASH or Mediterranean diet - Recommend regular aerobic exercise - COMPREHENSIVE METABOLIC PANEL - LIPID PANEL BASIC - COMPLETE BLOOD COUNT AND DIFFERENTIAL 2. Elevated glucose - ICD9: 790.29, ICD10: R73.09 - COMPREHENSIVE METABOLIC PANEL - LIPID PANEL BASIC - HEMOGLOBIN A1C 3. Dyslipidemia - ICD9: 272.4, ICD10: E78.5 - Controlled - Continue current medications - Counseled on healthy diet and regular exercise - COMPREHENSIVE METABOLIC PANEL - LIPID PANEL BASIC 4. Anxiety and depression - ICD9: 300.00, 311, ICD10: F41.9, F32.A Stable off meds 5. 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 - ICD9: 414.05, ICD10: I25.810 Stable Continue current medications. Follow with Cardiology 6. Paroxysmal atrial fibrillation (HCC) - ICD9: 427.31, ICD10: I48.0 Stable 7. Hx of CABG - ICD9: V45.81, ICD10: Z95.1 8. Benign prostatic hyperplasia without lower urinary tract symptoms - ICD9: 600.00, ICD10: N40.0 9. Visit for suture removal - ICD9: V58.32, ICD10: Z48.02 Sutures removed; no further care needed; would well healed 10. Encounter for immunization - ICD9: V03.89, ICD10: Z23 - [email or web address] COVID-19 VACCINE AGE 12+ YR (COMIRNATY) 11. Plantar wart - ICD9: 078.12, ICD10: B07.0 - CONSULT TO PODIATRY Follow up in 6 months Medical Decision Making: Problems: Moderate: 2+ stable chronic illnesses Data: Unique test result(s) reviewed: 2 Unique test(s) ordered: 3+ Risk: Moderate: Drug management Medical Decision Making Level: 4 - Moderate Bella Santos MD documented in this encounterM[facility]02-[facility] NoteHNO ID: [id number] Author: BELLA SANTOS MD Service: ? Author Type: Physician Type: Progress Notes Filed: 06/11/2024 20:24 Note Text: Chief Complaint Patient presents with: F/U 6 Month HPI Jocelyn Loaiza is a 78 year old male who presents here today for his pre scheduled 6 month follow up and suture removal.. Pt tripped and fell while in [place] on 05/31, laceration above right eye, received 6 stitches and requesting removal today while in office. Denies any injury related to his fall. No LOC or concussion symptoms. Did not have CT done. No bowel, GI, or urinary issues. Has Anusol rectal cream prn and Docusate to use as needed. Taking Flomax 0.4 mg daily. Following with Urologist Dr. Shaffer. GERD sx have been controlled without medications. HTN AND A-fib: Checking BP at home, reports BP hasn't been the greatest this past week with readings of 150/80's. Notes over the weekend it was better. Denies any chest pains, dizziness, or SOB. Taking Losartan 50 mg daily and Lopressor 25 mg 1 pill BID. Follows with Cardio Dr. Agarwal. Taking Eliquis 5 mg 1 pill BID. Depression/LIANNA: Stable, no longer on any medications. Was on Prozac and Zoloft in past but didn't have much difference with medications. Doing some grief counseling with Hospice. Lipid: Hx of elevated glucose, but not on any medications at this time. Is taking Crestor 40 mg daily and ASA 81 mg daily. Tries to watch diet, reports he needs to do better with this. Exercising and enjoys hiking. Rosacea: Taking Doxycyline 20 mg 1 pill BID. Still has lesion on bottom of right foot; not improved with OTC treatment. HM - Declines Hep C screening. Has Adv Dir/Living Will. Agreeable to Covid vaccine. Past medical history, appointments, medications, allergies reviewed. [...] Medication Sig metoprolol tartrate, short acting, (LOPRESSOR) 25 mg tablet Take 1 tablet by mouth two times a day. ELIQUIS 5 mg tab(s) Take 1 tablet by mouth two times a day. losartan (COZAAR) 50 mg tablet Take 1 tablet by mouth once daily. rosuvastatin (CRESTOR) 40 mg tablet Take 1 tablet by mouth daily at bedtime. Cholecalciferol, Vitamin D3, 50 mcg (2,000 unit) cap Take 1 capsule by mouth once daily. magnesium oxide 400 mg magnesium cap Take 1 capsule by mouth once daily. Docusate Sodium 100 mg tab Take by mouth. TURMERIC ORAL Take by mouth once daily. doxycycline 20 mg tablet Take 1 tablet by mouth twice daily. tamsulosin ER (FLOMAX) 0.4 mg Take 1 capsule by mouth twice daily. Dr. Shaffer. acetaminophen (TYLENOL) 500 mg tablet Take 2 tablets by mouth every 6 hours. aspirin, enteric coated (ASPIRIN, ENTERIC COATED) 81 mg EC tablet Take 2 tablets by mouth once daily. [DISCONTINUED] furosemide (LASIX) 20 mg tablet Take 1 tablet by mouth once daily. No current facility-administered medications on file prior to visit. Social History Social History Tobacco Use Smoking status: Former Current packs/day: 0.00 Average packs/day: 1 pack/day for 7.0 years (7.0 ttl pk-yrs) Types: Cigarettes Start date: 12/27/1969 Quit date: 12/27/1976 Years since quittin.4 Smokeless tobacco: Never Tobacco comments: on and off Vaping Use Vaping status: Never Used Substance Use Topics Alcohol use: Yes Comment: occasional Drug use: No EXAM: BP 138/80 Pulse 64 Resp 16 Wt 77.8 kg (171 lb 8.3 oz) BMI 26.47 kg/m? General Appearance: Well appearing, alert, in no acute distress, well-hydrated, well nourished.. Skin: 6 sutures removed from right eyebrow without difficulty. Plantar wart at ball of right foot. Lungs: Lungs clear to auscultation. No wheezing, rhonchi, rales.. Heart: RRR without murmur, gallop, or rubs. No ectopy. Health Maintenance List Hepatitis C Screening Never done Covid-19 Vaccine( season) due on 12/25/2023 Advance Directive Discussion due on 04/25/2024 RSV Vaccine(1 - 1-dose 75+ series) due on 08/15/2024 Shingrix Vaccine(1 of 2) due on 08/15/2024 Influenza Vaccine(1) due on 10/22/2024 LDL Cholesterol due on 11/23/2024 Depression Screening due on 11/28/2024 Anxiety Screening due on 11/28/2024 Annual PC (more content not included)...[facility]02-06-2025 Telephone encounter Note* Telephone Encounter - Kenzie Prasad MA - 05/31/2024 8:22 AM EST Pt notified that I have cancelled his 6 month follow on 06/14/24 and moved it up to 06/11/24 so we can also remove his sutures. Advised pt to notify office if this does not work for him. Kenzie Prasad MA [facility]02-06-2025 Miscellaneous Notes* Telephone Encounter - Kenzie Prasad MA - 05/31/2024 8:22 AM EST Pt notified that I have cancelled his 6 month follow on 06/14/24 and moved it up to 06/11/24 so we can also remove his sutures. Advised pt to notify office if this does not work for him. Kenzie Prasad MA documented in this encounterM[facility]01-17-2025 Telephone encounter Note * Telephone Encounter - Jocelyn Kee MA - 05/11/2024 8:07 AM EST See pt message. Has current refill encounter sent to Cardio at this time, but no response from Cardio office. Do you want to go ahead and send this in for him since he's receiving medication from there office? Advise? There is a current refill encounter open for Cardio at this time. Jocelyn Kee MA [facility]01-17-2025 Miscellaneous Notes* Telephone Encounter - Jocelyn Kee MA - 05/11/2024 8:07 AM EST See pt message. Has current refill encounter sent to Cardio at this time, but no response from Cardio office. Do you want to go ahead and send this in for him since he's receiving medication from there office? Advise? There is a current refill encounter open for Cardio at this time. Jocelyn Kee MA * Telephone Encounter - Jocelyn Kee MA - 05/10/2024 9:12 AM EST Current refill in to Cardio and has been directed to Cardio Provider already. Pt made aware that PCP is out of the office. To avoid duplicating, notified pt that this should be taken care of by Cardio. Will watch for Cardio to take care of this. Jocelyn Kee MA documented in this encounterM[facility]01-16-2025 Telephone encounter Note * Telephone Encounter - Jocelyn Kee MA - 05/10/2024 9:12 AM EST Current refill in to Cardio and has been directed to Cardio Provider already. Pt made aware that PCP is out of the office. To avoid duplicating, notified pt that this should be taken care of by Cardio. Will watch for Cardio to take care of this. Jocelyn Kee [facility] Telephone encounter Note* Telephone Encounter - Bouchra Spence MA - 05/09/2024 9:20 AM EST Patient phones requesting refills as follows: Requested Prescriptions Pending Prescriptions Disp Refills metoprolol tartrate, short acting, (LOPRESSOR) 25 mg tablet 180 tablet 3 Sig: Take 1 tablet by mouth two times a day. Please review and advise. Bouchra Spence MA [facility]01-15-2025 Miscellaneous Notes* Telephone Encounter - Bouchra Spence MA - 05/09/2024 9:20 AM EST Patient phones requesting refills as follows: Requested Prescriptions Pending Prescriptions Disp Refills metoprolol tartrate, short acting, (LOPRESSOR) 25 mg tablet 180 tablet 3 Sig: Take 1 tablet by mouth two times a day. Please review and advise. Bouchra Spence MA documented in this encounterM[facility] Hospital01-13-[facility]25 History of Present illness Narrative* Drake Agarwal MD - 05/07/2024 8:20 AM EST Images from the original note were not included. [facility] SECTION OF REGIONAL CARDIOLOGY Cardiology ([facility]) [address] [facility] [id number] OUTPATIENT VISIT DATE 05/07/2024 PRIMARY CARE PHYSICIAN: Bella Santos [address] [place] [address] HISTORY OF PRESENT ILLNESS: Mr. Loaiza is a 78 year old gentleman with a history of coronary artery disease prior coronary bypass grafting (May 2019), paroxysmal atrial fibrillation, hypertension, and dyslipidemia who presents for routine follow-up. Unfortunately, his in February. Stress and ended up inthe emergency room the day before Thanksgiving. He ruled out for an acute coronary syndrome. They discussed possibly forming a stress test. Patient had declined. Since then, he has been doing well. He has occasional episodes of chest pain. Although, they are not reproducible with exertion. He hiked2.3 miles yesterday and had no difficulties completing his hike. He denied chest pain, chest pressur e, or shortness of breath. He has not had palpitations, lightheadedness, dizziness, or syncope. PAST MEDICAL [...] Social History Tobacco Use Smoking status: Former Current packs/day: 0.00 Average packs/day: 1 pack/day for 7.0 years (7.0 ttl pk-yrs) Types: Cigarettes Start date: 12/27/1969 Quit date: 12/27/1976 Years since quittin.3 Smokeless tobacco: Never Tobacco comments: on and off Vaping Use Vaping status: Never Used Substance Use Topics Alcohol use: Yes Comment: occasional Drug use: No FAMILY HISTORY Problem Relation Age of Onset other (No CAD) Father Cancer Mother , lung Cancer Brother thyroid ALLERGIES: ALLERGIES No Known Allergies MEDICATIONS: metoprolol tartrate, short acting, (LOPRESSOR) 25 mg tablet Take 1 tablet by mouth once daily. ELIQUIS 5 mg tab(s) Take 1 tablet by mouth two times a day. losartan (COZAAR) 50 mg tablet Take 1 tablet by mouth once daily. rosuvastatin (CRESTOR) 40 mg tablet Take 1 tablet by mouth daily at bedtime. ranolazine ER (RANEXA) 500 mg 12 hr tablet Take 1 tablet by mouth once daily. Cholecalciferol, Vitamin D3, 50 mcg (2,000 unit) cap Take 1 capsule by mouth once daily. magnesium oxide 400 mg magnesium cap Take 1 capsule by mouth once daily. Docusate Sodium 100 mg tab Take by mouth. TURMERIC ORAL Take by mouth once daily. doxycycline 20 mg tablet Take 1 tablet by mouth twice daily. tamsulosin ER (FLOMAX) 0.4 mg Take 1 capsule by mouth twice daily. Dr. Shaffer. acetaminophen (TYLENOL) 500 mg tablet Take 2 [...] Psychiatric/Behavioral: Negative for depression. PHYSICAL EXAMINATION: BP 122/62 Pulse 66 Resp 12 Ht 5' 7.5 (1.72m) Wt 170 lb (77.1kg) SpO2 97% BMI 26.22 kg/(m^2). General: Very pleasant gentleman sitting comfortable no apparent distress. He is alert and orientedx3 HEENT: Carotid upstrokes are brisk bilaterally without bruits no JVD appreciated. Pulmonary: Lungs are clear no rales, wheezes, rhonchi Cardiovascular: Normal S1, S2 with regular rate and rhythm. No murmurs, rubs, or gallops Extremities: Warm, well-perfused, no lower extremity edema. 2+ distal pulses CARDIOVASCULAR MEDICINE TESTING: Cardiac Catheterization [facility] 06/05/2019: POST PROCEDURE DIAGNOSIS: [place] Coronary Artery Disease in the LAD (Severe) 99% proximal, RCA (UI SOFTWARE DEVELOPER) and LCX (UI SOFTWARE DEVELOPER) Normal carotid arteries Echocardiogram 05/02/2023 - Exam indication: Ascending aortic aneurysm - The left ventricle is normal in size. Left ventricular systolic function is normal. EF = 55 5% (2D biplane) Grade I left ventricular diastolic dysfunction. - The right ventricle is normal in size. Right ventricular systolic function is normal. - The visualized aorta is dilated with a maximal dimension of 4.3 cm. - There is mild aortic insufficiency present. - There is mild pulmonic insufficiency present. - Exam was compared with the prior CC echocardiographic exam performed on 06/05/2019, there has been very little change. Echocardiogram 06/05/2019 CONCLUSIONS: - Technically difficult exam [...] prior OUTSIDE echocardiographic exam performed on 05/2019 [facility] 06/03 - 06/17/2023: Patient had a min HR of 45 bpm, max HR of 169 bpm, and avg HR of 62 bpm. Predominant underlying rhythm was Sinus Rhythm. 2 Supraventricular Tachycardia runs occurred, the run with the fastest interval lasting 10 beats with a max rate of 169 bpm (avg 135 bpm); the run with the fastest interval was also the longest. Isolated SVEs were rare (<1.0%), SVE Couplets were rare (<1.0%), and SVE Triplets were rare (<1.0%). Isolated VEs were rare (<1.0%), and no VE Couplets or VE Triplets were present. IMPRESSION: Mr. Loaiza is a 78 year old gentleman with a history of coronary artery disease prior coronary bypass grafting (MOHR-LAD, SVG-OM, SVG-PDA May 2019). Catheterization April 2023 [facility] demonstrating patent MOHR-LAD, SVG-OM. He is also treated for paroxysmal atrial fibrillation, hypertension, and dyslipidemia. He presents to the office for routine follow-up. PLAN AND RECOMMENDATIONS: 1. 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 - ICD9: 414.05, ICD10: I25.810 (primary diagnosis) Patient with atypical chest pain symptoms. Unlikely secondary to obstructive coronary disease. Haverecommended continuing medical therapy and risk factor modification. If there is escalation of symptoms may consider repeat stress test - METOPROLOL TARTRATE 25 MG TABLET 2. Paroxysmal atrial fibrillation (HCC) - ICD9: 427.31, ICD10: I48.0 Maintaining sinus rhythm. He is on Eliquis for stroke risk reduction - METOPROLOL TARTRATE 25 MG TABLET 3. Primary hypertension - ICD9: 401.9, ICD10: I10 Adequate controlled on current regimen 4. Other hyperlipidemia - ICD9: 272.4, ICD10: E78.49 Maintained on statin 40 mg daily. Blood work from November 2023 was reviewed. LDL cholesterol 64 mg/dL Drake Agarwal MD documented in this encounterMansfield Hospital01-13-2025 NoteHNO ID: [id number] Author: DRAKE AGARWAL MD Service: ? Author Type: Physician Type: Progress Notes Filed: 05/07/2024 08:41 Note Text: [facility] SECTION OF REGIONAL CARDIOLOGY Cardiology ([facility]) [address] [facility] [id number] OUTPATIENT VISIT DATE 05/07/2024 PRIMARY CARE PHYSICIAN: Bella Santos [address] [place] [address] HISTORY OF PRESENT ILLNESS: Mr. Loaiza is a 78 year old gentleman with a history of coronary artery disease prior coronary bypass grafting (May 2019), paroxysmal atrial fibrillation, hypertension, and dyslipidemia who presents for routine follow-up. Unfortunately, his in February. Stress and ended up in the emergency room the day before . He ruled out for an acute coronary syndrome. They discussed possibly forming a stress test. Patient had declined. Since then, he has been doing well. He has occasional episodes of chest pain. Although, they are not reproducible with exertion. He hiked 2.3 miles yesterday and had no difficulties completing his hike. He denied chest pain, chest pressure, or shortness of breath. He has not had palpitations, lightheadedness, dizziness, or syncope. PAST MEDICAL [...] Social History Tobacco Use Smoking status: Former Current packs/day: 0.00 Average packs/day: 1 pack/day for 7.0 years (7.0 ttl pk-yrs) Types: Cigarettes Start date: 12/27/1969 Quit date: 12/27/1976 Years since quittin.3 Smokeless tobacco: Never Tobacco comments: on and off Vaping Use Vaping status: Never Used Substance Use Topics Alcohol use: Yes Comment: occasional Drug use: No FAMILY HISTORY Problem Relation Age of Onset other (No CAD) Father Cancer Mother , lung Cancer Brother thyroid ALLERGIES: ALLERGIES No Known Allergies MEDICATIONS: metoprolol tartrate, short acting, (LOPRESSOR) 25 mg tablet Take 1 tablet by mouth once daily. ELIQUIS 5 mg tab(s) Take 1 tablet by mouth two times a day. losartan (COZAAR) 50 mg tablet Take 1 tablet by mouth once daily. rosuvastatin (CRESTOR) 40 mg tablet Take 1 tablet by mouth daily at bedtime. ranolazine ER (RANEXA) 500 mg 12 hr tablet Take 1 tablet by mouth once daily. Cholecalciferol, Vitamin D3, 50 mcg (2,000 unit) cap Take 1 capsule by mouth once daily. magnesium oxide 400 mg magnesium cap Take 1 capsule by mouth once daily. Docusate Sodium 100 mg tab Take by mouth. TURMERIC ORAL Take by mouth once daily. doxycycline 20 mg tablet Take 1 tablet by mouth twice daily. tamsulosin ER (FLOMAX) 0.4 mg Take 1 capsule by mouth twice daily. Dr. Shaffer. acetaminophen (TYLENOL) 500 mg tablet Take 2 [...] Psychiatric/Behavioral: Negative for depression. PHYSICAL EXAMINATION: BP 122/62 Pulse 66 Resp 12 Ht 5' 7.5 (1.72m) Wt 170 lb (77.1kg) SpO2 97% BMI 26.22 kg/(m2). General: Very pleasant gentleman sitting comfortable no apparent distress. He is alert and oriented x3 HEENT: Carotid upstrokes are brisk bilaterally without bruits no JVD appreciated. Pulmonary: Lungs are clear no rales, wheezes, rhonchi Cardiovascular: Normal S1, S2 with regular rate and rhythm. No murmurs, rubs, or gallops Extremities: Warm, well-perfused, no lower extremity edema. 2+ distal pulses CARDIOVASCULAR MEDICINE TESTING: Cardiac Catheterization [facility] 06/05/2019: POST PROCEDURE DIAGNOSIS: [place] Coronary Artery Disease in the LAD (Severe) 99% (more content not included)...[facility]12-24-2024 Telephone encounter Note* Telephone Encounter - Bella Santos MD - 04/17/2024 9:24 AM EST OK to refill as ordered Bella Santos MD [facility]12-24-2024 Miscellaneous Notes* Telephone Encounter - Bella Santos MD - 04/17/2024 9:24 AM EST OK to refill as ordered Bella Santos MD * Telephone Encounter - Iris Goins MA - 04/16/2024 1:37 PM EST Prescription Refill Information The patient has been identified by name and date of : Yes Caregiver verified no other encounters exist for this prescription request: Yes Caregiver confirmed with patient/requestor that no other refills are due, in the near future, with this provider at this time: Yes The last office visit in the department: 11/2023 Does the patient have a future office visit with this provider/department: Yes Requested Prescriptions Pending Prescriptions Disp Refills ELIQUIS 5 mg tab(s) 180 tablet 3 Sig: Take 1 tablet by mouth two times a day. losartan (COZAAR) 50 mg tablet 30 tablet 5 Sig: Take 1 tablet by mouth once daily. Iris Goins MA April 16, 2024 1:37 PM documented in this encounterM[facility]field Hospital12-23-2024 Telephone encounter Note * Telephone Encounter - Iris Goins MA - 04/16/2024 1:37 PM EST Prescription Refill Information The patient has been identified by name and date of : Yes Caregiver verified no other encounters exist for this prescription request: Yes Caregiver confirmed with patient/requestor that no other refills are due, in the near future, with this provider at this time: Yes The last office visit in the department: 11/2023 Does the patient have a future office visit with this provider/department: Yes Requested Prescriptions Pending Prescriptions Disp Refills ELIQUIS 5 mg tab(s) 180 tablet 3 Sig: Take 1 tablet by mouth two times a day. losartan (COZAAR) 50 mg tablet 30 tablet 5 Sig: Take 1 tablet by mouth once daily. Iris Goins MA April 16, 2024 1:37 PM [facility]12-17-2024 Telephone encounter Note* Telephone Encounter - Jocelyn Kee MA - 04/10/2024 2:17 PM EST Pt requesting short term Rx to go to local Pharmacy. Rx pended. Update pt via [employer] once sent to Pharmacy. Jocelyn Kee MA [facility]12-17-2024 Miscellaneous Notes* Telephone Encounter - Jocelyn Kee MA - 04/10/2024 2:17 PM EST Pt requesting short term Rx to go to local Pharmacy. Rx pended. Update pt via [employer] once sent to Pharmacy. Jocelyn Kee MA documented in this encounterMansfield Hospital12-05-2024 Instructions* Patient Instructions* Jocelyn Kee MA - 03/29/2024 10:13 AM EST Use Saline spray in nose 3-4 x per day to help keep nose moisturized. Keep appt as scheduled in May. Follow up with Cardiology as scheduled. documented in this encounterMansfield Hospital12-05-2024 History of Present illness Narrative* Bella Santos MD - 03/29/2024 10:00 AM EST Transitional Care Management TCM Eligibility Documentation The following information was gathered during patient outreach 03/23/2024 Date of Outreach: Outreach Attempt 1: Contact Made Date of Discharge 03/22/2024 Provider Documentation Jocelyn Loaiza is a 78 year old male here today for a follow up from recent hospitalization. I have reviewed the patient's hospital course including discharge summary, discharge medications , and follow up needs with the patient and any family members present at today's visit. HPI Pt here today for a 7 day TCM. Pt admitted to [facility] on 03/21/24 for chest pains. Discharged home 03/22/24. He was not given any new medications, no medications were discontinued. Pt follows with Physiotherapist'S Assistant Dr. Agarwal whom he stated he has not followed up with regarding recent episode of chest pain, wanted to follow up with PCP first. Pt notes that the ED wanted to do a stress test, but didn't have anyone available the day he was admitted. Pt states since being d/c home he's had very minor angina pain, not like when he presented to the ED. Has been feeling better. Did do a hike over the weekend and worked out. May still be feeling a little short of breath during those times and some slight angina, but not terribly. Also notes that when he went to the ED his BP was very high. This week his BP has been averaging 139/82. Pt currently taking Losartan 50 mg once daily and Lopressor 25 mg once daily. Pt states that he started the Ranexa 500 mg once daily. States that Dr. Parikh and him have discussed if he started having the angina again to start this regimen. Pt also notes that his on 03/09/24, which he feels st ress may of contributed to some of this. Unrelated issues today. Has a really stuffy nose for the past couple weeks. When he blows his nose,blood is coming out in the mucous. When nose gets real stuffy he uses saline nasal spray and Flonase. Below copied from [employer]: Chief Complaint: Chest Pain Informant: patient and family Narrative Narrative: Waxing waning left-sided chest pain for 3 days. Intermittent pain into his shoulder. Exertional dyspnea. No cough. History of three-vessel CABG in 2019 followed by [facility] [address]. Parikh. He follows up every 6 months. He states he had a heart catheter a couple years ago no intervention he was placed on Ranexa. He follow-up with his quality assurance director states due to blood pressure metoprolol was decreased and Ranexa was stopped a year ago. He is on Eliquis for history of paroxysmal A-fib. He cb baby aspirin daily. Took his medications today. 3 days ago he is able to do the elliptical for 15 minutes no symptoms today he states with the elliptical he went 5 minutes before having to stop. Sy mptoms are worse with activities. Remote tobacco stopped in 1976. He reports similar symptoms with his IN in the past. Medical decision making narrative: Interventions / MDM: Differential diagnosis: Chest pain, history of coronary disease Diagnosis considered but do not suspect: Pulmonary embolus however chronic anticoagulation medications with compliance. No clinical pneumonia. Pneumothorax however chest x-ray negative. My EKG interpretation: Sinus rate of 63, no ST or T wave changes. Imaging independently reviewed and interpreted by myself: 2 view chest x-ray right lower lobe atelectasis. Possible infiltrate per radiology. External documents reviewed: Cardiac cath April 2023: Patent MOHR to LAD and saphenous graft to the obtuse. Collaterals right coronary. 50% proximal LAD lesion. Test considered but not ordered:N/A ED course: Patient with exertion no dyspnea with chest pain symptoms. History of coronary disease with three-vessel bypass. Reported had to stop with his exercise today due to symptoms. Will check EKG, cardiac workup. He is on chronic anticoagulation with compliance or for lower suspicion for PE. Chest x-ray questionable infiltrate atelectasis clinically no cough or concerns for infiltrate. Initial troponin was 8. Patient reports similar symptoms to his IN with exertional dyspnea. Review of records he had a cardiac cath April 2023. He reports he was only able to do 5 minutes of ellipticaltoday before being symptomatic. I will discuss with hospitalist service for admission. I discussed with Dr. Hilton for admission. Minutes Spent on Discharge: 33 Hospital Course: Per HPI: JOCELYN LOAIZA, is a 78 M who presented to [facility] ED on 03/21/2024 with chest pain. Patient has history of CAD s/p CABG in 2019, follows [facility]. Notably was admitted here in April 2023 with exertional chest pain. Left heart cath was done and showed patent CABG vessels with normal ejection fraction. Ranexa was added to his medication regimen at that time. He subsequently had worsened bradycardia with some degree of hypotensionso Ranexa was discontinued by his [facility] quality assurance director and his Lopressor dose was lowered. Since then patient has been doing well. As recently as 2 days ago he use the elliptical for 15 minutes without any issues. However today when using elliptical he had exertional chest pain after only 5 minutes, sohe came in for further evaluation. In the ED he was hypertensive to the 150s to 160s systolic but otherwise hemodynamically stable on room air. EKG showed normal sinus rhythm with known left axis deviation and LVH, no ischemic changes noted. Troponin trend 9 > 12. Labs were otherwise unremarkable. Given his presentation and history, hospitalist was contacted for admission. I saw the patient at bedside in the ED. Patient was sitting up comfortably in bed, conversing normally, in no acute distress. Denied any chest pain currently. Denied any shortness of breath. Patient did report having a sore throat for few days last week but no other significant infectious symptoms.He denies any lower extremity swelling. Has a remote smoking history, quit in the 70s. No other acute concerns at this time. Will be admitted for further management. Hospital Course: 1. Chest pain rule [id number]-old male presented to the hospital with exertional chest pain after only 5 minutes on an elliptical. He had used an elliptical prior to this for 15 minutes without any issues. He checked his blood pressure and it was elevated so he presented to the hospital. Today he states that he has no more chest pain and that he feels back to his normal. His troponin has been negative since admission and he had cardiac catheterization within the last year that was essentially unremarkable. He is on multiple medications as he has had a previous triple bypass in the past. I discussed with him that being is giving he would not be getting stress test today that he would have to wait until tomorrow versus going home and obtaining 1 as an outpatient since his symptoms had resolved. I discussed with him the risks and benefits of either issue and he expressed understanding of those risks and benefits and he elected to go home today and follow-up as an outpatient with his PCP. I did discuss with him that the stress test would happen sooner if he stayed in the hospital as itwould happen tomorrow however he would like to go home as he is feeling better and his EKG was nonischemic and his troponins were normal. No medication changes were made. 2. Coronary artery disease status post CABG, essential hypertension, hyperlipidemia, paroxysmal A-fib all chronic medical conditions which complicate his care. His home medications were continued where appropriate Records were copied from [employer] for continuation of care. PHYSICAL EXAMINATION BP 132/80 Pulse 60 Resp 16 Wt 75.3 kg (166 lb 0.1 oz) BMI 25.62 kg/m GENERAL: well appearing, alert, in no acute distress HEART: regular rate and rhythm. No murmur, rubs or gallops. LUNGS: clear to auscultation, no wheezing, rhonchi, or crackles ASSESSMENT/PLAN: 1. Transition of care - ICD9: V49.89, ICD10: Z78.9 (primary diagnosis) - Stable today 2. Hospital discharge follow-up - ICD9: V67.59, ICD10: Z09 - Stable today 3. Chest pain, unspecified type - ICD9: 786.50, ICD10: R07.9 - Atypical chest pain, symptoms are not consistent with cardiac ischemia due to increased stress due to recently passing. Does have cardiac hx. - Do not feel stress test is needed at this time; monitor symptoms. - Okay to keep with Ranexa once daily, f/u with Dr. Jauregui next month to discuss - Continue current medication regimen. - update if increased sob/angina 4. 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 - ICD9: 414.05, ICD10: I25.810 - Stable - Continue current medication regimen. - METOPROLOL TARTRATE 25 MG TABLET 5. Essential hypertension - ICD9: 401.9, ICD10: I10 - Controlled - Continue current medications - Recommend home blood pressure monitoring, to bring results to next visit - Encouraged sodium restriction, DASH or Mediterranean diet - Recommend regular aerobic exercise 6. Paroxysmal atrial fibrillation (HCC) - ICD9: 427.31, ICD10: I48.0 - Stable - Continue current medication regimen. - METOPROLOL TARTRATE 25 MG TABLET 7. Sinus congestion - ICD9: 478.19, ICD10: R09.81 - Continue using Saline, more than likely related to weather turning cold and heat turned on becoming dry. Keep moisturized. Use 3-4 x. Follow up as scheduled with Cardio and Primary Care. Update office if symptoms become worse. I agree with the Chief Complaint, ROS, and Past Histories independently gathered by the clinical customer support technician and the remaining scribed note accurately describes my personal service to the patient. Bella Santos MD The documentation for this note was completed by Jocelyn Kee MA acting as scribe for Bella Santos MD. March 29, 2024 10:08 AM. Jocelyn Kee MA documented in this encounterMansfield Hospital12-05-2024 NoteHNO ID: [id number] Author: BELLA SANTOS MD Service: ? Author Type: Physician Type: Progress Notes Filed: 03/29/2024 10:38 Note Text: Transitional Care Management TCM Eligibility Documentation The following information was gathered during patient outreach 03/23/2024 Date of Outreach: Outreach Attempt 1: Contact Made Date of Discharge 03/22/2024 Provider Documentation Jocelyn Loaiza is a 78 year old male here today for a follow up from recent hospitalization. I have reviewed the patient's hospital course including discharge summary, discharge medications , and follow up needs with the patient and any family members present at today's visit. HPI Pt here today for a 7 day TCM. Pt admitted to [facility] on 03/21/24 for chest pains. Discharged home 03/22/24. He was not given any new medications, no medications were discontinued. Pt follows with Physiotherapist'S Assistant Dr. Agarwal whom he stated he has not followed up with regarding recent episode of chest pain, wanted to follow up with PCP first. Pt notes that the ED wanted to do a stress test, but didn't have anyone available the day he was admitted. Pt states since being d/c home he's had very minor angina pain, not like when he presented to the ED. Has been feeling better. Did do a hike over the weekend and worked out. May still be feeling a little short of breath during those times and some slight angina, but not terribly. Also notes that when he went to the ED his BP was very high. This week his BP has been averaging 139/82. Pt currently taking Losartan 50 mg once daily and Lopressor 25 mg once daily. Pt states that he started the Ranexa 500 mg once daily. States that Dr. Perrys and him have discussed if he started having the angina again to start this regimen. Pt also notes that his on 03/09/24, which he feels stress may of contributed to some of this. Unrelated issues today. Has a really stuffy nose for the past couple weeks. When he blows his nose, blood is coming out in the mucous. When nose gets real stuffy he uses saline nasal spray and Flonase. Below copied from [employer]: Chief Complaint: Chest Pain Informant: patient and family Narrative Narrative: Waxing waning left-sided chest pain for 3 days. Intermittent pain into his shoulder. Exertional dyspnea. No cough. History of three-vessel CABG in 2019 followed by [facility] [address]. Parikh. He follows up every 6 months. He states he had a heart catheter a couple years ago no intervention he was placed on Ranexa. He follow-up with his quality assurance director states due to blood pressure metoprolol was decreased and Ranexa was stopped a year ago. He is on Eliquis for history of paroxysmal A-fib. He is on baby aspirin daily. Took his medications today. 3 days ago he is able to do the elliptical for 15 minutes no symptoms today he states with the elliptical he went 5 minutes before having to stop. Symptoms are worse with activities. Remote tobacco stopped in 1976. He reports similar symptoms with his IN in the past. Medical decision making narrative: Interventions / MDM: Differential diagnosis: Chest pain, history of coronary disease Diagnosis considered but do not suspect: Pulmonary embolus however chronic anticoagulation medications with compliance. No clinical pneumonia. Pneumothorax however chest x-ray negative. My EKG interpretation: Sinus rate of 63, no ST or T wave changes. Imaging independently reviewed and interpreted by myself: 2 view chest x-ray right lower lobe atelectasis. Possible infiltrate per radiology. External documents reviewed: Cardiac cath April 2023: Patent MOHR to LAD and saphenous graft to the obtuse. Collaterals right coronary. 50% proximal LAD lesion. Test considered but not ordered:N/A ED course: Patient with exertion no dyspnea with chest pain symptoms. History of coronary disease with three-vessel bypass. Reported had to stop with his exercise today due to symptoms. Will check EKG, cardiac workup. He is on chronic anticoagulation with compliance or for lower suspicion for PE. Chest x-ray questionable infiltrate atelectasis clinically no cough or concerns for infiltrate. Initial troponin was 8. Patient reports similar symptoms to his IN with exertional dyspnea. Review of records he had a cardiac cath April 2023. He reports he was only able to do 5 minutes of elliptical today before being symptomatic. I will discuss with hospitalist service for admission. I discussed with Dr. Hilton for admission. Minutes Spent on Discharge: 33 Hospital Course: Per HPI: JOCELYN LOAIZA, is a 78 M who presented to [facility] ED on 03/21/2024 with chest pain. Patient has history of CAD s/p CABG in 2019, follows with cardiology through the [facility]. Notably was admitted here in April 2023 with exertional chest pain. Left heart cath was done and showed patent CABG vessels with normal ejection fractio (more content not included)... [facility]11-29-2024 Telephone encounter Note* Telephone Encounter - Jocelyn eKe MA - 03/23/2024 4:35 PM EST Pt notified that Rx has been sent into the Pharmacy. Jocelyn Kee MA [facility]11-29-2024 Miscellaneous Notes* Telephone Encounter - Jocelyn Kee MA - 03/23/2024 4:35 PM EST Pt notified that Rx has been sent into the Pharmacy. Jocelyn Kee MA * Telephone Encounter - Bella Santos MD - 03/23/2024 4:34 PM EST OK to refill as ordered Bella Santos MD * Telephone Encounter - Jocelyn Kee MA - 03/23/2024 4:24 PM EST Pt needs short term Rx sent to [facility]. Will discuss further at next weeks visit if regimen needs changed and Rx to go to Mail order. Prescription Refill Information The patient has been identified by name and date of : Yes Caregiver verified no other encounters exist for this prescription request: Yes Caregiver confirmed with patient/requestor that no other refills are due, in the near future, with this provider at this time: Yes The last office visit in the department: 11/29/23 Does the patient have a future office visit with this provider/department: Yes Requested Prescriptions Pending Prescriptions Disp Refills losartan (COZAAR) 50 mg tablet 30 tablet 1 Sig: Take 1 tablet by mouth once daily. Jocelyn Kee MA March 23, 2024 4:24 PM * Telephone Encounter - Jocelyn Kee MA - 03/23/2024 3:18 PM EST Wait pt response. Asking if pt wants short term Rx sent to [facility] and then #90 day supply sent to [facility] as well. Jocelyn Kee MA [facility] Note * Telephone Encounter - Bella Santos MD - 03/23/2024 4:34 PM EST OK to refill as ordered Bella Santos MD [facility]11-29-2024 Telephone encounter Note* Telephone Encounter - Jocelyn Kee MA - 03/23/2024 4:24 PM EST Pt needs short term Rx sent to [facility]. Will discuss further at next weeks visit if regimen needs changed and Rx to go to Mail order. Prescription Refill Information The patient has been identified by name and date of : Yes Caregiver verified no other encounters exist for this prescription request: Yes Caregiver confirmed with patient/requestor that no other refills are due, in the near future, with this provider at this time: Yes The last office visit in the department: 11/29/23 Does the patient have a future office visit with this provider/department: Yes Requested Prescriptions Pending Prescriptions Disp Refills losartan (COZAAR) 50 mg tablet 30 tablet 1 Sig: Take 1 tablet by mouth once daily. Jocelyn Kee MA March 23, 2024 4:24 PM [facility]11-29-2024 Telephone encounter Note* Telephone Encounter - Jocelyn Kee MA - 03/23/2024 3:18 PM EST Wait pt response. Asking if pt wants short term Rx sent to [facility] and then #90 day supply sent to [facility] as well. Jocelyn Kee MA [facility]11-29-2024 NoteHNO ID: [id number] Author: KENZIE PRASAD MA Service: ? Author Type: Fish [employer] Type: Progress Notes Filed: 03/23/2024 10:27 Note Text: TRANSITION CARE MANAGEMENT (TCM) INITIAL CONTACT [facility] [employer] Outreach Provider Action/FYI: 7 day TCM Pt states he is feeling some better, still has some lightheadedness and minor CP. BP this AM was 136/80 something he says. He started taking the Ranolazine 500 mg yesterday, just taking once a day at this time. Follows with Dr. Agarwal's Cardio but pt felt he should see PCP first. He has not reached out to Cardio regarding recent hospital stay. Initial contact with patient post discharge, spoke to patient. Patient identified by name and . TRANSITION CARE MANAGEMENT INITIAL OUTREACH DOCUMENTATION: 03/23/2024 Date of Outreach: Outreach Attempt 1: Contact Made Date of Discharge 03/22/2024 SUMMARY: -Pt discharged from [facility] on 03/22/24. -Admitted for: chest pains Do you have a hospital follow up appointment with your PCP? Appointment on 03/29/[address] Santos. Yes. Remind patient of appointment date, time, and location. If not within 14 calendar days of discharge - please reschedule accordingly. MEDICATIONS: Many patients have questions or concerns about their medications once they are home. Were you prescribed any new medications? No Were you told to hold any medications? No Were any of your medications discontinued? No Do you have any questions about getting or taking your medications? No Your discharge instructions/After visit Summary (AVS) are important in guiding you through the recovery process. Is there anything I might help you understand? No Do you have all the necessary equipment and supplies at home? Yes Medical records from recent hospitalization: [facility] History of Present illness Narrative* Kenzie Prasad MA - 03/23/2024 10:19 AM EST TRANSITION CARE MANAGEMENT (TCM) INITIAL CONTACT Fish [employer] Outreach Provider Action/FYI: 7 day TCM Pt states he is feeling some better, still has some lightheadedness and minor CP. BP this AM was 136/80 something he says. He started taking the Ranolazine 500 mg yesterday, just taking once a day atthis time. Follows with Dr. Agarwal's Cardio but pt felt he should see PCP first. He has not reached out to Cardio regarding recent hospital stay. Initial contact with patient post discharge, spoke to patient. Patient identified by name and . TRANSITION CARE MANAGEMENT INITIAL OUTREACH DOCUMENTATION: 03/23/2024 Date of Outreach: Outreach Attempt 1: Contact Made Date of Discharge 03/22/2024 SUMMARY: -Pt discharged from [facility] on 03/22/24. -Admitted for: chest pains Do you have a hospital follow up appointment with your PCP? Appointment on 03/29/[address] Santos. Yes. Remind patient of appointment date, time, and location. If not within 14 calendar days of discharge - please reschedule accordingly. MEDICATIONS: Many patients have questions or concerns about their medications once they are home. Were you prescribed any new medications? No Were you told to hold any medications? No Were any of your medications discontinued? No Do you have any questions about getting or taking your medications? No Your discharge instructions/After visit Summary (AVS) are important in guiding you through the recovery process. Is there anything I might help you understand? No Do you have all the necessary equipment and supplies at home? Yes Medical records from recent hospitalization: Placed for provider to review [facility] NotePatient Outreach (FAMPWS) JOCELYN LOAIZA ([id number]) 1945 M Date Time Provider Department 03/23/24 KENZIE PRASAD During your visit today, we recorded the following information about you: Kenzie Prasad MA 03/23/2024 10:27 AM Signed TRANSITION CARE MANAGEMENT (TCM) INITIAL CONTACT Fish [employer] Outreach Provider Action/FYI: 7 day TCM Pt states he is feeling some better, still has some lightheadedness and minor CP. BP this AM was 136/80 something he says. He started taking the Ranolazine 500 mg yesterday, just taking once a day at this time. Follows with Dr. Agarwal's Cardio but pt felt he should see PCP first. He has not reached out to Cardio regarding recent hospital stay. Initial contact with patient post discharge, spoke to patient. Patient identified by name and . TRANSITION CARE MANAGEMENT INITIAL OUTREACH DOCUMENTATION: 03/23/2024 Date of Outreach: Outreach Attempt 1: Contact Made Date of Discharge 03/22/2024 SUMMARY: -Pt discharged from [facility] on 03/22/24. -Admitted for: chest pains Do you have a hospital follow up appointment with your PCP? Appointment on 03/29/[address] Santos. Yes. Remind patient of appointment date, time, and location. If not within 14 calendar days of discharge - please reschedule accordingly. MEDICATIONS: Many patients have questions or concerns about their medications once they are home. Were you prescribed any new medications? No Were you told to hold any medications? No Were any of your medications discontinued? No Do you have any questions about getting or taking your medications? No Your discharge instructions/After visit Summary (AVS) are important in guiding you through the recovery process. Is there anything I might help you understand? No Do you have all the necessary equipment and supplies at home? Yes Medical records from recent hospitalization: Placed for provider to review Allergies As of Date: 03/23/2024 (No Known Allergies) Date Reviewed: 11/29/2023 Reviewed by: Jocelyn Kee MA - Fully Assessed Reason for Visit: Transition Of Care [4074] Prescriptions as of 03/23/2024 - metoprolol tartrate, short acting, (LOPRESSOR) 25 mg tablet Take 0.5 tablets by mouth two times a day. - Cholecalciferol, Vitamin D3, 50 mcg (2,000 unit) cap Take 1 capsule by mouth once daily. - magnesium oxide 400 mg magnesium cap Take 1 capsule by mouth once daily. - rosuvastatin (CRESTOR) 40 mg tablet Take 1 tablet by mouth daily at bedtime. - ELIQUIS 5 mg tab(s) Take 1 tablet by mouth two times a day. - Docusate Sodium 100 mg tab Take by mouth. - TURMERIC ORAL Take by mouth once daily. - losartan (COZAAR) 50 mg tablet Take 1 tablet by mouth once daily. - doxycycline 20 mg tablet Take 1 tablet by mouth twice daily. - tamsulosin ER (FLOMAX) 0.4 mg Take 1 capsule by mouth twice daily. Dr. Shaffer. - sennosides/docusate sodium (COLACE 2-IN-1 ORAL) Take by mouth. - acetaminophen (TYLENOL) 500 mg tablet Take 2 tablets by mouth every 6 hours. - aspirin, enteric coated (ASPIRIN, ENTERIC COATED) 81 mg EC tablet Take 2 tablets by mouth once daily. - amiodarone (PACERONE) 200 mg tablet (Discontinued) Take 1 tablet by mouth once daily. - furosemide (LASIX) 20 mg tablet (Discontinued) Take 1 tablet by mouth once daily. Meds Comments as of 11/09/2022: PRN Nitro. Takes OTC Magnesium 400 mg once daily, Tumeric Comlex 500 mg once daily, Glucosamine Chondroitin 1103 mg bid and CoQ10 100 mg once daily. Problem List As Of Date 03/23/2024 Noted Resolved Dyspnea on exertion [R06.09] Dyslipidemia [E78.5] Primary hypertension [I10] Former smoker, stopped smoking in distant past * HARLEY on CPAP [G47.33] Abnormal PFTs (pulmonary function tests) [R94.2]12/27/2014 Rosacea [L71.9] Chest pain [R07.9] 06/01/2019 06/02/2019 Chest pain [R07.9] 06/05/2019 06/11/2019 Coronary artery disease involving coronary bypa*06/05/2019 Hx of CABG [Z95.1] 06/22/2019 Glucose intolerance [E74.39] 06/22/2019 Chronic sore throat [J31.2] 12/06/2019 Intercostal pain [R07.82] 12/17/2019 Screening for ischemic heart disease [Z13.6] 01/12/2021 Other hyperlipidemia [E78.49] 08/31/2021 Paroxysmal atrial fibrillation (HCC) [I48.0] 05/06/2023 Encounter Status:Closed by KENZIE PRASAD on 03/23/24[facility] Medical Records Department [address] [place] [address] Discharge Summary 03/22/24 1524 MR#: [id number] Acct: [id number] Name: JOCELYN LOAIZA Rep #: [id number] : 1945 78 From: Tony Garay MD PCP: Dr. Bella Santos MD Status:ADM PALOMO Location: [place] [address] Providers Date of Admission: 03/21/24 Primary Care Physician: Dr. Bella Santos MD Reason For Visit: CHEST PAIN Diagnosis Discharge Diagnosis (1) Chest pain: Status: Inactive Code(s): R07.9 - Chest pain, unspecified Medications at Discharge Home Medications aspirin 81 mg tablet,delayed release 162 mg PO DAILY@0800 heart health 01/22/14 acetaminophen 500 mg tablet 500 - 1,000 mg PO Q6H PRN PRN Pain Or Fever 07/05/19 tamsulosin 0.4 mg capsule 0.4 mg PO BID prostate 07/05/19 doxycycline hyclate 20 mg tablet 20 mg PO BID infection 09/17/21 losartan 50 mg tablet 50 mg PO DAILY blood pressure 09/17/21 apixaban 5 mg tablet (Eliquis) 5 mg PO BID blood thinner #60 tabs 04/23/23 coQ10 (ubiquinol) 100 mg capsule (CoQmax Ubiquinol) 100 mg PO DAILY supplement 05/05/23 docusate sodium 100 mg capsule (Col-Rite) 100 mg PO DAILY stool softner 05/05/23 glucosamine HCl 1,500 mg tablet 3,000 mg PO DAILY supplement 05/05/23 ivermectin 1 %-metronidazole 1 %-niacinamide 4 % topical gel (Aveidaoxia) 1 ea topical DAILY 05/05/23 magnesium 200 mg tablet 400 mg PO DAILY supplement 05/05/23 metoprolol tartrate 50 mg tablet (Lopressor) 12.5 mg PO BID blood pressure 05/05/23 rosuvastatin 40 mg tablet (Crestor) 40 mg PO QHS cholesterol 05/05/23 ranolazine 500 mg tablet,extended release,12 hr 500 mg PO BID heart 90 days #180 tabs 05/06/23 cholecalciferol (vitamin D3) 50 mcg (2,000 unit) capsule (Vitamin D3) 50 mcg PO DAILY vitamin 03/21/24 metoprolol tartrate 25 mg tablet 25 mg PO BID blood pressure 03/21/24 tumeric curcumin complex 03/21/24 Hospital Course Operations None Procedures None Summary of Care Provided Minutes Spent on Discharge: 33 Hospital Course: Per HPI: JOCELYN LOAIZA, is a 78 M who presented to [facility] ED on 03/21/2024 with chest pain. Patient has history of CAD s/p CABG in 2019, follows with cardiology through the [facility]. Notably was admitted here in April 2023 with exertional chest pain. Left heart cath was done and showed patent CABG vessels with normal ejection fraction. Ranexa was added to his medication regimen at that time. He subsequently had worsened bradycardia with some degree of hypotension so Ranexa was discontinued by his F quality assurance director and his Lopressor dose was lowered. Since then patient has been doing well. As recently as 2 days ago he use the elliptical for 15 minutes without any issues. However today when using elliptical he had exertional chest pain after only 5 minutes, so he came in for further evaluation. In the ED he was hypertensive to the 150s to 160s systolic but otherwise hemodynamically stable on room air. EKG showed normal sinus rhythm with known left axis deviation and LVH, no ischemic changes noted. Troponin trend 9 > 12. Labs were otherwise unremarkable. Given his presentation and history, hospitalist was contacted for admission. I saw the patient at bedside in the ED. Patient was sitting up comfortably in bed, conversing normally, in no acute distress. Denied any chest pain currently. Denied any shortness of breath. Patient did report having a sore throat for few days last week but no other significant infectious symptoms. He denies any lower extremity swelling. Has a remote smoking history, quit in the 70s. No other acute concerns at this time. Will be admitted for further management. Hospital Course: 1. Chest pain rule out???78-year-old male presented to the hospital with exertional chest pain after only 5 minutes on an elliptical. He had used an elliptical prior to this for 15 minutes without any issues. He checked his blood pressure and it was elevated so he presented to the hospital. Today he states that he has no more chest pain and that he feels back to his normal. His troponin has been negative since admission and he had cardiac catheterization within the last year that was essentially unremarkable. He is on multiple medications as he has had a previous triple bypass in the past. I discussed with him that being is giving he would not be getting stress test today that he would have to wait until tomorrow versus going home and obtaining 1 as an outpatient since his symptoms had resolved. I discussed with him the risks and benefits of either issue and he expressed understanding of those risks and benefits and he elected to go home today and follow-up as an outpatient with his PCP. I did discuss with him that the stress test would happen sooner if he stayed in the hospital as it would happen tomorrow however he would like to go home as he (more content not included)...[facility]08-06-2024 History of Present illness Narrative* Bella Santos MD - 11/29/2023 10:40 AM EDT Chief Complaint Patient presents with: F/U 3 Month HPI Jocelyn Loaiza is a 78 year old male who presents here today for 3 month follow up. Denies any bowel, Gi, or urinary issues. Follows with Dr. Shaffer, Urologist at [facility]. Pt is using Flomax 0.4 mg 2 pills once daily. Also uses Anusol rectal cream prn and Docusate as needed. GERD: Stable. Not currently on medication. Depression/LIANNA: Feels he has more of an anxiety issue than depression. Was taking Zoloft 50 mg 3 pills once daily but didn't really notice any improvement so that was stopped and he was started on Prozac 20 mg daily. Pt since last visit has stopped medication, didn't feel this was helping him. States he's ruminator. HTN & A-fib: Follows with Cardio Dr. Agarwal. Taking Losartan 50 mg daily and Lopressor 25 0.5 tab po BID. Ranexa was stopped;he has had less dizziness since then. Checking BP at home, several times per week. BP average over the past 6 months is 126/76. Denies any chest pains, dizziness, or SOB. Taking Eliquis 5 mg BID. Lipid/Glucose: Tries to watch diet and exercise, enjoys hiking. Has worked with a operational trainer. Is taking Crestor 40 mg daily. Rosacea: Taking Doxycycline 20 mg BID. HM - Anxiety and Depression screening completed. Covid vaccine to receive in the fall. Past medical history, appointments, medications, allergies reviewed. Previous Medical History PAST MEDICAL HISTORY No date: Dyslipidemia No date: Dyspnea on exertion No date: Former smoker, stopped smoking in distant past No date: HTN (hypertension) No date: Kidney stones No date: HARLEY on CPAP No date: Rosacea Previous Surgical History PAST SURGICAL HISTORY 2006: COLONOSCOPY 02/15/2019: COLONOSCOPY FLX DX W/COLLJ SPEC WHEN PFRMD Comment: Colonoscopy childhood and 2007: HERNIA REPAIR HX Comment: x3 No date: PAST SURGICAL HISTORY OF Comment: lithotripsy, multiple No date: PAST SURGICAL HISTORY OF Comment: laser prostate No date: TONSILLECTOMY HX Family History FAMILY HISTORY Problem Relation Age of Onset other (No CAD) Father Cancer Mother , lung Cancer Brother thyroid Patient Allergies ALLERGIES No Known Allergies Current Medications Current Outpatient Medications on File Prior to Visit Medication Sig Cholecalciferol, Vitamin D3, 50 mcg (2,000 unit) cap Take 1 capsule by mouth once daily. magnesium oxide 400 mg magnesium cap Take 1 capsule by mouth once daily. FLUoxetine (PROZAC) 20 mg capsule Take 1 capsule by mouth once daily. ranolazine ER (RANEXA) 500 mg 12 hr tablet Take 1 tablet by mouth two times a day. rosuvastatin (CRESTOR) 40 mg tablet Take 1 tablet by mouth daily at bedtime. ELIQUIS 5 mg tab(s) Take 1 tablet by mouth two times a day. Docusate Sodium 100 mg tab Take by mouth. MAGNESIUM ORAL Take 400 mg by mouth once daily. TURMERIC ORAL Take by mouth once daily. metoprolol tartrate, short acting, (LOPRESSOR) 25 mg tablet Take 1 tablet by mouth two times a day.(Patient taking differently: Take 12.5 mg by mouth two times a day.) losartan (COZAAR) 50 mg tablet Take 1 tablet by mouth once daily. doxycycline 20 mg tablet Take 1 tablet by mouth twice daily. tamsulosin ER (FLOMAX) 0.4 mg Take [...] Types: Cigarettes Quit date: 12/27/1976 Years since quittin.9 Smokeless tobacco: Never Tobacco comments: on and off Vaping Use Vaping Use: Never used Substance Use Topics Alcohol use: Yes Comment: occasional Drug use: No EXAM: BP 126/74 (BP Site: Left Arm, BP Position: Sitting, BP Cuff Size: Regular Adult) Pulse 64 Resp 16 Wt 72.7 kg (160 lb 4.4 oz) BMI 24.73 kg/m General Appearance: Well appearing, alert, in no acute distress, well-hydrated, well nourished.. Lungs: Lungs clear to auscultation. No wheezing, rhonchi, rales.. Heart: RRR without murmur, gallop, or rubs. No ectopy. Left foot: corn vs wart under 3rd metatarsal. Health Maintenance List Depression Screening Never done Anxiety Screening Never done BP Controlled (<130/80) Never done Covid-19 Vaccine( - 2022- season) due on 05/16/2023 Hepatitis C Screening due on 05/12/2024 RSV Vaccine(1 - 1-dose 60+ series) due on 08/15/2024 Shingrix Vaccine(1 of 2) due on 08/15/2024 Influenza Vaccine(1) due on 12/25/2023 Annual PCP Team Chronic Disease Visit due on 08/15/2024 LDL Cholesterol due on 11/23/2024 Diabetes Screening due on 11/23/2026 DTaP,Tdap,Td Vaccine(2 - Td or Tdap) due on 02/07/2027 Advance Directive Discussion Completed Pneumococcal Vaccine: 65+ Completed Colorectal Cancer Screening Discontinued Data reviewed Appointment on 11/24/2023 Component Date Value Protein, Total 11/24/2023 6.8 Albumin 11/24/2023 4.2 Calcium, Total 11/24/2023 9.5 Bilirubin, Total 11/24/2023 0.5 Alkaline Phosphatase 11/24/2023 51 AST 11/24/2023 35 ALT 11/24/2023 28 Glucose 11/24/2023 94 BUN 11/24/2023 21 Creatinine 11/24/2023 0.99 Sodium 11/24/2023 140 Potassium 11/24/2023 4.3 Chloride 11/24/2023 104 CO2 11/24/2023 26 Anion Gap 11/24/2023 10 Estimated Glomerular Stefan* 11/24/2023 78 Cholesterol, Total 11/24/2023 131 Triglyceride 11/24/2023 113 HDL Cholesterol 11/24/2023 44 Non HDL Cholesterol 11/24/2023 87 Fasting Time 11/24/2023 12 VLDL Cholesterol 11/24/2023 23 TC:HDL Ratio 11/24/2023 2.98 LDL Cholesterol 11/24/2023 64 LDL:HDL Ratio 11/24/2023 1.45 Hemoglobin A1C 11/24/2023 5.2 Estimated Average Glucose 11/24/2023 103 ASSESSMENT/PLAN: 1. Essential hypertension - ICD9: 401.9, ICD10: I10 (primary diagnosis) - Controlled - Continue current medications - Recommend home blood pressure monitoring, to bring results to next visit - Encouraged sodium restriction, DASH or Mediterranean diet - Recommend regular aerobic exercise - COMPREHENSIVE METABOLIC PANEL - LIPID PANEL BASIC - COMPLETE BLOOD COUNT AND DIFFERENTIAL 2. Paroxysmal atrial fibrillation (HCC) - ICD9: 427.31, ICD10: I48.0 - COMPLETE BLOOD COUNT AND DIFFERENTIAL - METOPROLOL TARTRATE 25 MG TABLET 3. Dyslipidemia - ICD9: 272.4, ICD10: E78.5 Controlled - COMPREHENSIVE METABOLIC PANEL - LIPID PANEL BASIC 4. Elevated glucose - ICD9: 790.29, ICD10: R73.09 Stable - COMPREHENSIVE METABOLIC PANEL - LIPID PANEL BASIC - HEMOGLOBIN A1C 5. GERD without esophagitis - ICD9: 530.81, ICD10: K21.9 Stable 6. Anxiety and depression - ICD9: 300.00, 311, ICD10: F41.9, F32.A Stable ; remain off meds for now 7. Benign prostatic hyperplasia without lower urinary tract symptoms - ICD9: 600.00, ICD10: N40.0 8. Hx of CABG - ICD9: V45.81, ICD10: Z95.1 - LIPID PANEL BASIC 9. Rosacea - ICD9: 695.3, ICD10: L71.9 Continue current medications. 10. 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- ICD9: 414.05, ICD10: I25.810 - METOPROLOL TARTRATE 25 MG TABLET 11. Screening for depression - ICD9: V79.0, ICD10: Z13.31 - DEPRESSION SCREENING 12. Encounter for screening examination for other mental health and behavioral disorders - ICD9: V79.8, ICD10: Z13.39 - ANXIETY SCREENING Medical Decision Making: Problems: Moderate: 2+ stable chronic illnesses Data: Unique test result(s) reviewed: 3+ Unique test(s) ordered: 3+ Risk: Moderate: Drug management Medical Decision Making Level: 4 - Moderate Bella Santos MD documented in this encounterM[facility]07-01-2024 Instructions* Patient Instructions* Drake Agarwal MD - 10/24/2023 4:33 PM EDT Try holding the Renexa for 2 weeks to see if it helps with the light headedness documented in this encounterMansfield [facility]07-01-2024 History of Present illness Narrative* Drake Agarwal MD - 10/24/2023 4:20 PM EDT Images from the original note were not included. [facility] SECTION OF REGIONAL CARDIOLOGY Cardiology ([facility]) [address] [id number] OUTPATIENT VISIT DATE 05/09/2023 PRIMARY CARE PHYSICIAN: Bella Santos [address] [facility] [place] [address] HISTORY OF PRESENT ILLNESS: Mr. Loaiza is a 78 year old gentleman with a history of coronary artery disease prior coronary bypass grafting (May 2019), paroxysmal atrial fibrillation, hypertension, and dyslipidemia who presents for routine follow-up. Patient complaining of lightheadedness. It seems to be worse when his heart rate is less than 55 bpm. When he develops lightheadedness he will often use his Kardia monitorto check his rhythm. He also has episodes of lightheadedness with exercise and exertion when his heart rate is higher. He has not had symptoms concerning for CHF including PND, orthopnea, or lower extremity edema. PAST MEDICAL HISTORY Diagnosis Date Dyslipidemia Dyspnea [...] D3, 50 mcg (2,000 unit) cap Take 1 capsule by mouth once daily. magnesium oxide 400 mg magnesium cap Take 1 capsule by mouth once daily. FLUoxetine (PROZAC) 20 mg capsule Take 1 capsule by mouth once daily. ranolazine ER (RANEXA) 500 mg 12 hr tablet Take 1 tablet by mouth two times a day. rosuvastatin (CRESTOR) 40 mg tablet Take 1 tablet by mouth daily at bedtime. ELIQUIS 5 mg tab(s) Take 1 tablet by mouth two times a day. Docusate Sodium 100 mg tab Take by mouth. TURMERIC ORAL Take by mouth once daily. metoprolol tartrate, short acting, (LOPRESSOR) 25 mg tablet Take 1 tablet by mouth two times a day.(Patient taking differently: Take 12.5 mg by mouth two times a day.) losartan (COZAAR) 50 mg tablet Take 1 tablet by mouth once daily. doxycycline 20 mg tablet Take 1 tablet by mouth twice daily. tamsulosin ER (FLOMAX) 0.4 mg Take 1 capsule by mouth twice daily. Dr. Shaffer. sennosides/docusate sodium (COLACE 2-IN-1 ORAL) Take by mouth. acetaminophen (TYLENOL) 500 mg tablet Take 2 tablets by mouth every 6 hours. aspirin, enteric coated (ASPIRIN, ENTERIC COATED) 81 mg EC tablet Take 2 tablets by mouth once daily. MAGNESIUM ORAL Take 400 mg by mouth once daily. [DISCONTINUED] amiodarone (PACERONE) [...] Psychiatric/Behavioral: Negative for depression. PHYSICAL EXAMINATION: BP 150/79 Pulse 59 Ht 5' 7.5 (1.72m) Wt 158 lb 9.6 oz (71.9kg) BMI 24.46 kg/(m^2). General: Very pleasant gentleman sitting comfortable no apparent distress. He is alert and orientedx3 HEENT: Carotid upstrokes are brisk bilaterally without bruits no JVD appreciated. Pulmonary: Lungs are clear no rales, wheezes, rhonchi Cardiovascular: Normal S1, S2 with regular rate and rhythm. No murmurs, rubs, or gallops Extremities: Warm, well-perfused, no lower extremity edema. 2+ distal pulses CARDIOVASCULAR MEDICINE TESTING: Cardiac Catheterization [place] 06/05/2019: POST PROCEDURE DIAGNOSIS: [place] Coronary Artery Disease in the LAD (Severe) 99% proximal, RCA (UI SOFTWARE DEVELOPER) and LCX (UI SOFTWARE DEVELOPER) Normal carotid arteries Echocardiogram 05/02/2023 - Exam indication: Ascending aortic aneurysm - The left ventricle is normal in size. Left ventricular systolic function is normal. EF = 55 5% (2D biplane) Grade I left ventricular diastolic dysfunction. - The right ventricle is normal in size. Right ventricular systolic function is normal. - The visualized aorta is dilated with a maximal dimension of 4.3 cm. - There is mild aortic insufficiency present. - There is mild pulmonic insufficiency present. - Exam was compared with the prior CC echocardiographic exam performed on 06/05/2019, there has been very little change. Echocardiogram 06/05/2019 CONCLUSIONS: - Technically difficult exam [...] prior OUTSIDE echocardiographic exam performed on 05/2019 Zio Monitor 06/03 - 06/17/2023: Patient had a min HR of 45 bpm, max HR of 169 bpm, and avg HR of 62 bpm. Predominant underlying rhythm was Sinus Rhythm. 2 Supraventricular Tachycardia runs occurred, the run with the fastest interval lasting 10 beats with a max rate of 169 bpm (avg 135 bpm); the run with the fastest interval was also the longest. Isolated SVEs were rare (<1.0%), SVE Couplets were rare (<1.0%), and SVE Triplets were rare (<1.0%). Isolated VEs were rare (<1.0%), and no VE Couplets or VE Triplets were present. IMPRESSION: Mr. Loaiza is a 78 year old gentleman with a history of coronary artery disease prior coronary bypass grafting (MOHR-LAD, SVG-OM, SVG-PDA May 2019). Catheterization April 2023 [facility] demonstrating patent MOHR-LAD, SVG-OM. He is also treated for paroxysmal atrial fibrillation, hypertension, and dyslipidemia. He presents to the office for routine follow-up. PLAN AND RECOMMENDATIONS: 1. 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 - ICD9: 414.05, ICD10: I25.810 (primary diagnosis) Patient doing well without symptoms concerning for angina. Continue current medical therapy and risk factor modification 2. Paroxysmal atrial fibrillation (HCC) - ICD9: 427.31, ICD10: I48.0 No symptoms concerning for recurrent atrial fibrillation. I reviewed his monitor results in detail.Although, he states he only gets lightheaded when his heart rate is less than 50 he has multiple tracings showing his heart rate in the high 50s and low 60s. In addition, he gets lightheadedness withexertion which does not fit with his bradycardia. The etiology of his lightheadedness is unclear. I recommended holding Ranexa to see if he has any improvement in symptoms 3. Primary hypertension - ICD9: 401.9, ICD10: I10 Adequate control on current regimen 4. Dyslipidemia - ICD9: 272.4, ICD10: E78.5 Maintained on Crestor 40 mg daily. Fasting blood work from April 2023 was reviewed. LDL cholesterol 59 mg/dL Drake Agarwal MD documented in this encounterM[facility]04-23-2024 Instructions* Patient Instructions* Jocelyn Kee MA - 08/16/2023 10:05 AM EDT Start Prozac in place of Zoloft. documented in this encounterM[facility]04-23-2024 History of Present illness Narrative* Bella Santos MD - 08/16/2023 9:40 AM EDT Chief Complaint Patient presents with: F/U 3 Month HPI Jocelyn Loaiza is a 77 year old male who presents here today for 3 month follow up. Here today for his routine 3 month follow up. No bowel, Gi, or urinary issues. Uses Anusol rectal cream prn and Docusate Sodium softener, Flomax 0.4 mg [address] Shaffer, Urology at [facility]. GERD: Sx controlled, off Prilosec 20 mg daily. HTN & Afib & CAD: Taking Losartan 50 mg daily and Lopressor 25 mg 1 pill BID. Checking BP at home, but not as often, reports they are doing pretty good. No chest pains. Does experience sob and lightheadedness rarely, which he's asked Cardiology why he experiences this. Follows with Dr. Agarwal. A-fib/CAD: newly dx, taking Eliquis 5 mg BID and Ranexa 500 mg 1 pill BID. Lipid/Glucose: Tries to watch diet and exercising regularly. Has been able to get out and hike some. Had meeting with Battery Container Inspector to shift his work out around depending on how he feels. Taking Crestor 40mg daily. Tolerating well. Depression/LIANNA: Feels he's more anxious then depressed. Taking Zoloft 50 mg 3 tablets daily. Unsureif he's getting any benefit from the increased dosage of Zoloft. Thought he was getting some benefit, but now is not noticing any difference. Derm - Hx of rosacea, takes Doxycycline 20 mg bid. Stable. Reports having more aches and pain in his joints. Joined [facility], to help with his joint pain to help with movement and strength. Reports he gets some nerve pain in his legs that occurs when he lays in bed that will cause his legs to jump. HM - Does have Adv Dir/Living Will. Declines RSV and Shingrix vaccine. Past medical history, appointments, medications, allergies reviewed. [...] on File Prior to Visit Medication Sig ranolazine ER (RANEXA) 500 mg 12 hr tablet Take 1 tablet by mouth two times a day. rosuvastatin (CRESTOR) 40 mg tablet Take 1 tablet by mouth daily at bedtime. sertraline (ZOLOFT) 50 mg tablet Take 3 tablets by mouth once daily. ELIQUIS 5 mg tab(s) Take 1 tablet by mouth two times a day. Docusate Sodium 100 mg tab Take by mouth. MAGNESIUM ORAL Take 400 mg by mouth once daily. TURMERIC ORAL Take by mouth once daily. metoprolol tartrate, short acting, (LOPRESSOR) 25 mg tablet Take 1 tablet by mouth two times a day.(Patient taking differently: Take 12.5 mg by mouth two times a day.) losartan (COZAAR) 50 mg tablet Take 1 tablet by mouth once daily. hydrocortisone (ANUSOL-HC) 2.5 % rectal cream by RECTAL route twice daily. (Patient not taking: Reported on 06/03/2023) doxycycline 20 mg tablet Take 1 tablet by mouth twice daily. Cholecalciferol, Vitamin D3, 50 mcg (2,000 unit) cap Take by mouth. tamsulosin ER (FLOMAX) 0.4 mg Take 1 [...] Types: Cigarettes Quit date: 12/27/1976 Years since quittin.6 Smokeless tobacco: Never Tobacco comments: on and off Vaping Use Vaping Use: Never used Substance Use Topics Alcohol use: Yes Comment: occasional Drug use: No EXAM: BP 122/80 (BP Site: Left Arm, BP Position: Sitting, BP Cuff Size: Regular Adult) Pulse 64 Resp 16 Wt 70.9 kg (156 lb 6.4 oz) BMI 24.13 kg/m General Appearance: Well appearing, alert, in no acute distress, well-hydrated, well nourished.. Lungs: Lungs clear to auscultation. No wheezing, rhonchi, rales.. Heart: RRR without murmur, gallop, or rubs. No ectopy. Health Maintenance List BP Controlled (<130/80) Never done Shingrix Vaccine(1 of 2) Never done RSV Vaccine(1 - 1-dose 60+ series) Never done Covid-19 Vaccine(2022- season) due on 03/11/2023 Advance Directive Discussion due on 04/25/2023 Hepatitis C Screening due on 05/12/2024 Influenza Vaccine(Season Ended) due on 12/25/2023 LDL Cholesterol due on 05/05/2024 Annual PCP Team Chronic Disease Visit due on 06/03/2024 Diabetes Screening due on 05/05/2026 DTaP,Tdap,Td Vaccine(2 - Td or Tdap) due on 02/07/2027 Behavioral Health Screening Completed Pneumococcal Vaccine: 65+ Completed Colorectal Cancer Screening Discontinued Data reviewed None ASSESSMENT/PLAN: 1. Essential hypertension - ICD9: 401.9, ICD10: I10 (primary diagnosis) - Controlled - Continue current medications - Recommend home blood pressure monitoring, to bring results to next visit - Encouraged sodium restriction, DASH or Mediterranean diet - Recommend regular aerobic exercise - COMPREHENSIVE METABOLIC PANEL - LIPID PANEL BASIC 2. Anxiety and depression - ICD9: 300.00, 311, ICD10: F41.9, F32.A - With no real improvement with Zoloft, will change to Prozac - FLUOXETINE 20 MG CAPSULE 3. Elevated glucose - ICD9: 790.29, ICD10: R73.09 - check labs - continue watching diet and exercise - COMPREHENSIVE METABOLIC PANEL - LIPID PANEL BASIC - HEMOGLOBIN A1C 4. GERD without esophagitis - ICD9: 530.81, ICD10: K21.9 - Continue current medication regimen. - Stable 5. Rosacea - ICD9: 695.3, ICD10: L71.9 - Stable - Continue current medication regimen. 6. Dyslipidemia - ICD9: 272.4, ICD10: E78.5 - Stable - Continue current medications - Counseled on healthy diet and regular exercise - COMPREHENSIVE METABOLIC PANEL - LIPID PANEL BASIC 7. 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 - ICD9: 414.05, ICD10: I25.810 - Stable - Cont f/u with Cardiology - Continue current medication regimen. - LIPID PANEL BASIC 8. Hx of CABG - ICD9: V45.81, ICD10: Z95.1 - Stable - cont f/u with Cardiology - LIPID PANEL BASIC 9. Paroxysmal atrial fibrillation (HCC) - ICD9: 427.31, ICD10: I48.0 - Stable - Continue current medication regimen. 10. Nerve pain - ICD9: 729.2, ICD10: M79.2 - Rx sent in - Continue stretching before bed - CHOLECALCIFEROL (VITAMIN D3) 50 MCG (2,000 UNIT) CAPSULE - MAGNESIUM 400 MG ( MAGNESIUM OXIDE) CAPSULE 11. Benign prostatic hyperplasia without lower urinary tract symptoms - ICD9: 600.00, ICD10: N40.0 - Cont f/u with Urology - Continue current medication regimen. 3 mo f/u with fasting labs. I agree with the Chief Complaint, ROS, and Past Histories independently gathered by the clinical customer support technician and the remaining scribed note accurately describes my personal service to the patient. Medical Decision Making: Problems: Moderate: 2+ stable chronic illnesses Data: Unique test(s) ordered: 3+ Risk: Moderate: Drug management Medical Decision Making Level: 4 - Moderate Bella Santos MD The documentation for this note was completed by Jocelyn Kee MA acting as scribe for Bella Santos MD. August 16, 2023 10:02 AM. Jocelyn Kee MA documented in this encounterMansfield Hospital04-08-2024 Miscellaneous Notes* Telephone Encounter - Bouchra Spence MA - 08/01/2023 11:12 AM EDT Patient phones requesting refills as follows: Requested Prescriptions Pending Prescriptions Disp Refills ranolazine ER (RANEXA) 500 mg 12 hr tablet 180 tablet 3 Sig: Take 1 tablet by mouth two times a day. Please review and advise. Bouchra Specne MA documented in this encounterMansfield Hospital03-20-2024 Miscellaneous Notes* Telephone Encounter - Bouchra Spence MA - 07/13/2023 2:28 PM EDT Images from the original note were not included. Drake Agarwal MD to Jocelyn Loaiza Monitor results were unremarkable. Mathieu * Telephone Encounter - Blessing Lezama RN - 06/06/2023 10:58 AM EST Patient called in today stating that his SOB is about the same. Currently wearing a Zio patch. Patient instructed to notify us of any changes. Last Echo 05/02/23 Heart Cath 05/06/[address] Sanders Conclusion: Patent MOHR to the LAD and saphenous vein graft to obtuse marginal branch. Collateral filling of the right coronary artery. Patient asking if there are any other testing that can be done and if new medications can be reviewed by Cardiology. Renexa 500mg BID started 05/06/23 Eliquis 5mg BID starting 05/19/23 Please review and advise. Blessing Lezama RN * Telephone Encounter - Bouchra Spence MA - 06/03/2023 2:24 PM EST Pt was seen today by Magen Gilman NP for ER follow up. A 14 day zio heart monitor was placed at that time. Bouchra Spence MA * Telephone Encounter - Bouchra Spence MA - 06/03/2023 11:11 AM EST [facility] ER summary from yesterday indicates no significant cardiac abnormality. EKG showed normal sinusrhythm and pulse of 67. Labs and CXR also normal. Pt had done 30 minutes on the elliptical and then 40 minutes of weight lifting prior to these symptoms according to ER notes. Call to patient. He reiterated the normal results from Er. He states the main issue is SOB. He states its usually only with exertion and if he stops and rests, it goes away. He was informed that we would have Dr. Agarwal review when he is here on Tuesday to see what he would recommend. Pt is wanting heart monitor. He knows to go back to the ER if symptoms worsen. He knows to call PCP if he needs something prior to Tuesday. Will call patient back on Tuesday to get update on symptoms and give Dr. Agarwal's recommendations. Pt in agreement with plan. Bouchra Spence MA * Telephone Encounter - Anitra Royal MA - 06/03/2023 9:48 AM EST Patient called back concerned that he may not get a response back today from the provider. He is asking if he could be worked into the office schedule on Tuesday? Patient can be reached back at [phone]. * Telephone Encounter - Evelia Vu RN - 06/03/2023 9:37 AM EST Patient states he reduced his Metoprolol from 50mg to 25mg a couple weeks ago due a low heart rate.Starting Tuesday (06/01/2023) he decreased the metoprolol to 12.5mg. He went to [facility] ED yesterday for dizziness, shortness of breath and low heart rate (low 60s). Patient states he feels a bit better today. Instructed patient to go to the ED if the symptoms worsen or if he experiences any chest pain or loss of consciousness. Patient states the ED doctor was curious if the patient should wear a heart monitor. Is that something Dr. Agarwal would order and recommend? If not, what would the next step be? Please call the patient back with recommendations and next steps. documented in this encounterMansfield Hospital02-29-2024 Miscellaneous Notes* Telephone Encounter - Kenzie Prasad Ma - 06/23/2023 10:03 AM EST Pt notified of results via [employer]. Kenzei Prasad Ma * Telephone Encounter - Magen Gilman APRN.CNP - 06/23/2023 7:30 AM EST Please let the patient know that his heart monitor mainly showed that he was in sinus rhythm. Occasionally heart rate was in the upper 40s. He did have two episode of supraventricular tachycardia (SVT) where he heart rate increased to 169. As discussed in his visit, he should follow up with his quality assurance director to determine if any medication changes need to occur. He is already on a beta- arabella (metoprolol), which is used to control SVT. Magen Gilman APRN.EMA documented in this encounterMansfield Hospital02-19-2024 Miscellaneous Notes* Telephone Encounter - Crystal Wayne MA - 06/13/2023 1:00 PM EST Last dosage adjustment for Zoloft 05/17/23 from 50 MG to 100 MG. Patient asking to increase again & send new dose to [facility]. Pended Crestor for [facility] Mail order. Crystal Wayne MA * Telephone Encounter - Kenzie Prasad Ma - 06/13/2023 9:34 AM EST Asked pt to verify what mail order pharmacy he is using. [facility] no longer listed but [facility] is listed. Kenzie Prasad Ma documented in this encounterMansfield Hospital02-09-2024 History of Present illness Narrative* TYLER Spence Laurie - 06/03/2023 1:31 PM EST EVENT MONITOR DISPOSABLE PATCH INSTRUCTIONS Patient Name: Jocelyn Loaiza [facility] Number: [id number] Skin prepped and cleansed with alcohol Patch secured to prepped area Monitor Activated Serial #: [id number] Patient Instructed: Prescribed order timeframe Bathing guidelines Usage of event button and diary documentation Return of monitor at the end of prescribed order Call with problems [phone] or [phone]. [phone] Patient expresses a good understanding of instructions Bouchra Spenec MA * Magen Gilman APRN.MUSEUM INFORMATICS SPECIALIST - 06/03/2023 1:10 PM EST Chief Complaint Patient presents with: ED Follow-up HPI Jocelyn Loaiza is a 77 year old male who presents here today for ER Follow Up. follow up for palpitations, shortness of breath, lightheadedness.. Patient presented to the [facility] or yesterday, 06/02/2023 for palpitations, shortness of breath, lightheadedness. Patient had been vigorously working out, commenting that he did 30 minutes on an elliptical and 40 minutes of weightlifting. He usually does not do these 2 workouts back to back but did them anyway. Developed symptoms. In the emergency room had a normal BMP, troponin,EKG, chest x-ray. Patient did have a heart cath within the past month in which she had some occlusions but did not require stenting. He has a history of a CABG. He is on Eliquis for history of atrialfibrillation. His PCP has been decreasing his beta-arabella due to bradycardia complaints. Does follow with [facility] cardiology Dr. Agarwal. At this time he denies any current chest pain, shortness of breath, lightheadedness while at rest. He mentions he went on a long hike today and developed some shortness of breath. This resolved when he rested. He did call his cardiology office today but the quality assurance director was not in the office. Waiting for a call back on Tuesday. He states that the [facility] physician recommended a heart monitor. He would like this placed today. Past medical history, appointments, medications, allergies reviewed. EXAM: BP 130/74 Pulse 62 Wt 69.2 kg (152 lb 9.6 oz) SpO2 98% BMI 23.55 kg/m General Appearance: Well appearing, alert, in no acute distress, well-hydrated, well nourished.. Lungs: Lungs clear to auscultation. No wheezing, rhonchi, rales.. Heart: RRR without murmur, gallop, or rubs. No ectopy. ASSESSMENT/PLAN: 1. Palpitations - ICD9: 785.1, ICD10: R00.2 (primary diagnosis) -Encourage patient to continue to be active but scaled back. Discussed if he develops shortness of breath or chest pain that does not resolve, he needs to go to the emergency room immediately. He verbalized understanding. We will place a Zio patch today in office. He will follow-up with cardiology - OUTSIDE VENDOR CARDIAC OUTPATIENT EXTENDED RHYTHM RECORDING (WITHOUT TELEMETRY) 2. Paroxysmal atrial fibrillation (HCC) - ICD9: 427.31, ICD10: I48.0 -Continue with beta-arabella, Eliquis 3. Lightheadedness - ICD9: 780.4, ICD10: R42 -Rule out additional ectopy, Zio patch placed, follow-up with cardiology - OUTSIDE VENDOR CARDIAC OUTPATIENT EXTENDED RHYTHM RECORDING (WITHOUT TELEMETRY) Magen Gilman APRN.MUSEUM INFORMATICS SPECIALIST This note was partly generated using [employer] voice recognition dictation and may contain some misspelled or inaccurate words missed on review. documented in this encounterMansfield Hospital02-08-2024 Discharge summary Author Ezequiel Blas [facility] June 02, 2023 7:44pm Note Date/Time June 02, 2023 4 :51pm [facility] Medical Records Department [address] [facility] [place] [address] Emergency Department Summary 06/02/23 MR#: [id number] Acct: [id number] Name: JOCELYN LOAIZA Rep #:[id number] 1 : 1945 77 From: Ezequiel Blas DO PCP: Dr. Bella Santos MD Status:RE G ER Location: ED HPI History of Present Illness Chief Complaint: Palpitations Narrative Narrative: 77-year-old male presenting with palpitations, shortness of breath, lightheadedness. He states that he had cardiac cath by Dr. Salas for the last month and states he had some occlusions which did not require stenting. Historyof CABG. He is on Eliquis for history of A-fib. He is on metoprolol tartrate 50 mg p.o. twice daily initially however he was having some lightheadedness and palpitations so his primary care physician (Dr. Santos) decreased his medications to 25 mg p.o. twice daily and subsequently says he still had the same symptoms decreased to 12.5 mg p.o. twice daily which started yesterday. Patient has been on ranolazine which she states did help his chest discomfort after few days. Patient sees Dr. Agarwal who is his typical quality assurance director. He called today but has not heard phone call back. Patient states he worked out today but thinks he might of worked out too hard. He did 30 minutes on the elliptical and ended about 40 minutes of weightlifting. He states he would typically work out almost this long but he took this time between sets he says. He denies any chest pain. He states he feels very tired. No fevers or chills. No cough. [facility] Medical History Acne rosacea Atherosclerotic heart disease of [place] coronary artery without angina pectoris BPH (benign prostatic hyperplasia) Bradycardia Former smoker, stopped smoking in distant past Hyperlipidemia Hypertension Kidney stones HARLEY on CPAP Home Medications aspirin 81 mg tablet,delayed release 162 mg PO DAILY@0800 [facility] 01/22/14 [History Last Taken 05/31/19] acetaminophen 500 mg tablet 500 - 1,000 mg PO Q6H PRN PRN Pain Or Fever 07/05/19[History Last Taken Unknown] tamsulosin 0.4 mg capsule 0.4 mg PO BID prostate 07/05/19 [History Last Taken Unknown] doxycycline hyclate 20 mg tablet 20 mg PO BID infection 09/17/21 [History Last Taken Unknown] losartan 50 mg tablet 50 mg PO DAILY blood pressure 09/17/21 [History Last Taken Unknown] oxycodone 5 mg tablet 5 mg PO Q6H PRN pain 3 days #12 tabs 06/15/22 [Rx Last Taken Unknown] apixaban 5 mg tablet (Eliquis) 5 mg PO BID blood thinner #60 tabs 04/23/23 [Rx Last Taken Unknown] coQ10 (ubiquinol) 100 mg capsule (CoQmax Ubiquinol) 100 mg PO DAILY supplement 05/05/23 [History Last Taken Unknown] docusate sodium 100 mg capsule (Col-Rite) 100 mg PO DAILY stool softner 05/05/23[History Last Taken Unknown] glucosamine HCl 1,500 mg tablet 3,000 mg PO DAILY supplement 05/05/23 [History Last Taken Unknown] ivermectin 1 %-metronidazole 1 %-niacinamide 4 % topical gel (Aveidaoxia) 1 ea topical DAILY 05/05/23 [History Last Taken Unknown] magnesium 200 mg tablet 400 mg PO DAILY supplement 05/05/23 [History Last Taken Unknown] metoprolol tartrate 50 mg tablet (Lopressor) 50 mg PO BID blood pressure 05/05/23 [History Last Taken Unknown] rosuvastatin 40 mg tablet (Crestor) 40 mg PO QHS cholesterol 05/05/23 [History Last Taken Unknown] sertraline 50 mg tablet 50 mg PO DAILY mental health 05/05/23 [History Last Taken Unknown] ranolazine 500 mg tablet,extended release,12 hr 500 mg PO BID 90 days #180 tabs 05/06/23 [Rx Last Taken Unknown] Allergy/AdvReac Type Severity Reaction Status Date / Time No Known Allergies Allergy Verified 06/02/23 16:30 Family History Father Hypertension Mother Cancer Kidney stones Surgical History H/O hernia repair H/O lithotripsy Hx of tonsillectomy S/P triple vessel bypass Social History household members: spouse Smoking Status: Former smoker how long ago did patient quit smoking: Quit in the 1970s. alcohol intake: current alcohol intake frequency: holidays/special occasions only substance use type: does not use ROS ROS ED ROS Narrative Lightheadedness Constitutional Constitutional ED: Denies chills, fever(s) or sweats Eyes Eyes: Denies blurry vision or change in vision ENT ENT ED: Denies ear pain or sore throat Cardiovascular Cardiovascular: Reports palpitations and racing heartbeat; Denies chest pain Respiratory/Chest Respiratory/Chest: Reports dyspnea; Denies cough or sputum Gastrointestinal Gastrointestinal: Denies abdominal pain, constipation, diarrhea, nausea or vomiting Genitourinary Genitourinary ED: Denies dysuria, hematuria or urinary frequency Musculoskeletal Musculoskeletal: Denies arthralgias, myalgias or neck pain Integumentary Denies abscess, Abrasions or rash Neurologic Neurologic: Denies headache(s), paresthesias or weakness Psychiatric Psychiatric: Denies anxiety, depression, suicidal ideation or suicidal thoughts Endocrine Endocrinology: Denies polydipsia or polyuria EXAM Physical Exam Const Vital Signs: 06/02/23 16:31 06/02/23 16:29 06/02/23 16:47 Temperature 96.7 F L Temperature Source Temporal Pulse Rate 88 Respiratory Rate 16 Respiratory Effort Normal Non-Labored Blood Pressure 125/94 H Blood Pressure Mean 104 Pulse Ox 90 Oxygen Delivery Method Room Air Room Air 06/02/23 18:29 06/02/23 19:00 Temperature Temperature Source Pulse Rate Respiratory Rate 18 18 Respiratory Effort Blood Pressure Blood Pressure Mean Pulse Ox Oxygen Delivery Method Positive well nourished General Appearance ED: NAD; Negative for pallor HEENT Reports moist mucous membranes Eyes PERRL and EOMs intact bilaterally Chest Wall inspection of chest normal Resp normal respiratory effort and clear to auscultation bilaterally Auscultation: Negative for rales, rhonchi or wheezes Cardio regular rate and regular rhythm GI normal to inspection, nondistended, normoactive bowel sounds Back/Spine no CVA tenderness Neuro oriented x3 and CN's II-XII intact bilaterally Sensorium / Orientation: alert Motor Exam: strength 5/5 throughout Psych mental status grossly normal Skin no rashes or lesions noted General Skin Exam: Negative for jaundice or pallor MDM MDM MDM Narrative Medical decision making narrative: 78-year-old male presenting with palpitations and generalized weakness. Differential includes ACS, pneumonia, A-fib, a flutter, dehydration, anemia, electrolyte abnormalities. Considered PE but patient is anticoagulated on Eliquis. CBC obtained to assess white blood cell count, hemoglobin, platelets and insulinoma limits. BMP to assess renal function, electrolytes is also within normal limits. High- sensitivity troponin is 6. EKG on my interpretationshows a normal sinus rhythm with a ventricular rate of 67 bpm without sign ischemic change. Chest x-ray my interpretation shows no acute process. Patientfeeling well on examination. Repeat evaluation patient is heart rate is still in the 70s. He feels well and is well-appearing. Discussed his workup with himand I feel he stable for discharge home at this time. Impression: 1. Palpitations Lab Data Attestation: I reviewed the patient's lab results. Labs: Laboratory Results - last 24 hr 06/02/23 16:58 WBC 6.5 RBC 5.12 Hgb 15.6 Hct 47.4 MCV 92.6 MCH 30.5 MCHC 32.9 RDW Std Deviation 42.5 RDW Coeff of Namrata 12.5 Plt Count 237 MPV 9.2 Immature Gran % (Auto) 0.500 Neut % (Auto) 62.9 Lymph % (Auto) 21.6 Mccreary % (Auto) 12.2 H Eos % (Auto) 2.0 Baso % (Auto) 0.8 Absolute Neuts (auto) 4.1 Absolute Lymphs (auto) 1.40 Nucleated RBC % 0 Sodium 139 Potassium 4.3 Chloride 106 Carbon Dioxide 27.0 Anion Gap 6 BUN 25 H Creatinine 1.00 Estim Creat Clear Calc 58.76 Est GFR (MDRD) Af Amer 93 Est GFR (MDRD) Non-Af 77 BUN/Creatinine Ratio 25.0 H Glucose 104 Calcium 9.0 Troponin I High Sens 6 B-Natriuretic Peptide 33.6 Radiography Diagnostic Testing: Clinical Impression(s) from Imaging Studies Chest X-Ray 06/02/23 16:58 IMPRESSION: No definite acute or significant abnormality seen. Electronically Signed: Eren Shaw MD at 17:11 EST , Discharge Plan Triage Chief Complaint: Palpitations ED Provider: Ezequiel Blas Dx/Rx/DC Orders Instructions: ED Palpitations Prescriptions: No Action aspirin 81 MG tablet 162 mg PO DAILY@0800 acetaminophen 500 MG tablet 500 - 1,000 mg PO Q6H PRN PRN (Reason: Pain Or Fever) tamsulosin 0.4 MG capsule 0.4 mg PO BID losartan 50 mg tablet 50 mg PO DAILY Patient Comments: Take 1 tablet by mouth once daily. doxycycline hyclate 20 mg tablet 20 mg PO BID oxycodone 5 mg tablet 5 mg PO Q6H PRN (Reason: pain) 3 Days Qty: 12 0RF Eliquis 5 mg tablet 5 mg PO BID Qty: 60 0RF metoprolol tartrate [Lopressor] 50 mg tablet 50 mg PO BID Aveidaoxia 1-1-4 % gel 1 ea topical DAILY rosuvastatin [Crestor] 40 mg tablet 40 mg PO QHS docusate sodium [Col-Rite] 100 mg capsule 100 mg PO DAILY sertraline 50 mg tablet 50 mg PO DAILY Patient Comments: Take 1 tablet by mouth once daily. magnesium 200 mg tablet 400 mg PO DAILY glucosamine HCl 1,500 mg tablet 3,000 mg PO DAILY Rx Instructions: administer with a meal coQ10 (ubiquinol) [CoQmax Ubiquinol] 100 mg capsule 100 mg PO DAILY ranolazine 500 mg Tablet Extended Release 12 Hr 500 mg PO BID 90 Days Qty: 180 0RF Primary Care Provider: Bella Santos Referrals: Drake Agarwal MD [Non-Staff] - As soon as possible Bella Santos MD [Primary Care Provider] - Disposition Disposition: Home, Self Care What to do if you have Problems For any increased pain, shortness of breath, bleeding, nausea or vomiting, chestpain, or any unexpected problems, contact your Primary Care Provider. Call [facility] ([phone]) or report to the closest Emergency Room. Call 911 if necessary. 06/02/231943 <Electronically signed by Ezequiel Blas DO> Cosigner Signature (if applicable): CC: Dr. Bella Santos MD ~ Signed [facility] Work Phone: 1(983) 416-392102-08-2024 Miscellaneous Notes* Telephone Encounter - Bella Snatos MD - 06/02/2023 4:51 PM EST Noted, will review ER reports Bella Santos MD * Telephone Encounter - TYLER Spence Laurie - 06/02/2023 4:44 PM EST Pt is in the ER at [facility]. We will have Physiotherapist'S Assistant review ER notes when available. Bouchra Spence MA * Telephone Encounter - TYLER Spence Laurie - 06/02/2023 4:36 PM EST Cardiology not in until Tuesday. Will route to PCP to see if there is anything that they suggest in the interim. Bouchra Spence MA * Telephone Encounter - Viktoria Wade LPN - 06/02/2023 2:13 PM EST Patient called, verified name and date of , regarding heart palpitations. Last office visit 05/06/[address] Agarwal, Plan: We are decreasing the Metoprolol to 25 mg two times per day. Patient called stating that he was to cut back on metoprolol due to bradycardia. Patient stated hisblood pressure has been good, heart rate has been in 60s. Patient worked out 06/01/23 experienced heart palpitations, shortness of breath. Also had the same symptoms this morning once he got out of bed. Patient would like to be advised on issue. Viktoria Wade LPN June 02, 2023 2:19 PM [facility] Miscellaneous Notes* Telephone Encounter - Blessing Lezama RN - 05/31/2023 2:05 PM EST Patient currently taking Metoprolol 25mg BID. Please review and advise. Blessing Lezama RN * Telephone Encounter - Holli Willis LPN - 05/31/2023 1:39 PM EST Jocelyn called regarding low pulse rate, 51 to 52 and some SOB at times with palpations. Last office visit with Dr Agarwal was 05/09/2023. Wants to know if needs medication adjusted? Advised patient to go to ER if symptom increase. Patient stated was already at [facility] a couple of weeks ago Please review and advise. Thank you. Holli Willis LPN May 31, 2023 1:42 PM * Telephone Encounter - Yumiko Rebolledo RN - 05/31/2023 1:33 PM EST Created TE. * Telephone Encounter - Jocelyn Kee Ma - 05/30/2023 1:24 PM EST See pt message and advise. Pt has sent in [employer] message to Cardiology as well asking for recommendation on medication. Jocelyn Kee Ma documented [facility]01[facility]24 Consult note Author Yoseph Bowling [facility] May 06, 2023 3:04pm Note Date/Time May 06, 2023 3 :04pm [facility] Medical Records Department [address] [place] [id number] Counseling Note - Pharmacy 05/06/23 1503 MR#: [id number] Acct: [id number] Name: JOCELYN LOAIZA Rep #:[id number] : 1945 77 From: Yoseph Bowling PCP: Dr. Bella Santos MD Status:ELIANA CULVER Y Location: [place] [address] Pharmacy [facility] has performed discharge medication reconciliation and counseling for this patient. The patient's discharge medication list was reviewed for discrepancies and discrepancies were resolved. The patient was counseled on the following discharge medications and changes in medications for homegoing were reviewed. The Reason for Use, instructions for use, and potential side effects were reviewed for all new medications. The patient's questions regarding all of their medications were answered. 1. Ranolazine 500 mg PO BID The patient was able to verbally demonstrate an understanding of their dischargemedications. Medications at Discharge Home Medications aspirin 81 mg tablet,delayed release 162 mg PO DAILY@0800 [facility] 01/22/14 acetaminophen 500 mg tablet 500 - 1,000 mg PO Q6H PRN PRN Pain Or Fever 07/05/19 tamsulosin 0.4 mg capsule 0.4 mg PO BID prostate 07/05/19 doxycycline hyclate 20 mg tablet 20 mg PO BID infection 09/17/21 losartan 50 mg tablet 50 mg PO DAILY blood pressure 09/17/21 oxycodone 5 mg tablet 5 mg PO Q6H PRN pain 3 days #12 tabs 06/15/22 apixaban 5 mg tablet (Eliquis) 5 mg PO BID blood thinner #60 tabs 04/23/23 coQ10 (ubiquinol) 100 mg capsule (CoQmax Ubiquinol) 100 mg PO DAILY supplement 05/05/23 docusate sodium 100 mg capsule (Col-Rite) 100 mg PO DAILY stool softner 05/05/23 glucosamine HCl 1,500 mg tablet 3,000 mg PO DAILY supplement 05/05/23 ivermectin 1 %-metronidazole 1 %-niacinamide 4 % topical gel (Aveidaoxia) 1 ea topical DAILY 05/05/23 magnesium 200 mg tablet 400 mg PO DAILY supplement 05/05/23 metoprolol tartrate 50 mg tablet (Lopressor) 50 mg PO BID blood pressure 05/05/23 rosuvastatin 40 mg tablet (Crestor) 40 mg PO QHS cholesterol 05/05/23 sertraline 50 mg tablet 50 mg PO DAILY mental health 05/05/23 ranolazine 500 mg tablet,extended release,12 hr 500 mg PO BID 90 days #180 tabs 05/06/23 05/06/23 1504 <Electronically signed by Yoseph ernst> Date _ Yoseph Mccarty Signature (if applicable): Date CC: ~ Signed [facility] Work Phone: 1(455) 966-526201-12-2024 Discharge summary Author Drake House [facility] May 06, 2023 2:50pm Note Date/Time May 06, 2023 2 :51pm [facility] Medical Records Department [address] [place] [address] Discharge Summary 05/06/23 1448 MR#: [id number] Acct: [id number] Name: JOCELYN LOAIZA Rep #:[id number] : 1945 77 From: Drake House MD PCP: Dr. Bella Santos MD Status:AD M PALOMO Location: [place] [address] Providers Date of Admission: 05/05/23 Date of Discharge: 05/06/23 Primary Care Physician: Dr. Bella Santos MD Consultations 05/05/23 21:12 Consult: Cardiology Routine Consulting Provider: Archie Sanders Reason for Consult: Chest Pain EMERGENT Consult: No MD Notified: Yes Date Notified: 05/05/23 Time Notified: 16:35 Method of Notification: ED Physician Initiated Reason For Visit: CHEST PAIN Diagnosis Discharge Diagnosis (1) Exertional angina: Status: Acute Code(s): I20.89 - Other forms of angina pectoris (2) CAD (coronary artery disease): Status: Chronic Code(s): I25.10 - Atherosclerotic heart disease of [place] coronary artery without angina pectoris (3) Hypertension: Status: Chronic Code(s): I10 - Essential (primary) hypertension (4) Hyperlipidemia: Status: Acute Code(s): E78.5 - Hyperlipidemia, unspecified (5) Afib: Status: Acute Code(s): I48.91 - Unspecified atrial fibrillation Plan Patient is a 77-year-old gentleman with past medical history seen for coronary artery disease with previous CABG who presented with chest pain. An assessment of unstable angina made admitted to monitored bed with consultation placed to cardiology 1.. Unstable angina ? In a patient with known significant coronary artery disease admitted to monitored bed treatment initiated per protocol consultation placed cardiology plans for patient to undergo diagnostic cardiac cath with intervention if warranted - cardiac catheterization demonstrated normal left main coronary artery. Left anterior descending artery which is totally occluded. Left circumflex artery which is totally occluded. Right coronary artery which is occluded with normal collaterals. The saphenous vein graft to obtuse marginal branch is patent and feeds collaterals to the distal right coronary artery and the MOHR to the LAD ispatent. His ejection fraction is preserved. Case was discussed with Dr. Sanders with cardiology recommended optimization of medical therapy with addition of Ranexa to patient's treatment regimen 2. Coronary artery disease ? With previous CABG patient is on guideline directed medical therapy 3. Paroxysmal atrial fibrillation ? Patient is on rate controlling agent with metoprolol on apixaban for systemic anticoagulation being held in anticipation of patient left heart cath 4. Rosacea ? Patient is on doxycycline plan is to hold during patient hospital stay 5. Hypertension - Blood pressure controlled, home medications continued with dose adjustment as needed 6. Dyslipidemia ? Patient is on rosuvastatin did contain 7. BPH with lower urinary obstructive symptoms - Patient treated with tamsulosin 8. GERD ? On PPI 9. Obstructive sleep apnea ? Patient is on CPAP at night 10. Depression with anxiety ? Patient is on sertraline 11. DVT prophylaxis ? Patient was on systemic anticoagulation with apixaban Medications at Discharge Home Medications aspirin 81 mg tablet,delayed release 162 mg PO DAILY@0800 [facility] 01/22/14 acetaminophen 500 mg tablet 500 - 1,000 mg PO Q6H PRN PRN Pain Or Fever 07/05/19 tamsulosin 0.4 mg capsule 0.4 mg PO BID prostate 07/05/19 doxycycline hyclate 20 mg tablet 20 mg PO BID 09/17/21 losartan 50 mg tablet 50 mg PO DAILY 09/17/21 oxycodone 5 mg tablet 5 mg PO Q6H PRN pain 3 days #12 tabs 06/15/22 apixaban 5 mg tablet (Eliquis) 5 mg PO BID #60 tabs 04/23/23 coQ10 (ubiquinol) 100 mg capsule (CoQmax Ubiquinol) 100 mg PO DAILY 05/05/23 docusate sodium 100 mg capsule (Col-Rite) 100 mg PO DAILY 05/05/23 glucosamine HCl 1,500 mg tablet 3,000 mg PO DAILY 05/05/23 ivermectin 1 %-metronidazole 1 %-niacinamide 4 % topical gel (Aveidaoxia) 1 ea topical DAILY 05/05/23 magnesium 200 mg tablet 400 mg PO DAILY 05/05/23 metoprolol tartrate 50 mg tablet (Lopressor) 50 mg PO BID 05/05/23 rosuvastatin 40 mg tablet (Crestor) 40 mg PO QHS 05/05/23 sertraline 50 mg tablet 50 mg PO DAILY 05/05/23 ranolazine 500 mg tablet,extended release,12 hr 500 mg PO BID 90 days #180 tabs 05/06/23 Hospital Course Summary of Care Provided Minutes Spent on Discharge: 35 Physical Exam Narrative GENERAL: cooperative HEENT: Atraumatic; normocephalic EYES; Anicteric, Normal Conjunctiva NECK; supple, normal thyroid, RESPIRATORY: Diminished to auscultation CARDIOVASCULAR: Regular S1 S2, GI: soft, normoactive bowel sounds, : No Renal angle tenderness; EXTREMITIES: No edema, no clubbing, MUSCULOSKELETAL: no muscle wasting NEURO: Awake; no lateralizing signs. SKIN: No Rash PSYCH; Flat affect Weight / BMI Weight Weight: 67.3 kg Body Mass Index (BMI) 23.2 ABG / Lab / Microbiology Data 05/06/23 05:20 05/06/23 05:20 Laboratory: Laboratory Results - last 24 hr 05/05/23 13:30: Magnesium 2.4 05/05/23 21:35: Troponin I High Sens 9 05/06/23 05:20: WBC 6.7, RBC 4.89, Hgb 14.7, Hct 46.1, MCV 94.3 H, MCH 30.1, MCHC 31.9 L, RDW Std Deviation 41.1, RDW Coeff of Namrata 12.0, Plt Count 338, MPV 9.2, Immature Gran % (Auto) 0.600, Neut % (Auto) 66.4, Lymph % (Auto) 16.3 L, Mccreary % (Auto) 13.5 H, Eos % (Auto) 2.5, Baso % (Auto) 0.7, Absolute Neuts (auto)4.5, Absolute Lymphs (auto) 1.10, Nucleated RBC % 0, Sodium 142, Potassium 4.3, Chloride 111 H, Carbon Dioxide 27.0, Anion Gap 4 L, BUN 20 H, Creatinine 0.78, Estim Creat Clear Calc 73.44, Est GFR (MDRD) Af Amer 123, Est GFR (MDRD) Non-Af 102, BUN/Creatinine Ratio 25.5 H, Glucose 104, Calcium 8.6, Total Bilirubin 0.30, AST 23, ALT 35, Alkaline Phosphatase 45, Total Protein 6.4, Albumin 3.1 L,Globulin 3.3, Albumin/Globulin Ratio 0.9, Triglycerides 66, Cholesterol 101, LDLCholesterol 40, VLDL Cholesterol 13, HDL Cholesterol 48 D/C Instructions Discharge Diet: Low fat / Low cholesterol Discharge Activity: Return to Normal Activity Call your doctor if you observe: Fever of 101 or Higher, Shortness of breath, Fainting spells and Chest pain Meaningful Use Info Meaningful Use Diagnoses (Choose all that apply): None applicable Discharge Plan Admission Admit Date/Time: 05/05/23 15:12 Attending Provider: Drake House Primary Care Provider: Bella Santos Consulting Providers: Archie Sanders; Sammie Clarke Discharge Orders/Prescriptions Prescriptions: New ranolazine 500 mg Tablet Extended Release 12 Hr 500 mg PO BID 90 Days Qty: 180 0RF Continued aspirin 81 MG tablet 162 mg PO DAILY@0800 acetaminophen 500 MG tablet 500 - 1,000 mg PO Q6H PRN PRN (Reason: Pain Or Fever) tamsulosin 0.4 MG capsule 0.4 mg PO BID losartan 50 mg tablet 50 mg PO DAILY Patient Comments: Take 1 tablet by mouth once daily. doxycycline hyclate 20 mg tablet 20 mg PO BID oxycodone 5 mg tablet 5 mg PO Q6H PRN (Reason: pain) 3 Days Qty: 12 0RF Eliquis 5 mg tablet 5 mg PO BID Qty: 60 0RF metoprolol tartrate [Lopressor] 50 mg tablet 50 mg PO BID Aveidaoxia 1-1-4 % gel 1 ea topical DAILY rosuvastatin [Crestor] 40 mg tablet 40 mg PO QHS docusate sodium [Col-Rite] 100 mg capsule 100 mg PO DAILY sertraline 50 mg tablet 50 mg PO DAILY Patient Comments: Take 1 tablet by mouth once daily. magnesium 200 mg tablet 400 mg PO DAILY glucosamine HCl 1,500 mg tablet 3,000 mg PO DAILY Rx Instructions: administer with a meal coQ10 (ubiquinol) [CoQmax Ubiquinol] 100 mg capsule 100 mg PO DAILY Referrals / Follow Up: Bella Santos MD [Primary Care Provider] - Within 2 Weeks Disposition Disposition (needs filled in before D/C Order can be placed): Home, Self Care Charges/Coding Visit Charges Inpatient E&M: 68827 Disch Hosp >30min 05/06/23 1450 <Electronically signed by Drake House MD> Cosigner Signature (if applicable): CC: Dr. Drake House MD; Dr. Bella Santos MD~ Signed [facility] Work Phone: 1(842) 577-324101-12-2024 Progress note Author [facility] May 06, 2023 2:21pm Note Date/Time May 06, 2023 2 :21pm [facility] Medical Records Department [address] [place] [address] Progress Note - Cardiology 05/06/23 1420 MR#: [id number] Acct: [id number] Name: JOCELYN LOAIZA Rep #:[id number] : 1945 77 From: Archie Sanders MD PCP: Dr. Bella Santos MD Status:AD M PALOMO Location: [place] [address] Subjective Subjective Patient seen and evaluated. Underwent cardiac catheter patient today Objective Data Vital Signs: Vital Signs Temp Pulse Resp BP Pulse Ox O2 Del Method 97.2 F L 57 L 18 141/86 H 99 Room Air 05/06/23 10:45 05/06/23 10:47 05/06/23 10:45 05/06/23 10:45 05/06/23 10:45 05/06/23 10:45 Oxygen Delivery Method Room Air Weight: 148 lb 5.938 oz Body Mass Index (BMI) 23.2 Intake & Output: Intake and Output for Last 24 Hours 05/04/23 05/05/23 05/06/23 23:59 23:59 23:59 Intake Total 1300 / 1300 Balance 1300 / 1300 Lab / Micro Data 05/06/23 05:20 05/06/23 05:20 Labs: Laboratory Results - last 24 hr 05/05/23 13:30: Magnesium 2.4 05/05/23 21:35: Troponin I High Sens 9 05/06/23 05:20: WBC 6.7, RBC 4.89, Hgb 14.7, Hct 46.1, MCV 94.3 H, MCH 30.1, MCHC 31.9 L, RDW Std Deviation 41.1, RDW Coeff of Namrata 12.0, Plt Count 338, MPV 9.2, Immature Gran % (Auto) 0.600, Neut % (Auto) 66.4, Lymph % (Auto) 16.3 L, Mccreary % (Auto) 13.5 H, Eos % (Auto) 2.5, Baso % (Auto) 0.7, Absolute Neuts (auto)4.5, Absolute Lymphs (auto) 1.10, Nucleated RBC % 0, Sodium 142, Potassium 4.3, Chloride 111 H, Carbon Dioxide 27.0, Anion Gap 4 L, BUN 20 H, Creatinine 0.78, Estim Creat Clear Calc 73.44, Est GFR (MDRD) Af Amer 123, Est GFR (MDRD) Non-Af 102, BUN/Creatinine Ratio 25.5 H, Glucose 104, Calcium 8.6, Total Bilirubin 0.30, AST 23, ALT 35, Alkaline Phosphatase 45, Total Protein 6.4, Albumin 3.1 L,Globulin 3.3, Albumin/Globulin Ratio 0.9, Triglycerides 66, Cholesterol 101, LDLCholesterol 40, VLDL Cholesterol 13, HDL Cholesterol 48 Cardiology Labs/Tests 05/05/23 13:30: Magnesium 2.4 05/06/23 05:20: WBC 6.7, RBC 4.89, Hgb 14.7, Hct 46.1, MCV 94.3 H, MCH 30.1, MCHC 31.9 L, Plt Count 338, MPV 9.2, Immature Gran % (Auto) 0.600, Neut % (Auto)66.4, Lymph % (Auto) 16.3 L, Mccreary % (Auto) 13.5 H, Eos % (Auto) 2.5, Baso % (Auto) 0.7, Absolute Neuts (auto) 4.5, Nucleated RBC % 0, Sodium 142, Potassium 4.3, Chloride 111 H, Carbon Dioxide 27.0, Anion Gap 4 L, BUN 20 H, Creatinine 0.78, Est GFR (MDRD) Af Amer 123, Est GFR (MDRD) Non-Af 102, BUN/Creatinine Ratio 25.5 H, Glucose 104, Calcium 8.6, Total Bilirubin 0.30, Triglycerides 66, Cholesterol 101, LDL Cholesterol 40, VLDL Cholesterol 13, HDL Cholesterol 48 Rhythm: EKG: ECHO: Stress Test: Cardiac Cath: PCI: CT Surgery: Holter monitor: EPS: PPM: CXR: Chest CT Scan: Physical Exam Const alert, oriented x3 and no apparent distress General Appearance: cooperative HEENT hearing grossly normal bilaterally Head and Scalp: atraumatic Eyes EOMs intact bilaterally Neck General: normal visual inspection Chest inspection of chest normal and palpation of chest normal Resp normal respiratory effort Auscultation: clear to auscultation bilaterally Cardio regular rate, regular rhythm, S1 normal heart sound and S2 normal heart sound Jugular Venous Distention: JVD GI normal to inspection, nondistended, normoactive bowel sounds Extremity normal capillary refill and no pedal edema Peripheral Pulses: Yes pulses 2+ throughout and femoral pulses present Skin no rashes or lesions noted Neuro oriented x3 and CN's II-XII intact bilaterally Psych Appearance: grossly normal and appropriate Assessment & Plan Assessment/Plan (1) Exertional angina: PLAN: He does have evidence of exertional angina. His cardiac catheterization demonstrated normal left main coronary artery. Left anterior descending artery which is totally occluded. Left circumflex artery which is totally occluded. Right coronary artery which is occluded with normal collaterals. The saphenous vein graft to obtuse marginal branch is patent and feeds collaterals to the distal right coronary artery and the MOHR to the LAD is patent. His ejection fraction is preserved. I would recommend medical therapy. (2) CAD (coronary artery disease): PLAN: He does have coronary artery disease as noted above. He is status post coronary bypass surgery. See above results. (3) Hypertension: PLAN: He has a history of hypertension his blood pressure is under good control at this time we will continue current medication with the beta-arabella and the losartan. (4) Hyperlipidemia: PLAN: He does have a history of hyperlipidemia and will continue with high intensity statin. (5) Afib: PLAN: He does have a history of paroxysmal atrial fibrillation. His own history. He had been on Eliquis. This will be temporarily held until his procedure is undertaken. Thank you for allowing me to participate in the care of your patient. Please don't hesitate to call if any issues arise. 05/06/23 1421 <Electronically signed by Archie Sanders MD> Cosigner Signature (if applicable): CC: ~ Signed [facility] Work Phone: 1(812) 836-268801-12-2024 Consult note Author Archie Sanders [facility] May 06, 2023 2:20pm Note Date/Time May 05, 2023 7 :20pm [facility] Medical Records Department [address] [place] [address] Consultation - Cardiology 05/05/231914 MR#: [id number] Acct: [id number] Name: JOCELYN LOAIZA Nunu Rep #:[id number] 1 : 1945 77 From: Archie Sanders MD PCP: Dr. Bella Santos MD Status:AD M PALOMO Location: [place] [address] Assessment & Plan Assessment/Plan (1) Exertional angina: PLAN: He does have evidence of exertional angina. At this time his cardiac enzymes are normal and I would recommend that we pursue left heart catheterization. The risk benefits alternatives have been explained to him he understands and agrees to proceed. My understanding is that he had a recent echocardiogram. We will request these records. (2) CAD (coronary artery disease): PLAN: He does have coronary artery disease as noted above. He is status post coronary bypass surgery. Unfortunately we do not have indication with the bypass surgery vessels are. Will try and obtain this by a.m. (3) Hypertension: PLAN: He has a history of hypertension his blood pressure is under good control at this time we will continue current medication with the beta-arabella and the losartan. (4) Hyperlipidemia: PLAN: He does have a history of hyperlipidemia and will continue with high intensity statin. (5) Afib: PLAN: He does have a history of paroxysmal atrial fibrillation. His own history. He had been on Eliquis. This will be temporarily held until his procedure is undertaken. Thank you for allowing me to participate in the care of your patient. Please don't hesitate to call if any issues arise. HPI Consult Data Date of Consult: 05/06/23 HPI Narrative HPI Narrative: JOCELYN LOAIZA, is a 77 M who presents to the emergency room with complaints ofchest discomfort described as a heaviness occurring during exercise most recently during his using the elliptical. He says that this radiated to the left side of his chest. It went away with rest. He presented to the emergency room was evaluated cardiac enzymes were normal and EKG did not demonstrate any acute changes. His past medical history is significant for coronary bypass surgery 3 to 4 years ago at the [facility] system. He also says that he was recently diagnosed with atrial fibrillation and was placed on Eliquis. He follows up with the physicians at the [facility] and was scheduled to havea family physician appointment on Tuesday as well as a quality assurance director appointment in a few weeks. He prefers to stay here for disc current visit. He is currently pain-free and has been compliant with his medications. He denies any neck arm or jaw discomfort otherwise. [facility] Medical History (Updated 05/05/23 @ 19:[address] Archie Sanders MD) Acne rosacea Atherosclerotic heart disease of [place] coronary artery without angina pectoris BPH (benign prostatic hyperplasia) Bradycardia Former smoker, stopped smoking in distant past Hyperlipidemia Hypertension Kidney stones HARLEY on CPAP Home Medications aspirin 81 mg tablet,delayed release 162 mg PO DAILY@0800 [facility] 01/22/14 [History Last Taken 05/31/19] acetaminophen 500 mg tablet 500 - 1,000 mg PO Q6H PRN PRN Pain Or Fever 07/05/19[History Last Taken Unknown] tamsulosin 0.4 mg capsule 0.4 mg PO BID prostate 07/05/19 [History Last Taken Unknown] doxycycline hyclate 20 mg tablet 20 mg PO BID 09/17/21 [History Last Taken Unknown] losartan 50 mg tablet 50 mg PO DAILY 09/17/21 [History Last Taken Unknown] oxycodone 5 mg tablet 5 mg PO Q6H PRN pain 3 days #12 tabs 06/15/22 [Rx Last Taken Unknown] apixaban 5 mg tablet (Eliquis) 5 mg PO BID #60 tabs 04/23/23 [Rx Last Taken Unknown] coQ10 (ubiquinol) 100 mg capsule (CoQmax Ubiquinol) 100 mg PO DAILY 05/05/23 [History Last Taken Unknown] docusate sodium 100 mg capsule (Col-Rite) 100 mg PO DAILY 05/05/23 [History Last Taken Unknown] glucosamine HCl 1,500 mg tablet 3,000 mg PO DAILY 05/05/23 [History Last Taken Unknown] ivermectin 1 %-metronidazole 1 %-niacinamide 4 % topical gel (Aveidaoxia) 1 ea topical DAILY 05/05/23 [History Last Taken Unknown] magnesium 200 mg tablet 400 mg PO DAILY 05/05/23 [History Last Taken Unknown] metoprolol tartrate 50 mg tablet (Lopressor) 50 mg PO BID 05/05/23 [History Last Taken Unknown] rosuvastatin 40 mg tablet (Crestor) 40 mg PO QHS 05/05/23 [History Last Taken Unknown] sertraline 50 mg tablet 50 mg PO DAILY 05/05/23 [History Last Taken Unknown] Allergy/AdvReac Type Severity Reaction Status Date / Time No Known Allergies Allergy Verified 05/05/23 10:33 Family History Father Hypertension Mother Cancer Kidney stones Surgical History H/O hernia repair H/O lithotripsy Hx of tonsillectomy S/P triple vessel bypass Social History household members: spouse Smoking Status: Former smoker how long ago did patient quit smoking: Quit in the 1970s. alcohol intake: current alcohol intake frequency: holidays/special occasions only substance use type: does not use ROS Constitutional Constitutional: Denies fever(s) or weight loss Eyes Eyes: Reports systems reviewed and no addt'l complaints, except as documented ENT HEENT: Reports systems reviewed and no addt'l complaints, except as documented Cardiovascular Cardiovascular: Reports chest pain at rest and chest pain with activity; Denies dyspnea at rest, dyspnea on exertion, edema, palpitations or paroxysmal nocturnal dyspnea Respiratory/Chest Respiratory/Chest: Denies dyspnea on exertion, productive cough, shortness of breath at rest or shortness of breath with exertion Gastrointestinal Gastrointestinal: Denies change in bowel habits, nausea, vomiting or weight changes Genitourinary Genitourinary: Denies difficulty urinating Musculoskeletal Musculoskeletal: Denies joint stiffness or muscle weakness Integumentary Integumentary: Denies lesions Neurologic Neurologic: Denies dizziness or syncope Psychiatric Psychiatric: Denies anxiety Endocrine Endocrinology: Denies excessive sweating or fatigue Hematologic/Lymphatic Hematologic/Lymphatic: Denies anemia Allergic/Immunologic Allergic/Immunologic: Denies seasonal rhinorrhea Physical Exam Const alert, oriented x3 and no apparent distress General Appearance: cooperative HEENT hearing grossly normal bilaterally Head and Scalp: atraumatic Eyes EOMs intact bilaterally Neck General: normal visual inspection Chest inspection of chest normal and palpation of chest normal Resp normal respiratory effort Auscultation: clear to auscultation bilaterally Cardio regular rate, regular rhythm, S1 normal heart sound and S2 normal heart sound Jugular Venous Distention: JVD GI normal to inspection, nondistended, normoactive bowel sounds Extremity normal capillary refill and no pedal edema Peripheral Pulses: Yes pulses 2+ throughout and femoral pulses present Skin no rashes or lesions noted Neuro oriented x3 and CN's II-XII intact bilaterally Psych Appearance: grossly normal and appropriate Risk Stratification Risk Stratification Applicable: Yes Age >/= 65: Yes >/= 3 CAD Risk Factors (HTN, HLD, DM, family hx of CAD, or current smoker): Yes Aspirin Use in the Past 7 Days: Yes Severe Angina (>/= episodes in 24 hours): Yes EKG ST Changes >/= 0.5mm: No Positive Cardiac Marker: No RIAN Risk Stratification Score: 4 RIAN % Risk: 20% Risk Objective Data Vital Signs: Vital Signs Temp Pulse Resp BP Pulse Ox O2 Del Method 96.8 F L 59 L 16 148/82 H 97 Room Air 05/05/23 10:34 05/05/23 19:00 05/05/23 19:00 05/05/23 19:00 05/05/23 19:00 05/05/23 19:00 Oxygen Delivery Method Room Air Weight: 153 lb 9.6 oz Body Mass Index (BMI) 24.0 Lab / Micro Data 05/06/23 05:20 05/06/23 05:20 Labs: Laboratory Results - last 24 hr 05/05/23 11:15: WBC 6.1, RBC 5.32, Hgb 16.0, Hct 50.3, MCV 94.5 H, MCH 30.1, MCHC 31.8 L, RDW Std Deviation 40.8, RDW Coeff of Namrata 11.9, Plt Count 349, MPV 9.0, Immature Gran % (Auto) 0.700, Neut % (Auto) 67.0, Lymph % (Auto) 16.0 L, Mccreary % (Auto) 13.5 H, Eos % (Auto) 1.8, Baso % (Auto) 1.0, Absolute Neuts (auto)4.1, Absolute Lymphs (auto) 0.98, Nucleated RBC % 0, Sodium 140, Potassium 4.5, Chloride 107, Carbon Dioxide 30.0, Anion Gap 3 L, BUN 18, Creatinine 0.95, EstimCreat Clear Calc 61.85, Est GFR (MDRD) Af Amer 99, Est GFR (MDRD) Non-Af 82, BUN/Creatinine Ratio 19.0, Glucose 100, Calcium 9.5, Troponin I High Sens 8 05/05/23 13:30: Magnesium 2.4, Troponin I High Sens 9 Cardiology Labs/Tests 05/05/23 11:15: WBC 6.1, RBC 5.32, Hgb 16.0, Hct 50.3, MCV 94.5 H, MCH 30.1, MCHC 31.8 L, Plt Count 349, MPV 9.0, Immature Gran % (Auto) 0.700, Neut % (Auto)67.0, Lymph % (Auto) 16.0 L, Mccreary % (Auto) 13.5 H, Eos % (Auto) 1.8, Baso % (Auto) 1.0, Absolute Neuts (auto) 4.1, Nucleated RBC % 0, Sodium 140, Potassium 4.5, Chloride 107, Carbon Dioxide 30.0, Anion Gap 3 L, BUN 18, Creatinine 0.95, Est GFR (MDRD) Af Amer 99, Est GFR (MDRD) Non-Af 82, BUN/Creatinine Ratio 19.0, Glucose 100, Calcium 9.5 05/05/23 13:30: Magnesium 2.4 Rhythm: EKG: ECHO: Stress Test: Cardiac Cath: PCI: CT Surgery: Holter monitor: EPS: PPM: CXR: Chest CT Scan: Radiography Diagnostic Testing: Radiology Impression Chest X-Ray 05/05/23 11:06 IMPRESSION: Hyperinflation. The lungs are clear. Electronically Signed: Mo Mares MD at 12:07 EST Reading Location ID and State: [address] [place] [address] , Service support , 05/06/23 1420 <Electronically signed by Archie Sanders MD> Cosigner Signature (if applicable): CC: Dr. Sammie Clarke MD; Dr. Archie Sanders MD; Dr. Bella Santos MD~ Signed [facility] Work Phone: 1(325) 786-396801-12-2024 Progress note Author Drake House [facility] May 06, 2023 9:47am Note Date/Time May 06, 2023 9 :40am [facility] Medical Records Department [address] [facility] [place] [address] Progress Note - Hospitalist 05/06/23 0937 MR#: [id number] Acct: [id number] Name: JOCELYN LOAIZA #:[id number] 2 : 1945 77 From: Drake House MD PCP: Dr. Bella Santos MD Status:AD M PALOMO Location: [place] [address] Reason for Visit Reason for Visit: Diagnoses Other forms of angina pectoris (05/05/23) Subjective Subjective Patient is a 77-year-old gentleman with past medical history seen for coronary artery disease with previous CABG who presented with chest pain. An assessment of unstable angina made admitted to monitored bed with consultation placed to cardiology Objective Data Objective Data Vital Signs: Vital Signs Temp Pulse Resp BP Pulse Ox O2 Del Method 97.8 F 49 L 16 144/77 H 99 Room Air 05/06/23 07:40 05/06/23 07:40 05/06/23 07:40 05/06/23 07:40 05/06/23 07:40 05/06/23 07:40 Oxygen Delivery Method Room Air Weight: 67.3 kg Body Mass Index (BMI) 23.2 Intake & Output: Intake and Output for Last 24 Hours 05/04/23 05/05/23 05/06/23 23:59 23:59 23:59 Intake Total 1240 / 1240 Balance 1240 / 1240 Lab / Micro Data 05/06/23 05:20 05/06/23 05:20 Labs: Laboratory Results - last 24 hr 05/05/23 11:15: WBC 6.1, RBC 5.32, Hgb 16.0, Hct 50.3, MCV 94.5 H, MCH 30.1, MCHC 31.8 L, RDW Std Deviation 40.8, RDW Coeff of Namr[place] 11.9, Plt Count 349, MPV 9.0, Immature Gran % (Auto) 0.700, Neut % (Auto) 67.0, Lymph % (Auto) 16.0 L, Mccreary % (Auto) 13.5 H, Eos % (Auto) 1.8, Baso % (Auto) 1.0, Absolute Neuts (auto)4.1, Absolute Lymphs (auto) 0.98, Nucleated RBC % 0, Sodium 140, Potassium 4.5, Chloride 107, Carbon Dioxide 30.0, Anion Gap 3 L, BUN 18, Creatinine 0.95, EstimCreat Clear Calc 61.85, Est GFR (MDRD) Af Amer 99, Est GFR (MDRD) Non-Af 82, BUN/Creatinine Ratio 19.0, Glucose 100, Calcium 9.5, Troponin I High Sens 8 05/05/23 13:30: Magnesium 2.4, Troponin I High Sens 9 05/05/23 21:35: Troponin I High Sens 9 05/06/23 05:20: WBC 6.7, RBC 4.89, Hgb 14.7, Hct 46.1, MCV 94.3 H, MCH 30.1, MCHC 31.9 L, RDW Std Deviation 41.1, RDW Coeff of Namr[place] 12.0, Plt Count 338, MPV 9.2, Immature Gran % (Auto) 0.600, Neut % (Auto) 66.4, Lymph % (Auto) 16.3 L, Mccreary % (Auto) 13.5 H, Eos % (Auto) 2.5, Baso % (Auto) 0.7, Absolute Neuts (auto)4.5, Absolute Lymphs (auto) 1.10, Nucleated RBC % 0, Sodium 142, Potassium 4.3, Chloride 111 H, Carbon Dioxide 27.0, Anion Gap 4 L, BUN 20 H, Creatinine 0.78, Estim Creat Clear Calc 73.44, Est GFR (MDRD) Af Amer 123, Est GFR (MDRD) Non-Af 102, BUN/Creatinine Ratio 25.5 H, Glucose 104, Calcium 8.6, Total Bilirubin 0.30, AST 23, ALT 35, Alkaline Phosphatase 45, Total Protein 6.4, Albumin 3.1 L,Globulin 3.3, Albumin/Globulin Ratio 0.9, Triglycerides 66, Cholesterol 101, LDLCholesterol 40, VLDL Cholesterol 13, HDL Cholesterol 48 Radiography Diagnostic Testing: Radiology Impression Chest X-Ray 05/05/23 11:06 IMPRESSION: Hyperinflation. The lungs are clear. Electronically Signed: Mo Mares MD at 12:07 EST , Physical Exam Narrative GENERAL: cooperative HEENT: Atraumatic; normocephalic EYES; Anicteric, Normal Conjunctiva NECK; supple, normal thyroid, RESPIRATORY: Diminished to auscultation CARDIOVASCULAR: Regular S1 S2, GI: soft, normoactive bowel sounds, : No Renal angle tenderness; EXTREMITIES: No edema, no clubbing, MUSCULOSKELETAL: no muscle wasting NEURO: Awake; no lateralizing signs. SKIN: No Rash PSYCH; Flat affect Assessment & Plan Assessment/Plan (1) Exertional angina: PLAN: Plan Patient is a 77-year-old gentleman with past medical history seen for coronary artery disease with previous CABG who presented with chest pain. An assessment of unstable angina made admitted to monitored bed with consultation placed to cardiology . Unstable angina ? In a patient with known significant coronary artery disease admitted to monitored bed treatment initiated per protocol consultation placed cardiology plans for patient to undergo diagnostic cardiac cath with intervention if warranted 2. Coronary artery disease ? With previous CABG patient is on guideline directed medical therapy 3. Paroxysmal atrial fibrillation ? Patient is on rate controlling agent with metoprolol on apixaban for systemic anticoagulation being held in anticipation of patient left heart cath 4. Rosacea ? Patient is on doxycycline plan is to hold during patient hospital stay 5. Hypertension - Blood pressure controlled, home medications continued with dose adjustment as needed 6. Dyslipidemia ? Patient is on rosuvastatin did contain 7. BPH with lower urinary obstructive symptoms - Patient treated with tamsulosin 8. GERD ? On PPI 9. Obstructive sleep apnea ? Patient is on CPAP at night 10. Depression with anxiety ? Patient is on sertraline 11. DVT prophylaxis ? Patient was on systemic anticoagulation with apixaban Charges/Coding Visit Charges Inpatient E&M: 35892 Subs Hosp L3 05/06/23 0947 <Electronically signed by Drake House MD> Cosigner Signature (if applicable): CC: ~ Signed [facility] Work Phone: [phone]) 198-829101-11-2024 History and physical note Author Sammie Clarke [facility] May 05, 2023 4:35pm Note Date/Time May 05, 2023 2 :36pm [facility] Medical Records Department [address] [place] [id number] H&P Exam - Hospitalist 05/05/23 1436 MR#: [id number] Acct: [id number] Name: JOCELYN LOAIZA Rep #:[id number] : 1945 77 From: Sammie Clarke MD PCP: Dr. Bella Santos MD Status:RE G ER Location: ED HPI - General General Date of Admission: 05/05/23 Date of Service: 05/05/23 Chief Complaint: Chest pain/tightness/dyspnea. HPI Narrative The patient is a 77 y/o M w/ PMHx: Anxiety and Depression, Rosacea, CAD s/p CABGx 3, HTN, HLD, Former tobacco use, Chronic bradycardia, BPH, HARLEY on CPAP, GERD who presents to the [facility] ED on 05/05/23 with history of chest tightness and pressure- like sensation with radiation to the left upper extremity with associated dyspnea with an episode occurring approximate 1 week prior coming on suddenly when he was exerting himself and unfortunately has been intermittent since then with primarily again left chest and substernal discomfort with also diaphoresis with history of recent admission 2 weeks prior secondary to new onset atrial fibrillation started on Eliquis at that time prompting eventual ED evaluation. Patient notes that yesterday he was on elliptical and the discomfort developed shortly after he started at approximately 10 to 15 minutes although normally he rides for 30 minutes and prior to this onset had not been an issue. Today however he had onset after minimal activity which was differentprompting again evaluation. Patient in the ED does report that when he is been having his episodes his pain has been more aching in sensation and rated at 1-2 out of 10 in severity. He is currently chest pain-free in the ED seated. Workup in the ED included T96.8, heart initially 49 vacillating in the 50s and most recently 48, BP initially 151/79 with most recent repeat 143/87, respiratory rate 18, 97% room air, CBC with a WBC 6.1, hemoglobin 16, platelet 249 without marked shift, unremarkable BMP, troponin initial 8 with repeat delta9, chest x-ray with hyperinflation with no acute cardiopulmonary findings, EKG with sinus rhythm with nonspecific changes with no acute evidence of ischemia. ED discussed case with Cardiology Dr. Sanders. From discussion with ED physician he had recent outpatient ECHO with noted preserved EF, trivial valvular disease,diastolic dysfunction. [facility] Medical History (Updated 05/05/23 @ 16:[address] Sammie Clarke MD) Acne rosacea Atherosclerotic heart disease of [place] coronary artery without angina pectoris BPH (benign prostatic hyperplasia) Bradycardia Former smoker, stopped smoking in distant past Hyperlipidemia Hypertension Kidney stones HARLEY on CPAP Home Medications aspirin 81 mg tablet,delayed release 162 mg PO DAILY@0800 [facility] 01/22/14 [History Last Taken 05/31/19] acetaminophen 500 mg tablet 500 - 1,000 mg PO Q6H PRN PRN Pain Or Fever 07/05/19[History Last Taken Unknown] tamsulosin 0.4 mg capsule 0.4 mg PO BID prostate 07/05/19 [History Last Taken Unknown] doxycycline hyclate 20 mg tablet 20 mg PO BID 09/17/21 [History Last Taken Unknown] losartan 50 mg tablet 50 mg PO DAILY 09/17/21 [History Last Taken Unknown] oxycodone 5 mg tablet 5 mg PO Q6H PRN pain 3 days #12 tabs 06/15/22 [Rx Last Taken Unknown] apixaban 5 mg tablet (Eliquis) 5 mg PO BID #60 tabs 04/23/23 [Rx Last Taken Unknown] coQ10 (ubiquinol) 100 mg capsule (CoQmax Ubiquinol) 100 mg PO DAILY 05/05/23 [History Last Taken Unknown] docusate sodium 100 mg capsule (Col-Rite) 100 mg PO DAILY 05/05/23 [History Last Taken Unknown] glucosamine HCl 1,500 mg tablet 3,000 mg PO DAILY 05/05/23 [History Last Taken Unknown] ivermectin 1 %-metronidazole 1 %-niacinamide 4 % topical gel (Aveidaoxia) 1 ea topical DAILY 05/05/23 [History Last Taken Unknown] magnesium 200 mg tablet 400 mg PO DAILY 05/05/23 [History Last Taken Unknown] metoprolol tartrate 50 mg tablet (Lopressor) 50 mg PO BID 05/05/23 [History Last Taken Unknown] rosuvastatin 40 mg tablet (Crestor) 40 mg PO QHS 05/05/23 [History Last Taken Unknown] sertraline 50 mg tablet 50 mg PO DAILY 05/05/23 [History Last Taken Unknown] Allergy/AdvReac Type Severity Reaction Status Date / Time No Known Allergies Allergy Verified 05/05/23 10:33 Family History Father Hypertension Mother Cancer Kidney stones Surgical History H/O hernia repair H/O lithotripsy Hx of tonsillectomy S/P triple vessel bypass Social History household members: spouse Smoking Status: Former smoker how long ago did patient quit smoking: Quit in the 1970s. alcohol intake: current alcohol intake frequency: holidays/special occasions only substance use type: does not use ROS ROS Narrative Admission Review of Systems: CONSTITUTIONAL: No weight loss, fever, chills, + weakness or fatigue. HEENT: Eyes: No visual loss, blurred vision, double vision or yellow sclerae. Ears, Nose, Throat: No hearing loss, sneezing, congestion, runny nose or sore throat. SKIN: No rash or itching, lesions, wounds except + Hx rosacea. CARDIOVASCULAR: + Chest pain. No palpitations, edema, orthopnea, syncopal events. RESPIRATORY: + Shortness of breath. No cough or sputum, wheezing, hemoptysis. GASTROINTESTINAL: No anorexia, nausea, vomiting or diarrhea, abdominal pain, melena, BRBPR. GENITOURINARY: No dysuria, frequency, urgency or retention. NEUROLOGICAL: No headache, dizziness, syncope, paralysis, ataxia, numbness or tingling in the extremities, focal weakness, change in bowel or bladder control,seizure. MUSCULOSKELETAL: No muscle, back pain, joint pain or stiffness. HEMATOLOGIC: No anemia, bleeding or bruising. LYMPHATICS: No enlarged nodes. No history of splenectomy. PSYCHIATRIC: + History anxiety and depression. ENDOCRINOLOGIC: No reports of sweating, cold or heat intolerance. No polyuria orpolydipsia. ALLERGIES: No history of asthma, hives, eczema or rhinitis. Vital Signs Vital Signs Vital Signs: 05/05/23 10:34 05/05/23 11:28 05/05/23 11:28 Temperature 96.8 F L Temperature Source Temporal Pulse Rate 49 L 52 L Respiratory Rate 16 13 Respiratory Effort Blood Pressure 151/79 H Blood Pressure Mean 103 Pulse Ox 98 98 Oxygen Delivery Method Room Air Room Air Room Air 05/05/23 11:28 05/05/23 12:00 05/05/23 13:00 Temperature Temperature Source Pulse Rate 55 L 59 L Respiratory Rate 21 H 19 H Respiratory Effort Normal Blood Pressure 137/81 H 142/79 H Blood Pressure Mean 99 100 Pulse Ox 98 98 Oxygen Delivery Method Room Air Room Air 05/05/23 14:00 Temperature Temperature Source Pulse Rate 48 L Respiratory Rate 18 Respiratory Effort Blood Pressure 143/87 H Blood Pressure Mean 105 Pulse Ox 97 Oxygen Delivery Method Room Air Weight Weight: 153 lb 9.6 oz Body Mass Index (BMI) 24.0 Physical Exam Narrative Physical Examination: General: Awake, alert, oriented x 3 and cooperative, seated upright in the ED bed in no apparent distress, denies any current chest discomfort or dyspnea. Skin: Normal color, normal turgor, no icterus, no cyanosis. HEENT: AT/NC, EOMI, PERRLA, mildly dry MM, no carotid bruits or JVD noted. Lungs: CTA bilaterally, moderate effort, mild decrease BL bases, no rales, ronchi or wheezing. Heart: Bradycardic with regular rhythm; no gallop, rub audible, no reproducible discomfort with palpation of the left chest. Abdomen: Soft, NTTP, ND, mildly hyperactive BS, no HSM. Extremities: No cyanosis, clubbing, or edema. Neurological: Patient awake, alert, oriented as noted, cognitive function intact; pupils equally reactive to light and accommodation, cranial nerves II-XII grossly normal, moving all 4 extremities, no focal deficits, strength mildlyto moderately global decreased secondary to acute presentation complaints. Psychiatric: Affect appears fatigued otherwise normal, no acute evidence of depressive or anxiety feelings with underlying history. Results Lab / Micro Data 05/05/23 11:15 05/05/23 11:15 Labs: Laboratory Results - last 24 hr 05/05/23 11:15: WBC 6.1, RBC 5.32, Hgb 16.0, Hct 50.3, MCV 94.5 H, MCH 30.1, MCHC 31.8 L, RDW Std Deviation 40.8, RDW Coeff of Namrata 11.9, Plt Count 349, MPV 9.0, Immature Gran % (Auto) 0.700, Neut % (Auto) 67.0, Lymph % (Auto) 16.0 L, Mccreary % (Auto) 13.5 H, Eos % (Auto) 1.8, Baso % (Auto) 1.0, Absolute Neuts (auto)4.1, Absolute Lymphs (auto) 0.98, Nucleated RBC % 0, Sodium 140, Potassium 4.5, Chloride 107, Carbon Dioxide 30.0, Anion Gap 3 L, BUN 18, Creatinine 0.95, EstimCreat Clear Calc 61.85, Est GFR (MDRD) Af Amer 99, Est GFR (MDRD) Non-Af 82, BUN/Creatinine Ratio 19.0, Glucose 100, Calcium 9.5, Troponin I High Sens 8 05/05/23 13:30: Troponin I High Sens 9 Imagaing Radiology Impression Chest X-Ray 05/05/23 11:06 IMPRESSION: Hyperinflation. The lungs are clear. Electronically Signed: Mo Mares MD at 12:07 EST , Assessment & Plan Assessment/Plan (1) Exertional angina: PLAN: Plan The patient is a 77 y/o M w/ PMHx: Anxiety and Depression, Rosacea, CAD s/p CABGx 3, HTN, HLD, Former tobacco use, Chronic bradycardia, BPH, HARLEY on CPAP, GERD who presents to the [facility] ED on 05/05/23 with history of chest tightness and pressure- like sensation with radiation to the left upper extremity with associated dyspnea with an episode occurring approximate 1 week prior coming on suddenly when he was exerting himself and unfortunately has been intermittent since then with primarily again left chest and substernal discomfort with also diaphoresis with history of recent admission 2 weeks prior secondary to new onset atrial fibrillation started on Eliquis at that time prompting eventual ED evaluation. #1. Chest Pain/tightness, exertional dyspnea, anginal equivalent concern: EKG in ED EKG with sinus rhythm with nonspecific changes with no acute evidence of ischemia, CXR w/ hyperinflation with no acute cardiopulmonary findings otherwise, initial trop 8 with repeat delta 9. Will admit to PCU, place on a monitored bed to assure no acute myocardial infarction with serial cardiac enzymes and EKGs. FLP in AM. Magnesium level requested. Will continue cardiology consultation initiated in the ED. Will hold Eliquis at next dose duein case of intervention needs at that time may consider transition to Lovenox versus heparin drip pending cardiology input. ASA, NG, morphine. #2. PAF: Recent admission 2 weeks prior to current presentation for new onset atrial fibrillation, will continue patient home metoprolol, most recent dose of Eliquis this morning, will hold at next dose due pending cardiology evaluation in case of intervention needs and at that time certainly could consider transition to heparin drip versus therapeutic Lovenox. #3. CAD: Status post CABG x 3 05/2019, will continue aspirin, statin, metoprolol, losartan home regimen. #4. Hypertension: Continue home regimen including losartan, metoprolol with hold parameters as needed given bradycardia but currently baseline stable, PRN hydralazine. #5. Hyperlipidemia: Continue home statin regimen. AM FLP. #6. BPH: We will can patient on Flomax regimen. #7. GERD: We will continue patient on PPI. #8. Chronic rosacea: We will continue patient home low-dose doxycycline, uses azelaic acid application also. Follow-up with dermatology as previously arranged. #9. HARLEY: CPAP nightly. #10. Anxiety and depression: We will continue patient home sertraline regimen. #11. DVT prophylaxis: Patient with most recent Eliquis dosing this a.m., will hold pending cardiology evaluation and if appropriate transition to heparin dripversus Lovenox at next dose due. #12. CODE status: Patient REINALDO is his daughter Sammie and living will is currently in place. Discussed CODE status at length including difference betweenFULL code, DNR-CCA and DNR-CC status. Following discussions about the differences in these status, requested Full Code status. Advanced Care Planning Face to Face Time: 16 minutes. Charges/Coding Visit Charges Inpatient E&M: 82556 Init Hosp L3 Procedures Hospitalists Procedures: 92886 Advncd Care Plan 30 Min 05/05/23 1635 <Electronically signed by Sammie Clarke MD> Cosigner Signature (if applicable): CC: Dr. Sammie Clarke MD; Dr. Bella Santos MD~ Signed [facility] Work Phone: 1(225) 254-967501-11-2024 Discharge summary Author Km Cosme [facility] May 05, 2023 2:18pm Note Date/Time May 05, 2023 1 1:13am [facility] Medical Records Department [address] [place] [id number] Emergency Department Summary 05/05/23 MR#: [id number] Acct: [id number] Name: JOCELYN LOAIZA Rep #:[id number] : 1945 77 From: Km Cosme MD PCP: Dr. Bella Santos MD Status:RE G ER Location: ED HPI History of Present Illness Chief Complaint: Chest Pain Detail of Chief Complaint: Tightness pressure with radiation to the left arm andshortness of breath Informant: patient Onset/Context/Timing Onset: Weeks (Episode occurred 1 week ago.) Activity at onset: sudden and exertion Timing: Intermittent and Lasts (He is depending on the amount of exertion) Quality: Positive for Pressure and Tightness Location: Substernal and Left Chest Current Severity: Mild Worsened By: Exertion; Not Worsened By Movement of Arm, Movement of Torso, Eating, Palpation, Breathing or Coughing Relieved By: Rest Associated Symptoms: Positive for Diaphoresis and Dyspnea; Negative for Nausea, Vomiting, Cough, Fever, Lightheadedness, Acid Reflux or Palpitations Narrative Narrative: Is a 77-year-old male with history of hypertension, 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 He is presently on Eliquis. He took 2 aspirin this morning. Patient presents because of a chest pressure tightness mid to left side of his chest with radiation to his left scapular area associated with shortness of breath and diaphoresis. No episode is occurred at rest. Every episode is occurred with activity/exertion. Yesterday he was on the elliptical and developed pain after 15 minutes. He states normally is able to ride elliptical with 30 minutes without difficulty. He did become warm and flushed and may havebeen diaphoretic and did complain of increased shortness of breath. Today he presents after minimal activity with chest tightness/pressure with shortness of breath. Patient denies history of VTE. He denies leg pain, swelling or discoloration. Patient denies PND or orthopnea. Patient has no contradict indication to anticoagulation. Prior Similar Symptoms: No Recent Illness/Hospitalization: Yes (Atrial fibrillation) CVD Risk Factors: Positive for Hypertension, Hypercholesterolemia and Smoking (Quit 1976); Negative for Diabetes or Family History 1' </=55 PE Risk Factors: Negative for Recent Travel/Surgery, Recent Immobilization, Prior DVT or PE, Cancer or OCP + Smoking + >/=35 TAD Risk Factors: Positive for Hypertension; Negative for Marfan's Syndrome or Family History PFSH PFSH Medical History Acne rosacea Atherosclerotic heart disease of t[place] & [place] coronary artery without angina pectoris Dyslipidemia Dyspnea on exertion Former smoker, stopped smoking in distant past Hypertension Kidney stones HARLEY on CPAP Home Medications aspirin 81 mg tablet,delayed release 162 mg PO DAILY@0800 heart health 01/22/14 [History Last Taken 05/31/19] atorvastatin 10 mg tablet 40 mg PO QHS cholesterol 01/22/14 [History Last Taken 05/31/19] acetaminophen 500 mg tablet 500 - 1,000 mg PO Q6H PRN PRN Pain Or Fever 07/05/19[History Last Taken Unknown] sennosides 8.6 mg-docusate sodium 50 mg tablet 1 ea PO BID bowel care 07/05/19 [History Last Taken Unknown] tamsulosin 0.4 mg capsule 0.4 mg PO BID prostate 07/05/19 [History Last Taken Unknown] metoprolol tartrate 25 mg tablet 25 mg PO BID heart 11/27/19 [History Last Taken 11/27/19] omeprazole 20 mg capsule,delayed release 20 mg PO DAILY 03/08/20 [History Last Taken Unknown] azelaic acid 15 % topical gel 1 applic topical BID 09/17/21 [History Last Taken Unknown] doxycycline hyclate 20 mg tablet 20 mg PO BID 09/17/21 [History Last Taken Unknown] losartan 50 mg tablet 50 mg PO DAILY 09/17/21 [History Last Taken Unknown] oxycodone 5 mg tablet 5 mg PO Q6H PRN pain 3 days #12 tabs 06/15/22 [Rx Last Taken Unknown] apixaban 5 mg tablet (Eliquis) 5 mg PO BID #60 tabs 04/23/23 [Rx Last Taken Unknown] Allergy/AdvReac Type Severity Reaction Status Date / Time No Known Allergies Allergy Verified 05/05/23 10:33 Surgical History H/O hernia repair H/O lithotripsy Hx of tonsillectomy S/P triple vessel bypass Social History Smoking Status: Former smoker ROS ROS ED Constitutional Constitutional ED: Denies chills, fever(s), subjective or sweats Eyes Eyes: Reports none ENT ENT ED: Denies ear pain or rhinorrhea Cardiovascular Cardiovascular: Reports as per HPI; Denies orthopnea or paroxysmal nocturnal dyspnea Respiratory/Chest Respiratory/Chest: Reports dyspnea and dyspnea on exertion; Denies cough, orthopnea or paroxysmal nocturnal dyspnea Gastrointestinal Gastrointestinal: Denies abdominal pain, nausea or vomiting Genitourinary Genitourinary ED: Denies dysuria, hematuria or urinary frequency Musculoskeletal Musculoskeletal: Denies arthralgias, back pain or myalgias Integumentary Denies rash Neurologic Neurologic: Denies headache(s) or paresthesias Endocrine Endocrinology: Denies cold intolerance or heat intolerance Hematologic/Lymphatic Hematologic/Lymphatic: Denies easy bleeding or easy bruising EXAM Physical Exam Const Vital Signs: 05/05/23 10:34 05/05/23 11:28 05/05/23 11:28 Temperature 96.8 F L Temperature Source Temporal Pulse Rate 49 L 52 L Respiratory Rate 16 13 Respiratory Effort Blood Pressure 151/79 H Blood Pressure Mean 103 Pulse Ox 98 98 Oxygen Delivery Method Room Air Room Air Room Air 05/05/23 11:28 05/05/23 12:00 05/05/23 13:00 Temperature Temperature Source Pulse Rate 55 L 59 L Respiratory Rate 21 H 19 H Respiratory Effort Normal Blood Pressure 137/81 H 142/79 H Blood Pressure Mean 99 100 Pulse Ox 98 98 Oxygen Delivery Method Room Air Room Air 05/05/23 14:00 Temperature Temperature Source Pulse Rate 48 L Respiratory Rate 18 Respiratory Effort Blood Pressure 143/87 H Blood Pressure Mean 105 Pulse Ox 97 Oxygen Delivery Method Room Air Positive well nourished and well developed General Appearance ED: well developed and NAD HEENT Reports TM's clear and moist mucous membranes HEENT Narrative: Ears are normal. Nares patent. Posterior pharynx is normal. normocephalic and atraumatic Tympanic Membrane ED: Yes TM's clear Eyes PERRL and EOMs intact bilaterally General Eye ED: Negative for pale conjunctiva or scleral icterus Neck no lymphadenopathy, supple and no JVD Chest Wall inspection of chest normal and palpation of chest normal Resp normal respiratory effort and clear to auscultation bilaterally Cardio regular rate, regular rhythm, S1 normal heart sound, S2 normal heart sound and no murmurs Peripheral Pulses: pulses 2+ throughout GI normal to inspection, nondistended, normoactive bowel sounds, soft to palpation,non-tender and non-distended; Negative for hepatosplenomegaly Back/Spine no CVA tenderness Extremity normal to inspection Extremity Narrative: There is no asymmetry, swelling, discoloration, leg vein distention, palpable cords or tenderness along the distribution of the deep venous system. 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 Since patient is still experiencing chest pressure/tightness nitroglycerin was ordered. He took aspirin this morning x 2 as well as Eliquis. Is on the Eliquis because of the newly diagnosed atrial fibrillation. Chest x-ray was obtained to assess mediastinum and lung parenchyma. CBC to assess H&H. BMP to assess renal function. Troponin levels to determine if he had a cardiac ischemic event that was significant since he has had 10 intermittent episodes over the past week. History & Record Review Discussion w/independent historian: Patient Additional record(s) reviewed:: Prior outpatient record (Had a echo without contrast performed May [address] Jay Casillas. Patient had a transthoracic echo performed. The left ventricle was normal in size. Estimated ejection fraction is 55?5%. 2D plain grade 1 left ventricular diastolic dysfunction. Right ventricle is normal in ) Lab Data Attestation: I reviewed the patient's lab results. Lab results narrative: BC is normal. Basic metabolic panel is normal. First troponin is normal. Patient had an outpatient echo. Labs: Laboratory Results - last 24 hr 05/05/23 05/05/23 11:15 13:30 WBC 6.1 RBC 5.32 Hgb 16.0 Hct 50.3 MCV 94.5 H MCH 30.1 MCHC 31.8 L RDW Std Deviation 40.8 RDW Coeff of Namrata 11.9 Plt Count 349 MPV 9.0 Immature Gran % (Auto) 0.700 Neut % (Auto) 67.0 Lymph % (Auto) 16.0 L Mccreary % (Auto) 13.5 H Eos % (Auto) 1.8 Baso % (Auto) 1.0 Absolute Neuts (auto) 4.1 Absolute Lymphs (auto) 0.98 Nucleated RBC % 0 Sodium 140 Potassium 4.5 Chloride 107 Carbon Dioxide 30.0 Anion Gap 3 L BUN 18 Creatinine 0.95 Estim Creat Clear Calc 61.85 Est GFR (MDRD) Af Amer 99 Est GFR (MDRD) Non-Af 82 BUN/Creatinine Ratio 19.0 Glucose 100 Calcium 9.5 Troponin I High Sens 8 9 Radiography Diagnostic Testing: Clinical Impression(s) from Imaging Studies Chest X-Ray 05/05/23 11:06 IMPRESSION: Hyperinflation. The lungs are clear. Electronically Signed: Mo Mares MD at 12:07 EST , Management Discussion w/another healthcare provider: Hospitalist and Nurse Ob (To Dr. Archie Sanders regarding patient's history, presentation and concern for coronary disease, classic exertional angina. Agrees with admission to hospitalist and cory see in consultation.) Discharge Plan Triage Chief Complaint: Chest Pain ED Provider: Km Cosme Dx/Rx/DC Orders Clinical Impression: Exertional angina, Hypertension, CAD (coronary artery disease), Hyperlipidemia,Bradycardia Prescriptions: No Action atorvastatin 10 MG tablet 40 mg PO QHS aspirin 81 MG tablet 162 mg PO DAILY@0800 sennosides-docusate sodium 1 EACH tablet 1 ea PO BID acetaminophen 500 MG tablet 500 - 1,000 mg PO Q6H PRN PRN (Reason: Pain Or Fever) tamsulosin 0.4 MG capsule 0.4 mg PO BID metoprolol tartrate 25 MG tablet 25 mg PO BID omeprazole 20 MG capsule 20 mg PO DAILY losartan 50 mg tablet 50 mg PO DAILY Patient Comments: Take 1 tablet by mouth once daily. doxycycline hyclate 20 mg tablet 20 mg PO BID azelaic acid 15 % gel 1 applic TOPICAL BID Rx Instructions: apply to face oxycodone 5 mg tablet 5 mg PO Q6H PRN (Reason: pain) 3 Days Qty: 12 0RF Eliquis 5 mg tablet 5 mg PO BID Qty: 60 0RF Primary Care Provider: Bella Santos Referrals: Bella Santos MD [Primary Care Provider] - Disposition Disposition: Acute Care Hospital [facility] What to do if you have Problems For any increased pain, shortness of breath, bleeding, nausea or vomiting, chestpain, or any unexpected problems, contact your Primary Care Provider. Call [facility] ([phone]) or report to the closest Emergency Room. Call 911 if necessary. 05/05/23 1418 <Electronically signed by Km Cosme MD> Cosigner Signature (if applicable): CC: Dr. Bella Santos MD ~ Signed [facility] Work Phone: [phone]) 239-805507-18-2023 History of Present illness Narrative* Bella Santos MD - 11/09/2022 9:20 AM EDT Chief Complaint Patient presents with: F/U 6 Month HPI Jocelyn Loaiza is a 77 year old male [...] since he takes other medications. Following with Urology,Dr. Shaffer. Taking Flomax 0.4 mg BID. Family hx of thyroid cancer, leukemia, and prostate cancer. GERD: Stable without use of medication. Previously given Prilosec 20 mg. HTN & Tachycardia: Taking Losartan 100 mg daily and Lopressor 50 mg BID. Checking BP at home, stating this has improved considerably. Average over the past month was 123/77, past 6 months 129/75.Denies any chest pain or sob. Reports intermittent episodes of lightheadedness. States this feels like a low blood sugar type symptom, will feel hungry when this occurs. Lipid/CAD/Glucose: Has lost 20 lbs since June, with a Program called [employer]. He's counting calories.The Program is nutritional based. Exercises by working out 3 days a week at they gym, some home exercises and hiking. Taking Crestor 40 mg daily, tolerating well. Pt follows with Cardio. HARLEY: Uses nightly Bipap, does well with this. Most days feels he's rested. Receives DME supplies through [employer]. Derm - Taking Doxycycline 20 mg bid and Gel for rosacea. Pt reports that lately he's been having increased irritability and feeling sad, noting its been thesame over a period of time. Unsure if this is really depression or just everything going on with his and her ongoing health problems. Pt at this time would like to hold off on medication, but ifit gets worse he will update office. Still [...] artery disease involving 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 - ICD9: 414.05, [...] Past Histories independently gathered by the clinical customer support technician and the remaining scribed note accurately describes my personal service to the patient. Medical Decision Making: Problems: Moderate: 2+ stable chronic illnesses Data: Unique test result(s) reviewed: 3+ Unique test(s) ordered: 3+ Risk: Moderate: Drug management Medical Decision Making Level: 4 - Moderate Bella Santos MD The documentation for this note was completed by Jocelyn Kee Ma acting as scribe for Bella Santos MD. November 09, 2022 9:32 AM. Jocelyn Kee Ma [facility] Instructions* Patient Instructions* Bella Santos MD - 10/22/2022 11:23 AM EDT Images from the original note were not included. FACT SHEET FOR PATIENTS, PARENTS, AND CAREGIVERS EMERGENCY USE AUTHORIZATION (EUA) OF PAXLOVID FOR CORONAVIRUS DISEASE 2019 (COVID-19) You are being given this Fact Sheet because your healthcare provider believes it is necessary to provide you with PAXLOVID for the treatment of azas-pf-znfamiyh coronavirus disease (COVID-19) caused by the SARS-CoV-2 virus. This Fact Sheet contains information to help you understand the risks and benefits of taking the PAXLOVID you have received or may receive. The U.S. Food and Drug Administration (FDA) has issued an Emergency Use Authorization (EUA) to makePAXLOVID available during the COVID-19 pandemic (for more details about an EUA please see What is an Emergency Use Authorization? at the end of this document). PAXLOVID is not an FDA-approved medicine in the [place]. Read this Fact Sheet for information about PAXLOVID. Talk to your healthcareprovider about your options or if you have any questions. It is your choice to take PAXLOVID. What is COVID-19? COVID-19 is caused by a virus called a coronavirus. You can get COVID-19 through close contact withanother person who has the virus. COVID-19 illnesses have ranged from very rcfr-ts-uzdors, including illness resulting in . While information so far suggests that most COVID-19 illness is mild, serious illness can happen and maycause some of your other medical conditions to become worse. Older people and people of all ages with severe, long lasting (chronic) medical conditions like heart disease, lung disease, and diabetes,for example seem to be at higher risk of being hospitalized for COVID-19. What is PAXLOVID? PAXLOVID is an investigational medicine used to treat adults and children [12 years of age and older weighing at least 88 pounds (40 kg)] with a current diagnosis of qkgh-vl-uetfewlt COVID-19 and whoare at high risk for progression to severe COVID-19, including hospitalization or . PAXLOVID is investigational because it is still being studied. There is limited information about the safety and effectiveness of using PAXLOVID to treat people with gkzs-bc-scegesyk COVID-19. The FDA has authorized the emergency use of PAXLOVID for the treatment of tkqk-cj-woduenly COVID-19in adults and children [12 years of age and older weighing at least 88 pounds (40 kg)] with a current diagnosis of mgbd-la-gridbvnc COVID-19 and who are at high risk [...] the merdicines you take, including prescription and kixy-nwl-mxvemnk medicines, vitamins, and herbal supplements. Your healthcare [...] you have any questions about contraceptive methods thatmight be right for you. How do I [...] Morning or Evening, depending on when you pickling tank operator your prescription, or as recommended by your [...] missed dose and take the next dose atyour regular time. Do not take 2 doses [...] (remdesivir) is FDA-approved for the treatment of otom-et-cssyoabe COVID-19 in certain adults and children. Talk with your doctor to see if Veklury is appropriate for you. Like PAXLOVID, FDA may also allow for the emergency use of other medicines to treat people with COVID-19. Go to https://www.fda.gov/gggcnbbtr-gmhzalsfvqhw-qca-response/gfb-qtckz-foqukwpvcb-and -policy-framework/wguxeaymh-qxl-cwsypinotszue for information on the emergency use of [...] if I am or ? There is research home economist treating women or mothers with PAXLOVID. For a motherand unborn baby, the benefit of taking PAXLOVID may be greater than the risk from the treatment. Ifyou are , discuss your options and specific situation with your healthcare provider. It is recommended that you use effective barrier contraception or do not have sexual activity whiletaking PAXLOVID. If you are , discuss your [...] for examples of PAXLOVID Dose Packs) to FDA MedWatch at www.fda.gov/medwatch or call 5-610-JQL3655 or you can report side effects to [employer]. at the contact information provided below. Website Fax number Telephone number [email or web address] How should I store PAXLOVID? Store PAXLOVID [...] (EUA). The EUA is supported by a [employer] M[employer] of Health and Human Service ([facility]) declaration that circumstances exist to justify the emergency use of drugs and biological productsduring the COVID-19 pandemic. PAXLOVID for the treatment of uetx-oq-hclvgyaq COVID-19 in adults and children [12 years of age andolder weighing at least 88 pounds (40 kg)] who are at high risk for progression to severe COVID-19,including hospitalization or , has not undergone the same type of review as an FDA-approved product. In issuing an EUA under the COVID-19 public health emergency, the FDA has determined, among ot her things, that based on the total amount [...] telephone number provided below. Website Telephone number [email or web address] ([email or web address]) You can also go to [email or web address] or call for more information. Pfizer Distributed by [employer] [place] [address] [id number] Revised: 05/2022 documented in this encounterMansfield Hospital06-30-2023 History of Present illness Narrative* Bella Santos MD - 10/22/2022 11:20 AM EDT Chief Complaint Patient presents with: Covid Positive HPI:This Team Access Model visit is a virtual encounter. It required patient- provider interaction for the medical decision making as [...] licensure. The patient's identity and physical location wereverified at the time of this visit. Either the patient or their legal personal financial representative has been informed of the risks and benefits of -- and alternatives to -- treatment through a remote evaluation andconsents to proceed with the evaluation remotely. Pt completing a virtual visit today due to positive home covid test on 10/21/22. Pt was out of town on 10/15/22-10/18/22 in [place] at his niece's wedding. He believes this is where he contracted this. Symptoms started on 10/19/22 in the afternoon. Pt currently has symptomsof stuffy runny nose, cough, body aches, skin [...] MG TABLET,DOSE PACK Follow up prn Bella Santos MD * Bella Santos MD - 10/22/2022 11:20 AM EDT Nirmatrelvir/Ritonavir (Paxlovid) Eligibility and Patient Discussion [facility] Formulary Restriction Criteria: Adult outpatients 18 years [...] reported. The discussion included alternatives to receiving nirmatrelvir/rit onavir, including clinical trials, and potential the risks and benefits of those alternatives. The patient was provided electronically with the Fact Sheet for Patients, Parents and Caregivers. The patient was also instructed that in addition to the treatment with nirmatrelvir/ritonavir, he/she should continue to self-isolate and use infection control measures (e.g., wear mask, isolate, social distance, avoid sharing personal items, clean and disinfect high touch surfaces, and frequent h andwashing) according to CDC guidelines. The patient stated understanding and gave verbal consent to proceeding with nirmatrelvir/ritonavir treatment. eBlla Santos MD October 22, 2022 11:37 AM documented in this encounterMansfield Hospital06-30-2023 Miscellaneous Notes* Telephone Encounter - Jocelyn Kee Ma - 10/22/2022 10:38 AM EDT Called home phone and spoke with pt who was agreeable to appt. Pt scheduled, reviewed chart. Jocelyn Kee Ma * Telephone Encounter - Jocelyn Kee Ma - 10/22/2022 9:28 AM EDT Call to pt received identifiable VM. LM on VM notifying pt we received his [employer] message and haveoffered a same day VV at 11:20 am with PCP, spot held. Pt made aware that [employer] message sent to him. Asked pt to call office and speak with FM Triage Nurse or respond back via [employer] if this appt time works for him. Jocelyn Kee Ma * Telephone Encounter - Jocelyn Kee Ma - 10/22/2022 7:51 AM EDT Offered pt VV with PCP at 11:20 to discuss Paxlovid. Wait pt response. Jocelyn Kee Ma documented in this encounterMansfield Hospital06-05-2023 Discharge summary Author Jaswinder Pan [facility] September 27, 2022 10:46am Note Date/Time September 27, 2022 10:46 am [facility] Physical Therapy [facility] [address] [place] [address] [address] [place] [address] / REHABILITATION SERVICES DISCHARGE SUMMARY MR#: [id number] Acct: [id number] Name: JOCELYN LOAIZA Rep #: [id number] : 1945 77 From: Jaswinder Shannon Referring Dr.: Dr. Gallo Toro MD Status: REG RCR Insurance: [employer] [facility] SELF PAY INSURANCE It has been my pleasure to treat JOCELYN LOAIZA referred by Dr. Gallo Toro MD, with the diagnosis of R knee pain, R knee OA for a total of 4 visit(s). Discharge Date: Please see the following information for a summary of their discharge status. Subjective: Pt. reports ~2 weeks ago falling while he was doing his laundry. During the this time he felt a pop in his knee when he twisted his R knee. pt. reports 2/10 pain coming in today. Pt. did have an MRI showing a complex medial meniscus tear. He has been off it for a little bit now, but has been feeling a little bit better over the past few days. R knee Pain Intensity (Out of 10): 2 Objective/Function: ROM: R knee: 0-4-125deg. slight pain limiting end ranges of motion. Normal hip ROM, slight tightness in B HS. MMT: LLE: ankle 5/5 throughout; knee: ext 47.9#, flexion 35.2#. hip: 5-/5 throughout. RLE: ankle 5/5 throughout; knee: ext 31.1#, flexion 23.3#. hip: 5-/5 throughout. gait: pt. hasslight increase in symptoms to 2/10 in R medial knee with walking. Slight early off loading during end of stance phase on R side. STAIRS: reciprocal pattern, slight early off during R stance phase with descending. Pt. is overall doing a bit better than a few weeks ago. I talked to him about not over doing it with his hiking, but easing into activities. I gave him some hip strengthening exercises and HS stretching. He does lack TKE on R side, he is to work on this as well. He wants to get back to hiking. He reports hiking [employer]. I wanthim to stay on the paved trails for now, and slowly ease into trail hiking. Pt. consents. He had been doing the stair stepper at the gym, I suggested mid range biking or more of a standard elliptical, but only if not painful. Pt. consents. Goal 1:: LTG: Pt. to be I with HEP for home and gym. Goal Progress: Progressing Goal 2:: STG: Pt. to be have full knee extension on R knee with out increase in symptoms. Goal Progress: Progressing Goal 3:: LTG: pt. to have increased RLE strength to 5/5 throughout knee and hip. Goal Progress: Progressing Goal 4:: LTG: Pt. to complete all gym exercises without increase in symptoms. Goal Progress: Progressing Goal 5:: LTG: pt. to be able to hike without increase in R knee pain. Goal Progress: Progressing Plan: Pt. desires to trial the exercises given to hip today independently and check in with PT in 2-3 weeks if needed. I want him easing into his activities with hiking. pt. consents. If there are questions or concerns regarding this patient's physical therapy, please feel free to call me at [phone]. Thank you for the referral of thispatient. Sincerely, Jaswinder Pan, DPT Balance/Gait/Functional tests - Balance/Special Test Scores Lower Extremity Functional Score: 40 <Electronically signed by Jaswinder Pan DPT> 09/27/22 1046 CC: Dr. Bella Santos MD; Dr. Gallo Toro MD ~ CLS Signed [facility] Work Phone: 1(705) 814-733005-01-2023 Miscellaneous Notes* Telephone Encounter - Magen Gilman APRN.CNP - 08/23/2022 9:09 AM EDT The following approved medication requests have been transmitted electronically. Requested Prescriptions Pending Prescriptions Disp Refills metoprolol tartrate, short acting, (LOPRESSOR) 50 mg tablet 180 tablet 3 Sig: Take 1 tablet by mouth q 12 HR. Magen Gilman APRN.CNP * Telephone Encounter - Kimi Oscar LPN - 08/23/2022 8:43 AM EDT Patient phones requesting refills as follows: Requested Prescriptions Pending Prescriptions Disp Refills metoprolol tartrate, short acting, (LOPRESSOR) 50 mg tablet 180 tablet 3 Sig: Take 1 tablet by mouth q 12 HR. MEGGAN-05/06/22 Labs-05/04/22 NOV-11/09/22 med filled 08/25/21 Please review and advise. Kimi Oscar LPN documented in this encounterMansfield Hospital02-21-[address] Peña [facility] June 15, 2022 10:57pm Note Date/Time June 15, 2022 10:01pm [facility] Medical Records Department [address] [place] [address] Emergency Department Summary 06/15/22 MR#: [id number] Acct: [id number] Name: JOCELYN LOAIZA Rep #:[id number] : 1945 76 From: Domingo Peña MD PCP: Dr. Bella Santos MD Status:RE G ER Location: ED HPI History of Present Illness Chief Complaint: Lower Extremity Injury Narrative Narrative: 76-year-old male past medical history of osteoarthritis of the knee, states he was diagnosed with this by his orthopedic surgeon, Dr. Gallo Toro, few weeks ago. He has been doing physical therapy, but tonight, when he was straighteningup around the house, he twisted his right knee, and fell onto the loveseat. He did not hit his head or lose consciousness, but his knee twisted and he felt a pop. He now has diffuse right knee pain and pain with standing and walking/movement of his right knee. He denies other injury. No hitting of his head or loss of consciousness. He was brought here by a friend because he is having more pain diffusely throughout his right knee. [facility] Medical History Acne rosacea Atherosclerotic heart disease of tlingit & ha[place] coronary artery without angina pectoris Dyslipidemia Dyspnea on exertion Former smoker, stopped smoking in distant past Hypertension Kidney stones HARLEY on CPAP Home Medications aspirin 81 mg tablet,delayed release 162 mg PO DAILY@0800 heart health 01/22/14 [History Last Taken 05/31/19] atorvastatin 10 mg tablet 40 mg PO QHS cholesterol 01/22/14 [History Last Taken 05/31/19] acetaminophen 500 mg tablet 500 - 1,000 mg PO Q6H PRN PRN Pain Or Fever 07/05/19[History Last Taken Unknown] sennosides 8.6 mg-docusate sodium 50 mg tablet 1 ea PO BID bowel care 07/05/19 [History Last Taken Unknown] tamsulosin 0.4 mg capsule 0.4 mg PO BID prostate 07/05/19 [History Last Taken Unknown] metoprolol tartrate 25 mg tablet 25 mg PO BID heart 11/27/19 [History Last Taken 11/27/19] omeprazole 20 mg capsule,delayed release 20 mg PO DAILY 03/08/20 [History Last Taken Unknown] azelaic acid 15 % topical gel 1 applic topical BID 09/17/21 [History Last Taken Unknown] doxycycline hyclate 20 mg tablet 20 mg PO BID 09/17/21 [History Last Taken Unknown] losartan 50 mg tablet 50 mg PO DAILY 09/17/21 [History Last Taken Unknown] oxycodone 5 mg tablet 5 mg PO Q6H PRN pain 3 days #12 tabs 06/15/22 [Rx Last Taken Unknown] Allergy/AdvReac Type Severity Reaction Status Date / Time No Known Allergies Allergy Verified 06/15/22 21:42 Surgical History H/O hernia repair H/O lithotripsy Hx of tonsillectomy S/P triple vessel bypass Social History Smoking Status: Former smoker ROS ROS ED ROS Narrative Constitutional: No fever, no chills. HEENT: No sore throat. No neck pain. No loss of vision. No rhinorrhea. Cardiovascular: No chest pain. No palpitations. No pedal edema. Respiratory: No cough, no shortness of breath. Abdominal: No abdominal pain. No nausea. No vomiting. Genitourinary: No dysuria. No hematuria. Musculoskeletal: No myalgias. Right knee pain worse with movement, and after twisting. Neurologic: No headaches. No dizziness. No lightheadedness. Skin: No rash. No change in color. Psychiatric: No depression. No anxiety. EXAM Physical Exam Narrative Exam Narrative: Afebrile. Vital signs noted. HEENT: Normocephalic. Atraumatic. PERRL, EOMI. Neck soft and supple. No pointtenderness or step off. Cardiovascular: Regular rate and rhythm. No murmurs, rubs, or gallops appreciated. Respiratory: No tachypnea. Lungs clear to auscultation bilaterally. Gastrointestinal: Abdomen soft, nontender, with normoactive bowel sounds. No rebound or guarding. Neurological: Awake. Alert. Nonfocal, nonlateralizing. Skin: No rash. Normal color. No pallor. Musculoskeletal: No pedal edema. Diffuse tenderness to palpation right knee along the medial and lateral meniscal lines and over collateral ligaments. No overt swelling. Flexion and extension mechanism intact. Able to lift leg off bed partially. Neurovascularly intact distally with palpable dorsalis pedis pulse. EHL intact on right as tested. Const Vital Signs: 06/15/22 21:40 Temperature 97.8 F Temperature Source Temporal Pulse Rate 62 Respiratory Rate 16 Blood Pressure 173/83 H Blood Pressure Mean 113 Pulse Ox 98 Oxygen Delivery Method Room Air MDM MDM MDM Narrative Medical decision making narrative: I do feel that the patient probably has more of a knee sprain versus internal derangement/possible meniscal tear. X-rays were obtained of the right knee and 4 views and interpreted by myself. My interpretation shows no evidence of fracture, but there is a suprapatellar joint effusion. I reviewed the radiologyreport which confirms my interpretation. He will be placed in a knee immobilizer and given crutches. He will continue acetaminophen as needed for pain. Additionally, he required oxycodone here in the emergency department and a prescription written to take as needed over the next 3 days. He states he only takes them and already takes extra strength Tylenol hence I wrote him for straight oxycodone. He was told of the risk of nausea, vomiting, drowsiness, constipation, and addiction and acknowledges an understanding. He will follow-up with orthopedics, Dr. Gallo Toro in 7 to 10 days. I feel he can be discharged safely home with follow-up. Return instructions to the emergency department were reviewed. Disposition is discharged home in stable condition. Radiography Diagnostic Testing: Clinical Impression(s) from Imaging Studies Knee X-Ray 06/15/22 22:10 IMPRESSION: 1. No acute or healing fracture or malalignment. 2. Small to moderate suprapatellar joint effusion. Electronically Signed: Antwan Andrews MD at 22:28 EST , Discharge Plan Triage Chief Complaint: Lower Extremity Injury ED Provider: Domingo Peña Dx/Rx/DC Orders Clinical Impression: Right knee sprain, Internal derangement of knee Instructions: Opioid Use Risks, ED Meniscal Injury Knee Poss, ED Knee Sprain Prescriptions: New oxycodone 5 mg tablet 5 mg PO Q6H PRN (Reason: pain) 3 Days Qty: 12 0RF No Action atorvastatin 10 MG tablet 40 mg PO QHS aspirin 81 MG tablet 162 mg PO DAILY@0800 sennosides-docusate sodium 1 EACH tablet 1 ea PO BID acetaminophen 500 MG tablet 500 - 1,000 mg PO Q6H PRN PRN (Reason: Pain Or Fever) tamsulosin 0.4 MG capsule 0.4 mg PO BID metoprolol tartrate 25 MG tablet 25 mg PO BID omeprazole 20 MG capsule 20 mg PO DAILY losartan 50 mg tablet 50 mg PO DAILY Label Comments: Take 1 tablet by mouth once daily. doxycycline hyclate 20 mg tablet 20 mg PO BID azelaic acid 15 % gel 1 applic TOPICAL BID Rx Instructions: apply to face Primary Care Provider: Bella Santos Referrals: Bella Santos MD [Primary Care Provider] - Gallo Toro MD [Med Staff - Active Staff] - 1 Week if not improving Disposition Disposition: Home, Self Care What to do if you have Problems For any increased pain, shortness of breath, bleeding, nausea or vomiting, chestpain, or any unexpected problems, contact your Primary Care Provider. Call [facility] ([phone]) or report to the closest Emergency Room. Call 911 if necessary. 06/15/22 6307 <Electronically signed by Domingo Peña MD> Cosigner Signature (if applicable): CC: Dr. Bella Santos MD; Dr. Gallo Toro MD ~ Signed [facility] Work Phone: [phone]) 180-350702-09-2023 History of Present illness Narrative* Ailin Gunn LPN - 06/03/2022 12:[address] Child, Jocelyn was provided with powerstep original inserts, size 11, and instructed/educated in its application, wear, and care. All questions were answered, and patient was able to demonstrate competence with the necessary skills to utilize the above equipment. Ailin Gunn LPN * Marly Mateusz - 06/03/2022 11:55 AM EST Images from the original note were not included. Initial Podiatric Office Visit: Chief Complaint: This 76 year old male who presents with chief complaint:painful toenails HPI Patient presents to clinic for evaluation of b/l feet. He has thick mycotic toenails that cause himpain with cutting. He is here to discuss [...] 5.6 05/05/2021 5.8 06/02/2019 5.2 PCP: Bella Santos MD PAST MEDICAL HISTORY Diagnosis Date Dyslipidemia [...] 1 capsule by mouth daily before breakfast. 2 hr before meal. sennosides/docusate sodium (COLACE 2-IN-1 [...] clean and dry 1-4 b/l. Skin appears wellhydrated and supple. good color, texture, turgor. No [...] orthotics. Patient will try powerstep inserts. Marly Child DPM Podiatry [address] [facility] [address] Dept: [phone] Dept * Ailin Gunn LPN - 06/03/2022 11:39 AM EST AMB ROOMING INTAKE FLOWSHEET DATA Pain Pain [...] feet. Ailin Gunn LPN documented in this encounterMansfield Hospital02-09-2023 Instructions* Patient Instructions* Marly Child - 06/03/2022 12:03 PM EST Powerstep Original Full length. Can purchase at [employer] here in [place], [employer] in [place] or [place]. Also can find in [place] in [facility]. Powersteps can also be purchased online, [...] everything fits well together documented in this encounterMansfield Hospital01-30-2023 Miscellaneous Notes* Telephone Encounter - Estella Garcia LPN - 05/24/2022 12:17 PM EST Patient's request for medication is as follows: Requested Prescriptions Pending Prescriptions Disp Refills rosuvastatin (CRESTOR) 40 mg tablet 90 tablet 3 Sig: Take 1 tablet by mouth daily at bedtime. Last seen 03/15/2022. Follow up scheduled for 10/25/2022. Prescription(s) as above. Please process accordingly. Estella Garcia LPN documented in this encounterMansfield Hospital01-23-2023 Miscellaneous Notes* Telephone Encounter - Jocelyn Kee Ma - 05/17/2022 6:18 PM EST Pt sent mychart message notifying him that Ortho referral has been placed. Notified pt to contact office to schedule an appt. Jocelyn Kee Ma * Telephone Encounter - Bella Santos MD - 05/17/2022 6:08 PM EST I would suggest an Ortho consult; order filed Bella Santos MD * Telephone Encounter - Jocelyn Kee Ma - 05/17/2022 2:51 PM EST See pt message. Pt seen on 05/06/22 with evaluation done. Jocelyn Kee Ma documented in this encounterMansfield Hospital01-18-2023 Miscellaneous Notes* Telephone Encounter - Yumiko Donaldson RN - 05/12/2022 4:38 PM EST Returned patient's call. He had received a phone call earlier to reschedule his appointment that was in May. Transferred patient to schedulers to reschedule appointment. * Telephone Encounter - Chela Gomez LPN - 05/12/2022 4:13 PM EST Patient called. Verified name and date of . Patient returning call to [facility] and would like to get surgery scheduled. Mobile number is preferred contact number. Chela Gomez LPN documented in this encounterMansfield Hospital01-12-2023 History of Present illness Narrative* Bella Santos MD - 05/06/2022 9:20 AM EST Chief Complaint Patient presents with: F/U 6 Month HPI Jocelyn Loaiza is a 76 year old male who presents here today for 6 month follow up. Family hx of thyroid cancer, leukemia, and prostate cancer. Notes ongoing stress in his life due tohis and her medical issues. She's currently working [...] since previous OV. Follows with Cardio, Dr. Agarwal. Pt checking BP at home with BP [...] him. Even when driving or watching TV ifbent the right way. At times his pain is a 5-6/10. Had a recent massage which has seemed to help it, but wanted to make mention of this today. HM - Declines Hep C. Declines Flu shot. Will get bivalent Moderna vaccine. Has Adv Dir/Living Will.Declines depression. Past medical history, appointments, medications, allergies [...] artery disease involving 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 - ICD9: 414.05, [...] Past Histories independently gathered by the clinical customer support technician and the remaining scribed note accurately describes my personal service to the patient. Medical Decision Making: Problems: Low: Acute, uncomplicated illness or injury Moderate: 2+ stable chronic illnesses Data: Unique test result(s) reviewed: 3+ Risk: Moderate: Drug management Medical Decision Making Level: 4 - Moderate Bella Santos MD The documentation for this note was completed by Jocelyn Kee Ma acting as scribe for Bella Santos MD. May 06, 2022 9:33 AM. Jocelyn Kee Ma documented in this encounterMansfield Hospital12-22-2022 History of Present illness Narrative* Bella Santos MD - 04/15/2022 10:40 AM EST Chief Complaint Patient presents with: Palpitations: Increased heart rate HPI Jocelyn Loaiza is a 76 year old male who presents here today for a same day visit. Pt scheduled for a same day visit. Pt spoke with triage and reported increased heart rate in the 80's and 90's x 1 day. Pt's normal is60 - 70's. Also states this monitor picked up irregularity. Feels like his HR is fast and is havingpalpitation. He denies any chest pain, discomfort, difficulty breathing, pain down left arm or neckpain. Symptoms started after having anxiety over doing a reading in [employer] last night. He has felt more stressed recently also. Pt follows with Cardiology, Dr. Agarwal and was last seen on 03/15/22. Most recent EKG on 03/15/22.Pt had cardiac testing in 2019, 2020 and [...] BP Cuff Size: Regular Adult) Pulse 82 Resp16 Wt 80.1 kg (176 lb 9.6 oz) [...] Decision Making Level: 3 - Low Bella Santos MD documented in this encounterMansfield Hospital12-22-2022 Miscellaneous Notes* Telephone Encounter - Bella Santos MD - 04/15/2022 10:14 AM EST OK for appt today Bella Santos MD * Telephone Encounter - Bouchra Cabrera LPN - 04/15/2022 9:20 AM EST Pt called in and reports a rapid heart rate 80's and 90's x 1 day. Normal for him is 60's to 70's. Pt denies chest pain, chest discomfort, difficulty breathing, pain down left arm, neck pain. Pt scheduled for apt today. Bouchra Cabrera LPN documented in this encounterMansfield Hospital11-21-2022 History of Present illness Narrative* Drake Agarwal MD - 03/15/2022 3:40 PM EST Images from the original note were not included. [facility] SE[facility] OF REGIONAL CARDIOLOGY Cardiology ([facility]) [address] [facility] [id number] OUTPATIENT VISIT DATE 03/15/2022 PRIMARY CARE PHYSICIAN: Bella Santos [address] [place] [address] HISTORY OF PRESENT ILLNESS: Mr. Loaiza is a 76 year old gentleman with a history of coronary artery disease prior coronary bypass grafting (May 2019), hypertension, and dyslipidemia who presents for routine follow-up. He has been under increased stress. His has been in the group home for the past 1 year due to history of CVA symptom control diabetes. He continues to exercise 3 to 4 days a week. He walks on a [place] and tries to maintain a heart rate [...] no apparent distress. He is alert and orientedx3 HEENT: Carotid upstrokes are brisk bilaterally without bruits no JVD appreciated. Pulmonary: Lungs are clear no rales, wheezes, rhonchi Cardiovascular: Normal S1, S2 with regular rate and rhythm. No murmurs, rubs, or gallops Extremities: Warm, well-perfused, no lower extremity edema. 2+ distal pulses CARDIOVASCULAR MEDICINE TESTING: Cardiac Catheterization [place] 06/05/2019: POST PROCEDURE DIAGNOSIS: [place] Coronary Artery Disease in the LAD (Severe) 99% proximal, RCA (UI SOFTWARE DEVELOPER) and LCX (UI SOFTWARE DEVELOPER) Normal carotid arteries Echocardiogram 06/05/2019 CONCLUSIONS: - [...] artery disease involving 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 - ICD9: 414.05, [...] exertion - ICD9: 786.09, ICD10: R06.09 Drake Agarwal MD documented in this encounterMansfield Hospital07-18-2022 Miscellaneous Notes* Telephone Encounter - Beulah Villagran RN - 11/09/2021 8:46 AM EDT I sent the remaining balances on the 08/31/21 prescriptions to [facility]. Pt has an upcoming OV 03/15/22. Beulah Villagran RN documented in this encounterMansfield Hospital07-12-2022 History of Present illness Narrative* Bella Santos MD - 11/03/2021 9:20 AM EDT Chief Complaint Patient presents with: 6 Month Exam HPI Jocelyn Loaiza is a 76 year old male who presents here today for a 6 month follow up. He does have an advanced directive. He has had 3 Covid vaccine. Denies any stomach, bowel or urinary issues. Takes Senna prn. On current regimen of Flomax 0.4 mg bid. Follows with Urology, Dr. Shaffer at [facility]. Brother has prostate cancer, going through radiation therapy. Family hx of thyroid cancer, leukemia, and prostate cancer. GERD: doing well, has not been taking Prilosec 20 mg daily. Tinnitus: Both ears. HTN: Elevated BP with multiple messages in changing his regimen. Pt wrote into the office on 09/17/21 and called into the office with chest pain. Pt went to [facility] ED, no issues found with his heart. Notes sob at that time. Pt follows with Dr. Agarwal in Cardio, seen on 08/31/21. Pt on current regimen ofLosartan 50 mg once daily and Lopressor 50 [...] states i'm living a lot in my head. Denies any SI/HI. He states his is still in [employer], unsure if shewill be able to come home. States she is very inconsistent, she is doing therapy and he helps assist. She needs a lot of assistance ambulating. He is also in process of trying to down size and sell their home. He states those are his major stressors. Lipids/CAD: Tries to watch diet but admits he has not been very successful lately. He does exerciseat [employer] 3 days per week and goes hiking. [...] murmur, gallop, or rubs. No ectopy. Extremities: abdulaziz shoulders, no pain on palpation, some decreased [...] artery disease involving 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 - ICD9: 414.05, ICD10: I25.810 Continue current medications. Continue with Cardio 3. Other hyperlipidemia - ICD9: 272.4, ICD10: E78.49 Continue current medications. 4. Shoulder crepitation Monitor; symptomatic treatment Follow up in 6 months with fasting labs prior. I agree with the Chief Complaint, ROS, and Past Histories independently gathered by the clinical customer support technician and the remaining scribed note accurately describes my personal service to the patient. Medical Decision Making: Problems: Moderate: 2+ stable chronic illnesses Data: Unique test result(s) reviewed: 3+ Unique test(s) ordered: 3+ Risk: Moderate: Drug management Medical Decision Making Level: 4 - Moderate Bella Santos MD The documentation for this note was completed by Kenzie Prasad Ma acting as scribe for Bella Santos MD. November 03, 2021 9:15 AM. Kenzie Prasad Ma [facility] Miscellaneous Notes* Telephone Encounter - Bella Santos MD - 09/17/2021 4:33 PM EDT Noted and agree with advice given Bella Santos MD * Telephone Encounter - Patty Rivero RN - 09/17/2021 3:17 PM EDT Patient call in for chest pain since [...] Some shortness of breath Protocols used: CHEST QOME-BECVV-TO documented in this encounterM[facility]05-26-2022 Miscellaneous Notes* Telephone Encounter - Patty Rivero RN - 09/17/2021 3:21 PM EDT See Nurse Triage note documented in this encounterM[facility] Hospital05-25-2022 Miscellaneous Notes* Telephone Encounter - Jocelyn Kee Ma - 09/16/2021 12:51 PM EDT Please see pt message and advise. Jocelyn Kee Ma documented in this [facility]05-09-2022 Instructions* Patient Instructions* Drake Agarwal MD - 08/31/2021 10:27 AM EDT We are changing the Lisinopril to Losartan 50 mg once per day We are changing the Lipitor to Crestor 40 mg once per day Repeat fasting blood work in 3-4 months documented in this [facility]05-09-2022 History of Present illness Narrative* Drake Agarwal MD - 08/31/2021 10:00 AM EDT Images from the original note were not included. [facility] Cardiology (Bina Kunzwmonroe Walsh) [address] [facility] [id number] OUTPATIENT VISIT DATE 08/31/2021 PRIMARY CARE PHYSICIAN: Bella Santos [address] [place] [address] HISTORY OF PRESENT ILLNESS: Mr. Loaiza is [...] stroke late last year and is currently goingthrough rehabilitation. He has been taking his blood [...] no apparent distress. He is alert and orientedx3 HEENT: Carotid upstrokes are brisk bilaterally without bruits no JVD appreciated. Pulmonary: Lungs are clear no rales, wheezes, rhonchi Cardiovascular: Normal S1, S2 with regular rate and rhythm. No murmurs, rubs, or gallops Extremities: Warm, well-perfused, no lower extremity edema. 2+ distal pulses CARDIOVASCULAR MEDICINE TESTING: Cardiac Catheterization [facility] 06/05/2019: POST PROCEDURE DIAGNOSIS: 1. [place] Coronary Artery Disease in the LAD (Severe) 99% proximal, RCA (UI SOFTWARE DEVELOPER) and LCX (UI SOFTWARE DEVELOPER) 2. Normal carotid arteries Echocardiogram 06/05/2019 CONCLUSIONS: [...] artery disease involving 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 - ICD9: 414.05, [...] reviewed. Repeat fasting lipid panel in 3 to4 months - ROSUVASTATIN 40 MG TABLET - ALT/SGPT - AST/SGOT BLD - LIPID PANEL BASIC 4. HARLEY on CPAP - ICD9: 327.23, V46.8, ICD10: G47.33, Z99.89 5. Dyspnea on exertion - ICD9: 786.09, ICD10: R06.00 Drake Agarwal MD documented in this encounterM[facility]05-03-2022 Miscellaneous Notes* Telephone Encounter - Jocelyn Kee Ma - 08/25/2021 9:04 AM EDT See update from pt and refill request. Metoprolol 50 mg previous Rx came from Cardio. Jocelyn Kee Ma documented in this encounterM[facility]04-28-2022 Miscellaneous Notes* Telephone Encounter - Susanna Ling RN - 08/20/2021 10:25 AM EDT Call to pt, pt states BP was elevated but under better control with maintenance from Bella Santos MD. Was wanting to f/u with however in regards to this. Able to schedule with 08/31/21 at 1000. * Telephone Encounter - Gale Serrano Pss - 08/20/2021 9:34 AM EDT Patient called and was upset that his appt with Dr. Delong had been canceled for August and September. He states he is having blood pressure concerns and does not want to wait until end of December to see Chyeanne Gonzalez. Please call patient and advise. documented in this encounterM[facility]11-08-2021 History of Present illness Narrative* Court Bowser RT(R) - 03/02/2021 1:30 PM EST Radiology Service Progress Note PATIENT NAME: Jocelyn Loaiza DATE OF SERVICE: March 02, 2021 TIME: 1:27 PM PATIENT IDENTITY VERIFICATION COMPLETED USING TWO (2) IDENTIFIERS: Name and Date of confirmedby patient verbally. FALL SCREENING: Has the patient had 2 falls in the last year or 1 fall with injury or currently using an Ambulatory Assistive Device (Walker, Cane, Wheelchair, Crutches, etc.)? No PATIENT GENDER DATA: Male PATIENT RELEVANT IMPLANT DATA REVIEWED: Not Applicable RADIOLOGY DEPARTMENT: General X-ray: Exam(s) Completed: Lower Extremity X- Ray(s): Knee, AP / Lat / Tunne / Merchant Left and Wt. Bearing PERIPHERAL IV DATA: Not applicable SIGNED BY: RT Satnam(R) March 02, 2021 1:27 PM documented in this encounterM[facility]09-14-2021 History of Present illness Narrative* Court Bowser RT(R) - 01/06/2021 1:30 PM EDT Radiology Service Progress Note PATIENT NAME: Jocelyn Loaiza DATE OF SERVICE: January 06, 2021 TIME: 1:25 PM PATIENT IDENTITY VERIFICATION COMPLETED USING TWO (2) IDENTIFIERS: Name and Date of confirmedby patient verbally. FALL SCREENING: Has the patient had 2 falls in the last year or 1 fall with injury or currently using an Ambulatory Assistive Device (Walker, Cane, Wheelchair, Crutches, etc.)? No PATIENT GENDER DATA: Male PATIENT RELEVANT IMPLANT DATA REVIEWED: Not Applicable RADIOLOGY DEPARTMENT: General X-ray: Exam(s) Completed: Spine X-Ray(s): Lumbar AP / LAT / L5-S1 PERIPHERAL IV DATA: Not applicable SIGNED BY: RT Satnam(R) January 06, 2021 1:25 PM documented in this encounterMansfield Hospital11-18-2020 History of Present illness Narrative* Teodoro IsidroRt)Bryon - 03/12/2020 2:30 PM EST Radiology Service Progress Note PATIENT NAME: Jocelyn Loaiza DATE OF SERVICE: March 12, 2020 TIME: 2:24 PM PATIENT IDENTITY VERIFICATION COMPLETED USING TWO (2) IDENTIFIERS: Name and Date of confirmedby patient verbally. FALL SCREENING: Has the patient had 2 falls in the last year or 1 fall with injury or currently using an Ambulatory Assistive Device (Walker, Cane, Wheelchair, Crutches, etc.)? No PATIENT GENDER DATA: Male PATIENT RELEVANT IMPLANT DATA REVIEWED: Not Applicable RADIOLOGY DEPARTMENT: General X-ray: Exam(s) Completed: Chest X-Ray PERIPHERAL IV DATA: Not applicable SIGNED BY: RT Jose March 12, 2020 2:24 PM documented in this encounterMansfield Hospital02-11-2020 History of Past illness Narrative* Problem Noted Date Resolved Date Chest pain 06/05/2019 06/11/2019 Chest pain 06/01/2019 06/02/2019 Last Assessment & Plan: Concerning 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 & SOB x6 weeks [employer] CT chest shows calcified coronary vessels Echo 05/07/19 w/ EF 66%, grade I diastolic dysfunction Cycle Troponin x3 with EKGs PRN for ACS rule out Check lipid panel and A1c for risk stratification Maintain continuous telemetry monitoring Cards consult as obtain to obtain stress test over weekend documented as of this encounter (statuses as of 08/20/2021) [facility] illness Narrative* Problem Noted Date Resolved Date Chest pain 06/05/2019 06/11/2019 Chest pain 06/01/2019 06/02/2019 Last Assessment & Plan: Concerning 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 & SOB x6 weeks [employer] CT chest shows calcified coronary vessels Echo 05/07/19 w/ EF 66%, grade I diastolic dysfunction Cycle Troponin x3 with EKGs PRN for ACS rule out Check lipid panel and A1c for risk stratification Maintain continuous telemetry monitoring Cards consult as obtain to obtain stress test over weekend documented as of this encounter (statuses as of 08/25/2021) [facility] Narrative* Problem Noted Date Resolved Date Chest pain 06/05/2019 06/11/2019 Chest pain 06/01/2019 06/02/2019 Last Assessment & Plan: Concerning 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 & SOB x6 weeks [employer] CT chest shows calcified coronary vessels Echo 05/07/19 w/ EF 66%, grade I diastolic dysfunction Cycle Troponin x3 with EKGs PRN for ACS rule out Check lipid panel and A1c for risk stratification Maintain continuous telemetry monitoring Cards consult as obtain to obtain stress test over weekend documented as of this encounter (statuses as of 08/31/2021) [facility] Narrative* Problem Noted Date Resolved Date Chest pain 06/05/2019 06/11/2019 Chest pain 06/01/2019 06/02/2019 Last Assessment & Plan: Concerning 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 & SOB x6 weeks [employer] CT chest shows calcified coronary vessels Echo 05/07/19 w/ EF 66%, grade I diastolic dysfunction Cycle Troponin x3 with EKGs PRN for ACS rule out Check lipid panel and A1c for risk stratification Maintain continuous telemetry monitoring Cards consult as obtain to obtain stress test over weekend documented as of this encounter (statuses as of 09/17/2021) [facility] Narrative* Problem Noted Date Resolved Date Chest pain 06/05/2019 06/11/2019 Chest pain 06/01/2019 06/02/2019 Last Assessment & Plan: Concerning 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 & SOB x6 weeks [employer] CT chest shows calcified coronary vessels Echo 05/07/19 w/ EF 66%, grade I diastolic dysfunction Cycle Troponin x3 with EKGs PRN for ACS rule out Check lipid panel and A1c for risk stratification Maintain continuous telemetry monitoring Cards consult as obtain to obtain stress test over weekend documented as of this encounter (statuses as of 09/17/2021) [facility] Narrative* Problem Noted Date Resolved Date Chest pain 06/05/2019 06/11/2019 Chest pain 06/01/2019 06/02/2019 Last Assessment & Plan: Concerning 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 & SOB x6 weeks [employer] CT chest shows calcified coronary vessels Echo 05/07/19 w/ EF 66%, grade I diastolic dysfunction Cycle Troponin x3 with EKGs PRN for ACS rule out Check lipid panel and A1c for risk stratification Maintain continuous telemetry monitoring Cards consult as obtain to obtain stress test over weekend documented as of this encounter (statuses as of 11/03/2021) [facility] Narrative* Problem Noted Date Resolved Date Chest pain 06/05/2019 06/11/2019 Chest pain 06/01/2019 06/02/2019 Last Assessment & Plan: Concerning 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 & SOB x6 weeks [employer] CT chest shows calcified coronary vessels Echo 05/07/19 w/ EF 66%, grade I diastolic dysfunction Cycle Troponin x3 with EKGs PRN for ACS rule out Check lipid panel and A1c for risk stratification Maintain continuous telemetry monitoring Cards consult as obtain to obtain stress test over weekend documented as of this encounter (statuses as of 11/09/2021) [facility] Narrative* Problem Noted Date Resolved Date Chest pain 06/05/2019 06/11/2019 Chest pain 06/01/2019 06/02/2019 Last Assessment & Plan: Concerning 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 & SOB x6 weeks [employer] CT chest shows calcified coronary vessels Echo 05/07/19 w/ EF 66%, grade I diastolic dysfunction Cycle Troponin x3 with EKGs PRN for ACS rule out Check lipid panel and A1c for risk stratification Maintain continuous telemetry monitoring Cards consult as obtain to obtain stress test over weekend documented as of this encounter (statuses as of 03/15/2022) [facility] Narrative* Problem Noted Date Resolved Date Chest pain 06/05/2019 06/11/2019 Chest pain 06/01/2019 06/02/2019 Last Assessment & Plan: Concerning 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 & SOB x6 weeks [employer] CT chest shows calcified coronary vessels Echo 05/07/19 w/ EF 66%, grade I diastolic dysfunction Cycle Troponin x3 with EKGs PRN for ACS rule out Check lipid panel and A1c for risk stratification Maintain continuous telemetry monitoring Cards consult as obtain to obtain stress test over weekend documented as of this encounter (statuses as of 04/16/2022) [facility] Narrative* Problem Noted Date Resolved Date Chest pain 06/05/2019 06/11/2019 Chest pain 06/01/2019 06/02/2019 Last Assessment & Plan: Concerning 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 & SOB x6 weeks [employer] CT chest shows calcified coronary vessels Echo 05/07/19 w/ EF 66%, grade I diastolic dysfunction Cycle Troponin x3 with EKGs PRN for ACS rule out Check lipid panel and A1c for risk stratification Maintain continuous telemetry monitoring Cards consult as obtain to obtain stress test over weekend documented as of this encounter (statuses as of 04/16/2022) [facility] Narrative* Problem Noted Date Resolved Date Chest pain 06/05/2019 06/11/2019 Chest pain 06/01/2019 06/02/2019 Last Assessment & Plan: Concerning 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 & SOB x6 weeks [employer] CT chest shows calcified coronary vessels Echo 05/07/19 w/ EF 66%, grade I diastolic dysfunction Cycle Troponin x3 with EKGs PRN for ACS rule out Check lipid panel and A1c for risk stratification Maintain continuous telemetry monitoring Cards consult as obtain to obtain stress test over weekend documented as of this encounter (statuses as of 05/06/2022) [facility] Narrative* Problem Noted Date Resolved Date Chest pain 06/05/2019 06/11/2019 Chest pain 06/01/2019 06/02/2019 Last Assessment & Plan: Concerning 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 & SOB x6 weeks [employer] CT chest shows calcified coronary vessels Echo 05/07/19 w/ EF 66%, grade I diastolic dysfunction Cycle Troponin x3 with EKGs PRN for ACS rule out Check lipid panel and A1c for risk stratification Maintain continuous telemetry monitoring Cards consult as obtain to obtain stress test over weekend documented as of this encounter (statuses as of 05/19/2022) [facility] Narrative* Problem Noted Date Resolved Date Chest pain 06/05/2019 06/11/2019 Chest pain 06/01/2019 06/02/2019 Last Assessment & Plan: Concerning 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 & SOB x6 weeks [employer] CT chest shows calcified coronary vessels Echo 05/07/19 w/ EF 66%, grade I diastolic dysfunction Cycle Troponin x3 with EKGs PRN for ACS rule out Check lipid panel and A1c for risk stratification Maintain continuous telemetry monitoring Cards consult as obtain to obtain stress test over weekend documented as of this encounter (statuses as of 05/24/2022) [facility] Narrative* Problem Noted Date Resolved Date Chest pain 06/05/2019 06/11/2019 Chest pain 06/01/2019 06/02/2019 Last Assessment & Plan: Concerning 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 & SOB x6 weeks [employer] CT chest shows calcified coronary vessels Echo 05/07/19 w/ EF 66%, grade I diastolic dysfunction Cycle Troponin x3 with EKGs PRN for ACS rule out Check lipid panel and A1c for risk stratification Maintain continuous telemetry monitoring Cards consult as obtain to obtain stress test over weekend documented as of this encounter (statuses as of 06/02/2022) [facility] Narrative* Problem Noted Date Resolved Date Chest pain 06/05/2019 06/11/2019 Chest pain 06/01/2019 06/02/2019 Last Assessment & Plan: Concerning 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 & SOB x6 weeks [employer] CT chest shows calcified coronary vessels Echo 05/07/19 w/ EF 66%, grade I diastolic dysfunction Cycle Troponin x3 with EKGs PRN for ACS rule out Check lipid panel and A1c for risk stratification Maintain continuous telemetry monitoring Cards consult as obtain to obtain stress test over weekend documented as of this encounter (statuses as of 06/06/2022) [facility]arrative* Problem Noted Date Resolved Date Chest pain 06/05/2019 06/11/2019 Chest pain 06/01/2019 06/02/2019 Last Assessment & Plan: Concerning 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 & SOB x6 weeks [employer] CT chest shows calcified coronary vessels Echo 05/07/19 w/ EF 66%, grade I diastolic dysfunction Cycle Troponin x3 with EKGs PRN for ACS rule out Check lipid panel and A1c for risk stratification Maintain continuous telemetry monitoring Cards consult as obtain to obtain stress test over weekend documented as of this encounter (statuses as of 08/23/2022) [facility]arrative* Problem Noted Date Resolved Date Chest pain 06/05/2019 06/11/2019 Chest pain 06/01/2019 06/02/2019 Last Assessment & Plan: Concerning 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 & SOB x6 weeks [employer] CT chest shows calcified coronary vessels Echo 05/07/19 w/ EF 66%, grade I diastolic dysfunction Cycle Troponin x3 with EKGs PRN for ACS rule out Check lipid panel and A1c for risk stratification Maintain continuous telemetry monitoring Cards consult as obtain to obtain stress test over weekend documented as of this encounter (statuses as of 10/22/2022) [facility]arrative* Problem Noted Date Resolved Date Chest pain 06/05/2019 06/11/2019 Chest pain 06/01/2019 06/02/2019 Last Assessment & Plan: Concerning 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 & SOB x6 weeks [employer] CT chest shows calcified coronary vessels Echo 05/07/19 w/ EF 66%, grade I diastolic dysfunction Cycle Troponin x3 with EKGs PRN for ACS rule out Check lipid panel and A1c for risk stratification Maintain continuous telemetry monitoring Cards consult as obtain to obtain stress test over weekend documented as of this encounter (statuses as of 10/22/2022) [facility]arrative* Problem Noted Date Diagnosed Date Resolved Date Chest pain 06/05/2019 06/11/2019 Chest pain 06/01/2019 06/02/2019 Last Assessment & Plan: Concerning 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 & SOB x6 weeks [employer] CT chest shows calcified coronary vessels Echo 05/07/19 w/ EF 66%, grade I diastolic dysfunction Cycle Troponin x3 with EKGs PRN for ACS rule out Check lipid panel and A1c for risk stratification Maintain continuous telemetry monitoring Cards consult as obtain to obtain stress test over weekend documented as of this encounter (statuses as of 11/09/2022) [facility]arrative* Problem Noted Date Diagnosed Date Resolved Date Chest pain 06/05/2019 06/11/2019 Chest pain 06/01/2019 06/02/2019 Last Assessment & Plan: Concerning 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 & SOB x6 weeks [employer] CT chest shows calcified coronary vessels Echo 05/07/19 w/ EF 66%, grade I diastolic dysfunction Cycle Troponin x3 with EKGs PRN for ACS rule out Check lipid panel and A1c for risk stratification Maintain continuous telemetry monitoring Cards consult as obtain to obtain stress test over weekend documented as of this encounter (statuses as of 06/01/2023) [facility]arrative* Problem Noted Date Diagnosed Date Resolved Date Chest pain 06/05/2019 06/11/2019 Chest pain 06/01/2019 06/02/2019 Last Assessment & Plan: Concerning 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 & SOB x6 weeks [employer] CT chest shows calcified coronary vessels Echo 05/07/19 w/ EF 66%, grade I diastolic dysfunction Cycle Troponin x3 with EKGs PRN for ACS rule out Check lipid panel and A1c for risk stratification Maintain continuous telemetry monitoring Cards consult as obtain to obtain stress test over weekend documented as of this encounter (statuses as of 06/03/2023) [facility] Narrative* Problem Noted Date Diagnosed Date Resolved Date Chest pain 06/05/2019 06/11/2019 Chest pain 06/01/2019 06/02/2019 Last Assessment & Plan: Concerning 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 & SOB x6 weeks [employer] CT chest shows calcified coronary vessels Echo 05/07/19 w/ EF 66%, grade I diastolic dysfunction Cycle Troponin x3 with EKGs PRN for ACS rule out Check lipid panel and A1c for risk stratification Maintain continuous telemetry monitoring Cards consult as obtain to obtain stress test over weekend documented as of this encounter (statuses as of 06/13/2023) [facility]* Problem Noted Date Diagnosed Date Resolved Date Chest pain 06/05/2019 06/11/2019 Chest pain 06/01/2019 06/02/2019 Last Assessment & Plan: Concerning 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 & SOB x6 weeks [employer] CT chest shows calcified coronary vessels Echo 05/07/19 w/ EF 66%, grade I diastolic dysfunction Cycle Troponin x3 with EKGs PRN for ACS rule out Check lipid panel and A1c for risk stratification Maintain continuous telemetry monitoring Cards consult as obtain to obtain stress test over weekend documented as of this encounter (statuses as of 06/22/2023) [facility] Narrative* Problem Noted Date Diagnosed Date Resolved Date Chest pain 06/05/2019 06/11/2019 Chest pain 06/01/2019 06/02/2019 Last Assessment & Plan: Concerning 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 & SOB x6 weeks [employer] CT chest shows calcified coronary vessels Echo 05/07/19 w/ EF 66%, grade I diastolic dysfunction Cycle Troponin x3 with EKGs PRN for ACS rule out Check lipid panel and A1c for risk stratification Maintain continuous telemetry monitoring Cards consult as obtain to obtain stress test over weekend documented as of this encounter (statuses as of 06/23/2023) [facility]arrative* Problem Noted Date Diagnosed Date Resolved Date Chest pain 06/05/2019 06/11/2019 Chest pain 06/01/2019 06/02/2019 Last Assessment & Plan: Concerning 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 & SOB x6 weeks [employer] CT chest shows calcified coronary vessels Echo 05/07/19 w/ EF 66%, grade I diastolic dysfunction Cycle Troponin x3 with EKGs PRN for ACS rule out Check lipid panel and A1c for risk stratification Maintain continuous telemetry monitoring Cards consult as obtain to obtain stress test over weekend documented as of this encounter (statuses as of 06/24/2023) [facility] Narrative* Problem Noted Date Diagnosed Date Resolved Date Chest pain 06/05/2019 06/11/2019 Chest pain 06/01/2019 06/02/2019 Last Assessment & Plan: Concerning 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 & SOB x6 weeks [employer] CT chest shows calcified coronary vessels Echo 05/07/19 w/ EF 66%, grade I diastolic dysfunction Cycle Troponin x3 with EKGs PRN for ACS rule out Check lipid panel and A1c for risk stratification Maintain continuous telemetry monitoring Cards consult as obtain to obtain stress test over weekend documented as of this encounter (statuses as of 07/13/2023) [facility]* Problem Noted Date Diagnosed Date Resolved Date Chest pain 06/05/2019 06/11/2019 Chest pain 06/01/2019 06/02/2019 Last Assessment & Plan: Concerning 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 & SOB x6 weeks [employer] CT chest shows calcified coronary vessels Echo 05/07/19 w/ EF 66%, grade I diastolic dysfunction Cycle Troponin x3 with EKGs PRN for ACS rule out Check lipid panel and A1c for risk stratification Maintain continuous telemetry monitoring Cards consult as obtain to obtain stress test over weekend documented as of this encounter (statuses as of 08/03/2023) [facility] Philipp Morales [facility] April 23, 2023 11:38am Note Date/Time April 23, 2023 10:03am [facility] Medical Records Department [address] [place] [address] Emergency Department Summary 04/23/23 MR#: [id number] Acct: [id number] Name: JOCELYN LOAIZA Rep #:[id number] 1 : 1945 77 From: Philipp Siddiqui PCP: Dr. Bella Santos MD Status:RE G ER Location: ED HPI History of Present Illness Chief Complaint: Palpitations Informant: patient Narrative Narrative: Presents by EMS from home for palpitations after contacting nursing triage through [facility]. He states 2 days ago noted transient palpitations. Yesterday had recurrent symptoms in the evening and has persisted mild lightheaded symptoms. He reports yesterday had a heart rate briefly in the 40s blood pressure was 150s. He states he rested and all came back to normal. He does take metoprolol 25 mg twice daily for blood pressure along with losartan. Reported this morning blood pressures in the 80s when he called nursing line andwas told to come by EMS. No cough. No vomiting or diarrhea. No urinary symptoms. History of coronary disease three- vessel bypass in the past followed by Dr. Parikh. He takes 2 baby aspirin's. EMS EKG transmitted was rate controlled A-fib. He has no history of this. He denies stroke history of heart failure or diabetes. As noted he is on blood pressure medicines. Prior similar symptoms: No PFSH PFS Medical History Acne rosacea Atherosclerotic heart disease of [place] coronary artery without angina pectoris Dyslipidemia Dyspnea on exertion Former smoker, stopped smoking in distant past Hypertension Kidney stones HARLEY on CPAP Home Medications aspirin 81 mg tablet,delayed release 162 mg PO DAILY@0800 heart health 01/22/14 [History Last Taken 05/31/19] atorvastatin 10 mg tablet 40 mg PO QHS cholesterol 01/22/14 [History Last Taken 05/31/19] acetaminophen 500 mg tablet 500 - 1,000 mg PO Q6H PRN PRN Pain Or Fever 07/05/19[History Last Taken Unknown] sennosides 8.6 mg-docusate sodium 50 mg tablet 1 ea PO BID bowel care 07/05/19 [History Last Taken Unknown] tamsulosin 0.4 mg capsule 0.4 mg PO BID prostate 07/05/19 [History Last Taken Unknown] metoprolol tartrate 25 mg tablet 25 mg PO BID heart 11/27/19 [History Last Taken 11/27/19] omeprazole 20 mg capsule,delayed release 20 mg PO DAILY 03/08/20 [History Last Taken Unknown] azelaic acid 15 % topical gel 1 applic topical BID 09/17/21 [History Last Taken Unknown] doxycycline hyclate 20 mg tablet 20 mg PO BID 09/17/21 [History Last Taken Unknown] losartan 50 mg tablet 50 mg PO DAILY 09/17/21 [History Last Taken Unknown] oxycodone 5 mg tablet 5 mg PO Q6H PRN pain 3 days #12 tabs 06/15/22 [Rx Last Taken Unknown] apixaban 5 mg tablet (Eliquis) 5 mg PO BID #60 tabs 04/23/23 [Rx Last Taken Unknown] Allergy/AdvReac Type Severity Reaction Status Date / Time No Known Allergies Allergy Verified 04/23/23 09:21 Surgical History H/O hernia repair H/O lithotripsy Hx of tonsillectomy S/P triple vessel bypass Social History Smoking Status: Former smoker ROS ROS ED Constitutional Constitutional ED: Denies chills, fever(s) or sweats Eyes Eyes: Denies change in vision ENT ENT ED: Denies dysphagia or sore throat Cardiovascular Cardiovascular: Reports palpitations; Denies chest pain, leg edema or racing heartbeat Respiratory/Chest Respiratory/Chest: Denies cough, dyspnea or dyspnea on exertion Gastrointestinal Gastrointestinal: Denies abdominal pain, diarrhea, nausea or vomiting Genitourinary Genitourinary ED: Denies dysuria, hematuria or urinary frequency Musculoskeletal Musculoskeletal: Denies back pain, extremity pain or neck pain Integumentary Denies rash or wounds Neurologic Neurologic: Denies headache(s), paresthesias or weakness EXAM Physical Exam Const Vital Signs: 04/23/23 09:19 04/23/23 09:27 04/23/23 11:34 Temperature 97.7 F L Temperature Source Temporal Pulse Rate 76 69 Respiratory Rate 16 18 Respiratory Effort Normal Non-Labored Blood Pressure 132/71 H 101/75 Blood Pressure Mean 91 83 Pulse Ox 93 98 Positive well nourished and well developed General Appearance ED: well developed and NAD HEENT Reports moist mucous membranes normocephalic and atraumatic Eyes PERRL, EOMs intact bilaterally and conjunctivae normal General Eye ED: Yes normal appearance of both eyes Neck no lymphadenopathy and supple General: Negative for tenderness Chest Wall Chest: Negative for tenderness Resp normal respiratory effort and normal air movement Effort and Inspection: symmetric chest movement; Negative for respiratory distress Cardio regular rate and no murmurs Rhythm: abnormal rhythm Peripheral Pulses: pulses 2+ throughout GI normal to inspection, nondistended, normoactive bowel sounds and non-tender Palpation: Negative for guarding or rebound tenderness present Back/Spine no CVA tenderness and no thoracic nor lumbar tenderness Extremity normal to inspection General Extremety ED: Negative for edema or tenderness General Extremity: Negative for edema Neuro oriented x3 and no sensory deficits noted Sensorium / Orientation: awake and alert Skin no rashes or lesions noted and no wounds MDM MDM MDM Narrative Medical decision making narrative: Interventions / MDM: Differential diagnosis: New onset atrial fibrillation, palpitations Diagnosis considered but do not suspect: N/A My EKG interpretation: Rate controlled A-fib at 77, no ST or T wave changes. Imaging independently reviewed and interpreted by myself: 1 view chest x-ray: Noacute process External documents reviewed: N/A Test considered but not ordered:N/A ED course: Patient new onset A-fib rate controlled on metoprolol. Blood pressure stable on arrival. CHADS2 Vascor is a 4. Will check labs chest x-ray. 1130: Heart remains controlled however in A-fib on the monitor. Labs are all stable including thyroid and magnesium levels. Discussed with patient his risk for strokes and with his CHADS2 score. Discussed starting Eliquis however he states he would like to talk to his quality assurance director prior to starting. He understands the risks of having a stroke in the meantime. I did discuss if he decides to start to avoid NSAIDs and use Tylenol if needed at home for pain or fever symptoms in the future. He will monitor for bleeding issues denies any recent rectal bleeding. Prescription Eliquis was sent to his pharmacy if he decides to start this. Return precautions. All questions were answered. Re-evaluation: stable Disposition discussed with patient/family/significant other: Patient Case discussed with consulting clinician: N/A This note was generated with [employer] dictation software. It may contain incorrectwords, spelling, and punctuation that were not noted in checking the note beforesigning. Lab Data Attestation: I reviewed the patient's lab results. Labs: Laboratory Results - last 24 hr 04/23/23 10:00 WBC 6.8 RBC 5.29 Hgb 16.5 Hct 51.2 MCV 96.8 H MCH 31.2 MCHC 32.2 RDW Std Deviation 42.1 RDW Coeff of Namrata 11.8 Plt Count 309 MPV 9.4 Immature Gran % (Auto) 0.600 Neut % (Auto) 59.2 Lymph % (Auto) 21.9 Mccreary % (Auto) 16.0 H Eos % (Auto) 1.6 Baso % (Auto) 0.7 Absolute Neuts (auto) 4.0 Absolute Lymphs (auto) 1.48 Nucleated RBC % 0 PT 13.8 INR 1.1 APTT 30.4 Sodium 141 Potassium 4.3 Chloride 108 H Carbon Dioxide 31.0 Anion Gap 2 L BUN 24 H Creatinine 1.09 Estim Creat Clear Calc 53.90 Est GFR (MDRD) Af Amer 84 Est GFR (MDRD) Non-Af 70 BUN/Creatinine Ratio 22.0 H Glucose 69 L Calcium 9.3 Magnesium 2.4 TSH 1.94 Radiography Diagnostic Testing: Clinical Impression(s) from Imaging Studies Chest X-Ray 04/23/23 09:58 IMPRESSION: No acute thoracic pathology. Electronically Signed: Ryan Tee MD at 10:58 EST , Discharge Plan Triage Chief Complaint: Palpitations ED Provider: Philipp Morales Dx/Rx/DC Orders Clinical Impression: Palpitations, New onset a-fib Instructions: AFib Dc Prescriptions: New Eliquis 5 mg tablet 5 mg PO BID Qty: 60 0RF No Action atorvastatin 10 MG tablet 40 mg PO QHS aspirin 81 MG tablet 162 mg PO DAILY@0800 sennosides-docusate sodium 1 EACH tablet 1 ea PO BID acetaminophen 500 MG tablet 500 - 1,000 mg PO Q6H PRN PRN (Reason: Pain Or Fever) tamsulosin 0.4 MG capsule 0.4 mg PO BID metoprolol tartrate 25 MG tablet 25 mg PO BID omeprazole 20 MG capsule 20 mg PO DAILY losartan 50 mg tablet 50 mg PO DAILY Patient Comments: Take 1 tablet by mouth once daily. doxycycline hyclate 20 mg tablet 20 mg PO BID azelaic acid 15 % gel 1 applic TOPICAL BID Rx Instructions: apply to face oxycodone 5 mg tablet 5 mg PO Q6H PRN (Reason: pain) 3 Days Qty: 12 0RF Primary Care Provider: Bella Santos Referrals: Drake Agarwal MD [Non-Staff] - 3-5 Days Bella Santos MD [Primary Care Provider] - Activity Restrictions/Additional Instructions: You have new atrial fibrillation on EKG that is rate controlled. Your labs including thyroid and magnesium are normal. Your x-ray is negative. You are recommended to start anticoagulants to prevent stroke. Prescription for Eliquisis sent to your pharmacy. You are electing to discuss with your heart doctor prior to starting. You understand the risks of stroke. Call your quality assurance director office for discussion to start the medications. If you decide to start, avoid NSAIDs, can use Tylenol if needed for pain or fevers. Return if any worsening symptoms. Disposition Disposition: Home, Self Care What to do if you have Problems For any increased pain, shortness of breath, bleeding, nausea or vomiting, chestpain, or any unexpected problems, contact your Primary Care Provider. Call [facility] ([phone]) or report to the closest Emergency Room. Call 911 if necessary. 04/23/23 1138 <Electronically signed by Philipp Siddiqui> Cosigner Signature (if applicable): CC: Drake Agarwal MD; Dr. Bella Santos MD ~ Signed [facility] Work Phone: Evaluation note* Diagnosis 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- Primary Primary hypertension Unspecified essential hypertension Dyslipidemia Other and unspecified hyperlipidemia HARLEY on CPAP Obstructive sleep apnea (adult) (pediatric) Dyspnea on exertion Other dyspnea and respiratory abnormality [facility] Primary hypertension- Primary Unspecified essential hypertension 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 Other hyperlipidemia Elevated glucose Other abnormal glucose [facility] Diagnosis Dyslipidemia Other and unspecified hyperlipidemia Primary hypertension Unspecified essential hypertension [facility] Diagnosis Screening for ischemic heart disease- Primary 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 Primary hypertension Unspecified essential hypertension Other hyperlipidemia HARLEY on CPAP Obstructive sleep apnea (adult) (pediatric) Dyspnea on exertion Other dyspnea and respiratory abnormality [facility] Diagnosis Tachycardia- Primary Tachycardia, unspecified Primary hypertension Unspecified essential hypertension Hx of CABG Postsurgical aortocoronary bypass status [facility] [place] [facility] Diagnosis Essential hypertension- Primary Unspecified essential hypertension Tachycardia Tachycardia, unspecified 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 Other hyperlipidemia Elevated glucose Other abnormal glucose Hx of CABG Postsurgical aortocoronary bypass status GERD without esophagitis Esophageal reflux HARLEY on CPAP Obstructive sleep apnea (adult) (pediatric) Onychomycosis Dermatophytosis of nail documented in this encounter [facility] note* Diagnosis Right knee pain, unspecified chronicity- Primary documented in this encounter [facility] note* Diagnosis Dyslipidemia Other and unspecified hyperlipidemia documented in this encounter [facility] note* Diagnosis Pain in toe of left foot- Primary Pain in limb Onychomycosis Dermatophytosis of nail Pain in toe of right foot Pain in limb Pes planus of both feet documented in this encounter [facility] noteNo assessment information [facility]WUniversity [facility] Work Phone: evaluation note* Diagnosis COVID- Primary documented in this encounter [facility] note* Diagnosis Essential hypertension- Primary Unspecified essential hypertension Other hyperlipidemia Elevated glucose Other abnormal glucose 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 Postsurgical aortocoronary bypass status GERD without esophagitis Esophageal reflux HARLEY on CPAP Obstructive sleep apnea (adult) (pediatric) Hemorrhoids, unspecified hemorrhoid type documented in this encounter [facility] note* Diagnosis Onset Date Resolution Status Afib acute Anticoagulant long-term use acute Exertional angina acute Hyperlipidemia acute CAD (coronary artery disease) chronic Hypertension [facility] Work Phone: evaluation note* Diagnosis Palpitations- Primary Paroxysmal atrial fibrillation (HCC) Atrial fibrillation Lightheadedness Dizziness and giddiness [facility] [place] [facility]* Diagnosis Dyslipidemia Other and unspecified hyperlipidemia New onset a-fib (HCC) Atrial fibrillation Depression, unspecified depression type [facility] [place] [facility]* Diagnosis Essential hypertension- Primary Unspecified essential hypertension Anxiety and depression Dysthymic disorder Elevated glucose Other abnormal glucose GERD without esophagitis Esophageal reflux Rosacea Dyslipidemia Other and unspecified hyperlipidemia 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 Postsurgical aortocoronary bypass status Paroxysmal atrial fibrillation (HCC) Atrial fibrillation Nerve pain Neuralgia, neuritis, and radiculitis, unspecified Benign prostatic hyperplasia without lower urinary tract symptoms documented [facility] encounter [facility] [place] [facility]* Diagnosis 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- Primary Paroxysmal atrial fibrillation (HCC) Atrial fibrillation Primary hypertension Unspecified essential hypertension Dyslipidemia Other and unspecified hyperlipidemia Other hyperlipidemia documented [facility] encounter [facility] [place] [facility]* Diagnosis Essential hypertension- Primary Unspecified essential hypertension Paroxysmal atrial fibrillation (HCC) Atrial fibrillation Dyslipidemia Other and unspecified hyperlipidemia Elevated glucose Other abnormal glucose GERD without esophagitis Esophageal reflux Anxiety and depression Dysthymic disorder Benign prostatic hyperplasia without lower urinary tract symptoms Hx of CABG Postsurgical aortocoronary bypass status Rosacea 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 Screening for depression Encounter for screening examination for other mental health and behavioral disorders documented in this encounter [facility] [place] [facility]* Diagnosis Chest pain, unspecified type Dyslipidemia Other and unspecified hyperlipidemia Essential hypertension Unspecified essential hypertension HARLEY on CPAP Obstructive sleep apnea (adult) (pediatric) Chest pain Chest pain, unspecified Dyslipidemia Other and unspecified hyperlipidemia HARLEY on CPAP Obstructive sleep apnea (adult) (pediatric) Acute pain of left knee documented in this encounter [facility] [place] [facility]* Diagnosis Chest pain, unspecified type Dyslipidemia Other and unspecified hyperlipidemia Essential hypertension Unspecified essential hypertension HARLEY on CPAP Obstructive sleep apnea (adult) (pediatric) Chest pain Chest pain, unspecified HTN (hypertension) Unspecified essential hypertension Dyslipidemia Other and unspecified hyperlipidemia HARLEY on CPAP Obstructive sleep apnea (adult) (pediatric) Acute left-sided low back pain without sciatica documented in this encounter [facility] [place] [facility]* Diagnosis Chest pain, unspecified type Dyslipidemia Other and unspecified hyperlipidemia Essential hypertension Unspecified essential hypertension HARLEY on CPAP Obstructive sleep apnea (adult) (pediatric) Chest pain Chest pain, unspecified HTN (hypertension) Unspecified essential hypertension Dyslipidemia Other and unspecified hyperlipidemia HARLEY on CPAP Obstructive sleep apnea (adult) (pediatric) Chest pain, unspecified type Atelectasis Pulmonary collapse [facility] [place] [facility]* Diagnosis Chest pain, unspecified type Dyslipidemia Other and unspecified hyperlipidemia Essential hypertension Unspecified essential hypertension HARLEY on CPAP Obstructive sleep apnea (adult) (pediatric) Chest pain Chest pain, unspecified Dyslipidemia Other and unspecified hyperlipidemia HARLEY on CPAP Obstructive sleep apnea (adult) (pediatric) Essential hypertension Unspecified essential hypertension documented [facility] encounter [facility] [place] [facility]* Diagnosis Chest pain, unspecified type Dyslipidemia Other and unspecified hyperlipidemia Essential hypertension Unspecified essential hypertension HARLEY on CPAP Obstructive sleep apnea (adult) (pediatric) Chest pain Chest pain, unspecified Dyslipidemia Other and unspecified hyperlipidemia HARLEY on CPAP Obstructive sleep apnea (adult) (pediatric) Transition of care- Primary Hospital discharge follow-up Other follow-up examination Chest pain, unspecified type 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 Essential hypertension Unspecified essential hypertension Paroxysmal atrial fibrillation (HCC) Atrial fibrillation Sinus congestion Other diseases of nasal cavity and sinuses documented in this encounter [facility] [place] [facility]* Diagnosis Chest pain, unspecified type Dyslipidemia Other and unspecified hyperlipidemia Essential hypertension Unspecified essential hypertension HARLEY on CPAP Obstructive sleep apnea (adult) (pediatric) Chest pain Chest pain, unspecified Dyslipidemia Other and unspecified hyperlipidemia HARLEY on CPAP Obstructive sleep apnea (adult) (pediatric) Dyslipidemia Other and unspecified hyperlipidemia documented [facility] encounter [facility] [place] [facility]* Diagnosis Chest pain, unspecified type Dyslipidemia Other and unspecified hyperlipidemia Essential hypertension Unspecified essential hypertension HARLEY on CPAP Obstructive sleep apnea (adult) (pediatric) Chest pain Chest pain, unspecified Dyslipidemia Other and unspecified hyperlipidemia HARLEY on CPAP Obstructive sleep apnea (adult) (pediatric) New onset a-fib (HCC) Atrial fibrillation Essential hypertension Unspecified essential hypertension documented in this encounter [facility] note* Diagnosis Chest pain, unspecified type Dyslipidemia Other and unspecified hyperlipidemia Essential hypertension Unspecified essential hypertension HARLEY on CPAP Obstructive sleep apnea (adult) (pediatric) Chest pain Chest pain, unspecified Dyslipidemia Other and unspecified hyperlipidemia HARLEY on CPAP Obstructive sleep apnea (adult) (pediatric) 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- Primary Paroxysmal atrial fibrillation (HCC) Atrial fibrillation Primary hypertension Unspecified essential hypertension Other hyperlipidemia documented [facility] [place] [facility]* Diagnosis Chest pain, unspecified type Dyslipidemia Other and unspecified hyperlipidemia Essential hypertension Unspecified essential hypertension HARLEY on CPAP Obstructive sleep apnea (adult) (pediatric) Chest pain Chest pain, unspecified Dyslipidemia Other and unspecified hyperlipidemia HARLEY on CPAP Obstructive sleep apnea (adult) (pediatric) 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 Paroxysmal atrial fibrillation (HCC) Atrial fibrillation [facility] Chest pain, unspecified type Dyslipidemia Other and unspecified hyperlipidemia Essential hypertension Unspecified essential hypertension HARLEY on CPAP Obstructive sleep apnea (adult) (pediatric) Chest pain Chest pain, unspecified Dyslipidemia Other and unspecified hyperlipidemia HARLEY on CPAP Obstructive sleep apnea (adult) (pediatric) Essential hypertension- Primary Unspecified essential hypertension Elevated glucose Other abnormal glucose Dyslipidemia Other and unspecified hyperlipidemia Anxiety and depression Dysthymic disorder 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 Paroxysmal atrial fibrillation (HCC) Atrial fibrillation Hx of CABG Postsurgical aortocoronary bypass status Benign prostatic hyperplasia without lower urinary tract symptoms Visit for suture removal Encounter for removal of sutures Encounter for immunization Need for other specified prophylactic vaccination against single bacterial disease Plantar wart [facility] [place] [facility] Diagnosis Chest pain, unspecified type Dyslipidemia Other and unspecified hyperlipidemia Essential hypertension Unspecified essential hypertension HARLEY on CPAP Obstructive sleep apnea (adult) (pediatric) Chest pain Chest pain, unspecified Dyslipidemia Other and unspecified hyperlipidemia HARLEY on CPAP Obstructive sleep apnea (adult) (pediatric) Plantar wart documented [facility] [place] [facility]* Diagnosis Chest pain, unspecified type Dyslipidemia Other and unspecified hyperlipidemia Essential hypertension Unspecified essential hypertension HARLEY on CPAP Obstructive sleep apnea (adult) (pediatric) Chest pain Chest pain, unspecified Dyslipidemia Other and unspecified hyperlipidemia HARLEY on CPAP Obstructive sleep apnea (adult) (pediatric) Nerve pain Neuralgia, neuritis, and radiculitis, unspecified [facility] Chest pain, unspecified type Dyslipidemia Other and unspecified hyperlipidemia Essential hypertension Unspecified essential hypertension HARLEY on CPAP Obstructive sleep apnea (adult) (pediatric) Chest pain Chest pain, unspecified Dyslipidemia Other and unspecified hyperlipidemia HARLEY on CPAP Obstructive sleep apnea (adult) (pediatric) Plantar wart- Primary [facility] Chest pain, unspecified type Dyslipidemia Other and unspecified hyperlipidemia Essential hypertension Unspecified essential hypertension HARLEY on CPAP Obstructive sleep apnea (adult) (pediatric) Chest pain Chest pain, unspecified Dyslipidemia Other and unspecified hyperlipidemia HARLEY on CPAP Obstructive sleep apnea (adult) (pediatric) Plantar wart- Primary [facility] Chest pain, unspecified type Dyslipidemia Other and unspecified hyperlipidemia Essential hypertension Unspecified essential hypertension HARLEY on CPAP Obstructive sleep apnea (adult) (pediatric) Chest pain Chest pain, unspecified Dyslipidemia Other and unspecified hyperlipidemia HARLEY on CPAP Obstructive sleep apnea (adult) (pediatric) Plantar wart- Primary 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 [facility] [place] [facility] Diagnosis Chest pain, unspecified type Dyslipidemia Other and unspecified hyperlipidemia Essential hypertension Unspecified essential hypertension HARLEY on CPAP Obstructive sleep apnea (adult) (pediatric) Chest pain Chest pain, unspecified Dyslipidemia Other and unspecified hyperlipidemia HARLEY on CPAP Obstructive sleep apnea (adult) (pediatric) Plantar wart- Primary [facility] [place] [facility] Diagnosis Chest pain, unspecified type Dyslipidemia Other and unspecified hyperlipidemia Essential hypertension Unspecified essential hypertension HARLEY on CPAP Obstructive sleep apnea (adult) (pediatric) Chest pain Chest pain, unspecified Dyslipidemia Other and unspecified hyperlipidemia HARLEY on CPAP Obstructive sleep apnea (adult) (pediatric) Nerve pain Neuralgia, neuritis, and radiculitis, unspecified documented in this encounter [facility] note* Diagnosis Chest pain, unspecified type Dyslipidemia Other and unspecified hyperlipidemia Essential hypertension Unspecified essential hypertension HARLEY on CPAP Obstructive sleep apnea (adult) (pediatric) Chest pain Chest pain, unspecified Dyslipidemia Other and unspecified hyperlipidemia HARLEY on CPAP Obstructive sleep apnea (adult) (pediatric) Chronic left-sided low back pain without sciatica- Primary Numbness and tingling of left lower extremity [facility] [place] [facility] Diagnosis Chest pain, unspecified type Dyslipidemia Other and unspecified hyperlipidemia Essential hypertension Unspecified essential hypertension HARLEY on CPAP Obstructive sleep apnea (adult) (pediatric) Chest pain Chest pain, unspecified Dyslipidemia Other and unspecified hyperlipidemia HARLEY on CPAP Obstructive sleep apnea (adult) (pediatric) Essential hypertension Unspecified essential hypertension [facility] [place] [facility]* Diagnosis Chest pain, unspecified type Dyslipidemia Other and unspecified hyperlipidemia Essential hypertension Unspecified essential hypertension HARLEY on CPAP Obstructive sleep apnea (adult) (pediatric) Chest pain Chest pain, unspecified Dyslipidemia Other and unspecified hyperlipidemia HARLEY on CPAP Obstructive sleep apnea (adult) (pediatric) Chronic left-sided low back pain without sciatica documented [facility] [place] [facility]* Diagnosis Chest pain, unspecified type Dyslipidemia Other and unspecified hyperlipidemia Essential hypertension Unspecified essential hypertension HARLEY on CPAP Obstructive sleep apnea (adult) (pediatric) Chest pain Chest pain, unspecified Dyslipidemia Other and unspecified hyperlipidemia AHRLEY on CPAP Obstructive sleep apnea (adult) (pediatric) Plantar wart- Primary [facility] Diagnosis Chest pain, unspecified type Dyslipidemia Other and unspecified hyperlipidemia Essential hypertension Unspecified essential hypertension HARLEY on CPAP Obstructive sleep apnea (adult) (pediatric) Chest pain Chest pain, unspecified Dyslipidemia Other and unspecified hyperlipidemia HARLEY on CPAP Obstructive sleep apnea (adult) (pediatric) 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 Paroxysmal atrial fibrillation (HCC) Atrial fibrillation documented [facility] [place] [facility]* Diagnosis Chest pain, unspecified type Dyslipidemia Other and unspecified hyperlipidemia Essential hypertension Unspecified essential hypertension HARLEY on CPAP Obstructive sleep apnea (adult) (pediatric) Chest pain Chest pain, unspecified Dyslipidemia Other and unspecified hyperlipidemia HARLEY on CPAP Obstructive sleep apnea (adult) (pediatric) 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- Primary Screening for depression Encounter for screening examination for other mental health and behavioral disorders Dyslipidemia Other and unspecified hyperlipidemia HARLEY on CPAP Obstructive sleep apnea (adult) (pediatric) Hx of CABG Postsurgical aortocoronary bypass status Paroxysmal atrial fibrillation (HCC) Atrial fibrillation Elevated glucose Other abnormal glucose Intervertebral disc disorders with radiculopathy, lumbar region Essential (primary) hypertension Unspecified essential hypertension Gross hematuria documented in this [facility] [place] [facility]* Diagnosis Chest pain, unspecified type Dyslipidemia Other and unspecified hyperlipidemia Essential hypertension Unspecified essential hypertension HARLEY on CPAP Obstructive sleep apnea (adult) (pediatric) Chest pain Chest pain, unspecified Dyslipidemia Other and unspecified hyperlipidemia HARLEY on CPAP Obstructive sleep apnea (adult) (pediatric) 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- Primary Paroxysmal atrial fibrillation (HCC) Atrial fibrillation Primary hypertension Unspecified essential hypertension Other hyperlipidemia [facility] Additional Instructions You have new atrial fibrillation on EKG that is rate controlled. Your labs including thyroid and magnesium are normal. Your x-ray is negative. You are recommended to start anticoagulants to prevent stroke. Prescription for Eliquis is sent to your pharmacy. You are electing to discuss with your heart doctor prior to starting. You understand the risks of stroke. Call your quality assurance director office for discussion to start the medications. If you decide to start, avoid NSAIDs, can use Tylenol if needed for pain or fevers. Return if any worsening symptoms. [facility] Work Phone: [facility] for referral (narrative)* Outpatient Procedure (Routine) - Closed Specialty Diagnoses / Procedures Referred By Contac t Referred To Contact [facility] [place] Diagnoses Screening for ischemic heart disease Procedures ECG COMPLETE ECG ROUTINE ECG W/LEAST 12 LDS W/I&R Drake Agarwal MD [address] [place], [place] [id number] [facility] [address] [address] Referral ID Status Reason Start Date Expiration Date V isits Requested Visits Authorized [id number] Closed Auto-Generate d Referral 03/10/2022 03/10/2023 1 1 [facility] for referral (narrative)* Outpatient Procedure (Routine) - Closed Specialty Diagnoses / Procedures Referred By Contac t Referred To Contact [facility] [place] Diagnoses Tachycardia Procedures ECG COMPLETE ECG ROUTINE ECG W/LEAST 12 LDS W/I&R Bella Santos MD [address] [place] [id number] [facility] [address] [address] Referral ID Status Reason Start Date Expiration Date V isits Requested Visits Authorized [id number] Closed Auto-Generate d Referral 04/15/2022 04/15/2023 1 1 [facility] for referral (narrative)* Diagnostic Procedure Only (Routine) - Closed Specialty Diagnoses / Procedures Referred By Contac t Referred To Contact XR IMAGING Diagnoses Acute pain of left knee Procedures XR KNEE GENERAL 4V AP BOTH/PA BOTH/LAT/MERC LT KNEE AP-WGT/LAT/Bella Lyons MD [address] [place] [id number] [place] [address] Referral ID Status Reason Start Date Expiration Date V isits Requested Visits Authorized [id number] Closed Auto-Generate d Referral 03/02/2021 04/01/2022 1 1 [facility] for referral (narrative)* Diagnostic Procedure Only (Urgent) - Closed Specialty Diagnoses / Procedures Referred By Contac t Referred To Contact XR IMAGING Diagnoses Acute left-sided low back pain without sciatica Procedures XR LUMBAR GENERAL 3V AP/LAT/L5-S1 X-RAY L-S SPINE AP/LATERAL Angelica De Anda APRN.MUSEUM INFORMATICS SPECIALIST [address] [place] [address] [place] [address] Referral ID Status Reason Start Date Expiration Date V isits Requested Visits Authorized Closed Auto-Generate d Referral 01/06/2021 02/05/2022 1 1 [facility] for referral (narrative)No reason for referral information [facility] Phone: [facility] Narrative* Diagnostic Procedure Only (Routine) - Closed Specialty Diagnoses / Procedures Referred By Contac t Referred To Contact XR IMAGING Diagnoses Acute pain of left knee Procedures XR KNEE GENERAL 4V AP BOTH/PA BOTH/LAT/MERC LT KNEE AP-WGT/LAT/JAYNET Bella Santos MD [address] [place] [address] [place] [address] Referral ID Status Reason Start Date Expiration Date V isits Requested Visits Authorized [id number] Closed Auto-Generate d Referral 03/02/2021 04/01/2022 1 1 [facility] for visit Narrative* Diagnostic Procedure Only (Urgent) - Closed Specialty Diagnoses / Procedures Referred By Contac t Referred To Contact XR IMAGING Diagnoses Acute left-sided low back pain without sciatica Procedures XR LUMBAR GENERAL 3V AP/LAT/L5-S1 X-RAY L-S SPINE AP/LATERAL Angelica De Anda APRN.MUSEUM INFORMATICS SPECIALIST [address] [place] [address] [place] [address] Referral ID Status Reason Start Date Expiration Date V isits Requested Visits Authorized Closed Auto-Generate d Referral 01/06/2021 02/05/2022 1 1 [facility] N[facility]* MRI/CT (Routine) - Closed Specialty Diagnoses / Procedures Referred By Contac t Referred To Contact MR IMAGING Diagnoses Chronic left-sided low back pain without sciatica Procedures MRI LUMBAR SPINE WO IVCON MRI SPINAL CANAL LUMBAR W/O CONTRAST MATERIAL Bella Santos MD [address] [place] [address] Phone: tel: fax: [place] [address] Referral ID Status Reason Start Date Expiration Date V isits Requested Visits Authorized [id number] Closed Auto-Generate d Referral 10/15/2024 11/14/2025 1 1 [facility] Summary Purpose Family History Relationship Condition Age at Onset Recorded Date/T wen Unknown Family History?Cancer, - Unknown Nov 12:44pm Family History?Hypertension Unknown November 27, 2019 1:05pm Relationship Condition Age at Onset Recorded Date/T wen Unknown Family History?Cancer, - Unknown Nov 1:44pm Family History?Hypertension Unknown November 27, 2019 2:05pm Relationship Condition Age at Onset Recorded Date/T wen father Hypertension Unknown mother Malignant neoplasm Unknown Calculus of kidney Unknown Advance Directives Documents on File Type Date Recorded Patient Pressure Test Operator Expl anation Advance Directive(s) 06/05/2019 11:20 AM Advance Directive(s) 06/02/2019 9:26 AM Advance Directive(s) 02/15/2019 7:32 AM Advance Directive(s) 02/02/2019 2:43 PM Advance Directive Response Recorded Date/ Time Advance Directives Yes December 1:16pm Living Will No June 15 023 10:08pm Power of Power Wheelchair Mechanic No June 15, 2022 10:08pm Advance Directive Response Recorded Date/ Time Advance Directives Yes December 2:16pm Living Will No June 15 023 11:08pm Power of Power Wheelchair Mechanic No June 15, 2022 11:08pm Advance Directive Response Recorded Date/ Time Advance Directives Yes December 1:16pm Living Will Yes April 23 023 9:27am Power of Power Wheelchair Mechanic Yes April 23, 2023 9:27am Name of Medical Power of Power Wheelchair Mechanic bharat loaiza or estrella hoff April 23, 2023 9:27am Advance Directive Response Recorded Date/ Time Name of Medical Power of Power Wheelchair Mechanic bharat loaiza or estrella hoff April 23, 2023 9:27am Name of Medical Power of Power Wheelchair Mechanic Sammie Hoff May 05, 2023 8:53pm Advance Directives Yes December 1:16pm Living Will Yes May 05 8:53pm Power of Power Wheelchair Mechanic Yes May 05, 2023 8:53pm Advance Directive Response Recorded Date/ Time Name of Medical Power of Power Wheelchair Mechanic bharat loaiza or estrella hoff April 23, 2023 9:27am Name of Medical Power of Power Wheelchair Mechanic Sammie Hoff May 05, 2023 8:53pm Name of Medical Power of Power Wheelchair Mechanic . June 02, 2023 4:29pm Advance Directives Yes December 1:16pm Living Will Yes June 02 4:29pm Power of Power Wheelchair Mechanic Yes June 02, 2023 4:29pm Advance Directive Response Recorded Date/ Time Advance Directives Yes December 2:16pm Hospital Course Note HNO ID: [id number] Author: Trent Moseley) Samples Service: Cardiac Surgery Author Type: Physician Retail Loan Originator Type: Discharge Summary Filed: 06/11/2019 12:11 PM Note Text: Attestation signed by Nj Turner at 06/11/2019 2:37 PM Attending Note I have personally performed a face to face assessment of the patient and have reviewed the ROBERTO CARLOS/STATE EPIDEMIOLOGIST note. Signature: Nj Turner MD Date: 06/11/2019 Time: 2:37 PM DISCHARGE SUMMARY PATIENT NAME: Jocelyn Loaiza ADMISSION DATE: 06/05/2019 DISCHARGE DATE: 06/11/2019 Attending Physician: Nj Turner Code Status: Not on file Highest Readmission Risk Score: 12 The 30 day readmissions risk score is derived from an internally validated risk model which evaluates patient level characteristics, utilization history, medication orders and lab results up until the day of discharg (more content not included)... Note HNO ID: [id number] Author: Navjot Turner Service: Cardiac Surgery Author Type: Physician Type: Brief Op Note Filed: 06/06/2019 2:00 PM Note Text: BRIEF OPERATIVE / PROCEDURE NOTE LOG ID: [id number] SURGERY/PROCEDURE DATE: 06/06/2019 INCISION/PROCEDURE START TIME: 9:21 AM INCISION CLOSE/PROCEDURE END TIME: SURGEON(S)/PROCEDURALIST(S) AND FENCE MAKING MACHINE OPERATOR(S): Surgeon(s) and Role: * Nj Turner - Primary Physician Retail Loan Originator: Feliberto Escalante (Pa)-Brittany) Regan Mora (Roberto Carlos-C) Jesus Alberto SURGERY/PROCEDURE(S): cabgx3 ANESTHESIA: General FINDINGS: none ESTIMATED BLOOD LOSS: 200mls SPECIMENS: None COMPLICATIONS: None PRE-OP/PRE-PROCEDURE DIAGNOSIS: cad POST-OP/POST-PROCEDURE DIAGNOSIS: cad SIGNATURE: Nj Turner MD PATIENT NAME: Jocelyn Loaiza DATE: June 06, 2019 TIME: 2:00 PM PAGER/CONTACT #: Note HNO ID: [id number] Author: Bethany roberts (Vendette) [place] Service: Hospital Medicine Author Type: Nurse Practitioner Type: Discharge Summary Filed: 06/02/2019 11:38 AM Note Text: Attestation signed by Hank Hidalgo at 06/02/2019 4:17 PM Discussed with provider below and I agree with her discharge documentation. Hank Hidalgo MD DISCHARGE SUMMARY PATIENT NAME: Jocelyn Loaiza Code Status: Not on file Highest [...] not included)... Procedure Findings Note HNO ID: [id number] Author: Navjot Turner Service: Cardiac Surgery Author Type: Physician Type: Brief Op Note Filed: 06/06/2019 2:00 PM Note Text: BRIEF OPERATIVE / PROCEDURE NOTE LOG ID: [id number] SURGERY/PROCEDURE DATE: 06/06/2019 INCISION/PROCEDURE START TIME: 9:21 AM INCISION CLOSE/PROCEDURE END TIME: SURGEON(S)/PROCEDURALIST(S) AND FENCE MAKING MACHINE OPERATOR(S): Surgeon(s) and Role: * Nj Turner - Primary Physician Retail Loan Originator: Feliberto Soliz (Pa) (Roberto Carlos-Brittany) Regan Mora (Roberto Carlos-Brittany) Jesus Alberto SURGERY/PROCEDURE(S): cabgx3 ANESTHESIA: General FINDINGS: none ESTIMATED BLOOD LOSS: 200mls SPECIMENS: None COMPLICATIONS: None PRE-OP/PRE-PROCEDURE DIAGNOSIS: cad POST-OP/POST-PROCEDURE DIAGNOSIS: cad SIGNATURE: Nj Turner MD PATIENT NAME: Jocelyn Loaiza DATE: June 06, 2019 TIME: 2:00 PM PAGER/CONTACT #: Reason for Referral Specialty Diagnoses / Procedures Referred By Haily t Referred To Contact Podiatry Diagnoses 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 60-74 MINUTES Bella Santos MD [address] [place] [address] Referral ID Status Reason Start Date Expiration Date Visits Requested Visits Authorized [id number] Pending Review PCP Requested Referral 05/06/2022 05/06/2023 1 1 Specialty Diagnoses / Procedures Referred By Contac t Referred To Contact Orthopedics Diagnoses Right knee pain, unspecified chronicity Procedures CONSULT TO ORTHOPAEDICS OFFICE/OUTPATIENT [facility] 60-74 MINUTES Bella Santos MD [address] [place] [address] Referral ID Status Reason Start Date Expiration Date Visits Requested Visits Authorized [id number] Pending Review PCP Requested Referral 05/17/2022 05/17/2023 1 1 Chief Complaint and Reason for Visit Chief Complaint R KNEE RX HERE KNEE INJURY Chief Complaint KNEE INJURY R KNEE RX HERE SPINAL STENOSIS RX HERE Chief Complaint palpitation Chief Complaint palpitation chest pain CHEST PAIN CHEST PAIN CHEST PAIN CHEST PAIN Reason for Visit Afib Anticoagulant long-term use Exertional angina Hyperlipidemia CAD (coronary artery disease) Hypertension Chief Complaint palpitation chest pain CHEST PAIN CHEST PAIN CHEST PAIN CHEST PAIN palpitations, SOB Reason for Visit Afib Anticoagulant long-term use Exertional angina Hyperlipidemia CAD (coronary artery disease) Hypertension Chief Complaint Admit Date Gross hematuria October 31, 2024 12:47 pm LOW BACK PAIN. RX HERE October 31, 2024 3: 30pm Chief Complaint Admit Date Gross hematuria October 31, 2024 12:47 pm LOW BACK PAIN. RX HERE November 15, 2024 1 1:30am Additional Source Comments (unrecognized sect ion and content) No Status Records FoundNo Status Records FoundNo Status Records FoundNo Status Records Found INFORMATION SOURCE (unrecogn ized section and content) DATE CREATED AUTHOR 06/18/2019 [facility] DATE CREATED AUTHOR AUTHOR'S ORGANIZ ATION 04/03/2020 [facility] DATE CREATED AUTHOR AUTHOR'S ORGANIZ ATION 11/16/2024 [facility] DATE CREATED AUTHOR AUTHOR'S ORGANIZ ATION 12/19/2024 [facility] Source Comments (unrecognize d section and content) In the event this informatio n is protected by the Federal Confidentiality of Alcohol and Drug Abuse Patient Records regulations: The Federal rules restrict any use of the information to criminally investigate or prosecute any alcohol or drug abuse patient.[facility] the event this information is protected by the Federal Confidentiality of Alcohol and Drug Abuse Patient Records regulations: The Federal rules restrict any use of the information to criminally investigate or prosecute any alcohol or drug abuse patient.[facility] the event this information is protected by the Federal Confidentiality of Alcohol and Drug Abuse Patient Records regulations: The Federal rules restrict any use of the information to criminally investigate or prosecute any alcohol or drug abuse patient.[facility] the event this information is protected by the Federal Confidentiality of Alcohol and Drug Abuse Patient Records regulations: The Federal rules restrict any use of the information to criminally investigate or prosecute any alcohol or drug abuse patient.[facility] the event this information is protected by the Federal Confidentiality of Alcohol and Drug Abuse Patient Records regulations: The Federal rules restrict any use of the information to criminally investigate or prosecute any alcohol or drug abuse patient.[facility] the event this information is protected by the Federal Confidentiality of Alcohol and Drug Abuse Patient Records regulations: The Federal rules restrict any use of the information to criminally investigate or prosecute any alcohol or drug abuse patient.[facility] Hospital[facility] the event this information is protected by the Federal Confidentiality of Alcohol and Drug Abuse Patient Records regulations: The Federal rules restrict any use of the information to criminally investigate or prosecute any alcohol or drug abuse patient.[facility] the event this information is protected by the Federal Confidentiality of Alcohol and Drug Abuse Patient Records regulations: The Federal rules restrict any use of the information to criminally investigate or prosecute any alcohol or drug abuse patient.[facility] the event this information is protected by the Federal Confidentiality of Alcohol and Drug Abuse Patient Records regulations: The Federal rules restrict any use of the information to criminally investigate or prosecute any alcohol or drug abuse patient.[facility] the event this information is protected by the Federal Confidentiality of Alcohol and Drug Abuse Patient Records regulations: The Federal rules restrict any use of the information to criminally investigate or prosecute any alcohol or drug abuse patient.[facility] Hospital[facility] the event this information is protected by the Federal Confidentiality of Alcohol and Drug Abuse Patient Records regulations: The Federal rules restrict any use of the information to criminally investigate or prosecute any alcohol or drug abuse patient.[facility] the event this information is protected by the Federal Confidentiality of Alcohol and Drug Abuse Patient Records regulations: The Federal rules restrict any use of the information to criminally investigate or prosecute any alcohol or drug abuse patient.[facility] Hospital[facility] the event this information is protected by the Federal Confidentiality of Alcohol and Drug Abuse Patient Records regulations: The Federal rules restrict any use of the information to criminally investigate or prosecute any alcohol or drug abuse patient.[facility] HospitalIn the event this information is protected by the Federal Confidentiality of Alcohol and Drug Abuse Patient Records regulations: The Federal rules restrict any use of the information to criminally investigate or prosecute any alcohol or drug abuse patient.[facility] Hospital[facility] the event this information is protected by the Federal Confidentiality of Alcohol and Drug Abuse Patient Records regulations: The Federal rules restrict any use of the information to criminally investigate or prosecute any alcohol or drug abuse patient.[facility] HospitalIn the event this information is protected by the Federal Confidentiality of Alcohol and Drug Abuse Patient Records regulations: The Federal rules restrict any use of the information to criminally investigate or prosecute any alcohol or drug abuse patient.[facility] HospitalIn the event this information is protected by the Federal Confidentiality of Alcohol and Drug Abuse Patient Records regulations: The Federal rules restrict any use of the information to criminally investigate or prosecute any alcohol or drug abuse patient.[facility] HospitalIn the event this information is protected by the Federal Confidentiality of Alcohol and Drug Abuse Patient Records regulations: The Federal rules restrict any use of the information to criminally investigate or prosecute any alcohol or drug abuse patient.[facility] HospitalIn the event this information is protected by the Federal Confidentiality of Alcohol and Drug Abuse Patient Records regulations: The Federal rules restrict any use of the information to criminally investigate or prosecute any alcohol or drug abuse patient.[facility] HospitalIn the event this information is protected by the Federal Confidentiality of Alcohol and Drug Abuse Patient Records regulations: The Federal rules restrict any use of the information to criminally investigate or prosecute any alcohol or drug abuse patient.[facility] HospitalIn the event this information is protected by the Federal Confidentiality of Alcohol and Drug Abuse Patient Records regulations: The Federal rules restrict any use of the information to criminally investigate or prosecute any alcohol or drug abuse patient.[facility] HospitalIn the event this information is protected by the Federal Confidentiality of Alcohol and Drug Abuse Patient Records regulations: The Federal rules restrict any use of the information to criminally investigate or prosecute any alcohol or drug abuse patient.[facility] HospitalIn the event this information is protected by the Federal Confidentiality of Alcohol and Drug Abuse Patient Records regulations: The Federal rules restrict any use of the information to criminally investigate or prosecute any alcohol or drug abuse patient.[facility] HospitalIn the event this information is protected by the Federal Confidentiality of Alcohol and Drug Abuse Patient Records regulations: The Federal rules restrict any use of the information to criminally investigate or prosecute any alcohol or drug abuse patient.[facility] HospitalIn the event this information is protected by the Federal Confidentiality of Alcohol and Drug Abuse Patient Records regulations: The Federal rules restrict any use of the information to criminally investigate or prosecute any alcohol or drug abuse patient.[facility] HospitalIn the event this information is protected by the Federal Confidentiality of Alcohol and Drug Abuse Patient Records regulations: The Federal rules restrict any use of the information to criminally investigate or prosecute any alcohol or drug abuse patient.[facility] HospitalIn the event this information is protected by the Federal Confidentiality of Alcohol and Drug Abuse Patient Records regulations: The Federal rules restrict any use of the information to criminally investigate or prosecute any alcohol or drug abuse patient.[facility] HospitalIn the event this information is protected by the Federal Confidentiality of Alcohol and Drug Abuse Patient Records regulations: The Federal rules restrict any use of the information to criminally investigate or prosecute any alcohol or drug abuse patient.[facility] HospitalIn the event this information is protected by the Federal Confidentiality of Alcohol and Drug Abuse Patient Records regulations: The Federal rules restrict any use of the information to criminally investigate or prosecute any alcohol or drug abuse patient.[facility] HospitalIn the event this information is protected by the Federal Confidentiality of Alcohol and Drug Abuse Patient Records regulations: The Federal rules restrict any use of the information to criminally investigate or prosecute any alcohol or drug abuse patient.[facility] HospitalIn the event this information is protected by the Federal Confidentiality of Alcohol and Drug Abuse Patient Records regulations: The Federal rules restrict any use of the information to criminally investigate or prosecute any alcohol or drug abuse patient.[facility] HospitalIn the event this information is protected by the Federal Confidentiality of Alcohol and Drug Abuse Patient Records regulations: The Federal rules restrict any use of the information to criminally investigate or prosecute any alcohol or drug abuse patient.[facility] HospitalIn the event this information is protected by the Federal Confidentiality of Alcohol and Drug Abuse Patient Records regulations: The Federal rules restrict any use of the information to criminally investigate or prosecute any alcohol or drug abuse patient.[facility] HospitalIn the event this information is protected by the Federal Confidentiality of Alcohol and Drug Abuse Patient Records regulations: The Federal rules restrict any use of the information to criminally investigate or prosecute any alcohol or drug abuse patient.[facility] HospitalIn the event this information is protected by the Federal Confidentiality of Alcohol and Drug Abuse Patient Records regulations: The Federal rules restrict any use of the information to criminally investigate or prosecute any alcohol or drug abuse patient.[facility] HospitalIn the event this information is protected by the Federal Confidentiality of Alcohol and Drug Abuse Patient Records regulations: The Federal rules restrict any use of the information to criminally investigate or prosecute any alcohol or drug abuse patient.[facility] HospitalIn the event this information is protected by the Federal Confidentiality of Alcohol and Drug Abuse Patient Records regulations: The Federal rules restrict any use of the information to criminally investigate or prosecute any alcohol or drug abuse patient.[facility] HospitalIn the event this information is protected by the Federal Confidentiality of Alcohol and Drug Abuse Patient Records regulations: The Federal rules restrict any use of the information to criminally investigate or prosecute any alcohol or drug abuse patient.[facility] HospitalIn the event this information is protected by the Federal Confidentiality of Alcohol and Drug Abuse Patient Records regulations: The Federal rules restrict any use of the information to criminally investigate or prosecute any alcohol or drug abuse patient.[facility] HospitalIn the event this information is protected by the Federal Confidentiality of Alcohol and Drug Abuse Patient Records regulations: The Federal rules restrict any use of the information to criminally investigate or prosecute any alcohol or drug abuse patient.[facility] HospitalIn the event this information is protected by the Federal Confidentiality of Alcohol and Drug Abuse Patient Records regulations: The Federal rules restrict any use of the information to criminally investigate or prosecute any alcohol or drug abuse patient.[facility] HospitalIn the event this information is protected by the Federal Confidentiality of Alcohol and Drug Abuse Patient Records regulations: The Federal rules restrict any use of the information to criminally investigate or prosecute any alcohol or drug abuse patient.[facility] HospitalIn the event this information is protected by the Federal Confidentiality of Alcohol and Drug Abuse Patient Records regulations: The Federal rules restrict any use of the information to criminally investigate or prosecute any alcohol or drug abuse patient.[facility] HospitalIn the event this information is protected by the Federal Confidentiality of Alcohol and Drug Abuse Patient Records regulations: The Federal rules restrict any use of the information to criminally investigate or prosecute any alcohol or drug abuse patient.[facility] HospitalIn the event this information is protected by the Federal Confidentiality of Alcohol and Drug Abuse Patient Records regulations: The Federal rules restrict any use of the information to criminally investigate or prosecute any alcohol or drug abuse patient.[facility] HospitalIn the event this information is protected by the Federal Confidentiality of Alcohol and Drug Abuse Patient Records regulations: The Federal rules restrict any use of the information to criminally investigate or prosecute any alcohol or drug abuse patient.[facility] HospitalIn the event this information is protected by the Federal Confidentiality of Alcohol and Drug Abuse Patient Records regulations: The Federal rules restrict any use of the information to criminally investigate or prosecute any alcohol or drug abuse patient.[facility] HospitalIn the event this information is protected by the Federal Confidentiality of Alcohol and Drug Abuse Patient Records regulations: The Federal rules restrict any use of the information to criminally investigate or prosecute any alcohol or drug abuse patient.[facility] HospitalIn the event this information is protected by the Federal Confidentiality of Alcohol and Drug Abuse Patient Records regulations: The Federal rules restrict any use of the information to criminally investigate or prosecute any alcohol or drug abuse patient.[facility] HospitalIn the event this information is protected by the Federal Confidentiality of Alcohol and Drug Abuse Patient Records regulations: The Federal rules restrict any use of the information to criminally investigate or prosecute any alcohol or drug abuse patient.[facility] HospitalIn the event this information is protected by the Federal Confidentiality of Alcohol and Drug Abuse Patient Records regulations: The Federal rules restrict any use of the information to criminally investigate or prosecute any alcohol or drug abuse patient.[facility] HospitalIn the event this information is protected by the Federal Confidentiality of Alcohol and Drug Abuse Patient Records regulations: The Federal rules restrict any use of the information to criminally investigate or prosecute any alcohol or drug abuse patient.[facility] HospitalIn the event this information is protected by the Federal Confidentiality of Alcohol and Drug Abuse Patient Records regulations: The Federal rules restrict any use of the information to criminally investigate or prosecute any alcohol or drug abuse patient.[facility] HospitalIn the event this information is protected by the Federal Confidentiality of Alcohol and Drug Abuse Patient Records regulations: The Federal rules restrict any use of the information to criminally investigate or prosecute any alcohol or drug abuse patient.[facility] HospitalIn the event this information is protected by the Federal Confidentiality of Alcohol and Drug Abuse Patient Records regulations: The Federal rules restrict any use of the information to criminally investigate or prosecute any alcohol or drug abuse patient.[facility] HospitalIn the event this information is protected by the Federal Confidentiality of Alcohol and Drug Abuse Patient Records regulations: The Federal rules restrict any use of the information to criminally investigate or prosecute any alcohol or drug abuse patient.[facility] HospitalIn the event this information is protected by the Federal Confidentiality of Alcohol and Drug Abuse Patient Records regulations: The Federal rules restrict any use of the information to criminally investigate or prosecute any alcohol or drug abuse patient.[facility] HospitalIn the event this information is protected by the Federal Confidentiality of Alcohol and Drug Abuse Patient Records regulations: The Federal rules restrict any use of the information to criminally investigate or prosecute any alcohol or drug abuse patient.[facility] Reason for Visit (unrecogniz ed section and content) Reason Comments Appointment Reason Comments Follow Up Hypertension Reason Comments [...] 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 60-74 MINUTES Bella Santos MD [address] [place] [address] Referral ID Status Reason Start Date Expiration Date Visits Requested Visits Authorized [id number] Pending Review PCP Requested Referral 05/06/2022 05/06/2023 1 1 Reason Onset Date Comments Refill Request 08/23/2022 Reason Comments Covid Positive Reason Comments F/U 6 Month Reason Comments ED Follow-up Reason Comments Medication Problem Heart palpitations Reason Comments Results Reason Comments Patient Update Reason Comments F/U 3 Month Reason Comments Follow Up Reason Onset Date Comments Transition Of Care 03/23/2024 Reason Comments Transition Of Care Hospital follow up Reason Onset Date Comments Refill Request 04/16/2024 Reason Comments Recheck ER visit in Dec for CP, SOB no change in meds Reason Comments New Plantar wart Specialty Diagnoses / Procedures Referred By Haily shannon Referred To Contact Podiatry Diagnoses Plantar wart Procedures CONSULT TO PODIATRY OFFICE/OUTPATIENT [facility] 60 MINUTES Bella Santos MD [address] [place] [address] Phone: tel: fax: Referral ID Status Reason Start Date Expiration Date V isits Requested Visits Authorized [id number] Closed PCP Requested Referral 06/11/2024 06/11/2025 1 1 Reason Comments Established Patient Follow Up Wart Itching Reason Comments Established Patient Follow Up Wart Reason Comments Follow Up 1 month follow up wa rt right foot Reason Comments Back Pain Reason Onset Date Comments Refill Request 10/16/2024 Reason Onset Date Comments Refill Request 10/28/2024 Care Teams (unrecognized sec tion and content) Offal Separator Relationship Specialty Start Date End Date Bella Santos MD [address] [facility] [place] [address] PCP - General Family Practice 01/15/19 Offal Separator Relationship Specialty Start Date End Date Bella Santos MD [address] [facility] [place] [address] PCP - General Family Practice 01/15/19 Offal Separator Relationship Specialty Start Date End Date Bella Santos MD [address] [facility] [place] [address] PCP - General Family Practice 01/15/19 Offal Separator Relationship Specialty Start Date End Date Bella Santos MD [address] [facility] [place] [address] PCP - General Family Practice 01/15/19 Offal Separator Relationship Specialty Start Date End Date Bella Santos MD [address] [facility] [place] [address] PCP - General Family Practice 01/15/19 Offal Separator Relationship Specialty Start Date End Date Bella Santos MD [address] [facility] [place] [address] PCP - General Family Practice 01/15/19 Offal Separator Relationship Specialty Start Date End Date Bella Santos MD [address] [facility] [place] [address] PCP - General Family Practice 01/15/19 Offal Separator Relationship Specialty Start Date End Date Bella Santos MD [address] [facility] [place] [address] PCP - General Family Medicine 01/15/19 Offal Separator Relationship Specialty Start Date End Date Bella Santos MD [address] [facility] [place] [address] PCP - General Family Medicine 01/15/19 Offal Separator Relationship Specialty Start Date End Date Bella Santos MD [address] [facility] [place] [address] PCP - General Family Medicine 01/15/19 Offal Separator Relationship Specialty Start Date End Date Bella Santos MD [address] [facility] [place] [address] PCP - General Family Medicine 01/15/19 Offal Separator Relationship Specialty Start Date End Date Bella Santos MD [address] [place] [address] PCP - General Family Medicine 01/15/19 Offal Separator Relationship Specialty Start Date End Date Bella Santos MD [address] [facility] [place] [address] PCP - General Family Medicine 01/15/19 Offal Separator Relationship Specialty Start Date End Date Bella Santos MD [address] [place] [address] PCP - General Family Medicine 01/15/19 Team Status: Active Member Role Status Dates Dr. Jes Toro MD Family Provider Active Dr. Bella Santos MD Primary Care Provider Active Team Status: Active Member Role Status Dates Dr. Bella Santos MD Primary Care Provider Active Dr. Gallo Toro MD Attending Provider, Lien sparrow Active Team Status: Inactive Member Role Status Dates Dr. Bella Santos MD Primary Care Provider Active Domingo Peña MD Emergency Provider Active Offal Separator Relationship Specialty Start Date End Date Bella Santos MD [address] [facility] [place] [address] PCP - General Family Medicine 01/15/19 Team Status: Inactive Member Role Status Dates Dr. Bella Santos MD Primary Care Provider Active Dr. Gallo Toro MD Attending Provider, Referring P rovider Active Team Status: Inactive Member Role Status Dates Dr. Bella Santos MD Primary Care Provider Active Domingo Peña MD Attending Provider, Emergency Provid er Active Team Status: Active Member Role Status Dates Dr. Bella Santos MD Primary Care Provider Active Dr. Jay Mendiola DO Attending Provider, Referring P rovider Active Offal Separator Relationship Specialty Start Date End Date Bella Santos MD [address] [place], [place] [address] PCP - General Family Medicine 01/15/19 Offal Separator Relationship Specialty Start Date End Date Bella Santos MD [address] [place], [place] [address] PCP - General Family Medicine 01/15/19 Team Status: Inactive Member Role Status Dates Dr. Bella Santos MD Primary Care Provider Active Dr. Philipp Morales DO Emergency Provider Active Team Status: Active Member Role Status Dates Dr. Bella Santos MD Primary Care Provider Active Dr. Km Cosme MD Emergency Provider Active Dr. Sammie Clarke MD Attending Provider Active Team Status: Active Member Role Status Dates Dr. Bella Santos MD Primary Care Provider Active Dr. Km Cosme MD Emergency Provider Active Dr. Sammie Clarke MD Admit Provider, Other Provider Active Dr. Archie Sanders MD Other Provider Active Dr. Drake House MD Attending Provider, Other Provid er Active Team Status: Active Member Role Status Dates Dr. Bella Santos MD Primary Care Provider Active Dr. Km Cosme MD Emergency Provider Active Dr. Sammie Clarke MD Admit Provider, Other Provider Active Dr. Archie Sanders MD Attending Provider, Other Provide r Active Dr. Drake House MD Other Provider Active Team Status: Inactive Member Role Status Dates Dr. Bella Santos MD Primary Care Provider Active Dr. Philipp Morales DO Attending Provider, Emergency Provide r Active Team Status: Inactive Member Role Status Dates Dr. Bella Santos MD Primary Care Provider Active Dr. Km Cosme MD Emergency Provider Active Dr. Sammie Clarke MD Admit Provider, Other Provider Active Dr. Archie Sanders MD Other Provider Active Dr. Drake House MD Attending Provider Active Offal Separator Relationship Specialty Start Date End Date Bella Santos MD [address] [facility] [place] [address] PCP - General Family Medicine 01/15/19 Offal Separator Relationship Specialty Start Date End Date Bella Santos MD [address] [facility] [place] [address] PCP - General Family Medicine 01/15/19 Team Status: Inactive Member Role Status Dates Dr. Bella Santos MD Primary Care Provider Active Dr. Ezequiel Blas DO Emergency Provider Active Offal Separator Relationship Specialty Start Date End Date Bella Santos MD [address] [facility] [place] [address] PCP - General Family Medicine 01/15/19 Offal Separator Relationship Specialty Start Date End Date Bella Santos MD [address] [facility] [place] [address] PCP - General Family Medicine 01/15/19 Offal Separator Relationship Specialty Start Date End Date Bella Santos MD [address] [facility] [place] [address] PCP - General Family Medicine 01/15/19 Offal Separator Relationship Specialty Start Date End Date Bella Santos MD [address] [facility] [place] [address] PCP - General Family Medicine 01/15/19 Offal Separator Relationship Specialty Start Date End Date Bella Santos MD [address] [facility] [place] [address] PCP - General Family Medicine 01/15/19 Offal Separator Relationship Specialty Start Date End Date Bella Santos MD [address] [place] [address] PCP - General Family Medicine 01/15/19 Offal Separator Relationship Specialty Start Date End Date Bella Santos MD [address] [place] [address] PCP - General Family Medicine 01/15/19 Offal Separator Relationship Specialty Start Date End Date Bella Santos MD [address] [place] [address] PCP - General Family Medicine 01/15/19 Offal Separator Relationship Specialty Start Date End Date Bella Santos MD [address] [place] [address] PCP - General Family Medicine 01/15/19 Offal Separator Relationship Specialty Start Date End Date Bella Santos MD [address] [place] [address] PCP - General Family Medicine 01/15/19 Offal Separator Relationship Specialty Start Date End Date Bella Santos MD [address] [place] [address] PCP - General Family Medicine 01/15/19 Offal Separator Relationship Specialty Start Date End Date Bella Santos MD [address] [place] [address] PCP - General Family Medicine 01/15/19 Yazmin Linda APRN.CNP [address] [place] [address] Spectrographic Analyst Family Medicine 04/01/24 Offal Separator Relationship Specialty Start Date End Date Bella Santos MD [address] [place] [address] PCP - General Family Medicine 01/15/19 Yazmin Linda APRN.MUSEUM INFORMATICS SPECIALIST [address] [place] [address] Spectrographic Analyst Family Medicine 04/01/24 Magen Gilman APRN.MUSEUM INFORMATICS SPECIALIST [address] [place] [address] [facility] 04/10/24 Offal Separator Relationship Specialty Start Date End Date Bella Santos MD [address] [place] [address] PCP - General Family Medicine 01/15/19 Yazmin Linda APRN.MUSEUM INFORMATICS SPECIALIST [address] [place] [address] Spectrographic Analyst Family Medicine 04/01/24 Magen Gilman APRN.MUSEUM INFORMATICS SPECIALIST [address] [place] [address] Spectrographic Analyst Family Medicine 04/10/24 Offal Separator Relationship Specialty Start Date End Date Bella Santos MD [address] [place] [address] PCP - General Family Medicine 01/15/19 Yazmin Linda APRN.MUSEUM INFORMATICS SPECIALIST [address] [place] [address] Spectrographic Analyst Family Medicine 04/01/24 Magen Gilman APRN.MUSEUM INFORMATICS SPECIALIST [address] [facility] [place] [address] Spectrographic Analyst [facility] Medicine 04/10/24 Offal Separator Relationship Specialty Start Date End Date Bella Santos MD [address] [facility] [place] [address] PCP - General Family Medicine 01/15/19 Yazmin Linda APRN.MUSEUM INFORMATICS SPECIALIST [address] [facility] [place] [address] Spectrographic Analyst Family Medicine 04/01/24 Magen Gilman APRN.MUSEUM INFORMATICS SPECIALIST [address] [facility] [place] [address] [facility] 04/10/24 Offal Separator Relationship Specialty Start Date End Date Bella Santos MD [address] [facility] [place] [address] PCP - General Family Medicine 01/15/19 Yazmin Linda APRN.MUSEUM INFORMATICS SPECIALIST [address] [facility] [place] [address] Spectrographic Analyst Family Medicine 04/01/24 Magen Gilman APRN.MUSEUM INFORMATICS SPECIALIST [address] [facility] [place] [address] Spectrographic Analyst Family Medicine 04/10/24 Offal Separator Relationship Specialty Start Date End Date Bella Santos MD [address] [facility] [place] [address] PCP - General Family Medicine 01/15/19 Yazmin Linda APRN.MUSEUM INFORMATICS SPECIALIST [address] [facility] [place] [address] Spectrographic Analyst Family Medicine 04/01/24 Magen Gilman APRN.MUSEUM INFORMATICS SPECIALIST [address] [facility] [place] [address] Spectrographic Analyst Family Medicine 04/10/24 Offal Separator Relationship Specialty Start Date End Date Bella Santos MD [address] [facility] [place] [address] PCP - General Family Medicine 01/15/19 Yazmin Linda APRN.MUSEUM INFORMATICS SPECIALIST [address] [facility] [place] [address] Spectrographic Analyst Family Medicine 04/01/24 Magen Gilman APRN.MUSEUM INFORMATICS SPECIALIST [address] [facility] [place] [address] Spectrographic Analyst Family Medicine 04/10/24 Offal Separator Relationship Specialty Start Date End Date Bella Santos MD [address] [facility] [place] [address] PCP - General Family Medicine 01/15/19 Yazmin Linda APRN.MUSEUM INFORMATICS SPECIALIST [address] [facility] [place] [address] Spectrographic Analyst Family Medicine 04/01/24 Magen Gilman APRN.MUSEUM INFORMATICS SPECIALIST [address] [facility] [place] [address] Spectrographic Analyst Family Medicine 04/10/24 Offal Separator Relationship Specialty Start Date End Date Bella Santos MD [address] [place] [address] PCP - General Family Medicine 01/15/19 Yazmin Linda APRN.MUSEUM INFORMATICS SPECIALIST [address] [place] [address] Spectrographic Analyst Family Medicine 04/01/24 Magen Gilman APRN.MUSEUM INFORMATICS SPECIALIST [address] [place] [address] Spectrographic Analyst Family Medicine 04/10/24 Offal Separator Relationship Specialty Start Date End Date Bella Santos MD [address] [place] [address] PCP - General Family Medicine 01/15/19 Yazmin Linda APRN.MUSEUM INFORMATICS SPECIALIST [address] [place] [address] Spectrographic Analyst Family Medicine 04/01/24 Magen Gilman APRN.MUSEUM INFORMATICS SPECIALIST [address] [place] [address] [facility] 04/10/24 Offal Separator Relationship Specialty Start Date End Date Bella Santos MD [address] [place] [address] PCP - General Family Medicine 01/15/19 Yazmin Linda [employer] LOAN OFFICER.MUSEUM INFORMATICS SPECIALIST [address] [place] [address] [facility] 04/01/24 Magen Gilman APRN.MUSEUM INFORMATICS SPECIALIST [address] [place] [address] [facility] 04/10/24 Offal Separator Relationship Specialty Start Date End Date Bella Santos MD [address] [place] [address] PCP - General Family Medicine 01/15/19 Magen Gilman APRN.MUSEUM INFORMATICS SPECIALIST [address] [place] [address] [facility] 04/10/24 Offal Separator Relationship Specialty Start Date End Date Bella Santos MD [address] [place] [address] PCP - General Family Medicine 01/15/19 Magen Gilman APRN.MUSEUM INFORMATICS SPECIALIST [address] [place] [address] [facility] 04/10/24 Offal Separator Relationship Specialty Start Date End Date Bella Santos MD [address] [place] [address] PCP - General Family Medicine 01/15/19 Magen Gilman APRN.MUSEUM INFORMATICS SPECIALIST [address] [place] [address] [facility] 04/10/24 Offal Separator Relationship Specialty Start Date End Date Bella Santos MD [address] [place] [address] PCP - General Family Medicine 01/15/19 Magen Gilman APRN.MUSEUM INFORMATICS SPECIALIST [address] [place] [address] [facility] 04/10/24 Offal Separator Relationship Specialty Start Date End Date Bella Santos MD [address] [facility] [place], [place] [address] PCP - General Family Medicine 01/15/19 Magen Gilman APRN.MUSEUM INFORMATICS SPECIALIST [address] [facility] [place] [address] [facility] 04/10/24 Team Status: Active Member Role/Relationship Status Dates Dr. Bella Santos MD Primary Care Provider Active Team Status: Inactive Member Role/Relationship Status Dates Dr. Bella Santos MD Primary Care Provider Active Start: October 31, 2024 End: October 31, 2024 Dr. Kiran Shaffer MD Attending Provider Active Start: October 31, 2024 End: October 31, 2024 Dr. Kiran Shaffer MD Referring Provider Active Start: October 31, 2024 End: October 31, 2024 Team Status: Active Member Role/Relationship Status Dates Dr. Bella Santos MD Primary Care Provider Active Start: October 31, 2024 Dr. Bella Santos MD Attending Provider Active Start: October 31, 2024 Dr. Bella Santos MD Referring Provider Active Start: October 31, 2024 Team Status: Inactive Member Role/Relationship Status Dates Dr. Bella Santos MD Primary Care Provider Active Start: November 15, 2024 End: November 15, 2024 Dr. Bella Santos MD Attending Provider Active Start: November 15, 2024 End: November 15, 2024 Dr. Bella Santos MD Referring Provider Active Start: November 15, 2024 End: November 15, 2024 Offal Separator Relationship Specialty Start Date End Date Bella Santos MD [address] [facility] [place], [place] [address] PCP - General Family Medicine 01/15/19 Magen Gilman APRN.MUSEUM INFORMATICS SPECIALIST [address] [facility] [place], [place] [address] [facility] 04/10/24 Offal Separator Relationship Specialty Start Date End Date Bella Santos MD [address] [place] [address] PCP - General Family Medicine 01/15/19 Magen Gilman APRN.CNP [address] [place] [address] [facility] 04/10/24 Goals (unrecognized section and content) Goals may be documented in a n alternate sectionGoals may be documented in an alternate sectionGoals may be documented in an alternate sectionGoals may be documented in an alternate sectionGoals may be documented in an alternate sectionGoals may be documented in an alternate sectionGoals may be documented in an alternate section FOR RECORDS PERTAINING TO PATIENTS WHO ARE [...] BE BASED ON THE PRIMARY CLINICAL RECORDS. [employer] [facility]. provides no warranty or guarantee of the accuracy or completeness of information in this document.
[2024-12-22 01:52] VITALS: BP 140/60; PULSE 79; RESP 18; TEMP 36.7; O2SAT 98
== END 2024-12-22 01:52 | disposition home or self-care (01) ==
PROVIDERS: Emergency Provider Surgery; PCP Family Medicine; Visit Provider Surgery
DX: N39.0 Urinary tract infection, site not specified (principal); I48.91 Unspecified atrial fibrillation; I10 Essential (primary) hypertension; E78.5 Hyperlipidemia, unspecified; Z87.891 Personal history of nicotine dependence; I25.10 Atherosclerotic heart disease of native coronary artery without angina pectoris; R31.9 Hematuria, unspecified; Z79.01 Long term (current) use of anticoagulants; G47.33 Obstructive sleep apnea (adult) (pediatric); Z99.89 Dependence on other enabling machines and devices; N40.0 Benign prostatic hyperplasia without lower urinary tract symptoms; Z79.899 Other long term (current) drug therapy; Z79.82 Long term (current) use of aspirin
CPT/HCPCS: 80048; 81001; 85025; 87086; 99282; A4216